=== PATIENT | male | born 1945 | race Caucasian/White ===

== ENCOUNTER → 2023-09-20 | Outpatient (CLI) | payer MEDICARE, SELFPAY ==
[2023-09-20 10:26] LABS: Absolute Lymphocyte Count 2.02 X10^3/uL (0.83-4.51); Basophil# 0.06 X10^3/uL; Hematocrit 40.1 % (40-54); Hemoglobin 13.3 g/dL (13.0-16.5); Lymphocyte # 2.02 X10^3/ul (0.83-4.51); Lymphocyte % 33.8 % (19-41); Mean Corp Hgb Conc 33.2 g/dL (32-36); Mean Corpuscular Hgb 30.3 pg (27.0-32.0); Mean Corpuscular Volume 91.3 fL (80-94); Mean Platelet Vol. 10.9 fl (6.2-12.0); Monocyte# 0.63 X10^3/uL; Monocyte% 10.6 % (0-10); NRBC Flagged by Analyzer 0 % (0-5); Neutrophil # 2.95 X10^3/uL (2.7-7.7); Neutrophil % 49.4 % (47-70); Platelet Count 233 K/mm3 (150-450); RBC Distribution Width SD 43.6 fl (35.1-43.9); Red Blood Count 4.39 M/mm3 (4.6-6.2)
[2023-09-20 10:44] LABS: ALB/GLOB Ratio 1.1 RATIO (0.9-2.4); AST(SGOT) 15 U/L (15-37); Alanine Aminotransfer ALT/SGPT 11 U/L (16-61); Albumin, Serum 3.6 g/dL (3.2-5.0); Alkaline Phosphatase 68 U/L (45-117); Anion Gap 6 (5-15); BUN 14 mg/dL (7-18); BUN/Creat Ratio 12.8 RATIO (10-20); Calcium,Total 8.8 mg/dL (8.5-10.1); Chloride 104 mmol/L (98-107); Cholesterol 173 mg/dL (200); Creatinine, Serum 1.09 mg/dL (0.70-1.30); EST Glomerular Filtration Rate 69 mL/min (>60); Est Glom Filt Rate - Afr Amer 84 mL/min (>60); Globulin 3.3 g/dL (2.2-4.2); Glucose 102 mg/dL (74-106); High Density Lipoprotein 45 mg/dL; PSA,Total - Annual Screen 1.64 ng/mL (0.00-4.00); Protein, Total 6.9 g/dL (6.4-8.2); Sodium Level 134 mmol/L (136-145); T4 Free Direct 1.22 ng/dL (0.76-1.46); Thyroid Stim Hormone (TSH) 2.43 uIU/mL (0.358-3.74); Triglycerides 90 mg/dL; Very Low Density Lipoprotein 18 mg/dL (5-40)
== END | disposition home or self-care (01) ==
LOC: MFPLAB 08:13
PROVIDERS: PCP Family Medicine; Visit Provider Family Medicine
DX: K21.9 Gastro-esophageal reflux disease without esophagitis (principal); G20.C Parkinsonism, unspecified; E03.9 Hypothyroidism, unspecified; N40.0 Benign prostatic hyperplasia without lower urinary tract symptoms; Z12.5 Encounter for screening for malignant neoplasm of prostate
CPT/HCPCS: 36415; 80053; 80061; 84153; 84439; 84443; 85025; G0103

== ENCOUNTER 2024-03-11 04:05 | Emergency (ER) | payer MEDICARE, SELFPAY ==
[2024-03-11 04:06] VITALS: BP 151/76; PULSE 66; RESP 18; TEMP 36; O2SAT 97; BMI 25.9
--- NOTE | 2024-03-11 04:51 | RAD_ITS ---
INDICATION: constipation EXAMINATION/TECHNIQUE: X-RAY - XR Abdomen Series W/ Chest 1 View COMPARISON: Abdominal x-ray 03/05/2024 FINDINGS: AP supine and upright views of the abdomen, and upright view of the chest. The bowel gas pattern is normal. There is no bowel obstruction or free intraperitoneal air. Moderate amount of stool throughout the colon, especially the left colon to the rectum. No abnormal mass or calcification is seen. Degenerative changes of the lumbar spine. The lungs are clear. Cardiac silhouette is normal size. RAD/Acute Abdomen Inc Chest IMPRESSION: No bowel obstruction. No infiltrates.. Electronically Signed: Lexie Rasmussen MD at 5:31 EDT ,
--- NOTE | 2024-03-11 06:19 | EDS_ITS ---
HPI History of Present Illness Chief Complaint: Constipation Informant: patient and spouse/S.O. Narrative Narrative: Patient is an 79-year-old male with past medical history of Parkinson's disease hypothyroidism BPH and chronic constipation. He is on Linzess and still takes lactulose 30 ml 3 times a day. He states he has been taking his medication as directed. He reports he used a salt water enema and was able to have a small bowel movement the other day. He states however that typically when he takes his lactulose he is able to have a bowel movement and as he has not been able to do so comes in for evaluation. He denies any history of intestinal cancer and he only reports 1 abdominal surgery with a ventral hernia repair a few years ago [facility] Medical History (Updated 03/11/24 @ 08:[address] Lamont Barrett, ) Celiac disease Home Medications ?Medication ?Instructions ?Recorded ?Last Taken ?Type bisacodyl 10 mg rectal suppository 10 mg MD DAILY PRN constipation 03/05/24 Unknown Rx (Dulcolax (bisacodyl)) #12 ea carbidopa ER 25 mg-levodopa 100 mg 1 tab PO TID 03/05/24 Unknown History tablet,extended release lactulose 10 gram/15 mL oral 30 ml PO TID 03/05/24 Unknown History solution levothyroxine 50 mcg tablet 50 mcg PO QDAY 03/05/24 Unknown History linaclotide 145 mcg capsule 290 mcg PO QDAY 03/05/24 Unknown History (Linzess) magnesium citrate 125 mg capsule 125 mg PO ONCE #2 caps 03/05/24 Unknown Rx omeprazole 40 mg capsule,delayed 40 mg PO QDAY 03/05/24 Unknown History release propranolol 20 mg tablet 20 mg PO BID 03/05/24 Unknown History sennosides 8.6 mg tablet (senna) 8.6 mg PO BID 03/05/24 Unknown History tamsulosin 0.4 mg capsule 0.4 mg PO BID 03/05/24 Unknown History Allergy/AdvReac Type Severity Reaction Status Date / Time No Known Allergies Allergy Verified 09/25/23 08:19 Social History Smoking Status: Former smoker ROS ROS ED Constitutional Constitutional ED: Denies chills or fever(s) ENT ENT ED: Denies sore throat Cardiovascular Cardiovascular: Denies chest pain Respiratory/Chest Respiratory/Chest: Denies cough or dyspnea Gastrointestinal Gastrointestinal: Reports abdominal pain and constipation; Denies diarrhea, nausea or vomiting Genitourinary Genitourinary ED: Denies dysuria Musculoskeletal Musculoskeletal: Denies myalgias Integumentary Denies rash Neurologic Neurologic: Denies headache(s) Hematologic/Lymphatic Hematologic/Lymphatic: Denies easy bleeding or easy bruising EXAM Physical Exam Const Vital Signs: 03/11/24 04:06 03/11/24 06:37 03/11/24 06:37 Temperature 96.8 F L 98.2 F Temperature Source Temporal Pulse Rate 66 75 75 Respiratory Rate 18 16 16 Blood Pressure 151/76 H 148/74 H 148/74 H Blood Pressure Mean 101 98 98 Pulse Ox 97 97 97 Oxygen Delivery Method Room Air Room Air Positive well nourished and well developed General Appearance ED: well developed; Negative for pallor HEENT HEENT Narrative: Normocephalic atraumatic Eyes PERRL and EOMs intact bilaterally General Eye ED: Negative for scleral icterus Neck supple Neck Narrative: No nuchal rigidity or meningeal signs Resp normal respiratory effort and clear to auscultation bilaterally Cardio regular rate and regular rhythm GI non-tender and non-distended GI Narrative: Abdomen is soft nontender and nondistended with hypoactive bowel sounds. No voluntary guarding or rigidity No pulsatile mass or fluid wave No increased tympany noted Auscultation: hypoactive bowel sounds Palpation: soft Extremity normal to inspection Neuro oriented x3 and CN's II-XII intact bilaterally Sensorium / Orientation: alert Psych mental status grossly normal Skin no rashes or lesions noted and no wounds Skin Narrative: Skin turgor is slightly increased General Skin Exam: Negative for jaundice or pallor MDM MDM MDM Narrative Medical decision making narrative: Patient presented to the ER hypertensive otherwise with stable vitals. He reported a longstanding history of constipation despite taking Linzess and la ctulose. He denies any history of intestinal cancer and has had only 1 abdominal surgery and is low risk for obstruction. He denies any vomiting and he states he still able to pass flatus going against obstruction. However as this is a potential in the differential obstruction versus ileus versus obstipation a x-ray was obtained. X-ray revealed large amount of stool without any other focal deficit or finding. Secondary to his longstanding history of symptoms despite taking multiple medications and the fact there is no signs of obstruction or infection I do not feel there is need for further workup. Patient will be given GoLytely to help stimulate a bowel movement but is otherwise safe for discharge. History & Record Review Discussion w/independent historian: Patient and Significant other Radiography Diagnostic Testing: Clinical Impression(s) from Imaging Studies Acute Abdomen Series 03/11/24 04:51 IMPRESSION: No bowel obstruction. No infiltrates.. Electronically Signed: Lexie Rasmussen MD at 5:31 EDT , Acute abdominal series with 1 view chest as interpreted by the emergency medicine physician reveals a large amount of stool throughout the transverse and descending colon and the rectum without air-fluid levels to suggest obstruction or perforation and chest x-ray component reveals no acute infiltrate or pneumothorax Discharge Plan Triage Chief Complaint: Constipation ED Provider: Lamont Barrett Dx/Rx/DC Orders Clinical Impression: Obstipation, Parkinson's disease, Hypothyroidism, BPH (benign prostatic hyperplasia) Instructions: Treating Constipation, ED Constipation (Adult) Prescriptions: No Action levothyroxine 50 mcg tablet 50 mcg PO QDAY Linzess 145 mcg capsule 290 mcg PO QDAY propranolol 20 mg tablet 20 mg PO BID carbidopa-levodopa 25-100 mg tablet extended release 1 tab PO TID lactulose 10 gram/15 mL solution 30 ml PO TID Patient Comments: pt reports taking med once a day recently omeprazole 40 mg capsule,delayed release(DR/EC) 40 mg PO QDAY tamsulosin 0.4 mg capsule 0.4 mg PO BID sennosides [senna] 8.6 mg tablet 8.6 mg PO BID bisacodyl [Dulcolax (bisacodyl)] 10 mg suppository 10 mg MD DAILY PRN (Reason: constipation) Qty: 12 0RF magnesium citrate 125 mg capsule 125 mg PO ONCE Qty: 2 0RF Rx Instructions: Take 2 glasses of water with each administration. Primary Care Provider: Eloina Chi Referrals: Eloina Chi MD [Primary Care Provider] - Activity Restrictions/Additional Instructions: Please drink the GoLytely solution that was provided in the ER to help stimulate a bowel movement. After the medication help you have a bowel movement you will continue your lactulose to try and prevent reoccurrence. Follow-up with your family doctor for repeat evaluation and return to the ER should you have any further concerns Print Language: Malaysian Disposition Disposition: Home, Self Care Discharge Date/Time: 03/11/24 06:39
[2024-03-11] MEDS: Electrolyte Solution/Peg's 4000 ML 2000 ML PO (06:33)
[2024-03-11 06:37] VITALS: BP 148/74; PULSE 75; RESP 16; TEMP 36.8; O2SAT 97
== END 2024-03-11 06:39 | disposition home or self-care (01) ==
PROVIDERS: Emergency Provider Emergency Medicine; PCP Family Medicine; Visit Provider Emergency Medicine
DX: K59.00 Constipation, unspecified (principal); G20.C Parkinsonism, unspecified; E03.9 Hypothyroidism, unspecified; N40.0 Benign prostatic hyperplasia without lower urinary tract symptoms; Z79.899 Other long term (current) drug therapy; Z87.891 Personal history of nicotine dependence
CPT/HCPCS: 74022; 99282

== ENCOUNTER 2024-03-26 06:37 | Emergency (ER) | payer MEDICARE, SELFPAY ==
[2024-03-26 06:38] VITALS: BP 131/72; PULSE 66; RESP 18; TEMP 36.1; O2SAT 98; BMI 25.4
--- NOTE | 2024-03-26 07:09 | RAD_ITS ---
STUDY: X-RAY - ABDOMEN/PELVIS REASON FOR EXAM: Male, 79 years old. Constipation TECHNIQUE: Single AP view of the abdomen / pelvis. COMPARISON: None. FINDINGS: Normal visualized lung bases. There is an abundance of fecal material throughout the colon. The visualized liver, spleen and kidneys are grossly normal in size and morphology. There are calcified phleboliths in the pelvis. There are degenerative changes of the visualized lumbar spine. RAD/Abdomen Single View IMPRESSION: Large amount of fecal material is seen in the colon. Electronically Signed: Wes Sutton MD at 8:03 EDT ,
--- NOTE | 2024-03-26 07:12 | EX.ED.DYSGE1 ---
HPI History of Present Illness Chief Complaint: Constipation Informant: patient and spouse/S.O. Narrative Narrative: 79-year-old male presenting to the emergency room with chronic constipation. Patient states this has been going on most of his life. He notes his last bowel movement was Saturday. Patient tried some magnesium citrate last night has not yet had a bowel movement. He states he felt like he was going to have 1 this morning after an enema but the stool stopped short of expulsion. He denies any cramping. No vomiting. He has been eating and drinking normally. He takes lactulose daily. He sees Dr. Lazaro for gastroenterology and is started Linzess. [facility] Medical History Celiac disease Home Medications ?Medication ?Instructions ?Recorded ?Last Taken ?Type bisacodyl 10 mg rectal suppository 10 mg HI DAILY PRN constipation 03/05/24 Unknown Rx (Dulcolax (bisacodyl)) #12 ea carbidopa ER 25 mg-levodopa 100 mg 1 tab PO TID 03/05/24 Unknown History tablet,extended release lactulose 10 gram/15 mL oral 30 ml PO TID 03/05/24 Unknown History solution levothyroxine 50 mcg tablet 50 mcg PO QDAY 03/05/24 Unknown History linaclotide 145 mcg capsule 290 mcg PO QDAY 03/05/24 Unknown History (Linzess) magnesium citrate 125 mg capsule 125 mg PO ONCE #2 caps 03/05/24 Unknown Rx omeprazole 40 mg capsule,delayed 40 mg PO QDAY 03/05/24 Unknown History release propranolol 20 mg tablet 20 mg PO BID 03/05/24 Unknown History sennosides 8.6 mg tablet (senna) 8.6 mg PO BID 03/05/24 Unknown History tamsulosin 0.4 mg capsule 0.4 mg PO BID 03/05/24 Unknown History peg 3350-electrolytes 236 240 ml PO Q1H PRN constipation 03/26/24 Unknown Rx gram-22.74 gram-6.74 gram-5.86 #4,000 mL gram solution (Golytely) Allergy/AdvReac Type Severity Reaction Status Date / Time No Known Allergies Allergy Verified 03/26/24 06:37 Social History Smoking Status: Former smoker ROS ROS ED Constitutional Constitutional ED: Denies chills, fever(s) or weight loss Eyes Eyes: Denies change in vision or diplopia ENT ENT ED: Denies ear pain, rhinorrhea or sore throat Cardiovascular Cardiovascular: Denies chest pain, orthopnea, palpitations or racing heartbeat Respiratory/Chest Respiratory/Chest: Denies cough, dyspnea or orthopnea Gastrointestinal Gastrointestinal: Reports constipation; Denies abdominal pain, diarrhea, nausea or vomiting Genitourinary Genitourinary ED: Denies dysuria, hematuria or urinary frequency Musculoskeletal Musculoskeletal: Denies arthralgias, back pain or myalgias Integumentary Denies abscess or rash Neurologic Neurologic: Denies headache(s) or weakness Psychiatric Psychiatric: Denies anxiety, depression, suicidal ideation or suicidal thoughts Endocrine Endocrinology: Denies polydipsia, polyphagia or polyuria Allergic/Immunologic Allergic/Immunologic ED: Denies mouth swelling, tongue swelling or urticaria EXAM Physical Exam Const Vital Signs: 03/26/24 06:38 03/26/24 10:42 Temperature 96.9 F L 97.4 F L Temperature Source Temporal Oral Pulse Rate 66 81 Respiratory Rate 18 16 Blood Pressure 131/72 H 127/88 H Blood Pressure Mean 91 101 Pulse Ox 98 95 Oxygen Delivery Method Room Air Room Air Positive well nourished and well developed General Appearance ED: well developed HEENT Reports normocephalic, head/scalp atraumatic and moist mucous membranes Eyes PERRL and EOMs intact bilaterally Neck no lymphadenopathy, supple and no JVD Resp normal respiratory effort and clear to auscultation bilaterally Cardio regular rate, regular rhythm and no murmurs GI normal to inspection, nondistended, normoactive bowel sounds and non-tender Auscultation: normoactive bowel sounds Palpation: soft Back/Spine no CVA tenderness and normal ROM Extremity normal to inspection General Extremety ED: Negative for edema General Extremity: Negative for edema Neuro oriented x3 and CN's II-XII intact bilaterally Sensorium / Orientation: alert Motor Exam: strength 5/5 throughout Psych mental status grossly normal Mood & Affect: Negative for depressed or tearful Skin no rashes or lesions noted and no wounds MDM MDM MDM Narrative Medical decision making narrative: Differential diagnosis includes but not limited to fecal impaction chronic constipation sigmoid volvulus perforated viscus My independent interpretation of the plain film of the abdomen is large fecal burden. There is no obvious impaction. There is large amount of air in the rectal space. Patient received an enema. Prior to the enema he had a bowel movement. After the enema he had a bowel movement. Nursing reports that the stool is very soft. Patient will be discharged home with some GoLytely. The goal is not to perform a full colon cleanse but rather to stimulate for expulsion of the large amount of stool gently. This is a chronic problem for the patient. Probably recommend continued GI follow-up in the future History & Record Review Discussion w/independent historian: Patient and Family Radiography Diagnostic Testing: Clinical Impression(s) from Imaging Studies KUB X-Ray 03/26/24 07:09 IMPRESSION: Large amount of fecal material is seen in the colon. Electronically Signed: Wes Sutton MD at 8:03 EDT , Discharge Plan Triage Chief Complaint: Constipation ED Provider: Edis Berger Dx/Rx/DC Orders Clinical Impression: Constipation Instructions: ED Constipation (Adult) Prescriptions: New peg 3350-electrolytes [Golytely] 236-22.74-6.74 -5.86 gram recon soln 240 ml PO Q1H PRN (Reason: constipation) Qty: 4000 0RF Rx Instructions: until fecal effluent is clear No Action levothyroxine 50 mcg tablet 50 mcg PO QDAY Linzess 145 mcg capsule 290 mcg PO QDAY propranolol 20 mg tablet 20 mg PO BID carbidopa-levodopa 25-100 mg tablet extended release 1 tab PO TID lactulose 10 gram/15 mL solution 30 ml PO TID Patient Comments: pt reports taking med once a day recently omeprazole 40 mg capsule,delayed release(DR/EC) 40 mg PO QDAY tamsulosin 0.4 mg capsule 0.4 mg PO BID sennosides [senna] 8.6 mg tablet 8.6 mg PO BID bisacodyl [Dulcolax (bisacodyl)] 10 mg suppository 10 mg HI DAILY PRN (Reason: constipation) Qty: 12 0RF magnesium citrate 125 mg capsule 125 mg PO ONCE Qty: 2 0RF Rx Instructions: Take 2 glasses of water with each administration. Primary Care Provider: Eloina Chi Referrals: Eloina Chi MD [Primary Care Provider] - 1-2 Weeks Print Language: Montserratian Disposition Disposition: Home, Self Care
[2024-03-26 10:42] VITALS: BP 127/88; PULSE 81; RESP 16; TEMP 36.3; O2SAT 95
== END 2024-03-26 11:39 | disposition home or self-care (01) ==
PROVIDERS: Emergency Provider Emergency Medicine; PCP Family Medicine; Visit Provider Emergency Medicine
DX: K59.00 Constipation, unspecified (principal); Z87.891 Personal history of nicotine dependence
CPT/HCPCS: 74018; 99284

== ENCOUNTER 2024-05-09 06:12 | Emergency (ER) | payer MEDICARE, SELFPAY ==
[2024-05-09 06:13] VITALS: BP 148/92; PULSE 72; RESP 16; TEMP 36.1; O2SAT 94; BMI 24.7
[2024-05-09 06:14] VITALS: BP 157/80; PULSE 75; RESP 14; TEMP 36.8; O2SAT 96
--- NOTE | 2024-05-09 06:14 | CT_ITS ---
STUDY: CTA HEAD AND NECK WITH CONTRAST REASON FOR EXAM: Male, 79 years old patient with acute neurologic deficit. Acute stroke suspected. RADIATION DOSAGE (If Supplied By Facility): CTDIvol = ( 22.78 ) mGy, DLP = ( 670.11 ) mGycm TECHNIQUE: CT angiography was performed with a multi-detector CT scanner. Data acquisition was obtained from the skull base through the vertex following intravenous administration of 100 mL of Isovue-370. MIP images were reconstructed from the axial data set. Post-processing of the angiographic images was performed, with multiplanar reformation and 3D reconstruction. Individualized dose optimization techniques were used for this CT. COMPARISON: No relevant priors. FINDINGS: Normal bilateral petrous carotid arteries. There is calcified plaque formation of the right cavernous carotid artery, without a cross-sectional luminal stenosis. There is calcified plaque formation of the left cavernous carotid artery, without a cross-sectional luminal stenosis. Normal right A1 segments of the anterior cerebral artery. Normal left A1 segments of the anterior cerebral artery. There is non-visualization of the anterior communicating artery (ACOM). Normal bilateral A2 segments of the anterior cerebral arteries. Normal right M1 and M2 segments of the middle cerebral arteries, with a normal M1 bifurcation. Normal left M1 and M2 segments of the middle cerebral arteries, with a normal M1 bifurcation. There is non-visualization of the right posterior communicating artery (PCOM). There is non-visualization of the left posterior communicating artery (PCOM). There is a small right vertebral artery with a dominant left vertebral artery. Normal basilar artery with a normal basilar bifurcation. The visualized bilateral superior cerebellar (SCA) arteries are normal. Normal bilateral P1, P2 and visualized P3 segments of the posterior cerebral arteries. There is no demonstrated aneurysm of the osage of Luz. There is no demonstrated abnormality of the visualized brain. AORTIC ARCH: Normal visualized aortic arch. There is mild atherosclerotic calcification of the thoracic aorta. Normal origins of the brachiocephalic, left common carotid, and left subclavian arteries. RIGHT CAROTID ARTERIES: Normal right common carotid artery (CCA). There is mild atherosclerotic plaque formation with minimal narrowing of the right carotid bulb. Normal origin of the right internal carotid (ICA) artery without a hemodynamically significant stenosis. There is atherosclerotic tortuous elongation of the cervical portion of the right internal carotid artery. Normal origin of the right external carotid artery (ECA). LEFT CAROTID ARTERIES: There is atherosclerotic tortuous elongation of the left common carotid artery. Normal left common carotid bulb. Normal origin of the left internal carotid (ICA) artery without a hemodynamically significant stenosis. Normal visualized cervical portion of the left internal carotid artery. Normal origin of the left external carotid artery (ECA). VERTEBRAL ARTERIES: Normal bilateral vertebral arteries. NECK ANATOMY: Appears to be dependent atelectasis. The trachea is within normal limits. The thyroid has a grossly normal appearance. Visualized parotid and submandibular glands are grossly normal appearance. Nasopharynx, oropharynx, hypopharynx and larynx and subglottic trachea appear grossly normal appearance. There are multilevel degenerative changes of the cervical spine with disc space narrowing and endplate osteophytes. There is multilevel degenerative arthropathy of the cervical spine. CT/STROKE CTA Head AND Neck W/Con IMPRESSION: No CT evidence for hemodynamically significant stenosis, thrombosis or aneurysm. N.B. : The above Results were Read Back by Rosalia Natarajan MD to Lamont Barrett DO, and understanding confirmed on 05/09/2024 06:52:09 (ET). Electronically Signed: Rosalia Natarajan MD at 6:53 EDT ,
--- NOTE | 2024-05-09 06:14 | RAD_ITS ---
STUDY: X-RAY CHEST REASON FOR EXAM: Male, 79 years old patient with acute neurologic deficit. Acute stroke suspected. TECHNIQUE: Single AP portable view of the chest. COMPARISON: Prior comparable comparison studies are not available for review at this time. FINDINGS: There are prominent bronchovascular markings in both lungs. The lungs are expanded. There is no demonstrated pleural abnormality. Normal size heart. Normal mediastinum and dina. There is prominence of the pulmonary hilar arteries with peripheral pulmonary vascular congestion. There is atherosclerotic calcification of the aortic arch with tortuosity. Normal visualized thoracic spine. Normal visualized ribs, clavicles, and shoulders. There is no demonstrated abnormality of the visualized soft tissue structures of the upper abdomen. RAD/Chest 1 View IMPRESSION: Mild pulmonary vascular congestion. Electronically Signed: Rosalia Natarajan MD at 8:05 EDT ,
--- NOTE | 2024-05-09 06:14 | CT_ITS ---
INDICATION: Neuro deficit, acute, stroke suspected EXAMINATION: CT BRAIN - CT Head Stroke Protocol W/O Contrast Injection TECHNIQUE: Serial CT axial images were obtained of the head without intravenous contrast. A radiation dose optimization technique was used for this scan. COMPARISON: None. Findings: Serial CT axial images of the head without contrast. BRAIN PARENCHYMA: Diffuse periventricular hypoattenuation likely chronic white matter ischemic changes. Moderate diffuse volume loss. No evidence of intraparenchymal hemorrhage or hyperattenuating extra-axial fluid collection. VASCULAR STRUCTURES: Atherosclerotic vascular calcifications. BONES: Frontoethmoid sinus mucosal thickening. SCALP/REMAINING SOFT TISSUES: Unremarkable. ASPECTS Score for Acute Strokes, if applicable: 10 CT/STROKE Brain/Head without Cont IMPRESSION: Age-related changes as above, without evidence of acute intracranial hemorrhage in this noncontrast head CT. N.B. : The above Results were Read Back by Raz Sims MD to Lamont Barrett DO, and understanding confirmed on 05/09/2024 06:47:56 (ET). Electronically Signed: Raz Sims MD at 6:31 EDT ,
--- NOTE | 2024-05-09 06:14 | EKG12_ITS ---
Test Reason : NEURO Blood Pressure : / mmHG Vent. Rate : 073 BPM Atrial Rate : 000 BPM P-R Int : 000 ms QRS Dur : 074 ms QT Int : 382 ms P-R-T Axes : 000 -15 -08 degrees QTc Int : 420 ms Sinus Arrythmia Nonspecific ST and T wave abnormality Abnormal ECG No previous ECGs available Confirmed by DIANELYS HARDEN, CRISTIANO ([id number]), department editor JONEL ERVIN ([id number]) on 05/12/2024 2:08:02 PM Referred By: Confirmed By:ISHAN IVORY MD
[2024-05-09 06:18] VITALS: BP 148/92; PULSE 72; RESP 16; O2SAT 94
[2024-05-09 06:22] VITALS: BMI 24.7
[2024-05-09 06:22] LABS: Absolute Lymphocyte Count 2.19 X10^3/uL (0.83-4.51); Absolute Neutrophil Count 4.9 X10^3/uL (2.0-7.7); Basophil# 0.05 X10^3/uL; Basophil% 0.6 % (0-1); Eosinophil# 0.27 X10^3/uL; Eosinophils% 3.3 % (0-5); Hematocrit 40.9 % (40-54); Hemoglobin 13.9 g/dL (13.0-16.5); Lymphocyte # 2.19 X10^3/ul (0.83-4.51); Lymphocyte % 26.8 % (19-41); Mean Corpuscular Hgb 30.4 pg (27.0-32.0); Mean Corpuscular Volume 89.5 fL (80-94); Mean Platelet Vol. 9.5 fl (6.2-12.0); Monocyte# 0.72 X10^3/uL; Monocyte% 8.8 % (0-10); NRBC Flagged by Analyzer 0 % (0-5); Neutrophil # 4.93 X10^3/uL (2.7-7.7); Neutrophil % 60.3 % (47-70); Platelet Count 230 K/mm3 (150-450); RBC Distribution Width CV 12.6 % (11.6-14.6); RBC Distribution Width SD 41.1 fl (35.1-43.9); Red Blood Count 4.57 M/mm3 (4.6-6.2); White Blood Count 8.2 K/mm3 (4.4-11.0)
[2024-05-09 06:28] LABS: Partial Thromboplast Time 25.9 Seconds (24.1-36.2); Prothrombin Time (Protime)PT. 13.5 SECONDS (11.7-14.9)
[2024-05-09 06:42] LABS: Anion Gap 4 (5-15); BUN 11 mg/dL (7-18); BUN/Creat Ratio 9.9 RATIO (10-20); Calcium,Total 9.2 mg/dL (8.5-10.1); Chloride 102 mmol/L (98-107); Creatinine, Serum 1.11 mg/dL (0.70-1.30); EST Glomerular Filtration Rate 68 mL/min (>60); Est Glom Filt Rate - Afr Amer 82 mL/min (>60); Estimated Creatinine Clearance 51.35 ml/min; Glucose 113 mg/dL (74-106); Sodium Level 133 mmol/L (136-145); Thyroid Stim Hormone (TSH) 2.72 uIU/mL (0.358-3.74)
[2024-05-09 06:44] VITALS: BP 141/73; PULSE 80; RESP 17; O2SAT 96
--- NOTE | 2024-05-09 07:10 | EX.ED.DYSGE1 ---
HPI History of Present Illness Chief Complaint: Stroke Alert Informant: patient, spouse/S.O. and EMS Narrative Narrative: Patient is an 79-year-old male with past medical history of hypothyroidism BPH and Parkinson's disease. states that the patient got up this morning around 5 AM which she normally does and told her that he just felt tired. He reportedly went to lay on the couch and roughly 30 minutes later got up and according to the he had difficulty with word finding as he repeated just I can't a few times and despite prompting from his could not complete the sentence or form other words. The patient states that he remembers this event and states that he did not complete the sentence because he simply could not find the words and not because the words would not translate from his brain to his mouth. As there was concern this was an acute stroke EMS was called. Otherwise patient reports feeling normal without fevers chills cough shortness of breath abdominal pain nausea vomiting diarrhea or dysuria. He also reports that he is been taking his medications as directed [id number] Medical History Celiac disease Home Medications ?Medication ?Instructions ?Recorded ?Last Taken ?Type carbidopa ER 25 mg-levodopa 100 mg 1 tab PO TID 03/05/24 Unknown History tablet,extended release levothyroxine 50 mcg tablet 50 mcg PO QDAY 03/05/24 Unknown History omeprazole 40 mg capsule,delayed 40 mg PO QDAY 03/05/24 Unknown History release propranolol 20 mg tablet 20 mg PO BID 03/05/24 Unknown History sennosides 8.6 mg tablet (senna) 8.6 mg PO BID PRN constipation 03/05/24 Unknown History tamsulosin 0.4 mg capsule 0.4 mg PO BID 03/05/24 Unknown History guar gum (Nutrisource Fiber packet) 1 tbsp PO TID PRN bowels 05/09/24 Unknown History polyethylene glycol 3350 17 17 g PO DAILY 05/09/24 Unknown History gram/dose oral powder (ClearLax) prucalopride 2 mg tablet 2 mg PO DAILY 05/09/24 Unknown History (Motegrity) Allergy/AdvReac Type Severity Reaction Status Date / Time No Known Allergies Allergy Verified 05/09/24 06:22 Social History Smoking Status: Former smoker ROS ROS ED Constitutional Constitutional ED: Denies chills or fever(s) Eyes Eyes: Denies blurry vision or change in vision ENT ENT ED: Denies sore throat Cardiovascular Cardiovascular: Denies chest pain Respiratory/Chest Respiratory/Chest: Denies cough or dyspnea Gastrointestinal Gastrointestinal: Denies abdominal pain, diarrhea, nausea or vomiting Genitourinary Genitourinary ED: Denies dysuria Musculoskeletal Musculoskeletal: Denies myalgias Integumentary Denies rash Neurologic Neurologic: Denies headache(s), paresthesias or weakness Hematologic/Lymphatic Hematologic/Lymphatic: Denies easy bleeding or easy bruising EXAM Physical Exam Const Vital Signs: 05/09/24 06:13 05/09/24 06:14 05/09/24 06:18 Temperature 97 F L 98.2 F Temperature Source Temporal Oral Pulse Rate 72 75 72 Respiratory Rate 16 14 16 Blood Pressure 148/92 H 157/80 H 148/92 H Blood Pressure Mean 110 105 110 Pulse Ox 94 96 94 Oxygen Delivery Method 05/09/24 06:28 05/09/24 06:44 05/09/24 07:12 Temperature 98.1 F Temperature Source Temporal Pulse Rate 80 70 Respiratory Rate 17 16 Blood Pressure 141/73 H 129/75 H Blood Pressure Mean 95 93 Pulse Ox 96 99 Oxygen Delivery Method Room Air Room Air Room Air 05/09/24 07:29 Temperature 98.1 F Temperature Source Pulse Rate 70 Respiratory Rate 16 Blood Pressure 129/75 H Blood Pressure Mean 93 Pulse Ox 99 Oxygen Delivery Method Positive well nourished and well developed General Appearance ED: well developed; Negative for pallor HEENT HEENT Narrative: Normocephalic atraumatic Eyes PERRL and EOMs intact bilaterally General Eye ED: Negative for scleral icterus Neck supple Neck Narrative: No nuchal rigidity or meningeal signs noted Resp normal respiratory effort and clear to auscultation bilaterally Resp Narrative: No nasal flaring retractions tachypnea or accessory muscle use Cardio regular rate and regular rhythm Rate: other Other Details: Heart is regular rate and rhythm Radial and carotid pulses are equal and symmetric GI normal to inspection, nondistended, normoactive bowel sounds, non-tender, non-distended and no masses GI Narrative: No voluntary guarding or rigidity or pulsatile mass. No organomegaly noted Auscultation: normoactive bowel sounds Palpation: soft Extremity normal to inspection Neuro oriented x3, CN's II-XII intact bilaterally and no sensory deficits noted Neuro Narrative: Upon arrival to the ER the patient is awake alert and oriented to person place and time GCS of 15 Cranial nerves II through XII are grossly intact without focal neurologic deficit No pronator drift no dysmetria no truncal ataxia No extremity weakness NIH stroke scale score of 0 No dysphagia or dysarthria noted Sensorium / Orientation: alert Motor Exam: strength 5/5 throughout Psych Psych Narrative: Patient has a flat affect consistent with history of Parkinson's disease Skin no rashes or lesions noted General Skin Exam: Negative for jaundice or pallor MDM MDM MDM Narrative Medical decision making narrative: Patient arrived to the ER slightly hypertensive but otherwise with stable vitals. By the time he arrived to the ER he had resolution of symptoms and stroke scale score of 0. Still based on the fact that and EMS reported he was slow to respond and having difficulty with words a stroke alert was activated and he underwent a CT and CTA. CT revealed no acute bleed and CT revealed no significant stenosis dissection or aneurysm within the head or neck. Lab work revealed no clinically significant findings such as leukocytosis acute kidney injury or electrolyte abnormality. Chest x-ray revealed no signs of infection such as pneumonia which the fact that he does not have cough fevers chills or shortness of breath. Neurology from [facility] also evaluated the patient as is per stroke protocol. They agree that symptoms have resolved at this time and this may have been a TIA or exacerbations of Parkinson's. [facility] also agrees that with negative workup and unclear etiology of symptoms that patient could potentially be admitted to the hospital for further evaluation or had this worked up as an outpatient. I discussed this option with the patient and . As the patient's stroke scale score is 0 and he is at his baseline his lab work reveals no clinically significant findings and his imaging is normal patient and would prefer to have this done as an outpatient. Therefore he will be discharged at this time. They do agree to return for repeat evaluation if symptoms return or worsen in any way but this time as his vitals are stable his neurologic exam is normal with stroke scale score of 0 and his overall workup is negative including a CTA of the head neck he will be discharged and follow-up on an outpatient basis History & Record Review Discussion w/independent historian: EMS personnel, Patient and Significant other Lab Data Attestation: I reviewed the patient's lab results. Labs: Laboratory Results - last 24 hr 05/09/24 06:01 WBC 8.2 RBC 4.57 L Hgb 13.9 Hct 40.9 MCV 89.5 MCH 30.4 MCHC 34.0 RDW Std Deviation 41.1 RDW Coeff of Macho 12.6 Plt Count 230 MPV 9.5 Immature Gran % (Auto) 0.200 Neut % (Auto) 60.3 Lymph % (Auto) 26.8 [place] % (Auto) 8.8 Eos % (Auto) 3.3 Baso % (Auto) 0.6 Absolute Neuts (auto) 4.9 Absolute Lymphs (auto) 2.19 Nucleated RBC % 0 PT 13.5 INR 1.0 APTT 25.9 Sodium 133 L Potassium 4.0 Chloride 102 Carbon Dioxide 27.0 Anion Gap 4 L BUN 11 Creatinine 1.11 Estim Creat Clear Calc 51.35 Est GFR (MDRD) Af Amer 82 Est GFR (MDRD) Non-Af 68 BUN/Creatinine Ratio 9.9 L Glucose 113 H Calcium 9.2 TSH 2.72 Radiography Diagnostic Testing: Clinical Impression(s) from Imaging Studies Head/Neck CTA 05/09/24 06:14 IMPRESSION: No CT evidence for hemodynamically significant stenosis, thrombosis or aneurysm. N.B. : The above Results were Read Back by Rosalia Natarajan MD to Lamont Barrett DO, and understanding confirmed on 05/09/2024 06:52:09 (ET). Electronically Signed: Rosalia Natarajan MD at 6:53 EDT , ADDENDUM: 05/09/24 0700 IMPRESSION: No CT evidence for hemodynamically significant stenosis, thrombosis or aneurysm. N.B. : The above Results were Read Back by Rosalia Natarajan MD to Lamont Barrett DO, and understanding confirmed on 05/09/2024 06:52:09 (ET). Electronically Signed: Rosalia Natarajan MD at 6:53 EDT , Chest x-ray as interpreted by the emergency medicine physician reveals no acute infiltrate pneumothorax or pleural effusion Discharge Plan Triage Chief Complaint: Stroke Alert ED Provider: Lamont Barrett Dx/Rx/DC Orders Clinical Impression: Parkinson's disease, Stroke-like symptom, Hypothyroidism, BPH (benign prostatic hyperplasia) Instructions: Parkinson Common Symptoms, ED TIA: Transient Ischemic Attack Prescriptions: No Action levothyroxine 50 mcg tablet 50 mcg PO QDAY propranolol 20 mg tablet 20 mg PO BID carbidopa-levodopa 25-100 mg tablet extended release 1 tab PO TID omeprazole 40 mg capsule,delayed release(DR/EC) 40 mg PO QDAY tamsulosin 0.4 mg capsule 0.4 mg PO BID sennosides [senna] 8.6 mg tablet 8.6 mg PO BID PRN (Reason: constipation) Motegrity 2 mg tablet 2 mg PO DAILY polyethylene glycol 3350 [ClearLax] 17 gram/dose powder 17 g PO DAILY Nutrisource Fiber Packet 1 tbsp PO TID PRN (Reason: bowels) Rx Instructions: mix into at least 4 oz water or juice before administering Primary Care Provider: Eloina Chi Referrals: Eloina Chi MD [Primary Care Provider] - Activity Restrictions/Additional Instructions: Your workup today did not show any clinically significant lab abnormalities or signs of infection. Your CT scan showed no acute bleed or signs of blockages within your head or neck. Your symptoms could have been related to a transient ischemic attack/mini stroke or a exacerbation of your Parkinson's disease. Please continue all of your home medication as directed by your doctor and add a baby aspirin daily. Follow-up with your doctor as you may need a ultrasound of your carotid arteries and/or MRI. If you have any further concerns or worsening of symptoms please return to the ER for repeat evaluation Print Language: Iranian Disposition Disposition: Home, Self Care Discharge Date/Time: 05/09/24 07:30
[2024-05-09 07:12] VITALS: BP 129/75; PULSE 70; RESP 16; TEMP 36.7; O2SAT 99
--- NOTE | 2024-05-09 07:23 | ED.RN ---
pt being dc home and [facility] dc at this time
[2024-05-09 07:29] VITALS: BP 129/75; PULSE 70; RESP 16; TEMP 36.7; O2SAT 99
== END 2024-05-09 07:30 | disposition home or self-care (01) ==
PROVIDERS: Emergency Provider Emergency Medicine; PCP Family Medicine; Visit Provider Emergency Medicine
DX: G20.C Parkinsonism, unspecified (principal); E03.9 Hypothyroidism, unspecified; N40.0 Benign prostatic hyperplasia without lower urinary tract symptoms; Z79.899 Other long term (current) drug therapy; Z87.891 Personal history of nicotine dependence
CPT/HCPCS: 70450; 70496; 70498; 71045; 80048; 84443; 85025; 85610; 85730; 93005; 99285; Q9967; A4216

== ENCOUNTER 2024-12-23 09:37 | Outpatient (RCR) | payer MEDICARE, SELFPAY ==
--- NOTE | 2024-12-23 13:21 | ST ---
FIGURE 1. Dime-sized excrescence on left tonsil. White, jama, and black in color. Pitted/rough texture. Obtained image at speech therapy evaluation on 12/23/2024.
--- NOTE | 2024-12-23 13:24 | HP.SP.EV_ITS ---
Visit History Visit Info Date of Eval: 12/23/24 Visit: 1 [facility] Manager: JULIENNE Harvey Attending Doctor: Referring Doctor: Reason for Referral: DYSHPAGIA/RX HERE Previous speech therapy: No Other Relevant Medical History/Diagnoses/Surgery: GLENN BARCLAY is an 79 year old male who presents to [facility] d/t concerns with dysphagia per doctor's script. He was referred for the evaluation from Dr. Eloina Chi. Pt reporting an intermittent tickle and pain on the left side of his throat for the past 2-3 months. He has a hx of Parkinson's disease (dx about 3 years ago) along with GERD (dx for greater than 10 years). Glenn denies any difficulty with eating or drinking during PO intake. He also denies any difficulty when taking his medications. He was accompanied to his appt with his , Janel. Medications related to this diagnosis: Levothyroxine, Motegrity, tamsulosin, propanolol, carbidopa/levodopa, omeprazole Smoking Status: Never smoker Pain Is pain an issue with your current prescribed condition?: No Personal Preferred language: Citizen Of [place] Patient Allergies Allergies Allergies: Allergies No Known Allergies Allergy (Verified 10/04/24 08:10) Subjective Dysphagia Symptoms Reported Other: Intermittent pain on left side of throat Current Diet Solids Current Diet: Regular Current Diet Liquids Current Liquids: Thin Comments Oral Mechanism Exam: -: Prior to PO intake, Pt participated in oral mechanism exam. Pt with full ROM of oral musculature. Pt with symmetrical bilateral velar movement. OBSERVED A DIME-SIZED EXCRESCENCE ON THE LEFT TONSIL. MIXTURE OF WHITE, BOSS, AND BLACK IN COLOR. PITTED/ROUGH TEXTURE ON SURFACE. SURROUNDING TISSUE WAS RED AND ENDEMIC. SEE PHOTO BELOW. SUSPECT THIS MAY BE THE CAUSE OF THE PAIN PATIENT HAS BEEN EXPERIENCING. Education provided to patient and his re: recommendation to complete an evaluation with an ENT to determine pathology of the excrescence. Discussed having ENT refer back to speech therapy if they feel that would be appropriate. However given patient's report of no s/sx of penetration/aspiration with food, drinks, or medication, suspect this is the underlying cause of his pain/tickle. Education re: Dysphagia in Parkinson's Disease: -: Education was provided re: the potential for dysphagia to develop as his Parkinson's disease progresses. Provided examples of signs of dysphagia to pay attention to during PO consumption or the presence of aspiration pneumonia. Both patient and patient's acknowledge understanding. They reported that is why they were concerned today because they were aware this was a possibility. Discussed that if ENT felt they needed to return to speech therapy then we would likely acquire an instrumental evaluation to objectively assess swallow function. If not, then this would still be the plan in the future should he start to develop dysphagia symptoms. At the time of this evaluation, he has not participated in an instrumental evaluation. Objective Dysphagia Administered by Administered by: Self Thin Liquids Administred via: Cup Oral Transit: WNL Bolus clearance: fully cleared Gagging: No Cough: none observed/unable to assess Pharyngeal phase: immediate laryngeal elevation Comments: Pt consuming 3oz of water with consecutive swallows with no observed s/sx of penetration/aspiration. Impact Impact on Safety & Functioning: No Limitations Recommendations Modified Barium Swallow/Cookie Swallow Recommended: No Swallowing Treatment: No Diet Texture Recommendations Solids: Regular (Level 7) Liquids: Thin (Level 0) Results Swallowing Within Normal Limits: Yes (Swallow Function Grossly WNL) Modified Barium Results Hx If Applicable Enter into a NOTE MBS Results (from prior exam): 12/23/24 13:21 Speech Therapy by Adamaris Arias FIGURE 1. Dime-sized excrescence on left tonsil. White, boss, and black in color. Pitted/rough texture. Obtained image at speech therapy evaluation on 12/23/2024. Electronically signed by Adamaris Arias MJaidenSJaiden, CCC-HEALTH AND NUTRITION SPECIALIST on 12/23/24 13:23 Initialized on 12/23/24 13:21 - END OF NOTE Swallowing Performance Scale Swallowing Performance Scale Swallowing Performance Scale Result: 1 Normal Reference: Neuro-QoL instrument Radiation Oncology Patient Plan Plan Plan: Speech therapy is not warranted at this time. Recommended Glenn participate in an evaluation with ENT to determine pathology of the excrescence on his left tonsil. If ENT feels he should return to speech therapy after managing the excrescence, we will re-evaluate at that time. Recommendations Treatment Warranted: No Education Patient has Indicated that the Following Identified Educational Needs: None The Patient has indicated that they have no educational or learning abilities that may effect their care.: Yes Patient Instruction Patient Education: Diagnosis and Treatment Plan Person Taught: Patient and Family Teaching Method: Discussion, Demonstration and Teach Back Response to teaching: Return Demonstration and Verbalize Understanding
--- NOTE | 2025-05-27 13:26 | HP.SP.DC ---
ST Discharge Summary Discharged: Discharge: CARLOS BARCLAY is an 80 year old male who presented to [facility] on 12/23/2024 following a dx of suspected oral dysphagia. Pt attended initial evaluation when a Dime-sized excrescence on left tonsil that was White, jama, and black in color and Pitted/rough texture was observed during an oral mechanism exam. Recommended Pt follow up with ENT to determine pathology of the excrescence. Discussed returning to speech therapy if needed after the ENT appointment. Follow up visits were not scheduled by Pt or were no showed/canceled as of this date. Pt being discharged from speech therapy caseload on this date 05/27/2025 d/t Pt absence in attending additional treatment visits. Thank you for allowing me to participate in the care of your patient. Will reevaluate at Pt?s request following script from physician.
== END 2024-12-23 19:00 | disposition home or self-care (01) ==
LOC: SP 09:37
PROVIDERS: PCP Family Medicine; Referring Provider Family Medicine; Visit Provider Family Medicine
DX: R13.10 Dysphagia, unspecified (principal)
CPT/HCPCS: 92610

== ENCOUNTER 2024-12-26 17:13 | Emergency (ER) | payer MEDICARE, SELFPAY ==
[2024-12-26 17:15] VITALS: BP 138/82; PULSE 78; RESP 18; TEMP 36.6; O2SAT 97; BMI 27.1
--- NOTE | 2024-12-26 17:35 | CT_ITS ---
EXAM: BRAIN/HEAD WITHOUT CONTRAST CLINICAL HISTORY: TRAUMA COMPARISON: 04/2024 TECHNIQUE: Noncontrast head CT performed FINDINGS: Right frontal soft tissue swelling. Global volume loss detected. Mild chronic small vessel ischemic change noted. Encephalomalacia again seen in the left occipital lobe. No mass effect. No midline shift. Ethmoid sinus mucosal thickening. CT/Brain/Head without Contrast IMPRESSION: No acute traumatic findings. Senescent changes. Reading Location: [id number]
--- NOTE | 2024-12-26 17:35 | CT_ITS ---
PROCEDURE: SPINE CERVICAL WITHOUT CONTRAS REASON FOR EXAM: TRAUMA TECHNIQUE: Cervical spine CT without contrast. COMPARISON: None. FINDINGS: Scattered mild multilevel degenerative disc disease. There is no evidence of acute cervical spine fracture. Vascular calcification. Prevertebral soft tissues within normal limits. CT/Spine Cervical without Contras IMPRESSION: No findings of acute cervical spine fracture. One or more dose reduction techniques were used (e.g., Automated exposure contr ol, adjustment of the mA and/or kV according to patient size, use of iterative reconstruction technique). Reading Location: [id number]
--- NOTE | 2024-12-26 17:36 | ED.VIS.FALL ---
HPI HPI - Fall History of Present Illness Chief Complaint: Fall Narrative Narrative: 79-year-old male past medical history of Parkinson's disease, presents with his status post fall. His states that he took a header into the sidewalk. He must of tripped over his toes or caught his toe and fell forward. He sustained abrasions to his forehead and an avulsion injury to the bridge of his nose. He denies loss of consciousness. He was able to ambulate afterwards. This happened approximately an hour ago. He did complain of some right sided neck pain but denies other injuries except to his left hand. He sustained an abrasion to the back of his left hand at the base of the third/middle digit. He is unsure of his last tetanus immunization and thinks it may have been approximately 10 years ago or longer. He does not take blood thinners. [facility] Medical History Celiac disease Home Medications ?Medication ?Instructions ?Recorded ?Last Taken ?Type carbidopa ER 25 mg-levodopa 100 mg 1 tab PO TID 03/05/24 Unknown History tablet,extended release levothyroxine 50 mcg tablet 50 mcg PO QDAY 03/05/24 Unknown History omeprazole 40 mg capsule,delayed 40 mg PO QDAY 03/05/24 Unknown History release propranolol 20 mg tablet 20 mg PO BID 03/05/24 Unknown History tamsulosin 0.4 mg capsule 0.4 mg PO BID 03/05/24 Unknown History prucalopride 2 mg tablet 2 mg PO DAILY 05/09/24 Unknown History (Motegrity) Allergy/AdvReac Type Severity Reaction Status Date / Time gluten Allergy Abd Verified 12/26/24 17:15 cramps/diarrhea Social History Smoking Status: Former smoker ROS ROS ED ROS Narrative Review of systems positive for abrasion to forehead, small skin avulsion to bridge of nose, right sided neck pain that resolved. Abrasion to dorsum of left hand with tenderness. Denies loss of consciousness, no prodromal symptoms, no other injuries. EXAM Physical Exam Narrative Exam Narrative: GCS 15. ABCs intact. HEENT examination does show an abrasion without active bleeding to the middle of the forehead with less than 0.5 cm skin avulsion to the bridge of the nose without active bleeding. Cardiovascular examination feels a regular rate and rhythm. Lungs are clear to auscultation bilaterally. Abdomen soft nontender with normoactive bowel sounds. Inspection of the left hand on the dorsum does reveal mild tenderness to palpation on and around an abrasion without active bleeding more in the distal metacarpal area of the third digit. Palpable radial pulse. Able to oppose thumb. Remote amputation of tip of second digit, but good capillary refill distally on other fingers. Neurological examination shows him to be awake, alert, oriented x 3, nonfocal, nonlateralizing. Able to raise arms above head without difficulty. Const Vital Signs: 12/26/24 17:15 12/26/24 17:19 12/26/24 19:28 Temperature 97.9 F 98.2 F Temperature Source Oral Pulse Rate 78 79 Respiratory Rate 18 18 Respiratory Effort Normal Non-Labored Respiratory Depth Normal Respiratory Pattern Normal Blood Pressure 138/82 H 123/70 H Blood Pressure Mean 100 87 Pulse Ox 97 96 Oxygen Delivery Method Room Air Room Air MDM MDM MDM Narrative Medical decision making narrative: Differential diagnosis includes but not limited to intracranial hemorrhage versus closed head injury. Given his uncertainty of his last tetanus immunization, 1 was ordered here in the emergency department. His wounds will be cleansed and dressed. I do not feel that it is amenable to suturing, the avulsion on the bridge of his nose, and is very small. CT will be obtained to rule out fracture or intracranial hemorrhage. CT of the C-spine will also be obtained to rule out fracture. Regarding his left hand, he is right-hand dominant and x-rays will be obtained to rule out contusion versus fracture of his nondominant hand. Patient declines any oral analgesics here in the emergency department. My individual interpretation of the x-ray of his left hand, there is no acute fracture. I reviewed the radiology report which confirms my independent interpretation. I reviewed the radiology report of the CT of the brain and there are senescent changes but no evidence of an acute process, no hemorrhage or skull fracture. I reviewed the radiology report of the CT of the cervical spine and there is no evidence of an acute fracture, there are degenerative joint changes. At this point in time, I feel he can be discharged to follow-up with his primary care provider. Return instructions to the emergency department were reviewed. Disposition is discharged home in stable condition. History & Record Review Discussion w/independent historian: Patient Radiography Diagnostic Testing: Clinical Impression(s) from Imaging Studies Brain CT 12/26/24 17:35 IMPRESSION: No acute traumatic findings. Senescent changes. Reading Location: [facility] Cervical Spine CT 12/26/24 17:35 IMPRESSION: No findings of acute cervical spine fracture. One or more dose reduction techniques were used (e.g., Automated exposure control, adjustment of the mA and/or kV according to patient size, use of iterative reconstruction technique). Reading Location: [facility] Hand X-Ray 12/26/24 18:00 IMPRESSION: No acute osseous abnormalities. 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 Mild degenerative changes of the distal interphalangeal joints. Reading [facility] Discharge Plan Triage Chief Complaint: Fall Other Complaint: Head Injury ED Provider: Carlos Dennis Dx/Rx/DC Orders Clinical Impression: Fall, Abrasion of face, Avulsion of skin of face, Contusion of left hand Instructions: ED Abrasion, ED Hand Contusion, ED Facial Contusion, ED Head Injury (Adult) Prescriptions: No Action levothyroxine 50 mcg tablet 50 mcg PO QDAY propranolol 20 mg tablet 20 mg PO BID carbidopa-levodopa 25-100 mg tablet extended release 1 tab PO TID omeprazole 40 mg capsule,delayed release(DR/EC) 40 mg PO QDAY tamsulosin 0.4 mg capsule 0.4 mg PO BID Motegrity 2 mg tablet 2 mg PO DAILY Primary Care Provider: Eloina Chi Referrals: Eloina Chi MD [Primary Care Provider] - 1 Week if not improving Activity Restrictions/Additional Instructions: [id number] medications as needed for pain. Return with new or worsening symptoms. Print Language: Turkmen Disposition Disposition: Home, Self Care Discharge Date/Time: 12/26/24 19:42
[2024-12-26] MEDS: Diphth,Pertuss(Acell),Tet Vac 0.5 ML Vial IM (17:45)
--- NOTE | 2024-12-26 18:00 | RAD_ITS ---
PROCEDURE: HAND MIN 3 VIEWS REASON FOR EXAM: TRAUMA TECHNIQUE: 3 view(s) of the left hand COMPARISON: None. FINDINGS: No visible fracture. No suspicious bone lesion. Normal alignment. 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 Mild narrowing of the distal interphalangeal joints of the 2nd through 5th digits. Soft tissues are unremarkable. RAD/Hand Min 3 Views IMPRESSION: No acute osseous abnormalities. 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 Mild degenerative changes of the distal interphalangeal joints. Reading Location: [id number]
[2024-12-26 19:28] VITALS: BP 123/70; PULSE 79; RESP 18; TEMP 36.8; O2SAT 96
== END 2024-12-26 19:42 | disposition home or self-care (01) ==
PROVIDERS: Emergency Provider Emergency Medicine; PCP Family Medicine; Visit Provider Emergency Medicine
DX: S00.81XA Abrasion of other part of head, initial encounter (principal); G20.A1 Parkinson's disease without dyskinesia, without mention of fluctuations; Z21 Asymptomatic human immunodeficiency virus [HIV] infection status; S01.20XA Unspecified open wound of nose, initial encounter; S60.222A Contusion of left hand, initial encounter; W18.09XA Striking against other object with subsequent fall, initial encounter; K90.0 Celiac disease; Z79.899 Other long term (current) drug therapy; Z87.891 Personal history of nicotine dependence
CPT/HCPCS: 70450; 72125; 73130; 90471; 90715; 99284

== ENCOUNTER → 2024-12-28 | Outpatient (CLI) | payer MEDICARE, SELFPAY | END | disposition home or self-care (01) | LOC: LABSPEC 15:39 | PROVIDERS: PCP Family Medicine | DX: J02.9 Acute pharyngitis, unspecified (principal) | CPT/HCPCS: 87070 ==

== ENCOUNTER → 2025-02-08 | Outpatient (CLI) | payer MEDICARE, SELFPAY | END | disposition home or self-care (01) | LOC: LABSPEC 15:28 | PROVIDERS: PCP Family Medicine | DX: J02.9 Acute pharyngitis, unspecified (principal) | CPT/HCPCS: 87070; 87077 ==

== ENCOUNTER → 2025-03-01 | Outpatient (CLI) | payer MEDICARE, SELFPAY | END | disposition home or self-care (01) | LOC: LABSPEC 15:52 | PROVIDERS: PCP Family Medicine | DX: J02.9 Acute pharyngitis, unspecified (principal) | CPT/HCPCS: 87070 ==

== ENCOUNTER → 2025-05-03 | Outpatient (CLI) | payer MEDICARE, SELFPAY ==
--- NOTE | 2025-05-03 12:40 | CT_ITS ---
PROCEDURE: SOFT TISSUE NECK WITH CONTRAST 05/03/2025 REASON FOR EXAM: LEFT TONSILLER MASS TECHNIQUE: SOFT TISSUE NECK WITH CONTRAST CONTRAST: Isovue 370 VOLUME: 75 mL One or more dose reduction techniques were used (e.g., Automated exposure control, adjustment of the mA and/or kV according to patient size, use of iterative reconstruction technique). RADIATION DOSE SUMMARY: CTDlvol: 11.7 mGy DLP: 346 mGycm FINDINGS: Normal nasopharynx. Normal parotid glands. There is an abnormal mass in the left palatine tonsil which extends to the glossotonsillar sulcus and exhibit central ulceration. The dimensions at a rental representative axial level are about 2.4 x 3.2 cm. There is a necrotic left level 2 lymph node measuring 1.4 cm long axis. There are additional metastatic nodes identified in level 2 and 3 on the left measuring 1.4 cm. Normal thoracic inlet. Normal vocal folds. Normal epiglottis. Normal right and left submandibular glands. No parotid mass. The oral cavity itself is maintained. 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
== END | disposition home or self-care (01) ==
LOC: CT 12:39
PROVIDERS: PCP Family Medicine; Referring Provider Otolaryngology; Visit Provider Otolaryngology
DX: J35.8 Other chronic diseases of tonsils and adenoids (principal)
CPT/HCPCS: 70491; Q9967; A4216

== ENCOUNTER 2025-05-31 15:30 | Outpatient (RCR) | payer MEDICARE, SELFPAY ==
--- NOTE | 2025-04-26 14:26 | HP.PTEVAL ---
Patient's Visit Information Visit Information Visit Information: CARLOS BARCLAY is a 80 year old M referred to Physical Therapy by MARNI JIMENEZ with a diagnosis of PD. Date of Evaluation: 04/26/25 Physical Therapist: AMRITA Thompson Visit Plan Frequency: 2x /Week Duration: 3 Months Plan: 2X/ week for 8-12 weeks for balance activities (curb steps, stepping over objects, walking BW, side stepping etc), dual tasking, postural exercises, with HEP Subjective Subjective: Pt was dx with PD for about 10 years. Pt is having some problems with getting light headed and has to sit down and this has been going on for a few months. Pt has an appt with an ENT for a constant sore throat. He saw Dr Alisson Sarabia lately and they changed some meds for dizziness but not sure if that is helping yet. He was having some low blood pressure and they took him off of a medication to see if that helps. He reports that his balance has been pretty good but reports 2 falls this month. He was going to sit down on the toilet and fell off of it. He was able to to push up on the toilet and get up. He has had a sore back since then. He lives with his . He has steps at home but all first floor set up. Pt exercises at home to a video called 7 steps for PD. He is not consistent with it. Pt has trouble getting into the bed at times. Pt has no trouble walking into the shower. Pain Back pain: Pain Intensity (Out of 10): 0 Objective Objective: Gait: Walks with smaller step length and slight veering at times. Posture: stands with flexed trunk and rounded shoulders and FW head LE MMT: R hip flex 19.2 and L 15.2 R knee ext 22.5 and L 23.6 R knee flex 11 and L 10.2 Pt is able to heel and toe raise with UE support FGA: 14 TU.31 Sit to stand: able to get up without using his arms with some retro LOB Standing opp arm and leg ( able to do about 3 in a row, he knows that he messes up and then tried to correct and go possibly another 3 in a row) Balance/Special Test Scores Functional Gait Assessment Score: 14 % Disability: 53.3400 Lower Extremity Functional Score: 55 Goals Goal 1:: I HEP Goal Time Frame: 6-8 Weeks Goal 2:: Increase balance (FGA at the time of the eval 14) Goal Time Frame: 6-8 Weeks Goal 3:: Be able to complete X 10 in a row standing opp arm and leg with CGA to min A with gait belt Goal Time Frame: 6-8 Weeks Goal 4:: Be able to step up and over various size hurdles making sure he is able to increase his step length and clear the shauna Goal Time Frame: 6-8 Weeks Goal 5:: Improve TUG (14.31 seconds at eval) Goal Time Frame: 6-8 Weeks Rehabilitation Potential Rehabilitation Potential: Good Anticipated Interventions Patient/Client Instruction: Educate patient on: Condition and Plan of Care For the Purpose of:: To improve muscle performance and motor function, To improve ability to perform ADL's, To increase tolerance to activity/condition/position, To improve performance and independence with ADL's, To improve ability of physical actions for home/community/work/leisure, To improve gait and locomotor functions, To improve endurance, To improve balance and To improve safety with gait Therapeutic Exercise to Include: Strength training, Endurance training, Balance training, Body mechanics, Postural training, Flexibilty training, Gait and locomotor training, Neuromotor development, Active ROM and Dynamic Lumbar Stabilization For the Purpose of:: To improve muscle performance and motor function, To improve ability to perform ADL's, To increase tolerance to activity/condition/position, To improve performance and independence with ADL's, To decrease level of supervision to perform tasks, To improve ability of physical actions for home/community/work/leisure, To improve gait and locomotor functions, To improve health of tissue, To increase flexibility/ROM, To improve endurance and To improve safety with gait Functional Training to Include: Gait training For the Purpose of:: To improve gait and locomotor functions and To improve safety with gait Text: Thank you for the opportunity to evaluate your patient. For Medicare and Medicare HMO plans, please review the plan of care and approve it. It will need to be FAXED BACK to us at [phone] for Medicare purposes. For Medicare only, by signing this I certify the plan of care. Please let me know if there are questions or concerns regarding this plan of care. Physician Signature: Date:
--- NOTE | 2025-05-25 13:21 | HP.PTDCSUM ---
Discharge Summary D/C summary: It has been my pleasure to treat CARLOS BARCLAY referred by MARNI JIMENEZ, with the diagnosis of PD for a total of 10 visit(s). Discharge Date: 05/25/25 Please see the following information for a summary of their discharge status. Subjective Subjective: Pt has no complaints. He reports that his BP has been low and the Dr told him to eat more salt. No Falls. He is doing steps ok. He is doing fine getting in and out of the car. Pt was told that he is moving better and he thinks that he is. He is doing some you tube exercises ISVT for PD. Pain Back pain: Pain Intensity (Out of 10): 0 Overall Improvement % Improvement: 25 Objective Objective/Function: TUG 10.34 FGA 21 Standing opp arm and leg... able to get X 4 max in a row and then reverts back to same side and he does notice that he reverts back. He is able to step over several objects today with no LOB or issue. Goals Goal 1:: I HEP Goal Progress: Goal Met Goal 2:: Increase balance (FGA at the time of the eval 14) Goal Progress: Goal Met Goal 3:: Be able to complete X 10 in a row standing opp arm and leg with CGA to min A with gait belt Goal Progress: Progressing Goal 4:: Be able to step up and over various size hurdles making sure he is able to increase his step length and clear the shauna Goal Progress: Goal Met Goal 5:: Improve TUG (14.31 seconds at eval) Goal Progress: Goal Met Plan Plan: DC PT to HEP D/C Information Discharge Comments: DC PT to HEP d/c sentence: If there are questions or concerns regarding this patient's physical therapy, please feel free to call me at [phone]. Thank you for the referral of this patient. Sincerely, Mayra Clements, MPT Balance/Gait/Functional tests Balance/Special Test Scores Functional Gait Assessment Score: 21 % Disability: 30.0000 Lower Extremity Functional Score: 57 Improvement % Improvement: 25
--- NOTE | 2025-06-07 13:30 | HP.PTDCSUM ---
Discharge Summary D/C summary: It has been my pleasure to treat CARLOS BARCLAY referred by MARNI JIMENEZ, with the diagnosis of PD for a total of 12 visit(s). Discharge Date: 06/07/25 Please see the following information for a summary of their discharge status. Subjective Subjective: He had been having a constant sore throat and kept coming back and was dx with throat CA. He has been having LBP today. They gave him a rescue med but does not want him doing much right now. They will do a combo of Chemo and radiation and wont have time for PT. Pain Back pain: Pain Intensity (Out of 10): 0 Overall Improvement % Improvement: 25 Objective Objective/Function: copied from - note TUG 10.34 FGA 21 Standing opp arm and leg... able to get X 4 max in a row and then reverts back to same side and he does notice that he reverts back. He is able to step over several objects today with no LOB or issue. Goals Goal 1:: I HEP Goal Progress: Goal Met Goal 2:: Increase balance (FGA at the time of the eval 14) Goal Progress: Goal Met Goal 3:: Be able to complete X 10 in a row standing opp arm and leg with CGA to min A with gait belt Goal Progress: Progressing Goal 4:: Be able to step up and over various size hurdles making sure he is able to increase his step length and clear the shauna Goal Progress: Goal Met Goal 5:: Improve TUG (14.31 seconds at eval) Goal Progress: Goal Met Plan Plan: DC PT D/C Information Discharge Comments: DC PT d/c sentence: If there are questions or concerns regarding this patient's physical therapy, please feel free to call me at [phone]. Thank you for the referral of this patient. Sincerely, Mayra Clements, MPT Balance/Gait/Functional tests Balance/Special Test Scores Functional Gait Assessment Score: 21 % Disability: 30.0000 Lower Extremity Functional Score: 57 Improvement % Improvement: 25
== END 2025-05-31 19:00 | disposition home or self-care (01) ==
LOC: PT 15:30
PROVIDERS: PCP Family Medicine; Referring Provider Nurse Practitioner; Visit Provider Nurse Practitioner
DX: G20.A2 Parkinson's disease without dyskinesia, with fluctuations (principal)
CPT/HCPCS: 97110; 97161; 97530

== ENCOUNTER → 2025-06-15 | Outpatient (CLI) | payer MEDICARE, SELFPAY ==
--- OUTSIDE RECORDS SUMMARY | 2025-06-15 06:45 | XMS RPT_ITS | CCD ---
Author Organization [facility] Care Team Providers Care Mri Manager Name Role Phone MD Eloina Chi Primary Care Provider MD Eloina Chi Referring Provider DIETER Morrow Attending Provider Dr. Kiran Sarkar Attending Provider Unavailable Primary Care Provider Unavailabl e Unavailable Primary Care Provider Unavailabl e Eloina Chi MD Primary Care Provider Eloina Chi MD Primary Care Provider Eloina Chi MD Referring Provider Ranulfo Mcfadden Attending Provider Eloina Chi MD Attending Provider Carlos Dennis MD Emergency Provider Ariel Black Attending Provider DuqueAriel Fleming Referring Provider Eloina Chi MD Primary Care Provider [phone] Eloina Chi MD Referring Provider Carlos Dennis MD Attending Provider JOSEPH SARABIA Attending Unavailable LULA, CHALON Primary Care Unavailable ALISSON SARABIA Attending Unavailable JOSEPH SARABIA Referring Unavailable LULA, CHALON Primary Care Unavailable ALISSON SARABIA Attending Unavailable JOSEPH SARABIA Referring Unavailable LULA, CHALON Primary Care Unavailable SALMA CHAMBERLAIN Attending Unavailable SELF Referring Unavailable LULA, CHALON Primary Care Unavailable SALMA CHAMBERLAIN Referring Unavailable LULA, CHALON Primary Care Unavailable Eloina Chi MD Primary Care Provider Ariel Black Attending Provider Duque PA, Ariel Referring Provider Ed HARDEN, Dr. Melgar Attending Provider Dr. Ramón Ward MD Referring Provider ALISSON REDDY Attending Provider ALISSON REDDY Referring Provider Unavailable Primary Care Provider Unavailhouston e ALISSON REDDY Attending Provider ALISSON REDDY Referring Provider Lula HARDEN, Chalon Primary Care Provider Duque PA, Ariel Attending Provider Duque PA, Ariel Referring Provider [phone] ALISSON REDDY Attending Provider ALISSON REDDY Referring Provider Cherelle Maher LPN Attending Provider Unavailab le Lula, Chalon Attending Unavailable Lula, Chalon Referring Unavailable Lula, Chalon Primary Care Unavailable Duque, Ariel Attending Unavailable Duque, Ariel Referring Unavailable Lula, Chalon Primary Care Unavailable Duque, Ariel Attending Unavailable Duque, Ariel Referring Unavailable Lula, Chalon Primary Care Unavailable ReodicaCarlos Attending Unavailable Lula, Chalon Primary Care Unavailable Duque, Ariel Referring Unavailable Lula, Chalon Primary Care Unavailable Duque, Ariel Attending Unavailable Lula, Chalon Primary Care Unavailable DanielReta Attending Unavailable DanielReta Referring Unavailable Lula, Chalon Primary Care Unavailable En Guerin Attending Unavailable Lula, Chalon Primary Care Unavailable Lula, Chalon Referring Unavailable Roof LYLE, Ranulfo Juarez Attending Unavailable Lula, Chalon Primary Care Unavailable Cherelle Maher Attending Unavailable Lula, Chalon Primary Care Unavailable ALISSON SARABIA Attending Unavailable ALISSON SARABIA Referring Unavailable Lula, Chalon Primary Care Unavailable Ramón Ward Attending Unavailhouston e Ramón Ward Referring Unavailabl e RETA SIEGEL Attending Unavailable ANN-MARIE MONTES Admitting Unavailable DANIELRETA CISNEROS Attending Unavailable WARTMANN, CHRISTOPHER Referring Unavailabl e ANN-MARIE MONTES Admitting Unavailable RETA SIEGEL Referring Unavailable ANN-MARIE MONTES Attending Unavailable ANN-MARIE MONTES Admitting Unavailable Allergies Allergy Classification Reported Allergen(s) Allergy Type Date of Onset Reaction(s) Facility (10 sources) Wheat gluten extract; Translations: [GLUTEN] Drug Allergy 12-27-19 Other: See Comments [facility] (11 sources) ARIPiprazole; Translations: [ARIPIPRAZOLE] Drug Allergy 04-08-20 Contraindicati on[facility] (11 sources) Haloperidol; Translations: [HALOPERIDOL] Drug All[facility] Metoclopramide; Translations: [METOCLOPRAMIDE] Drug Allergy 04-08-20 Contraindicati [facility] (5 sources) OLANZapine; Translations: [OLANZAPINE] Drug Allergy 04-08-20 Contraindicati [facility] (11 sources) Prochlorperazine; Translations: [PROCHLORPERAZINE] Drug Allergy 04-08-20 Contraindicati [facility] (11 sources) Promethazine; Translations: [PROMETHAZINE] Drug Allergy 04-08-20 Contraindicati [facility] (7 sources) Gluten; Translations: [GLUTEN MEAL] Propensity to adverse reactions to drug 12-27-19 [facility] (6 sources) OLANZapine Drug Allergy [facility] source) ARIPiprazole Drug Allergy 06-10-20 [facility] (1 source) Gluten Drug allergy (disorder) 12-27-19 [facility] (1 source) Haloperidol Drug Allergy 06-10-20 [facility] (1 source) Metoclopramide Drug Allergy 06-10-20 [facility] (1 source) OLANZapine Drug Allergy 06-10-20 [facility] (1 source) Prochlorperazine Drug Allergy 06-10-20 [facility] (1 source) Promethazine Drug Allergy 06-10-20 [facility] Medications Current Medications Medication Drug Class(es) Dates Sig (Normalized) Sig (Original) carbidopa 25 mg / levodopa 100 mg extended release oral tablet (20 sources) Aromatic Amino Acid Decarboxylation Inhibitor, Aromatic Amino Acid Start: 06-25-2024 End: 09-21-2025 Carbidopa-Levodop a 25-100 mg tablet extended release Active 1 {tbl} PO .qid June 10, 2025 10:12am Start: 03-05-2024 CARBIDOPA-LEVO DOPA CR ORAL 1 Tablet. 03/05/2024 Active Start: 03-05-2024 End: 06-10-2025 Carbidopa-Levodopa 25-100 mg tablet extended release Discontinued 1 {tbl} PO THREE TIMES A DAY March 05, 2024 12:00am June 10, 2025 10:14am Start: 03-05-2024 Carbidopa-Levo dopa 25-100 mg tablet extended release Active 1 {tbl} PO THREE TIMES A DAY March 05, 2024 12:00am Start: 12-13-2023 End: 12-18-2024 take 1 tablet by mouth three times daily carbidopa-levodopa CR (SINEMET CR) 25-100 mg per tablet Take 1 tablet by mouth three times a day. 90 tablet 11 12/19/2023 06/25/2024 Discontinued take 1 tablet by kathrine th four times daily in the morning Carbidopa-Levodopa CR 25-100 MG TBCR TAKE 1 TABLET BY MOUTH 4 TIMES DAILY. TAKE AT 6 AM, 12 PM, 6 PM, 8 PM AND 12 AM (IF AWAKENING AT NIGHT). Active Comment on above: Take 1 tablet by kathrine th three times a day. levothyroxine sodium 0.05 mg oral tablet (20 sources) l-Thyroxine Start: 4 take 1 tablet by mouth once daily Levothyroxine 50 mcg tablet Active 50 ug PO daily March 05, 2024 12:00am End: 03-17-2024 take 1 capsule by mouth once daily levothyroxine 50 mcg cap Take 50 mcg by mouth once daily. 0 03/17/2024 Discontinued Comment on above: Take 50 mcg by mouth once daily. midodrine hydrochloride 5 mg oral tablet (7 sources) alpha-Adrenergic Agonist Start: 5 take 1 tablet by mouth once daily at bedtime Midodrine 5 mg tablet Active 5 mg PO daily June 10, 2025 12:00am do not give last dose of day after 6PM or within 4 hrs of bedtime omeprazole 40 mg delayed release oral capsule (20 sources) Proton Pump Inhibitor Start: take 1 capsule by mouth once daily Omeprazole 40 mg capsule,delayed release(DR/EC) Active 40 mg PO daily March 05, 2024 12:00am Comment on above: Take 1 capsule by mo uth once daily. OTC NUTRITIONAL SUPPLEMENT (11 sources) take 1 tablet by mouth once daily OTC NUTRITIONAL SUPPLEMENT Take 1 tablet by mouth once daily. Vitamin C, Vitamin B Complex, Vitamin B-12, and Calcium. Active take 1 tablet by mouth once johanna y OTC NUTRITIONAL SUPPLEMENT Take 1 tablet by mouth once daily. Vitamin C, Vitamin B Complex, Vitamin B-12, and Calcium. 0 Active Comment on above: Take 1 tablet by kathrine once daily. Vitamin C, Vitamin B Complex, Vitamin B-12, and Calcium. polyethylene glycol 3350 834465 mg / potassium chloride 2970 mg / sodium bicarbonate 6740 mg / sodium chloride 5860 mg / sodium sulfate 12755 mg powder for oral solution (20 sources) Osmotic Laxative Start: 06-10-2025 Peg 3350-Electrolytes 236-22.74-6.74 -5.86 gram recon soln Active mL PO as needed for constipation June 10, 2025 12:00am Start: 05-15-2024 polyethylene g lycol (GOLYTELY) oral solution DRINK NEEDED FOR CONSTIPATION 05/15/2024 Active Start: 03-26-2024 End: 05-09-2024 take 1 mL by mouth every hour as needed for constipation Peg 3350-Electrolytes (Golytely) 236-22.74-6.74 -5.86 gram recon soln Discontinued 240 mL PO Q1H as needed for constipation 4000 0 March 26, 2024 11:29am May 09, 2024 6:24am until fecal effluent is clear propranolol hydrochloride 20 mg oral tablet (20 sources) beta-Adrenergic Cyndy Start: 03-05-2024 take 1 tablet by mouth twice daily Propranolol 20 mg tablet Active 20 mg PO TWICE A DAY March 05, 2024 12:00am Start: 10-19-2023 End: 02-23-2026 take 1 tablet by mouth every twelve hours propranolol (INDERAL) 20 mg tablet Take 1 tablet by mouth every 12 hours. 60 tablet 11 02/23/2025 02/23/2026 Active Comment on above: Take 1 tablet by kathrine every 12 hours. prucalopride 2 mg oral tablet (20 sources) Start: End: take 1 tablet by mouth once daily Prucalopride (Motegrity) 2 mg tablet Active 2 mg PO DAILY May 09, 2024 12:00am tamsulosin hydrochloride 0.4 mg oral capsule (20 sources) alpha-Adrenergic Cyndy Start: take 1 capsule by mouth twice daily Tamsulosin 0.4 mg capsule Active 0.4 mg PO TWICE A DAY March 05, 2024 12:00am Start: 09-20-2023 take 1 capsule by mo [facility] every twelve hours tamsulosin (FLOMAX) 0.4 mg Take 1 capsule by mouth every 12 hours. 09/20/2023 Active Comment on above: Take 1 capsule by mo [facility] every 12 hours. Completed/Discontinued Medications Medication Drug Class(es) Dates Sig (Normalized) Sig (Original) amoxicillin 500 mg oral capsule (3 sources) Penicillin-class Antibacterial Start: 12-16-2023 End: 06-25-2024 amoxicillin (AMOXIL) 500 mg capsule Take 500 mg by mouth as needed. For Dental Procedures 12/16/2023 06/25/2024 Discontinued (Course of therapy completed) Comment on above: Take 500 mg by mouth as needed. For Dental Procedures amoxicillin 875 mg / clavulanate 125 mg oral tablet (7 sources) Penicillin-class Antibacterial Start: 10-04-2024 End: 10-11-2024 Amoxicillin-Pot Clavulanate 875-125 mg tablet Discontinued 1 {tbl} PO TWICE A DAY 14 7 0 October 04, 2024 1:00am October 10, 2024 1:00am October 11, 2024 1:09am baclofen 10 mg oral tablet (2 sources) gamma-Aminobutyric Acid-ergic Agonist Start: 12-17-2023 End: 03-17-2024 baclofen 10 mg tablet Take 1 tablet by mouth as directed. 0 12/17/2023 03/17/2024 Discontinued Comment on above: Take 1 tablet by kathrine as directed. Bisacodyl (Dulcolax (Bisacodyl)) 10 mg suppository (7 sources) Start: 03-05-2024 End: 05-09-2024 Bisacodyl (Dulcolax (Bisacodyl)) 10 mg suppository Discontinued 10 mg RC DAILY as needed for constipation March 05, 2024 12:00am May 09, 2024 6:23am Start: 03-05-2024 End: 05-09-2024 Bisacodyl (Dulcolax (Bisacod yl)) 10 mg suppository Discontinued 10 mg RC DAILY as needed for constipation March 05, 2024 12:00am May 09, 2024 6:23am EPINEPHrine 0.01 mg/ml / lidocaine hydrochloride 10 mg/ml injectable solution (4 sources) Antiarrhythmic, alpha-Adrenergic Agonist, beta-Adrenergic Agonist, Catecholamine, Amide Local Anesthetic Start: 05-28-2025 End: 05-28-2025 lidocaine-EPINEPHrine (XYLOCAINE) 1 %-1:229797 injection SOLN Start: 05-28-2025 End: 05-28-2025 2 mL, Injection, ONCE, 1 dos e, On Sat05/28/25 at 1430 Start: 05-28-2025 End: 05-28-2025 lidocaine-EPINEPHrine (XYLOC LAURY) 1 %-1:[id number] injection SOLN Start: 05-28-2025 End: 05-28-2025 2 mL, Injection, ONCE, 1 dos e, On Sat05/28/25 at 1430 erythromycin 0.005 mg/mg ophthalmic ointment (2 sources) Macrolide, Macrolide Antimicrobial Start: 05-22-2024 End: 07-30-2024 erythromycin (ROMYCIN) 5 mg/gram (0.5 %) ophthalmic ointment APPLY A SMALL AMOUNT OF OINTMENT ON INCISIONAL AREAS OF EYELID THREE TIMES DAILY DIRECTED ON SURGERY DAY. 05/22/2024 07/30/2024 Discontinued Guar Gum (Nutrisource Fiber) packet (7 sources) Start: 05-09-2024 End: 10-04-2024 take 4 [oz_av] by mouth three times daily as needed Guar Gum (Nutrisource Fiber) packet Discontinued 1 tbsp PO THREE TIMES A DAY as needed for bowels May 09, 2024 12:00am October 04, 2024 9:11am mix into at least 4 oz water or juice before administering lactulose 667 mg/ml oral solution (17 sources) Osmotic Laxative Start: 03-05-2024 End: 05-09-2024 take 1 mL by mouth three times daily Lactulose 10 gram/15 mL solution Discontinued 30 mL PO THREE TIMES A DAY March 05, 2024 12:00am May 09, 2024 6:24am Start: 11-14-2023 End: 04-08-2025 lactulose 10 gram/15 mL solu tion Take 30 mL by mouth as needed. 11/14/2023 04/08/2025 Discontinued Comment on above: Take 30 mL by mouth as needed. 10 ml lidocaine hydrochloride 20 mg/ml injection (2 sources) Antiarrhythmic, Amide Local Anesthetic Start: 05-28-2025 End: 05-28-2025 lidocaine (XYLOCAINE) 2 % injection Start: 05-28-2025 End: 05-28-2025 lidocaine (XYLOCAINE) 2 % in jection linaclotide 0.145 mg oral capsule (10 sources) Guanylate Cyclase-C Agonist Start: 12-16-2023 End: 06-25-2024 take 1 capsule by mouth once daily Linaclotide (Linzess) 145 mcg capsule Discontinued 290 ug PO daily March 05, 2024 12:00am May 09, 2024 6:23am Comment on above: Take 1 capsule by [facility] every afternoon. magnesium citrate 125 mg oral capsule (7 sources) Start: 03-05-2024 End: 05-09-2024 take 2 capsules by mouth once Magnesium Citrate 125 mg capsule Discontinued 125 mg PO ONCE 2 0 March 05, 2024 12:00am May 09, 2024 6:24am Take 2 glasses of water with each administration. methylPREDNISolone 4 mg oral tablet (8 sources) Corticosteroid Start: 09-25-2023 End: 10-01-2023 take 1 tablet by mouth once Methylprednisolone (Medrol (Daniele)) 4 mg tablets,dose pack Discontinued 4 mg PO per package directions 21 6 0 September 25, 2023 1:00am September 30, 2023 1:00am October 01, 2023 1:05am polyethylene glycol 3350 85687 mg powder for oral solution (13 sources) Osmotic Laxative Start: 05-09-2024 End: 10-04-2024 Polyethylene Glycol 3350 (Clearlax) 17 gram/dose powder Discontinued 17 g PO DAILY May 09, 2024 12:00am October 04, 2024 9:11am polyethylene gly col 3350 (MIRALAX) 17 gram packet Take 17 g by mouth two times a day. Dissolve dose in 4 - 8 ounces of liquid and take as directed. Active Sennosides (Senna) 8.6 mg tablet (7 sources) Start: 03-05-2024 End: 10-04-2024 take 1 tablet by mouth twice daily as needed for constipation Sennosides (Senna) 8.6 mg tablet Discontinued 8.6 mg PO TWICE A DAY as needed for constipation March 05, 2024 12:00am October 04, 2024 9:11am sennosides, intermediate 8.6 mg oral tablet (4 sources) Start: 04-20-2024 End: 09-21-2024 take 1 tablet by mouth every twelve hours SENNA 8.6 mg tab Take 1 tablet by mouth every 12 hours. 04/20/2024 09/21/2024 Discontinued (Course of therapy completed) Problems Active Problems Problem Classification Problem Date Documented Da te Episodic/Chronic Acute and chronic tonsillitis (11 sources) Mass of palatine tonsil; Translations: [Other chronic diseases of tonsils and adenoids] Onset: 5 05-14-2025 Chronic Cancer of head and neck (7 sources) Squamous cell carcinoma of oropharynx; Translations: [Malignant neoplasm of oropharynx, unspecified] Onset: 5 06-04-2025 Chronic Diseases of mouth; excluding dental (2 sources) Excessive salivation; Translations: [Disturbances of salivary secretion] Onset: 5 04-08-2025 Episodic E Codes: Fall (7 sources) Fall; Translations: [Unspecified fall, initial encounter] 12-26-2024 Episodic Esophageal disorders (18 sources) Gastroesophageal reflux disease; Translations: [Gastro-esophageal reflux disease without esophagitis] Onset: 3 12-19-2023 Chronic Hyperplasia of prostate (7 sources) Benign prostatic hyperplasia; Translations: [Benign prostatic hyperplasia without lower urinary tract symptoms] 03-05-2024 Chronic Open wounds of head; neck; and trunk (7 sources) Avulsion of skin; Translations: [Unspecified open wound of other part of head, initial encounter] 12-26-2024 Episodic Other and unspecified benign neoplasm (5 sources) Mass of palatine tonsil 05-14-2025 Episodic Other connective tissue disease (7 sources) Neurological symptom; Translations: [Unspecified symptoms and signs involving the nervous system] 05-17-2024 Episodic Other gastrointestinal disorders (1 source) Intestinal malabsorption; Translations: [Intestinal malabsorption, unspecified] 07-30-2024 Chronic Other gastrointestinal disorders (1 source) Intestinal malabsorption, unspecified; Translations: [Intestinal malabsorption, unspecified type] Onset: Chronic Other gastrointestinal disorders (19 sources) Constipation; Translations: [Constipation, unspecified] Onset: 4 03-17-2024 Episodic Other gastrointestinal disorders (7 sources) Obstipation; Translations: [Constipation, unspecified] 03-19-2024 Episodic Other nervous system disorders (1 source) Impaired cognition; Translations: [Other symptoms and signs involving cognitive functions and awareness] 09-21-2024 Episodic Other non-epithelial cancer of skin (5 sources) Squamous cell carcinoma of skin, unspecified; Translations: [Squamous cell carcinoma of skin, site unspecified] Onset: 5 05-28-2025 Episodic Parkinson`s disease (2 sources) Parkinson`s disease; Translations: [Parkinson's disease without dyskinesia, with fluctuating manifestations (HCC)] Onset: 5 Screening and history of mental health and substance abuse codes (4 sources) Ex-smoker; Translations: [Personal history of nicotine dependence] Onset: 5 06-04-2025 Episodic Secondary malignancies (1 source) Secondary and unspecified 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, face and neck; Translations: [Secondary and unspecified 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, face and neck] Onset: 5 Chronic Superficial injury; contusion (20 sources) Contusion of unspecified back wall of thorax, initial encounter; Translations: [Contusion of back wall of thorax] 09-25-2023 Episodic Thyroid disorders (7 sources) Hypothyroidism; Translations: [Hypothyroidism, unspecified] 03-05-2024 Chronic Unclassified (20 sources) Parkinson's disease; Translations: [Parkinson's disease without dyskinesia, with fluctuating manifestations (HCC)] Onset: 12-19-2023 Chronic Past or Other Problems Problem Classification Problem Date Documented Da te Episodic/Chronic E Codes: Natural/environment (10 sources) Cat bite - wound; Translations: [Bitten by cat, initial encounter] Onset: 10-04-2024 10-04-2024 Episodic Other circulatory disease (13 sources) Orthostatic hypotension; Translations: [Orthostatic hypotension] Onset: 03-17-2024 03-17-2024 Episodic Other circulatory disease (1 source) Orthostatic hypotension; Translations: [Orthostatic hypotension] Onset: 03-17-2024 Episodic Other gastrointestinal disorders (1 source) Constipation, unspecified; Translations: [Constipation, unspecified constipation type] Onset: 03-17-2024 Episodic Other injuries and conditions due to external causes (1 source) Unspecified injury of head, initial encounter; Translations: [Unspecified injury of head, initial encounter] Onset: 01-05-2025 Episodic Other upper respiratory infections (1 source) Acute pharyngitis, unspecified; Translations: [Acute pharyngitis, unspecified] Onset: 03-03-2025 Episodic Unclassified (2 sources) 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 Our exam revealed a firm, ulcerative and granular left oropharyngeal mass within the left tonsillar fossa extending into the palate superiorly and extending inferiorly into the glossotonsillar sulcus and base of tongue. There was also non-tender mobile palpable cervical LAD within left level II. Scope showed this mass with extension into the left GT sulcus and BOT. Left vocal fold with some immobility and in the paramedian position. Imaging was reviewed. 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 General Information Patient name Glenn Parada Date of / Age 3 1945 80 year old Staging Information Clinical Staging Discussed Yes Pathologic Staging Discussed Yes Genetics Genetics Referral: No Genetic Testing Eligibility: Not applicable Treatment Recommendations Plan Surgery no Chemotherapy Yes Radiation Therapy Yes Options and Eligibility for Supportive Care Services Discussed Yes COMPLEX MANAGER Clinical Trial Eligibility Discussed NA Treatment Plan BIOLOGICAL ENGINEER Multidisciplinary Team in Attendance at Tumor Board Radiology - Yes Medical Oncology- Yes Pathology- Yes Radiation Oncology- Yes Surgery- Yes Tumor Board Recommendations Definitive BIOLOGICAL ENGINEER NCCN Requirement NCCN Requirement Fulfilled? Yes The above recommendations were based on NCCN guidelines, as well as consideration of current national standards and review of the literature. Normal [facility] PT D/C Summary (1)on 025 PT D/C Summary (1) [facility] [address] [place] [address] / REHABILITATION SERVICES DISCHARGE SUMMARY MR#: [id number] Acct: [id number] Name: GLENN PARADA Rep #: [id number] : 1945 80 From: Mayra Clements MPT Referring Dr.: MARNI JIMENEZ Status: REG R CR Insurance: [facility] SELF PAY INSURANCE Discharge Summary D/C summary: It has been my pleasure to treat GLENN PARADA referred by MARNI JIMENEZ, with the diagnosis of PD for a total of 12 visit(s). Discharge Date: 06/07/25 Please see the following information for a summary of their discharge status. Subjective Subjective: He had been having a constant sore throat and kept coming back and was dx with throat CA. He has been having LBP today. They gave him a rescue med but does not want him doing much right now. They will do a combo of Chemo and radiation and wont have time for PT. Pain Back pain: Pain Intensity (Out of 10): 0 Overall Improvement % Improvement: 25 Objective Objective/Function: copied from -12 note TUG 10.34 FGA 21 Standing opp arm and leg... able to get X 4 max in a row and then reverts back to same side and he does notice that he reverts back. He is able to step over several objects today with no LOB or issue. Goals Goal 1:: I HEP Goal Progress: Goal Met Goal 2:: Increase balance (FGA at the time of the eval 14) Goal Progress: Goal Met Goal 3:: Be able to complete X 10 in a row standing opp arm and leg with CGA to min A with gait belt Goal Progress: Progressing Goal 4:: Be able to step up and over various size hurdles making sure he is able to increase his step length and clear the shauna Goal Progress: Goal Met Goal 5:: Improve TUG (14.31 seconds at eval) Goal Progress: Goal Met Plan Plan: DC PT D/C Information Discharge Comments: DC PT d/c sentence: If there are questions or concerns regarding this patient's physical therapy, please feel free to call me at [phone]. Thank you for the referral of this patient. Sincerely, Mayra Clements, MPT Balance/Gait/Functional tests Balance/Special Test Scores Functional Gait Assessment Score: 21 % Disability: 30.0000 Lower Extremity Functional Score: 57 Improvement % Improvement: 25 06/07/25 1330 CC: Dr. Eloina Chi MD; MARNI JIMENEZ Signed Normal [facility] Progress Noteson 06-04-2025 [employer] Authentication Interface Message Text Documentation: Mode: Telephone Patient Patient Work Phone: Patient Cell Preferred phone: [phone] Consent: I confirmed patient understanding of the risks and benefits of telehealth visits and obtained consent to proceed with the telehealth visit. Location of Patient: Home of patient Medical discussion: more than 10 minutes OTOLARYNGOLOGY - HEAD AND NECK SURGERY CLINIC NOTE CHIEF COMPLAINT: Review biopsy results HPI: Glenn Parada is a 80 year old male with PMH significant for Parkinson's who presents today, 06/04/2025, at [facility] for follow up regarding left oropharyngeal mass Interval History (06/04/25) Overall doing well since the biopsy last week in the office. No new issues or concerns Initial HPI (05/28/25) Today, pt reports persistent sore throat for the past 6 months. He went to local dentist and then referred to Dr. Ward. Denies any dysphagia. Weight has been fluctuating but eating less recently. Associated with muffled voice. Reports associated jaw pain. Denies fevers, chills, unintentionalweight loss, night sweats, otalgia, sore throat, oral bleeding, dysphagia, odynophagia, voice changes, shortness of breath, hemoptysis or new lesions/masses. Denies history of radiation or previous of head/neck surgery. Denies history of cardiac or pulmonary issues. Able to walk/up downstairs without issues. Not currently on any anticoagulation or antiplatelet therapy. Former smoker (quit at age 25, 1 ppd x 13 yrs). Denies history of significant alcohol use. All other systems are negative except for that listed in the HPI. Past Medical/Surgical History: He has no past medical history on file. His has no past surgical history on file. Past Family/Social History: His family history is not on file. He reports that he has quit smoking. His smoking use included cigarettes. He has never used smokeless tobacco. Medications/Allergies/Immu nizations: His current medication(s) include: @CMEDLISTP@ Allergies: Aripiprazole, Gluten meal, Haloperidol, Metoclopramide, Olanzapine, Prochlorperazine, and Promethazine, Immunizations: Immunization History Administered Date(s) Administered COVID-19 Vaccine (12+ yrs, Banjo) mRNA, spike protein, LNP, pres. free, 30 mcg/0.3mL dose, lola-sucrose (VLT=295) 06/22/2024 Influenza, injectable, high dose seasonal, trivalent, preservative free (PFK=290) 06/22/2024 Tdap (TXB=030) 12/26/2024 Pathologic Review: Final Diagnosis A. Oropharyngeal, Left tonsillar lesion INVASIVE, HPV-ASSOCIATED SQUAMOUS CELL CARCINOMA (see Immunohistochemistry). . I certify that I personally conducted the diagnostic evaluation of the above specimen(s) and have rendered the final diagnosis(es). 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 Tentatively staged as cT3/T4 (questionable invasion into the hyoglossus musculature on imaging) N1 -we reviewed the pathology findings in detail today - Given the extent of the primary and extension of the glossotonsillar sulcus and base of tongue and parapharyngeal space, would recommend nonsurgical treatment with up-front definitive chemotherapy and radiation. -we will order PET scan to complete staging and we will still plan to present at our multidisciplinary head AND neck tumor board Conference -Discussed his case with Dr. Guerin in [place] for definitive treatment and external referrals placed today -discussed the patient that he will need referrals to COMPLEX MANAGER, nutrition and dentistry and social work but this can likely be arranged with Dr. Guerin's -we will plan for follow up 2-3 months after treatment with me Thank you so much for allowing me to participate in the care of this patient. Please feel free to contact me if you have any questions or concerns. 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 Today, pt reports persistent sore throat for the past 6 months. He went to local dentist and then referred to Dr. Ward. Denies any dysphagia. Weight has been fluctuating but eating less recently. Associated with muffled voice. Reports associated jaw pain. Denies fevers, chills, unintentionalweight loss, night sweats, otalgia, sore throat, oral bleeding, dysphagia, odynophagia, voice changes, shortness of breath, hemoptysis or new lesions/masses. Denies history of radiation or previous of head/neck surgery. Denies history of cardiac or pulmonary issues. Able to walk/up downstairs without issues. Not currently on any anticoagulation or antiplatelet therapy. Former smoker (quit at age 25, 1 ppd x 13 yrs). Denies history of significant alcohol use. All other systems are negative except for that listed in the HPI. Past Medical/Surgical History: He has no past medical history on file. His has no past surgical history on file. Past Family/Social History: His family history is not on file. He reports that he has quit smoking. His smoking use included cigarettes. He has never used smokeless tobacco. Medications/Allergies/Immu nizations: His current medication(s) include: @CMEDLISTP@ Allergies: Aripiprazole, Gluten meal, Haloperidol, Metoclopramide, Olanzapine, Prochlorperazine, and Promethazine, Immunizations: Immunization History Administered Date(s) Administered COVID-19 Vaccine (12+ yrs, Banjo) mRNA, spike protein, LNP, pres. free, 30 mcg/0.3mL dose, lola-sucrose (ZOO=408) 06/22/2024 Influenza, injectable, high dose seasonal, trivalent, preservative free (QLP=217) 06/22/2024 Tdap (DAV=293) 12/26/2024 PHYSICAL EXAM: Vital Signs: BP 106/66 (BP Location: left arm, BP position: sitting, Cuff Size: adult) Pulse 86 Temp 97.5 ???F (36.4 ???C) (Temporal) Wt 160 lb (72.6 kg) SpO2 97% General: Well-developed, well-nourished. In no acute distress. Communication and Voice: Clear pitch and clarity Respiratory Respiratory effort: Equal inspiration and expiration without stridor Neuro: Appropriate mood and affect; Cranial nerves II-XII are intact except for slight tongue deviation to the left in mild fasciculations on the left side Head and Face Inspection: Normocephalic and atraumatic without mass or lesion Palpation: Facial skeleton intact without bony stepoffs Facial Strength: Facial motility symmetric and full bilaterally Eyes: No nystagmus with normal extraocular motion bilaterally ENT External nose: No scar or anatomic deformity TMJ: No pain to palpation with full mobility Salivary Glands: No mass or tenderness Lips: No lesion. Oral cavity: Moist mucosa. No mass or lesion. Oropharynx: Firm, ulcerative and granular left oropharyngeal mass within the left tonsillar fossa extending into the palate superiorly and extending inferiorly into the glossotonsillar sulcus and base of tongue. Unable to palpate the tumor within the floor of mouth Larynx: Unable to fully visualize larynx on indirect mirror laryngoscopy due to gag reflex Neck Trachea: Midline trachea. Thyroid: No mass or nodularity. Lymphatics: Small, mobile palpable cervical lymphadenopathy within the left level II. Nontender to palpation. No overlying Procedure: Procedure: Flexible fiberoptic nasopharyngolaryngoscopy Indications: Need for detailed exam, hyperactive gag reflex, inadequate mirror visualization Surgeon: Reta Siegel MD was present for the entirety of the procedure Procedure: After informed discussion of the risks, benefits, and alternatives, fiberoptic nasopharyngolaryngsocopy was recommended for the above indications, and the patient consented without further questions. Next, a flexible scope was easily advanced into the naris. Nasal cavities were unremarkable. Nasopharynx including Eustachian tubes AND fossae of Rosenmuller was unremarkable. Granular ulcerative lesion within the oropharynx extending towards the glossotonsillar sulcus and into the left base of tongue. Difficult to visualize the vallecula on the left side Hypopharynx AND endolarynx including epiglottis AND glottis were unremarkable. Airway was patent, right vocal fold mobile. Left vocal fold with limited mobility and in the paramedian position with associated atrophy. No lesions or masses appreciated. The scope was withdrawn atraumatically. The patient tolerated the procedure well without complications. Procedure Note: Procedure performed: Biopsy of left oropharyngeal lesion Pre-procedure Dx: Left oropharyngeal (more content not included)... Normal [facility] D/C Summary- SPon 05-27-2025 D/C Summary- SP [facility] [place] [address] / REHABILITATION SERVICES DISCHARGE SUMMARY MR#: [id number] Acct: [id number] Name: GLENN PARADAN Rep #: [id number] : 1945 80 From: Adamaris Arias M.S., [facility] Referring Dr.: Dr. Eloina Chi MD Status: REG RCR [facility] Discharge Summary Discharged: Discharge: GLENN PARADA is an 80 year old male who presented to [facility] on 12/23/2024 following a dx of suspected oral dysphagia. Pt attended initial evaluation when a Dime-sized excrescence on left tonsil that was White, boss, and black in color and Pitted/rough texture was observed during an oral mechanism exam. Recommended Pt follow up with ENT to determine pathology of the excrescence. Discussed returning to speech therapy if needed after the ENT appointment. Follow up visits were not scheduled by Pt or were no showed/canceled as of this date. Pt being discharged from speech therapy caseload on this date 05/27/2025 d/t Pt absence in attending additional treatment visits. Thank you for allowing me to participate in the care of your patient. Will reevaluate at Pt???s request following script from physician. 05/27/25 1326 CC: Dr. Eloina Chi MD RE Signed Normal [facility] PT D/C Summary (1)on 025 PT D/C Summary (1) [facility] Physical Therapy [address] [place] [address] / REHABILITATION SERVICES DISCHARGE SUMMARY MR#: [id number] Acct: [id number] Name: GLENN PARADA DEV Rep #: [id number] : 1945 80 From: Mayra CROWE Referring DrJaiden: MARNI JIMENEZ Status: REG R CR Insurance: [facility] INSURANCE Discharge Summary D/C summary: It has been my pleasure to treat GLENN PARADA referred by MARNI JIMENEZ, with the diagnosis of PD for a total of 10 visit(s). Discharge Date: 05/25/25 Please see the following information for a summary of their discharge status. Subjective Subjective: Pt has no complaints. He reports that his BP has been low and the Dr told him to eat more salt. No Falls. He is doing steps ok. He is doing fine getting in and out of the car. Pt was told that he is moving better and he thinks that he is. He is doing some you tube exercises ISVT for PD. Pain Back pain: Pain Intensity (Out of 10): 0 Overall Improvement % Improvement: 25 Objective Objective/Function: TUG 10.34 FGA 21 Standing opp arm and leg... able to get X 4 max in a row and then reverts back to same side and he does notice that he reverts back. He is able to step over several objects today with no LOB or issue. Goals Goal 1:: I HEP Goal Progress: Goal Met Goal 2:: Increase balance (FGA at the time of the eval 14) Goal Progress: Goal Met Goal 3:: Be able to complete X 10 in a row standing opp arm and leg with CGA to min A with gait belt Goal Progress: Progressing Goal 4:: Be able to step up and over various size hurdles making sure he is able to increase his step length and clear the shauna Goal Progress: Goal Met Goal 5:: Improve TUG (14.31 seconds at eval) Goal Progress: Goal Met Plan Plan: DC PT to HEP D/C Information Discharge Comments: DC PT to HEP d/c sentence: If there are questions or concerns regarding this patient's physical therapy, please feel free to call me at [phone]. Thank you for the referral of this patient. Sincerely, Mayra Clements, MPT Balance/Gait/Functional tests Balance/Special Test Scores Functional Gait Assessment Score: 21 % Disability: 30.0000 Lower Extremity Functional Score: 57 Improvement % Improvement: 25 05/25/25 1321 CC: Dr. Eloina Chi MD; MARNI JIMENEZ Signed Normal [facility] 05-03-2025 [facility] Telephone (NRMDN) -- PARADAGLENN Luca ([id number]) 1945 M Date Time Provider Department 05/03/25 ALISSON SARABIA During your visit today, we recorded the following information about you: Esther Linder MA 05/03/2025 7:55 AM Signed Faxed rehab evaluation to [facility] and confirmation received Allergies As of Date: 05/03/2025 Noted Allergy Reaction ABILIFY (ARIPIPRAZOLE) 04/08/2025 15 - Contraindication-Medical Stahl* Comments: People with Parkinson's disease should not take this or other antipsychotics except Nuplazid, Seroquel, and Clozaril can be prescribed. COMPAZINE (PROCHLORPERAZINE) 04/08/2025 15 - Contraindication-Medical Stahl* Comments: This should not be given to people with Parkinson's disease. If not otherwise contraindicated, Zofran should be given instead. GLUTEN 12/26/2024 14 - Other: See Comments Comments: Has celiac disease HALDOL (HALOPERIDOL) 04/08/2025 15 - Contraindication-Medical Stahl* Comments: People with Parkinson's disease should not take this or other antipsychotics except Nuplazid, Seroquel, and Clozaril can be prescribed. PHENERGAN (PROMETHAZINE) 04/08/2025 15 - Contraindication-Medical Stahl* Comments: This should not be given to people with Parkinson's disease. If not otherwise contraindicated, Zofran should be given instead. REGLAN (METOCLOPRAMIDE) 04/08/2025 15 - Contraindication-Medical Stahl* Comments: This should not be given to people with Parkinson's disease. If not otherwise contraindicated and for nausea, Zofran should be given instead. ZYPREXA (OLANZAPINE) 04/08/2025 15 - Contraindication-Medical Stahl* Comments: People with Parkinson's disease should not take this or other antipsychotics except Nuplazid, Seroquel, and Clozaril can be prescribed. Date Reviewed: 04/08/2025 Reviewed by: Cornell, Alisson, PUBLIC SPEAKING PROFESSOR.DIRECT SUPPORT PROFESSIONAL - Fully Assessed Reason for Visit: Orders [681] Prescriptions as of 05/03/2025 - propranolol (INDERAL) 20 mg tablet Take 1 tablet by mouth every 12 hours. - prucalopride (MOTEGRITY) 2 mg tab tablet Take 1 tablet (2 mg) by mouth once daily. - polyethylene glycol 3350 (MIRALAX) 17 gram packet Take 17 g by mouth two times a day. Dissolve dose in 4 - 8 ounces of liquid and take as directed. - carbidopa-levodopa CR (SINEMET CR) 25-100 mg per tablet Take 1 tablet by mouth four times daily. At 6am, 12pm, 6pm, 8pm and 12am (if awakening at night) - peg 3350-Electrolytes (GOLYTELY) 236-22.74-6.74 -5.86 gram suspension DRINK NEEDED FOR CONSTIPATION - levothyroxine (SYNTHROID) 50 mcg tablet Take 1 tablet by mouth every afternoon. - omeprazole (PRILOSEC) 40 mg capsule Take 1 capsule by mouth once daily. - tamsulosin (FLOMAX) 0.4 mg Take 1 capsule by mouth every 12 hours. - OTC NUTRITIONAL SUPPLEMENT Take 1 tablet by mouth once daily. Vitamin C, Vitamin B Complex, Vitamin B-12, and Calcium. Problem List As Of Date 05/03/2025 Noted Resolved Gastroesophageal reflux disease [K21.9] 09/27/2023 Diagnosed: 12/19/2023 Parkinson's disease without dyskinesia or fluct*03/17/2024 Constipation [K59.00] 03/17/2024 Orthostatic hypotension [I95.1] 03/17/2024 Encounter Status:Closed by ESTHER LINDER on 05/03/25 Normal [facility] Soft Tissue Neck WITH Contra ston 05-03-2025 Soft Tissue Neck WITH Contrast [facility] Imaging Services [address] [place] [address] Soft Tissue Neck WITH Contrast MR#: [id number] Acct: [id number] Name: GLENN PARADA DEV Rep #: [id number] : 1945 M 80 From: Boy Arroyo MD PCP: Dr. Chalon Lula, MD Status: REG CLI Study: Soft Tissue Neck WITH Contrast Date of Exam: 0 05/03/25 Exam# [id number] Ordering Dr: Ramón Ward MD PROCEDURE: SOFT TISSUE NECK WITH CONTRAST 05/03/2025 REASON FOR EXAM: LEFT TONSILLER MASS TECHNIQUE: SOFT TISSUE NECK WITH CONTRAST CONTRAST: Isovue 370 VOLUME: 75 mL One or more dose reduction techniques were used (e.g., Automated exposure control, adjustment of the mA and/or kV according to patient size, use of iterative reconstruction technique). RADIATION DOSE SUMMARY: CTDlvol: 11.7 mGy DLP: 346 mGycm FINDINGS: Normal nasopharynx. Normal parotid glands. There is an abnormal mass in the left palatine tonsil which extends to the glossotonsillar sulcus and exhibit central ulceration. The dimensions at a business process representative axial level are about 2.4 x 3.2 cm. There is a necrotic left level 2 lymph node measuring 1.4 cm long axis. There are additional metastatic nodes identified in level 2 and 3 on the left measuring 1.4 cm. Normal thoracic inlet. Normal vocal folds. Normal epiglottis. Normal right and left submandibular glands. No parotid mass. The oral cavity itself is maintained. 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 Eloina Chi MD; Dr. Ramón Ward MD Claim Investigator: Signed Normal [facility] Inital Evaluation (1) - PT 04-26-2025 Inital Evaluation (1) - PT [facility] Physical Therapy [facility] [address] [place] [address] [address] [place] [address] / REHABILITATION SERVICES INITIAL EVALUATION MR#: [id number] Acct: [id number] Name: GLENN PARADA DEV Rep #: [id number] : 1945 80 From: Mayra CROWE Referring Dr.: ALISSON SARABIA Status: REG RC R Insurance: [facility] SELF PAY INSURANCE Patient's Visit Information Visit Information Visit Information: GLENN PARADA is a 80 year old M referred to Physical Therapy by MARNI JIMENEZ with a diagnosis of PD. Date of Evaluation: 04/26/25 Physical Therapist: AMRITA Thompson Visit Plan Frequency: 2x /Week Duration: 3 Months Plan: 2X/ week for 8-12 weeks for balance activities (curb steps, stepping over objects, walking BW, side stepping etc), dual tasking, postural exercises, with HEP Subjective Subjective: Pt was dx with PD for about 10 years. Pt is having some problems with getting light headed and has to sit down and this has been going on for a few months. Pt has an appt with an ENT for a constant sore throat. He saw Dr Alisson Sarabia lately and they changed some meds for dizziness but not sure if that is helping yet. He was having some low blood pressure and they took him off of a medication to see if that helps. He reports that his balance has been pretty good but reports 2 falls this month. He was going to sit down on the toilet and fell off of it. He was able to to push up on the toilet and get up. He has had a sore back since then. He lives with his . He has steps at home but all first floor set up. Pt exercises at home to a video called 7 steps for PD. He is not consistent with it. Pt has trouble getting into the bed at times. Pt has no trouble walking into the shower. Pain Back pain: Pain Intensity (Out of 10): 0 Objective Objective: Gait: Walks with smaller step length and slight veering at times. Posture: stands with flexed trunk and rounded shoulders and FW head LE MMT: R hip flex 19.2 and L 15.2 R knee ext 22.5 and L 23.6 R knee flex 11 and L 10.2 Pt is able to heel and toe raise with UE support FGA: 14 TU.31 Sit to stand: able to get up without using his arms with some retro LOB Standing opp arm and leg ( able to do about 3 in a row, he knows that he messes up and then tried to correct and go possibly another 3 in a row) Balance/Special Test Scores Functional Gait Assessment Score: 14 % Disability: 53.3400 Lower Extremity Functional Score: 55 Goals Goal 1:: I HEP Goal Time Frame: 6-8 Weeks Goal 2:: Increase balance (FGA at the time of the eval 14) Goal Time Frame: 6-8 Weeks Goal 3:: Be able to complete X 10 in a row standing opp arm and leg with CGA to min A with gait belt Goal Time Frame: 6-8 Weeks Goal 4:: Be able to step up and over various size hurdles making sure he is able to increase his step length and clear the shauna Goal Time Frame: 6-8 Weeks Goal 5:: Improve TUG (14.31 seconds at eval) Goal Time Frame: 6-8 Weeks Rehabilitation Potential Rehabilitation Potential: Good Anticipated Interventions Patient/Client Instruction: Educate patient on: Condition and Plan of Care For the Purpose of:: To improve muscle performance and motor function, To improve ability to perform ADL's, To increase tolerance to activity/condition/positio n, To improve performance and independence with ADL's, To improve ability of physical actions for home/community/work/leisur e, To improve gait and locomotor functions, To improve endurance, To improve balance and To improve safety with gait Therapeutic Exercise to Include: Strength training, Endurance training, Balance training, Body mechanics, Postural training, Flexibilty training, Gait and locomotor training, Neuromotor development, Active ROM and Dynamic Lumbar Stabilization For the Purpose of:: To improve muscle performance and motor function, To improve ability to perform ADL's, To increase tolerance to activity/condition/positio n, To improve performance and independence with ADL's, To decrease level of supervision to perform tasks, To improve ability of physical actions for home/community/work/leisur e, To improve gait and locomotor functions, To improve health of tissue, To increase flexibility/ROM, To improve endurance and To improve safety with gait Functional Training to Include: Gait training For the Purpose of:: To improve gait and locomotor functions and To improve safety with gait Text: Thank you for the opportunity to evaluate your patient. For Medicare and Medicare HMO plans, please review the plan of care and approve it. It will need to be FAXED BACK to us at [phone] for Medicare purposes. For Medicare only, by signing this I certify the plan of care. Please let me know if there are questions or concerns regarding this plan of care. Physician Signature: (more content not included)... Normal [facility] CNOVon 04-08-2025 CNOV Office Visit (NRMDN) -- GLENN PARADA ([id number]) 1945 M Date Time Provider Department 04/08/25 3:00 PM ALISSON SARABIA During your visit today, we recorded the following information about you: Weight Height 75.5 kg 1.727 m Ariadna Carr MA 04/12/2025 8:47 PM Signed 04/04/2025 [facility] Physical Health Summary Physical health: Fair Everyday physical activity, ability: Completely Fatigue: Moderate Pain level: 5 General health: Fair Social activities/roles, ability: Very good Physical Health T-Score 42.3 (Good) Physical Health Percentile 22 [facility] Mental Health Summary Quality of life: Good Mental health (mood,thinking): Very good Social satisfaction: Very good Emotional problems (anxious,depressed): Never Mental Health T-Score 53.3 (Very Good) Mental Health Percentile 63 PHQ-9 Score: 3(Minimal Depression) PHQ-9 Self-Harm: Not at all Percentiles provide an indication of how a patient's score ranks in relation to the [place] general population. > 31st percentile is within normal limits or better *< 31st percentile is at least ? SD worse than population, which may be clinically relevant < 16th percentile is at least 1 SD worse than population and warrants attention Alisson Sarabia APRN.CNP 04/12/2025 8:47 PM Signed [facility] - FOLLOW UP EVALUATION Primary Movement Disorders Neurologist: Joseph Sarabia MD Primary Movement Disorders FER: Alisson Sarabia CNP Recording using ambient Gymtrack software for draft documentation of the visit was discussed with the patient/authorized business process representative; all questions welcomed and answered. Patient/authorized business process representative agreed to proceed MD [address] [place] [address] Dear Eloina Chi MD: I had the pleasure of seeing Mr. Parada for follow-up today. As you know he is a 80 year old right-handed male with a history of Parkinson's Disease since 2021. Subjective Previous Plan-09/21/2024 Visit: Add nighttime dose at bedtime of 1 tab Sinemet 25/100 CR. If awakening in the middle of the night, able to take 1 tab Sinemet 25/100 CR. Cut down to propranolol 10mg BID for one week then stop. Return to clinic in 6 months. Interested in clinical research? Not discussed Interval History: Mr. Parada is accompanied by his , who provides additional history. Glenn reports persistent lightheadedness, particularly in the mornings, which has been more pronounced recently. Yesterday, he felt faint throughout the morning, prompting a visit to his primary care physician, who diagnosed him with orthostatic hypotension and prescribed midodrine. He has not yet started this medication due to concerns about interactions with his current medications. He is currently taking propranolol for tremors, which worsened when he attempted to discontinue the medication. He also takes tamsulosin twice daily for urinary symptoms. He has experienced two recent falls, which he attributes to feeling lightheaded. He reports lower back pain and stiffness, particularly when walking, which limits his ability to walk as far as he used to. He does not notice any fluctuations in his symptoms related to medication timing. He experiences constipation, which has been better controlled since starting Motegrity. However, he reports no bowel movements for the past two days. He uses GoLYTELY occasionally, about once a month, for constipation relief. He reports drooling, primarily at night, but also during the day, describing it as squirting out. He expresses a desire to manage this symptom. He reports good sleep quality and does not endorse depression, anxiety, compulsive behaviors, hallucinations, or apathy. He no longer takes melatonin and does not have significant issues with acting out dreams, though his notes some mumbling and small movements during sleep. He does not experience restless leg sensations or leg swelling. His reports some memory problems, particularly with telling time and managing his medication schedule. He does not endorse hallucinations or loss of motivation. He participates in an exercise class and last engaged in formal physical therapy in the fall of 2022. He has not had recent eye or skin exams. Other symptoms and details are noted below in the completed questionnaire. Movement Disorders Medications Schedule - as of the start of the visit: Medications 530AM 1130AM 6PM Bedtime 12am (when you wake up) Sinemet 25/100 CR 1 1 1 1 1 Propranolol 10 mg (for tremor) 1 1 Parkinson's Motor Complications Medication benefit onset: unclear Medication duration: unclear Wearing off: no Painful off-state dystonia: no (Comment: He gets some cramping in his calves when he first wakes up) Dyskinesia: no Prior Anti-Parkinson Therapies Carbidopa/Levodopa CR Ques (more content not included)... Normal [facility] Culture, Throaton 03-04-2025 CUT Normal throat crow isolated. No beta-hemolytic streptococcus isolated. Normal [facility] Comment on above: Performed By: #### M 100.1000 #### [facility] Laboratory [address] [place], [place], [id number] Throat specimen bacteria yo ntification by cultureOrdered By: Ariel Duque on 03-01-2025 Bacteria identified Cx Nom (Throat) [facility] Culture, Throaton 02-10-2025 CUT Penicillin is the dr ug of choice for Beta Streptococcal infections. For Penicillin allergic patients, Erythromycin may be used. Streptococcus group G Amount Growth 2+ Normal [facility] Comment on above: Performed By: #### M 100.1000 #### [facility] Laboratory [address]. [place], [place], [id number] Throat specimen bacteria yo ntification by cultureOrdered By: Ariel Duque on 02-08-2025 Bacteria identified Cx Nom (Throat) Streptococcus group G Abnormal [facility] Culture, Throaton 12-31-2024 CUT #1 Penicillin is the drug of choice for Beta Streptococcal infections. For Penicillin allergic patients, Erythromycin may be used. Streptococcus group F Amount Growth 3+ Normal [facility] Comment on above: Performed By: #### M 100.1000 #### [facility] Laboratory [address] [place], [place], [id number] Throat specimen bacteria yo ntification by cultureOrdered By: Ariel Duque on 12-28-2024 Bacteria identified Cx Nom (Throat) Streptococcus group F Abnormal [facility] Brain/Head without Contrasto n 12-26-2024 Brain/Head without Contrast [facility] Imaging Services [address] [place] [address] Brain/Head without Contrast MR#: [id number] Acct: [id number] Name: GLENN PARADA DEV Rep #: [id number] : 1945 M 79 From: Ranulfo Segovia PCP: Dr. Eloina Chi MD Status: REG ER Study: Brain/Head without Contrast Date of Exam: 12/12 03/07 Exam# [id number] Ordering Dr: Carlos Dennis MD EXAM: BRAIN/HEAD WITHOUT CONTRAST CLINICAL HISTORY: TRAUMA COMPARISON: 04/2024 TECHNIQUE: Noncontrast head CT performed FINDINGS: Right frontal soft tissue swelling. Global volume loss detected. Mild chronic small vessel ischemic change noted. Encephalomalacia again seen in the left occipital lobe. No mass effect. No midline shift. Ethmoid sinus mucosal thickening. CT/Brain/Head without Contrast IMPRESSION: No acute traumatic findings. Senescent changes. Reading Location: [facility] CC: Dr. Carlos Dennis MD; Dr. Eloina Chi MD Claim Investigator: Signed Normal [facility] Emergency Department Summary on 12-26-2024 Emergency Department Summary [facility] Medical Records Department [address] [place] [address] Emergency Department Summary 12/26/24 MR#: [id number] Acct: [id number] Name: GLENN PARADA DEV Rep #: [id number] : 1945 79 From: Carlos Dennis MD PCP: Dr. Eloina Chi MD Status:[facility] ER Location: ED HPI HPI - Fall History of Present Illness Chief Complaint: Fall Narrative Narrative: 79-year-old male past medical history of Parkinson's disease, presents with his status post fall. His states that he took a header into the sidewalk. He must of tripped over his toes or caught his toe and fell forward. He sustained abrasions to his forehead and an avulsion injury to the bridge of his nose. He denies loss of consciousness. He was able to ambulate afterwards. This happened approximately an hour ago. He did complain of some right sided neck pain but denies other injuries except to his left hand. He sustained an abrasion to the back of his left hand at the base of the third/middle digit. He is unsure of his last tetanus immunization and thinks it may have been approximately 10 years ago or longer. He does not take blood thinners. [facility] Medical History Celiac disease Home Medications ???Medication ???Instructions ???Recorded ???Last Taken ???Type carbidopa ER 25 mg-levodopa 100 mg 1 tab PO TID 03/05/24 Unknown Hi story tablet,extended release levothyroxine 50 mcg tablet 50 mcg PO QDAY 03/05/24 Unknown Hi story omeprazole 40 mg capsule,delayed 40 mg PO QDAY 03/05/24 Unknown His tory release propranolol 20 mg tablet 20 mg PO BID 03/05/24 Unknown Hist ory tamsulosin 0.4 mg capsule 0.4 mg PO BID 03/05/24 Unknown His tory prucalopride 2 mg tablet 2 mg PO DAILY 05/09/24 Unknown His tory (Motegrity) Allergy/AdvReac Type Severity Reaction Status Date / Time gluten Allergy Abd Verified 12/26/24 17:15 cramps/diarrhea Social History Smoking Status: Former smoker ROS ROS ED ROS Narrative Review of systems positive for abrasion to forehead, small skin avulsion to bridge of nose, right sided neck pain that resolved. Abrasion to dorsum of left hand with tenderness. Denies loss of consciousness, no prodromal symptoms, no other injuries. EXAM Physical Exam Narrative Exam Narrative: GCS 15. ABCs intact. HEENT examination does show an abrasion without active bleeding to the middle of the forehead with less than 0.5 cm skin avulsion to the bridge of the nose without active bleeding. Cardiovascular examination feels a regular rate and rhythm. Lungs are clear to auscultation bilaterally. Abdomen soft nontender with normoactive bowel sounds. Inspection of the left hand on the dorsum does reveal mild tenderness to palpation on and around an abrasion without active bleeding more in the distal metacarpal area of the third digit. Palpable radial pulse. Able to oppose thumb. Remote amputation of tip of second digit, but good capillary refill distally on other fingers. Neurological examination shows him to be awake, alert, oriented x 3, nonfocal, nonlateralizing. Able to raise arms above head without difficulty. Const Vital Signs: 12/26/24 17:15 12/26/24 17:19 12/26/24 19:28 Temperature 97.9 F 98.2 F Temperature Source Oral Pulse Rate 78 79 Respiratory Rate 18 18 Respiratory Effort Normal Non-Labored Respiratory Depth Normal Respiratory Pattern Normal Blood Pressure 138/82 H 123/70 H Blood Pressure Mean 100 87 Pulse Ox 97 96 Oxygen Delivery Method Room Air Room Air MDM MDM MDM Narrative Medical decision making narrative: Differential diagnosis includes but not limited to intracranial hemorrhage versus closed head injury. Given his uncertainty of his last tetanus immunization, 1 was ordered here in the emergency department. His wounds will be cleansed and dressed. I do not feel that it is amenable to suturing, the avulsion on the bridge of his nose, and is very small. CT will be obtained to rule out fracture or intracranial hemorrhage. CT of the C-spine will also be obtained to rule out fracture. Regarding his left hand, he is right-hand dominant and x-rays will be obtained to rule out contusion versus fracture of his nondominant hand. Patient declines any oral analgesics here in the emergency department. My individual interpretation of the x-ray of his left hand, there is no acute fracture. I reviewed the radiology report which confirms my independent interpretation. I reviewed the radiology report of the CT of the brain and there are senescent changes but no evidence of an acute process, no hemorrhage or skull fracture. I reviewed the radiology report of the CT of the cervical spine and there is no evide (more content not included)... Normal [facility] Hand Min 3 Viewson 5 Hand Min 3 Views [facility] Imaging Services [address] [place], [place] [id number] Hand Min 3 Views MR#: [id number] Acct: [id number] Name: GLENN PARADA DEV Rep #: [id number] : 1945 M 79 From: Ariel King MD PCP: Dr. Eloina Chi MD Status: REG ER Study: Hand Min 3 Views Date of Exam: 12/26/24 Exam# [id number] Ordering Dr: Carlos Dennis MD PROCEDURE: HAND MIN 3 VIEWS REASON FOR EXAM: TRAUMA TECHNIQUE: 3 view(s) of the left hand COMPARISON: None. FINDINGS: No visible fracture. No suspicious bone lesion. Normal alignment. 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 Mild narrowing of the distal interphalangeal joints of the 2nd through 5th digits. Soft tissues are unremarkable. RAD/Hand Min 3 Views IMPRESSION: No acute osseous abnormalities. 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 Mild degenerative changes of the distal interphalangeal joints. Reading Location: [id number] CC: Dr. Carlos Dennis MD; Dr. Eloina Chi MD Claim Investigator: Signed Normal [facility] Spine Cervical without Contr ason 12-26-2024 Spine Cervical without Contras [facility] Imaging Services [address] [place] [id number] Spine Cervical without Contras MR#: [id number] Acct: [id number] Name: GLENN PARADA DEV Rep #: [id number] : 1945 M 79 From: Ranulfo Segovia PCP: Dr. Eloina Chi MD Status: REG ER Study: Spine Cervical without Contras Date of Exam: 0 12/26/24 Exam# [id number] Ordering Dr: Carlos Dennis MD PROCEDURE: SPINE CERVICAL WITHOUT CONTRAS REASON FOR EXAM: TRAUMA TECHNIQUE: Cervical spine CT without contrast. COMPARISON: None. FINDINGS: Scattered mild multilevel degenerative disc disease. There is no evidence of acute cervical spine fracture. Vascular calcification. Prevertebral soft tissues within normal limits. CT/Spine Cervical without Contras IMPRESSION: No findings of acute cervical spine fracture. One or more dose reduction techniques were used (e.g., Automated exposure control, adjustment of the mA and/or kV according to patient size, use of iterative reconstruction technique). Reading Location: [id number] CC: Dr. Carlos Dennis MD; Dr. Eloina Chi MD Claim Investigator: Signed Normal [facility] SP/HP.SP.Tanvir 12-23-2024 SP/HP.SP.EV [facility] spital Speech Pathology [facility] [place] [address] / REHABILITATION SERVICES INITIAL EVALUATION MR#: [id number] Acct: [id number] Name: GLENN PARADA DEV Rep #: [id number] : 1945 79 From: Adamaris Airas M.S., [facility] Referring Dr.: Dr. Eloina Chi MD Status: REG R Insurance: [facility] SELF PAY INSURANCE Visit History Visit Info Date of Eval: 12/23/24 Visit: 1 First Press Operator: JULIENNE Harvey Attending Doctor: Referring Doctor: Reason for Referral: DYSHPAGIA/RX HERE Previous speech therapy: No Other Relevant Medical History/Diagnoses/Surgery: GLENN PARADA is an 79 year old male who presents to [facility] d/t concerns with dysphagia per doctor's script. He was referred for the evaluation from Dr. Eloina Chi. Pt reporting an intermittent tickle and pain on the left side of his throat for the past 2-3 months. He has a hx of Parkinson's disease (dx about 3 years ago) along with GERD (dx for greater than 10 years). Glenn denies any difficulty with eating or drinking during PO intake. He also denies any difficulty when taking his medications. He was accompanied to his appt with his , Janel. Medications related to this diagnosis: Levothyroxine, Motegrity, tamsulosin, propanolol, carbidopa/levodopa, omeprazole Smoking Status: Never smoker Pain Is pain an issue with your current prescribed condition?: No Personal Preferred language: Congolese Patient Allergies Allergies Allergies: Allergies No Known Allergies Allergy (Verified 10/04/24 08:10) Subjective Dysphagia Symptoms Reported Other: Intermittent pain on left side of throat Current Diet Solids Current Diet: Regular Current Diet Liquids Current Liquids: Thin Comments Oral Mechanism Exam: -: Prior to PO intake, Pt participated in oral mechanism exam. Pt with full ROM of oral musculature. Pt with symmetrical bilateral velar movement. OBSERVED A DIME-SIZED EXCRESCENCE ON THE LEFT TONSIL. MIXTURE OF WHITE, BOSS, AND BLACK IN COLOR. PITTED/ROUGH TEXTURE ON SURFACE. SURROUNDING TISSUE WAS RED AND ENDEMIC. SEE PHOTO BELOW. SUSPECT THIS MAY BE THE CAUSE OF THE PAIN PATIENT HAS BEEN EXPERIENCING. Education provided to patient and his re: recommendation to complete an evaluation with an ENT to determine pathology of the excrescence. Discussed having ENT refer back to speech therapy if they feel that would be appropriate. However given patient's report of no s/sx of penetration/aspiration with food, drinks, or medication, suspect this is the underlying cause of his pain/tickle. Education re: Dysphagia in Parkinson's Disease: -: Education was provided re: the potential for dysphagia to develop as his Parkinson's disease progresses. Provided examples of signs of dysphagia to pay attention to during PO consumption or the presence of aspiration pneumonia. Both patient and patient's acknowledge understanding. They reported that is why they were concerned today because they were aware this was a possibility. Discussed that if ENT felt they needed to return to speech therapy then we would likely acquire an instrumental evaluation to objectively assess swallow function. If not, then this would still be the plan in the future should he start to develop dysphagia symptoms. At the time of this evaluation, he has not participated in an instrumental evaluation. Objective Dysphagia Administered by Administered by: Self Thin Liquids Administred via: Cup Oral Transit: WNL Bolus clearance: fully cleared Gagging: No Cough: none observed/unable to assess Pharyngeal phase: immediate laryngeal elevation Comments: Pt consuming 3oz of water with consecutive swallows with no observed s/sx of penetration/aspiration. Impact Impact on Safety Functioning: No Limitations Recommendations Modified Barium Swallow/Cookie Swallow Recommended: No Swallowing Treatment: No Diet Texture Recommendations Solids: Regular (Level 7) Liquids: Thin (Level 0) Results Swallowing Within Normal Limits: Yes (Swallow Function Grossly WNL) Modified Barium Results Hx If Applicable Enter into a NOTE MBS Results (from prior exam): 12/23/24 13:21 Speech Therapy by Adamaris Arias FIGURE 1. Dime-sized excrescence on left tonsil. White, boss, and black in color. Pitted/rough texture. Obtained image at speech therapy evaluation on 12/23/2024. Initialized on 12/23/24 13:21 - END OF NOTE Swallowing Performance Scale Swallowing Performance Scale Swallowing Performance Scale Result: 1 Normal Reference: Neuro-QoL instrument Radiation Oncology Patient Plan Plan Plan: Speech therapy is not warranted at this time. Recommended Glenn participate in an ev (more content not included)... Normal [facility] 11-06-2024 [facility] Telephone ([facility]ST[facility]) -- GLENN PARADA ([id number]) 1945 M Date Time Provider Department 11/06/24 SALMA CHAMBERLAIN GSTNOR During your visit today, we recorded the following information about you: Allergies As of Date: 11/06/2024 (No Known Allergies) Date Reviewed: 09/21/2024 Reviewed by: Berenice Sepulveda, SIMRAN - Fully Assessed Reason for Visit: Medication Authorization [1699] Prescriptions as of 11/09/2024 - prucalopride (MOTEGRITY) 2 mg tab tablet Take 1 tablet (2 mg) by mouth once daily. - polyethylene glycol 3350 (MIRALAX) 17 gram packet Take 17 g by mouth two times a day. Dissolve dose in 4 - 8 ounces of liquid and take as directed. - carbidopa-levodopa CR (SINEMET CR) 25-100 mg per tablet Take 1 tablet by mouth four times daily. At 6am, 12pm, 6pm, 8pm and 12am (if awakening at night) - peg 3350-Electrolytes (GOLYTELY) 236-22.74-6.74 -5.86 gram suspension DRINK NEEDED FOR CONSTIPATION - levothyroxine (SYNTHROID) 50 mcg tablet Take 1 tablet by mouth every afternoon. - lactulose 10 gram/15 mL solution Take 30 mL by mouth as needed. - omeprazole (PRILOSEC) 40 mg capsule Take 1 capsule by mouth once daily. - tamsulosin (FLOMAX) 0.4 mg Take 1 capsule by mouth every 12 hours. - OTC NUTRITIONAL SUPPLEMENT Take 1 tablet by mouth once daily. Vitamin C, Vitamin B Complex, Vitamin B-12, and Calcium. - propranolol (INDERAL) 20 mg tablet Take 1 tablet by mouth every 12 hours. Problem List As Of Date 11/06/2024 Noted Resolved Gastroesophageal reflux disease [K21.9] 09/27/2023 Diagnosed: 12/19/2023 Parkinson's disease without dyskinesia or fluct*03/17/2024 Constipation [K59.00] 03/17/2024 Orthostatic hypotension [I95.1] 03/17/2024 Encounter Status:Closed by ARIADNA FOX on 11/09/24 [facility] Visit Reporton 1 12-05-2023 Urgent Care Visit Report [facility] [address], [address] [place] [address] OFFICE VISIT Date of Service: 10/04/24 MR#: [id number] Acct: [id number] Name: PARADAGLENN GRIMALDO DEV Rep #: [id number] : 1945 Provider: MELISSA ferraro Age/Sex: 79/M Location: [facility] Status: Signed Intake Vital Signs 05/09/24 06:22 10/04/24 08:10 Height 5 ft 8 in BP 120/70 Blood Pressure Location Lt brachial Position Sitting Respiration 12 Pulse 77 Pulse Source NIBP Temp 98.2 F Temp Source Oral Pulse Oximetry (%) 97 Oxygen Delivery Method room air Intake Visit Reasons: CAT BITE Chief Complaint: Constipation Voice Coach Required: No Is patient in pain?: No Allergies No Known Allergies Allergy (Verified 10/04/24 08:10) Medications ???Medication ???Instructions ???Recorded ???Confirmed ???Type carbidopa ER 25 mg-levodopa 100 mg 1 tab PO TID 03/05/24 10/04/24 History tablet,extended release levothyroxine 50 mcg tablet 50 mcg PO QDAY 03/05/24 10/04/24 History omeprazole 40 mg capsule,delayed 40 mg PO QDAY 03/05/24 10/04/24 History release propranolol 20 mg tablet 20 mg PO BID 03/05/24 10/04/24 History tamsulosin 0.4 mg capsule 0.4 mg PO BID 03/05/24 10/04/24 History prucalopride 2 mg tablet 2 mg PO DAILY 05/09/24 10/04/24 History (Motegrity) amoxicillin 875 mg-potassium 1 tab PO BID 7 days #14 tabs 10/04/24 10/04/24 Rx clavulanate 125 mg tablet Have you fallen in the past year?: No PFSH Medical History Celiac disease Social History Smoking Status: Former smoker HPI HPI Chief Complaint: Constipation Details: GLENN PARADA, is a 79 M who presents to the office today for cat bite on left hand, is red and swollen, patient states it itches. Patient acknowledges cat bite to this morning. This is from his own domesticated cat. He states cat is up-to-date on all vaccinations. ROS Const Constitutional: No body ache, chills, fatigue, fever(s) or headache(s) ENT ENT: No headache(s) Skin Skin: Positive for redness Neuro Neurology: No headache(s) Endo Endocrine: No fatigue Exam Const General: cooperative, healthy appearing, comfortable and no acute distress Orientation: alert and awake Skin General: other Other: Left hand small wound, no drainage. Bleeding controlled. Redness noted around. Edema noted. Coding Level of Care Code Off vis,est,level 3 Diagnoses Cat bite, initial encounter W55.01XA Encounter type: initial encounter Assessment and Plan Assessment and Plan (1) Cat bite: Status: Acute Qualifiers: Encounter type: initial encounter Qualified Code(s): W55.01XA - Bitten by cat, initial encounter Plan: This is superficial. No obvious injury to nerve or tendon. He has full range of motion and sensation. Will add antibiotic today. Encouraged to get plenty of rest, drink lots of clear liquids, and use Tylenol or Ibuprofen (unless contraindicated) for fever and comfort. Patient also educated on other symptomatic management techniques. To be seen in 7-10 days if no improvement; sooner if worsening of symptoms.??? Patient advised of potential red flags and when appropriate to report to the ED.??? Patient verbalized understanding and agreement with all the above. Medications: New amoxicillin-pot clavulanate 875-125 mg 1 TAB PO BID 7 days 14 tabs 0RF Clinical Quality Measures Falls Risk Screening/Assistive Devices Have you fallen in the past year?: No 10/04/24 0823 Date Ranulfo Mcbride Signature: Date (if applicable) CC: Dr. Eloina Chi MD [facility] 09-21-2024 [facility] Office Visit (NREUS2 ) -- GLENN PARADA ([id number]) 1945 M Date Time Provider Department 09/21/24 3:30 PM JOSEPH SARABIA NREUS2 During your visit today, we recorded the following information about you: Weight Height 74.8 kg 1.727 m Joseph Sarabia MD 10/04/2024 7:14 PM Signed [facility] - FOLLOW UP EVALUATION MD Eyal Ross [address] [address] Dear Eloina Chi MD: I had the pleasure of seeing Mr. Parada for follow-up today. As you know he is a 79 year old right-handed male with a history of Parkinson's Disease since 2021. He is seen with his . Subjective Previous Plan-06/25/2024 Visit: Parkinson's disease: Continue current medication schedule except add one dose of Sinemet CR when you wake up at midnight to go to the bathroom to see if your morning starts off better in regard to your tremor, overall movement, and thinking Continue exercising Orthostatic hypotension (drops in blood pressure) : As we discussed your blood pressure continues to drop. Please make sure you are changing positions slowly and drinking plenty of water. Cognition: Since you had to leave early today, at your next office visit, a BACH will be done in the office after you see Dr. Sarabia. Interval History: -He has been taking the midnight Sinemet if he wakes up in the middle of the night. When he does take it, symptoms in the morning are better controlled, including his tremor and confusion. -No issues with wearing off early from Sinemet. No side effects from Sinemet. No dyskinesias or trouble sleeping. -Occasionally acts out his dreams, with intermittent arm movements or shoving. -Takes Miralax BID for constipation. 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 -A few days prior, he had an episode of dizziness in the morning after getting up. Usually moves from sitting to standing slowly. Drinks more than 64 ounces per day per . Does not wear compression stockings. 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 -He walks twice a day for 20 minutes at a time, for approximately 1 mile. He does home exercises with a video (PD specific exercises). Movement Disorders Medications Schedule - as of the start of the visit: Medications 6AM 1130AM 6PM 9PM 12am (when you wake up) Sinemet 25/100 CR 1 1 1 1 Propranolol 20 mg 1 1 Parkinson's Motor Complications Medication benefit onset: 5 minutes Medication duration: 6 hours Wearing off: no Painful off-state dystonia: no (Comment: He gets some cramping in his calves when he first wakes up) Dyskinesia: no Prior Anti-Parkinson Therapies Carbidopa/Levodopa CR Questionnaires: In addition, the following areas that may be affected by abnormal involuntary movements were evaluated: Daily activities Difficulties with eatin (none) Difficulties in dressing: Yes (slight) Difficulties with hygiene activities: 0 (none) Difficulties with handwriting: Yes (mild) Difficulties with doing hobbies and other activities: 0 (none) Difficulties turning in bed: Yes (slight) Difficulties getting out of bed, car or chair: Yes (slight) Tremors/Gait/Balance Shaking or tremors: Yes (slight) Walking and balance problems: Number of falls in the Last Month: none Gait freezin (none) Autonomic/Pain Lightheadeness on standing: Yes (mild) Urinary problems: 0 (none) Constipation problems: Yes (severe) Pain and other sensations: 0 (none) Speech/Swallowing Speech problems: Yes (mild) Drooling: Yes (severe) Chewing and swallowing problems: 0 (none) Sleep/Fatigue Sleep problems: 0 (none) Daytime sleepiness: Yes (mild) Fatigue: 0 (none) Mood/Behavior Depression: PHQ-9 Score: 1 usually representing no significant (0-4) depression. Anxiety: PETRA-7 Total Score: 0 usually representing no significant (0-4) anxiety. Finally, the following table shows the patient's overall global physical and mental health using the PROMIS scale: PROMIS-10 Flowsheet Row Office Visit from 09/21/2024 in [facility] Visit from 06/25/2024 in [facility] Global Physical Health T Score 50.8 44.9 Global Mental Health T Score 53.3 56 0-10 Standard Pain Scale 4 4 *PROMIS-10 scoring scale: mean = 50, over 50 is above average, under 50 is below average ALLERGIES No Known Allergies Current Outpatient Medications Medication Sig peg 3350-Electrolytes (GOLYTELY) 236-22.74-6.74 -5.86 gram suspension DRINK NEEDED FOR CONSTIPATION levothyroxine (SYNTHROID) 50 mcg tablet Take 1 tablet by mouth every afternoon. lactulose 10 gram/15 mL solution Take 30 mL by mouth as needed. omeprazole (PRILOSEC) 40 mg capsule Take 1 capsule by mouth once daily. tamsulosin (FLOMAX) 0.4 mg Take 1 capsule by mouth every 12 hours. OTC NUTRITIONAL SUPPLEMENT (more content not included)... [facility] Telephone ([facility]) -- GLENN PARADA ([id number]) 1945 M Date Time Provider Department 08/10/24 ALISSON SARABIA During your visit today, we recorded the following information about you: Jael Ch RN 08/10/2024 3:44 PM Signed Call to PCP to see if we can wean him down or off the propranolol since his blood pressure tends to be low and drop or is he on it for another reason and it should remain at the current dose - per Alisson Sarabia Call to PCP, busy signal. Call to patient to confirm PCP information. No answer. Message left for return call. Jael Ch RN 08/11/2024 11:31 AM Signed Spoke with nurse Naomi Davis, she discussed with Dr. Chi and received approval to wean down or discontinue propranolol. Alisson Sarabia APRN.[facility] 08/14/2024 4:17 PM Signed I called and spoke with him and his . He said his dizziness has not been as bad lately and decided he does not want to make this change, but will have reassessed when he sees Dr. Sarabia next month. I asked him to let me know if his symptoms return. Alisson Sarabia APRN-[employer] Allergies As of Date: 08/10/2024 (No Known Allergies) Date Reviewed: 07/30/2024 Reviewed by: Ariadna Fox MA - Fully Assessed Reason for Visit: Medication Question [7078] Prescriptions as of 08/14/2024 - SENNA 8.6 mg tab Take 1 tablet by mouth every 12 hours. - peg 3350-Electrolytes (GOLYTELY) 236-22.74-6.74 -5.86 gram suspension DRINK NEEDED FOR CONSTIPATION - carbidopa-levodopa CR (SINEMET CR) 25-100 mg per tablet Take 1 tablet by mouth four times daily. At 6am, 12pm, 6pm, and 12am - prucalopride (MOTEGRITY) 2 mg tab tablet Take 2 mg by mouth once daily. - levothyroxine (SYNTHROID) 50 mcg tablet Take 1 tablet by mouth every afternoon. - lactulose 10 gram/15 mL solution Take 30 mL by mouth as needed. - omeprazole (PRILOSEC) 40 mg capsule Take 1 capsule by mouth once daily. - tamsulosin (FLOMAX) 0.4 mg Take 1 capsule by mouth every 12 hours. - OTC NUTRITIONAL SUPPLEMENT Take 1 tablet by mouth once daily. Vitamin C, Vitamin B Complex, Vitamin B-12, and Calcium. - propranolol (INDERAL) 20 mg tablet Take 1 tablet by mouth every 12 hours. Problem List As Of Date 08/10/2024 Noted Resolved Gastroesophageal reflux disease [K21.9] 09/27/2023 Diagnosed: 12/19/2023 Parkinson's disease without dyskinesia or fluct*03/17/2024 Constipation [K59.00] 03/17/2024 Orthostatic hypotension [I95.1] 03/17/2024 Encounter Status:Closed by JAEL CH on 08/12/24 Normal [facility] CBC W Auto Differential pane l (Bld)on 07-31-2024 Basophils (Bld) [#/Vol] 0.06 10*3/uL Normal <0.11 [facility] Comment on above: Order Comment: Speci men Type: BLOOD SPECIMENOrdering Facility: [facility] Address: [address] [place] [address] Performed By: #### 5 7021-8 ####[facility] [id number] [place] [address] [place] Basophils/100 WBC (Bld) 0.8 % Normal [facility] Comment on above: Order Comment: Speci men Type: BLOOD SPECIMENOrdering Facility: [facility] Address: [address] [place] [address] Performed By: #### 5 7021-8 ####[facility] [id number] [place] [address] [place] Differential cell count method Nom (Bld) Auto Normal [facility] Comment on above: Order Comment: Speci men Type: BLOOD SPECIMENOrdering Facility: [facility] Address: [address] [place] [address] Performed By: #### 5 7021-8 ####[facility] IRAISSEWARDLEONIDLIA [id number] [place] [address] [place] Eosinophils (Bld) [#/Vol] 0.26 10*3/uL Normal <0.46 [facility] Comment on above: Order Comment: Speci men Type: BLOOD SPECIMENOrdering Facility: [facility] Address: [address] [place] [address] Performed By: #### 5 7021-8 ####[facility] [id number] [place] [address] [place] Eosinophils/100 WBC (Bld) 3.4 % Normal [facility] Comment on above: Order Comment: Speci men Type: BLOOD SPECIMENOrdering Facility: [facility] Address: [address] [place] [address] Performed By: #### 5 7021-8 ####[facility] [id number] [place] [address] [place] Erythrocyte distribution width (RBC) [Ratio] 12.7 % Normal 11.5-15.0 [facility] Comment on above: Order Comment: Speci men Type: BLOOD SPECIMENOrdering Facility: [facility] Address: [address] [place] [address] Performed By: #### 5 7021-8 ####[facility]ITALNCLIA [id number] [place] [address] [place] Hematocrit (Bld) [Volume fraction] 38.0 % Low 39.0-51.0 [facility] Comment on above: Order Comment: Speci men Type: BLOOD SPECIMENOrdering Facility: [facility] Address: [address] [place] [address] Performed By: #### 5 7021-8 ####[facility] CENTERWNCLIA [id number] [place] [address] [place] Hemoglobin (Bld) [Mass/Vol] 13.0 g/dL Normal 13.0-17.0 [facility] Comment on above: Order Comment: Speci men Type: BLOOD SPECIMENOrdering Facility: [facility] Address: [address] [place] [address] Performed By: #### 5 7021-8 ####[facility] AKRONLIA [id number] [place] [address] [place] Immature granulocytes (Bld) [#/Vol] 10*3/uL Normal <0.10 [facility] Comment on above: Order Comment: Speci men Type: BLOOD SPECIMENOrdering Facility: [facility] Address: [address] [place] [address] Performed By: #### 5 7021-8 ####[facility] [id number] [place] [address] [place] Immature granulocytes/100 WBC (Bld) 0.1 % Normal [facility] Comment on above: Order Comment: Speci men Type: BLOOD SPECIMENOrdering Facility: [facility] Address: [address] [place] [address] Performed By: #### 5 7021-8 ####[facility] [id number] [place] [address] [place] Lymphocytes (Bld) [#/Vol] 2.55 10*3/uL Normal 1.00-4.00 [facility] Comment on above: Order Comment: Speci men Type: BLOOD SPECIMENOrdering Facility: [facility] Address: [address] [place] [address] Performed By: #### 5 7021-8 ####[facility]ITALNCLIA [id number] [place] [address] [place] Lymphocytes/100 WBC (Bld) 33.1 % Normal [facility] Comment on above: Order Comment: Speci men Type: BLOOD SPECIMENOrdering Facility: [facility] Address: [address] [place] [address] Performed By: #### 5 7021-8 ####[facility] [id number] [place] [address] [place] MCH (RBC) [Entitic mass] 30.9 pg Normal 26.0-34.0 [facility] Comment on above: Order Comment: Speci men Type: BLOOD SPECIMENOrdering Facility: [facility] Address: [address] [place] [address] Performed By: #### 5 7021-8 ####[facility] [id number] [place] [address] [place] MCHC (RBC) [Mass/Vol] 34.2 g/dL Normal 30.5-36.0 [facility] Comment on above: Order Comment: Speci men Type: BLOOD SPECIMENOrdering Facility: [facility] Address: [address] [place] [address] Performed By: #### 5 7021-8 ####[facility] [id number] [place] [address] [place] MCV (RBC) [Entitic vol] 90.3 fL Normal 80.0-100.0 [facility] Comment on above: Order Comment: Speci men Type: BLOOD SPECIMENOrdering Facility: [facility] Address: [address] [place] [address] Performed By: #### 5 7021-8 ####[facility] [id number] [place] [address] [place] Monocytes (Bld) [#/Vol] 0.75 10*3/uL Normal <0.87 [facility] Comment on above: Order Comment: Speci men Type: BLOOD SPECIMENOrdering Facility: [facility] Address: [address] [place] [address] Performed By: #### 5 7021-8 ####[facility] MILLTOWNCLIA [id number] [place] [address] [place] Monocytes/100 WBC (Bld) 9.7 % Normal [facility] Comment on above: Order Comment: Speci men Type: BLOOD SPECIMENOrdering Facility: [facility] Address: [address] [place] [address] Performed By: #### 5 7021-8 ####[facility] MILLWNCLIA [id number] [place] [address] [place] Neutrophils (Bld) [#/Vol] 4.08 10*3/uL Normal 1.45-7.50 [facility] Comment on above: Order Comment: Speci men Type: BLOOD SPECIMENOrdering Facility: [facility] Address: [address] [place] [address] Performed By: #### 5 7021-8 ####[facility] CENTERWNCLIA [id number] [place] [address] [place] Neutrophils/100 WBC (Bld) 52.9 % Normal [facility] Comment on above: Order Comment: Speci men Type: BLOOD SPECIMENOrdering Facility: [facility] Address: [address] [place] [address] Performed By: #### 5 7021-8 ####[facility] MILLTOWNCLIA [id number] [place] [id number] [place] Nucleated RBC (Bld) [#/Vol] 10*3/uL Normal <0.01 [facility] Comment on above: Order Comment: Speci men Type: BLOOD SPECIMENOrdering Facility: [facility] Address: [address] [place] [address] Performed By: #### 5 7021-8 ####[facility] [id number] [place] [address] [place] Nucleated RBC/100 WBC (Bld) [Ratio] 0.0 /100 WBC Normal [facility] Comment on above: Order Comment: Speci men Type: BLOOD SPECIMENOrdering Facility: [facility] Address: [address] [place] [address] Performed By: #### 5 7021-8 ####[facility] [id number] [place] [address] [place] Platelet mean volume (Bld) [Entitic vol] 9.2 fL Normal 9.0-12.7 [facility] Comment on above: Order Comment: Speci men Type: BLOOD SPECIMENOrdering Facility: [facility] Address: [address] [place] [address] Performed By: #### 5 7021-8 ####[facility] [id number] [place] [address] [place] Platelets (Bld) [#/Vol] 232 10*3/uL Normal 150-400 [facility] Comment on above: Order Comment: Speci men Type: BLOOD SPECIMENOrdering Facility: [facility] Address: [address] [place] [address] Performed By: #### 5 7021-8 ####[facility] [id number] [place] [address] [place] RBC (Bld) [#/Vol] 4.21 10*6/uL Normal 4.20-6.00 [facility] Comment on above: Order Comment: Speci men Type: BLOOD SPECIMENOrdering Facility: [facility] Address: [address] [place] [address] Performed By: #### 5 7021-8 ####[facility] [id number] [place] [address] [place] WBC (Bld) [#/Vol] 7.71 10*3/uL Normal 3.70-11.00 [facility] Comment on above: Order Comment: Chela barfield Type: BLOOD SPECIMENOrdering Facility: [facility] Address: [address] [place] [address] Performed By: #### 5 7021-8 ####[facility] [id number] [place] [id number] [place] [facility] HLA-DQ GENOTYPE on 07-31-2024 [place] INTERPRETATION The HLA-DQ genotype of the patient is supportive of an increased risk of celiac disease. Normal [facility] Comment on above: Order Comment: Chela barfield Type: BLOOD SPECIMENOrdering Facility: [facility] Address: [address] [place] [address] Performed By: #### C KELLI ####[facility] [id number] [address] [place] CELIAC CATEGORY Category 7 Normal [facility] Comment on above: Order Comment: Chela barfield Type: BLOOD SPECIMENOrdering Facility: [facility] Address: [address] [place] [address] Result Comment: CATEGORY DQ HAPLOTYPE RELATIVE RISK Category 7 DQ2.2 AND DQ2.5 Extremely High Category 7 DQ2.5 AND DQ2.5 Extremely High Category 6 DQ2.2 AND DQA1*05, DQB1*03:01 Very High Category 5 DQ2.2 AND DQ8 Very High Category 5 DQ2.5 AND DQ8 Very High Category 4 DQ8 AND DQ8 High Category 3 DQ2.5 AND DQA1*05, DQB1*03:01 High Category 3 DQ2.5 AND DQA1*02:01, DQB1*03:03 High Category 3 DQ2.5 AND DQA1*03, DQB1*02 High Category 3 DQ2.5 AND OTHER LOW RISK ALLELE High Category 3 DQ2.2 AND DQA1*05, DQB1*03:03 High Category 2 DQ8 AND OTHER LOW RISK ALLELE Moderate Category 1 DQ2.2 AND OTHER LOW RISK ALLELE Low Category 0 NEGATIVE FOR DQ2.2 Negative Category 0 NEGATIVE FOR DQ2.5 Negative Category 0 NEGATIVE FOR DQ8 Negative DQ2.2 = DQA1*02:01, DQB1*02:02 DQ2.5 = DQA1*05, DQB1*02:01 DQ8 = DQA1*03, DQB1*03:02 The identification of one of these HLA-DQ genotypes is not, by itself, sufficient for the diagnosis of celiac disease, since both DQ2 and DQ8 are relatively common in the general population. The strongest reported HLA associations with celiac disease include DQ2 (DQ2.5 or DQA1*05-DQB1*02:01 & DQA2.2 or DQA1*02:01-DQB1*02:02) and DQ8 (DQA1*03:01/DQB1*03:02). This test is useful for family members of celiac patients and patients with negative serology results. This testing can rule out celiac disease with high negative predictive value (NPV) of 95-100% depending on the ethnic background. In cases of an ambiguous HLA allele assignment where multiple rare alleles cannot be excluded, the most common HLA allele is reported. References: 1. Angely L, Bridgette J, Maico K, et al. Cost-effective HLA typing with tagging SNPs predicts celiac disease risk haplotypes in the [place]ian, Arabic and Ethiopian populations. Immunogenetics. 2009 Jan;61(4):247-56. 2. Akua ACOSTA. Celiac disease: dissecting a complex inflammatory disorder. Ruby Rev Immunol. 2002 Jun;2(9):647-55. 3. Calderon E, Connor HS, Malinda CA, et al. Risk of pediatric celiac disease according to HLA haplotype and country. N Engl J Med. 2014 ;371(1):42-9. HLA typing performed by PCR-RSSOP and/or NGS. This test was developed and its performance characteristics determined by [employer]. The test has not been cleared or approved by the [place] FDA. However, FDA approval was not necessary since this lab is certified under CLIA for high complexity testing. Test performed by: [place] Desk [address] [address]. CLIA [id number]. Performed By: #### C KELLI ####[place] [id number] CELIAC RISK HAPLOTYPE Positive Normal [facility] Comment on above: Order Comment: Speci men Type: BLOOD SPECIMENOrdering Facility: [facility] Address: [address] [place] [address] Performed By: #### C KELLI ####[facility] LABORATORIESCLIA [id number] [place] [address] [facility] [place] HLA-DQA1 GENOTYPE HLA-DQA1*: 05, 02:01 Normal [facility] Comment on above: Order Comment: Speci men Type: BLOOD SPECIMENOrdering Facility: [facility] Address: [address] [place] [address] Performed By: #### C KELLI ####[facility]ORATORIESCLIA [id number] [address] OF [place] HLA-DQB1 GENOTYPE HLA-DQB1*: 02:01, 02:02 Normal [facility] Comment on above: Order Comment: [facility] Type: BLOOD SPECIMENOrdering Facility: [facility] Address: [address] [place] [address] Performed By: #### C KELLI ####[facility]ORATORIESCLIA [id number] [address] OF [place] CELIAC SCREENon 07-31-2024 GLIAD DEAMIDATED IGA QUAL Negative Normal Negative, Test not Indicated [facility] Comment on above: Order Comment: [facility] Type: BLOOD SPECIMENOrdering Facility: [facility] Address: [address] [place] [address] Result Comment: This is used as an aid in diagnosis of celiac disease. Clinical correlation is required. The following results were obtained with an [employer] QUANTA Lite Gliadin IgA JF Gliadin. Gliadin IgA values obtained with different manufacturers' assay methods may not be used interchangeably. The magnitude of the reported IgA levels cannot be correlated to an endpoint titer. Performed By: #### L [id number] ####[facility] LABCLIA [id number] [address] [place] Gliadin peptide IgA Qn (S) 3 Units Normal <20 [facility] Comment on above: Order Comment: Speci men Type: BLOOD SPECIMENOrdering Facility: [facility] Address: [address] [place] [address] Performed By: #### L [id number] ####[facility] LABCLIA [id number] [place] [address] [place] INTERPRETATION No serological evide nce of celiac disease, however, if celiac disease is clinically suspected and patient is not on gluten-free diet, histological diagnosis may be considered. HLA testing may help with risk assessment. Normal [facility] Comment on above: Order Comment: Speci men Type: BLOOD SPECIMENOrdering Facility: [facility] Address: [address] [place] [address] Performed By: #### L [id number] ####[facility] LABCLIA [id number] [address] [place] TRANSGLUTAMINASE IGA ABS INTERPRETATION Negative Normal Negative [facility] Comment on above: Order Comment: Speci men Type: BLOOD SPECIMENOrdering Facility: [facility] Address: [address] [place] [address] Result Comment: The following results were obtained with [employer] QU[employer]A Lite R h-tTG IgA JF.???R h-tTG IgA values obtained with different manufacturers' assay methods may not be used interchangeably. The magnitude of the reported IgA levels cannot be corelated to an endpoint???concentration. This is used as an aid in diagnosis of celiac disease. Clinical correlation is required. Performed By: #### L [id number] ####[facility] LABCLIA [id number] [place] [address] [place] tTG IgA Qn (S) <2 Normal <4 [facility] Comment on above: Order Comment: Speci men Type: BLOOD SPECIMENOrdering Facility: [facility] Address: [address] [place] [address] Performed By: #### L [id number] ####[facility] [facility] LABCLIA [id number] [id number] [address] [place] Comprehensive metabolic 2000 panelon 07-31-2024 Albumin [Mass/Vol] 3.9 g/dL Normal 3.9-4.9 [facility] Comment on above: Order Comment: Speci men Type: BLOOD SPECIMENOrdering Facility: [facility] Address: [address] [place] [address] Performed By: #### 2 4323-8 ####[facility] MILLWNCLIA [id number] [place] [address] [place] ALP [Catalytic activity/Vol] 84 U/L Normal 38-113 [facility] Comment on above: Order Comment: Speci men Type: BLOOD SPECIMENOrdering Facility: [facility] Address: [address] [place] [address] Performed By: #### 2 4323-8 ####[facility] MEDICAL CENTERWNCLIA [id number] [place] [address] [place] ALT [Catalytic activity/Vol] 7 U/L Low 10-54 [facility] Comment on above: Order Comment: Speci men Type: BLOOD SPECIMENOrdering Facility: [facility] Address: [address] [place] [address] Performed By: #### 2 4323-8 ####[facility]OS[facility]ITALNCLIA [id number] [place] [address] [place] Anion gap [Moles/Vol] 10 mmol/L Normal 8-15 [facility] Comment on above: Order Comment: Speci men Type: BLOOD SPECIMENOrdering Facility: [facility] Address: [address] [place] [address] Performed By: #### 2 4323-8 ####[facility] MILLTOWNCLIA [id number] [place] [address] [place] AST [Catalytic activity/Vol] 14 U/L Normal 14-40 [facility] Comment on above: Order Comment: Speci men Type: BLOOD SPECIMENOrdering Facility: [facility] Address: [address] [place] [address] Performed By: #### 2 4323-8 ####[facility] JASMEETUSMAN [id number] [place] [address] [place] Bilirubin [Mass/Vol] 0.5 mg/dL Normal 0.2-1.3 [facility] Comment on above: Order Comment: Speci men Type: BLOOD SPECIMENOrdering Facility: [facility] Address: [address] [place] [address] Performed By: #### 2 4323-8 ####[facility] HOSPITALUSMAN [id number] [place] [address] [place] Calcium [Mass/Vol] 9.1 mg/dL Normal 8.5-10.2 [facility] Comment on above: Order Comment: Speci men Type: BLOOD SPECIMENOrdering Facility: [facility] Address: [address] [place] [address] Performed By: #### 2 4323-8 ####[facility] HOSPITALCELYA [id number] [place] [address] [place] Chloride [Moles/Vol] 97 mmol/L Low 98-107 [facility] Comment on above: Order Comment: Speci men Type: BLOOD SPECIMENOrdering Facility: [facility] Address: [address] [place] [address] Performed By: #### 2 4323-8 ####[facility] HOSPITALLEONIDLIA [id number] [place] [address] [place] CO2 [Moles/Vol] 25 mmol/L Normal 22-30 [facility] Comment on above: Order Comment: Speci men Type: BLOOD SPECIMENOrdering Facility: [facility] Address: [address] [place] [address] Performed By: #### 2 4323-8 ####[facility] HOS[facility]ITALNCLIA [id number] [place] [address] [place] Creatinine [Mass/Vol] 1.02 mg/dL Normal 0.73-1.22 [facility] Comment on above: Order Comment: Chela barfield Type: BLOOD SPECIMENOrdering Facility: [facility] Address: [address] [place] [address] Performed By: #### 2 4323-8 ####[facility] [id number] [address] STATES OF [facility] Creatinine and Glomerular filtration rate.predicted panel (S/P/Bld) 74 mL/min/1.73m??? Normal >=60 [facility] Comment on above: Order Comment: Chela barfield Type: BLOOD SPECIMENOrdering Facility: [facility] Address: [address] [place] [address] Result Comment: Judy mated Glomerular Filtration Rate (eGFR) is calculated using the 2020 CKD-EPI creatinine equation. This equation utilizes serum creatinine, sex, and age as parameters. The creatinine assay has traceable calibration to isotope dilution-mass spectrometry. Refer to KDIGO guidelines for clinical interpretation. In patients with unstable renal function, e.g. those with acute kidney injury, the eGFR may not accurately reflect actual GFR. Performed By: #### 2 4323-8 ####[facility] AKRONLIA [id number] [place] [address] [place] Glucose [Mass/Vol] 83 mg/dL Normal 74-99 [facility] Comment on above: Order Comment: Chela barfield Type: BLOOD SPECIMENOrdering Facility: [facility] Address: [address] [place] [address] Result Comment: The [place] Diabetes Association (ADA) provides guidance for cutoff values for fasting glucose and random glucose. The ADA defines fasting as no caloric intake for at least 8 hours. Fasting plasma glucose results between 100 to 125 mg/dL indicate increased risk for diabetes (prediabetes). Fasting plasma glucose results greater than or equal to 126 mg/dL meet the criteria for diagnosis of diabetes. In the absence of unequivocal hyperglycemia, results should be confirmed by repeat testing. In a patient with classic symptoms of hyperglycemia or hyperglycemic crisis, random plasma glucose results greater than or equal to 200 mg/dL meet the criteria for diagnosis of diabetes. Reference: Standards of Medical Care in Diabetes 2016, [place] Diabetes Association. Diabetes Care. 2016.39(Suppl 1). Performed By: #### 2 4323-8 ####[facility] CENTERWFLLIA [id number] [place] [address] [place] Potassium [Moles/Vol] 4.3 mmol/L Normal 3.7-5.1 [facility] Comment on above: Order Comment: Speci men Type: BLOOD SPECIMENOrdering Facility: [facility] Address: [address] [place] [address] Performed By: #### 2 4323-8 ####[facility] [id number] [place] [address] [place] Protein [Mass/Vol] 6.6 g/dL Normal 6.3-8.0 [facility] Comment on above: Order Comment: Speci men Type: BLOOD SPECIMENOrdering Facility: [facility] Address: [address] [place] [address] Performed By: #### 2 4323-8 ####[facility]RONLI [id number] [place] [address] [place] Sodium [Moles/Vol] 132 mmol/L Low 136-144 [facility] Comment on above: Order Comment: Speci men Type: BLOOD SPECIMENOrdering Facility: [facility] Address: [address] [place] [address] Performed By: #### 2 4323-8 ####[facility] AKRONLIA [id number] [place] [address] [place] Urea nitrogen [Mass/Vol] 12 mg/dL Normal 9-24 [facility] Comment on above: Order Comment: Speci men Type: BLOOD SPECIMENOrdering Facility: [facility] Address: [address] [place] [address] Performed By: #### 2 4323-8 ####[facility] ALEXANDRA MORIN [id number] [place] [id number] [place] IgA SerPl-mCncon 07-31-2024 IgA [Mass/Vol] 185 mg/dL Normal 70-400 [facility] Comment on above: Order Comment: Speci men Type: BLOOD SPECIMENOrdering Facility: [facility] Address: [address] [place] [address] Performed By: #### 2 458-8 ####[facility] LABCLIA [id number] [place] [id number] [place] TSH SerPl-aCncon 07-31-2024 TSH Qn 2.990 m[IU]/L Normal 0.270-4.200 [facility] Comment on above: Order Comment: Speci men Type: BLOOD SPECIMENOrdering Facility: [facility] Address: [address] [place] [address] Performed By: #### 3 016-3 ####[facility] LABCLIA [id number] [place] [id number] [place] CNOVon 07-30-2024 CNOV Office Visit (GSTNOR ) -- GLENN PARADA ([id number]) 1945 M Date Time Provider Department 07/30/24 2:00 PM SALMA CHAMBERLAIN GSTIDRIS During your visit today, we recorded the following information about you: Blood pressure Weight Height 124/78 75.7 kg 1.727 m Salma Chamberlain MD 07/30/2024 4:19 PM Signed CHIEF COMPLAINT: Patient presents with: Second Opinion: Chronic constipation, previous patient Dr. Jeffery Fairchildradha Parada is a 79 year old male who presents for Second Opinion (Chronic constipation, previous patient Dr. Gil). HPI: 79 YOM has constipation on lactulose. Hx of hypothyroidism on levo 50 mcg. Hx of Parkinsonism. Hx of celiac disease on GFD. Constipation: Has had constipation all of his life but this has been worsening over the past 1 year. Unable to have a BM without laxatives, he had multiple visits tot he ER with constipation. Resolved with enema. He was on Miralax daily but still had constipation and would have to use Mg Citrate. Currently on Benefiber three times per day. Tried Linzess 290 without a good response and was switched to Motegrity did not help. Multiple colonoscopies and EGDs in the past. No path results available. Colonoscopy in 2022 non contributory. AXR March 2023 Large amount of fecal material is seen in the colon. Record Review: [facility] / Outside records reviewed. PAST MEDICAL HISTORY Diagnosis Date BPH (benign prostatic hyperplasia) Celiac disease GERD (gastroesophageal reflux disease) Hypothyroidism Parkinson's disease (HCC) PAST SURGICAL HISTORY Procedure Laterality Date COLONOSCOPY 10/20/2019 2 polyps, diverticulosis COLONOSCOPY 08/13/2023 normal, internal hemorroids COLONOSCOPY 10/31/2022 poor prep COLONOSCOPY 12/07/2019 large polyp EMR ascending colon COLONOSCOPY 07/21/2020 3 polyps removed EGD 10/20/2019 small hiatal hernia, gastritis EGD 10/31/2022 hiatal hernia REPAIR UMBILICAL HERNIA Allergies: ALLERGIES No Known Allergies Medications: SENNA 8.6 mg tab Take 1 tablet by mouth every 12 hours. peg 3350-Electrolytes (GOLYTELY) 236-22.74-6.74 -5.86 gram suspension DRINK NEEDED FOR CONSTIPATION carbidopa-levodopa CR (SINEMET CR) 25-100 mg per tablet Take 1 tablet by mouth four times daily. At 6am, 12pm, 6pm, and 12am prucalopride (MOTEGRITY) 2 mg tab tablet Take 2 mg by mouth once daily. levothyroxine (SYNTHROID) 50 mcg tablet Take 1 tablet by mouth every afternoon. lactulose 10 gram/15 mL solution Take 30 mL by mouth as needed. omeprazole (PRILOSEC) 40 mg capsule Take 1 capsule by mouth once daily. tamsulosin (FLOMAX) 0.4 mg Take 1 capsule by mouth every 12 hours. OTC NUTRITIONAL SUPPLEMENT Take 1 tablet by mouth once daily. Vitamin C, Vitamin B Complex, Vitamin B-12, and Calcium. propranolol (INDERAL) 20 mg tablet Take 1 tablet by mouth every 12 hours. FAMILY HISTORY Problem Relation Age of Onset Leukemia Mother Cancer Brother Colon Cancer No Family History Pancreatic Cancer No Family History Employer And Job Title: None on file Years Of Education Completed: Not specified Marital Status: Social History Tobacco Use Smoking status: Former Current packs/day: 0.00 Types: Cigarettes Quit date: 1969 Years since quittin.8 Smokeless tobacco: Never Substance Use Topics Alcohol use: Not Currently Review of Systems: Review of Systems Constitutional: Positive for fatigue. Gastrointestinal: Positive for constipation. Gas All other systems reviewed and are negative. Are you taking any blood thinners? No Physical Examination: BP 124/78 Ht 5' 8 (1.73m) Wt 166 lb 14.4 oz (75.7kg) BMI 25.38 kg/(m2). Physical Exam HENT: Head: Normocephalic. Abdominal: General: There is no distension. Tenderness: There is no abdominal tenderness. Neurological: Mental Status: He is alert. ASSESSMENT: 1. Constipation - CIC vs. Medication induced vs. Hypothyroidism. - Stop Motegrity. - Stop Linzess. - Stop Senna - Miralax twice per day; - If you have diarrhea, then decrease Miralax to once per day. - If you still have constipation, then increase Miralax to three times per day. - Use enema once every day. - TSH and Ca ordered. 2. Hx of celiac disease - No biopsy results available. - On GFD. - CELIAC ASSOC HLA-DQ GENOTYPE; Future - CELIAC SCREEN WITH REFLEX; Future Salma Chamberlain MD DATE: 07/30/24 TIME: 1:56 PM Salma Chamberlain MD 07/30/2024 2:32 PM Signed - Stop Motegrity. - No Linzess. - Stop Senna - Miralax twice per day; - If you have diarrhea, then decrease Miralax to once per day. - If you still have constipation, then increase Miralax to three times per day. - Use enema once every day. Referring Provider: SELF [200] Allergies As of Date: 07/30/2024 (No Known Allergies) Date Reviewed: 07/30/2024 Reviewed by: Ariadna Fox MA - Fully (more content not included)... Normal [facility] CNOVon 06-25-2024 CNOV Office Visit (NRMDN) -- GLENN PARADA ([id number]) 1945 M Date Time Provider Department 06/25/24 4:00 PM ALISSON SARABIA [facility] During your visit today, we recorded the following information about you: Pulse Blood pressure Weight Height 83/minute 105/67 75.8 kg 1.72 m Alisson Sarabia APRN.DIRECT SUPPORT PROFESSIONAL 06/26/2024 6:26 AM Signed [facility] - FOLLOW UP EVALUATION Eloina Chi MD [address] [place] [address] [address] [facility] [address] Dear Eloina Chi MD: I had the pleasure of seeing Mr. Parada for follow-up today. As you know he is a 79 year old right-handed male with a history of Parkinson's disease since 2021. He is seen with his . Subjective Previous Plan-03/17/2024 Visit: Parkinson's disease: Continue current medication schedule Continue exercising Orthostatic hypotension (drops in blood pressure) : As we discussed your blood pressure dropped today when you stood up. Please measure your blood pressure sitting and standing for one week at approximately the same time every day If it continues to drop (top number 20 points or more or bottom number 10 points or more) please let me know and also make sure your primary care provider is aware. We may reduce the propranolol if needed. Date/Time BP Sitting Heart Rate Sitting BP Standing Heart Rate Standing If you find it is dropping and not just today: Guidelines for the Treatment of orthostatic hypotension (low blood pressure upon standing) 1. Make all position changes from lying to sitting or sitting to standing, slowly. 2. Increase salt in your diet but ONLY IF THIS IS OK with your primary care provider, Otherwise, do not do this. 3. Avoid large meals which can cause low blood pressure during digestion. It is better to eat smaller meals more often than three large meals. 4. Avoid alcohol. 5. Perform lower extremity exercises to improve strength of the leg muscles. This will help prevent blood from pooling in the legs when standing and walking. 6 Raise the head of the bed by 6 to 10 inches. The entire bed must be at an angle. Raising only the head portion of the bed at waist level or using pillows will not be effective. 7 Drink 16oz of water quickly as soon as you wake up in the morning BEFORE you even get out of bed. This will result in an increased blood pressure within a short time of drinking the water. The effect will only last approximately up to one hour so continue staying well hydrated throughout the day. 8. Use custom fitted elastic support stockings. These will reduce a tendency for blood to pool in the legs when standing and may improve orthostatic intolerance. These have to be Thigh-high. Compression stockings that only reach the knees are not as helpful. 9. Avoid overly hot showers/baths, hot tubs and saunas as these can also lower your blood pressure Constipation: I have provided a comprehensive hand out from the [employer] on steps that can be taken to help with constipation as well as a recipe from the [facility]. 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 By Mail: [facility] Information Management, [employer] Advance Directive Processing [address] [place], [place] [address] By In person at any [facility] location Please note: You can use the address or fax number regardless of which [facility] you utilize, and we will make sure it is filed appropriately. Interval History: His main concern is constipation. His said her main concern is his confusion in the morning for about an hour after he wakes up. He is also more shaky. Movement Disorders Medications Schedule - as of the start of the visit: Medications 6AM 1130AM 6PM 9PM Sinemet 25/100 CR 1 1 1 Propranolol 20 mg 1 1 Melatonin 5 mg 1 Parkinson's Motor Complications Medication benefit onset: unclear Medication duration: unclear Wearing off: no Painful off-state dystonia: (Comment: He gets some cramping in his calves when he first wakes up) Dyskinesia: no Prior Anti-Parkinson Therapies Carbidopa/Levodopa CR Questionnaires: In addition, the following areas that may be affected by abnormal involuntary movements were evaluated: Daily activities Difficulties with eatin (none) Difficulties in dressin (none) Difficulties with hygiene activities: 0 (none) Difficulties with handwriting: Yes (slight) Difficulties with doing hobbies and other activities: 0 (none) Difficulties turning in bed: Yes (slight) Difficulties getting out of bed, car or chair: Yes (slight) Tremors/G (more content not included)... Normal [facility] Absolute lymphocyte countOrd ered By: Eloina Castilloke on 09-20-2023 Lymphocytes Auto (Unsp spec) [#/Vol] 2.02 10*3/uL 0.83-4.51 [facility] Basophil percentageOrdered B y: Eloina Chi on 09-20-2023 Basophils/100 WBC (Bld) 1.0 % 0-1 [facility] Bilirubin [Mass/Vol] 0.90 mg/dL 0.20-1.00 [facility] Comment on above: For patients on eltr ombopag therapy, use of Dimension [place] TBIL is not recommended. Chloride [Moles/Vol] 104 mmol/L 98-107 [facility] Cholesterol [Mass/Vol] 173 mg/dL <200 [facility] Comment on above: <200 mg/dL Desirable 200-240 mg/dL Borderline >240 mg/dL High Risk Eosinophils/100 WBC (Bld) 5.0 % 0-5 [facility] Glucose [Mass/Vol] 102 mg/dL 74-106 [facility] Comment on above: Fasting Glucose resu lt from 100 to 125 mg/dL suggests IMPAIRED HOMEOSTASIS per A.D.A. criteria. Neutrophils (Bld) [#/Vol] 3.0 10*3/uL 2.0-7.7 [facility] Neutrophils/100 WBC (Bld) 49.4 % 47-70 [facility] Potassium [Moles/Vol] 4.0 mmol/L 3.5-5.1 [facility] Protein [Mass/Vol] 6.9 g/dL 6.4-8.2 [facility] Sodium [Moles/Vol] 134 mmol/L 136-145 [facility] Triglyceride [Mass/Vol] 90 mg/dL <199 [facility] Comment on above: The drugs N-Acetylcy steine and Metamizole may falsely depress this assay.Serum Triglycerides Reference Interval Normal <150 mg/dL Borderline high 150 - 199 mg/dL High 200 - 499 mg/dL Very High > or = 500 mg/dL WBC (Bld) [#/Vol] 6.0 10*3/uL 4.4-11.0 [facility] Blood erythrocytes count (nu mber/volume)Ordered By: Eloina Chi on 09-20-2023 RBC (Bld) [#/Vol] 4.39 10*6/uL 4.6-6.2 [facility] Blood hemoglobin measurement (mass/volume)Ordered By: Eloina Chi on 09-20-2023 Hemoglobin (Bld) [Mass/Vol] 13.3 g/dL 13.0-16.5 [facility] Blood lymphocytes/100 leukoc ytesOrdered By: Eloina Chi on 09-20-2023 Lymphocytes/100 WBC (Bld) 33.8 % 19-41 [facility] Blood monocytes/100 leukocyt esOrdered By: Eloina Chi on 09-20-2023 Monocytes/100 WBC (Bld) 10.6 % 0-10 [facility] Blood platelet mean volumeOr dered By: Eloina Chi on 09-20-2023 Platelet mean volume (Bld) [Entitic vol] 10.9 fL 6.2-12.0 [facility] Determination of erythrocyte mean corpuscular volume (MCV)Ordered By: Eloina Cih on 09-20-2023 MCV (RBC) [Entitic vol] 91.3 fL 80-94 [facility] Hematocrit Auto (Bld) [Volum e fraction]Ordered By: Eloina Chi on 09-20-2023 Hematocrit (Bld) [Volume fraction] 40.1 % 40-54 [facility] Laboratory - Chemistry and C hemistry - challengeOrdered By: Eloina Chi on 09-20-2023 ALP [Catalytic activity/Vol] 68 U/L 45-117 [facility] ALT [Catalytic activity/Vol] 11 U/L 16-61 [facility] CO2 [Moles/Vol] 24.0 mmol/L 21.0-32.0 [facility] Free T4 [Mass/Vol] 1.22 ng/dL 0.76-1.46 [facility] Globulin (S) [Mass/Vol] 3.3 g/dL 2.2-4.2 [facility] Urea nitrogen/Creatinine [Mass ratio] 12.8 mg/mg 10-20 [facility] Laboratory - Hematology and Cell countsOrdered By: Eloina Lula on 09-20-2023 Erythrocyte distribution width (RBC) [Entitic vol] 43.6 fL 35.1-43.9 [facility] Erythrocyte distribution width (RBC) [Ratio] 13.0 % 11.6-14.6 [facility] Immature granulocytes/100 WBC (Bld) 0.200 % 0.0-0.9 [facility] Comment on above: IG% - Immature Granu locytes (promyelocytes, myelocytes and metamyelocytes) > 1% indicates that a LEFT SHIFT is Present. MCH (RBC) [Entitic mass] 30.3 pg 27.0-32.0 [facility] Nucleated RBC/100 WBC (Bld) [Ratio] 0 % 0-5 [facility] MCHC Auto (RBC) [Mass/Vol]Or dered By: Eloina Chi on 09-20-2023 MCHC (RBC) [Mass/Vol] 33.2 g/dL 32-36 [facility] No Panel InformationOrdered By: Eloina Chi on 09-20-2023 Estimated GFR (MDRD) Amer 84 mL/min >60 [facility] Comment on above: GFR Calc Estimated GFR (MDRD) Non-Af Amer 69 mL/min >60 [facility] Comment on above: Non- GFR Calc Prostate Specific Antigen Screen 1.64 ng/mL 0.00-4.00 [facility] Comment on above: This test was perfor med using the TPSA assay method for [employer] chemistry system. Values obtained with differentassay methods cannot be used interchangably.When changing PSA assays in the course of monitoring apatient, additional sequential testing should be carriedout to confirm baseline values. Thyroid Stimulating Hormone (TSH) 2.43 uIU/mL 0.358-3.74 [facility] Platelets bldOrdered By: Shaneka Chi on 09-20-2023 Platelets (Bld) [#/Vol] 233 10*3/uL 150-450 [facility] Serum or plasma albumin shanita urement (mass/volume)Ordered By: Eloina Chi on 09-20-2023 Albumin [Mass/Vol] 3.6 g/dL 3.2-5.0 [facility] Serum or plasma albumin/glob ulin mass ratioOrdered By: Eloina Chi on 09-20-2023 Albumin/Globulin [Mass ratio] 1.1 {ratio} 0.9-2.4 [facility] Serum or plasma calcium shanita urement (mass/volume)Ordered By: Eloina Chi on 09-20-2023 Calcium [Mass/Vol] 8.8 mg/dL 8.5-10.1 [facility] Serum or plasma cholesterol in HDL measurement (mass/volume)Ordered By: Eloina Chi on 09-20-2023 Cholesterol in HDL [Mass/Vol] 45 mg/dL >40 [facility] Comment on above: The drugs N-Acetylcy steine and Metamizole may falsely depress this assay. Reference Range HDL <40 mg/dL Low HDL Cholesterol HDL >or= 60 mg/dL High HDL Cholesterol Serum or plasma cholesterol in VLDL measurement (mass/volume)Ordered By: Eloina Chi on 09-20-2023 Cholesterol in VLDL [Mass/Vol] 18 mg/dL 5-40 [facility] Serum or plasma creatinine m easurement (mass/volume)Ordered By: Eloina Chi on 09-20-2023 Creatinine [Mass/Vol] 1.09 mg/dL 0.70-1.30 [facility] Comment on above: The validity of the calculated GFR & GFRAA in patients over 70 years has not been determined. Clinical correlation is essential. Serum or plasma low density lipoprotein (LDL) cholesterol measurement (mass/volume)Ordered By: Eloina Lula on 09-20-2023 Cholesterol in LDL [Mass/Vol] 110 mg/dL 0-130 [facility] Serum or plasma urea nitroge n measurement (mass/volume)Ordered By: Eloina Chi on 09-20-2023 Urea nitrogen [Mass/Vol] 14 mg/dL 7-18 [facility] Thin prep Papanicolaou smear with manual screeningOrdered By: Eloina Lula on 09-20-2023 Thin prep Papanicolaou smear with manual screening 15 U/L 15-37 [facility] Thin prep Papanicolaou smear with manual screening 6 5-15 [facility] Vital Signs Date Time Vital Sign Value Performing Clinician Facility 05-28-2025 11:37-0400 Body temperature 97.5 [degF] Reta Siegel MD Work Phone: [facility] 05-28-2025 11:37-0400 Body weight 72.58 kg Reta Siegel MD Work Phone: [facility] 05-28-2025 11:37-0400 Diastolic blood pressure 66 mm[Hg] Reta Siegel MD Work Phone: [facility] 05-28-2025 11:37-0400 Heart rate 86 /min Reta Siegel MD Work Phone: [facility] 05-28-2025 11:37-0400 SaO2% (BldA) [Mass fraction] 97 % Reta Siegel MD Work Phone: [facility] 05-28-2025 11:37-0400 Systolic blood pressure 106 mm[Hg] Reta Siegel MD Work Phone: [facility] 04-08-2025 14:58-0400 Body height 172.7 cm Alisson Sarabia APRN.DIRECT SUPPORT PROFESSIONAL Work Phone: [facility] 04-08-2025 14:58-0400 Body mass index (BMI) [Ratio] 25.31 kg/m2 Alisson Sarabia APRN.DIRECT SUPPORT PROFESSIONAL Work Phone: [facility] 04-08-2025 14:58-0400 Body weight 75.5 kg Alisson Sarabia PUBLIC SPEAKING PROFESSOR.DIRECT SUPPORT PROFESSIONAL Work Phone: [facility] 04-08-2025 14:58-0400 SaO2% (BldA) [Mass fraction] 96 % Alisson Sarabia PUBLIC SPEAKING PROFESSOR.DIRECT SUPPORT PROFESSIONAL Work Phone: [facility] 12-26-2024 19:28-0400 Body temperature 98.2 [degF] Eloina Chi MD Work Phone: [facility] 12-26-2024 19:28-0400 Diastolic blood pressure 70 mm[Hg] Eloina Chi MD Work Phone: [facility] 12-26-2024 19:28-0400 Heart rate 79 /min Eloina Chi MD Work Phone: [facility] 12-26-2024 19:28-0400 Respiratory rate 18 /min Eloina Chi MD Work Phone: [facility] 12-26-2024 19:28-0400 SaO2% (BldA) [Mass fraction] 96 % Eloina Chi MD Work Phone: [facility] 12-26-2024 19:28-0400 Systolic blood pressure 123 mm[Hg] Eloina Chi MD Work Phone: [facility] 12-26-2024 17:15-0400 Body height 172.72 cm Eloina Chi MD Work Phone: [facility] 12-26-2024 17:15-0400 Body mass index (BMI) [Ratio] 27.1 kg/m2 Eloina Chi MD Work Phone: [facility] 12-26-2024 17:15-0400 Body weight 80.8 kg Eloina Chi MD Work Phone: [facility] 10-04-2024 08:10-0500 Body temperature 98.2 [degF] Eloina Chi MD Work Phone: [facility] 10-04-2024 08:10-0500 Diastolic blood pressure 70 mm[Hg] Eloina Cih MD Work Phone: [facility] 10-04-2024 08:10-0500 Heart rate 77 /min Eloina Chi MD Work Phone: [facility] 10-04-2024 08:10-0500 Respiratory rate 12 /min Eloina Chi MD Work Phone: [facility] 10-04-2024 08:10-0500 SaO2% (BldA) [Mass fraction] 97 % Eloina Chi MD Work Phone: [facility] 10-04-2024 08:10-0500 Systolic blood pressure 120 mm[Hg] Eloina Chi MD Work Phone: [facility] 09-21-2024 15:10-0500 SaO2% (BldA) [Mass fraction] 100 % Joseph Sarabia MD Work Phone: [facility] 09-21-2024 15:08-0500 Body height 172.7 cm Joseph Sarabia MD Work Phone: [facility] 09-21-2024 15:08-0500 Body mass index (BMI) [Ratio] 25.09 kg/m2 Joseph Sarabia MD Work Phone: [facility] 09-21-2024 15:08-0500 Body weight 74.84 kg Joseph Sarabia MD Work Phone: [facility] 07-30-2024 13:58-0400 Body height 172.7 cm Salma Chamberlain MD Work Phone: [facility] 07-30-2024 13:58-0400 Body mass index (BMI) [Ratio] 25.38 kg/m2 Salma Chamberlain MD Work Phone: [facility] 07-30-2024 13:58-0400 Body weight 75.7 kg Salma Chamberlain MD Work Phone: [facility] 07-30-2024 13:58-0400 Diastolic blood pressure 78 mm[Hg] Salma Chamberlain MD Work Phone: [facility] 07-30-2024 13:58-0400 Systolic blood pressure 124 mm[Hg] Salma Chamberlain MD Work Phone: [facility] 06-25-2024 15:47-0400 Diastolic blood pressure 67 mm[Hg] Alisson Sarabia PUBLIC SPEAKING PROFESSOR.DIRECT SUPPORT PROFESSIONAL Work Phone: [facility] 06-25-2024 15:47-0400 Heart rate 83 /min Alisson Sarabia PUBLIC SPEAKING PROFESSOR.DIRECT SUPPORT PROFESSIONAL Work Phone: [facility] 06-25-2024 15:47-0400 Systolic blood pressure 105 mm[Hg] Alisson Sarabia PUBLIC SPEAKING PROFESSOR.DIRECT SUPPORT PROFESSIONAL Work Phone: [facility] 06-25-2024 15:45-0400 Body height 172 cm Alisson Sarabia PUBLIC SPEAKING PROFESSOR.DIRECT SUPPORT PROFESSIONAL Work Phone: [facility] 06-25-2024 15:45-0400 Body mass index (BMI) [Ratio] 25.62 kg/m2 Alisson Sarabia PUBLIC SPEAKING PROFESSOR.DIRECT SUPPORT PROFESSIONAL Work Phone: [facility] 06-25-2024 15:45-0400 Body weight 75.8 kg Alisson Sarabia APRN.DIRECT SUPPORT PROFESSIONAL Work Phone: [facility] 06-25-2024 15:45-0400 SaO2% (BldA) [Mass fraction] 99 % Alisson Sarabia PUBLIC SPEAKING PROFESSOR.DIRECT SUPPORT PROFESSIONAL Work Phone: [facility] 03-17-2024 07:49-0400 Body height 172.7 cm Alisson Sarabia PUBLIC SPEAKING PROFESSOR.DIRECT SUPPORT PROFESSIONAL Work Phone: [facility] 03-17-2024 07:49-0400 Body mass index (BMI) [Ratio] 26.62 kg/m2 Alisson Sarabia PUBLIC SPEAKING PROFESSOR.DIRECT SUPPORT PROFESSIONAL Work Phone: [facility] 03-17-2024 07:49-0400 Body weight 79.4 kg Alisson Sarabia PUBLIC SPEAKING PROFESSOR.DIRECT SUPPORT PROFESSIONAL Work Phone: [facility] 03-17-2024 07:49-0400 SaO2% (BldA) [Mass fraction] 98 % Alisson Sarabia APRN.CNP Work Phone: [facility] 12-19-2023 14:01-0500 Body height 172.7 cm Joseph Sarabia MD Work Phone: [facility] 12-19-2023 14:01-0500 Body weight 82 kg Joseph Sarabia MD Work Phone: [facility] 12-19-2023 14:01-0500 SaO2% (BldA) [Mass fraction] 97 % Joseph Sarabia MD Work Phone: [facility] 09-25-2023 08:18-0500 Body height 172.72 cm MD Eloina Chi Work Phone: [facility] 09-25-2023 08:18-0500 Body mass index (BMI) [Ratio] 26.4 kg/m2 MD Eloina Chi Work Phone: [facility] 09-25-2023 08:18-0500 Body temperature 98.2 [degF] MD Eloina Chi Work Phone: [facility] 09-25-2023 08:18-0500 Body weight 78.92 kg MD Eloina Chi Work Phone: [facility] 09-25-2023 08:18-0500 Diastolic blood pressure 65 mm[Hg] MD Eloina Chi Work Phone: [facility] 09-25-2023 08:18-0500 Heart rate 63 /min MD Eloina Chi Work Phone: [facility] 09-25-2023 08:18-0500 Respiratory rate 15 /min MD Eloina Chi Work Phone: [facility] 09-25-2023 08:18-0500 Systolic blood pressure 103 mm[Hg] MD Eloina Chi Work Phone: [facility] Encounters Encounter Date Encounter Type Care Provider Facility Start: 06-17-2025 ambulatory Eloina Chi Facility:[facility] Start: 06-15-2025 ambulatory [facility] Facility:[facility] Start: 06-10-2025 Non-patient / Non-visit Cherelle Delgado si [facility] Work Phone: Start: 06-10-2025 ambulatory Eloina Castilloke Facility:[facility] Start: 06-08-2025 End: 06-09-2025 ambulatory [facility]gel [facility] Start: 06-08-2025 End: 06-08-2025 Telephone encounter Reta Siegel MD [facility] Start: 06-04-2025 End: 06-04-2025 Telemedicine consultation with patient Reta Siegel MD [facility] Comment on above: 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); 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); Former smoker Start: 06-04-2025 End: 06-04-2025 ambulatory RETA SIEGEL Facility:[facility] Start: 05-31-2025 End: 05-31-2025 ambulatory Eloina Chi MD Work Phone: -Physical Therapy Start: 05-31-2025 End: 05-31-2025 Discharged Recurring ALISSON GRIDER -Physical Therapy Work Phone: Start: 05-28-2025 End: 05-28-2025 ambulatory [facility] Start: 05-28-2025 End: 05-28-2025 Office consultation new/estab patient 80 min Reta Siegel MD Work Phone: [facility] (ENT) Comment on above: Tonsillar mass (Prim mary Dx); 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 Start: 05-14-2025 End: 05-14-2025 Subsequent hospital visit by physician Jess [facility] Radiology Comment on above: Tonsillar mass Start: 05-06-2025 Registered Recurring ALISSON ESPINOSA [employer] ENGINEER -Physical Therapy Work Phone: Start: 05-03-2025 End: 05-03-2025 Telephone encounter Alisson Sarabia APRN.DIRECT SUPPORT PROFESSIONAL Work Phone: Neurology Comment on above: Orders Start: 05-03-2025 End: 05-03-2025 ambulatory Eloina Chi MD Work Phone: -Cat Scan [facility] Start: 05-03-2025 End: 05-03-[address] Ramón Ward MD -Cat Scan [facility] Work Phone: Start: 05-03-2025 End: 05-03-2025 ambulatory Eloina Lula Facility:[facility] Start: 04-08-2025 End: 04-08-2025 Patient encounter procedure Alisson Sarabia APRN.DIRECT SUPPORT PROFESSIONAL Work Phone: Neurology Comment on above: Parkinson's disease without dyskinesia, with fluctuating manifestations (HCC) (Primary Dx); Orthostatic hypotension; Sialorrhea Start: 04-08-2025 End: 04-08-2025 ambulatory ALISSON SARABIA Facility:[facility] Start: 03-01-2025 End: 03-01-2025 ambulatory Eloina Chi MD Work Phone: [facility] Work Phone: Start: 03-01-2025 End: 03-01-2025 Patient encounter procedure Ariel GARCIAS -Laboratory Specimen Work Phone: Start: 03-01-2025 End: 03-01-2025 ambulatory [facility] Facility:[facility] Start: 02-23-2025 End: 02-23-2025 Refill Joseph Sarabia MD Work Phone: Neurology Comment on above: Refill Request Start: 02-08-2025 End: 02-08-2025 Patient encounter procedure Ariel Duque PA -Laboratory Specimen Work Phone: Start: 02-08-2025 End: 02-08-2025 ambulatory [facility] Facility:[facility] Start: 12-28-2024 End: 12-28-2024 ambulatory Eloina Chi MD Work Phone: [facility] Work Phone: Start: 12-28-2024 End: 12-28-2024 Patient encounter procedure Ariel Duque PA -Laboratory, Specimen Work Phone: Start: 12-28-2024 End: 12-28-2024 [facility] Facility:[facility] Start: 12-26-2024 End: 12-26-2024 Emergency department patient visit Eloina Chi MD Work Phone: -Emergency Department Work Phone: Start: 12-23-[address] Eloina Chi MD -Speech Therapy Work Phone: Start: 12-23-2024 End: 12-23-2024 ambulatory Eloina Chi Facility:[facility] Start: 11-06-2024 End: 11-09-2024 Telephone encounter Salma Chamberlain MD Work Phone: [facility] [place] Comment on above: Medication Authoriza tion Start: 10-04-2024 End: 10-04-2024 Patient encounter procedure Ranulfo Gaspar NP-[facility] Work Phone: Start: 10-04-2024 End: 10-04-2024 ambulatory Eloina Chi Facility:[facility] Start: 09-28-2024 End: 09-30-2024 ambulatory Salma Chamberlain MD Work Phone: [facility] [place] Comment on above: [employer] - patient Glenn Parada Start: 09-21-2024 End: 09-22-2024 ambulatory JOSEPH SARABIA Facility:[facility] Start: 09-21-2024 End: 09-22-2024 Office outpatient visit 25 minutes Joseph Sarabia MD Work Phone: [facility] Comment on above: Parkinson's disease without dyskinesia or fluctuating manifestations (HCC) (Primary Dx); Cognitive and behavioral changes Start: 08-10-2024 End: 08-12-2024 Telephone encounter Alisson Sarabia APRN.DIRECT SUPPORT PROFESSIONAL Work Phone: Neurology Comment on above: Medication Question Start: 07-31-2024 End: 07-31-[address] [facility] [place] [place] Facility:[facility] Start: 07-30-2024 End: 07-30-[address] [facility] [place] Facility:[facility] Start: 07-30-2024 End: 07-30-2024 Office outpatient new 60 minutes Salma Chamberlain MD Work Phone: [facility] [place] Comment on above: Constipation, unspec ified constipation type (Primary Dx); Intestinal malabsorption, unspecified type Start: 06-25-2024 End: 06-25-2024 ambulatory ALISSON SARABIA Facility:[facility] Start: 06-25-2024 End: 06-25-2024 Patient encounter procedure Alisson Sarabia APRN.DIRECT SUPPORT PROFESSIONAL Work Phone: Neurology Comment on above: Orthostatic hypotens ion (Primary Dx); Parkinson's disease without dyskinesia, with fluctuating manifestations (HCC) Start: 03-17-2024 End: 03-17-2024 Patient encounter procedure Alisson Sarabia APRN.DIRECT SUPPORT PROFESSIONAL Work Phone: Neurology Comment on above: Parkinson's disease without dyskinesia or fluctuating manifestations (HCC) (Primary Dx); Orthostatic hypotension; Constipation, unspecified constipation type Start: 12-19-2023 End: 12-19-2023 Office outpatient new 45 minutes Joseph Sarabia MD Work Phone: Neurology Comment on above: Parkinson's disease without dyskinesia, with fluctuating manifestations (HCC) (Primary Dx) Start: 09-25-2023 End: 09-25-2023 Patient encounter procedure MD Eloina Chi Work Phone: [facility] Work Phone: Start: 09-20-2023 End: 09-20-2023 ambulatory MD Eloina Chi Work Phone: [facility] Work Phone: Start: 09-20-2023 End: 09-20-2023 Patient encounter procedure MD Eloina Chi Work Phone: [facility]-Laboratory, [facility] Procedures Date Procedure Procedure Detail Performing Clinician Start: 05-28-2025 Biopsy oropharynx Reta Siegel MD Work Phone: Start: 05-28-2025 Laryngoscopy flexibl e diagnostic Reta Siegel MD Work Phone: Start: 05-14-2025 Radiology Comparison study - date and time Reta Siegel MD Work Phone: Start: 05-03-2025 CT of soft tissues o f neck with contrast Eloina Chi MD Work Phone: Start: 03-01-2025 Bacteria identificat ion test Eloina Chi MD Work Phone: Start: 02-08-2025 Bacteria identificat ion test Eloina Chi MD Work Phone: Start: 12-28-2024 Bacteria identificat ion test Eloina hCi MD Work Phone: Start: 12-28-2024 Throat culture Eloina mueller MD Work Phone: Start: 12-26-2024 Plain x-ray of hand Shaneka Chi MD Work Phone: Start: 12-26-2024 CT cervical spine wi thout contrast Eloina Chi MD Work Phone: Start: 12-26-2024 CT of head without contrast Eloina Chi MD Work Phone: Start: 09-21-2024 BACH SCREENING TEST Noah Macario MD Work Phone: Start: 09-25-2023 X-ray of lumbosacral spine MD Eloina Chi Work Phone: Start: 09-25-2023 Radiography of thora cic spine MD Eloina Chi Work Phone: Start: 09-25-2023 X-ray of unilateral ribs, two views without x-ray of chest MD Eloina Chi Work Phone: Plan of Treatment Date Care Activity Detail Author Start: 12-26-2034 Tetanus vaccination Tetanus (Td or Tdap) [facility] Start: 12-26-2034 Urine microalbumin profile DTaP,Tdap,Td Vaccine (2 - Td or Tdap) [facility] Start: 07-31-2027 Diabetes Screening Diabetes Screening [facility] Start: 12-12-2025 Annual Wellness Visit (G0439) [facility]G0439) [facility] Start: 10-12-2025 End: 10-12-2025 Patient encounter procedure 10/12/2025 11:00 AM EST Office Visit Neurology [address] [phone] Alisson Sarabia, PUBLIC SPEAKING PROFESSOR.DIRECT SUPPORT PROFESSIONAL [address] [address] 6 month follow up Neurology Comment on above: 6 month follow up Start: 07-14-2025 Influenza [facility] Start: 06-14-2025 Influenza vaccination [facility] Start: 06-04-2025 End: 06-03-2026 PET+CT Guidance for localization of tumor of Whole body-- W [id number] IV PET HEAD/NECK INITIAL Imaging Within 1 week 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) Former smoker Expected: 06/04/2025, Expires: 06/03/2026 [employer] Work Phone: Comment on above: Expected: 06/04/2025, Expires: Start: 05-28-2025 End: 05-28-2025 Patient encounter procedure 05/28/2025 1:00 PM EDT Office Visit [facility] [address] [place] [address] Reta Siegel MD [address] [place] [address] [facility]) Start: 04-08-2025 End: 04-08-2025 Patient encounter procedure 04/08/2025 3:00 PM EDT Office Visit Neurology [address] [phone] Alisson Sarabia APRN.DIRECT SUPPORT PROFESSIONAL [address] [address] Follow up for Parkinson's Neurology Comment on above: Follow up for Parkinson's Start: 03-01-2025 Throat culture Throat Culture [facility] Start: 12-26-2024 [facility] Start: 12-20-2024 Covid-19 Vaccine ( season) Covid-19 Vaccine () [facility] Start: 12-12-2024 Annual Wellness Visit (G0439) Annual Wellness Visit (G0439) [facility] Start: 10-22-2024 Covid-19 Vaccine () Covid-19 Vaccine () [facility] Start: 10-14-2024 Advance Directive Discussion Advance Directive Discussion [facility] Start: 10-14-2024 Medicare Advantage Annual Wellness Visit Medicare Advantage Annual Wellness Visit [facility] Start: 09-21-2024 End: 09-21-2024 Patient encounter procedure 09/21/2024 3:30 PM EST Office Visit [facility] [address] [place] [address] Joseph Sarabia MD [address] [place] [address] follow up [facility] Comment on above: follow up Start: 07-31-2024 End: 07-31-2024 ambulatory 07/31/2024 10:30 AM EDT Results Only [place] [facility] [address] [place] [address] Constipation, unspecified constipation type [K59.00] [place] [facility] Comment on above: Constipation, unspecified constipation t ype [K59.00] Start: 07-30-2024 End: 10-29-2024 CBC W Auto Differential panel - Blood COMPLETE BLOOD COUNT AND DIFFERENTIAL Lab Routine Constipation, unspecified constipation type Expected: 07/30/2024, Expires: 10/29/2024 [facility] Comment on above: Expected: 07/30/2024, Expires: Start: 07-30-2024 End: 10-29-2024 [facility] HLA-DQ GENOTYPE [facility] HLA-DQ GENOTYPE Lab Routine Intestinal malabsorption, unspecified type Expected: 07/30/2024, Expires: 10/29/2024 [facility] Comment on above: Expected: 07/30/2024, Expires: Start: 07-30-2024 End: 10-29-2024 CELIAC SCREEN WITH REFLEX CELIAC SCREEN WITH REFLEX Lab Routine Intestinal malabsorption, unspecified type Expected: 07/30/2024, Expires: 10/29/2024 [facility] Comment on above: Expected: 07/30/2024, Expires: Start: 07-30-2024 End: 10-29-2024 Comprehensive metabolic 2000 panel - Serum or Plasma COMPREHENSIVE METABOLIC PANEL Lab Routine Constipation, unspecified constipation type Expected: 07/30/2024, Expires: 10/29/2024 [facility] Work Phone: Comment on above: Expected: 07/30/2024, Expires: Start: 07-30-2024 End: 07-30-2024 Patient encounter procedure 07/30/2024 2:00 PM EDT Office Visit [facility] [place] [address] [phone] Salma Chamberlain MD [address] [place] [address] 2nd opinion, chronic constipation, pt sees Dr Amezcua in [place], formerly [facility] to have rec faxed [facility] [place] Comment on above: 2nd opinion, chronic constipation, pt se es Dr Amezcua in [place], adv to have rec faxed Start: 07-30-2024 End: 10-29-2024 Thyrotropin [Units/volume] in Serum or Plasma THYROID STIMULATING HORMONE Lab Routine Constipation, unspecified constipation type Expected: 07/30/2024, Expires: 10/29/2024 [facility] Comment on above: Expected: 07/30/2024, Expires: Start: 07-13-2024 COVID-19 Vaccine (2 - Pfizer risk series) COVID-19 Vaccine (2 - Pfizer risk series) [facility] Start: 06-25-2024 End: 06-25-2024 Patient encounter procedure 06/25/2024 4:00 PM EDT Office Visit Neurology [address] [phone] Alisson Sarabia, PUBLIC SPEAKING PROFESSOR.DIRECT SUPPORT PROFESSIONAL [address] [place] [address] 6 month follow up Neurology Comment on above: 6 month follow up Start: 06-14-2024 Influenza vaccination [facility] Start: 10-14-2023 Advance Directive Discussion Advance Directive Discussion [facility] Start: 10-14-2023 Depression Assessment Depression Assessment [facility] Start: 06-14-2023 Covid-19 Vaccine ( season) Covid-19 Vaccine ( season) [facility] [facility] Start: 06-14-2023 Influenza vaccination [facility] Start: 12-31-2018 RSV Vaccine (1 - 1-dose 75+ series) RSV Vaccine (1 - 1-dose 75+ series) [facility] Start: 12-31-2018 RSV vaccine (adult) (1 - 1-dose 75+ series) RSV vaccine (adult) (1 - 1-dose 75+ series) [facility] Start: 12-31-2008 Pneumococcal Vaccine: 65+ (1 of 1 - PCV) Pneumococcal Vaccine: 65+ (1 of 1 - PCV) [facility] Start: 2004 Hepatitis B (HBV) Vaccine (optional start 60+ years) Hepatitis B (HBV) Vaccine (optional start 60+ years) [facility] Start: 2004 RSV Vaccine (1 - 1-dose 60+ series) RSV Vaccine (1 - 1-dose 60+ series) [facility] Start: 12-31-1993 Pneumococcal vaccination Pneumococcal Vaccine(s) (50+ yrs) (1 of 1 - PCV) [facility] Start: 12-31-1993 Pneumococcal Vaccine: 50+ (1 of 1 - PCV) Pneumococcal Vaccine: 50+ (1 of 1 - PCV) [facility] Start: 12-31-1993 Shingles (RZV) Vaccine (1 of 2) Shingles (RZV) Vaccine (1 of 2) [facility] Start: 12-31-1993 Shingrix Vaccine (1 of 2) Shingrix Vaccine (1 of 2) [facility] Start: 12-31-1988 Diabetes Screening Diabetes Screening [facility] Start: 12-31-1962 Hepatitis A (HAV) Vaccine (optional start 19+ years) Hepatitis A (HAV) Vaccine (optional start 19+ years) [facility] Start: 12-31-1962 Pneumococcal vaccination Pneumococcal Vaccine(s) (50+ yrs) (1 of 2 - PCV) [facility] Start: 12-31-1962 Shingles (RZV) Vaccine (1 of 2) Shingles (RZV) Vaccine (1 of 2) [facility] Start: 12-31-1962 Urine microalbumin profile DTaP,Tdap,Td Vaccine (1 - Tdap) [facility] Start: 12-31-1961 Anxiety Screening Anxiety Screening [facility] Start: 12-31-1961 Depression Screening Depression Screening [facility] Start: 1945 Covid-19 Vaccine (#1) Covid-19 Vaccine (#1) [facility] Bacteria identified in Throat by Culture [facility] Patient Education ED Abrasion ED Hand Contusion ED Facial Contusion ED Head Injury (Adult) [facility] Work Phone: Patient referral [facility] Work Phone: Surgical pathology procedure *SPECIMEN FOR SURGICAL PATHOLOGY Anatomic Pathology Routine Tonsillar mass 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) Ordered: 05/28/2025 [facility] Work Phone: Comment on above: Ordered: 05/28/2025 [place] Almita lyon Immunizations Immunization Date Immunization Notes Care Provider Fa [facility] 12-26-2024 tetanus toxoid, reduced diphtheria toxoid, and acellular pertussis vaccine, adsorbed Eloina Chi MD Work Phone: [facility] 06-22-2024 COVID-19 vaccine, ag e 12+ yr (PFIZER-BIOBasharJobs COMIRNAT) Salma Chamberlain MD Work Phone: [facility] 06-22-2024 influenza, high dose seasonal, preservative-free [facility] 06-22-2024 influenza virus vaccine, unspecified formulation Alisson Sarabia APRN.CNP Work Phone: [facility] Payers Date Payer Category Payer Self-pay 2022 Medicare [employer] MEDICARE A ETNA MEDICARE PPO [id number] 2022-Present [phone] [address] [place] [address] PPO [id number] 2022 Medicare (Managed Care) [id number]. [id number] 2022 Private Health Insurance [id number] 1945 Unknown [id number] 32 1944 Unknown [id number] 32 1944 Unknown [id number] 32 Unknown [id number] 62 Unknown [id number] 2.16.840.1.057791.3.579.2.4 62 Unknown [id number] 2.16.840.1.273566.3.579.2.4 62 Unknown [id number] 2.16.840.1.251790.3.579.2.4 62 Unknown [id number] 2.16.840.1.748876.3.579.2.4 62 Unknown [id number] 2.16.840.1.982613.3.579.2.4 62 Unknown [id number] 2.16.840.1.465166.3.579.2.4 62 Unknown [id number] 2.16.840.1.893038.3.579.2.4 62 Unknown [id number] 2.16.840.1.036830.3.579.2.4 62 Unknown [id number] 2.16.840.1.053997.3.579.2.4 62 Unknown [id number] 2.16.840.1.826400.3.579.2.4 62 Social History Date Type Detail Facility Tobacco smoking stat [facility] Unknown if ever smoked [facility] Work Phone: Start: 1945 Sex Assigned At Male [facility] Start: 12-19-2023 End: 12-26-2024 Tobacco smoking status NHIS Ex-smoker [facility] End: 10-14-1969 History of tobacco use Current smoker [facility] End: 10-14-1969 History of tobacco use Cigarette Smoker [facility] Start: 12-19-2023 End: 05-28-2025 Tobacco use and exposure Smokeless tobacco non-user [facility] Start: 12-19-2023 End: 05-28-2025 History of Social function [facility] Start: 12-19-2023 End: 05-28-2025 Tobacco use panel [facility] Adult Depression Screening Assessment 0 [facility] Start: 10-11-2023 Gender identity Identifies as male gender (finding) [facility] Start: 07-30-2024 End: 04-08-2025 Alcoholic beverage intake Ex-drinker (finding) [facility] Start: 12-26-2024 End: 05-13-2025 Sex Male (finding) [facility] Tobacco smoking stat us AZIS Tobacco smoking consumption unknown [facility] Start: 1945 Sex assigned at Not on file [facility] Clinical Notes 12-19-2023 to 06-08-2025 Telephone Encounter - AcevedoDominick hickeyandra - 06/08/2025 4:24 PM EDTTelephone Encounter - Dominick Acevedoandra - 06/08/2025 4:24 PM EDT Note Date & Type Note Facility 06-08-2025 Telephone encounter Note Form atting of this note might be different from the original. Error [facility] 06-08-2025 Miscellaneous Notes Formattin g of this note might be different from the original. Error documented in this encounter [facility] 06-07-2025 Discharge summary Note Date/Time June 07, 2025 1:30pm [facility] Physical Therapy [facility] [address] [place] [address] [address] [place] [address] / REHABILITATION SERVICES DISCHARGE SUMMARY MR#: [id number] Acct: [id number] Name: GLENN PARADAN Rep #: [id number] 08 : 1945 80 From: Mayra Melton Referring DrJaiden: MARNI JIMENEZ Status: REG RCR Insurance: [employer] [facility] S[employer] PAY INSURANCE Discharge Summary D/C summary: It has been my pleasure to treat GLENN PARADA referred by MARNI JIMENEZ, with the diagnosis of PD for a total of 12 visit(s). Discharge Date: 06/07/25 Please see the following information for a summary of their discharge status. Subjective Subjective: He had been having a constant sore throat and kept coming back and was dx with throat CA. He has been having LBP today. They gave him a rescue med but does not want him doing much right now. They will do a combo of Chemo and radiation and wont have time for PT. Pain Back pain: Pain Intensity (Out of 10): 0 Overall Improvement % Improvement: 25 Objective Objective/Function: copied from 05-25 note TUG 10.34 FGA 21 Standing opp arm and leg... able to get X 4 max in a row and then reverts back to same side and he does notice that he reverts back. He is able to step over several objects today with no LOB or issue. Goals Goal 1:: I HEP Goal Progress: Goal Met Goal 2:: Increase balance (FGA at the time of the eval 14) Goal Progress: Goal Met Goal 3:: Be able to complete X 10 in a row standing opp arm and leg with CGA tomin A with gait belt Goal Progress: Progressing Goal 4:: Be able to step up and over various size hurdles making sure he is ableto increase his step length and clear the shauna Goal Progress: Goal Met Goal 5:: Improve TUG (14.31 seconds at eval) Goal Progress: Goal Met Plan Plan: DC PT D/C Information Discharge Comments: DC PT d/c sentence: If there are questions or concerns regarding this patient's physical therapy, please feel free to call me at [phone]. Thank you for the referral of thispatient. Sincerely, AMRITA Thompson Balance/Gait/Functional tests Balance/Special Test Scores Functional Gait Assessment Score: 21 % Disability: 30.0000 Lower Extremity Functional Score: 57 Improvement % Improvement: 25 <Electronically signed by Mayra Clements MPT> 06/07/25 6330 CC: Dr. Eloina Chi MD; MARNI JIMENEZ ~ Signed [facility] Work Phone: 1(978) 271-138708-25-2025 Discharge summary [facility] Physical Therapy [facility] [address] [place] [address]. [address] [place] [address] / REHABILITATION SERVICES DISCHARGE SUMMARY MR#: [id number] Acct: [id number] Name: PARADAGLENN GRIMALDO Rep #: [id number] 08 : 1945 80 From: Mayra Clements MP T Referring Dr.: MARNI JIMENEZ Status: REG RCR Insurance: [employer] [facility] SELF PAY INSURANCE Discharge Summary D/C summary: It has been my pleasure to treat GLENN PARADA referred by MARNI JIMENEZ, with the diagnosis of PD for a total of 12 visit(s). Discharge Date: 06/07/25 Please see the following information for a summary of their discharge status. Subjective Subjective: He had been having a constant sore throat and kept coming back and was dx with throat CA. He has been having LBP today. They gave him a rescue med but does not want him doing much right now. They will do a combo of Chemo and radiation and wont have time for PT. Pain Back pain: Pain Intensity (Out of 10): 0 Overall Improvement % Improvement: 25 Objective Objective/Function: copied from 05-25 note TUG 10.34 FGA 21 Standing opp arm and leg... able to get X 4 max in a row and then reverts back to same side and he does notice that he reverts back. He is able to step over several objects today with no LOB or issue. Goals Goal 1:: I HEP Goal Progress: Goal Met Goal 2:: Increase balance (FGA at the time of the eval 14) Goal Progress: Goal Met Goal 3:: Be able to complete X 10 in a row standing opp arm and leg with CGA tomin A with gait belt Goal Progress: Progressing Goal 4:: Be able to step up and over various size hurdles making sure he is ableto increase his step length and clear the shauna Goal Progress: Goal Met Goal 5:: Improve TUG (14.31 seconds at eval) Goal Progress: Goal Met Plan Plan: DC PT D/C Information Discharge Comments: DC PT d/c sentence: If there are questions or concerns regarding this patient's physical therapy, please feel free to call me at [phone]. Thank you for the referral of thispatient. Sincerely, Mayra Clements, MPT Balance/Gait/Functional tests Balance/Special Test Scores Functional Gait Assessment Score: 21 % Disability: 30.0000 Lower Extremity Functional Score: 57 Improvement % Improvement: 25 06/07/25 1330 CC: Dr. Eloina Chi MD; MARNI JIMENEZ ~ Signed [facility]08-22-2025 History of Present illness Narrative* Reta Siegel MD - 06/04/2025 12:08 PM EDT Images from the original note were not included. Documentation: Mode: Telephone Patient Patient Work Phone: Patient Cell Preferred phone: [phone] Consent: I confirmed patient understanding of the risks and benefits of telehealth visits and obtained consent to proceed with the telehealth visit. Location of Patient: Home of patient Medical discussion: more than 10 minutes OTOLARYNGOLOGY - HEAD & NECK SURGERY CLINIC NOTE CHIEF COMPLAINT: Review biopsy results HPI: Glenn Parada is a 80 year old male with PMH significant for Parkinson's who presents today, 06/04/2025, at the [facility] for follow up regarding left oropharyngeal mass Interval History (06/04/25) Overall doing well since the biopsy last week in the office. No new issues or concerns Initial HPI (05/28/25) Today, pt reports persistent sore throat for the past 6 months. He went to local dentist and then referred to Dr. Ward. Denies any dysphagia. Weight has been fluctuating but eating less recently.Associated with muffled voice. Reports associated jaw pain. Denies fevers, chills, unintentionalweight loss, night sweats, otalgia, sore throat, oral bleeding,dysphagia, odynophagia, voice changes, shortness of breath, hemoptysis or new lesions/masses. Denies history of radiation or previous of head/neck surgery. Denies history of cardiac or pulmonary issues. Able to walk/up downstairs without issues. Not currently on any anticoagulation or antiplatelet therapy. Former smoker (quit at age 25, 1 ppd x 13 yrs). Denies history of significant alcohol use. All other systems are negative except for that listed in the HPI. Past Medical/Surgical History: He has no past medical history on file. His has no past surgical history on file. Past Family/Social History: His family history is not on file. He reports that he has quit smoking. His smoking use included cigarettes. He has never used smokeless tobacco. Medications/Allergies/Immunizations: His current medication(s) include: @CMEDLISTP@ Allergies: Aripiprazole, Gluten meal, Haloperidol, Metoclopramide, Olanzapine, Prochlorperazine, and Promethazine, Immunizations: Immunization History Administered Date(s) Administered COVID-19 Vaccine (12+ yrs, Banjo) mRNA, spike protein, LNP, pres. free, 30 mcg/0.3mL dose, lola-sucrose (KNG=273) 06/22/2024 Influenza, injectable, high dose seasonal, trivalent, preservative free (CRO=713) 06/22/2024 Tdap (FAX=361) 12/26/2024 Pathologic Review: Final Diagnosis A. Oropharyngeal, Left tonsillar lesion INVASIVE, HPV-ASSOCIATED SQUAMOUS CELL CARCINOMA (see Immunohistochemistry). . I certify that I personally conducted the diagnostic evaluation of the above specimen(s) and have rendered the final diagnosis(es). 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 Tentatively staged as cT3/T4 (questionable invasion into the hyoglossus musculature on imaging) N1 -we reviewed the pathology findings in detail today - Given the extent of the primary and extension of the glossotonsillar sulcus and base of tongue and parapharyngeal space, would recommend nonsurgical treatment with up-front definitive chemotherapy and radiation. -we will order PET scan to complete staging and we will still plan to present at our multidisciplinary head & neck tumor board Conference -Discussed his case with Dr. Guerin in [place] for definitive treatment and external referrals placed today -discussed the patient that he will need referrals to [facility] [employer], nutrition and dentistry and social work but this can likely be arranged with Dr. Truong's -we will plan for follow up 2-3 months after treatment with me Thank you so much for allowing me to participate in the care of this patient. Please feel free to contact me if you have any questions or concerns. Reta Siegel MD Business Analytics Manager Department of Otolaryngology - Head and Neck Surgery [facility], [facility] Pager: [phone] documented in this [id number] NoteTIME OUT A TIME OUT was performed prior to the procedure using active communication to verify: Correct patient: Yes Correct Procedure/site: Yes Patient tolerated the procedure well. We will call with results and plan. Kia Arthur RNThe [facility] [id number] History of Present illness Narrative* Kia Arthur RN - 05/28/2025 1:46 PM EDT TIME OUT A TIME OUT was performed prior to the procedure using active communication to verify: Correct patient: Yes Correct Procedure/site: Yes Patient tolerated the procedure well. We will call with results and plan. Kia Arthur RN * Helga Yi MA - 05/28/2025 11:42 AM EDT Patient notified that provider is running behind Helga Chau, LUIS E * Reta Siegel MD - 05/28/2025 11:30 AM EDT Images from the original note were not included. OTOLARYNGOLOGY - HEAD & NECK SURGERY CLINIC NOTE CHIEF COMPLAINT: Chief Complaint Patient presents with New patient, to establish relationship HPI: Glenn Parada is a 80 year old male with PMH significant for Parkinson's who presents today, 05/28/2025, at the [facility] at the request of Referring Provider: Ramón Ward for my opinion and further evaluation of left tonsil mass. Today, pt reports persistent sore throat for the past 6 months. He went to local dentist and then referred to Dr. Ward. Denies any dysphagia. Weight has been fluctuating but eating less recently.Associated with muffled voice. Reports associated jaw pain. Denies fevers, chills, unintentionalweight loss, night sweats, otalgia, sore throat, oral bleeding,dysphagia, odynophagia, voice changes, shortness of breath, hemoptysis or new lesions/masses. Denies history of radiation or previous of head/neck surgery. Denies history of cardiac or pulmonary issues. Able to walk/up downstairs without issues. Not currently on any anticoagulation or antiplatelet therapy. Former smoker (quit at age 25, 1 ppd x 13 yrs). Denies history of significant alcohol use. All other systems are negative except for that listed in the HPI. Past Medical/Surgical History: He has no past medical history on file. His has no past surgical history on file. Past Family/Social History: His family history is not on file. He reports that he has quit smoking. His smoking use included cigarettes. He has never used smokeless tobacco. Medications/Allergies/Immunizations: His current medication(s) include: @CMEDLISTP@ Allergies: Aripiprazole, Gluten meal, Haloperidol, Metoclopramide, Olanzapine, Prochlorperazine, and Promethazine, Immunizations: Immunization History Administered Date(s) Administered COVID-19 Vaccine (12+ yrs, Banjo) mRNA, spike protein, LNP, pres. free, 30 mcg/0.3mL dose, lola-sucrose (YVB=400) 06/22/2024 Influenza, injectable, high dose seasonal, trivalent, preservative free (MBV=712) 06/22/2024 Tdap (KVD=130) 12/26/2024 PHYSICAL EXAM: Vital Signs: BP 106/66 (BP Location: left arm, BP position: sitting, Cuff Size: adult) Pulse 86 Temp 97.5 F (36.4 C) (Temporal) Wt 160 lb (72.6 kg) SpO2 97% General: Well-developed, well-nourished. In no acute distress. Communication and Voice: Clear pitch and clarity Respiratory Respiratory effort: Equal inspiration and expiration without stridor Neuro: Appropriate mood and affect; Cranial nerves II-XII are intact except for slight tongue deviation to the left in mild fasciculations on the left side Head and Face Inspection: Normocephalic and atraumatic without mass or lesion Palpation: Facial skeleton intact without bony stepoffs Facial Strength: Facial motility symmetric and full bilaterally Eyes: No nystagmus with normal extraocular motion bilaterally ENT External nose: No scar or anatomic deformity TMJ: No pain to palpation with full mobility Salivary Glands: No mass or tenderness Lips: No lesion. Oral cavity: Moist mucosa. No mass or lesion. Oropharynx: Firm, ulcerative and granular left oropharyngeal mass within the left tonsillar fossa extending into the palate superiorly and extending inferiorly into the glossotonsillar sulcus and base of tongue. Unable to palpate the tumor within the floor of mouth Larynx: Unable to fully visualize larynx on indirect mirror laryngoscopy due to gag reflex Neck Trachea: Midline trachea. Thyroid: No mass or nodularity. Lymphatics: Small, mobile palpable cervical lymphadenopathy within the left level II. Nontender to palpation. No overlying Procedure: Procedure: Flexible fiberoptic nasopharyngolaryngoscopy Indications: Need for detailed exam, hyperactive gag reflex, inadequate mirror visualization Surgeon: Reta Siegel MD was present for the entirety of the procedure Procedure: After informed discussion of the risks, benefits, and alternatives, fiberoptic nasopharyngolaryngsocopy was recommended for the above indications, and the patient consented without furtherquestions. Next, a flexible scope was easily advanced into the naris. Nasal cavities were unremarkable. Nasopharynx including Eustachian tubes & fossae of Rosenmuller was unremarkable. Granular ul cerative lesion within the oropharynx extending towards the glossotonsillar sulcus and into the left base of tongue. Difficult to visualize the vallecula on the left side Hypopharynx & endolarynxincluding epiglottis & glottis were unremarkable. Airway was patent, right vocal fold mobile. Left vocal fold with limited mobility and in the paramedian position with associated atrophy. No lesions or masses appreciated. The scope was withdrawn atraumatically. The patient tolerated the procedure well without complications. Procedure Note: Procedure performed: Biopsy of left oropharyngeal lesion Pre-procedure Dx: Left oropharyngeal mass Post-procedure Dx: Same Informed consent obtained. Procedure in Detail: Patient seated in chair. Using 1% lidocaine with epinephrine 1:100,000, the area around the left tonsillar fossa was injected. After an appropriate amount of time had passed, biopsies were taken of the lesion located at the left oropharynx. Silver nitrate was used for hemostasis. The patient tolerated the procedure well. The specimen was placed in formalin and sent for pathology immediately. Complications: None Specimens/Cultures: None Disposition: Ambulatory Pathologic Review: N/a Radiologic Review: CT Neck (05/03/25), personally reviewed Laboratory/Other Studies: N/a ASSESSMENT/PLAN: 80-year-old male with history of Parkinson's and remote history of smoking (13 pack yr history) whopresents today for further evaluation of newly diagnosed left tonsil mass highly concerning for malignancy with likely associated metastatic left cervical lymphadenopathy. Differential diagnosis includes HPV positive versus HPV negative oropharyngeal squamous cell carcinoma. Tentatively staged as cT3/T4 (questionable invasion into the hyoglossus musculature on imaging) N1 if HPV+ In office biopsy performed today without issues -counseled the patient at length about exam and imaging findings and concerns for malignancy today -we briefly reviewed the potential management options including role for surgical versus nonsurgical measures. Given the extent of the primary and extension of the glossotonsillar sulcus and base of tongue and parapharyngeal space, would likely favor nonsurgical treatment with up-front definitive ch emotherapy and radiation. Final treatment plan will be dependent on pathology - we will plan to call patient with results -we will add on to our head and neck multidisciplinary tumor board conference -if consistent with HPV related oropharyngeal squamous cell carcinoma, we will likely refer to Dr. Guerin in [place] for definitive treatment and we will plan to obtain PET scan once definitive diagnosis obtained Thank you so much for allowing me to participate in the care of this patient. Please feel free to contact me if you have any questions or concerns. Reta Siegel MD Business Analytics Manager Department of Otolaryngology - Head [facility] Neck [facility] Pager: [phone] documented in this [id number] Discharge summary Author Mayra Clements [facility] Note Date/Time May 25, 2025 3: 19pm [facility] Physical Therapy [facility] [address] [place] [address] / REHABILITATION SERVICES DISCHARGE SUMMARY MR#: [id number] Acct: [id number] Name: GLENN PARADA Rep #: [id number] : 1945 80 From: Mayra Melton Referring Dr.: MARNI JIMENEZ Status: REG RCR Insurance: [facility] AT [place] [employer] Discharge Summary D/C summary: It has been my pleasure to treat GLENN PARADA referred by MARNI JIMENEZ, with the diagnosis of PD for a total of 10 visit(s). Discharge Date: 05/25/25 Please see the following information for a summary of their discharge status. Subjective Subjective: Pt has no complaints. He reports that his BP has been low and the Dr told him to eat more salt. No Falls. He is doing steps ok. He is doing fine getting in and out of the car. Pt was told that he is moving better and hethinks that he is. He is doing some you tube exercises ISVT for PD. Pain Back pain: Pain Intensity (Out of 10): 0 Overall Improvement % Improvement: 25 Objective Objective/Function: TUG 10.34 FGA 21 Standing opp arm and leg... able to get X 4 max in a row and then reverts back to same side and he does notice that he reverts back. He is able to step over several objects today with no LOB or issue. Goals Goal 1:: I HEP Goal Progress: Goal Met Goal 2:: Increase balance (FGA at the time of the eval 14) Goal Progress: Goal Met Goal 3:: Be able to complete X 10 in a row standing opp arm and leg with CGA tomin A with gait belt Goal Progress: Progressing Goal 4:: Be able to step up and over various size hurdles making sure he is ableto increase his step length and clear the shauna Goal Progress: Goal Met Goal 5:: Improve TUG (14.31 seconds at eval) Goal Progress: Goal Met Plan Plan: DC PT to HEP D/C Information Discharge Comments: DC PT to HEP d/c sentence: If there are questions or concerns regarding this patient's physical therapy, please feel free to call me at [phone]. Thank you for the referral of thispatient. Sincerely, AMRITA Thompson Balance/Gait/Functional tests Balance/Special Test Scores Functional Gait Assessment Score: 21 % Disability: 30.0000 Lower Extremity Functional Score: 57 Improvement % Improvement: 25 <Electronically signed by Mayra Clements MPT> 05/25/25 1321 CC: Dr. Eloina Chi MD; MARNI JIMENEZ ~ Signed [facility] Work Phone: 1(534) 400-164908-12-2025 Discharge summary [facility] Physical Therapy [facility] [address] [place] [address] / REHABILITATION SERVICES DISCHARGE SUMMARY MR#: [id number] Acct: [id number] Name: GLENN PARADA Rep #: [id number] : 1945 80 From: Mayra Clements MP T Referring Dr.: MARNI JIMENEZ Status: REG RCR Insurance: [facility] [employer] [facility] [facility] Discharge Summary D/C summary: It has been my pleasure to treat GLENN PARADA referred by MARNI JIMENEZ, with the diagnosis of PD for a total of 10 visit(s). Discharge Date: 05/25/25 Please see the following information for a summary of their discharge status. Subjective Subjective: Pt has no complaints. He reports that his BP has been low and the Dr told him to eat more salt. No Falls. He is doing steps ok. He is doing fine getting in and out of the car. Pt was toldthat he is moving better and hethinks that he is. He is doing some you tube exercises ISVT for PD. Pain Back pain: Pain Intensity (Out of 10): 0 Overall Improvement % Improvement: 25 Objective Objective/Function: TUG 10.34 FGA 21 Standing opp arm and leg... able to get X 4 max in a row and then reverts back to same side and he does notice that he reverts back. He is able to step over several objects today with no LOB or issue. Goals Goal 1:: I HEP Goal Progress: Goal Met Goal 2:: Increase balance (FGA at the time of the eval 14) Goal Progress: Goal Met Goal 3:: Be able to complete X 10 in a row standing opp arm and leg with CGA tomin A with gait belt Goal Progress: Progressing Goal 4:: Be able to step up and over various size hurdles making sure he is ableto increase his step length and clear the shauna Goal Progress: Goal Met Goal 5:: Improve TUG (14.31 seconds at eval) Goal Progress: Goal Met Plan Plan: DC PT to HEP D/C Information Discharge Comments: DC PT to HEP d/c sentence: If there are questions or concerns regarding this patient's physical therapy, please feel free to call me at [phone]. Thank you for the referral of thispatient. Sincerely, AMRITA Thompson Balance/Gait/Functional tests Balance/Special Test Scores Functional Gait Assessment Score: 21 % Disability: 30.0000 Lower Extremity Functional Score: 57 Improvement % Improvement: 05/25/25 1321 CC: Dr. Eloina Chi MD; MARNI JIMENEZ ~ Signed [facility]08-12-2025 Discharge summary Author Mayra Clements [facility] Note Date/Time May 25, 2025 3: 19pm [facility] Physical Therapy [facility] [address] [place] [address] [address] [place] [address] / REHABILITATION SERVICES DISCHARGE SUMMARY MR#: [id number] Acct: [id number] Name: GLENN PARADAN Rep #: [id number] : 1945 80 From: Mayra Clements MP T Referring DrJaiden: MARNI JIMENEZ Status: REG RCR Insurance: [facility] [employer] Discharge Summary D/C summary: It has been my pleasure to treat GLENN PARADA referred by MARNI JIMENEZ, with the diagnosis of PD for a total of 10 visit(s). Discharge Date: 05/25/25 Please see the following information for a summary of their discharge status. Subjective Subjective: Pt has no complaints. He reports that his BP has been low and the Dr told him to eat more salt. No Falls. He is doing steps ok. He is doing fine getting in and out of the car. Pt was told that he is moving better and hethinks that he is. He is doing some you tube exercises ISVT for PD. Pain Back pain: Pain Intensity (Out of 10): 0 Overall Improvement % Improvement: 25 Objective Objective/Function: TUG 10.34 FGA 21 Standing opp arm and leg... able to get X 4 max in a row and then reverts back to same side and he does notice that he reverts back. He is able to step over several objects today with no LOB or issue. Goals Goal 1:: I HEP Goal Progress: Goal Met Goal 2:: Increase balance (FGA at the time of the eval 14) Goal Progress: Goal Met Goal 3:: Be able to complete X 10 in a row standing opp arm and leg with CGA tomin A with gait belt Goal Progress: Progressing Goal 4:: Be able to step up and over various size hurdles making sure he is ableto increase his step length and clear the shauna Goal Progress: Goal Met Goal 5:: Improve TUG (14.31 seconds at eval) Goal Progress: Goal Met Plan Plan: DC PT to HEP D/C Information Discharge Comments: DC PT to HEP d/c sentence: If there are questions or concerns regarding this patient's physical therapy, please feel free to call me at [phone]. Thank you for the referral of thispatient. Sincerely, AMRITA Thompson Balance/Gait/Functional tests Balance/Special Test Scores Functional Gait Assessment Score: 21 % Disability: 30.0000 Lower Extremity Functional Score: 57 Improvement % Improvement: 25 <Electronically signed by Mayra Clements MPT> 05/25/25 1321 CC: Dr. Eloina Chi MD; MARNI JIMENEZ ~ Signed [facility] Work Phone: 1(378) 112-922807-31-2025 NoteHey another pearsall referral. Patient is all scheduled.[facility] [id number] Radiology Diagnostic study note [facility] Imaging Services [address] [place] [address] Soft Tissue Neck WITH Contrast MR#: [id number] Acct: [id number] Name: GLENN PARADA DEV Rep #: [id number] : 1945 M 80 From: Vero Arroyo MD PCP: Dr. Eloina Chi MD Status: REG CL I Study:Soft Tissue Neck WITH Contrast Date of Exam: 05/03/25 Exam# [id number] Ordering Dr: Ramón Ward MD PROCEDURE: SOFT TISSUE NECK WITH CONTRAST 05/03/2025 REASON FOR EXAM: LEFT TONSILLER MASS TECHNIQUE: SOFT TISSUE NECK WITH CONTRAST CONTRAST: Isovue 370 VOLUME: 75 mL One or more dose reduction techniques were used (e.g., Automated exposure control, adjustment of the mA and/or kV according to patient size, use of iterative reconstruction technique). RADIATION DOSE SUMMARY: CTDlvol: 11.7 mGy DLP: 346 mGycm FINDINGS: Normal nasopharynx. Normal parotid glands. There is an abnormal mass in the left palatine tonsil which extends to the glossotonsillar sulcus and exhibit central ulceration. The dimensions at a business process representative axial level are about 2.4 x 3.2 cm. There is a necrotic left level 2 lymph node measuring 1.4 cm long axis. There are additional metastatic nodes identified in level 2 and 3 on the left measuring 1.4 cm. Normal thoracic inlet. Normal vocal folds. Normal epiglottis. Normal right and left submandibular glands. No parotid mass. The oral cavity itself is maintained. 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 Eloina Chi MD; Dr. Ramón Ward MD ~ Claim Investigator: Signed [facility]07-21-2025 Telephone encounter Note* Telephone Encounter - Esther Linder MA - 05/03/2025 7:54 AM EDT Faxed rehab evaluation to [facility] and confirmation received [facility]07-21-2025 Miscellaneous Notes* Telephone Encounter - Esther Linder MA - 05/03/2025 7:54 AM EDT Faxed rehab evaluation to [facility] and confirmation received documented [facility] Instructions* Patient Instructions* Alisson Sarabia APRN.GARY - 04/08/2025 3:43 PM EDT It was a pleasure to see you today. We addressed the following diagnoses: Parkinson's disease without dyskinesia, with fluctuating manifestations (hcc) (primary encounter diagnosis) Orthostatic hypotension Sialorrhea My recommendations are as follows: 04/08/2025 Visit: Parkinson's disease: Continue current Sinemet dose but change to the schedule below I have ordered physical therapy for you. Continue exercising. Orthostatic hypotension (drops in blood pressure): Discuss with Dr. Chi if the morning dose of tamsulosin is still needed Guidelines for the Treatment of orthostatic hypotension (low blood pressure upon standing) 1. Make all position changes from lying to sitting or sitting to standing, slowly. 2. 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 Otherwise, do not do this. 3. Avoid large meals which can cause low blood pressure during digestion. It is better to eat smaller meals more often than three large meals. 4. Avoid alcohol. 5. Perform lower extremity exercises to improve strength of the leg muscles. This will help preventblood from pooling in the legs when standing and walking. 6 Raise the head of the bed by 6 to 10 inches. The entire bed must be at an angle. Raising only thehead portion of the bed at waist level or using pillows will not be effective. 7 Drink 16oz of water quickly as soon as you wake up in the morning BEFORE you even get out of bed.This will result in an increased blood pressure within a short time of drinking the water. The effect will only last approximately up to one hour so continue staying well hydrated throughout the day. 8. Use custom fitted elastic support stockings. These will reduce a tendency for blood to pool in the legs when standing and may improve orthostatic intolerance. These have to be Thigh-high. Compression stockings that only reach the knees are not as helpful. Abdominal binders can also help with this. 9. Avoid overly hot showers/baths, hot tubs and saunas as these can also lower your blood pressure Sialorrhea (drooling): You have been provided with a hand out on drooling below. Please do not hesitate to let me know if you have any questions about anything you read. Patient's perception of importance for healthcare provider to let them know of research trials for which they may be eligible? Somewhat important Movement Disorders Medication Schedule: Medications 5:30am 10:30am 3:30pm 8:30pm 12am (when you wake up) Sinemet 25/100 CR 1 1 1 1 1 Propranolol 10 mg 1 1 Return at or around: 10/08/25 Your current CNR Movement Disorders Team includes: Primary Movement Disorders Neurologist: Joseph Sarabia MD Primary Movement Disorders Advanced Practice Provider: Alisson Sarabia CNP If there are any concerns before your next visit, please call or you can send a message through [employer]. You can also now schedule and select appointments through [employer]. Alisson Sarabia APRN.DIRECT SUPPORT PROFESSIONAL From the Parkinson's Foundation: [email or web address].parkinson.org What Can I Do About Drooling? If you tend to drool, you probably don't have more saliva than you used to have; you are just not swallowing it as frequently or as automatically as before. Frequent sips of water or sucking on ice chips during the day can help you swallow more often. When you are not talking or eating, keep your head up, with your chin parallel to the floor and your lips closed. Sugar tends to produce more saliva in the mouth, so reducing sugar intake can be helpful. One trick is to suck on hard candy or chew gum, preferably sugarless. Candy and gum activate the jaw and the automatic swallowing reflex and can help clear saliva, providing temporary relief from drooling. Another tactic is to wear a sweatbandon your wrist. This can be used to discreetly wipe the mouth as necessary and is a relatively inconspicuous accessory. If these lifestyle strategies are not effective, adjusting anti-PD medications may make it easier to swallow. There are also some other prescription medication options: Glycopyrrolate and other oral anticholinergic medications (trihexyphenidyl, benztropine, hycosamine): Oral anticholinergic medications, as a class, decrease the production of saliva. Usually this is perceived as a side effect (drymouth), but in this case it is an advantage. Other anticholinergic side effects may be seen, including drowsiness, confusion, vomiting, dizziness, blurred vision, constipation, flushing, headache andurinary retention. Anticholinergics can also have mental side effects, so their use should be carefully considered. Scopolamine transdermal patch: This patch offers anticholinergic medicine that slows production of saliva as it is absorbed into the entire bloodstream. The side effects are similar to those seen with use of oral anticholinergic medications. 1% atropine eye drops (an anticholinergic): This treatment is given as 1-2 drops under the tongue per day to dry the mouth. Systemic side effects are much less likely with this local treatment. Botulinum toxin A: Botulinum toxin weakens muscles. Botulinum toxin A (Botox) is sometimes used to decrease saliva production for people who have issues with drooling; botulinum toxin B (Myobloc) is used to treat dystonia. Injection of botulinum to ferny A into the salivary glands of the cheek and jaw can decrease production of saliva without (or with minimal) side effects, except for thickening of oral mucus secretion. Botox is not always effective, but when it works the benefit can last for several months before it wears off and re-injection is necessary. Botulinum toxin A can be an effective treatment for severe drooling but is more costlythan other treatments, which your physician may want to try first. Botulinum toxin should probably be avoided when oral secretions are already very thick and difficult to clear. Botulinum toxin B causes dry mouth when used for dystonia, but it is not approved by the FDA for drooling. Many people with PD complain that they have a thick phlegm or mucus in the throat. Drinking more water will help thin this phlegm. Drinking carbonated beverages or tea with lemon may also help. Eating or drinking dairy products can make phlegm worse. documented in this encounterOhio[facility]06-[facility] History of Present illness Narrative* Alisson Sarabia APRN.CNP - 04/08/2025 3:00 PM EDT [facility] - FOLLOW UP EVALUATION Primary Movement Disorders Neurologist: Joseph Sarabia MD Primary Movement Disorders FER: Alisson Sarabia CNP Recording using [employer] software for draft documentation of the visit was discussed with the patient/authorized business process representative; all questions welcomed and answered. Patient/authorized business process representative agreed to proceed Eloina Chi MD [address] [place] [address] [address] [facility] [address] Dear Eloina Chi MD: I had the pleasure of seeing Mr. Parada for follow-up today. As you know he is a 80 year old right-handed male with a history of Parkinson's Disease since 2021. Subjective Previous Plan-09/21/2024 Visit: Add nighttime dose at bedtime of 1 tab Sinemet 25/100 CR. If awakening in the middle of the night, able to take 1 tab Sinemet 25/100 CR. Cut down to propranolol 10mg BID for one week then stop. Return to clinic in 6 months. Interested in clinical research? Not discussed Interval History: Mr. Parada is accompanied by his , who provides additional history. Glenn reports persistent lightheadedness, particularly in the mornings, which has been more pronounced recently. Yesterday, hefelt faint throughout the morning, prompting a visit to his primary care physician, who diagnosed him with orthostatic hypotension and prescribed midodrine. He has not yet started this medication dueto concerns about interactions with his current medications. He is currently taking propranolol for tremors, which worsened when he attempted to discontinue themedication. He also takes tamsulosin twice daily for urinary symptoms. He has experienced two recent falls, which he attributes to feeling lightheaded. He reports lower back pain and stiffness, particularly when walking, which limits his ability to walk as far as he used to. He does not notice any fluctuations in his symptoms related to medication timing. He experiences constipation, which has been better controlled since starting Motegrity. However, hereports no bowel movements for the past two days. He uses GoLYTELY occasionally, about once a month, for constipation relief. He reports drooling, primarily at night, but also during the day, describing it as squirting out.He expresses a desire to manage this symptom. He reports good sleep quality and does not endorse depression, anxiety, compulsive behaviors, hallucinations, or apathy. He no longer takes melatonin and does not have significant issues with acting out dreams, though his notes some mumbling and small movements during sleep. He does not experience restless leg sensations or leg swelling. His reports some memory problems, particularly with telling time and managing his medication schedule. He does not endorse hallucinations or loss of motivation. He participates in an exercise class and last engaged in formal physical therapy in the fall of 2022. He has not had recent eye or skin exams. Other symptoms and details are noted below in the completed questionnaire. Movement Disorders Medications Schedule - as of the start of the visit: Medications 530AM 1130AM 6PM Bedtime 12am (when you wake up) Sinemet 25/100 CR 1 1 1 1 1 Propranolol 10 mg (for tremor) 1 1 Parkinson's Motor Complications Medication benefit onset: unclear Medication duration: unclear Wearing off: no Painful off-state dystonia: no (Comment: He gets some cramping in his calves when he first wakes up) Dyskinesia: no Prior Anti-Parkinson Therapies Carbidopa/Levodopa CR Questionnaires: In addition, the following areas that may be affected by abnormal involuntary movements were evaluated: Daily activities Difficulties with eatin (none) Difficulties in dressing: Yes (mild) Difficulties with hygiene activities: 0 (none) Difficulties with handwriting: Yes (slight) Difficulties with doing hobbies and other activities: 0 (none) Difficulties turning in bed: Yes (slight) Difficulties getting out of bed, car or chair: Yes (slight) Tremors/Gait/Balance Shaking or tremors: 0 (none) Walking and balance problems: 0 (none) Number of falls in the Last Month: 2 Gait freezin (none) Autonomic/Pain Lightheadeness on standing: Yes (mild) Urinary problems: 0 (none) Constipation problems: Yes (slight) Pain and other sensations: Yes (severe) Speech/Swallowing Speech problems: Yes (mild) Drooling: Yes (moderate) Chewing and swallowing problems: 0 (none) Sleep/Fatigue Sleep problems: Yes (slight) Daytime sleepiness: Yes (mild) Fatigue: Yes (slight) Mood/Behavior Depression: PHQ-9 Score: 3 usually representing no significant (0-4) depression. Anxiety: PETRA-7 Total Score: 0 usually representing no significant (0-4) anxiety. Finally, the following table shows the patient's overall global physical and mental health using the PROMIS scale: PROMIS-10 Flowsheet Row Office Visit from 04/08/2025 in Neurology Office Visit from 09/21/2024 in Neurological [facility] Global Physical Health T Score 42.3 50.8 Global Mental Health T Score 53.3 53.3 0-10 Standard Pain Scale 3 4 *PROMIS-10 scoring scale: mean = 50, over 50 is above average, under 50 is below average In addition, the following non-motor symptoms and palliative concerns were evaluated: Sleep/Fatigue: REM sleep behavior disorder: Yes He is off the melatonin and this has not been a problem. Restless Legs Syndrome: No Leg swelling: No Impaired sense of smell: Yes Cognition: Memory and Thinkin - Mild. Evident cognitive dysfunction, but only minimal interference with myability to carry out normal activities and social interactions. Mostly in regards to time and medications. Hallucinations and Psychosis: 0 - Normal. No hallucinations or psychotic behavior. Depressed Mood: 0 - Normal. No depressed mood. Anxious Mood: 0 - Normal. No anxious feelings. Apathy: 0 - Normal. No apathy. Impulse Control: 0 - Normal. No problems present. MoCA Cognitive assessment: Palliative Concerns: Caregiver burden: She gets stressed and frustrated. Spiritual concerns: No Advanced directives on file: No Palliative services: No Therapy and Exercise: Last PT Date: Fall 2022 Last OT Date: Fall [address] Date: Fall 2022 Exercises Regularly: Yes ALLERGIES Allergen Reactions Abilify [Aripiprazo* Contraindication-Medical Surgical People with Parkinson's disease should not take this or other antipsychotics except Nuplazid, Seroquel, and Clozaril can be prescribed. Compazine [Prochlor* Contraindication-Medical Surgical This should not be given to people with Parkinson's disease. If not otherwise contraindicated, Zofran should be given instead. Gluten Other: See Comments Has celiac disease Haldol [Haloperidol] Contraindication-Medical Surgical People with Parkinson's disease should not take this or other antipsychotics except Nuplazid, Seroquel, and Clozaril can be prescribed. Phenergan [Prometha* Contraindication-Medical Surgical This should not be given to people with Parkinson's disease. If not otherwise contraindicated, Zofran should be given instead. Reglan [Metoclopram* Contraindication-Medical Surgical This should not be given to people with Parkinson's disease. If not otherwise contraindicated and for nausea, Zofran should be given instead. Zyprexa [Olanzapine] Contraindication-Medical Surgical People with Parkinson's disease should not take this or other antipsychotics except Nuplazid, Seroquel, and Clozaril can be prescribed. Current Outpatient Medications Medication Sig propranolol (INDERAL) 20 mg tablet Take 1 tablet by mouth every 12 hours. prucalopride (MOTEGRITY) 2 mg tab tablet Take 1 tablet (2 mg) by mouth once daily. polyethylene glycol 3350 (MIRALAX) 17 gram packet Take 17 g by mouth two times a day. Dissolve dosein 4 - 8 ounces of liquid and take as directed. carbidopa-levodopa CR (SINEMET CR) 25-100 mg per tablet Take 1 tablet by mouth four times daily. At6am, 12pm, 6pm, 8pm and 12am (if awakening at night) peg 3350-Electrolytes (GOLYTELY) 236-22.74-6.74 -5.86 gram suspension DRINK NEEDED FOR CONSTIPATION levothyroxine (SYNTHROID) 50 mcg tablet Take 1 tablet by mouth every afternoon. omeprazole (PRILOSEC) 40 mg capsule Take 1 capsule by mouth once daily. tamsulosin (FLOMAX) 0.4 mg Take 1 capsule by mouth every 12 hours. OTC NUTRITIONAL SUPPLEMENT Take 1 tablet by mouth once daily. Vitamin C, Vitamin B Complex, VitaminB-12, and Calcium. No current facility-administered medications for this visit. Objective Vital Signs: Ht 172.7 cm (5' 8) Wt 75.5 kg (166 lb 7.2 oz) SpO2 96% BMI 25.31 kg/m Orthostatic Vitals: Sitting: BP 98/63 Pulse 87 Standing: BP 89/57 Pulse 86 No LMP for male patient. Body mass index is 25.31 kg/m . Movement Disorders Scales Performed: MDS-UPDRS Motor subscale condition of exam Medication Off/On/Naiive ON Time of UPDRS 1530 Time of Last Medication 1130 Last Medication Taken Sinemet 25/100 CR one tablet DBS Right N/A DBS Left N/A MDS-UPDRS Motor subscale scores Speech 1-Slight. Loss of modulation, diction or volume, but still all words easy to understand. Facial Expression 2-Mild. In addition to decreased eye-blink frequency, Masked facies present in the lower face as well, namely fewer movements around the mouth, such as less spontaneous smiling, butlips not parted. Finger Taps Right 1-Slight. a) the regular rhythm is broken with one or two interruptions or hesitations of the tapping movement, b) slight slowing, c) the amplitude decrements near the end of the 10taps. Finger Taps Left 1-Slight. a) the regular rhythm is broken with one or two interruptions or hesitations of the tapping movement, b) slight slowing, c) the amplitude decrements near the end of the 10 taps. Hand Movements Right 1-Slight. a) the regular rhythm is broken with one or two interruptions or hesitations of the movement, b) slight slowing, c) the amplitude decrements near the end of the task. Hand Movements Left 1-Slight. a) the regular rhythm is broken with one or two interruptions or hesitations of the movement, b) slight slowing, c) the amplitude decrements near the end of the task. Arm Movements Right 1-Slight. a) the regular rhythm is broken with one or two interruptions or hesitations of the movement, b) slight slowing, c) the amplitude decrements near the end of the sequence. Arm Movements Left 2-Mild. a) 3 to 5 interruptions during the movements, b) mild slowing, c) the amplitude decrements midway in the sequence. Toe Taps Right 2-Mild. a) 3 to 5 interruptions during the tapping movements, b) mild slowing, c) the amplitude decrements midway in the task. Toe Taps Left 3-Moderate. a) more than 5 interruptions during the tapping movements or at least onelonger arrest (freeze) in ongoing movement, b) moderate slowing, c) the amplitude decrements starting after the first tap. Leg Agility Right 1-Slight. a) the regular rhythm is broken with one or two interruptions or hesitations of the movement, b) slight slowing, c) the amplitude decrements near the end of the task. Leg Agility Left 1-Slight. a) the regular rhythm is broken with one or two interruptions or hesitations of the movement, b) slight slowing, c) the amplitude decrements near the end of the task. Arise From Chair 0-Normal. No problems. Able to arise quickly without hesitation. Gait 1-Slight. Independent walking with minor gait impairment. Gait Freezing 0-Normal. No freezing. Posture Stability Posture 3-Moderate. Stooped posture, scoliosis or leaning to one side that cannot be corrected volitionally to a normal posture by the patient. Body Bradykinesia 2-Mild. Mild global slowness and poverty of spontaneous movements. Postural Tremor Hand Right 0-Normal. No tremor. Postural Tremor Hand Left 0-Normal. No tremor. Kinetic Tremor Right Kinetic Tremor Left 0-Normal. No tremor. Rest Tremor Amplitude Right Upper Extremity 0-Normal. No tremor. Rest Tremor Amplitude Left Upper Extremity 0-Normal. No tremor. Rest Tremor Amplitude Right Lower Extremity 0-Normal. No tremor. Rest Tremor Amplitude Left Lower Extremity 0-Normal. No tremor. Rest Tremor Amplitude Lip/Jaw 0-Normal. No tremor. Rest Tremor Constancy 0-Normal. No tremor. Assessment and Plan: Assessment Mr. Parada is a right-handed 80 year old year old male with Parkinson's Disease diagnosed in 2021 with left side predominant symptoms responsive to Sinemet. The following are the current problems noted and addressed during this visit: 1. Parkinson's disease without dyskinesia, with fluctuating manifestations (HCC) (G20.A2) - Symptoms include tremors, stiffness, and difficulty with ambulation. - Current medications include carbidopa-levodopa and propranolol. - Propranolol was previously attempted to be discontinued, but tremors worsened. - Adjusted carbidopa-levodopa dosing schedule to 0530, 1030, 1530, and 2030 to provide more even coverage throughout the day. - Discussed potential for physical therapy to address gait and balance issues; provided order for PT at a local facility with expertise in Parkinson's management. - Recommended regular eye and skin exams due to increased risk of melanoma associated with Parkinson's disease. - Follow-up in 6 months. 2. Orthostatic hypotension (I95.1) - Recent episodes of prolonged lightheadedness and two falls. - Midodrine prescribed by GP; discussed administration timing and advised to avoid lying flat within 4 hours of dosing. - Current medications, propranolol and tamsulosin, may contribute to hypotension. - Advised him to discuss potential reduction of tamsulosin dosing with prescribing physician if possible since reducing propranolol worsened his tremor - Provided guidelines for maintaining blood pressure, including adequate hydration. - Since taking propranolol for tremor and not blood pressure, if unable to reduce tamsulosin or it does not help, can take both the midodrine for orthostatic hypotension and propranolol for tremor (discussed with Dr. Sarabia as well) 3. Sialorrhea (K11.7) - Predominantly nocturnal drooling. - Educated on management strategies and provided educational materials from the [employer] on sialorrhea management. Plan 04/08/2025 Visit: Parkinson's disease: Continue current Sinemet dose but change to the schedule below I have ordered physical therapy for you. Continue exercising. Orthostatic hypotension (drops in blood pressure): Discuss with Dr. Chi if the morning dose of tamsulosin is still needed Guidelines for the Treatment of orthostatic hypotension (low blood pressure upon standing) 1. Make all position changes from lying to sitting or sitting to standing, slowly. 2. 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 Otherwise, do not do this. 3. Avoid large meals which can cause low blood pressure during digestion. It is better to eat smaller meals more often than three large meals. 4. Avoid alcohol. 5. Perform lower extremity exercises to improve strength of the leg muscles. This will help preventblood from pooling in the legs when standing and walking. 6 Raise the head of the bed by 6 to 10 inches. The entire bed must be at an angle. Raising only thehead portion of the bed at waist level or using pillows will not be effective. 7 Drink 16oz of water quickly as soon as you wake up in the morning BEFORE you even get out of bed.This will result in an increased blood pressure within a short time of drinking the water. The effect will only last approximately up to one hour so continue staying well hydrated throughout the day. 8. Use custom fitted elastic support stockings. These will reduce a tendency for blood to pool in the legs when standing and may improve orthostatic intolerance. These have to be Thigh-high. Compression stockings that only reach the knees are not as helpful. Abdominal binders can also help with this. 9. Avoid overly hot showers/baths, hot tubs and saunas as these can also lower your blood pressure Sialorrhea (drooling): You have been provided with a hand out on drooling. Please do not hesitate to let me know if you have any questions about anything you read. Patient's perception of importance for healthcare provider to let them know of research trials for which they may be eligible? Somewhat important Interested in clinical research? Not discussed Updated Movement Disorders Medication Schedule: Medications 5:30am 10:30am 3:30pm 8:30pm 12am (when you wake up) Sinemet 25/100 CR 1 1 1 1 1 Propranolol 10 mg 1 1 Return at or around: 10/08/25 Level of service : 09491 ( 30-39 min). Time spent 32 min on the day of service, which included preparing to see the patient, [id number] patient care, completing clinical documentation, obtaining and/or reviewing separately obtained history, performing a medically appropriate examination, and counseling and educating the patient/family/caregiver. Alisson Sarabia APRN.DIRECT SUPPORT PROFESSIONAL * Ariadna Carr MA - 04/07/2025 11:41 AM EDT 04/04/2025 PROMIS Global Health Physical Health Summary Physical health: Fair Everyday physical activity, ability: Completely Fatigue: Moderate Pain level: 5 General health: Fair Social activities/roles, ability: Very good Physical Health T-Score 42.3 (Good) Physical Health Percentile 22 PROMIS Global Health Mental Health Summary Quality of life: Good Mental health (mood,thinking): Very good Social satisfaction: Very good Emotional problems (anxious,depressed): Never Mental Health T-Score 53.3 (Very Good) Mental Health Percentile 63 PHQ-9 Score: 3(Minimal Depression) PHQ-9 Self-Harm: Not at all Percentiles provide an indication of how a patient's score ranks in relation to the [place] general population. > 31st percentile is within normal limits or better *< 31st percentile is at least SD worse than population, which may be clinically relevant < 16th percentile is at least 1 SD worse than population and warrants attention documented in this encounterOhio[facility]06-26-2025 NoteHNO ID: [id number] Author: ALISSON SARABIA APRN.GARY Service: ? Author Type: Nurse Practitioner Type: Progress Notes Filed: 04/12/2025 20:47 Note Text: [facility] - FOLLOW UP EVALUATION Primary Movement Disorders Neurologist: Joseph Sarabia MD Primary Movement Disorders FER: Alisson Sarabia CNP Recording using Shutl software for draft documentation of the visit was discussed with the patient/authorized business process representative; all questions welcomed and answered. Patient/authorized business process representative agreed to proceed Eloina Chi MD [address] [place] [address] [address] [facility] [address] Dear Eloina Chi MD: I had the pleasure of seeing Mr. Parada for follow-up today. As you know he is a 80 year old right-handed male with a history of Parkinson's Disease since 2021. Subjective Previous Plan-09/21/2024 Visit: Add nighttime dose at bedtime of 1 tab Sinemet 25/100 CR. If awakening in the middle of the night, able to take 1 tab Sinemet 25/100 CR. Cut down to propranolol 10mg BID for one week then stop. Return to clinic in 6 months. Interested in clinical research? Not discussed Interval History: Mr. Parada is accompanied by his , who provides additional history. Glenn reports persistent lightheadedness, particularly in the mornings, which has been more pronounced recently. Yesterday, he felt faint throughout the morning, prompting a visit to his primary care physician, who diagnosed him with orthostatic hypotension and prescribed midodrine. He has not yet started this medication due to concerns about interactions with his current medications. He is currently taking propranolol for tremors, which worsened when he attempted to discontinue the medication. He also takes tamsulosin twice daily for urinary symptoms. He has experienced two recent falls, which he attributes to feeling lightheaded. He reports lower back pain and stiffness, particularly when walking, which limits his ability to walk as far as he used to. He does not notice any fluctuations in his symptoms related to medication timing. He experiences constipation, which has been better controlled since starting Mote[employer]ity. However, he reports no bowel movements for the past two days. He uses GoLYTELY occasionally, about once a month, for constipation relief. He reports drooling, primarily at night, but also during the day, describing it as squirting out. He expresses a desire to manage this symptom. He reports good sleep quality and does not endorse depression, anxiety, compulsive behaviors, hallucinations, or apathy. He no longer takes melatonin and does not have significant issues with acting out dreams, though his notes some mumbling and small movements during sleep. He does not experience restless leg sensations or leg swelling. His reports some memory problems, particularly with telling time and managing his medication schedule. He does not endorse hallucinations or loss of motivation. He participates in an exercise class and last engaged in formal physical therapy in the fall of 2022. He has not had recent eye or skin exams. Other symptoms and details are noted below in the completed questionnaire. Movement Disorders Medications Schedule - as of the start of the visit: Medications 530AM 1130AM 6PM Bedtime 12am (when you wake up) Sinemet 25/100 CR 1 1 1 1 1 Propranolol 10 mg (for tremor) 1 1 Parkinson's Motor Complications Medication benefit onset: unclear Medication duration: unclear Wearing off: no Painful off-state dystonia: no (Comment: He gets some cramping in his calves when he first wakes up) Dyskinesia: no Prior Anti-Parkinson Therapies Carbidopa/Levodopa CR Questionnaires: In addition, the following areas that may be affected by abnormal involuntary movements were evaluated: Daily activities Difficulties with eatin (none) Difficulties in dressing: Yes (mild) Difficulties with hygiene activities: 0 (none) Difficulties with handwriting: Yes (slight) Difficulties with doing hobbies and other activities: 0 (none) Difficulties turning in bed: Yes (slight) Difficulties getting out of bed, car or chair: Yes (slight) Tremors/Gait/Balance Shaking or tremors: 0 (none) Walking and balance problems: 0 (none) Number of falls in the Last Month: 2 Gait freezin (none) Autonomic/Pain Lightheadeness on standing: Yes (mild) Urinary problems: 0 (none) Constipation problems: Yes (slight) Pain and other sensations: Yes (severe) Speech/Swallowing Speech problems: Yes (mild) Drooling: Yes (moderate) Chewing and swallowing problems: 0 (none) Sleep/Fatigue Sleep problems: Yes (slight) Daytime sleepiness: Yes (mild) Fatigue: Yes (slight) Mood/Behavior Depression: PHQ-9 Score: 3 usually representing no significant (0-4) depression. Anxiety: PETRA-7 Total Score: 0 usually representing no significant (0-4) anxiety. Finally, the following table s (more content not included)...[facility]06-25-[facility]25 NoteHNO ID: [id number] Author: ARIADNA CARR MA Service: ? Author Type: Night Order Selector Type: Progress Notes Filed: 04/12/2025 20:47 Note Text: 04/04/2025 PROMIS Global Health Physical Health Summary Physical health: Fair Everyday physical activity, ability: Completely Fatigue: Moderate Pain level: 5 General health: Fair Social activities/roles, ability: Very good Physical Health T-Score 42.3 (Good) Physical Health Percentile 22 PROMIS Global Health Mental Health Summary Quality of life: Good Mental health (mood,thinking): Very good Social satisfaction: Very good Emotional problems (anxious,depressed): Never Mental Health T-Score 53.3 (Very Good) Mental Health Percentile 63 PHQ-9 Score: 3(Minimal Depression) PHQ-9 Self-Harm: Not at all Percentiles provide an indication of how a patient's score ranks in relation to the [place] general population. > 31st percentile is within normal limits or better *< 31st percentile is at least ? SD worse than population, which may be clinically relevant < 16th percentile is at least 1 SD worse than population and warrants attentionTrihealth [facility]05-13-2025 Miscellaneous Notes* Telephone Encounter - Ana Laura Schwab - 02/23/2025 9:58 AM EDT Request from patient requesting refill. Please E-Scribe to [facility]. Last OV: 09/21/24 with CHANDLER Future OV: 04/08/25 with Alisson Requested Prescriptions Pending Prescriptions Disp Refills propranolol (INDERAL) 20 mg tablet 60 tablet 11 Sig: Take 1 tablet by mouth every 12 hours. Ana Laura Lopez documented in this encounterOhio[facility]05-13-2025 Telephone encounter Note * Telephone Encounter - Ana Laura Schwab - 02/23/2025 9:58 AM EDT Request from patient requesting refill. Please E-Scribe to [facility]. Last OV: 09/21/24 with CHANDLER Future OV: 04/08/25 with Alisson Requested Prescriptions Pending Prescriptions Disp Refills propranolol (INDERAL) 20 mg tablet 60 tablet 11 Sig: Take 1 tablet by mouth every 12 hours. Ana Laura S [facility]03-15-2025 Radiology Diagnostic study note [facility] Imaging Services [address] [place] [address] Hand Min 3 Views MR#: [id number] Acct: [id number] Name: GLENN PARADA DEV Rep #: [id number] : 1945 M 79 From: Rena King MD PCP: Dr. Eloina Chi MD Status: REG ER Study:Hand Min 3 Views Date of Exam: Exam# [id number] Ordering Dr: Carlos Dennis MD PROCEDURE: HAND MIN 3 VIEWS REASON FOR EXAM: TRAUMA TECHNIQUE: 3 view(s) of the left hand COMPARISON: None. FINDINGS: No visible fracture. No suspicious bone lesion. Normal alignment. 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 Mild narrowing of the distal interphalangeal joints of the 2nd through 5th digits. Soft tissues are unremarkable. RAD/Hand Min 3 Views IMPRESSION: No acute osseous abnormalities. 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 Mild degenerative changes of the distal interphalangeal joints. Reading Location: [id number] CC: Dr. Carlos Dennis MD; Dr. Eloina Chi MD ~ Claim Investigator: Signed [facility]03-15-2025 Radiology Diagnostic study note [facility] Imaging Services [address] [place], [place] [id number] Spine Cervical without Contras MR#: [id number] Acct: [id number] Name: GLENN PARADA DEV Rep #: [id number] : 1945 M 79 From: Zeb Alvarado MD PCP: Dr. Eloina Chi MD Status: REG ER Study:Spine Cervical without Contras Date of Exam: 12/26/24 Exam# [id number] Ordering Dr: Carlos Dennis MD PROCEDURE: SPINE CERVICAL WITHOUT CONTRAS REASON FOR EXAM: TRAUMA TECHNIQUE: Cervical spine CT without contrast. COMPARISON: None. FINDINGS: Scattered mild multilevel degenerative disc disease. There is no evidence of acute cervical spine fracture. Vascular calcification. Prevertebral soft tissues within normal limits. CT/Spine Cervical without Contras IMPRESSION: No findings of acute cervical spine fracture. One or more dose reduction techniques were used (e.g., Automated exposure control, adjustment of the mA and/or kV according to patient size, use of iterative reconstruction technique). Reading Location: [facility] CC: Dr. Carlos Dennis MD; Dr. Eloina Chi MD ~ Claim Investigator: Signed [facility]03-15-2025 Radiology Diagnostic study note [facility] Imaging Services [address] [place], [place] [address] Brain/Head without Contrast MR#: [id number] Acct: [id number] Name: GLENN PARADA DEV Rep #: [id number] : 1945 M 79 From: Zeb Alvarado MD PCP: Dr. Eloina Chi MD Status: REG ER Study:Brain/Head without Contrast Date of Exa m: 12/26/24 Exam# [id number] Ordering Dr: Carlos Dennis MD EXAM: BRAIN/HEAD WITHOUT CONTRAST CLINICAL HISTORY: TRAUMA COMPARISON: 04/2024 TECHNIQUE: Noncontrast head CT performed FINDINGS: Right frontal soft tissue swelling. Global volume loss detected. Mild chronic small vessel ischemicchange noted. Encephalomalacia again seen in the left occipital lobe. No mass effect. No midline shift. Ethmoid sinus mucosal thickening. CT/Brain/Head without Contrast IMPRESSION: No acute traumatic findings. Senescent changes. Reading Location: [facility] CC: Dr. Carlos Dennis MD; Dr. Eloina Chi MD ~ Claim Investigator: Signed [facility]12-22-2024 Evaluation note* Diagnosis Onset Date Resolution Status Admit Date Cat bite acute October 04, 2024 8:05am [facility] Work Phone: 1(168) 349-812712-09-2024 Instructions* Patient Instructions* Stephan Macario MD - 09/21/2024 5:05 PM EST Take an extra Sinemet 25/100 CR at bedtime. Decrease to propranolol to 10mg twice daily for one week then discontinue. Return to clinic in 6 months. documented in this encounterOhio[facility]12-09-2024 NoteHNO ID: [id number] Author: JOSEPH SARABIA MD Service: ? Author Type: Physician Type: Progress Notes Filed: 10/04/2024 19:14 Note Text: [facility] - FOLLOW UP EVALUATION Eloina Chi MD [address] [place] [address] [facility] [address] Dear Eloina Chi MD: I had the pleasure of seeing Mr. Parada for follow-up today. As you know he is a 79 year old right-handed male with a history of Parkinson's Disease since 2021. He is seen with his . Subjective Previous Plan-06/25/2024 Visit: Parkinson's disease: Continue current medication schedule except add one dose of Sinemet CR when you wake up at midnight to go to the bathroom to see if your morning starts off better in regard to your tremor, overall movement, and thinking Continue exercising Orthostatic hypotension (drops in blood pressure) : As we discussed your blood pressure continues to drop. Please make sure you are changing positions slowly and drinking plenty of water. Cognition: Since you had to leave early today, at your next office visit, a BACH will be done in the office after you see Dr. Sarabia. Interval History: -He has been taking the midnight Sinemet if he wakes up in the middle of the night. When he does take it, symptoms in the morning are better controlled, including his tremor and confusion. -No issues with wearing off early from Sinemet. No side effects from Sinemet. No dyskinesias or trouble sleeping. -Occasionally acts out his dreams, with intermittent arm movements or shoving. -Takes Miralax BID for constipation. 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 -A few days prior, he had an episode of dizziness in the morning after getting up. Usually moves from sitting to standing slowly. Drinks more than 64 ounces per day per . Does not wear compression stockings. 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 -He walks twice a day for 20 minutes at a time, for approximately 1 mile. He does home exercises with a video (PD specific exercises). Movement Disorders Medications Schedule - as of the start of the visit: Medications 6AM 1130AM 6PM 9PM 12am (when you wake up) Sinemet 25/100 CR 1 1 1 1 Propranolol 20 mg 1 1 Parkinson's Motor Complications Medication benefit onset: 5 minutes Medication duration: 6 hours Wearing off: no Painful off-state dystonia: no (Comment: He gets some cramping in his calves when he first wakes up) Dyskinesia: no Prior Anti-Parkinson Therapies Carbidopa/Levodopa CR Questionnaires: In addition, the following areas that may be affected by abnormal involuntary movements were evaluated: Daily activities Difficulties with eatin (none) Difficulties in dressing: Yes (slight) Difficulties with hygiene activities: 0 (none) Difficulties with handwriting: Yes (mild) Difficulties with doing hobbies and other activities: 0 (none) Difficulties turning in bed: Yes (slight) Difficulties getting out of bed, car or chair: Yes (slight) Tremors/Gait/Balance Shaking or tremors: Yes (slight) Walking and balance problems: Number of falls in the Last Month: none Gait freezin (none) Autonomic/Pain Lightheadeness on standing: Yes (mild) Urinary problems: 0 (none) Constipation problems: Yes (severe) Pain and other sensations: 0 (none) Speech/Swallowing Speech problems: Yes (mild) Drooling: Yes (severe) Chewing and swallowing problems: 0 (none) Sleep/Fatigue Sleep problems: 0 (none) Daytime sleepiness: Yes (mild) Fatigue: 0 (none) Mood/Behavior Depression: PHQ-9 Score: 1 usually representing no significant (0-4) depression. Anxiety: PETRA-7 Total Score: 0 usually representing no significant (0-4) anxiety. Finally, the following table shows the patient's overall global physical and mental health using the PROMIS scale: PROMIS-10 Flowsheet Row Office Visit from 09/21/2024 in [facility] Office Visit from 06/25/2024 in [facility] Global Physical Health T Score 50.8 44.9 Global Mental Health T Score 53.3 56 0-10 Standard Pain Scale 4 4 *PROMIS-10 scoring scale: mean = 50, over 50 is above average, under 50 is below average ALLERGIES No Known Allergies Current Outpatient Medications Medication Sig peg 3350-Electrolytes (GOLYTELY) 236-22.74-6.74 -5.86 gram suspension DRINK NEEDED FOR CONSTIPATION levothyroxine (SYNTHROID) 50 mcg tablet Take 1 tablet by mouth every afternoon. lactulose 10 gram/15 mL solution Take 30 mL by mouth as needed. omeprazole (PRILOSEC) 40 mg capsule Take 1 capsule by mouth once daily. tamsulosin (FLOMAX) 0.4 mg Take 1 capsule by mouth every 12 hours. OTC NUTRITIONAL SUPPLEMENT Take 1 tablet by mouth once daily. Vitamin C, Vitamin B Complex, Vitamin B-12, and Calcium. propranolol (INDERAL) 20 mg tablet Take 1 tablet by mouth every 12 hours. prucalopride (MOTEGRITY) 2 mg tab tablet Take 1 tablet (2 mg) by mouth (more content not included)...[facility]12-[facility]24 History of Present illness Narrative* Joseph Sarabia MD - 09/21/2024 4:00 PM EST [facility] - FOLLOW UP EVALUATION MD Eyal Ross [address] [facility] [id number] Dear Eloina Chi MD: I had the pleasure of seeing Mr. Parada for follow-up today. As you know he is a 79 year old right-handed male with a history of Parkinson's Disease since 2021. He is seen with his . Subjective Previous Plan-06/25/2024 Visit: Parkinson's disease: Continue current medication schedule except add one dose of Sinemet CR when you wake up at midnightto go to the bathroom to see if your morning starts off better in regard to your tremor, overall movement, and thinking Continue exercising Orthostatic hypotension (drops in blood pressure) : As we discussed your blood pressure continues to drop. Please make sure you are changing positions slowly and drinking plenty of water. Cognition: Since you had to leave early today, at your next office visit, a BACH will be done in the office after you see Dr. Sarabia. Interval History: -He has been taking the midnight Sinemet if he wakes up in the middle of the night. When he does take it, symptoms in the morning are better controlled, including his tremor and confusion. -No issues with wearing off early from Sinemet. No side effects from Sinemet. No dyskinesias or trouble sleeping. -Occasionally acts out his dreams, with intermittent arm movements or shoving. -Takes Miralax BID for constipation. 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 -A few days prior, he had an episode of dizziness in the morning after getting up. Usually moves from sitting to standing slowly. Drinks more than 64 ounces per day per . Does not wear compression stockings. 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 -He walks twice a day for 20 minutes at a time, for approximately 1 mile. He does home exercises with a video (PD specific exercises). Movement Disorders Medications Schedule - as of the start of the visit: Medications 6AM 1130AM 6PM 9PM 12am (when you wake up) Sinemet 25/100 CR 1 1 1 1 Propranolol 20 mg 1 1 Parkinson's Motor Complications Medication benefit onset: 5 minutes Medication duration: 6 hours Wearing off: no Painful off-state dystonia: no (Comment: He gets some cramping in his calves when he first wakes up) Dyskinesia: no Prior Anti-Parkinson Therapies Carbidopa/Levodopa CR Questionnaires: In addition, the following areas that may be affected by abnormal involuntary movements were evaluated: Daily activities Difficulties with eatin (none) Difficulties in dressing: Yes (slight) Difficulties with hygiene activities: 0 (none) Difficulties with handwriting: Yes (mild) Difficulties with doing hobbies and other activities: 0 (none) Difficulties turning in bed: Yes (slight) Difficulties getting out of bed, car or chair: Yes (slight) Tremors/Gait/Balance Shaking or tremors: Yes (slight) Walking and balance problems: Number of falls in the Last Month: none Gait freezin (none) Autonomic/Pain Lightheadeness on standing: Yes (mild) Urinary problems: 0 (none) Constipation problems: Yes (severe) Pain and other sensations: 0 (none) Speech/Swallowing Speech problems: Yes (mild) Drooling: Yes (severe) Chewing and swallowing problems: 0 (none) Sleep/Fatigue Sleep problems: 0 (none) Daytime sleepiness: Yes (mild) Fatigue: 0 (none) Mood/Behavior Depression: PHQ-9 Score: 1 usually representing no significant (0-4) depression. Anxiety: PETRA-7 Total Score: 0 usually representing no significant (0-4) anxiety. Finally, the following table shows the patient's overall global physical and mental health using the PROMIS scale: PROMIS-10 Flowsheet Row Office Visit from 09/21/2024 in [facility] Visit from 06/25/2024 in Neurology Global Physical Health T Score 50.8 44.9 Global Mental Health T Score 53.3 56 0-10 Standard Pain Scale 4 4 *PROMIS-10 scoring scale: mean = 50, over 50 is above average, under 50 is below average ALLERGIES No Known Allergies Current Outpatient Medications Medication Sig peg 3350-Electrolytes (GOLYTELY) 236-22.74-6.74 -5.86 gram suspension DRINK NEEDED FOR CONSTIPATION levothyroxine (SYNTHROID) 50 mcg tablet Take 1 tablet by mouth every afternoon. lactulose 10 gram/15 mL solution Take 30 mL by mouth as needed. omeprazole (PRILOSEC) 40 mg capsule Take 1 capsule by mouth once daily. tamsulosin (FLOMAX) 0.4 mg Take 1 capsule by mouth every 12 hours. OTC NUTRITIONAL SUPPLEMENT Take 1 tablet by mouth once daily. Vitamin C, Vitamin B Complex, VitaminB-12, and Calcium. propranolol (INDERAL) 20 mg tablet Take 1 tablet by mouth every 12 hours. prucalopride (MOTEGRITY) 2 mg tab tablet Take 1 tablet (2 mg) by mouth once daily. polyethylene glycol 3350 (MIRALAX) 17 gram packet Take 17 g by mouth two times a day. Dissolve dosein 4 - 8 ounces of liquid and take as directed. carbidopa-levodopa CR (SINEMET CR) 25-100 mg per tablet Take 1 tablet by mouth four times daily. At6am, 12pm, 6pm, 8pm and 12am (if awakening at night) No current facility-administered medications for this visit. Objective Vital Signs: Ht 172.7 cm (5' 8) Wt 74.8 kg (165 lb) SpO2 100% BMI 25.09 kg/m Orthostatic Vitals: Sitting: BP 111/67 Pulse 66 Standing: BP 96/57 Pulse 70 Weight: 74.8 kg (165 lb) Height: 172.7 cm (5' 8) No LMP for male patient. Body mass index is25.09 kg/m . General Physical Examination: GENERAL: Awake/easily arousable. HEENT: Normocephalic/atraumatic RESPIRATORY: Normal respiratory effort. CARDIOVASCULAR: No lower extremity edema. GI: Not examined EXTREMITIES: No cyanosis, clubbing or edema. SKIN: Skin color, texture, turgor normal. No rashes or lesions. General Neurological Examination: Neurological Exam Mental Status Awake, alert and oriented to person, place and time. Speech: Slowed speech.. Language is fluent with no aphasia. Attention and concentration are normal. Cranial Nerves CN II: Visual cosby full to confrontation. CN III, IV, : Extraocular movements intact bilaterally. Normal lids and orbits bilaterally. Pupils equal round and reactive to light bilaterally. CN V: Facial sensation is normal. CN VII: Full and symmetric facial movement. CN VIII: Hearing is normal. CN IX, X: Palate elevates symmetrically CN XI: Shoulder shrug strength is normal. CN XII: Tongue midline without atrophy or fasciculations. Motor Normal muscle bulk throughout. No fasciculations present. Normal muscle tone. No abnormal involuntary movements. Strength is 5/5 throughout all four extremities. Sensory Light touch is normal in upper and lower extremities. Reflexes Right Left Brachioradialis 2+ 2+ Biceps 2+ 2+ Triceps 2+ 2+ Patellar 2+ 2+ Achilles 2+ 2+ Right pathological reflexes: Crossed adductor present. Left pathological reflexes: Crossed adductor present. Coordination Right: Nktovs-tp-urez normal. Xgue-uk-hgrj normal.Left: Waotam-xp-wrzo normal. Gjqs-pv-hhgh normal. Gait Casual gait is normal including stance, stride, and arm swing. Normal pull test. Able to rise from chair without using arms. Mild decreased arm swing bilaterally. Stooped posture when ambulating. Normal turning. No accentuation or presence of tremor with walking. . Movement Disorders Cognitive and Motor Biomeasures: 09/21/2024 Processing Speed Processing Speed Total Number Correct 17 Processing Speed Z score -1.38 09/21/2024 VMT Memory Raw Score 19 Memory Z Score -1.45 09/21/2024 MDT - RIGHT Hand Dominant MDT Right Hand Time 42.89 Dominant Hand % 0 MDT Left Hand Time 57.63 Non-Dominant Hand % 0 09/21/2024 Walking Speed Walking Speed Test (25 feet) 7.27 WST Percentile 6 *Percentile interpretation: Higher is better. A score < 50 would be worse than predicted, [id number] would be near predicted and > 50 would be better than predicted. Z score interpretation: higher than -1.5 is within normal; -1.5 to - 2.0 represents mild impairment; lower than -2.0 represents significant impairment Movement Disorders Scales Performed: MDS-UPDRS Motor subscale condition of exam Medication Off/On/Naiive ON Time of UPDRS 1612 Time of Last Medication 1130 Last Medication Taken Sinemet 25/100 CR DBS Right N/A DBS Left N/A MDS-UPDRS Motor subscale scores Speech 2-Mild. Loss of modulation, diction, or volume, with a few words unclear, but the overall sentences easy to follow. Facial Expression 2-Mild. In addition to decreased eye-blink frequency, Masked facies present in the lower face as well, namely fewer movements around the mouth, such as less spontaneous smiling, butlips not parted. Rigidity Neck 2-Mild. Rigidity detected without the activation maneuver, but full range of motion is easily achieved. Rigidity Right Upper Extremity 2-Mild. Rigidity detected without the activation maneuver, but full range of motion is easily achieved. Rigidity Left Upper Extremity 2-Mild. Rigidity detected without the activation maneuver, but full range of motion is easily achieved. Rigidity Right Lower Extremity 0-Normal. No rigidity. Rigidity Left Lower Extremity 0-Normal. No rigidity. Finger Taps Right 1-Slight. a) the regular rhythm is broken with one or two interruptions or hesitations of the tapping movement, b) slight slowing, c) the amplitude decrements near the end of the 10taps. Finger Taps Left 1-Slight. a) the regular rhythm is broken with one or two interruptions or hesitations of the tapping movement, b) slight slowing, c) the amplitude decrements near the end of the 10 taps. Hand Movements Right 0-Normal. No problem. Hand Movements Left 0-Normal. No problem. Arm Movements Right 0-Normal. No problems. Arm Movements Left 1-Slight. a) the regular rhythm is broken with one or two interruptions or hesitations of the movement, b) slight slowing, c) the amplitude decrements near the end of the sequence. Toe Taps Right 1-Slight. a) the regular rhythm is broken with one or two interruptions or hesitations of the tapping movement, b) slight slowing, c) the amplitude decrements near the end of the ten taps. Toe Taps Left 2-Mild. a) 3 to 5 interruptions during the tapping movements, b) mild slowing, c) theamplitude decrements midway in the task. Leg Agility Right 0-Normal. No problems. Leg Agility Left 1-Slight. a) the regular rhythm is broken with one or two interruptions or hesitations of the movement, b) slight slowing, c) the amplitude decrements near the end of the task. Arise From Chair 0-Normal. No problems. Able to arise quickly without hesitation. Gait 1-Slight. Independent walking with minor gait impairment. Gait Freezing 0-Normal. No freezing. Posture Stability 0-Normal. No problems: recovers with one or two steps. Posture 2-Mild. Definite flexion, scoliosis or leaning to one side, but patient can correct postureto normal posture when asked to do so. Body Bradykinesia 2-Mild. Mild global slowness and poverty of spontaneous movements. Postural Tremor Hand Right 0-Normal. No tremor. Postural Tremor Hand Left 0-Normal. No tremor. Kinetic Tremor Right 0-Normal. No tremor. Kinetic Tremor Left 1-Slight. Tremor is present but less than 1cm in amplitude. Rest Tremor Amplitude Right Upper Extremity 0-Normal. No tremor. Rest Tremor Amplitude Left Upper Extremity 0-Normal. No tremor. Rest Tremor Amplitude Right Lower Extremity 0-Normal. No tremor. Rest Tremor Amplitude Left Lower Extremity 0-Normal. No tremor. Rest Tremor Amplitude Lip/Jaw 0-Normal. No tremor. Rest Tremor Constancy 0-Normal. No tremor. MDS-UPDRS Motor subscale totals Left Total 8 Right Total 4 Midline Total 11 Tremor Total / 10 1 PIGD Total / 3 1 Overall Total 23 Change Better/Worse Unchanged % Change Compared to Last Filed Total 0 Assessment and Plan: Assessment Mr. Parada is a right-handed 79 year old year old male with Parkinson's Disease diagnosed in 2021 with left side predominant symptoms responsive to Sinemet. Examination today is unchanged from last in person exam March 2024. Patient feels his current schedule of Sinemet CR during the day is adequately covering his symptoms. He does feel improved symptoms in terms of tremor and cognition upon awakening when he takes a dose of the Sinemet CR if he wakes up in the middle of the night, however, he does not want to set an alarm to wake up for this dose. Patient will likely benefit from an added scheduled dose prior to bedtime to prevent the wearing off of Sinemet that occurs overnight. He also wants to discuss tapering off propranolol as he was initially started on it for suspected essential tremor and is having difficulties with orthostatic hypotension. The following are the current problems noted and addressed during this visit: Parkinson's disease without dyskinesia or fluctuating manifestations (hcc) (primary encounter diagnosis) Cognitive and behavioral changes Plan 09/21/2024 Visit: Add nighttime dose at bedtime of 1 tab Sinemet 25/100 CR. If awakening in the middle of the night, able to take 1 tab Sinemet 25/100 CR. Cut down to propranolol 10mg BID for one week then stop. Return to clinic in 6 months. Interested in clinical research? Not discussed Updated Movement Disorders Medication Schedule: Medications 530AM 1130AM 6PM 8PM 12am (when you wake up) Sinemet 25/100 CR 1 1 1 1 1 Propranolol 10 mg 1 1 Return at or around: 03/22/25 Thank you for allowing me to be part of the clinical care of this patient! I look forward to continued participation in the patient s care with you. Please do not hesitate to call with any questions. Sincerely, Stephan Macario MD Neurology PGY-3 10/04/2024 7:13 PM I reviewed the history and physical obtained and documented by the resident and I personally participated in the ordaz components. I agree with impression and plan. Joseph Sarabia MD [facility] Tele[facility] encounter Note * Telephone Encounter - Jael Ch RN - 08/11/2024 11:29 AM EDT Spoke with nurse Naomi Davis, she discussed with Dr. Chi and received approval to wean down or discontinue propranolol. [facility] Miscellaneous Notes* Telephone Encounter - Jael Ch RN - 08/11/2024 11:29 AM EDT Spoke with nurse Naomi Davis, she discussed with Dr. Chi and received approval to wean down or discontinue propranolol. * Telephone Encounter - Jael Ch RN - 08/10/2024 3:32 PM EDT Call to PCP to see if we can wean him down or off the propranolol since his blood pressure tends to be low and drop or is he on it for another reason and it should remain at the current dose - per Alisson Sarabia Call to PCP, busy signal. Call to patient to confirm PCP information. No answer. Message left for return call. [facility] Telephone encounter Note * Telephone Encounter - Jael Ch RN - 08/10/2024 3:32 PM EDT Call to PCP to see if we can wean him down or off the propranolol since his blood pressure tends to be low and drop or is he on it for another reason and it should remain at the current dose - per Alisson Sarabia Call to PCP, busy signal. Call to patient to confirm PCP information. No answer. Message left for return call. [facility] Instructions* Patient Instructions* Salma Chamberlain MD - 07/30/2024 2:32 PM EDT - Stop Motegrity. - No Linzess. - Stop Senna - Miralax twice per day; - If you have diarrhea, then decrease Miralax to once per day. - If you still have constipation, then increase Miralax to three times per day. - Use enema once every day. documented in this encounterOhio[facility]24 NoteHNO ID: [id number] Author: SALMA CHAMBERLAIN MD Service: ? Author Type: Physician Type: Progress Notes Filed: 07/30/2024 16:19 Note Text: CHIEF COMPLAINT: Patient presents with: Second Opinion: Chronic constipation, previous patient Dr. Gil Glenn Parada is a 79 year old male who presents for Second Opinion (Chronic constipation, previous patient Dr. Gil). HPI: 79 YOM has constipation on lactulose. Hx of hypothyroidism on levo 50 mcg. Hx of Parkinsonism. Hx of celiac disease on GFD. Constipation: Has had constipation all of his life but this has been worsening over the past 1 year. Unable to have a BM without laxatives, he had multiple visits tot he ER with constipation. Resolved with enema. He was on Miralax daily but still had constipation and would have to use Mg Citrate. Currently on Benefiber three times per day. Tried Linzess 290 without a good response and was switched to Motegrity did not help. Multiple colonoscopies and EGDs in the past. No path results available. Colonoscopy in 2022 non contributory. AXR March 2023 Large amount of fecal material is seen in the colon. Record Review: [facility] / Outside records reviewed. PAST MEDICAL HISTORY Diagnosis Date BPH (benign prostatic hyperplasia) Celiac disease GERD (gastroesophageal reflux disease) Hypothyroidism Parkinson's disease (HCC) PAST SURGICAL HISTORY Procedure Laterality Date COLONOSCOPY 10/20/2019 2 polyps, diverticulosis COLONOSCOPY 08/13/2023 normal, internal hemorroids COLONOSCOPY 10/31/2022 poor prep COLONOSCOPY 12/07/2019 large polyp EMR ascending colon COLONOSCOPY 07/21/2020 3 polyps removed EGD 10/20/2019 small hiatal hernia, gastritis EGD 10/31/2022 hiatal hernia REPAIR UMBILICAL HERNIA Allergies: ALLERGIES No Known Allergies Medications: SENNA 8.6 mg tab Take 1 tablet by mouth every 12 hours. peg 3350-Electrolytes (GOLYTELY) 236-22.74-6.74 -5.86 gram suspension DRINK NEEDED FOR CONSTIPATION carbidopa-levodopa CR (SINEMET CR) 25-100 mg per tablet Take 1 tablet by mouth four times daily. At 6am, 12pm, 6pm, and 12am prucalopride (MOTEGRITY) 2 mg tab tablet Take 2 mg by mouth once daily. levothyroxine (SYNTHROID) 50 mcg tablet Take 1 tablet by mouth every afternoon. lactulose 10 gram/15 mL solution Take 30 mL by mouth as needed. omeprazole (PRILOSEC) 40 mg capsule Take 1 capsule by mouth once daily. tamsulosin (FLOMAX) 0.4 mg Take 1 capsule by mouth every 12 hours. OTC NUTRITIONAL SUPPLEMENT Take 1 tablet by mouth once daily. Vitamin C, Vitamin B Complex, Vitamin B-12, and Calcium. propranolol (INDERAL) 20 mg tablet Take 1 tablet by mouth every 12 hours. FAMILY HISTORY Problem Relation Age of Onset Leukemia Mother Cancer Brother Colon Cancer No Family History Pancreatic Cancer No Family History Employer And Job Title: None on file Years Of Education Completed: Not specified Marital Status: Social History Tobacco Use Smoking status: Former Current packs/day: 0.00 Types: Cigarettes Quit date: 1970 Years since quittin.8 Smokeless tobacco: Never Substance Use Topics Alcohol use: Not Currently Review of Systems: Review of Systems Constitutional: Positive for fatigue. Gastrointestinal: Positive for constipation. Gas All other systems reviewed and are negative. Are you taking any blood thinners? No Physical Examination: BP 124/78 Ht 5' 8 (1.73m) Wt 166 lb 14.4 oz (75.7kg) BMI 25.38 kg/(m2). Physical Exam HENT: Head: Normocephalic. Abdominal: General: There is no distension. Tenderness: There is no abdominal tenderness. Neurological: Mental Status: He is alert. ASSESSMENT: 1. Constipation - CIC vs. Medication induced vs. Hypothyroidism. - Stop Motegrity. - Stop Linzess. - Stop Senna - Miralax twice per day; - If you have diarrhea, then decrease Miralax to once per day. - If you still have constipation, then increase Miralax to three times per day. - Use enema once every day. - TSH and Ca ordered. 2. Hx of celiac disease - No biopsy results available. - On GFD. - [employer] HLA-DQ GENOTYPE; Future - CELIAC SCREEN WITH REFLEX; Future Salma Chamberlain MD DATE: 07/30/24 TIME: 1:56 [facility] History of Present illness Narrative* Salma Chamberlain MD - 07/30/2024 1:53 PM EDT CHIEF COMPLAINT: Patient presents with: Second Opinion: Chronic constipation, previous patient Dr. Jeffery Parada is a 79 year old male who presents for Second Opinion (Chronic constipation, previous patient Dr. Gil). HPI: 79 YOM has constipation on lactulose. Hx of hypothyroidism on levo 50 mcg. Hx of Parkinsonism.Hx of celiac disease on GFD. Constipation: Has had constipation all of his life but this has been worsening over the past 1 year. Unable to have a BM without laxatives, he had multiple visits tot he ER with constipation. Resolved with enema. He was on Miralax daily but still had constipation and would have to use Mg Citrate. Currently on Benefiber three times per day. Tried Linzess 290 without a good response and was switched to Motegrity did not help. Multiple colonoscopies and EGDs in the past. No path results available. Colonoscopy in 2022 non contributory. AXR March 2023 Large amount of fecal material is seen in the colon. Record Review: [facility] / Outside records reviewed. PAST MEDICAL HISTORY Diagnosis Date BPH (benign prostatic hyperplasia) Celiac disease GERD (gastroesophageal reflux disease) Hypothyroidism Parkinson's disease (HCC) PAST SURGICAL HISTORY Procedure Laterality Date COLONOSCOPY 10/20/2019 2 polyps, diverticulosis COLONOSCOPY 08/13/2023 normal, internal hemorroids COLONOSCOPY 10/31/2022 poor prep COLONOSCOPY 12/07/2019 large polyp EMR ascending colon COLONOSCOPY 07/21/2020 3 polyps removed EGD 10/20/2019 small hiatal hernia, gastritis EGD 10/31/2022 hiatal hernia REPAIR UMBILICAL HERNIA Allergies: ALLERGIES No Known Allergies Medications: SENNA 8.6 mg tab Take 1 tablet by mouth every 12 hours. peg 3350-Electrolytes (GOLYTELY) 236-22.74-6.74 -5.86 gram suspension DRINK NEEDED FOR CONSTIPATION carbidopa-levodopa CR (SINEMET CR) 25-100 mg per tablet Take 1 tablet by mouth four times daily. At6am, 12pm, 6pm, and 12am prucalopride (MOTEGRITY) 2 mg tab tablet Take 2 mg by mouth once daily. levothyroxine (SYNTHROID) 50 mcg tablet Take 1 tablet by mouth every afternoon. lactulose 10 gram/15 mL solution Take 30 mL by mouth as needed. omeprazole (PRILOSEC) 40 mg capsule Take 1 capsule by mouth once daily. tamsulosin (FLOMAX) 0.4 mg Take 1 capsule by mouth every 12 hours. OTC NUTRITIONAL SUPPLEMENT Take 1 tablet by mouth once daily. Vitamin C, Vitamin B Complex, VitaminB-12, and Calcium. propranolol (INDERAL) 20 mg tablet Take 1 tablet by mouth every 12 hours. FAMILY HISTORY Problem Relation Age of Onset Leukemia Mother Cancer Brother Colon Cancer No Family History Pancreatic Cancer No Family History Employer And Job Title: None on file Years Of Education Completed: Not specified Marital Status: Social History Tobacco Use Smoking status: Former Current packs/day: 0.00 Types: Cigarettes Quit date: 1970 Years since quittin.8 Smokeless tobacco: Never Substance Use Topics Alcohol use: Not Currently Review of Systems: Review of Systems Constitutional: Positive for fatigue. Gastrointestinal: Positive for constipation. Gas All other systems reviewed and are negative. Are you taking any blood thinners? No Physical Examination: BP 124/78 Ht 5' 8 (1.73m) Wt 166 lb 14.4 oz (75.7kg) BMI 25.38 kg/(m^2). Physical Exam HENT: Head: Normocephalic. Abdominal: General: There is no distension. Tenderness: There is no abdominal tenderness. Neurological: Mental Status: He is alert. ASSESSMENT: 1. Constipation - CIC vs. Medication induced vs. Hypothyroidism. - Stop Motegrity. - Stop Linzess. - Stop Senna - Miralax twice per day; - If you have diarrhea, then decrease Miralax to once per day. - If you still have constipation, then increase Miralax to three times per day. - Use enema once every day. - TSH and Ca ordered. 2. Hx of celiac disease - No biopsy results available. - On GFD. - CELIAC ASSOC HLA-DQ GENOTYPE; Future - CELIAC SCREEN WITH REFLEX; Future Salma Chamberlain MD DATE: 07/30/24 TIME: 1:56 PM documented in this encounter[facility] Instructions* Patient Instructions* Alisson Sarabia APRN.DIRECT SUPPORT PROFESSIONAL - 06/25/2024 4:05 PM EDT documented in this encounterOhio[facility]09-12-2024 NoteHNO ID: [id number] Author: ALISSON SARABIA APRN.GARY Service: ? Author Type: Nurse Practitioner Type: Progress Notes Filed: 06/26/2024 06:26 Note Text: [facility] - FOLLOW UP EVALUATION Eloina Chi MD [address] [facility] [address] Dear Eloina Chi MD: I had the pleasure of seeing Mr. Parada for follow-up today. As you know he is a 79 year old right-handed male with a history of Parkinson's disease since 2021. He is seen with his . Subjective Previous Plan-03/17/2024 Visit: Parkinson's disease: Continue current medication schedule Continue exercising Orthostatic hypotension (drops in blood pressure) : As we discussed your blood pressure dropped today when you stood up. Please measure your blood pressure sitting and standing for one week at approximately the same time every day If it continues to drop (top number 20 points or more or bottom number 10 points or more) please let me know and also make sure your primary care provider is aware. We may reduce the propranolol if needed. Date/Time BP Sitting Heart Rate Sitting BP Standing Heart Rate Standing If you find it is dropping and not just today: Guidelines for the Treatment of orthostatic hypotension (low blood pressure upon standing) 1. Make all position changes from lying to sitting or sitting to standing, slowly. 2. Increase salt in your diet but ONLY IF THIS IS OK with your primary care provider, Otherwise, do not do this. 3. Avoid large meals which can cause low blood pressure during digestion. It is better to eat smaller meals more often than three large meals. 4. Avoid alcohol. 5. Perform lower extremity exercises to improve strength of the leg muscles. This will help prevent blood from pooling in the legs when standing and walking. 6 Raise the head of the bed by 6 to 10 inches. The entire bed must be at an angle. Raising only the head portion of the bed at waist level or using pillows will not be effective. 7 Drink 16oz of water quickly as soon as you wake up in the morning BEFORE you even get out of bed. This will result in an increased blood pressure within a short time of drinking the water. The effect will only last approximately up to one hour so continue staying well hydrated throughout the day. 8. Use custom fitted elastic support stockings. These will reduce a tendency for blood to pool in the legs when standing and may improve orthostatic intolerance. These have to be Thigh-high. Compression stockings that only reach the knees are not as helpful. 9. Avoid overly hot showers/baths, hot tubs and saunas as these can also lower your blood pressure Constipation: I have provided a comprehensive hand out from the [employer]'s [employer] on steps that can be taken to help with constipation as well as a recipe from the [facility]. 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 By Mail: [facility] Information Management, Ab7 Advance Directive Processing [phone] [place], [place] [phone] By In person at any [facility] location Please note: You can use the address or fax number regardless of which [facility] you utilize, and we will make sure it is filed appropriately. Interval History: His main concern is constipation. His said her main concern is his confusion in the morning for about an hour after he wakes up. He is also more shaky. Movement Disorders Medications Schedule - as of the start of the visit: Medications 6AM 1130AM 6PM 9PM Sinemet 25/100 CR 1 1 1 Propranolol 20 mg 1 1 Melatonin 5 mg 1 Parkinson's Motor Complications Medication benefit onset: unclear Medication duration: unclear Wearing off: no Painful off-state dystonia: (Comment: He gets some cramping in his calves when he first wakes up) Dyskinesia: no Prior Anti-Parkinson Therapies Carbidopa/Levodopa CR Questionnaires: In addition, the following areas that may be affected by abnormal involuntary movements were evaluated: Daily activities Difficulties with eatin (none) Difficulties in dressin (none) Difficulties with hygiene activities: 0 (none) Difficulties with handwriting: Yes (slight) Difficulties with doing hobbies and other activities: 0 (none) Difficulties turning in bed: Yes (slight) Difficulties getting out of bed, car or chair: Yes (slight) Tremors/Gait/Balance Shaking or tremors: Yes (slight) Walking and balance problems: 0 (none) Number of falls in the Last Month: none Gait freezin (none) Autonomic/Pain Lightheadeness on standing: Yes (moderate) Urinary problems: 0 (none) Consti (more content not included)...[facility]09-12-[facility] History of Present illness Narrative* Alisson Sarabia APRN.DIRECT SUPPORT PROFESSIONAL - 06/25/2024 4:00 PM EDT [facility] - FO[facility] UP [facility]ALUATION [facility] [address] [facility] [address] [facility] [address] Dear Eloina Chi MD: I had the pleasure of seeing Mr. Parada for follow-up today. As you know he is a 79 year old right-handed male with a history of Parkinson's disease since 2021. He is seen with his . Subjective Previous Plan-03/17/2024 Visit: Parkinson's disease: Continue current medication schedule Continue exercising Orthostatic hypotension (drops in blood pressure) : As we discussed your blood pressure dropped today when you stood up. Please measure your blood pressure sitting and standing for one week at approximately the same timeevery day If it continues to drop (top number 20 points or more or bottom number 10 points or more)please let me know and also make sure your primary care provider is aware. We may reduce the propranolol if needed. Date/Time BP Sitting Heart Rate Sitting BP Standing Heart Rate Standing If you find it is dropping and not just today: Guidelines for the Treatment of orthostatic hypotension (low blood pressure upon standing) 1. Make all position changes from lying to sitting or sitting to standing, slowly. 2. Increase salt in your diet but ONLY IF THIS IS OK with your primary care provider, Otherwise, donot do this. 3. Avoid large meals which can cause low blood pressure during digestion. It is better to eat smaller meals more often than three large meals. 4. Avoid alcohol. 5. Perform lower extremity exercises to improve strength of the leg muscles. This will help preventblood from pooling in the legs when standing and walking. 6 Raise the head of the bed by 6 to 10 inches. The entire bed must be at an angle. Raising only thehead portion of the bed at waist level or using pillows will not be effective. 7 Drink 16oz of water quickly as soon as you wake up in the morning BEFORE you even get out of bed.This will result in an increased blood pressure within a short time of drinking the water. The effect will only last approximately up to one hour so continue staying well hydrated throughout the day. 8. Use custom fitted elastic support stockings. These will reduce a tendency for blood to pool in the legs when standing and may improve orthostatic intolerance. These have to be Thigh-high. Compression stockings that only reach the knees are not as helpful. 9. Avoid overly hot showers/baths, hot tubs and saunas as these can also lower your blood pressure Constipation: I have provided a comprehensive hand out from the Parkinson's [employer] on steps that can be taken to help with constipation as well as a recipe from the [facility]. 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 By Mail: [facility] Information Management, Ab7 Advance Directive Processing [id number] [place], [place] [phone] By In person at any [facility] location Please note: You can use the address or fax number regardless of which [facility] you utilize, and we will make sure it is filed appropriately. Interval History: His main concern is constipation. His said her main concern is his confusion in the morning for about an hour after he wakes up. He is also more shaky. Movement Disorders Medications Schedule - as of the start of the visit: Medications 6AM 1130AM 6PM 9PM Sinemet 25/100 CR 1 1 1 Propranolol 20 mg 1 1 Melatonin 5 mg 1 Parkinson's Motor Complications Medication benefit onset: unclear Medication duration: unclear Wearing off: no Painful off-state dystonia: (Comment: He gets some cramping in his calves when he first wakes up) Dyskinesia: no Prior Anti-Parkinson Therapies Carbidopa/Levodopa CR Questionnaires: In addition, the following areas that may be affected by abnormal involuntary movements were evaluated: Daily activities Difficulties with eatin (none) Difficulties in dressin (none) Difficulties with hygiene activities: 0 (none) Difficulties with handwriting: Yes (slight) Difficulties with doing hobbies and other activities: 0 (none) Difficulties turning in bed: Yes (slight) Difficulties getting out of bed, car or chair: Yes (slight) Tremors/Gait/Balance Shaking or tremors: Yes (slight) Walking and balance problems: 0 (none) Number of falls in the Last Month: none Gait freezin (none) Autonomic/Pain Lightheadeness on standing: Yes (moderate) Urinary problems: 0 (none) Constipation problems: Yes (moderate) He has seen a GI specialist. Pain and other sensations: Yes (slight) Speech/Swallowing Speech problems: Yes (mild) Drooling: Yes (moderate) He drools when he sleeps. Chewing and swallowing problems: Yes (slight) Sleep/Fatigue Sleep problems: Yes (mild) Daytime sleepiness: Yes (mild) Fatigue: Yes (slight) Mood/Behavior Depression: PHQ-9 Score: 5 usually representing mild (5-9) depression. Anxiety: PETRA-7 Total Score: 2 usually representing no significant (0-4) anxiety. Finally, the following table shows the patient's overall global physical and mental health using the PROMIS scale: PROMIS-10 Flowsheet Row Office Visit from 06/25/2024 in Neurology Office Visit from 03/17/2024 in Neurology Global Physical Health T Score 44.9 44.9 Global Mental Health T Score 56 53.3 0-10 Standard Pain Scale 4 3 *PROMIS-10 scoring scale: mean = 50, over 50 is above average, under 50 is below average In addition, the following Parkinson Lifestyle-associated features were evaluated: Conditions Prior to Dx: Depression: No Anxiety: No Melanoma: No Constipation: Yes Yelling: No Head Trauma: No Habits/exposures Prior to Dx Smoking: Yes (but quit) Caffeinated coffee (1-cup+): Yes (but quit) Caffeinated soda/tea (2 cups+): No Alcohol (1 bottle/shot/glass+): No Exercise (3x/wk+): Yes (and still do) Ibuprofen use (1x/wk+): No Pesticides: No Welding: No In addition, the following non-motor symptoms and palliative concerns were evaluated: Sleep/Fatigue: REM sleep behavior disorder: Yes He was thrashing and hitting but this has been better on melatoninand only happens occasionally. Restless Legs Syndrome: No Leg swelling: No Impaired sense of smell: Yes Cognition: Cognitive impairment: yes MoCA Cognitive assessment: His said he sometimes has problems with memory and multi-tasking orhas multiple steps to do for something. He gets confused with his med schedule so his helps him. Hallucinations and delusions: yes Since his eyelids were fixed he is no longer seeing shadows. This(seeing shadows)also happened when he wore glasses during the recovery from the surgery. Apathy: no Impulse control disorder: No Palliative Concerns: Caregiver burden: She gets stressed and frustrated. Spiritual concerns: No Advanced directives on file: No Palliative services: No Therapy and Exercise: Last PT Date: Fall 2022 Last OT Date: Fall [address] Date: Fall 2022 Exercises Regularly: Yes PD Health Maintenance Routine Eye Exams: No Routine Skin Exams: He just had a partial one. Vit B12: Have not found it yet if he has ALLERGIES No Known Allergies Current Outpatient Medications Medication Sig SENNA 8.6 mg tab Take 1 tablet by mouth every 12 hours. erythromycin (ROMYCIN) 5 mg/gram (0.5 %) ophthalmic ointment APPLY A SMALL AMOUNT OF OINTMENT ON INCISIONAL AREAS OF EYELID THREE TIMES DAILY DIRECTED ON SURGERY DAY. peg 3350-Electrolytes (GOLYTELY) 236-22.74-6.74 -5.86 gram suspension DRINK NEEDED FOR CONSTIPATION prucalopride (MOTEGRITY) 2 mg tab tablet Take 2 mg by mouth once daily. levothyroxine (SYNTHROID) 50 mcg tablet Take 1 tablet by mouth every afternoon. lactulose 10 gram/15 mL solution Take 30 mL by mouth as needed. omeprazole (PRILOSEC) 40 mg capsule Take 1 capsule by mouth once daily. tamsulosin (FLOMAX) 0.4 mg Take 1 capsule by mouth every 12 hours. OTC NUTRITIONAL SUPPLEMENT Take 1 tablet by mouth once daily. Vitamin C, Vitamin B Complex, VitaminB-12, and Calcium. propranolol (INDERAL) 20 mg tablet Take 1 tablet by mouth every 12 hours. carbidopa-levodopa CR (SINEMET CR) 25-100 mg per tablet Take 1 tablet by mouth four times daily. At6am, 12pm, 6pm, and 12am No current facility-administered medications for this visit. Objective Vital Signs: BP 105/67 (BP Site: Left Arm, BP Position: Standing, BP Cuff Size: Regular Adult) Pulse 83 Ht 172 cm (5' 7.72) Wt 75.8 kg (167 lb 1.7 oz) SpO2 99% BMI 25.62 kg/m Above pressure is standing. Sitting prior to this one was 123/80 with HR of 82. Weight: 75.8 kg (167 lb 1.7 oz) Height: 172 cm (5' 7.72) No LMP for male patient. Body mass index is 25.62 kg/m . Movement Disorders Scales Performed: MDS-UPDRS Motor subscale condition of exam Medication Off/On/Naiive ON Time of UPDRS 1630 Time of Last Medication 1130 Last Medication Taken Sinemet 25/100 CR DBS Right N/A DBS Left N/A MDS-UPDRS Motor subscale scores Speech 2-Mild. Loss of modulation, diction, or volume, with a few words unclear, but the overall sentences easy to follow. Facial Expression 2-Mild. In addition to decreased eye-blink frequency, Masked facies present in the lower face as well, namely fewer movements around the mouth, such as less spontaneous smiling, butlips not parted. Finger Taps Right 0-Normal. No problems. ` Finger Taps Left 1-Slight. a) the regular rhythm is broken with one or two interruptions or hesitations of the tapping movement, b) slight slowing, c) the amplitude decrements near the end of the 10 taps. Hand Movements Right 0-Normal. No problem. Hand Movements Left 1-Slight. a) the regular rhythm is broken with one or two interruptions or hesitations of the movement, b) slight slowing, c) the amplitude decrements near the end of the task. Arm Movements Right 2-Mild. a) 3 to 5 interruptions during the movements, b) mild slowing, c) the amplitude decrements midway in the sequence. Arm Movements Left 2-Mild. a) 3 to 5 interruptions during the movements, b) mild slowing, c) the amplitude decrements midway in the sequence. Toe Taps Right 1-Slight. a) the regular rhythm is broken with one or two interruptions or hesitations of the tapping movement, b) slight slowing, c) the amplitude decrements near the end of the ten taps. Toe Taps Left 2-Mild. a) 3 to 5 interruptions during the tapping movements, b) mild slowing, c) theamplitude decrements midway in the task. Leg Agility Right 0-Normal. No problems. Leg Agility Left 1-Slight. a) the regular rhythm is broken with one or two interruptions or hesitations of the movement, b) slight slowing, c) the amplitude decrements near the end of the task. Arise From Chair 1-Slight. Arising is slower than normal, or may need more than one attempt, or mayneed to move forward in the chair to arise. No need to use the arms of the chair. Gait 1-Slight. Independent walking with minor gait impairment. Gait Freezing 0-Normal. No freezing. Posture Stability Posture 3-Moderate. Stooped posture, scoliosis or leaning to one side that cannot be corrected volitionally to a normal posture by the patient. Body Bradykinesia 2-Mild. Mild global slowness and poverty of spontaneous movements. Postural Tremor Hand Right 0-Normal. No tremor. Postural Tremor Hand Left 0-Normal. No tremor. Kinetic Tremor Right 0-Normal. No tremor. Kinetic Tremor Left 0-Normal. No tremor. Rest Tremor Amplitude Right Upper Extremity 0-Normal. No tremor. Rest Tremor Amplitude Left Upper Extremity 0-Normal. No tremor. Rest Tremor Amplitude Right Lower Extremity 0-Normal. No tremor. Rest Tremor Amplitude Left Lower Extremity 0-Normal. No tremor. Rest Tremor Amplitude Lip/Jaw 0-Normal. No tremor. Rest Tremor Constancy 0-Normal. No tremor. Assessment and Plan: Assessment Mr. Parada is a right-handed 79 year old year old male with Parkinson's disease with left side predominant symptoms responsive to levodopa. Overall, he is stable but is having some dizziness and drops in blood pressure. This may be relatedto the propranolol and I am wondering if this can be weaned down or off but this likely will need to be cleared with his primary care provider as I am not sure of the complete reason he is on this (tremor? cardiac?)and he may not be able to come off of it. One of the plans for today was to do a cognitive screening. When I brought this up, they indicated to me they had [facility] [employer] [facility] and needed to leave so next time they come in after he has a visit with Dr. Sarabia, the nurse can come in and set him up with the BACH. This could have potentially been done at home but I did not have an opportunity to discuss thisand whether they have the capability of doing this at home since they had to leave. I would also like some time to work on his orthostatic hypotension since he is experiencing a lot of dizziness and sometimes people also cannot think as clearly when they have orthostatic hypotension. The following are the current problems noted and addressed during this visit: Parkinson's disease without dyskinesia, with fluctuating manifestations (hcc) Orthostatic hypotension (primary encounter diagnosis) Plan 06/25/2024 Visit: Parkinson's disease: Continue current medication schedule except add one dose of Sinemet CR when you wake up at midnightto go to the bathroom to see if your morning starts off better in regard to your tremor, overall movement, and thinking Continue exercising Orthostatic hypotension (drops in blood pressure) : As we discussed your blood pressure continues to drop. Please make sure you are changing positions slowly and drinking plenty of water. Cognition: Since you had to leave early today, at your next office visit, a BACH will be done in the office after you see Dr. Sarabia. Updated Movement Disorders Medication Schedule: Medications 6AM 1130AM 6PM 9PM 12am (when you wake up) Sinemet 25/100 CR 1 1 1 1 Propranolol 20 mg 1 1 Melatonin 5 mg 1 Level of service : 85336 ( 30-39 min). Time spent 34 min on the day of service, which included preparing to see the patient, [id number] patient care, completing clinical documentation, obtaining and/or reviewing separately obtained history, performing a medically appropriate examination, counseling and educating the patient/family/caregiver, and ordering medications, tests, or procedures. Alisson Saarbia APRN.GARY documented [facility] this [facility] Instructions* Patient Instructions* Alisson Sarabia APRN.CNP - 03/17/2024 8:08 AM EDT Images from the original note were not included. It was a pleasure to see you today. We addressed the following diagnoses: Parkinson's disease without dyskinesia or fluctuating manifestations (hcc) (primary encounter diagnosis) Orthostatic hypotension Constipation, unspecified constipation type My recommendations are as follows: 03/17/2024 Visit: Parkinson's disease: Continue current medication schedule Continue exercising Orthostatic hypotension (drops in blood pressure) : As we discussed your blood pressure dropped today when you stood up. Please measure your blood pressure sitting and standing for one week at approximately the same timeevery day If it continues to drop (top number 20 points or more or bottom number 10 points or more)please let me know and also make sure your primary care provider is aware. We may reduce the propranolol if needed. Date/Time BP Sitting Heart Rate Sitting BP Standing Heart Rate Standing If you find it is dropping and not just today: Guidelines for the Treatment of orthostatic hypotension (low blood pressure upon standing) 1. Make all position changes from lying to sitting or sitting to standing, slowly. 2. Increase salt in your diet but ONLY IF THIS IS OK with your primary care provider, Otherwise, donot do this. 3. Avoid large meals which can cause low blood pressure during digestion. It is better to eat smaller meals more often than three large meals. 4. Avoid alcohol. 5. Perform lower extremity exercises to improve strength of the leg muscles. This will help preventblood from pooling in the legs when standing and walking. 6 Raise the head of the bed by 6 to 10 inches. The entire bed must be at an angle. Raising only thehead portion of the bed at waist level or using pillows will not be effective. 7 Drink 16oz of water quickly as soon as you wake up in the morning BEFORE you even get out of bed.This will result in an increased blood pressure within a short time of drinking the water. The effect will only last approximately up to one hour so continue staying well hydrated throughout the day. 8. Use custom fitted elastic support stockings. These will reduce a tendency for blood to pool in the legs when standing and may improve orthostatic intolerance. These have to be Thigh-high. Compression stockings that only reach the knees are not as helpful. 9. Avoid overly hot showers/baths, hot tubs and saunas as these can also lower your blood pressure Constipation: I have provided a comprehensive hand out from the Parkinson's [employer] on steps that can be taken to help with constipation as well as a recipe from the [facility]. 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 By Mail: [facility] Information Management, Ab7 Advance Directive Processing [id number] [place], [place] [phone] By In person at any [facility] location Please note: You can use the address or fax number regardless of which [facility] you utilize, and we will make sure it is filed appropriately. Movement Disorders Medication Schedule: Medications 6AM 1130AM 6PM 9PM Sinemet 25/100 CR 1 1 1 Propranolol 20 mg 1 1 Melatonin 5 mg 1 Return at or around: 06/17/24 If there are any concerns before your next visit, please call or you can send a message through [employer]. You can also now schedule and select appointments through [employer]. Alisson Sarabia APRN.DIRECT SUPPORT PROFESSIONAL Constipation and Other Gastrointestinal Problems in Parkinson's Disease As you know, Parkinson s disease (PD) affects many body systems, not just movement. This includes the autonomic nervous system -- that is, the part of the nervous system that controls automatic bodily functions such as heart rate, blood pressure, sweating, sexual function and both gastrointestinal and urinary function. These can be among the most serious and complex issues faced by people with PD. Constipation, cramping and bloating are all common among people with Parkinson s. These issues can be caused both by the disease itself and by the medications used to treat it. The good news is that there are steps that you can take to lessen its impact on your life. Stomach Problems Impaired ability to empty the contents of the stomach, called gastroparesis, is a potential complication of PD. This may produce a bloated sensation and cause you to feel full even if you have eaten very little. Sometimes nausea may develop. Failure of the stomach to empty in a timely fashion may also impair or delay the effectiveness of PD medications, especially levodopa. Levodopa is absorbed from the small intestine and cannot get to its destination if it is trapped in the stomach. Unfortunately, treatment of gastroparesis in PD has not been extensively studied, and there are not many treatment options. Domperidone is an effective medication, but it is not available in the [place]. FDA approved Duopa , a form of levodopa designed to be delivered directly into the small intestine, may be helpful for some people experiencing gastroparesis. New levodopa delivery methods that bypass the stomach might help in thefuture, such as a skin patch, supplemental treatment with DBS, sublingual, or subcutaneous agonists. Constipation Constipation means difficulty passing stools (bowel movement, feces), a decrease in the number of stools, or both. It is often accompanied by one or more of the following symptoms: No stool (bowel movement) for days Distention (bloating) of abdomen, cramping, a feeling of pressure in the lower abdomen Straining to eliminate Incomplete evacuation of stool Hard, pellet stools Constipation can be acute (sudden onset of short duration) or chronic (persisting for several weeksor longer). In PD, constipation is likely to be chronic. When constipation is severe, the stool stays in the colon and backs up , causing a condition called impaction. Most healthcare providers describe constipation as having less than three bowel movements a week and recommend treatment after three days without a bowel movement, but everyone is slightly different. The frequency of bowel movementsdepends on what you have been eating and drinking, and the unique functioning of your own body. If you are experiencing fewer than three bowel movements in a week or have any of the symptoms listed, talk to your healthcare provider. Why Do I Get Constipated? We are still learning about constipation in PD and why it happens. Here is what we know: Parkinson s Disease The same changes that occur in brain cells in Parkinson s disease may also occur in nerve cells in the spinal cord and the intestinal wall. These changes may slow down the muscles that push food through the intestines. Medications Medications used to treat PD -- in particular, the class called anticholinergics and the medication amantadine, used to treat dyskinesia -- are known for causing constipation. If you are on these medications, your healthcare provider may be able to reduce your dose or switch you to a different one.But for some people, the benefits of the medication outweigh the possibility of constipation. Decrease in Physical Activity Because people with Parkinson s disease experience difficulty with their movement, they often become less active. People with PD who increase their movement experience better overall functioning, which includes their digestive system. Decreased Water Intake Many people with Parkinson s disease limit their fluids to avoid making frequent trips to the bathroom. When a person drinks less liquid, the gut may not have the lubrication it needs to have a bowelmovement, which contributes to constipation. Genetic Predisposition It is possible to have a family predisposition to constipation. Ask family members what solutions work for them. Your body may respond to the same strategies. Individual Body Chemistry Genetics aside, you are unique. Pay attention to your body and what is normal for you. Preventing Constipation Will your constipation get better? It is possible, but it depends in part on your own efforts. Of course, your healthcare provider and the medications he or she recommends play an important role. Still, constipation may persist despite your doctor s recommendations. That s where you come in. It is critical to put a daily plan in place -- one that can even prevent constipation before it begins. This is called creating a bowel program - Here are some strategies: Drink a lot of fluid (i.e., at least eight 8-oz glasses, excluding caffeine and alcohol, which act as diuretics and can aggravate constipation). It can be especially helpful to drink warm liquids, such as flavored sparkling davidson or lemonade, on rising and with breakfast, as warm liquid and food start bowel activity. Eat meals at the same times each day. Increase your fiber (e.g., cooked dried beans or fruits and vegetables with edible skins). Eat more foods that create bulk (e.g., whole grains and vegetables). Minimize your intake of low fiber starchy foods (e.g., breads, cookies, cake) or avoid them completely. Starchy foods do a great job at plugging up the digestive system! Try to establish a relaxed, regular time of the day for bowel movements. (About 1/2 hour after a meal is best as there is normally greater bowel activity at this time.) However, it also will help to train yourself to honor the urge to have a bowel movement. It may not always occur first thing in the morning or only at home! Be aware that the natural position for evacuating the bowel is squatting. Raised toilet seat devices may aid mobility but are not ideal for bowel function. Try hiking your feet up on a small bench while sitting on the toilet. Exercise more. Walk, dance, ride bikes or swim. Living with PD Constipation and Other Gastrointestinal Problems in PD Keep in mind that what works for one person may not work for another. You are unique. Pay attentionto your body s individual habits and needs. The best way to do this is to keep an activity log or diary, like the Constipation Tracker on Page 8, where you can keep track of when you experience constipation. Record what else happened that day -- what you ate, if you exercised, when you took medications -- and look for patterns. This will help you figure out what triggers your constipation, how long it lasts, and what it responds to under varying circumstances. Then take steps to help prevent the constipation. It may take trial and error, but with time (can take weeks to months) and effort, you can begin to understand what works for you. Managing Constipation If you have tried the tips above but they did not work, what should you do next? The primary goals will be to manage your symptoms, avoid complications (such as impaction, hemorrhoids and a dependence on laxatives), and prevent future constipation. Treatments fall into two categories: egns-wkd-bteakck and prescription therapies. Remember: consult with your healthcare provider before deciding on how to treat your constipation. The best treatment for constipation will vary from person to person, taking into account a variety of factors, including: other medical condition(s), medications or allergies that impact your treatment, the cost of treatment, the type of treatment used, how often the tr eatment must be taken/done in a day and your own convenience and preference. Ksdv-pqq-Soxkani Products Ztqw-qzj-wnkayvh treatments for constipation can be purchased at your local pharmacy. There are several categories listed on the following pages, all of which work in different ways. They are offeredin a variety of forms including capsule, powder, granule, syrup, gum, tablet, liquid and wafer. The best choice for you will depend on personal preferences and how your body responds. Preferred products are those that mimic the way the body works normally, i.e., by increasing bulk, fluids or lubricants in the intestines. It is important to note that stimulating laxatives, enemas, suppositories and combination products create dependence and are considered a last option, and should be used only when all others have been exhausted. Here are some things to keep in mind before selecting any products to address your constipation Relatively mild laxatives may be used while establishing a bowel program, but they are NOT a replacement for diet and bulk formers. Use them sparingly while you continue with your program. All laxatives should be used with caution. They activate the bowel by chemical irritation. Long-term use may actually harm the bowel. The bowel can easily become dependent on enemas. We recommend that you use enemas only when nothingelse works. You may need to use suppositories while establishing a bowel program. If needed, use Glycerin dailyor every other day. DO NOT use Dulcolax , as it is habit- forming and irritates the bowel. The following are listed in order of ease of consumption, cost, volume of therapeutic dose, taste. See list of common side effects. Senna Teas (caffeine free) These teas are herbal products whose use dates back to physicians in the ninth century! Drink a cup with dinner or in the evening and you should experience gentle, overnight relief from constipation in PD. Use senna teas with caution if you have a heart condition and are using Lanoxin (digoxin) or a diuretic. It also comes as a capsule (Senna [place] Smooth Move ). ving with PD Constipation and Other Gastrointestinal Problems in PD Emollients (stool softeners) These work by allowing more fluid into the fecal material. They contain wetting agents that improvethe ability of water to mix with stool, which softens the stool. They do not stimulate bowel movements or increase bowel movement frequency. They make the stool softer and easier to pass. These can be used retirement but should not be used in combination with products containing mineral oil. Some people with PD find the stool is soft, but difficult to pass as the muscles in the lower abdomen may not be strong enough or the momentum is slowed due to the disease. Examples include docusate (Colace and Surfak ). Bulk Formers These work by creating bulk in the intestinal tract.Many types of fiber products bind with water inthe intestine, keeping the water in the intestine to soften the stool, while adding bulk/volume to it. They must be taken with at least eight ounces of water. Bulk formers produce results in 12 to 72hours and are safe for long-term use. Examples include guar gum (Benefiber ); inulin (FiberSure ); methylcellulose (Citrucel ); malt soup extract (Maltsupex ); polycarbophil (Fibercon ); psyllium (Konsyl ). Lubricants These work by lubricating the intestinal tract. They contain mineral oil, which coats the particlesof stool, making it softer. Mineral oil does not stimulate a bowel movement or increase bowel movement frequency. Like emollients, it makes the stool easier to pass. They should only be used for short periods of time or periodically, as the oil can absorb some vitamins. They should not be used when taking warfarin (Coumadin ). An example is mineral oil (Fleet ). When purchasing, be sure to purchase just mineral oil, without any additives. Os motic Laxatives These work by drawing fluids into the intestinal tract. They are indigestible, nonabsorbable compounds that assist in retaining water in the colon, thereby softening the stool. Osmotic laxatives produce a bowel movement within one to three days. They may cause gas initially, but this usually resolves. Osmotic laxatives are safe for long-term use. Diabetics need to be especially careful in their choice of an osmotic laxative as large sugar molecules (e.g. sorbitol) are sometimes used. Examples include lactulose (Kristalose ); polyethylene glycol 3350 (MiraLax ); polyethylene glycol (GlycoLax ); sorbitol. Saline Laxatives These contain magnesium, sulfate, phosphate or citrate. They cause a softening of the stool by retaining water in the colon. They generally work within several hours. In general, they should not be used on a regular basis as they can cause dehydration and electrolyte problems. People with kidney disease, congestive heart failure, or those who are advised by their healthcare provider to control salt and water intake should not take saline laxatives. For mild results, examples include magnesium hydroxide (Milk of Magnesia ), sodium biphosphate and sodium phosphate (Fleet , Phospho-Soda , Visicol ). For strong results, examples include magnesium sulfate (Epsom salt). Stimulant Laxatives (Not for long-term use) These should be used sparingly with PD and only after other remedies have failed. Among the xxxw-cwj-ciqztkb laxatives, they are most likely to cause diarrhea and cramping. Chronic use can lead to colon damage. They work by causing the muscles of the small intestine and colon to propel their contents more rapidly. Some stimulant laxatives increase the absorption of water in the small intestine. Examples include bisacodyl (Dulcolax , Correctol ); castor oil; casanthranol; cascara (Nature s Remedy ) senna. Enemas Enemas stimulate the colon to contract and eliminate stool. They are useful in PD when there is impaction. In most cases, routine use should be avoided as they affect the fluid and electrolyte balance in the body. Soap suds enemas, commonly used in the past, should not be used as they can damage the rectum. Examples of common enema preparations include docusate sodium (Colace ), saline enema, microenema, tap water enema, mineral oil enemas. Suppositories A suppository is a wax-like form which is lubricated and inserted directly into the rectum as high as the finger can put it. Suppositories provide rectal stimulation to empty the bowel. Stool must bepresent in the rectum for suppositories to be effective. Suppositories must make contact with the inside wall of the rectum to work. They should be refrigerated until used or they can melt. Glycerin suppositories provide lubrication, while bisacodyl suppositories contain the stimulant laxative bisacodyl. Examples include bisacodyl (Dulcolax ) and glycerin. Combination Products These products combine two or three of thepreviously mentioned ingredients and stimulate bodily andintestinal functions. They can be convenient and effective. Those containing artificial stimulants should not be used in most long-term situations. Examples includecasanthranol (Sof-Lax Overnight ); docusate (Keyana- Colace , Senokot ); glycerin; senna; senna and glycerin (Mooney s Laxative ); and senna and psyllium (Perdiem ). Common Side Effects of Jhjv-ird-Wgqjyho Products for Constipation Emollient (Stool Softeners) Skin rash Stomach and/or intestinal cramping Bulk Forming Skin rash or itching Difficulty swallowing Intestinal blockage Difficulty breathing Lubricant Skin irritation surrounding rectal area Aspiration (medication sucked into lungs) Os motic Bloating Cramping Gas Increased thirst Nausea Saline Confusion Dizziness or lightheadedness Irregular heartbeat Muscle cramps Unusual tiredness or weakness Stimulants Belching Cramping Diarrhea Nausea Confusion Irregular heartbeat Muscle cramps Discoloration of urine (for cascara and/or senna only), e.g. pink to red, red to ameya, red to brownish color Skin rash Unusual tiredness or weakness Note: side effects very from person to person. Please consult your healthcare provider if you have concerns about any side effects listed. Prescription Products When zzud-rwe-sdxbhzi remedies fail, your healthcare provider may recommend prescription products to treat constipation. Right now, there are two remedies approved by the [place]. Food and Drug Administration (FDA). They areoften available by generic name or trade name (the trade name product is generally more expensive). Lubiprostone (Amitiza): works by increasing stool water content. Side effects include headache, nausea, diarrhea, abdominal pain and vomiting. Linaclotide (Linzess): increases bowel movement frequency. Its most common side effect is diarrhea. Living with PD Constipation and Other Gastrointestinal Problems in PD What s Right for Me? Your objective is to be as comfortable as possible. Know What to Avoid Impaction (i.e., solid bulk of stool in the rectum that must be manually removed). Hemorrhoids (distention of veins in area of anus). Chronic dependence on laxatives. Complications from other diseases you have that can be worsened by treatments for constipation. Know Your Normal Habits Assess your normal by logging your elimination habits versus your dietary intake, the fluids you consume and exercise for one normal week. Note any changes in your bowel movements early, so you can intervene sooner rather than later (consult your healthcare provider as appropriate). Select the Right Management Plan Consult your healthcare provider. Discuss a trial and error process that considers your medical condition(s), all the drugs you take, and your preferences (form in which taken, frequency/time of administration, taste, effectiveness, etc.). List of Oral Laxatives This list is incomplete, but will help to familiarize you with some products on the market. The list is in alphabetical order with no preference to one brand over another. Brand Name Category Non-Stimulation Stimulating A-3 Revised Combination X Alocass Stimulant X Bisacodyl (Dulcolax ) Stimulant X [place]ona Oil Stimulant X Cellulose (Unifiber ) Bulk X Dehydrocholic Acid (Cholan-HMB ) Stimulant X Docusate Sodium (Colace ) Emollient X Docusate and Senna (Doc-Q-Lax ) Stimulant X Docusate (Docucal ) Emollient X Docusate (Surfak ) Emollient X Fleet Mineral Oil Lubricant X Guar Gum (Benefiber ) Bulk X Lactulose (Kristalose ) Osmotic X Magnesium Citrate (Citrate Of Magnesia) Saline X Magnesium Hydroxide (Wolff Milk of Magnesia) Saline X Magnesium Supplement (Mag-Gel 600 ) Stimulant X Methylcellulose (Citrucel ) Bulk X Phospho-Soda (Fleet Phospho-Soda) Saline X Polyethylene Glycol (GaviLAX ) Osmotic X Polyethylene Glycol (GaviLyte-N with Flavor Pack) Osmotic X Polyethylene Glycol (GlycoLax ) Osmotic X Polycarbophil (Fibercon ) Bulk X Polyethylene Glycol (NuLYTELY ) Combination X Psyllium (Metamucil ) Bulk X [employer] Senna Stimulant X Senna (Black-Draught ) Stimulant X Senna and Docusate (Senna-S) Stimulant X Senna and Docusate (Senokot ) Stimulant X Adapted from: [facility] Website, accessed February 07, 2016, [email or web address]/druginformation/ [email or web address] Special Precautions For your safety, consult your healthcare provider before taking any products. Of particular concernshould be any of the following: Over-using laxatives could create dependence. Watch for: Signs and symptoms of appendicitis, which could include fever, abdominal pain, loss of appetite. Rectal bleeding from unknown cause. Intestinal blockage. Be careful if you have any of these conditions: Colostomy: potential for diarrhea when bag fills quickly. Ileostomy: potential for diarrhea when bag fills quickly. Type 2 diabetes: some laxatives are high in sugar. Heart disease: straining to eliminate stool can strain the heart, and it may not be able to compensate. High blood pressure: some laxatives are high in sodium. Kidney disease: some laxatives have magnesium and potassium in them. Swallowing difficulty: of concern would be aspiration of the laxative into the lungs causing pneumonia or blockage of the esophagus. Living with PD can be challenging. Motor and non-motor symptoms impact daily life, but there are many things a patient can do to lessen this impact. Daily attention to bowel function is important to feeling one s best and to avoid serious complications such as impaction. If you need further guidance, please contact your health care provider. Contributing authors: Salvador Tafoya, Ph.D., R.N., and Danna Teran.S.N., C.R.N.P. Constipation Tracker Day/Date Time Food(s) Eaten Activities Emotional Status Stool Description Feel free to photocopy this page and use it throughout the year to track your symptoms and share with your doctor. This is a patient education material provided by the Parkinson s [employer]. For more information and resources see https://www.parkinson.org/. [facility] is a Center of Excellence for the Parkinson s [facility]. [facility] History of Present illness Narrative* Alisson Sarabia APRN.GARY - 03/17/2024 8:00 AM EDT [facility] - FOLLOW UP EVALUATION I had the pleasure of seeing Mr. Parada for follow-up today. He is a 79 year old right-handed malewith a history of Parkinson's disease since 2021. He is seen with his . 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 Patient's perception of importance for healthcare provider to let them know of research trials for which they may be eligible? Somewhat important Interval History: He was in the ED for severe constipation as he had gone six days without going and was having pain.He is still having trouble. He is on Linzess and has drank some magnesium citrate and in the hospital they gave him Golytely. He does not have any other Parkinson's disease related concerns. Movement Disorders Medications Schedule - as of the start of the visit: Medications 6AM 1130AM 6PM 9PM Sinemet 25/100 CR 1 1 1 Propranolol 20 mg 1 1 Melatonin 5 mg 1-2 Parkinson's Motor Complications Medication benefit onset: unclear Medication duration: unclear Wearing off: no Painful off-state dystonia: (Comment: He gets some cramping in his calves when he first wakes up) Dyskinesia: no Prior Anti-Parkinson Therapies Carbidopa/Levodopa CR Questionnaires: In addition, the following areas that may be affected by abnormal involuntary movements were evaluated: Daily activities Difficulties with eatin (none) Difficulties in dressing: Yes (slight) Difficulties with hygiene activities: 0 (none) Difficulties with handwriting: Yes (slight) Difficulties with doing hobbies and other activities: Yes (slight) Difficulties turning in bed: Yes (slight) Difficulties getting out of bed, car or chair: Yes (slight) Tremors/Gait/Balance Shaking or tremors: Yes (slight) Walking and balance problems: 0 (none) Number of falls in the Last Month: none Gait freezin (none) Autonomic/Pain Lightheadeness on standin (none) Urinary problems: Yes (slight) Constipation problems: Yes (severe) Pain and other sensations: Yes (moderate) This is related to the constipation. Speech/Swallowing Speech problems: Yes (slight) Drooling: Yes (mild) Chewing and swallowing problems: 0 (none) Sleep/Fatigue Sleep problems: Yes (slight) He sometimes sleeps well and other times hardly at all. Daytime sleepiness: Yes (mild) Fatigue: Yes (slight) Mood/Behavior Depression: PHQ-9 Score: 2 usually representing no significant (0-4) depression. Anxiety: EPTRA-7 Total Score: 1 usually representing no significant (0-4) anxiety. His said he only seems anxious about his constipation. Finally, the following table shows the patient's overall global physical and mental health using the PROMIS scale: PROMIS-10 Flowsheet Row Office Visit from 03/17/2024 in Neurology Office Visit from 12/19/2023 in Neurology Global Physical Health T Score 44.9 47.7 Global Mental Health T Score 53.3 50.8 0-10 Standard Pain Scale 3 4 *PROMIS-10 scoring scale: mean = 50, over 50 is above average, under 50 is below average In addition, the following non-motor symptoms and palliative concerns were evaluated: Sleep/Fatigue: REM sleep behavior disorder: Yes He was thrashing and hitting but this has been better on melatonin. He does get up frequently to go to the bathroom at night. Restless Legs Syndrome: No Leg swelling: No Impaired sense of smell: Yes Cognition: Cognitive impairment: yes Slight MoCA Cognitive assessment: His said he sometimes has problems with memory and multi-tasking orhas multiple steps to do for something. He gets confused with his med schedule so his helps him. Hallucinations and delusions: yes He sees motion in his peripherial vision, mostly out of the righteye. Apathy: no Impulse control disorder: No Palliative Concerns: Caregiver burden: She gets stressed and frustrated. Spiritual concerns: No Advanced directives on file: No Palliative services: No Therapy and Exercise: Last PT Date: Fall 2022 Last OT Date: Fall [address] Date: Fall 2022 Exercises Regularly: Yes ALLERGIES No Known Allergies Current Outpatient Medications Medication Sig levothyroxine (SYNTHROID) 50 mcg tablet Take 1 tablet by mouth every afternoon. amoxicillin (AMOXIL) 500 mg capsule Take 500 mg by mouth as needed. For Dental Procedures lactulose 10 gram/15 mL solution Take 30 mL by mouth as needed. LINZESS 145 mcg capsule Take 1 capsule by mouth every afternoon. omeprazole (PRILOSEC) 40 mg capsule Take 1 capsule by mouth once daily. tamsulosin (FLOMAX) 0.4 mg Take 1 capsule by mouth every 12 hours. OTC NUTRITIONAL SUPPLEMENT Take 1 tablet by mouth once daily. Vitamin C, Vitamin B Complex, VitaminB-12, and Calcium. carbidopa-levodopa CR (SINEMET CR) 25-100 mg per tablet Take 1 tablet by mouth three times a day. propranolol (INDERAL) 20 mg tablet Take 1 tablet by mouth every 12 hours. No current facility-administered medications for this visit. Objective Vital Signs: Ht 172.7 cm (5' 8) Wt 79.4 kg (175 lb 0.7 oz) SpO2 98% BMI 26.62 kg/m Orthostatic Vitals: Sitting: BP 121/73 Pulse 69 Standing: BP 99/65 Pulse 69 No LMP for male patient. Body mass index is 26.62 kg/m . Movement Disorders Scales Performed: MDS-UPDRS Motor subscale condition of exam Medication Off/On/Naiive ON Time of UPDRS 0828 Time of Last Medication 0600 Last Medication Taken Sinemet 25/100 CR DBS Right N/A DBS Left N/A MDS-UPDRS Motor subscale scores Speech 2-Mild. Loss of modulation, diction, or volume, with a few words unclear, but the overall sentences easy to follow. Facial Expression 2-Mild. In addition to decreased eye-blink frequency, Masked facies present in the lower face as well, namely fewer movements around the mouth, such as less spontaneous smiling, butlips not parted. Rigidity Neck 2-Mild. Rigidity detected without the activation maneuver, but full range of motion is easily achieved. Rigidity Right Upper Extremity 0-Normal. No rigidity. Rigidity Left Upper Extremity 1-Slight. Rigidity only detected with activation maneuver. Rigidity Right Lower Extremity 0-Normal. No rigidity. Rigidity Left Lower Extremity 1-Slight. Rigidity only detected with activation maneuver. Finger Taps Right 0-Normal. No problems. ` Finger Taps Left 1-Slight. a) the regular rhythm is broken with one or two interruptions or hesitations of the tapping movement, b) slight slowing, c) the amplitude decrements near the end of the 10 taps. Hand Movements Right 0-Normal. No problem. Hand Movements Left 1-Slight. a) the regular rhythm is broken with one or two interruptions or hesitations of the movement, b) slight slowing, c) the amplitude decrements near the end of the task. Arm Movements Right 1-Slight. a) the regular rhythm is broken with one or two interruptions or hesitations of the movement, b) slight slowing, c) the amplitude decrements near the end of the sequence. Arm Movements Left 2-Mild. a) 3 to 5 interruptions during the movements, b) mild slowing, c) the amplitude decrements midway in the sequence. Toe Taps Right 0-Normal. No problem. Toe Taps Left 1-Slight. a) the regular rhythm is broken with one or two interruptions or hesitations of the tapping movement, b) slight slowing, c) the amplitude decrements near the end of the ten taps. Leg Agility Right 1-Slight. a) the regular rhythm is broken with one or two interruptions or hesitations of the movement, b) slight slowing, c) the amplitude decrements near the end of the task. Leg Agility Left 2-Mild. a) 3 to 5 interruptions during the movements, b) mild slowness, c) the amplitude decrements midway in the task. Arise From Chair 1-Slight. Arising is slower than normal, or may need more than one attempt, or mayneed to move forward in the chair to arise. No need to use the arms of the chair. Gait 1-Slight. Independent walking with minor gait impairment. Gait Freezing 0-Normal. No freezing. Posture Stability 0-Normal. No problems: recovers with one or two steps. (deferred) Posture 2-Mild. Definite flexion, scoliosis or leaning to one side, but patient can correct postureto normal posture when asked to do so. Body Bradykinesia 2-Mild. Mild global slowness and poverty of spontaneous movements. Postural Tremor Hand Right 0-Normal. No tremor. Postural Tremor Hand Left 0-Normal. No tremor. Kinetic Tremor Right 0-Normal. No tremor. Kinetic Tremor Left 0-Normal. No tremor. Rest Tremor Amplitude Right Upper Extremity 0-Normal. No tremor. Rest Tremor Amplitude Left Upper Extremity 0-Normal. No tremor. Rest Tremor Amplitude Right Lower Extremity 0-Normal. No tremor. Rest Tremor Amplitude Left Lower Extremity 0-Normal. No tremor. Rest Tremor Amplitude Lip/Jaw 0-Normal. No tremor. Rest Tremor Constancy 0-Normal. No tremor. MDS-UPDRS Motor subscale totals Left Total 9 Right Total 2 Midline Total 12 Tremor Total / 10 0 PIGD Total / 3 1 Overall Total 23 % Change Compared to Last Filed Total Assessment and Plan: Assessment Mr. Parada is a right-handed 79 year old year old male with Parkinson's disease with left side predominant symptoms and some tremor who appears to respond to levodopa. His main concern is severe constipation and he was recently in the ED for this. He is working with a specialist on medication and I provided him with the Parkinson's foundation handout on constipation as well as a recipe from the [facility] that often works as well in combination with other strategies. I was concerned today with a drop in his blood pressure but I am not sure if this was a fluke as this is only his second time here and it did not happen last time. I asked him and hiswife to monitor it at home and if it continues to be a problem, to let his primary care provider know but I provided him with some steps to take as well. We will not make any changes to his Sinemet for his motor symptoms as this seems to be stable. In the future, when he is feeling better, I will do a MoCA. The following are the current problems noted and addressed during this visit: Parkinson's disease without dyskinesia or fluctuating manifestations (hcc) (primary encounter diagnosis) Orthostatic hypotension Constipation, unspecified constipation type Plan 03/17/2024 Visit: Parkinson's disease: Continue current medication schedule Continue exercising Orthostatic hypotension (drops in blood pressure) : As we discussed your blood pressure dropped today when you stood up. Please measure your blood pressure sitting and standing for one week at approximately the same timeevery day If it continues to drop (top number 20 points or more or bottom number 10 points or more)please let me know and also make sure your primary care provider is aware. We may reduce the propranolol if needed. Date/Time BP Sitting Heart Rate Sitting BP Standing Heart Rate Standing If you find it is dropping and not just today: Guidelines for the Treatment of orthostatic hypotension (low blood pressure upon standing) 1. Make all position changes from lying to sitting or sitting to standing, slowly. 2. Increase salt in your diet but ONLY IF THIS IS OK with your primary care provider, Otherwise, donot do this. 3. Avoid large meals which can cause low blood pressure during digestion. It is better to eat smaller meals more often than three large meals. 4. Avoid alcohol. 5. Perform lower extremity exercises to improve strength of the leg muscles. This will help preventblood from pooling in the legs when standing and walking. 6 Raise the head of the bed by 6 to 10 inches. The entire bed must be at an angle. Raising only thehead portion of the bed at waist level or using pillows will not be effective. 7 Drink 16oz of water quickly as soon as you wake up in the morning BEFORE you even get out of bed.This will result in an increased blood pressure within a short time of drinking the water. The effect will only last approximately up to one hour so continue staying well hydrated throughout the day. 8. Use custom fitted elastic support stockings. These will reduce a tendency for blood to pool in the legs when standing and may improve orthostatic intolerance. These have to be Thigh-high. Compression stockings that only reach the knees are not as helpful. 9. Avoid overly hot showers/baths, hot tubs and saunas as these can also lower your blood pressure Constipation: I have provided a comprehensive hand out from the Parkinson's Foundation on steps that can be taken to help with constipation as well as a recipe from the [facility]. 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 By Mail: [facility] Information Management, [employer] Advance Directive Processing [id number] [place], [place] [address] By In person at any [facility] location Please note: You can use the address or fax number regardless of which [facility] you utilize, and we will make sure it is filed appropriately. Updated Movement Disorders Medication Schedule: Medications 6AM 1130AM 6PM 9PM Sinemet 25/100 CR 1 1 1 Propranolol 20 mg 1 1 Melatonin 5 mg 1 Return at or around: 06/17/24 Level of service : 81045 (40-54 min). Time spent 41 min on the day of service, which included preparing to see the patient, [id number] patient care, completing clinical documentation, obtaining and/or reviewing separately obtained history, performing a medically appropriate examination, counseling and educating the patient/family/caregiver, and ordering medications, tests, or procedures. Alisson Sarabia APRN.DIRECT SUPPORT PROFESSIONAL documented in this encounter[facility] Instructions* Patient Instructions* Joseph Sarabia MD - 12/19/2023 2:39 PM EST It was a pleasure to see you today. 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 Movement Disorders Medication Schedule: Medications 7AM 1130AM 7PM 9PM Sinemet 25/100 CR 1 1 1 Propranolol 20 mg 1 1 Melatonin 5 mg 1-2 Return at or around: 06/20/24 If there are any concerns before your next visit, please call or you can send a message through [employer]. You can also now schedule and select appointments through [employer]. Joseph Sarabia MD documented in this encounterOhio[facility]24 History of Present illness Narrative* Joseph Sarabia MD - 12/19/2023 2:15 PM EST [facility] - NEW PATIENT EVALUATION I had the pleasure of evaluating Mr. Parada in our clinic today. He is a 78 year old right-handed male who presents for evaluation of Parkinson's disease since 2021. Subjective HISTORY OF PRESENT ILLNESS: Initial HPI He just moved from [place], [place]. He started with shuffling gait and tremor in left hand and he was stated on on propranol which helped some with the tremor. He was better when the carbidopa/levodopa. He did some [facility] PT in [place] which has helped. He has not had side effects. He has had REM Sleep Behavior Disorder for a few years without medications. Movement Disorders Medications Schedule - as of the start of the visit: Medications 7AM 1130AM 7PM 9PM Sinemet CR 25/100 1 1 1 Propranolol 20 mg 1 1 Parkinson's Motor Complications Medication benefit onset: unclear Medication duration: unclear Prior Anti-Parkinson Therapies Carbidopa/Levodopa CR Questionnaires In addition, the following areas that may be affected by abnormal involuntary movements were evaluated: Daily activities Difficulties with eating: Yes (slight) Difficulties in dressin (none) Difficulties with hygiene activities: 0 (none) Difficulties with handwriting: Yes (slight) Difficulties with doing hobbies and other activities: 0 (none) Difficulties turning in bed: Yes (slight) Difficulties getting out of bed, car or chair: Yes (slight) Tremors/Gait/Balance Shaking or tremors: Yes (slight) Walking and balance problems: Yes (slight) Number of falls in the Last Month: 0 Gait freezin (none) Autonomic/Pain Lightheadeness on standing: Yes (mild) Urinary problems: 0 (none) Constipation problems: Yes (mild) Ongoing issue Pain and other sensations: Yes (slight) Speech/Swallowing Speech problems: Yes (slight) Drooling: Yes (mild) Chewing and swallowing problems: 0 (none) Sleep/Fatigue Sleep problems: Yes (mild) Daytime sleepiness: Yes (mild) Fatigue: Yes (slight) Mood/Behavior Depression: PHQ-9 Score: 2 usually representing no significant (0-4) depression. Anxiety: PETRA-7 Total Score: 0 usually representing no significant (0-4) anxiety. Finally, the following table shows the patient's overall global physical and mental health using the PROMIS scale: PROMIS-10 Flowsheet Row Office Visit from 12/19/2023 in Neurology Global Physical Health T Score 47.7 Global Mental Health T Score 50.8 0-10 Standard Pain Scale 4 *PROMIS-10 scoring scale: mean = 50, over 50 is above average, under 50 is below average In addition, the following non-motor symptoms and palliative concerns were evaluated: Sleep/Fatigue: REM sleep behavior disorder: Yes Thrashes and hits Restless Legs Syndrome: No Leg swelling: No Impaired sense of smell: Yes Cognition: Cognitive impairment: yes Slight MoCA Cognitive assessment: Hallucinations and delusions: yes Sees motion in his peripherial vision for 1 year Apathy: no Impulse control disorder: No Palliative Concerns: Caregiver burden: Spiritual concerns: Advanced directives on file: Palliative services: Therapy and Exercise: Last PT Date: Last OT Date: Last ST Date: Exercises Regularly: Yes ALLERGIES No Known Allergies Current Outpatient Medications Medication Sig amoxicillin (AMOXIL) 500 mg capsule Take 500 mg by mouth as needed. For Dental Procedures baclofen 10 mg tablet Take 1 tablet by mouth as directed. carbidopa-levodopa CR (SINEMET CR) 25-100 mg per tablet Take 1 tablet by mouth three times a day. lactulose 10 gram/15 mL solution Take 30 mL by mouth as needed. LINZESS 145 mcg capsule Take 1 capsule by mouth every afternoon. omeprazole (PRILOSEC) 40 mg capsule Take 1 capsule by mouth once daily. propranolol (INDERAL) 20 mg tablet Take 1 tablet by mouth every 12 hours. tamsulosin (FLOMAX) 0.4 mg Take 1 capsule by mouth every 12 hours. levothyroxine 50 mcg cap Take 50 mcg by mouth once daily. OTC NUTRITIONAL SUPPLEMENT Take 1 tablet by mouth once daily. Vitamin C, Vitamin B Complex, VitaminB-12, and Calcium. No current facility-administered medications for this visit. Past Medical and Surgical History: has no past medical history on file. has no past surgical history on file. Social History Tobacco Use Smoking status: Former Types: Cigarettes Quit date: 1970 Years since quittin.2 Smokeless tobacco: Never Family History: family history is not on file. Objective Vital Signs: Ht 172.7 cm (5' 8) Wt 82 kg (180 lb 12.4 oz) SpO2 97% BMI 27.49 kg/m Orthostatic Vitals: Sitting: BP 114/74 Pulse 82 Standing: BP 112/83 Pulse Weight: 82 kg (180 lb 12.4 oz) Height: 172.7 cm (5' 8) No LMP for male patient. Body mass index is 27.49 kg/m . General Neurological Examination: Neurological Exam Mental Status Awake, alert and oriented to person, place and time. Recent and remote memory are intact. Speech isnormal. Language is fluent with no aphasia. Cranial Nerves CN III, IV, : Extraocular movements intact bilaterally. CN II-XII grossly intact, except as otherwise noted. Motor Normal muscle bulk throughout. Normal muscle tone. The following abnormal movements were seen: Strength is 5/5 throughout all four extremities. He has left > right rigidity and bradykinesia. Sensory Light touch is normal in upper and lower extremities. Reflexes Right Left Brachioradialis 2+ 2+ Biceps 2+ 2+ Patellar 2+ 2+ Achilles 2+ 2+ Right Plantar: downgoing Left Plantar: downgoing Coordination [id number], rapid alternating movements and [id number] normal bilaterally without dysmetria. Gait Casual gait: Normal stance. Reduced stride length. Reduced right arm swing. Reduced left arm swing. Movement Disorders Scales Performed: MDS-UPDRS Motor subscale condition of exam Medication Off/On/Naiive Drug Naiive Time of UPDRS 1426 Time of Last Medication 1130 Last Medication Taken Sinemet 25/100 CR DBS Right N/A DBS Left N/A MDS-UPDRS Motor subscale scores Speech 2-Mild. Loss of modulation, diction, or volume, with a few words unclear, but the overall sentences easy to follow. Facial Expression 3-Moderate. Masked facies with lips parted some of the time when the mouth is at rest. Rigidity Neck 2-Mild. Rigidity detected without the activation maneuver, but full range of motion is easily achieved. Rigidity Right Upper Extremity 1-Slight. Rigidity only detected with activation maneuver. Rigidity Left Upper Extremity 2-Mild. Rigidity detected without the activation maneuver, but full range of motion is easily achieved. Rigidity Right Lower Extremity 1-Slight. Rigidity only detected with activation maneuver. Rigidity Left Lower Extremity 2-Mild. Rigidity detected without the activation maneuver, but full range of motion is easily achieved. Finger Taps Right 2-Mild. a) 3 to 5 interruptions during tapping, b) mild slowing, c) the amplitudedecrements midway in the 10-tap sequence. Finger Taps Left 2-Mild. a) 3 to 5 interruptions during tapping, b) mild slowing, c) the amplitude decrements midway in the 10-tap sequence. Hand Movements Right 1-Slight. a) the regular rhythm is broken with one or two interruptions or hesitations of the movement, b) slight slowing, c) the amplitude decrements near the end of the task. Hand Movements Left 2-Mild. a) 3 to 5 interruptions during the movements, b) mild slowing, c) the amplitude decrements midway in the task. Arm Movements Right 1-Slight. a) the regular rhythm is broken with one or two interruptions or hesitations of the movement, b) slight slowing, c) the amplitude decrements near the end of the sequence. Arm Movements Left 2-Mild. a) 3 to 5 interruptions during the movements, b) mild slowing, c) the amplitude decrements midway in the sequence. Toe Taps Right 1-Slight. a) the regular rhythm is broken with one or two interruptions or hesitations of the tapping movement, b) slight slowing, c) the amplitude decrements near the end of the ten taps. Toe Taps Left 2-Mild. a) 3 to 5 interruptions during the tapping movements, b) mild slowing, c) theamplitude decrements midway in the task. Leg Agility Right 1-Slight. a) the regular rhythm is broken with one or two interruptions or hesitations of the movement, b) slight slowing, c) the amplitude decrements near the end of the task. Leg Agility Left 2-Mild. a) 3 to 5 interruptions during the movements, b) mild slowness, c) the amplitude decrements midway in the task. Arise From Chair 1-Slight. Arising is slower than normal, or may need more than one attempt, or mayneed to move forward in the chair to arise. No need to use the arms of the chair. Gait 1-Slight. Independent walking with minor gait impairment. Gait Freezing 0-Normal. No freezing. Posture Stability 0-Normal. No problems: recovers with one or two steps. Posture 2-Mild. Definite flexion, scoliosis or leaning to one side, but patient can correct postureto normal posture when asked to do so. Body Bradykinesia 3-Moderate. Moderate global slowness and poverty of spontaneous movements. Postural Tremor Hand Right 0-Normal. No tremor. Postural Tremor Hand Left 0-Normal. No tremor. Kinetic Tremor Right 0-Normal. No tremor. Kinetic Tremor Left 1-Slight. Tremor is present but less than 1cm in amplitude. Rest Tremor Amplitude Right Upper Extremity 0-Normal. No tremor. Rest Tremor Amplitude Left Upper Extremity 0-Normal. No tremor. Rest Tremor Amplitude Right Lower Extremity 0-Normal. No tremor. Rest Tremor Amplitude Left Lower Extremity 0-Normal. No tremor. Rest Tremor Amplitude Lip/Jaw 0-Normal. No tremor. Rest Tremor Constancy 0-Normal. No tremor. MDS-UPDRS Motor subscale totals Left Total 15 Right Total 8 Midline Total 14 Tremor Total / 10 1 PIGD Total / 3 1 Overall Total 37 % Change Compared to Last Filed Total Assessment and Plan: Assessment Mr. Parada is a right-handed 78 year old year old male with Parkinson's disease with left side predominant symptoms and some tremor who appears to respond to levodopa. The following are the current problems noted and addressed during this visit: Parkinson's disease without dyskinesia, with fluctuating manifestations (hcc) (primary encounter diagnosis) Plan 12/19/2023 Visit: Parkinson's disease - Could dose the last Sinemet (carbidopa/levodopa) at 7PM ~ 5 hr interval REM Sleep Behavior Disorder - Try Melatonin 5-10 mg at bedtime Continue to exercise Mild hallucinations - will watch this. Patient's perception of importance for healthcare provider to let them know of research trials for which they may be eligible? Somewhat important Updated Movement Disorders Medication Schedule: Medications 7AM 1130AM 7PM 9PM Sinemet 25/100 CR 1 1 1 Propranolol 20 mg 1 1 Melatonin 5 mg 1-2 Thank you for allowing me to be part of the clinical care of this patient! I look forward to continued participation in the patient s care with you. Please do not hesitate to call with any questions. Sincerely, Joseph Sarabia MD [facility]* Diagnosis Onset Date Resolution Status Contusion of back wall of thorax [facility] Work Phone: Evaluation note* Diagnosis Parkinson's disease without dyskinesia, with fluctuating manifestations (HCC)- Primary [facility] Diagnosis Parkinson's disease without dyskinesia or fluctuating manifestations (HCC)- Primary Orthostatic hypotension Constipation, unspecified constipation type [facility] Diagnosis Orthostatic hypotension- Primary Parkinson's disease without dyskinesia, with fluctuating manifestations (HCC) [facility]* Diagnosis Constipation, unspecified constipation type- Primary Intestinal malabsorption, unspecified type [facility]* Diagnosis Parkinson's disease without dyskinesia or fluctuating manifestations (HCC)- Primary Cognitive and behavioral changes Other signs and symptoms involving cognition [facility] noteNo assessment information availableWFirelands [facility] Work Phone: evaluation note* Diagnosis Parkinson's disease without dyskinesia, with fluctuating manifestations (HCC)- Primary Orthostatic hypotension Sialorrhea Disturbance of salivary secretion documented in this encounter [facility]* Diagnosis Tonsillar mass Swelling, mass, or lump in head and neck [facility] Diagnosis Tonsillar mass- Primary Swelling, mass, or lump in head and neck 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) [facility] Diagnosis 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 Return with new or worsening symptoms.[facility] Work Phone: Reason for referral (narrative)No reason for referral information availableWFirelands [facility] Work Phone: Reason for visit Narrative* Diagnostic X-Ray (Routine) - Closed Specialty Diagnoses / Procedures Referred By Contac t Referred To Contact Radiology Diagnoses Tonsillar mass Procedures CT NEURO IMAGE IMPORT(JOHNATHAN) DOWNLOAD POWERSHARE IMAGES TO Reta Garces MD [address] [place] [address] Phone: tel: fax: [facility] [address] [place] [address] Phone: tel: Referral ID Status Reason Start Date Expiration Date Visits Re quested Visits Authorized [id number] Closed 05/14/2025 05/14/2026 1 1 [facility] Chief Complaint and Reason for Visit Chief Complaint LT SIDE BACK PAIN/PO ST FALL LAST SATURDAY XRAY Reason for Visit Contusion of back wa ll of thorax Chief Complaint Admit Date CAT BITE October 04, 2024 8:05am DYSHPAGIA/RX HERE December 23, 2024 9:3 7am fall, head injury December 26, 2024 5:1 3pm Reason for Visit Admit Date Cat bite October 04, 2024 8:05am Chief Complaint Admit Date CAT BITE October 04, 2024 8:05am DYSHPAGIA/RX HERE December 23, 2024 9:3 7am fall, head injury December 26, 2024 5:1 3pm PHARYNGITIS December 28, 2024 3:3 7pm Chief Complaint Admit Date DYSHPAGIA/RX HERE December 23, 2024 9:3 7am fall, head injury December 26, 2024 5:1 3pm PHARYNGITIS December 28, 2024 3:3 7pm PHARYNGITIS February 08, 2025 3:2 7pm ACUTE PHARYNGITIS March 01, 2025 3:51p m Chief Complaint Admit Date PHARYNGITIS February 08, 2025 3:2 7pm ACUTE PHARYNGITIS March 01, 2025 3:51p m Localized swelling, mass and lump, head May 03, 2025 12:38pm [facility]. RX HERE May 06, 2025 2:30 pm Chief Complaint Admit Date PHARYNGITIS February 08, 2025 3:2 7pm ACUTE PHARYNGITIS March 01, 2025 3:51p m Localized swelling, mass and lump, head May 03, 2025 12:38pm [facility]. RX HERE May 25, 2025 1: 00pm Chief Complaint Admit Date ACUTE PHARYNGITIS March 01, 2025 3:51p m Localized swelling, mass and lump, head May 03, 2025 12:38pm [facility]. RX HERE May 31, 2025 3: 30pm Amb Documentation June 10, 2025 10 :08am Reason for Referral Specialty Diagnoses / Procedures Referred By Americo melton Referred To Contact [facility] Diagnoses Parkinson's disease without dyskinesia, with fluctuating manifestations (HCC) Procedures CONSULT TO PHYSICAL THERAPY PHYSICAL THERAPY EVALUATION HIGH COMPLEX 45 MINS Joseph Sarabia MD [address] [place] [address] [facility] [address] [address] Referral ID Status Reason Start Date Expiration Date Visits Requested Visits Authorized [id number] Pending Review Auto-Generat ed Referral 12/19/2023 12/18/2024 1 1 Specialty Diagnoses / Procedures Referred By Americo melton Referred To Contact Diagnoses Parkinson's disease without dyskinesia, with fluctuating manifestations (HCC) Procedures PROVIDER ORDERED FOLLOW UP OFFICE/OUTPATIENT NEW HIGH MDM 60 MINUTES Joseph Sarabia MD [address] [place] [address] Referral ID Status Reason Start Date Expiration Date Visits Requested Visits Authorized [id number] Authorized PCP Requested Referral 12/19/2023 03/18/2024 1 1 Specialty Diagnoses / Procedures Referred By Contac t Referred To Contact Diagnoses Parkinson's disease without dyskinesia or fluctuating manifestations (HCC) Procedures PROVIDER ORDERED FOLLOW UP OFFICE/OUTPATIENT NEW HIGH MDM 60 MINUTES Alisson Sarabia APRN.CNP [address] [address] Referral ID Status Reason Start Date Expiration Date Visits Requested Visits Authorized [id number] Authorized PCP Requested Referral 06/17/2024 03/17/2025 1 1 Specialty Diagnoses / Procedures Referred By Contac t Referred To Contact Diagnoses Parkinson's disease without dyskinesia or fluctuating manifestations (HCC) Procedures PROVIDER ORDERED FOLLOW UP OFFICE/OUTPATIENT NEW HIGH MDM 60 MINUTES Joseph Sarabia MD [address] [email or web address] [address] Referral ID Status Reason Start Date Expiration Date Visits Requested Visits Authorized [id number] Authorized PCP Requested Referral 03/22/2025 09/21/2025 1 1 Advance Directives No Advanced Directives Records Found Advance Directive Response Recorded Date/ Time Living Will No December 26, 2024 5:19pm Power of Lacquer Shader Yes December 26 5:19pm Name of Medical Power of Lacquer Shader Janel Parada December 26, 2024 5:19pm Advance Directive Response Recorded Date/ Time Living Will No December 26, 2024 5:19pm Do you have a Healthcare Power of Lacquer Shader? Yes December 26, 2024 5:19pm Name of Medical Power of Lacquer Shader Janel Parada December 26, 2024 5:19pm Summary Purpose Family History No Family History Records FoundNo Family History Records FoundNo Family History Records Found Additional Source Comments Care Teams (unrecognized sec tion and content) Team Status: Active Member Role Status Dates Eloina Chi MD Primary Care Provider Active Team Status: Active Member Role Status Dates Eloina Chi MD Primary Care Provider Active St art: December 23, 2024 Eloina Chi MD Attending Provider Active Start : December 23, 2024 Eloina Chi MD Referring Provider Active Start : December 23, 2024 Team Status: Inactive Member Role Status Slime Chi MD Primary Care Provider Active St art: December 26, 2024 End: December 26, 2024 Carlos Dennis MD Attending Provider Active Star t: December 26, 2024 End: December 26, 2024 Carlos Dennis MD Emergency Provider Active Star t: December 26, 2024 End: December 26, 2024 Team Status: Inactive Member Role Status Slime Chi MD Primary Care Provider Active St art: December 28, 2024 End: December 28, 2024 Ariel Duque , PA Attending Provider Active Star t: December 28, 2024 End: December 28, 2024 Ariel Duque PA Referring Provider Active Star t: December 28, 2024 End: December 28, 2024 Team Status: Inactive Member Role Status Slime Chi MD Primary Care Provider Active St art: February 08, 2025 End: February 08, 2025 Arielfely Duque , PA Attending Provider Active Star t: February 08, 2025 End: February 08, 2025 Arielfely Duque , PA Referring Provider Active Star t: February 08, 2025 End: February 08, 2025 Team Status: Inactive Member Role Status Slime Chi MD Primary Care Provider Active St art: March 01, 2025 End: March 01, 2025 Arielfely Duque , PA Attending Provider Active Star t: March 01, 2025 End: March 01, 2025 Arielfely Duque , PA Referring Provider Active Star t: March 01, 2025 End: March 01, 2025 Team Status: Inactive Member Role Status Slime Chi MD Primary Care Provider, Referring Prov ider Active Steven GARCIAS, PA Attending Provider Active Team Status: Inactive Member Role Status Slime Chi MD Primary Care Provider Active Dr. Kiran Sarkar MD Attending Provider Active Team Status: Inactive Member Role Status Slime Chi MD Primary Care Provider, Attending Prov ider Active Mri Manager Relationship Specialty Start Date End Date Eloina Chi MD [address] [place] [address] PCP - General Internal Medicine 05/15/24 Mri Manager Relationship Specialty Start Date End Date Eloina Chi MD [address] [facility] [address] [place] [address] PCP - General Internal Medicine 05/15/24 Mri Manager Relationship Specialty Start Date End Date Eloina Chi MD [address] [facility] [address] [place] [address] PCP - General Internal Medicine 05/15/24 Mri Manager Relationship Specialty Start Date End Date Eloina Chi MD [address] [facility] [address] [place] [address] PCP - General Internal Medicine 05/15/24 Mri Manager Relationship Specialty Start Date End Date Eloina Chi MD [address] [facility] [address] [place] [address] PCP - General Internal Medicine 05/15/24 Mri Manager Relationship Specialty Start Date End Date Eloina Chi MD [address] [facility] [address] [place] [address] PCP - General Internal Medicine 05/15/24 Team Status: Inactive Member Role Status Slime Chi MD Primary Care Provider Active St art: October 04, 2024 End: October 04, 2024 Eloina Chi MD Referring Provider Active Start : October 04, 2024 End: October 04, 2024 Ranulfo Gaspar WIND TURBINE CONTROLS ENGINEER, WIND TURBINE CONTROLS ENGINEER-C Attending Provider Active S tart: October 04, 2024 End: October 04, 2024 Team Status: Inactive Member Role Status Slime Chi MD Primary Care Provider Active St art: December 26, 2024 End: December 26, 2024 Carlos Dennis MD Emergency Provider Active Star t: December 26, 2024 End: December 26, 2024 Mri Manager Relationship Specialty Start Date End Date Eloina Chi MD [address] [place] [facility] [address] [place] [address] PCP - General Internal Medicine 05/15/24 Mri Manager Relationship Specialty Start Date End Date Eloina Chi MD [address] [place] [facility] [address] [place] [address] PCP - General Internal Medicine 05/15/24 Mri Manager Relationship Specialty Start Date End Date Eloina Chi MD [address] [place] [facility] [address] [place], [place] [id number] PCP - General Internal Medicine 05/15/24 Team Status: Active Member Role/Relationship Status Dates Eloina Chi MD Primary Care Provider Active Team Status: Inactive Member Role/Relationship Status Dates Eloina Chi MD Primary Care Provider Active St art: February 08, 2025 End: February 08, 2025 DIETER Oreilly Attending Provider Active Star t: February 08, 2025 End: February 08, 2025 DIETER Oreilly Referring Provider Active Star t: February 08, 2025 End: February 08, 2025 Team Status: Inactive Member Role/Relationship Status Dates Eloina Chi MD Primary Care Provider Active St art: March 01, 2025 End: March 01, 2025 DIETER Oreilly Attending Provider Active Star t: March 01, 2025 End: March 01, 2025 DIETER Oreilly Referring Provider Active Star t: March 01, 2025 End: March 01, 2025 Team Status: Inactive Member Role/Relationship Status Dates Eloina Chi MD Primary Care Provider Active St art: May 03, 2025 End: May 03, 2025 Dr. Ramón Ward MD Attending Provider Activ e Start: May 03, 2025 End: May 03, 2025 Dr. Ramón Ward MD Referring Provider Activ e Start: May 03, 2025 End: May 03, 2025 Team Status: Active Member Role/Relationship Status Slime Chi MD Primary Care Provider Active St art: May 06, 2025 MARNI JIMENEZ Attending Provider Active St art: May 06, 2025 MARNI JIMENEZ Referring Provider Active St art: May 06, 2025 Team Status: Inactive Member Role/Relationship Status Slime Chi MD Primary Care Provider Active St art: May 25, 2025 End: May 25, 2025 MARNI JIMENEZ Attending Provider Active St art: May 25, 2025 End: May 25, 2025 MARNI JIMENEZ Referring Provider Active St art: May 25, 2025 End: May 25, 2025 Team Status: Active Member Role/Relationship Status Slime Chi MD Primary Care Provider Active St art: May 25, 2025 MARNI JIMENEZ Attending Provider Active St art: May 25, 2025 MARNI JIMENEZ Referring Provider Active St art: May 25, 2025 Team Status: Inactive Member Role/Relationship Status Slime Chi MD Primary Care Provider Active St art: March 01, 2025 End: March 01, 2025 DIETER Oreilly Attending Provider Active Star t: March 01, 2025 End: March 01, 2025 DIETER Oreilly Referring Provider Active Star t: March 01, 2025 End: March 01, 2025 Team Status: Inactive Member Role/Relationship Status Slime Chi MD Primary Care Provider Active St art: May 03, 2025 End: May 03, 2025 Dr. Ramón Ward MD Attending Provider Activ e Start: May 03, 2025 End: May 03, 2025 Dr. Ramón Ward MD Referring Provider Activ e Start: May 03, 2025 End: May 03, 2025 Team Status: Inactive Member Role/Relationship Status Slime Chi MD Primary Care Provider Active St art: May 31, 2025 End: May 31, 2025 MARNI JIMENEZ Attending Provider Active St art: May 31, 2025 End: May 31, 2025 MARNI JIMENEZ Referring Provider Active St art: May 31, 2025 End: May 31, 2025 Team Status: Active Member Role/Relationship Status Dates Eloina Chi MD Primary Care Provider Active St art: June 10, 2025 Cherelle Maher LPN Attending Provider Active S tart: June 10, 2025 Goals (unrecognized section and content) Goals may be documented in a n alternate sectionGoals may be documented in an alternate sectionGoals may be documented in an alternate sectionGoals may be documented in an alternate sectionGoals may be documented in an alternate sectionGoals may be documented in an alternate sectionGoals may be documented in an alternate sectionGoals may be documented in an alternate section Source Comments (unrecognize d section and content) In the event this informatio n is protected by the Federal Confidentiality of Alcohol and Drug Abuse Patient Records regulations: The Federal rules restrict any use of the information to criminally investigate or prosecute any alcohol or drug abuse patient.[facility] the event this information is protected by the Federal Confidentiality of Alcohol and Drug Abuse Patient Records regulations: The Federal rules restrict any use of the information to criminally investigate or prosecute any alcohol or drug abuse patient.[facility] the event this information is protected by the Federal Confidentiality of Alcohol and Drug Abuse Patient Records regulations: The Federal rules restrict any use of the information to criminally investigate or prosecute any alcohol or drug abuse patient.[facility] the event this information is protected by the Federal Confidentiality of Alcohol and Drug Abuse Patient Records regulations: The Federal rules restrict any use of the information to criminally investigate or prosecute any alcohol or drug abuse patient.[facility] the event this information is protected by the Federal Confidentiality of Alcohol and Drug Abuse Patient Records regulations: The Federal rules restrict any use of the information to criminally investigate or prosecute any alcohol or drug abuse patient.[facility] Hospital[facility] the event this information is protected by the Federal Confidentiality of Alcohol and Drug Abuse Patient Records regulations: The Federal rules restrict any use of the information to criminally investigate or prosecute any alcohol or drug abuse patient.[facility] Hospital[facility] the event this information is protected by the Federal Confidentiality of Alcohol and Drug Abuse Patient Records regulations: The Federal rules restrict any use of the information to criminally investigate or prosecute any alcohol or drug abuse patient.[facility] Hospital[facility] the event this information is protected by the Federal Confidentiality of Alcohol and Drug Abuse Patient Records regulations: The Federal rules restrict any use of the information to criminally investigate or prosecute any alcohol or drug abuse patient.[facility] Hospital[facility] the event this information is protected by the Federal Confidentiality of Alcohol and Drug Abuse Patient Records regulations: The Federal rules restrict any use of the information to criminally investigate or prosecute any alcohol or drug abuse patient.[facility] Hospital[facility] the event this information is protected by the Federal Confidentiality of Alcohol and Drug Abuse Patient Records regulations: The Federal rules restrict any use of the information to criminally investigate or prosecute any alcohol or drug abuse patient.[facility] Hospital[facility] the event this information is protected by the Federal Confidentiality of Alcohol and Drug Abuse Patient Records regulations: The Federal rules restrict any use of the information to criminally investigate or prosecute any alcohol or drug abuse patient.[facility] Reason for Visit (unrecogniz ed section and content) Reason Comments New Patient Parkinson's Disease Reason Comments Follow Up Parkinson's Disease Reason Comments Parkinsons Disease Specialty Diagnoses / Procedures Referred By Contac t Referred To Contact Diagnoses Parkinson's disease without dyskinesia, with fluctuating manifestations (HCC) Procedures PROVIDER ORDERED FOLLOW UP OFFICE/OUTPATIENT NEW HIGH [facility] 60 MINUTES Joseph Sarabia MD [address] [place] [address] Referral ID Status Reason Start Date Expiration Date V isits Requested Visits Authorized [id number] Closed PCP Requested Referral 12/19/2023 03/18/2024 1 1 Reason Comments Second Opinion Chronic constipation , previous patient Dr. Gil Reason Comments Medication Question Reason Comments Established Patient Follow Up Reason Comments Medication Authorization Reason Onset Date Comments Refill Request 02/23/2025 Reason Comments Parkinson's Disease Specialty Diagnoses / Procedures Referred By Contac t Referred To Contact Diagnoses Parkinson's disease without dyskinesia or fluctuating manifestations (HCC) Procedures PROVIDER ORDERED FOLLOW UP OFFICE/OUTPATIENT NEW HIGH [facility] 60 MINUTES Joseph Sarabia MD [address] [place] [address] Phone: tel: fax: Referral ID Status Reason Start Date Expiration Date V isits Requested Visits Authorized [id number] Closed PCP Requested Referral 03/22/2025 09/21/2025 1 1 Reason Comments Orders Reason Comments New patient, to establish relationship Reason Comments oropharyngeal SCCa (unrecognized sect ion and content) No Status Records FoundNo Status Records FoundNo Status Records Found INFORMATION SOURCE (unrecogn ized section and content) DATE CREATED AUTHOR 05/04/2025 [facility] DATE CREATED AUTHOR AUTHOR'S ORGANIZ ATION 06/11/2025 [facility] DATE CREATED AUTHOR AUTHOR'S ORGANIZ ATION 06/13/2025 [facility] FOR RECORDS PERTAINING TO PATIENTS WHO ARE OR HAVE BEEN ENROLLED IN A CHEMICAL DEPENDENCY/SUBSTANCEABUSE PROGRAM, SOME INFORMATION MAY BE OMITTED. This clinical summary was aggregated from multiple sources. Caution should be exercised in using it in the provision of clinical care. This summary normalizes information from multiple sources, and as a consequence, information in this document may materially change the coding, format and clinical context of patient data. In addition, data may be omitted in some cases. CLINICAL DECISIONS SHOULD BE BASED ON THE PRIMARY CLINICAL RECORDS. [facility] [employer], [facility]. provides no warranty or guarantee of the accuracy or completeness of information in this document.
--- NOTE | 2025-06-15 07:00 | PET_ITS ---
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 Left level 2 and level 3 lymphadenopathy. TECHNIQUE: Procedure Code: PETPTCTINIT Modality: PT Procedure: PET/CT TUMOR BASE -THIGH INIT After intravenous injection of 13.9 millicuries of FDG and a standard uptake period, a noncontrast CT scan, followed by a PET scan were acquired along the length of the body from the base of the skull to the mid thighs. The noncontrast helical CT imaging was performed without breath hold, for attenuation correction of PET images and anatomic correlation, but not for primary interpretation, as it is not of the standard diagnostic quality. Images were reviewed in the axial, coronal and sagittal planes. RADIATION DOSE SUMMARY: Effective Dose: Approximately 7 mSv for a standard whole-body PET scan CTDI: 7.95 mGy DLP: 780.9 mGy cm COMPARISON: COMPARISON FROM CT, PET OR OTHER PERTINENT EXAMS: CT soft tissue neck with contrast, 05/03/2025. FINDINGS: Physiologic uptake: There may be expected metabolic uptake within the brain, tongue and floor of the mouth and larynx/vocal cords, heart, dina (many normal individuals have hilar uptake in less than 3 nodes with mildly avid hilar nodes less than 2.7 SUV), liver and spleen, system, and GI tract and symmetric muscle uptake. FDG AVID AND NON-AVID LESIONS. Reported avid SUV values (g/mL) are maximum SUV. Head and neck: There is a normal distribution of FDG activity in the visualized brain parenchyma. There is a centrally necrotic, hypermetabolic mass, centered in the left palatine tonsil, measuring 5.6 x 3.8 x 2.7 cm, max SUV 15.0. The mass extends superiorly and anteriorly into the base of the tongue, on the left. Inferiorly, the mass extends just proximal to the left aryepiglottic fold. There is hypermetabolic left level 2 lymphadenopathy, measuring 3.8 cm in vertical dimension and 1.6 x 0.8 cm in greatest axial dimension, max SUV 11.5. There is calcific vascular disease of both carotid bifurcations. There is nasal septal deviation to the right. There is a right-sided nasal spur. Chest: There is moderate upper lobe predominant centrilobular emphysema. There is basilar predominant interstitial lung disease with subpleural reticulation. There is a calcified granuloma in the right lung base. There are no pleural effusions. The heart size is normal. There is no pericardial effusion. There is calcific vascular disease of the thoracic aorta and coronary arteries. There is a 13 x 8 mm soft tissue density nodule demonstrating hypermetabolic activity, max SUV 5.2, in the soft tissue between the left 2nd and 3rd rib. There is no hypermetabolic mediastinal, hilar or axillary lymphadenopathy. Abdomen and pelvis: There is a small hiatal hernia. There is calcific vascular disease of the abdominal aorta. There are benign cortical cysts in the left kidney. There is stool throughout the colon. The prostate gland measures 5.4 cm in transverse dimension. There is no focal hypermetabolic activity within the prostate gland. There is a normal distribution of FDG activity within the gastrointestinal and genitourinary tract. There is no hypermetabolic lymphadenopathy identified. Musculoskeletal: There are no suspicious hypermetabolic osteolytic or osteosclerotic lesions. There is increased physiologic activity in the paraspinal muscles of the neck and chest, and proximal thighs. Uptake time: 60 minutes. Hepatic blood pool: Max SUV, 2.8 Blood glucose (mg/dL): 115 BMI: 23.7 PET/PET/CT Tumor Base -Thigh Init IMPRESSION: 1. Centrally necrotic hypermetabolic activity in the left palatine tonsil cons istent with squamous cell carcinoma. 2. Contiguous left level 2 and 3 hypermetabolic cervical lymphadenopathy consi stent with metastatic disease. 3. Soft tissue nodule demonstrating hypermetabolic activity in the left chest posteriorly, between the 2nd and 3rd rib, suspicious for metastatic disease. 4. Prostatomegaly without abnormal activity. 5. Other findings as noted. Reading Location: [id number]
== END | disposition home or self-care (01) ==
PROVIDERS: PCP Family Medicine; Referring Provider Otolaryngology; Visit Provider Otolaryngology
DX: C10.9 Malignant neoplasm of oropharynx, unspecified (principal); C77.0 Secondary and unspecified 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, face and neck; C44.92 Squamous cell carcinoma of skin, unspecified; Z87.891 Personal history of nicotine dependence
CPT/HCPCS: 78815; A9552

== ENCOUNTER 2025-06-30 07:04 | Day surgery (SDC) | payer MEDICARE, SELFPAY ==
--- NOTE | 2025-06-24 09:46 | PAT.ANE_ITS ---
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 When Was Last Pacemaker Check QUESTION #4 FULL TEXT: You/Your Family Experience fever (hyperthermia) with Anesthesia Last Oral Intake Last Oral intake: Last Oral Intake NPO since Meds taken in AM with sips of water? 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 Female No 06/24/25 08:12 HX of Motion Sickness No 06/24/25 08:12 HX of N/V After Surgery No 06/24/25 08:12 Non-Smoker Yes 06/24/25 08:12 Duration of Surgery greater Yes 06/24/25 08:12 than 60 minutes Number of Risk Factors 2 06/24/25 08:12 PONV Score Moderate Risk 06/24/25 08:12 Height & Weight Height & Weight: Anesthesia: Height & Weight Height 5 ft 8 in 06/21/25 13:38 Respiratory Assessment Respiratory Assessment - concrete pipe maker: Respiratory Tract Infection Hx - concrete pipe maker Hx Respiratory Tract Infection No 06/24/25 08:12 STOP Sleep Apnea STOP Sleep Apnea - concrete pipe maker: STOP Sleep Apnea - concrete pipe maker Hx Hypertension No 06/24/25 08:12 Hx Sleep Apnea No 06/24/25 08:12 CPAP BIPAP Do you snore loudly (louder Yes 06/24/25 08:12 than talking or can be heard Do you often feel tired/ Yes 06/24/25 08:12 fatigued/ sleepy during daytime? Has anyone observed you stop No 06/24/25 08:12 breathing during sleep? STOP Results Positive 06/24/25 08:12 QUESTION #5 FULL TEXT : Do you snore loudly (louder than talking or can be heard through closed doors)? 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 confused, unrespo /Reproduction History /Reproductive History - concrete pipe maker: /Reproductive Hx- concrete pipe maker Hx Now No 06/24/25 08:12 Gestational Age (in weeks): EDC: Hx Hx Para Hx Section SAB No 06/24/25 08:12 PFSH Medical History (Updated 06/24/25 @ 08:23 by Jael Nathan) Wears glasses Cancer Alcohol use History of steroid therapy Thyroid disease Uses wheelchair Arthritis Prostate disease Low iron DVT (deep venous thrombosis) Back pain Migraine headache Parkinson's disease Orthostatic hypotension Syncope Dietary restriction History of diverticulitis Gastric reflux Chronic cough Former smoker History of pain when walking History of stress test History of echocardiogram Cardiology follow-up encounter Celiac disease Home Medications ?Medication ?Instructions ?Recorded ?Last Taken ?Type levothyroxine 50 mcg tablet 50 mcg PO QDAY 03/05/24 Un known History omeprazole 40 mg capsule,delayed 40 mg PO QDAY 4 Unknown History release tamsulosin 0.4 mg capsule 0.4 mg PO BID 03/05/24 Unkno wn History prucalopride 2 mg tablet 2 mg PO DAILY 05/09/24 Unkno wn History ([employer]) carbidopa ER 25 mg-levodopa 100 mg 1 tab PO .qid 06/10 Unknown History tablet,extended release fludrocortisone 0.1 mg tablet 0.1 mg PO QDAY 06/17/25 Unknown History Allergy/AdvReac Type Severity Reaction Status Date / Time gluten Allergy Abd Verified 06/24/25 08:08 cramps/diarrhea aripiprazole AdvReac unknown Verified 06/24/25 08:08 haloperidol AdvReac unknown Verified 06/24/25 08:08 metoclopramide AdvReac unknown Verified 06/24/25 08:08 olanzapine AdvReac unknown Verified 06/24/25 08:08 prochlorperazine AdvReac unknown Verified 06/24/25 08:08 promethazine AdvReac unknown Verified 06/24/25 08:08 Family History Brother Cancer THROAT Mother Leukemia Sister Breast cancer Surgical History (Updated 06/24/25 @ 08:23 by Jael Nathan) Hx of right cataract extraction Hx of left cataract extraction Hx of eye surgery History of hydrocelectomy Hx of hernia repair Hx of colonoscopy Social History household members: significant other housing: house current occupational status: retired Smoking Status: Former smoker alcohol intake: never substance use type: does not use Audit: Pertinent Findings Pertinent Findings EKG Perinent findings: 05/09/2024. Sinus arrhythmia. Nonspecific ST and T wave abnormality. Recommendation Anesthesia Recommendation Anesthesia recommendation: OPTIMIZED for anesthesia
[2025-06-30] VITALS (9 sets, daily range): BP systolic 82–108; BP diastolic 57–74; PULSE 78–108; RESP 16–18; TEMP 36.2–36.6; O2SAT 92–96; BMI 23.4
--- OUTSIDE RECORDS SUMMARY | 2025-06-30 07:10 | XMS RPT_ITS | CCD ---
Author Organization [facility] Care Team Providers Care Sustainability Purchasing Agent Name Role Phone MD Eloina Chi Primary Care Provider MD Eloina Chi Referring Provider [phone] DIETER Morrow Attending Provider Dr. Kiran Sarkar Attending Provider Unavailable Primary Care Provider Unavailabl e Unavailable Primary Care Provider Unavailabl e Eloina Chi MD Primary Care Provider Eloina Chi MD Primary Care Provider [phone] Eloina Chi MD Referring Provider Ranulfo Mcfadden Attending Provider Eloina Chi MD Attending Provider Carlos Dennis MD Emergency Provider Ariel Black Attending Provider Ariel Black Referring Provider Eloina Chi MD Primary Care Provider Eloina Chi MD Referring Provider Carlos Dennis MD Attending Provider JOSEPH SARABIA Attending Unavailable LULA, CHALON Primary Care Unavailable ALISSON SARABIA Attending Unavailable JOSEPH SARABAI Referring Unavailable LULA, CHALON Primary Care Unavailable ALISSON SARABIA Attending Unavailable JOSEPH SARABIA Referring Unavailable LULA, CHALON Primary Care Unavailable SALMA CHAMBERLAIN Attending Unavailable SELF Referring Unavailable LULA, CHALON Primary Care Unavailable SALMA CHAMBERLAIN Referring Unavailable LULA, CHALON Primary Care Unavailable Eloina Chi MD Primary Care Provider Duque PA, Ariel Attending Provider Duque PA, Ariel Referring Provider Ed HARDEN, Dr. Melgar Attending Provider Dr. Anusha Ward MD Referring Provider ALISSON REDDY Attending Provider ALISSON REDDY Referring Provider [phone] Unavailable Primary Care Provider Unavailabl e ALISSON REDDY Attending Provider [phone] ALISSON REDDY Referring Provider [phone] Lula HARDEN, Eloina Primary Care Provider Duque DIETER, Ariel Attending Provider [place] DIETER, Ariel Referring Provider ALISSON REDDY Attending Provider ALISSON REDDY Referring Provider [phone] Cherelle Maher LPN Attending Provider Unavailab RETA Izquierdo Attending Unavailable ANN-MARIE MONTES Admitting Unavailable ROBBIN, RETA Attending Unavailable ANUSHA WARD Referring Unavailabl e ANN-MARIE MONTES Admitting Unavailable ROBBINRETA Referring Unavailable ANN-MARIE MONTES Attending Unavailable ANN-MARIE MONTES Admitting Unavailable Dr. Reta Sanchez MD Attending Provider Dr. Reta Sanchez MD Referring Provider Dr. En Guerin DO Attending Provider Eloina Chi MD Referring Provider Dr. Kalyn Ng MD Attending Provider [phone] Dr. Simone Collins MD Attending Provider Dr. En Guerin DO Referring Provider Justin ALVARENGA-C, Jayashree Attending Provider Dr. En Guerin DO Referring Provider Lula, Chalon Primary Care Unavailable Robotham, Kalyn Referring Unavailable Robotham, Kalyn Attending Unavailable Lula, Chalon Referring Unavailable Lula, Chalon Attending Unavailable Lula, Chalon Primary Care Unavailable Lula, Chalon Primary Care Unavailable Cherelle Maher Attending Unavailable Robbin, Reta Referring Unavailable Truong, En Attending Unavailable Lula, Chalon Primary Care Unavailable Lula, Chalon Referring Unavailable Robotham, Kalyn Attending Unavailable Lula, Chalon Primary Care Unavailable Lula, Chalon Referring Unavailable Simone Collins Attending Unavailable Lula, Chalon Referring Unavailable Roof GRILL CHEF, Ranulfo Juarez Attending Unavailable Lula, Chalon Primary Care Unavailable Lula, Chalon Referring Unavailable Lula, Chalon Primary Care Unavailable Justin GRILL CHEF, Jayashree Attending Unavailable Lula, Chalon Primary Care Unavailable Truong, En Attending Unavailable Truong, En Attending Unavailable Lula, Chalon Primary Care Unavailable Lula, Chalon Primary Care Unavailable Duque, Ariel Referring Unavailable Duque, Ariel Attending Unavailable Lula, Chalon Primary Care Unavailable IselaannAnusha Referring Unavailabl e Wartmann, Anusha Attending Unavailabl e Lula, Chalon Primary Care Unavailable Robbin, Reta Referring Unavailable Robbin, Reta Attending Unavailable Lula, Chalon Primary Care Unavailable ALISSON SARABIA Referring Unavailable ALISSON SARABIA Attending Unavailable Reodica, Carlos Attending Unavailable Lula, Chalon Primary Care Unavailable Duque, Ariel Attending Unavailable Lula, Chalon Primary Care Unavailable Duque, Ariel Referring Unavailable Duque, Ariel Attending Unavailable Duque, Ariel Referring Unavailable Lula, Chalon Primary Care Unavailable Lula, Chalon Primary Care Unavailable Truong, En Referring Unavailable Truong, En Attending Unavailable Allergies Allergy Classification Reported Allergen(s) Allergy Type Date of Onset Reaction(s) Facility (16 sources) Wheat gluten extract; Translations: [GLUTEN] Drug Allergy 12-27-19 Other: See [facility] (18 sources) ARIPiprazole; Translations: [ARIPIPRAZOLE] Drug Allergy 04-08-20 Contraindicati on-Medical Surgical [facility] (18 sources) Haloperidol; Translations: [HALOPERIDOL] Drug Allergy 04-08-20 Contraindicati on-Medical Surgical [facility] (18 sources) Metoclopramide; Translations: [METOCLOPRAMIDE] Drug Allergy 04-08-20 Contraindicati on-Medical Surgical [facility] (11 sources) OLANZapine; Translations: [OLANZAPINE] Drug Allergy 04-08-20 Contraindicati on-Medical Surgical [facility] (18 sources) Prochlorperazine; Translations: [PROCHLORPERAZINE] Drug Allergy 04-08-20 Contraindicati on-Medical Surgical [facility] (18 sources) Promethazine; Translations: [PROMETHAZINE] Drug Allergy 04-08-20 Contraindicati on-Medical [facility] (8 sources) Gluten; Translations: [GLUTEN MEAL] Propensity to adverse reactions to drug 12-27-[address] [facility] (7 sources) OLANZapine Drug Allergy 04-08-[address] [facility] (1 source) ARIPiprazole Drug Allergy 06-28-20 [facility] (1 source) Gluten Drug allergy (disorder) 06-28-20 [facility] (1 source) Haloperidol Drug Allergy 06-28-20 [facility] (1 source) Metoclopramide Drug Allergy 06-28-20 [facility] (1 source) OLANZapine Drug Allergy 06-28-20 [facility] (1 source) Prochlorperazine Drug Allergy 06-28-20 [facility] (1 source) Promethazine Drug Allergy 06-28-20 [facility] Medications Current Medications Medication Drug Class(es) Dates Sig (Normalized) Sig (Original) carbidopa 25 mg / levodopa 100 mg extended release oral tablet (20 sources) Aromatic Amino Acid Decarboxylation Inhibitor, Aromatic Amino Acid Start: 06-25-2024 End: 09-21-2025 take 1 tablet by mouth four times daily carbidopa-levodo pa CR (SINEMET CR) 25-100 mg per tablet Take 1 tablet by mouth four times daily. At 6am, 12pm, 6pm, 8pm and 12am (if awakening at night) 360 tablet 3 09/21/2024 09/21/2025 Active Start: 03-05-2024 CARBIDOPA-LEVO DOPA CR ORAL 1 [...] by kathrine th three times a day. fludrocortisone acetate 0.1 mg oral tablet (5 sources) Start: take 1 tablet by mouth once daily Fludrocortisone 0.1 mg tablet Active 0.1 mg PO daily June 17, 2025 12:00am levothyroxine sodium 0.05 mg oral tablet (20 sources) l-Thyroxine Start: take 1 tablet by mouth once levothyroxine (SYNTHROID) 50 mcg tablet Take 1 tablet by mouth every afternoon. 02/21/2024 Active End: 03-17-2024 take 1 capsule by mouth once daily levothyroxine 50 mcg cap Take 50 mcg by mouth once daily. 0 03/17/2024 Discontinued Comment on above: Take 50 mcg by mouth once daily. 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 12/05/2023 Active Comment on above: Take 1 capsule by mo [facility] once daily. ondansetron 8 mg disintegrating oral tablet (1 source) Serotonin-3 Receptor Antagonist Start: 06-28-20 take 1 tablet by mouth every eight hours as needed for nausea and vomiting Ondansetron 8 mg tablet,disintegrati ng Active 8 mg PO Q8H as needed for nausea and vomiting 30 June 28, 2025 12:00am Squamous cell carcinoma of oropharynx Malignant neoplasm of oropharynx, unspecified OTC NUTRITIONAL SUPPLEMENT (12 sources) take 1 tablet by mouth once [...] Comment on above: Take 1 tablet by [facility] once daily. Vitamin C, Vitamin B Complex, Vitamin B-12, and Calcium. propranolol hydrochloride 20 mg oral tablet (20 sources) beta-Adrenergic Cyndy Start: 4 End: 5 take 1 tablet by mouth twice daily Propranolol 20 mg tablet Discontinued 20 mg PO TWICE A DAY March 05, 2024 12:00am June 17, 2025 1:35pm Start: 10-19-2023 End: 02-23-2026 take 1 tablet by mouth every twelve hours propranolol (INDERAL) 20 mg tablet Take 1 tablet by mouth every 12 hours. 60 tablet 02/23/2025 02/23/2026 Active Comment on above: Take 1 tablet by [facility] every 12 hours. prucalopride 2 mg oral tablet (20 sources) Start: 4 End: 5 take 1 tablet by mouth once daily prucalopride (MOTEGRITY) 2 mg tab tablet Take 1 tablet (2 mg) by mouth once daily. 30 tablet 11 09/30/2024 09/30/2025 Active Prucalopride (Motegrity) 2 mg tablet (2 sources) Start: 4 take 1 tablet by mouth once daily Prucalopride (Motegrity) 2 mg tablet Active 2 mg PO DAILY May 09, 2024 12:00am tamsulosin hydrochloride 0.4 mg oral capsule (20 sources) alpha-Adrenergic Cyndy Start: take 1 capsule by mouth twice daily Tamsulosin 0.4 mg capsule Active 0.4 mg PO TWICE A DAY March 05, 2024 12:00am Start: 09-20-2023 [facility] hours tamsulosin (FLOMAX) 0.4 mg Take 1 capsule by mouth every 12 hours. 09/20/2023 Active Comment on above: Take 1 capsule by [facility] 12 hours. Completed/Discontinued Medications [...] mg / clavulanate 125 mg oral tablet (12 sources) Penicillin-class Antibacterial Start: 10-04-2024 End: 10-11-2024 [...] Comment on above: Take 1 tablet by [facility] as directed. Bisacodyl (Dulcolax (Bisacodyl)) 10 mg suppository (12 sources) Start: 03-05-2024 End: 05-09-2024 Bisacodyl (Dulcolax (Bisacodyl)) 10 mg suppository Discontinued 10 mg RC DAILY as needed for constipation 12 0 March 05, 2024 12:00am May 09, 2024 6:23am Start: 03-05-2024 End: 05-09-2024 Bisacodyl (Dulcolax (Bisacod yl)) 10 mg suppository Discontinued 10 mg RC DAILY as needed for constipation March 05, 2024 12:00am May 09, 2024 6:23am EPINEPHrine 0.01 mg/ml / lidocaine hydrochloride 10 mg/ml injectable solution (6 sources) Antiarrhythmic, alpha-Adrenergic Agonist, beta-Adrenergic Agonist, Catecholamine, Amide Local Anesthetic Start: 05-28-2025 End: 05-28-2025 lidocaine-EPINEPHrine (XYLOCAINE) 1 %-1:064837 injection SOLN Start: 05-28-2025 End: 05-28-2025 2 mL, Injection, ONCE, 1 dos e, On Sat05/28/25 at 1430 Start: 05-28-2025 End: 05-28-2025 lidocaine-EPINEPHrine (XYLOC LAURY) 1 %-1:929005 injection SOLN Start: 05-28-2025 End: 05-28-2025 2 mL, Injection, ONCE, 1 dos e, On Sat05/28/25 at 1430 Start: 05-28-2025 End: 05-28-2025 lidocaine-EPINEPHrine (XYLOC LAURY) 1 %-1:[id number] injection SOLN Start: 05-28-2025 End: 05-28-2025 2 [...] 07/30/2024 Discontinued Guar Gum (Nutrisource Fiber) packet (12 sources) Start: 05-09-2024 End: 10-04-2024 take 4 [oz_av] by mouth three times daily as needed Guar Gum (Nutrisource Fiber) packet Discontinued 1 tbsp PO THREE TIMES A DAY as needed for bowels May 09, 2024 12:00am October 04, 2024 9:11am mix into at least 4 oz water or juice before administering lactulose 667 mg/ml oral solution (20 sources) Osmotic Laxative Start: 03-05-2024 End: 05-09-2024 [...] 10 ml lidocaine hydrochloride 20 mg/ml injection (3 sources) Antiarrhythmic, Amide Local Anesthetic Start: 05-28-2025 End: 05-28-2025 lidocaine (XYLOCAINE) 2 % injection Start: 05-28-2025 End: 05-28-2025 lidocaine (XYLOCAINE) 2 % in jection Start: 05-28-2025 End: 05-28-2025 lidocaine (XYLOCAINE) 2 % in jection linaclotide 0.145 mg oral capsule (15 sources) Guanylate Cyclase-C Agonist Start: 12-16-2023 End: 06-25-2024 take 1 capsule by mouth once daily Linaclotide (Linzess) 145 mcg capsule Discontinued 290 ug PO daily March 05, 2024 12:00am May 09, 2024 6:23am Comment on above: Take 1 capsule by [facility] every afternoon. magnesium citrate 125 mg oral capsule (12 sources) Start: 03-05-2024 End: 05-09-2024 take 2 capsules by mouth once Magnesium Citrate 125 mg capsule Discontinued 125 mg PO ONCE 2 0 March 05, 2024 12:00am May 09, 2024 6:24am Take 2 glasses of water with each administration. methylPREDNISolone 4 mg oral tablet (13 sources) Corticosteroid Start: 09-25-2023 End: 10-01-2023 take 1 tablet by mouth once Methylprednisolone (Medrol (Daniele)) 4 mg tablets,dose pack Discontinued 4 mg PO per package directions 21 6 0 September 25, 2023 1:00am September 30, 2023 1:00am October 01, 2023 1:05am midodrine hydrochloride 5 mg oral tablet (13 sources) alpha-Adrenergic Agonist Start: 04-07-2025 End: 06-17-2025 take 1 tablet by mouth once daily at bedtime Midodrine 5 mg tablet Discontinued 5 mg PO daily June 10, 2025 12:00am June 17, 2025 1:35pm do not give last dose of day after 6PM or within 4 hrs of bedtime polyethylene glycol 3350 01509 mg powder for oral solution (19 sources) Osmotic Laxative Start: 05-09-2024 End: 10-04-2024 Polyethylene Glycol 3350 (Clearlax) 17 gram/dose powder Discontinued 17 g PO DAILY May 09, 2024 12:00am October 04, 2024 9:11am polyethylene gly col 3350 (MIRALAX) 17 gram packet Take 17 g by mouth two times a day. Dissolve dose in 4 - 8 ounces of liquid and take as directed. Active polyethylene glycol 3350 774189 mg / potassium chloride 2970 mg / sodium bicarbonate 6740 mg / sodium chloride 5860 mg / sodium sulfate 86562 mg powder for oral solution (20 sources) Osmotic Laxative Start: 06-10-2025 End: 06-24-2025 Peg 3350-Electrolytes 236-22.74-6.74 -5.86 gram recon soln Discontinued mL PO as needed for constipation June 10, 2025 12:00am June 24, 2025 8:10am Start: 05-15-2024 peg 3350-Elect rolytes (GOLYTELY) 236-22.74-6.74 -5.86 gram suspension DRINK NEEDED FOR CONSTIPATION 05/15/2024 Active Start: 03-26-2024 End: 05-09-2024 take 1 mL by mouth every hour as needed for constipation Peg 3350-Electrolytes (Golytely) 236-22.74-6.74 -5.86 gram recon soln Discontinued 240 mL PO Q1H as needed for constipation 4000 0 March 26, 2024 11:29am May 09, 2024 6:24am until fecal effluent is clear Sennosides (Senna) 8.6 mg tablet (12 sources) Start: 03-05-2024 End: 10-04-2024 take 1 tablet by mouth twice daily as needed for constipation Sennosides (Senna) 8.6 mg tablet Discontinued 8.6 mg PO TWICE A DAY as needed for constipation March 05, 2024 12:00am October 04, 2024 9:11am sennosides, mcfp 8.6 mg oral tablet (4 sources) Start: 04-20-2024 End: 09-21-2024 take 1 tablet by mouth every twelve hours SENNA 8.6 mg tab Take 1 tablet by mouth every 12 hours. 04/20/2024 09/21/2024 Discontinued (Course of therapy completed) Problems Active Problems Problem Classification Problem Date Documented Da te Episodic/Chronic Acute and chronic tonsillitis (13 sources) Mass of palatine tonsil; Translations: [Other chronic diseases of tonsils and adenoids] Onset: 5 05-14-2025 Chronic Administrative/social admission (1 source) Counseling, unspecified; Translations: [Counseling, unspecified] Onset: 5 Episodic Cancer of head and neck (20 sources) Squamous cell carcinoma of oropharynx; Translations: [Malignant neoplasm of oropharynx, unspecified] Onset: 5 06-04-2025 Chronic Comment on above: Invasive tonsillar c arcinoma, p16 positive, Stage I(cT2 cN1 M0)Discussed definitive treatment with combined chemotherapy and radiation therapy, chemotherapy will be given as weekly Taxol and carboplatin, side effects, risks and benefits. Patient and his agree to proceed. Diseases of mouth; excluding dental (2 sources) Excessive salivation; Translations: [Disturbances of salivary secretion] Onset: 5 04-08-2025 Episodic E Codes: Fall (12 sources) Fall; Translations: [Unspecified fall, initial encounter] 12-26-2024 Episodic Esophageal disorders (20 sources) Gastroesophageal reflux disease; Translations: [Gastro-esophageal reflux disease without esophagitis] Onset: 3 12-19-2023 Chronic Hyperplasia of prostate (13 sources) Benign prostatic hyperplasia; Translations: [Benign prostatic hyperplasia without lower urinary tract symptoms] 03-05-2024 Chronic Open wounds of head; neck; and trunk (12 sources) Avulsion of skin; Translations: [Unspecified open wound of other part of head, initial encounter] 12-26-2024 Episodic Other aftercare (10 sources) Patient encounter status; Translations: [Encounter for adjustment and management of vascular access device] 06-21-2025 Episodic Other aftercare (1 source) Encounter for adjustment and management of vascular access device; Translations: [Encounter for adjustment and management of vascular access device] Onset: 5 Episodic Other and unspecified benign neoplasm (7 sources) Mass of palatine tonsil 05-14-2025 Episodic Other connective tissue disease (12 sources) Neurological symptom; Translations: [Unspecified symptoms and signs involving the nervous system] 05-17-2024 Episodic Other gastrointestinal disorders (1 source) Intestinal malabsorption; Translations: [Intestinal malabsorption, unspecified] 07-30-2024 Chronic Other gastrointestinal disorders (1 source) Intestinal malabsorption, unspecified; Translations: [Intestinal malabsorption, unspecified type] Onset: 4 Chronic Other gastrointestinal disorders (8 sources) Patient encounter status; Translations: [Encounter for attention to gastrostomy] 06-21-2025 Chronic Other gastrointestinal disorders (1 source) Encounter for attention to gastrostomy; Translations: [Encounter for attention to gastrostomy] Onset: 5 Chronic Other gastrointestinal disorders (12 sources) Obstipation; Translations: [Constipation, unspecified] 03-19-2024 Episodic Other nervous system disorders (1 source) Impaired cognition; Translations: [Other symptoms and signs involving cognitive functions and awareness] 09-21-2024 Episodic Other non-epithelial cancer of skin (20 sources) Squamous cell carcinoma of skin, unspecified; Translations: [Squamous cell carcinoma of skin, site unspecified] Onset: 5 05-28-2025 Episodic Other skin disorders (5 sources) Mass of chest wall; Translations: [Localized swelling, mass and lump, trunk] 06-22-2025 Episodic Comment on above: Hypermetabolic nodul e on the left posterior upper chest wall, clinically not palpable. Other skin disorders (1 source) Localized swelling, mass and lump, trunk; Translations: [Localized swelling, mass and lump, trunk] Onset: Episodic Parkinson`s disease (2 sources) Parkinson`s disease; Translations: [Parkinson's disease without dyskinesia, with fluctuating manifestations (HCC)] Onset: 5 Screening and history of mental health and substance abuse codes (4 sources) Ex-smoker; Translations: [Personal history of nicotine dependence] Onset: 5 06-04-2025 Episodic Secondary malignancies (2 sources) Secondary and unspecified 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, face and neck; Translations: [Secondary and unspecified 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, face and neck] Onset: Chronic Superficial injury; contusion (20 sources) Contusion of unspecified back wall of thorax, initial encounter; Translations: [Contusion of back wall of thorax] 09-25-2023 Episodic Thyroid disorders (13 sources) Hypothyroidism; Translations: [Hypothyroidism, unspecified] 03-05-2024 Chronic Unclassified (20 sources) Parkinson's disease; Translations: [Parkinson's disease without dyskinesia, with fluctuating manifestations (HCC)] Onset: 12-19-2023 Chronic Unclassified (20 sources) Squamous cell carcinoma of oropharynx Unclassified (20 sources) C10.9 - Malignant neoplasm of oropharynx, unspecified Past or Other Problems Problem Classification Problem Date Documented Da te Episodic/Chronic E Codes: Natural/environment (16 sources) Cat bite - wound; Translations: [Bitten by cat, initial encounter] Onset: 10-04-2024 10-04-2024 Episodic Other circulatory disease (14 sources) Orthostatic hypotension; Translations: [Orthostatic hypotension] Onset: 03-17-2024 03-17-2024 Episodic Other circulatory disease (1 source) Orthostatic hypotension; Translations: [Orthostatic hypotension] Onset: 03-17-2024 Episodic Other gastrointestinal disorders (20 sources) Constipation; Translations: [Constipation, unspecified] Onset: 03-17-2024 03-17-2024 Episodic Other gastrointestinal disorders (1 source) [...] lymph nodes of head and neck (HCC) 08-22-2025 Results Test Name Value Interpretation Reference Range Facility Absolute lymphocyte countOrd ered By: Simone Boateng on 06-28-2025 Lymphocytes Auto (Unsp spec) [#/Vol] 2.83 10*3/uL 0.83-4.51 [facility] Absolute neutrophil countOrd ered By: Simone [facility] on 06-28-2025 Neutrophils (Bld) [#/Vol] 4.3 10*3/uL 2.0-7.7 [facility] Anion gap in Serum or Plasma Ordered By: Simone Collins on 06-28-2025 Anion gap [Moles/Vol] 10 mmol/L 02-25 [facility] Automated lymphocyte count a s percentage of total leukocytesOrdered By: Simone Kilo on 06-28-2025 Lymphocytes/100 WBC Auto (Unsp spec) 33.9 % [facility] BUN/creatinine ratioOrdered By: [facility] on 06-28-2025 Urea nitrogen/Creatinine [Mass ratio] 13.4 mg/mg 10- [facility] Basophil percentageOrdered B y: Simone Collins on 06-28-2025 Basophils/100 WBC (Bld) 0.6 % 0-1 [facility] Bilirubin, totalOrdered By: [facility] on 06-28-2025 Bilirubin [Mass/Vol] 0.46 mg/dL 0.00-1.30 [facility] CBC W/Diff, Automatedon 06-14 Absolute Lymph 2.83 X10 3/uL Normal 0.83-4.51 [facility] Comment on above: Performed By: #### L 500.4050, L100.0100 ####[facility] [address] [place], [address] Absolute Neut 4.3 X10 3/uL Normal 2.0-7.7 [facility] Comment on above: Performed By: #### L 500.4050, L100.0100 ####[facility] [address] [place], [address] Basophils/100 WBC (Bld) 0.6 % Normal 0-1 [facility] Comment on above: Performed By: #### L 500.4050, L100.0100 ####[facility] [address] [place], [address] Eosinophils/100 WBC (Bld) 3.9 % Normal 0-5 [facility] Comment on above: Performed By: #### L 500.4050, L100.0100 ####[facility] [address] [place], [address] Erythrocyte distribution width (RBC) [Ratio] 13.2 % Normal 11.6-14.6 [facility] Comment on above: Performed By: #### L 500.4050, L100.0100 ####[facility] [address] [place], [address] Hematocrit (Bld) [Volume fraction] 36.4 % Low 40-54 [facility] Comment on above: Performed By: #### L 500.4050, L100.0100 ####[facility] [address] [place], [address] Hemoglobin (Bld) [Mass/Vol] 12.1 g/dL Low 13.0-16.5 [facility] Comment on above: Performed By: #### L 500.4050, L100.0100 ####[facility] [address] [place], [address] IG% 0.400 Normal 0.0-0.9 [facility] Comment on above: Result Comment: IG% - Immature Granulocytes (promyelocytes, myelocytes and metamyelocytes) > 1% indicates that a LEFT SHIFT is Present. Performed By: #### L 500.4050, L100.0100 ####[facility] [address] [place], [address] Lymphocytes/100 WBC (Bld) 33.9 % Normal 19-41 [facility] Comment on above: Performed By: #### L 500.4050, L100.0100 ####[facility] [address] [place], [address] MCH (RBC) [Entitic mass] 30.0 pg Normal 27.0-32.0 [facility] Comment on above: Performed By: #### L 500.4050, L100.0100 ####[facility] [address] [place], [address] MCHC (RBC) [Mass/Vol] 33.2 g/dL Normal 32-36 [facility] Comment on above: Performed By: #### L 500.4050, L100.0100 ####[facility] [address] [place], [address] MCV (RBC) [Entitic vol] 90.1 fL Normal 80-94 [facility] Comment on above: Performed By: #### L 500.4050, L100.0100 ####[facility] [address] [place], [address] Monocytes/100 WBC (Bld) 9.9 % Normal 0-10 [facility] Comment on above: Performed By: #### L 500.4050, L100.0100 ####[facility] [address] [place], [address] Neutrophils/100 WBC (Bld) 51.3 % Normal 47-70 [facility] Comment on above: Performed By: #### L 500.4050, L100.0100 ####[facility] [address] [place], [address] Nucleated RBC (Bld) [#/Vol] 0 10*3/uL Normal 0-5 [facility] Comment on above: Performed By: #### L 500.4050, L100.0100 ####[facility] [address] [place], [address] Platelet mean volume (Bld) [Entitic vol] 9.1 fL Normal 6.2-12.0 [facility] Comment on above: Performed By: #### L 500.4050, L100.0100 ####[facility] [address] [place], [address] Platelets (Bld) [#/Vol] 262 10*3/uL Normal 150-450 [facility] Comment on above: Performed By: #### L 500.4050, L100.0100 ####[facility] [address] [place], [address] RBC (Bld) [#/Vol] 4.04 10*6/uL Low 4.6-6.2 [facility] Comment on above: Performed By: #### L 500.4050, L100.0100 ####[facility] [address] [place], [address] RDW SD 43.8 fl Normal 35.1-43.9 [facility] Comment on above: Performed By: #### L 500.4050, L100.0100 ####[facility] [address] [place], [address] WBC (Bld) [#/Vol] 8.4 10*3/uL Normal 4.4-11.0 [facility] Comment on above: Performed By: #### L 500.4050, L100.0100 ####[facility] [address] [place], [address] Carbon dioxide, total [Moles /volume] in Central venous bloodOrdered By: Simone Collins on 06-28-2025 CO2 [Moles/Vol] 24.9 mmol/L 21.0-32.0 [facility] Chloride assayOrdered By: Yoon Collins on 06-28-2025 Chloride [Moles/Vol] 102 mmol/L 98-108 [facility] Comprehensive Metabolic Prof ilon 06-28-2025 Albumin [Mass/Vol] 3.7 g/dL Normal 3.4-4.8 [facility] Comment on above: Performed By: #### L 500.4050, L100.0100 ####[facility] [address] [place], [address] Albumin/Globulin [Mass ratio] 1.3 {ratio} Normal 0.9-2.4 [facility] Comment on above: Performed By: #### L 500.4050, L100.0100 ####[facility] [address] [place], [address] ALK PHOS 71 U/L Normal 40-129 [facility] Comment on above: Performed By: #### L 500.4050, L100.0100 ####[facility] [address] [place], [address] ALT [Catalytic activity/Vol] 5 U/L Normal <=46 [facility] Comment on above: Performed By: #### L 500.4050, L100.0100 ####[facility] [address] [place], [address] AST [Catalytic activity/Vol] 17 U/L Normal <=37 [facility] Comment on above: Performed By: #### L 500.4050, L100.0100 ####[facility] [address] [place], [address] Bilirubin [Mass/Vol] 0.46 mg/dL Normal 0.00-1.30 [facility] Comment on above: Performed By: #### L 500.4050, L100.0100 ####[facility] [address] [place], [address] BUN/CRE 13.4 RATIO Normal 10-20 [facility] Comment on above: Performed By: #### L 500.4050, L100.0100 ####[facility] [address] [place], [address] Calcium [Mass/Vol] 9.0 mg/dL Normal 7.6-11.0 [facility] Comment on above: Performed By: #### L 500.4050, L100.0100 ####[facility] [address] [place], [address] Chloride [Moles/Vol] 102 mmol/L Normal 98-108 [facility] Comment on above: Performed By: #### L 500.4050, L100.0100 ####[facility] [address] [place], [address] CO2 [Moles/Vol] 24.9 mmol/L Normal 21.0-32.0 [facility] Comment on above: Performed By: #### L 500.4050, L100.0100 ####[facility] [address] [place], [address] Creatinine [Mass/Vol] 1.17 mg/dL Normal 0.70-1.20 [facility] Comment on above: Performed By: #### L 500.4050, L100.0100 ####[facility] [address] [place], [address] ECRCL 47.91 ml/min Low 50-250 [facility] Comment on above: Performed By: #### L 500.4050, L100.0100 ####[facility] [address] [place], [address] GAP 10 Normal 5-15 [facility] Comment on above: Performed By: #### L 500.4050, L100.0100 ####[facility] [address] [place], [address] GFR/1.73 sq M.predicted among non-blacks MDRD (S/P/Bld) [Vol rate/Area] 63 mL/min/{1.73_m2} Normal >60 [facility] Comment on above: Result Comment: mL/m in/1.73m2 CKD-EPI Creatinine Equation (2020) Performed By: #### L 500.4050, L100.0100 ####[facility] [address] [place], [address] Globulin (S) [Mass/Vol] 2.8 g/dL Normal 2.2-4.2 [facility] Comment on above: Performed By: #### L 500.4050, L100.0100 ####[facility] [address] [place], [address] Glucose [Mass/Vol] 101 mg/dL High 70-99 [facility] Comment on above: Performed By: #### L 500.4050, L100.0100 ####[facility] [address] [place], [address] Potassium [Moles/Vol] 3.7 mmol/L Normal 3.3-5.1 [facility] Comment on above: Performed By: #### L 500.4050, L100.0100 ####[facility] [address] [place], [address] Sodium [Moles/Vol] 137 mmol/L Normal 133-145 [facility] Comment on above: Performed By: #### L 500.4050, L100.0100 ####[facility] [address] [place], [address] T PROT 6.5 g/dL Normal 5.9-8.4 [facility] Comment on above: Performed By: #### L 500.4050, L100.0100 ####[facility] [address] [place], [address] Urea nitrogen [Mass/Vol] 16 mg/dL Normal 4-19 [facility] Comment on above: Performed By: #### L 500.4050, L100.0100 ####[facility] [address] [place], [address] Eosinophil percentageOrdered By: Simone Collins on 06-28-2025 Eosinophils/100 WBC (Bld) 3.9 % 0-5 [facility] Erythrocyte distribution wid th ratioOrdered By: Simone Collins on 06-28-2025 Erythrocyte distribution width (RBC) [Ratio] 13.2 % 11.6-14.6 [facility] Erythrocyte distribution wid th standard deviationOrdered By: Simone Collins on 06-28-2025 Erythrocyte distribution width (RBC) [Ratio] 43.8 fl 35.1-43.9 [facility] Glomerular filtration rate ( GFR) estimation/1.73 sq m using serum, plasma, or whole bOrdered By: Simone Collins on 06-28-2025 GFR/1.73 sq M.predicted among non-blacks MDRD (S/P/Bld) [Vol rate/Area] 63 mL/min/{1.73_m2} >60 [facility] Comment on above: mL/min/1.73m2 CKD-EP I Creatinine Equation (2020) Hematocrit Auto (Bld) [Volum e fraction]Ordered By: Simone Collins on 06-28-2025 Hematocrit (Bld) [Volume fraction] 36.4 % Low 40-54 [facility] Hemoglobin measurementOrdere d By: Simone Collins on 06-28-2025 Hemoglobin (Bld) [Mass/Vol] 12.1 g/dL Low 13.0-16.5 [facility] Immature granulocytes/100 WB C Auto (Bld)Ordered By: Simone Collins on 06-28-2025 Immature granulocytes/100 WBC (Bld) 0.400 % 0.0-0.9 [facility] Comment on above: IG% - Immature Granu locytes (promyelocytes, myelocytes and metamyelocytes) > 1% indicates that a LEFT SHIFT is Present. Laboratory - Chemistry and C hemistry - challengeOrdered By: Simone Collins on 06-28-2025 AST [Catalytic activity/Vol] 17 U/L <38 [facility] MCV (mean corpuscular volume ) determinationOrdered By: Simone [facility] on 06-28-2025 MCV (RBC) [Entitic vol] 90.1 fL 80-94 [facility] Mean corpuscular hemoglobin (MCH) determinationOrdered By: Simone [facility] 06-28-2025 MCH (RBC) [Entitic mass] 30.0 pg 27.0-32.0 [facility] Mean corpuscular hemoglobin concentration (MCHC) determinationOrdered By: Simone Collins on 06-28-2025 MCHC (RBC) [Mass/Vol] 33.2 g/dL 32-36 [facility] Mean platelet volume determi nationOrdered By: [facility] on 06-28-2025 Platelet mean volume (Bld) [Entitic vol] 9.1 fL 6.2-12.0 [facility] Monocyte percentageOrdered B y: [facility] on 06-28-2025 Monocytes/100 WBC (Bld) 9.9 % 0-10 [facility] Neutrophil percentageOrdered By: [facility] on 06-28-2025 Neutrophils/100 WBC (Bld) 51.3 % 47-70 [facility] Nucleated red blood cell per centageOrdered By: [facility] on 06-28-2025 Nucleated RBC/100 WBC (Bld) [Ratio] 0 % 0-5 [facility] Oncology Visit Reporton 06-14 Oncology Visit Report [facility] [place] [facility] [address] [place] [address] OFFICE VISIT Date of Service: 06/28/25 1502 MR#: [id number] Acct: [id number] Name: GLENN PARADA DEV Rep #: [id number] : 1945 From: Jayashree Anderson NP GRILL CHEF -C Age/Sex: 80/M Location: [facility] [place] Status: Signed HPI Subjective Date of Service 06/28/25 Chief Complaint Chemotherapy Education- carboplatin/paclitaxel History of Present Illness 80-year-old man with Parkinson's disease presented with sore throat. He was found to have left tonsillar mass. CT scan of the neck on 05/03/2025 showed left tonsillar mass 3.2 cm, necrotic level 2 node 1.4 cm and additional nodes in level 2 and 3. He was referred to Dr. Sanchez at [facility], had left tonsil biopsy on 05/28/2025, pathology showed Invasive squamous cell carcinoma, HPV positive. Chemoradiation therapy was suggested as definitive treatment. Interval History The patient is presenting to clinic accompanied by spouse to discuss chemotherapy, carboplatin/paclitaxel. Appetite good, meats limited to chicken and ground beef, otherwise no dysphagia limiting nutritional intake. Performs self care ADLs independently. + Neuropathy involving feet bilat. [facility] Medical History (Updated 06/28/25 @ 15:30 by Jayashree Anderson GRILL CHEF, GRILL CHEF-C) Encounter for education Wears glasses Cancer Alcohol use History of steroid therapy Thyroid disease Uses wheelchair Arthritis Prostate disease Low iron DVT (deep venous thrombosis) Back pain Migraine headache Parkinson's disease Orthostatic hypotension Syncope Dietary restriction History of diverticulitis Gastric reflux Chronic cough Former smoker History of pain when walking History of stress test History of echocardiogram Cardiology follow-up encounter Celiac disease Surgical History Hx of right cataract extraction Hx of left cataract extraction Hx of eye surgery History of hydrocelectomy Hx of hernia repair Hx of colonoscopy Family History Brother Cancer THROAT Mother Leukemia Sister Breast cancer Social History household members: significant other housing: house current occupational status: retired Smoking Status: Former smoker alcohol intake: never substance use type: does not use ROS ROS Narrative Negative except as documented in the interval HPI Intake Vital Signs 06/22/25 08:24 06/28/25 15:02 Height 5 ft 8 in 5 ft 8 in Weight: 157 lb 9 oz 157 lb 1 oz BMI 23.9 23.8 BP 96/60 130/80 H Blood Pressure Location Lt brachial Lt brachial Position Sitting Sitting Respiration 16 18 Pulse 84 76 Pulse Source Monitor Monitor Temp 98.3 F 98.2 F Temperature Source Temporal Artery Temporal Artery Pulse Oximetry (%) 97 98 Oxygen Delivery Method room air room air Intake Is patient in pain?: No Allergies gluten Allergy (Verified 06/28/25 15:06) Abd cramps/diarrhea aripiprazole Adverse Reaction (Verified 06/28/25 15:06) unknown haloperidol Adverse Reaction (Verified 06/28/25 15:06) unknown metoclopramide Adverse Reaction (Verified 06/28/25 15:06) unknown olanzapine Adverse Reaction (Verified 06/28/25 15:06) unknown prochlorperazine Adverse Reaction (Verified 06/28/25 15:06) unknown promethazine Adverse Reaction (Verified 06/28/25 15:06) unknown Medications ???Medication ???Instructions ???Recorded ???Confirmed ???Type levothyroxine 50 mcg tablet 50 mcg PO QDAY 03/05/24 06/28/25 H istory omeprazole 40 mg capsule,delayed 40 mg PO QDAY 03/05/24 06/28/25 Hi story release tamsulosin 0.4 mg capsule 0.4 mg PO BID 03/05/24 06/28/25 Hi story prucalopride 2 mg tablet 2 mg PO DAILY 05/09/24 06/28/25 Hi story (Motegrity) carbidopa ER 25 mg-levodopa 100 mg 1 tab PO .qid 06/10/25 06/28/25 History tablet,extended release fludrocortisone 0.1 mg tablet 0.1 mg PO QDAY 06/17/25 06/28/25 H istory lidocaine-prilocaine 2.5 %-2.5 % 1 applic topical ONCE PRN port 06/28/25 Rx topical cream access 30 days #30 grams ondansetron 8 mg disintegrating 8 mg PO Q8H PRN nausea and 5 06/28/25 Rx tablet vomiting #30 tabs Have you fallen in the past year?: No Central Venous Access Central Venous Access: No Laboratory Tests 06/28/25 14:31 WBC 8.4 Hgb 12.1 L Hct 36.4 L Plt Count 262 Absolute Neuts (auto) 4.3 Sodium 137 Potassium 3.7 Chloride 102 Carbon Dioxide 24.9 BUN 16 Creatinine 1.17 Calcium 9.0 Total Bilirubin 0.46 AST 17 ALT 5 Alkaline Phosphatase 71 Albumin 3.7 Exam Physical Exam Narrative ECOG 1 Const alert, oriented x3 (more content not included)... Normal [facility] Platelet countOrdered By: Yoon Collins on 06-28-2025 Platelets (Bld) [#/Vol] 262 10*3/uL 150-450 [facility] Potassium measurement (mass/ volume)Ordered By: Simone Collins on 06-28-2025 Potassium (Unsp spec) [Mass/Vol] 3.7 mmol/L 3.3-5.1 [facility] RBC Auto (Bld) [#/Vol]Ordere d By: Simone Collins on 06-28-2025 RBC (Bld) [#/Vol] 4.04 10*6/uL Low 4.6-6.2 [facility] Serum creatinine measurement (mass/volume)Ordered By: Simone Collins on 06-28-2025 Creatinine [Mass/Vol] 1.17 mg/dL 0.70-1.20 [facility] Serum globulin measurementOr dered By: Simone Collins on 06-28-2025 Globulin (S) [Mass/Vol] 2.8 g/dL 2.2-4.2 [facility] Serum glucose measurement (m ass/volume)Ordered By: Simone Collins on 06-28-2025 Glucose [Mass/Vol] 101 mg/dL High 70-99 [facility] Serum or plasma alanine macias otransferase (ALT) measurementOrdered By: Simone Collins on 06-28-2025 ALT [Catalytic activity/Vol] 5 U/L <47 [facility] Serum or plasma albumin shanita urement (mass/volume)Ordered By: Simone Collins on 06-28-2025 Albumin [Mass/Vol] 3.7 g/dL 3.4-4.8 [facility] Serum or plasma albumin/glob ulin mass ratioOrdered By: Simone Collins on 06-28-2025 Albumin/Globulin [Mass ratio] 1.3 {ratio} 0.9-2.4 [facility] Serum or plasma alkaline tobin sphatase measurementOrdered By: Simone Collins on 06-28-2025 ALP [Catalytic activity/Vol] 71 U/L 40-129 [facility] Serum or plasma calcium shanita urement (mass/volume)Ordered By: Simone Collins on 06-28-2025 Calcium [Mass/Vol] 9.0 mg/dL 7.6-11.0 [facility] Serum or plasma urea nitroge n measurement (mass/volume)Ordered By: Simone Collins on 06-28-2025 Urea nitrogen [Mass/Vol] 16 mg/dL 4-19 [facility] Sodium levelOrdered By: Smooth Collins on 06-28-2025 Sodium [Moles/Vol] 137 mmol/L 133-145 [facility] Total proteinOrdered By: John Collins on 06-28-2025 Protein [Mass/Vol] 6.5 g/dL 5.9-8.4 [facility] White blood cell (WBC) count Ordered By: Simone Collins on 06-28-2025 WBC (Bld) [#/Vol] 8.4 10*3/uL 4.4-11.0 [facility] MR/PAT.POon 06-24-2025 MR/PAT.[facility] Medical Records Department [address] [place] [address] PAT - Anesthesia 06/24/2546 MR#: [id number] Acct: [id number] Name: GLENN PARADA DEV Rep #: [id number] : 1945 80 From: Romaine Wood MD PCP: Dr. 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 When Was Last Pacemaker Check QUESTION #4 FULL TEXT: You/Your Family Experience fever (hyperthermia) with Anesthesia Last Oral Intake Last Oral intake: Last Oral Intake NPO since Meds taken in AM with sips of water? Meds patient instructed to take am of surgery PONV PONV - silk screen processor: PONV - silk screen processor Female No 06/24/25 08:12 HX of Motion Sickness No 06/24/25 08:12 HX of N/V After Surgery No 06/24/25 08:12 Non-Smoker Yes 06/24/25 08:12 Duration of Surgery greater Yes 06/24/25 08:12 than 60 minutes Number of Risk Factors 2 06/24/25 08:12 PONV Score Moderate Risk 06/24/25 08:12 Height Weight Height Weight: Anesthesia: Height Weight Height 5 ft 8 in 06/21/25 13:38 Respiratory Assessment Respiratory Assessment - silk screen processor: Respiratory Tract Infection Hx - silk screen processor Hx Respiratory Tract Infection No 06/24/25 08:12 STOP Sleep Apnea STOP Sleep Apnea - silk screen processor: STOP Sleep Apnea - silk screen processor Hx Hypertension No 06/24/25 08:12 Hx Sleep Apnea No 06/24/25 08:12 CPAP BIPAP Do you snore loudly (louder Yes 06/24/25 08:12 than talking or can be heard Do you often feel tired/ Yes 06/24/25 08:12 fatigued/ sleepy during daytime? Has anyone observed you stop No 06/24/25 08:12 breathing during sleep? STOP Results Positive 06/24/25 08:12 QUESTION #5 FULL TEXT : Do you snore loudly (louder than talking or can be heard through closed doors)? 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 Specify any problems Hx of Preganancy in last 3 N/A 06/24/25 08:12 Months Nurse Filling Out Transfusion DSCHRIBER 06/24/25 08:12 Questions: Date: 06/24/25 06/24/25 08:12 Time: 08:13 06/24/25 08:12 Patient unable to answer at this time (ie. confused, unrespo /Reproduction History /Reproductive History - silk screen processor: /Reproductive Hx- silk screen processor Hx Now No 06/24/25 08:12 Gestational Age (in weeks): EDC: Hx Hx Para Hx Section SAB No 06/24/25 08:12 [facility] Medical History (Updated 06/24/25 @ 08:23 by Jael Nathan) Wears glasses Cancer Alcohol use History of steroid therapy Thyroid disease Uses wheelchair Arthritis Prostate disease Low iron DVT (deep venous thrombosis) Back pain Migraine headache Parkinson's disease Orthostatic hypotension Syncope Dietary restriction History of diverticulitis Gastric reflux Chronic cough Former smoker History of pain when walking History of stress test History of echocardiogram Cardiology follow-up encounter Celiac disease Home Medications ???Medication ???Instructions ???Recorded ???Last Taken ???Type levothyroxine 50 mcg tablet 50 mcg PO QDAY 03/05/24 Unknown Hi story omeprazole 40 mg capsule,delayed 40 mg PO QDAY 03/05/24 Unknown His tory release tamsulosin 0.4 mg capsule 0.4 mg PO BID 03/05/24 Unknown His tory pruca (more content not included)... 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 History of Present Illness 80-year-old man with Parkinson's disease presented with sore throat. He was found to have left tonsillar mass. CT scan of the neck on 05/03/2025 showed left tonsillar mass 3.2 cm, necrotic level 2 node 1.4 cm and additional nodes in level 2 and 3. He was referred to Dr. Sanchez at [facility], had left tonsil biopsy on 05/28/2025, pathology showed Invasive squamous cell carcinoma, HPV positive. Chemoradiation therapy was suggested as definitive treatment. He lives with his , does all his ADLs. [facility] Medical History Celiac disease Surgical History History of hernia repair Family History Brother Cancer THROAT Mother Leukemia Sister Breast cancer Social History household members: significant other housing: house current occupational status: retired Smoking Status: Former smoker alcohol intake: never substance use type: does not use ROS Constitutional Constitutional: Reports systems reviewed and no addt'l complaints, except as documented Eyes Eyes: Reports systems reviewed and no addt'l complaints, except as documented ENT HEENT: Reports systems reviewed and no addt'l complaints, except as documented Cardiovascular Cardiovascular: Reports systems reviewed and no addt'l complaints, except as documented Respiratory/Chest Respiratory/Chest: Reports systems reviewed and no addt'l complaints, except as documented Gastrointestinal Gastrointestinal: Reports systems reviewed and no addt'l complaints, except as documented Genitourinary Genitourinary: Reports systems reviewed and no addt'l complaints, except as documented Musculoskeletal Musculoskeletal: Reports systems reviewed and no addt'l complaints, except as documented Integumentary Integumentary: Reports systems reviewed and no addt'l complaints, except as documented Neurologic Neurologic: Reports systems reviewed and no addt'l complaints, except as documented Psychiatric Psychiatric: Reports systems reviewed and no addt'l complaints, except as documented Endocrine Endocrinology: Reports systems reviewed and no addt'l complaints, except as documented Hematologic/Lymphatic Hematologic/Lymphatic: Reports systems reviewed and no addt'l complaints, except as documented Allergic/Immunologic Allergic/Immunologic: Reports systems reviewed and no addt'l complaints, except as documented Intake Vital Signs 12/26/24 17:15 06/21/25 13:38 06/22/25 08:24 Height 5 ft 8 in 5 ft 8 in 5 ft 8 in Weight: 71.469 kg BMI 23.9 BP 96/60 Blood Pressure Location Lt brachial Position Sitting Respiration 16 Pulse 84 Pulse Source Monitor Temp 98.3 F Temperature Source Temporal Artery Pulse Oximetry (%) 97 Oxygen Delivery Method room air Intake Is patient in pain?: No Allergies gluten Allergy (Verified 06/22/25 08:28) Abd cramps/diarrhea aripiprazole Adverse Reaction (Verified 06/22/25 08:28) unknown haloperidol Adverse Reaction (Verified 06/22/25 08:28) unknown metoclopramide Adverse Reaction (Verified 06/22/25 08:28) unknown olanzapine Adverse Reaction (Verified 06/22/25 08:28) unknown prochlorperazine Adverse Reaction (Verified 06/22/25 08:28) unknown promethazine Adverse Reaction (Verified 06/22/25 08:28) unknown Medications ???Medication ???Instructions ???Recorded ???Confirmed ???Type levothyroxine 50 mcg tablet 50 mcg PO QDAY 03/05/24 06/22/25 H istory omeprazole 40 mg capsule,delayed 40 mg PO QDAY 03/05/24 06/22/25 Hi story release tamsulosin 0.4 mg capsule 0.4 mg PO BID 03/05/24 06/22/25 Hi story prucalopride 2 mg tablet 2 mg PO DAILY 05/09/24 06/22/25 Hi story (Motegrity) carbidopa ER 25 mg-levodopa 100 mg 1 tab PO .qid 06/10/25 06/22/25 History tablet,extended release peg 3350-electrolytes 236 ml PO PRN constipation 06/10/25 History gram-22.74 gram-6.74 gram-5.86 gram solution fludrocortisone 0.1 mg tablet 0.1 mg PO QDAY 06/17/25 06/22/25 H istory Have you fallen in the past year?: No Central Venous Access Central Venous Access: No 06/15/2025 PET/CT reviewed. PET/PET/CT Tumor Base -Thigh Init IMPRESSION: 1. Centrally necrotic hypermetabolic activity in the left palatine tonsil consist (more content not included)... Normal [facility] Surgery Visit Reporton 06-21 Surgery Visit Report [facility] [address] [place], [place] [address]. [address] [place] [address] OFFICE VISIT Date of Service: 06/21/25 MR#: [id number] Acct: [id number] Name: GLENN PARADA DEV Rep #: [id number] : 1945 Provider: Dr. Kalyn prakash MD Age/Sex: 80/M Location: [facility] Status: Signed Intake Vital Signs 06/17/25 13:42 06/18/25 10:30 06/21/25 13:38 Height 5 ft 8 in 5 ft 8 in 5 ft 8 in Weight: 158 lb 4 oz 160 lb 2 oz BMI 24.0 24.3 BP 88/59 L 105/66 Blood Pressure Location Lt brachial Rt brachial Position Sitting Sitting Respiration 16 17 Pulse 82 98 Pulse Source Monitor Monitor Temp 96.6 F L Pulse Oximetry (%) 97 99 Oxygen Delivery Method room air room air Intake Visit Reasons: PORT AND PEG Chief Complaint: port and peg Is patient in pain?: No Allergies gluten Allergy (Verified 06/21/25 13:39) Abd cramps/diarrhea aripiprazole Adverse Reaction (Verified 06/21/25 13:39) unknown haloperidol Adverse Reaction (Verified 06/21/25 13:39) unknown metoclopramide Adverse Reaction (Verified 06/21/25 13:39) unknown olanzapine Adverse Reaction (Verified 06/21/25 13:39) unknown prochlorperazine Adverse Reaction (Verified 06/21/25 13:39) unknown promethazine Adverse Reaction (Verified 06/21/25 13:39) unknown Medications ???Medication ???Instructions ???Recorded ???Confirmed ???Type levothyroxine 50 mcg tablet 50 mcg PO QDAY 03/05/24 06/21/25 H istory omeprazole 40 mg capsule,delayed 40 mg PO QDAY 03/05/24 06/21/25 Hi story release tamsulosin 0.4 mg capsule 0.4 mg PO BID 03/05/24 06/21/25 Hi story prucalopride 2 mg tablet 2 mg PO DAILY 05/09/24 06/21/25 Hi story (Motegrity) carbidopa ER 25 mg-levodopa 100 mg 1 tab PO .qid 06/10/25 06/21/25 History tablet,extended release peg 3350-electrolytes 236 ml PO PRN constipation 06/10/25 History gram-22.74 gram-6.74 gram-5.86 gram solution fludrocortisone 0.1 mg tablet 0.1 mg PO QDAY 06/17/25 06/21/25 H istory Have you fallen in the past year?: No PFSH Medical History (Updated 06/21/25 @ 13:37 by Joan Wolff) Celiac disease Surgical History History of hernia repair Family History Brother Cancer THROAT Mother Leukemia Sister Breast cancer Social History household members: significant other housing: house current occupational status: retired Smoking Status: Former smoker alcohol intake: never substance use type: does not use HPI HPI HPI: 80-year-old male presents for port and PEG placement due to squamous cell carcinoma of the oropharynx, 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 Patient's treatment may start 06/30 or 07/05. Patient has an upcoming appointment with oncology. ROS General General: Yes weight change (loss) and fatigue; No appetite, colon cancer or breast cancer HEENT HEENT: Yes eye surgery and swollen glands; No difficulty swallowing, eye injury or hoarseness Endo Endocrine: Yes thyroid disease; No diabetes mellitus, thyroid cancer, Hair loss, heat intolerance or cold intolerance Skin Skin: No rash or changing moles Musc Musculoskeletal: Yes back problems and arthritis; No rheumatoid arthritis, gout or joint pain Cardio Cardiovascular: No murmur, pacemaker, heart disease, atrial fibrillation, high blood pressure, heart attack, heart stent, palpitations, shortness of breath with exertion or chest pain Psych Psychiatric: No depression, anxiety or hearing voices Resp Respiratory: No shortness of breath, No sleep apnea, Yes cough, No COPD, No asthma, No emphysema and No wheezing Gastro Gastrointestinal: No abdominal pain, No nausea or vomiting, No diarrhea, Yes constipation, No blood in stool, Yes acid reflux, No hemorrhoids, No ulcers, No gallbladder problem and No black,tarry stools Yevgeniy Hematologic: No blood thinners, No blood disorders, No bleeding, No anemia and No blood clots Neuro Neurologic: No numbness and No tingling Exam Const General: cooperative, healthy appearing, comfortable and no acute distress [facility] Head: normocephalic and atraumatic Neck Neck: supple Chest Other: Palpation of bilateral upper chest normal Resp Effort Inspection: normal respiratory effort Cardio Rate: regular rate GI Inspection: non-distended Palpation: soft and nontender Skin General: no rashes or lesions noted Neuro General: CN's II-XI intact bilaterally Extrem General: normal to inspection Psych Mental Status: mental status grossly normal Attitude: cooperative Assessment and Plan Assessment and Plan (1) Encounter for insertion of venous access port: Status: Acute (2) Encounter for P (more content not included)... Normal [facility] Positron emission tomography scan reportOrdered By: Russell Bellamy on 06-18-2025 PT Unspecified body region [facility] Imaging Services [address] [place], [place] [address] PET/CT Tumor Base -Thigh Init MR#: [id number] Acct: [id number] Name: GLENN PARADA DEV Rep #: [id number] : 1945 M 80 From: Danilo Bellamy MD PCP: Dr. 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 Left level 2 and level 3 lymphadenopathy. TECHNIQUE: Procedure Code: PETPTCTINIT Modality: PT Procedure: PET/CT TUMOR BASE -THIGH INIT After intravenous injection of 13.9 millicuries of FDG and a standard uptake period, a noncontrast CT scan, followed by a PET scan were acquired along the length of the body from the base of the skull to the mid thighs. The noncontrast helical CT imaging was performed without breath hold, for attenuation correction of PET images and anatomic correlation, but not for primary interpretation, as it is not of the standard diagnostic quality. Images were reviewed in the axial, coronal and sagittal planes. RADIATION DOSE SUMMARY: Effective Dose: Approximately 7 mSv for a standard whole-body PET scan CTDI: 7.95 mGy DLP: 780.9 mGy cm COMPARISON: COMPARISON FROM CT, PET OR OTHER PERTINENT EXAMS: CT soft tissue neck with contrast, 05/03/2025. FINDINGS: Physiologic uptake: There may be expected metabolic uptake within the brain, tongue and floor of the mouth and larynx/vocal cords, heart, dina (many normal individuals have hilar uptake in less than 3 nodes with mildly avid hilar nodes less than 2.7 SUV), liver and spleen, system, and GI tract and symmetric muscle uptake. FDG AVID AND NON-AVID LESIONS. Reported avid SUV values (g/mL) are maximum SUV. Head and neck: There is a normal distribution of FDG activity in the visualized brain parenchyma. There is a centrally necrotic, hypermetabolic mass, centered in the left palatine tonsil, measuring 5.6 x 3.8 x2.7 cm, max SUV 15.0. The mass extends superiorly and anteriorly into the base of the tongue, on the left. Inferiorly,the mass extends just proximal to the left aryepiglottic fold. There is hypermetabolic left level 2 lymphadenopathy, measuring 3.8 cm in vertical dimension and 1.6 x 0.8 cm in greatest axial dimension, max SUV 11.5. There is calcific vascular disease of both carotid bifurcations. There is nasal septal deviation to the right. There is a right-sided nasal spur. Chest: There is moderate upper lobe predominant centrilobular emphysema. There is basilar predominant interstitial lung disease with subpleural reticulation. There is a calcified granuloma in the right lung base. There are no pleural effusions. The heart size is normal. There is no pericardial effusion. There is calcific vascular disease of the thoracic aorta and coronary arteries. There is a 13 x 8 mm soft tissue density nodule demonstrating hypermetabolic activity, max SUV 5.2, in the soft tissue between the left 2nd and 3rd rib. There is no hypermetabolic mediastinal, hilaror axillary lymphadenopathy. Abdomen and pelvis: There is a small hiatal hernia. There is calcific vascular disease of the abdominal aorta. There are benign cortical cysts in the left kidney. There is stool throughout the colon. The prostate gland measures 5.4 cm in transverse dimension. There is no focal hypermetabolic activity within the prostate gland. There is a normal distribution of FDG activity within the gastrointestinal and genitourinary tract. There is no hypermetabolic lymphadenopathy identified. Musculoskeletal: There are no suspicious hypermetabolic osteolytic or osteosclerotic lesions. There is increased physiologic activity in the paraspinal muscles of the neck and chest, and proximal thighs. Uptake time: 60 minutes. Hepatic blood pool: Max SUV, 2.8 Blood glucose (mg/dL): 115 BMI: 23.7 PET/PET/CT Tumor Base -Thigh Init IMPRESSION: 1. Centrally necrotic hypermetabolic activity in the left palatine tonsil consistent with squamous cell carcinoma. 2. Contiguous left level 2 and 3 hypermetabolic cervical lymphadenopathy consistent with metastatic disease. 3. Soft tissue nodule demonstrating hypermetabolic activity in the left chest posteriorly, between the 2nd and 3rd rib, suspicious for metastatic disease. 4. Prostatomegaly without abnormal activity. 5. Other findings as noted. Reading Location[id number] CC: Reta Sanchez MD; Dr. Eloina Chi MD ~ Farm Management Adviser: Signed [facility] Work Phone: Radiation Oncology Visiton 0 06-17-2025 Radiation Oncology Visit [facility] [address] [place] [address] OFFICE VISIT Date of Service: 06/17/25 1330 MR#: [id number] Acct: [id number] Name: GLENN PARADA DEV Rep #: [id number] : 1945 From: En Guerin DO Age/Sex: 80/M Location: [facility] Status: Signed Intake Vital Signs 12/26/24 17:15 06/17/25 13:42 Height 5 ft 8 in 5 ft 8 in Weight: 158 lb 4 oz BMI 24.0 BP 88/59 L Blood Pressure Location Lt brachial Position Sitting Respiration 16 Pulse 82 Pulse Source Monitor Temp 96.6 F L Temperature Source Temporal Artery Pulse Oximetry (%) 97 Oxygen Delivery Method room air Intake Is patient in pain?: No Allergies gluten Allergy (Verified 12/26/24 17:15) Abd cramps/diarrhea aripiprazole Adverse Reaction (Verified 06/10/25 10:12) unknown haloperidol Adverse Reaction (Verified 06/10/25 10:12) unknown metoclopramide Adverse Reaction (Verified 06/10/25 10:12) unknown olanzapine Adverse Reaction (Verified 06/10/25 10:12) unknown prochlorperazine Adverse Reaction (Verified 06/10/25 10:12) unknown promethazine Adverse Reaction (Verified 06/10/25 10:12) unknown Medications ???Medication ???Instructions ???Recorded ???Confirmed ???Type levothyroxine 50 mcg tablet 50 mcg PO QDAY 03/05/24 06/17/25 H istory omeprazole 40 mg capsule,delayed 40 mg PO QDAY 03/05/24 06/17/25 Hi story release tamsulosin 0.4 mg capsule 0.4 mg PO BID 03/05/24 06/17/25 Hi story prucalopride 2 mg tablet 2 mg PO DAILY 05/09/24 06/17/25 Hi story (Motegrity) carbidopa ER 25 mg-levodopa 100 mg 1 tab PO .qid 06/10/25 06/17/25 History tablet,extended release peg 3350-electrolytes 236 ml PO PRN constipation 06/10/25 History gram-22.74 gram-6.74 gram-5.86 gram solution fludrocortisone 0.1 mg tablet 0.1 mg PO QDAY 06/17/25 06/17/25 H istory Have you fallen in the past year?: Yes Central Venous Access Central Venous Access: [facility] Medical History (Updated 06/10/25 @ 10:10 by Cherelle Maher LPN) Celiac disease Home Medications ???Medication ???Instructions ???Recorded ???Last Taken ???Type levothyroxine 50 mcg tablet 50 mcg PO QDAY 03/05/24 Unknown Hi story omeprazole 40 mg capsule,delayed 40 mg PO QDAY 03/05/24 Unknown His tory release tamsulosin 0.4 mg capsule 0.4 mg PO BID 03/05/24 Unknown His tory prucalopride 2 mg tablet 2 mg PO DAILY 05/09/24 Unknown His tory (Motegrity) carbidopa ER 25 mg-levodopa 100 mg 1 tab PO .qid 06/10/25 Unknown H istory tablet,extended release peg 3350-electrolytes 236 ml PO PRN constipation 06/10/25 Un known History gram-22.74 gram-6.74 gram-5.86 gram solution fludrocortisone 0.1 mg tablet 0.1 mg PO QDAY 06/17/25 Unknown Hi story Allergy/AdvReac Type Severity Reaction Status Date / Time gluten Allergy Abd Verified 12/26/24 17:15 cramps/diarrhea aripiprazole AdvReac unknown Verified 06/10/25 10:12 haloperidol AdvReac unknown Verified 06/10/25 10:12 metoclopramide AdvReac unknown Verified 06/10/25 10:12 olanzapine AdvReac unknown Verified 06/10/25 10:12 prochlorperazine AdvReac unknown Verified 06/10/25 10:12 promethazine AdvReac unknown Verified 06/10/25 10:12 Family History (Updated 06/17/25 @ 13:41 by Valeria Rosas) Brother Cancer THROAT Mother Leukemia Sister Breast cancer Surgical History (Updated 06/17/25 @ 13:38 by Valeria Rosas) History of hernia repair Social History (Updated 06/17/25 @ 13:40 by Valeria Rosas) household members: significant other housing: house current occupational status: retired Smoking Status: Former smoker alcohol intake: never substance use type: does not use Referring Provider: Reta Sanchez MD Diagnosis: Glenn Parada is an 80 year-old male diagnosed with 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 History of Present Illness: 05/03/2025: Patient completed CT neck with contrast.??? This demonstrated a necrotic level 2 lymph node measuring 1.4 cm on the left.??? There is an abnormal mass in the left palatine tonsil which extends to the glossotonsillar sulcus and has some central ulceration, dimensions are about 2.4 x 3.2 cm. 05/28/2025: Patient was seen by ENT at [facility].??? On exam and NPL there was a granular ulcerative lesion within the oropharynx extending towards the glossotonsillar sulcus and into the left base of tongue.??? Difficult to visualize the vallecula on the left side, the hypopharynx and endolarynx including epiglottis and glottis were unremarkable.??? Airway is patent.??? Right vocal cord mobility n (more content not included)... Normal [facility] PET/CT Tumor Base -Thigh Ini ton 06-15-2025 PET/CT Tumor Base -Thigh Init [facility] Imaging Services [address] [place] [address] PET/CT Tumor Base -Thigh Init MR#: [id number] Acct: [id number] Name: GLENN PARADA DEV Rep #: [id number] : 1945 M 80 From: Russell Bellamy MD PCP: Dr. 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 Left level 2 and level 3 lymphadenopathy. TECHNIQUE: Procedure Code: PETPTCTINIT Modality: PT Procedure: PET/CT TUMOR BASE -THIGH INIT After intravenous injection of 13.9 millicuries of FDG and a standard uptake period, a noncontrast CT scan, followed by a PET scan were acquired along the length of the body from the base of the skull to the mid thighs. The noncontrast helical CT imaging was performed without breath hold, for attenuation correction of PET images and anatomic correlation, but not for primary interpretation, as it is not of the standard diagnostic quality. Images were reviewed in the axial, coronal and sagittal planes. RADIATION DOSE SUMMARY: Effective Dose: Approximately 7 mSv for a standard whole-body PET scan CTDI: 7.95 mGy DLP: 780.9 mGy cm COMPARISON: COMPARISON FROM CT, PET OR OTHER PERTINENT EXAMS: CT soft tissue neck with contrast, 05/03/2025. FINDINGS: Physiologic uptake: There may be expected metabolic uptake within the brain, tongue and floor of the mouth and larynx/vocal cords, heart, dina (many normal individuals have hilar uptake in less than 3 nodes with mildly avid hilar nodes less than 2.7 SUV), liver and spleen, system, and GI tract and symmetric muscle uptake. FDG AVID AND NON-AVID LESIONS. Reported avid SUV values (g/mL) are maximum SUV. Head and neck: There is a normal distribution of FDG activity in the visualized brain parenchyma. There is a centrally necrotic, hypermetabolic mass, centered in the left palatine tonsil, measuring 5.6 x 3.8 x 2.7 cm, max SUV 15.0. The mass extends superiorly and anteriorly into the base of the tongue, on the left. Inferiorly, the mass extends just proximal to the left aryepiglottic fold. There is hypermetabolic left level 2 lymphadenopathy, measuring 3.8 cm in vertical dimension and 1.6 x 0.8 cm in greatest axial dimension, max SUV 11.5. There is calcific vascular disease of both carotid bifurcations. There is nasal septal deviation to the right. There is a right-sided nasal spur. Chest: There is moderate upper lobe predominant centrilobular emphysema. There is basilar predominant interstitial lung disease with subpleural reticulation. There is a calcified granuloma in the right lung base. There are no pleural effusions. The heart size is normal. There is no pericardial effusion. There is calcific vascular disease of the thoracic aorta and coronary arteries. There is a 13 x 8 mm soft tissue density nodule demonstrating hypermetabolic activity, max SUV 5.2, in the soft tissue between the left 2nd and 3rd rib. There is no hypermetabolic mediastinal, hilar or axillary lymphadenopathy. Abdomen and pelvis: There is a small hiatal hernia. There is calcific vascular disease of the abdominal aorta. There are benign cortical cysts in the left kidney. There is stool throughout the colon. The prostate gland measures 5.4 cm in transverse dimension. There is no focal hypermetabolic activity within the prostate gland. There is a normal distribution of FDG activity within the gastrointestinal and genitourinary tract. There is no hypermetabolic lymphadenopathy identified. Musculoskeletal: There are no suspicious hypermetabolic osteolytic or osteosclerotic lesions. There is increased physiologic activity in the paraspinal muscles of the neck and chest, and proximal thighs. Uptake time: 60 minutes. Hepatic blood pool: Max SUV, 2.8 Blood glucose (mg/dL): 115 BMI: 23.7 PET/PET/CT Tumor Base -Thigh Init IMPRESSION: 1. Centrally necrotic hypermetabolic activity in the left palatine tonsil consistent with squamous cell carcinoma. 2. Contiguous left level 2 and 3 hypermetabolic cervical lymphadenopathy consistent with metastatic disease. 3. Soft tissue nodule demonstrating hypermetabolic activity in the left chest posteriorly, between the 2nd and 3rd rib, suspicious for metastatic disease. 4. Prostatomegaly without abnormal activity. 5. Other findings as noted. Reading Location: [id number] CC: Reta Sanchez MD; Dr. Eloina Chi MD Farm Management Adviser: Signed Normal [facility] Telephone Encounteron 2024 Vice President [employer] Sales Authentication Interface Message Text Error Normal [facility] Tumor Board Noteon Vice President [employer] Sales Authentication Interface Message Text Cancer Type: General [...] Eligibility for Supportive Care Services Discussed Yes [facility] Clinical Trial Eligibility Discussed NA Treatment Plan COST ESTIMATING CLERK Multidisciplinary Team in Attendance at Tumor Board Radiology - Yes Medical Oncology- Yes Pathology- Yes Radiation Oncology- Yes Surgery- Yes Tumor Board Recommendations Definitive COST ESTIMATING CLERK NCCN Requirement NCCN Requirement Fulfilled? Yes The above recommendations were based on NCCN guidelines, as well as consideration of current national standards and review of the literature. Normal [facility] PT D/C Summary (1)on 025 PT D/C Summary (1) [facility] Physical [facility] [address] [place] [address] / REHABILITATION SERVICES DISCHARGE SUMMARY MR#: [id number] Acct: [id number] Name: GLENN PARADA Rep #: [id number] : 1945 80 From: Mayra Clements MPT Referring Dr.: MARNI BOWSER Status: REG R CR Insurance: [employer] [facility] SELF PAY INSURANCE Discharge Summary D/C summary: It has been my pleasure to treat GLENN PARADA referred by MARNI BOWSER, with the diagnosis of PD for a [...] please feel free to call me at [phone]. Thank you for the referral of this patient. Sincerely, Mayra Clements, MPT Balance/Gait/Functional tests Balance/Special Test Scores Functional Gait Assessment Score: 21 % Disability: 30.0000 Lower Extremity Functional Score: 57 Improvement % Improvement: 25 06/07/25 1330 CC: Dr. Eloina Chi MD; MARNI BOWSER Signed Normal [facility] Progress Noteson 06-04-2025 Vice President Global Ad[employer] Sales Authentication Interface Message Text Documentation: Mode: Telephone Patient Patient Work Phone: Patient Cell Preferred phone: [phone] Consent: I confirmed patient understanding of the [...] Parkinson's who presents today, 06/04/2025, at [facility] for follow up regarding left oropharyngeal [...] Administered Date(s) Administered COVID-19 Vaccine (12+ yrs, [employer]) mRNA, spike protein, LNP, pres. free, 30 mcg/0.3mL dose, lola-sucrose (XOD=326) 06/22/2024 Influenza, injectable, high dose seasonal, trivalent, preservative free (BVQ=883) 06/22/2024 Tdap (LBQ=982) 12/26/2024 Pathologic Review: Final Diagnosis A. Oropharyngeal, [...] -Discussed his case with Dr. Guerin in [place] for definitive treatment and external referrals placed today -discussed the patient that he will need referrals to [facility], nutrition and dentistry and social work but this can likely be arranged with Dr. Guerin's -we will plan for follow up 2-3 months after treatment with me Thank you so much for allowing me to participate in the care of this patient. Please feel free to contact me if you have any questions or concerns. Reta Sanchez MD Bulk Truck Driver Department of Otolaryngology - Head and Neck Surgery [facility], [facility] [employer] Pager: [phone] Normal [facility] *SPECIMEN FOR SURGICAL PATHO LOGYOrdered By: Sushant Jean-Baptiste on 06-02-2025 Case Report Surgical Pathology R eport Case: [id number] Authorizing Provider: Reta Sanchez MD Collected: 05/28/2025 1400 Ordering Location: [facility] Received: 05/31/2025 1043 Otolaryngology (ENT) Pathologist: Sushant Jean-Baptiste MD Specimen: Oropharyngeal, Left tonsillar lesion [facility] Work Phone: Clinical Information [facility] Work Phone: Final Diagnosis [id number] HQupqHkxJNCeGMItKT5rpGyfmP y0yXrpKABkiaQ1cLEcICuws6zw HIZ0z4bdxegnHBOhKUfyPn9nrT YlpNfeDlYoRZStHHt5gN69UXZr aD5hePVzWGq4GCNenADvjaCnJj YaNWZhtEGzrTT3HETgEQ6ybhzm YCgfKItsVYJwjjI9VEAluJAzF2 TtMMCrKZ0jkpinINJ6VHbnPKWe CRV6PqSmCQVph5Zaxyi3LnXidP BpBVhddQSaisnfQVUhEyUuOD3v Kb5kv6PpQVQ7nchcULzxXNbhSd CpkE6cz2ksdXGuZCznc8kukpFh oORmNLKyTLSwvvZUGqRIA7oOYR kuFVUELZXTO33ALSDRICBlH0EN MA2GCSEyP5CIZBBKWFNQEV6ZOM QpATVjBRLHlM26tv7nyDX0p8Ap FQ3dl1MvdXwtVKxyBKVaaTNruX gdiyYtEUlvf4GlF5ChCuQuMKwo znZzGUTpThemwubsTQTvKYY7kx DfWXGbERrqTMMtCHgqUy1mdCUy oTowJuDhJDGty1xoalRDkkfdlY k4z1fsVOFbQcM6kSPrOFggX2uq foXlmSMfBCQyPDr9vQ58YPAxjL 6mmHNpJQwuouFjQsI5ITdeSBYi DhM9NRMhhPXpVMKfR9txWSI5YX yxiyIdmts9LZRwmMV0DLZ2JLFx OAXwY2OfDA3cZRAnbEXqLJo7k6 danDctCSKgKHJ9u5xuJNvfsuWq YP3esn2ezQc8c6umnbMtDOHvJH HmtOXMVJBeI7ZawHgcLb9fyLt8 tDvuJyoqWFA6Jhz0EN3oit19ga e2dAuoZQArtmmdIiG7YCqbNIUb pqwiHRz0WYpfAVMkpQK1EKIstU VlO5ExSBWuEW3epcv5CRC1VDsk XRHfKvO2QBMqnXDoIYXaxHgeMR ver704YYC2ShSyMT7wH8Drk1C0 pK4jmIGgGACdbPJdQfUnJUTvac 1bhNOaBJaho7ZfBEH7blL5lVPb wTRnEWQoIB50Yqtsj2WpFmmhWY K6CGHuhuWim0Amd3hjZiNozxHx N7lxX5DfBRRmRHQlQBSrKxOzxb Ciz3Rkc8IujQIvxKr6q4ksHLLi TTIrpDjrp7ifBOR8SKFhK0J0wH Aem6fgPNunSXEhtFF8tuZ5YRLw zKVmS2WubZ0jVKYnLC3uimc7o0 caVOC4MNfbTNEdEgW3itR8QEJq eGOnQONwnBvpCOxbc059CVZ8Uc UlHGCkc4XzJ8HgoVglA00nlBgp Z39vIWQrbUhbdO4jcUwxeA9hUx BcZnMyNFxxbFxwbGFpblxmMVxm ipHqCYllcjzgKDGmYIcyF1isPk SuCDYipDdaALmai5AnMXDeUNXd MjJccGFyXHBsYWluXGYxXGZzMj BcbGFuZzEwMzNcaGljaFxmMVxk EjUcQZZwBZgmX8abDwSnNtUsMO BFbGVjdHJvbmljYWxseSBTaWdu NMVaV1E8RSN8NUSmppZRdLAgWU NdWFVlsUkvGZAwr87nRDcmZvRi DkCbPS0aiPPvYIDbfvnqjDUugp keLWefwcB8PTbqgkwiMHKuMUck K6hbKcWuWTWhdWpbNOcdq0WvXN KhVIVjTjeiiuA5IWouQMWqZYP2 hWK5ZYUdPMBrDXOwBNIjt59shZ n0FZChjnK0H0RoLXD0tAIeNSvg R93ss7RuXlBfoeKptGG0dL1dNV 6gFMJlUWIbJc21YCWhdDJufA5h hcrdMDZwyeGwvYY2WHChCD4nGV QkPLQ9tFOnMylaYPzrKSmtA74x k0vsYCIeAI6sRYNuAInrNPCkKU ZzMjJcbGFuZzEwMzNcaGljaFxm MAzxNgAmPVPwISkvE2wmFcGbMb MyMlxwYXJccGFyfX0= [facility] Work Phone: Gross Description r3ajwPQqANKcwHTrPCOr MVxhbn FcERRlrGFyR2BunweeCVhuZP6g RK2zzWpbmLKbkEYnMJYuYuRbp5 lbp324hJSsa0puBRDXbirqnYi3 zEvuF59js7Z7AbpiO23ioLFoYI E0STLdKZQekZUuIHWfXHW1EJNw zFFhK0nrMLBiPI5incsbGNvaLF vdBAJnnJH4UALcrNRyN8KaZWHy TOpzYUYhjlk8VhXdRp6hiZRrcF cyMFxwYXJkXHBsYWluXGZzMjAg RM2nDTOhaNPhq1c0fE9xSBHuWJ DoTe3op3WcRKK4zbbaOTlaSzes YXIgVGhlIHNwZWNpbWVuIGlzIH HrM0DkgmLfUZIjaJGmLMmgPDTu f6gdN3leDSBtmuQlmU6prfpstX RaOWmuNQS6lTBvUOZqaKeckbHw kiTgEI9kEHAwVLSiN7DxKLTyS8 9oAVEaiD2dKPVpDMXuJJRbgQOi tJYzcZBugQ4qEVGqMNLYIEIyOW SlBNXdXflkVeRtiP7me1pufHWa DHned5hikhHbXMBDuJHrn0SkR4 vrKZ6pO96er4fuiRBmw0LaeKBs sNurfLKahOfjM9Dkbqyjf6GqvH NeMSMoRwCfvFtfp6DdCF9qXOV3 cmluZyAyLjEgeCAwLjUgeCAwLj OdM29imJ2bKFmlvhElEAZtJmCp GUesFZSqKEDblCBxFDeaKDI7Yz 6qcIUpZTQrkxF4z1QnLQntJY2z NCJuSLLqOTN5CQ3tAFjJKZ1uiF UwQFFquxGTO29srKRejA== [facility] Work Phone: Immunohistochemistry e0xjfYSrQPRmyLTmBBZ wMVxhbn IfKJUvgRBgO1XpwjbcPVjiZL7s FM9efBzkkIJpnDBoDOHiTlFup1 hks774sYHoe4pfCAUIciwdwWl8 lIieQ29wz7S0JooyQ1diJBVmHS LcK3IiWZ8kLAHnNfc7UWIaSCw2 XHBhcGVydzEyMjQwXHBhcGVyaD L3WXQgHS8zrlvvVOvxNNztDBGa bzK5QBQvjJQhN3SwMWTkHE6een ltBAF6AXpnLEMiWQJ4YcBhBTXr g4Pzizk2FqZjdIPjWYgeqXOplm slOTYbMwViDB9KNX3WXOzERG2B GFWIZRFSWpjbJ6WIOTdUBmrhmQ GhYYBiOV3bCPYWreYkszDgAGPm qQfjeo9uTCbiSEMimVIyQADwNR XbpGdhs5Y5ERAibOphDDszvYCe BCKvMnhnCUPnJbZrR5dsUY38Df BDb4OfpFw1PNfpQNOuERVhQxLO p9ZrvOl7QNzmSISmTLU9ZtWRw5 MyrOe5JWovEZYwP1coQUZ1f9Ms eXNpbjogTmVnYXRpdmUgXHBhcl bkIFZnGessQHOkcOStVLGlgX4o keI4JMRmLoOsQTzeKTetlWIcs5 oeq7UqZ9tjqPlcHMyyf0OdxP4d LOP3bHMekeGlrVycFLLkb5WpOZ LmBLtoy2Wuoh5yBQmkYJHqg2Im WZqjfXCod3tid4OkV4bnmGreGP wgs5JvyC6vDPQjORPjg09sBSli ek89YXJ1j7gqnAFeDAtvLhkglI VpfjO6AOdSGAOAIShUNpXhCG6v UXuTS6QVMFaOGzfrBVQpTHQ2IE fuwUzcZkoyenJyhGXkLcAudG2s c5QegRhyWLB8UCp7ZDYeg58pFK 6iVYO0mEuqIsWvMkSiBIB0c8Bw S6SrOJMaEZhbE76wigLcwfNwwF zmd978UNMoVMgcx4seLBIdGOgr k9BnJFcJSZWEGP5AQU7phOU6BS rGEWWALEqpMMZwZPB4XBrjcGoi BwqtbxUnxHNsKzVflW8ogUefvU 5cZnMyMCAuXHBhclxwYXJcYiBD b848cv4yzdvzKDVdAKWrBCYhjr roqNStPMupENRCODXjxJ8arR6m kNCsCBVfkhffSVTqm1YqSGddZZ T9QUAuLKIrE7GnODUVvmBjjUIy LXNwZWNpZmljIHJlYWdlbnRzIC 1yESAry5LgnI0zaZBpSHLzwL2n LHBlyAMzfZJhImQCz1LqZtblEH ZAPIIxQqKVfg9fpQN6BHo8CkTy ENg1JBMaw01muSJqyBTvkDNyKI EmfyIghV88ha6jgKW2i7XrWW8o m1QdzEA3BCBtHYEgonDdc6HzRL PgwvZrgHyujVNfwEHpZs7zeUAk I2NxD7dmudTqqLPxfXS6bCJhGV PmvEFmaLniHKSyZzejp6JnYMWq ibUzguKnQPREQMDna7qzHFx8uV TSWOHqP5FhZZVfpqZrcgryDSOt XPO6hOYqpKSzTmSQDDFwg9upX2 jcJq2enL01wpH2OT3sh3MvLpHi maQ9kbJymKmamgApTN1xETHqtv HyzPJevVPaqYaec8YpuGFvpFBl WVDrrxNrjZivLTDlXCPKx03gOI yzpVDky8zvz7WnK0ndjVzaLCib r0LriJ9bPOgsynSxta47VWGzZB 8sG2xqEQAsMAJmiyLdaLQlu4Gp MQQluCC0fMLfULTpZd3pCXVusx AxQMO0JpYJDV1ajlyvmCGzpToe dv6hVFKvVCNIDNPwxBVoSLGhiO VybWluZWQgdGhhdCBzdWNoIGNs WCZyEQ7gXAIhgzWljTAju2IreS HdriAje7EosiNnEQRuORL0RyPm VIebrjC0KPL2OBssPERgTOQiXc 1kEBBuvP0vY6MuQWR0gpQxi7Ge HiZjHHDxt4cwxGedOT4cyDCrIE ZuDEddyjPhKENcfsYwjzJvs0Uz R0T4zA2lMQfys7YtVx2zRCVue5 CjloWbNpBxVRNhKSlseIq6FJQv BXD3yVMde79tTIYyMRLobGWxPy phOZHbcQHwsV3kxjLaMA6yIvvm H29nGLUprW8ey1xht8QqPv0iWO vss2lqgAerQSRgPUjidKLdwEZd pFRjYFggpVcmQ5O8tRyrftZern DycRL9BV4uyLZzHCQxofOrN1H5 pETxUV8tEWRttTBfDMfmkpAcu7 xispSomBB8aBUdGHZMWZ3cU7F9 cMHuOWXud0GxkPQldwMlTHU1zL 0tm7e5NWMrfMtfTtzuX0htb0et dWxkIGJlIGludGVycHJldGVkIH nqwZerY2U5xSfrfhPzruRycLR4 KY9njGKdBBLpbgPmH0G7uTJmRU 1bSHYgIQPvvxAqWu5skQrqOVRp xFEkJObgnaCof9hslzZntDB9cM CcROLtQJOgpU22iEWvWbMpP50f wUKnMQLbkZ2iNHT0gCMroBRiw9 AttEogMBnpOD1gjX0fb9crxCZg ALMMyLqiBImxJw6gWMJbnfrqxO UuA0KvbEcflKCqKAIkPHZiVROE SUEgYXMgcXVhbGlmaWVkIHRvIH SkpbNfje4itRegnALry87pkCK9 tRL3ANOvx8XahyhfAMIalbjtKa PkjDSgMNUwX50VSzTJXFAKI08H FOBMOQUVI3ROD9bXXAT1PGM5Wp fxYKBaC38ZYnCIFACUM87QMQAL MMACX0ZBYORVVJsHI7NJXR8QJD OTSIOAAY0CIHaGLoVPKQmHU5UV VB9XLDGRMGPLHO2AJxTuYEdOM3 BNV8iMCWYkZNPXFYIEMSQrZlZK KZ8jGVi5DNiSMtY7FYI5Kxp8FS JXIVRZDP9VMPMYR90NPPDEBAKE Y0CVVPOTGgLRZFTQN56CKSVYQK LQC4MJL1lXKHTOUdBHRZKWJ77I MEIPXBBMJ8ZGQINUTUPQBaIKZo GPRR9YWULJOVOKOQ9DBPuCZpJh BUUWZ6SBInURH6bwCVZSZBUUNF XzKP7CkV== [facility] Work Phone: [facility] Work Phone: Progress Noteson 05-28-2025 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 President [employer] Advertising Sales Authentication Interface Message Text Patient notified that provider is running behind Helga Chau, LUIS E Normal [facility] Vice President [employer] Sales Authentication Interface Message Text OTOLARYNGOLOGY - HEAD AND NECK SURGERY CLINIC NOTE CHIEF COMPLAINT: Chief Complaint Patient presents with New patient, to establish relationship HPI: Glenn Parada is a 80 year old male with PMH significant for Parkinson's who presents today, 05/28/2025, at [facility] at the request of Referring Provider: Anusha Ward for my opinion and further evaluation [...] Administered Date(s) Administered COVID-19 Vaccine (12+ yrs, Brazzlebox) mRNA, spike protein, LNP, pres. free, 30 mcg/0.3mL dose, lola-sucrose (VVY=749) 06/22/2024 Influenza, injectable, high dose seasonal, trivalent, preservative free (YCT=434) 06/22/2024 Tdap (XBQ=316) 12/26/2024 PHYSICAL EXAM: Vital Signs: BP 106/66 [...] gag reflex, inadequate mirror visualization Surgeon: Reta Sanchez MD was present for the entirety of [...] oropharyngeal (more content not included)... Normal [facility] D/C Summary- SPon 05-27-2025 D/C Summary- SP [facility] Speech Pathology [facility] [address] [place] [address] / REHABILITATION SERVICES DISCHARGE SUMMARY MR#: [id number] Acct: [id number] Name: GLENN PARADA DEV Rep #: [id number] : 1945 80 From: Adamaris Arias M.S., [facility] Referring Dr.: Dr. Eloina Chi MD Status: REG R Insurance: [facility] SELF PAY INSURANCE Discharge Summary Discharged: Discharge: GLENN PARADA is an 80 year old male who presented to [facility] on 12/23/2024 following a dx of [...] Dr. Eloina Chi MD RE Signed Normal [facility] PT D/C Summary (1)on 025 PT D/C Summary (1) [facility] Physical Therapy [facility] [address] [place] [address] / REHABILITATION SERVICES DISCHARGE SUMMARY MR#: [id number] Acct: [id number] Name: GLENN PARADA Rep #: [id number] : 1945 80 From: Mayra Clements MPT Referring Dr.: MARNI BOWSER Status: REG R CR Insurance: [employer] [facility] SELF PAY INSURANCE Discharge Summary D/C summary: It has been my pleasure to treat GLENN PARADA referred by MARNI BOWSER, with the diagnosis of PD for a [...] please feel free to call me at [phone]. Thank you for the referral of this patient. Sincerely, Mayra Clements, MPT Balance/Gait/Functional tests Balance/Special Test Scores Functional Gait Assessment Score: 21 % Disability: 30.0000 Lower Extremity Functional Score: 57 Improvement % Improvement: 05/25/25 1321 CC: Dr. Eloina Chi MD; MARNI BOWSER Signed Normal [facility] -- GLENN PARADA ([id number]) 1945 M Date Time Provider Department 05/03/25 ALISSON SARABIA During your visit today, we recorded the following information about you: Esther Linder MA 05/03/2025 7:55 AM Signed Faxed rehab evaluation to [facility] and confirmation received Allergies As of [...] be prescribed. Date Reviewed: 04/08/2025 Reviewed by: Alisson Sarabia APRN.[facility]ORSER UP - Fully Assessed Reason for Visit: Orders [...] Status:Closed by ESTHER LINDER on 05/03/25 Normal [facility] Soft Tissue Neck WITH Contra ston 05-03-2025 Soft Tissue Neck WITH Contrast [facility] Imaging Services [address] [place], [place] [address] Soft Tissue Neck WITH Contrast MR#: [id number] Acct: [id number] Name: GLENN PARADA DEV Rep #: [id number] : 1945 M 80 From: Boy Arroyo MD PCP: Dr. Eloina Chi MD Status: REG CLI Study: Soft Tissue Neck WITH Contrast Date of Exam: 0 05/03/25 Exam# [id number] Ordering Dr: Anusha Ward MD PROCEDURE: SOFT TISSUE NECK WITH [...] exhibit central ulceration. The dimensions at a licensing representative axial level are about 2.4 x [...] lymphadenopathy on the left side Reading Location: [facility] CC: Dr. Eloina Chi MD; Dr. Anusha Ward MD Farm Management Adviser: Signed Normal [facility] Inital Evaluation (1) - PTon 04-26-2025 Inital Evaluation (1) - PT [facility] Physical Therapy [facility] [address] [place] [address] / REHABILITATION SERVICES INITIAL EVALUATION MR#: [id number] Acct: [id number] Name: GLENN PARADA Rep #: [id number] : 1945 80 From: Mayra CROWE Referring Dr.: ALISSON SARABIA Status: REG RC R Insurance: [facility] SELF PAY INSURANCE Patient's Visit Information Visit Information Visit Information: GLENN PARADA is a 80 year old M referred to Physical Therapy by MARNI BOWSER with a diagnosis of PD. Date of [...] to be FAXED BACK to us at [phone] for Medicare purposes. For Medicare only, by signing this I certify the plan of care. Please let me know if there are questions or concerns regarding this plan of care. Physician Signature: (more content not included)... [facility] Office Visit (NRMDN) -- GLENN PARADA ([id number]) 1945 M Date Time Provider Department 04/08/25 3:00 PM ALISSON [facility] During your visit today, we recorded the [...] FER: Alisson Sarabia CNP Recording using ambient Qui.lt software for draft documentation of the visit was discussed with the patient/authorized licensing representative; all questions welcomed and answered. Patient/authorized licensing representative agreed to proceed Eloina Chi MD [address] [facility] [address] Dear Eloina Chi MD: I had the [...] CR Ques (more content not included)... Normal [facility] Culture, Throaton 03-04-2025 CUT Normal throat crow isolated. No beta-hemolytic streptococcus isolated. Normal [facility] Comment on above: Performed By: #### M 100.1000 #### [facility] Laboratory [employer] [place], [address] Throat specimen bacteria yo ntification by cultureOrdered By: Ariel Duque on 03-01-2025 Bacteria identified Cx Nom (Throat) [facility] Culture, Throaton 02-10-2025 CUT Penicillin is the dr ug of choice for Beta Streptococcal infections. For Penicillin allergic patients, Erythromycin may be used. Streptococcus group G Amount Growth 2+ Normal [facility] Comment on above: Performed By: #### M 100.1000 #### [facility] Laboratory [address] [place], [place], [address] Throat specimen bacteria yo ntification by cultureOrdered By: Ariel Duque on 02-08-2025 Bacteria identified Cx Nom (Throat) Streptococcus group G Abnormal [facility] Culture, Throaton 12-31-2024 CUT #1 Penicillin is the drug of choice for Beta Streptococcal infections. For Penicillin allergic patients, Erythromycin may be used. Streptococcus group F Amount Growth 3+ Normal [facility] Comment on above: Performed By: #### M 100.1000 ####[facility] [address] [place], [place], [address] Throat specimen bacteria yo ntification by cultureOrdered By: Ariel Duque on 12-28-2024 Bacteria identified Cx Nom (Throat) Streptococcus group F Abnormal [facility] Brain/Head without Contrasto n 12-26-2024 Brain/Head without Contrast [facility] Imaging Services [address] [place], [place] [address] Brain/Head without Contrast MR#: [id number] Acct: [id number] Name: GLENN PARADA DEV Rep #: [id number] : 1945 M 79 From: Ranulfo Segovia PCP: Dr. Eloina Chi MD Status: [facility] Study: Brain/Head without Contrast Date of Exam: 12/12 03/07 Exam# [id number] Ordering Dr: Carlos Dennis MD EXAM: BRAIN/HEAD [...] acute traumatic findings. Senescent changes. Reading Location: [facility] CC: Dr. Carlos Dennis MD; Dr. Eloina Chi MD Farm Management Adviser: Signed Normal [facility] Emergency Department Summary on 12-26-2024 Emergency Department Summary [facility] Medical Records Department [address] [place] [address] Emergency Department Summary 12/26/24 MR#: [id number] Acct: [id number] Name: GLENN PARADA DEV Rep #: [id number] : 1945 79 From: Carlos Dennis MD PCP: Dr. Eloina Chi MD Status:DEP ER Location: ED HPI HPI - Fall [...] longer. He does not take blood thinners. [facility] Medical History Celiac disease Home Medications ???Medication [...] no evide (more content not included)... Normal [facility] Hand Min 3 Viewson Hand Min 3 Views [facility] Imaging Services [address] [place] [address] Hand Min 3 Views MR#: [id number] Acct: [id number] Name: GLENN PARADA EDV Rep #: [id number] : 1945 M 79 From: Ariel King MD PCP: Dr. Eloina Chi MD Status: REG ER Study: Hand Min 3 Views Date of Exam: 12/26/24 Exam# [id number] Ordering Dr: Carlos Dennis MD PROCEDURE: HAND [...] Carlos Dennis MD; Dr. Eloina Chi MD Farm Management Adviser: Signed Normal [facility] Spine Cervical without Contr ason 12-26-2024 Spine Cervical without Contras [facility] Imaging Services [address] [place], [place] [address] Spine Cervical without Contras MR#: [id number] Acct: [id number] Name: GLENN PARADA DEV Rep #: [id number] : 1945 M 79 From: Ranulfo Segovia PCP: Dr. Eloina Chi MD Status: REG ER Study: Spine Cervical without Contras Date of Exam: 0 12/26/24 Exam# [id number] Ordering Dr: Carlos Dennis MD PROCEDURE: SPINE [...] use of iterative reconstruction technique). Reading Location: [facility] CC: Dr. Carlos Dennis MD; Dr. Eloina Chi MD Farm Management Adviser: Signed [facility] SP/HP.SP.[facility] 12-23-2024 SP/HP.SP.[facility] Speech Pathology [address] [place] [address] / REHABILITATION SERVICES INITIAL EVALUATION MR#: [id number] Acct: [id number] Name: GLENN PARADA DEV Rep #: [id number] : 1945 79 From: Adamaris Arias M.S., [facility] Referring Dr.: Dr. Eloina Chi MD Status: REG [facility] Insurance: [facility] SELF PAY INSURANCE Visit History Visit Info Date of Eval: 12/23/24 Visit: 1 Allied Health Professional: JULIENNE Harvey Attending Doctor: Referring Doctor: Reason for Referral: DYSHPAGIA/RX HERE Previous speech therapy: No Other Relevant Medical History/Diagnoses/Surgery: GLENN PARADA is an 79 year old male who [facility] d/t concerns with dysphagia per [...] current prescribed condition?: No Personal Preferred language: Divehi Patient Allergies Allergies Allergies: Allergies No Known [...] an ev (more content not included)... Normal [facility] 11-06-2024 [facility] Telephone (GSTNOR) -- GLENN PARADA ([id number]) 1945 M Date Time Provider Department 11/06/24 SALMA CHAMBERLAIN GSTNOR During your visit today, we recorded the following information about you: Allergies As of Date: 11/06/2024 (No Known Allergies) Date Reviewed: 09/21/2024 Reviewed by: Berenice Sepulveda CT - Fully Assessed Reason for Visit: Medication Authorization [0059] Prescriptions as of 11/09/2024 - prucalopride (MOTEGR[employer]) [...] Encounter Status:Closed by ARIADNA FOX on 11/09/24 Normal [facility] Urgent Care Visit Reporton 1 12-05-2023 Urgent Care Visit Report [facility] [address], [address] [place] [address] OFFICE VISIT Date of Service: 10/04/24 MR#: [id number] Acct: [id number] Name: GLENN PARADA DEV Rep #: [id number] : 1945 Provider: MELISSA ferraro Age/Sex: 79/M Location: [facility] Status: Signed Intake Vital Signs 05/09/24 06:22 10/04/24 08:10 Height 5 ft 8 in BP 120/70 Blood Pressure Location Lt brachial Position Sitting Respiration 12 Pulse 77 Pulse Source NIBP Temp 98.2 F Temp Source Oral Pulse Oximetry (%) 97 Oxygen Delivery Method room air Intake Visit Reasons: CAT BITE Chief Complaint: Constipation Fish Stringer Assembler Required: No Is patient in pain?: No [...] past year?: No 10/04/24 0823 Date Ranulfo Gaspar NP GRILL CHEF-C Tabithaigncristina Signature: Date (if applicable) CC: [facility]. Eloina Chi MD [facility] OV Office Visit (NREUS2 ) -- GLENN PARADA ([id number]) 1945 M Date Time Provider Department 09/21/24 3:30 PM JOSEPH SARABIA NREUS2 During your visit today, we recorded the following information about you: Weight Height 74.8 kg 1.727 m Joseph Sarabia MD 10/04/2024 7:14 PM Signed [facility] - FOLLOW UP EVALUATION Eloina Chi MD [address] [facility] [address] Dear Eloina Chi MD: I had the [...] Row Office Visit from 09/21/2024 in Neurological [facility] Office Visit from 06/25/2024 in Neurology Global [...] NUTRITIONAL SUPPLEMENT (more content not included)... Normal [facility] 08[facility]10-20[facility]JAYLEN[facility] -- GLENN PARADA ([id number]) 1945 M Date Time Provider Department 08/10/24 [...] wean down or discontinue propranolol. Alisson Sarabia APRN.[facility] 08/14/2024 4:17 PM Signed I called and spoke with him and his . He said his dizziness has not been as bad lately and decided he does not want to make this change, but will have reassessed when he sees Dr. Sarabia next month. I asked him to let me know if his symptoms return. Alisson Sarabia APRN-HORSER UP Allergies As of Date: 08/10/2024 (No Known Allergies) Date Reviewed: 07/30/2024 Reviewed by: Ariadna Fox MA - Fully Assessed Reason for Visit: Medication Question [0428] Prescriptions as of 08/14/2024 - SENNA 8.6 [...] Status:Closed by JAEL CH on 08/12/24 Normal [facility] CBC W Auto Differential pane l (Bld)on 07-31-2024 Basophils (Bld) [#/Vol] 0.06 10*3/uL Normal <0.11 [facility] Comment on above: Order Comment: Speci men Type: BLOOD SPECIMENOrdering Facility: [facility] Address: [address] [place] [address] Performed By: #### 5 7021-8 ####[facility] MILLWNCLIA [id number] [place] [address] [place] Basophils/100 WBC (Bld) 0.8 % Normal [facility] Comment on above: Order Comment: Speci men Type: BLOOD SPECIMENOrdering Facility: [facility] Address: [address] [place] [address] Performed By: #### 5 7021-8 ####[facility] [id number] [place] [address] [place] Differential cell count method Nom (Bld) Auto Normal [facility] Comment on above: Order Comment: Speci men Type: BLOOD SPECIMENOrdering Facility: [facility] Address: [address] [place] [address] Performed By: #### 5 7021-8 ####[facility] [id number] [place] [address] [place] Eosinophils (Bld) [#/Vol] 0.26 10*3/uL Normal <0.46 [facility] Comment on above: Order Comment: Speci men Type: BLOOD SPECIMENOrdering Facility: [facility] Address: [address] [place] [address] Performed By: #### 5 7021-8 ####[facility] [id number] [place] [address] [place] Eosinophils/100 WBC (Bld) 3.4 % Normal [facility] Comment on above: Order Comment: Speci men Type: BLOOD SPECIMENOrdering Facility: [facility] Address: [address] [place] [address] Performed By: #### 5 7021-8 ####[facility] [id number] [place] [address] [place] Erythrocyte distribution width (RBC) [Ratio] 12.7 % Normal 11.5-15.0 [facility] Comment on above: Order Comment: Speci men Type: BLOOD SPECIMENOrdering Facility: [facility] Address: [address] [place] [address] Performed By: #### 5 7021-8 ####[facility] [id number] [place] [address] [place] Hematocrit (Bld) [Volume fraction] 38.0 % Low 39.0-51.0 [facility] Comment on above: Order Comment: Speci men Type: BLOOD SPECIMENOrdering Facility: [facility] Address: [address] [place] [address] Performed By: #### 5 7021-8 ####[facility] [id number] [place] [address] [place] Hemoglobin (Bld) [Mass/Vol] 13.0 g/dL Normal 13.0-17.0 [facility] Comment on above: Order Comment: Speci men Type: BLOOD SPECIMENOrdering Facility: [facility] Address: [address] [place] [address] Performed By: #### 5 7021-8 ####[facility] [id number] [place] [address] [place] Immature granulocytes (Bld) [#/Vol] 10*3/uL Normal <0.10 [facility] Comment on above: Order Comment: Speci men Type: BLOOD SPECIMENOrdering Facility: [facility] Address: [address] [place] [address] Performed By: #### 5 7021-8 ####[facility] [id number] [place] [address] [place] Immature granulocytes/100 WBC (Bld) 0.1 % Normal [facility] Comment on above: Order Comment: Speci men Type: BLOOD SPECIMENOrdering Facility: [facility] Address: [address] [place] [address] Performed By: #### 5 7021-8 ####[facility] IRAISKASSIEA [id number] [place] [address] [place] Lymphocytes (Bld) [#/Vol] 2.55 10*3/uL Normal 1.00-4.00 [facility] Comment on above: Order Comment: Speci men Type: BLOOD SPECIMENOrdering Facility: [facility] Address: [address] [place] [address] Performed By: #### 5 7021-8 ####[facility] [id number] [place] [address] [place] Lymphocytes/100 WBC (Bld) 33.1 % Normal [facility] Comment on above: Order Comment: Speci men Type: BLOOD SPECIMENOrdering Facility: [facility] Address: [address] [place] [address] Performed By: #### 5 7021-8 ####[facility] [id number] [place], [place] [address] [place] MCH (RBC) [Entitic mass] 30.9 pg Normal 26.0-34.0 [facility] Comment on above: Order Comment: Speci men Type: BLOOD SPECIMENOrdering Facility: [facility] Address: [address] [place] [address] Performed By: #### 5 7021-8 ####[facility] [id number] [place] [address] [place] MCHC (RBC) [Mass/Vol] 34.2 g/dL Normal 30.5-36.0 [facility] Comment on above: Order Comment: Speci men Type: BLOOD SPECIMENOrdering Facility: [facility] Address: [address] [place] [address] Performed By: #### 5 7021-8 ####[facility] IRAISWAKLIA [id number] [place] [address] [place] MCV (RBC) [Entitic vol] 90.3 fL Normal 80.0-100.0 [facility] Comment on above: Order Comment: Speci men Type: BLOOD SPECIMENOrdering Facility: [facility] Address: [address] [place] [address] Performed By: #### 5 7021-8 ####[facility] [id number] [place] [address] [place] Monocytes (Bld) [#/Vol] 0.75 10*3/uL Normal <0.87 [facility] Comment on above: Order Comment: Speci men Type: BLOOD SPECIMENOrdering Facility: [facility] Address: [address] [place] [address] Performed By: #### 5 7021-8 ####[facility] [id number] [place] [address] [place] Monocytes/100 WBC (Bld) 9.7 % Normal [facility] Comment on above: Order Comment: Speci men Type: BLOOD SPECIMENOrdering Facility: [facility] Address: [address] [place] [address] Performed By: #### 5 7021-8 ####[facility] [id number] [place] [address] [place] Neutrophils (Bld) [#/Vol] 4.08 10*3/uL Normal 1.45-7.50 [facility] Comment on above: Order Comment: Speci men Type: BLOOD SPECIMENOrdering Facility: [facility] Address: [address] [place] [address] Performed By: #### 5 7021-8 ####[facility] [id number] [place] [address] [place] Neutrophils/100 WBC (Bld) 52.9 % Normal [facility] Comment on above: Order Comment: Speci men Type: BLOOD SPECIMENOrdering Facility: [facility] Address: [address] [place] [address] Performed By: #### 5 7021-8 ####[facility] [id number] [place] [address] [place] Nucleated RBC (Bld) [#/Vol] 10*3/uL Normal <0.01 [facility] Comment on above: Order Comment: Speci men Type: BLOOD SPECIMENOrdering Facility: [facility] Address: [address] [place] [address] Performed By: #### 5 7021-8 ####[facility] [id number] [place] [address] [place] Nucleated RBC/100 WBC (Bld) [Ratio] 0.0 /100 WBC Normal [facility] Comment on above: Order Comment: Speci men Type: BLOOD SPECIMENOrdering Facility: [facility] Address: [address] [place] [address] Performed By: #### 5 7021-8 ####[facility] [id number] [place] [address] [place] Platelet mean volume (Bld) [Entitic vol] 9.2 fL Normal 9.0-12.7 [facility] Comment on above: Order Comment: Speci men Type: BLOOD SPECIMENOrdering Facility: [facility] Address: [address] [place] [address] Performed By: #### 5 7021-8 ####[facility] [id number] [place] [address] [place] Platelets (Bld) [#/Vol] 232 10*3/uL Normal 150-400 [facility] Comment on above: Order Comment: Speci men Type: BLOOD SPECIMENOrdering Facility: [facility] Address: [address] [place] [address] Performed By: #### 5 7021-8 ####[facility]ITALNCA [id number] [place] [address] [place] RBC (Bld) [#/Vol] 4.21 10*6/uL Normal 4.20-6.00 [facility] Comment on above: Order Comment: Speci men Type: BLOOD SPECIMENOrdering Facility: [facility] Address: [address] [place] [address] Performed By: #### 5 7021-8 ####[facility] [id number] [place] [address] [place] WBC (Bld) [#/Vol] 7.71 10*3/uL Normal 3.70-11.00 [facility] Comment on above: Order Comment: Speci men Type: BLOOD SPECIMENOrdering Facility: [facility] Address: [address] [place] [address] Performed By: #### 5 7021-8 ####[facility] [id number] [place] [address] [place] [facility] HLA-DQ GENOTYPE on 07-31-2024 [place] INTERPRETATION The HLA-DQ genotype of the patient is supportive of an increased risk of celiac disease. Normal [facility] Comment on above: Order Comment: Speci men Type: BLOOD SPECIMENOrdering Facility: [facility] Address: [address] [place] [address] Performed By: #### C KELLI ####[facility] [id number] [place] [address] [place] CELIAC CATEGORY Category 7 Normal [facility] Comment on above: Order Comment: Speci men Type: BLOOD SPECIMENOrdering Facility: [facility] Address: [address] [place] [address] Result Comment: CATEGORY DQ HAPLOTYPE RELATIVE RISK [...] HLA allele is reported. References: 1. Angely Cadena, Bridgette J, Maico Meyer, et al. Cost-effective HLA typing with tagging SNPs predicts celiac disease risk haplotypes in the Stateless, Yoruba and Sami populations. Immunogenetics. 2009 Jan;61(4):247-56. 2. Akua ACOSTA. Celiac disease: dissecting a complex inflammatory disorder. Ruby Rev Immunol. 2002 Jun;2(9):647-55. 3. Calderon E, Connor HS, Malinda CA, et al. Risk of pediatric celiac disease according to HLA haplotype and country. N Engl J Med. 2014 ;371(1):42-9. HLA typing performed by PCR-RSSOP and/or NGS. This test was developed and its performance characteristics determined by [employer]. The test has not been cleared or approved by the [place] FDA. However, FDA approval was not necessary since this lab is certified under CLIA for high complexity testing. Test performed by: [facility], [address] [place], [place] [address] [place] [address]. CLIA [id number]. Performed By: #### C KELLI ####[facility]OR[facility]IESCLIA [id number] [address] CELIAC RISK HAPLOTYPE Positive Normal [facility] Comment on above: Order Comment: [facility] Type: BLOOD SPECIMENOrdering Facility: [facility] Address: [address] [place] [address] Performed By: #### C KELLI ####[facility]OR[facility]IESCLIA [id number] [address] [place] HLA-DQA1 GENOTYPE HLA-DQA1*: 05, 02:01 Normal [facility] Comment on above: Order Comment: [facility] Type: BLOOD SPECIMENOrdering Facility: [facility] Address: [address] [place] [address] Performed By: #### C KELLI ####[facility]ORATORIESCLIA [id number] [place] [id number] [facility] [place] HLA-DQB1 GENOTYPE HLA-DQB1*: 02:01, 02:02 Normal [facility] Comment on above: Order Comment: Chela [place]field Type: BLOOD SPECIMENOrdering Facility: [facility] Address: [address] [place] [address] Performed By: #### C KELLI ####[facility]ORATORIESCLIA [id number] [place] [id number] [place] CELIAC SCREENon 07-31-2024 GLIAD DEAMIDATED IGA QUAL Negative Normal Negative, Test not Indicated [facility] Comment on above: Order Comment: Chela [place] Type: BLOOD SPECIMENOrdering Facility: [facility] Address: [address] [place] [address] Result Comment: This is used as an aid in diagnosis of celiac disease. Clinical correlation is required. The following results were obtained with an [employer] QUANT[employer] Lite Gliadin IgA JF Gliadin. Gliadin IgA values obtained with different manufacturers' assay methods may not be used interchangeably. The magnitude of the reported IgA levels cannot be correlated to an endpoint titer. Performed By: #### L [id number] ####[facility] LABIA [id number] [place] [address] [place] Gliadin peptide IgA Qn (S) 3 Units Normal <20 [facility] Comment on above: Order Comment: Chela [place] Type: BLOOD SPECIMENOrdering Facility: [facility] Address: [address] [place] [address] Performed By: #### L [id number] ####[facility] LABIA [id number] [place] [address] [place] INTERPRETATION No serological evide nce of celiac disease, however, if celiac disease is clinically suspected and patient is not on gluten-free diet, histological diagnosis may be considered. HLA testing may help with risk assessment. Normal [facility] Comment on above: Order Comment: Chela [place] Type: BLOOD SPECIMENOrdering Facility: [facility] Address: [address] [place] [address] Performed By: #### L [id number] ####[facility] LABIA [id number] [place] [address] [place] TRANSGLUTAMINASE IGA ABS INTERPRETATION Negative Normal Negative [facility] Comment on above: Order Comment: Chela [place]field Type: BLOOD SPECIMENOrdering Facility: [facility] Address: [address] [place] [address] Result Comment: The following results were obtained with [employer] Lite R h-tTG IgA JF.???R h-tTG IgA values obtained with different manufacturers' assay methods may not be used interchangeably. The magnitude of the reported IgA levels cannot be corelated to an endpoint???concentration. This is used as an aid in diagnosis of celiac disease. Clinical correlation is required. Performed By: #### L [id number] ####[facility] LABCLIA [id number] [place] [address] [place] tTG IgA Qn (S) <2 Normal <4 [facility] Comment on above: Order Comment: Speci men Type: BLOOD SPECIMENOrdering Facility: [facility] Address: [address] [place] [address] Performed By: #### L [id number] ####[facility] LABCLIA [id number] [place] [address] [place] Comprehensive metabolic 2000 panelon 07-31-2024 Albumin [Mass/Vol] 3.9 g/dL Normal 3.9-4.9 [facility] Comment on above: Order Comment: Speci men Type: BLOOD SPECIMENOrdering Facility: [facility] Address: [address] [place] [address] Performed By: #### 2 4323-8 ####[facility] [id number] [place] [address] [place] ALP [Catalytic activity/Vol] 84 U/L Normal 38-113 [facility] Comment on above: Order Comment: Speci men Type: BLOOD SPECIMENOrdering Facility: [facility] Address: [address] [place] [address] Performed By: #### 2 4323-8 ####[facility] [id number] [place] [address] [place] ALT [Catalytic activity/Vol] 7 U/L Low 10-54 [facility] Comment on above: Order Comment: Speci men Type: BLOOD SPECIMENOrdering Facility: [facility] Address: [address] [place] [address] Performed By: #### 2 4323-8 ####[facility] ALEXANDRA MILLTOWNCLIA [id number] [place] [address] [place] Anion gap [Moles/Vol] 10 mmol/L Normal 8-15 [facility] Comment on above: Order Comment: Speci men Type: BLOOD SPECIMENOrdering Facility: [facility] Address: [address] [place] [address] Performed By: #### 2 4323-8 ####[facility] MILLWNCLIA [id number] [place] [address] [place] AST [Catalytic activity/Vol] 14 U/L Normal 14-40 [facility] Comment on above: Order Comment: Speci men Type: BLOOD SPECIMENOrdering Facility: [facility] Address: [address] [place] [address] Performed By: #### 2 4323-8 ####[facility]ENTERWNCLIA [id number] [place] [address] [place] Bilirubin [Mass/Vol] 0.5 mg/dL Normal 0.2-1.3 [facility] Comment on above: Order Comment: Speci men Type: BLOOD SPECIMENOrdering Facility: [facility] Address: [facility] [place] [address] Performed By: #### 2 4323-8 ####[facility] MILLTOWNCLIA [id number] [place] [address] [place] Calcium [Mass/Vol] 9.1 mg/dL Normal 8.5-10.2 [facility] Comment on above: Order Comment: Speci men Type: BLOOD SPECIMENOrdering Facility: [facility] Address: [address] [place] [address] Performed By: #### 2 4323-8 ####[facility] MILLWNCLIA [id number] [place] [address] [place] Chloride [Moles/Vol] 97 mmol/L Low 98-107 [facility] Comment on above: Order Comment: Speci men Type: BLOOD SPECIMENOrdering Facility: [facility] Address: [address] [place] [address] Performed By: #### 2 4323-8 ####[facility] [id number] [place] [address] [place] CO2 [Moles/Vol] 25 mmol/L Normal 22-30 [facility] Comment on above: Order Comment: Speci men Type: BLOOD SPECIMENOrdering Facility: [facility] Address: [address] [place] [address] Performed By: #### 2 4323-8 ####[facility] [id number] [place] [address] [place] Creatinine [Mass/Vol] 1.02 mg/dL Normal 0.73-1.22 [facility] Comment on above: Order Comment: Speci men Type: BLOOD SPECIMENOrdering Facility: [facility] Address: [address] [place] [address] Performed By: #### 2 4323-8 ####[facility] HOSPITALNCLI [id number] [place] [address] [place] Creatinine and Glomerular filtration rate.predicted panel (S/P/Bld) 74 mL/min/1.73m??? Normal >=60 [facility] Comment on above: Order Comment: Speci men Type: BLOOD SPECIMENOrdering Facility: [facility] Address: [address] [place] [address] Result Comment: Judy mated Glomerular Filtration Rate [...] actual GFR. Performed By: #### 2 4323-8 ####[facility] IRAISWNCLIA [id number] [place] [address] [place] Glucose [Mass/Vol] 83 mg/dL Normal 74-99 [facility] Comment on above: Order Comment: Speci men Type: BLOOD SPECIMENOrdering Facility: [facility] Address: [address] [place] [address] Result Comment: The [place] Diabetes Association (ADA) provides guidance for cutoff [...] Standards of Medical Care in Diabetes 2016, [place] Diabetes Association. Diabetes Care. 2016.39(Suppl 1). Performed By: #### 2 4323-8 ####[facility]PITALNCLIA [id number] [place] [address] [place] Potassium [Moles/Vol] 4.3 mmol/L Normal 3.7-5.1 [facility] Comment on above: Order Comment: Speci men Type: BLOOD SPECIMENOrdering Facility: [facility] Address: [address] [place] [address] Performed By: #### 2 4323-8 ####[facility]PITALNCLIA [id number] [place] [address] [place] Protein [Mass/Vol] 6.6 g/dL Normal 6.3-8.0 [facility] Comment on above: Order Comment: Speci men Type: BLOOD SPECIMENOrdering Facility: [facility] Address: [address] [place] [address] Performed By: #### 2 4323-8 ####[facility]OSPITALNCA [id number] [place] [address] [place] Sodium [Moles/Vol] 132 mmol/L Low 136-144 [facility] Comment on above: Order Comment: Speci men Type: BLOOD SPECIMENOrdering Facility: [facility] Address: [address] [place] [address] Performed By: #### 2 4323-8 ####[facility] [id number] [place] [address] [place] Urea nitrogen [Mass/Vol] 12 mg/dL Normal 9-24 [facility] Comment on above: Order Comment: Speci men Type: BLOOD SPECIMENOrdering Facility: [facility] Address: [address] [place] [address] Performed By: #### 2 4323-8 ####[facility] [id number] [place] [address] [place] IgA SerPl-mCncon 07-31-2024 IgA [Mass/Vol] 185 mg/dL Normal 70-400 [facility] Comment on above: Order Comment: Speci men Type: BLOOD SPECIMENOrdering Facility: [facility] Address: [address] [place] [address] Performed By: #### 2 458-8 ####[facility] LABCLIA [id number] [facility] [id number] [place], [place] [id number] [place] TSH SerPl-aCncon 07-31-2024 TSH Qn 2.990 m[IU]/L Normal 0.270-4.20 0 [facility] Comment on above: Order Comment: Speci men Type: BLOOD SPECIMENOrdering Facility: [facility] Address: [address] [place] [address] Performed By: #### 3 016-3 ####[facility] LABCLIA [id number] [address] [address] [place] CNOVon 07-30-2024 CNOV Office Visit (GSTNOR ) -- GLENN PARADA ([id number]) 1945 M Date Time Provider Department 07/30/24 2:00 PM SALMA CHAMBERLAIN GSTNOR During your visit today, [...] - Fully (more content not included)... Normal [facility] CNOVon 06-25-2024 CNOV Office Visit (NRMDN) -- GLENN PARADA ([id number]) 1945 M Date Time Provider Department 06/25/24 4:00 PM ALISSON SARABIA During your visit today, we recorded the following information about you: Pulse Blood pressure Weight Height 83/minute 105/67 75.8 kg 1.72 m Alisson Sarabia APRN.HORSER UP 06/26/2024 6:26 AM Signed [facility]NR-[facility] - FOLLOW UP EVALUATION MD Eyal Ross [place] [address] [address] Dear Eloina Chi MD: I had the [...] as well as a recipe from the [facility]. Cognition: We will check a screening in the future At your convenience, please provide us with a copy of your advanced directives (living will and durable power of deputy county attorney for healthcare): By Email: Send your document(s) to [email or web address] as an attachment in either PDF, TIFF, or JPEG format. By Mail: [facility] Information Management, Ab7 Advance Directive Processing [address] [place], [place] [address] By In person at any [facility] location Please note: You can use the address or fax number regardless of which [facility] you utilize, and we will make [...] (slight) Tremors/G (more content not included)... Normal [facility] Absolute lymphocyte countOrd ered By: Eloina Castilloke on 09-20-2023 Lymphocytes Auto (Unsp spec) [#/Vol] 2.02 10*3/uL 0.83-4.51 [facility] Basophil percentageOrdered B y: Eloina Lula on 09-20-2023 Basophils/100 WBC (Bld) 1.0 % 0-1 [facility] Bilirubin [Mass/Vol] 0.90 mg/dL 0.20-1.00 [facility] Comment on above: For patients on eltr ombopag therapy, use of Dimension [place] TBIL is not recommended. Chloride [Moles/Vol] 104 mmol/L 98-107 [facility] Cholesterol [Mass/Vol] 173 mg/dL <200 [facility] Comment on above: <200 mg/dL Desirable 200-240 mg/dL Borderline >240 mg/dL High Risk Eosinophils/100 WBC (Bld) 5.0 % 0-5 [facility] Glucose [Mass/Vol] 102 mg/dL 74-106 [facility] Comment on above: Fasting Glucose resu lt from 100 to 125 mg/dL suggests IMPAIRED HOMEOSTASIS per A.D.A. criteria. Neutrophils (Bld) [#/Vol] 3.0 10*3/uL 2.0-7.7 [facility] Neutrophils/100 WBC (Bld) 49.4 % 47-70 [facility] Potassium [Moles/Vol] 4.0 mmol/L 3.5-5.1 [facility] Protein [Mass/Vol] 6.9 g/dL 6.4-8.2 [facility] Sodium [Moles/Vol] 134 mmol/L 136-145 [facility] Triglyceride [Mass/Vol] 90 mg/dL <199 [facility] Comment on above: The drugs N-Acetylcy steine and Metamizole may falsely depress this assay.Serum Triglycerides Reference Interval Normal <150 mg/dL Borderline high 150 - 199 mg/dL High 200 - 499 mg/dL Very High > or = 500 mg/dL WBC (Bld) [#/Vol] 6.0 10*3/uL 4.4-11.0 [facility] Blood erythrocytes count (nu mber/volume)Ordered By: Eloina Chi on 09-20-2023 RBC (Bld) [#/Vol] 4.39 10*6/uL 4.6-6.2 [facility] Blood hemoglobin measurement (mass/volume)Ordered By: Eloina Chi on 09-20-2023 Hemoglobin (Bld) [Mass/Vol] 13.3 g/dL 13.0-16.5 [facility] Blood lymphocytes/100 leukoc ytesOrdered By: Eloina Chi on 09-20-2023 Lymphocytes/100 WBC (Bld) 33.8 % 19-41 [facility] Blood monocytes/100 leukocyt esOrdered By: [facility] on 09-20-2023 Monocytes/100 WBC (Bld) 10.6 % 0-10 [facility] Blood platelet mean volumeOr dered By: [facility]ula on 09-20-2023 Platelet mean volume (Bld) [Entitic vol] 10.9 fL 6.2-12.0 [facility] Determination of erythrocyte mean corpuscular volume (MCV)Ordered By: Eloina Chi on 09-20-2023 MCV (RBC) [Entitic vol] 91.3 fL 80-94 [facility] Hematocrit Auto (Bld) [Volum e fraction]Ordered By: [facility] on 09-20-2023 Hematocrit (Bld) [Volume fraction] 40.1 % 40-54 [facility] Laboratory - Chemistry and C hemistry - challengeOrdered By: [facility] on 09-20-2023 ALP [Catalytic activity/Vol] 68 U/L 45-117 [facility] ALT [Catalytic activity/Vol] 11 U/L 16-61 [facility] CO2 [Moles/Vol] 24.0 mmol/L 21.0-32.0 [facility] Free T4 [Mass/Vol] 1.22 ng/dL 0.76-1.46 [facility] Globulin (S) [Mass/Vol] 3.3 g/dL 2.2-4.2 [facility] Urea nitrogen/Creatinine [Mass ratio] 12.8 mg/mg 10-20 [facility] - Hematology and Cell countsOrdered By: [facility] on 09-20-2023 Erythrocyte distribution width (RBC) [Entitic vol] 43.6 fL 35.1-43.9 [facility] Erythrocyte distribution width (RBC) [Ratio] 13.0 % 11.6-14.6 [facility] Immature granulocytes/100 WBC (Bld) 0.200 % 0.0-0.9 [facility] Comment on above: IG% - Immature Granu locytes (promyelocytes, myelocytes and metamyelocytes) > 1% indicates that a LEFT SHIFT is Present. MCH (RBC) [Entitic mass] 30.3 pg 27.0-32.0 [facility] Nucleated RBC/100 WBC (Bld) [Ratio] 0 % 0-5 [facility] MCHC Auto (RBC) [Mass/Vol]Or dered By: Eloina Chi on 09-20-2023 MCHC (RBC) [Mass/Vol] 33.2 g/dL 32-36 [facility] No Panel InformationOrdered By: Eloina Cih on 09-20-2023 Estimated GFR (MDRD) Amer 84 mL/min >60 [facility] Comment on above: GFR Calc Estimated GFR (MDRD) Non-Af Amer 69 mL/min >60 [facility] Comment on above: Non- GFR Calc Prostate Specific Antigen Screen 1.64 ng/mL 0.00-4.00 [facility] Comment on above: This test was perfor med using the TPSA assay method for [employer] chemistry system. Values obtained with differentassay methods cannot be used interchangably.When changing PSA assays in the course of monitoring apatient, additional sequential testing should be carriedout to confirm baseline values. Thyroid Stimulating Hormone (TSH) 2.43 uIU/mL 0.358-3.74 [facility] Platelets bldOrdered By: Shaneka Chi on 09-20-2023 Platelets (Bld) [#/Vol] 233 10*3/uL 150-450 [facility] Serum or plasma albumin shanita urement (mass/volume)Ordered By: Eloina Chi on 09-20-2023 Albumin [Mass/Vol] 3.6 g/dL 3.2-5.0 [facility] Serum or plasma albumin/glob ulin mass ratioOrdered By: Eloina Chi on 09-20-2023 Albumin/Globulin [Mass ratio] 1.1 {ratio} 0.9-2.4 [facility] Serum or plasma calcium shanita urement (mass/volume)Ordered By: Eloina Chi on 09-20-2023 Calcium [Mass/Vol] 8.8 mg/dL 8.5-10.1 [facility] Serum or plasma cholesterol in HDL measurement (mass/volume)Ordered By: Eloina Chi on 09-20-2023 Cholesterol in HDL [Mass/Vol] 45 mg/dL >40 [facility] Comment on above: The drugs N-Acetylcy steine and Metamizole may falsely depress this assay. Reference Range HDL <40 mg/dL Low HDL Cholesterol HDL >or= 60 mg/dL High HDL Cholesterol Serum or plasma cholesterol in VLDL measurement (mass/volume)Ordered By: Eloina Chi on 09-20-2023 Cholesterol in VLDL [Mass/Vol] 18 mg/dL 5-40 [facility] Serum or plasma creatinine m easurement (mass/volume)Ordered By: Eloina Chi on 09-20-2023 Creatinine [Mass/Vol] 1.09 mg/dL 0.70-1.30 [facility] Comment on above: The validity of the calculated GFR & GFRAA in patients over 70 years has not been determined. Clinical correlation is essential. Serum or plasma low density lipoprotein (LDL) cholesterol measurement (mass/volume)Ordered By: Eloina Chi on 09-20-2023 Cholesterol in LDL [Mass/Vol] 110 mg/dL 0-130 [facility] Serum or plasma urea nitroge n measurement (mass/volume)Ordered By: Eloina Chi on 09-20-2023 Urea nitrogen [Mass/Vol] 14 mg/dL 7-18 [facility] Thin prep Papanicolaou smear with manual screeningOrdered By: Eloina Chi on 09-20-2023 Thin prep Papanicolaou smear with manual screening 15 U/L 15-37 [facility] Thin prep Papanicolaou smear with manual screening 6 5-15 [facility] Vital Signs Date Time Vital Sign Value Performing Clinician Facility 06-28-2025 15:02-0400 Body height 172.72 cm Eloina Chi MD Work Phone: [facility] 06-28-2025 15:02-0400 Body mass index (BMI) [Ratio] 23.8 kg/m2 Eloina Chi MD Work Phone: [facility] 06-28-2025 15:02-0400 Body temperature 98.2 [degF] Eloina Chi MD Work Phone: [facility] 06-28-2025 15:02-0400 Body weight 71.24 kg Eloina Chi MD Work Phone: [facility] 06-28-2025 15:02-0400 Diastolic blood pressure 80 mm[Hg] Eloina Chi MD Work Phone: [facility] 06-28-2025 15:02-0400 Heart rate 76 /min Eloina Chi MD Work Phone: [facility] 06-28-2025 15:02-0400 Respiratory rate 18 /min Eloina Chi MD Work Phone: [facility] 06-28-2025 15:02-0400 SaO2% (BldA) [Mass fraction] 98 % Eloina Chi MD Work Phone: [facility] 06-28-2025 15:02-0400 Systolic blood pressure 130 mm[Hg] Eloina Chi MD Work Phone: [facility] 06-22-2025 08:24-0400 Body height 172.72 cm Eloina Chi MD Work Phone: [facility] 06-22-2025 08:24-0400 Body mass index (BMI) [Ratio] 23.9 kg/m2 Eloina Chi MD Work Phone: [facility] 06-22-2025 08:24-0400 Body temperature 98.3 [degF] Eloina Chi MD Work Phone: [facility] 06-22-2025 08:24-0400 Body weight 71.46 kg Eloina Cih MD Work Phone: [facility] 06-22-2025 08:24-0400 Diastolic blood pressure 60 mm[Hg] Eloina Chi MD Work Phone: [facility] 06-22-2025 08:24-0400 Heart rate 84 /min Eloina Chi MD Work Phone: [facility] 06-22-2025 08:24-0400 Respiratory rate 16 /min Eloina Chi MD Work Phone: [facility] 06-22-2025 08:24-0400 SaO2% (BldA) [Mass fraction] 97 % Eloina Chi MD Work Phone: [facility] 06-22-2025 08:24-0400 Systolic blood pressure 96 mm[Hg] Eloina Chi MD Work Phone: [facility] 06-21-2025 13:38-0400 Body height 172.72 cm Eloina Chi MD Work Phone: [facility] 06-21-2025 13:38-0400 Body mass index (BMI) [Ratio] 24.3 kg/m2 Eloina Chi MD Work Phone: [facility] 06-21-2025 13:38-0400 Body weight 72.63 kg Eloina Chi MD Work Phone: [facility] 06-21-2025 13:38-0400 Diastolic blood pressure 66 mm[Hg] Eloina Chi MD Work Phone: [facility] 06-21-2025 13:38-0400 Heart rate 98 /min Eloina Chi MD Work Phone: [facility] 06-21-2025 13:38-0400 Respiratory rate 17 /min Eloina Chi MD Work Phone: [facility] 06-21-2025 13:38-0400 SaO2% (BldA) [Mass fraction] 99 % Eloina Chi MD Work Phone: [facility] 06-21-2025 13:38-0400 Systolic blood pressure 105 mm[Hg] Eloina Chi MD Work Phone: [facility] 06-17-2025 13:42-0400 Body height 172.72 cm Eloina Chi MD Work Phone: [facility] 06-17-2025 13:42-0400 Body mass index (BMI) [Ratio] 24 kg/m2 Eloina Chi MD Work Phone: [facility] 06-17-2025 13:42-0400 Body temperature 96.6 [degF] Eloina Chi MD Work Phone: [facility] 06-17-2025 13:42-0400 Body weight 71.78 kg Eloina Chi MD Work Phone: [facility] 06-17-2025 13:42-0400 Diastolic blood pressure 59 mm[Hg] Eloina Chi MD Work Phone: [facility] 06-17-2025 13:42-0400 Heart rate 82 /min Eloina Chi MD Work Phone: [facility] 06-17-2025 13:42-0400 Respiratory rate 16 /min Eloina Chi MD Work Phone: [facility] 06-17-2025 13:42-0400 SaO2% (BldA) [Mass fraction] 97 % Eloina Chi MD Work Phone: [facility] 06-17-2025 13:42-0400 Systolic blood pressure 88 mm[Hg] Eloina Chi MD Work Phone: [facility] 05-28-2025 11:37-0400 Body temperature 97.5 [degF] Reta Sanchez MD Work Phone: [facility] 05-28-2025 11:37-0400 Body weight 72.58 kg Reta Sanchez MD Work Phone: [facility] 05-28-2025 11:37-0400 Diastolic blood pressure 66 mm[Hg] Reta Sanchez MD Work Phone: [facility] 05-28-2025 11:37-0400 Heart rate 86 /min Reta Sanchez MD Work Phone: [facility] 05-28-2025 11:37-0400 SaO2% (BldA) [Mass fraction] 97 % Reta Sanchez MD Work Phone: [facility] 05-28-2025 11:37-0400 Systolic blood pressure 106 mm[Hg] Reta Sanchez MD Work Phone: [facility] 04-08-2025 14:58-0400 Body height 172.7 cm Alisson Sarabia TRAY DELIVERY AIDE.[employer]ORSER UP Work Phone: [facility] 04-08-2025 14:58-0400 Body mass index (BMI) [Ratio] 25.31 kg/m2 Alisson Sarabia TRAY DELIVERY AIDE.[employer]ORSER UP Work Phone: [facility] 04-08-2025 14:58-0400 Body weight 75.5 kg Alisson Sarabia TRAY DELIVERY AIDE.[employer]ORSER UP Work Phone: [facility] 04-08-2025 14:58-0400 SaO2% (BldA) [Mass fraction] 96 % Alisson Sarabia TRAY DELIVERY AIDE.HORSER UP Work Phone: [facility] 12-26-2024 19:28-0400 Body temperature 98.2 [degF] Eloina Chi MD Work Phone: [facility] 12-26-2024 19:28-0400 Diastolic blood pressure 70 mm[Hg] Eloina Chi MD Work Phone: [facility] 12-26-2024 19:28-0400 Heart rate 79 /min Eloina Chi MD Work Phone: [facility] 12-26-2024 19:28-0400 Respiratory rate 18 /min Eloina Chi MD Work Phone: [facility] 12-26-2024 19:28-0400 SaO2% (BldA) [Mass fraction] 96 % Eloina Chi MD Work Phone: [facility] 12-26-2024 19:28-0400 Systolic blood pressure 123 mm[Hg] Eloina Chi MD Work Phone: [facility] 12-26-2024 17:15-0400 Body height 172.72 cm Eloina Chi MD Work Phone: [facility] 12-26-2024 17:15-0400 Body mass index (BMI) [Ratio] 27.1 kg/m2 Eloina Chi MD Work Phone: [facility] 12-26-2024 17:15-0400 Body weight 80.8 kg Eloina Chi MD Work Phone: [facility] 10-04-2024 08:10-0500 Body temperature 98.2 [degF] Eloina Chi MD Work Phone: [facility] 10-04-2024 08:10-0500 Diastolic blood pressure 70 mm[Hg] Eloina Chi MD Work Phone: [facility] 10-04-2024 08:10-0500 Heart rate 77 /min Eloina Chi MD Work Phone: [facility] 10-04-2024 08:10-0500 Respiratory rate 12 /min Eloina Chi MD Work Phone: [facility] 10-04-2024 08:10-0500 SaO2% (BldA) [Mass fraction] 97 % Eloina Chi MD Work Phone: [facility] 10-04-2024 08:10-0500 Systolic blood pressure 120 mm[Hg] Eloina Chi MD Work Phone: [facility] 09-21-2024 15:10-0500 SaO2% (BldA) [Mass fraction] 100 % Joseph Sarabia MD Work Phone: [facility] 09-21-2024 15:08-0500 Body height 172.7 cm Joseph Sarabia MD Work Phone: [facility] 09-21-2024 15:08-0500 Body mass index (BMI) [Ratio] 25.09 kg/m2 Joseph Sarabia MD Work Phone: [facility] 09-21-2024 15:08-0500 Body weight 74.84 kg Joseph Sarabia MD Work Phone: [facility] 07-30-2024 13:58-0400 Body height 172.7 cm Salma Chamberlain MD Work Phone: [facility] 07-30-2024 13:58-0400 Body mass index (BMI) [Ratio] 25.38 kg/m2 Salma Chamberlain MD Work Phone: [facility] 07-30-2024 13:58-0400 Body weight 75.7 kg Salma Chamberlain MD Work Phone: [facility] 07-30-2024 13:58-0400 Diastolic blood pressure 78 mm[Hg] Salma Chamberlain MD Work Phone: [facility] 07-30-2024 13:58-0400 Systolic blood pressure 124 mm[Hg] Salma Chamberlain MD Work Phone: [facility] 06-25-2024 15:47-0400 Diastolic blood pressure 67 mm[Hg] Alisson Sarabia APRN.HORSER UP Work Phone: [facility] 06-25-2024 15:47-0400 Heart rate 83 /min Alisson Sarabia APRN.HORSER UP Work Phone: [facility] 06-25-2024 15:47-0400 Systolic blood pressure 105 mm[Hg] Alisson Sarabia APRN.HORSER UP Work Phone: [facility] 06-25-2024 15:45-0400 Body height 172 cm Alisson Sarabia APRN.HORSER UP Work Phone: [facility] 06-25-2024 15:45-0400 Body mass index (BMI) [Ratio] 25.62 kg/m2 Alisson Sarabia APRN.HORSER UP Work Phone: [facility] 06-25-2024 15:45-0400 Body weight 75.8 kg Alisson Sarabia APRN.HORSER UP Work Phone: [facility] 06-25-2024 15:45-0400 SaO2% (BldA) [Mass fraction] 99 % Alisson Sarabia APRN.HORSER UP Work Phone: [facility] 03-17-2024 07:49-0400 Body height 172.7 cm Alisson Sarabia APRN.HORSER UP Work Phone: [facility] 03-17-2024 07:49-0400 Body mass index (BMI) [Ratio] 26.62 kg/m2 Alisson Sarabia APRN.HORSER UP Work Phone: [facility] 03-17-2024 07:49-0400 Body weight 79.4 kg Alisson Sarabia APRN.HORSER UP Work Phone: [facility] 03-17-2024 07:49-0400 SaO2% (BldA) [Mass fraction] 98 % Alisson Sarabia APRN.HORSER UP Work Phone: [facility] 12-19-2023 14:01-0500 Body height 172.7 cm Joseph Sarabia MD Work Phone: [facility] 12-19-2023 14:01-0500 Body weight 82 kg Joseph Sarabia MD Work Phone: [facility] 12-19-2023 14:01-0500 SaO2% (BldA) [Mass fraction] 97 % Joseph Sarabia MD Work Phone: [facility] 09-25-2023 08:18-0500 Body height 172.72 cm MD Eloina Chi Work Phone: [facility] 09-25-2023 08:18-0500 Body mass index (BMI) [Ratio] 26.4 kg/m2 MD Eloina Chi Work Phone: [facility] 09-25-2023 08:18-0500 Body temperature 98.2 [degF] MD Eloina Chi Work Phone: [facility] 09-25-2023 08:18-0500 Body weight 78.92 kg MD Eloina Chi Work Phone: [facility] 09-25-2023 08:18-0500 Diastolic blood pressure 65 mm[Hg] MD Eloina Chi Work Phone: [facility] 09-25-2023 08:18-0500 Heart rate 63 /min MD Eloina Chi Work Phone: [facility] 09-25-2023 08:18-0500 Respiratory rate 15 /min MD Eloina Chi Work Phone: [facility] 09-25-2023 08:18-0500 Systolic blood pressure 103 mm[Hg] MD Eloina Chi Work Phone: [facility] Encounters Encounter Date Encounter Type Care Provider Facility Start: 06-30-2025 ambulatory Eloina Lula Facility:[facility] Start: 06-29-2025 ambulatory En Truong Facility: [facility] Start: 06-28-[address] En Jade on -[facility] Start: 06-28-2025 End: 06-28-2025 Patient encounter procedure Jayashree Anderson GRILL CHEF- -[facility] Work Phone: Start: 06-28-2025 End: 06-28-2025 ambulatory Eloina Chi MD Work Phone: -[facility] Start: 06-25-2025 End: 06-29-2025 Telephone encounter Alisson Sarabia APRN.CNP Work Phone: Neurology Comment on above: Patient Update Start: 06-22-2025 [facility] Facility:[facility] Start: 06-22-2025 Non-patient / Non-visit Dr. En berry DO [facility] Start: 06-22-[address] En Jade on -Radiation Oncology Start: 06-22-2025 End: 06-22-[address] Simone Collins MD -[facility] Work Phone: Start: 06-22-2025 End: 06-22-2025 ambulatory Eloina Chi MD Work Phone: -[facility] Start: 06-21-2025 End: 06-21-[address] Kalyn Ng MD -[facility] Work Phone: Start: 06-21-2025 End: 06-21-2025 ambulatory Eloina Chi MD Work Phone: [facility] Start: 06-17-2025 End: 06-17-[address] En Guerin DO -[facility] Work Phone: Start: 06-17-2025 End: 06-17-2025 ambulatory Eloina Chi MD Work Phone: -[facility] Start: 06-15-2025 End: 06-15-2025 ambulatory Eloina Chi MD Work Phone: -[facility] Start: 06-15-2025 End: 06-15-2025 Patient encounter procedure Reta Sanchez MD -[facility] Start: 06-15-2025 End: 06-15-2025 ambulatory Eloina Chi Facility:[facility] Start: 06-10-2025 Non-patient / Non-visit Cherelle Delgado si [facility] Work Phone: Start: 06-10-2025 ambulatory Eloina Chi Facility:[facility] Start: 06-08-2025 End: 06-09-2025 ambulatory Reta Sanchez MD Work Phone: 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 Radiology Comment on above: Tonsillar mass Start: 05-06-2025 Registered Recurring ALISSON ESPINOSA GRILL CHEF -Physical Therapy Work Phone: Start: 05-03-2025 End: 05-03-2025 Telephone encounter Alisson Sarabia APRN.HORSER UP Work Phone: Neurology Comment on above: Orders Start: 05-03-2025 End: 05-03-2025 ambulatory Eloina Chi MD Work Phone: -[facility] Start: 05-03-2025 End: 05-03-[address] Anusha Ward MD -Cat Scan [facility] Work Phone: Start: 05-03-2025 End: 05-03-2025 ambulatory Eloina Chi Facility:[facility] Start: 04-08-2025 End: 04-08-2025 Patient encounter procedure Alisson Sarabia APRN.HORSER UP Work Phone: Neurology Comment on above: Parkinson's disease without dyskinesia, with fluctuating manifestations (HCC) (Primary Dx); Orthostatic hypotension; Sialorrhea Start: 04-08-2025 End: 04-08-2025 ambulatory [facility] Facility:[facility] Start: 03-01-2025 End: 03-01-2025 ambulatory Eloina Chi MD Work Phone: [facility] Work Phone: Start: 03-01-2025 End: 03-01-2025 Patient encounter procedure Ariel Duque PA -Laboratory Specimen Work Phone: Start: 03-01-2025 End: 03-01-2025 ambulatory [facility] Facility:[facility] Start: 02-23-2025 End: 02-23-2025 Refill Joseph Connor Sarabia MD Work Phone: Neurology Comment on above: Refill Request Start: 02-08-2025 End: 02-08-2025 Patient encounter procedure Ariel Duque PA -Laboratory Specimen Work Phone: Start: 02-08-2025 End: 02-08-2025 ambulatory Ariel Duque Facility:[facility] Start: 12-28-2024 End: 12-28-2024 ambulatory Eloina Chi MD Work Phone: [facility] Work Phone: Start: 12-28-2024 End: 12-28-2024 Patient encounter procedure Ariel Duque PA -Laboratory, Specimen Work Phone: Start: 12-28-2024 End: 12-28-2024 ambulatory Eloina Lula Facility:[facility] Start: 12-26-2024 End: 12-26-2024 Emergency department patient visit Eloina Chi MD Work Phone: -Emergency Department Work Phone: Start: 12-23-[address] Eloina Chi MD -Speech Therapy Work Phone: Start: 12-23-2024 End: 12-23-2024 ambulatory Eloina Chi Facility:[facility] Start: 11-06-2024 End: 11-09-2024 Telephone encounter Salma Chamberlain MD Work Phone: [facility] Comment on above: Medication Authoriza tion Start: 10-04-2024 End: 10-04-2024 Patient encounter procedure Ranulfo Juarez Hubert [facility] Work Phone: Start: 10-04-2024 End: 10-04-2024 ambulatory Eloina Chi Facility:[facility] Start: 09-28-2024 End: 09-30-2024 ambulatory Salma Chamberlain MD Work Phone: Gastroenterology [facility] Comment on above: [employer] - patient Glenn Parada Start: 09-21-2024 End: 09-22-2024 ambulatory JOSEPH SARABIA Facility:[facility] Start: 09-21-2024 End: 09-22-2024 Office outpatient visit 25 minutes Joseph Sarabia MD Work Phone: Neurological [facility] Comment on above: Parkinson's disease without dyskinesia or fluctuating manifestations (HCC) (Primary Dx); Cognitive and behavioral changes Start: 08-10-2024 End: 08-12-2024 Telephone encounter Alisson Sarabia APRN.HORSER UP Work Phone: Neurology Comment on above: Medication Question Start: 07-31-2024 End: 07-31-2024 ambulatory SALMA CHAMBERLAIN Facility:[facility] Start: 07-30-2024 End: 07-30-2024 [facility] Start: 07-30-2024 End: 07-30-2024 Office outpatient new 60 minutes Salma Chamberlain MD Work Phone: [facility] Comment on above: Constipation, unspec ified constipation type (Primary Dx); Intestinal malabsorption, unspecified type Start: 06-25-2024 End: 06-25-2024 ambulatory ALISSON SARABIA Facility:[facility] Start: 06-25-2024 End: 06-25-2024 Patient encounter procedure Alisson Sarabia APRN.HORSER UP Work Phone: Neurology Comment on above: Orthostatic hypotens ion (Primary Dx); Parkinson's disease without dyskinesia, with fluctuating manifestations (HCC) Start: 03-17-2024 End: 03-17-2024 Patient encounter procedure Alisson Sarabia APRN.CNP Work Phone: Neurology Comment on above: Parkinson's disease without dyskinesia or fluctuating manifestations (HCC) (Primary Dx); Orthostatic hypotension; Constipation, unspecified constipation type Start: 12-19-2023 End: 12-19-2023 Office outpatient new 45 minutes Joseph Sarabia MD Work Phone: Neurology Comment on above: Parkinson's disease without dyskinesia, with fluctuating manifestations (HCC) (Primary Dx) Start: 09-25-2023 End: 09-25-2023 Patient encounter procedure MD Eloina Chi Work Phone: [facility] Work Phone: Start: 09-20-2023 End: 09-20-2023 ambulatory MD Eloina Chi Work Phone: [facility] Work Phone: Start: 09-20-2023 End: 09-20-2023 Patient encounter procedure MD Eloina Chi Work Phone: [facility]-Laboratory, [facility] Procedures Date Procedure Procedure Detail Performing Clinician Start: 06-28-2025 Estimated creatinine clearance Eloina Chi MD Work Phone: Start: 06-15-2025 Positron emission tomography with computed tomography Eloina Chi MD Work Phone: Start: 05-28-2025 Level ii surg pathol ogy gross&microscopic exam Reta Sanchez MD Work Phone: Start: 05-28-2025 Biopsy oropharynx Reta Sanchez MD Work Phone: Start: 05-28-2025 Laryngoscopy flexibl e diagnostic Reta Sanchez MD Work Phone: Start: 05-14-2025 Radiology Comparison study - date and time Reta Sanchez MD Work Phone: Start: 05-03-2025 CT of soft tissues o f neck with contrast Eloina Chi MD Work Phone: Start: 03-01-2025 Bacteria identificat ion test Eloina Chi MD Work Phone: Start: 02-08-2025 Bacteria identificat ion test Eloina Chi MD Work Phone: Start: 12-28-2024 Bacteria identificat ion test Eloina Chi MD Work Phone: Start: 12-28-2024 Throat culture Eloina mueller MD Work Phone: Start: 12-26-2024 Plain x-ray of hand Shaneka Chi MD Work Phone: Start: 12-26-2024 CT cervical spine wi thout contrast Eloina Chi MD Work Phone: Start: 12-26-2024 CT of head without contrast Eloina Chi MD Work Phone: Start: 09-21-2024 BACH SCREENING TEST Zamora dinorah Macario MD Work Phone: Start: 09-25-2023 X-ray of lumbosacral spine MD Eloina Chi Work Phone: Start: 09-25-2023 Radiography of thora cic spine MD Eloina Chi Work Phone: Start: 09-25-2023 X-ray of unilateral ribs, two views without x-ray of chest MD Eloina Chi Work Phone: Plan of Treatment Date Care Activity Detail Author Start: 12-26-2034 Tetanus vaccination Tetanus (Td or Tdap) Booster [facility] Start: 12-26-2034 Urine microalbumin profile DTaP,Tdap,Td Vaccine (2 - Td or Tdap) [facility] Start: 07-31-2027 Diabetes Screening Diabetes Screening [facility] Start: 12-12-2025 Annual Wellness Visit (G0439) Annual Wellness Visit (G0439) [facility] Start: 10-12-2025 End: 10-12-2025 Patient encounter procedure 10/12/2025 11:00 AM EST Office Visit Neurology [address] [id number] Alisson Sarabia APRN.HORSER UP [address] [address] 6 month follow up Neurology Comment on above: 6 month follow up Start: 09-17-2025 End: 09-17-2025 Patient encounter procedure 09/17/2025 8:45 AM EST Office Visit [facility] Otolaryngology (ENT) [address] [place] [id number] Reta Sanchez MD [address] [place] [address] [facility] Otolaryngology (ENT) Start: 07-16-2025 COVID-19 Vaccine (3 - Pfizer risk series) COVID-19 Vaccine (3 - Pfizer risk series) [facility] Start: 07-14-2025 Influenza vaccination Influenza Vaccine (#1) 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) Former smoker Expected: 06/04/2025, Expires: 06/03/2026 [facility] Work Phone: Comment on above: Expected: 06/04/2025, Expires: Start: 05-28-2025 End: 05-28-2025 Patient encounter procedure 05/28/2025 1:00 PM EDT Office Visit [facility] Otolaryngology (ENT) [address] [place] [id number] Reta Sanchez MD [address] [place] [address] [facility] Otolaryngology (ENT) Start: 04-08-2025 End: 04-08-2025 Patient encounter procedure 04/08/2025 3:00 PM EDT Office Visit Neurology [address] [address] Alisson Sarabia APRN.HORSER UP [address] [address] Follow up for Parkinson's Neurology Comment on above: Follow up for Parkinson's Start: 03-01-2025 Throat culture Throat Culture [facility] Start: 12-26-2024 [facility] Start: 12-20-2024 Covid-19 Vaccine ( season) Covid-19 Vaccine () [facility] Start: 12-12-2024 Annual Wellness Visit (G0439) Annual Wellness Visit (G0439) [facility] Start: 10-22-2024 Covid-19 Vaccine () Covid-19 Vaccine () [facility] Start: 10-14-2024 Advance Directive Discussion Advance Directive Discussion [facility] Start: 10-14-2024 Medicare Advantage Annual Wellness Visit Medicare Advantage Annual Wellness Visit [facility] Start: 09-21-2024 End: 09-21-2024 Patient encounter procedure 09/21/2024 3:30 PM EST Office Visit Neurological [facility] [address] [place] [address] Joseph Sarabia MD [address] [place] [address] follow up [facility] Comment on above: follow up Start: 07-31-2024 End: 07-31-2024 ambulatory 07/31/2024 10:30 AM EDT Results Only [place] [facility] [address] [place] [address] Constipation, unspecified constipation type [K59.00] [facility] Comment on above: Constipation, unspecified constipation t ype [K59.00] Start: 07-30-2024 End: 10-29-2024 CBC W Auto Differential panel - Blood COMPLETE BLOOD COUNT AND DIFFERENTIAL Lab Routine Constipation, unspecified constipation type Expected: 07/30/2024, Expires: 10/29/2024 [facility] Comment on above: Expected: 07/30/2024, Expires: Start: 07-30-2024 End: 10-29-2024 [facility] HLA-DQ GENOTYPE [facility] HLA-DQ GENOTYPE Lab Routine Intestinal malabsorption, unspecified type Expected: 07/30/2024, Expires: 10/29/2024 [facility] Comment on above: Expected: 07/30/2024, Expires: Start: 07-30-2024 End: 10-29-2024 CELIAC SCREEN WITH REFLEX CELIAC SCREEN WITH REFLEX Lab Routine Intestinal malabsorption, unspecified type Expected: 07/30/2024, Expires: 10/29/2024 [facility] Comment on above: Expected: 07/30/2024, Expires: Start: 07-30-2024 End: 10-29-2024 Comprehensive metabolic 2000 panel - Serum or Plasma COMPREHENSIVE METABOLIC PANEL Lab Routine Constipation, unspecified constipation type Expected: 07/30/2024, Expires: 10/29/2024 [facility] Work Phone: Comment on above: Expected: 07/30/2024, Expires: Start: 07-30-2024 End: 07-30-2024 Patient encounter procedure 07/30/2024 2:00 PM EDT Office Visit Gastroenterology [facility] [address] [place] [address] Salma Chamberlain MD [address] [place] [address] 2nd opinion, chronic constipation, pt sees Dr Amezcua in [place], adv to have rec faxed [facility] Comment on above: 2nd opinion, chronic constipation, pt se es Dr Amezcua in [place], adv to have rec faxed Start: 07-30-2024 End: 10-29-2024 Thyrotropin [Units/volume] in Serum or Plasma THYROID STIMULATING HORMONE Lab Routine Constipation, unspecified constipation type Expected: 07/30/2024, Expires: 10/29/2024 [facility] Comment on above: Expected: 07/30/2024, Expires: Start: 07-13-2024 COVID-19 Vaccine (2 - Pfizer risk series) COVID-19 Vaccine (2 - Pfizer risk series) [facility] Start: 06-25-2024 End: 06-25-2024 Patient encounter procedure 06/25/2024 4:00 PM EDT Office Visit Neurology [address] [address] Alisson Sarabia, DENNIS.HORSER UP [address] [place] [address] 6 month follow up Neurology Comment on above: 6 month follow up Start: 06-14-2024 Influenza vaccination [facility] Start: 10-14-2023 Advance Directive Discussion Advance Directive Discussion [facility] Start: 10-14-2023 Depression Assessment Depression Assessment [facility] Start: 06-14-2023 Covid-19 Vaccine ( season) Covid-19 Vaccine ( season) [facility] Start: 06-14-2023 Influenza vaccination Influenza Vaccine (#1) [facility] Start: 12-31-2018 RSV Vaccine (1 - 1-dose 75+ series) RSV Vaccine (1 - 1-dose 75+ series) [facility] Start: 12-31-2018 RSV vaccine (adult) (1 - 1-dose 75+ series) RSV vaccine (adult) (1 - 1-dose 75+ series) [facility] Start: 12-31-2008 Pneumococcal Vaccine: 65+ (1 of 1 - PCV) Pneumococcal Vaccine: 65+ (1 of 1 - PCV) [facility] Start: 2004 Hepatitis B (HBV) Vaccine (optional start 60+ years) Hepatitis B (HBV) Vaccine (optional start 60+ years) [facility] Start: 2004 RSV Vaccine (1 - 1-dose 60+ series) RSV Vaccine (1 - 1-dose 60+ series) [facility] Start: 12-31-1993 Pneumococcal vaccination Pneumococcal Vaccine(s) (50+ yrs) (1 of 1 - PCV) [facility] Start: 12-31-1993 Pneumococcal Vaccine: 50+ (1 of 1 - PCV) Pneumococcal Vaccine: 50+ (1 of 1 - PCV) [facility] Start: 12-31-1993 Shingles (RZV) Vaccine (1 of 2) Shingles (RZV) Vaccine (1 of 2) [facility] Start: 12-31-1993 Shingrix Vaccine (1 of 2) Shingrix Vaccine (1 of 2) [facility] Start: 12-31-1988 Diabetes Screening Diabetes Screening [facility] Start: 12-31-1962 Hepatitis A (HAV) Vaccine (optional start 19+ years) Hepatitis A (HAV) Vaccine (optional start 19+ years) [facility] Start: 12-31-1962 Pneumococcal vaccination Pneumococcal Vaccine(s) (50+ yrs) (1 of 2 - PCV) [facility] Start: 12-31-1962 Shingles (RZV) Vaccine (1 of 2) Shingles (RZV) Vaccine (1 of 2) [facility] Start: 12-31-1962 Urine microalbumin profile DTaP,Tdap,Td Vaccine (1 - Tdap) [facility] Start: 12-31-1961 Anxiety Screening Anxiety Screening [facility] Start: 12-31-1961 Depression Screening Depression Screening [facility] Start: 1944 Covid-19 Vaccine (#1) Covid-19 Vaccine (#1) [facility] Bacteria identified in Throat by Culture [facility] Patient Education ED Abrasion ED Hand Contusion ED Facial Contusion ED Head Injury (Adult) [facility] Work Phone: Patient referral [facility] Work Phone: Surgical pathology procedure *SPECIMEN FOR SURGICAL PATHOLOGY Anatomic Pathology Routine Tonsillar mass 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 06-22-2024 influenza virus vaccine, unspecified formulation Alisson Sarabia APRN.HORSER UP Work Phone: [facility] Payers Date Payer Category Payer Self-pay 2022 Medicare [employer] MEDICARE A ETNA MEDICARE PPO [id number] 2022-Present [phone] [address] [place] [address] PPO [id number] 2022 Medicare (Managed Care) [id number]. [id number] 2022 Private Health Insurance 101 [id number] 1945 Unknown [id number] [id number] 32 1945 Unknown [id number] 2.16.840.1.392339.3.579.2.7 32 1944 Unknown [id number] 2.16.840.1.121165.3.579.2.7 32 Unknown [id number] 2.16.840.1.390113.3.579.2.4 62 Unknown [id number] 2.16.840.1.382743.3.579.2.4 62 Unknown [id number] 2.16.840.1.889454.3.579.2.4 62 Unknown [id number] 2.16.840.1.208362.3.579.2.4 62 Unknown [id number] 2.16.840.1.823615.3.579.2.4 62 Unknown [id number] 2.16.840.1.860081.3.579.2.4 62 Unknown [id number] 2.16.840.1.604185.3.579.2.4 62 Unknown [id number] 2.16.840.1.394878.3.579.2.4 62 Unknown [id number] 2.16.840.1.136834.3.579.2.4 62 Unknown [id number] 2.16.840.1.635985.3.579.2.4 62 Unknown [id number] 2.16.840.1.338963.3.579.2.4 62 Unknown [id number] 2.16.840.1.965176.3.579.2.4 62 Unknown [id number] 2.16.840.1.486923.3.579.2.4 62 Unknown [id number] 2.16.840.1.686020.3.579.2.4 62 Unknown [id number] 2.16.840.1.342351.3.579.2.4 62 Unknown [id number] 2.16.840.1.583364.3.579.2.4 62 Unknown [id number] 2.16.840.1.241567.3.579.2.4 62 Unknown [id number] 2.16.840.1.115383.3.579.2.4 62 Social History Date Type Detail Facility Tobacco smoking stat [facility] Unknown if ever smoked [facility] Work Phone: Start: 1945 Sex Assigned At Male [facility] Start: 12-19-2023 End: 06-25-2024 Tobacco smoking status NHIS Ex-smoker [facility] End: 10-14-1969 History of tobacco use Current smoker [facility] End: 10-14-1969 History of tobacco use Cigarette Smoker [facility] Start: 12-19-2023 End: 06-25-2024 Tobacco use and exposure Smokeless tobacco non-user [facility] Start: 12-19-2023 End: 04-04-2025 History of Social function [facility] Start: 12-19-2023 End: 04-04-2025 Tobacco use panel [facility] Start: 10-11-2023 Adult Depression Screening Assessment 0 [facility] Start: 10-11-2023 Gender identity Identifies as male gender (finding) [facility] Start: 07-30-2024 End: 04-08-2025 Alcoholic beverage intake Ex-drinker (finding) [facility] Start: 12-26-2024 End: 05-13-2025 Sex Male (finding) [facility] Tobacco smoking stat [facility] Tobacco smoking consumption unknown [facility] Start: 1945 Sex assigned at Not on file [facility] Clinical Notes 12-19-2023 to 06-29-2025 Telephone Encounter - Alisson Sarabia APRN.CNP - 06/29/2025 7:20 PM EDTTelephone Encounter - Alisson Sarabia APRN.CNP - 06/29/2025 7:20 PM EDT Note Date & Type Note Facility 06-29-2025 Telephone encount er Note I called and spoke with his as he was in the shower. As noted, he is having surgery tomorrow to prepare him for his upcoming cancer treatment. If the numbness and tingling continue I can certainly send him to a neuromuscular specialist but it sounds like he is going to be very busy so we will wait to see how he does with the treatment but I can make a referral at any time if he decides to do so. We also talked about keeping the oncologist involved in any of our decision making in regard to treatment so that everything being done is in his best interest and not interfering with treatment, confusing possible side effects, etc. his next appointment is set up after he should be done with the treatment but I asked her to let me know if there is anything we can help out with in the meantime. Alisson Sarabia APRN-GARY [facility] 06-29-2025 Miscellaneous Notes Formattin g of this note might be different from the original. I called and spoke with his as he was in the shower. As noted, he is having surgery tomorrow to prepare him for his upcoming cancer treatment. If the numbness and tingling continue I can certainly send him to a neuromuscular specialist but it sounds like he is going to be very busy so we will wait to see how he does with the treatment but I can make a referral at any time if he decides to do so. We also talked about keeping the oncologist involved in any of our decision making in regard to treatment so that everything being done is in his best interest and not interfering with treatment, confusing possible side effects, etc. his next appointment is set up after he should be done with the treatment but I asked her to let me know if there is anything we can help out with in the meantime. 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 Patient had complaints of numbness to feet and muscle jerking. Requesting nurse call to discuss. Yesterday morning patient got out of bed to go to bathroom around 0600. He was not able to stand. Legs were weak and feet were numb. Stabbing pain to right shoulder joint. Spouse was able to assist to bathroom and return to bed. Denies dizziness and feeling lightheaded. Patient reported I couldn't control my muscles. He has experienced leg weakness first thing in the morning but he has always been walk. After returning to sleep patient woke feeling better. No complaints the remainder of the day Today has been uneventful. Recent diagnosis of throat cancer. PEG and med port will be placed 06/30/25. Will be starting radiation and chemo the following week. Treatments, PEG and port placement will be done at [facility]. ENT is [facility] provider. documented in this encounter [facility] 06-28-2025 Progress note Note Date/Time June 28, 2025 4:32pm [facility] [place] [address] OFFICE VISIT Date of Service: 06/28/25 1502 MR#: [id number] Acct: [id number] Name: GLENN PARADA DEV Rep #: [id number] : 1945 From: Jayashree Costa ch GRILL CHEF GRILL CHEF-C Age/Sex: 80/M Location: [facility] Status: Signed HPI Subjective Date of Service 06/28/25 Chief Complaint Chemotherapy Education- carboplatin/paclitaxel History of Present Illness 80-year-old man with Parkinson's disease presented with sore throat. He was found to have left tonsillar mass. CT scan of the neck on 05/03/2025 showed left tonsillar mass 3.2 cm, necrotic level 2 node 1.4 cm and additional nodes in level 2 and 3. He was referred to Dr. Sanchez at [facility], had left tonsil biopsy on 05/28/2025, pathology showed Invasive squamous cell carcinoma, HPV positive. Chemoradiation therapy was suggested as definitive treatment. Interval History The patient is presenting to clinic accompanied by spouse to discuss chemotherapy, carboplatin/paclitaxel. Appetite good, meats limited to chicken and ground beef, otherwise no dysphagia limiting nutritional intake. Performs self care ADLs independently. + Neuropathy involving feet bilat. [facility] Medical History (Updated 06/28/25 @ 15:30 by Jayashree Anderson GRILL CHEF, GRILL CHEF-C) Encounter for education Wears glasses Cancer Alcohol use History of steroid therapy Thyroid disease Uses wheelchair Arthritis Prostate disease Low iron DVT (deep venous thrombosis) Back pain Migraine headache Parkinson's disease Orthostatic hypotension Syncope Dietary restriction History of diverticulitis Gastric reflux Chronic cough Former smoker History of pain when walking History of stress test History of echocardiogram Cardiology follow-up encounter Celiac disease Surgical History Hx of right cataract extraction Hx of left cataract extraction Hx of eye surgery History of hydrocelectomy Hx of hernia repair Hx of colonoscopy Family History Brother Cancer THROAT Mother Leukemia Sister Breast cancer Social History household members: significant other housing: house current occupational status: retired Smoking Status: Former smoker alcohol intake: never substance use type: does not use ROS ROS Narrative Negative except as documented in the interval HPI Intake Vital Signs 06/22/25 08:24 06/28/25 15:02 Height 5 ft 8 in 5 ft 8 in Weight: 157 lb 9 oz 157 lb 1 oz BMI 23.9 23.8 BP 96/60 130/80 H Blood Pressure Location Lt brachial Lt brachial Position Sitting Sitting Respiration 16 18 Pulse 84 76 Pulse Source Monitor Monitor Temp 98.3 F 98.2 F Temperature Source Temporal Artery Temporal Artery Pulse Oximetry (%) 97 98 Oxygen Delivery Method room air room air Intake Is patient in pain?: No Allergies gluten Allergy (Verified 06/28/25 15:06) Abd cramps/diarrhea aripiprazole Adverse Reaction (Verified 06/28/25 15:06) unknown haloperidol Adverse Reaction (Verified 06/28/25 15:06) unknown metoclopramide Adverse Reaction (Verified 06/28/25 15:06) unknown olanzapine Adverse Reaction (Verified 06/28/25 15:06) unknown prochlorperazine Adverse Reaction (Verified 06/28/25 15:06) unknown promethazine Adverse Reaction (Verified 06/28/25 15:06) unknown Medications ?Medication ?Instructions ?Recorded ?Confirmed ?Type levothyroxine 50 mcg tablet 50 mcg PO QDAY 03/05/24 History omeprazole 40 mg capsule,delayed 40 mg PO QDAY 4 06/28/25 History release tamsulosin 0.4 mg capsule 0.4 mg PO BID 03/05/2406/28 History prucalopride 2 mg tablet 2 mg PO DAILY 05/09/2406/28 History (Motegrity) carbidopa ER 25 mg-levodopa 100 mg 1 tab PO .qid 06/1006/28/25 History tablet,extended release fludrocortisone 0.1 mg tablet 0.1 mg PO QDAY 06/17/25 06/28/25 History lidocaine-prilocaine 2.5 %-2.5 % 1 applic topical ONCE PRN port 06/28/25 06/28/25 Rx topical cream access 30 days #30 grams ondansetron 8 mg disintegrating 8 mg PO Q8H PRN nausea and 06/28/25 06/28/25 Rx tablet vomiting #30 tabs Have you fallen in the past year?: No Central Venous Access Central Venous Access: No Laboratory Tests 06/28/25 14:31 WBC 8.4 Hgb 12.1 L Hct 36.4 L Plt Count 262 Absolute Neuts (auto) 4.3 Sodium 137 Potassium 3.7 Chloride 102 Carbon Dioxide 24.9 BUN 16 Creatinine 1.17 Calcium 9.0 Total Bilirubin 0.46 AST 17 ALT 5 Alkaline Phosphatase 71 Albumin 3.7 Exam Physical Exam Narrative ECOG 1 Const alert, oriented x3 and no apparent distress HEENT normocephalic Eyes General Eye: normal appearance of both eyes Psych mental status grossly normal Attitude: calm and engaged Coding Level of Care Code Off vis,est,level 5 Exam Problem Focused Diagnoses 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 Patient and his agree to proceed. Plan: The patient has been thoroughly educated to risks/benefits associated with carboplatin, paclitaxel. Specifically, he has been educated to potential side effects, recommendations for symptom management, and circumstances in which he should contact provider immediately, such as the development of any signs/symptoms of infection inclusive of temperature > 100.4. Encouraged to go directly to ED should fever occur outside normal clinic hours. He has been provided written educational information and after hours contact information andprescriptions for prn antiemetics/EMLA cream. A significant amount of time was allotted for questions. All the patient's concerns were addressed to his satisfaction and he is agreeable to proceed. Tentatively, he will proceed with port PEG tube placement on 06/30/2025 and commence with cycle 1 carboplatin paclitaxel on 07/05/2025 concurrent with radiation start. 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 Plan: Will continue managing as stage I oropharyngeal cancer p16 positive, will assessnodule found on PET/CT scan after treatment. (4) Encounter for education: Status: Acute Plan: I spent 55 minutes today reviewing labs, records and history. Time includes coordination of care and interpretation of tests. This also includes time that I spent with the patient for the education, as well as documenting clinical information. Medications: New lidocaine-prilocaine 2.5-2.5 % 1 applic topical ONCE 30 days PRN 30 grams 2RF port access C10.9 - Malignant neoplasm of oropharynx, unspecified, C44.92 - Squamous cell carcinoma of skin, unspecified, C77.0 - Secondary and unspecified 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, face and neck ondansetron 8 mg PO Q8H PRN 30 tabs 1RF nausea and vomiting C10.9 - Malignant neoplasm of oropharynx, unspecified Clinical Quality Measures Falls Risk Screening/Assistive Devices Have you fallen in the past year?: No 06/28/25 1632 <Electronically signed by Jayashree juarez NP, NP-C> Date _ Jayashree ZURITAC Cosigner Signature: Date (if applicable) CC: ~ [facility] Work Phone: [phone]) 215-167609-15-2025 Progress [facility] [address] Center[address] [place] [address] OFFICE VISIT Date of Service: 06/28/25 1502 MR#: [id number] Acct: [id number] Name: GLENN PARADA DEV Rep #: [id number] : 1945 From: Jayashree Costa ch GRILL CHEF GRILL CHEF-C Age/Sex: 80/M Location: [facility] Status: Signed HPI Subjective Date of Service 06/28/25 Chief Complaint Chemotherapy Education- carboplatin/paclitaxel History of Present Illness 80-year-old man with Parkinson's disease presented with sore throat. He was found to have left tonsillar mass. CT scan of the neck on 05/03/2025 showed left tonsillar mass 3.2 cm, necrotic level 2 node 1.4 cm and additional nodes in level 2 and 3. He was referred to Dr. Sanchez at [facility], had lefttonsil biopsy on 05/28/2025, pathology showed Invasive squamous cell carcinoma, HPV positive. Chemoradiation therapy was suggested as definitive treatment. Interval History The patient is presenting to clinic accompanied by spouse to discuss chemotherapy, carboplatin/paclitaxel. Appetite good, meats limited to chicken and ground beef, otherwise no dysphagia limiting nutritional intake. Performs self care ADLs independently. + Neuropathy involving feet bilat. [facility] Medical History (Updated 06/28/25 @ 15:30 by Jayashree Anderson GRILL CHEF, GRILL CHEF-C) Encounter for education Wears glasses Cancer Alcohol use History of steroid therapy Thyroid disease Uses wheelchair Arthritis Prostate disease Low iron DVT (deep venous thrombosis) Back pain Migraine headache Parkinson's disease Orthostatic hypotension Syncope Dietary restriction History of diverticulitis Gastric reflux Chronic cough Former smoker History of pain when walking History of stress test History of echocardiogram Cardiology follow-up encounter Celiac disease Surgical History Hx of right cataract extraction Hx of left cataract extraction Hx of eye surgery History of hydrocelectomy Hx of hernia repair Hx of colonoscopy Family History Brother Cancer THROAT Mother Leukemia Sister Breast cancer Social History household members: significant other housing: house current occupational status: retired Smoking Status: Former smoker alcohol intake: never substance use type: does not use ROS ROS Narrative Negative except as documented in the interval HPI Intake Vital Signs 06/22/25 08:24 06/28/25 15:02 Height 5 ft 8 in 5 ft 8 in Weight: 157 lb 9 oz 157 lb 1 oz BMI 23.9 23.8 BP 96/60 130/80 H Blood Pressure Location Lt brachial Lt brachial Position Sitting Sitting Respiration 16 18 Pulse 84 76 Pulse Source Monitor Monitor Temp 98.3 F 98.2 F Temperature Source Temporal Artery Temporal Artery Pulse Oximetry (%) 97 98 Oxygen Delivery Method room air room air Intake Is patient in pain?: No Allergies gluten Allergy (Verified 06/28/25 15:06) Abd cramps/diarrhea aripiprazole Adverse Reaction (Verified 06/28/25 15:06) unknown haloperidol Adverse Reaction (Verified 06/28/25 15:06) unknown metoclopramide Adverse Reaction (Verified 06/28/25 15:06) unknown olanzapine Adverse Reaction (Verified 06/28/25 15:06) unknown prochlorperazine Adverse Reaction (Verified 06/28/25 15:06) unknown promethazine Adverse Reaction (Verified 06/28/25 15:06) unknown Medications ?Medication ?Instructions ?Recorded ?Confirmed ?Type levothyroxine 50 mcg tablet 50 mcg PO QDAY 03/05/24 History omeprazole 40 mg capsule,delayed 40 mg PO QDAY 4 06/28/25 History release tamsulosin 0.4 mg capsule 0.4 mg PO BID 03/05/2406/28 History prucalopride 2 mg tablet 2 mg PO DAILY 05/09/2406/28 History (Motegrity) carbidopa ER 25 mg-levodopa 100 mg 1 tab PO .qid 06/1006/28/25 History tablet,extended release fludrocortisone 0.1 mg tablet 0.1 mg PO QDAY 06/17/25 06/28/25 History lidocaine-prilocaine 2.5 %-2.5 % 1 applic topical ONCE PRN port 06/28/25 06/28/25 Rx topical cream access 30 days #30 grams ondansetron 8 mg disintegrating 8 mg PO Q8H PRN nausea and 06/28/25 06/28/25 Rx tablet vomiting #30 tabs Have you fallen in the past year?: No Central Venous Access Central Venous Access: No Laboratory Tests 06/28/25 14:31 WBC 8.4 Hgb 12.1 L Hct 36.4 L Plt Count 262 Absolute Neuts (auto) 4.3 Sodium 137 Potassium 3.7 Chloride 102 Carbon Dioxide 24.9 BUN 16 Creatinine 1.17 Calcium 9.0 Total Bilirubin 0.46 AST 17 ALT 5 Alkaline Phosphatase 71 Albumin 3.7 Exam Physical Exam Narrative ECOG 1 Const alert, oriented x3 and no apparent distress HEENT normocephalic Eyes General Eye: normal appearance of both eyes Psych mental status grossly normal Attitude: calm and engaged Coding Level of Care Code Off vis,est,level 5 Exam Problem Focused Diagnoses 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 Patient and his agree to proceed. Plan: The patient has been thoroughly educated to risks/benefits associated with carboplatin, paclitaxel.Specifically, he has been educated to potential side effects, recommendations for symptom management, and circumstances in which he should contact provider immediately, such as the development of any signs/symptoms of infection inclusive of temperature > 100.4. Encouraged to go directly to ED should fever occur outside normal clinic hours. He has been provided written educational information and after hours contact information andprescriptions for prn antiemetics/EMLA cream. A significant amount of time was allotted for questions. All the patient's concerns were addressed to his satisfaction and he is agreeable to proceed. Tentatively, he will proceed with port PEG tube placement on 06/30/2025 and commence with cycle 1 carboplatin paclitaxel on 07/05/2025 concurrent with radiation start. 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 Plan: Will continue managing as stage I oropharyngeal cancer p16 positive, will assessnodule found on PET/CT scan after treatment. (4) Encounter for education: Status: Acute Plan: I spent 55 minutes today reviewing labs, records and history. Time includes coordination of care and interpretation of tests. This also includes time that I spent with the patient for the education, as well as documenting clinical information. Medications: New lidocaine-prilocaine 2.5-2.5 % 1 applic topical ONCE 30 days PRN 30 grams 2RF port access C10.9 - Malignant neoplasm of oropharynx, unspecified, C44.92 - Squamous cell carcinoma of skin, unspecified,C77.0 - Secondary and unspecified 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, face and neck ondansetron 8 mg PO Q8H PRN 30 tabs 1RF nausea and vomiting C10.9 - Malignant neoplasm of oropharynx, unspecified Clinical Quality Measures Falls Risk Screening/Assistive Devices Have you fallen in the past year?: No 06/28/25 1632 h GRILL CHEF GRILL CHEF-C> Date _ Jayashree Justin GRILL CHEF GRILL CHEF-C Cosigner Signature: Date (if applicable) CC: ~ 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 Patient had complaints of numbness to feet and muscle jerking. Requesting nurse call to discuss. Yesterday morning patient got out of bed to go to bathroom around 0600. He was not able to stand. Legs were weak and feet were numb. Stabbing pain to right shoulder joint. Spouse was able to assist to bathroom and return to bed. Denies dizziness and feeling lightheaded. Patient reported I couldn'tcontrol my muscles. He has experienced leg weakness first thing in the morning but he has always been walk. After returning to sleep patient woke feeling better. No complaints the remainder of the day Today has been uneventful. Recent diagnosis of throat cancer. PEG and med port will be placed 06/30/25. Will be starting radiation and chemo the following week. Treatments, PEG and port placement will be done at [facility]. ENT is [facility] provider. [facility]09-08-2025 Progress [facility] [address] [place] [address] OFFICE VISIT Date of Service: 06/21/25 MR#: [id number] Acct: [id number] Name: GLENN PARADA DEV Rep #: [id number] : 1945 Provider: Dr. Diogenes Ng MD Age/Sex: 80/M Location: [facility] Status: Signed Intake Vital Signs 06/17/25 13:42 06/18/25 10:30 06/21/25 13:38 Height 5 ft 8 in 5 ft 8 in 5 ft 8 in Weight: 158 lb 4 oz 160 lb 2 oz BMI 24.0 24.3 BP 88/59 L 105/66 Blood Pressure Location Lt brachial Rt brachial Position Sitting Sitting Respiration 16 17 Pulse 82 98 Pulse Source Monitor Monitor Temp 96.6 F L Pulse Oximetry (%) 97 99 Oxygen Delivery Method room air room air Intake Visit Reasons: PORT AND PEG Chief Complaint: port and peg Is patient in pain?: No Allergies gluten Allergy (Verified 06/21/25 13:39) Abd cramps/diarrhea aripiprazole Adverse Reaction (Verified 06/21/25 13:39) unknown haloperidol Adverse Reaction (Verified 06/21/25 13:39) unknown metoclopramide Adverse Reaction (Verified 06/21/25 13:39) unknown olanzapine Adverse Reaction (Verified 06/21/25 13:39) unknown prochlorperazine Adverse Reaction (Verified 06/21/25 13:39) unknown promethazine Adverse Reaction (Verified 06/21/25 13:39) unknown Medications ?Medication ?Instructions ?Recorded ?Confirmed ?Type levothyroxine 50 mcg tablet 50 mcg PO QDAY 03/05/24 History omeprazole 40 mg capsule,delayed 40 mg PO QDAY 4 06/21/25 History release tamsulosin 0.4 mg capsule 0.4 mg PO BID 03/05/2406/21 History prucalopride 2 mg tablet 2 mg PO DAILY 05/09/2406/21 History (Motegrity) carbidopa ER 25 mg-levodopa 100 mg 1 tab PO .qid 06/1006/21/25 History tablet,extended release peg 3350-electrolytes 236 ml PO PRN constipation 06/1006/21/25 History gram-22.74 gram-6.74 gram-5.86 gram solution fludrocortisone 0.1 mg tablet 0.1 mg PO QDAY 06/17/25 06/21/25 History Have you fallen in the past year?: No PFSH Medical History (Updated 06/21/25 @ 13:37 by Joan Wolff) Celiac disease Surgical History History of hernia repair Family History Brother Cancer THROAT Mother Leukemia Sister Breast cancer Social History household members: significant other housing: house current occupational status: retired Smoking Status: Former smoker alcohol intake: never substance use type: does not use HPI HPI HPI: 80-year-old male presents for port and PEG placement due to squamous cell carcinoma of the oropharynx, 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 Patient's treatment may start 06/30 or 07/05. Patient has an upcoming appointment with oncology. ROS General General: Yes weight change (loss) and fatigue; No appetite, colon cancer or breast cancer HEENT HEENT: Yes eye surgery and swollen glands; No difficulty swallowing, eye injury or hoarseness Endo Endocrine: Yes thyroid disease; No diabetes mellitus, thyroid cancer, Hair loss, heat intolerance or cold intolerance Skin Skin: No rash or changing moles Musc Musculoskeletal: Yes back problems and arthritis; No rheumatoid arthritis, gout or joint pain Cardio Cardiovascular: No murmur, pacemaker, heart disease, atrial fibrillation, high blood pressure, heart attack, heart stent, palpitations, shortness of breath with exertion or chest pain Psych Psychiatric: No depression, anxiety or hearing voices Resp Respiratory: No shortness of breath, No sleep apnea, Yes cough, No COPD, No asthma, No emphysema and No wheezing Gastro Gastrointestinal: No abdominal pain, No nausea or vomiting, No diarrhea, Yes constipation, No bloodin stool, Yes acid reflux, No hemorrhoids, No ulcers, No gallbladder problem and No black,tarry stools Yevgeniy Hematologic: No blood thinners, No blood disorders, No bleeding, No anemia and No blood clots Neuro Neurologic: No numbness and No tingling Exam Const General: cooperative, healthy appearing, comfortable and no acute distress [facility] Head: normocephalic and atraumatic Neck Neck: supple Chest Other: Palpation of bilateral upper chest normal Resp Effort & Inspection: normal respiratory effort Cardio Rate: regular rate GI Inspection: non-distended Palpation: soft and nontender Skin General: no rashes or lesions noted Neuro General: CN's II-XI intact bilaterally Extrem General: normal to inspection Psych Mental Status: mental status grossly normal Attitude: cooperative Assessment and Plan Assessment and Plan (1) Encounter for insertion of venous access port: Status: Acute (2) Encounter for PEG (percutaneous endoscopic gastrostomy): Status: Acute (3) 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 Right IJ possible left?currently plan to schedule 06/30/2025 AM Patient has been counseled as to the risks/benefits of the procedure. I have explained the risks ofthe surgery, including but not limited to: infection, bleeding, injury to any blood vessels/nerves,injury to lungs (such as pneumothorax or hemothorax and need for chest tube), not having any access, nonfunctioning of port due to thrombosis, infection of port, etc. the patient understands and agrees to proceed. I have answered all the patient's questions to the patient?s satisfaction and the patient has no further questions. I have discussed the above with the patient. I have offered the patient esophagogastroduodenoscopy with percutaneous gastrostomy tube placement I have explained the risks/benefits of the procedure and described the procedure. I have discussed the risks with the patient, including but not limited to: infection, bleeding, perforation of the GItract requiring emergency surgery, inability to complete the procedure, injury to any internal organs, complications of anesthesia, etc. - the patient understands and agrees to proceed. I have answered all the patient's questions to the patient's satisfaction and the patient has no further questions. Kalyn Ng M.D. Pager: [phone] [facility] [address] [place] [address], [address] [place] [address] Office: 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 Eloina Chi MD; Dr. En Guerin, DO ~ [facility]09-08-2025 Progress note Author Kalyn Ng [facility] Note Date/Time June 21, 2025 2:06pm [facility] [address] [place] [address]. [address] [place] [address] OFFICE VISIT Date of Service: 06/21/25 MR#: [id number] Acct: [id number] Name: GLENN PARADA DEV Rep #: [id number] : 1945 Provider: Dr. Diogenes Ng MD Age/Sex: 80/M Location: [facility] Status: Signed Intake Vital Signs 06/17/25 13:42 06/18/25 10:30 06/21/25 13:38 Height 5 ft 8 in 5 ft 8 in 5 ft 8 in Weight: 158 lb 4 oz 160 lb 2 oz BMI 24.0 24.3 BP 88/59 L 105/66 Blood Pressure Location Lt brachial Rt brachial Position Sitting Sitting Respiration 16 17 Pulse 82 98 Pulse Source Monitor Monitor Temp 96.6 F L Pulse Oximetry (%) 97 99 Oxygen Delivery Method room air room air Intake Visit Reasons: PORT AND PEG Chief Complaint: port and peg Is patient in pain?: No Allergies gluten Allergy (Verified 06/21/25 13:39) Abd cramps/diarrhea aripiprazole Adverse Reaction (Verified 06/21/25 13:39) unknown haloperidol Adverse Reaction (Verified 06/21/25 13:39) unknown metoclopramide Adverse Reaction (Verified 06/21/25 13:39) unknown olanzapine Adverse Reaction (Verified 06/21/25 13:39) unknown prochlorperazine Adverse Reaction (Verified 06/21/25 13:39) unknown promethazine Adverse Reaction (Verified 06/21/25 13:39) unknown Medications ?Medication ?Instructions ?Recorded ?Confirmed ?Type levothyroxine 50 mcg tablet 50 mcg PO QDAY 03/05/24 History omeprazole 40 mg capsule,delayed 40 mg PO QDAY 4 06/21/25 History release tamsulosin 0.4 mg capsule 0.4 mg PO BID 03/05/2406/21 History prucalopride 2 mg tablet 2 mg PO DAILY 05/09/2406/21 History (Motegrity) carbidopa ER 25 mg-levodopa 100 mg 1 tab PO .qid 06/1006/21/25 History tablet,extended release peg 3350-electrolytes 236 ml PO PRN constipation 06/1006/21/25 History gram-22.74 gram-6.74 gram-5.86 gram solution fludrocortisone 0.1 mg tablet 0.1 mg PO QDAY 06/17/25 06/21/25 History Have you fallen in the past year?: No [facility] Medical History (Updated 06/21/25 @ 13:37 by Joan Wolff) Celiac disease Surgical History History of hernia repair Family History Brother Cancer THROAT Mother Leukemia Sister Breast cancer Social History household members: significant other housing: house current occupational status: retired Smoking Status: Former smoker alcohol intake: never substance use type: does not use HPI HPI HPI: 80-year-old male presents for port and PEG placement due to squamous cell carcinoma of the oropharynx, 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 Patient's treatment may start 06/30 or 07/05. Patient has an upcoming appointment with oncology. ROS General General: Yes weight change (loss) and fatigue; No appetite, colon cancer or breast cancer HEENT HEENT: Yes eye surgery and swollen glands; No difficulty swallowing, eye injury or hoarseness Endo Endocrine: Yes thyroid disease; No diabetes mellitus, thyroid cancer, Hair loss, heat intolerance or cold intolerance Skin Skin: No rash or changing moles Musc Musculoskeletal: Yes back problems and arthritis; No rheumatoid arthritis, gout or joint pain Cardio Cardiovascular: No murmur, pacemaker, heart disease, atrial fibrillation, high blood pressure, heart attack, heart stent, palpitations, shortness of breath with exertion or chest pain Psych Psychiatric: No depression, anxiety or hearing voices Resp Respiratory: No shortness of breath, No sleep apnea, Yes cough, No COPD, No asthma, No emphysema and No wheezing Gastro Gastrointestinal: No abdominal pain, No nausea or vomiting, No diarrhea, Yes constipation, No blood in stool, Yes acid reflux, No hemorrhoids, No ulcers, No gallbladder problem and No black,tarry stools Yevgeniy Hematologic: No blood thinners, No blood disorders, No bleeding, No anemia and No blood clots Neuro Neurologic: No numbness and No tingling Exam Const General: cooperative, healthy appearing, comfortable and no acute distress [facility] Head: normocephalic and atraumatic Neck Neck: supple Chest Other: Palpation of bilateral upper chest normal Resp Effort & Inspection: normal respiratory effort Cardio Rate: regular rate GI Inspection: non-distended Palpation: soft and nontender Skin General: no rashes or lesions noted Neuro General: CN's II-XI intact bilaterally Extrem General: normal to inspection Psych Mental Status: mental status grossly normal Attitude: cooperative Assessment and Plan Assessment and Plan (1) Encounter for insertion of venous access port: Status: Acute (2) Encounter for PEG (percutaneous endoscopic gastrostomy): Status: Acute (3) 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 Right IJ possible left?currently plan to schedule 06/30/2025 AM Patient has been counseled as to the risks/benefits of the procedure. I have explained the risks of the surgery, including but not limited to: infection, bleeding, injury to any blood vessels/nerves, injury to lungs (such as pneumothorax or hemothorax and need for chest tube), not having any access, nonfunctioning of port due to thrombosis, infection of port, etc. the patient understands and agrees to proceed. I have answered all the patient's questions to the patient?s satisfaction and the patient has no further questions. I have discussed the above with the patient. I have offered the patient esophagogastroduodenoscopy with percutaneous gastrostomy tube placement I have explained the risks/benefits of the procedure and described the procedure. I have discussed the risks with the patient, including but not limited to: infection, bleeding, perforation of the GI tract requiring emergency surgery, inability to complete the procedure, injury to any internal organs, complications of anesthesia, etc. - the patient understands and agrees to proceed. I have answered all the patient's questions to the patient's satisfaction and the patient has no further questions. Kalyn Ng M.D. Pager: [phone] [facility] [address] [place] [address], [address] [place] [address] Office: [phone] Coding Level of Care Code Off vis,new,level 3 Diagnoses Encounter for insertion of venous access port Z45.2 Encounter for PEG (percutaneous endoscopic gastrostomy) Z43.1 Squamous cell carcinoma of oropharynx C10.9 Clinical Quality Measures Falls Risk Screening/Assistive Devices Have you fallen in the past year?: No 06/21/25 1406 <Electronically signed by Kalyn Hudson am, MD> Date _ Kalyn Ng MD Cosigner Signature: Date (if applicable) CC: Dr. Eloina Chi MD; Dr. En Guerin DO ~ 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 acute June 22, 2 025 8:18am Squamous cell carcinoma of oropharynx acute June 22, 2 025 8:18am [facility] Work Phone: 1(828) 128-789209-04-2025 Evaluation note* Diagnosis Onset Date Resolution Status Admit Date 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 acute June 17, 2 025 1:25pm Squamous cell carcinoma of oropharynx acute June 17, 2 025 1:25pm Encounter for insertion of venous access port acute June 1:21pm Encounter for PEG (percutaneous endoscopic gastrostomy) acute June 21, 2 025 1:21pm Squamous cell carcinoma of oropharynx acute June 21, 2 025 1:21pm Nodule of chest wall acute Jun 8:18am 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 acute June 22, 2 025 8:18am Squamous cell carcinoma of oropharynx acute June 22, 2 025 8:18am [facility] Work Phone: 1(166) 579-961309-04-2025 Evaluation note* Diagnosis Onset Date Resolution Status Admit Date 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 acute June 17, 2 025 1:25pm Squamous cell carcinoma of oropharynx acute Viviane 4th, 2 025 1:25pm Encounter for insertion of venous access port acute June 1:21pm Encounter for PEG (percutaneous endoscopic gastrostomy) acute June 21, 2 025 1:21pm Squamous cell carcinoma of oropharynx acute June 21, 2 025 1:21pm Nodule of chest wall acute Jun 8:18am 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 acute June 22, 025 8:18am Squamous cell carcinoma of oropharynx acute June 22 025 8:18am Encounter for education acute S te2024 2:20pm Nodule of chest wall acute Jun 2:20pm 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 acute June 28, 2025 2:20pm Squamous cell carcinoma of oropharynx acute June 28, 2025 2:20pm [facility] Work Phone: 1(687) 148-413908-26-2025 Telephone encounter Note* Telephone Encounter - Andreia Acevedo - 06/08/2025 4:24 PM EDT Error [id number] Miscellaneous Notes* Telephone Encounter - Andreia Acevedo - 06/08/2025 4:24 PM EDT Error documented in this [id number] Discharge summary Author Mayra Clements [facility] Note Date/Time June 07, 2025 1: 30pm [facility] Physical Therapy [facility] [facility] [place] [address] / REHABILITATION SERVICES DISCHARGE SUMMARY MR#: [id number] Acct: [id number] Name: GLENN PARADA DEV Rep #: [id number] : 1945 80 From: Mayra Clements MP T Referring Dr.: MARNI BOWSER Status: REG RCR Insurance: [employer] [facility] SELF PAY INSURANCE Discharge Summary D/C summary: It has been my pleasure to treat GLENN PARADA referred by MARNI BOWSER, with the diagnosis of PD for a [...] please feel free to call me at [phone]. Thank you for the referral of thispatient. Sincerely, AMRITA Thompson Balance/Gait/Functional tests Balance/Special Test Scores Functional Gait Assessment Score: 21 % Disability: 30.0000 Lower Extremity Functional Score: 57 Improvement % Improvement: 25 <Electronically signed by Mayra Clements MPT> 06/07/25 1330 CC: Dr. Eloina Chi MD; MARNI BOWSER ~ Signed [facility] Work Phone: 1(629) 392-267908-25-2025 Discharge summary [facility] Physical [facility] [address] [facility] [place] [address] / REHABILITATION SERVICES DISCHARGE SUMMARY MR#: [id number] Acct: [id number] Name: GLENN PARADA Rep #: [id number] : 1945 80 From: Mayra Melton Referring Dr.: MARNI BOWSER Status: REG RCR Insurance: [employer] [facility] SELF PAY INSURANCE Discharge Summary D/C summary: It has been my pleasure to treat GLENN PARADA referred by MARNI BOWSER, with the diagnosis of PD for a [...] please feel free to call me at [phone]. Thank you for the referral of thispatient. Sincerely, Mayra Clements, AMRITA Balance/Gait/Functional tests Balance/Special Test Scores Functional Gait Assessment Score: 21 % Disability: 30.0000 Lower Extremity Functional Score: 57 Improvement % Improvement: 06/07/25 1330 CC: Dr. Eloina Chi MD; MARNI BOWSER ~ Signed [facility]08-22-2025 History of Present illness Narrative* Reta Sanchez MD - 06/04/2025 12:08 PM EDT Images from the original note were not included. Documentation: Mode: Telephone Patient Patient Work Phone: Patient Cell Preferred phone: [phone] Consent: I confirmed patient understanding of the [...] Parkinson's who presents today, 06/04/2025, at the [facility] for follow up regarding left oropharyngeal [...] Administered Date(s) Administered COVID-19 Vaccine (12+ yrs, Brazzlebox) mRNA, spike protein, LNP, pres. free, 30 mcg/0.3mL dose, lola-sucrose (OPU=634) 06/22/2024 Influenza, injectable, high dose seasonal, trivalent, preservative free (HHD=545) 06/22/2024 Tdap (LPI=525) 12/26/2024 Pathologic Review: Final Diagnosis A. Oropharyngeal, [...] -Discussed his case with Dr. Guerin in [place] for definitive treatment and external referrals placed today -discussed the patient that he will need referrals to [facility], nutrition and dentistry and social work but this can likely be arranged with Dr. Guerin's -we will plan for follow up 2-3 months after treatment with me Thank you so much for allowing me to participate in the care of this patient. Please feel free to contact me if you have any questions or concerns. Reta Sanchez MD [employer] Department of Otolaryngology - Head and Neck Surgery [facility], [facility] Pager: [phone] documented in this [id number] NoteTIME OUT A TIME OUT was performed prior to the procedure using active communication to verify: Correct patient: Yes Correct Procedure/site: Yes Patient tolerated the procedure well. We will call with results and plan. Kia Arthur RNThe [employer]08-15-2025 History of Present illness Narrative* Kia Arthur [...] provider is running behind Helga Yi., MTA * Reta Sanchez MD - 05/28/2025 11:30 AM EDT Images from the original note were not included. OTOLARYNGOLOGY - HEAD & NECK SURGERY CLINIC NOTE CHIEF COMPLAINT: Chief Complaint Patient presents with New patient, to establish relationship HPI: Glenn Parada is a 80 year old male with PMH significant for Parkinson's who presents today, 05/28/2025, at the [facility] at the request of Referring Provider: Anusha Ward for my opinion and further evaluation [...] Administered Date(s) Administered COVID-19 Vaccine (12+ yrs, Brazzlebox) mRNA, spike protein, LNP, pres. free, 30 mcg/0.3mL dose, lola-sucrose (NIW=654) 06/22/2024 Influenza, injectable, high dose seasonal, trivalent, preservative free (CIF=074) 06/22/2024 Tdap (LAZ=816) 12/26/2024 PHYSICAL EXAM: Vital Signs: BP 106/66 [...] gag reflex, inadequate mirror visualization Surgeon: Reta Sanchez MD was present for the entirety of [...] will likely refer to Dr. Guerin in [place] for definitive treatment and we will plan to obtain PET scan once definitive diagnosis obtained Thank you so much for allowing me to participate in the care of this patient. Please feel free to contact me if you have any questions or concerns. Reta Sanchez MD [employer] Truck Driver Department of Otolaryngology - Head and Neck Surgery [facility], [facility] Pager: [phone] documented in this [id number] Discharge summary Author Mayra Clements [facility] Note Date/Time May 25, 2025 3: 19pm [facility] Physical Therapy [facility] [address] [place] [address] / REHABILITATION SERVICES DISCHARGE SUMMARY MR#: [id number] Acct: [id number] Name: GLENN PARADA Rep #: [id number] : 1945 80 From: Mayra Clements MP T Referring Dr.: MARNI BOWSER Status: REG RCR Insurance: [facility] SELF PAY INSURANCE Discharge Summary D/C summary: It has been my pleasure to treat GLENN PARADA referred by MARNI BOWSER, with the diagnosis of PD for a [...] please feel free to call me at [phone]. Thank you for the referral of thispatient. Sincerely, AMRITA Thompson Balance/Gait/Functional tests Balance/Special Test Scores Functional Gait Assessment Score: 21 % Disability: 30.0000 Lower Extremity Functional Score: 57 Improvement % Improvement: 25 <Electronically signed by Mayra Clements MPT> 05/25/25 1321 CC: Dr. Eloina Chi MD; MARNI BOWSER ~ Signed [facility] Work Phone: 1(498) 223-217808-12-2025 Discharge summary [facility] [place] [address] / REHABILITATION SERVICES DISCHARGE SUMMARY MR#: [id number] Acct: [id number] Name: GLENN PARADA Rep #: [id number] : 1945 80 From: Mayra Clements MP T Referring DrJaiden: MARNI BOWSER Status: REG RCR Insurance: [facility] SEL[facility]URANCE Discharge Summary D/C summary: It has been my pleasure to treat GLENN PARADA referred by MARNI BOWSER, with the diagnosis of PD for a [...] please feel free to call me at [phone]. Thank you for the referral of thispatient. Sincerely, AMRITA Thompson Balance/Gait/Functional tests Balance/Special Test Scores Functional Gait Assessment Score: 21 % Disability: 30.0000 Lower Extremity Functional Score: 57 Improvement % Improvement: 25 05/25/25 1321 CC: Dr. Eloina Chi MD; MARNI BOWSER ~ Signed [facility]08-12-2025 Discharge summary Author Mayra Clements [facility] Note Date/Time May 25, 2025 3: 19pm [facility] Physical Therapy [facility] [address] [place] [address]. [address] [place] [address] / REHABILITATION SERVICES DISCHARGE SUMMARY MR#: [id number] Acct: [id number] Name: GLENN PARADA DEV Rep #: [id number] : 1945 80 From: Mayra Melton Referring Dr.: MARNI BOWSER Status: REG RCR Insurance: [facility] SELF PAY INSURANCE Discharge Summary D/C summary: It has been my pleasure to treat GLENN PARADA referred by MARNI BOWSER, with the diagnosis of PD for a [...] please feel free to call me at [phone]. Thank you for the referral of thispatient. Sincerely, AMRITA Thompson Balance/Gait/Functional tests Balance/Special Test Scores Functional Gait Assessment Score: 21 % Disability: 30.0000 Lower Extremity Functional Score: 57 Improvement % Improvement: 25 <Electronically signed by Mayra Clements MPT> 05/25/25 1321 CC: Dr. Eloina Chi MD; MARNI BOWSER ~ Signed [facility] Work Phone: 1(973) 357-427807-31-2025 NoteHey another [place] referral. Patient is all scheduled.[facility] [id number] Radiology Diagnostic study note [facility] Imaging Services [address] [place], [place] [address] Soft Tissue Neck WITH Contrast MR#: [id number] Acct: [id number] Name: GLENN PARADA DEV Rep #: [id number] : 1945 M 80 From: Vero Arroyo MD PCP: Dr. Eloina Chi MD Status: REG CL I Study:Soft Tissue Neck WITH Contrast Date of Exam: 05/03/25 Exam# [id number] Ordering Dr: Anusha Ward MD PROCEDURE: SOFT TISSUE NECK WITH [...] exhibit central ulceration. The dimensions at a licensing representative axial level are about 2.4 x [...] lymphadenopathy on the left side Reading [facility] CC: Dr. Eloina Chi MD; Dr. Anusha Ward MD ~ Farm Management Adviser: Signed [facility]07-21-2025 Telephone encounter Note* Telephone Encounter - Esther Linder MA - 05/03/2025 7:54 AM EDT Faxed rehab evaluation to [facility] and confirmation received [facility]07-21-2025 Miscellaneous Notes* Telephone Encounter - Esther Linder MA - 05/03/2025 7:54 AM EDT Faxed rehab evaluation to [facility] and confirmation received documented in this encounterThe [facility]06-26-2025 Instructions* Patient Instructions* Alisson Sarabia APRN.HORSER UP - 04/08/2025 3:43 PM EDT It was [...] ONLY IF THIS IS OK with your customer service rep/primary care provider. Otherwise, do not do this. [...] or you can send a message through GLG. You can also now schedule and select appointments through GLG. Alisson Sarabia APRN.HORSER UP From the Parkinson's Foundation: [email or web address].[email or web address] What Can [...] can make phlegm worse. documented in this encounterThe [facility]06-26-2025 History of Present illness Narrative* Alisson Sarabia APRN.CNP - 04/08/2025 3:00 PM EDT [facility] - FOLLOW UP EVALUATION Primary Movement Disorders Neurologist: Joseph Saarbia MD Primary Movement Disorders FER: Alisson Sarabia CNP Recording using ambient Qui.lt software for draft documentation of the visit was discussed with the patient/authorized licensing representative; all questions welcomed and answered. Patient/authorized licensing representative agreed to proceed Eloina Chi MD [address] [facility] [address] Dear Eloina Chi MD: I had the [...] Neurology Office Visit from 09/21/2024 in [facility] T Score 42.3 50.8 [...] dosing schedule to 0530, 1030, 1530, and 2029 to provide more even coverage throughout the [...] ONLY IF THIS IS OK with your customer service rep/primary care provider. Otherwise, do not do this. [...] or around: 10/08/25 Level of service : 30490 ( 30-39 min). Time spent 32 min on the day of service, which included preparing to see the patient, esqc-rp-aoql patient care, completing clinical documentation, obtaining and/or reviewing separately obtained history, performing a medically appropriate examination, and counseling and educating the patient/family/caregiver. Alisson Sarabia APRN.HORSER UP * Ariadna Carr MA - 04/07/2025 11:41 [...] population and warrants attention documented in this encounterThe [facility]06-26-2025 NoteHNO ID: [id number] Author: ALISSNO SARABIA APRN.GARY Service: ? Author Type: Nurse Practitioner Type: Progress Notes Filed: 04/12/2025 20:47 Note Text: [facility] - FOLLOW UP EVALUATION Primary Movement Disorders Neurologist: Joseph Sarabia MD Primary Movement Disorders FER: Alisson Sarabia CNP Recording using PictureMe Universe software for draft documentation of the visit was discussed with the patient/authorized licensing representative; all questions welcomed and answered. Patient/authorized licensing representative agreed to proceed Eloina Chi MD [address] [facility] [address] Dear Eloina Chi MD: I had the [...] the following table s (more content not included)...[facility]06-25-2025 NoteHNO ID: [id number] Author: ARIADNA CARR MA Service: ? Author Type: Turkey Picker Type: Progress Notes Filed: 04/12/2025 20:47 Note [...] 1 SD worse than population and warrants attentionW[facility]05-13-2025 Miscellaneous Notes* Telephone Encounter - Ana Laura Schwab - 02/23/2025 9:58 AM EDT Request from patient requesting refill. Please E-Scribe to [facility]. Last OV: 09/21/24 with BLW Future OV: 04/08/25 with Alisson Requested Prescriptions Pending Prescriptions Disp Refills propranolol (INDERAL) 20 mg tablet 60 tablet 11 Sig: Take 1 tablet by mouth every 12 hours. Ana Laura Lopez documented in this encounterThe [facility]05-13-2025 Telephone encounter Note * Telephone Encounter - Ana Laura Schwab - 02/23/2025 9:58 AM EDT Request from patient requesting refill. Please E-Scribe to [facility]. Last OV: 09/21/24 with BLW Future OV: 04/08/25 with Alisson Requested Prescriptions Pending Prescriptions Disp Refills propranolol (INDERAL) 20 mg tablet 60 tablet 11 Sig: Take 1 tablet by mouth every 12 hours. Ana Laura Lopez [facility]03-15-2025 Radiology Diagnostic study note [facility] Imaging Services [address] [place] [address] Hand Min 3 Views MR#: [id number] Acct: [id number] Name: GLENN PARADA DEV Rep #: [id number] : 1945 M 79 From: Rena King MD PCP: Dr. Eloina Chi MD Status: [facility] Study:Hand Min 3 Views Date of Exam: Exam# [id number] Ordering Dr: Carlos Dennis MD PROCEDURE: HAND [...] Dennis MD; Dr. Eloina Chi MD ~ Farm Management Adviser: Signed [facility]03-15-2025 Radiology Diagnostic study note [facility] Imaging Services [address] [place] [address] Spine Cervical without Contras MR#: [id number] Acct: [id number] Name: NINGGLENN DEV Rep #: [id number] : 1945 M 79 From: Zeb Alvarado MD PCP: Dr. Eloina Chi MD Status: REG ER Study:Spine Cervical without Contras Date of Exam: 12/26/24 Exam# [id number] Ordering Dr: Carlos Dennis MD PROCEDURE: SPINE [...] use of iterative reconstruction technique). Reading Location: [facility] CC: Dr. Carlos Dennis MD; Dr. Eloina Chi MD ~ Farm Management Adviser: Signed [facility]03-15-2025 Radiology Diagnostic study note [facility] Imaging Services [address] [place], [place] [id number] Brain/Head without Contrast MR#: [id number] Acct: [id number] Name: NINGGLENN DEV Rep #: [id number] : 1945 M 79 From: Zeb Alvarado MD PCP: Dr. Eloina Chi MD Status: REG ER Study:Brain/Head without Contrast Date of Exa m: 12/26/24 Exam# [id number] Ordering Dr: Carlos Dennis MD EXAM: BRAIN/HEAD [...] acute traumatic findings. Senescent changes. Reading Location: [facility] CC: Dr. Carlos Dennis MD; Dr. Eloina Chi MD ~ Farm Management Adviser: Signed [facility]12-22-2024 Evaluation note* Diagnosis Onset Date Resolution Status Admit Date Cat bite acute October 04, 2024 8:05am [facility] Work Phone: 1(789) 514-621612-09-2024 Instructions* Patient Instructions* Stephan Macario MD - 09/21/2024 5:05 PM EST Take an extra Sinemet 25/100 CR at bedtime. Decrease to propranolol to 10mg twice daily for one week then discontinue. Return to clinic in 6 months. documented in this encounterThe [facility]12-09-2024 NoteHNO ID: [id number] Author: JOSEPH SARABIA MD Service: ? Author Type: Physician Type: Progress Notes Filed: 10/04/2024 19:14 Note Text: [facility] - FOLLOW UP EVALUATION MD [address] [facility] [address] [facility] [address] Dear Eloina Chi MD: I had the [...] Row Office Visit from 09/21/2024 in [facility] Visit from 06/25/2024 in [facility] [...] (2 mg) by mouth (more content not included)...[facility]12-09-2024 History of Present illness Narrative* Joseph Sarabia MD - 09/21/2024 4:00 PM EST [facility] - FOLLOW UP EVALUATION MD Ey[address] [facility] [address] [facility] [address] Dear Eloina Chi MD: I had the [...] Row Office Visit from 09/21/2024 in [facility] Visit from 06/25/2024 in [facility] [...] pathological reflexes: Crossed adductor present. Coordination Right: Lbotky-ma-llxz normal. Vbkb-ot-ulmh normal.Left: Tomnhg-ca-ctpq normal. Hdsa-to-mrrc normal. Gait Casual gait is normal including [...] < 50 would be worse than predicted, ciwfby09 would be near predicted and > 50 [...] plan. Joseph Sarabia MD documented in this encounterThe [facility]10-29-2024 Telephone encounter Note * Telephone Encounter - Jael Ch RN - 08/11/2024 11:29 AM EDT Spoke with nurse Naomi Davis, she discussed with Dr. Chi and received approval to wean down or discontinue propranolol. [facility]10-29-2024 Miscellaneous Notes* Telephone Encounter - Jael Ch [...] left for return call. documented in this encounterThe [facility] Hospital [facility]10-28-2024 Telephone encounter Note * Telephone Encounter - [...] No answer. Message left for return call. [facility]10-17-2024 Instructions* Patient Instructions* Salma Chamberlain MD - 07/30/2024 2:32 PM EDT - Stop Motegrity. - No Linzess. - Stop Senna - Miralax twice per day; - If you have diarrhea, then decrease Miralax to once per day. - If you still have constipation, then increase Miralax to three times per day. - Use enema once every day. documented in this encounterThe [facility] Hospital [facility]woods10-17-2024 NoteHNO ID: [id number] Author: SALMA CHAMBERLAIN MD Service: ? Author Type: Physician Type: Progress Notes Filed: 07/30/2024 16:19 Note Text: CHIEF COMPLAINT: Patient presents with: Second Opinion: Chronic constipation, previous patient Dr. Jeffery Torresond is a 79 year old male who [...] Salma Chamberlain MD DATE: 07/30/24 TIME: 1:56 [facility]10-17-2024 History of Present illness Narrative* Salma Chamberlain [...] 07/30/24 TIME: 1:56 PM documented in this encounterThe [facility]09-12-2024 Instructions* Patient Instructions* Alisson Sarabia APRN.CNP - 06/25/2024 4:05 PM EDT documented in this encounterThe [facility] Hospital [facility]09-12-2024 NoteHNO ID: [id number] Author: ALISSON SARABIA APRN.GARY Service: ? Author Type: Nurse Practitioner Type: Progress Notes Filed: 06/26/2024 06:26 Note Text: [facility] - FOLLOW UP EVALUATION Eloina Chi MD [address] [place] [address] Dear Eloina Chi MD: I had the [...] well as a recipe from the [facility]. Cognition: We will check a screening in the future At your convenience, please provide us with a copy of your advanced directives (living will and durable power of deputy county attorney for healthcare): By Email: Send your document(s) to as an attachment in either PDF, TIFF, or JPEG format. By Mail: [facility] Information Management, [employer]7 Advance Directive Processing [address] [place], [place] [address] By In person at any [facility] location Please note: You can use the address or fax number regardless of which [facility] you utilize, and we will make [...] problems: 0 (none) Consti (more content not included)...[facility]09-12-2024 History of Present illness Narrative* Alisson Sarabia APRN.HORSER UP - 06/25/2024 4:00 PM EDT [facility] - FOLLOW UP EVALUATION MD Eyal [place] [facility] [address] [facility] [address] Dear Eloina Chi MD: I had the [...] well as a recipe from the [facility]. Cognition: We will check a screening in the future At your convenience, please provide us with a copy of your advanced directives (living will and durable power of deputy county attorney for healthcare): By Email: Send your document(s) to [email or web address] as an attachment in either PDF, TIFF, or JPEG format. By Mail: [facility] Information Management, [employer] Advance Directive Processing [address] [place], [place] [address] By In person at any [facility] location Please note: You can use the address or fax number regardless of which [facility] you utilize, and we will make [...] to me they had tickets for the [employer] at their [facility] and needed to leave so next time [...] 5 mg 1 Level of service : 89704 ( 30-39 min). Time spent 34 min on the day of service, which included preparing to see the patient, qoib-za-tgbf patient care, completing clinical documentation, obtaining and/or reviewing separately obtained history, performing a medically appropriate examination, counseling and educating the patient/family/caregiver, and ordering medications, tests, or procedures. Alisson Sarabia APRN.GARY documented in this encounterThe [facility] Hospital [facility]06-04-2024 Instructions* Patient Instructions* Alisson Sarabia APRN.CNP - [...] well as a recipe from the [facility]. Cognition: We will check a screening in the future At your convenience, please provide us with a copy of your advanced directives (living will and durable power of deputy county attorney for healthcare): By Email: Send your document(s) to as an attachment in either PDF, TIFF, or JPEG format. By Mail: [facility] Information Management, [employer]7 Advance Directive Processing [address] [place], [place] [address] By In person at any [facility] location Please note: You can use the address or fax number regardless of which [facility] you utilize, and we will make sure it is filed appropriately. Movement Disorders Medication Schedule: Medications 6AM 1130AM 6PM 9PM Sinemet 25/100 CR 1 1 1 Propranolol 20 mg 1 1 Melatonin 5 mg 1 Return at or around: 06/17/24 If there are any concerns before your next visit, please call or you can send a message through GLG. You can also now schedule and select appointments through [employer]. Alisson Sarabia APRN.HORSER UP Constipation and Other Gastrointestinal Problems in Parkinson's [...] future constipation. Treatments fall into two categories: zvjy-obw-grrkytq and prescription therapies. Remember: consult with your [...] day and your own convenience and preference. Brwo[employer]ovo[employer]Qdotsip Products Ssjv-iyo-bxqvxzl treatments for constipation can be purchased at [...] It also comes as a capsule ([employer] Smooth Move ). ving with PD Constipation [...] easier to pass. These can be used terminal block assembler but should not be used in combination [...] after other remedies have failed. Among the amyj-ulc-gflwcxy laxatives, they are most likely to cause [...] psyllium (Perdiem ). Common Side Effects of Hdsz-fsz-Mychwpq Products for Constipation Emollient (Stool Softeners) Skin [...] any side effects listed. Prescription Products When uayk-eke-ajlbtwf remedies fail, your healthcare provider may recommend [...] Stimulant X Bisacodyl (Dulcolax ) Stimulant X [place] Oil Stimulant X Cellulose (Unifiber ) Bulk [...] Docusate (Senokot ) Stimulant X Adapted from: [facility] Website, accessed February 07, 2016, www.[facility] lake placidResource Interactive/health/druginformation/ DI284195 Special Precautions For your safety, consult your [...] Contributing authors: Salvador Tafoya, Ph.D., R.N., and César Tavarez, M.S.N., C.R.N.P. Constipation Tracker Day/Date Time Food(s) Eaten Activities Emotional Status Stool Description Feel free to photocopy this page and use it throughout the year to track your symptoms and share with your doctor. This is a patient education material provided by the Parkinson s Foundation. For more information and resources see https://www.parkinson.org/. [facility] is a Center of Excellence for the Parkinson s Foundation. documented in this encounterThe [facility]06-04-2024 History of Present illness Narrative* Alisson Sarabia APRN.CNP - 03/17/2024 8:00 AM EDT CNR-MOVEMENT DISORDERS [...] significant (0-4) depression. Anxiety: PETRA-7 Total Score: 1 usually representing no significant [...] well as a recipe from the [facility] that often works as well in [...] well as a recipe from the [facility]. Cognition: We will check a screening in the future At your convenience, please provide us with a copy of your advanced directives (living will and durable power of deputy county attorney for healthcare): By Email: Send your document(s) to as an attachment in either PDF, TIFF, or JPEG format. By Mail: [facility] Information Management, Ab7 Advance Directive Processing [address] [place], [place] [address] By In person at any [facility] location Please note: You can use the address or fax number regardless of which [facility] you utilize, and we will make sure it is filed appropriately. Updated Movement Disorders Medication Schedule: Medications 6AM 1130AM 6PM 9PM Sinemet 25/100 CR 1 1 1 Propranolol 20 mg 1 1 Melatonin 5 mg 1 Return at or around: 06/17/24 Level of service : 97651 (40-54 min). Time spent 41 min on the day of service, which included preparing to see the patient, igpq-va-huop patient care, completing clinical documentation, obtaining and/or reviewing separately obtained history, performing a medically appropriate examination, counseling and educating the patient/family/caregiver, and ordering medications, tests, or procedures. Alisson Sarabia APRN.HORSER UP documented in this encounterThe [facility] Instructions* Patient Instructions* Joseph Sarabia MD - [...] or you can send a message through GLG. You can also now schedule and select appointments through GLG. Joseph Sarabia MD documented in this encounterThe [facility]24 History of Present illness Narrative* Joseph Sarabia MD - 12/19/2023 2:15 PM EST [facility] - NEW PATIENT EVALUATION I had the pleasure of evaluating Mr. Parada in our clinic today. He is a 78 year old right-handed male who presents for evaluation of Parkinson's disease since 2021. Subjective HISTORY OF PRESENT ILLNESS: Initial HPI He just moved from [place], [place]. He started with shuffling gait and tremor in left hand and he was stated on on propranol which helped some with the tremor. He was better when the carbidopa/levodopa. He did some LSVT PT in [place] which has helped. He has not had [...] Last PT Date: Last OT Date: Last Date: Exercises Regularly: Yes ALLERGIES No Known [...] Right Plantar: downgoing Left Plantar: downgoing Coordination Azmjjd-ub-wdaz, rapid alternating movements and kpwl-cr-xyfy normal bilaterally without dysmetria. Gait Casual gait: [...] Sincerely, Joseph Sarabia MD [facility] Diagnosis Onset Date Resolution Status Contusion of back wall of thorax [facility] Work Phone: Evaluation note* Diagnosis Parkinson's disease without dyskinesia, with fluctuating manifestations (HCC)- Primary documented in [facility]* Diagnosis Parkinson's disease without dyskinesia or fluctuating manifestations (HCC)- Primary Orthostatic hypotension Constipation, unspecified constipation type [facility] Diagnosis Orthostatic hypotension- Primary Parkinson's disease without dyskinesia, with fluctuating manifestations (HCC) [facility]* Diagnosis Constipation, unspecified constipation type- Primary Intestinal malabsorption, unspecified type [facility]* Diagnosis Parkinson's disease without dyskinesia or fluctuating manifestations (HCC)- Primary Cognitive and behavioral changes Other signs and symptoms involving cognition documented in this encounter [facility] noteNo assessment information availableWTogus [facility] Work Phone: Evaluation note* Diagnosis Parkinson's disease without dyskinesia, with fluctuating manifestations (HCC)- Primary Orthostatic hypotension Sialorrhea Disturbance of salivary secretion [facility] this encounter [facility]* Diagnosis Tonsillar mass Swelling, mass, or lump in head and neck [facility] Diagnosis Tonsillar mass- Primary Swelling, mass, [...] oropharynx, unspecified site [facility]* Diagnosis Onset Date Resolution Status Admit Date BPH (benign prostatic hyperplasia) acute June 17, 2 025 1:25pm Cat bite acute June 17, 2025 1:25pm Constipation acute June 1:25pm Contusion of back wall of thorax acute June 17, 025 1:25pm GERD (gastroesophageal reflu x disease) acute June 17, 025 1:25pm Hypothyroidism acute June 17, 2025 1:25pm Parkinson's disease acute 2024 1:25pm 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 Return with new or worsening symptoms.[facility] Work Phone: Hospital Discharge instructionsAmbulatory Orders* General Surgery Location: None Selected * Nutrition Referral Location: None Selected * Oncology Location: None Selected * Speech Therapy Referral Location: None Selected [facility] Work Phone: Reason for referral (narrative)No reason for referral information availableWTogus [facility] Work Phone: Reason for visit Narrative* Diagnostic X-Ray (Routine) - Closed Specialty Diagnoses / Procedures Referred By Americo t Referred To Contact Radiology Diagnoses Tonsillar mass Procedures CT NEURO IMAGE IMPORT(JOHNATHAN) DOWNLOAD POWERSHARE IMAGES TO Reta Garces MD [address] [place] [address] Phone: tel: fax: [facility] [address] [place] [address] Phone: tel: Referral ID Status Reason Start Date Expiration Date Visits Re quested Visits Authorized [id number] Closed 05/14/2025 05/14/2026 [address] [facility] Chief Complaint and Reason for Visit [...] Amb Documentation June 10, 2025 10 :08am Chief Complaint Admit Date ACUTE PHARYNGITIS March 01, 2025 3:51p m Localized swelling, mass and lump, head May 03, 2025 12:38pm PARKINSONS. RX HERE May 31, 2025 3: 30pm Amb Documentation June 10, 2025 10 :08am HEAD NECK June 15, 2025 6:41am SQUAMOUS CELL OROPHARYNX June 17, 2025 1:25pm Reason for Visit Admit Date BPH (benign prostatic hyperplasia) Septe mber 2024 1:25pm Cat bite June 17, 2025 1:25pm Constipation June 17, 2025 1:25pm Contusion of back wall of thorax Septemb er 2024 1:25pm GERD (gastroesophageal reflux disease) S eptember 2024 1:25pm Hypothyroidism June 17, 2025 1:25pm Parkinson's disease June 17, 2025 1:25pm 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 June 17, 2025 1:25pm Squamous cell carcinoma of oropharynx Se ptember 2024 1:25pm Chief Complaint Admit Date ACUTE PHARYNGITIS March 01, 2025 3:51p m Localized swelling, mass and lump, head May 03, 2025 12:38pm PARKINSONS. RX HERE May 31, 2025 3: 30pm Amb Documentation June 10, 2025 10 :08am HEAD NECK June 15, 2025 6:41am SQUAMOUS CELL OROPHARYNX June 17, 2025 1:25pm PORT AND PEG June 21, 2025 1:21pm Reason for Visit Admit Date 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 June 17, 2025 1:25pm Squamous cell carcinoma of oropharynx Se ptember 2024 1:25pm Encounter for insertion of venous access port June 21, 2025 1:21pm Encounter for PEG (percutaneous endoscop ic gastrostomy) June 21, 2025 1:21pm Squamous cell carcinoma of oropharynx Se ptember 2024 1:21pm Chief Complaint Admit Date ACUTE PHARYNGITIS March 01, 2025 3:51p m Localized swelling, mass and lump, head May 03, 2025 12:38pm PARKINSONS. RX HERE May 31, 2025 3: 30pm Amb Documentation June 10, 2025 10 :08am HEAD NECK June 15, 2025 6:41am SQUAMOUS CELL OROPHARYNX June 17, 2025 1:25pm PORT AND PEG June 21, 2025 1:21pm NEW-HEAD&NECK June 22, 2025 8:18am Reason for Visit Admit Date 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 June 17, 2025 1:25pm Squamous cell carcinoma of oropharynx Se ptember 2024 1:25pm Encounter for insertion of venous access port June 21, 2025 1:21pm Encounter for PEG (percutaneous endoscop ic gastrostomy) June 21, 2025 1:21pm Squamous cell carcinoma of oropharynx Se ptember 2024 1:21pm 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 June 22, 2025 8:18am Squamous cell carcinoma of oropharynx Se ptember 2024 8:18am Chief Complaint Admit Date ACUTE PHARYNGITIS March 01, 2025 3:51p m Localized swelling, mass and lump, head May 03, 2025 12:38pm PARKINSONS. RX HERE May 31, 2025 3: 30pm Amb Documentation June 10, 2025 10 :08am HEAD NECK June 15, 2025 6:41am SQUAMOUS CELL OROPHARYNX June 17, 2025 1:25pm PORT AND PEG June 21, 2025 1:21pm NEW-HEAD&NECK June 22, 2025 8:18am Rad Tx June 22, 2025 12:47pm Reason for Visit Admit Date 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 June 17, 2025 1:25pm Squamous cell carcinoma of oropharynx Se ptember 2024 1:25pm Encounter for insertion of venous access port June 21, 2025 1:21pm Encounter for PEG (percutaneous endoscop ic gastrostomy) June 21, 2025 1:21pm Squamous cell carcinoma of oropharynx Se ptember 2024 1:21pm Nodule of chest wall June 22, 2025 8:18am 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 June 22, 2025 8:18am Squamous cell carcinoma of oropharynx Se ptember 2024 8:18am Chief Complaint Admit Date ACUTE PHARYNGITIS March 01, 2025 3:51p m Localized swelling, mass and lump, head May 03, 2025 12:38pm PARKINSONS. RX HERE May 31, 2025 3: 30pm Amb Documentation June 10, 2025 10 :08am HEAD NECK June 15, 2025 6:41am SQUAMOUS CELL OROPHARYNX June 17, 2025 1:25pm PORT AND PEG June 21, 2025 1:21pm NEW-HEAD&NECK June 22, 2025 8:18am CHEMO ED LABS(DO NOT WAIT FOR) June 28, 2025 2:20pm Rad Tx June 28, 2025 2:30pm Reason for Visit Admit Date 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 June 17, 2025 1:25pm Squamous cell carcinoma of oropharynx Se ptember 2024 1:25pm Encounter for insertion of venous access port June 21, 2025 1:21pm Encounter for PEG (percutaneous endoscop ic gastrostomy) June 21, 2025 1:21pm Squamous cell carcinoma of oropharynx Se ptember 2024 1:21pm Nodule of chest wall June 22, 2025 8:18am 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 June 22, 2025 8:18am Squamous cell carcinoma of oropharynx Se ptember 2024 8:18am Encounter for education June 28, 2025 2:20pm Nodule of chest wall June 28 2:20pm 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 June 28, 2025 2:20pm Squamous cell carcinoma of oropharynx Se ptember 2024 2:20pm Reason for Referral Specialty Diagnoses / Procedures Referred By Americo melton Referred To Contact [facility] Diagnoses Parkinson's disease without dyskinesia, with fluctuating manifestations (HCC) Procedures CONSULT TO PHYSICAL THERAPY PHYSICAL THERAPY EVALUATION HIGH COMPLEX 45 MINS Joseph Sarabia MD [address] [place] [id number] [facility] [address] [address] Referral ID Status Reason Start Date Expiration Date Visits Requested Visits Authorized [id number] Pending Review Auto-Generat ed Referral 12/19/2023 12/18/2024 1 1 Specialty Diagnoses / Procedures Referred By Contac t Referred To Contact Diagnoses Parkinson's disease without dyskinesia, with fluctuating manifestations (HCC) Procedures PROVIDER ORDERED FOLLOW UP OFFICE/OUTPATIENT NEW HIGH MDM 60 MINUTES Joseph Sarabia MD [address] [id number] Referral ID Status Reason Start Date Expiration Date Visits Requested Visits Authorized [id number] Authorized PCP Requested Referral 12/19/2023 03/18/2024 1 1 Specialty Diagnoses / Procedures Referred By Contac t Referred To Contact Diagnoses Parkinson's disease without dyskinesia or fluctuating manifestations (HCC) Procedures PROVIDER ORDERED FOLLOW UP OFFICE/OUTPATIENT NEW HIGH MDM 60 MINUTES Alisson Sarabia APRN.CNP [address] [place] [id number] Referral ID Status Reason Start Date Expiration Date Visits Requested Visits Authorized [id number] Authorized PCP Requested Referral 06/17/2024 03/17/2025 1 1 Specialty Diagnoses / Procedures Referred By Contac t Referred To Contact Diagnoses Parkinson's disease without dyskinesia or fluctuating manifestations (HCC) Procedures PROVIDER ORDERED FOLLOW UP OFFICE/OUTPATIENT NEW HIGH [place] 60 [place] [address] [place] [id number] Referral ID Status Reason Start Date Expiration Date Visits Requested Visits Authorized [id number] Authorized PCP Requested Referral 03/22/2025 09/21/2025 1 1 Advance Directives Advance Directive Response Recorded Date/ Time Living Will No December 26, 2024 5:19pm Power of Software Recruiter Yes December 26 5:19pm Name of Medical Power of Software Recruiter Janel Parada December 26, 2024 5:19pm Advance Directive Response Recorded Date/ Time Living Will No December 26, 2024 5:19pm Do you have a Healthcare Power of Software Recruiter? Yes December 26, 2024 5:19pm Name of Medical Power of Software Recruiter Janel Parada December 26, 2024 5:19pm Summary Purpose Family History Relationship Condition Age at Onset Recorded Date/T narendra brother Malignant neoplasm Unknown mother Leukemia Unknown sister Malignant neoplasm of breast Unknown Additional Source Comments Care Teams (unrecognized sec tion and content) Team Status: Active Member Role Status Slime Chi MD Primary Care Provider Active Team Status: Active Member Role Status Slime Chi MD Primary [...] December 28, 2024 End: December 28, 2024 DIETER Oreilly Attending Provider Active Star t: December 28, 2024 End: December 28, 2024 DIETER Oreilly Referring Provider Active Star t: December 28, [...] 2025 Team Status: Inactive Member Role Status Dates Eloina Chi MD Primary Care Provider, Referring Prov ider Active Steven GARCIAS, PA Attending Provider Active Team Status: Inactive Member Role Status Dates Eloina Chi MD Primary Care Provider Active Dr. Kiran Sarkar MD Attending Provider Active Team Status: Inactive Member Role Status Dates Eloina Chi MD Primary Care Provider, Attending Prov ider Active Sustainability Purchasing Agent Relationship Specialty Start Date End Date Eloina Chi MD [address] [facility] [address] [place] [address] PCP - General Internal Medicine 05/15/24 Sustainability Purchasing Agent Relationship Specialty Start Date End Date Eloina Chi MD [address] [facility] [address] [place] [address] PCP - General Internal Medicine 05/15/24 Sustainability Purchasing Agent Relationship Specialty Start Date End Date Eloina Chi MD [address] [facility] [address] [place] [address] PCP - General Internal Medicine 05/15/24 Sustainability Purchasing Agent Relationship Specialty Start Date End Date Eloina Chi MD [address] [facility] [address] [place] [address] PCP - General Internal Medicine 05/15/24 Sustainability Purchasing Agent Relationship Specialty Start Date End Date Eloina Chi MD [address] [facility] [address] [place] [address] PCP - General Internal Medicine 05/15/24 Sustainability Purchasing Agent Relationship Specialty Start Date End Date Eloina Chi MD [address] [facility] [address] [place], [place] [phone] PCP - General Internal Medicine 05/15/24 Team Status: Inactive Member Role Status Dates Eloina Chi MD Primary Care Provider Active St art: October 04, 2024 End: October 04, 2024 Eloina Chi MD Referring Provider Active Start : October 04, 2024 End: October 04, 2024 Ranulfo Gaspar GRILL CHEF, GRILL CHEF-C Attending Provider Active S tart: October 04, 2024 End: October 04, 2024 Team Status: Inactive Member Role Status Dates Eloina Chi MD Primary Care Provider Active St art: December 26, 2024 End: December 26, 2024 Carlos Dennis MD Emergency Provider Active Star t: December 26, 2024 End: December 26, 2024 Sustainability Purchasing Agent Relationship Specialty Start Date End Date Eloina Chi MD [address] [facility] [address] [place] [address] PCP - General Internal Medicine 05/15/24 Sustainability Purchasing Agent Relationship Specialty Start Date End Date Eloina Chi MD [address] [facility] [address] [place] [address] PCP - General Internal Medicine 05/15/24 Sustainability Purchasing Agent Relationship Specialty Start Date End Date Eloina Chi MD [address] [facility] [address] [place], [place] [id number] PCP - General Internal Medicine 05/15/24 Team Status: Active Member Role/Relationship Status Slime Chi MD Primary Care Provider Active Team Status: Inactive Member Role/Relationship Status Slime [...] 03, 2025 End: May 03, 2025 Dr. Anusha Ward MD Attending Provider Activ e Start: May 03, 2025 End: May 03, 2025 Dr. Anusha Ward MD Referring Provider Activ e Start: May 03, 2025 End: May 03, 2025 Team Status: Active Member Role/Relationship Status Slime Chi MD Primary Care Provider Active St art: May 06, 2025 MARNI BOWSER Attending Provider Active St art: May 06, 2025 MARNI BOWSER Referring Provider Active St art: May 06, 2025 Team Status: Inactive Member Role/Relationship Status Slime Chi MD Primary Care Provider Active St art: May 25, 2025 End: May 25, 2025 MARNI BOWSER Attending Provider Active St art: May 25, 2025 End: May 25, 2025 MARNI BOWSER Referring Provider Active St art: May 25, 2025 End: May 25, 2025 Team Status: Active Member Role/Relationship Status Slime Chi MD Primary Care Provider Active St art: May 25, 2025 MARNI BOWSER Attending Provider Active St art: May 25, 2025 MARNI BOWSER Referring Provider Active St art: May 25, [...] 03, 2025 End: May 03, 2025 Dr. Anusha Ward MD Attending Provider Activ e Start: May 03, 2025 End: May 03, 2025 Dr. Anusha Ward MD Referring Provider Activ e Start: May 03, 2025 End: May 03, 2025 Team Status: Inactive Member Role/Relationship Status Slime Chi MD Primary Care Provider Active St art: May 31, 2025 End: May 31, 2025 MARNI BOWSER Attending Provider Active St art: May 31, 2025 End: May 31, 2025 MARNI BOWSER Referring Provider Active St art: May 31, 2025 End: May 31, 2025 Team Status: Active Member Role/Relationship Status Slime Chi MD Primary Care Provider Active St art: June 10, 2025 Cherelle Maher LPN Attending Provider Active S tart: June 10, 2025 Team Status: Inactive Member Role/Relationship Status [...] 03, 2025 End: May 03, 2025 Dr. Anusha Ward MD Attending Provider Activ e Start: May 03, 2025 End: May 03, 2025 Dr. Anusha Ward MD Referring Provider Activ e Start: May 03, 2025 End: May 03, 2025 Team Status: Inactive Member Role/Relationship Status Slime Chi MD Primary Care Provider Active St art: May 31, 2025 End: May 31, 2025 MARNI BOWSER Attending Provider Active St art: May 31, 2025 End: May 31, 2025 MARNI BOWSER Referring Provider Active St art: May 31, 2025 End: May 31, 2025 Team Status: Active Member Role/Relationship Status Dates Eloina Chi MD Primary Care Provider Active St art: June 10, 2025 Cherelle Maher LPN Attending Provider Active S tart: June 10, 2025 Team Status: Active Member Role/Relationship Status Dates Eloina Chi MD Primary Care Provider Active St art: June 15, 2025 Dr. Reta Sanchez MD Attending Provider Active St art: June 15, 2025 Dr. eRta Sanchez MD Referring Provider Active St art: June 15, 2025 Team Status: Inactive Member Role/Relationship Status Dates Dr. En Guerin DO Attending Provider Active Start: June 17, 2025 End: June 17, 2025 Dr. Reta Sanchez MD Referring Provider Active St art: June 17, 2025 End: June 17, 2025 Team Status: Active Member Role/Relationship Status Dates Eloina Chi MD Primary Care Provider Active St art: June 15, 2025 Dr. Reta Sanchez MD Attending Provider Active St art: June 15, 2025 Dr. Reta Sanchez MD Referring Provider Active St art: June 15, 2025 Team Status: Inactive Member Role/Relationship Status Dates Dr. En Guerin DO Attending Provider Active Start: June 17, 2025 End: June 17, 2025 Dr. Reta Sanchez MD Referring Provider Active St art: June 17, 2025 End: June 17, 2025 Team Status: Inactive Member Role/Relationship Status Slime Chi MD Primary Care Provider Active St art: June 21, 2025 End: June 21, 2025 Eloina Chi MD Referring Provider Active Start : June 21, 2025 End: June 21, 2025 Dr. Kalyn Ng MD Attending Provider Active Start: June 21, 2025 End: June 21, 2025 Team Status: Inactive Member Role/Relationship Status Dates Eloina Chi MD Primary Care Provider Active St art: June 22, 2025 End: June 22, 2025 Eloina Chi MD Referring Provider Active Start : June 22, 2025 End: June 22, 2025 Dr. Simone Collins MD Attending Provider Active S tart: June 22, 2025 End: June 22, 2025 Team Status: Inactive Member Role/Relationship Status Slime Chi MD Primary Care Provider Active St art: June 15, 2025 End: June 15, 2025 Dr. Reta Sanchez MD Attending Provider Active St art: June 15, 2025 End: June 15, 2025 Dr. Reta Sanchez MD Referring Provider Active St art: June 15, 2025 End: June 15, 2025 Team Status: Active Member Role/Relationship Status Slime Chi MD Primary Care Provider Active St art: June 22, 2025 Dr. En Guerin DO Attending Provider Active Start: June 22, 2025 Dr. En Guerin DO Referring Provider Active Start: June 22, 2025 Team Status: Active Member Role/Relationship Status Slime Chi MD Primary Care Provider Active St art: June 22, 2025 Dr. En Guerin DO Attending Provider Active Start: June 22, 2025 Team Status: Active Member Role/Relationship Status Slime Chi MD Primary Care Provider Active St art: June 22, 2025 Dr. En Guerin DO Attending Provider Active Start: June 22, 2025 Team Status: Inactive Member Role/Relationship Status Slime Chi MD Primary Care Provider Active St art: June 28, 2025 End: June 28, 2025 Eloina Chi MD Referring Provider Active Start : June 28, 2025 End: June 28, 2025 Jayashree Anderson GRILL CHEF, GRILL CHEF-C Attending Provider Active Start: June 28, 2025 End: June 28, 2025 Team Status: Active Member Role/Relationship Status Slime Chi MD Primary Care Provider Active St art: June 28, 2025 Dr. En Guerin DO Attending Provider Active Start: June 28, 2025 Dr. En Guerin DO Referring Provider Active Start: June 28, 2025 Goals (unrecognized section and content) Goals [...] or prosecute any alcohol or drug abuse patient.[facility]In the event this information is protected by the Federal Confidentiality of Alcohol and Drug Abuse Patient Records regulations: The Federal rules restrict any use of the information to criminally investigate or prosecute any alcohol or drug abuse patient.[facility] the event this information is protected by the Federal Confidentiality of Alcohol and Drug Abuse Patient Records regulations: The Federal rules restrict any use of the information to criminally investigate or prosecute any alcohol or drug abuse patient.[facility]woodsIn the event this information is protected by the Federal Confidentiality of Alcohol and Drug Abuse Patient Records regulations: The Federal rules restrict any use of the information to criminally investigate or prosecute any alcohol or drug abuse patient.[facility]woodsIn the event this information is protected by the Federal Confidentiality of Alcohol and Drug Abuse Patient Records regulations: The Federal rules restrict any use of the information to criminally investigate or prosecute any alcohol or drug abuse patient.[facility] the event this information is protected by the Federal Confidentiality of Alcohol and Drug Abuse Patient Records regulations: The Federal rules restrict any use of the information to criminally investigate or prosecute any alcohol or drug abuse patient.[facility]woodsIn the event this information is protected by the Federal Confidentiality of Alcohol and Drug Abuse Patient Records regulations: The Federal rules restrict any use of the information to criminally investigate or prosecute any alcohol or drug abuse patient.[facility]woodsIn the event this information is protected by the Federal Confidentiality of Alcohol and Drug Abuse Patient Records regulations: The Federal rules restrict any use of the information to criminally investigate or prosecute any alcohol or drug abuse patient.[facility]woodsIn the event this information is protected by the Federal Confidentiality of Alcohol and Drug Abuse Patient Records regulations: The Federal rules restrict any use of the information to criminally investigate or prosecute any alcohol or drug abuse patient.[facility]woodsIn the event this information is protected by the Federal Confidentiality of Alcohol and Drug Abuse Patient Records regulations: The Federal rules restrict any use of the information to criminally investigate or prosecute any alcohol or drug abuse patient.[facility]woodsIn the event this information is protected by the Federal Confidentiality of Alcohol and Drug Abuse Patient Records regulations: The Federal rules restrict any use of the information to criminally investigate or prosecute any alcohol or drug abuse patient.[facility] the event this information is protected by the Federal Confidentiality of Alcohol and Drug Abuse Patient Records regulations: The Federal rules restrict any use of the information to criminally investigate or prosecute any alcohol or drug abuse patient.[facility] Reason for Visit (unrecogniz ed section and content) Reason Comments New Patient Parkinson's Disease Reason Comments Follow Up Parkinson's Disease Reason Comments Parkinsons Disease Specialty Diagnoses / Procedures Referred By Contac t Referred To Contact Diagnoses Parkinson's disease without dyskinesia, with fluctuating manifestations (HCC) Procedures PROVIDER ORDERED FOLLOW UP OFFICE/OUTPATIENT NEW HIGH MDM 60 MINUTES Joseph Sarabia MD [address] [id number] Referral ID Status Reason Start Date Expiration Date V isits Requested Visits Authorized [id number] Closed PCP Requested Referral 12/19/2023 03/18/2024 1 [...] PROVIDER ORDERED FOLLOW UP OFFICE/OUTPATIENT NEW HIGH [facility] 60 MINUTES Joseph Sarabia MD [address] [place] [address] Phone: tel: fax: Referral ID Status Reason Start Date Expiration Date V isits Requested Visits Authorized [id number] Closed PCP Requested Referral 03/22/2025 09/21/2025 1 1 Reason Comments Orders Reason Comments New patient, to establish relationship Reason Comments oropharyngeal SCCa Reason Comments Patient Update (unrecognized sect ion and content) No Status Records FoundNo Status Records FoundNo Status Records Found INFORMATION SOURCE (unrecogn ized section and content) DATE CREATED AUTHOR 05/04/2025 [facility] DATE CREATED AUTHOR AUTHOR'S ORGANIZ ATION 06/13/2025 [facility] DATE CREATED AUTHOR AUTHOR'S ORGANIZ ATION 06/30/2025 [facility] FOR RECORDS PERTAINING TO PATIENTS WHO ARE [...] BE BASED ON THE PRIMARY CLINICAL RECORDS. [facility] [employer] [facility]. provides no warranty or guarantee of the accuracy or completeness of information in this document.
--- NOTE | 2025-06-30 07:18 | PCM.HP.BLA ---
History and Physical Date of Admission: 06/30/25 Date of Service: 06/21/25 MR#: [id number] Acct: [id number] Name: CARLOS BARCLAY DEV Rep #: [id number] : 1945 Provider: Dr. Kalyn Ng MD Age/Sex: 80/M Location: [facility] Status: Signed Intake Vital Signs 06/17/2513:42 06/18/2510:30 06/21/2513:38 Height 5 ft 8 in 5 ft 8 in 5 ft 8 in Weight: 158 lb 4 oz 160 lb 2 oz BMI 24.0 24.3 BP 88/59 L 105/66 Blood Pressure Location Lt brachial Rt brachial Position Sitting Sitting Respiration 16 17 Pulse 82 98 Pulse Source Monitor Monitor Temp 96.6 F L Pulse Oximetry (%) 97 99 Oxygen Delivery Method room air room air Intake Visit Reasons: PORT AND PEG Chief Complaint: port and peg Is patient in pain?: No Allergies gluten Allergy (Verified 06/21/25 13:39) Abd cramps/diarrhea aripiprazole Adverse Reaction (Verified 06/21/25 13:39) unknown haloperidol Adverse Reaction (Verified 06/21/25 13:39) unknown metoclopramide Adverse Reaction (Verified 06/21/25 13:39) unknown olanzapine Adverse Reaction (Verified 06/21/25 13:39) unknown prochlorperazine Adverse Reaction (Verified 06/21/25 13:39) unknown promethazine Adverse Reaction (Verified 06/21/25 13:39) unknown Medications ?Medication ?Instructions ?Recorded ?Confirmed ?Type levothyroxine 50 mcg tablet 50 mcg PO QDAY 03/05/24 06/21/25 History omeprazole 40 mg capsule,delayed 40 mg PO QDAY 03/05/24 06/21/25 History release tamsulosin 0.4 mg capsule 0.4 mg PO BID 03/05/24 06/21/25 History prucalopride 2 mg tablet 2 mg PO DAILY 05/09/24 06/21/25 History (Motegrity) carbidopa ER 25 mg-levodopa 100 mg 1 tab PO .qid 06/10/25 06/21/25 History tablet,extended release peg 3350-electrolytes 236 ml PO PRN constipation 08/28/25 09/08/25 History gram-22.74 gram-6.74 gram-5.86 gram solution fludrocortisone 0.1 mg tablet 0.1 mg PO QDAY 06/17/25 06/21/25 History Have you fallen in the past year?: No PFSH Medical History (Updated 06/21/25 @ 13:37 by Joan Wolff) Celiac disease Surgical History History of hernia repair Family History Brother Cancer THROAT Mother Leukemia Sister Breast cancer Social History household members: significant other housing: house current occupational status: retired Smoking Status: Former smoker alcohol intake: never substance use type: does not use HPI HPI HPI: 80-year-old male presents for port and PEG placement due to squamous cell carcinoma of the oropharynx, 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 Patient's treatment may start 06/30 or 07/05. Patient has an upcoming appointment with oncology. ROS General General: Yes weight change (loss) and fatigue; No appetite, colon cancer or breast cancer HEENT HEENT: Yes eye surgery and swollen glands; No difficulty swallowing, eye injury or hoarseness Endo Endocrine: Yes thyroid disease; No diabetes mellitus, thyroid cancer, Hair loss, heat intolerance or cold intolerance Skin Skin: No rash or changing moles Musc Musculoskeletal: Yes back problems and arthritis; No rheumatoid arthritis, gout or joint pain Cardio Cardiovascular: No murmur, pacemaker, heart disease, atrial fibrillation, high blood pressure, heart attack, heart stent, palpitations, shortness of breath with exertion or chest pain Psych Psychiatric: No depression, anxiety or hearing voices Resp Respiratory: No shortness of breath, No sleep apnea, Yes cough, No COPD, No asthma, No emphysema and No wheezing Gastro Gastrointestinal: No abdominal pain, No nausea or vomiting, No diarrhea, Yes constipation, No blood in stool, Yes acid reflux, No hemorrhoids, No ulcers, No gallbladder problem and No black,tarry stools Yevgeniy Hematologic: No blood thinners, No blood disorders, No bleeding, No anemia and No blood clots Neuro Neurologic: No numbness and No tingling Exam Const General: cooperative, healthy appearing, comfortable and no acute distress [facility] Head: normocephalic and atraumatic Neck Neck: supple Chest Other: Palpation of bilateral upper chest normal Resp Effort & Inspection: normal respiratory effort Cardio Rate: regular rate GI Inspection: non-distended Palpation: soft and nontender Skin General: no rashes or lesions noted Neuro General: CN's II-XI intact bilaterally Extrem General: normal to inspection Psych Mental Status: mental status grossly normal Attitude: cooperative Assessment and Plan Assessment and Plan (1) Encounter for insertion of venous access port: Status: Acute (2) Encounter for PEG (percutaneous endoscopic gastrostomy): Status: Acute (3) 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 Right IJ possible left?currently plan to schedule 06/30/2025 AM Patient has been counseled as to the risks/benefits of the procedure. I have explained the risks of the surgery, including but not limited to: infection, bleeding, injury to any blood vessels/nerves, injury to lungs (such as pneumothorax or hemothorax and need for chest tube), not having any access, nonfunctioning of port due to thrombosis, infection of port, etc. the patient understands and agrees to proceed. I have answered all the patient's questions to the patient?s satisfaction and the patient has no further questions. I have discussed the above with the patient. I have offered the patient esophagogastroduodenoscopy with percutaneous gastrostomy tube placement I have explained the risks/benefits of the procedure and described the procedure. I have discussed the risks with the patient, including but not limited to: infection, bleeding, perforation of the GI tract requiring emergency surgery, inability to complete the procedure, injury to any internal organs, complications of anesthesia, etc. - the patient understands and agrees to proceed. I have answered all the patient's questions to the patient's satisfaction and the patient has no further questions. Kalyn Ng M.D. Pager: [phone] [facility] [address] [place] [address], [address] [place] [address] Office: [phone] Coding Level of Care Code Off vis,new,level 3 Diagnoses Encounter for insertion of venous access port Z45.2 Encounter for PEG (percutaneous endoscopic gastrostomy) Z43.1 Squamous cell carcinoma of oropharynx C10.9 Clinical Quality Measures Falls Risk Screening/Assistive Devices Have you fallen in the past year?: No 06/21/25 1406 <Electronically signed by Kalyn Ng MD> Date Kalyn Ng MD
[2025-06-30] MEDS: Lactated Ringers 1,000 ML 15 ML IV (07:39)
--- NOTE | 2025-06-30 07:57 | PCM.PRE.AN2 ---
ASA Classification* ASA Classification ASA Classification: 3 Assessment & Plan Anesthesia* Anesthesia Assessment Anesthesia Assessment: Discussed sedation and/or anesthesia options, risks, benefits, and alternatives with patient/parents/legal guardian/POA. Questions invited. The patient/parents/legal guardian/POA seems to understand and agrees to proceed with anesthesia plan. Reviewed the physical assessment, medical history, allergy history and patient home medications list prior to surgery/procedure/anesthetic and documented any changes. Performed airway and anesthesia risk assessments. Anesthesia Type Anesthesia Type: General History Source History Obtained from:: Patient, Chart and Significant Other (Spouse) Anesthesia Focused Assessment* Temperature: 97.5 F Pulse Rate: 78 Blood Pressure: 108/74 Respiratory Rate: 18 Pulse Ox: 92 Oxygen Delivery Method: Room Air Airway Assessment Mouth opens: >3 cm Mallampati Score: II Teeth Condition: Chipped/Broken and Missing Neck Range of motion (ROM): Limited ROM Labs Anesthesia Preop lab: CBC WBC, (4.4-11.0) 8.4 K/mm3 06/28/25, : RBC, (4.6-6.2) 4.04 M/mm3 L 06/28/25, : Hgb, (13.0-16.5) 12.1 g/dL L 06/28/25, : Hct, (40-54) 36.4 % L 06/28/25, : Plt Count, (150-450) 262 K/mm3 06/28/25, 14: CHEMISTRY Potassium, (3.3-5.1) 3.7 mmol/L 06/28/25, : Sodium, (133-145) 137 mmol/L 06/28/25, : BUN, (4-19) 16 mg/dL 06/28/25, : Creatinine, (0.70-1.20) 1.17 mg/dL 06/28/25, : Glucose, (70-99) 101 mg/dL H 06/28/25, : TSH, (0.358-3.74) 2.72 uIU/mL 05/09/24, 06:01 COAG PT, (11.7-14.9) 13.5 SECONDS 05/09/24, 06:01 Pre-Assessment Diagnosis/Proposed Procedure Planned Operative Procedure(s): INSERTIONRIGHT POSS LEFT IJ,EGD WITH PEG TUBE INSERTION Anesthesia History Anesthesia History - fluid power mechanic: Anesthesia History - fluid power mechanic Hx Hospitalization No 06/24/25 08:12 Any Problems With Anesthesia No 06/24/25 08:12 Cholinesterase deficiency No 06/24/25 08:12 You/Your Family Experience No 06/24/25 08:12 fever (hyperthermia) with Relationship Recent Exposure to Contagious No 06/30/25 07:23 Disease Does patient have nerve No 06/24/25 08:12 stimulator Patient instructed to have device shut off --Does patient have Pacemaker No 06/30/25 07:23 or ICD? When Was Last Pacemaker Check QUESTION #4 FULL TEXT: You/Your Family Experience fever (hyperthermia) with Anesthesia Last Oral Intake Last Oral intake: Last Oral Intake NPO since 06:45 06/30/25 07:23 Meds taken in AM with sips of Yes 06/30/25 07:23 water? Meds patient instructed to levothyroxine, carbidopa/ 06/30/25 07:23 take am of surgery levodopa, omeprazole, motegrity, fludrocort, Tamsulosin PONV PONV - fluid power mechanic: PONV - fluid power mechanic Female No 06/24/25 08:12 HX of Motion Sickness No 06/24/25 08:12 HX of N/V After Surgery No 06/24/25 08:12 Non-Smoker Yes 06/24/25 08:12 Duration of Surgery greater Yes 06/24/25 08:12 than 60 minutes Number of Risk Factors 2 06/24/25 08:12 PONV Score Moderate Risk 06/24/25 08:12 Height & Weight Height & Weight: Anesthesia: Height & Weight Height 5 ft 8 in 06/30/25 07:23 Weight: 70 kg 06/30/25 07:23 Body Mass Index (BMI) 23.4 06/30/25 07:23 Respiratory Assessment Respiratory Assessment - fluid power mechanic: Respiratory Tract Infection Hx - fluid power mechanic Hx Respiratory Tract Infection No 06/24/25 08:12 STOP Sleep Apnea STOP Sleep Apnea - fluid power mechanic: STOP Sleep Apnea - fluid power mechanic Hx Hypertension No 06/24/25 08:12 Hx Sleep Apnea No 06/24/25 08:12 CPAP BIPAP Do you snore loudly (louder Yes 06/24/25 08:12 than talking or can be heard Do you often feel tired/ Yes 06/24/25 08:12 fatigued/ sleepy during daytime? Has anyone observed you stop No 06/24/25 08:12 breathing during sleep? STOP Results Positive 06/24/25 08:12 QUESTION #5 FULL TEXT : Do you snore loudly (louder than talking or can be heard through closed doors)? 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 - fluid power mechanic: Tobacco Use History - fluid power mechanic Tobacco Use Smoking Status Former smoker 06/24/25 08:12 Hx Tobacco Use No 06/24/25 08:12 Years Smoking Packs Smoked per Day Smoking Cessation Date was No - quit smoking greater 06/24/25 08:12 within the last 15 years than 15 years ago Hx Smoking Cessation Date 10/14/69 06/24/25 08:12 Hx Smoking Cessation Counseling Hematologic Medial History Hematologic Hx - fluid power mechanic: Hematologic Medical Hx - watermaster Hx of Blood Transfusion No 06/24/25 08:12 Hx of Transfusion in last 3 No 06/24/25 08:12 Months Date of Last Transfusion (if within last 3 months) Ever experience any problems No 06/24/25 08:12 with transfusion(s)? 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 confused, unrespo /Reproduction History /Reproductive History - fluid power mechanic: /Reproductive Hx- fluid power mechanic Hx Now No 06/24/25 08:12 Gestational Age (in weeks): EDC: Hx Hx Para Hx Section SAB No 06/24/25 08:12 Active Medications Active Medications: Current Medications Generic Name Dose Route Start Last Admin Trade Name Freq PRN Reason Stop Dose Admin Cefazolin Sodium 2 gm/ Sodium 110 mls @ 200 mls/hr 06/30/25 09:00 Chloride IV 06/30/25 09:32 INTRAOP ONE Lactated Ringer's 1,000 mls @ 15 mls/hr 06/30/25 07:15 06/30/25 07:39 IV 15 mls/hr .Q48H KRISHAN Administration PFSH Medical History Encounter for education Wears glasses Cancer Alcohol use History of steroid therapy Thyroid disease Uses wheelchair Arthritis Prostate disease Low iron DVT (deep venous thrombosis) Back pain Migraine headache Parkinson's disease Orthostatic hypotension Syncope Dietary restriction History of diverticulitis Gastric reflux Chronic cough Former smoker History of pain when walking History of stress test History of echocardiogram Cardiology follow-up encounter Celiac disease Home Medications ?Medication ?Instructions ?Recorded ?Last Taken ?Type levothyroxine 50 mcg tablet 50 mcg PO QDAY 03/05/24 06/30/25 History omeprazole 40 mg capsule,delayed 40 mg PO QDAY 03/05/24 06/30/25 History release tamsulosin 0.4 mg capsule 0.4 mg PO BID 03/05/24 06/30/25 History prucalopride 2 mg tablet 2 mg PO DAILY 05/09/24 06/30/25 History (Motegrity) carbidopa ER 25 mg-levodopa 100 mg 1 tab PO .qid 06/10/25 06/30/25 History tablet,extended release fludrocortisone 0.1 mg tablet 0.1 mg PO QDAY 06/17/25 06/30/25 History lidocaine-prilocaine 2.5 %-2.5 % 1 applic topical ONCE PRN port 06/28/25 Unknown Rx topical cream access 30 days #30 grams ondansetron 8 mg disintegrating 8 mg PO Q8H PRN nausea and 06/28/25 Unknown Rx tablet vomiting #30 tabs Allergy/AdvReac Type Severity Reaction Status Date / Time gluten Allergy Abd Verified 06/30/25 07:22 cramps/diarrhea aripiprazole AdvReac unknown Verified 06/30/25 07:22 haloperidol AdvReac unknown Verified 06/30/25 07:22 metoclopramide AdvReac unknown Verified 06/30/25 07:22 olanzapine AdvReac unknown Verified 06/30/25 07:22 prochlorperazine AdvReac unknown Verified 06/30/25 07:22 promethazine AdvReac unknown Verified 06/30/25 07:22 Family History Brother Cancer THROAT Mother Leukemia Sister Breast cancer Surgical History Hx of right cataract extraction Hx of left cataract extraction Hx of eye surgery History of hydrocelectomy Hx of hernia repair Hx of colonoscopy Social History household members: significant other housing: house current occupational status: retired Smoking Status: Former smoker alcohol intake: never substance use type: does not use Review of Systems (Anesthesia) ROS Narrative System reviewed and no additional complaints, except as documented.
[2025-06-30] MEDS: Lactated Ringers 1,000 ML 1000 ML IV (08:43)
[2025-06-30] MEDS: Cefazolin 1 GM/5 ML Vial 2 GM IV (08:45)
--- NOTE | 2025-06-30 08:45 | EGD_PTH ---
PATIENT: CARLOS BARCLAY LOC: [facility] U#:[id number] AGE/SX: 80/M ROOM: RE06/30/[address]: Dr. Kalyn Ng MD : 1945 BED: DIS: 06/30/2025 SPEC #: [id number] RECD: 06/30/25 10:22 STATUS: ELIA REArlet #: [id number] WEI: 06/30/25 08:[address]: Kalyn Ng DEPT: SURGICAL PATHOLOGY RECD BY: David Ortiz ENTERED: 06/30/25 11:36 SP TYPE: EGD BIOPSY OTHR DR: Eloina Chi MD Tissues: A - Gastric mucous membrane B - Esophagus, NOS Procedures: Immunohistochemical Stains Surgery Specimen Level IV HEADER OPERATION: Insertion, right vascular port, EGD with PEG Tube Placement PRE-OP DIAGNOSIS: Encounter for insertion of venous access port, encounter for PEG, squamous cell carcinoma of oropharynx TISSUE SUBMITTED: A- Antrum biopsy, B- GE junction biopsy MICROSCOPIC DIAGNOSIS A. Stomach, antrum, biopsies: - Oxyntic mucosa with slight chronic inflammation - An immunohistochemical stain for Helicobacter pylori is negative B. Gastroesophageal junction: * Benign squamous epithelium * Oxynto-cardiac mucosa with chronic inflammation * No goblet cell metaplasia is identified MICROSCOPIC DESCRIPTION Slides are reviewed. All matched controls reacted appropriately. These tests were developed and their performance characteristics determined by [facility]. They may not have been cleared or approved by the U.S. Food and Drug Administration. The FDA has determined that such clearance or approval is not necessary. The above immunohistochemical/dualISH markers are viewed by the Pathologist. GROSS DESCRIPTION A. Received in fixative is one container labeled with the patient's name and designated Antrum biopsy. The specimen consists of one irregular fragment of light lozada tissue that measures 0.4 cm. The specimen is totally submitted in one cassette. B. Received in fixative is one container labeled with the patient's name and designated GE junction biopsy. The specimen consists of three irregular fragments of light lozada tissue that measure <0.1 to 0.3 cm. Smallest fragments may not survive processing. The specimen is totally submitted in one cassette. VT 06/30/2025 CPT:64887u3,38839
[2025-06-30] MEDS: Lidocaine 1% (5 ml sdv) 5 ML Vial 6 ML IV (08:59)
[2025-06-30] MEDS: Lidocaine 1% /Epi 1:100 (20ml) 20 ML Vial (09:01)
[2025-06-30] MEDS: fentaNYL 100 MCG/2 ML Ampul 75 MCG IV (09:34)
--- NOTE | 2025-06-30 09:46 | OP.PCM_ITS ---
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, squamous cell carcinoma of oropharynx Post-Operative Diagnosis: Same Surgery/Procedure Performed: Placement of right IJ Port-A-Cath Use of fluoroscopy Use of ultrasound restaurant crew member: No Type of Anesthesia: Local MAC RN Documented Start/Stop Times: Operation Date: 06/30/25 09:30 Case Time Anesthesia Start 06/30/25 09:17 Into Room 06/30/25 09:17 Procedure Start 06/30/25 09:27 Procedure End 06/30/25 09:43 Anesthesia End 06/30/25 09:51 Out of Room 06/30/25 09:51 Procedure Start Time: : Procedure Stop Time: :43 Select all DRAINS/GRAFTS/IMPLANTS that apply: Implanted device Implanted device details: [employer] PowerPort isp M.R.I. 6Fr Lot [id number] Special Medications: Ancef 2 g IV x 1 Estimated Blood Loss: < 10 cc Specimen collected: No Description of surgery: After informed consent was given, the patient was brought to the operating room and placed in the supine position. Appropriate time out protocol was followed. Patient was then given IV conscious sedation for anesthesia. The patient's right upper chest and neck were then prepped with a surgical skin preparation and sterile surgical drapes were placed. After proper landmarks were ascertained, the skin at the upper right chest area was then infiltrated with 1:1 mixture of 1% lidocaine with epinephrine and 0.5% marcaine. A needle trocar was then inserted into the right internal jugular vein with ultrasound guidance-multiple vessels were viewed with u/s and the right IJ was chosen-- and there was good aspiration of venous blood. A wire was then threaded into the needle trocar and this was visualized under fluoroscopy to ensure that the wire was in the superior vena cava. Once this was done, then the needle trocar was removed. A small skin amanda was made with an 11 blade knife at the wire entrance site. The dilator with the introducer sheath attached was then placed over the wire into the right internal jugular vein via the Seldinger technique and this was visualized under fluoroscopy. The dilator and sheath were in proper position as visualized by fluoroscopy. A subcutaneous pocket was then created caudad to the catheter insertion site. A transverse skin incision was made after the skin and subcutaneous tissues were infiltrated with local anesthetic. Blunt dissection was then used to create a space large enough for placement of the subcutaneous port. The catheter was then tunneled into the subcutaneous pocket. The wire and dilator were then removed. The catheter was then threaded into the introducer sheath and was positioned with its tip at the junction of the superior vena cava and the right atrium as visualized under fluoroscopy. The excess catheter was transected. The catheter was then attached to the subcutaneous port using manufacturers guidelines. The catheter was flushed with a heparin saline mixture prior to placement. Hemostasis was carefully controlled with electrocautery. The port was sutured to the subcutaneous fascia using 2-0 Vicryl suture at two sites. The port was then placed in the subcutaneous pocket. The incision were reapproximated with interrupted subdermal 3-0 vicryl sutures. The skin was reapproximated with 3-0 nylon suture in a interrupted fashion. Steristrips were used for reinforcement of the skin closure at IJ insertion site and a sterile opsite dressings were applied. The patient tolerated the procedure well. Surgical Findings: See operative report Complications Complications: No
--- NOTE | 2025-06-30 09:48 | DCINST_ITS ---
Discharge Instructions Procedure Port-A-Cath Diet Discharge Diet: Light diet - advance as tolerated Activity May shower in (days): 5 (Keep port site clean and dry x5 days. Neck incision okay to get wet after 1 day. Okay to lower shower and upper sponge bath. OR okay to taper off port site with a Ziploc bag to shower) Lifting Restrictions: No lifting > 15 pounds for 3 days with the arm on the side of the port Dressing / Incision Call your doctor if your incision/area has: Continuous Slow Oozing, Sudden Increased Bleeding, Increased Pain/ Swelling, Increased Redness, Foul Smelling Discharge and Swelling at the incision site Call your doctor if you observe: Fever of 101 or Higher Change Dressing in: 2 days (2-3 days- port site; ok to remove neck opsite in 1 day) Additional Dressing/Incision Instructions:: Flush PEG tube daily with 60 cc of tap water, clean under bumper daily-do not put gauze under the bumper or if you do only do 1 layer of gauze Follow Up Care Please Follow Up With: Kalyn Ng MD When: In 10 days for permanent suture removal?call office for appointment Test Results: Test results from this visit will be discussed in further detail at your follow- up appointment, if applicable. Discharge Plan Admission Attending Provider: Kalyn Ng Primary Care Provider: Eloina Chi Instructions Print Language: Swedish Discharge Orders/Prescriptions Prescriptions: Continued levothyroxine 50 mcg tablet 50 mcg PO QDAY omeprazole 40 mg capsule,delayed release(DR/EC) 40 mg PO QDAY tamsulosin 0.4 mg capsule 0.4 mg PO BID carbidopa-levodopa 25-100 mg tablet extended release 1 tab PO .qid fludrocortisone 0.1 mg tablet 0.1 mg PO QDAY ondansetron 8 mg tablet,disintegrating 8 mg PO Q8H PRN (Reason: nausea and vomiting) Qty: 30 1RF lidocaine-prilocaine 2.5-2.5 % cream 1 applic topical ONCE PRN (Reason: port access) 30 Days Qty: 30 2RF prucalopride [Motegrity] 2 mg tablet 2 mg PO DAILY Referrals / Follow Up: Eloina Chi MD [Primary Care Provider, Family Practice] Disposition Disposition (needs filled in before D/C Order can be placed): Home, Self Care
--- NOTE | 2025-06-30 09:59 | PCM.POST.ANE ---
Anesthesia: Postop Eval I Current Vital Signs Temperature: 97.2 F Pulse Rate: 101 Blood Pressure: 98/63 Respiratory Rate: 18 Pulse Ox: 94 Oxygen Delivery Method: Room Air Assessment Airway patent: Yes Spontaneous unlabored respirations: Yes Mental status: Calm nausea: No Vomiting: No Anesthesia Complication: No Fluid Hydration Crystalloid volume administer (ml): 1,200 Total IV fluid infused: 1,200 Progress Note Anesthesia document: Postop Eval 1 completed: Yes
--- NOTE | 2025-06-30 10:03 | OP.PROVAT_ITS ---
06/30/2025 Eloina Chi Md Re : Upper GI endoscopy procedure for Glenn Parada Dear Alon This procedure was performed on Monday, June 30, 2025. My impressions and recommendations are as follows: Impressions : - Z-line irregular, 40 cm from the incisors. Biopsied. - Gastritis. Biopsied. - No gross lesions in the duodenal bulb, in the first portion of the duodenum and in the second portion of the duodenum. - Small hiatal hernia. - An externally removable PEG placement was successfully completed. Recommendations : - Please follow the post-PEG recommendations including: change dressing on top of bumper daily, may use PEG today for meds and water, flush PEG daily with 60 ml water and clean site with soap and water daily and dry thoroughly. - Continue present medications. My findings are described in the full procedure note, which is enclosed. If I can be of further assistance, please feel free to contact me at Doctor phone number(s): , Work: . Sincerely, MD Kalyn Kaufman MD 06/30/2025 10:03:04 AM This report has been signed electronically.
--- NOTE | 2025-06-30 10:03 | OP.EGD_ITS ---
Patient Name: Glenn Parada Procedure Date: 06/30/2025 8:32 AM Date of : 1945 Age: 80 Procedure: Upper GI endoscopy Indications: Place PEG due to feeding difficulties secondary to oropharyngeal tumor Providers: Kalyn Ng MD Referring MD: Kalyn Ng MD Medicines: Monitored Anesthesia Care Patient Profile: This is an 80 year old male. Complications: No immediate complications. Procedure: Pre-Anesthesia Assessment: - Prior to the procedure, a History and Physical was performed, and patient medications and allergies were reviewed. The patient's tolerance of previous anesthesia was also reviewed. The risks and benefits of the procedure and the sedation options and risks were discussed with the patient. All questions were answered, and informed consent was obtained. Prior Anticoagulants: The patient has taken no anticoagulant or antiplatelet agents. ASA Grade Assessment: Per anesthesia. After reviewing the risks and benefits, the patient was deemed in satisfactory condition to undergo the procedure. After obtaining informed consent, the endoscope was passed under direct vision. Throughout the procedure, the patient's blood pressure, pulse, and oxygen saturations were monitored continuously. The Endoscope was introduced through the mouth, and advanced to the second part of duodenum. The upper GI endoscopy was accomplished without difficulty. The patient tolerated the procedure well. Scope In: 9:27:30 AM Scope Out: 9:43:32 AM Total Procedure Duration Time 0 hours 16 minutes 2 seconds Findings: The Z-line was irregular and was found 40 cm from the incisors. Biopsies were taken with a cold forceps for histology. Mild inflammation characterized by erythema was found in the gastric antrum. Biopsies were taken with a cold forceps for histology. Biopsies were taken with a cold forceps for Helicobacter pylori cultures. No gross lesions were noted in the duodenal bulb, in the first portion of the duodenum and in the second portion of the duodenum. A small hiatal hernia was present. The patient was placed in the supine position for PEG placement. The stomach was insufflated to appose gastric and abdominal mckinney. A site was located in the body of the stomach with excellent transillumination for placement. The abdominal wall was marked and prepped in a sterile manner. The area was anesthetized with 4 mL of 0.5% lidocaine. The trocar needle was introduced through the abdominal wall and into the stomach under direct endoscopic view. A snare was introduced through the endoscope and opened in the gastric lumen. The guide wire was passed through the trocar and into the open snare. The snare was closed around the guide wire. The endoscope and snare were removed, pulling the wire out through the mouth. A skin incision was made at the site of needle insertion. The externally removable 20 Fr EndoVive Safety gastrostomy tube was lubricated. The G-tube was tied to the guide wire and pulled through the mouth and into the stomach. The trocar needle was removed, and the gastrostomy tube was pulled out from the stomach through the skin. The external bumper was attached to the gastrostomy tube, and the tube was cut to remove the guide wire. The final position of the gastrostomy tube was confirmed by relook endoscopy, and skin marking noted to be 2.5 cm at the external bumper. The final tension and compression of the abdominal wall by the PEG tube and external bumper were checked and revealed that the bumper was loose and lightly touching the skin. The feeding tube was capped, and the tube site cleaned and dressed. Impression: - Z-line irregular, 40 cm from the incisors. Biopsied. - Gastritis. Biopsied. - No gross lesions in the duodenal bulb, in the first portion of the duodenum and in the second portion of the duodenum. - Small hiatal hernia. - An externally removable PEG placement was successfully completed. Recommendation: - Please follow the post-PEG recommendations including: change dressing on top of bumper daily, may use PEG today for meds and water, flush PEG daily with 60 ml water and clean site with soap and water daily and dry thoroughly. - Continue present medications. 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 All rights reserved. The codes documented in this report are preliminary and upon software engineering analyst review may be revised to meet current compliance requirements. MD Kalyn Kaufman MD 06/30/2025 10:03:04 AM This report has been signed electronically. Number of Addenda: 0 Note Initiated On: 06/30/2025 8:32 AM
--- NOTE | 2025-06-30 10:15 | RAD_ITS ---
PROCEDURE: CHEST 1 VIEW (PORTABLE) 06/30/2025 REASON FOR EXAM: PORT Port placement. TECHNIQUE: Frontal view of the chest. COMPARISON: Prior study dated May 09, 2024. FINDINGS: Hardware: A right-sided port a catheter is seen with the tip in the right atrium. Heart: The heart is nonenlarged. Lungs: No acute infiltrate is seen. Bones: Degenerative changes are identified within the thoracic spine. Other: RAD/Chest 1 View (Portable) IMPRESSION: The tip of the right-sided port a catheter is in the right atrium. No evidence of pneumothorax. Reading Location: [facility]
--- NOTE | 2025-06-30 10:16 | NS ---
06/30/25: Met with patient's spouse, Janel in healthcare project manager. Pt was getting a port and PEG tube placed today. Provided Nutrition Before, During, and After Cancer Treatment booklet. Janel reports pt has been losing some weight and eating less than he normally does. Discussed reviewing information in booklet for ways to add calories and protein to foods. Currently drinking at least 1 Ensure/Boost shake daily. Janel reports patient is allergic to gluten, concerned about feeding tube formula. RDN contact information provided. Plan to meet with patient in oncology on 07/05/25. Joaquina Koo RDN, LD
--- NOTE | 2025-06-30 13:25 | POSTOPAN2_ITS ---
Anesthesia Postop Eval I Sum Postop Eval Completion status Anesthesia document: Postop Eval 1 completed: Yes Anesthesia Postop Eval I Summary Anesthesia Postop Eval I Summary: Anesthesia Postop Eval I: Assessment Summary Airway patent Yes 06/30/25 09:59 EDITOR AT [email or web address] Spontaneous unlabored Yes 06/30/25 09:59 EDITOR AT [email or web address] respirations Mental status Calm 06/30/25 09:59 EDITOR AT [email or web address] nausea No 06/30/25 09:59 EDITOR AT [email or web address] Vomiting No 06/30/25 09:59 EDITOR AT [email or web address] Anesthesia Postop Eval I: Fluid Summary Crystalloid volume administer 1,200 06/30/25 09:59 EDITOR AT [email or web address] (ml) Colloids volume administered ( ml) Blood Product volume administered (ml) Total IV fluid infused 1,200 06/30/25 09:59 EDITOR AT [email or web address] Anesthesia Postop Eval I: Summary Notes Anesthesia Complication No 06/30/25 09:59 EDITOR AT [email or web address] Anesthesia Complication Comment: Post-operative progress note Anesthesia: Postop Eval II Evaluation Mental status: Awake and Calm Pain Level: 1 nausea: No Vomiting: No Complications Anesthesia Complication: No
--- NOTE | 2025-06-30 13:25 | PCM.POSTANE2 ---
Anesthesia Postop Eval I Sum Postop Eval Completion status Anesthesia document: Postop Eval 1 completed: Yes Anesthesia Postop Eval I Summary Anesthesia Postop Eval I Summary: Anesthesia Postop Eval I: Assessment Summary Airway patent Yes 06/30/25 09:59 MANUFACTURING COST [email or web address] Spontaneous unlabored Yes 06/30/25 09:59 MANUFACTURING COST ESTIMATOR.[email or web address] respirations Mental status Calm 06/30/25 09:59 MANUFACTURING COST ESTIMATOR.[email or web address] nausea No 06/30/25 09:59 MANUFACTURING COST ESTIMATOR.[email or web address] Vomiting No 06/30/25 09:59 MANUFACTURING COST [email or web address].[email or web address] Anesthesia Postop Eval I: Fluid Summary Crystalloid volume administer 1,200 06/30/25 09:59 MANUFACTURING COST ESTIMATOR.[email or web address] (ml) Colloids volume administered ( ml) Blood Product volume administered (ml) Total IV fluid infused 1,200 06/30/25 09:59 MANUFACTURING COST ESTIMATOR.[email or web address] Anesthesia Postop Eval I: Summary Notes Anesthesia Complication No 06/30/25 09:59 MANUFACTURING COST ESTIMATOR.[email or web address] Anesthesia Complication Comment: Post-operative progress note Anesthesia: Postop Eval II Evaluation Mental status: Awake and Calm Pain Level: 1 nausea: No Vomiting: No Complications Anesthesia Complication: No
== END 2025-06-30 11:18 | disposition home or self-care (01) ==
LOC: SDC 07:04 → AC 07:05
PROVIDERS: PCP Family Medicine; Referring Provider Surgery; Visit Provider Surgery
PROC: (CPT 43239; principal; 2025-06-30 08:30)
PROC: 0DJ08ZZ Inspection of Upper Intestinal Tract, Via Natural or Artificial Opening Endoscopic (ICD-10-PCS; CPT 43235; principal; 2025-06-30 09:25)
DX: Z45.2 Encounter for adjustment and management of vascular access device (principal); C77.9 Secondary and unspecified malignant neoplasm of lymph node, unspecified; Z43.1 Encounter for attention to gastrostomy; C10.9 Malignant neoplasm of oropharynx, unspecified; G20.A1 Parkinson's disease without dyskinesia, without mention of fluctuations; K44.9 Diaphragmatic hernia without obstruction or gangrene; R63.30 Feeding difficulties, unspecified; K29.50 Unspecified chronic gastritis without bleeding; Z87.891 Personal history of nicotine dependence; E07.9 Disorder of thyroid, unspecified; Z79.890 Hormone replacement therapy; Z79.899 Other long term (current) drug therapy; K21.00 Gastro-esophageal reflux disease with esophagitis, without bleeding
CPT/HCPCS: 43239; 43246; 36561; 00731; 71045; 77001; 88305; 88342; J2405

== ENCOUNTER → 2025-07-08 | Outpatient (CLI) | payer MEDICARE, SELFPAY ==
--- NOTE | 2025-07-08 13:27 | ST.MBS ---
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 UGI endoscopy 06/30/25 for PEG placement revealing irregular Z-line, gastritis, and small hiatal hernia. Dysphagia Hx: Minimal pain in the back of his tongue at all times; otherwise, no odynophagia. Mild hypogeusia and hx of anosmia. Per , pt is more hoarse than in the past. Pt consumes Regular textures / Thin liquids. Pt denies sensation of retention or difficulty swallowing food/drink. , Janel, reports some coughing when drinking large volumes, especially if drinking quickly prior to taking PD medication. BSE in December of 2024 revealed excrescence in back of throat and recommended ENT consult, which began his cancer work up above. BSE revealed mild oropharyngeal dysphagia and recommended Regular textures / Thin liquids w/ the following compensatory strategies: Small bites/sips, Slow rate, Sips one at a time, Sit upright during and 30 min after po intake. He was recommended for this MBSS today to further assess risk for aspiration and capture baseline swallow function prior to completion of chemoradiation treatment, which began 07/05/2025. Other PMH: Parkinson's disease (managed w/ medication), Alcohol use, Thyroid disease, DVT, Orthostatic hypotension, Syncope, Hx of diverticulitis, Gastric reflux, Hx of diverticulitis, Former smoker, Celiac disease - See EMR for full PMH. 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 Current Diet Ordered: Regular textures / Thin liquids Respiratory Status: Oxygenating on Room Air Penetration-Aspiration Scale Penetration-Aspiration Scale: OBJECTIVE ASSESSMENT OF SWALLOW FUNCTION (QUANTITATIVE – PER TRIAL): PENETRATION / ASPIRATION SCALE (GUTIERREZ): 1 = does not enter airway 2 = enters airway/above vocal folds/ejected 3 = enters airway/above vocal folds/not ejected 4 = enters airway/contacts vocal folds/ejected 5 = enters airway/contacts vocal folds/not ejected 6 = enters airway/below vocal folds/ejected 7 = enters airway/below vocal folds/not ejected despite effort 8 = enters airway/below vocal folds/no effort VIDEOFLOROSCOPIC SCALE SCORE (GUTIERREZ): Grade I = aspiration of material that has penetrated into the laryngeal vestibule, intact cough reflex Grade II = aspiration < 10 % of the bolus, intact cough reflex Grade III = aspiration of < 10 % of the bolus, reduced cough reflex or aspiration of > 10 % of the bolus, intact cough reflex Grade IV = aspiration of > 10 % of the bolus, reduced cough reflex Penetration-Aspiration Scale Score Thin Liquid via teaspoon: Result: 1= does not enter airway Thin Liquid via teaspoon Trial 2: Result: 3= enters airways/above vocal folds/not ejected Thin Liquid via small single sip: cup: Result: 8= enters airway/below vocal folds/no effort Comment: Cued cough 2X and throat clear 2X to attempt ejecting barium, which was somewhat effective. [place] Thick Liquid via large single sip: cup: Result: 1= does not enter airway Pudding via teaspoon: Result: 1= does not enter airway Comment: Esophageal screen - Mild retention in the lower esophagus. Potato Chip (GF) coated in pudding: Result: 1= does not enter airway Thin Liquid via small single sip: cup Effortful swallow: Result: 1= does not enter airway Thin Liquid via small single sip: cup Chin tuck: Result: 2= enter airway/above vocal folds/ejected Comment: Trace post prandial laryngeal penetration before the trial, likely of residues from earlier trials. Thin Liquid via single sip: straw Chin tuck: Result: 3= enters airways/above vocal folds/not ejected Oral Phase Labial Seal: Interlabial escape, no progression to anterior lip Tongue Control During Bolus Hold: Posterior escape of less than half of bolus Bolus Preparation/Mastication: Slow prolonged chewing/mashing with complete recollection Bolus Transport/Lingual Motion: Slowed tongue motion Oral Residue: Residue collection on oral structures Pharyngeal Phase Initiation of Pharyngeal Swallow: Bolus head at posterior laryngeal surgace of epiglottis Soft Palate Elevation: Trace column of contrast/air between soft palate and pharyngeal wall Laryngeal Elevation: Partial superior movement thyroid cart/partial apprx aryt-epig petiole Anterior Hyoid Excursion: Partial anterior movement Epiglottic Movement: Complete inversion Laryngeal Vestibule Closure at Height of Swallow: Incomplete; narrow column of air/contrast in laryngeal vestibule Pharyngeal Stripping Wave: Present - diminished Pharyngoesophageal Segment Opening: Complete distension and complete duration; no obstruction of flow Tongue Base Retraction: Wide column of contrast between tongue base & post. pharyngeal wall Pharyngeal Residue: Collection of residue within or on pharyngeal structures Esophageal Phase Esophageal Clearance: Esophageal retention Diagnosis/Impression Diagnosis: Mild-moderate oropharyngeal dysphagia R13.12 MBS Impressions: The oral phase is primarily marked by... -Slowed, but complete mastication. -Decreased bolus control w/ premature posterior loss to the posterior surface of the epiglottis w/ thin by tsp. -Slowed tongue motion for A-P transport. -Mild oral residue of potato chip, which cleared w/ a second swallow. The pharyngeal phase is primarily marked by... -Delayed swallow onset. -Decreased pharyngeal motility due to decreased TB retraction and pharyngeal stripping wave w/ mild-moderate pharyngeal residue of potato chip, which cleared w/ a second swallow. -Decreased airway closure due to decreased laryngeal elevation, anterior hyoid excursion, and inconsistent epiglottic inversion. -Silent aspiration of thin liquids via cup. Effortful swallow was most effective in decreasing risk for aspiration. The esophageal phase is primarily marked by... -Mild retention of pudding in the lower esophagus. Recommendations Diet: Regular Textures and Thin Liquids Comment: Medications whole in puree, Intermittent cough and re-swallow Compensatory Strategies: Small Bites, Small Sips (Effortful/Hard Swallows, Sips 1 at a Time), Slow Rate, Multiple Swallows (Double Swallows), Alternate bites/solids and sips/liquids, Sitting upright and Remain sitting upright for 30 minutes after PO intake Recommend Repeat Modified Barium Swallow: Yes Comment: Repeat MBSS 3 months after completion of chemoradiation to monitor swallow function as the patient is at risk for worsening dysphagia and aspiration risk s/p chemoradiation treatment. Need for Skilled Speech Therapy Services: Yes Comment: Continue per OP ST POC. Education Completed: 1. Described result of evaluation., 2. Pt understands evaluation & agrees with goals and treatment plan., 4. Family/caregivers understand evaluation & agree w/ goals & tx plan. and 7. Pt requires further education on strategies & risks. Status Active ST Patient: Active Contact Information [facility] Speech Therapy:: Augusta Ashford M.A. [facility] [employer] Speech-Language Pathologist [facility] [address] [place] [address] [email or web address] [phone]
== END | disposition home or self-care (01) ==
LOC: RAD 12:53
PROVIDERS: PCP Family Medicine; Referring Provider Student in an Organized Health Care Education/Training Program; Visit Provider Student in an Organized Health Care Education/Training Program
DX: C10.9 Malignant neoplasm of oropharynx, unspecified (principal)
CPT/HCPCS: 74230; 92611

== ENCOUNTER 2025-07-29 09:30 | Outpatient (RCR) | payer MEDICARE, SELFPAY ==
--- NOTE | 2025-07-02 16:09 | HP.SP.EVAL ---
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 Pt did not return for dysphagia therapy as he was going through cancer work-up, so the POC was discontinued. 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 UGI endoscopy 06/30/25 for PEG placement revealing irregular Z-line, gastritis, and small hiatal hernia. Dysphagia Hx: Minimal pain in the back of his tongue at all times; otherwise, no odynophagia. Mild hypogeusia and hx of anosmia. Per , pt is more hoarse than in the past. Pt consumes Regular textures / Thin liquids. Pt denies sensation of retention or difficulty swallowing food/drink. , Janel, reports some coughing when drinking large volumes, especially if drinking quickly prior to taking PD medication. Other PMH: Parkinson's disease (managed w/ medication), Alcohol use, Thyroid disease, DVT, Orthostatic hypotension, Syncope, Hx of diverticulitis, Gastric reflux, Hx of diverticulitis, Former smoker, Celiac disease - See EMR for full PMH. 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 He lives at home w/ his . Smoking Status: Former smoker Pain Is pain an issue with your current prescribed condition?: Yes Personal Preferred language: Kiswahili Patient Allergies Allergies Allergies: Allergies gluten Allergy (Verified 06/30/25 07:22) Abd cramps/diarrhea aripiprazole Adverse Reaction (Verified 06/30/25 07:22) unknown haloperidol Adverse Reaction (Verified 06/30/25 07:22) unknown metoclopramide Adverse Reaction (Verified 06/30/25 07:22) unknown olanzapine Adverse Reaction (Verified 06/30/25 07:22) unknown prochlorperazine Adverse Reaction (Verified 06/30/25 07:22) unknown promethazine Adverse Reaction (Verified 06/30/25 07:22) unknown Subjective Dysphagia Symptoms Reported Symptoms/Problems with: Coughing and Difficulty Swallowing Liquids Current Diet Solids Current Diet: Regular Current Diet Liquids Current Liquids: Thin Comments Other: -: PEG tube placed prophylactically for chemoradiation treatment. Pt is currently consuming a full oral diet. Objective Dysphagia Administered by Administered by: Self Thin Liquids Administred via: Straw Oral Transit: WNL Bolus clearance: fully cleared Comments: Thin liquids consumed via single and sequential sips by straw w/ mild delay, no overt s/s of aspiration, good oral containment, and good oral clearance. Pureed Administered via: Spoon Oral Preparation: WNL Oral Transit: WNL Bolus clearance: fully cleared Comments: Timely swallow of applesauce, good oral clearance, no overt s/s of aspiration, no sensation of retention. Regular Oral Preparation: WNL Oral Transit: WNL Bolus clearance: significant clearance/minimal residue Comments: Timely mastication of GF crackers, no overt s/s of aspiration, no sensation of retention. Swallowing Impairment Contributing Factors to Swallowing Impairment: Delayed Swallow Initiation Recommendations Modified Barium Swallow/Cookie Swallow Recommended: Yes Swallowing Treatment: Yes Diet Texture Recommendations Solids: Regular (Level 7) Liquids: Thin (Level 0) Safety Other: Small bites/sips, Slow rate, Sips one at a time, Sit upright during and 30 min after po intake. Results Swallowing Within Normal Limits: No Swallowing Diagnosis: Oropharyngeal Phase Dysphagia (R13.12) Severity: Mild Subjective Oral Motor Subjective Patient Reports: Difficulty being Understood Comments Comments: reports it has been harder to understand his speech recently. Will continue to monitor given hx of PD and request orders from physician if pt would like speech production assessment. 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 Increased hoarseness per . XII Hypoglossal Nerve XII Hypoglossal Nerve Result: Impaired Comment:: Tongue slightly deviates L. Swallowing Performance Scale Swallowing Performance Scale Swallowing Performance Scale Result: 3 Mild Reference: Neuro-QoL instrument Radiation Oncology Patient FOIS Functional Oral Intake Scale Total oral diet with multiple consistencies, but requiring special preparation or compensations: Level 5 Other Other EAT-10: -: Eating Assessment Tool (EAT-10) – Score = 1 Score of 3 or more indicates there may be a swallowing problem or dysphagia. For patients with head and neck cancer, researchers found a cut-off value of 19 to be helpful in detecting presence of post-swallow pharyngeal residue. Plan Plan Plan: Will recommend the patient for skilled outpatient dysphagia therapy to address mild oropharyngeal dysphagia secondary to hx of PD and SCC of the tonsil w/ planned chemoradiation treatment. Pt is at risk for worsening dysphagia during and following treatment. Speech therapy POC to include further education and training re: oropharyngeal exercise program, diet texture recommendations, and compensatory strategies to decrease risk for aspiration. Additionally, will provide ongoing assessment of diet tolerance during and post chemoradiation treatment. POC to also include routine MBSS to monitor swallow function before and after his cancer treatment. Without skilled ST services, the patient is at increased risk for worsening dysphagia, aspiration, weight loss, dehydration, and malnutrition. Recommendations Treatment Warranted: Yes Treatment Warranted: Dysphagia Progress Prognosis: Good Frequency Frequency: 1x/Week Duration: 12 Months Goals that are Established Determination:: Goals will be added/modified as deemed necessary and appropriate. Therapy will be discontinued when results of re-evaluation indicate therapy is no longer needed or lack of progress has been documented. Goal #1-5 Goal #1: The patient will consume least restrictive diet textures without overt s/s of aspiration with minimal verbal cues for use of compensatory strategies to decrease risk for aspiration (Celiac's disease, GF food ONLY). Goal #2: The patient will complete an oropharyngeal exercise program during and post chemoradiation treatment independently to improve and maintain strength, ROM, and coordination of swallowing mechanism (Jaw stretch, Lisa, Effortful, Florencio, X10 repetitions, 3-5X daily). Goal #3: The patient will participate in ongoing education re: short-term and long-term effects of chemoradiation treatment on swallow function and management of symptoms that contribute to dysphagia. Goal #4: The patient will participate in instrumental assessment of swallow function to objectively assess swallow function and provide recommendations for safest, least restrictive diet and compensatory strategies to reduce risk for aspiration. Education Patient has Indicated that the Following The Patient has indicated that they have no educational or learning abilities that may effect their care.: No Patient Instruction Patient Education: Diagnosis, Treatment Plan, Goals, Safety Precautions, Diet Level and Home Exercise Program Other Education: Educated the patient in short-term and long-term effects of chemoradiation treatment that increase his risk for worsening dysphagia, such as mucositis, odynophagia, xerostomia, hypo/dysgeusia, disuse atrophy, and radiation fibrosis. Discussed consuming as much oral intake as he safely can and completing oropharyngeal exercises as much as able during treatment (EAT-RT) to promote best assistant terminal manager outcome of swallow function. Provided the patient a handout and demonstration of prophylactic oropharyngeal exercise program, as well as a jaw ROM exercise (Lisa, Effortful, Florencio, Jaw Stretch). The patient provided return demonstration with all exercises with minimal verbal cues. The patient would benefit from continued training to monitor proper execution of exercises and encourage strict adherence to exercise program. Person Taught: Patient and Family Teaching Method: Discussion, Demonstration, Handout and Teach Back Response to teaching: Return Demonstration, Verbalize Understanding and Reinforcement Needed
--- NOTE | 2025-09-14 08:33 | HP.SP.DC ---
ST Discharge Summary Discharged: Discharge: The patient had dysphagia evaluation 07/02/2025 for oropharyngeal dysphagia. 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 The patient participated in training in safe swallow strategies and oropharyngeal exercise program from 07/12/25--03/2025. Unfortunately, the patient was hospitalized 2X, most recent hospitalization was for PNA. The patient has been following w/ HH ST since recent acute stay for PNA 08/07/25-08/10/25. Will discharge pt from OP ST POC. Please re-consult for continued dysphagia therapy once the patient has completed HH ST POC.
== END 2025-07-29 19:00 | disposition home or self-care (01) ==
LOC: SP 09:30
PROVIDERS: PCP Family Medicine; Referring Provider Student in an Organized Health Care Education/Training Program; Visit Provider Student in an Organized Health Care Education/Training Program
DX: C10.9 Malignant neoplasm of oropharynx, unspecified (principal)
CPT/HCPCS: 92526; 92610

== ENCOUNTER 2025-07-30 16:15 | Inpatient (IN) | payer MEDICARE, SELFPAY ==
[2025-07-30] VITALS (13 sets, daily range): BP systolic 116–140; BP diastolic 56–86; PULSE 90–133; RESP 13–21; TEMP 37.4–38.9; O2SAT 91–99; BMI 24.3; BMI 24.4
--- NOTE | 2025-07-30 17:04 | ED.RN ---
reports weakness over last day to where pt unable to get up for today. on 4th round chemo/radiation. fever today 100.5. gets bolus tf for radiation and swallowing diff. seeing speech therapy for strengthening for aspiration risks.
[2025-07-30] MEDS: 0.9% Normal Saline (1000mL) 1,000 ML 999 ML IV ×3 (17:49→19:45)
[2025-07-30 18:01] LABS: Hematocrit 31.5 % (40-54); Hemoglobin 10.7 g/dL (13.0-16.5); Immature Granulocytes Count 0.000 X10^3/uL (0.0-0.0); Mean Corp Hgb Conc 34.0 g/dL (32-36); Mean Corpuscular Volume 87.7 fL (80-94); NRBC Flagged by Analyzer 0 % (0-5); POSITIVE COUNT YES; POSITIVE DIFFERENTIAL YES; POSITIVE MORPHOLOGY YES; RBC Distribution Width CV 13.6 % (11.6-14.6); RBC Distribution Width SD 43.3 fl (35.1-43.9); Red Blood Count 3.59 M/mm3 (4.6-6.2)
[2025-07-30 18:16] LABS: Differential Indicated SCAN CRITERIA MET; White Blood Count 1.0 K/mm3 (4.4-11.0)
--- NOTE | 2025-07-30 18:25 | RAD_ITS ---
PROCEDURE: RAD/Chest 1 View (Portable)
[2025-07-30] MEDS: Piperacil/Tazobactam 4.5 GM in 0.9% Normal Saline (100mL MB+) 100 ML IV (18:34)
--- NOTE | 2025-07-30 18:35 | EX.ED.DYSGE1 ---
HPI History of Present Illness Chief Complaint: Fever Detail of Chief Complaint: Throat cancer chemo Saturday radiation today sent for fever Informant: patient and spouse/S.O. Onset/Context/Timing Onset: Today Context: Sudden Onset Timing: Continuous Quality: Fever with chills Location: Not applicable Current Severity: unable to quantitate Worsened by: Patient received chemo on Saturday, August 01 and radiation today Relieved by: Nothing Associated Symptoms Associated Symptoms: Decreased awakeness Narrative Narrative: Patient is a 80-year-old gentleman. He is presently receiving chemo directed by Dr. Simone Collins and radiation therapy. He received both this week. 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 He has history of hyponatremia. He does have a percutaneous endoscopic gastrostomy tube for feeding because of difficulty swallowing. He also has a port right subclavian. Patient does not have many symptoms. Initially said he had dysuria and then he stated he did not. He does have a slight cough. The cough is nonproductive Prior similar symptoms: No Recent Illness/Hospitalization: Yes [facility] Medical History Encounter for education Wears glasses Cancer Alcohol use History of steroid therapy Thyroid disease Uses wheelchair Arthritis Prostate disease Low iron DVT (deep venous thrombosis) Back pain Migraine headache Parkinson's disease Orthostatic hypotension Syncope Dietary restriction History of diverticulitis Gastric reflux Chronic cough Former smoker History of pain when walking History of stress test History of echocardiogram Cardiology follow-up encounter Celiac disease Home Medications ?Medication ?Instructions ?Recorded ?Last Taken ?Type levothyroxine 50 mcg tablet 50 mcg PO QDAY 03/05/24 06/30/25 History omeprazole 40 mg capsule,delayed 40 mg PO QDAY 03/05/24 06/30/25 History release tamsulosin 0.4 mg capsule 0.4 mg PO BID 03/05/24 06/30/25 History prucalopride 2 mg tablet 2 mg PO DAILY 05/09/24 06/30/25 History (Motegrity) carbidopa ER 25 mg-levodopa 100 mg 1 tab PO .qid 06/10/25 06/30/25 History tablet,extended release fludrocortisone 0.1 mg tablet 0.1 mg PO QDAY 06/17/25 06/30/25 History lidocaine-prilocaine 2.5 %-2.5 % 1 applic topical ONCE PRN port 06/28/25 Unknown Rx topical cream access 30 days #30 grams ondansetron 8 mg disintegrating 8 mg PO Q8H PRN nausea and 06/28/25 Unknown Rx tablet vomiting #30 tabs tramadol 50 mg tablet 50 mg PO Q6H PRN pain #5 tabs 06/30/25 Unknown Rx MAGIC MOUTH WASH (BMX) 180 mL 15 ml PO .qid PRN pain #180 mL 07/07/25 Unknown Rx suspension sodium chloride 1,000 mg soluble 1,000 mg PO QD-QID PRN electrolyte 07/26/25 Unknown Rx tablet replenishment #30 tabs guaifenesin 100 mg/5 mL oral 200 mg (10 mL) PO Q4H PRN 07/28/25 Unknown Rx liquid (Guaifed (guaifenesin)) congestion #500 mL Allergy/AdvReac Type Severity Reaction Status Date / Time gluten Allergy Abd Verified 07/30/25 16:17 cramps/diarrhea aripiprazole AdvReac unknown Verified 07/30/25 16:17 haloperidol AdvReac unknown Verified 07/30/25 16:17 metoclopramide AdvReac unknown Verified 07/30/25 16:17 olanzapine AdvReac unknown Verified 07/30/25 16:17 prochlorperazine AdvReac unknown Verified 07/30/25 16:17 promethazine AdvReac unknown Verified 07/30/25 16:17 Family History Brother Cancer THROAT Mother Leukemia Sister Breast cancer Surgical History Hx of right cataract extraction Hx of left cataract extraction Hx of eye surgery History of hydrocelectomy Hx of hernia repair Hx of colonoscopy Social History household members: significant other housing: house current occupational status: retired Smoking Status: Former smoker alcohol intake: never substance use type: does not use ROS ROS ED Constitutional Constitutional ED: Reports chills, fever(s) and weight loss; Denies sweats Eyes Eyes: Denies blurry vision or change in vision ENT ENT ED: Denies ear pain, rhinorrhea or sore throat Cardiovascular Cardiovascular: Denies chest pain, orthopnea, palpitations or paroxysmal nocturnal dyspnea Respiratory/Chest Respiratory/Chest: Reports cough; Denies dyspnea, dyspnea on exertion, orthopnea or paroxysmal nocturnal dyspnea Gastrointestinal Gastrointestinal: Reports diarrhea and nausea; Denies abdominal pain or vomiting Genitourinary Genitourinary ED: Reports dysuria; Denies hematuria or urinary frequency Musculoskeletal Musculoskeletal: Denies arthralgias, back pain or myalgias Integumentary Reports other Details: Patient has rosacea ; Denies rash Neurologic Neurologic: Reports weakness; Denies headache(s) or paresthesias Hematologic/Lymphatic Hematologic/Lymphatic: Reports systems reviewed and no addt'l complaints, except as documented EXAM Physical Exam Const Vital Signs: 07/30/25 16:17 07/30/25 16:20 07/30/25 17:02 Temperature 100.2 F H 101.0 F H Temperature Source Oral Oral Pulse Rate 117 H 132 H Respiratory Rate 20 H 19 H Respiratory Effort Normal Non-Labored Respiratory Pattern Normal Blood Pressure 130/72 H 128/78 H Blood Pressure Mean 91 94 Pulse Ox 98 97 Oxygen Delivery Method Room Air Room Air 07/30/25 17:12 07/30/25 18:20 Temperature 100.7 F H Temperature Source Oral Pulse Rate 126 H Respiratory Rate 16 Respiratory Effort Respiratory Pattern Blood Pressure 133/81 H Blood Pressure Mean 98 Pulse Ox 98 Oxygen Delivery Method Room Air Room Air Positive well nourished and well developed Constitutional Narrative: Patient has rosacea. He appears ill. He is not alert. He does respond to questions asked. General Appearance ED: well developed and NAD HEENT Reports dry mucous membranes HEENT Narrative: HEENT is remarkable for rosacea otherwise negative. Mouth ED: Yes dry mucous membranes Mouth: dry mucous membranes Eyes PERRL and EOMs intact bilaterally General Eye ED: Negative for pale conjunctiva or scleral icterus Neck no lymphadenopathy, supple and no JVD Chest Wall inspection of chest normal and palpation of chest normal Resp normal respiratory effort and clear to auscultation bilaterally Cardio regular rhythm, S1 normal heart sound, S2 normal heart sound and no murmurs Rate: tachycardic GI normal to inspection, nondistended, normoactive bowel sounds, non-distended and no masses; Negative for hepatosplenomegaly Back/Spine no CVA tenderness Extremity normal to inspection Neuro oriented x3 and CN's II-XII intact bilaterally Sensorium / Orientation: alert Psych mental status grossly normal Skin no rashes or lesions noted, no wounds and skin turgor normal General Skin Exam: Negative for elasticity normal MDM MDM MDM Narrative Medical decision making narrative: Doubt patient is neutropenic since he had chemo 3 days ago and radiation today. He has no definitive source based on history and physical. Will treat for infection of unknown etiology. He was administered Zosyn and vancomycin. Reviewed Dr. Collins's notes. He is receiving radiation therapy by Dr. En Guerin. He had a radiation progress note dated July 28 that was reviewed. 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 History & Record Review Additional record(s) reviewed:: Prior outpatient record and Prior labs Lab Data Attestation: I reviewed the patient's lab results. Lab results narrative: Patient is neutropenic with an absolute neutrophil count of 450. H&H is 10 7 and 31.5. Platelet count is pending. Patient has low white counts dating back to June. H&H is essentially unchanged. Labs: Laboratory Results - last 24 hr 07/30/25 07/30/25 07/30/25 16:04 16:23 18:51 WBC 1.0 L* RBC 3.59 L Hgb 10.7 L Hct 31.5 L MCV 87.7 MCH 29.8 MCHC 34.0 RDW Std Deviation 43.3 RDW Coeff of [place] 13.6 Plt Count TNP MPV TNP Immature Gran % (Auto) 0.000 Neut % (Auto) 45.1 L Lymph % (Auto) 45.1 H [place] % (Auto) 7.8 Eos % (Auto) 0.0 Baso % (Auto) 2.0 H Absolute Neuts (auto) 0.5 L Absolute Lymphs (auto) 0.46 L Nucleated RBC % 0 Diff Path Review February foll PT 13.8 INR 1.0 APTT 30.3 Sodium 133 Potassium 3.4 Chloride 97 L Carbon Dioxide 25.3 Anion Gap 10 BUN 22 H Creatinine 0.81 Estim Creat Clear Calc 69.20 Est GFR (MDRD) Non-Af 88 BUN/Creatinine Ratio 26.7 H Glucose 110 H Lactic Acid < 1.0 Calcium 8.1 Total Bilirubin 0.66 AST 26 ALT 8 Alkaline Phosphatase 58 Total Protein 5.9 Albumin 3.4 Globulin 2.6 Albumin/Globulin Ratio 1.3 Urine Color Straw Urine Clarity Clear Urine pH 7.0 Ur Specific [place] 1.010 Urine Protein Negative Urine Glucose (UA) Normal Urine Ketones 5 H Urine Occult Blood 10 H Urine Nitrite Negative Urine Bilirubin Negative Urine Urobilinogen Normal Ur Leukocyte Esterase Negative Macro urine reveals ketones and occult blood. Negative leukoesterase and nitrites. Radiography Chest X-Ray - ED: 2 View and Read by ED Physician (There are no acute findings i.e. infiltrate, cephalization or effusion. Cardiac silhouette is normal. Cardiac size is normal. [place] is unremarkable. Osseous structures reveal no obvious acute abnormality.) Diagnostic Testing: Clinical Impression(s) from Imaging Studies Chest X-Ray 07/30/25 18:25 IMPRESSION: No Acute Findings. Reading Location: [facility] EKG Initial EKG: Attestation: I personally reviewed and interpreted this EKG as follows: Interpretation: Sinus Tachycardia (Rate is 129. There are premature atrial complexes noted. TN interval is 158 ms. Cures duration 74 ms. QT duration 116 ms. [place] is normal) Management Discussion w/another healthcare provider: Hospitalist (Spoke with the night hospitalist Dr. Henao who will admit patient to PCU.) Treatment and Re-Evaluation :: Patient received a total of 2 L of normal saline. He was treated with antibiotics. There is no obvious source. Will contact hospitalist for admission for neutropenia with fever Discharge Plan Dx/Rx/DC Orders Clinical Impression: Neutropenia with fever, Acute prerenal azotemia, Squamous cell carcinoma of oropharynx, 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, Encephalopathy acute, Parkinson's disease, Nondiabetic hyperglycemia Disposition Disposition: [facility]
[2025-07-30] MEDS: Vancomycin HCl 1,750 MG in 0.9% Normal Saline (500mL Bag) 500 ML 250 MG IV (18:37)
[2025-07-30 18:49] LABS: Prothrombin Time (Protime)PT. 13.8 SECONDS (11.7-14.9)
[2025-07-30 18:50] LABS: Partial Thromboplast Time 30.3 Seconds (24.1-36.2)
[2025-07-30 18:57] LABS: AST(SGOT) 26 U/L (<=37); Alanine Aminotransfer ALT/SGPT 8 U/L (<=46); Albumin, Serum 3.4 g/dL (3.4-4.8); Alkaline Phosphatase 58 U/L (40-129); Anion Gap 10 (5-15); BUN 22 mg/dL (4-19); BUN/Creat Ratio 26.7 RATIO (10-20); Calcium,Total 8.1 mg/dL (7.6-11.0); Carbon Dioxide 25.3 mmol/L (21.0-32.0); Chloride 97 mmol/L (98-108); Estimated Creatinine Clearance 69.20 ml/min (50-250); Globulin 2.6 g/dL (2.2-4.2); Glucose 110 mg/dL (70-99); Potassium 3.4 mmol/L (3.3-5.1)
[2025-07-30 19:14] LABS: Mucous, Urine 0 SEEN /hpf (<or=2+)
[2025-07-30 19:25] LABS: Color, Urine Straw (Yellow); Glucose, Dipstick Normal (Normal); Ketone-Dipstick 5 mg/dl (Negative); Leukocyte Esterase-Dipstick Negative /ul (Negative); Nitrite-Dipstick Negative (Negative); Occult Blood-Urine 10 /ul (Negative); Protein-Dipstick Negative (Negative); Specific Gravity, Urine 1.010 (1.002-1.030); Urine Bilirubin Dipstick Negative (Negative)
--- NOTE | 2025-07-30 19:39 | PCM.HP.STD ---
HPI - General General Date of Admission: 07/30/25 Date of Service: 07/30/25 Chief Complaint: fever HPI Narrative CARLOS BARCLAY, is a 80 M with a PMH as outlined including throat cancer, currently undergoing chemotherapy, who was admitted via the ED on 07/30/2025 with a complaint of fever. He had chemotherapy 4 days ago and radiation on the day of admission. He was also found to be confused. He denied any cough, chest pain, palpitations, dizziness, nausea, vomiting or any other symptoms. Review of systems was otherwise negative. Vitals in the ED were BP of 133/81, AL of 126, RR of 16 and temp of 100.7F. He was saturating at 98% on room air. CBC showed Hb of 10.7, wbc of 1, platelets were unrecordable. BMP showed sodium of 133, potassium of 3.4 and bicarb of 25.3. Cr is 0.81 and anion gap is 10. CXR showed no acute cardiopulmonary findings. EKG showed sinus tachycardia. Urinalysis showed no evidence of UTI. He is being admitted to be managed for febrile neutropenia in a patient with metastatic oropharyngeal cancer. [facility] Medical History Encounter for education Wears glasses Cancer Alcohol use History of steroid therapy Thyroid disease Uses wheelchair Arthritis Prostate disease Low iron DVT (deep venous thrombosis) Back pain Migraine headache Parkinson's disease Orthostatic hypotension Syncope Dietary restriction History of diverticulitis Gastric reflux Chronic cough Former smoker History of pain when walking History of stress test History of echocardiogram Cardiology follow-up encounter Celiac disease Home Medications ?Medication ?Instructions ?Recorded ?Last Taken ?Type levothyroxine 50 mcg tablet 50 mcg PO QDAY 03/05/24 06/30/25 History omeprazole 40 mg capsule,delayed 40 mg PO QDAY 03/05/24 06/30/25 History release tamsulosin 0.4 mg capsule 0.4 mg PO BID 03/05/24 06/30/25 History prucalopride 2 mg tablet 2 mg PO DAILY 05/09/24 06/30/25 History (Motegrity) carbidopa ER 25 mg-levodopa 100 mg 1 tab PO .qid 06/10/25 06/30/25 History tablet,extended release fludrocortisone 0.1 mg tablet 0.1 mg PO QDAY 06/17/25 06/30/25 History lidocaine-prilocaine 2.5 %-2.5 % 1 applic topical ONCE PRN port 06/28/25 Unknown Rx topical cream access 30 days #30 grams ondansetron 8 mg disintegrating 8 mg PO Q8H PRN nausea and 06/28/25 Unknown Rx tablet vomiting #30 tabs MAGIC MOUTH WASH (BMX) 180 mL 15 ml PO .qid PRN pain #180 mL 07/07/25 Unknown Rx suspension sodium chloride 1,000 mg soluble 1,000 mg PO QD-QID PRN electrolyte 07/26/25 Unknown Rx tablet replenishment #30 tabs guaifenesin 100 mg/5 mL oral 200 mg (10 mL) PO Q4H PRN 07/28/25 Unknown Rx liquid (Guaifed (guaifenesin)) congestion #500 mL sennosides 8.6 mg tablet (Shari-rocco) 8.6 mg PO PRN 07/30/25 Unknown History Allergy/AdvReac Type Severity Reaction Status Date / Time gluten Allergy Abd Verified 07/30/25 16:17 cramps/diarrhea aripiprazole AdvReac unknown Verified 07/30/25 16:17 haloperidol AdvReac unknown Verified 07/30/25 16:17 metoclopramide AdvReac unknown Verified 07/30/25 16:17 olanzapine AdvReac unknown Verified 07/30/25 16:17 prochlorperazine AdvReac unknown Verified 07/30/25 16:17 promethazine AdvReac unknown Verified 07/30/25 16:17 Family History Brother Cancer THROAT Mother Leukemia Sister Breast cancer Surgical History Hx of right cataract extraction Hx of left cataract extraction Hx of eye surgery History of hydrocelectomy Hx of hernia repair Hx of colonoscopy Social History household members: significant other housing: house current occupational status: retired Smoking Status: Former smoker alcohol intake: never substance use type: does not use ROS Constitutional Constitutional: Reports chills, fatigue, fever(s), malaise and weakness; Denies anorexia Eyes Eyes: Denies change in vision ENT HEENT: Denies dysphagia, headache(s) or sore throat Cardiovascular Cardiovascular: Reports rapid heart rate; Denies chest pain, dyspnea on exertion, edema, lightheadedness, orthopnea, palpitations or syncope Respiratory/Chest Respiratory/Chest: Denies cough, dyspnea, productive cough, shortness of breath at rest or shortness of breath with exertion Gastrointestinal Gastrointestinal: Denies abdominal pain, nausea or vomiting Genitourinary Genitourinary: Denies dysuria Neurologic Neurologic: Reports confusion; Denies dizziness, focal weakness, headache(s), numbness or seizures Psychiatric Psychiatric: Denies anxiety or depression Vital Signs Vital Signs Vital Signs: 07/30/25 16:17 07/30/25 16:20 07/30/25 17:02 Temperature 100.2 F H 101.0 F H Temperature Source Oral Oral Pulse Rate 117 H 132 H Respiratory Rate 20 H 19 H Respiratory Effort Normal Non-Labored Respiratory Pattern Normal Blood Pressure 130/72 H 128/78 H Blood Pressure Mean 91 94 Pulse Ox 98 97 Oxygen Delivery Method Room Air Room Air 07/30/25 17:12 07/30/25 18:20 Temperature 100.7 F H Temperature Source Oral Pulse Rate 126 H Respiratory Rate 16 Respiratory Effort Respiratory Pattern Blood Pressure 133/81 H Blood Pressure Mean 98 Pulse Ox 98 Oxygen Delivery Method Room Air Room Air Weight Weight: 159 lb 9.835 oz Body Mass Index (BMI) 24.3 Physical Exam Const alert, no apparent distress and average body habitus Constitutional Narrative: looks very frail and weak General Appearance: cooperative HEENT normocephalic and head/scalp atraumatic HEENT Narrative: dry oral mucosa, has some superficial ulcerations on lips Eyes EOMs intact bilaterally and conjunctivae normal Neck supple and no JVD Resp Resp Narrative: mildly diminished breath sounds bibasally, no wheezes or crackles. On 2L of oxygen by nasal canula Cardio regular rhythm, S1 normal heart sound and S2 normal heart sound Cardio Narrative: sinus tachycardia GI normal to inspection, nondistended, normoactive bowel sounds, soft to palpation, non-tender and non-distended Extremity normal to inspection, full ROM and no clubbing, cyanosis or edema Neuro CN's II-XII intact bilaterally and moves all extremities Neuro Narrative: very frail and weak Sensorium / Orientation: awake and alert Results Lab / Micro Data 07/31/25 03:45 07/31/25 03:45 Labs: Laboratory Results - last 24 hr 07/30/25 16:04: WBC 1.0 L*, RBC 3.59 L, Hgb 10.7 L, Hct 31.5 L, MCV 87.7, MCH 29.8, MCHC 34.0, RDW Std Deviation 43.3, RDW Coeff of Macho 13.6, Plt Count TNP, MPV TNP, Immature Gran % (Auto) 0.000, Neut % (Auto) 45.1 L, Lymph % (Auto) 45.1 H, [place] % (Auto) 7.8, Eos % (Auto) 0.0, Baso % (Auto) 2.0 H, Absolute Neuts (auto) 0.5 L, Absolute Lymphs (auto) 0.46 L, Nucleated RBC % 0, Diff Path Review February, PT 13.8, INR 1.0, APTT 30.3, Sodium 133, Potassium 3.4, Chloride 97 L, Carbon Dioxide 25.3, Anion Gap 10, BUN 22 H, Creatinine 0.81, Estim Creat Clear Calc 69.20, Est GFR (MDRD) Non-Af 88, BUN/Creatinine Ratio 26.7 H, Glucose 110 H, Calcium 8.1, Total Bilirubin 0.66, AST 26, ALT 8, Alkaline Phosphatase 58, Total Protein 5.9, Albumin 3.4, Globulin 2.6, Albumin/Globulin Ratio 1.3 07/30/25 16:23: Lactic Acid < 1.0 07/30/25 18:51: Urine Color Straw, Urine Clarity Clear, Urine pH 7.0, Ur Specific [place] 1.010, Urine Protein Negative, Urine Glucose (UA) Normal, Urine Ketones 5 H, Urine Occult Blood 10 H, Urine Nitrite Negative, Urine Bilirubin Negative, Urine Urobilinogen Normal, Ur Leukocyte Esterase Negative Imaging Radiology Impression Chest X-Ray 07/30/25 18:25 IMPRESSION: No Acute Findings. Reading Location: [facility] Assessment & Plan Assessment/Plan (1) Encephalopathy acute: (2) Neutropenia with fever: PLAN: Plan #Acute febrile neutropenia in the setting of metastatic oropharyngeal cancer Admit to ICU due to concerns for sepsis and rapid deterioration in light of his immunocompromised state. Admitted with a complaint of fever. He had radiation today and chemotherapy 4 days ago. Denies any urinary symptoms or any respiratory symptoms or abdominal symptoms. Patient is tachycardic with heart rate of 131. Lactic acid is less than 1. Hydrate aggressively with IV fluids. Blood and urine cultures obtained. Started on IV vancomycin and Zosyn. Neutropenic precautions. consult critical care. #PE D dimer ordered due to tachcyardia. D dimer was markedly elevated at ~ 7, so stat CTA chest done which showed pulmonary embolism of the right lower lobe subsegmenal branches. patient started on therapeutic lovenox. #parkinson's disease with Dementia: On levodopa carbidopa #GERD: PPI #Hypothyroidism: On Synthroid #BPH: On Flomax DVT prophylaxis: not indicated as patient started on therapeutic lovenox for newly diagnosed PE CODE STATUS:full code Patient and counseled extensively about different types of CODE STATUS including full code, DNR CCA and DNR CCA. Patients elects for him to be full code. Total [id number] time 17 minutes. Charges/Coding Visit Charges Inpatient E&M: 26805 Init Hosp L3 Procedures Hospitalists Procedures: 47347 Advncd Care Plan 30 Min
--- NOTE | 2025-07-30 20:55 | PCM.RX.CS ---
Consult Antibiotic Management Pharmacy has been consulted to manage selected antibiotic: Vancomycin Type of Intervention Type of Consult: New start Suspected Infection Suspected Infection: Other (ENCEPHALAPATHY) Prior Doses of Antibiotics Prior Doses of Antibiotics Received/Current Regimen: 1750 MG X1 750 MG Q12H Labs Labs: Sodium 133 mmol/L (133-145) 07/30/25 16:04 Potassium 3.4 mmol/L (3.3-5.1) 07/30/25 16:04 Chloride 97 mmol/L (98-108) L 07/30/25 16:04 Carbon Dioxide 25.3 mmol/L (21.0-32.0) 07/30/25 16:04 Anion Gap 10 (5-15) 07/30/25 16:04 BUN 22 mg/dL (4-19) H 07/30/25 16:04 Creatinine 0.81 mg/dL (0.70-1.20) 07/30/25 16:04 Est GFR (MDRD) Non-Af 88 (>60) 07/30/25 16:04 BUN/Creatinine Ratio 26.7 RATIO (10-20) H 07/30/25 16:04 Glucose 110 mg/dL (70-99) H 07/30/25 16:04 Dosing Weight Weight used for dosin.8 kg Estimated Creatinine Clearance Estimated Creatinine Clearance: 69.2 ML/RI Pharmacy Plan for Drug Dosing Pharmacy Plan for Drug Dosing: NEW START IV VANCOMYCIN Consulting Physician: Aileen Indication: Encephalopathy Goal Trough: 15-20 SrCr: 0.81 mg/dL CrCl: 69.2 ml/min Vancomycin Dose: 1x 1750 mg, and 750 mg q12h Pending Level:08/01/2025 @0600 Pharmacy Service will continue to monitor and adjust dosing as required. Follow-Up Labs Follow-Up Labs: Trough: Vancomycin Date/Time Labs Ordered Labs to be done on [date and time ordered]: 08/01/2025 @0600
[2025-07-30] MEDS: 0.9% Saline Lock 10 ML Syringe IV (21:01)
[2025-07-30] MEDS: 0.9% Normal Saline (1000mL) 1,000 ML 150 ML IV (21:01)
[2025-07-30 21:03] LABS: Red Blood Cells-Urine 0-5 SEEN /hpf (0-5); Squamous Epithelial Cells - UA 0-5 SEEN /hpf (0-5)
[2025-07-30] MEDS: TBO-FILGRASTIM 300 MCG/0.5 ML ML SC (21:44)
[2025-07-30 22:06] LABS: D-Dimer Quantitative (DVT/PE) 7.44 FEU/ug/m (0.27-0.49)
--- NOTE | 2025-07-30 22:16 | CT_ITS ---
PROCEDURE: CT/CTA Chest W/WO Contrast
[2025-07-31] VITALS (25 sets, daily range): BP systolic 105–133; BP diastolic 55–81; PULSE 75–116; RESP 11–18; TEMP 36.2–37.8; O2SAT 92–99; BMI 24.3
[2025-07-31] MEDS: 0.9% Saline Lock 10 ML Syringe IV (01:46)
--- NOTE | 2025-07-31 01:50 | NURSING ---
Noticed patient had taken off telemetry leads, upon entering the room patient had deaccessed port, pulled off tele leads, and was pulling at his evans. Patient asking where he was and where his was. Port reaccessed with a new port access kit. Patient reoriented and repositioned in bed.
--- NOTE | 2025-07-31 03:28 | PCMCONS.TICU ---
HPI Consult Data Date of Consult: 07/31/25 HPI Narrative HPI Narrative: Mr. 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 He received chemotherapy and radiation four days ago and presented to the ED with confusion, tachycardia, and fever. Initial evaluation showed: Hemoglobin 10.7 g/dL, hematocrit 31.5%, WBC 1.0 ?10?/L with ANC 0.5, Platelets unmeasurable, Anion gap 10, UA negative, CXR without acute findings. He was diagnosed with acute febrile neutropenia secondary to recent chemotherapy. Empiric vancomycin and piperacillin-tazobactam were started, and blood cultures obtained. He received 3 L of IV fluids for initial tachycardia and mild hypotension. During evaluation, D-dimer was markedly elevated CTA chest revealed acute segmental pulmonary emboli in the right lower lobe. Therapeutic enoxaparin was initiated. He also received granulocyte colony-stimulating factor for neutropenia. He subsequently became briefly agitated/confused, removed his port access, which was re-accessed successfully. [facility] Medical History Encounter for education Wears glasses Cancer Alcohol use History of steroid therapy Thyroid disease Uses wheelchair Arthritis Prostate disease Low iron DVT (deep venous thrombosis) Back pain Migraine headache Parkinson's disease Orthostatic hypotension Syncope Dietary restriction History of diverticulitis Gastric reflux Chronic cough Former smoker History of pain when walking History of stress test History of echocardiogram Cardiology follow-up encounter Celiac disease Home Medications ?Medication ?Instructions ?Recorded ?Last Taken ?Type levothyroxine 50 mcg tablet 50 mcg PO QDAY 03/05/24 06/30/25 History omeprazole 40 mg capsule,delayed 40 mg PO QDAY 03/05/24 06/30/25 History release tamsulosin 0.4 mg capsule 0.4 mg PO BID 03/05/24 06/30/25 History prucalopride 2 mg tablet 2 mg PO DAILY 05/09/24 06/30/25 History (Motegrity) carbidopa ER 25 mg-levodopa 100 mg 1 tab PO .qid 06/10/25 06/30/25 History tablet,extended release fludrocortisone 0.1 mg tablet 0.1 mg PO QDAY 06/17/25 06/30/25 History lidocaine-prilocaine 2.5 %-2.5 % 1 applic topical ONCE PRN port 06/28/25 Unknown Rx topical cream access 30 days #30 grams ondansetron 8 mg disintegrating 8 mg PO Q8H PRN nausea and 06/28/25 Unknown Rx tablet vomiting #30 tabs MAGIC MOUTH WASH (BMX) 180 mL 15 ml PO .qid PRN pain #180 mL 07/07/25 Unknown Rx suspension sodium chloride 1,000 mg soluble 1,000 mg PO QD-QID PRN electrolyte 07/26/25 Unknown Rx tablet replenishment #30 tabs guaifenesin 100 mg/5 mL oral 200 mg (10 mL) PO Q4H PRN 07/28/25 Unknown Rx liquid (Guaifed (guaifenesin)) congestion #500 mL sennosides 8.6 mg tablet (Shari-rocco) 8.6 mg PO PRN 07/30/25 Unknown History Allergy/AdvReac Type Severity Reaction Status Date / Time gluten Allergy Abd Verified 07/30/25 16:17 cramps/diarrhea aripiprazole AdvReac unknown Verified 07/30/25 16:17 haloperidol AdvReac unknown Verified 07/30/25 16:17 metoclopramide AdvReac unknown Verified 07/30/25 16:17 olanzapine AdvReac unknown Verified 07/30/25 16:17 prochlorperazine AdvReac unknown Verified 07/30/25 16:17 promethazine AdvReac unknown Verified 07/30/25 16:17 Family History Brother Cancer THROAT Mother Leukemia Sister Breast cancer Surgical History Hx of right cataract extraction Hx of left cataract extraction Hx of eye surgery History of hydrocelectomy Hx of hernia repair Hx of colonoscopy Social History household members: significant other housing: house current occupational status: retired Smoking Status: Former smoker alcohol intake: never substance use type: does not use ROS ROS Narrative General: Fatigue, confusion, fever. HEENT: History of throat cancer; no active bleeding or dysphagia reported. Cardiac: No chest pain or syncope. Respiratory: Mild dyspnea; stable on 2 L O2; no cough or hemoptysis. GI: No abdominal pain, nausea, or diarrhea reported. : No dysuria; urinalysis negative. Neuro: Confusion, brief agitation; no focal deficits. Skin: No rash or lesions. Endocrine: Hypothyroid, possibly adrenally insufficient. Objective Data Objective Data Vital Signs: Vital Signs Last response Temperature 36.4 C L 07/31/25 03:00 Temperature Source Core 07/31/25 03:00 Pulse Rate 76 07/31/25 03:00 Pulse Strength Weak (1+) 07/30/25 21:11 Respiratory Rate 11 L 07/31/25 03:00 Respiratory Effort Normal, Non-Labored 07/31/25 00:00 Respiratory Depth Normal 07/31/25 00:00 Respiratory Pattern Normal 07/31/25 00:00 Blood Pressure 119/72 07/31/25 03:00 Blood Pressure Mean 87 07/31/25 03:00 Blood Pressure Source Monitor 07/31/25 03:00 Blood Pressure Position Semi-Fowlers 07/31/25 03:00 Blood Pressure Location Right Arm 07/31/25 03:00 Pulse Ox 99 07/31/25 03:00 Oxygen Delivery Method Nasal Cannula 07/31/25 03:00 Oxygen Flow Rate (L/min) 2 07/31/25 03:00 I&O: I&O Last 24 Hours 07/30/25 07/30/25 07/31/25 11:59 23:59 11:59 Intake Total 3534.25 / 3584.25 50 / 50 Output Total 350 / 1900 1550 / 1550 Balance 3184.25 / 1684.25 -1500 / -1500 I&O: Total Stay 07/30/25 16:15 thru 07/31/25 00:00 Intake Total 3584.25 Output Total 1900 Balance 1684.25 Current Meds Ordered / Administered: Current meds ordered / Administered Generic Name Dose Route Start Last Admin Trade Name Freq PRN Reason Stop Dose Admin Carbidopa/Levodopa 1 tablet 07/31/25 00:00 07/30/25 23:55 Carbidopa/Levodopa 25/100 Tablet PO 1 tablet 0000,0600,1200,2000 KRISHAN Administration Clarify Med Order 1 each 07/30/25 21:45 07/31/25 00:03 Clarify Order NOTE Not Given CLARIFY KRISHAN Enoxaparin Sodium 70 mg 07/31/25 01:00 07/31/25 01:46 Enoxaparin 80 Mg/0.8 Ml Syringe SC 70 mg Q12@0600,1800 [facility] Administration Fludrocortisone Acetate 0.1 mg 07/30/25 20:30 07/30/25 21:27 Fludrocortisone Acetate 0.1 Mg Tablet PO 0.1 mg DAILY [facility] Administration Guaifenesin 10 ml 07/30/25 20:30 Guaifenesin 10 Ml Udc (200mg/10ml) PO Q4H PRN CONGESTION Sodium Chloride 1,000 mls @ 150 mls/hr 07/30/25 20:30 07/30/25 21:01 IV 07/31/25 09:49 150 mls/hr .Q6H40M KRISHAN Administration Vancomycin IV-PHARMACY TO DOSE 500 mls @ 250 mls/hr 07/30/25 20:30 1 each/ Sodium Chloride IV X1 PRN Rx to Dose Protocol Piperacillin Sod/Tazobactam 50 mls @ 12.5 mls/hr 07/31/25 06:00 Sod 3.375 gm/ Sodium Chloride IV Q8 KRISHAN Sodium Chloride 250 mls @ 15 mls/hr 07/30/25 20:31 IV .[id number] PRN Saline Flush Sodium Chloride 250 mls @ 15 mls/hr 07/30/25 20:31 IV .[id number] PRN Additional IVPB Infusion Vancomycin HCl 750 mg/ Sodium 265 mls @ 250 mls/hr 07/31/25 06:30 Chloride IV Q12H [facility] Levothyroxine Sodium 50 mcg 07/31/25 06:00 Levothyroxine 50 Mcg Tablet PO DAILY@0600 [facility] Lidocaine/Diphenhydr/Alum/Mg/Simeth 15 ml 07/30/25 20:44 Bmx Liquid 180 Ml PO 4X/DAY PRN PRN Pain Score 1-10 Lidocaine/Prilocaine 1 gm 07/30/25 20:42 Lidocaine/Prilocaine Hcl 5 Gm Tube TOPICAL X1 PRN PORT ACCESS Protocol Nitroglycerin 0.4 mg 07/30/25 20:30 Nitroglycerin (Inpatient Use) 0.4 Mg Tab.Subl SL Q5M PRN CARDIAC/CHEST PAIN Non-Formulary Medication 2 mg 07/31/25 10:00 Prucalopride [Motegrity] PO DAILY [facility] Ondansetron HCl 4 mg 07/30/25 20:30 Ondansetron 4 Mg/2 Ml Vial IV Q8H PRN PRN NAUSEA/VOMITING Pantoprazole Sodium 40 mg 07/30/25 20:30 07/30/25 21:26 Pantoprazole Sodium 40 Mg Tablet PO 40 mg DAILY KRISHAN Administration Senna 1 tablet 07/30/25 20:30 Senna Tablet PO DAILY PRN PRN Constipation Sodium Chloride 1 gm 07/30/25 20:30 Sodium Chloride 1 Gm Tablet PO 4X/DAY PRN PRN electrolyte replenishment Sodium Chloride 10 - 40 ml 07/30/25 20:31 07/31/25 01:46 0.9% Saline Lock 10 Ml Syringe IV 10 ml UD PRN Administration SALINE FLUSH Tamsulosin HCl 0.4 mg 07/30/25 22:00 07/30/25 20:53 Tamsulosin Hcl 0.4 Mg Capsule PO Not Given BID [facility] Vancomycin Protocol 1 lab 08/01/25 05:00 Vancomycin Trough/Random Due MC 08/01/25 07:00 DAILY [facility] Physical Exam Narrative General: Elderly, frail male; mildly confused but redirectable; non-toxic. HEENT: Mucous membranes moist; post-radiation neck changes likely. CV: Regular rate and rhythm; no murmurs. Resp: Clear to auscultation; non-labored on 2 L O2 Abdomen: Soft, non-tender, non-distended. Extremities: No edema or cyanosis. Neuro: Awake, oriented ?2, mild confusion; moves all extremities. Skin: Warm, dry; no rash. Access: Port-a-cath re-accessed; site clean. Lab / Micro Data 07/31/25 03:45 07/31/25 03:45 Labs: Laboratory Results - last 24 hr 07/30/25 16:04: WBC 1.0 L*, RBC 3.59 L, Hgb 10.7 L, Hct 31.5 L, MCV 87.7, MCH 29.8, MCHC 34.0, RDW Std Deviation 43.3, RDW Coeff of Macho 13.6, Plt Count TNP, MPV TNP, Immature Gran % (Auto) 0.000, Neut % (Auto) 45.1 L, Lymph % (Auto) 45.1 H, [place] % (Auto) 7.8, Eos % (Auto) 0.0, Baso % (Auto) 2.0 H, Absolute Neuts (auto) 0.5 L, Absolute Lymphs (auto) 0.46 L, Nucleated RBC % 0, Diff Path Review February, PT 13.8, INR 1.0, APTT 30.3, Sodium 133, Potassium 3.4, Chloride 97 L, Carbon Dioxide 25.3, Anion Gap 10, BUN 22 H, Creatinine 0.81, Estim Creat Clear Calc 69.20, Est GFR (MDRD) Non-Af 88, BUN/Creatinine Ratio 26.7 H, Glucose 110 H, Calcium 8.1, Total Bilirubin 0.66, AST 26, ALT 8, Alkaline Phosphatase 58, Total Protein 5.9, Albumin 3.4, Globulin 2.6, Albumin/Globulin Ratio 1.3 07/30/25 16:23: Lactic Acid < 1.0 07/30/25 18:51: Urine Color Straw, Urine Clarity Clear, Urine pH 7.0, Ur Specific [place] 1.010, Urine Protein Negative, Urine Glucose (UA) Normal, Urine Ketones 5 H, Urine Occult Blood 10 H, Urine Nitrite Negative, Urine Bilirubin Negative, Urine Urobilinogen Normal, Ur Leukocyte Esterase Negative, Urine RBC 0-5 SEEN, Urine WBC 0-5 SEEN, Ur Squamous Epith Cells 0-5 SEEN, Urine Bacteria 0 SEEN, Urine Mucus 0 SEEN 07/30/25 20:44: D-Dimer Quant (PE/DVT) 7.44 H* 07/30/25 20:54: MRSA (PCR) Negative Micro: Microbiology 07/30/25 21:57 Mucosa - Nasopharyngeal Respiratory Panel (PCR) - Final Imaging Radiology Impression Chest X-Ray 07/30/25 18:25 IMPRESSION: No Acute Findings. Reading Location: [facility] Chest CTA 07/30/25 22:16 IMPRESSION: Right lower lobe segmental branches pulmonary emboli. No evidence of large central or massive pulmonary embolus. No evidence of cardiac strain. Minimal bilateral pleural effusions. Passive atelectatic airspace disease in the lower lobes. Mild interstitial pulmonary congestion. Right Port-A-Cath is in good position. Mild cardiomegaly. Small sliding hiatal hernia. Left renal simple cyst measuring 3.5 cm. Chronic deformity of the posterior arch of the left 11th rib. I discussed the findings with RN Faby Natarajan in the ICU at 12:33 a.m. EST. Reading Location: [place] [id number] Assessment and Plan . Assessment and plan: Febrile Neutropenia secondary to chemotherapy Continue broad-spectrum coverage: Vancomycin + Piperacillin-Tazobactam per ID/oncology guidance. Continue Granix daily until ANC > 1.0 ?10?/L. Blood cultures ?2, urine culture, CXR already obtained. Monitor vitals q2h, fever curve, and hemodynamics. Maintain neutropenic precautions. Daily CBC and BMP. Avoid rectal temps, IM injections. Acute Pulmonary Embolism Continue therapeutic enoxaparin Monitor for bleeding Consider IVC filter if platelets drop <30k or if bleeding risk high. Chemotherapy-Induced Cytopenias Monitor CBC daily; transfuse: PRBC if Hgb < 7 g/dL, Platelets if < 10k Coordinate with oncology for chemotherapy hold. Metastatic Oropharyngeal Cancer Continue chemoradiation per oncologic schedule if stabilized. Oncology consult for timing of next cycle and prognosis. Hypothyroidism / Possible Adrenal Insufficiency Continue levothyroxine. Continue fludrocortisone; consider hydrocortisone stress dosing if hypotensive or septic physiology develops. Dementia / Parkinsonism Continue carbidopa-levodopa. Supportive environment; minimize restraints, sedatives. GERD Continue PPI; avoid aspiration risk. Fluid and Electrolyte Management IVF as needed; now euvolemic after 3 L boluses. Strict I/O; daily weights. DVT/GI Prophylaxis Therapeutic anticoagulation already in place. PPI for GI protection. Disposition Continue ICU for close monitoring of neutropenic fever, PE anticoagulation, and cytopenia management.
[2025-07-31 03:57] LABS: Hematocrit 26.5 % (40-54); Hemoglobin 9.0 g/dL (13.0-16.5); Immature Granulocytes Count 0.010 X10^3/uL (0.0-0.0); Mean Corp Hgb Conc 34.0 g/dL (32-36); Mean Corpuscular Volume 87.2 fL (80-94); Mean Platelet Vol. 9.9 fl (6.2-12.0); NRBC Flagged by Analyzer 0 % (0-5); POSITIVE COUNT YES; POSITIVE DIFFERENTIAL YES; POSITIVE MORPHOLOGY YES; Platelet Count 129 K/mm3 (150-450); RBC Distribution Width CV 13.6 % (11.6-14.6); RBC Distribution Width SD 42.4 fl (35.1-43.9); Red Blood Count 3.04 M/mm3 (4.6-6.2)
[2025-07-31 04:02] LABS: Differential Indicated SCAN CRITERIA MET; White Blood Count 1.4 K/mm3 (4.4-11.0)
[2025-07-31] MEDS: 0.9% Normal Saline (1000mL) 1,000 ML 150 ML IV (04:08)
[2025-07-31 04:15] LABS: Anion Gap 9 (5-15); BUN 12 mg/dL (4-19); BUN/Creat Ratio 17.8 RATIO (10-20); Calcium,Total 6.9 mg/dL (7.6-11.0); Carbon Dioxide 23.9 mmol/L (21.0-32.0); Chloride 105 mmol/L (98-108); Estimated Creatinine Clearance 70.06 ml/min (50-250); Glucose 110 mg/dL (70-99); Potassium 3.0 mmol/L (3.3-5.1)
[2025-07-31 04:50] LABS: Differential Comment SCANNED
[2025-07-31 04:51] LABS: Burr Cells 1+
[2025-07-31] MEDS: Piperacil/Tazobactam 3.375 GM in 0.9% Normal Saline (50mL MB+) 50 ML IV ×3 (05:38→22:11)
[2025-07-31] MEDS: Vancomycin HCl 750 MG in 0.9% Normal Saline (250mL Bag) 250 ML 250 MG IV ×2 (06:06→20:06)
--- NOTE | 2025-07-31 08:30 | PN.HOSP_ITS ---
Reason for Visit
--- NOTE | 2025-07-31 08:30 | PCM.PN.HOSP ---
Reason for Visit Chief Complaint: fever Objective Data Objective Data Vital Signs: Vital Signs Temp Pulse Resp BP Pulse Ox O2 Del Method O2 Flow Rate 97.5 F L 97 17 110/59 L 97 Nasal Cannula 2 07/31/25 07:00 07/31/25 07:00 07/31/25 07:00 07/31/25 07:00 07/31/25 07:00 07/31/25 07:00 07/31/25 07:00 Oxygen Flow Rate (L/min) 2 Oxygen Delivery Method Nasal Cannula Weight: 160 lb 11.472 oz Body Mass Index (BMI) 24.3 Intake & Output: Intake and Output for Last 24 Hours 07/29/25 07/30/25 07/31/25 23:59 23:59 23:59 Intake Total 3534.25 / 3584.25 1495 / 1495 Output Total 350 / 1900 1875 / 1875 Balance 3184.25 / 1684.25 -380 / -380 Lab / Micro Data 07/31/25 03:45 07/31/25 03:45 Labs: Laboratory Results - last 24 hr 07/30/25 16:04: WBC 1.0 L*, RBC 3.59 L, Hgb 10.7 L, Hct 31.5 L, MCV 87.7, MCH 29.8, MCHC 34.0, RDW Std Deviation 43.3, RDW Coeff of Macho 13.6, Plt Count TNP, MPV TNP, Immature Gran % (Auto) 0.000, Neut % (Auto) 45.1 L, Lymph % (Auto) 45.1 H, [place] % (Auto) 7.8, Eos % (Auto) 0.0, Baso % (Auto) 2.0 H, Absolute Neuts (auto) 0.5 L, Absolute Lymphs (auto) 0.46 L, Nucleated RBC % 0, Diff Path Review February, PT 13.8, INR 1.0, APTT 30.3, Sodium 133, Potassium 3.4, Chloride 97 L, Carbon Dioxide 25.3, Anion Gap 10, BUN 22 H, Creatinine 0.81, Estim Creat Clear Calc 69.20, Est GFR (MDRD) Non-Af 88, BUN/Creatinine Ratio 26.7 H, Glucose 110 H, Calcium 8.1, Total Bilirubin 0.66, AST 26, ALT 8, Alkaline Phosphatase 58, Total Protein 5.9, Albumin 3.4, Globulin 2.6, Albumin/Globulin Ratio 1.3 07/30/25 16:23: Lactic Acid < 1.0 07/30/25 18:51: Urine Color Straw, Urine Clarity Clear, Urine pH 7.0, Ur Specific [place] 1.010, Urine Protein Negative, Urine Glucose (UA) Normal, Urine Ketones 5 H, Urine Occult Blood 10 H, Urine Nitrite Negative, Urine Bilirubin Negative, Urine Urobilinogen Normal, Ur Leukocyte Esterase Negative, Urine RBC 0-5 SEEN, Urine WBC 0-5 SEEN, Ur Squamous Epith Cells 0-5 SEEN, Urine Bacteria 0 SEEN, Urine Mucus 0 SEEN 07/30/25 20:44: D-Dimer Quant (PE/DVT) 7.44 H* 07/30/25 20:54: MRSA (PCR) Negative 07/31/25 03:45: WBC 1.4 L*, RBC 3.04 L, Hgb 9.0 L, Hct 26.5 L, MCV 87.2, MCH 29.6, MCHC 34.0, RDW Std Deviation 42.4, RDW Coeff of Macho 13.6, Plt Count 129 L, MPV 9.9, Immature Gran % (Auto) 0.700, Neut % (Auto) 68.4, Lymph % (Auto) 19.9, [place] % (Auto) 8.1, Eos % (Auto) 0.7, Baso % (Auto) 2.2 H, Absolute Neuts (auto) 0.9 L, Absolute Lymphs (auto) 0.27 L, Nucleated RBC % 0, Differential Comment SCANNED, [place] Cells 1+, Sodium 138, Potassium 3.0 L, Chloride 105, Carbon Dioxide 23.9, Anion Gap 9, BUN 12, Creatinine 0.70, Estim Creat Clear Calc 70.06, Est GFR (MDRD) Non-Af 93, BUN/Creatinine Ratio 17.8, Glucose 110 H, Calcium 6.9 L Micro: Microbiology 07/30/25 21:57 Mucosa - Nasopharyngeal Respiratory Panel (PCR) - Final Radiography Diagnostic Testing: Radiology Impression Chest X-Ray 07/30/25 18:25 IMPRESSION: No Acute Findings. Reading Location: [facility] Chest CTA 07/30/25 22:16 IMPRESSION: Right lower lobe segmental branches pulmonary emboli. No evidence of large central or massive pulmonary embolus. No evidence of cardiac strain. Minimal bilateral pleural effusions. Passive atelectatic airspace disease in the lower lobes. Mild interstitial pulmonary congestion. Right Port-A-Cath is in good position. Mild cardiomegaly. Small sliding hiatal hernia. Left renal simple cyst measuring 3.5 cm. Chronic deformity of the posterior arch of the left 11th rib. I discussed the findings with NIGEL Natarajan in the ICU at 12:33 a.m. EST. Reading Location: [place] [address] Physical Exam Narrative Seen and examined Patient has swelling over oropharyngeal and throat region. On tube feed through PEG tube Physical exam General: Alert, Oriented x3, Cooperative HEENT: Atraumatic, PERRLA, EOMI, Normocephalic. Oral: Yellowish patch over left lateral margin of anterior tongue. Thick saliva/crusted lesions around lips. Oral gingivitis/soreness Neck: Supple, No JVD, Negative Carotid Bruits Chest wall/Lungs: Air entry diminished in bilateral lung bases. No crepitation/rhonchi Cardiovascular: Regular rate and rhythm, Normal S1,S2, No M/G/R Abdomen: PEG tube bowel Sounds Present, Soft, Non Tender, Non-Distended : No dysuria. No renal angle tenderness. No suprapubic tenderness. Extremities: Mild leg edema, Capillary Refill Less than 3 Seconds Skin: No rashes, No breakdown Musculoskeletal: Decreased muscle strength of knees and hip joints. No Tenderness to Palpation of Joints or Extremities Neurological: DTR 2+/4. No acute focal neurological deficit. Psych/Mental Status: Flat affect. 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 #Acute febrile neutropenia in the setting of metastatic oropharyngeal cancer Patient is admitted to ICU due to concerns for sepsis and rapid deterioration in light of his immunocompromised state. Admitted with a complaint of fever. He had radiation on day of admission and chemotherapy 4 days ago. Denies any urinary symptoms or any respiratory symptoms or abdominal symptoms. Patient is tachycardic with heart rate of 131. Lactic acid is less than 1. Patient was hydrated hydrate aggressively with IV fluids. Continue IV vancomycin and Zosyn. Neutropenic precautions. consult critical care. 07/31: Low-grade fever today. Tmax 102.0 on 07/30 about 8 PM. Leukopenia, thrombocytopenia and anemia/pancytopenia. ANC 0.9 K suggestive of moderate neutropenia, ALC 0.27/lymphopenia, basophils 2.2%. Does not meet criteria for sepsis. Urine culture exhibits no growth. Respiratory panel negative. #PE D dimer ordered due to tachcyardia. D dimer was markedly elevated at ~ 7, so stat CTA chest done which showed pulmonary embolism of the right lower lobe subsegmenal branches. patient started on therapeutic lovenox. 05/31: Continue Lovenox. Shows mild decrease in hemoglobin and platelet count. Platelet count 0.183 on 07/26. 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 Corrected calcium is 7.4 therefore IV calcium gluconate ordered. CODE STATUS:full code Patient and counseled extensively about different types of CODE STATUS including full code, DNR CCA and DNR CCA. Patients elects for him to be full code. Microbiology Past 72 Hours 07/30/25 18:51 Urine, Clean Catch Urine Culture - Preliminary Culture exhibits no growth. 07/30/25 21:57 Mucosa - Nasopharyngeal Respiratory Panel (PCR) - Final Laboratory Results 07/30/25 16:04: WBC 1.0 L*, RBC 3.59 L, Hgb 10.7 L, Hct 31.5 L, MCV 87.7, MCH 29.8, MCHC 34.0, RDW Std Deviation 43.3, RDW Coeff of Macho 13.6, Plt Count TNP, MPV TNP, Immature Gran % (Auto) 0.000, Neut % (Auto) 45.1 L, Lymph % (Auto) 45.1 H, [place] % (Auto) 7.8, Eos % (Auto) 0.0, Baso % (Auto) 2.0 H, Absolute Neuts (auto) 0.5 L, Absolute Lymphs (auto) 0.46 L, Nucleated RBC % 0, Diff Path Review February, PT 13.8, INR 1.0, APTT 30.3, Sodium 133, Potassium 3.4, Chloride 97 L, Carbon Dioxide 25.3, Anion Gap 10, BUN 22 H, Creatinine 0.81, Estim Creat Clear Calc 69.20, Est GFR (MDRD) Non-Af 88, BUN/Creatinine Ratio 26.7 H, Glucose 110 H, Calcium 8.1, Total Bilirubin 0.66, AST 26, ALT 8, Alkaline Phosphatase 58, Total Protein 5.9, Albumin 3.4, Globulin 2.6, Albumin/Globulin Ratio 1.3 07/30/25 16:23: Lactic Acid < 1.0 07/30/25 18:51: Urine Color Straw, Urine Clarity Clear, Urine pH 7.0, Ur Specific [place] 1.010, Urine Protein Negative, Urine Glucose (UA) Normal, Urine Ketones 5 H, Urine Occult Blood 10 H, Urine Nitrite Negative, Urine Bilirubin Negative, Urine Urobilinogen Normal, Ur Leukocyte Esterase Negative, Urine RBC 0-5 SEEN, Urine WBC 0-5 SEEN, Ur Squamous Epith Cells 0-5 SEEN, Urine Bacteria 0 SEEN, Urine Mucus 0 SEEN 07/30/25 20:44: D-Dimer Quant (PE/DVT) 7.44 H* 07/30/25 20:54: MRSA (PCR) Negative 07/31/25 03:45: WBC 1.4 L*, RBC 3.04 L, Hgb 9.0 L, Hct 26.5 L, MCV 87.2, MCH 29.6, MCHC 34.0, RDW Std Deviation 42.4, RDW Coeff of Macho 13.6, Plt Count 129 L, MPV 9.9, Immature Gran % (Auto) 0.700, Neut % (Auto) 68.4, Lymph % (Auto) 19.9, [place] % (Auto) 8.1, Eos % (Auto) 0.7, Baso % (Auto) 2.2 H, Absolute Neuts (auto) 0.9 L, Absolute Lymphs (auto) 0.27 L, Nucleated RBC % 0, Differential Comment SCANNED, [place] Cells 1+, Sodium 138, Potassium 3.0 L, Chloride 105, Carbon Dioxide 23.9, Anion Gap 9, BUN 12, Creatinine 0.70, Estim Creat Clear Calc 70.06, Est GFR (MDRD) Non-Af 93, BUN/Creatinine Ratio 17.8, Glucose 110 H, Calcium 6.9 L Clinical Impression(s) from Imaging Studies Chest X-Ray 07/30/25 18:25 IMPRESSION: No Acute Findings. Reading Location: [facility] Chest CTA 07/30/25 22:16 IMPRESSION: Right lower lobe segmental branches pulmonary emboli. No evidence of large central or massive pulmonary embolus. No evidence of cardiac strain. Minimal bilateral pleural effusions. Passive atelectatic airspace disease in the lower lobes. Mild interstitial pulmonary congestion. Right Port-A-Cath is in good position. Mild cardiomegaly. Small sliding hiatal hernia. Left renal simple cyst measuring 3.5 cm. Chronic deformity of the posterior arch of the left 11th rib. I discussed the findings with NIGEL Natarajan in the ICU at 12:33 a.m. EST. Reading [facility] Charges/Coding Visit Charges Inpatient E&M: 29092 Subs Hosp L3
--- NOTE | 2025-07-31 09:55 | CASEMGMT ---
NIGEL HUNTER Assessment: Face to Face with pt for initial transition planning/care coordination assessment. NIGEL HUNTER introduced self and role at [facility], pt voices understanding and consents to assessment. Pt is A&O x4 and answers all questions appropriately at this time. Pt lying in bed in no distress. Pt sitting at bedside, pt agreeable to DC planning assessment with present. Care providers, pharmacy, and demographics verified/updated. Strata: 2 Admitting Dx: Febrile Neutropenia PCP: Alon Specialists: Cornell, Neurologist; ENT, [facility]; GI, [facility]. Preferred Pharmacy: [facility] Insurance: [employer] Prescription Benefit: yes LNOK: , Janel. Living Arrangements: Pt lives with and son in a single story with 3 steps to enter in. ADLs: Pt requiring more assistance recently with getting dressed, feeding, using the bathroom, etc. Transportation: Pt provides transportation. DME: Rollator, Transfer W/C, Grab bars, shower seat. Pt requested script for hospital bed. HHC/SNF: Denies Hx of. Pt and pt state their preference would be for SNF at time of DC to help pt get stronger before returning home. Follow therapy for recommendations. RN ELSA offered to provide a list of SNF's and to follow up with preferences if therapy recommends. Pt and requested TCU as first option and [facility] as 2nd choice. Pt states no further concerns/needs. CM to follow. Advised pt to ask CM if any further question/concerns/needs arise, voices understanding. Pt Goal: SNF Plan: TBD, follow therapy. Make SNF referral if appropriate. Mehdi MANNING CM
--- NOTE | 2025-07-31 11:34 | PCM.PN.TICU ---
Objective Data Objective Data Vital Signs: Vital Signs Last response Temperature 36.4 C L 07/31/25 07:00 Temperature Source Core 07/31/25 07:00 Pulse Rate 97 07/31/25 07:00 Pulse Strength Weak (1+) 07/30/25 21:11 Respiratory Rate 17 07/31/25 07:00 Respiratory Effort Normal, Non-Labored 07/31/25 08:00 Respiratory Depth Normal 07/31/25 08:00 Respiratory Pattern Normal 07/31/25 08:00 Blood Pressure 110/59 L 07/31/25 07:00 Blood Pressure Mean 76 07/31/25 07:00 Blood Pressure Source Monitor 07/31/25 07:00 Blood Pressure Position Semi-Fowlers 07/31/25 07:00 Blood Pressure Location Right Arm 07/31/25 07:00 Pulse Ox 97 07/31/25 07:00 Oxygen Delivery Method Room Air 07/31/25 08:00 Oxygen Flow Rate (L/min) 2 07/31/25 07:00 I&O: I&O Last 24 Hours 07/30/25 07/30/25 07/31/25 11:59 23:59 11:59 Intake Total 3534.25 / 3584.25 1495 / 1495 Output Total 350 / 1900 1875 / 1875 Balance 3184.25 / 1684.25 -380 / -380 I&O: Total Stay 07/30/25 16:15 thru 07/31/25 11:12 Intake Total 5029.25 Output Total 2225 Balance 2804.25 Current Meds Ordered / Administered: Current meds ordered / Administered Generic Name Dose Route Start Last Admin Trade Name Sunitha PRN Reason Stop Dose Admin Carbidopa/Levodopa 1 tablet 07/31/25 00:00 07/31/25 05:39 Carbidopa/Levodopa 25/100 Tablet PO 1 tablet 0000,0600,1200,2000 KRISHAN Administration Clarify Med Order 1 each 07/30/25 21:45 07/31/25 00:03 Clarify Order NOTE Not Given CLARIFY KRISHAN Enoxaparin Sodium 70 mg 07/31/25 01:00 07/31/25 01:46 Enoxaparin 80 Mg/0.8 Ml Syringe SC 70 mg Q12@0600,1800 KRISHAN Administration Fludrocortisone Acetate 0.1 mg 07/30/25 20:30 07/30/25 21:27 Fludrocortisone Acetate 0.1 Mg Tablet PO 0.1 mg DAILY KRISHAN Administration Guaifenesin 10 ml 07/30/25 20:30 Guaifenesin 10 Ml Udc (200mg/10ml) PO Q4H PRN CONGESTION Vancomycin IV-PHARMACY TO DOSE 500 mls @ 250 mls/hr 07/30/25 20:30 1 each/ Sodium Chloride IV X1 PRN Rx to Dose Protocol Piperacillin Sod/Tazobactam 50 mls @ 12.5 mls/hr 07/31/25 06:00 07/31/25 05:38 Sod 3.375 gm/ Sodium Chloride IV 12.5 mls/hr Q8 KRISHAN Administration Sodium Chloride 250 mls @ 15 mls/hr 07/30/25 20:31 IV .[id number] PRN Saline Flush Sodium Chloride 250 mls @ 15 mls/hr 07/30/25 20:31 IV .[id number] PRN Additional IVPB Infusion Vancomycin HCl 750 mg/ Sodium 265 mls @ 250 mls/hr 07/31/25 06:30 07/31/25 07:28 Chloride IV Infused Q12H KRISHAN Infusion Levothyroxine Sodium 50 mcg 07/31/25 06:00 07/31/25 05:39 Levothyroxine 50 Mcg Tablet PO 50 mcg DAILY@0600 KRISHAN Administration Lidocaine/Diphenhydr/Alum/Mg/Simeth 15 ml 07/30/25 20:44 Bmx Liquid 180 Ml PO 4X/DAY PRN PRN Pain Score 1-10 Lidocaine/Prilocaine 1 gm 07/30/25 20:42 Lidocaine/Prilocaine Hcl 5 Gm Tube TOPICAL X1 PRN PORT ACCESS Protocol Nitroglycerin 0.4 mg 07/30/25 20:30 Nitroglycerin (Inpatient Use) 0.4 Mg Tab.Subl SL Q5M PRN CARDIAC/CHEST PAIN Non-Formulary Medication 2 mg 07/31/25 10:00 Prucalopride [Motegrity] PO DAILY [facility] Ondansetron HCl 4 mg 07/30/25 20:30 Ondansetron 4 Mg/2 Ml Vial IV Q8H PRN PRN NAUSEA/VOMITING Pantoprazole Sodium 40 mg 07/30/25 20:30 07/30/25 21:26 Pantoprazole Sodium 40 Mg Tablet PO 40 mg DAILY KRISHAN Administration Senna 1 tablet 07/30/25 20:30 Senna Tablet PO DAILY PRN PRN Constipation Sodium Chloride 1 gm 07/30/25 20:30 Sodium Chloride 1 Gm Tablet PO 4X/DAY PRN PRN electrolyte replenishment Sodium Chloride 10 - 40 ml 07/30/25 20:31 07/31/25 01:46 0.9% Saline Lock 10 Ml Syringe IV 10 ml UD PRN Administration SALINE FLUSH Tamsulosin HCl 0.4 mg 07/30/25 22:00 07/30/25 20:53 Tamsulosin Hcl 0.4 Mg Capsule PO Not Given BID [facility] Vancomycin Protocol 1 lab 08/01/25 05:00 Vancomycin Trough/Random Due MC 08/01/25 07:00 DAILY [facility] Medical Records Data Medical Nutrition Assessment Dietitian: Malnutrition Criteria Met Start: 07/31/25 11:30 Freq: Status: Active Protocol: Document 07/31/25 11:30 SLA (Rec: 07/31/25 11:30 SLA [id number]) Nutrition Malnutrition Evidence of Yes Malnutrition Exists Malnutrition (severe Chronic ): Evidenced By Suboptimal Energy Intake (Severe),Weight Loss (Severe) Intake Problem Inadequate Oral Intake Etiology related to oropharyngeal cancer Signs/Symptoms as evidenced by need for PEG/ EN for nutrition Status Active Problem Clinical Problem Acute Disease or Injury Related Malnutrition Etiology related to inadequate oral energy intake d/t oropharyngeal cancer Signs/Symptoms as evidenced by po intake meeting < 75% of est nutritional needs and 3% wt loss in past 5 days. Has started using PEG this week, but not up to goal yet. Status Active Problem Recommendation Dietitian Rec Jevity 1.5 bolus feeds 5x/day during waking hours - Recommendations/ goal of 240 ml per feed w/ 90 ml water flush before Changes and after feedings to provide ~ 1800 ynes / 76 gm pro/ 1812 ml free water per day. Would start day 1 at 50% giving 120 ml formula bolus feeds, day 2 increase to 75 % giving 180 ml formula bolus feeds and increase to goal rate 240 ml formula day 3 as pt tolerated. Continue to follow and monitor for changes in pt nutritional status and make additional rec as indicated . Lab / Micro Data Attestation: I reviewed the patient's lab results. 07/31/25 03:45 07/31/25 03:45 Labs: Laboratory Results - last 24 hr 07/30/25 16:04: WBC 1.0 L*, RBC 3.59 L, Hgb 10.7 L, Hct 31.5 L, MCV 87.7, MCH 29.8, MCHC 34.0, RDW Std Deviation 43.3, RDW Coeff of Macho 13.6, Plt Count TNP, MPV TNP, Immature Gran % (Auto) 0.000, Neut % (Auto) 45.1 L, Lymph % (Auto) 45.1 H, [place] % (Auto) 7.8, Eos % (Auto) 0.0, Baso % (Auto) 2.0 H, Absolute Neuts (auto) 0.5 L, Absolute Lymphs (auto) 0.46 L, Nucleated RBC % 0, Diff Path Review February, PT 13.8, INR 1.0, APTT 30.3, Sodium 133, Potassium 3.4, Chloride 97 L, Carbon Dioxide 25.3, Anion Gap 10, BUN 22 H, Creatinine 0.81, Estim Creat Clear Calc 69.20, Est GFR (MDRD) Non-Af 88, BUN/Creatinine Ratio 26.7 H, Glucose 110 H, Calcium 8.1, Total Bilirubin 0.66, AST 26, ALT 8, Alkaline Phosphatase 58, Total Protein 5.9, Albumin 3.4, Globulin 2.6, Albumin/Globulin Ratio 1.3 07/30/25 16:23: Lactic Acid < 1.0 07/30/25 18:51: Urine Color Straw, Urine Clarity Clear, Urine pH 7.0, Ur Specific [place] 1.010, Urine Protein Negative, Urine Glucose (UA) Normal, Urine Ketones 5 H, Urine Occult Blood 10 H, Urine Nitrite Negative, Urine Bilirubin Negative, Urine Urobilinogen Normal, Ur Leukocyte Esterase Negative, Urine RBC 0-5 SEEN, Urine WBC 0-5 SEEN, Ur Squamous Epith Cells 0-5 SEEN, Urine Bacteria 0 SEEN, Urine Mucus 0 SEEN 07/30/25 20:44: D-Dimer Quant (PE/DVT) 7.44 H* 07/30/25 20:54: MRSA (PCR) Negative 07/31/25 03:45: WBC 1.4 L*, RBC 3.04 L, Hgb 9.0 L, Hct 26.5 L, MCV 87.2, MCH 29.6, MCHC 34.0, RDW Std Deviation 42.4, RDW Coeff of Macho 13.6, Plt Count 129 L, MPV 9.9, Immature Gran % (Auto) 0.700, Neut % (Auto) 68.4, Lymph % (Auto) 19.9, [place] % (Auto) 8.1, Eos % (Auto) 0.7, Baso % (Auto) 2.2 H, Absolute Neuts (auto) 0.9 L, Absolute Lymphs (auto) 0.27 L, Nucleated RBC % 0, Differential Comment SCANNED, [place] Cells 1+, Sodium 138, Potassium 3.0 L, Chloride 105, Carbon Dioxide 23.9, Anion Gap 9, BUN 12, Creatinine 0.70, Estim Creat Clear Calc 70.06, Est GFR (MDRD) Non-Af 93, BUN/Creatinine Ratio 17.8, Glucose 110 H, Calcium 6.9 L Micro: Microbiology 07/30/25 18:51 Urine, Clean Catch Urine Culture - Preliminary Culture exhibits no growth. 07/30/25 21:57 Mucosa - Nasopharyngeal Respiratory Panel (PCR) - Final Imaging Radiology Impression Chest X-Ray 07/30/25 18:25 IMPRESSION: No Acute Findings. Reading Location: [facility] Chest CTA 07/30/25 22:16 IMPRESSION: Right lower lobe segmental branches pulmonary emboli. No evidence of large central or massive pulmonary embolus. No evidence of cardiac strain. Minimal bilateral pleural effusions. Passive atelectatic airspace disease in the lower lobes. Mild interstitial pulmonary congestion. Right Port-A-Cath is in good position. Mild cardiomegaly. Small sliding hiatal hernia. Left renal simple cyst measuring 3.5 cm. Chronic deformity of the posterior arch of the left 11th rib. I discussed the findings with NIGEL Natarajan in the ICU at 12:33 a.m. EST. Reading Location: [place] [address] Assessment and Plan . Assessment and plan: Febrile Neutropenia secondary to chemotherapy ANC today 900 Continue broad-spectrum coverage: Vancomycin + Piperacillin-Tazobactam per ID/oncology guidance. Continue Granix daily until ANC > 1.0 ?10?/L. FU cultures (all NGTD) Maintain neutropenic precautions. Daily CBC and BMP. Avoid rectal temps, IM injections. Acute Pulmonary Embolism Continue therapeutic enoxaparin Monitor for bleeding Consider IVC filter if platelets drop <30k or if bleeding risk high. Chemotherapy-Induced Cytopenias and mucositis Monitor CBC daily Coordinate with oncology for chemotherapy hold. oral care and YOU[employer] DEVELOP[employer]IST to evaluate for swallowing Metastatic Oropharyngeal Cancer Continue chemoradiation per oncologic schedule if stabilized. Oncology consult for timing of next cycle and prognosis. Hypothyroidism / Possible Adrenal Insufficiency Continue levothyroxine. Continue fludrocortisone; consider hydrocortisone stress dosing if hypotensive or septic physiology develops. GERD Continue PPI; avoid aspiration risk. Fluid and Electrolyte Management IVF as needed; now euvolemic after 3 L boluses. Strict I/O; daily weights. Continue ICU for close monitoring of neutropenic fever, PE anticoagulation, and cytopenia management. Critical Care Time: 50 minutes The entirety of this encounter was done via Telemedicine Physical Exam Const alert General Appearance: combative and ill appearing Orientation / Consciousness: disoriented HEENT head/scalp atraumatic Face and Sinus: normal facial exam Nose: external nose normal Mouth: oral and palatal mucosa abnormal Eyes PERRL Neck full ROM Chest inspection of chest normal Resp normal respiratory effort Subjective Subjective Events reviewed, details of Dr. Fall's consultation discussed. He is oriented only to self, struggling with swallowing- coughed for 30 minutes after attempting to swallow Tylenol.
[2025-07-31] MEDS: CLARIFY ORDER 1 EACH NOTE (16:24)
[2025-07-31] MEDS: Calcium Gluconate IV 2 GM in 0.9% Normal Saline (100mL Bag) 100 ML IV (17:41)
[2025-07-31] MEDS: 0.9% Normal Saline (250mL Bag) 250 ML 15 ML IV ×2 (20:04→20:05)
[2025-07-31] MEDS: BMX LIQUID 180 ML 15 ML PO ×2 (20:11→22:11)
[2025-07-31] MEDS: Senna/Docusate Sodium 1 Tablet 2 TABLET GT (22:03)
[2025-08-01] VITALS (13 sets, daily range): BP systolic 113–135; BP diastolic 64–74; PULSE 82–110; RESP 12–23; TEMP 36.7–38; O2SAT 92–96; BMI 24.6
[2025-08-01] MEDS: 0.9% Saline Lock 10 ML Syringe IV ×4 (01:16→23:07)
[2025-08-01 04:27] LABS: Hematocrit 25.6 % (40-54); Hemoglobin 8.8 g/dL (13.0-16.5); Immature Granulocytes Count 0.110 X10^3/uL (0.0-0.0); Mean Corp Hgb Conc 34.4 g/dL (32-36); Mean Corpuscular Volume 86.2 fL (80-94); Mean Platelet Vol. 10.2 fl (6.2-12.0); NRBC Flagged by Analyzer 0 % (0-5); POSITIVE COUNT YES; POSITIVE DIFFERENTIAL YES; POSITIVE MORPHOLOGY YES; Platelet Count 147 K/mm3 (150-450); RBC Distribution Width CV 13.5 % (11.6-14.6); RBC Distribution Width SD 41.8 fl (35.1-43.9); Red Blood Count 2.97 M/mm3 (4.6-6.2); White Blood Count 1.8 K/mm3 (4.4-11.0)
[2025-08-01 04:29] LABS: Differential Indicated SCAN CRITERIA MET
[2025-08-01 05:07] LABS: CPK Total, Creatine Kinase 51 U/L (24-195); Vitamin B12 587 pg/mL (180-914)
[2025-08-01 05:12] LABS: AST(SGOT) 17 U/L (<=37); Alanine Aminotransfer ALT/SGPT < 5 U/L (<=46); Albumin, Serum 2.6 g/dL (3.4-4.8); Alkaline Phosphatase 47 U/L (40-129); Anion Gap 10 (5-15); BUN 12 mg/dL (4-19); BUN/Creat Ratio 16.7 RATIO (10-20); Calcium,Total 7.7 mg/dL (7.6-11.0); Carbon Dioxide 23.7 mmol/L (21.0-32.0); Chloride 101 mmol/L (98-108); Estimated Creatinine Clearance 70.06 ml/min (50-250); Globulin 2.1 g/dL (2.2-4.2); Glucose 106 mg/dL (70-99); Potassium 2.6 mmol/L (3.3-5.1)
[2025-08-01] MEDS: Potassium Chloride Oral Soln 20 MEQ/15 ML UDC 40 MEQ GT (05:57)
[2025-08-01] MEDS: Potassium Chloride 20mEq/100mL 20 MEQ/100 ML IV.SOLN. 100 MEQ IV BOLUS ×2 (05:59→07:52)
[2025-08-01] MEDS: Vancomycin Trough/Random Due 1 LAB MC (06:00)
[2025-08-01 06:01] LABS: Neutrophil-Band 8 % (0-5); Neutrophil-Segmented 60 % (47-70); Total Cells Counted 100 (MANUAL DIFF)
[2025-08-01 06:02] LABS: Scan Smear per Review Criteria MANUAL DIFF
[2025-08-01 06:03] LABS: FOLATES,SERUM (FOLIC ACID) 7.55 ng/mL (4.60-34.80)
[2025-08-01 06:07] LABS: Burr Cells 1+
[2025-08-01] MEDS: Piperacil/Tazobactam 3.375 GM in 0.9% Normal Saline (50mL MB+) 50 ML IV ×3 (06:16→22:10)
[2025-08-01 06:48] LABS: Vancomycin, Trough Level 9.0 ug/mL (5.0-15.0)
--- NOTE | 2025-08-01 08:23 | PN.HOSP_ITS ---
Reason for Visit
--- NOTE | 2025-08-01 08:23 | PCM.PN.HOSP ---
Reason for Visit Chief Complaint: fever Objective Data Objective Data Vital Signs: Vital Signs Temp Pulse Resp BP Pulse Ox O2 Del Method O2 Flow Rate 98.0 F 100 15 127/70 H 94 Room Air 2 08/01/25 04:00 08/01/25 07:00 08/01/25 07:00 08/01/25 07:00 08/01/25 07:00 08/01/25 07:03 07/31/25 07:00 Oxygen Flow Rate (L/min) 2 Oxygen Delivery Method Room Air Weight: 162 lb 0.636 oz Body Mass Index (BMI) 24.6 Intake & Output: Intake and Output for Last 24 Hours 07/30/25 07/31/25 08/01/25 23:59 23:59 23:59 Intake Total 3534.25 / 3584.25 3270 / 3270 350 / 350 Output Total 350 / 1900 3200 / 3200 450 / 450 Balance 3184.25 / 1684.25 70 / 70 -100 / -100 Medical Nutrition Assessment Dietitian: Malnutrition Criteria Met Start: 07/31/25 11:30 Freq: Status: Active Protocol: Document 07/31/25 11:30 SLA (Rec: 07/31/25 11:30 [facility] [id number]) Nutrition Malnutrition Evidence of Yes Malnutrition Exists Malnutrition (severe Chronic ): Evidenced By Suboptimal Energy Intake (Severe),Weight Loss (Severe) Intake Problem Inadequate Oral Intake Etiology related to oropharyngeal cancer Signs/Symptoms as evidenced by need for PEG/ EN for nutrition Status Active Problem Clinical Problem Acute Disease or Injury Related Malnutrition Etiology related to inadequate oral energy intake d/t oropharyngeal cancer Signs/Symptoms as evidenced by po intake meeting < 75% of est nutritional needs and 3% wt loss in past 5 days. Has started using PEG this week, but not up to goal yet. Status Active Problem Recommendation Dietitian Rec Jevity 1.5 bolus feeds 5x/day during waking hours - Recommendations/ goal of 240 ml per feed w/ 90 ml water flush before Changes and after feedings to provide ~ 1800 ynes / 76 gm pro/ 1812 ml free water per day. Would start day 1 at 50% giving 120 ml formula bolus feeds, day 2 increase to 75 % giving 180 ml formula bolus feeds and increase to goal rate 240 ml formula day 3 as pt tolerated. Continue to follow and monitor for changes in pt nutritional status and make additional rec as indicated . Lab / Micro Data 08/01/25 04:10 08/01/25 04:10 Labs: Laboratory Results - last 24 hr 08/01/25 04:10: WBC 1.8 L, RBC 2.97 L, Hgb 8.8 L, Hct 25.6 L, MCV 86.2, MCH 29.6, MCHC 34.4, RDW Std Deviation 41.8, RDW Coeff of Macho 13.5, Plt Count 147 L, MPV 10.2, Immature Gran % (Auto) Not Reportable, Neut % (Auto) Not Reportable, Lymph % (Auto) Not Reportable, [place] % (Auto) Not Reportable, Eos % (Auto) Not Reportable, Baso % (Auto) Not Reportable, Absolute Neuts (auto) 1.1 L, Absolute Lymphs (auto) 0.36 L, Total Counted 100, Neutrophils % (Manual) 60, Band Neutrophils % 8 H, Lymphocytes % (Manual) 20, Monocytes % (Manual) 4, Eosinophils % (Manual) 3, Basophils % (Manual) 1, Metamyelocytes % 4 H, Nucleated RBC % 0, Diff Path Review May foll, Platelet Estimate SLT DEC, [place]ma Cells 1+, Sodium 135, Potassium 2.6 L*, Chloride 101, Carbon Dioxide 23.7, Anion Gap 10, BUN 12, Creatinine 0.72, Estim Creat Clear Calc 70.06, Est GFR (MDRD) Non-Af 92, BUN/Creatinine Ratio 16.7, Glucose 106 H, Calcium 7.7, Total Bilirubin 0.55, AST 17, ALT < 5, Alkaline Phosphatase 47, Total Creatine Kinase 51, Total Protein 4.8 L, Albumin 2.6 L, Globulin 2.1 L, Albumin/Globulin Ratio 1.2, Vitamin B12 587 08/01/25 04:35: Serum Folate 7.55 08/01/25 06:10: Vancomycin Trough 9.0 Micro: Microbiology 07/30/25 18:51 Urine, Clean Catch Urine Culture - Preliminary Culture exhibits no growth. 07/30/25 21:57 Mucosa - Nasopharyngeal Respiratory Panel (PCR) - Final Physical Exam Narrative Seen and examined Patient has swelling/thick mucus secretions over oropharyngeal and throat region. On tube feed through PEG tube Physical exam General: Alert, Oriented x3, Cooperative HEENT: Atraumatic, PERRLA, EOMI, Normocephalic. Oral: Yellowish patch over left lateral margin of anterior tongue. Thick viscous mucoid accretions on the lateral margin of buccal cavity Oral gingivitis/soreness Neck: Supple, No JVD, Negative Carotid Bruits Chest wall/Lungs: Air entry diminished in bilateral lung bases. Mild crepitations on bases Cardiovascular: Regular rate and rhythm, Normal S1,S2, No M/G/R Abdomen: PEG tube bowel Sounds Present, Soft, Non Tender, Non-Distended : No dysuria. No renal angle tenderness. No suprapubic tenderness. Extremities: Mild leg edema, Capillary Refill Less than 3 Seconds Skin: No rashes, No breakdown Musculoskeletal: Decreased muscle strength of knees and hip joints. No Tenderness to Palpation of Joints or Extremities Neurological: DTR 2+/4. No acute focal neurological deficit. Psych/Mental Status: Flat affect. 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 #Acute febrile neutropenia in the setting of metastatic oropharyngeal cancer Patient is admitted to ICU due to concerns for sepsis and rapid deterioration in light of his immunocompromised state. Admitted with a complaint of fever. He had radiation on day of admission and chemotherapy 4 days ago. Denies any urinary symptoms or any respiratory symptoms or abdominal symptoms. Patient is tachycardic with heart rate of 131. Lactic acid is less than 1. Patient was hydrated hydrate aggressively with IV fluids. Continue IV vancomycin and Zosyn. Neutropenic precautions. consult critical care. 07/31: Low-grade fever today. Tmax 102.0 on 07/30 about 8 PM. Leukopenia, thrombocytopenia and anemia/pancytopenia. ANC 0.9 K suggestive of moderate neutropenia, ALC 0.27/lymphopenia, basophils 2.2%. Does not meet criteria for sepsis. Urine culture exhibits no growth. Respiratory panel negative. 08/01: No fever, Tmax 100.1 F. Still leukopenia, ANC 1.1 K, improved from 0.5 K. Started on Granix. Discussed with pharmacy and Peridex/chlorhexidine oral rinse ordered. Mouth hygiene. Continue antibiotic. ID consult tomorrow AM. #PE D dimer ordered due to tachcyardia. D dimer was markedly elevated at ~ 7, so stat CTA chest done which showed pulmonary embolism of the right lower lobe subsegmenal branches. patient started on therapeutic lovenox. 05/31: Continue Lovenox. Shows mild decrease in hemoglobin and platelet count. Platelet count 0.183 on 07/26. 06/01: Platelet count 100 47K, improved from yesterday. H&H 8.8/25.6%. Bands 8%, metamyelocytes 4%. #parkinson's disease with Dementia: On levodopa carbidopa #GERD: PPI #Hypothyroidism: On Synthroid #BPH: On Flomax DVT prophylaxis: not indicated as patient started on therapeutic lovenox for newly diagnosed PE Electrolyte abnormality: Hypocalcemia: Calcium 6.9, albumin 3.4. Corrected calcium is 7.4 therefore IV calcium gluconate ordered. 08/01: Severe hypokalemia, K2.6. 40 mEq oral and 40 mEq IV KCl replaced. Repeat serum magnesium and phosphorus and BMP after 1 hour of completion of electrolyte replacement. CODE STATUS:full code Patient and counseled extensively about different types of CODE STATUS including full code, DNR CCA and DNR CCA. Patients elects for him to be full code. Microbiology Past 72 Hours 07/30/25 18:51 Urine, Clean Catch Urine Culture - Preliminary Culture exhibits no growth. 07/30/25 21:57 Mucosa - Nasopharyngeal Respiratory Panel (PCR) - Final Laboratory Results 08/01/25 04:10: WBC 1.8 L, RBC 2.97 L, Hgb 8.8 L, Hct 25.6 L, MCV 86.2, MCH 29.6, MCHC 34.4, RDW Std Deviation 41.8, RDW Coeff of Macho 13.5, Plt Count 147 L, MPV 10.2, Immature Gran % (Auto) Not Reportable, Neut % (Auto) Not Reportable, Lymph % (Auto) Not Reportable, Gibson % (Auto) Not Reportable, Eos % (Auto) Not Reportable, Baso % (Auto) Not Reportable, Absolute Neuts (auto) 1.1 L, Absolute Lymphs (auto) 0.36 L, Total Counted 100, Neutrophils % (Manual) 60, Band Neutrophils % 8 H, Lymphocytes % (Manual) 20, Monocytes % (Manual) 4, Eosinophils % (Manual) 3, Basophils % (Manual) 1, Metamyelocytes % 4 H, Nucleated RBC % 0, Diff Path Review May foll, Platelet Estimate SLT DEC, [place] Cells 1+, Sodium 135, Potassium 2.6 L*, Chloride 101, Carbon Dioxide 23.7, Anion Gap 10, BUN 12, Creatinine 0.72, Estim Creat Clear Calc 70.06, Est GFR (MDRD) Non-Af 92, BUN/Creatinine Ratio 16.7, Glucose 106 H, Calcium 7.7, Total Bilirubin 0.55, AST 17, ALT < 5, Alkaline Phosphatase 47, Total Creatine Kinase 51, Total Protein 4.8 L, Albumin 2.6 L, Globulin 2.1 L, Albumin/Globulin Ratio 1.2, Vitamin B12 587 08/01/25 04:35: Serum Folate 7.55 08/01/25 06:10: Vancomycin Trough 9.0 Clinical Impression(s) from Imaging Studies Chest X-Ray 07/30/25 18:25 IMPRESSION: No Acute Findings. Reading Location: [facility] Chest CTA 07/30/25 22:16 IMPRESSION: Right lower lobe segmental branches pulmonary emboli. No evidence of large central or massive pulmonary embolus. No evidence of cardiac strain. Minimal bilateral pleural effusions. Passive atelectatic airspace disease in the lower lobes. Mild interstitial pulmonary congestion. Right Port-A-Cath is in good position. Mild cardiomegaly. Small sliding hiatal hernia. Left renal simple cyst measuring 3.5 cm. Chronic deformity of the posterior arch of the left 11th rib. I discussed the findings with NIGEL Natarajan in the ICU at 12:33 a.m. EST. [id number] Charges/Coding Visit Charges Inpatient E&M: 91914 Subs Hosp L3
[2025-08-01] MEDS: Vancomycin HCl 1,000 MG in 0.9% Normal Saline (250mL Bag) 250 ML 250 MG IV ×2 (09:49→20:58)
[2025-08-01] MEDS: TBO-FILGRASTIM 480 MCG/0.8 ML ML SC (09:59)
[2025-08-01] MEDS: Lactobacillis Acidophilus 1 CAP GT ×3 (09:59→21:06)
[2025-08-01] MEDS: Chlorhexidine 480 ML 15 ML PO ×3 (10:00→21:07)
[2025-08-01] MEDS: BMX LIQUID 180 ML 15 ML PO ×4 (10:01→21:07)
--- NOTE | 2025-08-01 10:34 | PCM.RX.CS ---
Consult Antibiotic Management Pharmacy has been consulted to manage selected antibiotic: Vancomycin Type of Intervention Type of Consult: Follow-up Suspected Infection Suspected Infection: Other Labs Labs: Sodium 135 mmol/L (133-145) 08/01/25 04:10 Potassium 2.6 mmol/L (3.3-5.1) L* 08/01/25 04:10 Chloride 101 mmol/L (98-108) 08/01/25 04:10 Carbon Dioxide 23.7 mmol/L (21.0-32.0) 08/01/25 04:10 Anion Gap 10 (5-15) 08/01/25 04:10 BUN 12 mg/dL (4-19) 08/01/25 04:10 Creatinine 0.72 mg/dL (0.70-1.20) 08/01/25 04:10 Est GFR (MDRD) Non-Af 92 (>60) 08/01/25 04:10 BUN/Creatinine Ratio 16.7 RATIO (10-20) 08/01/25 04:10 Glucose 106 mg/dL (70-99) H 08/01/25 04:10 Vancomycin Trough 9.0 ug/mL (5.0-15.0) 08/01/25 06:10 Microbiology Microbiology: Microbiology 07/30/25 18:51 Urine, Clean Catch Urine Culture - Preliminary Culture exhibits no growth. 07/30/25 21:57 Mucosa - Nasopharyngeal Respiratory Panel (PCR) - Final Goal Trough Goal Trough: 15-20 mcg/mL Pharmacy Plan for Drug Dosing Pharmacy Plan for Drug Dosing: VANCOMYCIN LEVEL RECEIVED Current Vancomycin Dose: 750mg q12h (0630,1830) Number of Doses Received: x1 1750mg ER dose, x2 750mg doses Vancomycin Level: 9 (drawn 08/01 at 0610) Hours Since Last Dose: 10 hours since last 750mg dose on 07/31 at 2005 Renal Function: SrCr 0.72 Renal Function Trend: SrCr improving (was 0.81 on 07/30) Lab/Micro: Vancomycin Plan/Comments: resulted trough of 9 is below the ordered goal trough range of 15-20. recommend increasing dose to 1000mg q12h and checking a trough prior to the 4th dose Pending Level: 08/02/25 at 2030 Pharmacy Service will continue to monitor and adjust dosing as required. Follow-Up Labs Follow-Up Labs: Trough: Vancomycin (08/02/25 at 2030)
[2025-08-01 12:49] LABS: Anion Gap 10 (5-15); BUN 11 mg/dL (4-19); BUN/Creat Ratio 14.7 RATIO (10-20); Calcium,Total 7.8 mg/dL (7.6-11.0); Carbon Dioxide 22.7 mmol/L (21.0-32.0); Chloride 102 mmol/L (98-108); Estimated Creatinine Clearance 70.06 ml/min (50-250); Glucose 100 mg/dL (70-99); Magnesium 1.7 mg/dL (1.5-2.2); Potassium 3.2 mmol/L (3.3-5.1)
[2025-08-01] MEDS: FIBER GT (13:18)
[2025-08-01] MEDS: NUTRITIONAL SUPPLEMENT GT (13:18)
--- NOTE | 2025-08-01 14:31 | PCM.PN.TICU ---
Objective Data Objective Data Vital Signs: Vital Signs Last response Temperature 37.4 C H 08/01/25 13:48 Temperature Source Core 08/01/25 13:48 Pulse Rate 96 08/01/25 13:48 Pulse Strength Weak (1+) 07/30/25 21:11 Respiratory Rate 17 08/01/25 13:48 Respiratory Effort Normal 08/01/25 13:47 Respiratory Depth Shallow 08/01/25 13:47 Respiratory Pattern Normal 08/01/25 13:47 Blood Pressure 129/74 H 08/01/25 13:48 Blood Pressure Mean 92 08/01/25 13:48 Blood Pressure Source Monitor 08/01/25 13:48 Blood Pressure Position Sitting 08/01/25 13:48 Blood Pressure Location Left Arm 08/01/25 13:48 Pulse Ox 96 08/01/25 13:48 Oxygen Delivery Method Room Air 08/01/25 13:48 Oxygen Flow Rate (L/min) 2 07/31/25 07:00 I&O: I&O Last 24 Hours 07/31/25 08/01/25 08/01/25 23:59 11:59 23:59 Intake Total 1775 / 3270 500 / 650 150 / 650 Output Total 1325 / 3200 450 / 825 375 / 825 Balance 450 / 70 50 / -175 -225 / -175 I&O: Total Stay 07/30/25 16:15 thru 08/01/25 13:41 Intake Total 7454.25 Output Total 4375 Balance 3079.25 Current Meds Ordered / Administered: Current meds ordered / Administered Generic Name Dose Route Start Last Admin Trade Name Sunitha PRN Reason Stop Dose Admin Carbidopa/Levodopa 1 tablet 08/01/25 00:00 08/01/25 13:18 Carbidopa/Levodopa 25/100 Tablet GT 1 tablet 0000,0600,1200,2000 KRISHAN Administration Chlorhexidine Gluconate 15 ml 08/01/25 08:30 08/01/25 13:17 Chlorhexidine 480 Ml PO 15 ml TID KRISHAN Administration Clarify Med Order 1 each 07/30/25 21:45 07/31/25 16:24 Clarify Order NOTE 1 each CLARIFY KRISHAN Administration Enoxaparin Sodium 70 mg 07/31/25 01:00 08/01/25 06:00 Enoxaparin 80 Mg/0.8 Ml Syringe SC 70 mg Q12@0600,1800 KRISHAN Administration Fludrocortisone Acetate 0.1 mg 08/01/25 10:00 08/01/25 09:53 Fludrocortisone Acetate 0.1 Mg Tablet GT 0.1 mg On Hold: 08/01/25 10:58 DAILY KRISHAN Administration Guaifenesin 10 ml 07/31/25 20:29 Guaifenesin 10 Ml Udc (200mg/10ml) GT Q4H PRN CONGESTION Vancomycin IV-PHARMACY TO DOSE 500 mls @ 250 mls/hr 07/30/25 20:30 1 each/ Sodium Chloride IV X1 PRN Rx to Dose Protocol Piperacillin Sod/Tazobactam 50 mls @ 12.5 mls/hr 07/31/25 06:00 08/01/25 13:19 Sod 3.375 gm/ Sodium Chloride IV 12.5 mls/hr Q8 KRISHAN Administration Sodium Chloride 250 mls @ 15 mls/hr 07/30/25 20:31 07/31/25 20:04 IV 15 mls/hr .[id number] PRN Administration Saline Flush Sodium Chloride 250 mls @ 15 mls/hr 07/30/25 20:31 07/31/25 20:05 IV 15 mls/hr .[id number] PRN Administration Additional IVPB Infusion Vancomycin HCl 1,000 mg/ 270 mls @ 250 mls/hr 08/01/25 09:00 08/01/25 09:49 Sodium Chloride IV 250 mls/hr Q12H KRISHAN Administration Magnesium Sulfate 2 gm/ 104 mls @ 52 mls/hr 08/01/25 14:19 Dextrose IV 08/01/25 16:18 X1 ONE Levothyroxine Sodium 50 mcg 08/01/25 06:00 08/01/25 06:02 Levothyroxine 50 Mcg Tablet GT 50 mcg DAILY@0600 KRISHAN Administration Lidocaine/Diphenhydr/Alum/Mg/Simeth 15 ml 07/31/25 18:30 08/01/25 13:18 Bmx Liquid 180 Ml PO 15 ml 4X/DAY KRISHAN Administration Lidocaine/Prilocaine 1 gm 07/30/25 20:42 Lidocaine/Prilocaine Hcl 5 Gm Tube TOPICAL X1 PRN PORT ACCESS Protocol Nitroglycerin 0.4 mg 07/30/25 20:30 Nitroglycerin (Inpatient Use) 0.4 Mg Tab.Subl SL Q5M PRN CARDIAC/CHEST PAIN Non-Formulary Medication 2 mg 07/31/25 10:00 Prucalopride [Motegrity] PO DAILY [facility] Ondansetron HCl 4 mg 07/30/25 20:30 Ondansetron 4 Mg/2 Ml Vial IV Q8H PRN PRN NAUSEA/VOMITING Pantoprazole Sodium 40 mg 07/30/25 20:30 08/01/25 09:53 Pantoprazole Sodium 40 Mg Tablet PO Not Given DAILY KRISHAN Potassium Phos/Sodium Phos 1 packet 08/01/25 14:20 Na Biphos/Potassium Phosphate Packet PO 08/03/25 14:21 TID [facility] Senna/Docusate Sodium 2 tablet 07/31/25 22:00 08/01/25 09:53 Senna/Docusate Sodium 1 Tablet GT Not Given BID [facility] Sodium Chloride 1 gm 07/30/25 20:30 Sodium Chloride 1 Gm Tablet PO 4X/DAY PRN PRN electrolyte replenishment Sodium Chloride 10 - 40 ml 07/30/25 20:31 08/01/25 04:38 0.9% Saline Lock 10 Ml Syringe IV 40 ml UD PRN Administration SALINE FLUSH Tamsulosin HCl 0.4 mg 07/30/25 22:00 08/01/25 09:52 Tamsulosin Hcl 0.4 Mg Capsule PO Not Given BID [facility] Tbo-Filgrastim 300 mcg 08/02/25 10:00 Tbo-Filgrastim 300 Mcg/0.5 Ml Ml SC 08/05/25 10:01 DAILY [facility] Vancomycin Protocol 1 lab 08/02/25 19:30 Vancomycin Trough/Random Due MC 08/02/25 21:30 DAILY [facility] Medical Records Data Medical Nutrition Assessment Dietitian: Malnutrition Criteria Met Start: 07/31/25 11:30 Freq: Status: Active Protocol: Document 07/31/25 11:30 ELAINA (Rec: 07/31/25 11:30 ELAINA [id number]) Nutrition Malnutrition Evidence of Yes Malnutrition Exists Malnutrition (severe Chronic ): Evidenced By Suboptimal Energy Intake (Severe),Weight Loss (Severe) Intake Problem Inadequate Oral Intake Etiology related to oropharyngeal cancer Signs/Symptoms as evidenced by need for PEG/ EN for nutrition Status Active Problem Clinical Problem Acute Disease or Injury Related Malnutrition Etiology related to inadequate oral energy intake d/t oropharyngeal cancer Signs/Symptoms as evidenced by po intake meeting < 75% of est nutritional needs and 3% wt loss in past 5 days. Has started using PEG this week, but not up to goal yet. Status Active Problem Recommendation Dietitian Rec Jevity 1.5 bolus feeds 5x/day during waking hours - Recommendations/ goal of 240 ml per feed w/ 90 ml water flush before Changes and after feedings to provide ~ 1800 ynes / 76 gm pro/ 1812 ml free water per day. Would start day 1 at 50% giving 120 ml formula bolus feeds, day 2 increase to 75 % giving 180 ml formula bolus feeds and increase to goal rate 240 ml formula day 3 as pt tolerated. Continue to follow and monitor for changes in pt nutritional status and make additional rec as indicated . Lab / Micro Data Attestation: I reviewed the patient's lab results. 08/01/25 04:10 08/01/25 12:00 Labs: Laboratory Results - last 24 hr 08/01/25 04:10: WBC 1.8 L, RBC 2.97 L, Hgb 8.8 L, Hct 25.6 L, MCV 86.2, MCH 29.6, MCHC 34.4, RDW Std Deviation 41.8, RDW Coeff of Macho 13.5, Plt Count 147 L, MPV 10.2, Immature Gran % (Auto) Not Reportable, Neut % (Auto) Not Reportable, Lymph % (Auto) Not Reportable, [place] % (Auto) Not Reportable, Eos % (Auto) Not Reportable, Baso % (Auto) Not Reportable, Absolute Neuts (auto) 1.1 L, Absolute Lymphs (auto) 0.36 L, Total Counted 100, Neutrophils % (Manual) 60, Band Neutrophils % 8 H, Lymphocytes % (Manual) 20, Monocytes % (Manual) 4, Eosinophils % (Manual) 3, Basophils % (Manual) 1, Metamyelocytes % 4 H, Nucleated RBC % 0, Diff Path Review May foll, Platelet Estimate SLT DEC, [place] Cells 1+, Sodium 135, Potassium 2.6 L*, Chloride 101, Carbon Dioxide 23.7, Anion Gap 10, BUN 12, Creatinine 0.72, Estim Creat Clear Calc 70.06, Est GFR (MDRD) Non-Af 92, BUN/Creatinine Ratio 16.7, Glucose 106 H, Calcium 7.7, Total Bilirubin 0.55, AST 17, ALT < 5, Alkaline Phosphatase 47, Total Creatine Kinase 51, Total Protein 4.8 L, Albumin 2.6 L, Globulin 2.1 L, Albumin/Globulin Ratio 1.2, Vitamin B12 587 08/01/25 04:35: Serum Folate 7.55 08/01/25 06:10: Vancomycin Trough 9.0 08/01/25 12:00: Sodium 135, Potassium 3.2 L, Chloride 102, Carbon Dioxide 22.7, Anion Gap 10, BUN 11, Creatinine 0.75, Estim Creat Clear Calc 70.06, Est GFR (MDRD) Non-Af 91, BUN/Creatinine Ratio 14.7, Glucose 100 H, Calcium 7.8, Phosphorus 1.7 L, Magnesium 1.7 Assessment and Plan . Assessment and plan: Febrile Neutropenia secondary to chemotherapy ANC improved Continue broad-spectrum coverage: Vancomycin + Piperacillin-Tazobactam per ID/oncology guidance. Continue Granix daily until ANC > 1.0 ?10?/L. FU cultures (all NGTD) Daily CBC and BMP. Avoid rectal temps, IM injections. Acute Pulmonary Embolism Continue therapeutic enoxaparin Monitor for bleeding Consider IVC filter if platelets drop <30k or if bleeding risk high. Chemotherapy-Induced Cytopenias and mucositis Monitor CBC daily Coordinate with oncology for chemotherapy hold. oral care remains NPO Metastatic Oropharyngeal Cancer Continue chemoradiation per oncologic schedule if stabilized. Oncology consult for timing of next cycle and prognosis. Hypothyroidism / Possible Adrenal Insufficiency Continue levothyroxine. Continue fludrocortisone; consider hydrocortisone stress dosing if hypotensive or septic physiology develops. GERD Continue PPI; avoid aspiration risk. Critical Care Time: The entirety of this encounter was done via Telemedicine Subjective Subjective No further issues with respiratory insufficiency, plans for transfer are appropriate
[2025-08-01] MEDS: Magnesium Sulfate 2 GM in Dextrose 5%-Water (100mL Bag) 100 ML IV (17:22)
[2025-08-01] MEDS: Na Biphos/Potassium Phosphate PACKET 1 PACKET PO ×2 (17:22→21:06)
[2025-08-01] MEDS: Acetaminophen 650 MG/20 ML UDC GT (21:06)
[2025-08-01] MEDS: Senna/Docusate Sodium 1 Tablet 2 TABLET GT (21:09)
[2025-08-01] MEDS: 0.9% Normal Saline (250mL Bag) 250 ML 15 ML IV ×2 (22:11→23:13)
[2025-08-02] VITALS (10 sets, daily range): BP systolic 103–141; BP diastolic 56–79; PULSE 88–110; RESP 12–17; TEMP 36.6–37.6; O2SAT 92–97; BMI 25.0
[2025-08-02 03:32] LABS: Hematocrit 25.4 % (40-54); Hemoglobin 8.8 g/dL (13.0-16.5); Immature Granulocytes Count 0.030 X10^3/uL (0.0-0.0); Mean Corp Hgb Conc 34.6 g/dL (32-36); Mean Corpuscular Volume 85.2 fL (80-94); Mean Platelet Vol. 10.1 fl (6.2-12.0); NRBC Flagged by Analyzer 0 % (0-5); POSITIVE DIFFERENTIAL YES; POSITIVE MORPHOLOGY YES; Platelet Count 129 K/mm3 (150-450); RBC Distribution Width CV 13.4 % (11.6-14.6); RBC Distribution Width SD 41.4 fl (35.1-43.9); Red Blood Count 2.98 M/mm3 (4.6-6.2); White Blood Count 2.3 K/mm3 (4.4-11.0)
[2025-08-02 03:49] LABS: AST(SGOT) 16 U/L (<=37); Alanine Aminotransfer ALT/SGPT 6 U/L (<=46); Albumin, Serum 2.6 g/dL (3.4-4.8); Alkaline Phosphatase 47 U/L (40-129); Anion Gap 8 (5-15); BUN 13 mg/dL (4-19); BUN/Creat Ratio 15.9 RATIO (10-20); Calcium,Total 7.3 mg/dL (7.6-11.0); Carbon Dioxide 24.6 mmol/L (21.0-32.0); Chloride 103 mmol/L (98-108); Estimated Creatinine Clearance 70.06 ml/min (50-250); Globulin 2.1 g/dL (2.2-4.2); Glucose 111 mg/dL (70-99); Potassium 2.9 mmol/L (3.3-5.1)
[2025-08-02 04:04] LABS: Differential Indicated SCAN CRITERIA MET
[2025-08-02 04:05] LABS: Differential Comment SCANNED
[2025-08-02] MEDS: 0.9% Saline Lock 10 ML Syringe IV ×2 (04:11→13:54)
[2025-08-02] MEDS: Piperacil/Tazobactam 3.375 GM in 0.9% Normal Saline (50mL MB+) 50 ML IV ×3 (05:50→21:35)
[2025-08-02] MEDS: Chlorhexidine 480 ML 15 ML PO ×3 (05:51→21:01)
[2025-08-02] MEDS: Lactobacillis Acidophilus 1 CAP GT ×3 (05:51→20:59)
[2025-08-02] MEDS: Na Biphos/Potassium Phosphate PACKET 1 PACKET PO ×3 (05:51→21:00)
--- NOTE | 2025-08-02 08:26 | PN.HOSP_ITS ---
Reason for Visit
--- NOTE | 2025-08-02 08:26 | PCM.PN.HOSP ---
Reason for Visit Chief Complaint: fever Objective Data Objective Data Vital Signs: Vital Signs Temp Pulse Resp BP Pulse Ox O2 Del Method O2 Flow Rate 98.4 F 88 17 131/74 H 92 Room Air 2 08/02/25 06:00 08/02/25 06:00 08/02/25 06:00 08/02/25 06:00 08/02/25 06:00 08/02/25 06:00 07/31/25 07:00 Oxygen Flow Rate (L/min) 2 Oxygen Delivery Method Room Air Weight: 164 lb 14.492 oz Body Mass Index (BMI) 25.0 Intake & Output: Intake and Output for Last 24 Hours 07/31/25 08/01/25 08/02/25 23:59 23:59 23:59 Intake Total 3270 / 3270 2614 / 2614 230 / 230 Output Total 3200 / 3200 1525 / 1525 450 / 450 Balance 70 / 70 1089 / 1089 -220 / -220 Medical Nutrition Assessment Dietitian: Malnutrition Criteria Met Start: 07/31/25 11:30 Freq: Status: Active Protocol: Document 07/31/25 11:30 SLA (Rec: 07/31/25 11:30 SLA [id number]) Nutrition Malnutrition Evidence of Yes Malnutrition Exists Malnutrition (severe Chronic ): Evidenced By Suboptimal Energy Intake (Severe),Weight Loss (Severe) Intake Problem Inadequate Oral Intake Etiology related to oropharyngeal cancer Signs/Symptoms as evidenced by need for PEG/ EN for nutrition Status Active Problem Clinical Problem Acute Disease or Injury Related Malnutrition Etiology related to inadequate oral energy intake d/t oropharyngeal cancer Signs/Symptoms as evidenced by po intake meeting < 75% of est nutritional needs and 3% wt loss in past 5 days. Has started using PEG this week, but not up to goal yet. Status Active Problem Recommendation Dietitian Rec Jevity 1.5 bolus feeds 5x/day during waking hours - Recommendations/ goal of 240 ml per feed w/ 90 ml water flush before Changes and after feedings to provide ~ 1800 ynes / 76 gm pro/ 1812 ml free water per day. Would start day 1 at 50% giving 120 ml formula bolus feeds, day 2 increase to 75 % giving 180 ml formula bolus feeds and increase to goal rate 240 ml formula day 3 as pt tolerated. Continue to follow and monitor for changes in pt nutritional status and make additional rec as indicated . Lab / Micro Data 08/02/25 03:20 08/02/25 03:20 Labs: Laboratory Results - last 24 hr 08/01/25 12:00: Sodium 135, Potassium 3.2 L, Chloride 102, Carbon Dioxide 22.7, Anion Gap 10, BUN 11, Creatinine 0.75, Estim Creat Clear Calc 70.06, Est GFR (MDRD) Non-Af 91, BUN/Creatinine Ratio 14.7, Glucose 100 H, Calcium 7.8, Phosphorus 1.7 L, Magnesium 1.7 08/02/25 03:20: WBC 2.3 L, RBC 2.98 L, Hgb 8.8 L, Hct 25.4 L, MCV 85.2, MCH 29.5, MCHC 34.6, RDW Std Deviation 41.4, RDW Coeff of Macho 13.4, Plt Count 129 L, MPV 10.1, Immature Gran % (Auto) 1.300 H, Neut % (Auto) 56.1, Lymph % (Auto) 18.7 L, [place] % (Auto) 19.6 H, Eos % (Auto) 1.7, Baso % (Auto) 2.6 H, Absolute Neuts (auto) 1.3 L, Absolute Lymphs (auto) 0.43 L, Nucleated RBC % 0, Differential Comment SCANNED, Sodium 136, Potassium 2.9 L, Chloride 103, Carbon Dioxide 24.6, Anion Gap 8, BUN 13, Creatinine 0.80, Estim Creat Clear Calc 70.06, Est GFR (MDRD) Non-Af 89, BUN/Creatinine Ratio 15.9, Glucose 111 H, Calcium 7.3 L, Total Bilirubin 0.48, AST 16, ALT 6, Alkaline Phosphatase 47, Total Protein 4.7 L, Albumin 2.6 L, Globulin 2.1 L, Albumin/Globulin Ratio 1.2 Micro: Microbiology 07/30/25 18:25 Blood Culture (Wb) - Venous Blood Culture - Preliminary No growth in 48 hours. 07/30/25 16:23 Blood Culture (Wb) - Line Draw Blood Culture - Preliminary No growth in 48 hours. 07/30/25 18:51 Urine, Clean Catch Urine Culture - Preliminary Culture exhibits no growth. 07/30/25 21:57 Mucosa - Nasopharyngeal Respiratory Panel (PCR) - Final Physical Exam Narrative Seen and examined Patient has swelling/thick mucus secretions over oropharyngeal and throat region. On tube feed through PEG tube. Had BM yesterday. Physical exam General: Alert, Oriented x3, Cooperative HEENT: Atraumatic, PERRLA, EOMI, Normocephalic. Oral: Yellowish patch over left and right lateral margin of anterior tongue. Mucositis and thick viscous mucoid accretions on the lateral margin of buccal cavity Oral gingivitis/soreness Neck: Supple, No JVD, Negative Carotid Bruits Chest wall/Lungs: Air entry diminished in bilateral lung bases. Mild crepitations on bases Cardiovascular: Regular rate and rhythm, Normal S1,S2, No M/G/R Abdomen: PEG tube bowel Sounds Present, Soft, Non Tender, Non-Distended : No dysuria. No renal angle tenderness. No suprapubic tenderness. Extremities: Mild leg edema, Capillary Refill Less than 3 Seconds Skin: No rashes, No breakdown Musculoskeletal: Decreased muscle strength of knees and hip joints. No Tenderness to Palpation of Joints or Extremities Neurological: DTR 2+/4. No acute focal neurological deficit. Psych/Mental Status: Flat affect. 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 #Acute febrile neutropenia in the setting of metastatic oropharyngeal cancer Patient is admitted to ICU due to concerns for sepsis and rapid deterioration in light of his immunocompromised state. Admitted with a complaint of fever. He had radiation on day of admission and chemotherapy 4 days ago. Denies any urinary symptoms or any respiratory symptoms or abdominal symptoms. Patient is tachycardic with heart rate of 131. Lactic acid is less than 1. Patient was hydrated hydrate aggressively with IV fluids. Continue IV vancomycin and Zosyn. Neutropenic precautions. consult critical care. 07/31: Low-grade fever today. Tmax 102.0 on 07/30 about 8 PM. Leukopenia, thrombocytopenia and anemia/pancytopenia. ANC 0.9 K suggestive of moderate neutropenia, ALC 0.27/lymphopenia, basophils 2.2%. Does not meet criteria for sepsis. Urine culture exhibits no growth. Respiratory panel negative. 08/01: No fever, Tmax 100.1 F. Still leukopenia, ANC 1.1 K, improved from 0.5 K. Started on Granix. Discussed with pharmacy and Peridex/chlorhexidine oral rinse ordered. Mouth hygiene. Continue antibiotic. ID consult tomorrow AM. 08/02: Tmax 100.4 Fahrenheit on 08/01 evening. ANC 1.2 K, continue Granix today. Continue Peridex and oral hygiene for mouth soreness and mucositis. Oncologist consult requested as per patient's request. He was supposed to start chemotherapy today but it is contraindicated due to neutropenic fever and pancytopenia for now. Cultures are negative so far. ID consulted to narrow down the antibiotic #PE D dimer ordered due to tachcyardia. D dimer was markedly elevated at ~ 7, so stat CTA chest done which showed pulmonary embolism of the right lower lobe subsegmenal branches. patient started on therapeutic lovenox. 05/31: Continue Lovenox. Shows mild decrease in hemoglobin and platelet count. Platelet count 0.183 on 07/26. 06/01: Platelet count 147K, improved from yesterday. H&H 8.8/25.6%. Bands 8%, metamyelocytes 4%. Pancytopenia since admission due to chemotherapy and radiotherapy 06/02: All 3 cell lines are low. Platelet count 129K. Patient also on Lovenox as mentioned above. #parkinson's disease with Dementia: On levodopa carbidopa #GERD: PPI #Hypothyroidism: On Synthroid #BPH: On Flomax DVT prophylaxis: not indicated as patient started on therapeutic lovenox for newly diagnosed PE Electrolyte abnormality: Hypocalcemia: Calcium 6.9, albumin 3.4. Corrected calcium is 7.4 therefore IV calcium gluconate ordered. 08/01: Severe hypokalemia, K2.6. 40 mEq oral and 40 mEq IV KCl replaced. Repeat serum magnesium and phosphorus and BMP after 1 hour of completion of electrolyte replacement. CODE STATUS:full code Patient and counseled extensively about different types of CODE STATUS including full code, DNR CCA and DNR CCA. Patients elects for him to be full code. Microbiology Past 72 Hours 07/30/25 18:25 Blood Culture (Wb) - Venous Blood Culture - Preliminary No growth in 48 hours. 07/30/25 16:23 Blood Culture (Wb) - Line Draw Blood Culture - Preliminary No growth in 48 hours. 07/30/25 18:51 Urine, Clean Catch Urine Culture - Preliminary Culture exhibits no growth. 07/30/25 21:57 Mucosa - Nasopharyngeal Respiratory Panel (PCR) - Final Laboratory Results 08/01/25 12:00: Sodium 135, Potassium 3.2 L, Chloride 102, Carbon Dioxide 22.7, Anion Gap 10, BUN 11, Creatinine 0.75, Estim Creat Clear Calc 70.06, Est GFR (MDRD) Non-Af 91, BUN/Creatinine Ratio 14.7, Glucose 100 H, Calcium 7.8, Phosphorus 1.7 L, Magnesium 1.7 08/02/25 03:20: WBC 2.3 L, RBC 2.98 L, Hgb 8.8 L, Hct 25.4 L, MCV 85.2, MCH 29.5, MCHC 34.6, RDW Std Deviation 41.4, RDW Coeff of Macho 13.4, Plt Count 129 L, MPV 10.1, Immature Gran % (Auto) 1.300 H, Neut % (Auto) 56.1, Lymph % (Auto) 18.7 L, [place] % (Auto) 19.6 H, Eos % (Auto) 1.7, Baso % (Auto) 2.6 H, Absolute Neuts (auto) 1.3 L, Absolute Lymphs (auto) 0.43 L, Nucleated RBC % 0, Differential Comment SCANNED, Sodium 136, Potassium 2.9 L, Chloride 103, Carbon Dioxide 24.6, Anion Gap 8, BUN 13, Creatinine 0.80, Estim Creat Clear Calc 70.06, Est GFR (MDRD) Non-Af 89, BUN/Creatinine Ratio 15.9, Glucose 111 H, Calcium 7.3 L, Total Bilirubin 0.48, AST 16, ALT 6, Alkaline Phosphatase 47, Total Protein 4.7 L, Albumin 2.6 L, Globulin 2.1 L, Albumin/Globulin Ratio 1.2 Clinical Impression(s) from Imaging Studies Chest X-Ray 07/30/25 18:25 IMPRESSION: No Acute Findings. Reading Location: [facility] Chest CTA 07/30/25 22:16 IMPRESSION: Right lower lobe segmental branches pulmonary emboli. No evidence of large central or massive pulmonary embolus. No evidence of cardiac strain. Minimal bilateral pleural effusions. Passive atelectatic airspace disease in the lower lobes. Mild interstitial pulmonary congestion. Right Port-A-Cath is in good position. Mild cardiomegaly. Small sliding hiatal hernia. Left renal simple cyst measuring 3.5 cm. Chronic deformity of the posterior arch of the left 11th rib. I discussed the findings with NIGEL Natarajan in the ICU at 12:33 a.m. EST. Reading Location[facility] Charges/Coding Visit Charges Inpatient E&M: 04651 Subs Hosp L3
[2025-08-02] MEDS: BMX LIQUID 180 ML 15 ML PO ×4 (09:37→20:59)
[2025-08-02] MEDS: Vancomycin HCl 1,000 MG in 0.9% Normal Saline (250mL Bag) 250 ML 250 MG IV (09:37)
[2025-08-02] MEDS: TBO-FILGRASTIM 300 MCG/0.5 ML ML SC (09:38)
[2025-08-02] MEDS: Senna/Docusate Sodium 1 Tablet 2 TABLET GT ×2 (10:53→21:01)
[2025-08-02] MEDS: Jevity 1.5. 1,000 ML Bottle 240 ML GT ×3 (10:54→21:00)
--- NOTE | 2025-08-02 13:39 | ONC.CONSULT ---
Assessment & Plan Assessment/Plan (1) Neutropenia with fever: Status: Acute Code(s): D70.9 - Neutropenia, unspecified; R50.81 - Fever presenting with conditions classified elsewhere Plan: Neutropenic fever has resolved. Discussed further management with patient, he will continue chemotherapy as outpatient. Suggest continue current management. Once patient is stable and discharge, will follow as outpatient for further management. HPI Consult Data Date of Service:: 08/02/25 PCP / Referring Provider: Eloina Chi MD Attending: Dr. 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 He was on treatment with weekly chemotherapy?Taxol carbo and radiation therapy. He got cycle 4 weekly on 07/26/2025. He developed fever on 07/30/2025, came to the ER and was found to have neutropenic fever with ANC 0.5. He was started on broad-spectrum antibiotics with G-CSF. He has improved remarkably and ANC is now 1.3. Advanced Directives Do you have a Healthcare Power of Patient Safety Coordinator?: Yes [facility] Medical History Encounter for education Wears glasses Cancer Alcohol use History of steroid therapy Thyroid disease Uses wheelchair Arthritis Prostate disease Low iron DVT (deep venous thrombosis) Back pain Migraine headache Parkinson's disease Orthostatic hypotension Syncope Dietary restriction History of diverticulitis Gastric reflux Chronic cough Former smoker History of pain when walking History of stress test History of echocardiogram Cardiology follow-up encounter Celiac disease Home Medications ?Medication ?Instructions ?Recorded ?Last Taken ?Type levothyroxine 50 mcg tablet 50 mcg PO QDAY 03/05/24 06/30/25 History omeprazole 40 mg capsule,delayed 40 mg PO QDAY 03/05/24 06/30/25 History release tamsulosin 0.4 mg capsule 0.4 mg PO BID 03/05/24 06/30/25 History prucalopride 2 mg tablet 2 mg PO DAILY 05/09/24 06/30/25 History (Motegrity) carbidopa ER 25 mg-levodopa 100 mg 1 tab PO .qid 06/10/25 06/30/25 History tablet,extended release fludrocortisone 0.1 mg tablet 0.1 mg PO QDAY 06/17/25 06/30/25 History lidocaine-prilocaine 2.5 %-2.5 % 1 applic topical ONCE PRN port 06/28/25 Unknown Rx topical cream access 30 days #30 grams ondansetron 8 mg disintegrating 8 mg PO Q8H PRN nausea and 06/28/25 Unknown Rx tablet vomiting #30 tabs MAGIC MOUTH WASH (BMX) 180 mL 15 ml PO .qid PRN pain #180 mL 07/07/25 Unknown Rx suspension sodium chloride 1,000 mg soluble 1,000 mg PO QD-QID PRN electrolyte 07/26/25 Unknown Rx tablet replenishment #30 tabs guaifenesin 100 mg/5 mL oral 200 mg (10 mL) PO Q4H PRN 07/28/25 Unknown Rx liquid (Guaifed (guaifenesin)) congestion #500 mL sennosides 8.6 mg tablet (Shari-rocco) 8.6 mg PO PRN 07/30/25 Unknown History Allergy/AdvReac Type Severity Reaction Status Date / Time gluten Allergy Abd Verified 07/30/25 16:17 cramps/diarrhea aripiprazole AdvReac unknown Verified 07/30/25 16:17 haloperidol AdvReac unknown Verified 07/30/25 16:17 metoclopramide AdvReac unknown Verified 07/30/25 16:17 olanzapine AdvReac unknown Verified 07/30/25 16:17 prochlorperazine AdvReac unknown Verified 07/30/25 16:17 promethazine AdvReac unknown Verified 07/30/25 16:17 Family History Brother Cancer THROAT Mother Leukemia Sister Breast cancer Surgical History Hx of right cataract extraction Hx of left cataract extraction Hx of eye surgery History of hydrocelectomy Hx of hernia repair Hx of colonoscopy Social History household members: significant other housing: house current occupational status: retired Smoking Status: Former smoker alcohol intake: never substance use type: does not use Physical Exam Narrative ECOG 1 Const alert, oriented x3 and no apparent distress HEENT normocephalic HEENT Narrative: +thick saliva in mouth Eyes conjunctivae normal and no scleral icterus Neck Neck Narrative: +L upper jugular node resolved. Chest Chest Narrative: +Port R IC area. Resp clear to auscultation bilaterally Cardio regular rate, regular rhythm, S1 normal heart sound and S2 normal heart sound GI soft to palpation and non-tender GI Narrative: +PEG tube. no CVA tenderness Back/Spine thoracic and lumbar spine normal to inspection Extremity no clubbing, cyanosis or edema Skin no rashes or lesions noted Neuro oriented x3, CN's II-XII intact bilaterally and moves all extremities Neuro Narrative: gait slow. Psych mental status grossly normal Vital Signs Temperature 99.7 F H 08/02/25 12:00 Temperature Source Oral 08/02/25 12:00 Pulse Rate 94 08/02/25 12:00 Pulse Strength Weak (1+) 08/02/25 10:00 Respiratory Rate 13 08/02/25 12:00 Respiratory Effort Normal, Non-Labored 08/02/25 08:00 Respiratory Depth Shallow 08/02/25 02:00 Respiratory Pattern Normal 08/02/25 02:00 Blood Pressure 103/61 08/02/25 12:00 Blood Pressure Mean 75 08/02/25 12:00 Blood Pressure Source Monitor 08/02/25 12:00 Blood Pressure Position Sitting 08/02/25 12:00 Blood Pressure Location Right Arm 08/02/25 12:00 Pulse Ox 95 08/02/25 12:00 Oxygen Delivery Method Room Air 08/02/25 12:00 Oxygen Flow Rate (L/min) 2 07/31/25 07:00 Laboratory Results - last 24 hr 08/02/25 03:20: WBC 2.3 L, RBC 2.98 L, Hgb 8.8 L, Hct 25.4 L, MCV 85.2, MCH 29.5, MCHC 34.6, RDW Std Deviation 41.4, RDW Coeff of Macho 13.4, Plt Count 129 L, MPV 10.1, Immature Gran % (Auto) 1.300 H, Neut % (Auto) 56.1, Lymph % (Auto) 18.7 L, [place] % (Auto) 19.6 H, Eos % (Auto) 1.7, Baso % (Auto) 2.6 H, Absolute Neuts (auto) 1.3 L, Absolute Lymphs (auto) 0.43 L, Nucleated RBC % 0, Differential Comment SCANNED, Sodium 136, Potassium 2.9 L, Chloride 103, Carbon Dioxide 24.6, Anion Gap 8, BUN 13, Creatinine 0.80, Estim Creat Clear Calc 70.06, Est GFR (MDRD) Non-Af 89, BUN/Creatinine Ratio 15.9, Glucose 111 H, Calcium 7.3 L, Total Bilirubin 0.48, AST 16, ALT 6, Alkaline Phosphatase 47, Total Protein 4.7 L, Albumin 2.6 L, Globulin 2.1 L, Albumin/Globulin Ratio 1.2 Microbiology 08/02/25 09:59 Nasal Secretion MRSA (PCR) - Final 07/30/25 18:51 Urine, Clean Catch Urine Culture - Final Culture exhibits no growth. 07/30/25 18:25 Blood Culture (Wb) - Venous Blood Culture - Preliminary No growth in 48 hours. 07/30/25 16:23 Blood Culture (Wb) - Line Draw Blood Culture - Preliminary No growth in 48 hours. Diagnostic Data Chest X-Ray 07/30/25 18:25 IMPRESSION: No Acute Findings. Reading Location: [facility] Chest CTA 07/30/25 22:16 IMPRESSION: Right lower lobe segmental branches pulmonary emboli. No evidence of large central or massive pulmonary embolus. No evidence of cardiac strain. Minimal bilateral pleural effusions. Passive atelectatic airspace disease in the lower lobes. Mild interstitial pulmonary congestion. Right Port-A-Cath is in good position. Mild cardiomegaly. Small sliding hiatal hernia. Left renal simple cyst measuring 3.5 cm. Chronic deformity of the posterior arch of the left 11th rib. I discussed the findings with NIGEL Natarajan in the ICU at 12:33 a.m. EST. Reading Location: [place] [id number]
--- NOTE | 2025-08-02 15:46 | PCM.CONS.GEN ---
Assessment & Plan Assessment/Plan (1) Neutropenia with fever: PLAN: Workup neg. ANC recovered, fever resolved. On vanc/zosyn, plan on 3 days po augmentin 875mg bid at discharge. Will follow, thank you HPI Consult Data Date of Consult: 08/02/25 HPI Narrative Reason for Consultation: neutropenic fever HPI Narrative: CARLOS BARCLAY, is a 80 M with oropharyngeal cancer, on chemo and radiation, has R chest port. Developed fever 07/30 with shakes, came to ED admitted on vanc/zosyn and given GCSF. Feeling better. No sick contacts, no issues with port, no cough or SOB, no abd pain, no n/v/d, no rash, no dysuria. Full ROS performed and neg except as noted above. [facility] Medical History Encounter for education Wears glasses Cancer Alcohol use History of steroid therapy Thyroid disease Uses wheelchair Arthritis Prostate disease Low iron DVT (deep venous thrombosis) Back pain Migraine headache Parkinson's disease Orthostatic hypotension Syncope Dietary restriction History of diverticulitis Gastric reflux Chronic cough Former smoker History of pain when walking History of stress test History of echocardiogram Cardiology follow-up encounter Celiac disease Home Medications ?Medication ?Instructions ?Recorded ?Last Taken ?Type levothyroxine 50 mcg tablet 50 mcg PO QDAY 03/05/24 06/30/25 History omeprazole 40 mg capsule,delayed 40 mg PO QDAY 03/05/24 06/30/25 History release tamsulosin 0.4 mg capsule 0.4 mg PO BID 03/05/24 06/30/25 History prucalopride 2 mg tablet 2 mg PO DAILY 05/09/24 06/30/25 History (Motegrity) carbidopa ER 25 mg-levodopa 100 mg 1 tab PO .qid 06/10/25 06/30/25 History tablet,extended release fludrocortisone 0.1 mg tablet 0.1 mg PO QDAY 06/17/25 06/30/25 History lidocaine-prilocaine 2.5 %-2.5 % 1 applic topical ONCE PRN port 06/28/25 Unknown Rx topical cream access 30 days #30 grams ondansetron 8 mg disintegrating 8 mg PO Q8H PRN nausea and 06/28/25 Unknown Rx tablet vomiting #30 tabs MAGIC MOUTH WASH (BMX) 180 mL 15 ml PO .qid PRN pain #180 mL 07/07/25 Unknown Rx suspension sodium chloride 1,000 mg soluble 1,000 mg PO QD-QID PRN electrolyte 07/26/25 Unknown Rx tablet replenishment #30 tabs guaifenesin 100 mg/5 mL oral 200 mg (10 mL) PO Q4H PRN 07/28/25 Unknown Rx liquid (Guaifed (guaifenesin)) congestion #500 mL sennosides 8.6 mg tablet (Shari-rocco) 8.6 mg PO PRN 07/30/25 Unknown History Allergy/AdvReac Type Severity Reaction Status Date / Time gluten Allergy Abd Verified 07/30/25 16:17 cramps/diarrhea aripiprazole AdvReac unknown Verified 07/30/25 16:17 haloperidol AdvReac unknown Verified 07/30/25 16:17 metoclopramide AdvReac unknown Verified 07/30/25 16:17 olanzapine AdvReac unknown Verified 07/30/25 16:17 prochlorperazine AdvReac unknown Verified 07/30/25 16:17 promethazine AdvReac unknown Verified 07/30/25 16:17 Family History Brother Cancer THROAT Mother Leukemia Sister Breast cancer Surgical History Hx of right cataract extraction Hx of left cataract extraction Hx of eye surgery History of hydrocelectomy Hx of hernia repair Hx of colonoscopy Social History household members: significant other housing: house current occupational status: retired Smoking Status: Former smoker alcohol intake: never substance use type: does not use Physical Exam Const alert, oriented x3 and no apparent distress General Appearance: cooperative HEENT normocephalic and head/scalp atraumatic Eyes PERRL and EOMs intact bilaterally Neck supple and No nodes Resp normal air movement and clear to auscultation bilaterally Cardio regular rate and regular rhythm GI soft to palpation, non-tender and non-distended Extremity General Extremity: Negative for edema Skin no rashes or lesions noted Skin Narrative: no pain over R chest port Neuro CN's II-XII intact bilaterally Medical Records Data Medical Nutrition Assessment Dietitian: Malnutrition Criteria Met Start: 07/31/25 11:30 Freq: Status: Active Protocol: Document 07/31/25 11:30 [facility] (Rec: 07/31/25 11:30 SLA [id number]) Nutrition Malnutrition Evidence of Yes Malnutrition Exists Malnutrition (severe Chronic ): Evidenced By Suboptimal Energy Intake (Severe),Weight Loss (Severe) Intake Problem Inadequate Oral Intake Etiology related to oropharyngeal cancer Signs/Symptoms as evidenced by need for PEG/ EN for nutrition Status Active Problem Clinical Problem Acute Disease or Injury Related Malnutrition Etiology related to inadequate oral energy intake d/t oropharyngeal cancer Signs/Symptoms as evidenced by po intake meeting < 75% of est nutritional needs and 3% wt loss in past 5 days. Has started using PEG this week, but not up to goal yet. Status Active Problem Recommendation Dietitian Rec Jevity 1.5 bolus feeds 5x/day during waking hours - Recommendations/ goal of 240 ml per feed w/ 90 ml water flush before Changes and after feedings to provide ~ 1800 ynes / 76 gm pro/ 1812 ml free water per day. Would start day 1 at 50% giving 120 ml formula bolus feeds, day 2 increase to 75 % giving 180 ml formula bolus feeds and increase to goal rate 240 ml formula day 3 as pt tolerated. Continue to follow and monitor for changes in pt nutritional status and make additional rec as indicated . Lab / Micro Data Attestation: I reviewed the patient's lab results. 08/02/25 03:20 08/02/25 03:20 Labs: Laboratory Results - last 24 hr 07/30/25 16:04: Diff Path Review Reviewed 08/01/25 04:10: Diff Path Review N/A 08/02/25 03:20: WBC 2.3 L, RBC 2.98 L, Hgb 8.8 L, Hct 25.4 L, MCV 85.2, MCH 29.5, MCHC 34.6, RDW Std Deviation 41.4, RDW Coeff of Macho 13.4, Plt Count 129 L, MPV 10.1, Immature Gran % (Auto) 1.300 H, Neut % (Auto) 56.1, Lymph % (Auto) 18.7 L, [place] % (Auto) 19.6 H, Eos % (Auto) 1.7, Baso % (Auto) 2.6 H, Absolute Neuts (auto) 1.3 L, Absolute Lymphs (auto) 0.43 L, Nucleated RBC % 0, Differential Comment SCANNED, Sodium 136, Potassium 2.9 L, Chloride 103, Carbon Dioxide 24.6, Anion Gap 8, BUN 13, Creatinine 0.80, Estim Creat Clear Calc 70.06, Est GFR (MDRD) Non-Af 89, BUN/Creatinine Ratio 15.9, Glucose 111 H, Calcium 7.3 L, Total Bilirubin 0.48, AST 16, ALT 6, Alkaline Phosphatase 47, Total Protein 4.7 L, Albumin 2.6 L, Globulin 2.1 L, Albumin/Globulin Ratio 1.2 Micro: Microbiology 08/02/25 09:59 Nasal Secretion MRSA (PCR) - Final 07/30/25 18:51 Urine, Clean Catch Urine Culture - Final Culture exhibits no growth. 07/30/25 18:25 Blood Culture (Wb) - Venous Blood Culture - Preliminary No growth in 48 hours. 07/30/25 16:23 Blood Culture (Wb) - Line Draw Blood Culture - Preliminary No growth in 48 hours.
[2025-08-02] MEDS: Sodium Chloride 0.65% 1 SPRAY SPRAY.BTL NASAL (17:02)
[2025-08-02] MEDS: Vancomycin Trough/Random Due 1 LAB MC (20:45)
[2025-08-02 21:49] LABS: Vancomycin, Trough Level 14.3 ug/mL (5.0-15.0)
[2025-08-02] MEDS: Vancomycin HCl 1,250 MG in 0.9% Normal Saline (250mL Bag) 250 ML 167 MG IV (23:25)
--- NOTE | 2025-08-02 23:29 | PCM.RX.CS ---
Consult Antibiotic Management Pharmacy has been consulted to manage selected antibiotic: Vancomycin Type of Intervention Type of Consult: Follow-up Labs Labs: Sodium 136 mmol/L (133-145) 08/02/25 03:20 Potassium 2.9 mmol/L (3.3-5.1) L 08/02/25 03:20 Chloride 103 mmol/L (98-108) 08/02/25 03:20 Carbon Dioxide 24.6 mmol/L (21.0-32.0) 08/02/25 03:20 Anion Gap 8 (5-15) 08/02/25 03:20 BUN 13 mg/dL (4-19) 08/02/25 03:20 Creatinine 0.80 mg/dL (0.70-1.20) 08/02/25 03:20 Est GFR (MDRD) Non-Af 89 (>60) 08/02/25 03:20 BUN/Creatinine Ratio 15.9 RATIO (10-20) 08/02/25 03:20 Glucose 111 mg/dL (70-99) H 08/02/25 03:20 Vancomycin Trough 14.3 ug/mL (5.0-15.0) 08/02/25 21:06 Microbiology Microbiology: Microbiology 08/02/25 09:59 Nasal Secretion MRSA (PCR) - Final 07/30/25 18:51 Urine, Clean Catch Urine Culture - Final Culture exhibits no growth. 07/30/25 18:25 Blood Culture (Wb) - Venous Blood Culture - Preliminary No growth in 48 hours. 07/30/25 16:23 Blood Culture (Wb) - Line Draw Blood Culture - Preliminary No growth in 48 hours. 07/30/25 21:57 Mucosa - Nasopharyngeal Respiratory Panel (PCR) - Final Goal Trough Goal Trough: 15-20 mcg/mL Pharmacy Plan for Drug Dosing Pharmacy Plan for Drug Dosing: Pharmacy Service will continue to monitor and adjust dosing as required. TROUGH 14.3 @ 11.5 HOURS. INCREASE TO 1250MG Q12H AND DRAW TROUGH PRIOR TO 4TH DOSE Follow-Up Labs Follow-Up Labs: Trough: Vancomycin Date/Time Labs Ordered Labs to be done on [date and time ordered]: 08/04 @ 1030
[2025-08-03 02:30] VITALS: BP 93/46; PULSE 91; RESP 18; TEMP 37.1; O2SAT 96
[2025-08-03 02:39] VITALS: BMI 24.7
[2025-08-03] MEDS: 0.9% Normal Saline (500mL Bag) 500 ML 999 ML IV (03:17)
[2025-08-03] MEDS: 0.9% Saline Lock 10 ML Syringe IV (03:19)
[2025-08-03 04:00] VITALS: BP 112/55
[2025-08-03 04:21] VITALS: BMI 24.7
[2025-08-03] MEDS: Lactobacillis Acidophilus 1 CAP GT ×3 (06:11→22:28)
[2025-08-03] MEDS: Jevity 1.5. 1,000 ML Bottle 240 ML GT ×4 (06:11→22:29)
[2025-08-03] MEDS: Chlorhexidine 480 ML 15 ML PO ×3 (06:13→22:31)
[2025-08-03] MEDS: Piperacil/Tazobactam 3.375 GM in 0.9% Normal Saline (50mL MB+) 50 ML IV ×3 (06:13→22:34)
[2025-08-03] MEDS: Na Biphos/Potassium Phosphate PACKET 1 PACKET PO ×2 (06:13→14:10)
[2025-08-03 08:02] VITALS: O2SAT 92
--- NOTE | 2025-08-03 08:42 | SP.MBSS_ITS ---
Modified Barium Swallow
--- NOTE | 2025-08-03 08:42 | ST.MBS ---
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 UGI endoscopy 06/30/25 for PEG placement revealing irregular Z-line, gastritis, and small hiatal hernia. He has been receiving chemoradiation treatment since 07/05/2025. Pt currently hospitalized for neutropenia w/ fever, admitted 08/01/2025. Dysphagia Hx: Minimal pain in the back of his tongue at all times; otherwise, no odynophagia. Mild hypogeusia and hx of anosmia. Per , pt is more hoarse than in the past. Pt consumes Regular textures / Thin liquids. Pt denies sensation of retention or difficulty swallowing food/drink. , Janel, reports some coughing when drinking large volumes, especially if drinking quickly prior to taking PD medication. BSE in December of 2024 revealed excrescence in back of throat and recommended ENT consult, which began his cancer work up above. BSE 07/02/2025 revealed mild oropharyngeal dysphagia and recommended Regular textures / Thin liquids w/ the following compensatory strategies: Small bites/sips, Slow rate, Sips one at a time, Sit upright during and 30 min after po intake. MBSS 07/08/2025 revealed mild-moderate oropharyngeal dysphagia w/ silent aspiration of thin liquids and recommendations for Regular textures / Thin liquids with the following compensatory strategies: Medications whole in puree, Intermittent cough and re-swallow, Small Bites, Small Sips (Effortful/Hard Swallows, Sips 1 at a Time), Slow Rate, Multiple Swallows (Double Swallows), Alternate bites/solids and sips/liquids, Sitting upright and Remain sitting upright for 30 minutes after PO intake. Pt is recommended for repeat MBSS today to re-assess swallow function and risk for aspiration during current hospitalization for neutropenia w/ fever. Other PMH: Parkinson's disease (managed w/ medication), Alcohol use, Thyroid disease, DVT, Orthostatic hypotension, Syncope, Hx of diverticulitis, Gastric reflux, Hx of diverticulitis, Former smoker, Celiac disease - See EMR for full PMH. 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 He lives at home w/ his . Current Diet Ordered: Puree textures / Mildly thick liquids by tsp Dentition: Natural Teeth Mental Status: Impaired (Some confusion, did not impact exam) Respiratory Status: Oxygenating on Room Air Penetration-Aspiration Scale Penetration-Aspiration Scale: OBJECTIVE ASSESSMENT OF SWALLOW FUNCTION (QUANTITATIVE ? PER TRIAL): PENETRATION / ASPIRATION SCALE (GUTIERREZ): 1 = does not enter airway 2 = enters airway/above vocal folds/ejected 3 = enters airway/above vocal folds/not ejected 4 = enters airway/contacts vocal folds/ejected 5 = enters airway/contacts vocal folds/not ejected 6 = enters airway/below vocal folds/ejected 7 = enters airway/below vocal folds/not ejected despite effort 8 = enters airway/below vocal folds/no effort VIDEOFLOROSCOPIC SCALE SCORE (GUTIERREZ): Grade I = aspiration of material that has penetrated into the laryngeal vestibule, intact cough reflex Grade II = aspiration < 10 % of the bolus, intact cough reflex Grade III = aspiration of < 10 % of the bolus, reduced cough reflex or aspiration of > 10 % of the bolus, intact cough reflex Grade IV = aspiration of > 10 % of the bolus, reduced cough reflex Penetration-Aspiration Scale Score [place] Thick Liquid via teaspoon: Result: 3= enters airways/above vocal folds/not ejected [place] Thick Liquid via teaspoon Trial 2: Result: 3= enters airways/above vocal folds/not ejected Comment: Effortful swallow = not effective. Cued throat clear and re-swallow = somewhat effective. Pudding via teaspoon: Result: 2= enter airway/above vocal folds/ejected [place] Thick Liquid via teaspoon Trial 3: Result: 3= enters airways/above vocal folds/not ejected Comment: Cued throat clear and re-swallow = effective. Thin Liquid via teaspoon: Result: 5= enters airways/contacts vocal folds/not ejected Comment: Cued cough and re-swallow = effective. Oral Phase Labial Seal: No Labial Escape Tongue Control During Bolus Hold: Posterior escape of less than half of bolus Bolus Transport/Lingual Motion: Slowed tongue motion Oral Residue: Residue collection on oral structures Pharyngeal Phase Initiation of Pharyngeal Swallow: Bolus head in pyriforms Soft Palate Elevation: Trace column of contrast/air between soft palate and pharyngeal wall Laryngeal Elevation: Partial superior movement thyroid cart/partial apprx aryt-epig petiole Anterior Hyoid Excursion: Partial anterior movement Epiglottic Movement: Partial inversion Laryngeal Vestibule Closure at Height of Swallow: Incomplete; narrow column of air/contrast in laryngeal vestibule Pharyngeal Stripping Wave: Present - diminished Pharyngoesophageal Segment Opening: Parital distension and partial duration; parital obstruction of flow Tongue Base Retraction: Wide column of contrast between tongue base & post. pharyngeal wall Pharyngeal Residue: Majority of contrast within or on pharyngeal structures Treatment Strategies Effects of treatment strategies attemped:: Cued throat clear and re-swallow = effective. Cued cough and re-swallow = effective. Cued effortful swallow = not effective. Multiple swallows = somewhat effective. Diagnosis/Impression Diagnosis: Moderate-severe oropharyngeal dysphagia R13.12 MBS Impressions: The oral phase is primarily marked by... -Did not assess mastication due to decreased pharyngeal clearance of pudding and concerns for choking. -Decreased bolus control w/ premature posterior loss of liquids to the pyriform sinuses prior to swallow onset. -Slowed tongue motion for A-P transport. -Piecemeal deglutition of pudding. The pharyngeal phase is primarily marked by... -Delayed swallow onset. -Decreased pharyngeal motility due to decreased TB retraction and pharyngeal stripping wave w/ moderate pharyngeal residue of pudding, which somewhat cleared w/ multiple swallows, then further cleared w/ mildly thick liquid wash. -Decreased airway closure due to decreased laryngeal elevation, anterior hyoid excursion, and inconsistent epiglottic inversion. -Laryngeal penetration of thin liquids by tsp to the vocal folds w/o complete ejection. CRTS cued pt to cough and re-swallow to mostly clear penetrated barium. Consistent laryngeal penetration of mildly thick liquids w/o complete ejection. Use of throat clear and re-swallow was most effective in decreasing risk for aspiration. Recommendations Diet: Puree Textures and Mildly Thick Liquids Comment: Oral care before and after meals Encourage pt for intermittent throat clear and re-swallow every few bites/sips PEG available to supplement po intake as needed, currently pt is consuming very limited po intake and relying on PEG tube to meet nutrition/hydration needs Compensatory Strategies: Small Bites, Liquid by Teaspoon Only, Slow Rate, Multiple Swallows, Alternate bites/solids and sips/liquids, Sitting upright and Remain sitting upright for 30 minutes after PO intake Supervision: 1:1 Direct Supervision ( ok to provide supervision if present) Recommend Repeat Modified Barium Swallow: Yes Comment: Repeat MBSS 3 months after completion of chemoradiation to monitor swallow function as the patient is at risk for worsening dysphagia and aspiration risk s/p chemoradiation treatment. Need for Skilled Speech Therapy Services: Yes Comment: Continue per acute ST POC (implement jaw stretch, effortful swallows, Lisa, CTAR). Education Completed: 1. Described result of evaluation., 2. Pt understands evaluation & agrees with goals and treatment plan., 4. Family/caregivers understand evaluation & agree w/ goals & tx plan. and 7. Pt requires further education on strategies & risks. Status Active ST Patient: Active Contact Information [facility] Speech Therapy:: Augusta Ashford M.A. [facility] Speech-Language Pathologist [facility] [address] [place] [address] [email or web address] [phone]
[2025-08-03 10:02] VITALS: BP 102/61; PULSE 101; RESP 20; TEMP 37.5; O2SAT 93
[2025-08-03] MEDS: Senna/Docusate Sodium 1 Tablet 2 TABLET GT (10:09)
[2025-08-03] MEDS: PRUCALOPRIDE SUCCINATE 2 MG TABLET PO (10:09)
[2025-08-03] MEDS: TBO-FILGRASTIM 300 MCG/0.5 ML ML SC (10:19)
--- NOTE | 2025-08-03 10:23 | CASEMGMT ---
Addendum entered by Tatiana Carrillo 08/03/25 10:26: SW made a referral to TCU. Original Note: Social Work SW spoke with the patient and confirmed at DC he would want a SNF referral to [facility] 1st choice and [facility] 2nd choice. Patient confirmed this information. BEA Ruth
--- NOTE | 2025-08-03 10:50 | CASEMGMT ---
Social Work JOSH called the . The reported she wants her to come home at DC with HH. She reported she no longer wants her to DC to a SNF. JOSH informed the JOSH will provide a list of HH agencies. BEA Ruth
--- NOTE | 2025-08-03 11:06 | CASEMGMT ---
Discharge Planning A list of?HH providers including quality and resource use data and consistent with the patient's preferred geographic region, medical needs, and insurance network was created in [employer] Guide.? This list was provided to the SW. Fara Rider Discharge Planning Asst.
--- NOTE | 2025-08-03 11:26 | CASEMGMT ---
Social Work SW provided the patient with a list of?HH providers including quality and resource use data and consistent with the patient's preferred geographic region, medical needs, and insurance network was created in [employer] Guide.? Plan: SW will follow up regarding HH choices. BEA Dorman
[2025-08-03] MEDS: Vancomycin HCl 1,250 MG in 0.9% Normal Saline (250mL Bag) 250 ML 167 MG IV ×2 (11:33→22:33)
[2025-08-03 11:48] LABS: Hematocrit 29.5 % (40-54); Hemoglobin 9.9 g/dL (13.0-16.5); Mean Corp Hgb Conc 33.6 g/dL (32-36); Mean Corpuscular Volume 87.5 fL (80-94); Mean Platelet Vol. 10.6 fl (6.2-12.0); POSITIVE COUNT YES; POSITIVE MORPHOLOGY YES; Platelet Count 152 K/mm3 (150-450); RBC Distribution Width CV 13.9 % (11.6-14.6); RBC Distribution Width SD 43.0 fl (35.1-43.9); Red Blood Count 3.37 M/mm3 (4.6-6.2); White Blood Count 6.6 K/mm3 (4.4-11.0)
[2025-08-03 11:55] LABS: Differential Indicated MANUAL DIFF
[2025-08-03 12:31] LABS: Neutrophil-Band 19 % (0-5); Neutrophil-Segmented 50 % (47-70); Total Cells Counted 100 (MANUAL DIFF)
[2025-08-03 12:32] LABS: Red Cell Morphology NORM C+C NORMAL (NORM C&C)
[2025-08-03 13:49] LABS: AST(SGOT) 28 U/L (<=37); Alanine Aminotransfer ALT/SGPT 15 U/L (<=46); Albumin, Serum 3.0 g/dL (3.4-4.8); Alkaline Phosphatase 60 U/L (40-129); Anion Gap 12 (5-15); BUN 9 mg/dL (4-19); BUN/Creat Ratio 9.1 RATIO (10-20); Calcium,Total 7.7 mg/dL (7.6-11.0); Carbon Dioxide 24.4 mmol/L (21.0-32.0); Chloride 101 mmol/L (98-108); Estimated Creatinine Clearance 54.42 ml/min (50-250); Globulin 2.3 g/dL (2.2-4.2); Glucose 101 mg/dL (70-99); Potassium 2.7 mmol/L (3.3-5.1)
[2025-08-03] MEDS: BMX LIQUID 180 ML 15 ML PO ×2 (14:12→22:30)
[2025-08-03 15:01] VITALS: BP 118/65; PULSE 99; RESP 20; TEMP 37.4; O2SAT 98
--- NOTE | 2025-08-03 15:12 | CASEMGMT ---
NIGEL HUNTER called and notified Pt was starting to get set up with [facility]. Notified SW of this. Pt is deciding between SNF and HHC.
--- NOTE | 2025-08-03 15:18 | CASEMGMT ---
Social Work SW called the and confirmed they want [facility] [place]. The reported they want [facility] [place]. BEA Ruth
[2025-08-03] MEDS: Potassium Phosphate 30 MM in 0.9% Normal Saline (250mL Bag) 250 ML 55 MM IV (15:54)
[2025-08-03] MEDS: Magnesium Chloride 64 MG Delay Rel.Tablet 128 MG PO ×2 (15:56→22:32)
--- NOTE | 2025-08-03 17:19 | PN.HOSP_ITS ---
Reason for Visit
--- NOTE | 2025-08-03 17:19 | PCM.PN.HOSP ---
Reason for Visit Chief Complaint: fever Objective Data Objective Data Vital Signs: Vital Signs Temp Pulse Resp BP Pulse Ox O2 Del Method O2 Flow Rate 99.3 F H 99 20 H 118/65 98 Room Air 2 08/03/25 15:01 08/03/25 15:01 08/03/25 15:01 08/03/25 15:01 08/03/25 15:01 08/03/25 15:01 07/31/25 07:00 Oxygen Flow Rate (L/min) 2 Oxygen Delivery Method Room Air Weight: 162 lb 7.691 oz Body Mass Index (BMI) 24.7 Intake & Output: Intake and Output for Last 24 Hours 08/01/25 08/02/25 08/03/25 23:59 23:59 23:59 Intake Total 2614 / 2614 2394.25 / 2394.25 1900.00 / 1900.00 Output Total 1525 / 1525 1650 / 1650 Balance 1089 / 1089 744.25 / 744.25 1900.00 / 1900.00 Medical Nutrition Assessment Dietitian: Malnutrition Criteria Met Start: 07/31/25 11:30 Freq: Status: Active Protocol: Document 07/31/25 11:30 SLA (Rec: 07/31/25 11:30 [facility] [id number]) Nutrition Malnutrition Evidence of Yes Malnutrition Exists Malnutrition (severe Chronic ): Evidenced By Suboptimal Energy Intake (Severe),Weight Loss (Severe) Intake Problem Inadequate Oral Intake Etiology related to oropharyngeal cancer Signs/Symptoms as evidenced by need for PEG/ EN for nutrition Status Active Problem Clinical Problem Acute Disease or Injury Related Malnutrition Etiology related to inadequate oral energy intake d/t oropharyngeal cancer Signs/Symptoms as evidenced by po intake meeting < 75% of est nutritional needs and 3% wt loss in past 5 days. Has started using PEG this week, but not up to goal yet. Status Active Problem Recommendation Dietitian Rec Jevity 1.5 bolus feeds 5x/day during waking hours - Recommendations/ goal of 240 ml per feed w/ 90 ml water flush before Changes and after feedings to provide ~ 1800 ynes / 76 gm pro/ 1812 ml free water per day. Would start day 1 at 50% giving 120 ml formula bolus feeds, day 2 increase to 75 % giving 180 ml formula bolus feeds and increase to goal rate 240 ml formula day 3 as pt tolerated. Continue to follow and monitor for changes in pt nutritional status and make additional rec as indicated . Lab / Micro Data 08/03/25 11:26 08/03/25 11:26 Labs: Laboratory Results - last 24 hr 08/02/25 21:06: Vancomycin Trough 14.3 08/03/25 11:26: WBC 6.6, RBC 3.37 L, Hgb 9.9 L, Hct 29.5 L, MCV 87.5, MCH 29.4, MCHC 33.6, RDW Std Deviation 43.0, RDW Coeff of Macho 13.9, Plt Count 152, MPV 10.6, Neut % (Auto) Not Reportable, Absolute Neuts (auto) 4.6, Absolute Lymphs (auto) 1.19, Total Counted 100, Neutrophils % (Manual) 50, Band Neutrophils % 19 H, Lymphocytes % (Manual) 18 L, Monocytes % (Manual) 11 H, Metamyelocytes % 2 H, Platelet Estimate ADEQUATE, RBC Morphology NORM C+C, Sodium 137, Potassium 2.7 L*, Chloride 101, Carbon Dioxide 24.4, Anion Gap 12, BUN 9, Creatinine 1.03, Estim Creat Clear Calc 54.42, Est GFR (MDRD) Non-Af 73, BUN/Creatinine Ratio 9.1 L, Glucose 101 H, Calcium 7.7, Total Bilirubin 0.53, AST 28, ALT 15, Alkaline Phosphatase 60, Total Protein 5.4 L, Albumin 3.0 L, Globulin 2.3, Albumin/Globulin Ratio 1.3 Micro: Microbiology 08/02/25 09:59 Nasal Secretion MRSA (PCR) - Final 07/30/25 18:51 Urine, Clean Catch Urine Culture - Final Culture exhibits no growth. 07/30/25 18:25 Blood Culture (Wb) - Venous Blood Culture - Preliminary No growth in 48 hours. 07/30/25 16:23 Blood Culture (Wb) - Line Draw Blood Culture - Preliminary No growth in 48 hours. 07/30/25 21:57 Mucosa - Nasopharyngeal Respiratory Panel (PCR) - Final Physical Exam Narrative Seen and examined Patient has swelling/thick mucus secretions over oropharyngeal and throat region looks better with Peridex. On tube feed through PEG tube. Had BM. No fever. Severe hold for serum potassium more than 5.0 Physical exam General: Alert, Oriented x3, Cooperative HEENT: Atraumatic, PERRLA, EOMI, Normocephalic. Oral: Yellowish patch over left and right lateral margin of anterior tongue. Thick mucoid whitish secretions are less. Oral gingivitis/soreness Neck: Supple, No JVD, Negative Carotid Bruits Chest wall/Lungs: Air entry diminished in bilateral lung bases. Mild crepitations on bases Cardiovascular: Regular rate and rhythm, Normal S1,S2, No M/G/R Abdomen: PEG tube bowel Sounds Present, Soft, Non Tender, Non-Distended : No dysuria. No renal angle tenderness. No suprapubic tenderness. Extremities: Mild leg edema, Capillary Refill Less than 3 Seconds Skin: No rashes, No breakdown Musculoskeletal: Decreased muscle strength of knees and hip joints. No Tenderness to Palpation of Joints or Extremities Neurological: DTR 2+/4. No acute focal neurological deficit. Psych/Mental Status: Flat affect. 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 #Acute febrile neutropenia in the setting of metastatic oropharyngeal cancer Patient is admitted to ICU due to concerns for sepsis and rapid deterioration in light of his immunocompromised state. Admitted with a complaint of fever. He had radiation on day of admission and chemotherapy 4 days ago. Denies any urinary symptoms or any respiratory symptoms or abdominal symptoms. Patient is tachycardic with heart rate of 131. Lactic acid is less than 1. Patient was hydrated hydrate aggressively with IV fluids. Continue IV vancomycin and Zosyn. Neutropenic precautions. consult critical care. 07/31: Low-grade fever today. Tmax 102.0 on 07/30 about 8 PM. Leukopenia, thrombocytopenia and anemia/pancytopenia. ANC 0.9 K suggestive of moderate neutropenia, ALC 0.27/lymphopenia, basophils 2.2%. Does not meet criteria for sepsis. Urine culture exhibits no growth. Respiratory panel negative. 08/01: No fever, Tmax 100.1 F. Still leukopenia, ANC 1.1 K, improved from 0.5 K. Started on Granix. Discussed with pharmacy and Peridex/chlorhexidine oral rinse ordered. Mouth hygiene. Continue antibiotic. ID consult tomorrow AM. 08/02: Tmax 100.4 Fahrenheit on 08/01 evening. ANC 1.2 K, continue Granix today. Continue Peridex and oral hygiene for mouth soreness and mucositis. Oncologist consult requested as per patient's request. He was supposed to start chemotherapy today but it is contraindicated due to neutropenic fever and pancytopenia for now. Cultures are negative so far. ID consulted to narrow down the antibiotic 08/03: No fever. Seen by ID and recommended 3 days of Augmentin 875 mg twice daily at time of discharge. Neutropenia has resolved. Granix discontinued. Patient was seen by oncologist Dr. Collins and recommended to follow-up as an outpatient after discharge to continue chemotherapy as outpatient #PE D dimer ordered due to tachcyardia. D dimer was markedly elevated at ~ 7, so stat CTA chest done which showed pulmonary embolism of the right lower lobe subsegmenal branches. patient started on therapeutic lovenox. 05/31: Continue Lovenox. Shows mild decrease in hemoglobin and platelet count. Platelet count 0.183 on 07/26. 06/01: Platelet count 147K, improved from yesterday. H&H 8.8/25.6%. Bands 8%, metamyelocytes 4%. Pancytopenia since admission due to chemotherapy and radiotherapy 06/02: All 3 cell lines are low. Platelet count 129K. Patient also on Lovenox as mentioned above. #parkinson's disease with Dementia: On levodopa carbidopa #GERD: PPI #Hypothyroidism: On Synthroid #BPH: On Flomax DVT prophylaxis: not indicated as patient started on therapeutic lovenox for newly diagnosed PE Electrolyte abnormality: Hypocalcemia: Calcium 6.9, albumin 3.4. Corrected calcium is 7.4 therefore IV calcium gluconate ordered. 08/01: Severe hypokalemia, K2.6. 40 mEq oral and 40 mEq IV KCl replaced. Repeat serum magnesium and phosphorus and BMP after 1 hour of completion of electrolyte replacement. 08/03: Severe hypokalemia: Hypophosphatemia. IV potassium phosphate ordered. Oral potassium replacement. CODE STATUS:full code Patient and counseled extensively about different types of CODE STATUS including full code, DNR CCA and DNR CCA. Patients elects for him to be full code. Microbiology Past 72 Hours 08/02/25 09:59 Nasal Secretion MRSA (PCR) - Final 07/30/25 18:51 Urine, Clean Catch Urine Culture - Final Culture exhibits no growth. 07/30/25 18:25 Blood Culture (Wb) - Venous Blood Culture - Preliminary No growth in 48 hours. 07/30/25 16:23 Blood Culture (Wb) - Line Draw Blood Culture - Preliminary No growth in 48 hours. Laboratory Results 08/02/25 21:06: Vancomycin Trough 14.3 08/03/25 11:26: WBC 6.6, RBC 3.37 L, Hgb 9.9 L, Hct 29.5 L, MCV 87.5, MCH 29.4, MCHC 33.6, RDW Std Deviation 43.0, RDW Coeff of Macho 13.9, Plt Count 152, MPV 10.6, Neut % (Auto) Not Reportable, Absolute Neuts (auto) 4.6, Absolute Lymphs (auto) 1.19, Total Counted 100, Neutrophils % (Manual) 50, Band Neutrophils % 19 H, Lymphocytes % (Manual) 18 L, Monocytes % (Manual) 11 H, Metamyelocytes % 2 H, Platelet Estimate ADEQUATE, RBC Morphology NORM C+C, Sodium 137, Potassium 2.7 L*, Chloride 101, Carbon Dioxide 24.4, Anion Gap 12, BUN 9, Creatinine 1.03, Estim Creat Clear Calc 54.42, Est GFR (MDRD) Non-Af 73, BUN/Creatinine Ratio 9.1 L, Glucose 101 H, Calcium 7.7, Total Bilirubin 0.53, AST 28, ALT 15, Alkaline Phosphatase 60, Total Protein 5.4 L, Albumin 3.0 L, Globulin 2.3, Albumin/Globulin Ratio 1.3 Clinical Impression(s) from Imaging Studies Chest X-Ray 07/30/25 18:25 IMPRESSION: No Acute Findings. Reading Location: [facility] Chest CTA 07/30/25 22:16 IMPRESSION: Right lower lobe segmental branches pulmonary emboli. No evidence of large central or massive pulmonary embolus. No evidence of cardiac strain. Minimal bilateral pleural effusions. Passive atelectatic airspace disease in the lower lobes. Mild interstitial pulmonary congestion. Right Port-A-Cath is in good position. Mild cardiomegaly. Small sliding hiatal hernia. Left renal simple cyst measuring 3.5 cm. Chronic deformity of the posterior arch of the left 11th rib. I discussed the findings with NIGEL Natarajan in the ICU at 12:33 a.m. EST. Reading [facility] Charges/Coding Visit Charges Inpatient E&M: 54927 Subs Hosp L2
[2025-08-03] MEDS: Potassium Chloride Oral Tablet 20 MEQ 40 MEQ PO ×2 (18:19→22:32)
[2025-08-03 22:24] VITALS: BP 104/53; PULSE 94; RESP 18; TEMP 37.1; O2SAT 94
[2025-08-04 02:38] VITALS: BMI 25.8
[2025-08-04 02:59] VITALS: BP 113/57; PULSE 108; RESP 18; TEMP 37.2; O2SAT 96
[2025-08-04] MEDS: Piperacil/Tazobactam 3.375 GM in 0.9% Normal Saline (50mL MB+) 50 ML IV (05:44)
[2025-08-04] MEDS: Lactobacillis Acidophilus 1 CAP GT (05:45)
[2025-08-04] MEDS: Chlorhexidine 480 ML 15 ML PO (05:46)
[2025-08-04] MEDS: Jevity 1.5. 1,000 ML Bottle 240 ML GT ×3 (05:46→10:48)
[2025-08-04 05:58] LABS: Hematocrit 28.9 % (40-54); Hemoglobin 9.9 g/dL (13.0-16.5); Mean Corp Hgb Conc 34.3 g/dL (32-36); Mean Corpuscular Volume 87.3 fL (80-94); Mean Platelet Vol. 10.2 fl (6.2-12.0); POSITIVE COUNT YES; POSITIVE MORPHOLOGY YES; Platelet Count 159 K/mm3 (150-450); RBC Distribution Width CV 14.1 % (11.6-14.6); RBC Distribution Width SD 43.8 fl (35.1-43.9); Red Blood Count 3.31 M/mm3 (4.6-6.2); White Blood Count 15.5 K/mm3 (4.4-11.0)
[2025-08-04 06:04] LABS: Differential Indicated MANUAL DIFF
[2025-08-04 06:26] LABS: BUN 7 mg/dL (4-19); Estimated Creatinine Clearance 54.42 ml/min (50-250); Glucose 107 mg/dL (70-99)
[2025-08-04 06:27] LABS: Anion Gap 15 (5-15); BUN/Creat Ratio 6.9 RATIO (10-20); Calcium,Total 7.7 mg/dL (7.6-11.0); Carbon Dioxide 22.8 mmol/L (21.0-32.0); Chloride 103 mmol/L (98-108); Potassium 3.0 mmol/L (3.3-5.1)
[2025-08-04 07:45] LABS: Dohle Bodies 2+; Neutrophil-Band 18 % (0-5); Neutrophil-Segmented 59 % (47-70); Nucleated Red Bld Cells,Manual 1 % (0-5); Total Cells Counted 100 (MANUAL DIFF); Toxic Granulation 2+
[2025-08-04 07:48] LABS: Red Cell Morphology NORM C+C NORMAL (NORM C&C)
[2025-08-04 08:10] VITALS: BP 130/75; PULSE 106; RESP 18; TEMP 37.2; O2SAT 93
--- NOTE | 2025-08-04 09:02 | CASEMGMT ---
Addendum entered by Tatiana Carrillo 08/04/25 09:44: SW informed Usha with HH that the has shingles. Usha reported the nurse should be able to go to the home 2 to 3 times a week. Original Note: Social Work SW spoke with [facility] and they can accept the patient. The SOC is tomorrow. PT, ST, OT, SW and SN were ordered. BEA Ruth
[2025-08-04] MEDS: Potassium Chloride Oral Soln 20 MEQ/15 ML UDC 40 MEQ GT (10:02)
[2025-08-04] MEDS: PRUCALOPRIDE SUCCINATE 2 MG TABLET PO (10:04)
--- NOTE | 2025-08-04 10:04 | CASEMGMT ---
Social Work SW spoke with the . The reported she plans on hiring private caregivers through [facility]. The does not want a referral to palliative care. The requested an order for a hospital bed. The reported she will transport the patient home and she will have help with this. Plan: SW will order a hospital bed. BEA Ruth
[2025-08-04] MEDS: BMX LIQUID 180 ML 15 ML PO (10:07)
[2025-08-04] MEDS: Magnesium Chloride 64 MG Delay Rel.Tablet 128 MG PO (10:07)
--- NOTE | 2025-08-04 10:36 | DCINST_ITS ---
Discharge Instructions
--- NOTE | 2025-08-04 10:36 | PCM.DC ---
Discharge Instructions DC O2, CPAP, BIPAP needs Home O2 Discharge instructions: No Follow Up Care Test Results: Test results from this visit will be discussed in further detail at your follow-up appointment, if applicable. Discharge Plan Admission Admit Date/Time: 07/30/25 19:55 Attending Provider: Dev Reardon Primary Care Provider: Eloina Chi Consulting Providers: Rain Gallagher; Alan Galaviz; Marco Carrero; Vicente Schofield; Tez Obando; Vaughn Garduno; Jamarcus Vaz; Marya Moss; Sundar Reid; Latasha Gutierrez; James Bangura; Debbie Frausto; Pato Cerda; Smooth Fall; Christelle Camejo; Brian Mendoza; Brady Pemberton; Lamont Armenta; Alva Langford; Pinky Santana; Kathrine Cox; Antonette Burroughs; Jc South; Johnathan Witt; Micah,Iain; Heather Velarde; Elinor Cohn; Kusum Avina; Iain Bone; Brady Aldana; Omer Woods; Efrem Tanner; Hiral Carlin; Shaylee,Carlos; Dhesi,Beltran; Marilee Orourke; Marisol Mackey; Zaira Henriquez; Anya,Samdixon; Russell Leach; Roxanne,Ihsan; Romaine,Spenser; Jordna,Nelida; Robert Kessler; Jamarcus Tao; Simone Collins; Jonathan Cutris; Maryjo Nichole; Alan Childress; Angel Mejia; Chester Sharpe; En Guerin; Jayashree Anderson MEDICAL CARE ADMINISTRATOR Discharge Orders/Prescriptions Prescriptions: New chlorhexidine gluconate 0.12 % Mouthwash 15 ml PO TID 84 Days Qty: 1893 0RF potassium chloride 20 mEq/15 mL Liquid 40 meq G-tube BID 7 Days Qty: 420 0RF L.acidoph,saliva-B.bif-S.therm 175 mg Capsule 1 cap G-tube TID Qty: 0 0RF Rx Instructions: for 2 weeks Jevity 1.5 Federico 0.06 gram-1.5 kcal/mL Liquid 240 ml G-tube 5X/DAY Qty: 0 0RF sennosides-docusate sodium [Stimulant Laxative Plus] 8.6-50 mg Tablet 2 tab G-tube BID Qty: 0 0RF amoxicillin-pot clavulanate 875-125 mg tablet 1 tab PO BID 3 Days Qty: 6 0RF Continued levothyroxine 50 mcg tablet 50 mcg PO QDAY omeprazole 40 mg capsule,delayed release(DR/EC) 40 mg PO QDAY tamsulosin 0.4 mg capsule 0.4 mg PO BID carbidopa-levodopa 25-100 mg tablet extended release 1 tab PO .qid fludrocortisone 0.1 mg tablet 0.1 mg PO QDAY ondansetron 8 mg tablet,disintegrating 8 mg PO Q8H PRN (Reason: nausea and vomiting) Qty: 30 1RF lidocaine-prilocaine 2.5-2.5 % cream 1 applic topical ONCE PRN (Reason: port access) 30 Days Qty: 30 2RF sodium chloride 1,000 mg tablet,soluble 1,000 mg PO QD-QID PRN (Reason: electrolyte replenishment) Qty: 30 2RF MAGIC MOUTH WASH (BMX) 180 mL suspension 15 ml PO .qid PRN (Reason: pain) Qty: 180 5RF Rx Instructions: diphenhydramine 12.5 mg/5 mL oral liquid 60 mL; aluminum-mag hydroxide-simethicone 400 mg-400 mg-40 mg/5 mL oral susp 60 mL; Lidocaine Viscous 2 % mucosal solution 60 mL; Per 180 mL guaifenesin [Guaifed (guaifenesin)] 100 mg/5 mL liquid 200 mg PO Q4H PRN (Reason: congestion) Qty: 500 3RF Rx Instructions: take 10 mL q4 hrs prn congestion prucalopride [Motegrity] 2 mg tablet 2 mg PO DAILY Discontinued sennosides [Shari-rocco] 8.6 mg tablet 8.6 mg PO PRN Referrals / Follow Up: Eloina Chi MD [Primary Care Provider, Family Practice] Simone Collins MD [Med Staff - Active Staff, Oncology] - Within 2 Weeks Disposition Disposition (needs filled in before D/C Order can be placed): Home Health Service
--- NOTE | 2025-08-04 10:43 | PCM.DC.SUM ---
Providers Date of Admission: 07/30/25 Date of Discharge: 08/04/25 Primary Care Physician: Eloina Chi MD Consultations 07/30/25 20:30 Consult: Exchange Operator / Pulmonary Medicine Routine Consulting Provider: Intensivists/Pulmonary Med Reason for Consult: sepsis due to febrile neutropenia EMERGENT Consult: No Notified: Yes Date Notified: 07/30/25 Time Notified: 21:21 Method of Notification: Text 08/01/25 08:46 Consult: Infectious Disease Routine Consulting Provider: Alan Galaviz Reason for Consult: NEURTOPENIC Fever, oropharygeal ca on CT/RT EMERGENT Consult: No Notified: Yes Date Notified: 08/01/25 Time Notified: 08:46 Method of Notification: Text 08/02/25 08:24 Consult: Oncology/Hematology Routine Consulting Provider: [facility] ([facility]) Reason for Consult: neutropenic fever EMERGENT Consult: No Notified: Yes Date Notified: 08/02/25 Time Notified: 08:25 Method of Notification: Verbal Reason For Visit: FEBRILE NEUTROPENIA Diagnosis Discharge Diagnosis (1) Encephalopathy acute: Status: Acute Code(s): G93.40 - Encephalopathy, unspecified (2) Neutropenia with fever: Status: Acute Code(s): D70.9 - Neutropenia, unspecified; R50.81 - Fever presenting with conditions classified elsewhere Plan 80-year-old gentleman with history 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 #Acute febrile neutropenia in the setting of metastatic oropharyngeal cancer Patient is admitted to ICU due to concerns for sepsis and rapid deterioration in light of his immunocompromised state. Admitted with a complaint of fever. He had radiation on day of admission and chemotherapy 4 days ago. Denies any urinary symptoms or any respiratory symptoms or abdominal symptoms. Patient is tachycardic with heart rate of 131. Lactic acid is less than 1. Patient was hydrated hydrate aggressively with IV fluids. Continue IV vancomycin and Zosyn. Neutropenic precautions. consult critical care. 07/31: Low-grade fever today. Tmax 102.0 on 07/30 about 8 PM. Leukopenia, thrombocytopenia and anemia/pancytopenia. ANC 0.9 K suggestive of moderate neutropenia, ALC 0.27/lymphopenia, basophils 2.2%. Does not meet criteria for sepsis. Urine culture exhibits no growth. Respiratory panel negative. 08/01: No fever, Tmax 100.1 F. Still leukopenia, ANC 1.1 K, improved from 0.5 K. Started on Granix. Discussed with pharmacy and Peridex/chlorhexidine oral rinse ordered. Mouth hygiene. Continue antibiotic. ID consult tomorrow AM. 08/02: Tmax 100.4 Fahrenheit on 08/01 evening. ANC 1.2 K, continue Granix today. Continue Peridex and oral hygiene for mouth soreness and mucositis. Oncologist consult requested as per patient's request. He was supposed to start chemotherapy today but it is contraindicated due to neutropenic fever and pancytopenia for now. Cultures are negative so far. ID consulted to narrow down the antibiotic 08/03: No fever. Seen by ID and recommended 3 days of Augmentin 875 mg twice daily at time of discharge. Neutropenia has resolved. Granix discontinued. Patient was seen by oncologist Dr. Collins and recommended to follow-up as an outpatient after discharge to continue chemotherapy as outpatient 08/04: No fever. Patient discharged on 3 days of Augmentin 875 mg twice daily. #PE D dimer ordered due to tachcyardia. D dimer was markedly elevated at ~ 7, so stat CTA chest done which showed pulmonary embolism of the right lower lobe subsegmenal branches. patient started on therapeutic lovenox. 07/31: Continue Lovenox. Shows mild decrease in hemoglobin and platelet count. Platelet count 0.183 on 07/26. 08/01: Platelet count 147K, improved from yesterday. H&H 8.8/25.6%. Bands 8%, metamyelocytes 4%. 08/04: Patient has leukocytosis probably side effect of Granix. Granix was discontinued yesterday 08/04: Patient given a prescription for starter pack of Eliquis 10 mg p.o. twice daily for 1 week and then 5 mg twice daily to continue. I did discuss the anticoagulant with Dr. Collins. Follow-up in oncology office Pancytopenia since admission due to chemotherapy and radiotherapy 06/02: All 3 cell lines are low. Platelet count 129K. Patient also on Lovenox as mentioned above. 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 General mild acute malnutrition due to chemotherapeutic and radiation toxic effect. patient n.p.o. and has PEG tube #GERD: PPI #Hypothyroidism: On Synthroid #BPH: On Flomax DVT prophylaxis: not indicated as patient started on therapeutic lovenox for newly diagnosed PE Electrolyte abnormality: Hypocalcemia: Calcium 6.9, albumin 3.4. Corrected calcium is 7.4 therefore IV calcium gluconate ordered. 08/01: Severe hypokalemia, K2.6. 40 mEq oral and 40 mEq IV KCl replaced. Repeat serum magnesium and phosphorus and BMP after 1 hour of completion of electrolyte replacement. 08/03: Severe hypokalemia: Hypophosphatemia. IV potassium phosphate ordered. Oral potassium replacement. 08/04: Mild hypokalemia, prescription given for potassium supplement. Hypomagnesemia and hypophosphatemia corrected. CODE STATUS:full code Patient and counseled extensively about different types of CODE STATUS including full code, DNR CCA and DNR CCA. Patients elects for him to be full code. Discharge medication reconciliation done. Discharge follow-up instructions completed. Discharge process discussed with the patient and all questions were answered to patient's satisfaction. Follow with PCP in 1 to 2 weeks Total time spent, exact 35 minutes on discharge meds reconciliation, examination, coordination of care with nurses and ancillary staff, review of imaging and blood test and discussion with the patient on follow-up instructions. Microbiology Past 72 Hours 08/02/25 09:59 Nasal Secretion MRSA (PCR) - Final 07/30/25 18:51 Urine, Clean Catch Urine Culture - Final Culture exhibits no growth. 07/30/25 18:25 Blood Culture (Wb) - Venous Blood Culture - Preliminary No growth in 48 hours. 07/30/25 16:23 Blood Culture (Wb) - Line Draw Blood Culture - Preliminary No growth in 48 hours. Laboratory Results 08/02/25 21:06: Vancomycin Trough 14.3 08/03/25 11:26: WBC 6.6, RBC 3.37 L, Hgb 9.9 L, Hct 29.5 L, MCV 87.5, MCH 29.4, MCHC 33.6, RDW Std Deviation 43.0, RDW Coeff of Macho 13.9, Plt Count 152, MPV 10.6, Neut % (Auto) Not Reportable, Absolute Neuts (auto) 4.6, Absolute Lymphs (auto) 1.19, Total Counted 100, Neutrophils % (Manual) 50, Band Neutrophils % 19 H, Lymphocytes % (Manual) 18 L, Monocytes % (Manual) 11 H, Metamyelocytes % 2 H, Platelet Estimate ADEQUATE, RBC Morphology NORM C+C, Sodium 137, Potassium 2.7 L*, Chloride 101, Carbon Dioxide 24.4, Anion Gap 12, BUN 9, Creatinine 1.03, Estim Creat Clear Calc 54.42, Est GFR (MDRD) Non-Af 73, BUN/Creatinine Ratio 9.1 L, Glucose 101 H, Calcium 7.7, Total Bilirubin 0.53, AST 28, ALT 15, Alkaline Phosphatase 60, Total Protein 5.4 L, Albumin 3.0 L, Globulin 2.3, Albumin/Globulin Ratio 1.3 Clinical Impression(s) from Imaging Studies Chest X-Ray 07/30/25 18:25 IMPRESSION: No Acute Findings. Reading Location: [facility] Chest CTA 07/30/25 22:16 IMPRESSION: Right lower lobe segmental branches pulmonary emboli. No evidence of large central or massive pulmonary embolus. No evidence of cardiac strain. Minimal bilateral pleural effusions. Passive atelectatic airspace disease in the lower lobes. Mild interstitial pulmonary congestion. Right Port-A-Cath is in good position. Mild cardiomegaly. Small sliding hiatal hernia. Left renal simple cyst measuring 3.5 cm. Chronic deformity of the posterior arch of the left 11th rib. I discussed the findings with NIGEL Natarajan in the ICU at 12:33 a.m. EST. Reading Location: [facility] Medications at Discharge Home Medications levothyroxine 50 mcg tablet 50 mcg PO QDAY 03/05/24 omeprazole 40 mg capsule,delayed release 40 mg PO QDAY 03/05/24 tamsulosin 0.4 mg capsule 0.4 mg PO BID 03/05/24 prucalopride 2 mg tablet (Motegrity) 2 mg PO DAILY 05/09/24 carbidopa ER 25 mg-levodopa 100 mg tablet,extended release 1 tab PO .qid 06/10/25 fludrocortisone 0.1 mg tablet 0.1 mg PO QDAY 06/17/25 lidocaine-prilocaine 2.5 %-2.5 % topical cream 1 applic topical ONCE PRN port access 30 days #30 grams 06/28/25 ondansetron 8 mg disintegrating tablet 8 mg PO Q8H PRN nausea and vomiting #30 tabs 06/28/25 MAGIC MOUTH WASH (BMX) 180 mL suspension 15 ml PO .qid PRN pain #180 mL 07/07/25 sodium chloride 1,000 mg soluble tablet 1,000 mg PO QD-QID PRN electrolyte replenishment #30 tabs 07/26/25 guaifenesin 100 mg/5 mL oral liquid (Guaifed (guaifenesin)) 200 mg (10 mL) PO Q4H PRN congestion #500 mL 07/28/25 L.acidophil,salivari-Bifido bifidum-Strep thermoph 175 mg capsule 1 cap G-tube TID #0 caps 08/04/25 amoxicillin 875 mg-potassium clavulanate 125 mg tablet 1 tab PO BID 3 days #6 tabs 08/04/25 apixaban 5 mg (74 tabs) tablets in a dose pack (Eliquis DVT-PE Treat 30D Start) 5 mg PO BID #74 tabs 08/04/25 chlorhexidine gluconate 0.12 % mouthwash 15 ml PO TID 12 weeks #1,893 mL 08/04/25 lactose-reduced food with fiber 0.06 gram-1.5 kcal/mL oral liquid (Jevity 1.5 Ynes) 240 ml G-tube 5X/DAY #0 mL 08/04/25 potassium chloride 20 mEq/15 mL oral liquid 40 meq (30 mL) G-tube BID 1 week #420 mL 08/04/25 sennosides 8.6 mg-docusate sodium 50 mg tablet (Stimulant Laxative Plus) 2 tab G-tube BID #0 tabs 08/04/25 Physical Exam Narrative Seen and examined No fever last 18 hours. Last temperature 100.4 ?F on 10/19, about 72 hours ago Patient has swelling/thick mucus secretions over oropharyngeal and throat region looks better with Peridex. On tube feed through PEG tube. Had BM. No fever. Severe hold for serum potassium more than 5.0 Physical exam General: Alert, Oriented x3, Cooperative HEENT: Atraumatic, PERRLA, EOMI, Normocephalic. Oral: Yellowish patch over left and right lateral margin of anterior tongue. Thick mucoid whitish secretions are less. Oral gingivitis/soreness Neck: Supple, No JVD, Negative Carotid Bruits Chest wall/Lungs: Air entry diminished in bilateral lung bases. Mild crepitations on bases Cardiovascular: Regular rate and rhythm, Normal S1,S2, No M/G/R Abdomen: PEG tube bowel Sounds Present, Soft, Non Tender, Non-Distended : No dysuria. No renal angle tenderness. No suprapubic tenderness. Extremities: Mild leg edema, Capillary Refill Less than 3 Seconds Skin: No rashes, No breakdown Musculoskeletal: Decreased muscle strength of knees and hip joints. No Tenderness to Palpation of Joints or Extremities Neurological: DTR 2+/4. No acute focal neurological deficit. Psych/Mental Status: Flat affect. Medical Records Data Medical Nutrition Assessment Dietitian: Malnutrition Criteria Met Start: 07/31/25 11:30 Freq: Status: Active Protocol: Document 07/31/25 11:30 [facility] (Rec: 07/31/25 11:30 [facility] [id number]) Nutrition Malnutrition Evidence of Yes Malnutrition Exists Malnutrition (severe Chronic ): Evidenced By Suboptimal Energy Intake (Severe),Weight Loss (Severe) Intake Problem Inadequate Oral Intake Etiology related to oropharyngeal cancer Signs/Symptoms as evidenced by need for PEG/ EN for nutrition Status Active Problem Clinical Problem Acute Disease or Injury Related Malnutrition Etiology related to inadequate oral energy intake d/t oropharyngeal cancer Signs/Symptoms as evidenced by po intake meeting < 75% of est nutritional needs and 3% wt loss in past 5 days. Has started using PEG this week, but not up to goal yet. Status Active Problem Recommendation Dietitian Rec Jevity 1.5 bolus feeds 5x/day during waking hours - Recommendations/ goal of 240 ml per feed w/ 90 ml water flush before Changes and after feedings to provide ~ 1800 ynes / 76 gm pro/ 1812 ml free water per day. Would start day 1 at 50% giving 120 ml formula bolus feeds, day 2 increase to 75 % giving 180 ml formula bolus feeds and increase to goal rate 240 ml formula day 3 as pt tolerated. Continue to follow and monitor for changes in pt nutritional status and make additional rec as indicated . Weight / BMI Weight Weight: 169 lb 12.095 oz Body Mass Index (BMI) 25.8 ABG / Lab / Microbiology Data 08/04/25 05:12 08/04/25 05:12 Laboratory: Laboratory Results - last 24 hr 08/03/25 11:26: WBC 6.6, RBC 3.37 L, Hgb 9.9 L, Hct 29.5 L, MCV 87.5, MCH 29.4, MCHC 33.6, RDW Std Deviation 43.0, RDW Coeff of Macho 13.9, Plt Count 152, MPV 10.6, Neut % (Auto) Not Reportable, Absolute Neuts (auto) 4.6, Absolute Lymphs (auto) 1.19, Total Counted 100, Neutrophils % (Manual) 50, Band Neutrophils % 19 H, Lymphocytes % (Manual) 18 L, Monocytes % (Manual) 11 H, Metamyelocytes % 2 H, Platelet Estimate ADEQUATE, RBC Morphology NORM C+C, Sodium 137, Potassium 2.7 L*, Chloride 101, Carbon Dioxide 24.4, Anion Gap 12, BUN 9, Creatinine 1.03, Estim Creat Clear Calc 54.42, Est GFR (MDRD) Non-Af 73, BUN/Creatinine Ratio 9.1 L, Glucose 101 H, Calcium 7.7, Total Bilirubin 0.53, AST 28, ALT 15, Alkaline Phosphatase 60, Total Protein 5.4 L, Albumin 3.0 L, Globulin 2.3, Albumin/Globulin Ratio 1.3 08/04/25 05:12: WBC 15.5 H, RBC 3.31 L, Hgb 9.9 L, Hct 28.9 L, MCV 87.3, MCH 29.9, MCHC 34.3, RDW Std Deviation 43.8, RDW Coeff of Macho 14.1, Plt Count 159, MPV 10.2, Neut % (Auto) Not Reportable, Absolute Neuts (auto) 12.0 H, Absolute Lymphs (auto) 1.71, Total Counted 100, Neutrophils % (Manual) 59, Band Neutrophils % 18 H, Lymphocytes % (Manual) 11 L, Monocytes % (Manual) 10, Basophils % (Manual) 1, Myelocytes % 1 H, Nucleated RBCs/100 WBC 1, Diff Path Review May foll, Toxic Granulation 2+, Dohle Bodies 2+, Platelet Estimate ADEQUATE, RBC Morphology NORM C+C, Sodium 141, Potassium 3.0 L, Chloride 103, Carbon Dioxide 22.8, Anion Gap 15, BUN 7, Creatinine 1.03, Estim Creat Clear Calc 54.42, Est GFR (MDRD) Non-Af 73, BUN/Creatinine Ratio 6.9 L, Glucose 107 H, Calcium 7.7, Phosphorus 3.9 Microbiology: Microbiology 08/02/25 09:59 Nasal Secretion MRSA (PCR) - Final 07/30/25 18:51 Urine, Clean Catch Urine Culture - Final Culture exhibits no growth. 07/30/25 18:25 Blood Culture (Wb) - Venous Blood Culture - Preliminary No growth in 48 hours. 07/30/25 16:23 Blood Culture (Wb) - Line Draw Blood Culture - Preliminary No growth in 48 hours. 07/30/25 21:57 Mucosa - Nasopharyngeal Respiratory Panel (PCR) - Final D/C Instructions DC O2, CPAP, BIPAP Needs Home O2 Discharge instructions: No Meaningful Use Info Meaningful Use Meaningful Use Diagnoses (Choose all that apply): None applicable Discharge Plan Admission Admit Date/Time: 07/30/25 19:55 Attending Provider: Dev Reardon Primary Care Provider: Eloina Chi Consulting Providers: Rain Gallagher; Alan Galaviz; Marco Carrero; Vicente Schofield; Tez Obando; Vaughn Garduno; Jamarcus Vaz; Marya Moss; Sundar Reid; Latasha Gutierrez; James Bangura; Debbie Frausto; Pato Cerda; Smooth Fall; Christelle Camejo; Brian Mendoza; Brady Pemberton; Lamont Armenta; Alva Langford; Pinky Santana; Kathrine Cox; Antonette Burroughs; Jc South; Johnathan Witt; aIin Obrien; Heather Velarde; Elinor Cohn; Kusum Avina; Iain Bone; Brady Aldana; Omer Woods; Efrem Tanner; Hiral Carlin; Carlos June; Beltran Cheatham; Marilee Orourke; Marisol Mackey; Zaira Henriquez; AnyaSamdixon; Russell Leach; Roxanne,Ihsan; Spenser Gavin; Nelida Ortega; Robert Kessler; Jamarcus Tao; Simone Collins; Jonathan Curtis; Maryjo Nichole; Alan Childress; Angel Mejia; Chester Sharpe; En Guerin; Jayashree Anderson CONTENT DEVELOPER Discharge Orders/Prescriptions Prescriptions: New chlorhexidine gluconate 0.12 % Mouthwash 15 ml PO TID 84 Days Qty: 1893 0RF potassium chloride 20 mEq/15 mL Liquid 40 meq G-tube BID 7 Days Qty: 420 0RF L.acidoph,saliva-B.bif-S.therm 175 mg Capsule 1 cap G-tube TID Qty: 0 0RF Rx Instructions: for 2 weeks Jevity 1.5 Ynes 0.06 gram-1.5 kcal/mL Liquid 240 ml G-tube 5X/DAY Qty: 0 0RF sennosides-docusate sodium [Stimulant Laxative Plus] 8.6-50 mg Tablet 2 tab G-tube BID Qty: 0 0RF amoxicillin-pot clavulanate 875-125 mg tablet 1 tab PO BID 3 Days Qty: 6 0RF Eliquis DVT-PE Treat 30D Start 5 mg (74 tabs) tablets,dose pack 5 mg PO BID Qty: 74 0RF Rx Instructions: 10 mg (2 tabs) twice daily for 7 days till 08/11/25 and then 1 tab twice daily to continue Continued levothyroxine 50 mcg tablet 50 mcg PO QDAY omeprazole 40 mg capsule,delayed release(DR/EC) 40 mg PO QDAY tamsulosin 0.4 mg capsule 0.4 mg PO BID carbidopa-levodopa 25-100 mg tablet extended release 1 tab PO .qid fludrocortisone 0.1 mg tablet 0.1 mg PO QDAY ondansetron 8 mg tablet,disintegrating 8 mg PO Q8H PRN (Reason: nausea and vomiting) Qty: 30 1RF lidocaine-prilocaine 2.5-2.5 % cream 1 applic topical ONCE PRN (Reason: port access) 30 Days Qty: 30 2RF sodium chloride 1,000 mg tablet,soluble 1,000 mg PO QD-QID PRN (Reason: electrolyte replenishment) Qty: 30 2RF MAGIC MOUTH WASH (BMX) 180 mL suspension 15 ml PO .qid PRN (Reason: pain) Qty: 180 5RF Rx Instructions: diphenhydramine 12.5 mg/5 mL oral liquid 60 mL; aluminum-mag hydroxide-simethicone 400 mg-400 mg-40 mg/5 mL oral susp 60 mL; Lidocaine Viscous 2 % mucosal solution 60 mL; Per 180 mL guaifenesin [Guaifed (guaifenesin)] 100 mg/5 mL liquid 200 mg PO Q4H PRN (Reason: congestion) Qty: 500 3RF Rx Instructions: take 10 mL q4 hrs prn congestion prucalopride [Motegrity] 2 mg tablet 2 mg PO DAILY Discontinued sennosides [Shari-rocco] 8.6 mg tablet 8.6 mg PO PRN Referrals / Follow Up: Eloina Chi MD [Primary Care Provider, Family Practice] - 08/16/25 1:40 pm Simone Collins MD [Med Staff - Active Staff, Oncology] - 08/09/25 7:30 am Disposition Disposition (needs filled in before D/C Order can be placed): Home Health Service Charges/Coding Visit Charges Inpatient E&M: 70881 Disch Hosp >30min
--- NOTE | 2025-08-04 11:03 | CASEMGMT ---
Social Work SW spoke with the and she wanted semi-automatic hospital bed not fully automatic. The was fine with using [employer]. JOSH sent the order to [facility] [place]. BEA Ruth
--- NOTE | 2025-08-04 11:59 | CASEMGMT ---
Social Work SW called the . The reported she is planning on picking up her from his outpatient appt. that is at 120pm today. She reported they called her regarding delivering the bed. She reported they told her they will call her when they are heading her way. BEA Ruth
[2025-08-04 12:00] VITALS: BP 130/75; PULSE 93; RESP 16; TEMP 37.2; O2SAT 93
--- NOTE | 2025-08-04 14:48 | PHA.DC_ITS ---
Pharmacy DC Med Reconciliation
--- NOTE | 2025-08-04 14:48 | PHA.DC.MR.R ---
Pharmacy [place] Med Reconciliation Pharmacy Service has performed discharge medication reconciliation for this patient. Contacted Dr. Reardon, pt on Lovenox for PE but no anticoagulation ordered upon initial review. Dr. Reardon ordered Eliquis starter pack. Medication education papers prepared, patient discharged when counseling was attempted. Medications reviewed. The patient's discharge medication list was reviewed for discrepancies and discrepancies were resolved. Medications at Discharge Home Medications levothyroxine 50 mcg tablet 50 mcg PO QDAY 03/05/24 omeprazole 40 mg capsule,delayed release 40 mg PO QDAY 03/05/24 tamsulosin 0.4 mg capsule 0.4 mg PO BID 03/05/24 prucalopride 2 mg tablet (Motegrity) 2 mg PO DAILY 05/09/24 carbidopa ER 25 mg-levodopa 100 mg tablet,extended release 1 tab PO .qid 06/10/25 fludrocortisone 0.1 mg tablet 0.1 mg PO QDAY 06/17/25 lidocaine-prilocaine 2.5 %-2.5 % topical cream 1 applic topical ONCE PRN port access 30 days #30 grams 06/28/25 ondansetron 8 mg disintegrating tablet 8 mg PO Q8H PRN nausea and vomiting #30 tabs 06/28/25 MAGIC MOUTH WASH (BMX) 180 mL suspension 15 ml PO .qid PRN pain #180 mL 07/07/25 sodium chloride 1,000 mg soluble tablet 1,000 mg PO QD-QID PRN electrolyte replenishment #30 tabs 07/26/25 guaifenesin 100 mg/5 mL oral liquid (Guaifed (guaifenesin)) 200 mg (10 mL) PO Q4H PRN congestion #500 mL 07/28/25 L.acidophil,salivari-Bifido bifidum-Strep thermoph 175 mg capsule 1 cap G-tube TID #0 caps 08/04/25 amoxicillin 875 mg-potassium clavulanate 125 mg tablet 1 tab PO BID 3 days #6 tabs 08/04/25 apixaban 5 mg (74 tabs) tablets in a dose pack (Eliquis DVT-PE Treat 30D Start) 5 mg PO BID #74 tabs 08/04/25 chlorhexidine gluconate 0.12 % mouthwash 15 ml PO TID 12 weeks #1,893 mL 08/04/25 lactose-reduced food with fiber 0.06 gram-1.5 kcal/mL oral liquid (Jevity 1.5 Federico) 240 ml G-tube 5X/DAY #0 mL 08/04/25 potassium chloride 20 mEq/15 mL oral liquid 40 meq (30 mL) G-tube BID 1 week #420 mL 08/04/25 sennosides 8.6 mg-docusate sodium 50 mg tablet (Stimulant Laxative Plus) 2 tab G-tube BID #0 tabs 08/04/25
== END 2025-08-04 13:07 | disposition home health service (06) | DRG 808 ==
LOC: ED 19:59 → ICU 20:11 → PCU 08-02 19:37
PROVIDERS: Admitting Provider Student in an Organized Health Care Education/Training Program; Emergency Provider Emergency Medicine; PCP Family Medicine; Visit Provider Internal Medicine
DX: D70.1 Agranulocytosis secondary to cancer chemotherapy (principal); I26.93 Single subsegmental thrombotic pulmonary embolism without acute cor pulmonale; G93.40 Encephalopathy, unspecified; E44.1 Mild protein-calorie malnutrition; D84.821 Immunodeficiency due to drugs; E27.40 Unspecified adrenocortical insufficiency; C77.0 Secondary and unspecified 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, face and neck; D61.810 Antineoplastic chemotherapy induced pancytopenia; E83.39 Other disorders of phosphorus metabolism; F02.80 Dementia in other diseases classified elsewhere, unspecified severity, without behavioral disturbance, psychotic disturbance, mood disturbance, and anxiety; G20.A1 Parkinson's disease without dyskinesia, without mention of fluctuations; E03.9 Hypothyroidism, unspecified; Z93.1 Gastrostomy status; E83.51 Hypocalcemia; C09.9 Malignant neoplasm of tonsil, unspecified; K21.9 Gastro-esophageal reflux disease without esophagitis; I95.9 Hypotension, unspecified; K12.32 Oral mucositis (ulcerative) due to other drugs; E87.6 Hypokalemia; E83.42 Hypomagnesemia; T45.1X5A Adverse effect of antineoplastic and immunosuppressive drugs, initial encounter; I49.1 Atrial premature depolarization; R73.9 Hyperglycemia, unspecified; R53.81 Other malaise; N40.0 Benign prostatic hyperplasia without lower urinary tract symptoms; Z68.24 Body mass index [BMI] 24.0-24.9, adult; Z86.718 Personal history of other venous thrombosis and embolism; Z87.19 Personal history of other diseases of the digestive system; Z87.891 Personal history of nicotine dependence; Z79.890 Hormone replacement therapy; Z79.899 Other long term (current) drug therapy
CPT/HCPCS: 36415; 71045; 71275; 74230; 77386; 80048; 80053; 80202; 81001; 82550; 82607; 82746; 83605; 83735; 84100; 85025; 85379; 85610; 85730; 87040; 87086; 87633; 87641; 92526; 92611; 93005; 94762; 97116; 97162; 97166; 97530; 97535; 97802; 97803; 99285; Q9967; A4216; J0612; J1447

== ENCOUNTER 2025-08-07 01:24 | Inpatient (IN) | payer MEDICARE, SELFPAY ==
[2025-08-07] VITALS (13 sets, daily range): BP systolic 106–140; BP diastolic 55–91; PULSE 83–118; RESP 13–23; TEMP 36.4–37.2; O2SAT 94–97; BMI 23.1; BMI 22.4
--- NOTE | 2025-08-07 01:34 | EX.ED.DYSGE1 ---
HPI History of Present Illness Chief Complaint: Weakness Informant: patient Onset/Context/Timing Onset: Today Context: Sudden Onset Timing: Continuous Quality: Weakness Location: Generalized Worsened by: Nothing Relieved by: Nothing Narrative Narrative: Patient presents with generalized weakness that began rather suddenly today. Patient states he feels weak all over. Patient states he was having some shortness of breath earlier but denies any shortness of breath at this time. Patient admits to some subjective fevers. Patient denies any chest pain. Patient denies any nausea or vomiting. Patient states nothing makes his symptoms worse and nothing makes them better. Patient has a history of throat cancer and is undergoing chemotherapy and radiation for that. [facility] Medical History Encounter for education Wears glasses Cancer Alcohol use History of steroid therapy Thyroid disease Uses wheelchair Arthritis Prostate disease Low iron DVT (deep venous thrombosis) Back pain Migraine headache Parkinson's disease Orthostatic hypotension Syncope Dietary restriction History of diverticulitis Gastric reflux Chronic cough Former smoker History of pain when walking History of stress test History of echocardiogram Cardiology follow-up encounter Celiac disease Home Medications ?Medication ?Instructions ?Recorded ?Last Taken ?Type levothyroxine 50 mcg tablet 50 mcg PO QDAY thyroid 03/05/24 06/30/25 History omeprazole 40 mg capsule,delayed 40 mg PO QDAY gerd 03/05/24 06/30/25 History release tamsulosin 0.4 mg capsule 0.4 mg PO BID prostate 03/05/24 06/30/25 History prucalopride 2 mg tablet 2 mg PO DAILY 05/09/24 06/30/25 History ([employer]) carbidopa ER 25 mg-levodopa 100 mg 1 tab PO .qid parkinson 06/10/25 06/30/25 History tablet,extended release fludrocortisone 0.1 mg tablet 0.1 mg PO QDAY low bp 06/17/25 06/30/25 History lidocaine-prilocaine 2.5 %-2.5 % 1 applic topical ONCE PRN port 06/28/25 Unknown Rx topical cream access 30 days #30 grams ondansetron 8 mg disintegrating 8 mg PO Q8H PRN nausea and 06/28/25 Unknown Rx tablet vomiting #30 tabs MAGIC MOUTH WASH (BMX) 180 mL 15 ml PO .qid PRN pain #180 mL 07/07/25 Unknown Rx suspension sodium chloride 1,000 mg soluble 1,000 mg PO QD-QID PRN electrolyte 07/26/25 Unknown Rx tablet replenishment #30 tabs guaifenesin 100 mg/5 mL oral 200 mg (10 mL) PO Q4H PRN 07/28/25 Unknown Rx liquid (Guaifed (guaifenesin)) congestion #500 mL L.acidophil,salivari-Bifido 1 cap G-tube TID probiotic #0 caps 08/04/25 Unknown Rx bifidum-Strep thermoph 175 mg capsule apixaban 5 mg (74 tabs) tablets in 5 mg PO BID blood thinner #74 tabs 08/04/25 Unknown Rx a dose pack (qcue DVT-PE Treat 30D Start) chlorhexidine gluconate 0.12 % 15 ml PO TID 12 weeks #1,893 mL 08/04/25 Unknown Rx mouthwash lactose-reduced food with fiber 240 ml G-tube 5X/DAY nutrition #0 08/04/25 Unknown Rx 0.06 gram-1.5 kcal/mL oral liquid mL (Jevity 1.5 Federico) potassium chloride 20 mEq/15 mL 40 meq (30 mL) G-tube BID 1 week 08/04/25 Unknown Rx oral liquid #420 mL sennosides 8.6 mg-docusate sodium 2 tab G-tube BID laxative #0 tabs 08/04/25 Unknown Rx 50 mg tablet (Stimulant Laxative Plus) amoxicillin 875 mg-potassium 1 tab PO BID atb 08/07/25 Unknown History clavulanate 125 mg tablet Allergy/AdvReac Type Severity Reaction Status Date / Time gluten Allergy Abd Verified 08/07/25 01:25 cramps/diarrhea aripiprazole AdvReac unknown Verified 08/07/25 01:25 haloperidol AdvReac unknown Verified 08/07/25 01:25 metoclopramide AdvReac unknown Verified 08/07/25 01:25 olanzapine AdvReac unknown Verified 08/07/25 01:25 prochlorperazine AdvReac unknown Verified 08/07/25 01:25 promethazine AdvReac unknown Verified 08/07/25 01:25 Family History Brother Cancer THROAT Mother Leukemia Sister Breast cancer Surgical History Hx of right cataract extraction Hx of left cataract extraction Hx of eye surgery History of hydrocelectomy Hx of hernia repair Hx of colonoscopy Social History household members: significant other housing: house current occupational status: retired Smoking Status: Former smoker alcohol intake: never substance use type: does not use ROS ROS ED Constitutional Constitutional ED: Reports fever(s) and subjective; Denies chills Eyes Eyes: Denies blurry vision or change in vision ENT ENT ED: Denies rhinorrhea or sore throat Cardiovascular Cardiovascular: Denies chest pain or palpitations Respiratory/Chest Respiratory/Chest: Reports dyspnea; Denies cough Gastrointestinal Gastrointestinal: Denies nausea or vomiting Genitourinary Genitourinary ED: Denies dysuria or hematuria Musculoskeletal Musculoskeletal: Denies back pain or neck pain Integumentary Denies abscess or rash Neurologic Neurologic: Reports weakness; Denies headache(s) Allergic/Immunologic Allergic/Immunologic ED: Denies mouth swelling or urticaria EXAM Physical Exam Const Vital Signs: 08/07/25 01:25 08/07/25 01:28 08/07/25 01:29 Temperature 99 F Temperature Source Oral Pulse Rate 118 H Respiratory Rate 17 Respiratory Effort Normal Respiratory Pattern Normal Blood Pressure 130/82 H Blood Pressure Mean 98 Pulse Ox 95 Oxygen Delivery Method Nasal Cannula 08/07/25 02:27 08/07/25 03:06 08/07/25 04:00 Temperature 98.6 F Temperature Source Core Pulse Rate 113 H 89 89 Respiratory Rate 13 23 H 17 Respiratory Effort Respiratory Pattern Blood Pressure 140/85 H 139/77 H 132/77 H Blood Pressure Mean 103 97 95 Pulse Ox 96 94 95 Oxygen Delivery Method 08/07/25 05:00 Temperature 98.6 F Temperature Source Core Pulse Rate 83 Respiratory Rate 14 Respiratory Effort Respiratory Pattern Blood Pressure 135/81 H Blood Pressure Mean 99 Pulse Ox 96 Oxygen Delivery Method Room Air Positive well nourished and well developed Constitutional Narrative: BMI is 23.1. General Appearance ED: well developed and NAD HEENT Reports moist mucous membranes Neck supple and no JVD Resp normal respiratory effort and clear to auscultation bilaterally Cardio regular rhythm Rate: tachycardic GI non-tender and non-distended Palpation: soft Neuro oriented x3, CN's II-XII intact bilaterally and no sensory deficits noted Sensorium / Orientation: alert Motor Exam: general weakness Psych mental status grossly normal MDM MDM MDM Narrative Medical decision making narrative: Differential diagnosis includes but is not limited to cardiac dysrhythmia, cardiac ischemia, pneumonia, bronchitis, viral illness, anemia, electrolyte abnormality, dehydration, urinary tract infection, sepsis, and chemotherapy side effect. EKG will be obtained to assess for cardiac dysrhythmia and cardiac ischemia. Chest x-ray will be obtained to assess for pneumonia and bronchitis. CBC will be obtained to assess for leukocytosis and anemia. Basic metabolic profile will be obtained to assess for electrolyte abnormality and renal function. Blood cultures will be obtained to assess for sepsis. Serum lactate will be obtained to assess for sepsis. Urinalysis will be obtained to assess for urinary tract infection and hematuria. Urine culture will be obtained to assess for urinary tract infection. PT with INR and PTT will be obtained to assess for coagulopathy. COVID-19, influenza, and RSV will be obtained to assess for viral illness. High-sensitivity troponin will be obtained to assess for cardiac ischemia. 2-hour repeat high-sensitivity troponin will be obtained to assess for ongoing cardiac ischemia. History & Record Review Additional record(s) reviewed:: Prior inpatient record, Prior outpatient record, Prior ED visit and Prior labs Lab Data Attestation: I reviewed the patient's lab results. Lab results narrative: CBC was reviewed. There is a mild anemia with a hemoglobin 9.9 and hematocrit of 30.2. The remainder is within normal limits. Basic metabolic profile was reviewed. BUN was mildly elevated at 28. Creatinine was normal at 0.95. Serum lactate was reviewed and was less than 1.0. PT with INR and PTT were reviewed. Pro time was 19.3 and INR is 1.6. PTT was normal at 34.8. Initial high-sensitivity troponin was reviewed and was normal at 19. 2-hour repeat high-sensitivity troponin was reviewed and was also normal at 19. Urinalysis was reviewed. There is no evidence of urinary tract infection or hematuria. COVID-19 PCR was reviewed and was negative. Influenza PCR was reviewed and was negative for influenza A and influenza B. RSV PCR was reviewed and was negative. Labs: Laboratory Results - last 24 hr 08/07/25 08/07/25 08/07/25 01:42 02:28 03:37 WBC 5.4 RBC 3.38 L Hgb 9.9 L Hct 30.2 L MCV 89.3 MCH 29.3 MCHC 32.8 RDW Std Deviation 47.5 H RDW Coeff of [place] 14.9 H Plt Count 178 MPV 10.4 Immature Gran % (Auto) 2.200 H Neut % (Auto) 58.4 Lymph % (Auto) 24.4 [place] % (Auto) 13.7 H Eos % (Auto) 0.4 Baso % (Auto) 0.9 Absolute Neuts (auto) 3.2 Absolute Lymphs (auto) 1.32 Nucleated RBC % 0 PT 19.3 H INR 1.6 APTT 34.8 Sodium 139 Potassium 4.1 Chloride 106 Carbon Dioxide 24.8 Anion Gap 8 BUN 28 H Creatinine 0.95 Estim Creat Clear Calc 59.00 Est GFR (MDRD) Non-Af 81 BUN/Creatinine Ratio 29.7 H Glucose 119 H Lactic Acid < 1.0 Calcium 8.0 Troponin T High Sens 19 Troponin T Hi Sens 2 Hr 19 Urine Color Yellow Urine Clarity Clear Urine pH 8.0 Ur Specific [place] 1.015 Urine Protein Negative Urine Glucose (UA) Normal Urine Ketones Negative Urine Occult Blood Negative Urine Nitrite Negative Urine Bilirubin Negative Urine Urobilinogen Normal Ur Leukocyte Esterase Negative Urine RBC 0-5 SEEN Urine WBC 0-5 SEEN Ur Squamous Epith Cells 0 SEEN Urine Bacteria 0 SEEN Urine Mucus 0 SEEN Radiography Chest X-Ray - ED: 1 View, Read by ED Physician, Read by Radiologist and Right Infiltrate Diagnostic Testing: Clinical Impression(s) from Imaging Studies Chest X-Ray 08/07/25 02:02 IMPRESSION: Faint bilateral lower lung zone pneumonic consolidation, progressed since the prior study. Reading Location: [place] [address] 08/07/25 04:57 IMPRESSION: No obvious major pulmonary arterial thromboembolism. Mild cardiomegaly. Minimal pericardial effusion. Mild bilateral pleural effusions, left more evident than right with bilateral lower lung lobes subsegmental consolidative and atelectatic changes Bilateral pulmonary patchy parenchymal veiling with smooth interlobular septae and subpleural lines thickening associated with scattered atelectatic plates. The constellation of findings are worrisome of interstitial/cardiogenic pulmonary edema. Advise clinical correlation. Reading Location: [place] [address] EKG Initial EKG: Attestation: I personally reviewed and interpreted this EKG as follows: Interpretation: Sinus Tachycardia (With frequent PACs with a rate of 116) and Non-Specific ST Changes Comments: EKG was obtained. On my independent interpretation, it showed a sinus tachycardia with frequent PACs with a rate of 116. [place] interval, QRS interval, and QTc intervals were all normal. [place] was normal. There are nonspecific ST-T wave changes. Prior EKG tracings: available for review Prior: Unchanged (07/30/2025) Treatment and Re-Evaluation :: Patient was given IV fluids. Patient was started on Rocephin and Zithromax. Case was discussed with the hospitalist. He recommended obtaining a CT scan of the chest. This was ordered. He will admit the patient to his service. Patient understood and was agreeable with the plan. All questions were answered. Discharge Plan Dx/Rx/DC Orders Clinical Impression: Pneumonia, Dehydration, Squamous cell carcinoma of oropharynx Disposition Disposition: Acute Care Hospital [facility] Discharge Date/Time: 08/07/25 05:38
--- NOTE | 2025-08-07 01:46 | EKG12_ITS ---
Test Reason : DYSRHYTHMIA
[2025-08-07 01:58] LABS: Hematocrit 30.2 % (40-54); Hemoglobin 9.9 g/dL (13.0-16.5); Immature Granulocytes Count 0.120 X10^3/uL (0.0-0.0); Mean Corp Hgb Conc 32.8 g/dL (32-36); Mean Corpuscular Volume 89.3 fL (80-94); Mean Platelet Vol. 10.4 fl (6.2-12.0); NRBC Flagged by Analyzer 0 % (0-5); Platelet Count 178 K/mm3 (150-450); RBC Distribution Width CV 14.9 % (11.6-14.6); RBC Distribution Width SD 47.5 fl (35.1-43.9); Red Blood Count 3.38 M/mm3 (4.6-6.2); White Blood Count 5.4 K/mm3 (4.4-11.0)
[2025-08-07] MEDS: 0.9% Normal Saline (1000mL) 1,000 ML 1000 ML IV (01:58)
--- NOTE | 2025-08-07 02:02 | RAD_ITS ---
PROCEDURE: RAD/Chest 1 View (Portable)
[2025-08-07 02:12] LABS: Prothrombin Time (Protime)PT. 19.3 SECONDS (11.7-14.9)
[2025-08-07 02:13] LABS: Partial Thromboplast Time 34.8 Seconds (24.1-36.2)
[2025-08-07 02:15] LABS: Troponin T High Sensitivity 19 ng/L (<=22)
[2025-08-07 02:16] LABS: Anion Gap 8 (5-15); BUN 28 mg/dL (4-19); BUN/Creat Ratio 29.7 RATIO (10-20); Calcium,Total 8.0 mg/dL (7.6-11.0); Carbon Dioxide 24.8 mmol/L (21.0-32.0); Chloride 106 mmol/L (98-108); Estimated Creatinine Clearance 59.00 ml/min (50-250); Glucose 119 mg/dL (70-99); Potassium 4.1 mmol/L (3.3-5.1)
[2025-08-07 02:36] LABS: Mucous, Urine 0 SEEN /hpf (<or=2+); Squamous Epithelial Cells - UA 0 SEEN /hpf (0-5)
[2025-08-07 02:37] LABS: Color, Urine Yellow (Yellow); Glucose, Dipstick Normal (Normal); Ketone-Dipstick Negative (Negative); Leukocyte Esterase-Dipstick Negative /ul (Negative); Nitrite-Dipstick Negative (Negative); Occult Blood-Urine Negative /ul (Negative); Protein-Dipstick Negative (Negative); Specific Gravity, Urine 1.015 (1.002-1.030); Urine Bilirubin Dipstick Negative (Negative)
[2025-08-07 02:49] LABS: Red Blood Cells-Urine 0-5 SEEN /hpf (0-5)
[2025-08-07 04:06] LABS: Troponin T High Sens 2 HR 19 ng/L (<=22)
--- NOTE | 2025-08-07 04:55 | PCM.HP.STD ---
[facility] - General General Date of Admission: 08/07/25 Date of Service: 08/07/25 Chief Complaint: Generalized Weakness and Shortness of Breath. HPI Narrative CARLOS PARADA, is a 80 M with a past medical history of hypothyroidism; on levothyroxine, history of orthostatic hypotension with syncope; on fludrocortisone, former tobacco abuse, Parkinson's disease; on carbidopa-levodopa, history of DVT; on apixaban twice daily, history of ocular migraine headaches, BPH; on tamsulosin twice daily, history of celiac disease, history of diverticulitis, chronic constipation; on senna twice daily, GERD; on pantoprazole, OA; with chronic low back pain, chronic dysphagia; s/p G-tube on tube feed 4 x daily and history of squamous cell throat cancer with chronic cough; s/p PORT currently undergoing chemotherapy and radiation who presents to [facility] ER complaining of generalized weakness and shortness of breath. Mr. Parada reports his symptoms began suddenly yesterday stating he feels weak all over. He then developed intermittent shortness of breath with subjective fevers with nothing seeming to make his symptoms better or worse. He denies associated chills, runny nose, sore throat, ear pain, chest pain, palpitations, heart racing, lower extremity edema, nausea, vomiting, diarrhea, abdominal pain, dysuria, hematuria, headache or rash. In the ER he was noted to have a CXR that revealed faint bilateral lower lung zone pneumonic consolidation, progressed since prior study with ER physician suspecting early Pneumonia complicated by laboratory evidence of Dehydration; with elevated BUN/creatinine ratio of 29.7 present on admission along with clinical evidence of Generalized Weakness with otherwise unremarkable laboratory studies and vital signs. He was then admitted to the general medical floor for ongoing care for state that is expected to extend beyond 2 midnights. [facility] Medical History Encounter for education Wears glasses Cancer Alcohol use History of steroid therapy Thyroid disease Uses wheelchair Arthritis Prostate disease Low iron DVT (deep venous thrombosis) Back pain Migraine headache Parkinson's disease Orthostatic hypotension Syncope Dietary restriction History of diverticulitis Gastric reflux Chronic cough Former smoker History of pain when walking History of stress test History of echocardiogram Cardiology follow-up encounter Celiac disease Home Medications ?Medication ?Instructions ?Recorded ?Last Taken ?Type levothyroxine 50 mcg tablet 50 mcg PO QDAY 03/05/24 06/30/25 History omeprazole 40 mg capsule,delayed 40 mg PO QDAY 03/05/24 06/30/25 History release tamsulosin 0.4 mg capsule 0.4 mg PO BID 03/05/24 06/30/25 History prucalopride 2 mg tablet 2 mg PO DAILY 05/09/24 06/30/25 History (M[employer]) carbidopa ER 25 mg-levodopa 100 mg 1 tab PO .qid 06/10/25 06/30/25 History tablet,extended release fludrocortisone 0.1 mg tablet 0.1 mg PO QDAY 06/17/25 06/30/25 History lidocaine-prilocaine 2.5 %-2.5 % 1 applic topical ONCE PRN port 06/28/25 Unknown Rx topical cream access 30 days #30 grams ondansetron 8 mg disintegrating 8 mg PO Q8H PRN nausea and 06/28/25 Unknown Rx tablet vomiting #30 tabs MAGIC MOUTH WASH (BMX) 180 mL 15 ml PO .qid PRN pain #180 mL 07/07/25 Unknown Rx suspension sodium chloride 1,000 mg soluble 1,000 mg PO QD-QID PRN electrolyte 07/26/25 Unknown Rx tablet replenishment #30 tabs guaifenesin 100 mg/5 mL oral 200 mg (10 mL) PO Q4H PRN 07/28/25 Unknown Rx liquid (Guaifed (guaifenesin)) congestion #500 mL L.acidophil,salivari-Bifido 1 cap G-tube TID #0 caps 08/04/25 Unknown Rx bifidum-Strep thermoph 175 mg capsule apixaban 5 mg (74 tabs) tablets in 5 mg PO BID #74 tabs 08/04/25 Unknown Rx a dose pack ([email or web address] DVT-PE Treat 30D Start) chlorhexidine gluconate 0.12 % 15 ml PO TID 12 weeks #1,893 mL 08/04/25 Unknown Rx mouthwash lactose-reduced food with fiber 240 ml G-tube 5X/DAY #0 mL 08/04/25 Unknown Rx 0.06 gram-1.5 kcal/mL oral liquid (Jevity 1.5 Federico) potassium chloride 20 mEq/15 mL 40 meq (30 mL) G-tube BID 1 week 08/04/25 Unknown Rx oral liquid #420 mL sennosides 8.6 mg-docusate sodium 2 tab G-tube BID #0 tabs 08/04/25 Unknown Rx 50 mg tablet (Stimulant Laxative Plus) Allergy/AdvReac Type Severity Reaction Status Date / Time gluten Allergy Abd Verified 08/07/25 01:25 cramps/diarrhea aripiprazole AdvReac unknown Verified 08/07/25 01:25 haloperidol AdvReac unknown Verified 08/07/25 01:25 metoclopramide AdvReac unknown Verified 08/07/25 01:25 olanzapine AdvReac unknown Verified 08/07/25 01:25 prochlorperazine AdvReac unknown Verified 08/07/25 01:25 promethazine AdvReac unknown Verified 08/07/25 01:25 Family History Brother Cancer THROAT Mother Leukemia Sister Breast cancer Surgical History Hx of right cataract extraction Hx of left cataract extraction Hx of eye surgery History of hydrocelectomy Hx of hernia repair Hx of colonoscopy Social History household members: significant other housing: house current occupational status: retired Smoking Status: Former smoker alcohol intake: never substance use type: does not use ROS ROS Narrative Review of Systems: Constitutional: Patient admits to subjective fever but denies chills. Eyes: Patient denies changes in vision or discharge from eyes. ENT: Patient denies runny nose, sore throat or ear pain. Resp: Patient admits to intermittent dyspnea and cough as per HPI. CV: Patient denies chest pain, palpitations, heart racing or lower extremity edema. GI: Patient denies abdominal pain, nausea, vomiting or diarrhea. : Patient denies dysuria or hematuria. MSK: Patient admits to generalized weakness as per HPI. Skin: Patient denies rash. Psych: Patient denies symptoms of uncontrolled depression or anxiety. Neuro: Patient denies headache, paresthesias or focal neurologic deficits. Allergy: Patient denies lip swelling, tongue swelling or urticaria. Hematology: Patient admits to easy bleeding and bruisability on apixaban. Endocrinology: Patient denies polyuria, polydipsia, polyphagia or heat/cold intolerance. 14 point ROS otherwise negative except for positives noted above in HPI. Vital Signs Vital Signs Vital Signs: 08/07/25 01:25 08/07/25 01:28 08/07/25 01:29 Temperature 99 F Temperature Source Oral Pulse Rate 118 H Respiratory Rate 17 Respiratory Effort Normal Respiratory Pattern Normal Blood Pressure 130/82 H Blood Pressure Mean 98 Pulse Ox 95 Oxygen Delivery Method Nasal Cannula 08/07/25 02:27 08/07/25 03:06 08/07/25 04:00 Temperature 98.6 F Temperature Source Core Pulse Rate 113 H 89 89 Respiratory Rate 13 23 H 17 Respiratory Effort Respiratory Pattern Blood Pressure 140/85 H 139/77 H 132/77 H Blood Pressure Mean 103 97 95 Pulse Ox 96 94 95 Oxygen Delivery Method Weight Weight: 151 lb 14.376 oz Body Mass Index (BMI) 23.1 Physical Exam Const alert, oriented x3, no apparent distress, average body habitus and healthy appearing General Appearance: cooperative HEENT normocephalic, head/scalp atraumatic and hearing grossly normal bilaterally HEENT Narrative: Mucous membranes dry. Eyes PERRL, EOMs intact bilaterally and conjunctivae normal Neck no lymphadenopathy, supple and no JVD Resp Resp Narrative: Diminished breath sounds over bases. Cardio regular rate and regular rhythm GI normal to inspection, nondistended, normoactive bowel sounds, soft to palpation, non-tender and non-distended Extremity normal to inspection, full ROM and no clubbing, cyanosis or edema Skin Skin Narrative: Patient has no evidence of rash. Neuro oriented x3, CN's II-XII intact bilaterally, moves all extremities and no focal motor deficits Neuro Narrative: Patient has slightly garbled speech which is apparently his baseline. Sensorium / Orientation: awake, alert, oriented to person, oriented to place and oriented to time Speech: speech normal Psych affect normal Results Medical Records Data Attestation: I reviewed the patient's medical records Lab / Micro Data Attestation: I reviewed the patient's lab results. 08/07/25 01:42 08/07/25 01:42 Labs: Laboratory Results - last 24 hr 08/07/25 01:42: WBC 5.4, RBC 3.38 L, Hgb 9.9 L, Hct 30.2 L, MCV 89.3, MCH 29.3, MCHC 32.8, RDW Std Deviation 47.5 H, RDW Coeff of [place] 14.9 H, Plt Count 178, MPV 10.4, Immature Gran % (Auto) 2.200 H, Neut % (Auto) 58.4, Lymph % (Auto) 24.4, [place] % (Auto) 13.7 H, Eos % (Auto) 0.4, Baso % (Auto) 0.9, Absolute Neuts (auto) 3.2, Absolute Lymphs (auto) 1.32, Nucleated RBC % 0, PT 19.3 H, INR 1.6, APTT 34.8, Sodium 139, Potassium 4.1, Chloride 106, Carbon Dioxide 24.8, Anion Gap 8, BUN 28 H, Creatinine 0.95, Estim Creat Clear Calc 59.00, Est GFR (MDRD) Non-Af 81, BUN/Creatinine Ratio 29.7 H, Glucose 119 H, Lactic Acid < 1.0, Calcium 8.0, Troponin T High Sens 19 08/07/25 02:28: Urine Color Yellow, Urine Clarity Clear, Urine pH 8.0, Ur Specific [place] 1.015, Urine Protein Negative, Urine Glucose (UA) Normal, Urine Ketones Negative, Urine Occult Blood Negative, Urine Nitrite Negative, Urine Bilirubin Negative, Urine Urobilinogen Normal, Ur Leukocyte Esterase Negative, Urine RBC 0-5 SEEN, Urine WBC 0-5 SEEN, Ur Squamous Epith Cells 0 SEEN, Urine Bacteria 0 SEEN, Urine Mucus 0 SEEN 08/07/25 03:37: Troponin T Hi Sens 2 Hr 19 Micro: Microbiology 08/07/25 01:55 Mucosa - Nasopharyngeal SARS-CoV-2, Influenza & RSV (PCR) - Final Imaging Radiology Impression Chest X-Ray 08/07/25 02:02 IMPRESSION: Faint bilateral lower lung zone pneumonic consolidation, progressed since the prior study. [facility] Assessment & Plan Assessment/Plan (1) Pneumonia: QUALIFIERS: Laterality: bilateral Lung location: lower lobe of lung Pneumonia type: due to unspecified organism Qualified Code(s): J18.9 - Pneumonia, unspecified organism (2) Dehydration: (3) Generalized weakness: (4) Parkinson's disease: QUALIFIERS: Dyskinesia presence: unspecified whether dyskinesia Fluctuating manifestations: unspecified whether manifestations fluctuate Qualified Code(s): G20.A1 - Parkinson's disease without dyskinesia, without mention of fluctuations (5) Squamous cell carcinoma of oropharynx: (6) History of DVT (deep vein thrombosis): (7) Chronic anticoagulation: PLAN: Plan 1. CXR that revealed faint bilateral lower lung zone pneumonic consolidation, progressed since prior study with ER physician suspecting early Pneumonia - Admit to general medical floor. Continue empiric IV ceftriaxone and IV azithromycin begun in ER and await culture & sensitivity data. Check urinary antigens to Streptococcus pneumonia and Legionella. Give acetaminophen as needed for [id number] (level 1-5/10) pain or fever. Give morphine IV prn for severe (level 6-10/10) pain. 2. Dehydration; with elevated BUN/creatinine ratio of 29.7 present on admission complicating #1 - Gently volume resuscitate and recheck renal indices daily to follow trend for improvement. 3. Generalized Weakness in the setting of previously known Parkinson's disease compounding #1 & #2 - PT/OT and Case Management to consult and treat on-rounds in the AM for further recommendations with help appreciated in advance. 4. History of Squamous Cell Throat Cancer with chronic cough; currently undergoing chemotherapy and radiation adding to the burden of disease outlined from #1 - #3 - Stable with last chemotherapy ~2 weeks ago. 5. History of DVT; on apixaban twice daily adding to the medical complexity of #1 -#4 - Maintain apixaban as previous. 6. Chronic dysphagia; s/p G-tube on tube feed 4 x daily - Continue tube feed via G-tube according to established schedule. 7. History of orthostatic hypotension with syncope; on fludrocortisone - Resume fludrocortisone as before. 8. Hypothyroidism; on levothyroxine - Continue levothyroxine and check TSH. 9. Former tobacco abuse - Noted. 10. History of ocular migraine headaches - Noted with no evidence of recurrence at this time. 11. BPH; on tamsulosin twice daily - Present therapy to be continued. 12. History of celiac disease - We will avoid gluten in diet to prevent flare. 13. History of diverticulitis - Noted. 14. Chronic constipation; on senna twice daily - Maintain current bowel regimen. 15. GERD; on pantoprazole - Resume PPI. 16. OA; with chronic low back pain - We will follow pain regimen and scales outlined in #1. 17. DVT prophylaxis - Patient already on apixaban for #5 which will be continued. Total time: Approximately (but not less than) 75 minutes. Charges/Coding Visit Charges Inpatient E&M: 00420 Init Hosp L3
--- NOTE | 2025-08-07 04:57 | CT_ITS ---
PROCEDURE: CT/Chest WITH Contrast
[2025-08-07] MEDS: Ceftriaxone 2 GM in 0.9% Normal Saline (50mL MB+) 50 ML IV (05:06)
[2025-08-07] MEDS: 0.9% Normal Saline (1000mL) 1,000 ML 100 ML IV ×2 (06:00→15:35)
[2025-08-07] MEDS: Azithromycin 500 MG in 0.9% Normal Saline (250mL Bag) 250 ML 255 MG IV (06:16)
[2025-08-07] MEDS: Chlorhexidine 480 ML 15 ML PO ×3 (07:05→22:19)
[2025-08-07] MEDS: Lactobacillis Acidophilus 1 CAP GT ×3 (07:05→22:16)
[2025-08-07] MEDS: Jevity 1.5. 1,000 ML Bottle 240 ML GT ×5 (07:05→22:17)
[2025-08-07 07:19] LABS: Troponin T High Sens 4 HR 18 ng/L (<=22)
[2025-08-07 07:28] LABS: Magnesium 2.1 mg/dL (1.5-2.2)
--- NOTE | 2025-08-07 07:31 | PN.HOSP_ITS ---
Reason for Visit
--- NOTE | 2025-08-07 07:31 | PCM.PN.HOSP ---
Reason for Visit Chief Complaint: Generalized Weakness and Shortness of Breath. Subjective Subjective Feeling ok. Objective Data Objective Data Vital Signs: Vital Signs Temp Pulse Resp BP Pulse Ox O2 Del Method 36.8 C 101 H 18 138/91 H 95 Room Air 08/07/25 06:04 08/07/25 06:04 08/07/25 06:04 08/07/25 06:04 08/07/25 06:04 08/07/25 06:04 Oxygen Delivery Method Room Air Weight: 66.8 kg Body Mass Index (BMI) 22.4 Intake & Output: Intake and Output for Last 24 Hours 08/05/25 08/06/25 08/07/25 23:59 23:59 23:59 Intake Total 1050 / 1050 Output Total 1650 / 1650 Balance -600 / -600 Lab / Micro Data 08/07/25 01:42 08/07/25 01:42 Labs: Laboratory Results - last 24 hr 08/07/25 01:42: WBC 5.4, RBC 3.38 L, Hgb 9.9 L, Hct 30.2 L, MCV 89.3, MCH 29.3, MCHC 32.8, RDW Std Deviation 47.5 H, RDW Coeff of Macho 14.9 H, Plt Count 178, MPV 10.4, Immature Gran % (Auto) 2.200 H, Neut % (Auto) 58.4, Lymph % (Auto) 24.4, [place] % (Auto) 13.7 H, Eos % (Auto) 0.4, Baso % (Auto) 0.9, Absolute Neuts (auto) 3.2, Absolute Lymphs (auto) 1.32, Nucleated RBC % 0, PT 19.3 H, INR 1.6, APTT 34.8, Sodium 139, Potassium 4.1, Chloride 106, Carbon Dioxide 24.8, Anion Gap 8, BUN 28 H, Creatinine 0.95, Estim Creat Clear Calc 59.00, Est GFR (MDRD) Non-Af 81, BUN/Creatinine Ratio 29.7 H, Glucose 119 H, Lactic Acid < 1.0, Calcium 8.0, Troponin T High Sens 19 08/07/25 02:28: Urine Color Yellow, Urine Clarity Clear, Urine pH 8.0, Ur Specific [place] 1.015, Urine Protein Negative, Urine Glucose (UA) Normal, Urine Ketones Negative, Urine Occult Blood Negative, Urine Nitrite Negative, Urine Bilirubin Negative, Urine Urobilinogen Normal, Ur Leukocyte Esterase Negative, Urine RBC 0-5 SEEN, Urine WBC 0-5 SEEN, Ur Squamous Epith Cells 0 SEEN, Urine Bacteria 0 SEEN, Urine Mucus 0 SEEN 08/07/25 03:37: Troponin T Hi Sens 2 Hr 19 08/07/25 06:34: Magnesium 2.1, Troponin T Hi Sens 4Hr 18, TSH 0.592 Micro: Microbiology 08/07/25 02:28 Urine, Clean Catch Legionella Antigen - Final 08/07/25 02:28 Urine, Clean Catch Streptococcus pneumoniae Antigen (M - Final 08/07/25 01:55 Mucosa - Nasopharyngeal SARS-CoV-2, Influenza & RSV (PCR) - Final Radiography Diagnostic Testing: Radiology Impression Chest X-Ray 08/07/25 02:02 IMPRESSION: Faint bilateral lower lung zone pneumonic consolidation, progressed since the prior study. Reading Location: [place] [address] 08/07/25 04:57 IMPRESSION: No obvious major pulmonary arterial thromboembolism. Mild cardiomegaly. Minimal pericardial effusion. Mild bilateral pleural effusions, left more evident than right with bilateral lower lung lobes subsegmental consolidative and atelectatic changes Bilateral pulmonary patchy parenchymal veiling with smooth interlobular septae and subpleural lines thickening associated with scattered atelectatic plates. The constellation of findings are worrisome of interstitial/cardiogenic pulmonary edema. Advise clinical correlation. Reading Location: [place] [address] Physical Exam Const alert and no apparent distress Constitutional Narrative: sleeping. easily awoke. weak voice. Resp normal respiratory effort and no retractions Resp Narrative: coarse breath sounds. Cardio regular rate, regular rhythm, S1 normal heart sound and S2 normal heart sound GI normal to inspection, nondistended, normoactive bowel sounds, soft to palpation, non-tender and non-distended GI Narrative: PEG in place Extremity normal to inspection and full ROM Neuro Sensorium / Orientation: awake Assessment & Plan Assessment/Plan (1) Pneumonia: QUALIFIERS: Laterality: bilateral Lung location: lower lobe of lung Pneumonia type: due to unspecified organism Qualified Code(s): J18.9 - Pneumonia, unspecified organism (2) Dehydration: (3) Generalized weakness: (4) Parkinson's disease: QUALIFIERS: Dyskinesia presence: unspecified whether dyskinesia Fluctuating manifestations: unspecified whether manifestations fluctuate Qualified Code(s): G20.A1 - Parkinson's disease without dyskinesia, without mention of fluctuations (5) Squamous cell carcinoma of oropharynx: (6) History of DVT (deep vein thrombosis): (7) Chronic anticoagulation: PLAN: Plan Pneumonia suspect pneumococcal v aspiration given h/o dysphagia/PD abx with CTX and azithromycin guaifenesin strep and legionella antigens negative. COVID/influenza/RSV negative. BCx, UCx, resp panel pending. Dehydration; with elevated BUN/creatinine ratio of 29.7 present on admission complicating #1 - Gently volume resuscitate and recheck renal indices daily to follow trend for improvement. Debility in the setting of previously known Parkinson's PT/OT and Case Management to consult Chronic medical conditions: History of Squamous Cell Throat Cancer with chronic cough; currently undergoing chemotherapy and radiation last chemotherapy ~2 weeks ago. History of DVT; on apixaban twice daily Chronic dysphagia; s/p G-tube on tube feed 4 x daily - Continue tube feed via G-tube according to established schedule. orthostatic hypotension with syncope; on fludrocortisone - Resume fludrocortisone as before. Hypothyroidism; on levothyroxine - Continue levothyroxine and check TSH. History of ocular migraine headaches - Noted with no evidence of recurrence at this time. BPH; on tamsulosin twice daily - Present therapy to be continued. Chronic constipation; on senna twice daily - Maintain current bowel regimen. GERD; on pantoprazole - Resume PPI. OA; with chronic low back pain - We will follow pain regimen and scales outlined in DVT prophylaxis - Patient already on apixaban Charges/Coding Visit Charges Inpatient E&M: 98293 Subs Hosp L2
[2025-08-07] MEDS: Potassium Chloride Oral Soln 20 MEQ/15 ML UDC 40 MEQ GT ×2 (11:09→17:46)
[2025-08-07] MEDS: Senna/Docusate Sodium 1 Tablet 2 TABLET GT ×2 (11:10→22:16)
[2025-08-07] MEDS: APIXABAN 5 MG TABLET 10 MG PO ×2 (11:10→22:17)
[2025-08-07] MEDS: PRUCALOPRIDE SUCCINATE 2 MG TABLET PO (15:17)
[2025-08-07] MEDS: Azithromycin 500 MG in 0.9% Normal Saline (250mL Bag) 250 ML 250 MG IV (22:07)
[2025-08-08 05:41] VITALS: BP 125/75; PULSE 100; RESP 18; TEMP 36.8; O2SAT 95
[2025-08-08 05:42] VITALS: BMI 23.1
[2025-08-08 05:43] LABS: Hematocrit 29.5 % (40-54); Hemoglobin 9.9 g/dL (13.0-16.5); Immature Granulocytes Count 0.070 X10^3/uL (0.0-0.0); Mean Corp Hgb Conc 33.6 g/dL (32-36); Mean Corpuscular Volume 89.4 fL (80-94); Mean Platelet Vol. 10.3 fl (6.2-12.0); NRBC Flagged by Analyzer 0 % (0-5); Platelet Count 187 K/mm3 (150-450); RBC Distribution Width CV 14.9 % (11.6-14.6); RBC Distribution Width SD 46.7 fl (35.1-43.9); Red Blood Count 3.30 M/mm3 (4.6-6.2); White Blood Count 4.2 K/mm3 (4.4-11.0)
[2025-08-08] MEDS: Chlorhexidine 480 ML 15 ML PO ×3 (05:44→23:36)
[2025-08-08] MEDS: Jevity 1.5. 1,000 ML Bottle 240 ML GT ×5 (05:44→23:36)
[2025-08-08] MEDS: Lactobacillis Acidophilus 1 CAP GT ×3 (05:44→23:36)
[2025-08-08 06:03] LABS: AST(SGOT) 25 U/L (<=37); Alanine Aminotransfer ALT/SGPT 17 U/L (<=46); Albumin, Serum 2.9 g/dL (3.4-4.8); Alkaline Phosphatase 69 U/L (40-129); Anion Gap 7 (5-15); BUN 18 mg/dL (4-19); BUN/Creat Ratio 23.4 RATIO (10-20); Calcium,Total 8.0 mg/dL (7.6-11.0); Carbon Dioxide 23.9 mmol/L (21.0-32.0); Chloride 110 mmol/L (98-108); Estimated Creatinine Clearance 70.06 ml/min (50-250); Globulin 2.6 g/dL (2.2-4.2); Glucose 120 mg/dL (70-99); Potassium 3.9 mmol/L (3.3-5.1)
--- NOTE | 2025-08-08 07:46 | PN.HOSP_ITS ---
Reason for Visit
--- NOTE | 2025-08-08 07:46 | PCM.PN.HOSP ---
Reason for Visit Chief Complaint: Generalized Weakness and Shortness of Breath. Subjective Subjective Feeling well. No new issues. Objective Data Objective Data Vital Signs: Vital Signs Temp Pulse Resp BP Pulse Ox O2 Del Method 36.8 C 100 18 125/75 H 95 Room Air 08/08/25 05:41 08/08/25 05:41 08/08/25 05:41 08/08/25 05:41 08/08/25 05:41 08/08/25 06:10 Oxygen Delivery Method Room Air Weight: 69.1 kg Body Mass Index (BMI) 23.1 Intake & Output: Intake and Output for Last 24 Hours 08/06/25 08/07/25 08/08/25 23:59 23:59 23:59 Intake Total 4125.00 / 4125.00 698.33 / 698.33 Output Total 3900 / 3900 1100 / 1100 Balance 225.00 / 225.00 -401.67 / -401.67 Lab / Micro Data 08/08/25 05:15 08/08/25 05:15 Labs: Laboratory Results - last 24 hr 08/08/25 05:15: WBC 4.2 L, RBC 3.30 L, Hgb 9.9 L, Hct 29.5 L, MCV 89.4, MCH 30.0, MCHC 33.6, RDW Std Deviation 46.7 H, RDW Coeff of Macho 14.9 H, Plt Count 187, MPV 10.3, Immature Gran % (Auto) 1.700 H, Neut % (Auto) 57.8, Lymph % (Auto) 26.1, [place] % (Auto) 12.5 H, Eos % (Auto) 1.4, Baso % (Auto) 0.5, Absolute Neuts (auto) 2.4, Absolute Lymphs (auto) 1.09, Nucleated RBC % 0, Sodium 140, Potassium 3.9, Chloride 110 H, Carbon Dioxide 23.9, Anion Gap 7, BUN 18, Creatinine 0.76, Estim Creat Clear Calc 70.06, Est GFR (MDRD) Non-Af 90, BUN/Creatinine Ratio 23.4 H, Glucose 120 H, Calcium 8.0, Total Bilirubin 0.30, AST 25, ALT 17, Alkaline Phosphatase 69, Total Protein 5.5 L, Albumin 2.9 L, Globulin 2.6, Albumin/Globulin Ratio 1.1 Micro: Microbiology 08/07/25 06:47 Mucosa - Nasopharyngeal Respiratory Panel (PCR) - Final 08/07/25 02:28 Urine, Clean Catch Legionella Antigen - Final 08/07/25 02:28 Urine, Clean Catch Streptococcus pneumoniae Antigen (M - Final 08/07/25 01:55 Mucosa - Nasopharyngeal SARS-CoV-2, Influenza & RSV (PCR) - Final Physical Exam Const alert and no apparent distress Constitutional Narrative: weak voice. follows commands. HEENT head/scalp atraumatic and moist oral mucous membranes Resp normal respiratory effort, no retractions, no use of accessory muscles and clear to auscultation bilaterally Cardio regular rate, regular rhythm, S1 normal heart sound and S2 normal heart sound GI normal to inspection, nondistended, normoactive bowel sounds, soft to palpation and non-tender Extremity normal to inspection and full ROM Neuro oriented x3, CN's II-XII intact bilaterally, moves all extremities and no focal motor deficits Assessment & Plan Assessment/Plan (1) Pneumonia: QUALIFIERS: Laterality: bilateral Lung location: lower lobe of lung Pneumonia type: due to unspecified organism Qualified Code(s): J18.9 - Pneumonia, unspecified organism (2) Dehydration: (3) Generalized weakness: (4) Parkinson's disease: QUALIFIERS: Dyskinesia presence: unspecified whether dyskinesia Fluctuating manifestations: unspecified whether manifestations fluctuate Qualified Code(s): G20.A1 - Parkinson's disease without dyskinesia, without mention of fluctuations (5) Squamous cell carcinoma of oropharynx: PLAN: Plan Pneumonia suspect pneumococcal v aspiration given h/o dysphagia/PD abx with CTX and azithromycin guaifenesin strep and legionella antigens negative. COVID/influenza/RSV negative. Respiratory panel negative. BCx, UCx. Dehydration; with elevated BUN/creatinine ratio of 29.7 present on admission complicating #1 - Gently volume resuscitate and recheck renal indices daily to follow trend for improvement. Debility in the setting of previously known Parkinson's PT/OT and Case Management to consult Chronic medical conditions: History of Squamous Cell Throat Cancer with chronic cough; currently undergoing chemotherapy and radiation last chemotherapy. Follow up with med and rad-onc. I told that chemotherapy would have to wait until after discharge. She indicated that he received XRT while in the hospital last admission. He did see Dr. Guerin after discharge, but I cannot see that he had XRT while he was in the hospital. XRT closed today, so I cannot verify. Will need to verify if that could be done inpatient or if it is to be deferred to outpt on 08/09 History of DVT; on apixaban twice daily Chronic dysphagia; s/p G-tube on tube feed 4 x daily - Continue tube feed via G-tube according to established schedule. orthostatic hypotension with syncope; on fludrocortisone - Resume fludrocortisone as before. Hypothyroidism; on levothyroxine - Continue levothyroxine and check TSH. History of ocular migraine headaches - Noted with no evidence of recurrence at this time. BPH; on tamsulosin twice daily - Present therapy to be continued. Chronic constipation; on senna twice daily - Maintain current bowel regimen. GERD; on pantoprazole - Resume PPI. OA; with chronic low back pain - We will follow pain regimen and scales outlined in DVT prophylaxis - Patient already on apixaban Disposition: plan for SNF. Pt doing well medically, so likely will be medically ready for discharge on 08/09. Precertification can begin then, unless his situation deteriorates in the interim. DW patient's at bedside. Charges/Coding Visit Charges Inpatient E&M: 02519 Subs Hosp L2
[2025-08-08 08:00] VITALS: BP 117/67; PULSE 71; RESP 18; TEMP 36.5; O2SAT 97
[2025-08-08] MEDS: PRUCALOPRIDE SUCCINATE 2 MG TABLET PO (10:14)
[2025-08-08] MEDS: Senna/Docusate Sodium 1 Tablet 2 TABLET GT ×2 (10:14→23:36)
[2025-08-08] MEDS: Potassium Chloride Oral Soln 20 MEQ/15 ML UDC 40 MEQ GT ×2 (10:14→18:43)
[2025-08-08] MEDS: APIXABAN 5 MG TABLET 10 MG PO ×2 (10:14→23:35)
[2025-08-08 14:05] VITALS: BP 120/61; PULSE 102; RESP 18; TEMP 36.7; O2SAT 98
[2025-08-08] MEDS: Sodium Chloride 0.65% 1 SPRAY SPRAY.BTL NASAL (15:11)
[2025-08-08] MEDS: 0.9% Normal Saline (250mL Bag) 250 ML 15 ML IV (21:48)
[2025-08-08 22:55] VITALS: BP 114/72; PULSE 98; RESP 22; TEMP 37.1; O2SAT 94
[2025-08-08] MEDS: 0.9% Saline Lock 10 ML Syringe IV (23:28)
[2025-08-08] MEDS: Azithromycin 500 MG in 0.9% Normal Saline (250mL Bag) 250 ML 250 MG IV (23:29)
[2025-08-09 03:17] VITALS: BMI 23.1
[2025-08-09 04:07] VITALS: BP 130/88; PULSE 108; RESP 22; TEMP 36.4; O2SAT 95
[2025-08-09 04:12] LABS: Hematocrit 27.5 % (40-54); Hemoglobin 9.3 g/dL (13.0-16.5); Immature Granulocytes Count 0.030 X10^3/uL (0.0-0.0); Mean Corp Hgb Conc 33.8 g/dL (32-36); Mean Corpuscular Volume 89.6 fL (80-94); Mean Platelet Vol. 10.2 fl (6.2-12.0); NRBC Flagged by Analyzer 0 % (0-5); Platelet Count 199 K/mm3 (150-450); RBC Distribution Width CV 15.1 % (11.6-14.6); RBC Distribution Width SD 47.3 fl (35.1-43.9); Red Blood Count 3.07 M/mm3 (4.6-6.2); White Blood Count 4.6 K/mm3 (4.4-11.0)
[2025-08-09 04:50] LABS: Anion Gap 8 (5-15); BUN 17 mg/dL (4-19); BUN/Creat Ratio 21.5 RATIO (10-20); Calcium,Total 7.8 mg/dL (7.6-11.0); Carbon Dioxide 23.9 mmol/L (21.0-32.0); Chloride 107 mmol/L (98-108); Estimated Creatinine Clearance 70.06 ml/min (50-250); Glucose 123 mg/dL (70-99); Potassium 3.6 mmol/L (3.3-5.1)
[2025-08-09] MEDS: Lactobacillis Acidophilus 1 CAP GT ×3 (05:50→22:25)
[2025-08-09] MEDS: Jevity 1.5. 1,000 ML Bottle 240 ML GT ×5 (05:50→22:26)
[2025-08-09] MEDS: Chlorhexidine 480 ML 15 ML PO ×2 (05:50→22:26)
[2025-08-09] MEDS: Sodium Chloride 0.65% 1 SPRAY SPRAY.BTL NASAL (05:56)
[2025-08-09 05:57] VITALS: PULSE 103; RESP 22; O2SAT 95
[2025-08-09] MEDS: Albuterol 2.5 MG/3 ML VIAL.NEB. INHALATION (07:10)
[2025-08-09 08:49] VITALS: PULSE 77; RESP 18
--- NOTE | 2025-08-09 09:24 | PN.HOSP_ITS ---
Reason for Visit
--- NOTE | 2025-08-09 09:24 | PCM.PN.HOSP ---
Reason for Visit Chief Complaint: Generalized Weakness and Shortness of Breath. Subjective Subjective Patient is an 82-year-old gentleman who slipped and fell was working on his car. He subsequently developed right hip pain presented to the ED imaging studies obtained did show A mildly impacted intratrochanteric fracture of the proximal right femur is noted. No dislocation. Objective Data Objective Data Vital Signs: Vital Signs Temp Pulse Resp BP Pulse Ox O2 Del Method 97.5 F L 77 18 130/88 H 95 Room Air 08/09/25 04:07 08/09/25 08:49 08/09/25 08:49 08/09/25 04:07 08/09/25 05:57 08/09/25 08:48 Oxygen Delivery Method Room Air Weight: 69.2 kg Body Mass Index (BMI) 23.1 Intake & Output: Intake and Output for Last 24 Hours 08/07/25 08/08/25 08/09/25 23:59 23:59 23:59 Intake Total 4365.00 / 4365.00 838.33 / 1168.33 580 / 580 Output Total 3900 / 3900 1750 / 2200 950 / 950 Balance 465.00 / 465.00 -911.67 / -1031.67 -370 / -370 Lab / Micro Data 08/09/25 03:36 08/09/25 03:36 Labs: Laboratory Results - last 24 hr 08/09/25 03:36: WBC 4.6, RBC 3.07 L, Hgb 9.3 L, Hct 27.5 L, MCV 89.6, MCH 30.3, MCHC 33.8, RDW Std Deviation 47.3 H, RDW Coeff of Macho 15.1 H, Plt Count 199, MPV 10.2, Immature Gran % (Auto) 0.700, Neut % (Auto) 60.8, Lymph % (Auto) 25.3, [place] % (Auto) 10.5 H, Eos % (Auto) 2.0, Baso % (Auto) 0.7, Absolute Neuts (auto) 2.8, Absolute Lymphs (auto) 1.16, Nucleated RBC % 0, Sodium 139, Potassium 3.6, Chloride 107, Carbon Dioxide 23.9, Anion Gap 8, BUN 17, Creatinine 0.77, Estim Creat Clear Calc 70.06, Est GFR (MDRD) Non-Af 90, BUN/Creatinine Ratio 21.5 H, Glucose 123 H, Calcium 7.8 Micro: Microbiology 08/07/25 06:47 Mucosa - Nasopharyngeal Respiratory Panel (PCR) - Final 08/07/25 02:28 Urine, Clean Catch Legionella Antigen - Final 08/07/25 02:28 Urine, Clean Catch Streptococcus pneumoniae Antigen (M - Final 08/07/25 01:55 Mucosa - Nasopharyngeal SARS-CoV-2, Influenza & RSV (PCR) - Final Physical Exam Narrative GENERAL: Frail looking HEENT: Atraumatic; normocephalic EYES; Anicteric, Normal Conjunctiva NECK; radiation dermatitis around the neck RESPIRATORY: Diminished to auscultation CARDIOVASCULAR: Regular S1 S2, GI: soft, normoactive bowel sounds, : No Renal angle tenderness; EXTREMITIES: No edema, no clubbing, MUSCULOSKELETAL: no muscle wasting NEURO: Awake; no lateralizing signs. SKIN: No Rash PSYCH; Flat affect Assessment & Plan Assessment/Plan (1) Pneumonia: QUALIFIERS: Laterality: bilateral Lung location: lower lobe of lung Pneumonia type: due to unspecified organism Qualified Code(s): J18.9 - Pneumonia, unspecified organism (2) Dehydration: (3) Generalized weakness: (4) Parkinson's disease: QUALIFIERS: Dyskinesia presence: unspecified whether dyskinesia Fluctuating manifestations: unspecified whether manifestations fluctuate Qualified Code(s): G20.A1 - Parkinson's disease without dyskinesia, without mention of fluctuations (5) Squamous cell carcinoma of oropharynx: PLAN: Plan Patient is an 80-year-old gentleman with a history of squamous cell carcinoma involving the throat presented with shortness of breath diagnosed with pneumonia 1. Pneumonia ? Suspected to be secondary to aspiration pneumonia in view of patient dysphagia from head and neck CA. Patient was started on broad-spectrum antibiotic therapy. Cultures sent please on supplemental oxygen 2. 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 Patient is currently on chemoradiation scheduled to undergo treatment this afternoon 08/09/2025. Patient has been seen in consultation by oncology notes and recommendations reviewed 3. Chronic dysphagia Secondary to head and neck CA status post PEG tube placement will continue with patient home tube feed 4. 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 Hypothyroidism ? Patient is on levothyroxine home dose continued 6. Orthostatic hypotension ? Patient is on fludrocortisone continued 7. Chronic constipation ? Did continue patient bowel regimen 8. GERD ? On PPI 9. BPH with lower urinary obstructive symptoms - Patient treated with tamsulosin 10. Parkinson's disease ? Patient is on carbidopa/levodopa continue 11. Physical deconditioning ? Requested for PT OT eval and social media marketing specialist to assist with discharge planning 12. Generalized osteoarthritis ? Pain meds as needed 13. DVT prophylaxis ? Patient on apixaban Time spent in the patient's overall evaluation,decision-making process, review of diagnostic data, adjustment of management, discussion with other providers, patient's family () nursing nursing and ancillary staff involved in patient's care documentation,40 Minutes Charges/Coding Visit Charges Inpatient E&M: 42214 [facility] Hosp L2
[2025-08-09 09:35] VITALS: BP 104/54; PULSE 97; RESP 18; TEMP 37.4; O2SAT 97
[2025-08-09] MEDS: Potassium Chloride Oral Soln 20 MEQ/15 ML UDC 40 MEQ GT ×2 (09:45→18:35)
[2025-08-09] MEDS: Senna/Docusate Sodium 1 Tablet 2 TABLET GT ×2 (09:47→22:25)
[2025-08-09] MEDS: PRUCALOPRIDE SUCCINATE 2 MG TABLET PO (09:47)
[2025-08-09] MEDS: APIXABAN 5 MG TABLET 10 MG PO ×2 (09:48→22:26)
--- NOTE | 2025-08-09 10:06 | CASEMGMT ---
Discharge Planning A list of HH?providers including quality and resource use data and consistent with the patient's preferred geographic region, medical needs, and insurance network was created in [facility] Guide.? This list was provided to the SW. Fara Rider, Discharge Planning Asst.
--- NOTE | 2025-08-09 10:59 | CASEMGMT ---
Addendum entered by Frida Pacheco 08/09/25 16:06: [facility] accepted and will resume services with an anticipated start date of 08/11/25. JOSH prather available to follow. [employer] Addendum entered by Frida Pacheco 08/09/25 15:47: SW followed up with pt following therapy today. Pt noted by therapy to have ambulated 115' x 2. Pt expressed that she will give [facility] another try, but is unable to accept pt at home until tomorrow due to not having help with pt care until that time. Hospitalist updated. [facility] referral placed. [employer] Original Note: Social Work- SW met with pt and pt to discuss discharge planning. Pt ambulated 250' with therapy yesterday; therapy to see this afternoon. Pt wants to make sure pt is able to maintain that level of activity, as pt had only been home two days prior to readmission. Pt reports that they would be agreeable to resumption of [facility] if appropriate. Pt reports that they would not need SW services, but would like SN more than once per week. SW remains available to follow. [employer]
[2025-08-09 13:55] VITALS: BP 121/73; PULSE 92; RESP 16; TEMP 37.2; O2SAT 97
[2025-08-09] MEDS: 0.9% Saline Lock 10 ML Syringe IV ×2 (13:56→22:21)
[2025-08-09] MEDS: MELATONIN 3 MG TABLET PO (22:28)
[2025-08-09] MEDS: Azithromycin 500 MG in 0.9% Normal Saline (250mL Bag) 250 ML 250 MG IV (23:14)
[2025-08-10 02:00] VITALS: BP 115/68; PULSE 90; RESP 18; TEMP 36.6; O2SAT 98
[2025-08-10 03:40] VITALS: BMI 23.2
[2025-08-10] MEDS: Jevity 1.5. 1,000 ML Bottle 240 ML GT ×2 (05:51→10:07)
[2025-08-10] MEDS: Lactobacillis Acidophilus 1 CAP GT (05:52)
[2025-08-10] MEDS: Chlorhexidine 480 ML 15 ML PO (05:52)
[2025-08-10 06:07] LABS: Hematocrit 29.1 % (40-54); Hemoglobin 9.8 g/dL (13.0-16.5); Immature Granulocytes Count 0.040 X10^3/uL (0.0-0.0); Mean Corp Hgb Conc 33.7 g/dL (32-36); Mean Corpuscular Volume 88.4 fL (80-94); Mean Platelet Vol. 9.9 fl (6.2-12.0); NRBC Flagged by Analyzer 0 % (0-5); Platelet Count 238 K/mm3 (150-450); RBC Distribution Width CV 15.0 % (11.6-14.6); RBC Distribution Width SD 47.0 fl (35.1-43.9); Red Blood Count 3.29 M/mm3 (4.6-6.2); White Blood Count 3.7 K/mm3 (4.4-11.0)
[2025-08-10 06:28] LABS: Anion Gap 9 (5-15); BUN 14 mg/dL (4-19); BUN/Creat Ratio 18.3 RATIO (10-20); Calcium,Total 7.9 mg/dL (7.6-11.0); Carbon Dioxide 23.0 mmol/L (21.0-32.0); Chloride 106 mmol/L (98-108); Estimated Creatinine Clearance 70.06 ml/min (50-250); Glucose 116 mg/dL (70-99); Magnesium 2.0 mg/dL (1.5-2.2); Potassium 4.0 mmol/L (3.3-5.1)
[2025-08-10 06:35] VITALS: O2SAT 95
--- NOTE | 2025-08-10 07:19 | PN.HOSP_ITS ---
Reason for Visit
--- NOTE | 2025-08-10 07:19 | PCM.PN.HOSP ---
Reason for Visit Chief Complaint: Generalized Weakness and Shortness of Breath. Subjective Subjective Patient did well with therapy the day prior. Plan is for patient to be assessed for discharge Objective Data Objective Data Vital Signs: Vital Signs Temp Pulse Resp BP Pulse Ox O2 Del Method 98 F 90 18 115/68 98 Room Air 08/10/25 02:00 08/10/25 02:00 08/10/25 02:00 08/10/25 02:00 08/10/25 02:00 08/10/25 06:35 Oxygen Delivery Method Room Air Weight: 69.3 kg Body Mass Index (BMI) 23.2 Intake & Output: Intake and Output for Last 24 Hours 08/08/25 08/09/25 08/10/25 23:59 23:59 23:59 Intake Total 838.33 / 1168.33 1900 / 2320 1090 / 1090 Output Total 1750 / 2200 1850 / 2500 1900 / 1900 Balance -911.67 / -1031.67 50 / -180 -810 / -810 Medical Nutrition Assessment Dietitian: Malnutrition Criteria Met Start: 08/09/25 14:18 Freq: Status: Active Protocol: Document 08/09/25 14:18 SLA (Rec: 08/09/25 14:18 SLA 10..25.7) Nutrition Malnutrition Evidence of Yes Malnutrition Exists Malnutrition (severe Chronic ): Evidenced By Suboptimal Energy Intake (Severe),Weight Loss (Severe) Clinical Problem Biting/Chewing Difficulty Etiology swallowing r/t dysphagia caused by oropharyngeal cancer Signs/Symptoms as evidenced by need for modified consistency diet Status Active Problem Chronic Disease or Condition Related Malnutrition Etiology related to dysphagia d/t oropharyngeal cancer Signs/Symptoms as evidenced by 5.1% wt loss x 9 days 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 Rec liberal regular diet - consistency per AGRONOMIST - for pleasure feeds TF rec for home use: Compleat Standard 1.4 - 240 ml (1 carton) 5x/day w/ 90 ml water flush before and after each bolus feed to provide ~ 1750 ynes/ 90 gm pro/ 1870 ml fluid/day Lab / Micro Data 08/10/25 05:37 08/10/25 05:37 Labs: Laboratory Results - last 24 hr 08/10/25 05:37: WBC 3.7 L, RBC 3.29 L, Hgb 9.8 L, Hct 29.1 L, MCV 88.4, MCH 29.8, MCHC 33.7, RDW Std Deviation 47.0 H, RDW Coeff of Macho 15.0 H, Plt Count 238, MPV 9.9, Immature Gran % (Auto) 1.100 H, Neut % (Auto) 50.1, Lymph % (Auto) 34.4, [place] % (Auto) 11.4 H, Eos % (Auto) 1.9, Baso % (Auto) 1.1 H, Absolute Neuts (auto) 1.9 L, Absolute Lymphs (auto) 1.27, Nucleated RBC % 0, Sodium 138, Potassium 4.0, Chloride 106, Carbon Dioxide 23.0, Anion Gap 9, BUN 14, Creatinine 0.75, Estim Creat Clear Calc 70.06, Est GFR (MDRD) Non-Af 91, BUN/Creatinine Ratio 18.3, Glucose 116 H, Calcium 7.9, Phosphorus 3.0, Magnesium 2.0 Micro: Microbiology 08/07/25 02:14 Blood Culture (Wb) - Anticubital Right Blood Culture - Preliminary No growth in 48 hours. 08/07/25 01:42 Blood Culture (Wb) - Left Wrist Blood Culture - Preliminary No growth in 48 hours. 08/07/25 02:28 Urine, Random Urine Culture - Final Culture exhibits no growth. 08/07/25 06:47 Mucosa - Nasopharyngeal Respiratory Panel (PCR) - Final 08/07/25 02:28 Urine, Clean Catch Legionella Antigen - Final 08/07/25 02:28 Urine, Clean Catch Streptococcus pneumoniae Antigen (M - Final 08/07/25 01:55 Mucosa - Nasopharyngeal SARS-CoV-2, Influenza & RSV (PCR) - Final Physical Exam Narrative GENERAL: Frail looking HEENT: Atraumatic; normocephalic EYES; Anicteric, Normal Conjunctiva NECK; radiation dermatitis around the neck RESPIRATORY: Diminished to auscultation CARDIOVASCULAR: Regular S1 S2, GI: soft, normoactive bowel sounds, : No Renal angle tenderness; EXTREMITIES: No edema, no clubbing, MUSCULOSKELETAL: no muscle wasting NEURO: Awake; no lateralizing signs. SKIN: No Rash PSYCH; Flat affect Assessment & Plan Assessment/Plan (1) Pneumonia: QUALIFIERS: Laterality: bilateral Lung location: lower lobe of lung Pneumonia type: due to unspecified organism Qualified Code(s): J18.9 - Pneumonia, unspecified organism (2) Dehydration: (3) Generalized weakness: (4) Parkinson's disease: QUALIFIERS: Dyskinesia presence: unspecified whether dyskinesia Fluctuating manifestations: unspecified whether manifestations fluctuate Qualified Code(s): G20.A1 - Parkinson's disease without dyskinesia, without mention of fluctuations (5) Squamous cell carcinoma of oropharynx: PLAN: Plan Patient is an 80-year-old gentleman with a history of squamous cell carcinoma involving the throat presented with shortness of breath diagnosed with pneumonia 1. Pneumonia ? Suspected to be secondary to aspiration pneumonia in view of patient dysphagia from head and neck CA. Patient was started on broad-spectrum antibiotic therapy. Cultures sent placed on supplemental oxygen ? 08/10/2025; patient currently off oxygen. Plan is for patient to be assessed for discharge home with home health 2. 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 Patient is currently on chemoradiation scheduled to undergo treatment this afternoon 08/09/2025. Patient has been seen in consultation by oncology notes and recommendations reviewed 3. Chronic dysphagia Secondary to head and neck CA status post PEG tube placement will continue with patient home tube feed 4. 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 Hypothyroidism ? Patient is on levothyroxine home dose continued 6. Orthostatic hypotension ? Patient is on fludrocortisone continued 7. Chronic constipation ? Did continue patient bowel regimen 8. GERD ? On PPI 9. BPH with lower urinary obstructive symptoms - Patient treated with tamsulosin 10. Parkinson's disease ? Patient is on carbidopa/levodopa continue 11. Physical deconditioning ? Requested for PT OT eval and social services specialist to assist with discharge planning ? 08/10/2025; patient to be discharged home with home health 12. Generalized osteoarthritis ? Pain meds as needed 13. DVT prophylaxis ? Patient on apixaban Time spent in the patient's overall evaluation,decision-making process, review of diagnostic data, adjustment of management, discussion with other providers, patient's family () nursing nursing and ancillary staff involved in patient's care documentation, 35 Minutes Charges/Coding Visit Charges Inpatient E&M: 98030 Subs Hosp L2
--- NOTE | 2025-08-10 08:33 | PCM.DC.SUM ---
Providers Date of Admission: 08/07/25 Date of Discharge: 08/10/25 Primary Care Physician: Eloina Chi MD Reason For Visit: SUSPECTED PNA, DEHYDRATION & GENERALIZED WEAKNESS Diagnosis Discharge Diagnosis (1) Pneumonia: Status: Acute Code(s): J18.9 - Pneumonia, unspecified organism Qualifiers: Pneumonia type: due to unspecified organism Laterality: bilateral Lung location: lower lobe of lung Qualified Code(s): J18.9 - Pneumonia, unspecified organism (2) Dehydration: Status: Acute Code(s): E86.0 - Dehydration (3) Generalized weakness: Status: Acute Code(s): R53.1 - Weakness (4) Parkinson's disease: Status: Acute Code(s): G20.A1 - Parkinson's disease without dyskinesia, without mention of fluctuations Qualifiers: Dyskinesia presence: unspecified whether dyskinesia Fluctuating manifestations: unspecified whether manifestations fluctuate Qualified Code(s): G20.A1 - Parkinson's disease without dyskinesia, without mention of fluctuations (5) 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 Pneumonia ? Suspected to be secondary to aspiration pneumonia in view of patient dysphagia from head and neck CA. Patient was started on broad-spectrum antibiotic therapy. Cultures sent placed on supplemental oxygen ? 08/10/2025; patient currently off oxygen. Plan is for patient to be assessed for discharge home with home health 2. 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 Patient is currently on chemoradiation scheduled to undergo treatment this afternoon 08/09/2025. Patient has been seen in consultation by oncology notes and recommendations reviewed 3. Chronic dysphagia Secondary to head and neck CA status post PEG tube placement will continue with patient home tube feed 4. 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 Hypothyroidism ? Patient is on levothyroxine home dose continued 6. Orthostatic hypotension ? Patient is on fludrocortisone continued 7. Chronic constipation ? Did continue patient bowel regimen 8. GERD ? On PPI 9. BPH with lower urinary obstructive symptoms - Patient treated with tamsulosin 10. Parkinson's disease ? Patient is on carbidopa/levodopa continue 11. Physical deconditioning ? Requested for PT OT eval and social media content manager to assist with discharge planning ? 08/10/2025; patient to be discharged home with home health 12. Generalized osteoarthritis ? Pain meds as needed 13. DVT prophylaxis ? Patient on apixaban Time spent in the patient's overall evaluation,decision-making process, review of diagnostic data, adjustment of management, discussion with other providers, patient's family () nursing nursing and ancillary staff involved in patient's care documentation, 35 Minutes Medications at Discharge Home Medications levothyroxine 50 mcg tablet 50 mcg PO QDAY thyroid 03/05/24 omeprazole 40 mg capsule,delayed release 40 mg PO QDAY gerd 03/05/24 tamsulosin 0.4 mg capsule 0.4 mg PO BID prostate 03/05/24 prucalopride 2 mg tablet (Motegrity) 2 mg PO DAILY 05/09/24 carbidopa ER 25 mg-levodopa 100 mg tablet,extended release 1 tab PO .qid parkinson 06/10/25 fludrocortisone 0.1 mg tablet 0.1 mg PO QDAY low bp 06/17/25 lidocaine-prilocaine 2.5 %-2.5 % topical cream 1 applic topical ONCE PRN port access 30 days #30 grams 06/28/25 ondansetron 8 mg disintegrating tablet 8 mg PO Q8H PRN nausea and vomiting #30 tabs 06/28/25 MAGIC MOUTH WASH (BMX) 180 mL suspension 15 ml PO .qid PRN pain #180 mL 07/07/25 sodium chloride 1,000 mg soluble tablet 1,000 mg PO QD-QID PRN electrolyte replenishment #30 tabs 07/26/25 guaifenesin 100 mg/5 mL oral liquid (Guaifed (guaifenesin)) 200 mg (10 mL) PO Q4H PRN congestion #500 mL 07/28/25 L.acidophil,salivari-Bifido bifidum-Strep thermoph 175 mg capsule 1 cap G-tube TID probiotic #0 caps 08/04/25 apixaban 5 mg (74 tabs) tablets in a dose pack (Eliquis DVT-PE Treat 30D Start) 5 mg PO BID blood thinner #74 tabs 08/04/25 chlorhexidine gluconate 0.12 % mouthwash 15 ml PO TID 12 weeks #1,893 mL 08/04/25 lactose-reduced food with fiber 0.06 gram-1.5 kcal/mL oral liquid (Jevity 1.5 Ynes) 240 ml G-tube 5X/DAY nutrition #0 mL 08/04/25 potassium chloride 20 mEq/15 mL oral liquid 40 meq (30 mL) G-tube BID 1 week #420 mL 08/04/25 sennosides 8.6 mg-docusate sodium 50 mg tablet (Stimulant Laxative Plus) 2 tab G-tube BID laxative #0 tabs 08/04/25 cefdinir 250 mg/5 mL oral suspension 300 mg (6 mL) PO BID 7 days #84 mL 08/10/25 sodium chloride 0.65 % nasal spray aerosol (Deep Sea Nasal) 1 spray NASAL TID PRN PRN NASAL DRYNESS #0 mL 08/10/25 Physical Exam Narrative GENERAL: Frail looking HEENT: Atraumatic; normocephalic EYES; Anicteric, Normal Conjunctiva NECK; radiation dermatitis around the neck RESPIRATORY: Diminished to auscultation CARDIOVASCULAR: Regular S1 S2, GI: soft, normoactive bowel sounds, : No Renal angle tenderness; EXTREMITIES: No edema, no clubbing, MUSCULOSKELETAL: no muscle wasting NEURO: Awake; no lateralizing signs. SKIN: No Rash PSYCH; Flat affect Medical Records Data Medical Nutrition Assessment Dietitian: Malnutrition Criteria Met Start: 08/09/25 14:18 Freq: Status: Active Protocol: Document 08/09/25 14:18 SLA (Rec: 08/09/25 14:18 SLA 10..25.7) Nutrition Malnutrition Evidence of Yes Malnutrition Exists Malnutrition (severe Chronic ): Evidenced By Suboptimal Energy Intake (Severe),Weight Loss (Severe) Clinical Problem Biting/Chewing Difficulty Etiology swallowing r/t dysphagia caused by oropharyngeal cancer Signs/Symptoms as evidenced by need for modified consistency diet Status Active Problem Chronic Disease or Condition Related Malnutrition Etiology related to dysphagia d/t oropharyngeal cancer Signs/Symptoms as evidenced 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 Rec liberal regular diet - consistency per CLERK OF WORKS - for pleasure feeds TF rec for home use: Compleat Standard 1.4 - 240 ml (1 carton) 5x/day w/ 90 ml water flush before and after each bolus feed to provide ~ 1750 ynes/ 90 gm pro/ 1870 ml fluid/day Weight / BMI Weight Weight: 69.3 kg Body Mass Index (BMI) 23.2 ABG / Lab / Microbiology Data 08/10/25 05:37 08/10/25 05:37 Laboratory: Laboratory Results - last 24 hr 08/10/25 05:37: WBC 3.7 L, RBC 3.29 L, Hgb 9.8 L, Hct 29.1 L, MCV 88.4, MCH 29.8, MCHC 33.7, RDW Std Deviation 47.0 H, RDW Coeff of Macho 15.0 H, Plt Count 238, MPV 9.9, Immature Gran % (Auto) 1.100 H, Neut % (Auto) 50.1, Lymph % (Auto) 34.4, [place] % (Auto) 11.4 H, Eos % (Auto) 1.9, Baso % (Auto) 1.1 H, Absolute Neuts (auto) 1.9 L, Absolute Lymphs (auto) 1.27, Nucleated RBC % 0, Sodium 138, Potassium 4.0, Chloride 106, Carbon Dioxide 23.0, Anion Gap 9, BUN 14, Creatinine 0.75, Estim Creat Clear Calc 70.06, Est GFR (MDRD) Non-Af 91, BUN/Creatinine Ratio 18.3, Glucose 116 H, Calcium 7.9, Phosphorus 3.0, Magnesium 2.0 Microbiology: Microbiology 08/07/25 02:14 Blood Culture (Wb) - Anticubital Right Blood Culture - Preliminary No growth in 48 hours. 08/07/25 01:42 Blood Culture (Wb) - Left Wrist Blood Culture - Preliminary No growth in 48 hours. 08/07/25 02:28 Urine, Random Urine Culture - Final Culture exhibits no growth. 08/07/25 06:47 Mucosa - Nasopharyngeal Respiratory Panel (PCR) - Final 08/07/25 02:28 Urine, Clean Catch Legionella Antigen - Final 08/07/25 02:28 Urine, Clean Catch Streptococcus pneumoniae Antigen (M - Final 08/07/25 01:55 Mucosa - Nasopharyngeal SARS-CoV-2, Influenza & RSV (PCR) - Final D/C Instructions DC O2, CPAP, BIPAP Needs Home O2 Discharge instructions: No Meaningful Use Info Meaningful Use Meaningful Use Diagnoses (Choose all that apply): None applicable Discharge Plan Admission Admit Date/Time: 08/07/25 05:24 Attending Provider: Jamarcus Mercedes Primary Care Provider: Eloina Chi Consulting Providers: Jamarcus Moran; Ariel Sadler Discharge Orders/Prescriptions Prescriptions: New Deep Sea Nasal 0.65 % Aerosol,[place] 1 spray NASAL TID PRN PRN (Reason: NASAL DRYNESS) Qty: 0 0RF cefdinir 250 mg/5 mL suspension for reconstitution 300 mg PO BID 7 Days Qty: 84 0RF Continued levothyroxine 50 mcg tablet 50 mcg PO QDAY omeprazole 40 mg capsule,delayed release(DR/EC) 40 mg PO QDAY tamsulosin 0.4 mg capsule 0.4 mg PO BID carbidopa-levodopa 25-100 mg tablet extended release 1 tab PO .qid fludrocortisone 0.1 mg tablet 0.1 mg PO QDAY ondansetron 8 mg tablet,disintegrating 8 mg PO Q8H PRN (Reason: nausea and vomiting) Qty: 30 1RF lidocaine-prilocaine 2.5-2.5 % cream 1 applic topical ONCE PRN (Reason: port access) 30 Days Qty: 30 2RF sodium chloride 1,000 mg tablet,soluble 1,000 mg PO QD-QID PRN (Reason: electrolyte replenishment) Qty: 30 2RF MAGIC MOUTH WASH (BMX) 180 mL suspension 15 ml PO .qid PRN (Reason: pain) Qty: 180 5RF Rx Instructions: diphenhydramine 12.5 mg/5 mL oral liquid 60 mL; aluminum-mag hydroxide-simethicone 400 mg-400 mg-40 mg/5 mL oral susp 60 mL; Lidocaine Viscous 2 % mucosal solution 60 mL; Per 180 mL guaifenesin [Guaifed (guaifenesin)] 100 mg/5 mL liquid 200 mg PO Q4H PRN (Reason: congestion) Qty: 500 3RF Rx Instructions: take 10 mL q4 hrs prn congestion prucalopride [Motegrity] 2 mg tablet 2 mg PO DAILY chlorhexidine gluconate 0.12 % Mouthwash 15 ml PO TID 84 Days Qty: 1893 0RF potassium chloride 20 mEq/15 mL Liquid 40 meq G-tube BID 7 Days Qty: 420 0RF L.acidoph,saliva-B.bif-S.therm 175 mg Capsule 1 cap G-tube TID Qty: 0 0RF Rx Instructions: for 2 weeks Jevity 1.5 Ynes 0.06 gram-1.5 kcal/mL Liquid 240 ml G-tube 5X/DAY Qty: 0 0RF sennosides-docusate sodium [Stimulant Laxative Plus] 8.6-50 mg Tablet 2 tab G-tube BID Qty: 0 0RF Eliquis DVT-PE Treat 30D Start 5 mg (74 tabs) tablets,dose pack 5 mg PO BID Qty: 74 0RF Rx Instructions: 10 mg (2 tabs) twice daily for 7 days till 08/11/25 and then 1 tab twice daily to continue Discontinued amoxicillin-pot clavulanate 875-125 mg tablet 1 tab PO BID Referrals / Follow Up: Eloina Chi MD [Primary Care Provider, Family Practice] - Within 2 Weeks Disposition Disposition (needs filled in before D/C Order can be placed): Home Health Service Charges/Coding Visit Charges Inpatient E&M: 67762 Disch Hosp >30min
[2025-08-10 08:40] VITALS: BP 105/56; PULSE 95; RESP 16; TEMP 36.8; O2SAT 95
--- NOTE | 2025-08-10 09:42 | PHA.DC_ITS ---
Pharmacy DC Med Rec Counseling
--- NOTE | 2025-08-10 09:42 | PHA.DC.MC.R ---
Pharmacy [facility] Counseling Pharmacy Service has performed discharge medication reconciliation and counseling for this patient. The patient's discharge medication list was reviewed for discrepancies and discrepancies were resolved. The patient was counseled on the following discharge medications and changes in medications for homegoing were reviewed. The Reason for Use, instructions for use, and potential side effects were reviewed for all new medications. The patient's questions regarding all of their medications were answered. 1. Cefdinir suspension 300 mg PO BID x 7 days 2. [place] nasal spray PRN nasal dryness The patient was able to verbally demonstrate an understanding of their discharge medications. Medications at Discharge Home Medications levothyroxine 50 mcg tablet 50 mcg PO QDAY thyroid 03/05/24 omeprazole 40 mg capsule,delayed release 40 mg PO QDAY gerd 03/05/24 tamsulosin 0.4 mg capsule 0.4 mg PO BID prostate 03/05/24 prucalopride 2 mg tablet (Motegrity) 2 mg PO DAILY 05/09/24 carbidopa ER 25 mg-levodopa 100 mg tablet,extended release 1 tab PO .qid parkinson 06/10/25 fludrocortisone 0.1 mg tablet 0.1 mg PO QDAY low bp 06/17/25 lidocaine-prilocaine 2.5 %-2.5 % topical cream 1 applic topical ONCE PRN port access 30 days #30 grams 06/28/25 ondansetron 8 mg disintegrating tablet 8 mg PO Q8H PRN nausea and vomiting #30 tabs 06/28/25 MAGIC MOUTH WASH (BMX) 180 mL suspension 15 ml PO .qid PRN pain #180 mL 07/07/25 sodium chloride 1,000 mg soluble tablet 1,000 mg PO QD-QID PRN electrolyte replenishment #30 tabs 07/26/25 guaifenesin 100 mg/5 mL oral liquid (Guaifed (guaifenesin)) 200 mg (10 mL) PO Q4H PRN congestion #500 mL 07/28/25 L.acidophil,salivari-Bifido bifidum-Strep thermoph 175 mg capsule 1 cap G-tube TID probiotic #0 caps 08/04/25 apixaban 5 mg (74 tabs) tablets in a dose pack (Eliquis DVT-PE Treat 30D Start) 5 mg PO BID blood thinner #74 tabs 08/04/25 chlorhexidine gluconate 0.12 % mouthwash 15 ml PO TID 12 weeks #1,893 mL 08/04/25 lactose-reduced food with fiber 0.06 gram-1.5 kcal/mL oral liquid (Jevity 1.5 Federico) 240 ml G-tube 5X/DAY nutrition #0 mL 08/04/25 potassium chloride 20 mEq/15 mL oral liquid 40 meq (30 mL) G-tube BID 1 week #420 mL 08/04/25 sennosides 8.6 mg-docusate sodium 50 mg tablet (Stimulant Laxative Plus) 2 tab G-tube BID laxative #0 tabs 08/04/25 cefdinir 250 mg/5 mL oral suspension 300 mg (6 mL) PO BID 7 days #84 mL 08/10/25 sodium chloride 0.65 % nasal spray aerosol (Deep Sea Nasal) 1 spray NASAL TID PRN PRN NASAL DRYNESS #0 mL 08/10/25
[2025-08-10] MEDS: PRUCALOPRIDE SUCCINATE 2 MG TABLET PO (10:05)
[2025-08-10] MEDS: Senna/Docusate Sodium 1 Tablet 2 TABLET GT (10:05)
[2025-08-10] MEDS: Potassium Chloride Oral Soln 20 MEQ/15 ML UDC 40 MEQ GT (10:06)
[2025-08-10] MEDS: APIXABAN 5 MG TABLET 10 MG PO (10:06)
[2025-08-10] MEDS: 0.9% Saline Lock 10 ML Syringe IV (10:48)
== END 2025-08-10 11:37 | disposition home health service (06) | DRG 177 ==
LOC: ED 04:57 → MS3 05:32
PROVIDERS: Admitting Provider Internal Medicine; Emergency Provider Emergency Medicine; PCP Family Medicine; Visit Provider Internal Medicine
DX: J69.0 Pneumonitis due to inhalation of food and vomit (principal); E43 Unspecified severe protein-calorie malnutrition; N13.8 Other obstructive and reflux uropathy; C10.9 Malignant neoplasm of oropharynx, unspecified; E86.0 Dehydration; R13.10 Dysphagia, unspecified; G20.A1 Parkinson's disease without dyskinesia, without mention of fluctuations; C44.92 Squamous cell carcinoma of skin, unspecified; E03.9 Hypothyroidism, unspecified; Z93.1 Gastrostomy status; I95.1 Orthostatic hypotension; K59.09 Other constipation; K21.9 Gastro-esophageal reflux disease without esophagitis; M15.9 Polyosteoarthritis, unspecified; M54.50 Low back pain, unspecified; R53.1 Weakness; N40.1 Benign prostatic hyperplasia with lower urinary tract symptoms; I49.1 Atrial premature depolarization; R53.81 Other malaise; G89.29 Other chronic pain; Z87.19 Personal history of other diseases of the digestive system; Z86.718 Personal history of other venous thrombosis and embolism; Z79.890 Hormone replacement therapy; Z79.899 Other long term (current) drug therapy; Z79.01 Long term (current) use of anticoagulants; Z87.891 Personal history of nicotine dependence; Z68.23 Body mass index [BMI] 23.0-23.9, adult
CPT/HCPCS: 36415; 51702; 71045; 71260; 80048; 80053; 81001; 83605; 83735; 84100; 84443; 84484; 85025; 85610; 85730; 87040; 87086; 87449; 87631; 87633; 92610; 93005; 94640; 94668; 97116; 97162; 97166; 97530; 97535; 97802; 99285; Q9967; A4216; J0696

== ENCOUNTER 2025-09-02 15:01 | Outpatient (RCR) | payer MEDICARE, SELFPAY | END 2025-09-12 23:59 | LOC: NS 15:01 | PROVIDERS: PCP Family Medicine; Visit Provider Student in an Organized Health Care Education/Training Program | DX: Z71.3 Dietary counseling and surveillance (principal) ==

== ENCOUNTER → 2025-09-07 | Outpatient (CLI) | payer MEDICARE, SELFPAY ==
[2025-09-07 16:28] LABS: Hematocrit 34.9 % (40-54); Hemoglobin 11.6 g/dL (13.0-16.5); Mean Corp Hgb Conc 33.2 g/dL (32-36); Mean Corpuscular Volume 93.1 fL (80-94); Mean Platelet Vol. 9.9 fl (6.2-12.0); Platelet Count 263 K/mm3 (150-450); RBC Distribution Width CV 16.5 % (11.6-14.6); RBC Distribution Width SD 56.2 fl (35.1-43.9); Red Blood Count 3.75 M/mm3 (4.6-6.2); White Blood Count 5.2 K/mm3 (4.4-11.0)
--- OUTSIDE RECORDS SUMMARY | 2025-09-07 19:06 | XMS RPT_ITS | CCD ---
Author Organization [facility] CliniSyfl Care Team Providers Care Security System Sales Consultant Name Role Phone MD Eloina Chi Primary [...] Provider Eloina Chi MD Primary Care Provider [phone] Eloina Chi MD Referring Provider [phone] Carlos Dennis MD Attending Provider Eloina Chi MD Primary Care Provider Ariel Black Attending Provider Neto GARCIAS Ariel Referring Provider Dr. Anusha Ward MD Attending Provider Dr. Anusha Ward MD Referring Provider ARIES REDDY Attending Provider ARIES REDDY Referring Provider Unavailable Primary Care Provider Unavailabl e ARIES REDDY Attending Provider ARIES REDDY Referring Provider Eloina Chi MD Primary Care Provider [phone] Ariel Black Attending Provider [place] Ariel GARCIAS Referring Provider ARIES REDDY Attending Provider ARIES REDDY Referring Provider Cherelle Maher LPN Attending Provider Unavailab johanny SIEGEL, RETA Attending Unavailable ANN-MARIE MONTES Admitting Unavailable ROBBIN, RETA Attending Unavailable ANUSHA WARD Referring Unavailabl e SIMON, ANN-MARIE Admitting Unavailable ROBBIN, RETA Referring Unavailable SIMON, ANN-MARIE Attending Unavailable SIMON, ANN-MARIE Admitting Unavailable Robbin Dr. Reta HARDEN Attending Provider Dr. Reta Siegel MD Referring Provider Dr. En Guerin DO Attending Provider Eloina Chi MD Referring Provider Dr. Kalyn Ng MD Attending Provider Dr. Simone Collins MD Attending Provider Dr. En Guerin DO Referring Provider Justin ALVARENGA-CJayashree Attending Provider Dr. En Guerin DO Referring Provider Eloina Chi MD Primary Care Physician [phone] Anusha Ward MD Attending Physician ARIES REDDY Attending Physician Cherelle Maher LPN Attending Physician Unavaila Dr. Reta Ceballos MD Attending Physician [phone] Dr. En Guerin DO Attending Physician Dr. Kalyn Ng MD Attending Physician Dr. Simone Collins MD Attending Physician Justin ZURITAC, Jayashree Attending Physician Dr. Kalyn Ng MD Referring Provider Dr. Kalyn Ng MD Nurse Practitioner Dr. En Guerin DO Referring Provider Elizabeth Sexton PA-C Attending Physician ARIES SARABIA Attending Unavailable AMISHA SARABIA Referring Unavailable LULA, CHALON Primary Care Unavailable EL-PHOEBE SMITH Attending Unavailable SELF Referring Unavailable LULA, CHALON Primary Care Unavailable EL-SHASHANKIDER, PHOEBE Referring Unavailable LULA, CHALON Primary Care Unavailable AMISHA SARABIA Attending Unavailable LULA, CHALON Primary Care Unavailable Lula HARDEN, Maria Luisaon Primary Care Physician Ed HARDEN, Dr. Melgar Attending Physician Dr. Anusha Ward MD Referring Provider ARIES REDDY Attending Physician ARIES REDDY Referring Provider [phone] Cherelle Maher LPN Attending Physician Unavaila maxwell Siegel MD, Dr. Lemon Attending Physician [phone] Dr. Reta Siegel MD Referring Provider Dr. En Guerin DO Attending Physician Eloina Chi MD Referring Provider [phone] Dr. Kalyn Ng MD Attending Physician Dr. Simone Collins MD Attending Physician Dr. En Guerin DO Referring Provider Justin TORRES, Jayashree Attending Physician Dr. Kalyn Ng MD Referring Provider Dr. Kalyn Ng MD Nurse Practitioner Elizabeth Sexton PA-C Attending Physician Patrick HARDEN, Dr. Murray Emergency Department Physician Aileen HARDEN, Dr. Rain Tijerina Admitting Physician [phone] Aileen HARDEN, Dr. Rain Tijerina Nurse Practitioner Alexys HARDEN, Dr. Méndez Attending Physician Anastacia HARDEN, Dr. Phillips Nurse Practitioner [phone] Alies HARDEN, Dr. Lara Nurse Practitioner Kanwal HARDEN, Dr. Zhang Nurse Practitioner Topher HARDEN, Dr. Reagan Nurse Practitioner Shaan MORLEY, Dr. Mendes Nurse Practitioner Milind HARDEN, Dr. Jamarcus Galloway Nurse Practitioner Isa MORLEY, Dr. Malhotra Nurse Practitioner Unavailab johanny Reid MD, Dr. Kwok Nurse Practitioner Matt HARDEN, Dr. Pagan Nurse Practitioner Un available Willem HARDEN, Dr. Ramirez Nurse Practitioner Lisbet HARDEN, Dr. Lewis Nurse Practitioner Prashant HARDEN, Dr. Whyte Nurse Practitioner Juan David HARDEN, Dr. Rebollar Nurse Practitioner Nell HARDEN, Dr. Christelle Plata Nurse Practitioner Bang Mendoza MD, Dr. Torres Nurse Practitioner Vanessa Pemberton MD, Dr. Brady Clay Nurse Practitioner Bang Armenta MD, Dr. Miguel Nurse Practitioner Primitivo HARDEN, Dr. Calle Nurse Practitioner Neha Santana MD, Dr. Vance Nurse Practitioner Brooke HARDEN, Dr. Chisholm Nurse Practitioner Benedicto Burroughs MD, Dr. Whitman Nurse Practitioner Shayan South DO, Dr. Greene Nurse Practitioner Vanessa Witt MD, Dr. Mann Nurse Practitioner Saumya Obrien MD, Dr. Timmons Nurse Practitioner Shayan Velarde MD, Dr. Romero Nurse Practitioner Lalit HARDEN, Dr. Elinor Zimmerman Nurse Practitioner U adrian Avina DO, Dr. Noe Nurse Practitioner Benedicto Bone MD, Dr. Timmons Nurse Practitioner Bang Aldana DO, Dr. Abreu Nurse Practitioner Neha Woods MD, Dr. Tello Nurse Practitioner [phone] Ciro HARDEN, Dr. Topete Nurse Practitioner Raegan HARDEN, Dr. Hiral Clay Nurse Practit stefanie June MD, Dr. Gonzalez Nurse Practitioner [phone] Linden DO, Dr. Gong Nurse Practitioner Haven HARDEN, Dr. Hunt Nurse Practitioner Narendra HARDEN, Dr. Damon Nurse Practitioner Martinez HARDEN, Dr. Meneses Nurse Practitioner Unavailabl ori Joyner MD, Dr. Ashford Nurse Practitioner Unavaila maxwell Leach DO, Dr. Wells Nurse Practitioner [phone] Roxanne HARDEN, Dr. Champagne Nurse Practitioner Unavailab johanny Gavin MD, Dr. Dueñas Nurse Practitioner Jordan HARDEN, Dr. Krause Nurse Practitioner Checo HARDEN, Dr. Jones Nurse Practitioner [phone] Aislinn HARDEN, Dr. Ricketts Nurse Practitioner Karina HARDEN, Dr. Nichols Nurse Practitioner Kirsten HARDEN, Dr. Castillo Nurse Practitioner Unavaila maxwell Nichole MD, Dr. Sibley Nurse Practitioner Field HARDEN, Dr. Phillips Nurse Practitioner Roberto HARDEN, Dr. Ortiz Nurse Practitioner Unavailable Annemarie HARDEN, Dr. Briggs Nurse Practitioner Truong MORLEY, Dr. Gatica Nurse Practitioner Justin CERAMIC TILE INSTALLATION HELPER-C, Jayashree Nurse Practitioner Alexys HARDEN, Dr. Méndez Nurse Practitioner Dr. Ariel Painter DO Emergency Department Physi lena Moran DO, Dr. Ricketts Admitting Physician Camila vailable Moran DO, Dr. Ricketts Nurse Practitioner Unav ailable Daren HARDEN, Dr. Ricketts Attending Physician Unavail able Viktoriya MORLEY, Dr. George Nurse Practitioner [phone] Viktoriya MORLEY, Dr. George Attending Physician Daren HARDEN, Dr. Ricketts Nurse Practitioner Unavaila ble Lula, Chalon Primary Care Unavailable Duque, Ariel Referring Unavailable Duque, Ariel Attending Unavailable Lula, Chalon Primary Care Unavailable Carlos Dennis Attending Unavailable Jamarcus Moran Admitting Unavailable Lula, Chalon Primary Care Unavailable Jamarcus Moran Consulting Unavailable Jamarcus Mercedes Attending Unavailable Viktoriya, Ariel Consulting Unavailable Lula, Chalon Primary Care Unavailable Robotham, Kalyn Referring Unavailable Robotham Kalyn Attending Unavailable Lula, Chalon Primary Care Unavailable Cherelle Maher Attending Unavailable Lula, Chalon Primary Care Unavailable Truong, En Referring Unavailable Truong, En Attending Unavailable Lula, Chalon Primary Care Unavailable Truong, En Attending Unavailable Truong, En Referring Unavailable Lula, Chalon Primary Care Unavailable Wartmann, Christopher Referring Unavailabl e Wartmann, Liveopher Attending Unavailabl e Lula, Chalon Primary Care Unavailable Truong, En Referring Unavailable Truong, En Attending Unavailable Lula, Chalon Referring Unavailable Lula, Chalon Primary Care Unavailable Simone Collins Attending Unavailable Lula, Chalon Primary Care Unavailable Truong, En Attending Unavailable Lula, Chalon Primary Care Unavailable Truong, En Attending Unavailable Truong, En Attending Unavailable Lula, Chalon Primary Care Unavailable Truong, En Attending Unavailable Lula, Chalon Primary Care Unavailable Lula, Chalon Primary Care Unavailable Truong, En Referring Unavailable Truong, En Attending Unavailable Lula, Chalon Primary Care Unavailable Duque, Ariel Referring Unavailable Duque, Ariel Attending Unavailable Lula, Chalon Primary Care Unavailable Duque, Ariel Attending Unavailable Duque, Ariel Referring Unavailable Lula, Chalon Attending Unavailable Lula, Chalon Referring Unavailable Lula, Chalon Primary Care Unavailable Lula, Chalon Primary Care Unavailable Lula, Chalon Referring Unavailable Justin CERAMIC TILE INSTALLATION HELPER, Jayashree Attending Unavailable Lula, Chalon Primary Care Unavailable En Guerin Attending Unavailable En Guerin Referring Unavailable Lula, Chalon Primary Care Unavailable Simone Collins Attending Unavailable Lula, Chalon Referring Unavailable Lula, Chalon Referring Unavailable Lula, Chalon Primary Care Unavailable Hubert CERAMIC TILE INSTALLATION HELPER, Ranulfo Juarez Attending Unavailable Koram, Rain Lilliana Admitting Unavailable Koram, Rain Lilliana Consulting Unavailable Lula, Chalon Primary Care Unavailable Dev Reardon Attending Unavailable Alan Galaviz Consulting Unavailable Marco Carrero Consulting Unavailable Vicente Schofield Consulting Unavailable Tez Obando Consulting Unavailable Vaughn Garduno Consulting Unavailable Jamarcus Vaz Consulting Unavailable Marya Moss Consulting Unavailable Sundar Reid Consulting Unavailable Latasha Gutierrez Consulting Unavailable James Bangura Consulting Unavailable Debbie Frausto Consulting UnavailPato Rodrigez Consulting Unavailable Smooth Fall Consulting Unavailable Christelle Camejo Consulting Unavailable Brian Mendoza Consulting UnavailBrady Sliverio Consulting Unavailable Lamont Armenta Consulting Unavailable Alva Langford Consulting Unavailable Pinky Santana Consulting Unavailable Kathrine Cox Consulting Unavailable Antonette Burroughs Consulting Unavailable Jc South Consulting UnavailJohnathan Poole Consulting Unavailable Iain Obrien Consulting Unavailable Heather Velarde Consulting Unavailable Elinor Cohn Consulting Unavailable Kusum Avina Consulting Unavailable Iain Bone Consulting Unavailable Brady Aldana Consulting Unavailable Peggy, Omer Consulting Unavailable Efrem Tanner Consulting Unavailable Hiral Carlin Consulting Unav Carlos Lainez Consulting Unavailable Beltran Cheatham Consulting Unavailable Marilee Orourke Consulting Unavailable Marisol Mackey Consulting Unavailable Zaira Henriquez Consulting Unavailable Makeda Joyner Consulting Unavailable Russell Leach Consulting Unavailable Ihsan Oliveira Consulting Unavailable Spenser Gavin Consulting Unavailable Nelida Ortega Consulting UnavailRobert Emerson Consulting Unavailable Jamarcus Tao Consulting Unavailable Simone Collins Consulting Unavailable Jonathan Curtis Consulting Unavailable Maryjo Nichole Consulting Unavailable Alan Childress Consulting Unavailable Angel Mejia Consulting Unavailable Chester Sharpe Consulting Unavailable En Guerin Consulting Unavailable Jayashree Anderson NP Consulting Unavailable Lula, Chalon Primary Care Unavailable En Guerin Referring Unavailable En Guerin Attending Unavailable Lula, Chalon Primary Care Unavailable Robbin, Reta Attending Unavailable Robbin, Reta Referring Unavailable Lula, Chalon Primary Care Unavailable Robotham, Kalyn Consulting Unavailable Robotham, Kalyn Referring Unavailable Robotolinda, Kalyn Attending Unavailable Jamarcus Moran Admitting Unavailable Ariel Sadler Attending Unavailable Jamarcus Moran Consulting Unavailable Lula, Chalon Primary Care Unavailable Ariel Sadler Consulting Unavailable Jamarcus Moran Attending Unavailable Koram, Rain Lilliana Consulting Unavailable Koram, Rain Lilliana Admitting Unavailable Lula, Chalon Primary Care Unavailable Dev Reardon Attending Unavailable Alan Galaviz Consulting Unavailable Marco Carrero Consulting Unavailable Vicente Schofield Consulting Unavailable Tez Obando Consulting Unavailable Vaughn Garduno Consulting Unavailable Jamarcus Vaz Consulting Unavailable Marya Moss Consulting Unavailable Sundar Reid Consulting Unavailable Latasha Gutierrez Consulting Unavailable James Bangura Consulting Unavailable Debbie Frausto Consulting UnavailPato Rodrigez Consulting Unavailable Smooth Fall Consulting Unavailable Christelle Camejo Consulting Unavailable Brian Mendoza Consulting UnavailBrady Silverio Consulting Unavailable Lamont Armenta Consulting Unavailable Alva Langford Consulting Unavailable Pinky Santana Consulting Unavailable Kathrine Cox Consulting Unavailable Antonette Burroughs Consulting Unavailable Akosua Mustafwil Consulting UnavailJohnathan Poole Consulting Unavailable Iain Obrien Consulting Unavailable Heather Velarde Consulting Unavailable Elinor Cohn Consulting Unavailable Kusum Avina Consulting Unavailable Iain Bone Consulting Unavailable Brady Aldana Consulting Unavailable Omer Woods Consulting Unavailable Efrem Tanner Consulting Unavailable Hiral Carlin Consulting Unav ailable Shaylee, Carlos Consulting Unavailable Dhesi, Beltran Consulting Unavailable Orourke, Sujoy Consulting Unavailable Dover, Soleyah Consulting Unavailable Hegab, Zaira Consulting Unavailable Mawari, Samih Consulting Unavailable Fernstrom, Russell Consulting Unavailable Turfe, Ihsan Consulting Unavailable Romaine, Spenser Consulting Unavailable Kuppuswamy, Vasanthan Consulting Unavailhouston Kessler, Robert Consulting Unavailable Aislinn, Jamarcus Consulting Unavailable PraSimone juarez Consulting Unavailable Curtis, Jonathan Consulting Unavailable Isckarus, Maryjo Consulting Unavailable , Alan Consulting Unavailable Roberto, Angel Consulting Unavailable Chester Sharpe Consulting Unavailable En Guerin Consulting Unavailable Justin CERAMIC TILE INSTALLATION HELPER, Jayashree Consulting Unavailable Alexys, Dev Consulting Unavailable Simone Collins Attending Unavailable En Guerin Attending Unavailable Lula, Chalon Primary Care Unavailable Lula, Chalon Referring Unavailable Lula, Chalon Primary Care Unavailable Kalyn Ng Attending Unavailable En Guerin Attending Unavailable Robbin, Reta Referring Unavailable En Guerin Attending Unavailable Lula, Chalon Referring Unavailable Lula, Chalon Primary Care Unavailable PraSimone juarez Attending Unavailable Lula, Chalon Primary Care Unavailable Lula, Chalon Referring Unavailable En Guerin Attending Unavailable Lula, Chalon Primary Care Unavailable Lula, Chalon Primary Care Unavailable Lula, Chalon Referring Unavailable PrahSimone Attending Unavailable Lula, Chalon Primary Care Unavailable En Guerin Attending Unavailable Lula, Chalon Referring Unavailable Lula, Chalon Primary Care Unavailable En Guerin Attending Unavailable Lula, Chalon Primary Care Unavailable Lula, Chalon Referring Unavailable Justin CERAMIC TILE INSTALLATION HELPER, Jayashree Attending Unavailable Lula, Chalon Primary Care Unavailable Lula, Chalon Referring Unavailable Elizabeth Chi Attending Unavailable Rain Gallagher Attending Unavailable Jamarcus Mercedes Attending Unavailable Jamarcus Mercedes Consulting Unavailable Lula, Chalon Primary Care Unavailable ARIES SARABIA Referring Unavailable ARIES SARABIA Attending Unavailable Lula HARDEN, Eloina Primary Care Physician Dr. Anusha Ward MD Attending Physician Dr. Anusha Ward MD Referring Provider ARIES REDDY Attending Physician ARIES REDDY Referring Provider Cherelle Maher LPN Attending Physician Unavaila maxwell Siegel MD, Dr. Lemon Attending Physician [phone] Robbin HARDEN, Dr. Lemon Referring Provider Truong MORLEY, Dr. Gatica Attending Physician Eloina Chi MD Referring Provider Hernandez HARDEN, Dr. Mccain Attending Physician Karina HARDEN, Dr. Nichols Attending Physician Truong MORLEY, Dr. Gatica Referring Provider Justin ALVARENGA-CJayashree Attending Physician Hernandez HARDEN, Dr. Mccain Referring Provider Hernandez HARDEN, Dr. Mccain Nurse Practitioner Elizabeth Sexton PA-C Attending Physician Patrick HARDEN, Dr. Murray Emergency Department Physician Aileen HARDEN, Dr. Rain Tijerina Admitting Physician Aileen HARDEN, Dr. Rain Tijerina Nurse Practitioner Alexys HARDEN, Dr. Méndez Attending Physician Anastacia HARDEN, Dr. Phillips Nurse Practitioner Alise HARDEN, Dr. Lara Nurse Practitioner Kanwal HARDEN, Dr. Zhang Nurse Practitioner [phone] Topher HARDEN, Dr. Reagan Nurse Practitioner Shaan MORLEY, Dr. Mendes Nurse Practitioner Milind HARDEN, Dr. Jamarcus Galloway Nurse Practitioner [phone] Isa MORLEY, Dr. Malhotra Nurse Practitioner Unavailab johanny Reid MD, Dr. Kwok Nurse Practitioner Matt HARDEN, Dr. Pagan Nurse Practitioner Un available Willem HARDEN, Dr. Ramirez Nurse Practitioner Lisbet HARDEN, Dr. Lewis Nurse Practitioner Prashant HARDEN, Dr. Whyte Nurse Practitioner [phone] Juan David HARDEN, Dr. Rebollar Nurse Practitioner [phone] Nell HARDEN, Dr. Christelle Plata Nurse Practitioner Bang Mendoza MD, Dr. Torres Nurse Practitioner Vanessa Pemberton MD, Dr. Brady Clay Nurse Practitioner Bang Armenta MD, Dr. Miguel Nurse Practitioner [phone] Primitivo HARDEN, Dr. Calle Nurse Practitioner Neha Santana MD, Dr. Vance Nurse Practitioner [phone] Brooke HARDEN, Dr. Chisholm Nurse Practitioner Benedicto Burroughs MD, Dr. Whitman Nurse Practitioner Shayan South DO, Dr. Greene Nurse Practitioner Vanessa Witt MD, Dr. Mann Nurse Practitioner Saumya Obrien MD, Dr. Timmons Nurse Practitioner Shayan Velarde MD, Dr. Romero Nurse Practitioner [phone] Lalit HARDEN, Dr. Elinor Zimmerman Nurse Practitioner U adrian Avina DO, Dr. Noe Nurse Practitioner Unavail mohan Bone MD, Dr. Timmons Nurse Practitioner Bang Aldana DO, Dr. Abreu Nurse Practitioner Neha Woods MD, Dr. Tello Nurse Practitioner [phone] Ciro HARDEN, Dr. Topete Nurse Practitioner Raegan HARDEN, Dr. Hiral Clay Nurse Practit stefanie June MD, Dr. Gonzalez Nurse Practitioner [phone] Linden DO, Dr. Gong Nurse Practitioner Haven HARDEN, Dr. Hunt Nurse Practitioner [phone] Narendra HARDEN, Dr. Damon Nurse Practitioner Martinez HARDEN, Dr. Meneses Nurse Practitioner Saumya Joyner MD, Dr. Ashford Nurse Practitioner Raquel Leach DO, Dr. Wells Nurse Practitioner [phone] Roxanne HARDEN, Dr. Champagne Nurse Practitioner Unavailab johanny Gavin MD, Dr. Dueñas Nurse Practitioner Jordan HARDEN, Dr. Krause Nurse Practitioner Checo HARDEN, Dr. Jones Nurse Practitioner Aislinn HARDEN, Dr. Ricketts Nurse Practitioner Karina HARDEN, Dr. Nichols Nurse Practitioner Kirsten HARDEN, Dr. Castillo Nurse Practitioner Unavaila ble Dionisio HARDEN, Dr. Sibley Nurse Practitioner Field HARDEN, Dr. Phillips Nurse Practitioner Roberto HARDEN, Dr. Ortiz Nurse Practitioner Unavailable Annemarie HARDEN, Dr. Briggs Nurse Practitioner Truong MORLEY, Dr. Gatica Nurse Practitioner Justin CERAMIC TILE INSTALLATION HELPER-C, Jayashree Nurse Practitioner Alexys HARDEN, Dr. Méndez Nurse Practitioner Dr. Ariel Painter DO Emergency Department Physi lena Moran DO, Dr. Ricketts Admitting Physician Camila vailable Moran DO, Dr. Ricketts Nurse Practitioner Unav ailable Dr. Jamarcus Mercedes MD Attending Physician Unavail able Viktoriya MORLEY, Dr. George Nurse Practitioner Dr. Ariel Sadler DO Attending Physician Dr. Jamarcus Mercedes MD Nurse Practitioner Unavaila ble Allergies Allergy Classification Reported Allergen(s) Allergy Type Date of Onset Reaction(s) Facility (20 sources) Wheat gluten extract; Translations: [GLUTEN] Drug Allergy 12-27-19 25 Other: See Comments [facility] (20 sources) ARIPiprazole; Translations: [ARIPIPRAZOLE] Drug Allergy 04-08-20 Contraindicati on[facility] (20 sources) Haloperidol; Translations: [HALOPERIDOL] Drug Allergy 04-08-20 Contraindicati on[facility] (20 sources) Metoclopramide; Translations: [METOCLOPRAMIDE] Drug Allergy 04-08-20 Contraindicati on[facility] (20 sources) OLANZapine; Translations: [OLANZAPINE] Drug Allergy 04-08-20 Contraindicati on-[facility] (20 sources) Prochlorperazine; Translations: [PROCHLORPERAZINE] Drug Allergy 04-08-20 Contraindicati on-Medical [facility] (20 sources) Promethazine; Translations: [PROMETHAZINE] Drug Allergy 04-08-20 Contraindicati on-Medical [facility] (8 sources) Gluten; Translations: [GLUTEN MEAL] Propensity to adverse reactions to drug 12-27-19 [facility] (7 sources) OLANZapine Drug Allergy 04-08-20 [facility] (1 source) ARIPiprazole Drug Allergy 08-18-20 [facility] (1 source) Gluten Drug allergy (disorder) 08-18-20 [facility] (1 source) Haloperidol Drug Allergy 08-18-20 [facility] (1 source) Metoclopramide Drug Allergy 08-18-20 [facility] (1 source) OLANZapine Drug Allergy 08-18-20 [facility] (1 source) Prochlorperazine Drug Allergy 08-18-20 [facility] (1 source) Promethazine Drug Allergy 08-18-20 [facility] Medications Current Medications Medication Drug Class(es) Dates Sig (Normalized) Sig (Original) amoxicillin 875 mg / clavulanate 125 mg oral tablet (20 sources) Penicillin-class Antibacterial Start: 08-07-2025 End: 08-10-2025 Start: 08-07-2025 Start: 08-07-2025 Start: 08-04-2025 End: 08-07-2025 Start: 10-04-2024 End: 10-11-2024 Start: 10-04-2024 End: 10-11-2024 Amoxicillin-Pot Clavulanate 875-125 mg tablet Discontinued 1 {tbl} PO TWICE A DAY 14 7 0 October 04, 2024 1:00am October 10, 2024 1:00am October 11, 2024 1:09am Apixaban (6 sources) Factor Xa Inhibitor Start: 08-04-2025 carbidopa 25 mg / levodopa 100 mg extended release oral tablet (20 sources) Aromatic Amino Acid Decarboxylation Inhibitor, Aromatic Amino Acid Start: 06-25-2024 End: 09-21-2025 Start: 03-05-2024 CARBIDOPA-LEVO DOPA CR ORAL 1 Tablet. 03/05/2024 Active Start: 03-05-2024 End: 06-10-2025 Start: 03-05-2024 End: 06-10-2025 Carbidopa-Levodopa 25-100 mg tablet extended release Discontinued 1 {tbl} PO THREE TIMES A DAY March 05, 2024 12:00am June 10, 2025 10:14am Start: 03-05-2024 Carbidopa-Levo dopa 25-100 mg tablet extended release Active 1 {tbl} PO THREE TIMES A DAY March 05, 2024 12:00am Start: 12-13-2023 End: 06-10-2025 Carbidopa-Levodopa 25-100 mg tablet extended release Discontinued 1 {tbl} PO THREE TIMES A DAY March 05, 2024 12:00am June 10, 2025 10:14am take 1 tablet by kathrine four times daily in the morning Carbidopa-Levodopa CR 25-100 MG TBCR TAKE 1 TABLET BY MOUTH 4 TIMES DAILY. TAKE AT 6 AM, 12 PM, 6 PM, 8 PM AND 12 AM (IF AWAKENING AT NIGHT). Active Comment on above: Take 1 tablet by kathrine three times a day. cefdinir 50 mg/ml oral suspension (4 sources) Cephalosporin Antibacterial Start: 08-10-2025 End: 08-18-2025 Start: 08-10-2025 Start: 08-10-2025 chlorhexidine gluconate 1.2 mg/ml mouthwash (6 sources) Start: 08-04-2025 Start: 08-04-2025 Start: 08-04-2025 Start: 08-04-2025 Start: 08-04-2025 docusate sodium 50 mg / alejandra osides, fpc 8.6 mg oral tablet (6 sources) Start: 08-04-2025 Start: 08-04-2025 Start: 08-04-2025 Start: 08-04-2025 Start: 08-04-2025 fludrocortisone acetate 0.1 mg oral tablet (20 sources) Start: 06-17-2025 guaiFENesin 20 mg/ml oral so lution (20 sources) Start: 07-28-2025 Start: 07-28-2025 Start: 07-28-2025 Start: 07-12-2025 End: 07-28-2025 Start: 07-12-2025 take 1 tablet by kathrine th twice daily, then take 1 tablet by mouth every twelve hours Start: 07-12-2025 take 1 tablet by kathrine th twice daily, then take 1 tablet by mouth every twelve hours levothyroxine sodium 0.05 mg oral tablet (20 sources) l-Thyroxine Start: 02-21-2024 End: 03-17-2024 take 1 capsule by mouth once daily levothyroxine 50 mcg cap Take 50 mcg by mouth once daily. 0 03/17/2024 Discontinued Comment on above: Take 50 mcg by mouth once daily. 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 once daily. ondansetron 8 mg disintegrating oral tablet (16 sources) Serotonin-3 Receptor Antagonist Start: 06-28-2025 OTC NUTRITIONAL SUPPLEMENT (12 sources) take 1 [...] Vitamin B Complex, Vitamin B-12, and Calcium. potassium chloride 1.33 meq/ ml oral solution (6 sources) Start: 08-04-2025 Start: 08-04-2025 Start: 08-04-2025 Start: 08-04-2025 Start: 08-04-2025 prucalopride 2 mg oral tablet (20 sources) Start: 05-09-2024 End: 09-30-2025 Prucalopride (Motegrity) 2 mg tablet (2 sources) Start: 05-09-2024 take 1 tablet by mouth once daily Prucalopride (Motegrity) 2 mg tablet Active 2 mg PO DAILY May 09, 2024 12:00am sodium chloride 0.111 meq/ml nasal spray (10 sources) Start: 08-10-2025 Start: 08-10-2025 Start: 08-10-2025 Start: 08-10-2025 Start: 07-26-2025 tamsulosin hydrochloride 0.4 mg oral capsule (20 sources) alpha-Adrenergic Cyndy Start: 03-05-2024 Start: 09-20-2023 take [address] [facility] every twelve hours tamsulosin (FLOMAX) 0.4 mg Take 1 capsule by mouth every 12 hours. 09/20/2023 Active Comment on above: Take [address] [facility] every 12 hours. (20 sources) Start: 08-04-2025 Start: 07-07-2025 Start: 05-09-2024 End: 10-04-2024 Completed/Discontinued Medications Medication Drug Class(es) Dates Sig (Normalized) Sig (Original) amoxicillin 500 mg oral capsule (3 sources) Penicillin-class Antibacterial Start: 12-16-2023 End: 06-25-2024 amoxicillin (AMOXIL) 500 mg capsule Take 500 mg by mouth as needed. For Dental Procedures 12/16/2023 06/25/2024 Discontinued (Course of therapy completed) Comment on above: Take 500 mg by mouth as needed. For Dental Procedures baclofen 10 mg oral tablet (2 sources) gamma-Aminobutyric Acid-ergic Agonist Start: 12-17-2023 End: 03-17-2024 baclofen 10 mg tablet Take 1 tablet by mouth as directed. 0 12/17/2023 03/17/2024 Discontinued Comment on above: [facility] bisacodyl 10 mg rectal suppository (15 sources) Stimulant Laxative Start: 03-05-2024 End: 05-09-2024 Bisacodyl (Dulcolax (Bisacodyl)) 10 mg suppository (12 [...] Start: 05-28-2025 End: 05-28-2025 lidocaine-EPINEPHrine (XYLOCAINE) 1 %-1:501161 injection SOLN Start: 05-28-2025 End: 05-28-2025 2 mL, Injection, ONCE, 1 dos e, On Sat05/28/25 at 1430 Start: 05-28-2025 End: 05-28-2025 lidocaine-EPINEPHrine (XYLOC LAURY) 1 %-1:[id number] injection SOLN Start: 05-28-2025 End: 05-28-2025 2 mL, Injection, ONCE, 1 dos e, On Sat05/28/25 at 1430 Start: 05-28-2025 End: 05-28-2025 lidocaine-EPINEPHrine (XYLOC LAURY) 1 %-1:[id number] injection SOLN Start: 05-28-2025 End: 05-28-2025 2 [...] 07/30/2024 Discontinued Guar Gum (Nutrisource Fiber) packet (20 sources) Start: 05-09-2024 End: 10-04-2024 take 4 [...] 09, 2024 6:24am Start: 11-14-2023 End: 04-08-2025 Comment on above: Take 30 mL by mouth as needed. 10 ml lidocaine hydrochloride 20 mg/ml injection (3 sources) Antiarrhythmic, Amide Local Anesthetic Start: 05-28-2025 End: 05-28-2025 lidocaine (XYLOCAINE) 2 % injection Start: 05-28-2025 End: 05-28-2025 lidocaine (XYLOCAINE) 2 % in jection Start: 05-28-2025 End: 05-28-2025 lidocaine (XYLOCAINE) 2 % in jection linaclotide 0.145 mg oral ca psule (20 sources) Guanylate Cyclase-C Agonist Start: 12-16-2023 End: 06-25-2024 Comment on above: Take 1 capsule by [facility] every afternoon. magnesium citrate 125 mg ora l capsule (20 sources) Start: 03-05-2024 End: 05-09-2024 Start: 03-05-2024 End: 05-09-2024 take 2 capsules by mouth once Magnesium Citrate 125 mg capsule Discontinued 125 mg PO ONCE 2 0 March 05, 2024 12:00am May 09, 2024 6:24am Take 2 glasses of water with each administration. Methylprednisolone (20 sources) Corticosteroid Start: 09-25-2023 End: 10-01-2023 Start: 09-25-2023 End: 10-01-2023 take 1 tablet by mouth once Methylprednisolone (Medrol (Daniele)) 4 mg tablets,dose pack Discontinued 4 mg PO per package directions 21 6 0 September 25, 2023 1:00am September 30, 2023 1:00am October 01, 2023 1:05am midodrine hydrochloride 5 mg oral tablet (20 sources) alpha-Adrenergic Agonist Start: 04-07-2025 End: 06-17-2025 polyethylene glycol 3350 170 00 mg powder for oral solution (20 sources) Osmotic Laxative Start: 05-09-2024 End: 10-04-2024 polyethylene gly col 3350 (MIRALAX) 17 gram packet Take 17 g by mouth two times a day. Dissolve dose in 4 - 8 ounces of liquid and take as directed. Active polyethylene glycol 3350 236 000 mg / potassium chloride 2970 mg / sodium bicarbonate 6740 mg / sodium chloride 5860 mg / sodium sulfate 47548 mg powder for oral solution (20 sources) Osmotic Laxative Start: 06-10-2025 End: 06-24-2025 Start: 05-15-2024 peg 3350-Elect rolytes (GOLYTELY) 236-22.74-6.74 -5.86 gram suspension DRINK NEEDED FOR CONSTIPATION 05/15/2024 Active Start: 03-26-2024 End: 05-09-2024 Start: 03-26-2024 End: 05-09-2024 take 1 mL by mouth every hour as needed for constipation Peg 3350-Electrolytes (Golytely) 236-22.74-6.74 -5.86 gram recon soln Discontinued 240 mL PO Q1H as needed for constipation 4000 0 March 26, 2024 11:29am May 09, 2024 6:24am until fecal effluent is clear propranolol hydrochloride 20 mg oral tablet (20 sources) beta-Adrenergic Cyndy Start: 03-05-2024 End: 06-17-2025 Start: 10-19-2023 End: 02-23-2026 take 1 tablet by mouth every twelve hours propranolol (INDERAL) 20 mg tablet Take 1 tablet by mouth every 12 hours. 60 tablet 11 02/23/2025 02/23/2026 Active Comment on above: Take 1 tablet by kathrine every 12 hours. Sennosides (Senna) 8.6 mg tablet (12 sources) Start: 4 End: 4 take 1 tablet by mouth twice daily as needed for constipation Sennosides (Senna) 8.6 mg tablet Discontinued 8.6 mg PO TWICE A DAY as needed for constipation March 05, 2024 12:00am October 04, 2024 9:11am sennosides, fpc 8.6 mg oral tablet (20 sources) Start: 5 End: Start: 03-05-2024 End: 10-04-2024 Start: 03-05-2024 End: 10-04-2024 take 1 tablet by mouth twice daily as needed for constipation Sennosides (Senna) 8.6 mg tablet Discontinued 8.6 mg PO TWICE A DAY as needed for constipation March 05, 2024 12:00am October 04, 2024 9:11am traMADol hydrochloride 50 mg oral tablet (15 sources) Opioid Agonist Start: 06-30-2025 End: 07-30-2025 Problems Active Problems Problem Classification Problem Date Documented Da te Episodic/Chronic Acute and chronic tonsillitis (13 sources) Mass of palatine tonsil; Translations: [Other chronic diseases of tonsils and adenoids] Onset: 5 05-14-2025 Chronic Acute and unspecified renal failure (6 sources) Prerenal azotemia; Translations: [Unspecified kidney failure] 07-30-2025 Chronic Administrative/social admission (1 source) Counseling, unspecified; [...] benefits. Patient and his agree to proceed. Invasive tonsillar c arcinoma, p16 positive, Stage I(cT2 cN1 M0)Comes to start definitive treatment with combined chemotherapy and radiation therapy.Counts and chemistry reviewed, Ok for therapy. Invasive tonsillar c arcinoma, p16 positive, Stage I(cT2 cN1 M0).Started weekly Taxol and Carboplatin on 07/05/2025.Comes for C3. Tolerating therapy.Counts and chemistry reviewed, Ok for therapy. Diabetes mellitus without complication (6 sources) Non-diabetic hyperglycemia; Translations: [Hyperglycemia, unspecified] 07-30-2025 Episodic Diseases of mouth; excluding dental (8 sources) Excessive salivation; Translations: [Disturbances of salivary secretion] Onset: 5 04-08-2025 Episodic Diseases of white blood cells (13 sources) Febrile neutropenia; Translations: [Neutropenia, unspecified] Onset: 5 08-05-2025 Chronic E Codes: Fall (20 sources) Fall; Translations: [Unspecified fall, initial encounter] 12-26-2024 Episodic Esophageal disorders (20 sources) Gastroesophageal reflux disease; Translations: [Gastro-esophageal reflux disease without esophagitis] Onset: 3 12-19-2023 Chronic Fever of unknown origin (2 sources) Fever, unspecified; Translations: [Fever presenting with conditions classified elsewhere] Onset: Episodic Fluid and electrolyte disorders (20 sources) Hyponatremia; Translations: [Hypo-osmolality and hyponatremia] Onset: Episodic Hyperplasia of prostate (20 sources) Benign prostatic hyperplasia; Translations: [Benign prostatic hyperplasia without lower urinary tract symptoms] 03-05-2024 Chronic Maintenance chemotherapy; radiotherapy (1 source) Encounter for antineoplastic chemotherapy; Translations: [Encounter for antineoplastic chemotherapy] Onset: Chronic Malaise and fatigue (14 sources) Asthenia; Translations: [Weakness] Onset: 5 08-07-2025 Episodic Open wounds of head; neck; and trunk (20 sources) Avulsion of skin; Translations: [Unspecified open wound of other part of head, initial encounter] 12-26-2024 Episodic Other aftercare (20 sources) Patient encounter status; Translations: [Encounter for adjustment and management of vascular access device] 06-21-2025 Episodic Other aftercare (12 sources) Long-term current use of anticoagulant; Translations: [correction (current) use of anticoagulants] 08-07-2025 Episodic Other aftercare (1 source) termite exterminator helper (current) use of anticoagulants; Translations: [termite exterminator helper (current) use of anticoagulants] Onset: 5 Episodic Other aftercare (1 source) Encounter for adjustment and management of vascular access device; Translations: [Encounter for adjustment and management of vascular access device] Onset: 5 Episodic Other and unspecified benign neoplasm (7 sources) Mass of palatine tonsil 05-14-2025 Episodic Other circulatory disease (20 sources) Device in situ; Translations: [Presence of other vascular implants and grafts] 07-12-2025 Chronic Other connective tissue disease (20 sources) Neurological symptom; Translations: [Unspecified symptoms and signs involving the nervous system] 05-17-2024 Episodic Other gastrointestinal disorders (1 source) Intestinal malabsorption; Translations: [Intestinal malabsorption, unspecified] 07-30-2024 Chronic Other gastrointestinal disorders (20 sources) Patient encounter status; Translations: [Encounter for attention to gastrostomy] 06-21-2025 Chronic Comment on above: Counts and chemistry reviewed, OK for therapy. Other gastrointestinal disorders (20 sources) History of placement of gastrostomy tube; Translations: [Gastrostomy status] 07-12-2025 Chronic Other gastrointestinal disorders (1 source) Intestinal malabsorption, unspecified; Translations: [Intestinal malabsorption, unspecified type] Onset: 4 Chronic Other gastrointestinal disorders (1 source) Encounter for attention to gastrostomy; Translations: [Encounter for attention to gastrostomy] Onset: 5 Chronic Other gastrointestinal disorders (20 sources) Constipation; Translations: [Constipation, unspecified] Onset: 4 03-17-2024 Episodic Other gastrointestinal disorders (20 sources) Obstipation; Translations: [Constipation, unspecified] 03-19-2024 Episodic Other nervous system disorders (12 sources) Disorder of brain; Translations: [Encephalopathy, unspecified] 08-05-2025 Chronic Other nervous system disorders (1 source) Encephalopathy, unspecified; Translations: [Encephalopathy, unspecified] Onset: 5 Chronic Other nervous system disorders (1 source) Impaired cognition; Translations: [Other symptoms and signs involving cognitive functions and awareness] 09-21-2024 Episodic Other nervous system disorders (15 sources) Postoperative pain ; Translations: [Other acute postprocedural pain] 06-30-2025 Episodic Other non-epithelial cancer of skin (20 sources) Squamous cell carcinoma of skin, unspecified; Translations: [Squamous cell carcinoma of skin, site unspecified] Onset: 5 05-28-2025 Episodic Other skin disorders (20 sources) Mass of chest wall; Translations: [Localized swelling, mass and lump, trunk] 06-22-2025 Episodic Comment on above: Hypermetabolic nodul e on the left posterior upper chest wall, clinically not palpable. Other skin disorders (1 source) Localized swelling, mass and lump, trunk; Translations: [Localized swelling, mass and lump, trunk] Onset: Episodic Parkinson`s disease (3 sources) Parkinson`s disease; Translations: [Parkinson's disease without dyskinesia, with fluctuating manifestations (HCC)] Onset: Phlebitis; thrombophlebitis and thromboembolism (13 sources) H/O: Deep vein thrombosis; Translations: [Personal history of other venous thrombosis and embolism] Onset: 5 08-07-2025 Episodic Pneumonia (except that caused by tuberculosis or sexually transmitted disease) (13 sources) Pneumonia; Translations: [Pneumonia, unspecified organism] Onset: 5 08-07-2025 Episodic Poisoning by other medications and drugs (12 sources) Mucositis following therapy; Translations: [Oral mucositis (ulcerative) due to radiation] 07-26-2025 Episodic Screening and history of mental health and [...] wall of thorax] 09-25-2023 Episodic Thyroid disorders (20 sources) Hypothyroidism; Translations: [Hypothyroidism, unspecified] 03-05-2024 Chronic Unclassified (20 sources) Parkinson's disease; Translations: [Parkinson's disease without dyskinesia, with fluctuating manifestations (HCC)] Onset: 12-19-2023 Chronic Unclassified (8 sources) 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) 06-04-2025 Unclassified (20 sources) 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 Radiation Oncology Visit Normal [facility] Basic Metabolic Profile (BMP )on 08-12-2025 BUN Normal 01-30 [facility] Comment on above: Result Comment: Canc elled via OM: Order cancelled - Patient discharged Performed By: #### L 500.2500, L100.0100 ####[facility] [address] [place], [place], [id number] BUN/CRE Normal 08-02 [facility] Comment on above: Result Comment: Canc elled via OM: Order cancelled - Patient discharged Performed By: #### L 500.2500, L100.0100 ####[facility] [address] [place], [address] Calcium Normal 7.6-11.0 [facility] Comment on above: Result Comment: Canc elled via OM: Order cancelled - Patient discharged Performed By: #### L 500.2500, L100.0100 ####[facility] [address] [place], [address] CL Normal 98-108 [facility] Comment on above: Result Comment: Canc elled via OM: Order cancelled - Patient discharged Performed By: #### L 500.2500, L100.0100 ####[facility] [address] [place], [address] CO2 Normal 21.0-32.0 [facility] Comment on above: Result Comment: Canc elled via OM: Order cancelled - Patient discharged Performed By: #### L 500.2500, L100.0100 ####[facility] [address] [place], [address] CREAT,SERUM Normal 0.70-1.20 [facility] Comment on above: Result Comment: Canc elled via OM: Order cancelled - Patient discharged Performed By: #### L 500.2500, L100.0100 ####[facility] [address] [place], [address] eGFR Normal >60 [facility] Comment on above: Result Comment: Canc elled via OM: Order cancelled - Patient discharged Performed By: #### L 500.2500, L100.0100 ####[facility] [address] [place], [address] GAP Normal 5-15 [facility] Comment on above: Result Comment: Canc elled via OM: Order cancelled - Patient discharged Performed By: #### L 500.2500, L100.0100 ####[facility] [address] [place], [address] GLU Normal 70-99 [facility] Comment on above: Result Comment: Canc elled via OM: Order cancelled - Patient discharged Performed By: #### L 500.2500, L100.0100 ####[facility] [address] [place], [address] Potassium Normal 3.3-5.1 [facility] Comment on above: Result Comment: Canc elled via OM: Order cancelled - Patient discharged Performed By: #### L 500.2500, L100.0100 ####[facility] [address] [place], [address] Basic Metabolic Profile (BMP) Normal 133-145 [facility] Comment on above: Result Comment: Canc elled via OM: Order cancelled - Patient discharged Performed By: #### L 500.2500, L100.0100 ####[facility] [address] [place], [address] CBC W/Diff, Automatedon 10-3 0-2024 Absolute Neut Normal 2.0-7.7 [facility] Comment on above: Result Comment: Canc elled via OM: Order cancelled - Patient discharged Performed By: #### L 500.2500, L100.0100 ####[facility] [address] [place], [address] HCT Normal 40-54 [facility] Comment on above: Result Comment: Canc elled via OM: Order cancelled - Patient discharged Performed By: #### L 500.2500, L100.0100 ####[facility] [address] [place], [address] HGB Normal 13.0-16.5 [facility] Comment on above: Result Comment: Canc elled via OM: Order cancelled - Patient discharged Performed By: #### L 500.2500, L100.0100 ####[facility] [address] [place], [address] MCH Normal 27.0-32.0 [facility] Comment on above: Result Comment: Canc elled via OM: Order cancelled - Patient discharged Performed By: #### L 500.2500, L100.0100 ####[facility] [address] [place], [address] MCHC Normal 32-36 [facility] Comment on above: Result Comment: Canc elled via OM: Order cancelled - Patient discharged Performed By: #### L 500.2500, L100.0100 ####[facility] [address] [place], [address] MCV Normal 80-94 [facility] Comment on above: Result Comment: Canc elled via OM: Order cancelled - Patient discharged Performed By: #### L 500.2500, L100.0100 ####[facility] [address] [place], [address] NEUT% Normal 47-70 [facility] Comment on above: Result Comment: Canc elled via OM: Order cancelled - Patient discharged Performed By: #### L 500.2500, L100.0100 ####[facility] [address] [place], [address] PLT Normal 150-450 [facility] Comment on above: Result Comment: Canc elled via OM: Order cancelled - Patient discharged Performed By: #### L 500.2500, L100.0100 ####[facility] [address] [place], [address] RBC Normal 4.6-6.2 [facility] Comment on above: Result Comment: Canc elled via OM: Order cancelled - Patient discharged Performed By: #### L 500.2500, L100.0100 ####[facility] [address] [place], [address] RDW CV Normal 11.6-14.6 [facility] Comment on above: Result Comment: Canc elled via OM: Order cancelled - Patient discharged Performed By: #### L 500.2500, L100.0100 ####[facility] [address] [place], [address] RDW SD Normal 35.1-43.9 [facility] Comment on above: Result Comment: Canc elled via OM: Order cancelled - Patient discharged Performed By: #### L 500.2500, L100.0100 ####[facility] [address] [place], [address] WBC Normal 4.4-11.0 [facility] Comment on above: Result Comment: Canc elled via OM: Order cancelled - Patient discharged Performed By: #### L 500.2500, L100.0100 ####[facility] [address] [place], [address] Culture, Blood (WB)on 2024 CUB Blood cultures x2, f rom two different sites No growth in [address] [facility] Comment on above: Performed By: #### M 200.1000 ####[facility] [address] [place], [address] Basic Metabolic Profile (BMP )on 08-11-2025 BUN Normal 4-19 [facility] Comment on above: Result Comment: Canc elled via OM: Order cancelled - Patient discharged Performed By: #### L 100.0100, L500.2500 ####[facility] [address] [place], [address] BUN/CRE Normal 10-20 [facility] Comment on above: Result Comment: Canc elled via OM: Order cancelled - Patient discharged Performed By: #### L 100.0100, L500.2500 ####[facility] [address] [place], [address] Calcium Normal 7.6-11.0 [facility] Comment on above: Result Comment: Canc elled via OM: Order cancelled - Patient discharged Performed By: #### L 100.0100, L500.2500 ####[facility] [address] [place], [address] CL Normal 98-108 [facility] Comment on above: Result Comment: Canc elled via OM: Order cancelled - Patient discharged Performed By: #### L 100.0100, L500.2500 ####[facility] [address] [place], [address] CO2 Normal 21.0-32.0 [facility] Comment on above: Result Comment: Canc elled via OM: Order cancelled - Patient discharged Performed By: #### L 100.0100, L500.2500 ####[facility] [address] [place], [address] CREAT,SERUM Normal 0.70-1.20 [facility] Comment on above: Result Comment: Canc elled via OM: Order cancelled - Patient discharged Performed By: #### L 100.0100, L500.2500 ####[facility] [address] [place], [address] eGFR Normal >60 [facility] Comment on above: Result Comment: Canc elled via OM: Order cancelled - Patient discharged Performed By: #### L 100.0100, L500.2500 ####[facility] [address] [place], [address] GAP Normal 5-15 [facility] Comment on above: Result Comment: Canc elled via OM: Order cancelled - Patient discharged Performed By: #### L 100.0100, L500.2500 ####[facility] [address] [place], [address] GLU Normal 70-99 [facility] Comment on above: Result Comment: Canc elled via OM: Order cancelled - Patient discharged Performed By: #### L 100.0100, L500.2500 ####[facility] [address] [place], [address] Potassium Normal 3.3-5.1 [facility] Comment on above: Result Comment: Canc elled via OM: Order cancelled - Patient discharged Performed By: #### L 100.0100, L500.2500 ####[facility] [address] [place], [address] Basic Metabolic Profile (BMP) Normal 133-145 [facility] Comment on above: Result Comment: Canc elled via OM: Order cancelled - Patient discharged Performed By: #### L 100.0100, L500.2500 ####[facility] [address] [place], [address] CBC W/Diff, Automatedon 10-2 Absolute Neut Normal 2.0-7.7 [facility] Comment on above: Result Comment: Canc elled via OM: Order cancelled - Patient discharged Performed By: #### L 100.0100, L500.2500 ####[facility] [address] [place], [address] HCT Normal 40-54 [facility] Comment on above: Result Comment: Canc elled via OM: Order cancelled - Patient discharged Performed By: #### L 100.0100, L500.2500 ####[facility] [address] [place], [address] HGB Normal 13.0-16.5 [facility] Comment on above: Result Comment: Canc elled via OM: Order cancelled - Patient discharged Performed By: #### L 100.0100, L500.2500 ####[facility] [address] [place], [address] MCH Normal 27.0-32.0 [facility] Comment on above: Result Comment: Canc elled via OM: Order cancelled - Patient discharged Performed By: #### L 100.0100, L500.2500 ####[facility] [address] [place], [address] MCHC Normal 32-36 [facility] Comment on above: Result Comment: Canc elled via OM: Order cancelled - Patient discharged Performed By: #### L 100.0100, L500.2500 ####[facility] [address] [place], [address] MCV Normal 80-94 [facility] Comment on above: Result Comment: Canc elled via OM: Order cancelled - Patient discharged Performed By: #### L 100.0100, L500.2500 ####[facility] [address] [place], [address] NEUT% Normal 47-70 [facility] Comment on above: Result Comment: Canc elled via OM: Order cancelled - Patient discharged Performed By: #### L 100.0100, L500.2500 ####[facility] [address] [place], [address] PLT Normal 150-450 [facility] Comment on above: Result Comment: Canc elled via OM: Order cancelled - Patient discharged Performed By: #### L 100.0100, L500.2500 ####[facility] [address] [place], [address] RBC Normal 4.6-6.2 [facility] Comment on above: Result Comment: Canc elled via OM: Order cancelled - Patient discharged Performed By: #### L 100.0100, L500.2500 ####[facility] [address] [place], [address] RDW CV Normal 11.6-14.6 [facility] Comment on above: Result Comment: Canc elled via OM: Order cancelled - Patient discharged Performed By: #### L 100.0100, L500.2500 ####[facility] [address] [place], [address] RDW SD Normal 35.1-43.9 [facility] Comment on above: Result Comment: Canc elled via OM: Order cancelled - Patient discharged Performed By: #### L 100.0100, L500.2500 ####[facility] [address] [place], [address] WBC Normal 4.4-11.0 [facility] Comment on above: Result Comment: Canc elled via OM: Order cancelled - Patient discharged Performed By: #### L 100.0100, L500.2500 ####[facility] [address] [place], [address] Radiation Oncology Visiton 1 Radiation Oncology Visit Normal [facility] Absolute lymphocyte countOrd ered By: Jamarcus Mercedes on 08-10-2025 Lymphocytes Auto (Unsp spec) [#/Vol] 1.27 10*3/uL 0.83-4.51 [facility] Anion gap in Serum or Plasma Ordered By: Jamarcus Mercedes on 08-10-2025 Anion gap [Moles/Vol] 9 mmol/L 02-25 [facility] Automated lymphocyte count a s percentage of total leukocytesOrdered By: Jamarcus Mercedes on 08-10-2025 Lymphocytes/100 WBC Auto (Unsp spec) 34.4 % [facility] BUN/creatinine ratioOrdered By: Jamarcus Mercedes on 08-10-2025 Urea nitrogen/Creatinine [Mass ratio] 18.3 mg/mg 08-02 [facility] Basic Metabolic Profile (BMP )on 08-10-2025 BUN/CRE 18.3 RATIO Normal 08-02 [facility] Comment on above: Performed By: #### L 501.5200, L500.2500, L100.0100, L501.2300 ####[facility] [address] [place], [address] Calcium [Mass/Vol] 7.9 mg/dL Normal 7.6-11.0 [facility] Comment on above: Performed By: #### L 501.5200, L500.2500, L100.0100, L501.2300 ####[facility] [address] [place], [address] Chloride [Moles/Vol] 106 mmol/L Normal 98-108 [facility] Comment on above: Performed By: #### L 501.5200, L500.2500, L100.0100, L501.2300 ####[facility] [address] [place], [address] CO2 [Moles/Vol] 23.0 mmol/L Normal 21.0-32.0 [facility] Comment on above: Performed By: #### L 501.5200, L500.2500, L100.0100, L501.2300 ####[facility] [address] [place], [address] Creatinine [Mass/Vol] 0.75 mg/dL Normal 0.70-1.20 [facility] Comment on above: Performed By: #### L 501.5200, L500.2500, L100.0100, L501.2300 ####[facility] [address] [place], [address] ECRCL 70.06 ml/min Normal 50-250 [facility] Comment on above: Performed By: #### L 501.5200, L500.2500, L100.0100, L501.2300 ####[facility] [address] [place], [address] GAP 9 Normal 5-15 [facility] Comment on above: Performed By: #### L 501.5200, L500.2500, L100.0100, L501.2300 ####[facility] [address] [place], [address] GFR/1.73 sq M.predicted among non-blacks MDRD (S/P/Bld) [Vol rate/Area] 91 mL/min/{1.73_m2} Normal >60 [facility] Comment on above: Result Comment: mL/m in/1.73m2 CKD-EPI Creatinine Equation (2020) Performed By: #### L 501.5200, L500.2500, L100.0100, L501.2300 ####[facility] [address] [place], [address] Glucose [Mass/Vol] 116 mg/dL High 70-99 [facility] Comment on above: Performed By: #### L 501.5200, L500.2500, L100.0100, L501.2300 ####[facility] [address] [place], [address] Potassium [Moles/Vol] 4.0 mmol/L Normal 3.3-5.1 [facility] Comment on above: Performed By: #### L 501.5200, L500.2500, L100.0100, L501.2300 ####[facility] [address] [place], [address] Sodium [Moles/Vol] 138 mmol/L Normal 133-145 [facility] Comment on above: Performed By: #### L 501.5200, L500.2500, L100.0100, L501.2300 ####[facility] [address] [place], [address] Urea nitrogen [Mass/Vol] 14 mg/dL Normal 4-19 [facility] Comment on above: Performed By: #### L 501.5200, L500.2500, L100.0100, L501.2300 ####[facility] [address] [place], [address] Basophil percentageOrdered B y: Jamarcus Mercedes on 08-10-2025 Basophils/100 WBC (Bld) 1.1 % High 0-1 [facility] CBC W/Diff, Automatedon 10-2 Absolute Lymph 1.27 X10 3/uL Normal 0.83-4.51 [facility] Comment on above: Performed By: #### L 501.5200, L500.2500, L100.0100, L501.2300 ####[facility] [address] [place], [address] Absolute Neut 1.9 X10 3/uL Low 2.0-7.7 [facility] Comment on above: Performed By: #### L 501.5200, L500.2500, L100.0100, L501.2300 ####[facility] [address] [place], [address] Basophils/100 WBC (Bld) 1.1 % High 0-1 [facility] Comment on above: Performed By: #### L 501.5200, L500.2500, L100.0100, L501.2300 ####[facility] [address] [place], [address] Eosinophils/100 WBC (Bld) 1.9 % Normal 0-5 [facility] Comment on above: Performed By: #### L 501.5200, L500.2500, L100.0100, L501.2300 ####[facility] [address] [place], [address] Erythrocyte distribution width (RBC) [Ratio] 15.0 % High 11.6-14.6 [facility] Comment on above: Performed By: #### L 501.5200, L500.2500, L100.0100, L501.2300 ####[facility] [address] [place], [address] Hematocrit (Bld) [Volume fraction] 29.1 % Low 40-54 [facility] Comment on above: Performed By: #### L 501.5200, L500.2500, L100.0100, L501.2300 ####[facility] [address] [place], [address] Hemoglobin (Bld) [Mass/Vol] 9.8 g/dL Low 13.0-16.5 [facility] Comment on above: Performed By: #### L 501.5200, L500.2500, L100.0100, L501.2300 ####[facility] [address] [place], [address] IG% 1.100 High 0.0-0.9 [facility] Comment on above: Result Comment: IG% - Immature Granulocytes (promyelocytes, myelocytes andmetamyelocytes) > 1% indicates that a LEFT SHIFT is Present. Performed By: #### L 501.5200, L500.2500, L100.0100, L501.2300 ####[facility] [address] [place], [address] Lymphocytes/100 WBC (Bld) 34.4 % Normal 19-41 [facility] Comment on above: Performed By: #### L 501.5200, L500.2500, L100.0100, L501.2300 ####[facility] [address] [place], [address] MCH (RBC) [Entitic mass] 29.8 pg Normal 27.0-32.0 [facility] Comment on above: Performed By: #### L 501.5200, L500.2500, L100.0100, L501.2300 ####[facility] [address] [place], [address] MCHC (RBC) [Mass/Vol] 33.7 g/dL Normal 32-36 [facility] Comment on above: Performed By: #### L 501.5200, L500.2500, L100.0100, L501.2300 ####[facility] [address] [place], [address] MCV (RBC) [Entitic vol] 88.4 fL Normal 80-94 [facility] Comment on above: Performed By: #### L 501.5200, L500.2500, L100.0100, L501.2300 ####[facility] [address] [place], [address] Monocytes/100 WBC (Bld) 11.4 % High 0-10 [facility] Comment on above: Performed By: #### L 501.5200, L500.2500, L100.0100, L501.2300 ####[facility] [address] [place], [address] Neutrophils/100 WBC (Bld) 50.1 % Normal 47-70 [facility] Comment on above: Performed By: #### L 501.5200, L500.2500, L100.0100, L501.2300 ####[facility] [address] [place], [address] Nucleated RBC (Bld) [#/Vol] 0 10*3/uL Normal 0-5 [facility] Comment on above: Performed By: #### L 501.5200, L500.2500, L100.0100, L501.2300 ####[facility] [address] [place], [address] Platelet mean volume (Bld) [Entitic vol] 9.9 fL Normal 6.2-12.0 [facility] Comment on above: Performed By: #### L 501.5200, L500.2500, L100.0100, L501.2300 ####[facility] [address] [place], [address] Platelets (Bld) [#/Vol] 238 10*3/uL Normal 150-450 [facility] Comment on above: Performed By: #### L 501.5200, L500.2500, L100.0100, L501.2300 ####[facility] [address] [place], [address] RBC (Bld) [#/Vol] 3.29 10*6/uL Low 4.6-6.2 [facility] Comment on above: Performed By: #### L 501.5200, L500.2500, L100.0100, L501.2300 ####[facility] [address] [place], [address] RDW SD 47.0 fl High 35.1-43.9 [facility] Comment on above: Performed By: #### L 501.5200, L500.2500, L100.0100, L501.2300 ####[facility] [address] [place], [address] WBC (Bld) [#/Vol] 3.7 10*3/uL Low 4.4-11.0 [facility] Comment on above: Performed By: #### L 501.5200, L500.2500, L100.0100, L501.2300 ####[facility] [address] [place], [address] Carbon dioxide, total [Moles /volume] in Central venous bloodOrdered By: Jamarcus Mercedes on 08-10-2025 CO2 [Moles/Vol] 23.0 mmol/L 21.0-32.0 [facility] Chloride assayOrdered By: Roshan Mercedes on 08-10-2025 Chloride [Moles/Vol] 106 mmol/L 98-108 [facility] Eosinophil percentageOrdered By: Jamarcus Mercedes on 08-10-2025 Eosinophils/100 WBC (Bld) 1.9 % 0-5 [facility] Erythrocyte distribution wid th ratioOrdered By: Jamarcus Mercedes on 08-10-2025 Erythrocyte distribution width (RBC) [Ratio] 15.0 % High 11.6-14.6 [facility] Erythrocyte distribution wid th standard deviationOrdered By: Jamarcus Mercedes on 08-10-2025 Erythrocyte distribution width (RBC) [Ratio] 47.0 fl High 35.1-43.9 [facility] Glomerular filtration rate ( GFR) estimation/1.73 sq m using serum, plasma, or whole bOrdered By: Jamarcus Mercedes on 08-10-2025 GFR/1.73 sq M.predicted among non-blacks MDRD (S/P/Bld) [Vol rate/Area] 91 mL/min/{1.73_m2} >60 [facility] Hematocrit Auto (Bld) [Volum e fraction]Ordered By: Jamarcus Mercedes on 08-10-2025 Hematocrit (Bld) [Volume fraction] 29.1 % Low 40-54 [facility] Hemoglobin measurementOrdere d By: Jamarcus Mercedes on 08-10-2025 Hemoglobin (Bld) [Mass/Vol] 9.8 g/dL Low 13.0-16.5 [facility] Immature granulocytes/100 WB C Auto (Bld)Ordered By: Jamarcus Mercedes on 08-10-2025 Immature granulocytes/100 WBC (Bld) 1.100 % High 0.0-0.9 [facility] MCV (mean corpuscular volume ) determinationOrdered By: Jamarcus Mercedes on 08-10-2025 MCV (RBC) [Entitic vol] 88.4 fL 80-94 [facility] Magnesiumon 08-10-2025 Magnesium [Mass/Vol] 2.0 mg/dL Normal 1.5-2.2 [facility] Comment on above: Performed By: #### L 501.5200, L500.2500, L100.0100, L501.2300 ####[facility] [address] [place], [address] Magnesium measurement (mass/ volume)Ordered By: Jamarcus Mercedes on 08-10-2025 Magnesium (Unsp spec) [Mass/Vol] 2.0 mg/dL 1.5-2.2 [facility] Mean corpuscular hemoglobin (MCH) determinationOrdered By: Jamarcus Mercedes on 08-10-2025 MCH (RBC) [Entitic mass] 29.8 pg 27.0-32.0 [facility] Monocyte percentageOrdered B y: Jamarcus Mercedes on 08-10-2025 Monocytes/100 WBC (Bld) 11.4 % High 0-10 [facility] Neutrophil percentageOrdered By: Jamarcus Mercedes on 08-10-2025 Neutrophils/100 WBC (Bld) 50.1 % 47-70 [facility] Phosphoruson 08-10-2025 Phosphate [Mass/Vol] 3.0 mg/dL Normal 2.7-4.5 [facility] Comment on above: Performed By: #### L 501.5200, L500.2500, L100.0100, L501.2300 ####[facility] [address] [place], [address] Platelet countOrdered By: Roshan Mercedes on 08-10-2025 Platelets (Bld) [#/Vol] 238 10*3/uL 150-450 [facility] Potassium measurement (mass/ volume)Ordered By: Jamarcus Mercedes on 08-10-2025 Potassium (Unsp spec) [Mass/Vol] 4.0 mmol/L 3.3-5.1 [facility] RBC Auto (Bld) [#/Vol]Ordere d By: Jamarcus Mercedes on 08-10-2025 RBC (Bld) [#/Vol] 3.29 10*6/uL Low 4.6-6.2 [facility] Serum creatinine measurement (mass/volume)Ordered By: Jamarcus Mercedes on 08-10-2025 Creatinine [Mass/Vol] 0.75 mg/dL 0.70-1.20 [facility] Serum glucose measurement (m ass/volume)Ordered By: Jamarcus Mercedes on 08-10-2025 Glucose [Mass/Vol] 116 mg/dL High 70-99 [facility] Serum or plasma calcium shanita urement (mass/volume)Ordered By: Jamarcus Mercedes on 08-10-2025 Calcium [Mass/Vol] 7.9 mg/dL 7.6-11.0 [facility] Serum or plasma urea nitroge n measurement (mass/volume)Ordered By: Jamarcus Mercedes on 08-10-2025 Urea nitrogen [Mass/Vol] 14 mg/dL 4-19 [facility] Sodium levelOrdered By: Bhupinder Mercedes on 08-10-2025 Sodium [Moles/Vol] 138 mmol/L 133-145 [facility] White blood cell (WBC) count Ordered By: Jamarcus Mercedes on 08-10-2025 WBC (Bld) [#/Vol] 3.7 10*3/uL Low 4.4-11.0 [facility] Absolute lymphocyte countOrd ered By: Ariel Sadler on 08-09-2025 Lymphocytes Auto (Unsp spec) [#/Vol] 1.16 10*3/uL 0.83-4.51 [facility] Anion gap in Serum or Plasma Ordered By: Ariel Sadler on 08-09-2025 Anion gap [Moles/Vol] 8 mmol/L 5-15 [facility] Automated lymphocyte count a s percentage of total leukocytesOrdered By: Ariel Sadler on 08-09-2025 Lymphocytes/100 WBC Auto (Unsp spec) 25.3 % 19-41 [facility] BUN/creatinine ratioOrdered By: Ariel Sadler on 08-09-2025 Urea nitrogen/Creatinine [Mass ratio] 21.5 mg/mg High 08-02 [facility] Basic Metabolic Profile (BMP )on 08-09-2025 BUN/CRE 21.5 RATIO High 08-02 [facility] Comment on above: Performed By: #### L 500.2500, L100.0100 ####[facility] [address] [place], [address] Calcium [Mass/Vol] 7.8 mg/dL Normal 7.6-11.0 [facility] Comment on above: Performed By: #### L 500.2500, L100.0100 ####[facility] [address] [place], [address] Chloride [Moles/Vol] 107 mmol/L Normal 98-108 [facility] Comment on above: Performed By: #### L 500.2500, L100.0100 ####[facility] [address] [place], [address] CO2 [Moles/Vol] 23.9 mmol/L Normal 21.0-32.0 [facility] Comment on above: Performed By: #### L 500.2500, L100.0100 ####[facility] [address] [place], [address] Creatinine [Mass/Vol] 0.77 mg/dL Normal 0.70-1.20 [facility] Comment on above: Performed By: #### L 500.2500, L100.0100 ####[facility] [address] [place], [address] ECRCL 70.06 ml/min Normal 50-250 [facility] Comment on above: Performed By: #### L 500.2500, L100.0100 ####[facility] [address] [place], [address] GAP 8 Normal 5-15 [facility] Comment on above: Performed By: #### L 500.2500, L100.0100 ####[facility] [address] [place], [address] GFR/1.73 sq M.predicted among non-blacks MDRD (S/P/Bld) [Vol rate/Area] 90 mL/min/{1.73_m2} Normal >60 [facility] Comment on above: Result Comment: mL/m in/1.73m2 CKD-EPI Creatinine Equation (2020) Performed By: #### L 500.2500, L100.0100 ####[facility] [address] [place], [address] Glucose [Mass/Vol] 123 mg/dL High 70-99 [facility] Comment on above: Performed By: #### L 500.2500, L100.0100 ####[facility] [address] [place], [address] Potassium [Moles/Vol] 3.6 mmol/L Normal 3.3-5.1 [facility] Comment on above: Performed By: #### L 500.2500, L100.0100 ####[facility] [address] [place], [address] Sodium [Moles/Vol] 139 mmol/L Normal 133-145 [facility] Comment on above: Performed By: #### L 500.2500, L100.0100 ####[facility] [address] [place], [address] Urea nitrogen [Mass/Vol] 17 mg/dL Normal 4-19 [facility] Comment on above: Performed By: #### L 500.2500, L100.0100 ####[facility] [address] [place], [address] Basophil percentageOrdered B y: Ariel Sadler on 08-09-2025 Basophils/100 WBC (Bld) 0.7 % 0-1 [facility] CBC W/Diff, Automatedon 07-15 Absolute Lymph 1.16 X10 3/uL Normal 0.83-4.51 [facility] Comment on above: Performed By: #### L 500.2500, L100.0100 ####[facility] [address] [place], [address] Absolute Neut 2.8 X10 3/uL Normal 2.0-7.7 [facility] Comment on above: Performed By: #### L 500.2500, L100.0100 ####[facility] [address] [place], [address] Basophils/100 WBC (Bld) 0.7 % Normal 0-1 [facility] Comment on above: Performed By: #### L 500.2500, L100.0100 ####[facility] [address] [place], [address] Eosinophils/100 WBC (Bld) 2.0 % Normal 0-5 [facility] Comment on above: Performed By: #### L 500.2500, L100.0100 ####[facility] [address] [place], [address] Erythrocyte distribution width (RBC) [Ratio] 15.1 % High 11.6-14.6 [facility] Comment on above: Performed By: #### L 500.2500, L100.0100 ####[facility] [address] [place], [address] Hematocrit (Bld) [Volume fraction] 27.5 % Low 40-54 [facility] Comment on above: Performed By: #### L 500.2500, L100.0100 ####[facility] [address] [place], [address] Hemoglobin (Bld) [Mass/Vol] 9.3 g/dL Low 13.0-16.5 [facility] Comment on above: Performed By: #### L 500.2500, L100.0100 ####[facility] [address] [place], [address] IG% 0.700 Normal 0.0-0.9 [facility] Comment on above: Result Comment: IG% - Immature Granulocytes (promyelocytes, myelocytes andmetamyelocytes) > 1% indicates that a LEFT SHIFT is Present. Performed By: #### L 500.2500, L100.0100 ####[facility] [address] [place], [address] Lymphocytes/100 WBC (Bld) 25.3 % Normal 19-41 [facility] Comment on above: Performed By: #### L 500.2500, L100.0100 ####[facility] [address] [place], [address] MCH (RBC) [Entitic mass] 30.3 pg Normal 27.0-32.0 [facility] Comment on above: Performed By: #### L 500.2500, L100.0100 ####[facility] [address] [place], [address] MCHC (RBC) [Mass/Vol] 33.8 g/dL Normal 32-36 [facility] Comment on above: Performed By: #### L 500.2500, L100.0100 ####[facility] [address] [place], [address] MCV (RBC) [Entitic vol] 89.6 fL Normal 80-94 [facility] Comment on above: Performed By: #### L 500.2500, L100.0100 ####[facility] [address] [place], [address] Monocytes/100 WBC (Bld) 10.5 % High 0-10 [facility] Comment on above: Performed By: #### L 500.2500, L100.0100 ####[facility] [address] [place], [address] Neutrophils/100 WBC (Bld) 60.8 % Normal 47-70 [facility] Comment on above: Performed By: #### L 500.2500, L100.0100 ####[facility] [address] [place], [address] Nucleated RBC (Bld) [#/Vol] 0 10*3/uL Normal 0-5 [facility] Comment on above: Performed By: #### L 500.2500, L100.0100 ####[facility] [address] [place], [address] Platelet mean volume (Bld) [Entitic vol] 10.2 fL Normal 6.2-12.0 [facility] Comment on above: Performed By: #### L 500.2500, L100.0100 ####[facility] [address] [place], [address] Platelets (Bld) [#/Vol] 199 10*3/uL Normal 150-450 [facility] Comment on above: Performed By: #### L 500.2500, L100.0100 ####[facility] [address] [place], [address] RBC (Bld) [#/Vol] 3.07 10*6/uL Low 4.6-6.2 [facility] Comment on above: Performed By: #### L 500.2500, L100.0100 ####[facility] [address] [place], [address] RDW SD 47.3 fl High 35.1-43.9 [facility] Comment on above: Performed By: #### L 500.2500, L100.0100 ####[facility] [address] [place], [address] WBC (Bld) [#/Vol] 4.6 10*3/uL Normal 4.4-11.0 [facility] Comment on above: Performed By: #### L 500.2500, L100.0100 ####[facility] [address] [place], [address] Absolute Neut Normal 2.0-7.7 [facility] Comment on above: Result Comment: NO S PECIMEN COLLECTED Performed By: #### L 500.4050, L100.0100 ####[facility] [address] [place], [address] HCT Normal 40-54 [facility] Comment on above: Result Comment: NO S PECIMEN COLLECTED Performed By: #### L 500.4050, L100.0100 ####[facility] [address] [place], [address] HGB Normal 13.0-16.5 [facility] Comment on above: Result Comment: NO S PECIMEN COLLECTED Performed By: #### L 500.4050, L100.0100 ####[facility] [address] [place], [address] MCH Normal 27.0-32.0 [facility] Comment on above: Result Comment: NO S PECIMEN COLLECTED Performed By: #### L 500.4050, L100.0100 ####[facility] [address] [place], [address] MCHC Normal 32-36 [facility] Comment on above: Result Comment: NO S PECIMEN COLLECTED Performed By: #### L 500.4050, L100.0100 ####[facility] [address] [place], [address] MCV Normal 80-94 [facility] Comment on above: Result Comment: NO S PECIMEN COLLECTED Performed By: #### L 500.4050, L100.0100 ####[facility] [address] [place], [address] NEUT% Normal 47-70 [facility] Comment on above: Result Comment: NO S PECIMEN COLLECTED Performed By: #### L 500.4050, L100.0100 ####[facility] [address] [place], [address] PLT Normal 150-450 [facility] Comment on above: Result Comment: NO S PECIMEN COLLECTED Performed By: #### L 500.4050, L100.0100 ####[facility] [address] [place], [address] RBC Normal 4.6-6.2 [facility] Comment on above: Result Comment: NO S PECIMEN COLLECTED Performed By: #### L 500.4050, L100.0100 ####[facility] [address] [place], [address] RDW CV Normal 11.6-14.6 [facility] Comment on above: Result Comment: NO S PECIMEN COLLECTED Performed By: #### L 500.4050, L100.0100 ####[facility] [id number] [place], [address] RDW SD Normal 35.1-43.9 [facility] Comment on above: Result Comment: NO S PECIMEN COLLECTED Performed By: #### L 500.4050, L100.0100 ####[facility] [address] [place], [address] WBC Normal 4.4-11.0 [facility] Comment on above: Result Comment: NO S PECIMEN COLLECTED Performed By: #### L 500.4050, L100.0100 ####[facility] [address] [place], [address] Carbon dioxide, total [Moles /volume] in Central venous bloodOrdered By: Ariel Sadler on 08-09-2025 CO2 [Moles/Vol] 23.9 mmol/L 21.0-32.0 [facility] Chloride assayOrdered By: Cristina Sadler on 08-09-2025 Chloride [Moles/Vol] 107 mmol/L 98-108 [facility] Comprehensive Metabolic Prof ilon 08-09-2025 ALB Normal 3.4-4.8 [facility] Comment on above: Result Comment: NO S PECIMEN COLLECTED Performed By: #### L 500.4050, L100.0100 ####[facility] [address] [place], [address] ALK PHOS Normal 40-129 [facility] Comment on above: Result Comment: NO S PECIMEN COLLECTED Performed By: #### L 500.4050, L100.0100 ####[facility] [address] [place], [address] ALT Normal <=46 [facility] Comment on above: Result Comment: NO S PECIMEN COLLECTED Performed By: #### L 500.4050, L100.0100 ####[facility] [address] [place], [address] AST Normal <=37 [facility] Comment on above: Result Comment: NO S PECIMEN COLLECTED Performed By: #### L 500.4050, L100.0100 ####[facility] [address] [place], [address] BUN Normal 4-19 [facility] Comment on above: Result Comment: NO S PECIMEN COLLECTED Performed By: #### L 500.4050, L100.0100 ####[facility] [address] [place], [address] BUN/CRE Normal 10-20 [facility] Comment on above: Result Comment: NO S PECIMEN COLLECTED Performed By: #### L 500.4050, L100.0100 ####[facility] [address] [place], [address] Calcium Normal 7.6-11.0 [facility] Comment on above: Result Comment: NO S PECIMEN COLLECTED Performed By: #### L 500.4050, L100.0100 ####[facility] [address] [place], [address] CL Normal 98-108 [facility] Comment on above: Result Comment: NO S PECIMEN COLLECTED Performed By: #### L 500.4050, L100.0100 ####[facility] [address] [place], [address] CO2 Normal 21.0-32.0 [facility] Comment on above: Result Comment: NO S PECIMEN COLLECTED Performed By: #### L 500.4050, L100.0100 ####[facility] [address] [place], [address] CREAT,SERUM Normal 0.70-1.20 [facility] Comment on above: Result Comment: NO S PECIMEN COLLECTED Performed By: #### L 500.4050, L100.0100 ####[facility] [address] [place], [address] eGFR Normal >60 [facility] Comment on above: Result Comment: NO S PECIMEN COLLECTED Performed By: #### L 500.4050, L100.0100 ####[facility] [address] [place], [address] GAP Normal 5-15 [facility] Comment on above: Result Comment: NO S PECIMEN COLLECTED Performed By: #### L 500.4050, L100.0100 ####[facility] [address] [place], [address] GLU Normal 70-99 [facility] Comment on above: Result Comment: NO S PECIMEN COLLECTED Performed By: #### L 500.4050, L100.0100 ####[facility] [address] [place], [address] Potassium Normal 3.3-5.1 [facility] Comment on above: Result Comment: NO S PECIMEN COLLECTED Performed By: #### L 500.4050, L100.0100 ####[facility] [address] [place], [address] T BILI Normal 0.00-1.30 [facility] Comment on above: Result Comment: NO S PECIMEN COLLECTED Performed By: #### L 500.4050, L100.0100 ####[facility] [address] [place], [address] T PROT Normal 5.9-8.4 [facility] Comment on above: Result Comment: NO S PECIMEN COLLECTED Performed By: #### L 500.4050, L100.0100 ####[facility] [address] [place], [address] Comprehensive Metabolic Profil Normal 133-145 [facility] Comment on above: Result Comment: NO S PECIMEN COLLECTED Performed By: #### L 500.4050, L100.0100 ####[facility] [address] [place], [address] Eosinophil percentageOrdered By: Ariel Sadler on 08-09-2025 Eosinophils/100 WBC (Bld) 2.0 % 0-5 [facility] Erythrocyte distribution wid th ratioOrdered By: Ariel Sadler on 08-09-2025 Erythrocyte distribution width (RBC) [Ratio] 15.1 % High 11.6-14.6 [facility] Erythrocyte distribution wid th standard deviationOrdered By: Ariel Sadler on 08-09-2025 Erythrocyte distribution width (RBC) [Ratio] 47.3 fl High 35.1-43.9 [facility] Glomerular filtration rate ( GFR) estimation/1.73 sq m using serum, plasma, or whole bOrdered By: Ariel Sadler on 08-09-2025 GFR/1.73 sq M.predicted among non-blacks MDRD (S/P/Bld) [Vol rate/Area] 90 mL/min/{1.73_m2} >60 [facility] Hematocrit Auto (Bld) [Volum e fraction]Ordered By: Ariel Sadler on 08-09-2025 Hematocrit (Bld) [Volume fraction] 27.5 % Low 40-54 [facility] Hemoglobin measurementOrdere d By: Ariel Sadler on 08-09-2025 Hemoglobin (Bld) [Mass/Vol] 9.3 g/dL Low 13.0-16.5 [facility] Immature granulocytes/100 WB C Auto (Bld)Ordered By: Ariel Sadler on 08-09-2025 Immature granulocytes/100 WBC (Bld) 0.700 % 0.0-0.9 [facility] MCV (mean corpuscular volume ) determinationOrdered By: Ariel Sadler on 08-09-2025 MCV (RBC) [Entitic vol] 89.6 fL 80-94 [facility] Mean corpuscular hemoglobin (MCH) determinationOrdered By: Ariel Sadler on 08-09-2025 MCH (RBC) [Entitic mass] 30.3 pg 27.0-32.0 [facility] Monocyte percentageOrdered B y: Ariel Sadler on 08-09-2025 Monocytes/100 WBC (Bld) 10.5 % High 0-10 [facility] Neutrophil percentageOrdered By: Ariel Sadler on 08-09-2025 Neutrophils/100 WBC (Bld) 60.8 % 47-70 [facility] Platelet countOrdered By: Cristina Sadler on 08-09-2025 Platelets (Bld) [#/Vol] 199 10*3/uL 150-450 [facility] Potassium measurement (mass/ volume)Ordered By: Ariel Sadler on 08-09-2025 Potassium (Unsp spec) [Mass/Vol] 3.6 mmol/L 3.3-5.1 [facility] RBC Auto (Bld) [#/Vol]Ordere d By: Ariel Sadler on 08-09-2025 RBC (Bld) [#/Vol] 3.07 10*6/uL Low 4.6-6.2 [facility] Serum creatinine measurement (mass/volume)Ordered By: Ariel Sadler on 08-09-2025 Creatinine [Mass/Vol] 0.77 mg/dL 0.70-1.20 [facility] Serum glucose measurement (m ass/volume)Ordered By: Ariel Sadler on 08-09-2025 Glucose [Mass/Vol] 123 mg/dL High 70-99 [facility] Serum or plasma calcium shanita urement (mass/volume)Ordered By: Ariel Sadler on 08-09-2025 Calcium [Mass/Vol] 7.8 mg/dL 7.6-11.0 [facility] Serum or plasma urea nitroge n measurement (mass/volume)Ordered By: Ariel Sadler on 08-09-2025 Urea nitrogen [Mass/Vol] 17 mg/dL 4-19 [facility] Sodium levelOrdered By: Ariel Sadler on 08-09-2025 Sodium [Moles/Vol] 139 mmol/L 133-145 [facility] White blood cell (WBC) count Ordered By: Ariel Sadler on 08-09-2025 WBC (Bld) [#/Vol] 4.6 10*3/uL 4.4-11.0 [facility] Bilirubin, totalOrdered By: Jamarcus Cespedes on 08-08-2025 Bilirubin [Mass/Vol] 0.30 mg/dL 0.00-1.30 [facility] CBC W/Diff, Automatedon 10 Absolute Lymph 1.09 X10 3/uL Normal 0.83-4.51 [facility] Comment on above: Performed By: #### L 500.4050, L100.0100 ####[facility] [address] [place], [address] Absolute Neut 2.4 X10 3/uL Normal 2.0-7.7 [facility] Comment on above: Performed By: #### L 500.4050, L100.0100 ####[facility] [address] [place], [address] Basophils/100 WBC (Bld) 0.5 % Normal 0-1 [facility] Comment on above: Performed By: #### L 500.4050, L100.0100 ####[facility] [address] [place], [address] Eosinophils/100 WBC (Bld) 1.4 % Normal 0-5 [facility] Comment on above: Performed By: #### L 500.4050, L100.0100 ####[facility] [address] [place], [address] Erythrocyte distribution width (RBC) [Ratio] 14.9 % High 11.6-14.6 [facility] Comment on above: Performed By: #### L 500.4050, L100.0100 ####[facility] [address] [place], [address] Hematocrit (Bld) [Volume fraction] 29.5 % Low 40-54 [facility] Comment on above: Performed By: #### L 500.4050, L100.0100 ####[facility] [address] [place], [address] Hemoglobin (Bld) [Mass/Vol] 9.9 g/dL Low 13.0-16.5 [facility] Comment on above: Performed By: #### L 500.4050, L100.0100 ####[facility] [address] [place], [address] IG% 1.700 High 0.0-0.9 [facility] Comment on above: Result Comment: IG% - Immature Granulocytes (promyelocytes, myelocytes andmetamyelocytes) > 1% indicates that a LEFT SHIFT is Present. Performed By: #### L 500.4050, L100.0100 ####[facility] [address] [place], [address] Lymphocytes/100 WBC (Bld) 26.1 % Normal 19-41 [facility] Comment on above: Performed By: #### L 500.4050, L100.0100 ####[facility] [address] [place], [address] MCH (RBC) [Entitic mass] 30.0 pg Normal 27.0-32.0 [facility] Comment on above: Performed By: #### L 500.4050, L100.0100 ####[facility] [address] [place], [address] MCHC (RBC) [Mass/Vol] 33.6 g/dL Normal 32-36 [facility] Comment on above: Performed By: #### L 500.4050, L100.0100 ####[facility] [address] [place], [address] MCV (RBC) [Entitic vol] 89.4 fL Normal 80-94 [facility] Comment on above: Performed By: #### L 500.4050, L100.0100 ####[facility] [address] [place], [address] Monocytes/100 WBC (Bld) 12.5 % High 0-10 [facility] Comment on above: Performed By: #### L 500.4050, L100.0100 ####[facility] [address] [place], [address] Neutrophils/100 WBC (Bld) 57.8 % Normal 47-70 [facility] Comment on above: Performed By: #### L 500.4050, L100.0100 ####[facility] [address] [place], [address] Nucleated RBC (Bld) [#/Vol] 0 10*3/uL Normal 0-5 [facility] Comment on above: Performed By: #### L 500.4050, L100.0100 ####[facility] [address] [place], [address] Platelet mean volume (Bld) [Entitic vol] 10.3 fL Normal 6.2-12.0 [facility] Comment on above: Performed By: #### L 500.4050, L100.0100 ####[facility] [address] [place], [address] Platelets (Bld) [#/Vol] 187 10*3/uL Normal 150-450 [facility] Comment on above: Performed By: #### L 500.4050, L100.0100 ####[facility] [address] [place], [address] RBC (Bld) [#/Vol] 3.30 10*6/uL Low 4.6-6.2 [facility] Comment on above: Performed By: #### L 500.4050, L100.0100 ####[facility] [address] [place], [address] RDW SD 46.7 fl High 35.1-43.9 [facility] Comment on above: Performed By: #### L 500.4050, L100.0100 ####[facility] [address] [place], [address] WBC (Bld) [#/Vol] 4.2 10*3/uL Low 4.4-11.0 [facility] Comment on above: Performed By: #### L 500.4050, L100.0100 ####[facility] [address] [place], [address] Comprehensive Metabolic Prof ilon 08-08-2025 Albumin [Mass/Vol] 2.9 g/dL Low 3.4-4.8 [facility] Comment on above: Performed By: #### L 500.4050, L100.0100 ####[facility] [address] [place], [address] Albumin/Globulin [Mass ratio] 1.1 {ratio} Normal 0.9-2.4 [facility] Comment on above: Performed By: #### L 500.4050, L100.0100 ####[facility] [address] [place], [address] ALK PHOS 69 U/L Normal 40-129 [facility] Comment on above: Performed By: #### L 500.4050, L100.0100 ####[facility] [address] [place], [address] ALT [Catalytic activity/Vol] 17 U/L Normal <=46 [facility] Comment on above: Performed By: #### L 500.4050, L100.0100 ####[facility] [address] [place], [address] AST [Catalytic activity/Vol] 25 U/L Normal <=37 [facility] Comment on above: Performed By: #### L 500.4050, L100.0100 ####[facility] [address] [place], [address] Bilirubin [Mass/Vol] 0.30 mg/dL Normal 0.00-1.30 [facility] Comment on above: Performed By: #### L 500.4050, L100.0100 ####[facility] [address] [place], [address] BUN/CRE 23.4 RATIO High 10-20 [facility] Comment on above: Performed By: #### L 500.4050, L100.0100 ####[facility] [address] [place], [address] Calcium [Mass/Vol] 8.0 mg/dL Normal 7.6-11.0 [facility] Comment on above: Performed By: #### L 500.4050, L100.0100 ####[facility] [address] [place], [address] Chloride [Moles/Vol] 110 mmol/L High 98-108 [facility] Comment on above: Performed By: #### L 500.4050, L100.0100 ####[facility] [address] [place], [address] CO2 [Moles/Vol] 23.9 mmol/L Normal 21.0-32.0 [facility] Comment on above: Performed By: #### L 500.4050, L100.0100 ####[facility] [address] [place], [address] Creatinine [Mass/Vol] 0.76 mg/dL Normal 0.70-1.20 [facility] Comment on above: Performed By: #### L 500.4050, L100.0100 ####[facility] [address] [place], [address] ECRCL 70.06 ml/min Normal 50-250 [facility] Comment on above: Performed By: #### L 500.4050, L100.0100 ####[facility] [address] [place], [address] GAP 7 Normal 5-15 [facility] Comment on above: Performed By: #### L 500.4050, L100.0100 ####[facility] [address] [place], [address] GFR/1.73 sq M.predicted among non-blacks MDRD (S/P/Bld) [Vol rate/Area] 90 mL/min/{1.73_m2} Normal >60 [facility] Comment on above: Result Comment: mL/m in/1.73m2 CKD-EPI Creatinine Equation (2020) Performed By: #### L 500.4050, L100.0100 ####[facility] [address] [place], [address] Globulin (S) [Mass/Vol] 2.6 g/dL Normal 2.2-4.2 [facility] Comment on above: Performed By: #### L 500.4050, L100.0100 ####[facility] [address] [place], [address] Glucose [Mass/Vol] 120 mg/dL High 70-99 [facility] Comment on above: Performed By: #### L 500.4050, L100.0100 ####[facility] [address] [place], [address] Potassium [Moles/Vol] 3.9 mmol/L Normal 3.3-5.1 [facility] Comment on above: Performed By: #### L 500.4050, L100.0100 ####[facility] [address] [place], [address] Sodium [Moles/Vol] 140 mmol/L Normal 133-145 [facility] Comment on above: Performed By: #### L 500.4050, L100.0100 ####[facility] [address] [place], [address] T PROT 5.5 g/dL Low 5.9-8.4 [facility] Comment on above: Performed By: #### L 500.4050, L100.0100 ####[facility] [address] [place], [address] Urea nitrogen [Mass/Vol] 18 mg/dL Normal 4-19 [facility] Comment on above: Performed By: #### L 500.4050, L100.0100 ####[facility] [address] [place], [address] No Panel InformationOrdered By: Jamarcus Cespedes on 08-08-2025 25 U/L <38 [facility] Serum globulin measurementOr dered By: Jamarcus Cespedes on 08-08-2025 Globulin (S) [Mass/Vol] 2.6 g/dL 2.2-4.2 [facility] Serum or plasma alanine macias otransferase (ALT) measurementOrdered By: Jamarcus Cespedes on 08-08-2025 ALT [Catalytic activity/Vol] 17 U/L <47 [facility] Serum or plasma albumin shanita urement (mass/volume)Ordered By: Jamarcus Cespedes on 08-08-2025 Albumin [Mass/Vol] 2.9 g/dL Low 3.4-4.8 [facility] Serum or plasma albumin/glob ulin mass ratioOrdered By: Jamarcus Cespedes on 08-08-2025 Albumin/Globulin [Mass ratio] 1.1 {ratio} 0.9-2.4 [facility] Serum or plasma alkaline tobin sphatase measurementOrdered By: Jamarcus Cespedes on 08-08-2025 ALP [Catalytic activity/Vol] 69 U/L 40-129 [facility] Total proteinOrdered By: Ashish Cespedes on 08-08-2025 Protein [Mass/Vol] 5.5 g/dL Low 5.9-8.4 [facility] Urine Cultureon 08-08-2025 URC Culture exhibits no growth. Normal [facility] Comment on above: Performed By: #### M 100.2200 ####[facility] [address] [place], [place], [address] 12 Lead EKGon 08-07-20[address] [facility] Activated partial thrombopla stin time (aPTT) in platelet poor plasma by coagulation aOrdered By: Ariel Painter on 08-07-2025 aPTT Coag (PPP) [Time] 34.8 s 24.1-36.2 [facility] Basic Metabolic Profile (BMP )on 08-07-2025 BUN/CRE 29.7 RATIO High - [facility] Comment on above: Performed By: #### L 503.6005, L500.2500, L300.4310, L300.3900, L100.0100 ####[facility] [address] [place], [address] Calcium [Mass/Vol] 8.0 mg/dL Normal 7.6-11.0 [facility] Comment on above: Performed By: #### L 503.6005, L500.2500, L300.4310, L300.3900, L100.0100 ####[facility] [address] [place], [address] Chloride [Moles/Vol] 106 mmol/L Normal 98-108 [facility] Comment on above: Performed By: #### L 503.6005, L500.2500, L300.4310, L300.3900, L100.0100 ####[facility] [address] [place], [address] CO2 [Moles/Vol] 24.8 mmol/L Normal 21.0-32.0 [facility] Comment on above: Performed By: #### L 503.6005, L500.2500, L300.4310, L300.3900, L100.0100 ####[facility] [address] [place], [address] Creatinine [Mass/Vol] 0.95 mg/dL Normal 0.70-1.20 [facility] Comment on above: Performed By: #### L 503.6005, L500.2500, L300.4310, L300.3900, L100.0100 ####[facility] [address] [place], [address] ECRCL 59.00 ml/min Normal 50-250 [facility] Comment on above: Performed By: #### L 503.6005, L500.2500, L300.4310, L300.3900, L100.0100 ####[facility] [address] [place], [address] GAP 8 Normal 5-15 [facility] Comment on above: Performed By: #### L 503.6005, L500.2500, L300.4310, L300.3900, L100.0100 ####[facility] [address] [place], [address] GFR/1.73 sq M.predicted among non-blacks MDRD (S/P/Bld) [Vol rate/Area] 81 mL/min/{1.73_m2} Normal >60 [facility] Comment on above: Result Comment: mL/m in/1.73m2 CKD-EPI Creatinine Equation (2020) Performed By: #### L 503.6005, L500.2500, L300.4310, L300.3900, L100.0100 ####[facility] [address] [place], [address] Glucose [Mass/Vol] 119 mg/dL High 70-99 [facility] Comment on above: Performed By: #### L 503.6005, L500.2500, L300.4310, L300.3900, L100.0100 ####[facility] [address] [place], [address] Potassium [Moles/Vol] 4.1 mmol/L Normal 3.3-5.1 [facility] Comment on above: Performed By: #### L 503.6005, L500.2500, L300.4310, L300.3900, L100.0100 ####[facility] [address] [place], [address] Sodium [Moles/Vol] 139 mmol/L Normal 133-145 [facility] Comment on above: Performed By: #### L 503.6005, L500.2500, L300.4310, L300.3900, L100.0100 ####[facility] [address] [place], [address] Urea nitrogen [Mass/Vol] 28 mg/dL High 4-19 [facility] Comment on above: Performed By: #### L 503.6005, L500.2500, L300.4310, L300.3900, L100.0100 ####[facility] [address] [place], [address] Bilirubin Test strip Ql (U)O rdered By: Ariel Painter on 08-07-2025 Bilirubin Ql (U) Negative Negative [facility] Blood cultureOrdered By: Rena Painter on 08-07-2025 Bacteria identified Cx Nom (Bld) No growth in [address] [facility] Bacteria identified Cx Nom (Bld) No growth in [address] [facility] Bacteria identified Cx Nom (Bld) No growth in [address] [facility] Bacteria identified Cx Nom (Bld) No growth in [address] [facility] CBC W/Diff, Automatedon 10-2 Absolute Lymph 1.32 X10 3/uL Normal 0.83-4.51 [facility] Comment on above: Performed By: #### L 503.6005, L500.2500, L300.4310, L300.3900, L100.0100 ####[facility] [address] [place], [address] Absolute Neut 3.2 X10 3/uL Normal 2.0-7.7 [facility] Comment on above: Performed By: #### L 503.6005, L500.2500, L300.4310, L300.3900, L100.0100 ####[facility] [address] [place], [address] Basophils/100 WBC (Bld) 0.9 % Normal 0-1 [facility] Comment on above: Performed By: #### L 503.6005, L500.2500, L300.4310, L300.3900, L100.0100 ####[facility] [address] [place], [address] Eosinophils/100 WBC (Bld) 0.4 % Normal 0-5 [facility] Comment on above: Performed By: #### L 503.6005, L500.2500, L300.4310, L300.3900, L100.0100 ####[facility] [address] [place], [address] Erythrocyte distribution width (RBC) [Ratio] 14.9 % High 11.6-14.6 [facility] Comment on above: Performed By: #### L 503.6005, L500.2500, L300.4310, L300.3900, L100.0100 ####[facility] [address] [place], [address] Hematocrit (Bld) [Volume fraction] 30.2 % Low 40-54 [facility] Comment on above: Performed By: #### L 503.6005, L500.2500, L300.4310, L300.3900, L100.0100 ####[facility] [address] [place], [address] Hemoglobin (Bld) [Mass/Vol] 9.9 g/dL Low 13.0-16.5 [facility] Comment on above: Performed By: #### L 503.6005, L500.2500, L300.4310, L300.3900, L100.0100 ####[facility] [address] [place], [address] IG% 2.200 High 0.0-0.9 [facility] Comment on above: Result Comment: IG% - Immature Granulocytes (promyelocytes, myelocytes andmetamyelocytes) > 1% indicates that a LEFT SHIFT is Present. Performed By: #### L 503.6005, L500.2500, L300.4310, L300.3900, L100.0100 ####[facility] [address] [place], [address] Lymphocytes/100 WBC (Bld) 24.4 % Normal 19-41 [facility] Comment on above: Performed By: #### L 503.6005, L500.2500, L300.4310, L300.3900, L100.0100 ####[facility] [address] [place], [address] MCH (RBC) [Entitic mass] 29.3 pg Normal 27.0-32.0 [facility] Comment on above: Performed By: #### L 503.6005, L500.2500, L300.4310, L300.3900, L100.0100 ####[facility] [address] [place], [address] MCHC (RBC) [Mass/Vol] 32.8 g/dL Normal 32-36 [facility] Comment on above: Performed By: #### L 503.6005, L500.2500, L300.4310, L300.3900, L100.0100 ####[facility] [address] [place], [address] MCV (RBC) [Entitic vol] 89.3 fL Normal 80-94 [facility] Comment on above: Performed By: #### L 503.6005, L500.2500, L300.4310, L300.3900, L100.0100 ####[facility] [address] [place], [address] Monocytes/100 WBC (Bld) 13.7 % High 0-10 [facility] Comment on above: Performed By: #### L 503.6005, L500.2500, L300.4310, L300.3900, L100.0100 ####[facility] [address] [place], [address] Neutrophils/100 WBC (Bld) 58.4 % Normal 47-70 [facility] Comment on above: Performed By: #### L 503.6005, L500.2500, L300.4310, L300.3900, L100.0100 ####[facility] [address] [place], [address] Nucleated RBC (Bld) [#/Vol] 0 10*3/uL Normal 0-5 [facility] Comment on above: Performed By: #### L 503.6005, L500.2500, L300.4310, L300.3900, L100.0100 ####[facility] [address] [place], [address] Platelet mean volume (Bld) [Entitic vol] 10.4 fL Normal 6.2-12.0 [facility] Comment on above: Performed By: #### L 503.6005, L500.2500, L300.4310, L300.3900, L100.0100 ####[facility] [address] [place], [address] Platelets (Bld) [#/Vol] 178 10*3/uL Normal 150-450 [facility] Comment on above: Performed By: #### L 503.6005, L500.2500, L300.4310, L300.3900, L100.0100 ####[facility] [address] [place], [address] RBC (Bld) [#/Vol] 3.38 10*6/uL Low 4.6-6.2 [facility] Comment on above: Performed By: #### L 503.6005, L500.2500, L300.4310, L300.3900, L100.0100 ####[facility] [address] [place], [address] RDW SD 47.5 fl High 35.1-43.9 [facility] Comment on above: Performed By: #### L 503.6005, L500.2500, L300.4310, L300.3900, L100.0100 ####[facility] [address] [place], [address] WBC (Bld) [#/Vol] 5.4 10*3/uL Normal 4.4-11.0 [facility] Comment on above: Performed By: #### L 503.6005, L500.2500, L300.4310, L300.3900, L100.0100 ####[facility] [address] [place], [address] Chest 1 View (Portable)on Chest 1 View (Portable) Normal [facility] Chest WITH Contraston 2024 Chest WITH Contrast Normal [facility] Emergency Department Summary on 08-07-2025 Emergency Department Summary Normal [facility] H AND P Exam - Hospitaliston 08-07-2025 H&P Exam - Hospitalist Normal [facility] Influenza virus A and B and SARS-CoV-2 (COVID-19) and Respiratory syncytial virus RNAOrdered By: Ariel Painter on 08-07-2025 SARS-CoV-2 (COVID-19) RNA DEMIAN+probe Ql (Unsp spec) [facility] SARS-CoV-2 (COVID-19) RNA DEMIAN+probe Ql (Unsp spec) [facility] Ketones Test strip Ql (U)Ord ered By: Ariel Painter on 08-07-2025 Ketones Ql (U) Negative Negative [facility] L501.4021on 08-07-2025 Trop T High Sen 19 ng/L Normal <=22 [facility] Comment on above: Performed By: #### L 501.4021 ####[facility] [address] [place], [address] Lactic Acidon 08-07-2025 Lactate [Moles/Vol] mmol/L Normal 0.0-2.0 [facility] Comment on above: Order Comment: Y Performed By: #### L 503.6005, L500.2500, L300.4310, L300.3900, L100.0100 ####[facility] [address] [place], [address] Legionella Antigen Urineon [address] [facility] Comment on above: Performed By: #### M 300.4600, M300.4500 ####[facility] [address] [place], [address] M100.678on 08-07-2025 M100.678 Normal Reference Ran ge = Negative FLUABV+SARS-CoV-2+RSV Pnl Resp DEMIAN+probe deltaDNA Instrument, PCR method SARS-CoV-2 (COVID 19) Negative INFLUENZA A Negative INFLUENZA B Negative RSV PCR Negative Normal [facility] Comment on above: Performed By: #### M 100.678 ####[facility] [address] [place], [address] Magnesiumon 08-07-2025 Magnesium [Mass/Vol] 2.1 mg/dL Normal 1.5-2.2 [facility] Comment on above: Performed By: #### L 501.9520, L501.5200 ####[facility] [address] [place], [address] Magnesium measurement (mass/ volume)Ordered By: Jamarcus Cespedes on 08-07-2025 Magnesium (Unsp spec) [Mass/Vol] 2.1 mg/dL 1.5-2.2 [facility] Mucus LM Ql (Urine sed)Order ed By: Ariel Painter on 08-07-2025 Mucus Ql (Urine sed) 0 SEEN /hpf [facility] Nitrite Test strip Ql (U)Ord ered By: Ariel Painter on 08-07-2025 Nitrite Ql (U) Negative Negative [facility] Partial Thromboplast Timeon 08-07-2025 aPTT Coag (Bld) [Time] 34.8 s Normal 24.1-36.2 [facility] Comment on above: Performed By: #### L 503.6005, L500.2500, L300.4310, L300.3900, L100.0100 ####[facility] [address] [place], [address] Phosphoruson 08-07-2025 Phosphate [Mass/Vol] 3.0 mg/dL Normal 2.7-4.5 [facility] Comment on above: Performed By: #### L 501.2300 ####[facility] [address] [place], [address] Protein Test strip Ql (U)Ord ered By: Ariel Painter on 08-07-2025 Protein Ql (U) Negative Negative [facility] Prothrombin Time w/INRon INR Coag (PPP) [Relative time] 1.6 {INR} Normal [facility] Comment on above: Performed By: #### L 503.6005, L500.2500, L300.4310, L300.3900, L100.0100 ####[facility] [address] [place], [address] PT Coag (PPP) [Time] 19.3 s High 11.7-14.9 [facility] Comment on above: Performed By: #### L 503.6005, L500.2500, L300.4310, L300.3900, L100.0100 ####[facility] [address] [place], [address] Prothrombin timeOrdered By: Ariel Painter on 08-07-2025 PT Coag (PPP) [Time] 19.3 s High 11.7-14.9 [facility] RESPIRATORY PANEL MOLECULARo n 08-07-[address] [facility] Comment on above: Performed By: #### M 100.638 ####[facility] [address] [place], [address] Respiratory pathogens detect ion panel by molecular detection methodOrdered By: Jamarcus Cespedes on 08-07-2025 Respiratory pathogens DNA and RNA panel DEMIAN+probe (Resp) [facility] Respiratory pathogens DNA and RNA panel DEMIAN+probe (Resp) [facility] Squamous epithelial cells de tection in urine sediment by light microscopyOrdered By: Ariel Painter on 08-07-2025 Epithelial cells.squamous LM Ql (Urine sed) 0 SEEN /hpf 0-5 [facility] Strep pneumoniae Antig(UR,CS F)on 08-07-[address] [facility] Comment on above: Performed By: #### M 300.4600, M300.4500 ####[facility] [address] [place], [address] TSH DL <= 0.005 mIU/L QnOrde red By: Jamarcus Cespedes on 08-07-2025 TSH Qn 0.592 uIU/mL 0.300-4.[address] [facility] Thyroid Stim Hormone (TSH)on 08-07-2025 TSH 0.592 uIU/mL Normal 0.300-4.[address] [facility] Comment on above: Performed By: #### L 501.9520, L501.5200 ####[facility] [address] [place], [address] Troponin T HS 2 HRon 08-07-2 025 Trop T High Sen 19 ng/L Normal <=22 [facility] Comment on above: Performed By: #### L 499.0042 ####[facility] [address] [place], [address] Troponin T HS 4 HRon 08-07-2 025 Trop T High Sen 18 ng/L Normal <=22 [facility] Comment on above: Performed By: #### L 499.0043 ####[facility] [address] [place], [address] Troponin T.cardiac [Mass/vol ume] in Serum or Plasma by High sensitivity methodOrdered By: Ariel Painter on 08-07-2025 Troponin T.cardiac High sensitivity method [Mass/Vol] 18 ng/L <22 [facility] Troponin T.cardiac High sensitivity method [Mass/Vol] 19 ng/L <22 [facility] Troponin T.cardiac High sensitivity method [Mass/Vol] 19 ng/L <22 [facility] Urinalysis, Completeon 08-07 RBC 0-5 SEEN Normal 0-5 [facility] Comment on above: Order Comment: CLEAN CATCH Performed By: #### L 400.0001 ####[facility] [address] [place], [address] WBC 0-5 SEEN Normal 0-5 [facility] Comment on above: Order Comment: CLEAN CATCH Performed By: #### L 400.0001 ####[facility] [address] [place], [address] BACTERIA 0 SEEN Normal None Seen [facility] Comment on above: Order Comment: CLEAN CATCH Performed By: #### L 400.0001 ####[facility] [address] [place], [address] EPI,SQUAMOUS 0 SEEN Normal 0-5 [facility] Comment on above: Order Comment: CLEAN CATCH Performed By: #### L 400.0001 ####[facility] [address] [place], [address] Mucus Ql (Urine sed) 0 SEEN Normal [facility] Comment on above: Order Comment: CLEAN CATCH Performed By: #### L 400.0001 ####[facility] [address] [place], [address] Urine Legionella pneumophila antigen detectionOrdered By: Jamarcus Cespedes on 08-07-2025 L. pneumophila Ag Ql (U) [facility] L. pneumophila Ag Ql (U) [facility] Urine clarityOrdered By: Rena Painter on 08-07-2025 Clarity (U) Clear Clear [facility] Urine color determinationOrd ered By: Ariel Painter on 08-07-2025 Color (U) Yellow Yellow [facility] Urine cultureOrdered By: Rena Painter on 08-07-2025 Bacteria identified Cx Nom (U) Culture exhibits no growth. [facility] Bacteria identified Cx Nom (U) Culture exhibits no growth. [facility] Urine glucose detectionOrder ed By: Ariel Painter on 08-07-2025 Glucose Ql (U) Normal mg/dl Normal [facility] Urine leukocyte esterase det ection by dipstickOrdered By: Ariel Painter on 08-07-2025 Leukocyte esterase Test strip Ql (U) Negative Negative [facility] Urine pHOrdered By: Ariel nicholas on 08-07-2025 pH (U) 8.0 [pH] 5.0 - 8.0 [facility] Urine sediment bacteria coun t by microscopy (number/high power field)Ordered By: Ariel Painter on 08-07-2025 Bacteria LM.HPF (Urine sed) [#/Area] 0 /[HPF] None Seen [facility] Urine specific gravity measu rementOrdered By: Ariel Painter on 08-07-2025 Specific gravity (U) [Rel density] 1.015 1.002-1.[address] [facility] Urine urobilinogen measureme ntOrdered By: Ariel Painter on 08-07-2025 Urobilinogen Ql (U) Normal mg/dl Normal [facility] White blood cell countOrdere d By: Ariel Painter on 08-07-2025 White blood cell count 0-5 SEEN /hpf 0-5 [facility] Basic Metabolic Profile (BMP )on 08-05-2025 BUN Normal - [facility] Comment on above: Result Comment: Canc elled via OM: Order cancelled - Patient discharged Performed By: #### L 500.2500 ####[facility] [address] [place], [place], [address] BUN/CRE Normal - [facility] Comment on above: Result Comment: Canc elled via OM: Order cancelled - Patient discharged Performed By: #### L 500.2500 ####[facility] [address] [place], [address] Calcium Normal 7.6-11.0 [facility] Comment on above: Result Comment: Canc elled via OM: Order cancelled - Patient discharged Performed By: #### L 500.2500 ####[facility] [address] [place], [address] CL Normal 98-108 [facility] Comment on above: Result Comment: Canc elled via OM: Order cancelled - Patient discharged Performed By: #### L 500.2500 ####[facility] [address] [place], [address] CO2 Normal 21.0-32.0 [facility] Comment on above: Result Comment: Canc elled via OM: Order cancelled - Patient discharged Performed By: #### L 500.2500 ####[facility] [address] [place], [address] CREAT,SERUM Normal 0.70-1.20 [facility] Comment on above: Result Comment: Canc elled via OM: Order cancelled - Patient discharged Performed By: #### L 500.2500 ####[facility] [address] [place], [address] eGFR Normal >60 [facility] Comment on above: Result Comment: Canc elled via OM: Order cancelled - Patient discharged Performed By: #### L 500.2500 ####[facility] [address] [place], [address] GAP Normal 5-15 [facility] Comment on above: Result Comment: Canc elled via OM: Order cancelled - Patient discharged Performed By: #### L 500.2500 ####[facility] [address] [place], [address] GLU Normal 70-99 [facility] Comment on above: Result Comment: Canc elled via OM: Order cancelled - Patient discharged Performed By: #### L 500.2500 ####[facility] [address] [place], [address] Potassium Normal 3.3-5.1 [facility] Comment on above: Result Comment: Canc elled via OM: Order cancelled - Patient discharged Performed By: #### L 500.2500 ####[facility] [address] [place], [address] Basic Metabolic Profile (BMP) Normal 133-145 [facility] Comment on above: Result Comment: Canc elled via OM: Order cancelled - Patient discharged Performed By: #### L 500.2500 ####[facility] [address] [place], [address] CBC W/Diff, Automatedon - PATH REV Reviewed Normal [facility] Comment on above: Result Comment: LEUK OCYTOSIS WITH LEFT SHIFT, NEUTROPHILIA.NORMOCYTIC ANEMIA.PLATELETS ARE ADEQUATE.Nicole Kraus DO 08/04/2025 AMENDED REPORT 08/05/25 0845 PATH REV previously reported as: May foll Performed By: #### L 100.0100 ####[facility] [address] [place], [address] Absolute Neut Normal 2.0-7.7 [facility] Comment on above: Result Comment: Canc elled via OM: Order cancelled - Patient discharged Performed By: #### L 100.0100 ####[facility] [address] [place], [address] HCT Normal 40-54 [facility] Comment on above: Result Comment: Canc elled via OM: Order cancelled - Patient discharged Performed By: #### L 100.0100 ####[facility] [address] [place], [address] HGB Normal 13.0-16.5 [facility] Comment on above: Result Comment: Canc elled via OM: Order cancelled - Patient discharged Performed By: #### L 100.0100 ####[facility] [address] [place], [address] MCH Normal 27.0-32.0 [facility] Comment on above: Result Comment: Canc elled via OM: Order cancelled - Patient discharged Performed By: #### L 100.0100 ####[facility] [address] [place], [address] MCHC Normal 32-36 [facility] Comment on above: Result Comment: Canc elled via OM: Order cancelled - Patient discharged Performed By: #### L 100.0100 ####[facility] [address] [place], [address] MCV Normal 80-94 [facility] Comment on above: Result Comment: Canc elled via OM: Order cancelled - Patient discharged Performed By: #### L 100.0100 ####[facility] [address] [place], [address] NEUT% Normal 47-70 [facility] Comment on above: Result Comment: Canc elled via OM: Order cancelled - Patient discharged Performed By: #### L 100.0100 ####[facility] [address] [place], [address] PLT Normal 150-450 [facility] Comment on above: Result Comment: Canc elled via OM: Order cancelled - Patient discharged Performed By: #### L 100.0100 ####[facility] [address] [place], [address] RBC Normal 4.6-6.2 [facility] Comment on above: Result Comment: Canc elled via OM: Order cancelled - Patient discharged Performed By: #### L 100.0100 ####[facility] [address] [place], [address] RDW CV Normal 11.6-14.6 [facility] Comment on above: Result Comment: Canc elled via OM: Order cancelled - Patient discharged Performed By: #### L 100.0100 ####[facility] [address] [place], [address] RDW SD Normal 35.1-43.9 [facility] Comment on above: Result Comment: Canc elled via OM: Order cancelled - Patient discharged Performed By: #### L 100.0100 ####[facility] [address] [place], [address] WBC Normal 4.4-11.0 [facility] Comment on above: Result Comment: Canc elled via OM: Order cancelled - Patient discharged Performed By: #### L 100.0100 ####[facility] [address] [place], [address] Absolute lymphocyte countOrd ered By: Dev Reardon on 08-04-2025 Lymphocytes Auto (Unsp spec) [#/Vol] 1.71 10*3/uL 0.83-4.51 [facility] Anion gap in Serum or Plasma Ordered By: Dev Reardon on 08-04-2025 Anion gap [Moles/Vol] 15 mmol/L 5-15 [facility] BUN/creatinine ratioOrdered By: Dev Reardon on 08-04-2025 Urea nitrogen/Creatinine [Mass ratio] 6.9 mg/mg Low - [facility] Basic Metabolic Profile (BMP )on 08-04-2025 BUN/CRE 6.9 RATIO Low 08-02 [facility] Comment on above: Performed By: #### L 500.2500, L501.2300 ####[facility] [address] [place], [address] Calcium [Mass/Vol] 7.7 mg/dL Normal 7.6-11.0 [facility] Comment on above: Performed By: #### L 500.2500, L501.2300 ####[facility] [address] [place], [address] Chloride [Moles/Vol] 103 mmol/L Normal 98-108 [facility] Comment on above: Performed By: #### L 500.2500, L501.2300 ####[facility] [address] [place], [address] CO2 [Moles/Vol] 22.8 mmol/L Normal 21.0-32.0 [facility] Comment on above: Performed By: #### L 500.2500, L501.2300 ####[facility] [address] [place], [address] GAP 15 Normal 5-15 [facility] Comment on above: Performed By: #### L 500.2500, L501.2300 ####[facility] [address] [place], [address] GFR/1.73 sq M.predicted among non-blacks MDRD (S/P/Bld) [Vol rate/Area] 73 mL/min/{1.73_m2} Normal >60 [facility] Comment on above: Result Comment: mL/m in/1.73m2 CKD-EPI Creatinine Equation (2020) Performed By: #### L 500.2500, L501.2300 ####[facility] [address] [place], [address] Potassium [Moles/Vol] 3.0 mmol/L Low 3.3-5.1 [facility] Comment on above: Performed By: #### L 500.2500, L501.2300 ####[facility] [address] [place], [address] Sodium [Moles/Vol] 141 mmol/L Normal 133-145 [facility] Comment on above: Performed By: #### L 500.2500, L501.2300 ####[facility] [address] [place], [address] Creatinine [Mass/Vol] 1.03 mg/dL Normal 0.70-1.20 [facility] Comment on above: Performed By: #### L 500.2500, L501.2300 ####[facility] [address] [place], [address] ECRCL 54.42 ml/min Normal 50-250 [facility] Comment on above: Performed By: #### L 500.2500, L501.2300 ####[facility] [address] [place], [address] Glucose [Mass/Vol] 107 mg/dL High 70-99 [facility] Comment on above: Performed By: #### L 500.2500, L501.2300 ####[facility] [address] [place], [address] Urea nitrogen [Mass/Vol] 7 mg/dL Normal 4-19 [facility] Comment on above: Performed By: #### L 500.2500, L501.2300 ####[facility] [address] [place], [address] Blood band neutrophil count as percentage of total leukocytesOrdered By: Dev Reardon on 08-04-2025 Band form neutrophils/100 WBC (Bld) 18 % High 0-5 [facility] Blood basophils/100 leukocyt esOrdered By: Dev Reardon on 08-04-2025 Basophils/100 WBC (Bld) 1 % 0-1 [facility] Blood lymphocytes/100 leukoc ytesOrdered By: Dev Reardon on 08-04-2025 Lymphocytes/100 WBC (Bld) 11 % Low 19-41 [facility] Blood monocytes/100 leukocyt esOrdered By: Dev Reardon on 08-04-2025 Monocytes/100 WBC (Bld) 10 % 0-10 [facility] Blood segmented neutrophils/ 100 leukocytesOrdered By: Dev Reardon on 08-04-2025 Segmented neutrophils/100 WBC (Bld) 59 % 47-70 [facility] Carbon dioxide, total [Moles /volume] in Central venous bloodOrdered By: Dev Reardon on 08-04-2025 CO2 [Moles/Vol] 22.8 mmol/L 21.0-32.0 [facility] Chloride assayOrdered By: Negro Reardon on 08-04-2025 Chloride [Moles/Vol] 103 mmol/L 98-108 [facility] Discharge Instructionon 07-[address] [facility] Dohle bodies detectionOrdere d By: Dev Reardon on 08-04-2025 Dohle body LM Ql (Bld) 2+ Wo [facility] Erythrocyte distribution wid th ratioOrdered By: Dev Reardon on 08-04-2025 Erythrocyte distribution width (RBC) [Ratio] 14.1 % 11.6-14.6 [facility] Erythrocyte distribution wid th standard deviationOrdered By: Dev Reardon on 08-04-2025 Erythrocyte distribution width (RBC) [Ratio] 43.8 fl 35.1-43.9 [facility] Erythrocyte morphology asses smentOrdered By: Dev Reardon on 08-04-2025 RBC morphology finding Nom (Bld) NORM C+C NORMAL NORM C&C [facility] Glomerular filtration rate ( GFR) estimation/1.73 sq m using serum, plasma, or whole bOrdered By: Dev Reardon on 08-04-2025 GFR/1.73 sq M.predicted among non-blacks MDRD (S/P/Bld) [Vol rate/Area] 73 mL/min/{1.73_m2} >60 [facility] Hematocrit Auto (Bld) [Volum e fraction]Ordered By: Dev Reardon on 08-04-2025 Hematocrit (Bld) [Volume fraction] 28.9 % Low 40-54 [facility] Hemoglobin measurementOrdere d By: Dev Reardon on 08-04-2025 Hemoglobin (Bld) [Mass/Vol] 9.9 g/dL Low 13.0-16.5 [facility] MCV (mean corpuscular volume ) determinationOrdered By: Dev Reardon on 08-04-2025 MCV (RBC) [Entitic vol] 87.3 fL 80-94 [facility] Mean corpuscular hemoglobin (MCH) determinationOrdered By: Dev Reardon on 08-04-2025 MCH (RBC) [Entitic mass] 29.9 pg 27.0-32.0 [facility] Phosphoruson 10-22-2025 Phosphate [Mass/Vol] 3.9 mg/dL Normal 2.7-4.5 [facility] Comment on above: Performed By: #### L 500.2500, L501.2300 ####[facility] [address] [place], [address] Platelet countOrdered By: Negro Reardon on 08-04-2025 Platelets (Bld) [#/Vol] 159 10*3/uL 150-450 [facility] Platelet estimateOrdered By: Dev Reardon on 08-04-2025 Platelets LM Ql (Bld) ADEQUATE ADEQ [facility] Potassium measurement (mass/ volume)Ordered By: Dev Reardon on 08-04-2025 Potassium (Unsp spec) [Mass/Vol] 3.0 mmol/L Low 3.3-5.1 [facility] RBC Auto (Bld) [#/Vol]Ordere d By: Dev Reardon on 08-04-2025 RBC (Bld) [#/Vol] 3.31 10*6/uL Low 4.6-6.2 [facility] Radiation Oncology Visiton 1 Radiation Oncology Visit Normal [facility] Review by pathologistOrdered By: Dev Reardon on 08-04-2025 Pathologist review Bill (Unsp spec) [Interp] Reviewed [facility] Serum creatinine measurement (mass/volume)Ordered By: Dev Reardon on 08-04-2025 Creatinine [Mass/Vol] 1.03 mg/dL 0.70-1.20 [facility] Serum glucose measurement (m ass/volume)Ordered By: Dev Reardon on 08-04-2025 Glucose [Mass/Vol] 107 mg/dL High 70-99 [facility] Serum or plasma calcium shanita urement (mass/volume)Ordered By: Dev Reardon on 08-04-2025 Calcium [Mass/Vol] 7.7 mg/dL 7.6-11.0 [facility] Serum or plasma urea nitroge n measurement (mass/volume)Ordered By: Dev Reardon on 08-04-2025 Urea nitrogen [Mass/Vol] 7 mg/dL 4-19 [facility] Sodium levelOrdered By: Umer Reardon on 08-04-2025 Sodium [Moles/Vol] 141 mmol/L 133-145 [facility] Total cell countOrdered By: Dev Reardon on 08-04-2025 Cells counted Molgen (Bld/Tiss) [#] [address] [facility] Toxic leukocyte granulation detectionOrdered By: Dev Reardon on 08-04-2025 Toxic granules LM Ql (Bld) 2+ [facility] White blood cell (WBC) count Ordered By: Dev Reardon on 08-04-2025 WBC (Bld) [#/Vol] 15.5 10*3/uL High 4.4-11.0 [facility] Bilirubin, totalOrdered By: Dev Reardon on 08-03-2025 Bilirubin [Mass/Vol] 0.53 mg/dL 0.00-1.30 [facility] Blood metamyelocytes/100 elena kocytesOrdered By: Dev Reardon on 08-03-2025 Metamyelocytes/100 WBC (Bld) 2 % High 0-1 [facility] CBC W/Diff, Automatedon 07-15 Absolute Lymph 1.19 X10 3/uL Normal 0.83-4.51 [facility] Comment on above: Performed By: #### L 100.0100, L500.4050 ####[facility] [address] [place], [address] Absolute Neut 4.6 X10 3/uL Normal 2.0-7.7 [facility] Comment on above: Performed By: #### L 100.0100, L500.4050 ####[facility] [address] [place], [address] Comprehensive Metabolic Prof ilon 08-03-2025 Albumin [Mass/Vol] 3.0 g/dL Low 3.4-4.8 [facility] Comment on above: Performed By: #### L 100.0100, L500.4050 ####[facility] [address] [place], [address] Albumin/Globulin [Mass ratio] 1.3 {ratio} Normal 0.9-2.4 [facility] Comment on above: Performed By: #### L 100.0100, L500.4050 ####[facility] [address] [place], [address] ALK PHOS 60 U/L Normal 40-129 [facility] Comment on above: Performed By: #### L 100.0100, L500.4050 ####[facility] [address] [place], [address] ALT [Catalytic activity/Vol] 15 U/L Normal <=46 [facility] Comment on above: Performed By: #### L 100.0100, L500.4050 ####[facility] [address] [place], [address] AST [Catalytic activity/Vol] 28 U/L Normal <=37 [facility] Comment on above: Performed By: #### L 100.0100, L500.4050 ####[facility] [address] [place], [address] Bilirubin [Mass/Vol] 0.53 mg/dL Normal 0.00-1.30 [facility] Comment on above: Performed By: #### L 100.0100, L500.4050 ####[facility] [address] [place], [address] BUN/CRE 9.1 RATIO Low 10-20 [facility] Comment on above: Performed By: #### L 100.0100, L500.4050 ####[facility] [address] [place], [address] Calcium [Mass/Vol] 7.7 mg/dL Normal 7.6-11.0 [facility] Comment on above: Performed By: #### L 100.0100, L500.4050 ####[facility] [address] [place], [address] Chloride [Moles/Vol] 101 mmol/L Normal 98-108 [facility] Comment on above: Performed By: #### L 100.0100, L500.4050 ####[facility] [address] [place], [address] CO2 [Moles/Vol] 24.4 mmol/L Normal 21.0-32.0 [facility] Comment on above: Performed By: #### L 100.0100, L500.4050 ####[facility] [address] [place], [address] Creatinine [Mass/Vol] 1.03 mg/dL Normal 0.70-1.20 [facility] Comment on above: Performed By: #### L 100.0100, L500.4050 ####[facility] [address] [place], [address] ECRCL 54.42 ml/min Normal 50-250 [facility] Comment on above: Performed By: #### L 100.0100, L500.4050 ####[facility] [address] [place], [address] GAP 12 Normal 5-15 [facility] Comment on above: Performed By: #### L 100.0100, L500.4050 ####[facility] [address] [place], [address] GFR/1.73 sq M.predicted among non-blacks MDRD (S/P/Bld) [Vol rate/Area] 73 mL/min/{1.73_m2} Normal >60 [facility] Comment on above: Result Comment: mL/m in/1.73m2 CKD-EPI Creatinine Equation (2020) Performed By: #### L 100.0100, L500.4050 ####[facility] [address] [place], [address] Globulin (S) [Mass/Vol] 2.3 g/dL Normal 2.2-4.2 [facility] Comment on above: Performed By: #### L 100.0100, L500.4050 ####[facility] [address] [place], [address] Glucose [Mass/Vol] 101 mg/dL High 70-99 [facility] Comment on above: Performed By: #### L 100.0100, L500.4050 ####[facility] [address] [place], [address] Potassium [Moles/Vol] 2.7 mmol/L Invalid Interpretation Code 3.3-5.1 [facility] Comment on above: Result Comment: Crit ical Result(s) Called at 1348: by: DAVIDE WEIR. ??Results read back by same. Performed By: #### L 100.0100, L500.4050 ####[facility] [address] [place], [address] Sodium [Moles/Vol] 137 mmol/L Normal 133-145 [facility] Comment on above: Performed By: #### L 100.0100, L500.4050 ####[facility] [address] [place], [address] T PROT 5.4 g/dL Low 5.9-8.4 [facility] Comment on above: Performed By: #### L 100.0100, L500.4050 ####[facility] [address] [place], [address] Urea nitrogen [Mass/Vol] 9 mg/dL Normal 4-19 [facility] Comment on above: Performed By: #### L 100.0100, L500.4050 ####[facility] [address] [place], [address] Modified Barium Swallow Stud yon 08-03-2025 Modified Barium Swallow Study Normal [facility] No Panel InformationOrdered By: Dev Reardon on 08-03-2025 28 U/L <38 [facility] Serum globulin measurementOr dered By: Dev Reardon on 08-03-2025 Globulin (S) [Mass/Vol] 2.3 g/dL 2.2-4.2 [facility] Serum or plasma alanine macias otransferase (ALT) measurementOrdered By: Dev Reardon on 08-03-2025 ALT [Catalytic activity/Vol] 15 U/L <47 [facility] Serum or plasma albumin shanita urement (mass/volume)Ordered By: Dev Reardon on 08-03-2025 Albumin [Mass/Vol] 3.0 g/dL Low 3.4-4.8 [facility] Serum or plasma albumin/glob ulin mass ratioOrdered By: Dev Reardon on 08-03-2025 Albumin/Globulin [Mass ratio] 1.3 {ratio} 0.9-2.4 [facility] Serum or plasma alkaline tobin sphatase measurementOrdered By: eDv Reardon on 08-03-2025 ALP [Catalytic activity/Vol] 60 U/L 40-129 [facility] Total proteinOrdered By: Kilo Reardon on 08-03-2025 Protein [Mass/Vol] 5.4 g/dL Low 5.9-8.4 [facility] Automated lymphocyte count a s percentage of total leukocytesOrdered By: Dev Reardon on 08-02-2025 Lymphocytes/100 WBC Auto (Unsp spec) 18.7 % Low 19-41 [facility] Basophil percentageOrdered B y: Dev Reardon on 08-02-2025 Basophils/100 WBC (Bld) 2.6 % High 0-1 [facility] Blood manual differential co mment interpretation (narrative result)Ordered By: Dev Reardon on 08-02-2025 Manual differential comment Bill (Bld) [Interp] SCANNED [facility] CBC W/Diff, Automatedon 07-15 PATH REV N/A Normal [facility] Comment on above: Result Comment: AMENDED REPORT 08/02/25 7350 PATH REV previously reported as: February Performed By: #### L 503.0106, L506.0200, L501.3620, L100.0100, L500.4050 ####[facility] [address] [place], [address] PATH RE[address] Reviewed Normal [facility] Comment on above: Result Comment: LEUK OPENIA WITH NEUTROPENIA AND ABSOLUTE LYMPHOPENIA TOXICGRANULATION NOTED. THE MANUAL DIFFERENTIAL COUNT CONFIRMS TOAUTOMATED DIFFERENTIAL.NORMOCYTIC NORMOCHROMIC ANEMIA WITH RARE ACANTHOCYTES NOTED.THROMBOCYTOPENIA, ADEQUATE FOR HEMOSTASIS.Ginette Jacobs MD 08/02/2025 AMENDED REPORT 08/02/25 5079 PATH REV previously reported as: February Performed By: #### L 300.3900, L100.0100, L500.4050, L300.4310, L503.6005, M200.1000 ####[facility] [address] [place], [address] SMEAR COMMENT SCANNED Normal [facility] Comment on above: Result Comment: LYMP HOPENIA NOTED Performed By: #### L 500.4050, L100.0100 ####[facility] [address] [place], [address] Absolute Neut Normal 2.0-7.7 [facility] Comment on above: Result Comment: NO S PECIMEN COLLECTED Performed By: #### L 100.0100, L500.4050 ####[facility] [address] [place], [address] HCT Normal 40-54 [facility] Comment on above: Result Comment: NO S PECIMEN COLLECTED Performed By: #### L 100.0100, L500.4050 ####[facility] [address] [place], [address] HGB Normal 13.0-16.5 [facility] Comment on above: Result Comment: NO S PECIMEN COLLECTED Performed By: #### L 100.0100, L500.4050 ####[facility] [address] [place], [address] MCH Normal 27.0-32.0 [facility] Comment on above: Result Comment: NO S PECIMEN COLLECTED Performed By: #### L 100.0100, L500.4050 ####[facility] [address] [place], [address] MCHC Normal 32-36 [facility] Comment on above: Result Comment: NO S PECIMEN COLLECTED Performed By: #### L 100.0100, L500.4050 ####[facility] [address] [place], [address] MCV Normal 80-94 [facility] Comment on above: Result Comment: NO S PECIMEN COLLECTED Performed By: #### L 100.0100, L500.4050 ####[facility] [address] [place], [address] NEUT% Normal 47-70 [facility] Comment on above: Result Comment: NO S PECIMEN COLLECTED Performed By: #### L 100.0100, L500.4050 ####[facility] [address] [place], [address] PLT Normal 150-450 [facility] Comment on above: Result Comment: NO S PECIMEN COLLECTED Performed By: #### L 100.0100, L500.4050 ####[facility] [address] [place], [address] RBC Normal 4.6-6.2 [facility] Comment on above: Result Comment: NO S PECIMEN COLLECTED Performed By: #### L 100.0100, L500.4050 ####[facility] [address] [place], [address] RDW CV Normal 11.6-14.6 [facility] Comment on above: Result Comment: NO S PECIMEN COLLECTED Performed By: #### L 100.0100, L500.4050 ####[facility] [address] [place], [address] RDW SD Normal 35.1-43.9 [facility] Comment on above: Result Comment: NO S PECIMEN COLLECTED Performed By: #### L 100.0100, L500.4050 ####[facility] [address] [place], [address] WBC Normal 4.4-11.0 [facility] Comment on above: Result Comment: NO S PECIMEN COLLECTED Performed By: #### L 100.0100, L500.4050 ####[facility] [address] [place], [address] Comprehensive Metabolic Prof maon 08-02-2025 Albumin [Mass/Vol] 2.6 g/dL Low 3.4-4.8 [facility] Comment on above: Performed By: #### L 500.4050, L100.0100 ####[facility] [address] [place], [address] Albumin/Globulin [Mass ratio] 1.2 {ratio} Normal 0.9-2.4 [facility] Comment on above: Performed By: #### L 500.4050, L100.0100 ####[facility] [address] [place], [address] ALK PHOS 47 U/L Normal 40-129 [facility] Comment on above: Performed By: #### L 500.4050, L100.0100 ####[facility] [address] [place], [address] ALT [Catalytic activity/Vol] 6 U/L Normal <=46 [facility] Comment on above: Performed By: #### L 500.4050, L100.0100 ####[facility] [address] [place], [address] AST [Catalytic activity/Vol] 16 U/L Normal <=37 [facility] Comment on above: Performed By: #### L 500.4050, L100.0100 ####[facility] [address] [place], [address] Bilirubin [Mass/Vol] 0.48 mg/dL Normal 0.00-1.30 [facility] Comment on above: Performed By: #### L 500.4050, L100.0100 ####[facility] [address] [place], [address] BUN/CRE 15.9 RATIO Normal 10-20 [facility] Comment on above: Performed By: #### L 500.4050, L100.0100 ####[facility] [address] [place], [address] Calcium [Mass/Vol] 7.3 mg/dL Low 7.6-11.0 [facility] Comment on above: Performed By: #### L 500.4050, L100.0100 ####[facility] [address] [place], [address] Chloride [Moles/Vol] 103 mmol/L Normal 98-108 [facility] Comment on above: Performed By: #### L 500.4050, L100.0100 ####[facility] [address] [place], [address] CO2 [Moles/Vol] 24.6 mmol/L Normal 21.0-32.0 [facility] Comment on above: Performed By: #### L 500.4050, L100.0100 ####[facility] [address] [place], [address] Creatinine [Mass/Vol] 0.80 mg/dL Normal 0.70-1.20 [facility] Comment on above: Performed By: #### L 500.4050, L100.0100 ####[facility] [address] [place], [address] ECRCL 70.06 ml/min Normal 50-250 [facility] Comment on above: Performed By: #### L 500.4050, L100.0100 ####[facility] [address] [place], [address] GAP 8 Normal 5-15 [facility] Comment on above: Performed By: #### L 500.4050, L100.0100 ####[facility] [address] [place], [address] GFR/1.73 sq M.predicted among non-blacks MDRD (S/P/Bld) [Vol rate/Area] 89 mL/min/{1.73_m2} Normal >60 [facility] Comment on above: Result Comment: mL/m in/1.73m2 CKD-EPI Creatinine Equation (2020) Performed By: #### L 500.4050, L100.0100 ####[facility] [address] [place], [address] Globulin (S) [Mass/Vol] 2.1 g/dL Low 2.2-4.2 [facility] Comment on above: Performed By: #### L 500.4050, L100.0100 ####[facility] [address] [place], [address] Glucose [Mass/Vol] 111 mg/dL High 70-99 [facility] Comment on above: Performed By: #### L 500.4050, L100.0100 ####[facility] [address] [place], [address] Potassium [Moles/Vol] 2.9 mmol/L Low 3.3-5.1 [facility] Comment on above: Performed By: #### L 500.4050, L100.0100 ####[facility] [address] [place], [address] Sodium [Moles/Vol] 136 mmol/L Normal 133-145 [facility] Comment on above: Performed By: #### L 500.4050, L100.0100 ####[facility] [address] [place], [address] T PROT 4.7 g/dL Low 5.9-8.4 [facility] Comment on above: Performed By: #### L 500.4050, L100.0100 ####[facility] [address] [place], [address] Urea nitrogen [Mass/Vol] 13 mg/dL Normal 4-19 [facility] Comment on above: Performed By: #### L 500.4050, L100.0100 ####[facility] [address] [place], [address] ALB Normal 3.4-4.8 [facility] Comment on above: Result Comment: NO S PECIMEN COLLECTED Performed By: #### L 100.0100, L500.4050 ####[facility] [address] [place], [address] ALK PHOS Normal 40-129 [facility] Comment on above: Result Comment: NO S PECIMEN COLLECTED Performed By: #### L 100.0100, L500.4050 ####[facility] [address] [place], [address] ALT Normal <=46 [facility] Comment on above: Result Comment: NO S PECIMEN COLLECTED Performed By: #### L 100.0100, L500.4050 ####[facility] [address] [place], [address] AST Normal <=37 [facility] Comment on above: Result Comment: NO S PECIMEN COLLECTED Performed By: #### L 100.0100, L500.4050 ####[facility] [address] [place], [address] BUN Normal 4-19 [facility] Comment on above: Result Comment: NO S PECIMEN COLLECTED Performed By: #### L 100.0100, L500.4050 ####[facility] [address] [place], [address] BUN/CRE Normal 10-20 [facility] Comment on above: Result Comment: NO S PECIMEN COLLECTED Performed By: #### L 100.0100, L500.4050 ####[facility] [address] [place], [address] Calcium Normal 7.6-11.0 [facility] Comment on above: Result Comment: NO S PECIMEN COLLECTED Performed By: #### L 100.0100, L500.4050 ####[facility] [address] [place], [address] CL Normal 98-108 [facility] Comment on above: Result Comment: NO S PECIMEN COLLECTED Performed By: #### L 100.0100, L500.4050 ####[facility] [address] [place], [address] CO2 Normal 21.0-32.0 [facility] Comment on above: Result Comment: NO S PECIMEN COLLECTED Performed By: #### L 100.0100, L500.4050 ####[facility] [address] [place], [address] CREAT,SERUM Normal 0.70-1.20 [facility] Comment on above: Result Comment: NO S PECIMEN COLLECTED Performed By: #### L 100.0100, L500.4050 ####[facility] [address] [place], [address] eGFR Normal >60 [facility] Comment on above: Result Comment: NO S PECIMEN COLLECTED Performed By: #### L 100.0100, L500.4050 ####[facility] [address] [place], [address] GAP Normal 5-15 [facility] Comment on above: Result Comment: NO S PECIMEN COLLECTED Performed By: #### L 100.0100, L500.4050 ####[facility] [address] [place], [address] GLU Normal 70-99 [facility] Comment on above: Result Comment: NO S PECIMEN COLLECTED Performed By: #### L 100.0100, L500.4050 ####[facility] [address] [place], [address] Potassium Normal 3.3-5.1 [facility] Comment on above: Result Comment: NO S PECIMEN COLLECTED Performed By: #### L 100.0100, L500.4050 ####[facility] [address] [place], [address] T BILI Normal 0.00-1.30 [facility] Comment on above: Result Comment: NO S PECIMEN COLLECTED Performed By: #### L 100.0100, L500.4050 ####[facility] [address] [place], [address] T PROT Normal 5.9-8.4 [facility] Comment on above: Result Comment: NO S PECIMEN COLLECTED Performed By: #### L 100.0100, L500.4050 ####[facility] [address] [place], [address] Comprehensive Metabolic Profil Normal 133-145 [facility] Comment on above: Result Comment: NO S PECIMEN COLLECTED Performed By: #### L 100.0100, L500.4050 ####[facility] [address] [place], [address] Consultation - Infectious Dx on 08-02-2025 Consultation - Infectious Dx Normal [facility] Consultation - Oncology IPon 08-02-2025 Consultation - Oncology IP Normal [facility] Culture, Blood (WB)on 2024 CUB Blood cultures x2, f rom two different sites No growth in [address] [facility] Comment on above: Performed By: #### L 300.3900, L100.0100, L500.4050, L300.4310, L503.6005, M200.1000 ####[facility] [address] [place], [address] Electrocardiogram reportOrde red By: Kiran Sarkar on 08-02-[address] [facility] Other Phone: [phone] [facility] Other Phone: [phone] Eosinophil percentageOrdered By: Dev Reardon on 08-02-2025 Eosinophils/100 WBC (Bld) 1.7 % 0-5 [facility] Immature granulocytes/100 WB C Auto (Bld)Ordered By: Dev Reardon on 08-02-2025 Immature granulocytes/100 WBC (Bld) 1.300 % High 0.0-0.9 [facility] M8200.1000on 08-02-[address] [facility] Comment on above: Performed By: #### M 8200.1000 ####[facility] [address] [place], [place], [address] Monocyte percentageOrdered B y: Dev Reardon on 08-02-2025 Monocytes/100 WBC (Bld) 19.6 % High 0-10 [facility] Nasal methicillin resistant Staphylococcus aureus (MRSA) DNA detection by PCROrdered By: Dev Reardon on 08-02-2025 MRSA DNA DEMIAN+probe Ql (Nose) [facility] MRSA DNA DEMIAN+probe Ql (Nose) [facility] Trough vancomycin levelOrder ed By: Dev Reardon on 08-02-2025 Vancomycin trough [Mass/Vol] 14.3 ug/mL 5.0-15.0 [facility] Vancomycin, Trough Levelon 1 VANCO, TROUGH 14.3 ug/mL Normal 5.0-15.0 [facility] Comment on above: Order Comment: Comme nts: Trough to be drawn 30 mins prior to scheduled [id number] Result Comment: Pepe mmended goal trough ranges are generally 10-15 mcg/mlfor less severe/complicated infections such as cellulitisor UTI and 15-20 mcg/ml for more severe/complicatedinfections such as bacteremia/sepsis, osteomyelitis,pneumonia or meningitis. Goal trough ranges should takeinto account indication, patient-specific factors andorganism DUSTY.VANCOMYCIN STANDARED DRUG THERAPY TROUGH LEVEL: 5.0 - 15.0 mg/LVANCOMYCIN HIGH INTENSITY THERAPY TROUGH LEVEL: 15.0 - 20.0 mg/LHigh Intensity therapy recommended for serious lifethreatening infections include:- Voaodeowjw-Mwqmwvbzqmvc-Kifcoewrg (Ventilator/Healtcare Associated)-SepsisPLEASE CONTACT PHARMACY SERVICES (#7138) FOR INTERPRETATIONOF RESULTS. Performed By: #### L 501.8820 ####[facility] [address] [place], [address] Basic Metabolic Profile (BMP )on 08-01-2025 BUN/CRE 14.7 RATIO Normal 08-02 [facility] Comment on above: Performed By: #### L 501.2300, L501.5200, L500.2500 ####[facility] [address] [place], [address] Calcium [Mass/Vol] 7.8 mg/dL Normal 7.6-11.0 [facility] Comment on above: Performed By: #### L 501.2300, L501.5200, L500.2500 ####[facility] [address] [place], [address] Chloride [Moles/Vol] 102 mmol/L Normal 98-108 [facility] Comment on above: Performed By: #### L 501.2300, L501.5200, L500.2500 ####[facility] [address] [place], [address] CO2 [Moles/Vol] 22.7 mmol/L Normal 21.0-32.0 [facility] Comment on above: Performed By: #### L 501.2300, L501.5200, L500.2500 ####[facility] [address] [place], [address] Creatinine [Mass/Vol] 0.75 mg/dL Normal 0.70-1.20 [facility] Comment on above: Performed By: #### L 501.2300, L501.5200, L500.2500 ####[facility] [address] [place], [address] ECRCL 70.06 ml/min Normal 50-250 [facility] Comment on above: Performed By: #### L 501.2300, L501.5200, L500.2500 ####[facility] [address] [place], [address] GAP 10 Normal 5-15 [facility] Comment on above: Performed By: #### L 501.2300, L501.5200, L500.2500 ####[facility] [address] [place], [address] GFR/1.73 sq M.predicted among non-blacks MDRD (S/P/Bld) [Vol rate/Area] 91 mL/min/{1.73_m2} Normal >60 [facility] Comment on above: Result Comment: mL/m in/1.73m2 CKD-EPI Creatinine Equation (2020) Performed By: #### L 501.2300, L501.5200, L500.2500 ####[facility] [address] [place], [address] Glucose [Mass/Vol] 100 mg/dL High 70-99 [facility] Comment on above: Performed By: #### L 501.2300, L501.5200, L500.2500 ####[facility] [address] [place], [address] Potassium [Moles/Vol] 3.2 mmol/L Low 3.3-5.1 [facility] Comment on above: Performed By: #### L 501.2300, L501.5200, L500.2500 ####[facility] [address] [place], [address] Sodium [Moles/Vol] 135 mmol/L Normal 133-145 [facility] Comment on above: Performed By: #### L 501.2300, L501.5200, L500.2500 ####[facility] [address] [place], [address] Urea nitrogen [Mass/Vol] 11 mg/dL Normal 4-19 [facility] Comment on above: Performed By: #### L 501.2300, L501.5200, L500.2500 ####[facility] [address] [place], [address] Blood eosinophils/100 leukoc ytesOrdered By: Dev Reardon on 08-01-2025 Eosinophils/100 WBC (Bld) 3 % 0-5 [facility] CPK Total, Creatine Kinaseon 08-01-2025 CPK TOTAL 51 U/L Normal 24-195 [facility] Comment on above: Performed By: #### L 503.0106, L506.0200, L501.3620, L100.0100, L500.4050 ####[facility] [address] [place], [address] Comprehensive Metabolic Prof ilon 08-01-2025 Albumin [Mass/Vol] 2.6 g/dL Low 3.4-4.8 [facility] Comment on above: Performed By: #### L 503.0106, L506.0200, L501.3620, L100.0100, L500.4050 ####[facility] [address] [place], [address] Albumin/Globulin [Mass ratio] 1.2 {ratio} Normal 0.9-2.4 [facility] Comment on above: Performed By: #### L 503.0106, L506.0200, L501.3620, L100.0100, L500.4050 ####[facility] [address] [place], [address] ALK PHOS 47 U/L Normal 40-129 [facility] Comment on above: Performed By: #### L 503.0106, L506.0200, L501.3620, L100.0100, L500.4050 ####[facility] [address] [place], [address] ALT [Catalytic activity/Vol] U/L Normal <=46 [facility] Comment on above: Performed By: #### L 503.0106, L506.0200, L501.3620, L100.0100, L500.4050 ####[facility] [address] [place], [address] AST [Catalytic activity/Vol] 17 U/L Normal <=37 [facility] Comment on above: Performed By: #### L 503.0106, L506.0200, L501.3620, L100.0100, L500.4050 ####[facility] [address] [place], [address] Bilirubin [Mass/Vol] 0.55 mg/dL Normal 0.00-1.30 [facility] Comment on above: Performed By: #### L 503.0106, L506.0200, L501.3620, L100.0100, L500.4050 ####[facility] [address] [place], [address] BUN/CRE 16.7 RATIO Normal 10-20 [facility] Comment on above: Performed By: #### L 503.0106, L506.0200, L501.3620, L100.0100, L500.4050 ####[facility] [address] [place], [address] Calcium [Mass/Vol] 7.7 mg/dL Normal 7.6-11.0 [facility] Comment on above: Performed By: #### L 503.0106, L506.0200, L501.3620, L100.0100, L500.4050 ####[facility] [address] [place], [address] Chloride [Moles/Vol] 101 mmol/L Normal 98-108 [facility] Comment on above: Performed By: #### L 503.0106, L506.0200, L501.3620, L100.0100, L500.4050 ####[facility] [address] [place], [address] CO2 [Moles/Vol] 23.7 mmol/L Normal 21.0-32.0 [facility] Comment on above: Performed By: #### L 503.0106, L506.0200, L501.3620, L100.0100, L500.4050 ####[facility] [address] [place], [address] Creatinine [Mass/Vol] 0.72 mg/dL Normal 0.70-1.20 [facility] Comment on above: Performed By: #### L 503.0106, L506.0200, L501.3620, L100.0100, L500.4050 ####[facility] [address] [place], [address] ECRCL 70.06 ml/min Normal 50-250 [facility] Comment on above: Performed By: #### L 503.0106, L506.0200, L501.3620, L100.0100, L500.4050 ####[facility] [address] [place], [address] GAP 10 Normal 5-15 [facility] Comment on above: Performed By: #### L 503.0106, L506.0200, L501.3620, L100.0100, L500.4050 ####[facility] [address] [place], [address] GFR/1.73 sq M.predicted among non-blacks MDRD (S/P/Bld) [Vol rate/Area] 92 mL/min/{1.73_m2} Normal >60 [facility] Comment on above: Result Comment: mL/m in/1.73m2 CKD-EPI Creatinine Equation (2020) Performed By: #### L 503.0106, L506.0200, L501.3620, L100.0100, L500.4050 ####[facility] [address] [place], [address] Globulin (S) [Mass/Vol] 2.1 g/dL Low 2.2-4.2 [facility] Comment on above: Performed By: #### L 503.0106, L506.0200, L501.3620, L100.0100, L500.4050 ####[facility] [address] [place], [address] Glucose [Mass/Vol] 106 mg/dL High 70-99 [facility] Comment on above: Performed By: #### L 503.0106, L506.0200, L501.3620, L100.0100, L500.4050 ####[facility] [address] [place], [address] Potassium [Moles/Vol] 2.6 mmol/L Invalid Interpretation Code 3.3-5.1 [facility] Comment on above: Result Comment: Crit ical Result(s) Called at 08/01/2025-05:12 by Curtis Natarajan??Results read back by same. Performed By: #### L 503.0106, L506.0200, L501.3620, L100.0100, L500.4050 ####[facility] [address] [place], [address] Sodium [Moles/Vol] 135 mmol/L Normal 133-145 [facility] Comment on above: Performed By: #### L 503.0106, L506.0200, L501.3620, L100.0100, L500.4050 ####[facility] [address] [place], [address] T PROT 4.8 g/dL Low 5.9-8.4 [facility] Comment on above: Performed By: #### L 503.0106, L506.0200, L501.3620, L100.0100, L500.4050 ####[facility] [address] [place], [address] Urea nitrogen [Mass/Vol] 12 mg/dL Normal 01-30 [facility] Comment on above: Performed By: #### L 503.0106, L506.0200, L501.3620, L100.0100, L500.4050 ####[facility] [address] [place], [address] Crenated erythrocyte detecti on by light microscopyOrdered By: Dev Reardon on 08-01-2025 Chema cells LM Ql (Bld) 1+ [facility] Folate [Moles/volume] in Ser um or PlasmaOrdered By: Dev Reardon on 08-01-2025 Folate [Moles/Vol] 7.55 ng/mL 4.60-34.80 [facility] Folates,Serum (Folic Acid)on 08-01-2025 FOLATES,SERUM 7.55 ng/mL Normal 4.60-34.80 [facility] Comment on above: Result Comment: Hemo lysis, Results will be affected, Requires Recollection. Performed By: #### L 503.0106, L506.0200, L501.3620, L100.0100, L500.4050 ####[facility] [address] [place], [address] Magnesiumon 08-01-2025 Magnesium [Mass/Vol] 1.7 mg/dL Normal 1.5-2.2 [facility] Comment on above: Performed By: #### L 501.2300, L501.5200, L500.2500 ####[facility] [address] [place], [place], [id number] Magnesium measurement (mass/ volume)Ordered By: Dev Reardon on 08-01-2025 Magnesium (Unsp spec) [Mass/Vol] 1.7 mg/dL 1.5-2.2 [facility] Phosphoruson 08-01-2025 Phosphate [Mass/Vol] 1.7 mg/dL Low 2.7-4.5 [facility] Comment on above: Performed By: #### L 501.2300, L501.5200, L500.2500 ####[facility] [address] [place], [address] Serum or plasma creatine kin ase activityOrdered By: Dev Reardon on 08-01-2025 CK [Catalytic activity/Vol] 51 U/L 24-195 [facility] Vancomycin, Trough Levelon 1 VANCO, TROUGH 9.0 ug/mL Normal 5.0-15.0 [facility] Comment on above: Order Comment: Comme nts: Trough to be drawn 30 mins prior to scheduled [id number] Result Comment: Pepe mmended goal trough ranges are generally 10-15 mcg/mlfor less severe/complicated infections such as cellulitisor UTI and 15-20 mcg/ml for more severe/complicatedinfections such as bacteremia/sepsis, osteomyelitis,pneumonia or meningitis. Goal trough ranges should takeinto account indication, patient-specific factors andorganism DUSTY.VANCOMYCIN STANDARED DRUG THERAPY TROUGH LEVEL: 5.0 - 15.0 mg/LVANCOMYCIN HIGH INTENSITY THERAPY TROUGH LEVEL: 15.0 - 20.0 mg/LHigh Intensity therapy recommended for serious lifethreatening infections include:- Kjqfdgzsmt-Xtvdatxzvzbe-Frrvswqph (Ventilator/Healtcare Associated)-SepsisPLEASE CONTACT PHARMACY SERVICES (#1062) FOR INTERPRETATIONOF RESULTS. Performed By: #### L 501.8820 ####[facility] [address] [place], [address] Vitamin B12on 08-01-2025 Cobalamin (Vitamin B12) [Mass/Vol] 587 pg/mL Normal 180-914 [facility] Comment on above: Performed By: #### L 503.0106, L506.0200, L501.3620, L100.0100, L500.4050 ####[facility] [address] [place], [address] Vitamin B12 ser/plasOrdered By: Dev Reardon on 08-01-2025 Cobalamin (Vitamin B12) [Mass/Vol] 587 pg/mL 180-914 [facility] Basic Metabolic Profile (BMP )on 07-31-2025 BUN/CRE 17.8 RATIO Normal 08-02 [facility] Comment on above: Performed By: #### L 100.0100, L500.2500 ####[facility] [address] [place], [address] Calcium [Mass/Vol] 6.9 mg/dL Low 7.6-11.0 [facility] Comment on above: Performed By: #### L 100.0100, L500.2500 ####[facility] [address] [place], [address] Chloride [Moles/Vol] 105 mmol/L Normal 98-108 [facility] Comment on above: Performed By: #### L 100.0100, L500.2500 ####[facility] [address] [place], [address] CO2 [Moles/Vol] 23.9 mmol/L Normal 21.0-32.0 [facility] Comment on above: Performed By: #### L 100.0100, L500.2500 ####[facility] [address] [place], [address] Creatinine [Mass/Vol] 0.70 mg/dL Normal 0.70-1.20 [facility] Comment on above: Performed By: #### L 100.0100, L500.2500 ####[facility] [address] [place], [address] ECRCL 70.06 ml/min Normal 50-250 [facility] Comment on above: Performed By: #### L 100.0100, L500.2500 ####[facility] [address] [place], [address] GAP 9 Normal 5-15 [facility] Comment on above: Performed By: #### L 100.0100, L500.2500 ####[facility] [address] [place], [address] GFR/1.73 sq M.predicted among non-blacks MDRD (S/P/Bld) [Vol rate/Area] 93 mL/min/{1.73_m2} Normal >60 [facility] Comment on above: Result Comment: mL/m in/1.73m2 CKD-EPI Creatinine Equation (2020) Performed By: #### L 100.0100, L500.2500 ####[facility] [address] [place], [address] Glucose [Mass/Vol] 110 mg/dL High 70-99 [facility] Comment on above: Performed By: #### L 100.0100, L500.2500 ####[facility] [address] [place], [address] Potassium [Moles/Vol] 3.0 mmol/L Low 3.3-5.1 [facility] Comment on above: Performed By: #### L 100.0100, L500.2500 ####[facility] [address] [place], [address] Sodium [Moles/Vol] 138 mmol/L Normal 133-145 [facility] Comment on above: Performed By: #### L 100.0100, L500.2500 ####[facility] [address] [place], [address] Urea nitrogen [Mass/Vol] 12 mg/dL Normal 4-19 [facility] Comment on above: Performed By: #### L 100.0100, L500.2500 ####[facility] [address] [place], [address] CBC W/Diff, Automatedon 07-14 CHEMA CELLS 1+ Normal [facility] Comment on above: Performed By: #### L 100.0100, L500.2500 ####[facility] [address] [place], [address] SMEAR COMMENT SCANNED Normal [facility] Comment on above: Result Comment: NEUT ROPENIA PRESENTLYMPHOPENIA PRESENTLEUKOCYTOPENIA PRESENTLEFT SHIFT: BANDS PRESENT 3+ Performed By: #### L 100.0100, L500.2500 ####[facility] [address] [place], [address] Consultation - Intensiviston 07-31-2025 Consultation - Mental Hygienist Normal [facility] RESPIRATORY PANEL MOLECULARo n 07-31-[address] [facility] Comment on above: Performed By: #### M 100.638 ####[facility] [address] [place], [address] Urine Cultureon 07-31-2025 URC Culture exhibits no growth. Normal [facility] Comment on above: Performed By: #### L 400.0001, M100.2200 ####[facility] [address] [place], [address] 12 Lead EKGon 07-30-2025 [address] [facility] Activated partial thrombopla stin time (aPTT) in platelet poor plasma by coagulation aOrdered By: Trevor Nguyen on 07-30-2025 aPTT Coag (PPP) [Time] 30.3 s 24.1-36.2 [facility] Bilirubin Test strip Ql (U)O rdered By: Trevor Nguyen on 07-30-2025 Bilirubin Ql (U) Negative Negative [facility] Blood cultureOrdered By: Trevor Nguyen on 07-30-2025 Bacteria identified Cx Nom (Bld) No growth in [address] [facility] Bacteria identified Cx Nom (Bld) No growth in [address] [facility] Bacteria identified Cx Nom (Bld) No growth in [address] [facility] Bacteria identified Cx Nom (Bld) No growth in [address] [facility] CTA Chest W/WO Contraston CTA Chest W/WO Contrast Normal [facility] Chest 1 View (Portable)on Chest 1 View (Portable) Normal [facility] Comprehensive Metabolic Prof ilon 07-30-2025 Albumin [Mass/Vol] 3.4 g/dL Normal 3.4-4.8 [facility] Comment on above: Performed By: #### L 300.3900, L100.0100, L500.4050, L300.4310, L503.6005, M200.1000 ####[facility] [address] [place], [address] Albumin/Globulin [Mass ratio] 1.3 {ratio} Normal 0.9-2.4 [facility] Comment on above: Performed By: #### L 300.3900, L100.0100, L500.4050, L300.4310, L503.6005, M200.1000 ####[facility] [address] [place], [address] ALK PHOS 58 U/L Normal 40-129 [facility] Comment on above: Performed By: #### L 300.3900, L100.0100, L500.4050, L300.4310, L503.6005, M200.1000 ####[facility] [address] [place], [address] ALT [Catalytic activity/Vol] 8 U/L Normal <=46 [facility] Comment on above: Performed By: #### L 300.3900, L100.0100, L500.4050, L300.4310, L503.6005, M200.1000 ####[facility] [address] [place], [address] AST [Catalytic activity/Vol] 26 U/L Normal <=37 [facility] Comment on above: Performed By: #### L 300.3900, L100.0100, L500.4050, L300.4310, L503.6005, M200.1000 ####[facility] [address] [place], [address] Bilirubin [Mass/Vol] 0.66 mg/dL Normal 0.00-1.30 [facility] Comment on above: Performed By: #### L 300.3900, L100.0100, L500.4050, L300.4310, L503.6005, M200.1000 ####[facility] [address] [place], [address] BUN/CRE 26.7 RATIO High 10-20 [facility] Comment on above: Performed By: #### L 300.3900, L100.0100, L500.4050, L300.4310, L503.6005, M200.1000 ####[facility] [address] [place], [address] Calcium [Mass/Vol] 8.1 mg/dL Normal 7.6-11.0 [facility] Comment on above: Performed By: #### L 300.3900, L100.0100, L500.4050, L300.4310, L503.6005, M200.1000 ####[facility] [address] [place], [address] Chloride [Moles/Vol] 97 mmol/L Low 98-108 [facility] Comment on above: Performed By: #### L 300.3900, L100.0100, L500.4050, L300.4310, L503.6005, M200.1000 ####[facility] [address] [place], [address] CO2 [Moles/Vol] 25.3 mmol/L Normal 21.0-32.0 [facility] Comment on above: Performed By: #### L 300.3900, L100.0100, L500.4050, L300.4310, L503.6005, M200.1000 ####[facility] [address] [place], [address] Creatinine [Mass/Vol] 0.81 mg/dL Normal 0.70-1.20 [facility] Comment on above: Performed By: #### L 300.3900, L100.0100, L500.4050, L300.4310, L503.6005, M200.1000 ####[facility] [address] [place], [address] ECRCL 69.20 ml/min Normal 50-250 [facility] Comment on above: Performed By: #### L 300.3900, L100.0100, L500.4050, L300.4310, L503.6005, M200.1000 ####[facility] [address] [place], [address] GAP 10 Normal 5-15 [facility] Comment on above: Performed By: #### L 300.3900, L100.0100, L500.4050, L300.4310, L503.6005, M200.1000 ####[facility] [address] [place], [address] GFR/1.73 sq M.predicted among non-blacks MDRD (S/P/Bld) [Vol rate/Area] 88 mL/min/{1.73_m2} Normal >60 [facility] Comment on above: Result Comment: mL/m in/1.73m2 CKD-EPI Creatinine Equation (2020) Performed By: #### L 300.3900, L100.0100, L500.4050, L300.4310, L503.6005, M200.1000 ####[facility] [address] [place], [address] Globulin (S) [Mass/Vol] 2.6 g/dL Normal 2.2-4.2 [facility] Comment on above: Performed By: #### L 300.3900, L100.0100, L500.4050, L300.4310, L503.6005, M200.1000 ####[facility] [address] [place], [address] Glucose [Mass/Vol] 110 mg/dL High 70-99 [facility] Comment on above: Performed By: #### L 300.3900, L100.0100, L500.4050, L300.4310, L503.6005, M200.1000 ####[facility] [address] [place], [address] Potassium [Moles/Vol] 3.4 mmol/L Normal 3.3-5.1 [facility] Comment on above: Performed By: #### L 300.3900, L100.0100, L500.4050, L300.4310, L503.6005, M200.1000 ####[facility] [address] [place], [address] Sodium [Moles/Vol] 133 mmol/L Normal 133-145 [facility] Comment on above: Performed By: #### L 300.3900, L100.0100, L500.4050, L300.4310, L503.6005, M200.1000 ####[facility] [address] [place], [address] T PROT 5.9 g/dL Normal 5.9-8.4 [facility] Comment on above: Performed By: #### L 300.3900, L100.0100, L500.4050, L300.4310, L503.6005, M200.1000 ####[facility] [address] [place], [address] Urea nitrogen [Mass/Vol] 22 mg/dL High - [facility] Comment on above: Performed By: #### L 300.3900, L100.0100, L500.4050, L300.4310, L503.6005, M200.1000 ####[facility] [address] [place], [address] D-Dimer Quantitative (DVT/PE )on 07-30-2025 D-DIMER QUANT 7.44 FEU/ug/m Invalid Interpretation Code 0.27-0.49 [facility] Comment on above: Result Comment: D-Di randell ELEVATED (>0.49): Additional studies and clinicalassessments are indicated to conclude diagnosis of:Deep Vein Thrombosis (DVT) or Pulmonary Embolism (PE)CRITICAL VALUE CALLED TO JANNET MORSE07/30/25 2204 Nellie Romero.RESULTS READ BACK BY SAME. Performed By: #### L 300.8000 ####[facility] [address] [place], [place], [address] Emergency Department Summary on 07-30-2025 Emergency Department Summary Normal [facility] H AND P Exam - Hospitaliston 07-30-2025 H&P Exam - Hospitalist Normal [facility] Ketones Test strip Ql (U)Ord ered By: Trevor Nguyen on 07-30-2025 Ketones Ql (U) 5 mg/dl High Negative [facility] Lactic Acidon 07-30-2025 Lactate [Moles/Vol] mmol/L Normal 0.0-2.0 [facility] Comment on above: Order Comment: Y Performed By: #### L 300.3900, L100.0100, L500.4050, L300.4310, L503.6005, M200.1000 ####[facility] [address] [place], [address] M R Staph Aureus DNA by PCRo n 07-30-2025 MRSA DNA ASSAY Negative Normal Negative [facility] Comment on above: Performed By: #### L 8200.1000 ####[facility] [address] [place], [address] Mucus LM Ql (Urine sed)Order ed By: Trevor Nguyen on 07-30-2025 Mucus Ql (Urine sed) 0 SEEN /hpf [facility] Nitrite Test strip Ql (U)Ord ered By: Trevor Nguyen on 07-30-2025 Nitrite Ql (U) Negative Negative [facility] Partial Thromboplast Timeon 07-30-2025 aPTT Coag (Bld) [Time] 30.3 s Normal 24.1-36.2 [facility] Comment on above: Performed By: #### L 300.3900, L100.0100, L500.4050, L300.4310, L503.6005, M200.1000 ####[facility] [address] [place], [address] Protein Test strip Ql (U)Ord ered By: Trevorvida Britto on 07-30-2025 Protein Ql (U) Negative Negative [facility] Prothrombin Time w/INRon INR Coag (PPP) [Relative time] 1.0 {INR} Normal [facility] Comment on above: Performed By: #### L 300.3900, L100.0100, L500.4050, L300.4310, L503.6005, M200.1000 ####[facility] [address] [place], [address] PT Coag (PPP) [Time] 13.8 s Normal 11.7-14.9 [facility] Comment on above: Performed By: #### L 300.3900, L100.0100, L500.4050, L300.4310, L503.6005, M200.1000 ####[facility] [address] [place], [address] Prothrombin timeOrdered By: Trevor Nguyen on 07-30-2025 PT Coag (PPP) [Time] 13.8 s 11.7-14.9 [facility] Respiratory pathogens detect ion panel by molecular detection methodOrdered By: Rain Gallagher on 07-30-2025 Respiratory pathogens DNA and RNA panel DEMIAN+probe (Resp) [facility] Respiratory pathogens DNA and RNA panel DEMIAN+probe (Resp) [facility] Squamous epithelial cells de tection in urine sediment by light microscopyOrdered By: Trevor Nguyen on 07-30-2025 Epithelial cells.squamous LM Ql (Urine sed) 0-5 SEEN /hpf 0-5 [facility] Urinalysis, Completeon 07-30 EPI,SQUAMOUS 0-5 SEEN Normal 0-5 [facility] Comment on above: Order Comment: MALIA CTOR TO SPECIFY Performed By: #### L 400.0001, M100.0 ####[facility] [address] [place], [address] RBC 0-5 SEEN Normal 0-5 [facility] Comment on above: Order Comment: MALIA CTOR TO SPECIFY Performed By: #### L 400.0001, M100.2200 ####[facility] [address] [place], [address] WBC 0-5 SEEN Normal 0-5 [facility] Comment on above: Order Comment: MALIA CTOR TO SPECIFY Performed By: #### L 400.0001, M100.2200 ####[facility] [address] [place], [address] BACTERIA 0 SEEN Normal None Seen [facility] Comment on above: Order Comment: MALIA CTOR TO SPECIFY Performed By: #### L 400.0001, M100.2200 ####[facility] [address] [place], [address] Mucus Ql (Urine sed) 0 SEEN Normal [facility] Comment on above: Order Comment: MALIA CTOR TO SPECIFY Performed By: #### L 400.0001, M100.2200 ####[facility] [address] [place], [address] Urine clarityOrdered By: Trevor Nguyen on 07-30-2025 Clarity (U) Clear Clear [facility] Urine color determinationOrd ered By: Trevor Nguyen on 07-30-2025 Color (U) Straw Yellow [facility] Urine cultureOrdered By: Trevorvida Nguyen on 07-30-2025 Bacteria identified Cx Nom (U) Culture exhibits no growth. [facility] Bacteria identified Cx Nom (U) Culture exhibits no growth. [facility] Urine glucose detectionOrder ed By: Trevor Nguyen on 07-30-2025 Glucose Ql (U) Normal mg/dl Normal [facility] Urine leukocyte esterase det ection by dipstickOrdered By: Trevor Nguyen on 07-30-2025 Leukocyte esterase Test strip Ql (U) Negative Negative [facility] Urine pHOrdered By: Trevor echols on 07-30-2025 pH (U) 7.0 [pH] 5.0 - 8.0 [facility] Urine sediment bacteria coun t by microscopy (number/high power field)Ordered By: Trevorvida Nguyen on 07-30-2025 Bacteria LM.HPF (Urine sed) [#/Area] 0 /[HPF] None Seen [facility] Urine specific gravity measu rementOrdered By: Trevorvida Nguyen on 07-30-2025 Specific gravity (U) [Rel density] 1.010 1.002-1.[address] [facility] Urine urobilinogen measureme ntOrdered By: Trevor Nguyen on 07-30-2025 Urobilinogen Ql (U) Normal mg/dl Normal [facility] White blood cell countOrdere d By: Trevor Nguyen on 07-30-2025 White blood cell count 0-5 SEEN /hpf 0-5 [facility] Radiation Oncology Visiton 1 Radiation Oncology Visit Normal [facility] Absolute lymphocyte countOrd ered By: Simone Collins on 07-26-2025 Lymphocytes Auto (Unsp spec) [#/Vol] 0.44 10*3/uL Low 0.83-4.51 [facility] Anion gap in Serum or Plasma Ordered By: Simone Collins on 07-26-2025 Anion gap [Moles/Vol] 9 mmol/L 5-15 [facility] Automated lymphocyte count a s percentage of total leukocytesOrdered By: Simone Collins on 07-26-2025 Lymphocytes/100 WBC Auto (Unsp spec) 14.6 % Low 19-41 [facility] BUN/creatinine ratioOrdered By: Simone Collins on 07-26-2025 Urea nitrogen/Creatinine [Mass ratio] 16.1 mg/mg 10- [facility] Basophil percentageOrdered B y: Simone Collins on 07-26-2025 Basophils/100 WBC (Bld) 1.0 % 0-1 [facility] Bilirubin, totalOrdered By: Simone Collins on 07-26-2025 Bilirubin [Mass/Vol] 0.71 mg/dL 0.00-1.30 [facility] CBC W/Diff, Automatedon 07-14 Absolute Lymph 0.44 X10 3/uL Low 0.83-4.51 [facility] Comment on above: Performed By: #### L 100.0100, L500.4050 ####[facility] [address] [place], [address] Absolute Neut 2.0 X10 3/uL Normal 2.0-7.7 [facility] Comment on above: Performed By: #### L 100.0100, L500.4050 ####[facility] [address] [place], [address] Basophils/100 WBC (Bld) 1.0 % Normal 0-1 [facility] Comment on above: Performed By: #### L 100.0100, L500.4050 ####[facility] [address] [place], [address] Eosinophils/100 WBC (Bld) 0.0 % Normal 0-5 [facility] Comment on above: Performed By: #### L 100.0100, L500.4050 ####[facility] [address] [place], [address] Erythrocyte distribution width (RBC) [Ratio] 13.2 % Normal 11.6-14.6 [facility] Comment on above: Performed By: #### L 100.0100, L500.4050 ####[facility] [address] [place], [address] Hematocrit (Bld) [Volume fraction] 30.9 % Low 40-54 [facility] Comment on above: Performed By: #### L 100.0100, L500.4050 ####[facility] [address] [place], [address] Hemoglobin (Bld) [Mass/Vol] 10.7 g/dL Low 13.0-16.5 [facility] Comment on above: Performed By: #### L 100.0100, L500.4050 ####[facility] [address] [place], [address] IG% 0.700 Normal 0.0-0.9 [facility] Comment on above: Result Comment: IG% - Immature Granulocytes (promyelocytes, myelocytes andmetamyelocytes) > 1% indicates that a LEFT SHIFT is Present. Performed By: #### L 100.0100, L500.4050 ####[facility] [address] [place], [address] Lymphocytes/100 WBC (Bld) 14.6 % Low 19-41 [facility] Comment on above: Performed By: #### L 100.0100, L500.4050 ####[facility] [address] [place], [address] MCH (RBC) [Entitic mass] 29.9 pg Normal 27.0-32.0 [facility] Comment on above: Performed By: #### L 100.0100, L500.4050 ####[facility] [address] [place], [address] MCHC (RBC) [Mass/Vol] 34.6 g/dL Normal 32-36 [facility] Comment on above: Performed By: #### L 100.0100, L500.4050 ####[facility] [address] [place], [address] MCV (RBC) [Entitic vol] 86.3 fL Normal 80-94 [facility] Comment on above: Performed By: #### L 100.0100, L500.4050 ####[facility] [address] [place], [address] Monocytes/100 WBC (Bld) 16.9 % High 0-10 [facility] Comment on above: Performed By: #### L 100.0100, L500.4050 ####[facility] [address] [place], [address] Neutrophils/100 WBC (Bld) 66.8 % Normal 47-70 [facility] Comment on above: Performed By: #### L 100.0100, L500.4050 ####[facility] [address] [place], [address] Nucleated RBC (Bld) [#/Vol] 0 10*3/uL Normal 0-5 [facility] Comment on above: Performed By: #### L 100.0100, L500.4050 ####[facility] [address] [place], [address] Platelet mean volume (Bld) [Entitic vol] 9.3 fL Normal 6.2-12.0 [facility] Comment on above: Performed By: #### L 100.0100, L500.4050 ####[facility] [address] [place], [address] Platelets (Bld) [#/Vol] 183 10*3/uL Normal 150-450 [facility] Comment on above: Performed By: #### L 100.0100, L500.4050 ####[facility] [address] [place], [address] RBC (Bld) [#/Vol] 3.58 10*6/uL Low 4.6-6.2 [facility] [facility] Comment on above: Performed By: #### L 100.0100, L500.4050 ####[facility] [address] [place], [address] RDW SD 41.0 fl Normal 35.1-43.9 [facility] Comment on above: Performed By: #### L 100.0100, L500.4050 ####[facility] [address] [place], [address] WBC (Bld) [#/Vol] 3.0 10*3/uL Low 4.4-11.0 [facility] Comment on above: Performed By: #### L 100.0100, L500.4050 ####[facility] [address] [place], [address] Carbon dioxide, total [Moles /volume] in Central venous bloodOrdered By: Simone Collins on 07-26-2025 CO2 [Moles/Vol] 23.8 mmol/L 21.0-32.0 [facility] Chloride assayOrdered By: Yoon Collins on 07-26-2025 Chloride [Moles/Vol] 96 mmol/L Low 98-108 [facility] Comprehensive Metabolic Prof ilon 07-26-2025 Albumin [Mass/Vol] 3.4 g/dL Normal 3.4-4.8 [facility] Comment on above: Performed By: #### L 100.0100, L500.4050 ####[facility] [address] [place], [address] Albumin/Globulin [Mass ratio] 1.3 {ratio} Normal 0.9-2.4 [facility] Comment on above: Performed By: #### L 100.0100, L500.4050 ####[facility] [address] [place], [address] ALK PHOS 61 U/L Normal 40-129 [facility] Comment on above: Performed By: #### L 100.0100, L500.4050 ####[facility] [address] [place], [address] ALT [Catalytic activity/Vol] 10 U/L Normal <=46 [facility] Comment on above: Performed By: #### L 100.0100, L500.4050 ####[facility] [address] [place], [address] AST [Catalytic activity/Vol] 21 U/L Normal <=37 [facility] Comment on above: Performed By: #### L 100.0100, L500.4050 ####[facility] [address] [place], [address] Bilirubin [Mass/Vol] 0.71 mg/dL Normal 0.00-1.30 [facility] Comment on above: Performed By: #### L 100.0100, L500.4050 ####[facility] [address] [place], [address] BUN/CRE 16.1 RATIO Normal 10-20 [facility] Comment on above: Performed By: #### L 100.0100, L500.4050 ####[facility] [address] [place], [address] Calcium [Mass/Vol] 8.3 mg/dL Normal 7.6-11.0 [facility] Comment on above: Performed By: #### L 100.0100, L500.4050 ####[facility] [address] [place], [address] Chloride [Moles/Vol] 96 mmol/L Low 98-108 [facility] Comment on above: Performed By: #### L 100.0100, L500.4050 ####[facility] [address] [place], [address] CO2 [Moles/Vol] 23.8 mmol/L Normal 21.0-32.0 [facility] Comment on above: Performed By: #### L 100.0100, L500.4050 ####[facility] [address] [place], [address] Creatinine [Mass/Vol] 0.90 mg/dL Normal 0.70-1.20 [facility] Comment on above: Performed By: #### L 100.0100, L500.4050 ####[facility] [address] [place], [address] ECRCL 62.28 ml/min Normal 50-250 [facility] Comment on above: Performed By: #### L 100.0100, L500.4050 ####[facility] [address] [place], [address] GAP 9 Normal 5-15 [facility] Comment on above: Performed By: #### L 100.0100, L500.4050 ####[facility] [address] [place], [address] GFR/1.73 sq M.predicted among non-blacks MDRD (S/P/Bld) [Vol rate/Area] 86 mL/min/{1.73_m2} Normal >60 [facility] Comment on above: Result Comment: mL/m in/1.73m2 CKD-EPI Creatinine Equation (2020) Performed By: #### L 100.0100, L500.4050 ####[facility] [address] [place], [address] Globulin (S) [Mass/Vol] 2.7 g/dL Normal 2.2-4.2 [facility] Comment on above: Performed By: #### L 100.0100, L500.4050 ####[facility] [address] [place], [address] Glucose [Mass/Vol] 136 mg/dL High 70-99 [facility] Comment on above: Performed By: #### L 100.0100, L500.4050 ####[facility] [address] [place], [address] Potassium [Moles/Vol] 3.4 mmol/L Normal 3.3-5.1 [facility] Comment on above: Performed By: #### L 100.0100, L500.4050 ####[facility] [address] [place], [address] Sodium [Moles/Vol] 129 mmol/L Low 133-145 [facility] Comment on above: Performed By: #### L 100.0100, L500.4050 ####[facility] [address] [place], [address] T PROT 6.0 g/dL Normal 5.9-8.4 [facility] Comment on above: Performed By: #### L 100.0100, L500.4050 ####[facility] [address] [place], [address] Urea nitrogen [Mass/Vol] 15 mg/dL Normal 4-19 [facility] Comment on above: Performed By: #### L 100.0100, L500.4050 ####[facility] [address] [place], [address] Eosinophil percentageOrdered By: Simone Collins on 07-26-2025 Eosinophils/100 WBC (Bld) 0.0 % 0-5 [facility] Erythrocyte distribution wid th ratioOrdered By: Simone Collins on 07-26-2025 Erythrocyte distribution width (RBC) [Ratio] 13.2 % 11.6-14.6 [facility] Erythrocyte distribution wid th standard deviationOrdered By: Simone Collins on 07-26-2025 Erythrocyte distribution width (RBC) [Ratio] 41.0 fl 35.1-43.9 [facility] Glomerular filtration rate ( GFR) estimation/1.73 sq m using serum, plasma, or whole bOrdered By: Simone Collins on 07-26-2025 GFR/1.73 sq M.predicted among non-blacks MDRD (S/P/Bld) [Vol rate/Area] 86 mL/min/{1.73_m2} >60 [facility] Hematocrit Auto (Bld) [Volum e fraction]Ordered By: Simone Collins on 07-26-2025 Hematocrit (Bld) [Volume fraction] 30.9 % Low 40-54 [facility] Hemoglobin measurementOrdere d By: Simone Collins on 07-26-2025 Hemoglobin (Bld) [Mass/Vol] 10.7 g/dL Low 13.0-16.5 [facility] Immature granulocytes/100 WB C Auto (Bld)Ordered By: Simone Collins on 07-26-2025 Immature granulocytes/100 WBC (Bld) 0.700 % 0.0-0.9 [facility] MCV (mean corpuscular volume ) determinationOrdered By: Simone Collins on 07-26-2025 MCV (RBC) [Entitic vol] 86.3 fL 80-94 [facility] Mean corpuscular hemoglobin (MCH) determinationOrdered By: Simone Collins on 07-26-2025 MCH (RBC) [Entitic mass] 29.9 pg 27.0-32.0 [facility] Monocyte percentageOrdered B y: Simone Collins on 07-26-2025 Monocytes/100 WBC (Bld) 16.9 % High 0-10 [facility] Neutrophil percentageOrdered By: Simone Collins on 07-26-2025 Neutrophils/100 WBC (Bld) 66.8 % 47-70 [facility] No Panel InformationOrdered By: Simone Collins on 07-26-2025 21 U/L <38 [facility] Oncology Visit Reporton 07-14 Oncology Visit Report Normal [facility] Platelet countOrdered By: Yoon Collins on 07-26-2025 Platelets (Bld) [#/Vol] 183 10*3/uL 150-450 [facility] Potassium measurement (mass/ volume)Ordered By: Simone Collins on 07-26-2025 Potassium (Unsp spec) [Mass/Vol] 3.4 mmol/L 3.3-5.1 [facility] RBC Auto (Bld) [#/Vol]Ordere d By: Simone Collins on 07-26-2025 RBC (Bld) [#/Vol] 3.58 10*6/uL Low 4.6-6.2 [facility] Serum creatinine measurement (mass/volume)Ordered By: Simone Collins on 07-26-2025 Creatinine [Mass/Vol] 0.90 mg/dL 0.70-1.20 [facility] Serum globulin measurementOr dered By: Simone Collins on 07-26-2025 Globulin (S) [Mass/Vol] 2.7 g/dL 2.2-4.2 [facility] Serum glucose measurement (m ass/volume)Ordered By: Simone Collins on 07-26-2025 Glucose [Mass/Vol] 136 mg/dL High 70-99 [facility] Serum or plasma alanine macias otransferase (ALT) measurementOrdered By: Simone Collins on 07-26-2025 ALT [Catalytic activity/Vol] 10 U/L <47 [facility] Serum or plasma albumin shanita urement (mass/volume)Ordered By: Simone Collins on 07-26-2025 Albumin [Mass/Vol] 3.4 g/dL 3.4-4.8 [facility] Serum or plasma albumin/glob ulin mass ratioOrdered By: Simone Collins on 07-26-2025 Albumin/Globulin [Mass ratio] 1.3 {ratio} 0.9-2.4 [facility] Serum or plasma alkaline tobin sphatase measurementOrdered By: Simone Collins on 07-26-2025 ALP [Catalytic activity/Vol] 61 U/L 40-129 [facility] Serum or plasma calcium shanita urement (mass/volume)Ordered By: Simone Collins on 07-26-2025 Calcium [Mass/Vol] 8.3 mg/dL 7.6-11.0 [facility] Serum or plasma urea nitroge n measurement (mass/volume)Ordered By: Simone Collins on 07-26-2025 Urea nitrogen [Mass/Vol] 15 mg/dL 4-19 [facility] Sodium levelOrdered By: Smooth Collins on 07-26-2025 Sodium [Moles/Vol] 129 mmol/L Low 133-145 [facility] Total proteinOrdered By: Johnhiginio Collins on 07-26-2025 Protein [Mass/Vol] 6.0 g/dL 5.9-8.4 [facility] White blood cell (WBC) count Ordered By: Simone Collins on 07-26-2025 WBC (Bld) [#/Vol] 3.0 10*3/uL Low 4.4-11.0 [facility] Radiation Oncology Visiton 1 Radiation On[address] Visit Normal [facility] Absolute lymphocyte countOrd ered By: Simone Collins on 07-19-2025 Lymphocytes Auto (Unsp spec) [#/Vol] 0.84 10*3/uL 0.83-4.51 [facility] Absolute neutrophil countOrd ered By: Simone Collins on 07-19-2025 Neutrophils (Bld) [#/Vol] 2.0 10*3/uL 2.0-7.7 [facility] Anion gap in Serum or Plasma Ordered By: Simone Collins on 07-19-2025 Anion gap [Moles/Vol] 10 mmol/L 5- [facility] Automated lymphocyte count a s percentage of total leukocytesOrdered By: Simone Collins on 07-19-2025 Lymphocytes/100 WBC Auto (Unsp spec) 25.1 % - [facility] BUN/creatinine ratioOrdered By: Simone Collins on 07-19-2025 Urea nitrogen/Creatinine [Mass ratio] 15.1 mg/mg 10- [facility] Basophil percentageOrdered B y: Simone Collins on 07-19-2025 Basophils/100 WBC (Bld) 0.6 % 0-1 [facility] Bilirubin, totalOrdered By: Simone Collins on 07-19-2025 Bilirubin [Mass/Vol] 0.40 mg/dL 0.00-1.30 [facility] CBC W/Diff, Automatedon Absolute Lymph 0.84 X10 3/uL Normal 0.83-4.51 [facility] Comment on above: Performed By: #### L 500.4050, L100.0100 ####[facility] [address] [place], [address] Absolute Neut 2.0 X10 3/uL Normal 2.0-7.7 [facility] Comment on above: Performed By: #### L 500.4050, L100.0100 ####[facility] [address] [place], [address] Basophils/100 WBC (Bld) 0.6 % Normal 0-1 [facility] Comment on above: Performed By: #### L 500.4050, L100.0100 ####[facility] [address] [place], [address] Eosinophils/100 WBC (Bld) 1.8 % Normal 0-5 [facility] Comment on above: Performed By: #### L 500.4050, L100.0100 ####[facility] [address] [place], [address] Erythrocyte distribution width (RBC) [Ratio] 13.2 % Normal 11.6-14.6 [facility] Comment on above: Performed By: #### L 500.4050, L100.0100 ####[facility] [address] [place], [address] Hematocrit (Bld) [Volume fraction] 33.0 % Low 40-54 [facility] Comment on above: Performed By: #### L 500.4050, L100.0100 ####[facility] [address] [place], [address] Hemoglobin (Bld) [Mass/Vol] 11.1 g/dL Low 13.0-16.5 [facility] Comment on above: Performed By: #### L 500.4050, L100.0100 ####[facility] [address] [place], [address] IG% 0.600 Normal 0.0-0.9 [facility] Comment on above: Result Comment: IG% - Immature Granulocytes (promyelocytes, myelocytes andmetamyelocytes) > 1% indicates that a LEFT SHIFT is Present. Performed By: #### L 500.4050, L100.0100 ####[facility] [address] [place], [address] Lymphocytes/100 WBC (Bld) 25.1 % Normal 19-41 [facility] Comment on above: Performed By: #### L 500.4050, L100.0100 ####[facility] [address] [place], [address] MCH (RBC) [Entitic mass] 29.7 pg Normal 27.0-32.0 [facility] Comment on above: Performed By: #### L 500.4050, L100.0100 ####[facility] [address] [place], [address] MCHC (RBC) [Mass/Vol] 33.6 g/dL Normal 32-36 [facility] Comment on above: Performed By: #### L 500.4050, L100.0100 ####[facility] [address] [place], [address] MCV (RBC) [Entitic vol] 88.2 fL Normal 80-94 [facility] Comment on above: Performed By: #### L 500.4050, L100.0100 ####[facility] [address] [place], [address] Monocytes/100 WBC (Bld) 11.1 % High 0-10 [facility] Comment on above: Performed By: #### L 500.4050, L100.0100 ####[facility] [address] [place], [address] Neutrophils/100 WBC (Bld) 60.8 % Normal 47-70 [facility] Comment on above: Performed By: #### L 500.4050, L100.0100 ####[facility] [address] [place], [address] Nucleated RBC (Bld) [#/Vol] 0 10*3/uL Normal 0-5 [facility] Comment on above: Performed By: #### L 500.4050, L100.0100 ####[facility] [address] [place], [address] Platelet mean volume (Bld) [Entitic vol] 9.6 fL Normal 6.2-12.0 [facility] Comment on above: Performed By: #### L 500.4050, L100.0100 ####[facility] [address] [place], [address] Platelets (Bld) [#/Vol] 199 10*3/uL Normal 150-450 [facility] Comment on above: Performed By: #### L 500.4050, L100.0100 ####[facility] [address] [place], [address] RBC (Bld) [#/Vol] 3.74 10*6/uL Low 4.6-6.2 [facility] Comment on above: Performed By: #### L 500.4050, L100.0100 ####[facility] [address] [place], [address] RDW SD 42.6 fl Normal 35.1-43.9 [facility] Comment on above: Performed By: #### L 500.4050, L100.0100 ####[facility] [address] [place], [address] WBC (Bld) [#/Vol] 3.3 10*3/uL Low 4.4-11.0 [facility] Comment on above: Performed By: #### L 500.4050, L100.0100 ####[facility] [address] [place], [address] CNPNon 07-19-2025 CNPN Telephone (NRMDN) -- GLENN PARADA ([id number]) 1945 M Date Time Provider Department 07/19/25 ARIES SARABIA During your visit today, we recorded the following information about you: Jael Ch RN 07/19/2025 11:05 AM Signed Voicemail received July 16, [phone] spouse calling to report patient having increased difficult swallowing pills, requesting alternate form of Sinemet. PEG tube was placed. He is still eating for all intake, no tube feedings. He is taking Sinemet CR with applesauce without difficulty. Recommended continuing with medications as currently prescribed and to notify office of any changes. Aries Sarabia APRN.GARY 07/20/2025 10:17 PM Signed As long as he is taking it with applesauce without problems and is allowed oral intake , which he seems to be, then he can stay on this. If needed, alternatives would be regular Sinemet crushed or a comparable dose Rytary with capsules opened up into applesauce. Aries Sarabia APRN-SR VICE PRESIDENT Allergies As of Date: 07/19/2025 Noted Allergy Reaction ABILIFY (ARIPIPRAZOLE) 04/08/2025 15 [...] be prescribed. Date Reviewed: 04/08/2025 Reviewed by: Aries Sarabia APRN.SR VICE PRESIDENT - Fully Assessed Reason for Visit: Medication Problem [65] Prescriptions as of 07/21/2025 - propranolol (INDERAL) 20 mg tablet Take [...] and Calcium. Problem List As Of Date 07/19/2025 Noted Resolved Gastroesophageal reflux disease [K21.9] 09/27/2023 Diagnosed: 12/19/2023 Parkinson's disease without dyskinesia or fluct*03/17/2024 Constipation [K59.00] 03/17/2024 Orthostatic hypotension [I95.1] 03/17/2024 Encounter Status:Closed by JAEL CH on 07/19/25 Normal [facility] Carbon dioxide, total [Moles /volume] in Central venous bloodOrdered By: Simone Collins on 07-19-2025 CO2 [Moles/Vol] 22.6 mmol/L 21.0-32.0 [facility] Chloride assayOrdered By: Yoon Collins on 07-19-2025 Chloride [Moles/Vol] 102 mmol/L 98-108 [facility] Comprehensive Metabolic Prof ilon 07-19-2025 Albumin [Mass/Vol] 3.6 g/dL Normal 3.4-4.8 [facility] Comment on above: Performed By: #### L 500.4050, L100.0100 ####[facility] [address] [place], [address] Albumin/Globulin [Mass ratio] 1.5 {ratio} Normal 0.9-2.4 [facility] Comment on above: Performed By: #### L 500.4050, L100.0100 ####[facility] [address] [place], [address] ALK PHOS 66 U/L Normal 40-129 [facility] Comment on above: Performed By: #### L 500.4050, L100.0100 ####[facility] [address] [place], [address] ALT [Catalytic activity/Vol] 6 U/L Normal <=46 [facility] Comment on above: Performed By: #### L 500.4050, L100.0100 ####[facility] [address] [place], [address] AST [Catalytic activity/Vol] 18 U/L Normal <=37 [facility] Comment on above: Performed By: #### L 500.4050, L100.0100 ####[facility] [address] [place], [address] Bilirubin [Mass/Vol] 0.40 mg/dL Normal 0.00-1.30 [facility] Comment on above: Performed By: #### L 500.4050, L100.0100 ####[facility] [address] [place], [address] BUN/CRE 15.1 RATIO Normal 10-20 [facility] Comment on above: Performed By: #### L 500.4050, L100.0100 ####[facility] [address] [place], [address] Calcium [Mass/Vol] 8.2 mg/dL Normal 7.6-11.0 [facility] Comment on above: Performed By: #### L 500.4050, L100.0100 ####[facility] [address] [place], [address] Chloride [Moles/Vol] 102 mmol/L Normal 98-108 [facility] Comment on above: Performed By: #### L 500.4050, L100.0100 ####[facility] [address] [place], [address] CO2 [Moles/Vol] 22.6 mmol/L Normal 21.0-32.0 [facility] Comment on above: Performed By: #### L 500.4050, L100.0100 ####[facility] [address] [place], [address] Creatinine [Mass/Vol] 0.88 mg/dL Normal 0.70-1.20 [facility] Comment on above: Performed By: #### L 500.4050, L100.0100 ####[facility] [address] [place], [address] ECRCL 63.69 ml/min Normal 50-250 [facility] Comment on above: Performed By: #### L 500.4050, L100.0100 ####[facility] [address] [place], [address] GAP 10 Normal 5-15 [facility] Comment on above: Performed By: #### L 500.4050, L100.0100 ####[facility] [address] [place], [address] GFR/1.73 sq M.predicted among non-blacks MDRD (S/P/Bld) [Vol rate/Area] 86 mL/min/{1.73_m2} Normal >60 [facility] Comment on above: Result Comment: mL/m in/1.73m2 CKD-EPI Creatinine Equation (2020) Performed By: #### L 500.4050, L100.0100 ####[facility] [address] [place], [address] Globulin (S) [Mass/Vol] 2.4 g/dL Normal 2.2-4.2 [facility] Comment on above: Performed By: #### L 500.4050, L100.0100 ####[facility] [address] [place], [address] Glucose [Mass/Vol] 116 mg/dL High 70-99 [facility] Comment on above: Performed By: #### L 500.4050, L100.0100 ####[facility] [address] [place], [address] Potassium [Moles/Vol] 3.7 mmol/L Normal 3.3-5.1 [facility] Comment on above: Performed By: #### L 500.4050, L100.0100 ####[facility] [address] [place], [address] Sodium [Moles/Vol] 135 mmol/L Normal 133-145 [facility] Comment on above: Performed By: #### L 500.4050, L100.0100 ####[facility] [address] [place], [address] T PROT 5.9 g/dL Normal 5.9-8.4 [facility] Comment on above: Performed By: #### L 500.4050, L100.0100 ####[facility] [address] [place], [address] Urea nitrogen [Mass/Vol] 13 mg/dL Normal 4-19 [facility] Comment on above: Performed By: #### L 500.4050, L100.0100 ####[facility] [address] [place], [address] Eosinophil percentageOrdered By: Simone Collins on 07-19-2025 Eosinophils/100 WBC (Bld) 1.8 % 0-5 [facility] Erythrocyte distribution wid th ratioOrdered By: Simone Collins on 07-19-2025 Erythrocyte distribution width (RBC) [Ratio] 13.2 % 11.6-14.6 [facility] Erythrocyte distribution wid th standard deviationOrdered By: Simone Collins on 07-19-2025 Erythrocyte distribution width (RBC) [Ratio] 42.6 fl 35.1-43.9 [facility] Glomerular filtration rate ( GFR) estimation/1.73 sq m using serum, plasma, or whole bOrdered By: Simone Collins on 07-19-2025 GFR/1.73 sq M.predicted among non-blacks MDRD (S/P/Bld) [Vol rate/Area] 86 mL/min/{1.73_m2} >60 [facility] Comment on above: mL/min/1.73m2 CKD-EP I Creatinine Equation (2020) Hematocrit Auto (Bld) [Volum e fraction]Ordered By: Simone Collins on 07-19-2025 Hematocrit (Bld) [Volume fraction] 33.0 % Low 40-54 [facility] Hemoglobin measurementOrdere d By: Simone Collins on 07-19-2025 Hemoglobin (Bld) [Mass/Vol] 11.1 g/dL Low 13.0-16.5 [facility] Immature granulocytes/100 WB C Auto (Bld)Ordered By: Simone Collins on 07-19-2025 Immature granulocytes/100 WBC (Bld) 0.600 % 0.0-0.9 [facility] Comment on above: IG% - Immature Granu locytes (promyelocytes, myelocytes and metamyelocytes) > 1% indicates that a LEFT SHIFT is Present. Laboratory - Chemistry and C hemistry - challengeOrdered By: Simone Collins on 07-19-2025 AST [Catalytic activity/Vol] 18 U/L <38 [facility] MCV (mean corpuscular volume ) determinationOrdered By: Simone Collins on 07-19-2025 MCV (RBC) [Entitic vol] 88.2 fL 80-94 [facility] Mean corpuscular hemoglobin (MCH) determinationOrdered By: Simone Collins on 07-19-2025 MCH (RBC) [Entitic mass] 29.7 pg 27.0-32.0 [facility] Mean corpuscular hemoglobin concentration (MCHC) determinationOrdered By: Simone Collins on 07-19-2025 MCHC (RBC) [Mass/Vol] 33.6 g/dL 32-36 [facility] Mean platelet volume determi nationOrdered By: Simone Collins on 07-19-2025 Platelet mean volume (Bld) [Entitic vol] 9.6 fL 6.2-12.0 [facility] Monocyte percentageOrdered B y: Simone Collins on 07-19-2025 Monocytes/100 WBC (Bld) 11.1 % High 0-10 [facility] Neutrophil percentageOrdered By: Simone Collins on 07-19-2025 Neutrophils/100 WBC (Bld) 60.8 % 47-70 [facility] Nucleated red blood cell per centageOrdered By: Simone Collins on 07-19-2025 Nucleated RBC/100 WBC (Bld) [Ratio] 0 % 0-5 [facility] Oncology Visit Reporton 10-0 [address] Visit Report Normal [facility] Platelet countOrdered By: Yoon Collins on 07-19-2025 Platelets (Bld) [#/Vol] 199 10*3/uL 150-450 [facility] Potassium measurement (mass/ volume)Ordered By: Simone Collins on 07-19-2025 Potassium (Unsp spec) [Mass/Vol] 3.7 mmol/L 3.3-5.1 [facility] RBC Auto (Bld) [#/Vol]Ordere d By: Simone Collins on 07-19-2025 RBC (Bld) [#/Vol] 3.74 10*6/uL Low 4.6-6.2 [facility] Serum creatinine measurement (mass/volume)Ordered By: Simone Collins on 07-19-2025 Creatinine [Mass/Vol] 0.88 mg/dL 0.70-1.20 [facility] Serum globulin measurementOr dered By: Simone Collins on 07-19-2025 Globulin (S) [Mass/Vol] 2.4 g/dL 2.2-4.2 [facility] Serum glucose measurement (m ass/volume)Ordered By: Simone Collins on 07-19-2025 Glucose [Mass/Vol] 116 mg/dL High 70-99 [facility] Serum or plasma alanine macias otransferase (ALT) measurementOrdered By: Simone Collins on 07-19-2025 ALT [Catalytic activity/Vol] 6 U/L <47 [facility] Serum or plasma albumin shanita urement (mass/volume)Ordered By: Simone Collins on 07-19-2025 Albumin [Mass/Vol] 3.6 g/dL 3.4-4.8 [facility] Serum or plasma albumin/glob ulin mass ratioOrdered By: Simone Collins on 07-19-2025 Albumin/Globulin [Mass ratio] 1.5 {ratio} 0.9-2.4 [facility] Serum or plasma alkaline tobin sphatase measurementOrdered By: Simone Collins on 07-19-2025 ALP [Catalytic activity/Vol] 66 U/L 40-129 [facility] Serum or plasma calcium shanita urement (mass/volume)Ordered By: Simone Collins on 07-19-2025 Calcium [Mass/Vol] 8.2 mg/dL 7.6-11.0 [facility] Serum or plasma urea nitroge n measurement (mass/volume)Ordered By: Simone Collins on 10-06-2025 Urea nitrogen [Mass/Vol] 13 mg/dL 4-19 [facility] Sodium levelOrdered By: Smooth Collins on 07-19-2025 Sodium [Moles/Vol] 135 mmol/L 133-145 [facility] Total proteinOrdered By: John castillo Collins on 07-19-2025 Protein [Mass/Vol] 5.9 g/dL 5.9-8.4 [facility] White blood cell (WBC) count Ordered By: Simone Karina on 07-19-2025 WBC (Bld) [#/Vol] 3.3 10*3/uL Low 4.4-11.0 [facility] CNPNon 07-16-2025 CNPN Telephone ([facility]ST[facility]) -- GLENN PARADA ([id number]) 1945 M Date Time Provider Department 07/16/25 PHOEBE CHAMBERLAIN During your visit today, we recorded the following information about you: Brady Manzanares 07/16/2025 10:04 AM Signed Pt called in Pt is in radiation treatment for throat cancer and is taking motegrity ,wants to know if any other medication that can be taken instead that can be crushed to go threw his tube since the motegrity is coated and can't be crushed Stella Lae RN 07/16/2025 10:09 AM Signed CYNDEE 07/30/24 See message He is due for a follow up Stella Lea RN 07/19/2025 2:[address] Chamberlain Miralax would be the first option. Up to 3-4 times per day. Needs clinic visit to go over details. Spoke to and reviewed instructions above Scheduled for 10/21/25 for appt Allergies As of Date: 07/16/2025 Noted Allergy Reaction ABILIFY (ARIPIPRAZOLE) 04/08/2025 15 [...] be prescribed. Date Reviewed: 04/08/2025 Reviewed by: Aries Sarabia APRN.SR VICE PRESIDENT - Fully Assessed Prescriptions as of 07/19/2025 - propranolol (INDERAL) 20 mg tablet Take [...] and Calcium. 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 Absolute lymphocyte countOrd ered By: Simone Collins on 07-12-2025 Lymphocytes Auto (Unsp spec) [#/Vol] 1.13 10*3/uL 0.83-4.51 [facility] Absolute neutrophil countOrd ered By: Simone Collins on 07-12-2025 Neutrophils (Bld) [#/Vol] 3.1 10*3/uL 2.0-7.7 [facility] Anion gap in Serum or Plasma Ordered By: Simone Collins on 07-12-2025 Anion gap [Moles/Vol] 9 mmol/L 5-15 [facility] Automated lymphocyte count a s percentage of total leukocytesOrdered By: Simoen Collins on 07-12-2025 Lymphocytes/100 WBC Auto (Unsp spec) 23.4 % -41 [facility] BUN/creatinine ratioOrdered By: Simone Collins on 07-12-2025 Urea nitrogen/Creatinine [Mass ratio] 13.0 mg/mg 10-20 [facility] Basophil percentageOrdered B y: Simone Collins on 07-12-2025 Basophils/100 WBC (Bld) 0.8 % 0-1 [facility] Bilirubin, totalOrdered By: Simone Collins on 07-12-2025 Bilirubin [Mass/Vol] 0.48 mg/dL 0.00-1.30 [facility] CBC W/Diff, Automatedon 06-15 Absolute Lymph 1.13 X10 3/uL Normal 0.83-4.51 [facility] Comment on above: Performed By: #### L 100.0100, L500.4050 ####[facility] [address] [place], [address] Absolute Neut 3.1 X10 3/uL Normal 2.0-7.7 [facility] Comment on above: Performed By: #### L 100.0100, L500.4050 ####[facility] [address] [place], [address] Basophils/100 WBC (Bld) 0.8 % Normal 0-1 [facility] Comment on above: Performed By: #### L 100.0100, L500.4050 ####[facility] [address] [place], [address] Eosinophils/100 WBC (Bld) 4.6 % Normal 0-5 [facility] Comment on above: Performed By: #### L 100.0100, L500.4050 ####[facility] [address] [place], [address] Erythrocyte distribution width (RBC) [Ratio] 13.1 % Normal 11.6-14.6 [facility] Comment on above: Performed By: #### L 100.0100, L500.4050 ####[facility] [address] [place], [address] Hematocrit (Bld) [Volume fraction] 32.6 % Low 40-54 [facility] Comment on above: Performed By: #### L 100.0100, L500.4050 ####[facility] [address] [place], [address] Hemoglobin (Bld) [Mass/Vol] 11.3 g/dL Low 13.0-16.5 [facility] Comment on above: Performed By: #### L 100.0100, L500.4050 ####[facility] [address] [place], [address] IG% 0.600 Normal 0.0-0.9 [facility] Comment on above: Result Comment: IG% - Immature Granulocytes (promyelocytes, myelocytes andmetamyelocytes) > 1% indicates that a LEFT SHIFT is Present. Performed By: #### L 100.0100, L500.4050 ####[facility] [address] [place], [address] Lymphocytes/100 WBC (Bld) 23.4 % Normal 19-41 [facility] Comment on above: Performed By: #### L 100.0100, L500.4050 ####[facility] [address] [place], [address] MCH (RBC) [Entitic mass] 30.4 pg Normal 27.0-32.0 [facility] Comment on above: Performed By: #### L 100.0100, L500.4050 ####[facility] [address] [place], [address] MCHC (RBC) [Mass/Vol] 34.7 g/dL Normal 32-36 [facility] Comment on above: Performed By: #### L 100.0100, L500.4050 ####[facility] [address] [place], [address] MCV (RBC) [Entitic vol] 87.6 fL Normal 80-94 [facility] Comment on above: Performed By: #### L 100.0100, L500.4050 ####[facility] [address] [place], [address] Monocytes/100 WBC (Bld) 6.8 % Normal 0-10 [facility] Comment on above: Performed By: #### L 100.0100, L500.4050 ####[facility] [address] [place], [address] Neutrophils/100 WBC (Bld) 63.8 % Normal 47-70 [facility] Comment on above: Performed By: #### L 100.0100, L500.4050 ####[facility] [address] [place], [address] Nucleated RBC (Bld) [#/Vol] 0 10*3/uL Normal 0-5 [facility] Comment on above: Performed By: #### L 100.0100, L500.4050 ####[facility] [address] [place], [address] Platelet mean volume (Bld) [Entitic vol] 10.0 fL Normal 6.2-12.0 [facility] Comment on above: Performed By: #### L 100.0100, L500.4050 ####[facility] [address] [place], [address] Platelets (Bld) [#/Vol] 216 10*3/uL Normal 150-450 [facility] Comment on above: Performed By: #### L 100.0100, L500.4050 ####[facility] [address] [place], [address] RBC (Bld) [#/Vol] 3.72 10*6/uL Low 4.6-6.2 [facility] Comment on above: Performed By: #### L 100.0100, L500.4050 ####[facility] [address] [place], [address] RDW SD 41.6 fl Normal 35.1-43.9 [facility] Comment on above: Performed By: #### L 100.0100, L500.4050 ####[facility] [address] [place], [address] WBC (Bld) [#/Vol] 4.8 10*3/uL Normal 4.4-11.0 [facility] Comment on above: Performed By: #### L 100.0100, L500.4050 ####[facility] [address] [place], [address] Carbon dioxide, total [Moles /volume] in Central venous bloodOrdered By: Simone Collins on 07-12-2025 CO2 [Moles/Vol] 23.0 mmol/L 21.0-32.0 [facility] Chloride assayOrdered By: Yoon Collins on 07-12-2025 Chloride [Moles/Vol] 102 mmol/L 98-108 [facility] Comprehensive Metabolic Prof ilon 07-12-2025 Albumin [Mass/Vol] 3.4 g/dL Normal 3.4-4.8 [facility] Comment on above: Performed By: #### L 100.0100, L500.4050 ####[facility] [address] [place], [address] Albumin/Globulin [Mass ratio] 1.5 {ratio} Normal 0.9-2.4 [facility] Comment on above: Performed By: #### L 100.0100, L500.4050 ####[facility] [address] [place], [address] ALK PHOS 66 U/L Normal 40-129 [facility] Comment on above: Performed By: #### L 100.0100, L500.4050 ####[facility] [address] [place], [address] ALT [Catalytic activity/Vol] U/L Normal <=46 [facility] Comment on above: Performed By: #### L 100.0100, L500.4050 ####[facility] [address] [place], [address] AST [Catalytic activity/Vol] 21 U/L Normal <=37 [facility] Comment on above: Performed By: #### L 100.0100, L500.4050 ####[facility] [address] [place], [address] Bilirubin [Mass/Vol] 0.48 mg/dL Normal 0.00-1.30 [facility] Comment on above: Performed By: #### L 100.0100, L500.4050 ####[facility] [address] [place], [address] BUN/CRE 13.0 RATIO Normal 10-20 [facility] Comment on above: Performed By: #### L 100.0100, L500.4050 ####[facility] [address] [place], [address] Calcium [Mass/Vol] 8.4 mg/dL Normal 7.6-11.0 [facility] Comment on above: Performed By: #### L 100.0100, L500.4050 ####[facility] [address] [place], [address] Chloride [Moles/Vol] 102 mmol/L Normal 98-108 [facility] Comment on above: Performed By: #### L 100.0100, L500.4050 ####[facility] [address] [place], [address] CO2 [Moles/Vol] 23.0 mmol/L Normal 21.0-32.0 [facility] Comment on above: Performed By: #### L 100.0100, L500.4050 ####[facility] [address] [place], [address] Creatinine [Mass/Vol] 0.82 mg/dL Normal 0.70-1.20 [facility] Comment on above: Performed By: #### L 100.0100, L500.4050 ####[facility] [address] [place], [address] ECRCL 68.35 ml/min Normal 50-250 [facility] Comment on above: Performed By: #### L 100.0100, L500.4050 ####[facility] [address] [place], [address] GAP 9 Normal 5-15 [facility] Comment on above: Performed By: #### L 100.0100, L500.4050 ####[facility] [address] [place], [address] GFR/1.73 sq M.predicted among non-blacks MDRD (S/P/Bld) [Vol rate/Area] 88 mL/min/{1.73_m2} Normal >60 [facility] Comment on above: Result Comment: mL/m in/1.73m2 CKD-EPI Creatinine Equation (2020) Performed By: #### L 100.0100, L500.4050 ####[facility] [address] [place], [address] Globulin (S) [Mass/Vol] 2.4 g/dL Normal 2.2-4.2 [facility] Comment on above: Performed By: #### L 100.0100, L500.4050 ####[facility] [address] [place], [address] Glucose [Mass/Vol] 163 mg/dL High 70-99 [facility] Comment on above: Performed By: #### L 100.0100, L500.4050 ####[facility] [address] [place], [address] Potassium [Moles/Vol] 3.6 mmol/L Normal 3.3-5.1 [facility] Comment on above: Performed By: #### L 100.0100, L500.4050 ####[facility] [address] [place], [address] Sodium [Moles/Vol] 134 mmol/L Normal 133-145 [facility] Comment on above: Performed By: #### L 100.0100, L500.4050 ####[facility] [address] [place], [address] T PROT 5.8 g/dL Low 5.9-8.4 [facility] Comment on above: Performed By: #### L 100.0100, L500.4050 ####[facility] [address] [place], [address] Urea nitrogen [Mass/Vol] 11 mg/dL Normal 4-19 [facility] Comment on above: Performed By: #### L 100.0100, L500.4050 ####[facility] [address] [place], [address] Eosinophil percentageOrdered By: Simone Collins on 07-12-2025 Eosinophils/100 WBC (Bld) 4.6 % 0-5 [facility] Erythrocyte distribution wid th ratioOrdered By: Simone Collins on 07-12-2025 Erythrocyte distribution width (RBC) [Ratio] 13.1 % 11.6-14.6 [facility] Erythrocyte distribution wid th standard deviationOrdered By: Simone Collins on 07-12-2025 Erythrocyte distribution width (RBC) [Ratio] 41.6 fl 35.1-43.9 [facility] Glomerular filtration rate ( GFR) estimation/1.73 sq m using serum, plasma, or whole bOrdered By: Simone Collins on 07-12-2025 GFR/1.73 sq M.predicted among non-blacks MDRD (S/P/Bld) [Vol rate/Area] 88 mL/min/{1.73_m2} >60 [facility] Comment on above: mL/min/1.73m2 CKD-EP I Creatinine Equation (2020) Hematocrit Auto (Bld) [Volum e fraction]Ordered By: Simone Collins on 07-12-2025 Hematocrit (Bld) [Volume fraction] 32.6 % Low 40-54 [facility] Hemoglobin measurementOrdere d By: Simone Collins on 07-12-2025 Hemoglobin (Bld) [Mass/Vol] 11.3 g/dL Low 13.0-16.5 [facility] Immature granulocytes/100 WB C Auto (Bld)Ordered By: Simone Collins on 07-12-2025 Immature granulocytes/100 WBC (Bld) 0.600 % 0.0-0.9 [facility] Comment on above: IG% - Immature Granu locytes (promyelocytes, myelocytes and metamyelocytes) > 1% indicates that a LEFT SHIFT is Present. Laboratory - Chemistry and C hemistry - challengeOrdered By: Simone Collins on 07-12-2025 AST [Catalytic activity/Vol] 21 U/L <38 [facility] MCV (mean corpuscular volume ) determinationOrdered By: Simone Collins on 07-12-2025 MCV (RBC) [Entitic vol] 87.6 fL 80-94 [facility] Mean corpuscular hemoglobin (MCH) determinationOrdered By: Simone Collins on 07-12-2025 MCH (RBC) [Entitic mass] 30.4 pg 27.0-32.0 [facility] Mean corpuscular hemoglobin concentration (MCHC) determinationOrdered By: Simone oCllins on 07-12-2025 MCHC (RBC) [Mass/Vol] 34.7 g/dL 32-36 [facility] Mean platelet volume determi nationOrdered By: Simone Collins on 07-12-2025 Platelet mean volume (Bld) [Entitic vol] 10.0 fL 6.2-12.0 [facility] Monocyte percentageOrdered B y: Simone Collins on 07-12-2025 Monocytes/100 WBC (Bld) 6.8 % 0-10 [facility] Neutrophil percentageOrdered By: Simone Collins on 07-12-2025 Neutrophils/100 WBC (Bld) 63.8 % 47-70 [facility] Nucleated red blood cell per centageOrdered By: Simone Collins on 07-12-2025 Nucleated RBC/100 WBC (Bld) [Ratio] 0 % 0-5 [facility] Oncology Visit Reporton 06-[address] [facility] Platelet countOrdered By: Yoon Collins on 07-12-2025 Platelets (Bld) [#/Vol] 216 10*3/uL 150-450 [facility] Potassium measurement (mass/ volume)Ordered By: Simone Collins on 07-12-2025 Potassium (Unsp spec) [Mass/Vol] 3.6 mmol/L 3.3-5.1 [facility] RBC Auto (Bld) [#/Vol]Ordere d By: Simone Collins on 07-12-2025 RBC (Bld) [#/Vol] 3.72 10*6/uL Low 4.6-6.2 [facility] Serum creatinine measurement (mass/volume)Ordered By: Simone Collins on 07-12-2025 Creatinine [Mass/Vol] 0.82 mg/dL 0.70-1.20 [facility] Serum globulin measurementOr dered By: Simone Collins on 07-12-2025 Globulin (S) [Mass/Vol] 2.4 g/dL 2.2-4.2 [facility] Serum glucose measurement (m ass/volume)Ordered By: Simone Collins on 07-12-2025 Glucose [Mass/Vol] 163 mg/dL High 70-99 [facility] Serum or plasma alanine macias otransferase (ALT) measurementOrdered By: Simone Collins on 07-12-2025 ALT [Catalytic activity/Vol] U/L <47 [facility] Serum or plasma albumin shanita urement (mass/volume)Ordered By: Simone Collins on 07-12-2025 Albumin [Mass/Vol] 3.4 g/dL 3.4-4.8 [facility] Serum or plasma albumin/glob ulin mass ratioOrdered By: Simone Collins on 07-12-2025 Albumin/Globulin [Mass ratio] 1.5 {ratio} 0.9-2.4 [facility] Serum or plasma alkaline tobin sphatase measurementOrdered By: Simone Collins on 07-12-2025 ALP [Catalytic activity/Vol] 66 U/L 40-129 [facility] Serum or plasma calcium shanita urement (mass/volume)Ordered By: Simone Collins on 07-12-2025 Calcium [Mass/Vol] 8.4 mg/dL 7.6-11.0 [facility] Serum or plasma urea nitroge n measurement (mass/volume)Ordered By: Simone Collins on 07-12-2025 Urea nitrogen [Mass/Vol] 11 mg/dL 4-19 [facility] Sodium levelOrdered By: Smooth bernarda Collins on 07-12-2025 Sodium [Moles/Vol] 134 mmol/L 133-145 [facility] Surgery Visit Reporton 07-12 Surgery Visit Report Normal [facility] Total proteinOrdered By: John Collins on 07-12-2025 Protein [Mass/Vol] 5.8 g/dL Low 5.9-8.4 [facility] White blood cell (WBC) count Ordered By: Simone Collins on 07-12-2025 WBC (Bld) [#/Vol] 4.8 10*3/uL 4.4-11.0 [facility] Modified Barium Swallow Stud yon 07-08-2025 Modified Barium Swallow Study Normal [facility] Radiation Oncology Visiton 0 07-07-2025 [address]iation On[address] Visit Normal [facility] CBC W/Diff, Automatedon 06-15 Absolute Lymph 1.89 X10 3/uL Normal 0.83-4.51 [facility] Comment on above: Performed By: #### L 100.0100, L500.4050 ####[facility] [address] [place], [address] Absolute Neut 5.8 X10 3/uL Normal 2.0-7.7 [facility] Comment on above: Performed By: #### L 100.0100, L500.4050 ####[facility] [address] [place], [address] Basophils/100 WBC (Bld) 0.5 % Normal 0-1 [facility] Comment on above: Performed By: #### L 100.0100, L500.4050 ####[facility] [address] [place], [address] Eosinophils/100 WBC (Bld) 3.2 % Normal 0-5 [facility] Comment on above: Performed By: #### L 100.0100, L500.4050 ####[facility] [address] [place], [address] Erythrocyte distribution width (RBC) [Ratio] 13.5 % Normal 11.6-14.6 [facility] Comment on above: Performed By: #### L 100.0100, L500.4050 ####[facility] [address] [place], [address] Hematocrit (Bld) [Volume fraction] 34.9 % Low 40-54 [facility] Comment on above: Performed By: #### L 100.0100, L500.4050 ####[facility] [address] [place], [address] Hemoglobin (Bld) [Mass/Vol] 11.6 g/dL Low 13.0-16.5 [facility] Comment on above: Performed By: #### L 100.0100, L500.4050 ####[facility] [address] [place], [address] IG% 0.300 Normal 0.0-0.9 [facility] Comment on above: Result Comment: IG% - Immature Granulocytes (promyelocytes, myelocytes andmetamyelocytes) > 1% indicates that a LEFT SHIFT is Present. Performed By: #### L 100.0100, L500.4050 ####[facility] [address] [place], [address] Lymphocytes/100 WBC (Bld) 21.7 % Normal 19-41 [facility] Comment on above: Performed By: #### L 100.0100, L500.4050 ####[facility] [address] [place], [address] MCH (RBC) [Entitic mass] 29.6 pg Normal 27.0-32.0 [facility] Comment on above: Performed By: #### L 100.0100, L500.4050 ####[facility] [address] [place], [address] MCHC (RBC) [Mass/Vol] 33.2 g/dL Normal 32-36 [facility] Comment on above: Performed By: #### L 100.0100, L500.4050 ####[facility] [address] [place], [address] MCV (RBC) [Entitic vol] 89.0 fL Normal 80-94 [facility] Comment on above: Performed By: #### L 100.0100, L500.4050 ####[facility] [address] [place], [address] Monocytes/100 WBC (Bld) 7.5 % Normal 0-10 [facility] Comment on above: Performed By: #### L 100.0100, L500.4050 ####[facility] [address] [place], [address] Neutrophils/100 WBC (Bld) 66.8 % Normal 47-70 [facility] Comment on above: Performed By: #### L 100.0100, L500.4050 ####[facility] [address] [place], [address] Nucleated RBC (Bld) [#/Vol] 0 10*3/uL Normal 0-5 [facility] Comment on above: Performed By: #### L 100.0100, L500.4050 ####[facility] [address] [place], [address] Platelet mean volume (Bld) [Entitic vol] 9.6 fL Normal 6.2-12.0 [facility] Comment on above: Performed By: #### L 100.0100, L500.4050 ####[facility] [address] [place], [address] Platelets (Bld) [#/Vol] 248 10*3/uL Normal 150-450 [facility] Comment on above: Performed By: #### L 100.0100, L500.4050 ####[facility] [address] [place], [address] RBC (Bld) [#/Vol] 3.92 10*6/uL Low 4.6-6.2 [facility] Comment on above: Performed By: #### L 100.0100, L500.4050 ####[facility] [address] [place], [address] RDW SD 44.0 fl High 35.1-43.9 [facility] Comment on above: Performed By: #### L 100.0100, L500.4050 ####[facility] [address] [place], [address] WBC (Bld) [#/Vol] 8.7 10*3/uL Normal 4.4-11.0 [facility] Comment on above: Performed By: #### L 100.0100, L500.4050 ####[facility] [address] [place], [address] Comprehensive Metabolic Prof [facility] 07-05-2025 Albumin [Mass/Vol] 3.5 g/dL Normal 3.4-4.8 [facility] Comment on above: Performed By: #### L 100.0100, L500.4050 ####[facility] [address] [place], [address] Albumin/Globulin [Mass ratio] 1.4 {ratio} Normal 0.9-2.4 [facility] Comment on above: Performed By: #### L 100.0100, L500.4050 ####[facility] [address] [place], [address] ALK PHOS 63 U/L Normal 40-129 [facility] Comment on above: Performed By: #### L 100.0100, L500.4050 ####[facility] [address] [place], [address] ALT [Catalytic activity/Vol] U/L Normal <=46 [facility] Comment on above: Performed By: #### L 100.0100, L500.4050 ####[facility] [address] [place], [address] AST [Catalytic activity/Vol] 14 U/L Normal <=37 [facility] Comment on above: Performed By: #### L 100.0100, L500.4050 ####[facility] [address] [place], [address] Bilirubin [Mass/Vol] 0.53 mg/dL Normal 0.00-1.30 [facility] Comment on above: Performed By: #### L 100.0100, L500.4050 ####[facility] [address] [place], [address] BUN/CRE 16.6 RATIO Normal 10-20 [facility] Comment on above: Performed By: #### L 100.0100, L500.4050 ####[facility] [address] [place], [address] Calcium [Mass/Vol] 8.5 mg/dL Normal 7.6-11.0 [facility] Comment on above: Performed By: #### L 100.0100, L500.4050 ####[facility] [address] [place], [address] Chloride [Moles/Vol] 103 mmol/L Normal 98-108 [facility] Comment on above: Performed By: #### L 100.0100, L500.4050 ####[facility] [address] [place], [address] CO2 [Moles/Vol] 23.2 mmol/L Normal 21.0-32.0 [facility] Comment on above: Performed By: #### L 100.0100, L500.4050 ####[facility] [address] [place], [address] Creatinine [Mass/Vol] 0.99 mg/dL Normal 0.70-1.20 [facility] Comment on above: Performed By: #### L 100.0100, L500.4050 ####[facility] [address] [place], [address] ECRCL 56.62 ml/min Normal 50-250 [facility] Comment on above: Performed By: #### L 100.0100, L500.4050 ####[facility] [address] [place], [address] GAP 11 Normal 5-15 [facility] Comment on above: Performed By: #### L 100.0100, L500.4050 ####[facility] [address] [place], [address] GFR/1.73 sq M.predicted among non-blacks MDRD (S/P/Bld) [Vol rate/Area] 77 mL/min/{1.73_m2} Normal >60 [facility] Comment on above: Result Comment: mL/m in/1.73m2 CKD-EPI Creatinine Equation (2020) Performed By: #### L 100.0100, L500.4050 ####[facility] [address] [place], [address] Globulin (S) [Mass/Vol] 2.4 g/dL Normal 2.2-4.2 [facility] Comment on above: Performed By: #### L 100.0100, L500.4050 ####[facility] [address] [place], [address] Glucose [Mass/Vol] 120 mg/dL High 70-99 [facility] Comment on above: Performed By: #### L 100.0100, L500.4050 ####[facility] [address] [place], [address] Potassium [Moles/Vol] 3.4 mmol/L Normal 3.3-5.1 [facility] Comment on above: Performed By: #### L 100.0100, L500.4050 ####[facility] [address] [place], [address] Sodium [Moles/Vol] 137 mmol/L Normal 133-145 [facility] Comment on above: Performed By: #### L 100.0100, L500.4050 ####[facility] [address] [place], [address] T PROT 5.9 g/dL Normal 5.9-8.4 [facility] Comment on above: Performed By: #### L 100.0100, L500.4050 ####[facility] [address] [place], [address] Urea nitrogen [Mass/Vol] 16 mg/dL Normal 4-19 [facility] Comment on above: Performed By: #### L 100.0100, L500.4050 ####[facility] [address] [place], [address] LDHon 07-05-2025 LDH 143 U/L Normal 87-241 [facility] Comment on above: Order Comment: 1 Performed By: #### L 504.2610 ####[facility] [address] [place], [address] Lactate dehydrogenase (LDH) measurementOrdered By: Simone Collins on 07-05-2025 LDH [Catalytic activity/Vol] 143 U/L 87-241 [facility] Oncology Visit Reporton 06-[address] [facility] SP/HP.SP.Tanvir 07-02-2025 SP/HP.SP.EV Normal [facility] Chest 1 View (Portable)on Chest 1 View (Portable) Normal [facility] Discharge Instructionon 06-[address] [facility] EGD Reporton 06-30-[address] [facility] Immunohistochemical Stainson 06-30-[address] [facility] Comment on above: Performed By: #### P IMHI ####[facility] [address] [place], [address] MR/OP.PROVATon 06-30-2025 MR/OP.PROVAT Normal [facility] MR/POSTOP.ANEon 06-30-2025 MR/POSTOP.ANE Normal [facility] MR/ZMRFUNEQ9mu 06-30-2025 MR/POSTOPAN2 Normal [facility] Operative Reporton Operative Report Normal [facility] Absolute lymphocyte countOrd ered By: Simone Collins on 06-28-2025 Lymphocytes Auto (Unsp spec) [#/Vol] 2.83 10*3/uL 0.83-4.51 [facility] Absolute neutrophil countOrd ered By: Simone Collins on 06-28-2025 Neutrophils (Bld) [#/Vol] 4.3 10*3/uL 2.0-7.7 [facility] Anion gap in Serum or Plasma Ordered By: Simone Collins on 06-28-2025 Anion gap [Moles/Vol] 10 mmol/L 02-25 [facility] Automated lymphocyte count a s percentage of total leukocytesOrdered By: Simone Collins on 06-28-2025 Lymphocytes/100 WBC Auto (Unsp spec) 33.9 % [facility] BUN/creatinine ratioOrdered By: Simone Collins on 06-28-2025 Urea nitrogen/Creatinine [Mass ratio] 13.4 mg/mg - [facility] Basophil percentageOrdered B y: Simone Collins on 06-28-2025 Basophils/100 WBC (Bld) 0.6 % 0- [facility] Bilirubin, totalOrdered By: Simone Collins on 06-28-2025 Bilirubin [Mass/Vol] 0.46 mg/dL 0.00-1.30 [facility] CBC W/Diff, Automatedon 06-14 Absolute Lymph 2.83 X10 3/uL Normal 0.83-4.51 [facility] Comment on above: Performed By: #### L 500.4050, L100.0100 ####[facility] [address] [place], [address] Absolute Neut 4.3 X10 3/uL Normal 2.0-7.7 [facility] Comment on above: Performed By: #### L 500.4050, L100.0100 ####[facility] [address] [place], [address] Basophils/100 WBC (Bld) 0.6 % Normal 0-1 [facility] Comment on above: Performed By: #### L 500.4050, L100.0100 ####[facility] [address] [place], [address] Eosinophils/100 WBC (Bld) 3.9 % Normal 0-5 [facility] Comment on above: Performed By: #### L 500.4050, L100.0100 ####[facility] [address] [place], [address] Erythrocyte distribution width (RBC) [Ratio] 13.2 % Normal 11.6-14.6 [facility] Comment on above: Performed By: #### L 500.4050, L100.0100 ####[facility] [address] [place], [address] Hematocrit (Bld) [Volume fraction] 36.4 % Low 40-54 [facility] Comment on above: Performed By: #### L 500.4050, L100.0100 ####[facility] [address] [place], [address] Hemoglobin (Bld) [Mass/Vol] 12.1 g/dL Low 13.0-16.5 [facility] Comment on above: Performed By: #### L 500.4050, L100.0100 ####[facility] [address] [place], [address] IG% 0.400 Normal 0.0-0.9 [facility] Comment on above: Result Comment: IG% - Immature Granulocytes (promyelocytes, myelocytes andmetamyelocytes) > 1% indicates that a LEFT SHIFT is Present. Performed By: #### L 500.4050, L100.0100 ####[facility] [address] [place], [address] Lymphocytes/100 WBC (Bld) 33.9 % Normal 19-41 [facility] Comment on above: Performed By: #### L 500.4050, L100.0100 ####[facility] [address] [place], [address] MCH (RBC) [Entitic mass] 30.0 pg Normal 27.0-32.0 [facility] Comment on above: Performed By: #### L 500.4050, L100.0100 ####[facility] [address] [place], [address] MCHC (RBC) [Mass/Vol] 33.2 g/dL Normal 32-36 [facility] Comment on above: Performed By: #### L 500.4050, L100.0100 ####[facility] [address] [place], [address] MCV (RBC) [Entitic vol] 90.1 fL Normal 80-94 [facility] Comment on above: Performed By: #### L 500.4050, L100.0100 ####[facility] [address] [place], [address] Monocytes/100 WBC (Bld) 9.9 % Normal 0-10 [facility] Comment on above: Performed By: #### L 500.4050, L100.0100 ####[facility] [address] [place], [address] Neutrophils/100 WBC (Bld) 51.3 % Normal 47-70 [facility] Comment on above: Performed By: #### L 500.4050, L100.0100 ####[facility] [address] [place], [address] Nucleated RBC (Bld) [#/Vol] 0 10*3/uL Normal 0-5 [facility] Comment on above: Performed By: #### L 500.4050, L100.0100 ####[facility] [address] [place], [address] Platelet mean volume (Bld) [Entitic vol] 9.1 fL Normal 6.2-12.0 [facility] Comment on above: Performed By: #### L 500.4050, L100.0100 ####[facility] [address] [place], [address] Platelets (Bld) [#/Vol] 262 10*3/uL Normal 150-450 [facility] Comment on above: Performed By: #### L 500.4050, L100.0100 ####[facility] [address] [place], [address] RBC (Bld) [#/Vol] 4.04 10*6/uL Low 4.6-6.2 [facility] Comment on above: Performed By: #### L 500.4050, L100.0100 ####[facility] [address] [place], [address] RDW SD 43.8 fl Normal 35.1-43.9 [facility] Comment on above: Performed By: #### L 500.4050, L100.0100 ####[facility] [address] [place], [address] WBC (Bld) [#/Vol] 8.4 10*3/uL Normal 4.4-11.0 [facility] Comment on above: Performed By: #### L 500.4050, L100.0100 ####[facility] [address] [place], [address] Carbon dioxide, total [Moles /volume] in Central venous bloodOrdered By: Simone Collins on 06-28-2025 CO2 [Moles/Vol] 24.9 mmol/L 21.0-32.0 [facility] Chloride assayOrdered By: Yoon Collins on 06-28-2025 Chloride [Moles/Vol] 102 mmol/L 98-108 [facility] Comprehensive Metabolic Prof ilon 06-28-2025 Albumin [Mass/Vol] 3.7 g/dL Normal 3.4-4.8 [facility] Comment on above: Performed By: #### L 500.4050, L100.0100 ####[facility] [address] [place], [address] Albumin/Globulin [Mass ratio] 1.3 {ratio} Normal 0.9-2.4 [facility] Comment on above: Performed By: #### L 500.4050, L100.0100 ####[facility] [address] [place], [address] ALK PHOS 71 U/L Normal 40-129 [facility] Comment on above: Performed By: #### L 500.4050, L100.0100 ####[facility] [address] [place], [address] ALT [Catalytic activity/Vol] 5 U/L Normal <=46 [facility] Comment on above: Performed By: #### L 500.4050, L100.0100 ####[facility] [address] [place], [address] AST [Catalytic activity/Vol] 17 U/L Normal <=37 [facility] Comment on above: Performed By: #### L 500.4050, L100.0100 ####[facility] [address] [place], [address] Bilirubin [Mass/Vol] 0.46 mg/dL Normal 0.00-1.30 [facility] Comment on above: Performed By: #### L 500.4050, L100.0100 ####[facility] [address] [place], [address] BUN/CRE 13.4 RATIO Normal 10-20 [facility] Comment on above: Performed By: #### L 500.4050, L100.0100 ####[facility] [address] [place], [address] Calcium [Mass/Vol] 9.0 mg/dL Normal 7.6-11.0 [facility] Comment on above: Performed By: #### L 500.4050, L100.0100 ####[facility] [address] [place], [address] Chloride [Moles/Vol] 102 mmol/L Normal 98-108 [facility] Comment on above: Performed By: #### L 500.4050, L100.0100 ####[facility] [address] [place], [address] CO2 [Moles/Vol] 24.9 mmol/L Normal 21.0-32.0 [facility] Comment on above: Performed By: #### L 500.4050, L100.0100 ####[facility] [address] [place], [address] Creatinine [Mass/Vol] 1.17 mg/dL Normal 0.70-1.20 [facility] Comment on above: Performed By: #### L 500.4050, L100.0100 ####[facility] [address] [place], [address] ECRCL 47.91 ml/min Low 50-250 [facility] Comment on above: Performed By: #### L 500.4050, L100.0100 ####[facility] [address] [place], [address] GAP 10 Normal 5-15 [facility] Comment on above: Performed By: #### L 500.4050, L100.0100 ####[facility] [address] [place], [address] GFR/1.73 sq M.predicted among non-blacks MDRD (S/P/Bld) [Vol rate/Area] 63 mL/min/{1.73_m2} Normal >60 [facility] Comment on above: Result Comment: mL/m in/1.73m2 CKD-EPI Creatinine Equation (2020) Performed By: #### L 500.4050, L100.0100 ####[facility] [address] [place], [address] Globulin (S) [Mass/Vol] 2.8 g/dL Normal 2.2-4.2 [facility] Comment on above: Performed By: #### L 500.4050, L100.0100 ####[facility] [address] [place], [address] Glucose [Mass/Vol] 101 mg/dL High 70-99 [facility] Comment on above: Performed By: #### L 500.4050, L100.0100 ####[facility] [address] [place], [address] Potassium [Moles/Vol] 3.7 mmol/L Normal 3.3-5.1 [facility] Comment on above: Performed By: #### L 500.4050, L100.0100 ####[facility] [address] [place], [address] Sodium [Moles/Vol] 137 mmol/L Normal 133-145 [facility] Comment on above: Performed By: #### L 500.4050, L100.0100 ####[facility] [address] [place], [address] T PROT 6.5 g/dL Normal 5.9-8.4 [facility] Comment on above: Performed By: #### L 500.4050, L100.0100 ####[facility] [address] [place], [address] Urea nitrogen [Mass/Vol] 16 mg/dL Normal 4-19 [facility] Comment on above: Performed By: #### L 500.4050, L100.0100 ####[facility] [address] [place], [address] Eosinophil percentageOrdered By: Simone Collins on 06-28-2025 Eosinophils/100 WBC (Bld) 3.9 % 0-5 [facility] Erythrocyte distribution wid th ratioOrdered By: Simone Collins on 06-28-2025 Erythrocyte distribution width (RBC) [Ratio] 13.2 % 11.6-14.6 [facility] Erythrocyte distribution wid th standard deviationOrdered By: Simone Collins on 06-28-2025 Erythrocyte distribution width (RBC) [Ratio] 43.8 fl 35.1-43.9 [facility] Glomerular filtration rate ( GFR) estimation/1.73 sq m using serum, plasma, or whole bOrdered By: Simone Collins on 06-28-2025 GFR/1.73 sq M.predicted among non-blacks MDRD (S/P/Bld) [Vol rate/Area] 63 mL/min/{1.73_m2} >60 [facility] Comment on above: mL/min/1.73m2 CKD-EP I Creatinine Equation (2020) Hematocrit Auto (Bld) [Volum e fraction]Ordered By: Simone Collins on 06-28-2025 Hematocrit (Bld) [Volume fraction] 36.4 % Low 40-54 [facility] Hemoglobin measurementOrdere d By: Simone Collins on 06-28-2025 Hemoglobin (Bld) [Mass/Vol] 12.1 g/dL Low 13.0-16.5 [facility] Immature granulocytes/100 WB C Auto (Bld)Ordered By: Simone Collins on 06-28-2025 Immature granulocytes/100 WBC (Bld) 0.400 % 0.0-0.9 [facility] Comment on above: IG% - Immature Granu locytes (promyelocytes, myelocytes and metamyelocytes) > 1% indicates that a LEFT SHIFT is Present. Laboratory - Chemistry and C hemistry - challengeOrdered By: Simone Collins on 06-28-2025 AST [Catalytic activity/Vol] 17 U/L <38 [facility] MCV (mean corpuscular volume ) determinationOrdered By: Simone Collins on 06-28-2025 MCV (RBC) [Entitic vol] 90.1 fL 80-94 [facility] Mean corpuscular hemoglobin (MCH) determinationOrdered By: Simone Collins on 06-28-2025 MCH (RBC) [Entitic mass] 30.0 pg 27.0-32.0 [facility] Mean corpuscular hemoglobin concentration (MCHC) determinationOrdered By: Simone Collins on 06-28-2025 MCHC (RBC) [Mass/Vol] 33.2 g/dL 32-36 [facility] Mean platelet volume determi nationOrdered By: Simone Collins on 06-28-2025 Platelet mean volume (Bld) [Entitic vol] 9.1 fL 6.2-12.0 [facility] Monocyte percentageOrdered B y: Simone Collins on 06-28-2025 Monocytes/100 WBC (Bld) 9.9 % 0-10 [facility] Neutrophil percentageOrdered By: Simone Collins on 06-28-2025 Neutrophils/100 WBC (Bld) 51.3 % 47-70 [facility] Nucleated red blood cell per centageOrdered By: Simone Collins on 06-28-2025 Nucleated RBC/100 WBC (Bld) [Ratio] 0 % 0-5 [facility] Oncology Visit Reporton 06-14 On[address] Visit Report Normal [facility] Platelet countOrdered By: Yoon Collins on 06-28-2025 Platelets (Bld) [#/Vol] 262 10*3/uL 150-450 [facility] Potassium measurement (mass/ volume)Ordered By: Simone Collins on 06-28-2025 Potassium (Unsp spec) [Mass/Vol] 3.7 mmol/L 3.3-5.1 [facility] RBC Auto (Bld) [#/Vol]Ordere d By: Simone Collins on 06-28-2025 RBC (Bld) [#/Vol] 4.04 10*6/uL Low 4.6-6.2 [facility] Serum creatinine measurement (mass/volume)Ordered By: Simone Collisn on 06-28-2025 Creatinine [Mass/Vol] 1.17 mg/dL 0.70-1.20 [facility] Serum globulin measurementOr dered By: Simone Collins on 06-28-2025 Globulin (S) [Mass/Vol] 2.8 g/dL 2.2-4.2 [facility] Serum glucose measurement (m ass/volume)Ordered By: Simone Collins on 06-28-2025 Glucose [Mass/Vol] 101 mg/dL High 70-99 [facility] Serum or plasma alanine macias otransferase (ALT) measurementOrdered By: Simone Collins on 06-28-2025 ALT [Catalytic activity/Vol] 5 U/L <47 [facility] Serum or plasma albumin shanita urement (mass/volume)Ordered By: Simone Collins on 06-28-2025 Albumin [Mass/Vol] 3.7 g/dL 3.4-4.8 [facility] Serum or plasma albumin/glob ulin mass ratioOrdered By: Simone Collins on 06-28-2025 Albumin/Globulin [Mass ratio] 1.3 {ratio} 0.9-2.4 [facility] Serum or plasma alkaline tobin sphatase measurementOrdered By: Simone Collins on 06-28-2025 ALP [Catalytic activity/Vol] 71 U/L 40-129 [facility] Serum or plasma calcium shanita urement (mass/volume)Ordered By: Simone Collins on 06-28-2025 Calcium [Mass/Vol] 9.0 mg/dL 7.6-11.0 [facility] Serum or plasma urea nitroge n measurement (mass/volume)Ordered By: Simone Collins on 06-28-2025 Urea nitrogen [Mass/Vol] 16 mg/dL 4-19 [facility] Sodium levelOrdered By: Smooth Collins on 06-28-2025 Sodium [Moles/Vol] 137 mmol/L 133-145 [facility] Total proteinOrdered By: John chong Karina on 06-28-2025 Protein [Mass/Vol] 6.5 g/dL 5.9-8.4 [facility] White blood cell (WBC) count Ordered By: Simone Karina on 06-28-2025 WBC (Bld) [#/Vol] 8.4 10*3/uL 4.4-11.0 [facility] CNPNon 06-25-2025 CNPN Telephone (RADHAN) -- GLENN PARADA ([id number]) 1945 M Date Time Provider Department 06/25/25 ARIES SARABIA During your visit today, we recorded the following information about you: Jael Ch RN 06/25/2025 3:03 PM Signed Voicemail received June 24, 2025 0830 spouse calling to report 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 Patient had complaints of numbness [...] and port placement will be done at [facility]. ENT is [facility] provider. Aries Sarabia APRN.SR VICE PRESIDENT 06/29/2025 7:23 PM Signed I called and spoke with his as [...] can help out with in the meantime. Aries Sarabia APRN-SR VICE PRESIDENT Allergies As of Date: 06/25/2025 Noted Allergy Reaction ABILIFY (ARIPIPRAZOLE) 04/08/2025 15 [...] be prescribed. Date Reviewed: 04/08/2025 Reviewed by: Aries Sarabia APRN.SR VICE PRESIDENT - Fully Assessed Reason for Visit: Patient Update [1234] Prescriptions as of 06/29/2025 - propranolol (INDERAL) 20 mg tablet Take [...] and Calcium. Problem List As Of Date 06/25/2025 Noted Resolved Gastroesophageal reflux disease [K21.9] 09/27/2023 Diagnosed: 12/19/2023 Parkinson's disease without dyskinesia or fluct*03/17/2024 C (more content not included)... Normal [facility] MR/PAT.ANEon 06-24-2025 MR/PAT.PO Normal [facility] Oncology Visit Reporton Oncology Visit Report Normal [facility] Surgery Visit Reporton 06-21 Surgery Visit Report Normal [facility] Positron emission tomography scan reportOrdered By: Russell Bellamy on 06-18-2025 PT Unspecified body region [facility] Imaging Services [address] [place] [address] PET/CT Tumor Base -Thigh Init MR#: [id number] Acct: [id number] Name: GLENN PARADA Rep #: [id number] : 1945 M 80 From: Danilo Bellamy MD PCP: Dr. Eloina Chi MD Status: REG CL I Study:PET/CT Tumor Base -Thigh Init Date of E xam: 06/15/25 Exam# [id number] Ordering Dr: Thad Siegel MD PROCEDURE: PET/CT TUMOR BASE -THIGH INIT [...] 5. Other findings as noted. [id number] CC: Reta Siegel MD; Dr. Eloina Chi MD ~ Batter Out: Signed [facility] Work Phone: Radiation Oncology Visiton 0 06-17-[address]25 [address] Normal [facility] PET/CT Tumor Base -Thigh Ini ton 06-15-2025 PET/CT Tumor Base -Thigh Init Normal [facility] Telephone Encounteron 2024 Extension Agent Authentication Interface Message Text Error Normal The Project [employer] Tumor Board Noteon Extension Agent Authentication Interface Message Text Cancer Type: General [...] Eligibility for Supportive Care Services Discussed Yes CONTRACT ENGINEER Clinical Trial Eligibility Discussed NA Treatment Plan MINERAL ECONOMIST Multidisciplinary Team in Attendance at Tumor Board Radiology - Yes Medical Oncology- Yes Pathology- Yes Radiation Oncology- Yes Surgery- Yes Tumor Board Recommendations Definitive MINERAL ECONOMIST NCCN Requirement NCCN Requirement Fulfilled? Yes The above recommendations were based on NCCN guidelines, as well as consideration of current national standards and review of the literature. Normal [facility] PT D/C Summary (1)on 025 PT D/C Summary (1) Normal [facility] Progress Noteson 06-04-2025 Extension Agent Authentication Interface Message Text Documentation: Mode: Telephone Patient Patient Work Phone: Patient Cell Preferred phone: [phone] Consent: I confirmed patient understanding of the [...] Parkinson's who presents today, 06/04/2025, at [facility] for follow up regarding left oropharyngeal [...] Administered Date(s) Administered COVID-19 Vaccine (12+ yrs, Apica) mRNA, spike protein, LNP, pres. free, 30 mcg/0.3mL dose, lola-sucrose (VPK=190) 06/22/2024 Influenza, injectable, high dose seasonal, trivalent, preservative free (CMU=370) 06/22/2024 Tdap (MOJ=527) 12/26/2024 Pathologic Review: Final Diagnosis A. Oropharyngeal, [...] -Discussed his case with Dr. 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 Guerin's -we will plan for follow up 2-3 months after treatment with me Thank you so much for allowing me to participate in the care of this patient. Please feel free to contact me if you have any questions or concerns. Reta Siegel MD Kiln Worker Department of Otolaryngology - Head and Neck Surgery [facility], [facility] [employer] Pager: [phone] Normal [facility] *SPECIMEN FOR SURGICAL PATHO LOGYOrdered By: Sushant Jean-Baptiste on 06-02-2025 Case Report Surgical Pathology R eport Case: [id number] Authorizing Provider: Reta Siegel MD Collected: 05/28/2025 1407 Ordering Location: [facility] Received: 05/31/2025 1043 Otolaryngology (ENT) Pathologist: Sushant Jean-Baptiste MD Specimen: Oropharyngeal, Left tonsillar lesion [facility] Work Phone: Clinical Information [facility] Work Phone: Final Diagnosis q1qppUTrGVHvx7odOPRp bGFuZz EwMzNcZnRuYmpcdWMxIHtccnRm MQrzoKvbWMZzFNPcCY8wlWhkwZ d7zIwuOOHarcF1gMGcLPhpi5tx CBS2x7axvqonTTEnMWrgYd9vkM AhjIaaUuPzXSZiMVo1yM27ONKo kX6arGUwRFn9YMLlbLEigmJdWf JlUJQgcEPdkRU5CXGpRC4bvkvh OBkfMEaxUTTtugD8KXEjbCGjV8 KsTSTuMR1gsbmaCXT1NLbzQGZf OAZ1JcGwQAUvy4Xrkzl3VjLskI BcLFkusJNaidxpLCJoCfVpLO7t Ph0wm1QyDSO5mheeBHptCPfbWc YxfJ2nk8frwWCsAWctk0yxomFw iAPuUPIxIPTwweCHIvWDH0cRDU ydJTMXBIKBX63KBNTJDCImZ8QW NO0ESLIlW8ZKDPUCNJOEZR1APQ EcKMTwBCLUxO64kt9zdYJ8h3Gr UY3ns2TzwJdeGFhhOOZizWWxoS kwerLwUZdcf9AvS8KrSsWuDUaz cxLmQQXrLfbqizepRRVwCND9ln CcLSOsFOyvMXChQNitNr5fwVEp gXjdPyOjXOJpz1pvdgLYubfnoZ x4l7qpCAWwAdV2eUMnITizY2we fiVehUInRTKxAVa3cO18XWIegQ 4hjBFoPLsauuPpMrG9APmsKMZy IaS0QWCfbQWjVLBdF0qpTTH0TD wfjuNwknt9SXHmeBK5LNZ9JHPf XYIbF4AnSD4fUOMsfWDtIKf9n6 htsKmkHCYfHZC8b7ujXQfbskZt JA2mrk2jpWa4i8hnbqPmMWByXZ ZqoCFZXUJhR3IdnJzgSd5hbIb6 mEwkLfmhMEN4Pnf1ED9ggg36cs p5eCtdNJCzwwuwJnP3USjtWVZe mifnYLe2TDpuVKZjjSL0OULzeX YqB4ZxPQZuKH3bbqs2UEZ4QLys QWXsWxB8BLWeyGVrDJQdjKbwAH cpw944XBI5FaZtCB5eC1Kxv8X1 oZ0jlZKnLFPrrKHoOzJvBUIhau 7obVBbYKdte4TfDMD2ijP3mSGf cKClSBIwDG41Yhksn1HcBrtrMK R5PABoukCru9Slv4jvGvHhizBw F5ivW9RtEXJaQQXrFUOhMcKdrg Gap7Xeg5NpqZRvmOu7d5xwVFXj HLDyzQyce0tfWHU1NEYrX3K3qP Oqz1ebCQxgZQWypMH5egU1WABp xWWtM3DxuQ3oBASsTP8kwni4e1 clSOR1GUspGRLbLoI1iaM0OUQn oNJuPIRskKreWQvga910XEL5Zv FqAAAoj0OuI1RxuPcqF43tbPbh H13iSLYxeYgirM4djOsxnU8ySc BcZnMyNFxxbFxwbGFpblxmMVxm vnHmVLdxdnazULFiJQfjQ0bwQv ZwZNJqoVqqAOkij7IdVANfCVGc MjJccGFyXHBsYWluXGYxXGZzMj BcbGFuZzEwMzNcaGljaFxmMVxk ApPiMBHgYWzyQ6mzSnEoGgPwUR BFbGVjdHJvbmljYWxseSBTaWdu WQUeD1O7XLG2GEDiarWKuULuNH GvWWUivXpuTEUgh08pYBwsSzHk TkEwMP0tnJAnRCWobjngvDDbox grKXldrzN9XUjrarfbUBTpNXdi C4xhYaHkSGFqbZbiWGggi9IjCG WiHICxJqqjtgM2IDbqUXJuQMZ3 tLF6LISoEDCgNFCqNZGbn67ftB t9BHGeraS9E1UyKBN0eQQbAJbe Q59oq0PmKeEhidAveLM5eD3dSA 3iNJYmGANdQg05UKByvGNvqC1p noqlPXMvziXvcMB3HAUtNO6oGP TzQOQ1nHVrDnpfLWblCLhrS39r m6xgAUIjXR5vYLBhJPweEDYoKX ZzMjJcbGFuZzEwMzNcaGljaFxm WTqdYuOaLBMsZPpcO3cfZzMjZn MyMlxwYXJccGFyfX0= [facility] Work Phone: Gross Description w6ngsCYqCDUpvMCsDCRl MVxhbn JeEBLgeEVyI8DflolgVJrhWM4t YB2uvGuafIExaNNsWEOtXmNog0 ucx679dFXbk3ohQIRVjwinzFd4 vUzuO58pv1V4AleoV01kyYHjOQ H2XALhRQOinDJuVSLeNCM5PKCc pLDtX2ldOCRwDO1esnrnIGbjLX mfWORomSI1TLXqyDTvJ5JkMONj UUrmQNYtijr7OfGrEc0cmHZeqN cyMFxwYXJkXHBsYWluXGZzMjAg JN1tQMExsYSwd8i3zB4oMNGnJY QeQa4mz6NbZIL0knehFKwnCnfh YXIgVGhlIHNwZWNpbWVuIGlzIH UtF5PpepWzJMTqfGMqVDnxDCUr m7asY7noDIQsufXxjQ4gtecsbS TqQDhdVWC1yQMiAGDgmXwprcMq uvHfUA9jSYLqXAFuR5AbHDKgZ9 0gUHGtpS8fHVRyWOToCOFfhSBh jJXjhLHrnV2wDYGxZSASYMJpQU SwCPXfDfsaKyHhdB4zo9twkLVr UPtjn7googTlIFIQvCPmy9UcJ5 suBD6mK55wb6sldHYya9CxyFCr eFutdTFshXzvI3Zrcnljo0IugQ FxEZCyJqEyoOoza7FkXR0yPCR9 cmluZyAyLjEgeCAwLjUgeCAwLj LwA55ylF4zWUequaBgNXPjYjLc ZFykGHAvDLQufTDvDRooYHW9Gh 0amHNtEEQzcrC7y9FpYZjoCC9y ZXJrMLSzNQL2KL3sMXvQNT9knJ DzLHVnreCNQ98hgMUilI== [facility] Work Phone: Immunohistochemistry p6leyQOfDHLnoCJrZWC wMVxhbn LpLIPogGDcU0NdtaqpQDnyST6y FI6cvGinqSEwyBSqHWLrYcTzn7 eyf028bBJue2buLUWCzohlcMo5 pIxjK76gj8J7LrhrG5fkPTBaVT MqI8LhHE1hZWOhImu7PMUwJYj3 XHBhcGVydzEyMjQwXHBhcGVyaD O8UZQuYR8ibfjhUKlpPImzIXBi mkL9LWXwmXGuD4OgTCWuYY8bvu ceKJL6BPwgOVYpSAH7PvLbULMa d5Ppjpn2SmLfdOWwSQdupYToph jfGEZlLgJaTF4RNM2SDSsNLM5T FSKUMAHYUrtzN6NRBKhKGldozK HzUBWdBO6vUBXNhaClodQgFVZw fCldpv6hVKjgNULqgEGyACTbSA RtjUmti3B1WEKmuIauRLvjvWSg STGbVyjnFJMvOaFfO0pkSG84Lp OAh5TveGz8FEziVBWzBOXtDqSD t4NfdKk3PIfmRYNeACQ8PjQCf7 AjqEe4VWecPCZcD8yhVSX4p8Mw eXNpbjogTmVnYXRpdmUgXHBhcl peSLYwCpepLADdpNEsPPQkaN4g dyI7RMAvHvZlMBkkEDnajHKiy7 qtl2NuS8cxeYwhCWpzz0UhbR8o ZGU5pNRadnWxyNmlLRMjl2ZbBG HcHHmvb2Qorp7lQAebFOOjv1Dv PGtxmYZjn2skl7GnI1lfwUpzVY adw7XbkM3oALIjCDYuf87aPNlv oe22LIV2o2gvjOQzAZdoMgbkyD HmkwY9FApHATNRGZpWIpGcNK4c FBqPC2UEBDjOJfizJEIoBCJ5OV xkjSvyYhgjpuZanCDaQfNgxY5m m8KhdPvqLOT7ZDy7YJQel81eCK 0dSSH3dZiwEoZkYkRsXCN3p9Bf C8CgCUWbAHdrX40pruHneiHbdE cnn842DVGwHBtlf7raTOXcIBrg y2BrOSkCMCOXIC9EBB3ghXL7WX fSRZUGPWlnDYMiLAO4DXogqDrs UarzmoUxeTFoMeOupQ9zxJuwgW 5cZnMyMCAuXHBhclxwYXJcYiBD p664gh2rfyysXURaVTYuWFMuix igvVUdGXszTUWBLJCozH5wtA1e gYUiLCIsamnmLAWvt3HmTJzjFD Y9JXEbVFJaG1NxFLPZbfIujQMy LXNwZWNpZmljIHJlYWdlbnRzIC 8wYBEjm2JumF0auKLwJPNsuL3y OHIdmIGjrHPmUbWSj0DpMkxjZS BQSYQvCiZSij7hvAZ2YWn9MiMu BFb5VHVrj62jfKHiaGAgkODhKL QkyaTnsQ99ko6vgRO6g5UlVB9l k1AhyHW5XWCeATNuilFkl5NqTP OdmoFowFuewVMovWBtSa7hbJZm V8PtB2omlgHfoGApvZG5aTEzPB HtrSYzxEegIFNaZnhhm3MpIJXj mbLujnFzPXVRIANof5qaFXn5xY RBMGWtY2ZwQSVcvxYhfatgEZKr HPL4aDGomMJlOkUMGVImy4nxJ0 axVp7amH74wdC7VC3rv7EoJgXv xgH6smIfsIlqojTpNG1cJKJxtw ElgSYqnDQtcBwkk7XcpQPdrNQs TXKeqjEcpUgkTHQiNLPHu86dPT lraBKmo9dyi8JxH2kvqGcgCYig t9PveU8bVDkxmnCrst86RUEqEH 4bY5nkNFOjDLPbqgVxwSGhh7Cs JBVrsBJ6hZHoELCmXy9cCPItzk VdFLG9RfYJAS5dxjwhhGPubVpm rb5yETZaLKKUJTWseCIgVLJejO VybWluZWQgdGhhdCBzdWNoIGNs FUIwFE6tVVEqouKwrZCaj8OawW CouwNgv0ZbxsLtAIUlHBG5HzEt ESqeshH9BQI1HCuaUQPpLZRwQt 5sQKTmaM3pD9CqKQJ5hqVms4Ws FcXoJXLjc8rupSlmOP7yxZThIJ CfMFgimqChUNXatzTcmcRrt4Lm O2I9hU8jIEcwp2AaGy8wRISpu2 FmifZwVxFlOCYsGGadfSx2ZIPj PKH9xNUdc02rQBFhUHTaxEPtKd ngYYMvsVXklS5ywaHwRE5iAnig D35oOQJglW1tb7yrd5MoZs8dXV fel5uvpUsoPVMzRWyocUIuvXNp wKInICtnsTupM9P8hOjstmUyun SkyAN4FV9ixPZxFVErvaQaK8W8 mJHsLZ1pCVGvqAQzYNnkdfQpk6 nkouVcgWU9zKElCHEWEV3dT8Y8 jIAmYCEas2OefIJqqsAcQZL1jS 0th7s0BYWhrPasJlwlB6rvz4am dWxkIGJlIGludGVycHJldGVkIH xksPgzF3V6uMzmuiQkajShjTI9 TJ4ymVGbXASpsbNwF7F1dCFqBQ 8qSAHzNCHxlmVhNs5dvXirPHEz sFNjIPaqynEka3yqlbOpxCK7xV LsLRDkWKOkjU91jPIfGuXsE07s tMAbRTSxyF5hYIC0bZZmgTWby2 RkwFvoGQdbLY3qdQ6nh4vakQJk BPDXsLytJSgvQm4aQDCrmpfszL YeC0YdyYzvhLQgOCHaPPZaULTT SUEgYXMgcXVhbGlmaWVkIHRvIH GnekDbvc7zxEomgGHww26ntLN3 aEK0WATtd1YgpklcDECrmqhvCs PzvXLvQVGaZ47KNsOWOIKEM89Z NIXOWGFTJ3VDC5xFWJL3HDN6Ht exTYXvX21UFrMGCVIBA38PBVEG ULKGV5LOXIHBGVsNU4ZPDA9RTU IDKOFIBN7XPBqQWsBJJKoOS9LV MZ8RVGOBDVTVTK8CUlJaVHeLI5 SHY2wPTGTmQLPXYIZBDKHmIfYF MC6pIGj3XWgPVxS4NTV1Epg1QZ RIGIWLQC9NGKRJS77PORGOSCLG S1WVELFUOiRYVFKWF92WYPDOMR BVS1PMA9uRIIKIIiIDDIDIY34D JDNOSBPXU3EPJPQBJQEEZtITPa CZYZ6RPPCHQQNFPJ0SIVkMLuQb DIJVH6IETsYQG0gaVRABGCANAC HbSW8OyA== [employer] Work Phone: [employer] Work Phone: Progress Noteson 05-28-2025 Extension Agent Authentication Interface Message Text Patient notified that provider is running behind LUIS E Stover Normal The [employer] Extension Agent Authentication Interface Message Text OTOLARYNGOLOGY - HEAD AND NECK SURGERY CLINIC NOTE CHIEF COMPLAINT: Chief Complaint Patient presents with New patient, to establish relationship HPI: Glenn Parada is a 80 year old male with PMH significant for Parkinson's who presents today, 05/28/2025, at the [facility] at the request of Referring [...] Administered Date(s) Administered COVID-19 Vaccine (12+ yrs, Apica) mRNA, spike protein, LNP, pres. free, 30 mcg/0.3mL dose, lola-sucrose (NKG=855) 06/22/2024 Influenza, injectable, high dose seasonal, trivalent, preservative free (PCN=052) 06/22/2024 Tdap (CPO=306) 12/26/2024 PHYSICAL EXAM: Vital Signs: BP 106/66 [...] oropharyngeal (more content not included)... Normal [facility] [employer] D/C Summary- SPon 05-27-2025 D/C Summary- SP Normal [facility] PT D/C Summary (1)on 025 PT D/C Summary (1) Normal [facility] CNPNon 05-03-2025 CNPN Telephone (NRMDN) -- GLENN PARADA ([id number]) 1945 M Date Time Provider Department 05/03/25 ARIES SARABIAN During your visit today, we recorded the following information about you: Vicente Linder MA 05/03/2025 7:55 AM Signed Faxed rehab evaluation to [facility] and confirmation received Allergies As of Date: [...] be prescribed. Date Reviewed: 04/08/2025 Reviewed by: Aries Sarabia APRN.SR VICE PRESIDENT - Fully Assessed Reason for Visit: Orders [...] Orthostatic hypotension [I95.1] 03/17/2024 Encounter Status:Closed by VICENTE LINDER on 05/03/25 Normal [facility] Soft Tissue Neck WITH Contra ston 05-03-2025 Soft Tissue Neck WITH Contrast Normal [facility] Inital Evaluation (1) - PTon 04-26-2025 Inital Evaluation (1) - PT Normal [facility] CNOVon 04-08-2025 CNOV Office Visit (NRMDN) -- GLENN PARADA ([id number]) 1945 M Date Time Provider Department 04/08/25 3:00 PM ARIES SARABIA During your visit today, we recorded the following information about you: Weight Height 75.5 kg 1.727 m Maurice Carr MA 04/12/2025 8:47 PM Signed 04/04/2025 [...] SD worse than population and warrants attention Aries Sarabia APRN.CNP 04/12/2025 8:47 PM Signed [facility] - FOLLOW UP EVALUATION Primary Movement Disorders Neurologist: Amisha Sarabia MD Primary Movement Disorders FER: Aries Sarabia CNP Recording using ambient AI software for draft documentation of the visit was discussed with the patient/authorized civil rights representative; all questions welcomed and answered. Patient/authorized civil rights representative agreed to proceed MD Eyal Rosswn BRANDIE [address] [facility] [address] Dear Eloina Chi MD: I had the [...] CR Ques (more content not included)... Normal [facility] Culture, Throaton 03-04-2025 CUT Normal throat crow isolated. No beta-hemolytic streptococcus isolated. Normal [facility] Comment on above: Performed By: #### M 100.1000 ####[facility] [address] [place] [place], [address] Throat specimen bacteria yo ntification by cultureOrdered By: Ariel Duque on 03-01-2025 Bacteria identified Cx Nom (Throat) [facility] Culture, Throaton 02-10-2025 CUT Penicillin is the dr ug of choice for Beta Streptococcal infections. For Penicillin allergic patients, Erythromycin may be used. Streptococcus group G Amount Growth 2+ Normal [facility] Comment on above: Performed By: #### M 100.1000 ####[facility] [address] [facility] [place], [place], [id number] Throat specimen bacteria yo ntification by cultureOrdered By: Ariel Duque on 02-08-2025 Bacteria identified Cx Nom (Throat) Streptococcus group G Abnormal [facility] Culture, Throaton 12-31-2024 CUT #1 Penicillin is the drug of choice for Beta Streptococcal infections. For Penicillin allergic patients, Erythromycin may be used. Streptococcus group F Amount Growth 3+ Normal [facility] Comment on above: Performed By: #### M 100.1000 ####[facility] [address] [place], [address] Throat specimen bacteria yo ntification by cultureOrdered By: Ariel Duque on 12-28-2024 Bacteria identified Cx Nom (Throat) Streptococcus group F Abnormal [facility] Brain/Head without Contrasto n 12-26-2024 Brain/Head without Contrast Normal [facility] Emergency Department Summary on 12-26-2024 Emergency [address] [facility] Hand Min 3 Viewson Hand Min [address] [facility] Spine Cervical without Contr ason 12-26-2024 Spine Cervical without Contras Normal [facility] SP/HP.SP.Tanvir 12-23-2024 SP/HP.SP.EV Normal [facility] CNPNon 11-06-2024 CNPN Telephone (GSTNOR) -- GLENN PARADA ([id number]) 1945 M Date Time Provider Department 11/06/24 PHOEBE CHAMBERLAIN GSTNOR During your visit today, we recorded the following information about you: Allergies As of Date: 11/06/2024 (No Known Allergies) Date Reviewed: 09/21/2024 Reviewed by: Berenice Sepulveda, CT - Fully Assessed Reason for Visit: [...] Orthostatic hypotension [I95.1] 03/17/2024 Encounter Status:Closed by MAURICE FOX on 11/09/24 Normal [facility] Urgent Care Visit Reporton 1 12-05-2023 Urgent Care Visit Report [facility]OV Office Visit (NREUS2 ) -- GLENN PARADA ([id number]) 1945 M Date Time Provider Department 09/21/24 3:30 PM AMISHA SARABIA NREUS2 During your visit today, we recorded the following information about you: Weight Height 74.8 kg 1.727 m Amisha Sarabia MD 10/04/2024 7:14 PM Signed [facility] - FOLLOW UP EVALUATION MD Eyal Ross [facility] [address] [facility] [address] Dear Eloina Chi MD: I had the [...] Row Office Visit from 09/21/2024 in Neurological [facility] Office Visit from 06/25/2024 in Neurology [facility] [...] NUTRITIONAL SUPPLEMENT (more content not included)... Normal [facility] 08-10-2024 [facility] -- GLENN PARADA ([id number]) 1945 M Date Time Provider Department 08/10/24 ARIES SARABIA PATRICIA During your visit today, we recorded the following information about you: Jael Ch RN 08/10/2024 3:44 PM Signed Call to PCP to see if we can wean him down or off the propranolol since his blood pressure tends to be low and drop or is he on it for another reason and it should remain at the current dose - per Aries Sarabia Call to PCP, busy signal. Call to patient to confirm PCP information. No answer. Message left for return call. Jael Ch RN 08/11/2024 11:31 AM Signed Spoke with nurse Naomi Davis, she discussed with Dr. Chi and received approval to wean down or discontinue propranolol. Aries Sarabia APRN.[facility] 08/14/2024 4:17 PM Signed I called and spoke with him and his . He said his dizziness has not been as bad lately and decided he does not want to make this change, but will have reassessed when he sees Dr. Sarabia next month. I asked him to let me know if his symptoms return. Aries Sarabia APRN-[facility] Allergies As of Date: 08/10/2024 (No Known Allergies) Date Reviewed: 07/30/2024 Reviewed by: Maurice Fox MA - Fully Assessed Reason for Visit: Medication Question [7428] Prescriptions as of 08/14/2024 - SENNA 8.6 [...] Status:Closed by JAEL CH on 08/12/24 Normal [facility] CBC W Auto Differential pane l (Bld)on 07-31-2024 Basophils (Bld) [#/Vol] 0.06 10*3/uL Normal <0.11 [facility] Comment on above: Order Comment: Speci men Type: BLOOD SPECIMENOrdering Facility: [facility] Address: [address] [place] [address] Performed By: #### 5 7021-8 ####[facility] [id number] [place] [address] [place] Basophils/100 WBC (Bld) 0.8 % Normal [facility] Comment on above: Order Comment: Speci men Type: BLOOD SPECIMENOrdering Facility: [facility] Address: [address] [place] [address] Performed By: #### 5 7021-8 ####[facility] [id number] [place] [address] [place] Differential cell count method Nom (Bld) Auto Normal [facility] Comment on above: Order Comment: Speci men Type: BLOOD SPECIMENOrdering Facility: [facility] Address: [address] [place] [address] Performed By: #### 5 7021-8 ####[facility] [id number] [place] [address] [place] Eosinophils (Bld) [#/Vol] 0.26 10*3/uL Normal <0.46 [facility] Comment on above: Order Comment: Speci men Type: BLOOD SPECIMENOrdering Facility: [facility] Address: [address] [place] [address] Performed By: #### 5 7021-8 ####[facility] [id number] [place] [address] [place] Eosinophils/100 WBC (Bld) 3.4 % Normal [facility] Comment on above: Order Comment: Speci men Type: BLOOD SPECIMENOrdering Facility: [facility] Address: [address] [place] [address] Performed By: #### 5 7021-8 ####[facility] [id number] [place] [address] [place] Erythrocyte distribution width (RBC) [Ratio] 12.7 % Normal 11.5-15.0 [facility] Comment on above: Order Comment: Speci men Type: BLOOD SPECIMENOrdering Facility: [facility] Address: [address] [place] [address] Performed By: #### 5 7021-8 ####[facility] [id number] [place] [address] [place] Hematocrit (Bld) [Volume fraction] 38.0 % Low 39.0-51.0 [facility] Comment on above: Order Comment: Speci men Type: BLOOD SPECIMENOrdering Facility: [facility] Address: [address] [place], [place] [address] Performed By: #### 5 7021-8 ####[facility] IRAIS[place] HUENEMEUSMAN [id number] [place] [address] [place] Hemoglobin (Bld) [Mass/Vol] 13.0 g/dL Normal 13.0-17.0 [facility] Comment on above: Order Comment: Speci men Type: BLOOD SPECIMENOrdering Facility: [facility] Address: [address] [place] [address] Performed By: #### 5 7021-8 ####[facility] [id number] [place] [address] [place] Immature granulocytes (Bld) [#/Vol] 10*3/uL Normal <0.10 [facility] Comment on above: Order Comment: Speci men Type: BLOOD SPECIMENOrdering Facility: [facility] Address: [address] [place] [address] Performed By: #### 5 7021-8 ####[facility] [id number] [place] [address] [place] Immature granulocytes/100 WBC (Bld) 0.1 % Normal [facility] Comment on above: Order Comment: Speci men Type: BLOOD SPECIMENOrdering Facility: [facility] Address: [address] [place] [address] Performed By: #### 5 7021-8 ####[facility] POINTNCL[facility] [id number] [place] [address] [place] Lymphocytes (Bld) [#/Vol] 2.55 10*3/uL Normal 1.00-4.00 [facility] Comment on above: Order Comment: Speci men Type: BLOOD SPECIMENOrdering Facility: [facility] Address: [address] [place] [address] Performed By: #### 5 7021-8 ####[facility] IRAISShreyaNCLIA [id number] [place] [address] [place] Lymphocytes/100 WBC (Bld) 33.1 % Normal [facility] Comment on above: Order Comment: Speci men Type: BLOOD SPECIMENOrdering Facility: [facility] Address: [address] [place] [address] Performed By: #### 5 7021-8 ####[facility]INT[facility] [id number] [place] [address] [place] MCH (RBC) [Entitic mass] 30.9 pg Normal 26.0-34.0 [facility] Comment on above: Order Comment: Speci men Type: BLOOD SPECIMENOrdering Facility: [facility] Address: [address] [place] [address] Performed By: #### 5 7021-8 ####[facility] POINTLEONIDPAOLOGraciela [id number] [place] [address] [place] MCHC (RBC) [Mass/Vol] 34.2 g/dL Normal 30.5-36.0 [facility] Comment on above: Order Comment: Speci men Type: BLOOD SPECIMENOrdering Facility: [facility] Address: [address] [place] [address] Performed By: #### 5 7021-8 ####[facility] POINTNCLIGraciela [id number] [place] [address] [place] MCV (RBC) [Entitic vol] 90.3 fL Normal 80.0-100.0 [facility] Comment on above: Order Comment: Speci men Type: BLOOD SPECIMENOrdering Facility: [facility] Address: [address] [place] [address] Performed By: #### 5 7021-8 ####[facility] POINTNCLIA [id number] [place] [address] [place] Monocytes (Bld) [#/Vol] 0.75 10*3/uL Normal <0.87 [facility] Comment on above: Order Comment: Speci men Type: BLOOD SPECIMENOrdering Facility: [facility] Address: [address] [place] [address] Performed By: #### 5 7021-8 ####[facility] [id number] [place] [address] [place] Monocytes/100 WBC (Bld) 9.7 % Normal [facility] Comment on above: Order Comment: Speci men Type: BLOOD SPECIMENOrdering Facility: [facility] Address: [address] [place] [address] Performed By: #### 5 7021-8 ####[facility] [id number] [place] [address] [place] Neutrophils (Bld) [#/Vol] 4.08 10*3/uL Normal 1.45-7.50 [facility] Comment on above: Order Comment: Speci men Type: BLOOD SPECIMENOrdering Facility: [facility] Address: [address] [place] [address] Performed By: #### 5 7021-8 ####[facility] [id number] [place] [address] [place] Neutrophils/100 WBC (Bld) 52.9 % Normal [facility] Comment on above: Order Comment: Speci men Type: BLOOD SPECIMENOrdering Facility: [facility] Address: [address] [place] [address] Performed By: #### 5 7021-8 ####[facility] [id number] [place] [address] [place] Nucleated RBC (Bld) [#/Vol] 10*3/uL Normal <0.01 [facility] Comment on above: Order Comment: Speci men Type: BLOOD SPECIMENOrdering Facility: [facility] Address: [address] [place] [address] Performed By: #### 5 7021-8 ####[facility] PATIENCE [id number] [place] [address] [place] Nucleated RBC/100 WBC (Bld) [Ratio] 0.0 /100 WBC Normal [facility] Comment on above: Order Comment: Speci men Type: BLOOD SPECIMENOrdering Facility: [facility] Address: [address] [place] [address] Performed By: #### 5 7021-8 ####[facility] [place] HUENEMEUSMAN [id number] [place] [address] [place] Platelet mean volume (Bld) [Entitic vol] 9.2 fL Normal 9.0-12.7 [facility] Comment on above: Order Comment: Speci men Type: BLOOD SPECIMENOrdering Facility: [facility] Address: [address] [place] [address] Performed By: #### 5 7021-8 ####[facility]INTUS[facility] [id number] [place] [address] [place] Platelets (Bld) [#/Vol] 232 10*3/uL Normal 150-400 [facility] Comment on above: Order Comment: Speci men Type: BLOOD SPECIMENOrdering Facility: [facility] Address: [address] [place] [address] Performed By: #### 5 7021-8 ####[facility] POINTLEONIDLIGraciela [id number] [place] [address] [place] RBC (Bld) [#/Vol] 4.21 10*6/uL Normal 4.20-6.00 [facility] Comment on above: Order Comment: Speci men Type: BLOOD SPECIMENOrdering Facility: [facility] Address: [address] [place] [address] Performed By: #### 5 7021-8 ####[facility] POINTNCLIA [id number] [place] [address] [place] WBC (Bld) [#/Vol] 7.71 10*3/uL Normal 3.70-11.00 [facility] Comment on above: Order Comment: Speci men Type: BLOOD SPECIMENOrdering Facility: [facility] Address: [address] [place] [address] Performed By: #### 5 7021-8 ####[facility] [id number] [place] [address] [place] [facility] HLA-DQ GENOTYPE on 07-31-2024 [place] INTERPRETATION The HLA-DQ genotype of the patient is supportive of an increased risk of celiac disease. Normal [facility] Comment on above: Order Comment: Speci [facility] Type: BLOOD SPECIMENOrdering Facility: [facility] Address: [address] [place] [address] Performed By: #### C KELLI ####[facility] [id number] [address] OF HIGINIO CELIAC CATEGORY Category 7 Normal [facility] Comment on above: Order Comment: Leonori [facility] Type: BLOOD SPECIMENOrdering Facility: [facility] Address: [address] [place] [address] Result Comment: CATEGORY DQ HAPLOTYPE RELATIVE RISK [...] predicts celiac disease risk haplotypes in the [place], [place] and [place] populations. Immunogenetics. 2009 Jan;61(4):247-56. 2. Akua ACOSTA. Celiac disease: dissecting a complex inflammatory disorder. Ruby Rev Immunol. 2002 Jun;2(9):647-55. 3. Kvng E, Connor HS, Malinda CA, et al. Risk of pediatric celiac disease according to HLA haplotype and country. N Engl J Med. 2014 ;371(1):42-9. HLA typing performed by PCR-RSSOP and/or NGS. This test was developed and its performance characteristics determined by [employer]. The test has not been cleared or approved by the [place] FDA. However, FDA approval was not necessary since this lab is certified under CLIA for high complexity testing. Test performed by: [facility], [address], [place] [address]. CLIA [id number]. Performed By: #### C KELLI ####[facility] [id number] [address] CELIAC RISK HAPLOTYPE Positive Normal [facility] Comment on above: Order Comment: Speci men Type: BLOOD SPECIMENOrdering Facility: [facility] Address: [address] [place] [address] Performed By: #### C KELLI ####[facility] [id number] [address] HLA-DQA1 GENOTYPE HLA-DQA1*: 05, 02:01 Normal [facility] Comment on above: Order Comment: Speci men Type: BLOOD SPECIMENOrdering Facility: [facility] Address: [address] [place] [address] Performed By: #### C KELLI ####[facility]IESCLIA [id number] [address] HLA-DQB1 GENOTYPE HLA-DQB1*: 02:01, 02:02 Normal [facility] Comment on above: Order Comment: Speci [facility] Type: BLOOD SPECIMENOrdering Facility: [facility] Address: [address] [place] [address] Performed By: #### C KELLI ####[facility]OR[facility]IESCLIA [id number] [place] [id number] [facility] CELIAC SCREENon 07-31-2024 GLIAD DEAMIDATED IGA QUAL Negative Normal Negative, Test not Indicated [facility] Comment on above: Order Comment: Speci [facility] Type: BLOOD SPECIMENOrdering Facility: [facility] Address: [address] [place] [address] Result Comment: This is used as an aid in diagnosis of celiac disease. Clinical correlation is required. The following results were obtained with an View[employer] QUANTA Lite Gliadin IgA JF Gliadin. Gliadin IgA values obtained with different manufacturers' assay methods may not be used interchangeably. The magnitude of the reported IgA levels cannot be correlated to an endpoint titer. Performed By: #### L [id number] ####[facility] LABCLIA [id number] [place] [address] [place] Gliadin peptide IgA Qn (S) 3 Units Normal <20 [facility] Comment on above: Order Comment: Chela barfield Type: BLOOD SPECIMENOrdering Facility: [facility] Address: [address] [place] [address] Performed By: #### L [id number] ####[facility] LABCLIA [id number] [place] [address] [place] INTERPRETATION No serological evide nce of celiac disease, however, if celiac disease is clinically suspected and patient is not on gluten-free diet, histological diagnosis may be considered. HLA testing may help with risk assessment. Normal [facility] Comment on above: Order Comment: Chela barfield Type: BLOOD SPECIMENOrdering Facility: [facility] Address: [address] [place] [address] Performed By: #### L [id number] ####[facility] LABIA [id number] [address] [place] TRANSGLUTAMINASE IGA ABS INTERPRETATION Negative Normal Negative [facility] Comment on above: Order Comment: Chela barfield Type: BLOOD SPECIMENOrdering Facility: [facility] Address: [address] [place] [address] Result Comment: The following results were obtained with View[employer]le QUANTA Lite R h-tTG IgA JF.???R h-tTG IgA values obtained with different manufacturers' assay methods may not be used interchangeably. The magnitude of the reported IgA levels cannot be corelated to an endpoint???concentration. This is used as an aid in diagnosis of celiac disease. Clinical correlation is required. Performed By: #### L [id number] ####[facility] LABCLIA [id number] [place] [address] [place] tTG IgA Qn (S) <2 Normal <4 [facility] Comment on above: Order Comment: Chela barfield Type: BLOOD SPECIMENOrdering Facility: [facility] Address: [address] [place] [address] Performed By: #### L [id number] ####[facility] LABCLIA [id number] [place] [id number] [id number] [place] Comprehensive metabolic 2000 panelon 07-31-2024 Albumin [Mass/Vol] 3.9 g/dL Normal 3.9-4.9 [facility] Comment on above: Order Comment: Speci men Type: BLOOD SPECIMENOrdering Facility: [facility] Address: [address] [place] [address] Performed By: #### 2 4323-8 ####[facility] ALEXANDRA MILLTOWNCLIA [id number] [place] [address] [place] ALP [Catalytic activity/Vol] 84 U/L Normal 38-113 [facility] Comment on above: Order Comment: Speci men Type: BLOOD SPECIMENOrdering Facility: [facility] Address: [address] [place] [address] Performed By: #### 2 4323-8 ####[facility] MILLTOWNCLIA [id number] [place] [address] [place] ALT [Catalytic activity/Vol] 7 U/L Low 10-54 [facility] Comment on above: Order Comment: Speci men Type: BLOOD SPECIMENOrdering Facility: [facility] Address: [address] [place] [address] Performed By: #### 2 4323-8 ####[facility] ALEXANDRA MILLTOWNCLIA [id number] [place] [address] [place] Anion gap [Moles/Vol] 10 mmol/L Normal 8-15 [facility] Comment on above: Order Comment: Speci men Type: BLOOD SPECIMENOrdering Facility: [facility] Address: [address] [place] [address] Performed By: #### 2 4323-8 ####[facility] MILLTOWNCLIA [id number] [place] [address] [place] AST [Catalytic activity/Vol] 14 U/L Normal 14-40 [facility] Comment on above: Order Comment: Speci men Type: BLOOD SPECIMENOrdering Facility: [facility] Address: [address] [place] [address] Performed By: #### 2 4323-8 ####[facility] ALEXANDRAROCKINGHAM MEMORIAL HOSPITALWNCLIA [id number] [place] [address] [place] Bilirubin [Mass/Vol] 0.5 mg/dL Normal 0.2-1.3 [facility] Comment on above: Order Comment: Speci men Type: BLOOD SPECIMENOrdering Facility: [facility] Address: [address] [place] [address] Performed By: #### 2 4323-8 ####[facility] POINTLEONIDLIA [id number] [place] [address] [place] Calcium [Mass/Vol] 9.1 mg/dL Normal 8.5-10.2 [facility] Comment on above: Order Comment: Speci men Type: BLOOD SPECIMENOrdering Facility: [facility] Address: [address] [place] [address] Performed By: #### 2 4323-8 ####[facility]ENTERWNCLIA [id number] [place] [address] [place] Chloride [Moles/Vol] 97 mmol/L Low 98-107 [facility] Comment on above: Order Comment: Speci men Type: BLOOD SPECIMENOrdering Facility: [facility] Address: [address] [place] [address] Performed By: #### 2 4323-8 ####[facility] ALEXANDRA MILLTOWNCLIA [id number] [place] [address] [place] CO2 [Moles/Vol] 25 mmol/L Normal 22-30 [facility] Comment on above: Order Comment: Speci men Type: BLOOD SPECIMENOrdering Facility: [facility] Address: [address] [address] Performed By: #### 2 4323-8 ####[facility] [place] HUENEMELEONIDGraciela [id number] [place] [address] [place] Creatinine [Mass/Vol] 1.02 mg/dL Normal 0.73-1.22 [facility] Comment on above: Order Comment: Speci men Type: BLOOD SPECIMENOrdering Facility: [facility] Address: [address] [place] [address] Performed By: #### 2 4323-8 ####[facility] [id number] [place] [address] [place] Creatinine and Glomerular filtration rate.predicted panel (S/P/Bld) 74 mL/min/1.73m??? Normal >=60 [facility] Comment on above: Order Comment: Speci men Type: BLOOD SPECIMENOrdering Facility: [facility] Address: [address] [place] [address] Result Comment: Judy mated Glomerular Filtration Rate [...] actual GFR. Performed By: #### 2 4323-8 ####[facility] [id number] [place] [address] [place] Glucose [Mass/Vol] 83 mg/dL Normal 74-99 [facility] Comment on above: Order Comment: Speci men Type: BLOOD SPECIMENOrdering Facility: [facility] Address: [address] [place] [address] Result Comment: The [place] [employer] (ADA) provides guidance for cutoff [...] Standards of Medical Care in Diabetes 2016, [place] [employer]. Diabetes Care. 2016.39(Suppl 1). Performed By: #### 2 4323-8 ####[facility] MILLTOWNCLIA [id number] [place] [address] [place] Potassium [Moles/Vol] 4.3 mmol/L Normal 3.7-5.1 [facility] Comment on above: Order Comment: Speci men Type: BLOOD SPECIMENOrdering Facility: [facility] Address: [address] [place] [address] Performed By: #### 2 4323-8 ####[facility] [id number] [place] [address] [place] Protein [Mass/Vol] 6.6 g/dL Normal 6.3-8.0 [facility] Comment on above: Order Comment: Speci men Type: BLOOD SPECIMENOrdering Facility: [facility] Address: [address] [address] Performed By: #### 2 4323-8 ####[facility]ENTERWNCLIA [id number] [place] [address] [place] Sodium [Moles/Vol] 132 mmol/L Low 136-144 [facility] Comment on above: Order Comment: Speci men Type: BLOOD SPECIMENOrdering Facility: [facility] Address: [address] [address] Performed By: #### 2 4323-8 ####[facility] MILLWNCLIA [id number] [place] [address] [place] Urea nitrogen [Mass/Vol] 12 mg/dL Normal 9-24 [facility] Comment on above: Order Comment: Speci men Type: BLOOD SPECIMENOrdering Facility: [facility] Address: [address] [place] [address] Performed By: #### 2 4323-8 ####[facility] ALEXANDRA MILLTONCLIA [id number] [place] [address] [place] IgA SerPl-mCncon 07-31-2024 IgA [Mass/Vol] 185 mg/dL Normal 70-400 [facility] Comment on above: Order Comment: Speci men Type: BLOOD SPECIMENOrdering Facility: [facility] Address: [address] [place] [address] Performed By: #### 2 458-8 ####[facility] LABCLIA [id number] [place] [address] [place] TSH SerPl-aCncon 07-31-2024 TSH Qn 2.990 m[IU]/L Normal 0.270-4.20 0 [facility] Comment on above: Order Comment: Speci men Type: BLOOD SPECIMENOrdering Facility: [facility] Address: [address] [place] [address] Performed By: #### 3 016-3 ####[facility] LABCLIA [id number] [place] [address] [place] CNOVon 07-30-2024 CNOV Office Visit ([facility] ) -- GLENN PARADA ([id number]) 1945 M Date Time Provider Department 07/30/24 2:00 PM PHOEBE CHAMBERLAIN [facility]NOR During your visit today, we recorded the following information about you: Blood pressure Weight Height 124/78 75.7 kg 1.727 m Phoebe Chamberlain MD 07/30/2024 4:19 PM Signed CHIEF [...] Future - CELIAC SCREEN WITH REFLEX; Future Phoebe Chamberlain MD DATE: 07/30/24 TIME: 1:56 PM Phoebe Chamberlain MD 07/30/2024 2:32 PM Signed - [...] Known Allergies) Date Reviewed: 07/30/2024 Reviewed by: Maurice Fox MA - Fully (more content not included)... Normal [facility] Absolute lymphocyte countOrd ered By: Eloina Chi on 09-20-2023 Lymphocytes Auto (Unsp spec) [#/Vol] 2.02 10*3/uL 0.83-4.51 [facility] Basophil percentageOrdered B y: Eloina Chi on 09-20-2023 Basophils/100 WBC (Bld) 1.0 % 0-1 [facility] Bilirubin [Mass/Vol] 0.90 mg/dL 0.20-1.00 [facility] Comment on above: For patients on eltr ombopag therapy, use of Dimension [place] TBIL is not recommended. Chloride [Moles/Vol] 104 mmol/L 98-107 [facility] Cholesterol [Mass/Vol] 173 mg/dL <200 [facility] Comment on above: <200 mg/dL Desirable 200-240 mg/dL Borderline >240 mg/dL High Risk Eosinophils/100 WBC (Bld) 5.0 % 0-5 [facility] Glucose [Mass/Vol] 102 mg/dL 74-106 [facility] Comment on above: Fasting Glucose resu lt from 100 to 125 mg/dL suggests IMPAIRED HOMEOSTASIS per A.D.A. criteria. Neutrophils (Bld) [#/Vol] 3.0 10*3/uL 2.0-7.7 [facility] Neutrophils/100 WBC (Bld) 49.4 % 47-70 [facility] Potassium [Moles/Vol] 4.0 mmol/L 3.5-5.1 [facility] Protein [Mass/Vol] 6.9 g/dL 6.4-8.2 [facility] Sodium [Moles/Vol] 134 mmol/L 136-145 [facility] Triglyceride [Mass/Vol] 90 mg/dL <199 [facility] Comment on above: The drugs N-Acetylcy steine and Metamizole may falsely depress this assay.Serum Triglycerides Reference Interval Normal <150 mg/dL Borderline high 150 - 199 mg/dL High 200 - 499 mg/dL Very High > or = 500 mg/dL WBC (Bld) [#/Vol] 6.0 10*3/uL 4.4-11.0 [facility] Blood erythrocytes count (nu mber/volume)Ordered By: Eloina Chi on 09-20-2023 RBC (Bld) [#/Vol] 4.39 10*6/uL 4.6-6.2 [facility] Blood hemoglobin measurement (mass/volume)Ordered By: Eloina Chi on 09-20-2023 Hemoglobin (Bld) [Mass/Vol] 13.3 g/dL 13.0-16.5 [facility] Blood lymphocytes/100 leukoc ytesOrdered By: Eloina Chi on 09-20-2023 Lymphocytes/100 WBC (Bld) 33.8 % 19-41 [facility] Blood monocytes/100 leukocyt esOrdered By: Eloina Chi on 09-20-2023 Monocytes/100 WBC (Bld) 10.6 % 0-10 [facility] Blood platelet mean volumeOr dered By: Eloina Chi on 09-20-2023 Platelet mean volume (Bld) [Entitic vol] 10.9 fL 6.2-12.0 [facility] Determination of erythrocyte mean corpuscular volume (MCV)Ordered By: Eloina Chi on 09-20-2023 MCV (RBC) [Entitic vol] 91.3 fL 80-94 [facility] Hematocrit Auto (Bld) [Volum e fraction]Ordered By: Eloina Chi on 09-20-2023 Hematocrit (Bld) [Volume fraction] 40.1 % 40-54 [facility] Laboratory - Chemistry and C hemistry - challengeOrdered By: Eloina Chi on 09-20-2023 ALP [Catalytic activity/Vol] 68 U/L 45-117 [facility] ALT [Catalytic activity/Vol] 11 U/L 16-61 [facility] CO2 [Moles/Vol] 24.0 mmol/L 21.0-32.0 [facility] Free T4 [Mass/Vol] 1.22 ng/dL 0.76-1.46 [facility] Globulin (S) [Mass/Vol] 3.3 g/dL 2.2-4.2 [facility] Urea nitrogen/Creatinine [Mass ratio] 12.8 mg/mg 10-20 [facility] - Hematology and Cell countsOrdered By: Eloina Chi on 09-20-2023 Erythrocyte distribution width (RBC) [Entitic vol] 43.6 fL 35.1-43.9 [facility] Erythrocyte distribution width (RBC) [Ratio] 13.0 % 11.6-14.6 [facility] Immature granulocytes/100 WBC (Bld) 0.200 % 0.0-0.9 [facility] Comment on above: IG% - Immature Granu locytes (promyelocytes, myelocytes and metamyelocytes) > 1% indicates that a LEFT SHIFT is Present. MCH (RBC) [Entitic mass] 30.3 pg 27.0-32.0 [facility] Nucleated RBC/100 WBC (Bld) [Ratio] 0 % 0-5 [facility] MCHC Auto (RBC) [Mass/Vol]Or dered By: Eloina Chi on 09-20-2023 MCHC (RBC) [Mass/Vol] 33.2 g/dL 32-36 [facility] No Panel InformationOrdered By: Eloina Chi on 09-20-2023 Estimated GFR (MDRD) Amer 84 mL/min >60 [facility] Comment on above: GFR Calc Estimated GFR (MDRD) Non-Af Amer 69 mL/min >60 [facility] Comment on above: Non- GFR Calc Prostate Specific Antigen Screen 1.64 ng/mL 0.00-4.00 [facility] Comment on above: This test was perfor med using the TPSA assay method for the[employer] App chemistry system. Values obtained with differentassay methods cannot be used interchangably.When changing PSA assays in the course of monitoring apatient, additional sequential testing should be carriedout to confirm baseline values. Thyroid Stimulating Hormone (TSH) 2.43 uIU/mL 0.358-3.74 [facility] Platelets bldOrdered By: Shaneka Chi on 09-20-2023 Platelets (Bld) [#/Vol] 233 10*3/uL 150-450 [facility] Serum or plasma albumin shanita urement (mass/volume)Ordered By: Eloina Chi on 09-20-2023 Albumin [Mass/Vol] 3.6 g/dL 3.2-5.0 [facility] Serum or plasma albumin/glob ulin mass ratioOrdered By: Eliona Chi on 09-20-2023 Albumin/Globulin [Mass ratio] 1.1 {ratio} 0.9-2.4 [facility] Serum or plasma calcium shanita urement (mass/volume)Ordered By: Eloina Chi on 09-20-2023 Calcium [Mass/Vol] 8.8 mg/dL 8.5-10.1 [facility] Serum or plasma cholesterol in HDL measurement (mass/volume)Ordered By: Eloina Chi on 09-20-2023 Cholesterol in HDL [Mass/Vol] 45 mg/dL >40 [facility] Comment on above: The drugs N-Acetylcy steine and Metamizole may falsely depress this assay. Reference Range HDL <40 mg/dL Low HDL Cholesterol HDL >or= 60 mg/dL High HDL Cholesterol Serum or plasma cholesterol in VLDL measurement (mass/volume)Ordered By: Eloina Chi on 09-20-2023 Cholesterol in VLDL [Mass/Vol] 18 mg/dL 5-40 [facility] Serum or plasma creatinine m easurement (mass/volume)Ordered By: Eloina Chi on 09-20-2023 Creatinine [Mass/Vol] 1.09 mg/dL 0.70-1.30 [facility] Comment on above: The validity of the calculated GFR & GFRAA in patients over 70 years has not been determined. Clinical correlation is essential. Serum or plasma low density lipoprotein (LDL) cholesterol measurement (mass/volume)Ordered By: Eloina Chi on 09-20-2023 Cholesterol in LDL [Mass/Vol] 110 mg/dL 0-130 [facility] Serum or plasma urea nitroge n measurement (mass/volume)Ordered By: Eloina Chi on 09-20-2023 Urea nitrogen [Mass/Vol] 14 mg/dL 7-18 [facility] Thin prep Papanicolaou smear with manual screeningOrdered By: Eloina Chi on 09-20-2023 Thin prep Papanicolaou smear with manual screening 15 U/L 15-37 [facility] Thin prep Papanicolaou smear with manual screening 6 5-15 [facility] Vital Signs Date Time Vital Sign Value Performing Clinician Facility 08-18-2025 13:56-0500 Body height 172.72 cm Eloina Chi MD Work Phone: [facility] 08-18-2025 13:56-0500 Body mass index (BMI) [Ratio] 22.6 kg/m2 Eloina Chi MD Work Phone: [facility] 08-18-2025 13:56-0500 Body temperature 97.5 [degF] Eloina Chi MD Work Phone: [facility] 08-18-2025 13:56-0500 Body weight 67.33 kg Eloina Chi MD Work Phone: [facility] 08-18-2025 13:56-0500 Diastolic blood pressure 65 mm[Hg] Eloina Chi MD Work Phone: [facility] 08-18-2025 13:56-0500 Heart rate 101 /min Eloina Chi MD Work Phone: [facility] 08-18-2025 13:56-0500 Respiratory rate 18 /min Eloina Chi MD Work Phone: [facility] 08-18-2025 13:56-0500 SaO2% (BldA) [Mass fraction] 97 % Eloina Chi MD Work Phone: [facility] 08-18-2025 13:56-0500 Systolic blood pressure 103 mm[Hg] Eloina Chi MD Work Phone: [facility] 08-16-2025 13:33-0500 Body weight 67.16 kg Eloina Chi MD Work Phone: [facility] 08-11-2025 13:35-0400 Body height 172.72 cm Eloina Chi MD Work Phone: [facility] 08-11-2025 13:35-0400 Body mass index (BMI) [Ratio] 22.5 kg/m2 Eloina Chi MD Work Phone: [facility] 08-11-2025 13:35-0400 Body temperature 97.9 [degF] Eloina Chi MD Work Phone: 0(341)541-944000 [place] [address] 08-11-2025 13:35-0400 Body weight 67.16 kg Eloina Chi MD Work Phone: [facility] 08-11-2025 13:35-0400 Diastolic blood pressure 73 mm[Hg] Eloina Chi MD Work Phone: 6(638)396-823200 [place] [address] 08-11-2025 13:35-0400 Heart rate 103 /min Eloina Chi MD Work Phone: 8(511)335-993632 [place] [address] 08-11-2025 13:35-0400 Respiratory rate 16 /min Eloina Chi MD Work Phone: 7(877)093-007500 [place] [address] 08-11-2025 13:35-0400 SaO2% (BldA) [Mass fraction] 100 % Eloina Chi MD Work Phone: 6(609)802-344200 [place] [address] 08-11-2025 13:35-0400 Systolic blood pressure 119 mm[Hg] Eloina Chi MD Work Phone: 6(920)577-513532 [place] [address] 08-10-2025 14:00-0400 Body temperature 98 [degF] Eloina Chi MD Work Phone: 3(064)938-959000 [place] [address] 08-10-2025 14:00-0400 Diastolic blood pressure 68 mm[Hg] Eloina Chi MD Work Phone: 5(698)724-640000 [place] [address] 08-10-2025 14:00-0400 Heart rate 90 /min Eloina Chi MD Work Phone: [facility] 08-10-2025 14:00-0400 Respiratory rate 18 /min Eloina Chi MD Work Phone: [facility] 08-10-2025 14:00-0400 SaO2% (BldA) [Mass fraction] 98 % Eloina Chi MD Work Phone: 0(428)486-083800 [place] [address] 08-10-2025 14:00-0400 Systolic blood pressure 115 mm[Hg] Eloina Chi MD Work Phone: 9(059)977-291232 [place] [address] 08-10-2025 08:40-0400 Body temperature 98.2 [degF] Eloina Chi MD Work Phone: 4(886)134-772632 [place] [address] 08-10-2025 08:40-0400 Diastolic blood pressure 56 mm[Hg] Eloina Chi MD Work Phone: 6(178)298-325032 [place] [address] 08-10-2025 08:40-0400 Heart rate 95 /min Eloina Chi MD Work Phone: 2(752)717-949132 [place] [address] 08-10-2025 08:40-0400 Respiratory rate 16 /min Eloina Chi MD Work Phone: 3(989)849-613432 [place] [address] 08-10-2025 08:40-0400 SaO2% (BldA) [Mass fraction] 95 % Eloina Chi MD Work Phone: 9(855)995-514132 [place] [address] 08-10-2025 08:40-0400 Systolic blood pressure 105 mm[Hg] Eloina Chi MD Work Phone: 5(368)383-539532 [place] [address] 08-10-2025 03:40-0400 Body mass index (BMI) [Ratio] 23.2 kg/m2 Eloina Chi MD Work Phone: 8(260)836-053932 [place] [address] 08-10-2025 03:40-0400 Body weight 69.3 kg Eloina Chi MD Work Phone: 5(362)093-356532 [place] [address] 08-09-2025 13:52-0400 Body height 172.72 cm Eloina Chi MD Work Phone: 6(754)166-008332 [place] [address] 08-04-2025 13:47-0400 Body mass index (BMI) [Ratio] 25.8 kg/m2 Eloina Chi MD Work Phone: 1(788)225-197932 [place] [address] 08-04-2025 13:47-0400 Body temperature 99 [degF] Eloina Chi MD Work Phone: [facility] 08-04-2025 13:47-0400 Body weight 76.99 kg Eloina Chi MD Work Phone: 4(483)967-815700 [place] [address] 08-04-2025 13:47-0400 Diastolic blood pressure 75 mm[Hg] Eloina Chi MD Work Phone: 5(154)167-249032 [place] [address] 08-04-2025 13:47-0400 Heart rate 93 /min Eloina Chi MD Work Phone: 0(573)063-497132 [place] [address] 08-04-2025 13:47-0400 Respiratory rate 20 /min Eloina Chi MD Work Phone: 3(451)404-247732 [place] [address] 08-04-2025 13:47-0400 SaO2% (BldA) [Mass fraction] 93 % Eloina Chi MD Work Phone: 9(639)079-054932 [place] [address] 08-04-2025 13:47-0400 Systolic blood pressure 130 mm[Hg] Eloina Chi MD Work Phone: 0(722)153-557632 [place] [address] 08-04-2025 12:00-0400 Respiratory rate 16 /min Eloina Chi MD Work Phone: 0(030)150-142832 [place] [address] 08-04-2025 02:38-0400 Body mass index (BMI) [Ratio] 25.8 kg/m2 Eloina Chi MD Work Phone: 3(226)351-309232 [place] [address] 08-04-2025 02:38-0400 Body weight 77 kg Eloina Chi MD Work Phone: 4(024)053-210432 [place] [address] 07-31-2025 07:00-0400 Inhaled oxygen flow rate 2 L/min Eloina Chi MD Work Phone: 7(608)666-691932 [place] [address] 07-28-2025 11:38-0400 Body mass index (BMI) [Ratio] 23.7 kg/m2 Eloina Chi MD Work Phone: 0(786)613-657632 [place] [address] 07-28-2025 11:38-0400 Body temperature 97.1 [degF] Eloina Chi MD Work Phone: 4(738)485-234000 [place] [address] 07-28-2025 11:38-0400 Body weight 70.76 kg Eloina Chi MD Work Phone: [facility] 07-28-2025 11:38-0400 Diastolic blood pressure 68 mm[Hg] Eloina Chi MD Work Phone: [facility] 07-28-2025 11:38-0400 Heart rate 93 /min Eloina Chi MD Work Phone: [facility] 07-28-2025 11:38-0400 Respiratory rate 16 /min Eloina Chi MD Work Phone: [facility] 07-28-2025 11:38-0400 SaO2% (BldA) [Mass fraction] 98 % Eloina Chi MD Work Phone: [facility] 07-28-2025 11:38-0400 Systolic blood pressure 119 mm[Hg] Eloina Chi MD Work Phone: [facility] 07-28-2025 11:14-0400 Body weight 67.16 kg Eloina Chi MD Work Phone: [facility] 07-26-2025 14:44-0400 Diastolic blood pressure 69 mm[Hg] Eloina Chi MD Work Phone: [facility] 07-26-2025 14:44-0400 Heart rate 87 /min Eloina Chi MD Work Phone: [facility] 07-26-2025 14:44-0400 Respiratory rate 16 /min Eloina Chi MD Work Phone: [facility] 07-26-2025 14:44-0400 Systolic blood pressure 116 mm[Hg] Eloina Chi MD Work Phone: [facility] 07-26-2025 08:39-0400 Body mass index (BMI) [Ratio] 22.5 kg/m2 Eloina Chi MD Work Phone: [facility] 07-26-2025 08:39-0400 Body temperature 99 [degF] Eloina Chi MD Work Phone: [facility] 07-26-2025 08:39-0400 Body weight 67.16 kg Eloina Chi MD Work Phone: [facility] 07-26-2025 08:39-0400 Diastolic blood pressure 55 mm[Hg] Eloina Chi MD Work Phone: 0(214)883-286200 [place] [address] 07-26-2025 08:39-0400 Heart rate 86 /min Eloina Chi MD Work Phone: [facility] 07-26-2025 08:39-0400 Respiratory rate 18 /min Eloina Chi MD Work Phone: [facility] 07-26-2025 08:39-0400 SaO2% (BldA) [Mass fraction] 93 % Eloina Chi MD Work Phone: 5(495)935-667100 [place] [address] 07-26-2025 08:39-0400 Systolic blood pressure 90 mm[Hg] Eloina Chi MD Work Phone: [facility] 07-21-2025 13:35-0400 Body height 172.72 cm Eloina Chi MD Work Phone: 8(256)861-052117 [address] 07-21-2025 13:35-0400 Body mass index (BMI) [Ratio] 23.8 kg/m2 Eloina Chi MD Work Phone: 4(563)892-432200 [place] [address] 07-21-2025 13:35-0400 Body temperature 97.4 [degF] Eloina Chi MD Work Phone: [facility] 07-21-2025 13:35-0400 Body weight 71.27 kg Eloina Chi MD Work Phone: [facility] 07-21-2025 13:35-0400 Diastolic blood pressure 72 mm[Hg] Eloina Chi MD Work Phone: [facility] 07-21-2025 13:35-0400 Heart rate 89 /min Eloina Chi MD Work Phone: [facility] 07-21-2025 13:35-0400 Respiratory rate 16 /min Eloina Chi MD Work Phone: [facility] 07-21-2025 13:35-0400 SaO2% (BldA) [Mass fraction] 99 % Eloina Chi MD Work Phone: [facility] 07-21-2025 13:35-0400 Systolic blood pressure 118 mm[Hg] Eloina Chi MD Work Phone: [facility] 07-19-2025 09:57-0400 Body height 172.72 cm Eloina Chi MD Work Phone: [facility] 07-19-2025 09:57-0400 Body weight 69.59 kg Eloina Chi MD Work Phone: [facility] 07-19-2025 08:24-0400 Body mass index (BMI) [Ratio] 23.3 kg/m2 Eloina Chi MD Work Phone: [facility] 07-19-2025 08:24-0400 Body temperature 98.4 [degF] Eloina Chi MD Work Phone: [facility] 07-19-2025 08:24-0400 Body weight 69.59 kg Eloina Chi MD Work Phone: [facility] 07-19-2025 08:24-0400 Diastolic blood pressure 62 mm[Hg] Eloina Chi MD Work Phone: [facility] 07-19-2025 08:24-0400 Heart rate 88 /min Eloina Chi MD Work Phone: [facility] 07-19-2025 08:24-0400 Respiratory rate 18 /min Eloina Chi MD Work Phone: [facility] 07-19-2025 08:24-0400 SaO2% (BldA) [Mass fraction] 96 % Eloina Chi MD Work Phone: [facility] 07-19-2025 08:24-0400 Systolic blood pressure 100 mm[Hg] Eloina Chi MD Work Phone: [facility] 07-14-2025 13:30-0400 Body height 172.72 cm Eloina Chi MD Work Phone: [facility] 07-14-2025 13:30-0400 Body mass index (BMI) [Ratio] 24.3 kg/m2 Eloina Chi MD Work Phone: [facility] 07-14-2025 13:30-0400 Body temperature 96.8 [degF] Eloina Chi MD Work Phone: [facility] 07-14-2025 13:30-0400 Body weight 72.65 kg Eloina Chi MD Work Phone: 0(780)[phone] [place] [address] 07-14-2025 13:30-0400 Diastolic blood pressure 69 mm[Hg] Eloina Chi MD Work Phone: 4(040)[phone] [address] 07-14-2025 13:30-0400 Heart rate 86 /min Eloina Chi MD Work Phone: [facility] 07-14-2025 13:30-0400 Respiratory rate 18 /min Eloina Chi MD Work Phone: [facility] 07-14-2025 13:30-0400 SaO2% (BldA) [Mass fraction] 96 % Eloina Chi MD Work Phone: 0(879)[phone] [place] [address] 07-14-2025 13:30-0400 Systolic blood pressure 127 mm[Hg] Eloina Chi MD Work Phone: [facility] 07-12-2025 07:59-0400 Body height 172.72 cm Eloina Chi MD Work Phone: [facility] 07-12-2025 07:59-0400 Body mass index (BMI) [Ratio] 23.8 kg/m2 Eloina Chi MD Work Phone: [facility] 07-12-2025 07:59-0400 Body temperature 98.4 [degF] Eloina Chi MD Work Phone: [facility] 07-12-2025 07:59-0400 Body weight 71.01 kg Eloina Chi MD Work Phone: [facility] 07-12-2025 07:59-0400 Diastolic blood pressure 63 mm[Hg] Eloina Chi MD Work Phone: [facility] 07-12-2025 07:59-0400 Heart rate 102 /min Eloina Chi MD Work Phone: [facility] 07-12-2025 07:59-0400 Respiratory rate 18 /min Eloina Chi MD Work Phone: [facility] 07-12-2025 07:59-0400 SaO2% (BldA) [Mass fraction] 96 % Eloina Chi MD Work Phone: [facility] 07-12-2025 07:59-0400 Systolic blood pressure 100 mm[Hg] Eloina Chi MD Work Phone: [facility] 07-07-2025 14:02-0400 Body mass index (BMI) [Ratio] 24.2 kg/m2 Eloina Chi MD Work Phone: [facility] 07-07-2025 14:02-0400 Body temperature 97.3 [degF] Eloina Chi MD Work Phone: [facility] 07-07-2025 14:02-0400 Body weight 72.31 kg Eloina Chi MD Work Phone: [facility] 07-07-2025 14:02-0400 Diastolic blood pressure 71 mm[Hg] Eloina Chi MD Work Phone: [facility] 07-07-2025 14:02-0400 Heart rate 83 /min Eloina Chi MD Work Phone: [facility] 07-07-2025 14:02-0400 Respiratory rate 14 /min Eloina Chi MD Work Phone: [facility] 07-07-2025 14:02-0400 SaO2% (BldA) [Mass fraction] 97 % Eloina Chi MD Work Phone: [facility] 07-07-2025 14:02-0400 Systolic blood pressure 116 mm[Hg] Eloina Chi MD Work Phone: [facility] 07-05-2025 08:37-0400 Body mass index (BMI) [Ratio] 23.6 kg/m2 Eloina Chi MD Work Phone: [facility] 07-05-2025 08:37-0400 Body temperature 98.3 [degF] Eloina Chi MD Work Phone: [facility] 07-05-2025 08:37-0400 Body weight 70.56 kg Eloina Chi MD Work Phone: [facility] 07-05-2025 08:37-0400 Diastolic blood pressure 70 mm[Hg] Eloina Chi MD Work Phone: [facility] 07-05-2025 08:37-0400 Heart rate 87 /min Eloina Chi MD Work Phone: [facility] 07-05-2025 08:37-0400 Respiratory rate 16 /min Eloina Chi MD Work Phone: [facility] 07-05-2025 08:37-0400 SaO2% (BldA) [Mass fraction] 95 % Eloina Chi MD Work Phone: [facility] 07-05-2025 08:37-0400 Systolic blood pressure 106 mm[Hg] Eloina Chi MD Work Phone: [facility] 06-30-2025 10:15-0400 Body temperature 97.4 [degF] Eloina Chi MD Work Phone: [facility] 06-30-2025 10:15-0400 Diastolic blood pressure 61 mm[Hg] Eloina Chi MD Work Phone: [facility] 06-30-2025 10:15-0400 Heart rate 82 /min Eloina Chi MD Work Phone: [facility] 06-30-2025 10:15-0400 Respiratory rate 16 /min Eloina Chi MD Work Phone: [facility] 06-30-2025 10:15-0400 SaO2% (BldA) [Mass fraction] 92 % Eloina Chi MD Work Phone: [facility] 06-30-2025 10:15-0400 Systolic blood pressure 105 mm[Hg] Eloina Chi MD Work Phone: [facility] 06-30-2025 07:23-0400 Body height 172.72 cm Eloina Chi MD Work Phone: [facility] 06-30-2025 07:23-0400 Body mass index (BMI) [Ratio] 23.4 kg/m2 Eloina Chi MD Work Phone: [facility] 06-30-2025 07:23-0400 Body weight 70 kg Eloina Chi MD Work Phone: [facility] 06-28-2025 15:02-0400 Body height 172.72 cm Eloina Chi MD Work Phone: [facility] 06-28-2025 15:02-0400 Body mass index (BMI) [Ratio] 23.8 kg/m2 Eloina Chi MD Work Phone: [facility] 06-28-2025 15:02-0400 Body temperature 98.2 [degF] Eloina Chi MD Work Phone: [facility] 06-28-2025 15:02-0400 Body weight 71.24 kg Eloina Chi MD Work Phone: [facility] 06-28-2025 15:02-0400 Diastolic blood pressure 80 mm[Hg] Eloina Chi MD Work Phone: [facility] 06-28-2025 15:02-0400 Heart rate 76 /min Eloina Chi MD Work Phone: [facility] 06-28-2025 15:02-0400 Respiratory rate 18 /min Eloina Chi MD Work Phone: [facility] 06-28-2025 15:02-0400 SaO2% (BldA) [Mass fraction] 98 % Eloina Chi MD Work Phone: [facility] 06-28-2025 15:02-0400 Systolic blood pressure 130 mm[Hg] Eloina Chi MD Work Phone: [facility] 06-22-2025 08:24-0400 Body height 172.72 cm Eloina Chi MD Work Phone: [facility] 06-22-2025 08:24-0400 Body mass index (BMI) [Ratio] 23.9 kg/m2 Eloina Chi MD Work Phone: [facility] 06-22-2025 08:24-0400 Body temperature 98.3 [degF] Eloina Chi MD Work Phone: [facility] 06-22-2025 08:24-0400 Body weight 71.46 kg Eloina Chi MD Work Phone: [facility] 06-22-2025 08:24-0400 Diastolic blood pressure 60 mm[Hg] Eloina Chi MD Work Phone: [facility] 06-22-2025 08:24-0400 Heart rate 84 /min Eloina Chi MD Work Phone: [facility] 06-22-2025 08:24-0400 Respiratory rate 16 /min Eloina Chi MD Work Phone: [facility] 06-22-2025 08:24-0400 SaO2% (BldA) [Mass fraction] 97 % Eloina Chi MD Work Phone: [facility] 06-22-2025 08:24-0400 Systolic blood pressure 96 mm[Hg] Eloina Chi MD Work Phone: [facility] 06-21-2025 13:38-0400 Body height 172.72 cm Eloina Chi MD Work Phone: [facility] 06-21-2025 13:38-0400 Body mass index (BMI) [Ratio] 24.3 kg/m2 Eloina Chi MD Work Phone: [facility] 06-21-2025 13:38-0400 Body weight 72.63 kg Eloina Chi MD Work Phone: [facility] 06-21-2025 13:38-0400 Diastolic blood pressure 66 mm[Hg] lEoina Chi MD Work Phone: [facility] 06-21-2025 13:38-0400 Heart rate 98 /min Eloina Chi MD Work Phone: [facility] 06-21-2025 13:38-0400 Respiratory rate 17 /min Eloina Chi MD Work Phone: 7(053)[phone] [place] [address] 06-21-2025 13:38-0400 SaO2% (BldA) [Mass fraction] 99 % Eloina Chi MD Work Phone: [facility] 06-21-2025 13:38-0400 Systolic blood pressure 105 mm[Hg] Eloina Chi MD Work Phone: [facility] 06-17-2025 13:42-0400 Body height 172.72 cm Eloina Chi MD Work Phone: [facility] 06-17-2025 13:42-0400 Body mass index (BMI) [Ratio] 24 kg/m2 Eloina Chi MD Work Phone: [facility] 06-17-2025 13:42-0400 Body temperature 96.6 [degF] Eloina Chi MD Work Phone: [facility] 06-17-2025 13:42-0400 Body weight 71.78 kg Eloina Chi MD Work Phone: [facility] 06-17-2025 13:42-0400 Diastolic blood pressure 59 mm[Hg] Eloina Chi MD Work Phone: [facility] 06-17-2025 13:42-0400 Heart rate 82 /min Eloina Chi MD Work Phone: [facility] 06-17-2025 13:42-0400 Respiratory rate 16 /min Eloina Chi MD Work Phone: [facility] 06-17-2025 13:42-0400 SaO2% (BldA) [Mass fraction] 97 % Eloina Chi MD Work Phone: [facility] 06-17-2025 13:42-0400 Systolic blood pressure 88 mm[Hg] Eloina Chi MD Work Phone: [facility] 05-28-2025 11:37-0400 Body temperature 97.5 [degF] Reta Siegel MD Work Phone: [facility] 05-28-2025 11:37-0400 Body weight 72.58 kg Reta Siegel MD Work Phone: [facility] 05-28-2025 11:37-0400 Diastolic blood pressure 66 mm[Hg] Reta Siegel MD Work Phone: [facility] 05-28-2025 11:37-0400 Heart rate 86 /min Reta Siegel MD Work Phone: [facility] 05-28-2025 11:37-0400 SaO2% (BldA) [Mass fraction] 97 % Reta Siegel MD Work Phone: [facility] 05-28-2025 11:37-0400 Systolic blood pressure 106 mm[Hg] Reta Siegel MD Work Phone: [facility] 04-08-2025 14:58-0400 Body height 172.7 cm Aries Sarabia APRN.SR VICE PRESIDENT Work Phone: [facility] 04-08-2025 14:58-0400 Body mass index (BMI) [Ratio] 25.31 kg/m2 Aries Sarabia APRN.SR VICE PRESIDENT Work Phone: [facility] 04-08-2025 14:58-0400 Body weight 75.5 kg Aries Sarabia CRYSTAL SLICER.SR VICE PRESIDENT Work Phone: [facility] 04-08-2025 14:58-0400 SaO2% (BldA) [Mass fraction] 96 % Aries Sarabia APRN.SR VICE PRESIDENT Work Phone: [facility] 12-26-2024 19:28-0400 Body temperature 98.2 [degF] Eloina Chi MD Work Phone: [facility] 12-26-2024 19:28-0400 Diastolic blood pressure 70 mm[Hg] Eloina Chi MD Work Phone: [facility] 12-26-2024 19:28-0400 Heart rate 79 /min Eloina Chi MD Work Phone: [facility] 12-26-2024 19:28-0400 Respiratory rate 18 /min Eloina Chi MD Work Phone: [facility] 12-26-2024 19:28-0400 SaO2% (BldA) [Mass fraction] 96 % Eloina Chi MD Work Phone: [facility] 12-26-2024 19:28-0400 Systolic blood pressure 123 mm[Hg] Eloina Chi MD Work Phone: [facility] 12-26-2024 17:15-0400 Body height 172.72 cm Eloina Chi MD Work Phone: [facility] 12-26-2024 17:15-0400 Body mass index (BMI) [Ratio] 27.1 kg/m2 Eloina Chi MD Work Phone: [facility] 12-26-2024 17:15-0400 Body weight 80.8 kg Eloina Chi MD Work Phone: [facility] 10-04-2024 08:10-0500 Body temperature 98.2 [degF] Eloina Chi MD Work Phone: [facility] 10-04-2024 08:10-0500 Diastolic blood pressure 70 mm[Hg] Eloina Chi MD Work Phone: [facility] 10-04-2024 08:10-0500 Heart rate 77 /min Eloina Chi MD Work Phone: [facility] 10-04-2024 08:10-0500 Respiratory rate 12 /min Eloina Chi MD Work Phone: [facility] 10-04-2024 08:10-0500 SaO2% (BldA) [Mass fraction] 97 % Eloina Chi MD Work Phone: [facility] 10-04-2024 08:10-0500 Systolic blood pressure 120 mm[Hg] Eloina Chi MD Work Phone: [facility] 09-21-2024 15:10-0500 SaO2% (BldA) [Mass fraction] 100 % Amisha Sarabia MD Work Phone: [facility] 09-21-2024 15:08-0500 Body height 172.7 cm Amisha Sarabia MD Work Phone: [facility] 09-21-2024 15:08-0500 Body mass index (BMI) [Ratio] 25.09 kg/m2 Amisha Sarabia MD Work Phone: [facility] 09-21-2024 15:08-0500 Body weight 74.84 kg Amisha Sarabia MD Work Phone: [facility] 07-30-2024 13:58-0400 Body height 172.7 cm Phoebe Chamberlain MD Work Phone: [facility] 07-30-2024 13:58-0400 Body mass index (BMI) [Ratio] 25.38 kg/m2 Phoebe Chamberlain MD Work Phone: [facility] 07-30-2024 13:58-0400 Body weight 75.7 kg Phoebe Chamberlain MD Work Phone: [facility] 07-30-2024 13:58-0400 Diastolic blood pressure 78 mm[Hg] Phoebe Chamberlain MD Work Phone: [facility] 07-30-2024 13:58-0400 Systolic blood pressure 124 mm[Hg] Phoebe Chamberlain MD Work Phone: [facility] 06-25-2024 15:47-0400 Diastolic blood pressure 67 mm[Hg] Aries Sarabia CRYSTAL SLICER.SR VICE PRESIDENT Work Phone: [facility] 06-25-2024 15:47-0400 Heart rate 83 /min Aries Sarabia CRYSTAL SLICER.SR VICE PRESIDENT Work Phone: [facility] 06-25-2024 15:47-0400 Systolic blood pressure 105 mm[Hg] Aries Sarabia CRYSTAL SLICER.SR VICE PRESIDENT Work Phone: [facility] 06-25-2024 15:45-0400 Body height 172 cm Aries Sarabia CRYSTAL SLICER.SR VICE PRESIDENT Work Phone: [facility] 06-25-2024 15:45-0400 Body mass index (BMI) [Ratio] 25.62 kg/m2 Aries Sarabia CRYSTAL SLICER.SR VICE PRESIDENT Work Phone: [facility] 06-25-2024 15:45-0400 Body weight 75.8 kg Aries Sarabia CRYSTAL SLICER.SR VICE PRESIDENT Work Phone: [facility] 06-25-2024 15:45-0400 SaO2% (BldA) [Mass fraction] 99 % Aries Sarabia CRYSTAL SLICER.SR VICE PRESIDENT Work Phone: [facility] 03-17-2024 07:49-0400 Body height 172.7 cm Aries Sarabia CRYSTAL SLICER.SR VICE PRESIDENT Work Phone: [facility] 03-17-2024 07:49-0400 Body mass index (BMI) [Ratio] 26.62 kg/m2 Aries Sarabia CRYSTAL SLICER.SR VICE PRESIDENT Work Phone: [facility] 03-17-2024 07:49-0400 Body weight 79.4 kg Aries Sarabia CRYSTAL SLICER.SR VICE PRESIDENT Work Phone: [facility] 03-17-2024 07:49-0400 SaO2% (BldA) [Mass fraction] 98 % Aries Sarabia APRN.CNP Work Phone: [facility] 12-19-2023 14:01-0500 Body height 172.7 cm Amisha Sarabia MD Work Phone: [facility] 12-19-2023 14:01-0500 Body weight 82 kg Amisha Sarabia MD Work Phone: [facility] 12-19-2023 14:01-0500 SaO2% (BldA) [Mass fraction] 97 % Amisha Sarabia MD Work Phone: [facility] 09-25-2023 08:18-0500 Body height 172.72 cm MD Eloina Chi Work Phone: [facility] 09-25-2023 08:18-0500 Body mass index (BMI) [Ratio] 26.4 kg/m2 MD Eloina Chi Work Phone: [facility] 09-25-2023 08:18-0500 Body temperature 98.2 [degF] MD Eloina Chi Work Phone: [facility] 09-25-2023 08:18-0500 Body weight 78.92 kg MD Eloina Chi Work Phone: [facility] 09-25-2023 08:18-0500 Diastolic blood pressure 65 mm[Hg] MD Eloina Chi Work Phone: [facility] 09-25-2023 08:18-0500 Heart rate 63 /min MD Eloina Chi Work Phone: [facility] 09-25-2023 08:18-0500 Respiratory rate 15 /min MD Eloina Chi Work Phone: [facility] 09-25-2023 08:18-0500 Systolic blood pressure 103 mm[Hg] MD Eloina Chi Work Phone: [facility] Encounters Encounter Date Encounter Type Care Provider Facility Start: 08-18-2025 End: 08-18-2025 ambulatory Eloina Castilloke Facility:[facility] Start: 08-18-2025 ambulatory Eloina Castilloke [facility] Start: 08-11-2025 End: 08-11-2025 ambulatory Chalrusty Lula Facility:[facility] Start: 08-07-2025 ambulatory Jamarcus Moran Facili ty:[facility] Start: 08-07-2025 End: 08-10-2025 Evaluation and management of inpatient Jamarcus Moran Facility:[facility] Start: 08-04-2025 End: 08-04-2025 Dr. En Guerin DO [facility] Work Phone: Start: 08-04-2025 End: 08-04-2025 ambulatory En [place] [place]: 08-04-2025 Dr. Dev Reardon MD -[facility] Work Phone: Start: 08-03-2025 Dr. Dev Reardon MD -[facility] Work Phone: Start: 08-02-2025 Dr. Simone Collins MD [place] [place] [place] Start: 08-02-2025 Dr. Dev Reardon MD -[facility] Work Phone: Start: 08-01-2025 Dr. Dev Reardon MD -[facility] Work Phone: Start: 07-31-2025 Dr. Dev Reardon MD -[facility] Work Phone: Start: 07-30-2025 ambulatory Rain Gallagher [place] [place]: 07-30-2025 End: 08-04-2025 Evaluation and management of inpatient Eloina Chi MD Work Phone: -Progressive Care Unit Start: 07-30-2025 End: 08-04-2025 Dr. Dev Reardon MD -[facility] nit Work Phone: Start: 07-29-2025 ambulatory Maria Luisarutsy Chi Facility:[facility] Start: 07-29-2025 Dr. En Guerin DO -S peech Therapy Work Phone: Start: 07-28-2025 End: 07-28-2025 Dr. En Guerin DO [facility] Work Phone: Start: 07-28-2025 End: 07-28-2025 ambulatory Eloina Chi MD Work Phone: [facility] Start: 07-26-2025 ambulatory En Truong [place] [facility] [place] Start: 07-26-2025 Dr. En SALEHW -[facility] Start: 07-26-2025 End: 07-26-2025 Dr. Simone Collins MD -[facility] Work Phone: Start: 07-26-2025 End: 07-26-2025 ambulatory Eloina Chi MD Work Phone: [facility] Start: 07-22-2025 ambulatory En Guerin [place] [facility] [place] Start: 07-22-2025 Dr. En SALEHW -[facility] Start: 07-21-[address] En Jade on DO -Speech Therapy Work Phone: Start: 07-21-2025 End: 07-21-[address] En Guerin DO [facility] Work Phone: Start: 07-21-2025 End: 07-21-2025 Dr. En Guerin DO [facility] Work Phone: Start: 07-21-2025 End: 07-21-2025 ambulatory Eloina Chi MD Work Phone: [facility] Start: 07-20-[address] En Jade on DO -Radiation Oncology Start: 07-19-[address] En Jade on DO -[facility] Start: 07-19-2025 End: 07-19-[address] Simone Collins MD -[facility] Work Phone: Start: 07-19-2025 End: 07-19-2025 Dr. Simone Collins MD -[facility] Work Phone: Start: 07-19-2025 End: 07-19-2025 ambulatory Eloina Chi MD Work Phone: -[facility] Start: 07-14-[address] En Jade on DO -Radiation Oncology Start: 07-14-2025 End: 07-14-[address] En Guerin [facility] Work Phone: Start: 07-14-2025 End: 07-14-2025 Dr. En Guerin DO [facility] Work Phone: Start: 07-14-2025 End: 07-14-2025 ambulatory Eloina Chi MD Work Phone: -[facility] Start: 07-13-[address] En Jade on DO -Radiation Oncology Start: 07-12-2025 End: 07-12-2025 Patient encounter procedure Elizabeth COLE -[facility] Work Phone: Start: 07-12-2025 End: 07-12-[address] PA-C [facility] Work Phone: Start: 07-12-2025 End: 07-12-2025 ambulatory Eloina Chi MD Work Phone: [facility] Start: 07-12-[address] En Jade on DO -Speech Therapy Work Phone: Start: 07-12-2025 End: 07-12-2025 Patient encounter procedure Jayashree Justin CERAMIC TILE INSTALLATION HELPER-C -[facility] Work Phone: Start: 07-12-2025 End: 07-12-2025 Jayashree Justin CERAMIC TILE INSTALLATION HELPER-C -[facility] Work Phone: Start: 07-12-2025 End: 07-12-2025 ambulatory Eloina Chi MD Work Phone: -[facility] Start: 07-08-2025 End: 07-08-2025 ambulatory Eloina Chi MD Work Phone: -[facility] Start: 07-08-2025 End: 07-08-[address] En Guerin -Radiology [facility] Work Phone: Start: 07-08-2025 End: 07-08-20[facility] Work Phone: Start: 07-07-2025 End: 07-07-[address] En Guerin [facility] Work Phone: Start: 07-07-2025 End: 07-07-2025 Dr. En Guerin DO [facility] Work Phone: Start: 07-07-2025 End: 07-08-2025 ambulatory Eloina Chi MD Work Phone: [facility] Start: 07-05-2025 End: 07-05-[address] Simone Collins MD -[facility] Work Phone: Start: 07-05-2025 End: 07-05-2025 Dr. Simone Collins MD -[facility] Work Phone: Start: 07-05-2025 End: 07-05-2025 ambulatory Eloina Chi MD Work Phone: [facility] Start: 06-30-2025 Non-patient / Non-visit Dr. Handy Ng MD -[facility] Start: 06-30-2025 End: 06-30-2025 Admission to same day surgery center Dr. Kalyn Ng MD -[facility] Start: 06-30-2025 End: 06-30-2025 Dr. Kalyn Ng MD -[facility] Start: 06-30-2025 End: 06-30-2025 ambulatory Eloina Chi MD Work Phone: -[facility] Start: 06-29-2025 ambulatory Eloina Chi Facility:[facility] Start: 06-29-2025 Non-patient / Non-visit Dr. En berry DO -[facility] Start: 06-29-2025 Dr. En Guerin DO [facility] Start: 06-28-[address] En Jade on DO -[facility] Start: 06-28-2025 End: 06-28-2025 Patient encounter procedure Jayashree Justin [facility] Work Phone: Start: 06-28-2025 End: 06-28-2025 Jayashree GarciaJustin CERAMIC TILE INSTALLATION [facility] Work Phone: Start: 06-28-2025 End: 06-28-2025 ambulatory Eloina Chi MD Work Phone: [facility] Start: 06-25-2025 End: 06-29-2025 Telephone encounter Aries Sarabia APRN.SR VICE PRESIDENT Work Phone: Neurology Comment on above: Patient Update Start: 06-22-2025 ambulatory Eloina Chi Facility:[facility] Start: 06-22-2025 Non-patient / Non-visit Dr. En berry -[facility] Start: 06-22-2025 Dr. En Guerin DO [facility] Start: 06-22-[address] En Jade on DO -Radiation Oncology Start: 06-22-2025 End: 06-22-[address] Simone Collins MD -[facility] Work Phone: Start: 06-22-2025 End: 06-22-2025 Dr. Simone Collins MD -[facility] Work Phone: Start: 06-22-2025 End: 06-22-2025 ambulatory Eloina Chi MD Work Phone: [facility] Start: 06-21-2025 End: 06-21-[address] Kalyn Ng MD -[facility] Work Phone: Start: 06-21-2025 End: 06-21-2025 Dr. Kalyn Ng MD -[facility] Work Phone: Start: 06-21-2025 End: 06-21-2025 ambulatory Eloina Chi MD Work Phone: [facility] Start: 06-17-2025 End: 06-17-[address] En Guerin DO [facility] Work Phone: Start: 06-17-2025 End: 06-17-2025 [facility]. [facility] Work Phone: Start: 06-17-2025 End: 06-17-2025 ambulatory Eloina Chi MD Work Phone: [facility] Start: 06-15-2025 End: 06-15-2025 ambulatory Eloina Chi MD Work Phone: [facility] Start: 06-15-2025 End: 06-15-2025 Patient encounter procedure Reta Siegel MD -[facility] Start: 06-15-2025 End: 06-15-2025 Reta Siegel MD -[facility] Start: 06-15-2025 End: 06-15-2025 ambulatory [facility] Facility:[facility] Start: 06-10-2025 Non-patient / Non-visit Cherelle Delgado si ASSISTANT TEACHER PRIMARY -[facility] Work Phone: Start: 06-10-2025 Cherellebess Maher ASSISTANT TEACHER PRIMARY -[facility] Work Phone: Start: 06-10-2025 ambulatory [facility] Facility:[facility] Start: 06-08-2025 End: 06-09-2025 ambulatory Reta Siegel MD Work Phone: [facility] Start: 06-08-2025 End: 06-08-2025 Telephone encounter Reta Siegel MD Work Phone: [facility] Start: 06-04-2025 End: 06-04-2025 Telemedicine consultation with patient Reta Siegel MD Work Phone: [facility] Comment on above: 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); 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); Former smoker Start: 06-04-2025 End: 06-04-2025 ambulatory [facility] Start: 05-31-2025 End: 05-31-2025 ambulatory Eloina Chi MD Work Phone: -Physical Therapy Start: 05-31-2025 End: 05-31-2025 Discharged Recurring ARIES GRIDER -Physical Therapy Work Phone: Start: 05-31-2025 End: 05-31-2025 ARIES GRIDER -Physical Therapy Work Phone: Start: 05-28-2025 End: 05-28-2025 ambulatory [facility] Start: 05-28-2025 End: 05-28-2025 Office consultation new/estab patient 80 min Reta Siegel MD Work Phone: [place] [facility] Comment on above: Tonsillar mass (Prim mary Dx); 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) Start: 05-25-2025 End: 05-25-2025 ambulatory Eloina Chi MD Work Phone: -Physical Therapy Start: 05-25-2025 End: 05-25-2025 Discharged Recurring ARIES GRIDER -Physical Therapy Work Phone: Start: 05-25-2025 Registered Recurring ARIES ESPINOSA CERAMIC TILE INSTALLATION HELPER -Physical Therapy Work Phone: Start: 05-14-2025 End: 05-14-2025 ambulatory [facility] Start: 05-14-2025 End: 05-14-2025 Subsequent hospital visit by physician Jess [facility] Radiology Comment on above: Tonsillar mass Start: 05-06-2025 Registered Recurring ARIES ESPINOSA CERAMIC TILE INSTALLATION HELPER -Physical Therapy Work Phone: Start: 05-03-2025 End: 05-03-2025 Telephone encounter Aries Sarabia APRN.SR VICE PRESIDENT Work Phone: Neurology Comment on above: Orders Start: 05-03-2025 End: 05-03-2025 ambulatory Eloina Chi MD Work Phone: -Cat Scan [facility] Start: 05-03-2025 End: 05-03-[address] Anusha Ward MD -Cat Scan [facility] Work Phone: Start: 05-03-2025 End: 05-03-2025 Dr. Anusha Ward MD -Cat Scan [facility] Work Phone: Start: 05-03-2025 End: 05-03-2025 ambulatory Chalon Lula Facility:[facility] Start: 04-08-2025 End: 04-08-2025 Patient encounter procedure Aries Sarabia APRN.CNP Work Phone: Neurology Comment on above: Parkinson's disease without dyskinesia, with fluctuating manifestations (HCC) (Primary Dx); Orthostatic hypotension; Sialorrhea Start: 04-08-2025 End: 04-08-2025 ambulatory ARIES SARABIA Facility:[facility] Start: 03-01-2025 End: 03-01-2025 ambulatory Eloina Chi MD Work Phone: [facility] Work Phone: Start: 03-01-2025 End: 03-01-2025 Patient encounter procedure Ariel Duque PA -Laboratory Specimen Work Phone: Start: 03-01-2025 End: 03-01-2025 ambulatory Chalon Lula Facility:[facility] Start: 02-23-2025 End: 02-23-2025 Refill Amisha Sarabia MD Work Phone: Neurology Comment on above: Refill Request Start: 02-08-2025 End: 02-08-2025 Patient encounter procedure Ariel Duque PA -Laboratory Specimen Work Phone: Start: 02-08-2025 End: 02-08-2025 ambulatory Maria Luisaon Lula Facility:[facility] Start: 12-28-2024 End: 12-28-2024 ambulatory Eloina Chi MD Work Phone: [facility] Work Phone: Start: 12-28-2024 End: 12-28-2024 Patient encounter procedure Ariel GARCIAS -Laboratory, Specimen Work Phone: Start: 12-28-2024 End: 12-28-2024 ambulatory [facility] Facility:[facility] Start: 12-26-2024 End: 12-26-2024 Emergency department patient visit Eloina Chi MD Work Phone: -Emergency Department Work Phone: Start: 12-23-[address] Eloina Chi MD -Speech Therapy Work Phone: Start: 12-23-2024 End: 12-23-2024 ambulatory [facility] Facility:[facility] Start: 11-06-2024 End: 11-09-2024 Telephone encounter Phoebe Chamberlain MD Work Phone: [facility] [place] Comment on above: Medication Authoriza tion Start: 10-04-2024 End: 10-04-2024 Patient encounter procedure Ranulfo Juarez Hubert CERAMIC TILE INSTALLATION HELPER-C [facility] Work Phone: Start: 10-04-2024 End: 10-04-2024 ambulatory [facility] [place] Start: 09-28-2024 End: 09-30-2024 ambulatory Phoebe Chamberlain MD Work Phone: [facility] [place] Comment on above: Motegrity - patient Glenn Parada Start: 09-21-2024 End: 09-22-2024 ambulatory AMISHA SARABIA Facility:[facility] Start: 09-21-2024 End: 09-22-2024 Office outpatient visit 25 minutes Amisha Sarabia MD Work Phone: Neurological [facility] Comment on above: Parkinson's disease without dyskinesia or fluctuating manifestations (HCC) (Primary Dx); Cognitive and behavioral changes Start: 08-10-2024 End: 08-12-2024 Telephone encounter Aries Sarabia APRN.CNP Work Phone: Neurology Comment on above: Medication Question Start: 07-31-2024 End: 07-31-2024 ambulatory PHOEBE CHUNGSARAH Facility:[facility] Start: 07-30-2024 End: 07-30-2024 ambulatory PHOEBE CHUNGSARAH Facility:[facility] Start: 07-30-2024 End: 07-30-2024 Office outpatient new 60 minutes Phoebe Chamberlain MD Work Phone: [facility] [place] Comment on above: Constipation, unspec ified constipation type (Primary Dx); Intestinal malabsorption, unspecified type Start: 06-25-2024 End: 06-25-2024 Patient encounter procedure Aries Sarabia APRN.SR VICE PRESIDENT Work Phone: Neurology Comment on above: Orthostatic hypotens ion (Primary Dx); Parkinson's disease without dyskinesia, with fluctuating manifestations (HCC) Start: 03-17-2024 End: 03-17-2024 Patient encounter procedure Aries Sarabia APRN.SR VICE PRESIDENT Work Phone: Neurology Comment on above: Parkinson's disease without dyskinesia or fluctuating manifestations (HCC) (Primary Dx); Orthostatic hypotension; Constipation, unspecified constipation type Start: 12-19-2023 End: 12-19-2023 Office outpatient new 45 minutes Amisha Sarabia MD Work Phone: Neurology Comment on above: Parkinson's disease without dyskinesia, with fluctuating manifestations (HCC) (Primary Dx) Start: 09-25-2023 End: 09-25-2023 Patient encounter procedure MD Eloina Chi Work Phone: [facility] Work Phone: Start: 09-20-2023 End: 09-20-2023 ambulatory MD Eloina Chi Work Phone: [facility] Work Phone: Start: 09-20-2023 End: 09-20-2023 Patient encounter procedure MD Eloina Chi Work Phone: [facility] Procedures Date Procedure Procedure Detail Performing Clinician Start: 08-10-2025 Estimated creatinine clearance Eloina barber MD Work Phone: Start: 08-10-2025 Mean corpuscular hemoglobin concentration determination Eloina Chi MD Work Phone: Start: 08-10-2025 Neutrophil count Eloina Chi MD Work Phone: Start: 08-10-2025 Nucleated red blood cell count procedure Eloina Chi MD Work Phone: Start: 08-10-2025 Platelet mean volume determination Ho Chi MD Work Phone: Start: 08-10-2025 Serum inorganic phosphate measurement Eloina Chi MD Work Phone: Start: 08-09-2025 Estimated creatinine clearance Eloina barber MD Work Phone: Start: 08-09-2025 Mean corpuscular hemoglobin concentration determination Eloina Chi MD Work Phone: Start: 08-09-2025 Neutrophil count Eloina Chi MD Work Phone: Start: 08-09-2025 Nucleated red blood cell count procedure Eloina Chi MD Work Phone: Start: 08-09-2025 Platelet mean volume determination Ho Chi MD Work Phone: Start: 08-07-2025 Serum inorganic phosphate measurement Eloina Chi MD Work Phone: Start: 08-07-2025 End: 08-07-2025 Streptococcus pneumoniae antigen assay Eliona Chi MD Work Phone: Start: 08-07-2025 Urine microscopy: red cells Eloina Chi MD Work Phone: Start: 08-07-2025 Urnls dip stick/tablet reagent auto microscopy Eloina Chi MD Work Phone: Start: 08-07-2025 Calculation of international normalized ratio Eloina Chi MD Work Phone: Start: 08-07-2025 Lactic acid measurement Eloina Chi MD Work Phone: Start: 08-04-2025 Estimated creatinine clearance Eloina barber MD Work Phone: Start: 08-04-2025 Mean corpuscular hemoglobin concentration determination Eloina Chi MD Work Phone: Start: 08-04-2025 Myelocyte percent differential count Eloina Chi MD Work Phone: Start: 08-04-2025 Neutrophil count Eloina Chi MD Work Phone: Start: 08-04-2025 Neutrophil percent differential count Eloina Chi MD Work Phone: Start: 08-04-2025 Nucleated red blood cell count procedure Eloina Chi MD Work Phone: Start: 08-04-2025 Platelet mean volume determination Ho Chi MD Work Phone: Start: 08-04-2025 Serum inorganic phosphate measurement Eloina Chi MD Work Phone: Start: 08-03-2025 Videoswallow Eloina Chi MD Work Phone: Start: 08-02-2025 Bacterial nucleic acid assay Eloina Chi MD Work Phone: Start: 08-02-2025 Nucleated red blood cell count procedure Eloina Chi MD Work Phone: Start: 07-30-2025 CT angiography of chest with contrast Eloina Chi MD Work Phone: Start: 07-30-2025 Bacterial nucleic acid assay Eloina Chi MD Work Phone: Start: 07-30-2025 D-dimer assay, quantitative Eloina Chi MD Work Phone: Start: 07-30-2025 Urine microscopy: red cells Eloina Chi MD Work Phone: Start: 07-30-2025 Urnls dip stick/tablet reagent auto microscopy Eloina Chi MD Work Phone: Start: 07-30-2025 Plain chest X-ray Eloina Chi MD Work Phone: Start: 07-30-2025 Lactic acid measurement Eloina Chi MD Work Phone: Start: 07-30-2025 Calculation of international normalized ratio Eloina Chi MD Work Phone: Start: 07-30-2025 Blood culture Eloina Chi MD Work Phone: Start: 07-30-2025 Nucleic acid assay Eloina Chi MD Work Phone: Start: 07-30-2025 Urine culture Eloina Chi MD Work Phone: Start: 07-26-2025 Estimated creatinine clearance Eloina barber MD Work Phone: Start: 07-26-2025 Mean corpuscular hemoglobin concentration determination Eloina Chi MD Work Phone: Start: 07-26-2025 Neutrophil count Eloina Chi MD Work Phone: Start: 07-26-2025 Nucleated red blood cell count procedure Eloina Chi MD Work Phone: Start: 07-26-2025 Platelet mean volume determination Ho Chi MD Work Phone: Start: 07-19-2025 Estimated creatinine clearance Eloina barber MD Work Phone: Start: 07-12-2025 Estimated creatinine clearance Eloina barber MD Work Phone: Start: 07-08-2025 Videoswallow Eloina Chi MD Work Phone: Start: 07-05-2025 Lactate dehydrogenase measurement Eloina Chi MD Work Phone: Start: 06-30-2025 Plain chest X-ray Eloina Chi MD Work Phone: Start: 06-30-2025 Esophagogastroduodenoscopy Eloina Segovia Work Phone: Start: 06-30-2025 Implantation to cardiovascular system Eloina Chi MD Work Phone: Start: 06-30-2025 Fluoroscopic guidance Eloina Chi MD Work Phone: Start: 06-28-2025 Estimated creatinine clearance Eloina barber MD Work Phone: Start: 06-15-2025 Positron emission tomography with computed tomography Eloina Chi MD Work Phone: Start: 05-28-2025 Level ii surg pathology gross&microscopic exam Reta Siegel MD Work Phone: Start: 05-28-2025 Biopsy oropharynx Reta Siegel MD Work Phone: Start: 05-28-2025 Laryngoscopy flexible diagnostic Reta mayes MD Work Phone: Start: 05-14-2025 Radiology Comparison study - date and time Reta Siegel MD Work Phone: Start: 05-03-2025 CT of soft tissues of neck with contrast Eloina Chi MD Work Phone: Start: 03-01-2025 Bacteria identification test Eloina Chi MD Work Phone: Start: 02-08-2025 Bacteria identification test Eloina Chi MD Work Phone: Start: 12-28-2024 Bacteria identification test Eloina Chi MD Work Phone: Start: 12-28-2024 Throat culture Eloina Chi MD Work Phone: Start: 12-26-2024 Plain x-ray of hand Eloina Chi MD Work Phone: Start: 12-26-2024 CT cervical spine without contrast Ho Chi MD Work Phone: Start: 12-26-2024 CT of head without contrast Eloina Chi MD Work Phone: Start: 09-21-2024 BACH SCREENING TEST Stephan Macario MD Work Phone: Start: 09-25-2023 X-ray of lumbosacral spine MD Eloina rehman Work Phone: Start: 09-25-2023 Radiography of thoracic spine MD Eloina Chi Work Phone: Start: 09-25-2023 X-ray of unilateral ribs, two views without x-ray of chest MD Eloina Chi Work Phone: Plan of Treatment Date Care Activity Detail Author Start: 12-26-2034 Tetanus vaccination Tetanus (Td or Tdap) Booster [facility] Start: 12-26-2034 Urine microalbumin profile DTaP,Tdap,Td Vaccine (2 - Td or Tdap) [facility] Start: 07-31-2027 Diabetes Screening Diabetes Screening [facility] Start: 12-12-2025 Annual Wellness Visit (G0439) Annual Wellness Visit (G0439) [facility] Start: 10-12-2025 End: 10-12-2025 Patient encounter procedure 10/12/2025 11:00 AM EST Office Visit Neurology [address] [id number] Aries Sarabia, DENNIS.SR VICE PRESIDENT [address] [address] 6 month follow up Neurology Comment on above: 6 month follow up Start: 09-17-2025 End: 09-17-2025 Patient encounter procedure 09/17/2025 8:45 AM EST Office Visit [facility] Otolaryngology (ENT) [address] [place] [address] Reta Siegel MD [address] [place], [place] [id number] [facility] Otolaryngology (ENT) Start: 08-18-2025 End: 08-18-2025 -[facility] Work Phone: Start: 08-18-2025 -[facility] Work Phone: Start: 08-12-2025 -Radiation Oncology Start: 08-11-2025 End: 08-11-2025 -[facility] Work Phone: Start: 08-10-[address] [facility] Start: 08-10-2025 -[facility] Work Phone: Start: 08-10-2025 End: 08-10-[address] [facility] Start: 08-09-[address] [facility] Start: 08-09-[address] [facility] Start: 08-09-2025 -[facility] Work Phone: Start: 08-09-2025 Vital signs measurements [facility] Start: 08-08-2025 [facility] Start: 08-07-[address] [facility] Start: 08-07-2025 Legionella pneumophila antigen assay [facility] Start: 08-07-[address] [facility] Start: 08-07-2025 Streptococcus pneumoniae antigen assay [facility] Start: 08-07-[address] [facility] Start: 08-07-2025 Following clinical pathway protocol [facility] Start: 08-07-2025 Assessment of risk of venous thromboembolism [facility] Start: 08-07-2025 Insertion of catheter into peripheral vein [facility] Start: 08-07-2025 Measuring intake and output [facility] Start: 08-07-[address] [facility] Start: 08-07-2025 Providing care according to standard [facility] Start: 08-07-2025 Provision of activity privileges [facility] Start: 08-07-2025 Referral for physical therapy [facility] Start: 08-07-2025 Referral to occupational therapist [facility] Start: 08-07-[address] [facility] Start: 08-07-2025 End: 08-10-2025 [facility] Start: 08-07-[address] [facility] Start: 08-07-[address] [facility] Start: 08-07-2025 CT of thorax with contrast [facility] Start: 08-07-2025 End: 08-07-2025 [facility] Start: 08-07-2025 Plain chest X-ray [facility] Start: 08-07-[address] [facility] Start: 08-06-2025 [facility] Start: 08-04-2025 End: 08-04-2025 -[facility] Work Phone: Start: 08-04-[address] [facility] Start: 08-04-2025 -[facility] Work Phone: Start: 08-04-2025 End: 08-04-[address] [facility] Start: 08-03-2025 -[facility] Work Phone: Start: 08-03-[address] [facility] Start: 08-02-2025 [facility] Start: 08-02-2025 Bacterial nucleic acid assay [facility] Start: 08-02-[address] [facility] Start: 08-02-2025 Removal of urinary catheter [facility] Start: 08-01-2025 Following clinical pathway protocol [facility] Start: 08-01-2025 [facility] Start: 08-01-[address] [facility] Start: 08-01-2025 -[facility] Work Phone: Start: 07-31-2025 -[facility] Work Phone: Start: 07-31-[address] [facility] Start: 07-30-2025 CT angiography of chest with contrast [facility] Start: 07-30-2025 Following clinical pathway protocol [facility] Start: 07-30-2025 Assessment of risk of venous thromboembolism [facility] Start: 07-30-[address] [facility] Start: 07-30-2025 Insertion of catheter into peripheral vein [facility] Start: 07-30-2025 Measuring intake and output [facility] Start: 07-30-2025 Providing care according to standard [facility] Start: 07-30-2025 Referral for physical therapy [facility] Start: 07-30-2025 Referral to occupational therapist [facility] Start: 07-30-2025 Vital signs measurements [facility] Start: 07-30-2025 End: 08-04-2025 [facility] Start: 07-30-[address] [facility] Start: 07-30-2025 Plain chest X-ray [facility] Start: 07-30-2025 [facility] Start: 07-30-[address] [facility] Start: 07-30-[address] [facility] Start: 07-30-[address] [facility] Start: 07-30-2025 Patient referral to dietitian [facility] Start: 07-29-2025 -Speech Therapy Work Phone: Start: 07-28-2025 End: 07-28-2025 -[facility] Work Phone: Start: 07-26-2025 Vital signs measurements [facility] Start: 07-19-2025 [facility] Start: 07-19-2025 Vital signs measurements [facility] Start: 07-16-2025 COVID-19 Vaccine (3 - Pfizer risk series) COVID-19 Vaccine (3 - Pfizer risk series) [facility] Start: 07-14-2025 Influenza vaccination [facility] Start: 07-13-2025 Registered Recurring Registered Recurring -Radiation Oncolog y Start: 07-12-2025 End: 07-12-2025 Patient encounter procedure Port-A-Cath in place -[facility] Work Phone: Start: 07-12-2025 Registered Recurring Registered Recurring -Speech Therapy Work Phone: Start: 07-12-2025 End: 07-12-2025 Patient encounter procedure Chemotherapy management, encounter for -[facility] Work Phone: Start: 07-12-2025 Vital signs measurements [facility] Start: 07-08-2025 Videoswallow Swallowing Function w/Video [facility] Start: 07-08-2025 Patient encounter procedure Registered Clinical -Radiology [facility] Work Phone: Start: 07-07-2025 End: 07-07-2025 Patient encounter procedure Squamous cell carcinoma of oropharynx -[facility] Work Phone: Start: 07-05-2025 Venous catheter care management [facility] Start: 07-05-2025 Vital signs measurements [facility] Start: 06-30-2025 Anesthesia upper gi endoscopic px nos [facility] Start: 06-30-2025 Egd transoral biopsy single/multiple [facility] Start: 09-17-2025 Insj tunneled ctr vad w/subq port age 4 yr/> [facility] Start: 06-30-2025 Upper gastrointestinal endoscopy for directed placement of percutaneous gastrostomy tube [facility] Start: 06-30-[address] [facility] Start: 06-15-2025 Positron emission tomography with computed tomography 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) Former smoker Expected: 06/04/2025, Expires: 06/03/2026 [employer] Work Phone: Comment on above: Expected: 06/04/2025, Expires: Start: 05-28-2025 End: 05-28-2025 Patient encounter procedure 05/28/2025 1:00 PM EDT Office Visit [facility] Otolaryngology (ENT) [address] [place] [address] Reta Siegel MD [address] [place] [address] [facility] Otolaryngology (ENT) Start: 04-08-2025 End: 04-08-2025 Patient encounter procedure 04/08/2025 3:00 PM EDT Office Visit Neurology [address] [place] [phone] Aries Sarabia APRN.SR VICE PRESIDENT [address] [place] [address] Follow up for Parkinson's Neurology Comment on above: Follow up for Parkinson's Start: 03-01-2025 Throat culture Throat Culture [facility] Start: 12-26-2024 [facility] Start: 12-20-2024 Covid-19 Vaccine ( season) Covid-19 Vaccine ( season) [facility] Start: 12-12-2024 Annual Wellness Visit (G0439) Annual Wellness Visit (G0439) [facility] Start: 10-22-2024 Covid-19 Vaccine ( season) Covid-19 Vaccine () [facility] Start: 10-14-2024 Advance Directive Discussion Advance Directive Discussion [facility] Start: 10-14-2024 Medicare Advantage Annual Wellness Visit Medicare Advantage Annual Wellness Visit [facility] Start: 09-21-2024 End: 09-21-2024 Patient encounter procedure 09/21/2024 3:30 PM EST Office Visit [facility] [address] [facility] [place] [address] Amisha Sarabia MD [address] [place] [address] follow up Neurological [facility] Comment on above: follow up Start: 07-31-2024 End: 07-31-2024 ambulatory 07/31/2024 10:30 AM EDT Results Only [facility] [address] [place] [address] Constipation, unspecified constipation type [K59.00] [facility] Comment on above: Constipation, unspecified constipation t ype [K59.00] Start: 07-30-2024 End: 10-29-2024 CBC W Auto Differential panel - Blood COMPLETE BLOOD COUNT AND DIFFERENTIAL Lab Routine Constipation, unspecified constipation type Expected: 07/30/2024, Expires: 10/29/2024 [facility] Comment on above: Expected: 07/30/2024, Expires: Start: 07-30-2024 End: 10-29-2024 [facility] HLA-DQ GENOTYPE [facility] HLA-DQ GENOTYPE Lab Routine Intestinal malabsorption, unspecified type Expected: 07/30/2024, Expires: 10/29/2024 [facility] Comment on above: Expected: 07/30/2024, Expires: Start: 07-30-2024 End: 10-29-2024 CELIAC SCREEN WITH REFLEX CELIAC SCREEN WITH REFLEX Lab Routine Intestinal malabsorption, unspecified type Expected: 07/30/2024, Expires: 10/29/2024 [facility] Comment on above: Expected: 07/30/2024, Expires: Start: 07-30-2024 End: 10-29-2024 Comprehensive metabolic 2000 panel - Serum or Plasma COMPREHENSIVE METABOLIC PANEL Lab Routine Constipation, unspecified constipation type Expected: 07/30/2024, Expires: 10/29/2024 [facility] Work Phone: Comment on above: Expected: 07/30/2024, Expires: Start: 07-30-2024 End: 07-30-2024 Patient encounter procedure 07/30/2024 2:00 PM EDT Office Visit [facility] [place] [address] [place] [address] Phoebe Chamberlain MD [address] [facility] [place] [address] 2nd opinion, chronic constipation, pt sees Dr Amezcua in [place], adv to have rec faxed [facility] [place] Comment on above: 2nd opinion, chronic constipation, pt se es Dr Amezcua in [place], adv to have rec faxed Start: 07-30-2024 End: 10-29-2024 Thyrotropin [Units/volume] in Serum or Plasma THYROID STIMULATING HORMONE Lab Routine Constipation, unspecified constipation type Expected: 07/30/2024, Expires: 10/29/2024 [facility] Comment on above: Expected: 07/30/2024, Expires: Start: 07-13-2024 COVID-19 Vaccine (2 - Pfizer risk series) COVID-19 Vaccine (2 - Pfizer risk series) [facility] Start: 06-25-2024 End: 06-25-2024 Patient encounter procedure 06/25/2024 4:00 PM EDT Office Visit Neurology [address] [phone] Aries Sarabia, CRYSTAL SLICER.SR VICE PRESIDENT [address] [place] [address] 6 month follow up Neurology Comment on above: 6 month follow up Start: 06-14-2024 Influenza vaccination [facility] Start: 10-14-2023 Advance Directive Discussion Advance Directive Discussion [facility] Start: 10-14-2023 Depression Assessment Depression Assessment [facility] Start: 06-14-2023 Covid-19 Vaccine ( season) Covid-19 Vaccine ( season) [facility] Start: 06-14-2023 Influenza vaccination Influenza Vaccine (#1) [facility] Start: 12-31-2018 RSV Vaccine (1 - 1-dose 75+ series) RSV Vaccine (1 - 1-dose 75+ series) [facility] Start: 12-31-2018 RSV vaccine (adult) (1 - 1-dose 75+ series) RSV vaccine (adult) (1 - 1-dose 75+ series) [facility] Start: 12-31-2008 Pneumococcal Vaccine: 65+ (1 of 1 - PCV) Pneumococcal Vaccine: 65+ (1 of 1 - PCV) [facility] Start: 2004 Hepatitis B (HBV) Vaccine (optional start 60+ years) Hepatitis B (HBV) Vaccine (optional start 60+ years) [facility] Start: 2004 RSV Vaccine (1 - 1-dose 60+ series) RSV Vaccine (1 - 1-dose 60+ series) [facility] Start: 12-31-1993 Pneumococcal vaccination Pneumococcal Vaccine(s) (50+ yrs) (1 of 1 - PCV) [facility] Start: 12-31-1993 Pneumococcal Vaccine: 50+ (1 of 1 - PCV) Pneumococcal Vaccine: 50+ (1 of 1 - PCV) [facility] Start: 12-31-1993 Shingles (RZV) Vaccine (1 of 2) Shingles (RZV) Vaccine (1 of 2) [facility] Start: 12-[facility]-1993 Shingrix Vaccine (1 of 2) Shingrix Vaccine (1 of 2) [facility] Start: 12-31-1988 Diabetes Screening Diabetes Screening [facility] Start: 12-31-1962 Hepatitis A (HAV) Vaccine (optional start 19+ years) Hepatitis A (HAV) Vaccine (optional start 19+ years) [facility] Start: 12-31-1962 Pneumococcal vaccination Pneumococcal Vaccine(s) (50+ yrs) (1 of 2 - PCV) [facility] Start: 12-31-1962 Shingles (RZV) Vaccine (1 of 2) Shingles (RZV) Vaccine (1 of 2) [facility] Start: 12-31-1962 Urine microalbumin profile DTaP,Tdap,Td Vaccine (1 - Tdap) [facility] Start: 12-31-1961 Anxiety Screening Anxiety Screening [facility] Start: 12-31-1961 Depression Screening Depression Screening [facility] Start: 1945 Covid-19 Vaccine (#1) Covid-19 Vaccine (#1) [facility] Anion gap in Serum o r Plasma [facility] Anion gap in Serum o r Plasma [facility] Bacteria identified in Throat by Culture [facility] BUN/Creatinine ratio [facility] BUN/Creatinine ratio [facility] Calcium [Mass/volume ] in Serum or Plasma [facility] Calcium [Mass/volume ] in Serum or Plasma [facility] Carbon dioxide, tota l [Moles/volume] in Central venous blood [facility] Carbon dioxide, tota l [Moles/volume] in Central venous blood [facility] Creatinine [Mass/vol ume] in Serum or Plasma [facility] Creatinine [Mass/vol ume] in Serum or Plasma [facility] Erythrocyte mean corpuscular volume determination [facility] Erythrocyte mean corpuscular volume determination [facility] Glucose [Mass/volume ] in Serum or Plasma [facility] Glucose [Mass/volume ] in Serum or Plasma [facility] Hematocrit [Volume Fraction] of Blood [facility] Hematocrit [Volume Fraction] of Blood [facility] Hemoglobin [Mass/vol ume] in Blood [facility] Hemoglobin [Mass/vol ume] in Blood [facility] Leukocytes [#/volume ] in Blood [facility] Leukocytes [#/volume ] in Blood [facility] Mean corpuscular hemoglobin concentration determination [facility] Mean corpuscular hemoglobin concentration determination [facility] Mean corpuscular hemoglobin determination [facility] Mean corpuscular hemoglobin determination [facility] Measurement of renal function [facility] Measurement of renal function [facility] Neutrophil count [facility] Neutrophil count [facility] Neutrophil percent differential count [facility] Neutrophil percent differential count [facility] Patient Education ED Abrasion ED Hand Contusion ED Facial Contusion ED Head Injury (Adult) [facility] Work Phone: Patient referral [facility] Work Phone: Platelets [#/volume] in Blood [facility] Platelets [#/volume] in Blood [facility] Potassium measurement [facility] Potassium measurement [facility] Red blood cell count [facility] Red blood cell count [facility] Red cell distributio n width determination [facility] Red cell distributio n width determination [facility] Serum chloride measurement [facility] Serum chloride measurement 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 Urea nitrogen [Mass/volume] in Serum or Plasma [facility] Immunizations Immunization Date Immunization Notes Care Provider [facility] 12-26-2024 tetanus toxoid, reduced diphtheria toxoid, and acellular pertussis vaccine, adsorbed Eloina Chi MD Work Phone: [facility] 06-22-2024 COVID-19 vaccine, ag e 12+ yr ([facility] Phoebe Chamberlain MD Work Phone: [facility] 06-22-2024 influenza, high dose seasonal, preservative-free [facility] 06-22-2024 influenza virus vaccine, unspecified formulation Aries Sarabia APRN.CNP Work Phone: [facility] Payers Date Payer Category Payer Self-pay 2022 Medicare [employer] MEDICARE A ETNA MEDICARE PPO [id number] 2022-Present [phone] [address] [place] [address] PPO [id number] 2022 Medicare (Managed Care) 1.2. [id number] 2022 Private Health Insurance [facility] [id number] 1944 Unknown [id number] 2.16.840.1.059675.3.579.2.7 32 1944 Unknown [id number] 2.16.840.1.175355.3.579.2.7 32 1944 Unknown [id number] 2.16.840.1.232497.3.579.2.7 32 Unknown [id number] 2.16.840.1.599296.3.579.2.4 62 Unknown [id number] 2.16.840.1.965091.3.579.2.4 62 Unknown [id number] 2.16.840.1.271870.3.579.2.4 62 Unknown [id number] 2.16.840.1.208001.3.579.2.4 62 Unknown [id number] 2.16.840.1.768728.3.579.2.4 62 Unknown [id number] 2.16.840.1.709064.3.579.2.4 62 Unknown [id number] 2.16.840.1.244940.3.579.2.4 62 Unknown [id number] 2.16.840.1.559484.3.579.2.4 62 Unknown [id number] 2.16.840.1.778822.3.579.2.4 62 Unknown [id number] 2.16.840.1.511934.3.579.2.4 62 Unknown [id number] 2.16.840.1.449694.3.579.2.4 62 Unknown [id number] 2.16.840.1.333617.3.579.2.4 62 Unknown [id number] 2.16.840.1.056028.3.579.2.4 62 Unknown [id number] 2.16.840.1.398503.3.579.2.4 62 Unknown [id number] 2.16.840.1.540488.3.579.2.4 62 Unknown [id number] 2.16.840.1.181232.3.579.2.4 62 Unknown [id number] 2.16.840.1.018795.3.579.2.4 62 Unknown [id number] 2.16.840.1.402064.3.579.2.4 62 Unknown [id number] 2.16.840.1.616092.3.579.2.4 62 Unknown [id number] 2.16.840.1.736145.3.579.2.4 62 Unknown [id number] 2.16.840.1.256824.3.579.2.4 62 Unknown 1938 2.16.840.1.187781.3.579.2.4 62 Unknown [id number] 2.16.840.1.729576.3.579.2.4 62 Unknown [id number] 2.16.840.1.618596.3.579.2.4 62 Unknown [id number] 2.16.840.1.152932.3.579.2.4 62 Unknown [id number] 2.16.840.1.788456.3.579.2.4 62 Unknown [id number] 2.16.840.1.360667.3.579.2.4 62 Unknown [id number] 2.16.840.1.500439.3.579.2.4 62 Unknown [id number] 2.16.840.1.156865.3.579.2.4 62 Unknown [id number] 2.16.840.1.680815.3.579.2.4 62 Unknown [id number] 2.16.840.1.744783.3.579.2.4 62 Unknown [id number] 2.16.840.1.884657.3.579.2.4 62 Unknown [id number] 2.16.840.1.844798.3.579.2.4 62 Unknown [id number] 2.16.840.1.831201.3.579.2.4 62 Unknown [id number] 2.16.840.1.864626.3.579.2.4 62 Unknown [id number] 2.16.840.1.420239.3.579.2.4 62 Unknown [id number] 2.16.840.1.836107.3.579.2.4 62 Unknown [id number] 2.16.840.1.529207.3.579.2.4 62 Unknown [id number] 2.16.840.1.813546.3.579.2.4 62 Unknown [id number] 2.16.840.1.817943.3.579.2.4 62 Unknown [id number] 2.16.840.1.045675.3.579.2.4 62 Unknown [id number] 2.16.840.1.556038.3.579.2.4 62 Unknown [id number] 2.16.840.1.016911.3.579.2.4 62 Unknown [id number] 2.16.840.1.374543.3.579.2.4 62 Unknown [id number] 2.16.840.1.656161.3.579.2.4 62 Unknown [id number] 2.16.840.1.701791.3.579.2.4 62 Unknown [id number] 2.16.840.1.298939.3.579.2.4 62 Unknown [id number] 2.16.840.1.955608.3.579.2.4 62 Unknown [id number] 2.16.840.1.855921.3.579.2.4 62 Social History Date Type Detail Facility Tobacco smoking stat [facility] Unknown if ever smoked [facility] Work Phone: Start: 1945 Sex Assigned At Male W [facility] Start: 12-19-2023 End: 08-07-2025 Tobacco smoking status NHIS Ex-smoker [facility] End: 10-14-1969 History of tobacco use Current smoker [facility] End: 10-14-1969 History of tobacco use Cigarette Smoker [facility] Start: 12-19-2023 End: 06-25-2024 Tobacco use and exposure Smokeless tobacco non-user [facility] Start: 12-19-2023 End: 04-04-2025 History of Social function [facility] Start: 12-19-2023 End: 04-04-2025 Tobacco use panel [facility] Start: 10-11-2023 Adult Depression Screening Assessment 0 [facility] Start: 10-11-2023 Gender identity Identifies as male gender (finding) [facility] Start: 07-30-2024 End: 04-08-2025 Alcoholic beverage intake Ex-drinker (finding) [facility] Start: 12-26-2024 End: 05-13-2025 Sex Male (finding) [facility] Tobacco smoking stat [facility] Tobacco smoking consumption unknown [facility] Start: 1945 Sex assigned at Not on file M [facility] Medical Equipment Procedure Code Equipment Code Equipment Origin al Text Equipment Identifier Dates Insertion, vascular access port [id number]) [id number] FDA Start: 06-30-2025 EGD, with monitored anesthesia care ()[id number] FDA Start: 06-30-2025 Goals Date Patient Goal Desired Activity /State Functional Status Date Assessment Result Facility 08-10-2025 Functional status [facility] Work Phone: 08-09-2025 Functional status With Assist of 1 [facility] Work Phone: 08-04-2025 Functional status [facility] Work Phone: Mental Status Date Assessment Result Facility 08-10-2025 Cognitive function [facility]Name [facility] Work Phone: 08-09-2025 Cognitive function Voice/Name [facility] Work Phone: 08-04-2025 [facility] Work Phone: 06-30-2025 Cognitive function Voice/Name [facility] Work Phone: Clinical Notes 12-19-2023 to 08-10-2025 Note Date & Type Note Facility 08-10-2025 Note [facility] 08-04-2025 Discharge summary Note Date/Time August 04, 2025 11:43am [facility] Medical Records Department [address] [place] [address] Instructions for Home/Discharge Instructions 08/04/25 1036 MR#: [id number] Acct: [id number] Name: GLENN PARADA DEV Rep #:[id number] : 1945 80 From: Dev Segovia PCP: Dr. Eloina Chi MD Status:ADM IN Discharge Instructions DC O2, CPAP, BIPAP needs Home O2 Discharge instructions: No Follow Up Care Test Results: Test results from this visit will be discussed in further detail at your follow-up appointment, if applicable. Discharge Plan Admission Admit Date/Time: 07/30/25 19:55 Attending Provider: Dev Reardon Primary Care Provider: Eloina Chi Consulting Providers: Rain Gallagher; Alan Galaviz; Marco Carrero; Vicente Schofield; Tez Obando; Vaughn Garduno; Jamarcus Vaz; Marya Moss; Sundar Reid; Latasha Gutierrez; James Bangura; Debbie Frausto; Pato Cerda; Smooth Fall; Christelle Camejo; Brian Mendoza; Brady Pemberton; Lamont Armenta; Alva Langford; Pinky Santana; Kathrine Cox; Antonette Burroughs; Jc South; Johnathan Witt; Iain Obrien; Heather Velarde; Tara Cohn; Kusum Avina; Iain Bone; Brady Aldana; Omer Woods; Efrem Tanner; Hiral Carlin; ShayleeCarlos; Beltran Cheatham; Marilee Orourke; Marisol Mackey; Zaira Henriquez; Makeda Joyner; Russell Leach; Roxanne,Ihsan; Spenser Gavin; Nelida Ortega; Robert Kessler; Jamarcus Tao; Simone Collins; Jonathan Curtis; Maryjo Nichole; Alan Childress; Angel Mejia; Chester Sharpe; En Guerin; Jayashree Anderson [employer] Discharge Orders/Prescriptions Prescriptions: New chlorhexidine gluconate 0.12 % Mouthwash 15 ml PO TID 84 Days Qty: 1893 0RF potassium chloride 20 mEq/15 mL Liquid 40 meq G-tube BID 7 Days Qty: 420 0RF L.acidoph,saliva-B.bif-S.therm 175 mg Capsule 1 cap G-tube TID Qty: 0 0RF Rx Instructions: for 2 weeks Jevity 1.5 Ynes 0.06 gram-1.5 kcal/mL Liquid 240 ml G-tube 5X/DAY Qty: 0 0RF sennosides-docusate sodium [Stimulant Laxative Plus] 8.6-50 mg Tablet 2 tab G-tube BID Qty: 0 0RF amoxicillin-pot clavulanate 875-125 mg tablet 1 tab PO BID 3 Days Qty: 6 0RF Continued levothyroxine 50 mcg tablet 50 mcg PO QDAY omeprazole 40 mg capsule,delayed release(DR/EC) 40 mg PO QDAY tamsulosin 0.4 mg capsule 0.4 mg PO BID carbidopa-levodopa 25-100 mg tablet extended release 1 tab PO .qid fludrocortisone 0.1 mg tablet 0.1 mg PO QDAY ondansetron 8 mg tablet,disintegrating 8 mg PO Q8H PRN (Reason: nausea and vomiting) Qty: 30 1RF lidocaine-prilocaine 2.5-2.5 % cream 1 applic topical ONCE PRN (Reason: port access) 30 Days Qty: 30 2RF sodium chloride 1,000 mg tablet,soluble 1,000 mg PO QD-QID PRN (Reason: electrolyte replenishment) Qty: 30 2RF MAGIC MOUTH WASH (BMX) 180 mL suspension 15 ml PO .qid PRN (Reason: pain) Qty: 180 5RF Rx Instructions: diphenhydramine 12.5 mg/5 mL oral liquid 60 mL; aluminum-mag hydroxide-simethicone 400 mg-400 mg-40 mg/5 mL oral susp 60 mL; Lidocaine Viscous 2 % mucosal solution 60 mL; Per 180 mL guaifenesin [Guaifed (guaifenesin)] 100 mg/5 mL liquid 200 mg PO Q4H PRN (Reason: congestion) Qty: 500 3RF Rx Instructions: take 10 mL q4 hrs prn congestion prucalopride [Motegrity] 2 mg tablet 2 mg PO DAILY Discontinued sennosides [Shari-rocco] 8.6 mg tablet 8.6 mg PO PRN Referrals / Follow Up: Eloina Chi MD [Primary Care Provider, Family Practice] Simone Collins MD [Med Staff - Active Staff, Oncology] - Within 2 Weeks Disposition Disposition (needs filled in before D/C Order can be placed): Home Health Service 08/04/25 1043<Electronically signed by Dev Reardon MD>Dev Reardon MD CC: MELISSA Anderson; Dr. Vicente Schofield MD; Dr. Marco Carrero MD; Dr. Tez Obando MD; Dr. Eloina Chi MD; Dr. Jamarcus Tao MD; Dr. Jamarcus Vaz MD; Dr. Vaughn Garduno DO; Dr. Sundar Reid MD; Dr. Marya Moss DO; Dr.Erine Matt MD; Dr. James Bangura MD; Dr. Pato Cerda MD; Dr. Alexey MD; Dr. Brady Pemberton MD; Dr. Jonathan Curtis MD; Dr. Smooth Fall MD;Dr. Simone Collins MD; Dr. Christelle Camejo MD; Dr. Brian Mendoza MD; Dr. Lamont Armenta MD; Dr. Pinky Santana MD; Dr. Kathrine Cox MD; Dr. Antonette Burroughs MD; Dr. Elinor Cohn MD; Dr. Maryjo Nichole MD; Dr. Heather Velarde MD; Dr. Johnathan Witt MD; Dr. Kusum Avina DO; Dr. Iain Obrien MD; Dr. Iain Bone MD; Dr. Jc South DO; Dr. Rain Gallagher MD; Dr. Brady Aldana DO; Dr. Efrem Tanner MD; Dr. Oemr Woods MD; Dr. Alan Childress MD; Dr. Alan Galaviz MD; Dr. Chester Sharpe MD; Dr. Hiral Carlin; Dr. Angel Mejia MD; Dr. Carlos June MD; Dr. Makeda Joyner MD;Dr. Zaira Henriquez MD; Dr. Marisol Mackey MD; Dr. En Guerin DO; Dr. Marilee Orourke MD; Dr. Beltran Cheatham DO; Dr. Ihsan Oliveira MD; Dr. Russell Leach DO; Dr. Nelida Ortega MD; Dr. Spesner Gavin MD; Dr. Robert Kessler MD; Dr. Debbie Frausto MD ~ [facility] Work Phone: 1(846) 974-560910-22-2025 Discharge summary Author Dev Reardon [facility] Note Date/Time August 04, 2025 1 2:56pm [facility] Medical Records Department [address] [place] [id number] Discharge Summary 08/04/25 1043 MR#: [id number] Acct: [id number] Name: GLENN PARADA DEV Rep #:[id number] : 1945 80 From: Dev Segovia PCP: Dr. Eloina Chi MD Status:ADM IN Location: [place] [address] Providers Date of Admission: 07/30/25 Date of Discharge: 08/04/25 Primary Care Physician: Eloina Chi MD Consultations 07/30/25 20:30 Consult: Mental Hygienist / Pulmonary Medicine Routine Consulting Provider: Intensivists/Pulmonary Med Reason for Consult: sepsis due to febrile neutropenia EMERGENT Consult: No MD Notified: Yes Date Notified: 07/30/25 Time Notified: 21:21 Method of Notification: Text 08/01/25 08:46 Consult: Infectious Disease Routine Consulting Provider: Alan Galaviz Reason for Consult: NEURTOPENIC Fever, oropharygeal ca on CT/RT EMERGENT Consult: No Notified: Yes Date Notified: 08/01/25 Time Notified: 08:46 Method of Notification: Text 08/02/25 08:24 Consult: Oncology/Hematology Routine Consulting Provider: [facility] Reason for Consult: neutropenic fever EMERGENT Consult: No MD Notified: Yes Date Notified: 08/02/25 Time Notified: 08:25 Method of Notification: Verbal Reason For Visit: FEBRILE NEUTROPENIA Diagnosis Discharge Diagnosis (1) Encephalopathy acute: Status: Acute Code(s): G93.40 - Encephalopathy, unspecified (2) Neutropenia with fever: Status: Acute Code(s): D70.9 - Neutropenia, unspecified; R50.81 - Fever presenting with conditions classified elsewhere Plan 80-year-old gentleman with history 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 #Acute febrile neutropenia in the setting of metastatic oropharyngeal cancer * Patient is admitted to ICU due to concerns for sepsis and rapid deterioration in light of his immunocompromised state. Admitted with a complaint of fever. He had radiation on day of admission and chemotherapy 4 days ago. * Denies any urinary symptoms or any respiratory symptoms or abdominal symptoms. Patient is tachycardic with heart rate of 131. Lactic acid is less than 1. * Patient was hydrated hydrate aggressively with IV fluids. Continue IV vancomycin and Zosyn. * Neutropenic precautions. * consult critical care. * 07/31: Low-grade fever today. Tmax 102.0 on 07/30 about 8 PM. Leukopenia, thrombocytopenia and anemia/pancytopenia. ANC 0.9 K suggestive of moderate neutropenia, ALC 0.27/lymphopenia, basophils 2.2%. Does not meet criteria for sepsis. Urine culture exhibits no growth. Respiratory panel negative. 08/01: No fever, Tmax 100.1 F. Still leukopenia, ANC 1.1 K, improved from 0.5 K. Started on Granix. Discussed with pharmacy and Peridex/chlorhexidine oral rinse ordered. Mouth hygiene. Continue antibiotic. ID consult tomorrow AM. 08/02: Tmax 100.4 Fahrenheit on 08/01 evening. ANC 1.2 K, continue Granix today. Continue Peridex and oral hygiene for mouth soreness and mucositis. Oncologist consult requested as per patient's request. He was supposed to startchemotherapy today but it is contraindicated due to neutropenic fever and pancytopenia for now. Cultures are negative so far. ID consulted to narrow down the antibiotic 08/03: No fever. Seen by ID and recommended 3 days of Augmentin 875 mg twice daily at time of discharge. Neutropenia has resolved. Granix discontinued. Patient was seen by oncologist Dr. Collins and recommended to follow-up as an outpatient after discharge to continue chemotherapy as outpatient 08/04: No fever. Patient discharged on 3 days of Augmentin 875 mg twice daily. #PE * D dimer ordered due to tachcyardia. * D dimer was markedly elevated at ~ 7, so stat CTA chest done which showed pulmonary embolism of the right lower lobe subsegmenal branches. * patient started on therapeutic lovenox. 07/31: Continue Lovenox. Shows mild decrease in hemoglobin and platelet count. Platelet count 0.183 on 07/26. 08/01: Platelet count 147K, improved from yesterday. H&H 8.8/25.6%. Bands 8%, metamyelocytes 4%. 08/04: Patient has leukocytosis probably side effect of Granix. Granix was discontinued yesterday 08/04: Patient given a prescription for starter pack of Eliquis 10 mg p.o. twicedaily for 1 week and then 5 mg twice daily to continue. I did discuss the anticoagulant with Dr. Collins. Follow-up in oncology office Pancytopenia since admission due to chemotherapy and radiotherapy 06/02: All 3 cell lines are low. Platelet count 129K. Patient also on Lovenox as mentioned above. 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 General mild acute malnutrition due to chemotherapeutic and radiation toxic effect. patient n.p.o. and has PEG tube #GERD: PPI #Hypothyroidism: On Synthroid #BPH: On Flomax DVT prophylaxis: not indicated as patient started on therapeutic lovenox for newly diagnosed PE Electrolyte abnormality: Hypocalcemia: Calcium 6.9, albumin 3.4. Corrected calcium is 7.4 therefore IV calcium gluconate ordered. 08/01: Severe hypokalemia, K2.6. 40 mEq oral and 40 mEq IV KCl replaced. Repeat serum magnesium and phosphorus and BMP after 1 hour of completion of electrolyte replacement. 08/03: Severe hypokalemia: Hypophosphatemia. IV potassium phosphate ordered. Oral potassium replacement. 08/04: Mild hypokalemia, prescription given for potassium supplement. Hypomagnesemia and hypophosphatemia corrected. CODE STATUS:full code * Patient and counseled extensively about different types of CODE STATUS including full code, DNR CCA and DNR CCA. * Patients elects for him to be full code. Discharge medication reconciliation done. Discharge follow-up instructions completed. Discharge process discussed with the patient and all questions were answered to patient's satisfaction. Follow with PCP in 1 to 2 weeks Total time spent, exact 35 minutes on discharge meds reconciliation, examination, coordination of care with nurses and ancillary staff, review of imaging and blood test and discussion with the patient on follow-up instructions. Microbiology Past 72 Hours 08/02/25 09:59 Nasal Secretion MRSA (PCR) - Final 07/30/25 18:51 Urine, Clean Catch Urine Culture - Final Culture exhibits no growth. 07/30/25 18:25 Blood Culture (Wb) - Venous Blood Culture - Preliminary No growth in 48 hours. 07/30/25 16:23 Blood Culture (Wb) - Line Draw Blood Culture - Preliminary No growth in 48 hours. Laboratory Results 08/02/25 21:06: Vancomycin Trough 14.3 08/03/25 11:26: WBC 6.6, RBC 3.37 L, Hgb 9.9 L, Hct 29.5 L, MCV 87.5, MCH 29.4, MCHC 33.6, RDW Std Deviation 43.0, RDW Coeff of Macho 13.9, Plt Count 152, MPV 10.6, Neut % (Auto) Not Reportable, Absolute Neuts (auto) 4.6, Absolute Lymphs (auto) 1.19, Total Counted 100, Neutrophils % (Manual) 50, Band Neutrophils % 19 H, Lymphocytes % (Manual) 18 L, Monocytes % (Manual) 11 H, Metamyelocytes % 2 H, Platelet Estimate ADEQUATE, RBC Morphology NORM C+C, Sodium 137, Potassium 2.7 L*, Chloride 101, Carbon Dioxide 24.4, Anion Gap 12, BUN 9, Creatinine 1.03, Estim Creat Clear Calc 54.42, Est GFR (MDRD) Non-Af 73, BUN/Creatinine Ratio 9.1 L, Glucose 101 H, Calcium 7.7, Total Bilirubin 0.53, AST 28, ALT 15, Alkaline Phosphatase 60, Total Protein 5.4 L, Albumin 3.0 L, Globulin 2.3, Albumin/Globulin Ratio 1.3 Clinical Impression(s) from Imaging Studies Chest X-Ray 07/30/25 18:25 IMPRESSION: No Acute Findings. Reading Location: [facility] Chest CTA 07/30/25 22:16 IMPRESSION: Right lower lobe segmental branches pulmonary emboli. No evidence of large central or massive pulmonary embolus. No evidence of cardiac strain. Minimal bilateral pleural effusions. Passive atelectatic airspace disease in the lower lobes. Mild interstitial pulmonary congestion. Right Port-A-Cath is in good position. Mild cardiomegaly. Small sliding hiatal hernia. Left renal simple cyst measuring 3.5 cm. Chronic deformity of the posterior arch of the left 11th rib. I discussed the findings with NIGEL Natarajan in the ICU at 12:33 a.m. EST. Reading [facility] Medications at Discharge Home Medications levothyroxine 50 mcg tablet 50 mcg PO QDAY 03/05/24 omeprazole 40 mg capsule,delayed release 40 mg PO QDAY 03/05/24 tamsulosin 0.4 mg capsule 0.4 mg PO BID 03/05/24 prucalopride 2 mg tablet (Motegrity) 2 mg PO DAILY 05/09/24 carbidopa ER 25 mg-levodopa 100 mg tablet,extended release 1 tab PO .qid 06/10/25 fludrocortisone 0.1 mg tablet 0.1 mg PO QDAY 06/17/25 lidocaine-prilocaine 2.5 %-2.5 % topical cream 1 applic topical ONCE PRN port access 30 days #30 grams 06/28/25 ondansetron 8 mg disintegrating tablet 8 mg PO Q8H PRN nausea and vomiting #30 tabs 06/28/25 MAGIC MOUTH WASH (BMX) 180 mL suspension 15 ml PO .qid PRN pain #180 mL 07/07/25 sodium chloride 1,000 mg soluble tablet 1,000 mg PO QD-QID PRN electrolyte replenishment #30 tabs 07/26/25 guaifenesin 100 mg/5 mL oral liquid (Guaifed (guaifenesin)) 200 mg (10 mL) PO Q4H PRN congestion #500 mL 07/28/25 L.acidophil,salivari-Bifido bifidum-Strep thermoph 175 mg capsule 1 cap G-tube TID #0 caps 08/04/25 amoxicillin 875 mg-potassium clavulanate 125 mg tablet 1 tab PO BID 3 days #6 tabs 08/04/25 apixaban 5 mg (74 tabs) tablets in a dose pack (Eliquis DVT-PE Treat 30D Start) 5 mg PO BID #74 tabs 08/04/25 chlorhexidine gluconate 0.12 % mouthwash 15 ml PO TID 12 weeks #1,893 mL 08/04/25 lactose-reduced food with fiber 0.06 gram-1.5 kcal/mL oral liquid (Jevity 1.5 Ynes) 240 ml G-tube 5X/DAY #0 mL 08/04/25 potassium chloride 20 mEq/15 mL oral liquid 40 meq (30 mL) G-tube BID 1 week #420 mL 08/04/25 sennosides 8.6 mg-docusate sodium 50 mg tablet (Stimulant Laxative Plus) 2 tab G-tube BID #0 tabs 08/04/25 Physical Exam Narrative Seen and examined No fever last 18 hours. Last temperature 100.4 ?F on 08/01, about 72 hours ago Patient has swelling/thick mucus secretions over oropharyngeal and throat region looks better with Peridex. On tube feed through PEG tube. Had BM. No fever. Severe hold for serum potassium more than 5.0 Physical exam General: Alert, Oriented x3, Cooperative HEENT: Atraumatic, PERRLA, EOMI, Normocephalic. Oral: Yellowish patch over left and right lateral margin of anterior tongue. Thick mucoid whitish secretions are less. Oral gingivitis/soreness Neck: Supple, No JVD, Negative Carotid Bruits Chest wall/Lungs: Air entry diminished in bilateral lung bases. Mild crepitations on bases Cardiovascular: Regular rate and rhythm, Normal S1,S2, No M/G/R Abdomen: PEG tube bowel Sounds Present, Soft, Non Tender, Non-Distended : No dysuria. No renal angle tenderness. No suprapubic tenderness. Extremities: Mild leg edema, Capillary Refill Less than 3 Seconds Skin: No rashes, No breakdown Musculoskeletal: Decreased muscle strength of knees and hip joints. No Tenderness to Palpation of Joints or Extremities Neurological: DTR 2+/4. No acute focal neurological deficit. Psych/Mental Status: Flat affect. Medical Records Data Medical Nutrition Assessment Dietitian: Malnutrition Criteria Met Start: 07/31/25 11:30 Freq: Status: Active Protocol: Document 07/31/25 11:30 [facility] (Rec: 07/31/25 11:30 [facility] [id number]) Nutrition Malnutrition Evidence of Yes Malnutrition Exists Malnutrition (severe Chronic ): Evidenced By Suboptimal Energy Intake (Severe),Weight Loss (Severe) Intake Problem Inadequate Oral Intake Etiology related to oropharyngeal cancer Signs/Symptoms as evidenced by need for PEG/ EN for nutrition Status Active Problem Clinical Problem Acute Disease or Injury Related Malnutrition Etiology related to inadequate oral energy intake d/t oropharyngeal cancer Signs/Symptoms as evidenced by po intake meeting < 75% of est nutritional needs and 3% wt loss in past 5 days. Has started using PEG this week, but not up to goal yet. Status Active Problem Recommendation Dietitian Rec Jevity 1.5 bolus feeds 5x/day during waking hours - Recommendations/ goal of 240 ml per feed w/ 90 ml water flush before Changes and after feedings to provide ~ 1800 ynes / 76 gm pro/ 1812 ml free water per day. Would start day 1 at 50% giving 120 ml formula bolus feeds, day 2 increase to 75 % giving 180 ml formula bolus feeds and increase to goal rate 240 ml formula day 3 as pt tolerated. Continue to follow and monitor for changes in pt nutritional status and make additional rec as indicated . Weight / BMI Weight Weight: 169 lb 12.095 oz Body Mass Index (BMI) 25.8 ABG / Lab / Microbiology Data 08/04/25 05:12 08/04/25 05:12 Laboratory: Laboratory Results - last 24 hr 08/03/25 11:26: WBC 6.6, RBC 3.37 L, Hgb 9.9 L, Hct 29.5 L, MCV 87.5, MCH 29.4, MCHC 33.6, RDW Std Deviation 43.0, RDW Coeff of Macho 13.9, Plt Count 152, MPV 10.6, Neut % (Auto) Not Reportable, Absolute Neuts (auto) 4.6, Absolute Lymphs (auto) 1.19, Total Counted 100, Neutrophils % (Manual) 50, Band Neutrophils % 19 H, Lymphocytes % (Manual) 18 L, Monocytes % (Manual) 11 H, Metamyelocytes % 2 H, Platelet Estimate ADEQUATE, RBC Morphology NORM C+C, Sodium 137, Potassium 2.7 L*, Chloride 101, Carbon Dioxide 24.4, Anion Gap 12, BUN 9, Creatinine 1.03, Estim Creat Clear Calc 54.42, Est GFR (MDRD) Non-Af 73, BUN/Creatinine Ratio 9.1 L, Glucose 101 H, Calcium 7.7, Total Bilirubin 0.53, AST 28, ALT 15, Alkaline Phosphatase 60, Total Protein 5.4 L, Albumin 3.0 L, Globulin 2.3, Albumin/Globulin Ratio 1.3 08/04/25 05:12: WBC 15.5 H, RBC 3.31 L, Hgb 9.9 L, Hct 28.9 L, MCV 87.3, MCH 29.9, MCHC 34.3, RDW Std Deviation 43.8, RDW Coeff of Macho 14.1, Plt Count 159, MPV 10.2, Neut % (Auto) Not Reportable, Absolute Neuts (auto) 12.0 H, Absolute Lymphs (auto) 1.71, Total Counted 100, Neutrophils % (Manual) 59, Band Neutrophils % 18 H, Lymphocytes % (Manual) 11 L, Monocytes % (Manual) 10, Basophils % (Manual) 1, Myelocytes % 1 H, Nucleated RBCs/100 WBC 1, Diff Path Review May foll, Toxic Granulation 2+, Dohle Bodies 2+, Platelet Estimate ADEQUATE, RBC Morphology NORM C+C, Sodium 141, Potassium 3.0 L, Chloride 103, Carbon Dioxide 22.8, Anion Gap 15, BUN 7, Creatinine 1.03, Estim Creat Clear Calc 54.42, Est GFR (MDRD) Non-Af 73, BUN/Creatinine Ratio 6.9 L, Glucose 107 H, Calcium 7.7, Phosphorus 3.9 Microbiology: Microbiology 08/02/25 09:59 Nasal Secretion MRSA (PCR) - Final 07/30/25 18:51 Urine, Clean Catch Urine Culture - Final Culture exhibits no growth. 07/30/25 18:25 Blood Culture (Wb) - Venous Blood Culture - Preliminary No growth in 48 hours. 07/30/25 16:23 Blood Culture (Wb) - Line Draw Blood Culture - Preliminary No growth in 48 hours. 07/30/25 21:57 Mucosa - Nasopharyngeal Respiratory Panel (PCR) - Final D/C Instructions DC O2, CPAP, BIPAP Needs Home O2 Discharge instructions: No Meaningful Use Info Meaningful Use Meaningful Use Diagnoses (Choose all that apply): None applicable Discharge Plan Admission Admit Date/Time: 07/30/25 19:55 Attending Provider: Dev Reardon Primary Care Provider: Eloina Chi Consulting Providers: Rain Gallagher; Alan Galaviz; Marco Carrero; Vicente Schofield; Tez Obando; Vaughn Garduno; Jamarcus Vaz; Marya Moss; Sundar Reid; Latasha Gutierrez; James Bangura; Debbie Frausto; Pato Cerda; Smooth Fall; Christelle Camejo; Brian Mendoza; Brady Pemberton; Lamont Armenta; Alva Langford; Pinky Santana; Kathrine Cox; Antonette Burroughs; Jc South; Johnathan Witt; Iain Obrien; Heather Velarde; Elinor Cohn; Kusum Avina; Iain Bone; Brady Aldana; Omer Woods; Efrem Tanner; Hiral Carlin; Shaylee,Carlos; Maribeth Cheathamkhdeep; Marilee Orourke; Marisol Mackey; Zaira Henriquez; Makeda Joyner; Russell Leach; Roxanne,Ihsan; Spenser Gavin; Nelida Ortega; Robert Kessler; Jamarcus Tao; Simone Collins; Jonathan Curtis; Maryjo Nichole; Alan Childress; Angel Mejia; Chester Sharpe; En Guerin; Jayashree Anderson [employer] Discharge Orders/Prescriptions Prescriptions: New chlorhexidine gluconate 0.12 % Mouthwash 15 ml PO TID 84 Days Qty: 189 0RF potassium chloride 20 mEq/15 mL Liquid 40 meq G-tube BID 7 Days Qty: 420 0RF L.acidoph,saliva-B.bif-S.therm 175 mg Capsule 1 cap G-tube TID Qty: 0 0RF Rx Instructions: for 2 weeks Jevity 1.5 Ynes 0.06 gram-1.5 kcal/mL Liquid 240 ml G-tube 5X/DAY Qty: 0 0RF sennosides-docusate sodium [Stimulant Laxative Plus] 8.6-50 mg Tablet 2 tab G-tube BID Qty: 0 0RF amoxicillin-pot clavulanate 875-125 mg tablet 1 tab PO BID 3 Days Qty: 6 0RF Eliquis DVT-PE Treat 30D Start 5 mg (74 tabs) tablets,dose pack 5 mg PO BID Qty: 74 0RF Rx Instructions: 10 mg (2 tabs) twice daily for 7 days till 08/11/25 and then 1 tab twice daily to continue Continued levothyroxine 50 mcg tablet 50 mcg PO QDAY omeprazole 40 mg capsule,delayed release(DR/EC) 40 mg PO QDAY tamsulosin 0.4 mg capsule 0.4 mg PO BID carbidopa-levodopa 25-100 mg tablet extended release 1 tab PO .qid fludrocortisone 0.1 mg tablet 0.1 mg PO QDAY ondansetron 8 mg tablet,disintegrating 8 mg PO Q8H PRN (Reason: nausea and vomiting) Qty: 30 1RF lidocaine-prilocaine 2.5-2.5 % cream 1 applic topical ONCE PRN (Reason: port access) 30 Days Qty: 30 2RF sodium chloride 1,000 mg tablet,soluble 1,000 mg PO QD-QID PRN (Reason: electrolyte replenishment) Qty: 30 2RF MAGIC MOUTH WASH (BMX) 180 mL suspension 15 ml PO .qid PRN (Reason: pain) Qty: 180 5RF Rx Instructions: diphenhydramine 12.5 mg/5 mL oral liquid 60 mL; aluminum-mag hydroxide- simethicone 400 mg-400 mg-40 mg/5 mL oral susp 60 mL; Lidocaine Viscous 2 % mucosal solution 60 mL; Per 180 mL guaifenesin [Guaifed (guaifenesin)] 100 mg/5 mL liquid 200 mg PO Q4H PRN (Reason: congestion) Qty: 500 3RF Rx Instructions: take 10 mL q4 hrs prn congestion prucalopride [Motegrity] 2 mg tablet 2 mg PO DAILY Discontinued sennosides [Shari-rocco] 8.6 mg tablet 8.6 mg PO PRN Referrals / Follow Up: Eloina Chi MD [Primary Care Provider, Family Practice] - 08/16/25 1:40 pm Simone Collins MD [Med Staff - Active Staff, Oncology] - 08/09/25 7:30 am Disposition Disposition (needs filled in before D/C Order can be placed): Home Health Service Charges/Coding Visit Charges Inpatient E&M: 84394 Disch Hosp >30min 08/04/25 1156 <Electronically signed by Dev Reardon MD> Cosigner Signature (if applicable): CC: Dr. Eloina Chi MD; Dr. Simone Collins MD; Dr. Dev Reardon MD; Dr. Carlitos MD~ Signed [facility] Work Phone: 1(663) 250-605010-22-2025 [facility]10-21-2025 Progress note Author Dev Reardon [facility] Note Date/Time August 03, 2025 6 :22pm [facility] Medical Records Department [address] [place] [address] Progress Note - Hospitalist 08/03/25 1719 MR#: [id number] Acct: [id number] Name: GLENN PARADA DEV Rep #:[id number] : 1945 80 From: Dev Segovia PCP: Dr. Eloina Chi MD Status:ADM IN Location: [place] [address] Reason for Visit Chief Complaint: fever Objective Data Objective Data Vital Signs: Vital Signs Temp Pulse Resp BP Pulse Ox O2 Del Method O2 Flow Rate 99.3 F H 99 20 H 118/65 98 Room Air 2 08/03/25 15:01 08/03/25 15:01 08/03/25 15:01 08/03/25 15:01 08/03/25 15:01 08/03/25 15:01 07/31/25 07:00 Oxygen Flow Rate (L/min) 2 Oxygen Delivery Method Room Air Weight: 162 lb 7.691 oz Body Mass Index (BMI) 24.7 Intake & Output: Intake and Output for Last 24 Hours 08/01/25 08/02/25 08/03/25 23:59 23:59 23:59 Intake Total 2614 / 2614 2394.25 / 2394.25 1900.00 / 1900.00 Output Total 1525 / 1525 1650 / 1650 Balance 1089 / 1089 744.25 / 744.25 1900.00 / 1900.00 Medical Nutrition Assessment Dietitian: Malnutrition Criteria Met Start: 07/31/25 11:30 Freq: Status: Active Protocol: Document 07/31/25 11:30 SLA (Rec: 07/31/25 11:30 SLA [id number]) Nutrition Malnutrition Evidence of Yes Malnutrition Exists Malnutrition (severe Chronic ): Evidenced By Suboptimal Energy Intake (Severe),Weight Loss (Severe) Intake Problem Inadequate Oral Intake Etiology related to oropharyngeal cancer Signs/Symptoms as evidenced by need for PEG/ EN for nutrition Status Active Problem Clinical Problem Acute Disease or Injury Related Malnutrition Etiology related to inadequate oral energy intake d/t oropharyngeal cancer Signs/Symptoms as evidenced by po intake meeting < 75% of est nutritional needs and 3% wt loss in past 5 days. Has started using PEG this week, but not up to goal yet. Status Active Problem Recommendation Dietitian Rec Jevity 1.5 bolus feeds 5x/day during waking hours - Recommendations/ goal of 240 ml per feed w/ 90 ml water flush before Changes and after feedings to provide ~ 1800 ynes / 76 gm pro/ 1812 ml free water per day. Would start day 1 at 50% giving 120 ml formula bolus feeds, day 2 increase to 75 % giving 180 ml formula bolus feeds and increase to goal rate 240 ml formula day 3 as pt tolerated. Continue to follow and monitor for changes in pt nutritional status and make additional rec as indicated . Lab / Micro Data 08/03/25 11:26 08/03/25 11:26 Labs: Laboratory Results - last 24 hr 08/02/25 21:06: Vancomycin Trough 14.3 08/03/25 11:26: WBC 6.6, RBC 3.37 L, Hgb 9.9 L, Hct 29.5 L, MCV 87.5, MCH 29.4, MCHC 33.6, RDW Std Deviation 43.0, RDW Coeff of Macho 13.9, Plt Count 152, MPV 10.6, Neut % (Auto) Not Reportable, Absolute Neuts (auto) 4.6, Absolute Lymphs (auto) 1.19, Total Counted 100, Neutrophils % (Manual) 50, Band Neutrophils % 19H, Lymphocytes % (Manual) 18 L, Monocytes % (Manual) 11 H, Metamyelocytes % 2 H,Platelet Estimate ADEQUATE, RBC Morphology NORM C+C, Sodium 137, Potassium 2.7 L*, Chloride 101, Carbon Dioxide 24.4, Anion Gap 12, BUN 9, Creatinine 1.03, Estim Creat Clear Calc 54.42, Est GFR (MDRD) Non-Af 73, BUN/Creatinine Ratio 9.1L, Glucose 101 H, Calcium 7.7, Total Bilirubin 0.53, AST 28, ALT 15, Alkaline Phosphatase 60, Total Protein 5.4 L, Albumin 3.0 L, Globulin 2.3, Albumin/Globulin Ratio 1.3 Micro: Microbiology 08/02/25 09:59 Nasal Secretion MRSA (PCR) - Final 07/30/25 18:51 Urine, Clean Catch Urine Culture - Final Culture exhibits no growth. 07/30/25 18:25 Blood Culture (Wb) - Venous Blood Culture - Preliminary No growth in 48 hours. 07/30/25 16:23 Blood Culture (Wb) - Line Draw Blood Culture - Preliminary No growth in 48 hours. 07/30/25 21:57 Mucosa - Nasopharyngeal Respiratory Panel (PCR) - Final Physical Exam Narrative Seen and examined Patient has swelling/thick mucus secretions over oropharyngeal and throat regionlooks better with Peridex. On tube feed through PEG tube. Had BM. No fever. Severe hold for serum potassium more than 5.0 Physical exam General: Alert, Oriented x3, Cooperative HEENT: Atraumatic, PERRLA, EOMI, Normocephalic. Oral: Yellowish patch over left and right lateral margin of anterior tongue. Thick mucoid whitish secretions are less. Oral gingivitis/soreness Neck: Supple, No JVD, Negative Carotid Bruits Chest wall/Lungs: Air entry diminished in bilateral lung bases. Mild crepitations on bases Cardiovascular: Regular rate and rhythm, Normal S1,S2, No M/G/R Abdomen: PEG tube bowel Sounds Present, Soft, Non Tender, Non-Distended : No dysuria. No renal angle tenderness. No suprapubic tenderness. Extremities: Mild leg edema, Capillary Refill Less than 3 Seconds Skin: No rashes, No breakdown Musculoskeletal: Decreased muscle strength of knees and hip joints. No Tenderness to Palpation of Joints or Extremities Neurological: DTR 2+/4. No acute focal neurological deficit. Psych/Mental Status: Flat affect. 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 #Acute febrile neutropenia in the setting of metastatic oropharyngeal cancer * Patient is admitted to ICU due to concerns for sepsis and rapid deterioration in light of his immunocompromised state. Admitted with a complaint of fever. He had radiation on day of admission and chemotherapy 4 days ago. * Denies any urinary symptoms or any respiratory symptoms or abdominal symptoms. Patient is tachycardic with heart rate of 131. Lactic acid is less than 1. * Patient was hydrated hydrate aggressively with IV fluids. Continue IV vancomycin and Zosyn. * Neutropenic precautions. * consult critical care. * 07/31: Low-grade fever today. Tmax 102.0 on 07/30 about 8 PM. Leukopenia, thrombocytopenia and anemia/pancytopenia. ANC 0.9 K suggestive of moderate neutropenia, ALC 0.27/lymphopenia, basophils 2.2%. Does not meet criteria for sepsis. Urine culture exhibits no growth. Respiratory panel negative. 08/01: No fever, Tmax 100.1 F. Still leukopenia, ANC 1.1 K, improved from 0.5 K. Started on Granix. Discussed with pharmacy and Peridex/chlorhexidine oral rinse ordered. Mouth hygiene. Continue antibiotic. ID consult tomorrow AM. 08/02: Tmax 100.4 Fahrenheit on 08/01 evening. ANC 1.2 K, continue Granix today. Continue Peridex and oral hygiene for mouth soreness and mucositis. Oncologist consult requested as per patient's request. He was supposed to startchemotherapy today but it is contraindicated due to neutropenic fever and pancytopenia for now. Cultures are negative so far. ID consulted to narrow down the antibiotic 08/03: No fever. Seen by ID and recommended 3 days of Augmentin 875 mg twice daily at time of discharge. Neutropenia has resolved. Granix discontinued. Patient was seen by oncologist Dr. Collins and recommended to follow-up as an outpatient after discharge to continue chemotherapy as outpatient #PE * D dimer ordered due to tachcyardia. * D dimer was markedly elevated at ~ 7, so stat CTA chest done which showed pulmonary embolism of the right lower lobe subsegmenal branches. * patient started on therapeutic lovenox. 05/31: Continue Lovenox. Shows mild decrease in hemoglobin and platelet count. Platelet count 0.183 on 07/26. 06/01: Platelet count 147K, improved from yesterday. H&H 8.8/25.6%. Bands 8%, metamyelocytes 4%. Pancytopenia since admission due to chemotherapy and radiotherapy 06/02: All 3 cell lines are low. Platelet count 129K. Patient also on Lovenox as mentioned above. #parkinson's disease with Dementia: On levodopa carbidopa #GERD: PPI #Hypothyroidism: On Synthroid #BPH: On Flomax DVT prophylaxis: not indicated as patient started on therapeutic lovenox for newly diagnosed PE Electrolyte abnormality: Hypocalcemia: Calcium 6.9, albumin 3.4. Corrected calcium is 7.4 therefore IV calcium gluconate ordered. 08/01: Severe hypokalemia, K2.6. 40 mEq oral and 40 mEq IV KCl replaced. Repeat serum magnesium and phosphorus and BMP after 1 hour of completion of electrolyte replacement. 08/03: Severe hypokalemia: Hypophosphatemia. IV potassium phosphate ordered. Oral potassium replacement. CODE STATUS:full code * Patient and counseled extensively about different types of CODE STATUS including full code, DNR CCA and DNR CCA. * Patients elects for him to be full code. Microbiology Past 72 Hours 08/02/25 09:59 Nasal Secretion MRSA (PCR) - Final 07/30/25 18:51 Urine, Clean Catch Urine Culture - Final Culture exhibits no growth. 07/30/25 18:25 Blood Culture (Wb) - Venous Blood Culture - Preliminary No growth in 48 hours. 07/30/25 16:23 Blood Culture (Wb) - Line Draw Blood Culture - Preliminary No growth in 48 hours. Laboratory Results 08/02/25 21:06: Vancomycin Trough 14.3 08/03/25 11:26: WBC 6.6, RBC 3.37 L, Hgb 9.9 L, Hct 29.5 L, MCV 87.5, MCH 29.4, MCHC 33.6, RDW Std Deviation 43.0, RDW Coeff of Macho 13.9, Plt Count 152, MPV 10.6, Neut % (Auto) Not Reportable, Absolute Neuts (auto) 4.6, Absolute Lymphs (auto) 1.19, Total Counted 100, Neutrophils % (Manual) 50, Band Neutrophils % 19H, Lymphocytes % (Manual) 18 L, Monocytes % (Manual) 11 H, Metamyelocytes % 2 H,Platelet Estimate ADEQUATE, RBC Morphology NORM C+C, Sodium 137, Potassium 2.7 L*, Chloride 101, Carbon Dioxide 24.4, Anion Gap 12, BUN 9, Creatinine 1.03, Estim Creat Clear Calc 54.42, Est GFR (MDRD) Non-Af 73, BUN/Creatinine Ratio 9.1L, Glucose 101 H, Calcium 7.7, Total Bilirubin 0.53, AST 28, ALT 15, Alkaline Phosphatase 60, Total Protein 5.4 L, Albumin 3.0 L, Globulin 2.3, Albumin/Globulin Ratio 1.3 Clinical Impression(s) from Imaging Studies Chest X-Ray 07/30/25 18:25 IMPRESSION: No Acute Findings. Reading Location: [facility] Chest CTA 07/30/25 22:16 IMPRESSION: Right lower lobe segmental branches pulmonary emboli. No evidence of large central or massive pulmonary embolus. No evidence of cardiac strain. Minimal bilateral pleural effusions. Passive atelectatic airspace disease in the lower lobes. Mild interstitial pulmonary congestion. Right Port-A-Cath is in good position. Mild cardiomegaly. Small sliding hiatal hernia. Left renal simple cyst measuring 3.5 cm. Chronic deformity of the posterior arch of the left 11th rib. I discussed the findings with NIGEL Natarajan in the ICU at 12:33 a.m. EST. Reading Location: [place] [address] Charges/Coding Visit Charges Inpatient E&M: 63803 Subs Hosp L2 08/03/25 1722 <Electronically signed by Dev Reardon MD> Cosigner Signature (if applicable): CC: ~ Signed [facility] Work Phone: 1(173) 210-497310-21-2025 Procedure [facility] 08-03-2025 Procedure [facility]10-21-2025 Consult note Author Ranulfo Kraus [facility] Note Date/Time August 03, 2025 1 2:30am [facility] Medical Records Department [address] [place] [address] Pharmacokinetic/Renal -Consult 08/02/259 MR#: [id number] Acct: [id number] Name: GLENN PARADA DEV Rep #:[id number] : 1945 80 From: Ranulfo Lubin od PCP: Dr. Eloina Chi MD Status:ADM IN Location: [facility] ANY040- 1 Consult Antibiotic Management Pharmacy has been consulted to manage selected antibiotic: Vancomycin Type of Intervention Type of Consult: Follow-up Labs Labs: Sodium 136 mmol/L (133-145) 08/02/25 03:20 Potassium 2.9 mmol/L (3.3-5.1) L 08/02/25 03:20 Chloride 103 mmol/L (98-108) 08/02/25 03:20 Carbon Dioxide 24.6 mmol/L (21.0-32.0) 08/02/25 03:20 Anion Gap 8 (5-15) 08/02/25 03:20 BUN 13 mg/dL (4-19) 08/02/25 03:20 Creatinine 0.80 mg/dL (0.70-1.20) 08/02/25 03:20 Est GFR (MDRD) Non-Af 89 (>60) 08/02/25 03:20 BUN/Creatinine Ratio 15.9 RATIO (10-20) 08/02/25 03:20 Glucose 111 mg/dL (70-99) H 08/02/25 03:20 Vancomycin Trough 14.3 ug/mL (5.0-15.0) 08/02/25 21:06 Microbiology Microbiology: Microbiology 08/02/25 09:59 Nasal Secretion MRSA (PCR) - Final 07/30/25 18:51 Urine, Clean Catch Urine Culture - Final Culture exhibits no growth. 07/30/25 18:25 Blood Culture (Wb) - Venous Blood Culture - Preliminary No growth in 48 hours. 07/30/25 16:23 Blood Culture (Wb) - Line Draw Blood Culture - Preliminary No growth in 48 hours. 07/30/25 21:57 Mucosa - Nasopharyngeal Respiratory Panel (PCR) - Final Goal Trough Goal Trough: 15-20 mcg/mL Pharmacy Plan for Drug Dosing Pharmacy Plan for Drug Dosing: Pharmacy Service will continue to monitor and adjust dosing as required. TROUGH 14.3 @ 11.5 HOURS. INCREASE TO 1250MG Q12H AND DRAW TROUGH PRIOR TO 4TH DOSE Follow-Up Labs Follow-Up Labs: Trough: Vancomycin Date/Time Labs Ordered Labs to be done on [date and time ordered]: 08/04 @ 1030 08/02/25 2330 <Electronically signed by Ranulfo carrasco> Date _ Ranulfo Mcbride Signature (if applicable): Date CC: ~ Signed [facility] Work Phone: 1(109) 434-421910-20-2025 Consult note Author Alan Galaviz [facility] Note Date/Time August 02, 2025 4 :49pm [facility] Medical Records Department [address] [place] [address] Consultation - Infectious Dx 08/02/25 1546 MR#: [id number] Acct: [id number] Name: GLENN PARADA DEV Rep #:[id number] : 1945 80 From: Alan aldrich MD PCP: Dr. Eloina Chi MD Status:ADM IN Location: ICU CVICU20 3-1 Assessment & Plan Assessment/Plan (1) Neutropenia with fever: PLAN: Workup neg. ANC recovered, fever resolved. On vanc/zosyn, plan on 3 dayspo augmentin 875mg bid at discharge. Will follow, thank you HPI Consult Data Date of Consult: 08/02/25 HPI Narrative Reason for Consultation: neutropenic fever HPI Narrative: GLENN PARADA, is a 80 M with oropharyngeal cancer, on chemo and radiation, has R chest port. Developed fever 07/30 with shakes, came to ED admitted on vanc/zosyn and given GCSF. Feeling better. No sick contacts, no issues with port, no cough or SOB, no abd pain, no n/v/d, no rash, no dysuria. Full ROS performed and neg except as noted above. [facility] Medical History Encounter for education Wears glasses Cancer Alcohol [...] Cardiology follow-up encounter Celiac disease Home Medications ?Medication ?Instructions ?Recorded ?Last Taken ?Type levothyroxine 50 mcg tablet 50 mcg PO QDAY 03/05/24 History omeprazole 40 mg capsule,delayed 40 mg PO QDAY 4 06/30/25 History release tamsulosin 0.4 mg capsule 0.4 mg PO BID 03/05/2406/30 History prucalopride 2 mg tablet 2 mg PO DAILY 05/09/2406/30 History (Motegrity) carbidopa ER 25 mg-levodopa 100 mg 1 tab PO .qid 06/1006/30/25 History tablet,extended release fludrocortisone 0.1 mg tablet 0.1 mg PO QDAY 06/17/25 06/30/25 History lidocaine-prilocaine 2.5 %-2.5 % 1 applic topical ONCE PRN port 06/28/25 Unknown Rx topical cream access 30 days #30 grams ondansetron 8 mg disintegrating 8 mg PO Q8H PRN nausea and 06/28/25 Unknown Rx tablet vomiting #30 tabs MAGIC MOUTH WASH (BMX) 180 mL 15 ml PO .qid PRN pain # 180 mL 07/07/25 Unknown Rx suspension sodium chloride 1,000 mg soluble 1,000 mg PO QD-QID MS N electrolyte 07/26/25 Unknown Rx tablet replenishment #30 tabs guaifenesin 100 mg/5 mL oral 200 mg (10 mL) PO Q4H PRN 07/28/25 Unknown Rx liquid (Guaifed (guaifenesin)) congestion #500 mL sennosides 8.6 mg tablet (Shari-rocco) 8.6 mg PO PRN 07/14 05/07 Unknown History Allergy/AdvReac Type Severity Reaction Status Date / Time gluten Allergy Abd Verified 07/30/25 16:17 cramps/diarrhea aripiprazole AdvReac unknown Verified 07/30/25 16:17 haloperidol AdvReac unknown Verified 07/30/25 16:17 metoclopramide AdvReac unknown Verified 07/30/25 16:17 olanzapine AdvReac unknown Verified 07/30/25 16:17 prochlorperazine AdvReac unknown Verified 07/30/25 16:17 promethazine AdvReac unknown Verified 07/30/25 16:17 Family History Brother Cancer THROAT Mother Leukemia Sister Breast cancer Surgical History Hx of right cataract extraction Hx of left cataract extraction Hx of eye surgery History of hydrocelectomy Hx of hernia repair Hx of colonoscopy Social History household members: significant other housing: house current occupational status: retired Smoking Status: Former smoker alcohol intake: never substance use type: does not use Physical Exam Const alert, oriented x3 and no apparent distress General Appearance: cooperative HEENT normocephalic and head/scalp atraumatic Eyes PERRL and EOMs intact bilaterally Neck supple and No nodes Resp normal air movement and clear to auscultation bilaterally Cardio regular rate and regular rhythm GI soft to palpation, non-tender and non-distended Extremity General Extremity: Negative for edema Skin no rashes or lesions noted Skin Narrative: no pain over R chest port Neuro CN's II-XII intact bilaterally Medical Records Data Medical Nutrition Assessment Dietitian: Malnutrition Criteria Met Start: 07/31/25 11:30 Freq: Status: Active Protocol: Document 07/31/25 11:30 [facility] (Rec: 07/31/25 11:30 [facility] [id number]) Nutrition Malnutrition Evidence of Yes Malnutrition Exists Malnutrition (severe Chronic ): Evidenced By Suboptimal Energy Intake (Severe),Weight Loss (Severe) Intake Problem Inadequate Oral Intake Etiology related to oropharyngeal cancer Signs/Symptoms as evidenced by need for PEG/ EN for nutrition Status Active Problem Clinical Problem Acute Disease or Injury Related Malnutrition Etiology related to inadequate oral energy intake d/t oropharyngeal cancer Signs/Symptoms as evidenced by po intake meeting < 75% of est nutritional needs and 3% wt loss in past 5 days. Has started using PEG this week, but not up to goal yet. Status Active Problem Recommendation Dietitian Rec Jevity 1.5 bolus feeds 5x/day during waking hours - Recommendations/ goal of 240 ml per feed w/ 90 ml water flush before Changes and after feedings to provide ~ 1800 ynes / 76 gm pro/ 1812 ml free water per day. Would start day 1 at 50% giving 120 ml formula bolus feeds, day 2 increase to 75 % giving 180 ml formula bolus feeds and increase to goal rate 240 ml formula day 3 as pt tolerated. Continue to follow and monitor for changes in pt nutritional status and make additional rec as indicated . Lab / Micro Data Attestation: I reviewed the patient's lab results. 08/02/25 03:20 08/02/25 03:20 Labs: Laboratory Results - last 24 hr 07/30/25 16:04: Diff Path Review Reviewed 08/01/25 04:10: Diff Path Review N/A 08/02/25 03:20: WBC 2.3 L, RBC 2.98 L, Hgb 8.8 L, Hct 25.4 L, MCV 85.2, MCH 29.5, MCHC 34.6, RDW Std Deviation 41.4, RDW Coeff of Macho 13.4, Plt Count 129 L,MPV 10.1, Immature Gran % (Auto) 1.300 H, Neut % (Auto) 56.1, Lymph % (Auto) 18.7 L, [place] % (Auto) 19.6 H, Eos % (Auto) 1.7, Baso % (Auto) 2.6 H, Absolute Neuts (auto) 1.3 L, Absolute Lymphs (auto) 0.43 L, Nucleated RBC % 0, Differential Comment SCANNED, Sodium 136, Potassium 2.9 L, Chloride 103, Carbon Dioxide 24.6, Anion Gap 8, BUN 13, Creatinine 0.80, Estim Creat Clear Calc 70.06, Est GFR (MDRD) Non-Af 89, BUN/Creatinine Ratio 15.9, Glucose 111 H, Calcium 7.3 L, Total Bilirubin 0.48, AST 16, ALT 6, Alkaline Phosphatase 47, Total Protein 4.7 L, Albumin 2.6 L, Globulin 2.1 L, Albumin/Globulin Ratio 1.2 Micro: Microbiology 08/02/25 09:59 Nasal Secretion MRSA (PCR) - Final 07/30/25 18:51 Urine, Clean Catch Urine Culture - Final Culture exhibits no growth. 07/30/25 18:25 Blood Culture (Wb) - Venous Blood Culture - Preliminary No growth in 48 hours. 07/30/25 16:23 Blood Culture (Wb) - Line Draw Blood Culture - Preliminary No growth in 48 hours. 08/02/25 [id number] <Electronically signed by Alan Galaviz MD> Cosigner Signature (if applicable): CC: Dr. Eloina Chi MD~ Signed [facility] Work Phone: 1([phone] 729-651310-20-2025 Consult note Author Simone Collins [facility] Note Date/Time August 02, 2025 3 :01pm [facility] [address] [place] [address] Consultation - Oncology IP 08/02/25 1339 MR#: [id number] Acct: [id number] Name: GLENN PARADA DEV Rep #:[id number] : 1945 80 From: Simone Collins MD PCP: Dr. Eloina Chi MD Status:ADM IN Location: ICU CVICU20 3-1 Assessment & Plan Assessment/Plan (1) Neutropenia with fever: Status: Acute Code(s): D70.9 - Neutropenia, unspecified; R50.81 - Fever presenting with conditions classified elsewhere Plan: Neutropenic fever has resolved. Discussed further management with patient, he will continue chemotherapy as outpatient. Suggest continue current management. Once patient is stable and discharge, willfollow as outpatient for further management. HPI Consult Data Date of Service:: 08/02/25 PCP / Referring Provider: Eloina Chi MD Attending: Dr. 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 He was on treatment with weekly chemotherapy?Taxol carbo and radiation therapy. Hegot cycle 4 weekly on 07/26/2025. He developed fever on 07/30/2025, came to the ER and was found to have neutropenic fever with ANC 0.5. He was started on broad-spectrum antibiotics with G-CSF. He has improved remarkably and ANC is now 1.3. Advanced Directives Do you have a Healthcare Power of [employer]?: Yes [facility] Medical History Encounter for education Wears glasses Cancer Alcohol [...] Cardiology follow-up encounter Celiac disease Home Medications ?Medication ?Instructions ?Recorded ?Last Taken ?Type levothyroxine 50 mcg tablet 50 mcg PO QDAY 03/05/24 History omeprazole 40 mg capsule,delayed 40 mg PO QDAY 4 06/30/25 History release tamsulosin 0.4 mg capsule 0.4 mg PO BID 03/05/2406/30 History prucalopride 2 mg tablet 2 mg PO DAILY 05/09/2406/30 History (Motegrity) carbidopa ER 25 mg-levodopa 100 mg 1 tab PO .qid 06/1006/30/25 History tablet,extended release fludrocortisone 0.1 mg tablet 0.1 mg PO QDAY 06/17/25 06/30/25 History lidocaine-prilocaine 2.5 %-2.5 % 1 applic topical ONCE PRN port 06/28/25 Unknown Rx topical cream access 30 days #30 grams ondansetron 8 mg disintegrating 8 mg PO Q8H PRN nausea and 06/28/25 Unknown Rx tablet vomiting #30 tabs MAGIC MOUTH WASH (BMX) 180 mL 15 ml PO .qid PRN pain # 180 mL 07/07/25 Unknown Rx suspension sodium chloride 1,000 mg soluble 1,000 mg PO QD-QID MS N electrolyte 07/26/25 Unknown Rx tablet replenishment #30 tabs guaifenesin 100 mg/5 mL oral 200 mg (10 mL) PO Q4H PRN 07/28/25 Unknown Rx liquid (Guaifed (guaifenesin)) congestion #500 mL sennosides 8.6 mg tablet (Shari-rocco) 8.6 mg PO PRN 07/14 05/07 Unknown History Allergy/AdvReac Type Severity Reaction Status Date / Time gluten Allergy Abd Verified 07/30/25 16:17 cramps/diarrhea aripiprazole AdvReac unknown Verified 07/30/25 16:17 haloperidol AdvReac unknown Verified 07/30/25 16:17 metoclopramide AdvReac unknown Verified 07/30/25 16:17 olanzapine AdvReac unknown Verified 07/30/25 16:17 prochlorperazine AdvReac unknown Verified 07/30/25 16:17 promethazine AdvReac unknown Verified 07/30/25 16:17 Family History Brother Cancer THROAT Mother Leukemia Sister Breast cancer Surgical History Hx of right cataract extraction Hx of left cataract extraction Hx of eye surgery History of hydrocelectomy Hx of hernia repair Hx of colonoscopy Social History household members: significant other housing: house current occupational status: retired Smoking Status: Former smoker alcohol intake: never substance use type: does not use Physical Exam Narrative ECOG 1 Const alert, oriented x3 and no apparent distress HEENT normocephalic HEENT Narrative: +thick saliva in mouth Eyes conjunctivae normal and no scleral icterus Neck Neck Narrative: +L upper jugular node resolved. Chest Chest Narrative: +Port R IC area. Resp clear to auscultation bilaterally Cardio regular rate, regular rhythm, S1 normal heart sound and S2 normal heart sound GI soft to palpation and non-tender GI Narrative: +PEG tube. no CVA tenderness Back/Spine thoracic and lumbar spine normal to inspection Extremity no clubbing, cyanosis or edema Skin no rashes or lesions noted Neuro oriented x3, CN's II-XII intact bilaterally and moves all extremities Neuro Narrative: gait slow. Psych mental status grossly normal Vital Signs Temperature 99.7 F H 08/02/25 12:00 Temperature Source Oral 08/02/25 12:00 Pulse Rate 94 08/02/25 12:00 Pulse Strength Weak (1+) 08/02/25 10:00 Respiratory Rate 13 08/02/25 12:00 Respiratory Effort Normal, Non-Labored 08/02/25 08:00 Respiratory Depth Shallow 08/02/25 02:00 Respiratory Pattern Normal 08/02/25 02:00 Blood Pressure 103/61 08/02/25 12:00 Blood Pressure Mean 75 08/02/25 12:00 Blood Pressure Source Monitor 08/02/25 12:00 Blood Pressure Position Sitting 08/02/25 12:00 Blood Pressure Location Right Arm 08/02/25 12:00 Pulse Ox 95 08/02/25 12:00 Oxygen Delivery Method Room Air 08/02/25 12:00 Oxygen Flow Rate (L/min) 2 07/31/25 07:00 Laboratory Results - last 24 hr 08/02/25 03:20: WBC 2.3 L, RBC 2.98 L, Hgb 8.8 L, Hct 25.4 L, MCV 85.2, MCH 29.5, MCHC 34.6, RDW Std Deviation 41.4, RDW Coeff of Macho 13.4, Plt Count 129 L,MPV 10.1, Immature Gran % (Auto) 1.300 H, Neut % (Auto) 56.1, Lymph % (Auto) 18.7 L, [place] % (Auto) 19.6 H, Eos % (Auto) 1.7, Baso % (Auto) 2.6 H, Absolute Neuts (auto) 1.3 L, Absolute Lymphs (auto) 0.43 L, Nucleated RBC % 0, Differential Comment SCANNED, Sodium 136, Potassium 2.9 L, Chloride 103, Carbon Dioxide 24.6, Anion Gap 8, BUN 13, Creatinine 0.80, Estim Creat Clear Calc 70.06, Est GFR (MDRD) Non-Af 89, BUN/Creatinine Ratio 15.9, Glucose 111 H, Calcium 7.3 L, Total Bilirubin 0.48, AST 16, ALT 6, Alkaline Phosphatase 47, Total Protein 4.7 L, Albumin 2.6 L, Globulin 2.1 L, Albumin/Globulin Ratio 1.2 Microbiology 08/02/25 09:59 Nasal Secretion MRSA (PCR) - Final 07/30/25 18:51 Urine, Clean Catch Urine Culture - Final Culture exhibits no growth. 07/30/25 18:25 Blood Culture (Wb) - Venous Blood Culture - Preliminary No growth in 48 hours. 07/30/25 16:23 Blood Culture (Wb) - Line Draw Blood Culture - Preliminary No growth in 48 hours. Diagnostic Data Chest X-Ray 07/30/25 18:25 IMPRESSION: No Acute Findings. Reading Location: [facility] Chest CTA 07/30/25 22:16 IMPRESSION: Right lower lobe segmental branches pulmonary emboli. No evidence of large central or massive pulmonary embolus. No evidence of cardiac strain. Minimal bilateral pleural effusions. Passive atelectatic airspace disease in the lower lobes. Mild interstitial pulmonary congestion. Right Port-A-Cath is in good position. Mild cardiomegaly. Small sliding hiatal hernia. Left renal simple cyst measuring 3.5 cm. Chronic deformity of the posterior arch of the left 11th rib. I discussed the findings with NIGEL Natarajan in the ICU at 12:33 a.m. EST. Reading Location: [place] [address] 08/02/25 1401 <Electronically signed by Simone Collins MD> CC: Dr. Eloina Chi MD ~ Signed [facility] Work Phone: 1(119) 786-945510-20-2025 Progress note Author Dev Reardon [facility] Note Date/Time August 02, 2025 9 :32am [facility] Medical Records Department [address] [place] [address] Progress Note - Hospitalist 08/02/25 0826 MR#: [id number] Acct: [id number] Name: GLENN PARADA DEV Rep #:[id number] : 1945 80 From: Dev Segovia PCP: Dr. Eloina Chi MD Status:ADM IN Location: ICU CVICU 3-1 Reason for Visit Chief Complaint: fever Objective Data Objective Data Vital Signs: Vital Signs Temp Pulse Resp BP Pulse Ox O2 Del Method O2 Flow Rate 98.4 F 88 17 131/74 H 92 Room Air 2 08/02/25 06:00 08/02/25 06:00 08/02/25 06:00 08/02/25 06:00 08/02/25 06:00 08/02/25 06:00 07/31/25 07:00 Oxygen Flow Rate (L/min) 2 Oxygen Delivery Method Room Air Weight: 164 lb 14.492 oz Body Mass Index (BMI) 25.0 Intake & Output: Intake and Output for Last 24 Hours 07/31/25 08/01/25 08/02/25 23:59 23:59 23:59 Intake Total 3270 / 3270 2614 / 2614 230 / 230 Output Total 3200 / 3200 1525 / 1525 450 / 450 Balance 70 / 70 1089 / 1089 -220 / -220 Medical Nutrition Assessment Dietitian: Malnutrition Criteria Met Start: 07/31/25 11:30 Freq: Status: Active Protocol: Document 07/31/25 11:30 [facility] (Rec: 07/31/25 11:30 [facility] [id number]) Nutrition Malnutrition Evidence of Yes Malnutrition Exists Malnutrition (severe Chronic ): Evidenced By Suboptimal Energy Intake (Severe),Weight Loss (Severe) Intake Problem Inadequate Oral Intake Etiology related to oropharyngeal cancer Signs/Symptoms as evidenced by need for PEG/ EN for nutrition Status Active Problem Clinical Problem Acute Disease or Injury Related Malnutrition Etiology related to inadequate oral energy intake d/t oropharyngeal cancer Signs/Symptoms as evidenced by po intake meeting < 75% of est nutritional needs and 3% wt loss in past 5 days. Has started using PEG this week, but not up to goal yet. Status Active Problem Recommendation Dietitian Rec Jevity 1.5 bolus feeds 5x/day during waking hours - Recommendations/ goal of 240 ml per feed w/ 90 ml water flush before Changes and after feedings to provide ~ 1800 ynes / 76 gm pro/ 1812 ml free water per day. Would start day 1 at 50% giving 120 ml formula bolus feeds, day 2 increase to 75 % giving 180 ml formula bolus feeds and increase to goal rate 240 ml formula day 3 as pt tolerated. Continue to follow and monitor for changes in pt nutritional status and make additional rec as indicated . Lab / Micro Data 08/02/25 03:20 08/02/25 03:20 Labs: Laboratory Results - last 24 hr 08/01/25 12:00: Sodium 135, Potassium 3.2 L, Chloride 102, Carbon Dioxide 22.7, Anion Gap 10, BUN 11, Creatinine 0.75, Estim Creat Clear Calc 70.06, Est GFR (MDRD) Non-Af 91, BUN/Creatinine Ratio 14.7, Glucose 100 H, Calcium 7.8, Phosphorus 1.7 L, Magnesium 1.7 08/02/25 03:20: WBC 2.3 L, RBC 2.98 L, Hgb 8.8 L, Hct 25.4 L, MCV 85.2, MCH 29.5, MCHC 34.6, RDW Std Deviation 41.4, RDW Coeff of Macho 13.4, Plt Count 129 L,MPV 10.1, Immature Gran % (Auto) 1.300 H, Neut % (Auto) 56.1, Lymph % (Auto) 18.7 L, [place] % (Auto) 19.6 H, Eos % (Auto) 1.7, Baso % (Auto) 2.6 H, Absolute Neuts (auto) 1.3 L, Absolute Lymphs (auto) 0.43 L, Nucleated RBC % 0, Differential Comment SCANNED, Sodium 136, Potassium 2.9 L, Chloride 103, Carbon Dioxide 24.6, Anion Gap 8, BUN 13, Creatinine 0.80, Estim Creat Clear Calc 70.06, Est GFR (MDRD) Non-Af 89, BUN/Creatinine Ratio 15.9, Glucose 111 H, Calcium 7.3 L, Total Bilirubin 0.48, AST 16, ALT 6, Alkaline Phosphatase 47, Total Protein 4.7 L, Albumin 2.6 L, Globulin 2.1 L, Albumin/Globulin Ratio 1.2 Micro: Microbiology 07/30/25 18:25 Blood Culture (Wb) - Venous Blood Culture - Preliminary No growth in 48 hours. 07/30/25 16:23 Blood Culture (Wb) - Line Draw Blood Culture - Preliminary No growth in 48 hours. 07/30/25 18:51 Urine, Clean Catch Urine Culture - Preliminary Culture exhibits no growth. 07/30/25 21:57 Mucosa - Nasopharyngeal Respiratory Panel (PCR) - Final Physical Exam Narrative Seen and examined Patient has swelling/thick mucus secretions over oropharyngeal and throat region. On tube feed through PEG tube. Had BM yesterday. Physical exam General: Alert, Oriented x3, Cooperative HEENT: Atraumatic, PERRLA, EOMI, Normocephalic. Oral: Yellowish patch over left and right lateral margin of anterior tongue. Mucositis and thick viscous mucoid accretions on the lateral margin of buccal cavity Oral gingivitis/soreness Neck: Supple, No JVD, Negative Carotid Bruits Chest wall/Lungs: Air entry diminished in bilateral lung bases. Mild crepitations on bases Cardiovascular: Regular rate and rhythm, Normal S1,S2, No M/G/R Abdomen: PEG tube bowel Sounds Present, Soft, Non Tender, Non-Distended : No dysuria. No renal angle tenderness. No suprapubic tenderness. Extremities: Mild leg edema, Capillary Refill Less than 3 Seconds Skin: No rashes, No breakdown Musculoskeletal: Decreased muscle strength of knees and hip joints. No Tenderness to Palpation of Joints or Extremities Neurological: DTR 2+/4. No acute focal neurological deficit. Psych/Mental Status: Flat affect. 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 #Acute febrile neutropenia in the setting of metastatic oropharyngeal cancer * Patient is admitted to ICU due to concerns for sepsis and rapid deterioration in light of his immunocompromised state. Admitted with a complaint of fever. He had radiation on day of admission and chemotherapy 4 days ago. * Denies any urinary symptoms or any respiratory symptoms or abdominal symptoms. Patient is tachycardic with heart rate of 131. Lactic acid is less than 1. * Patient was hydrated hydrate aggressively with IV fluids. Continue IV vancomycin and Zosyn. * Neutropenic precautions. * consult critical care. * 07/31: Low-grade fever today. Tmax 102.0 on 07/30 about 8 PM. Leukopenia, thrombocytopenia and anemia/pancytopenia. ANC 0.9 K suggestive of moderate neutropenia, ALC 0.27/lymphopenia, basophils 2.2%. Does not meet criteria for sepsis. Urine culture exhibits no growth. Respiratory panel negative. 08/01: No fever, Tmax 100.1 F. Still leukopenia, ANC 1.1 K, improved from 0.5 K. Started on Granix. Discussed with pharmacy and Peridex/chlorhexidine oral rinse ordered. Mouth hygiene. Continue antibiotic. ID consult tomorrow AM. 08/02: Tmax 100.4 Fahrenheit on 08/01 evening. ANC 1.2 K, continue Granix today. Continue Peridex and oral hygiene for mouth soreness and mucositis. Oncologist consult requested as per patient's request. He was supposed to startchemotherapy today but it is contraindicated due to neutropenic fever and pancytopenia for now. Cultures are negative so far. ID consulted to narrow down the antibiotic #PE * D dimer ordered due to tachcyardia. * D dimer was markedly elevated at ~ 7, so stat CTA chest done which showed pulmonary embolism of the right lower lobe subsegmenal branches. * patient started on therapeutic lovenox. 05/31: Continue Lovenox. Shows mild decrease in hemoglobin and platelet count. Platelet count 0.183 on 07/26. 06/01: Platelet count 147K, improved from yesterday. H&H 8.8/25.6%. Bands 8%, metamyelocytes 4%. Pancytopenia since admission due to chemotherapy and radiotherapy 06/02: All 3 cell lines are low. Platelet count 129K. Patient also on Lovenox as mentioned above. #parkinson's disease with Dementia: On levodopa carbidopa #GERD: PPI #Hypothyroidism: On Synthroid #BPH: On Flomax DVT prophylaxis: not indicated as patient started on therapeutic lovenox for newly diagnosed PE Electrolyte abnormality: Hypocalcemia: Calcium 6.9, albumin 3.4. Corrected calcium is 7.4 therefore IV calcium gluconate ordered. 08/01: Severe hypokalemia, K2.6. 40 mEq oral and 40 mEq IV KCl replaced. Repeat serum magnesium and phosphorus and BMP after 1 hour of completion of electrolyte replacement. CODE STATUS:full code * Patient and counseled extensively about different types of CODE STATUS including full code, DNR CCA and DNR CCA. * Patients elects for him to be full code. Microbiology Past 72 Hours 07/30/25 18:25 Blood Culture (Wb) - Venous Blood Culture - Preliminary No growth in 48 hours. 07/30/25 16:23 Blood Culture (Wb) - Line Draw Blood Culture - Preliminary No growth in 48 hours. 07/30/25 18:51 Urine, Clean Catch Urine Culture - Preliminary Culture exhibits no growth. 07/30/25 21:57 Mucosa - Nasopharyngeal Respiratory Panel (PCR) - Final Laboratory Results 08/01/25 12:00: Sodium 135, Potassium 3.2 L, Chloride 102, Carbon Dioxide 22.7, Anion Gap 10, BUN 11, Creatinine 0.75, Estim Creat Clear Calc 70.06, Est GFR (MDRD) Non-Af 91, BUN/Creatinine Ratio 14.7, Glucose 100 H, Calcium 7.8, Phosphorus 1.7 L, Magnesium 1.7 08/02/25 03:20: WBC 2.3 L, RBC 2.98 L, Hgb 8.8 L, Hct 25.4 L, MCV 85.2, MCH 29.5, MCHC 34.6, RDW Std Deviation 41.4, RDW Coeff of Macho 13.4, Plt Count 129 L,MPV 10.1, Immature Gran % (Auto) 1.300 H, Neut % (Auto) 56.1, Lymph % (Auto) 18.7 L, [place] % (Auto) 19.6 H, Eos % (Auto) 1.7, Baso % (Auto) 2.6 H, Absolute Neuts (auto) 1.3 L, Absolute Lymphs (auto) 0.43 L, Nucleated RBC % 0, Differential Comment SCANNED, Sodium 136, Potassium 2.9 L, Chloride 103, Carbon Dioxide 24.6, Anion Gap 8, BUN 13, Creatinine 0.80, Estim Creat Clear Calc 70.06, Est GFR (MDRD) Non-Af 89, BUN/Creatinine Ratio 15.9, Glucose 111 H, Calcium 7.3 L, Total Bilirubin 0.48, AST 16, ALT 6, Alkaline Phosphatase 47, Total Protein 4.7 L, Albumin 2.6 L, Globulin 2.1 L, Albumin/Globulin Ratio 1.2 Clinical Impression(s) from Imaging Studies Chest X-Ray 07/30/25 18:25 IMPRESSION: No Acute Findings. Reading Location: [facility] Chest CTA 07/30/25 22:16 IMPRESSION: Right lower lobe segmental branches pulmonary emboli. No evidence of large central or massive pulmonary embolus. No evidence of cardiac strain. Minimal bilateral pleural effusions. Passive atelectatic airspace disease in the lower lobes. Mild interstitial pulmonary congestion. Right Port-A-Cath is in good position. Mild cardiomegaly. Small sliding hiatal hernia. Left renal simple cyst measuring 3.5 cm. Chronic deformity of the posterior arch of the left 11th rib. I discussed the findings with NIGEL Natarajan in the ICU at 12:33 a.m. EST. Reading Location: [place] [address] Charges/Coding Visit Charges Inpatient E&M: 83323 Subs Hosp L3 08/02/25 0832 <Electronically signed by Dev Reardon MD> Cosigner Signature (if applicable): CC: ~ Signed [facility] Work Phone: 1(798) 580-591410-19-2025 Progress note Author Sundar Reid [facility] Note Date/Time August 01, 2025 3 :33pm [facility] Medical Records Department [address] [place] [address] Progress Note - Mental Hygienist 08/01/25 1431 MR#: [id number] Acct: [id number] Name: GLENN PARADA DEV Rep #:[id number] : 1945 80 From: Sundar Reid MD PCP: Dr. Eloina Chi MD Status:ADM IN Location: ICU CVICU20 3-1 Objective Data Objective Data Vital Signs: Vital Signs Last response 3 Temperature 37.4 C H 08/01/25 13:48 Temperature Source Core 08/01/25 13:48 Pulse Rate 96 08/01/25 13:48 Pulse Strength Weak (1+) 07/30/25 21:11 Respiratory Rate 17 08/01/25 13:48 Respiratory Effort Normal 08/01/25 13:47 Respiratory Depth Shallow 08/01/25 13:47 Respiratory Pattern Normal 08/01/25 13:47 Blood Pressure 129/74 H 08/01/25 13:48 Blood Pressure Mean 92 08/01/25 13:48 Blood Pressure Source Monitor 08/01/25 13:48 Blood Pressure Position Sitting 08/01/25 13:48 Blood Pressure Location Left Arm 08/01/25 13:48 Pulse Ox 96 08/01/25 13:48 Oxygen Delivery Method Room Air 08/01/25 13:48 Oxygen Flow Rate (L/min) 2 07/31/25 07:00 I&O: I&O Last 24 Hours 3 07/31/25 08/01/25 08/01/25 23:59 11:59 23:59 Intake Total 1775 / 3270 500 / 650 150 / 650 Output Total 1325 / 3200 450 / 825 375 / 825 Balance 450 / 70 50 / -175 -225 / -175 I&O: Total Stay 3 07/30/25 16:15 thru 08/01/25 13:41 Intake Total 7454.25 Output Total 4375 Balance 3079.25 Current Meds Ordered / Administered: Current meds ordered / Administered 3 Generic Name Dose Route Start Last Admin Trade Name Freq PRN Reason Stop Dose Admin Carbidopa/Levodopa 1 tablet 08/01/25 00:00 08/01/25 13:18 Carbidopa/Levodopa 25/100 Tablet GT 1 tablet 0000,0600,1200,2000 KRISHAN Administration Chlorhexidine Gluconate 15 ml 08/01/25 08:30 08/01/25 13:17 Chlorhexidine 480 Ml PO 15 ml TID KRISHAN Administration Clarify Med Order 1 each 07/30/25 21:45 07/31/25 16:24 Clarify Order NOTE 1 each CLARIFY KRISHAN Administration Enoxaparin Sodium 70 mg 07/31/25 01:00 08/01/25 06:00 Enoxaparin 80 Mg/0.8 Ml Syringe SC 70 mg Q12@0600,1800 KRISHAN Administration Fludrocortisone Acetate 0.1 mg 08/01/25 10:00 08/01/25 09:53 Fludrocortisone Acetate 0.1 Mg Tablet GT 0.1 mg On Hold: 08/01/25 10:58 DAILY KRISHAN Administration Guaifenesin 10 ml 07/31/25 20:29 Guaifenesin 10 Ml Udc (200mg/10ml) GT Q4H PRN CONGESTION Vancomycin IV-PHARMACY TO DOSE 500 mls @ 250 mls/hr 07/30/25 20:30 1 each/ Sodium Chloride IV X1 PRN Rx to Dose Protocol Piperacillin Sod/Tazobactam 50 mls @ 12.5 mls/hr 07/31/25 06:00 08/01/25 13:19 Sod 3.375 gm/ Sodium Chloride IV 12.5 mls/hr Q8 KRISHAN Administration Sodium Chloride 250 mls @ 15 mls/hr 07/30/25 20:31 07/31/25 20:04 IV 15 mls/hr .[id number] PRN Administration Saline Flush Sodium Chloride 250 mls @ 15 mls/hr 07/30/25 20:31 07/31/25 20:05 IV 15 mls/hr .[id number] PRN Administration Additional IVPB Infusion Vancomycin HCl 1,000 mg/ 270 mls @ 250 mls/hr 08/01/25 09:00 08/01/25 09:49 Sodium Chloride IV 250 mls/hr Q12H KRISHAN Administration Magnesium Sulfate 2 gm/ 104 mls @ 52 mls/hr 08/01/25 14:19 Dextrose IV 08/01/25 16:18 X1 ONE Levothyroxine Sodium 50 mcg 08/01/25 06:00 08/01/25 06:02 Levothyroxine 50 Mcg Tablet GT 50 mcg DAILY@0600 KRISHAN Administration Lidocaine/Diphenhydr/Alum/Mg/Simeth 15 ml 07/31/25 18:30 08/01/25 13:18 Bmx Liquid 180 Ml PO 15 ml 4X/DAY KRISHAN Administration Lidocaine/Prilocaine 1 gm 07/30/25 20:42 Lidocaine/Prilocaine Hcl 5 Gm Tube TOPICAL X1 PRN PORT ACCESS Protocol Nitroglycerin 0.4 mg 07/30/25 20:30 Nitroglycerin (Inpatient Use) 0.4 Mg Tab.Subl SL Q5M PRN CARDIAC/CHEST PAIN Non-Formulary Medication 2 mg 07/31/25 10:00 Prucalopride [Motegrity] PO DAILY [facility] Ondansetron HCl 4 mg 07/30/25 20:30 Ondansetron 4 Mg/2 Ml Vial IV Q8H PRN PRN NAUSEA/VOMITING Pantoprazole Sodium 40 mg 07/30/25 20:30 08/01/25 09:53 Pantoprazole Sodium 40 Mg Tablet PO Not Given DAILY [facility] Potassium Phos/Sodium Phos 1 packet 08/01/25 14:20 Na Biphos/Potassium Phosphate Packet PO 08/03/25 14:21 TID [facility] Senna/Docusate Sodium 2 tablet 07/31/25 22:00 08/01/25 09:53 Senna/Docusate Sodium 1 Tablet GT Not Given BID [facility] Sodium Chloride 1 gm 07/30/25 20:30 Sodium Chloride 1 Gm Tablet PO 4X/DAY PRN PRN electrolyte replenishment Sodium Chloride 10 - 40 ml 07/30/25 20:31 08/01/25 04:38 0.9% Saline Lock 10 Ml Syringe IV 40 ml UD PRN Administration SALINE FLUSH Tamsulosin HCl 0.4 mg 07/30/25 22:00 08/01/25 09:52 Tamsulosin Hcl 0.4 Mg Capsule PO Not Given BID [facility] Tbo-Filgrastim 300 mcg 08/02/25 10:00 Tbo-Filgrastim 300 Mcg/0.5 Ml Ml SC 08/05/25 10:01 DAILY [facility] Vancomycin Protocol 1 lab 08/02/25 19:30 Vancomycin Trough/Random Due MC 08/02/25 21:30 DAILY [facility] Medical Records Data Medical Nutrition Assessment Dietitian: Malnutrition Criteria Met Start: 07/31/25 11:30 Freq: Status: Active Protocol: Document 07/31/25 11:30 SLA (Rec: 07/31/25 11:30 SLA [id number]) Nutrition Malnutrition Evidence of Yes Malnutrition Exists Malnutrition (severe Chronic ): Evidenced By Suboptimal Energy Intake (Severe),Weight Loss (Severe) Intake Problem Inadequate Oral Intake Etiology related to oropharyngeal cancer Signs/Symptoms as evidenced by need for PEG/ EN for nutrition Status Active Problem Clinical Problem Acute Disease or Injury Related Malnutrition Etiology related to inadequate oral energy intake d/t oropharyngeal cancer Signs/Symptoms as evidenced by po intake meeting < 75% of est nutritional needs and 3% wt loss in past 5 days. Has started using PEG this week, but not up to goal yet. Status Active Problem Recommendation Dietitian Rec Jevity 1.5 bolus feeds 5x/day during waking hours - Recommendations/ goal of 240 ml per feed w/ 90 ml water flush before Changes and after feedings to provide ~ 1800 ynes / 76 gm pro/ 1812 ml free water per day. Would start day 1 at 50% giving 120 ml formula bolus feeds, day 2 increase to 75 % giving 180 ml formula bolus feeds and increase to goal rate 240 ml formula day 3 as pt tolerated. Continue to follow and monitor for changes in pt nutritional status and make additional rec as indicated . Lab / Micro Data Attestation: I reviewed the patient's lab results. 08/01/25 04:10 08/01/25 12:00 Labs: Laboratory Results - last 24 hr 08/01/25 04:10: WBC 1.8 L, RBC 2.97 L, Hgb 8.8 L, Hct 25.6 L, MCV 86.2, MCH 29.6, MCHC 34.4, RDW Std Deviation 41.8, RDW Coeff of Macho 13.5, Plt Count 147 L, MPV 10.2, Immature Gran % (Auto) Not Reportable, Neut % (Auto) Not Reportable, Lymph % (Auto) Not Reportable, [place] % (Auto) Not Reportable, Eos % (Auto) Not Reportable, Baso % (Auto) Not Reportable, Absolute Neuts (auto) 1.1 L, Absolute Lymphs (auto) 0.36 L, Total Counted 100, Neutrophils % (Manual) 60, Band Neutrophils % 8 H, Lymphocytes % (Manual) 20, Monocytes % (Manual) 4, Eosinophils % (Manual) 3, Basophils % (Manual) 1, Metamyelocytes % 4 H, Nucleated RBC % 0, Diff Path Review May foll, Platelet Estimate SLT DEC, [place] Cells 1+, Sodium 135, Potassium 2.6 L*, Chloride 101, Carbon Dioxide 23.7, Anion Gap 10, BUN 12, Creatinine 0.72, Estim Creat Clear Calc 70.06, Est GFR (MDRD) Non-Af 92, BUN/Creatinine Ratio 16.7, Glucose 106 H, Calcium 7.7, Total Bilirubin 0.55, AST 17, ALT < 5, Alkaline Phosphatase 47, Total Creatine Kinase 51, Total Protein 4.8 L, Albumin 2.6 L, Globulin 2.1 L, Albumin/Globulin Ratio 1.2, Vitamin B12 587 08/01/25 04:35: Serum Folate 7.55 08/01/25 06:10: Vancomycin Trough 9.0 08/01/25 12:00: Sodium 135, Potassium 3.2 L, Chloride 102, Carbon Dioxide 22.7, Anion Gap 10, BUN 11, Creatinine 0.75, Estim Creat Clear Calc 70.06, Est GFR (MDRD) Non-Af 91, BUN/Creatinine Ratio 14.7, Glucose 100 H, Calcium 7.8, Phosphorus 1.7 L, Magnesium 1.7 Assessment and Plan . Assessment and plan: Febrile Neutropenia secondary to chemotherapy * ANC improved * Continue broad-spectrum coverage: Vancomycin + Piperacillin-Tazobactam per ID/oncology guidance. * Continue Granix daily until ANC > 1.0 ?10?/L. * FU cultures (all NGTD) * Daily CBC and BMP. * Avoid rectal temps, IM injections. Acute Pulmonary Embolism * Continue therapeutic enoxaparin * Monitor for bleeding * Consider IVC filter if platelets drop <30k or if bleeding risk high. Chemotherapy-Induced Cytopenias and mucositis * Monitor CBC daily * Coordinate with oncology for chemotherapy hold. * oral care * remains NPO Metastatic Oropharyngeal Cancer * Continue chemoradiation per oncologic schedule if stabilized. * Oncology consult for timing of next cycle and prognosis. Hypothyroidism / Possible Adrenal Insufficiency * Continue levothyroxine. * Continue fludrocortisone; consider hydrocortisone stress dosing if hypotensive or septic physiology develops. GERD * Continue PPI; avoid aspiration risk. Critical Care Time: The entirety of this encounter was done via Telemedicine Subjective Subjective No further issues with respiratory insufficiency, plans for transfer are appropriate 08/01/25 1433 <Electronically signed by Sundar Reid MD> Cosigner Signature (if applicable): CC: ~ Signed [facility] Work Phone: [phone] Consult note Author Brady Longoria [facility] Note Date/Time August 04, 2025 2 :07pm [facility] Medical Records Department [address] [place] [address] Pharmacokinetic/Renal -Consult 08/01/25 1034 MR#: [id number] Acct: [id number] Name: GLENN PARADA DEV Rep #:[id number] : 1945 80 From: Brady Aparicio [facility] PCP: Dr. Eloina Chi MD Status:ADM IN Y Location: ICU CVICU20 3-1 Consult Antibiotic Management Pharmacy has been consulted to manage selected antibiotic: Vancomycin Type of Intervention Type of Consult: Follow-up Suspected Infection Suspected Infection: Other Labs Labs: Sodium 135 mmol/L (133-145) 08/01/25 04:10 Potassium 2.6 mmol/L (3.3-5.1) L* 08/01/25 04:10 Chloride 101 mmol/L (98-108) 08/01/25 04:10 Carbon Dioxide 23.7 mmol/L (21.0-32.0) 08/01/25 04:10 Anion Gap 10 (5-15) 08/01/25 04:10 BUN 12 mg/dL (4-19) 08/01/25 04:10 Creatinine 0.72 mg/dL (0.70-1.20) 08/01/25 04:10 Est GFR (MDRD) Non-Af 92 (>60) 08/01/25 04:10 BUN/Creatinine Ratio 16.7 RATIO (10-20) 08/01/25 04:10 Glucose 106 mg/dL (70-99) H 08/01/25 04:10 Vancomycin Trough 9.0 ug/mL (5.0-15.0) 08/01/25 06:10 Microbiology Microbiology: Microbiology 07/30/25 18:51 Urine, Clean Catch Urine Culture - Preliminary Culture exhibits no growth. 07/30/25 21:57 Mucosa - Nasopharyngeal Respiratory Panel (PCR) - Final Goal Trough Goal Trough: 15-20 mcg/mL Pharmacy Plan for Drug Dosing Pharmacy Plan for Drug Dosing: VANCOMYCIN LEVEL RECEIVED Current Vancomycin Dose: 750mg q12h (0630,1830) Number of Doses Received: x1 1750mg ER dose, x2 750mg doses Vancomycin Level: 9 (drawn 08/01 at 0610) Hours Since Last Dose: 10 hours since last 750mg dose on 07/31 at 2005 Renal Function: SrCr 0.72 Renal Function Trend: SrCr improving (was 0.81 on 07/30) Lab/Micro: Vancomycin Plan/Comments: resulted trough of 9 is below the ordered goal trough range of 15-20. recommend increasing dose to 1000mg q12h and checking a trough prior to the 4th dose Pending Level: 08/02/25 at 2029 Pharmacy Service will continue to monitor and adjust dosing as required. Follow-Up Labs Follow-Up Labs: Trough: Vancomycin (08/02/25 at 2030) 08/01/25 1034 <Electronically signed by Brady Salmeron [facility]> Date _ Brady Longoria [facility] Cosigner Signature (if applicable): Date CC: ~ Signed [facility] Work Phone: [phone] Progress note Author Devbo Reardon [facility] Note Date/Time August 01, 2025 9 :47am [facility] Medical Records Department [address] [place] [address] Progress Note - Hospitalist 08/01/25 0823 MR#: [id number] Acct: [id number] Name: GLENN PARADA DEV Rep #:[id number] : 1945 80 From: Dev Segovia PCP: Dr. Eloina Chi MD Status:ADM IN Location: ICU CVICU20 3-1 Reason for Visit Chief Complaint: fever Objective Data Objective Data Vital Signs: Vital Signs Temp Pulse Resp BP Pulse Ox O2 Del Method O2 Flow Rate 98.0 F 100 15 127/70 H 94 Room Air 2 08/01/25 04:00 08/01/25 07:00 08/01/25 07:00 08/01/25 07:00 08/01/25 07:00 08/01/25 07:03 07/31/25 07:00 Oxygen Flow Rate (L/min) 2 Oxygen Delivery Method Room Air Weight: 162 lb 0.636 oz Body Mass Index (BMI) 24.6 Intake & Output: Intake and Output for Last 24 Hours 07/30/25 07/31/25 08/01/25 23:59 23:59 23:59 Intake Total 3534.25 / 3584.25 3270 / 3270 350 / 350 Output Total 350 / 1900 3200 / 3200 450 / 450 Balance 3184.25 / 1684.25 70 / 70 -100 / -100 Medical Nutrition Assessment Dietitian: Malnutrition Criteria Met Start: 07/31/25 11:30 Freq: Status: Active Protocol: Document 07/31/25 11:30 SLA (Rec: 07/31/25 11:30 SLA [id number]) Nutrition Malnutrition Evidence of Yes Malnutrition Exists Malnutrition (severe Chronic ): Evidenced By Suboptimal Energy Intake (Severe),Weight Loss (Severe) Intake Problem Inadequate Oral Intake Etiology related to oropharyngeal cancer Signs/Symptoms as evidenced by need for PEG/ EN for nutrition Status Active Problem Clinical Problem Acute Disease or Injury Related Malnutrition Etiology related to inadequate oral energy intake d/t oropharyngeal cancer Signs/Symptoms as evidenced by po intake meeting < 75% of est nutritional needs and 3% wt loss in past 5 days. Has started using PEG this week, but not up to goal yet. Status Active Problem Recommendation Dietitian Rec Jevity 1.5 bolus feeds 5x/day during waking hours - Recommendations/ goal of 240 ml per feed w/ 90 ml water flush before Changes and after feedings to provide ~ 1800 ynes / 76 gm pro/ 1812 ml free water per day. Would start day 1 at 50% giving 120 ml formula bolus feeds, day 2 increase to 75 % giving 180 ml formula bolus feeds and increase to goal rate 240 ml formula day 3 as pt tolerated. Continue to follow and monitor for changes in pt nutritional status and make additional rec as indicated . Lab / Micro Data 08/01/25 04:10 08/01/25 04:10 Labs: Laboratory Results - last 24 hr 08/01/25 04:10: WBC 1.8 L, RBC 2.97 L, Hgb 8.8 L, Hct 25.6 L, MCV 86.2, MCH 29.6, MCHC 34.4, RDW Std Deviation 41.8, RDW Coeff of Macho 13.5, Plt Count 147 L,MPV 10.2, Immature Gran % (Auto) Not Reportable, Neut % (Auto) Not Reportable, Lymph % (Auto) Not Reportable, [place] % (Auto) Not Reportable, Eos % (Auto) Not Reportable, Baso % (Auto) Not Reportable, Absolute Neuts (auto) 1.1 L, Absolute Lymphs (auto) 0.36 L, Total Counted 100, Neutrophils % (Manual) 60, Band Neutrophils % 8 H, Lymphocytes % (Manual) 20, Monocytes % (Manual) 4, Eosinophils % (Manual) 3, Basophils % (Manual) 1, Metamyelocytes % 4 H, Nucleated RBC % 0, Diff Path Review May foll, Platelet Estimate SLT DEC, [place] Cells 1+, Sodium 135, Potassium 2.6 L*, Chloride 101, Carbon Dioxide 23.7, AnionGap 10, BUN 12, Creatinine 0.72, Estim Creat Clear Calc 70.06, Est GFR (MDRD) Non-Af 92, BUN/Creatinine Ratio 16.7, Glucose 106 H, Calcium 7.7, Total Bilirubin 0.55, AST 17, ALT < 5, Alkaline Phosphatase 47, Total Creatine Kinase 51, Total Protein 4.8 L, Albumin 2.6 L, Globulin 2.1 L, Albumin/Globulin Ratio 1.2, Vitamin B12 587 08/01/25 04:35: Serum Folate 7.55 08/01/25 06:10: Vancomycin Trough 9.0 Micro: Microbiology 07/30/25 18:51 Urine, Clean Catch Urine Culture - Preliminary Culture exhibits no growth. 07/30/25 21:57 Mucosa - Nasopharyngeal Respiratory Panel (PCR) - Final Physical Exam Narrative Seen and examined Patient has swelling/thick mucus secretions over oropharyngeal and throat region. On tube feed through PEG tube Physical exam General: Alert, Oriented x3, Cooperative HEENT: Atraumatic, PERRLA, EOMI, Normocephalic. Oral: Yellowish patch over left lateral margin of anterior tongue. Thick viscous mucoid accretions on the lateral margin of buccal cavity Oral gingivitis/soreness Neck: Supple, No JVD, Negative Carotid Bruits Chest wall/Lungs: Air entry diminished in bilateral lung bases. Mild crepitations on bases Cardiovascular: Regular rate and rhythm, Normal S1,S2, No M/G/R Abdomen: PEG tube bowel Sounds Present, Soft, Non Tender, Non-Distended : No dysuria. No renal angle tenderness. No suprapubic tenderness. Extremities: Mild leg edema, Capillary Refill Less than 3 Seconds Skin: No rashes, No breakdown Musculoskeletal: Decreased muscle strength of knees and hip joints. No Tenderness to Palpation of Joints or Extremities Neurological: DTR 2+/4. No acute focal neurological deficit. Psych/Mental Status: Flat affect. 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 #Acute febrile neutropenia in the setting of metastatic oropharyngeal cancer * Patient is admitted to ICU due to concerns for sepsis and rapid deterioration in light of his immunocompromised state. Admitted with a complaint of fever. He had radiation on day of admission and chemotherapy 4 days ago. * Denies any urinary symptoms or any respiratory symptoms or abdominal symptoms. Patient is tachycardic with heart rate of 131. Lactic acid is less than 1. * Patient was hydrated hydrate aggressively with IV fluids. Continue IV vancomycin and Zosyn. * Neutropenic precautions. * consult critical care. * 07/31: Low-grade fever today. Tmax 102.0 on 07/30 about 8 PM. Leukopenia, thrombocytopenia and anemia/pancytopenia. ANC 0.9 K suggestive of moderate neutropenia, ALC 0.27/lymphopenia, basophils 2.2%. Does not meet criteria for sepsis. Urine culture exhibits no growth. Respiratory panel negative. 08/01: No fever, Tmax 100.1 F. Still leukopenia, ANC 1.1 K, improved from 0.5 K. Started on Granix. Discussed with pharmacy and Peridex/chlorhexidine oral rinse ordered. Mouth hygiene. Continue antibiotic. ID consult tomorrow AM. #PE * D dimer ordered due to tachcyardia. * D dimer was markedly elevated at ~ 7, so stat CTA chest done which showed pulmonary embolism of the right lower lobe subsegmenal branches. * patient started on therapeutic lovenox. 05/31: Continue Lovenox. Shows mild decrease in hemoglobin and platelet count. Platelet count 0.183 on 07/26. 06/01: Platelet count 100 47K, improved from yesterday. H&H 8.8/25.6%. Bands 8%, metamyelocytes 4%. #parkinson's disease with Dementia: On levodopa carbidopa #GERD: PPI #Hypothyroidism: On Synthroid #BPH: On Flomax DVT prophylaxis: not indicated as patient started on therapeutic lovenox for newly diagnosed PE Electrolyte abnormality: Hypocalcemia: Calcium 6.9, albumin 3.4. Corrected calcium is 7.4 therefore IV calcium gluconate ordered. 08/01: Severe hypokalemia, K2.6. 40 mEq oral and 40 mEq IV KCl replaced. Repeat serum magnesium and phosphorus and BMP after 1 hour of completion of electrolyte replacement. CODE STATUS:full code * Patient and counseled extensively about different types of CODE STATUS including full code, DNR CCA and DNR CCA. * Patients elects for him to be full code. Microbiology Past 72 Hours 07/30/25 18:51 Urine, Clean Catch Urine Culture - Preliminary Culture exhibits no growth. 07/30/25 21:57 Mucosa - Nasopharyngeal Respiratory Panel (PCR) - Final Laboratory Results 08/01/25 04:10: WBC 1.8 L, RBC 2.97 L, Hgb 8.8 L, Hct 25.6 L, MCV 86.2, MCH 29.6, MCHC 34.4, RDW Std Deviation 41.8, RDW Coeff of Macho 13.5, Plt Count 147 L,MPV 10.2, Immature Gran % (Auto) Not Reportable, Neut % (Auto) Not Reportable, Lymph % (Auto) Not Reportable, [place] % (Auto) Not Reportable, Eos % (Auto) Not Reportable, Baso % (Auto) Not Reportable, Absolute Neuts (auto) 1.1 L, Absolute Lymphs (auto) 0.36 L, Total Counted 100, Neutrophils % (Manual) 60, Band Neutrophils % 8 H, Lymphocytes % (Manual) 20, Monocytes % (Manual) 4, Eosinophils % (Manual) 3, Basophils % (Manual) 1, Metamyelocytes % 4 H, Nucleated RBC % 0, Diff Path Review May foll, Platelet Estimate SLT DEC, [place] Cells 1+, Sodium 135, Potassium 2.6 L*, Chloride 101, Carbon Dioxide 23.7, AnionGap 10, BUN 12, Creatinine 0.72, Estim Creat Clear Calc 70.06, Est GFR (MDRD) Non-Af 92, BUN/Creatinine Ratio 16.7, Glucose 106 H, Calcium 7.7, Total Bilirubin 0.55, AST 17, ALT < 5, Alkaline Phosphatase 47, Total Creatine Kinase 51, Total Protein 4.8 L, Albumin 2.6 L, Globulin 2.1 L, Albumin/Globulin Ratio 1.2, Vitamin B12 587 08/01/25 04:35: Serum Folate 7.55 08/01/25 06:10: Vancomycin Trough 9.0 Clinical Impression(s) from Imaging Studies Chest X-Ray 07/30/25 18:25 IMPRESSION: No Acute Findings. Reading Location: [facility] Chest CTA 07/30/25 22:16 IMPRESSION: Right lower lobe segmental branches pulmonary emboli. No evidence of large central or massive pulmonary embolus. No evidence of cardiac strain. Minimal bilateral pleural effusions. Passive atelectatic airspace disease in the lower lobes. Mild interstitial pulmonary congestion. Right Port-A-Cath is in good position. Mild cardiomegaly. Small sliding hiatal hernia. Left renal simple cyst measuring 3.5 cm. Chronic deformity of the posterior arch of the left 11th rib. I discussed the findings with NIGEL Natarajan in the ICU at 12:33 a.m. EST. Reading Location: [place] [address] Charges/Coding Visit Charges Inpatient E&M: 70830 Subs Hosp L3 08/01/25 0847 <Electronically signed by Dev Reardon MD> Cosigner Signature (if applicable): CC: ~ Signed [facility] Work Phone: [phone] Progress note Author Dev [facility] Note Date/Time July 31, 2025 5 :59pm [facility] Medical Records Department [address] [place] [address] Progress Note - Hospitalist 07/31/25829 MR#: [id number] Acct: [id number] Name: GLENN PARADA DVE Rep #:[id number] : 1945 80 From: Dev Segovia PCP: Dr. Eloina Chi MD Status:ADM IN Location: ICU CVICU20 3-1 Reason for Visit Chief Complaint: fever Objective Data Objective Data Vital Signs: Vital Signs Temp Pulse Resp BP Pulse Ox O2 Del Method O2 Flow Rate 97.5 F L 97 17 110/59 L 97 Nasal Cannula 2 07/31/25 07:00 07/31/25 07:00 07/31/25 07:00 07/31/25 07:00 07/31/25 07:00 07/31/25 07:00 07/31/25 07:00 Oxygen Flow Rate (L/min) 2 Oxygen Delivery Method Nasal Cannula Weight: 160 lb 11.472 oz Body Mass Index (BMI) 24.3 Intake & Output: Intake and Output for Last 24 Hours 07/29/25 07/30/25 07/31/25 23:59 23:59 23:59 Intake Total 3534.25 / 3584.25 1495 / 1495 Output Total 350 / 1900 1875 / 1875 Balance 3184.25 / 1684.25 -380 / -380 Lab / Micro Data 07/31/25 03:45 07/31/25 03:45 Labs: Laboratory Results - last 24 hr 07/30/25 16:04: WBC 1.0 L*, RBC 3.59 L, Hgb 10.7 L, Hct 31.5 L, MCV 87.7, MCH 29.8, MCHC 34.0, RDW Std Deviation 43.3, RDW Coeff of Macho 13.6, Plt Count TNP, MPV TNP, Immature Gran % (Auto) 0.000, Neut % (Auto) 45.1 L, Lymph % (Auto) 45.1H, [place] % (Auto) 7.8, Eos % (Auto) 0.0, Baso % (Auto) 2.0 H, Absolute Neuts (auto) 0.5 L, Absolute Lymphs (auto) 0.46 L, Nucleated RBC % 0, Diff Path ReviewMay foll, PT 13.8, INR 1.0, APTT 30.3, Sodium 133, Potassium 3.4, Chloride 97 L,Carbon Dioxide 25.3, Anion Gap 10, BUN 22 H, Creatinine 0.81, Estim Creat Clear Calc 69.20, Est GFR (MDRD) Non-Af 88, BUN/Creatinine Ratio 26.7 H, Glucose 110 H, Calcium 8.1, Total Bilirubin 0.66, AST 26, ALT 8, Alkaline Phosphatase 58, Total Protein 5.9, Albumin 3.4, Globulin 2.6, Albumin/Globulin Ratio 1.3 07/30/25 16:23: Lactic Acid < 1.0 07/30/25 18:51: Urine Color Straw, Urine Clarity Clear, Urine pH 7.0, Ur Specific [place] 1.010, Urine Protein Negative, Urine Glucose (UA) Normal, UrineKetones 5 H, Urine Occult Blood 10 H, Urine Nitrite Negative, Urine Bilirubin Negative, Urine Urobilinogen Normal, Ur Leukocyte Esterase Negative, Urine RBC 0-5 SEEN, Urine WBC 0-5 SEEN, Ur Squamous Epith Cells 0-5 SEEN, Urine Bacteria 0SEEN, Urine Mucus 0 SEEN 07/30/25 20:44: D-Dimer Quant (PE/DVT) 7.44 H* 07/30/25 20:54: MRSA (PCR) Negative 07/31/25 03:45: WBC 1.4 L*, RBC 3.04 L, Hgb 9.0 L, Hct 26.5 L, MCV 87.2, MCH 29.6, MCHC 34.0, RDW Std Deviation 42.4, RDW Coeff of Macho 13.6, Plt Count 129 L,MPV 9.9, Immature Gran % (Auto) 0.700, Neut % (Auto) 68.4, Lymph % (Auto) 19.9, [place] % (Auto) 8.1, Eos % (Auto) 0.7, Baso % (Auto) 2.2 H, Absolute Neuts (auto) 0.9 L, Absolute Lymphs (auto) 0.27 L, Nucleated RBC % 0, Differential Comment SCANNED, [place] Cells 1+, Sodium 138, Potassium 3.0 L, Chloride 105, Carbon Dioxide 23.9, Anion Gap 9, BUN 12, Creatinine 0.70, Estim Creat Clear Calc 70.06, Est GFR (MDRD) Non-Af 93, BUN/Creatinine Ratio 17.8, Glucose 110 H, Calcium 6.9 L Micro: Microbiology 07/30/25 21:57 Mucosa - Nasopharyngeal Respiratory Panel (PCR) - Final Radiography Diagnostic Testing: Radiology Impression Chest X-Ray 07/30/25 18:25 IMPRESSION: No Acute Findings. Reading Location: [facility] Chest CTA 07/30/25 22:16 IMPRESSION: Right lower lobe segmental branches pulmonary emboli. No evidence of large central or massive pulmonary embolus. No evidence of cardiac strain. Minimal bilateral pleural effusions. Passive atelectatic airspace disease in the lower lobes. Mild interstitial pulmonary congestion. Right Port-A-Cath is in good position. Mild cardiomegaly. Small sliding hiatal hernia. Left renal simple cyst measuring 3.5 cm. Chronic deformity of the posterior arch of the left 11th rib. I discussed the findings with NIGEL Natarajan in the ICU at 12:33 a.m. EST. Reading Location: [place] [address] Physical Exam Narrative Seen and examined Patient has swelling over oropharyngeal and throat region. On tube feed throughPEG tube Physical exam General: Alert, Oriented x3, Cooperative HEENT: Atraumatic, PERRLA, EOMI, Normocephalic. Oral: Yellowish patch over left lateral margin of anterior tongue. Thick saliva/crusted lesions around lips. Oral gingivitis/soreness Neck: Supple, No JVD, Negative Carotid Bruits Chest wall/Lungs: Air entry diminished in bilateral lung bases. No crepitation/rhonchi Cardiovascular: Regular rate and rhythm, Normal S1,S2, No M/G/R Abdomen: PEG tube bowel Sounds Present, Soft, Non Tender, Non-Distended : No dysuria. No renal angle tenderness. No suprapubic tenderness. Extremities: Mild leg edema, Capillary Refill Less than 3 Seconds Skin: No rashes, No breakdown Musculoskeletal: Decreased muscle strength of knees and hip joints. No Tenderness to Palpation of Joints or Extremities Neurological: DTR 2+/4. No acute focal neurological deficit. Psych/Mental Status: Flat affect. 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 #Acute febrile neutropenia in the setting of metastatic oropharyngeal cancer * Patient is admitted to ICU due to concerns for sepsis and rapid deterioration in light of his immunocompromised state. Admitted with a complaint of fever. He had radiation on day of admission and chemotherapy 4 days ago. * Denies any urinary symptoms or any respiratory symptoms or abdominal symptoms. Patient is tachycardic with heart rate of 131. Lactic acid is less than 1. * Patient was hydrated hydrate aggressively with IV fluids. Continue IV vancomycin and Zosyn. * Neutropenic precautions. * consult critical care. * 07/31: Low-grade fever today. Tmax 102.0 on 07/30 about 8 PM. Leukopenia, thrombocytopenia and anemia/pancytopenia. ANC 0.9 K suggestive of moderate neutropenia, ALC 0.27/lymphopenia, basophils 2.2%. Does not meet criteria for sepsis. Urine culture exhibits no growth. Respiratory panel negative. #PE * D dimer ordered due to tachcyardia. * D dimer was markedly elevated at ~ 7, so stat CTA chest done which showed pulmonary embolism of the right lower lobe subsegmenal branches. * patient started on therapeutic lovenox. 05/31: Continue Lovenox. Shows mild decrease in hemoglobin and platelet count. Platelet count 0.183 on 07/26. 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 Corrected calcium is 7.4 therefore IV calcium gluconate ordered. CODE STATUS:full code * Patient and counseled extensively about different types of CODE STATUS including full code, DNR CCA and DNR CCA. * Patients elects for him to be full code. Microbiology Past 72 Hours 07/30/25 18:51 Urine, Clean Catch Urine Culture - Preliminary Culture exhibits no growth. 07/30/25 21:57 Mucosa - Nasopharyngeal Respiratory Panel (PCR) - Final Laboratory Results 07/30/25 16:04: WBC 1.0 L*, RBC 3.59 L, Hgb 10.7 L, Hct 31.5 L, MCV 87.7, MCH 29.8, MCHC 34.0, RDW Std Deviation 43.3, RDW Coeff of Macho 13.6, Plt Count TNP, MPV TNP, Immature Gran % (Auto) 0.000, Neut % (Auto) 45.1 L, Lymph % (Auto) 45.1H, [place] % (Auto) 7.8, Eos % (Auto) 0.0, Baso % (Auto) 2.0 H, Absolute Neuts (auto) 0.5 L, Absolute Lymphs (auto) 0.46 L, Nucleated RBC % 0, Diff Path ReviewMay foll, PT 13.8, INR 1.0, APTT 30.3, Sodium 133, Potassium 3.4, Chloride 97 L,Carbon Dioxide 25.3, Anion Gap 10, BUN 22 H, Creatinine 0.81, Estim Creat Clear Calc 69.20, Est GFR (MDRD) Non-Af 88, BUN/Creatinine Ratio 26.7 H, Glucose 110 H, Calcium 8.1, Total Bilirubin 0.66, AST 26, ALT 8, Alkaline Phosphatase 58, Total Protein 5.9, Albumin 3.4, Globulin 2.6, Albumin/Globulin Ratio 1.3 07/30/25 16:23: Lactic Acid < 1.0 07/30/25 18:51: Urine Color Straw, Urine Clarity Clear, Urine pH 7.0, Ur Specific [place] 1.010, Urine Protein Negative, Urine Glucose (UA) Normal, UrineKetones 5 H, Urine Occult Blood 10 H, Urine Nitrite Negative, Urine Bilirubin Negative, Urine Urobilinogen Normal, Ur Leukocyte Esterase Negative, Urine RBC 0-5 SEEN, Urine WBC 0-5 SEEN, Ur Squamous Epith Cells 0-5 SEEN, Urine Bacteria 0SEEN, Urine Mucus 0 SEEN 07/30/25 20:44: D-Dimer Quant (PE/DVT) 7.44 H* 07/30/25 20:54: MRSA (PCR) Negative 07/31/25 03:45: WBC 1.4 L*, RBC 3.04 L, Hgb 9.0 L, Hct 26.5 L, MCV 87.2, MCH 29.6, MCHC 34.0, RDW Std Deviation 42.4, RDW Coeff of Macho 13.6, Plt Count 129 L,MPV 9.9, Immature Gran % (Auto) 0.700, Neut % (Auto) 68.4, Lymph % (Auto) 19.9, [place] % (Auto) 8.1, Eos % (Auto) 0.7, Baso % (Auto) 2.2 H, Absolute Neuts (auto) 0.9 L, Absolute Lymphs (auto) 0.27 L, Nucleated RBC % 0, Differential Comment SCANNED, [place] Cells 1+, Sodium 138, Potassium 3.0 L, Chloride 105, Carbon Dioxide 23.9, Anion Gap 9, BUN 12, Creatinine 0.70, Estim Creat Clear Calc 70.06, Est GFR (MDRD) Non-Af 93, BUN/Creatinine Ratio 17.8, Glucose 110 H, Calcium 6.9 L Clinical Impression(s) from Imaging Studies Chest X-Ray 07/30/25 18:25 IMPRESSION: No Acute Findings. Reading Location: [facility] Chest CTA 07/30/25 22:16 IMPRESSION: Right lower lobe segmental branches pulmonary emboli. No evidence of large central or massive pulmonary embolus. No evidence of cardiac strain. Minimal bilateral pleural effusions. Passive atelectatic airspace disease in the lower lobes. Mild interstitial pulmonary congestion. Right Port-A-Cath is in good position. Mild cardiomegaly. Small sliding hiatal hernia. Left renal simple cyst measuring 3.5 cm. Chronic deformity of the posterior arch of the left 11th rib. I discussed the findings with NIGEL Natarajan in the ICU at 12:33 a.m. EST. Reading Location: [place] [address] Charges/Coding Visit Charges Inpatient E&M: 48395 Subs Hosp L3 07/31/25 8179 <Electronically signed by Dev Reardon MD> Cosigner Signature (if applicable): CC: ~ Signed [facility] Work Phone: [phone] Progress note Author Sundar Reid [facility] Note Date/Time July 31, 2025 1 2:43pm [facility] Medical Records Department [address] [place] [address] Progress Note - Mental Hygienist 07/31/25 1134 MR#: [id number] Acct: [id number] Name: GLENN PARADA DEV Rep #:[id number] : 1945 80 From: Sundar Reid MD PCP: Dr. Eloina Chi MD Status:ADM IN Location: ICU CVICU20 3-1 Objective Data Objective Data Vital Signs: Vital Signs Last response 3 Temperature 36.4 C L 07/31/25 07:00 Temperature Source Core 07/31/25 07:00 Pulse Rate 97 07/31/25 07:00 Pulse Strength Weak (1+) 07/30/25 21:11 Respiratory Rate 17 07/31/25 07:00 Respiratory Effort Normal, Non-Labored 07/31/25 08:00 Respiratory Depth Normal 07/31/25 08:00 Respiratory Pattern Normal 07/31/25 08:00 Blood Pressure 110/59 L 07/31/25 07:00 Blood Pressure Mean 76 07/31/25 07:00 Blood Pressure Source Monitor 07/31/25 07:00 Blood Pressure Position Semi-Fowlers 07/31/25 07:00 Blood Pressure Location Right Arm 07/31/25 07:00 Pulse Ox 97 07/31/25 07:00 Oxygen Delivery Method Room Air 07/31/25 08:00 Oxygen Flow Rate (L/min) 2 07/31/25 07:00 I&O: I&O Last 24 Hours 3 07/30/25 07/30/25 07/31/25 11:59 23:59 11:59 Intake Total 3534.25 / 3584.25 1495 / 1495 Output Total 350 / 1900 1875 / 1875 Balance 3184.25 / 1684.25 -380 / -380 I&O: Total Stay 3 07/30/25 16:15 thru 07/31/25 11:12 Intake Total 5029.25 Output Total 2225 Balance 2804.25 Current Meds Ordered / Administered: Current meds ordered / Administered 3 Generic Name Dose Route Start Last Admin Trade Name Freq PRN Reason Stop Dose Admin Carbidopa/Levodopa 1 tablet 07/31/25 00:00 07/31/25 05:39 Carbidopa/Levodopa 25/100 Tablet PO 1 tablet 0000,0600,1200,2000 KRISHAN Administration Clarify Med Order 1 each 07/30/25 21:45 07/31/25 00:03 Clarify Order NOTE Not Given CLARIFY [facility] Enoxaparin Sodium 70 mg 07/31/25 01:00 07/31/25 01:46 Enoxaparin 80 Mg/0.8 Ml Syringe SC 70 mg Q12@0600,1800 KRISHAN Administration Fludrocortisone Acetate 0.1 mg 07/30/25 20:30 07/30/25 21:27 Fludrocortisone Acetate 0.1 Mg Tablet PO 0.1 mg DAILY KRISHAN Administration Guaifenesin 10 ml 07/30/25 20:30 Guaifenesin 10 Ml Udc (200mg/10ml) PO Q4H PRN CONGESTION Vancomycin IV-PHARMACY TO DOSE 500 mls @ 250 mls/hr 07/30/25 20:30 1 each/ Sodium Chloride IV X1 PRN Rx to Dose Protocol Piperacillin Sod/Tazobactam 50 mls @ 12.5 mls/hr 07/31/25 06:00 07/31/25 05:38 Sod 3.375 gm/ Sodium Chloride IV 12.5 mls/hr Q8 KRISHAN Administration Sodium Chloride 250 mls @ 15 mls/hr 07/30/25 20:31 IV .[id number] PRN Saline Flush Sodium Chloride 250 mls @ 15 mls/hr 07/30/25 20:31 IV .[id number] PRN Additional IVPB Infusion Vancomycin HCl 750 mg/ Sodium 265 mls @ 250 mls/hr 07/31/25 06:30 07/31/25 07:28 Chloride IV Infused Q12H KRISHAN Infusion Levothyroxine Sodium 50 mcg 07/31/25 06:00 07/31/25 05:39 Levothyroxine 50 Mcg Tablet PO 50 mcg DAILY@0600 KRISHAN Administration Lidocaine/Diphenhydr/Alum/Mg/Simeth 15 ml 07/30/25 20:44 Bmx Liquid 180 Ml PO 4X/DAY PRN PRN Pain Score 1-10 Lidocaine/Prilocaine 1 gm 07/30/25 20:42 Lidocaine/Prilocaine Hcl 5 Gm Tube TOPICAL X1 PRN PORT ACCESS Protocol Nitroglycerin 0.4 mg 07/30/25 20:30 Nitroglycerin (Inpatient Use) 0.4 Mg Tab.Subl SL Q5M PRN CARDIAC/CHEST PAIN Non-Formulary Medication 2 mg 07/31/25 10:00 Prucalopride [Motegrity] PO DAILY [facility] Ondansetron HCl 4 mg 07/30/25 20:30 Ondansetron 4 Mg/2 Ml Vial IV Q8H PRN PRN NAUSEA/VOMITING Pantoprazole Sodium 40 mg 07/30/25 20:30 07/30/25 21:26 Pantoprazole Sodium 40 Mg Tablet PO 40 mg DAILY [facility] Administration Senna 1 tablet 07/30/25 20:30 Senna Tablet PO DAILY PRN PRN Constipation Sodium Chloride 1 gm 07/30/25 20:30 Sodium Chloride 1 Gm Tablet PO 4X/DAY PRN PRN electrolyte replenishment Sodium Chloride 10 - 40 ml 07/30/25 20:31 07/31/25 01:46 0.9% Saline Lock 10 Ml Syringe IV 10 ml UD PRN Administration SALINE FLUSH Tamsulosin HCl 0.4 mg 07/30/25 22:00 07/30/25 20:53 Tamsulosin Hcl 0.4 Mg Capsule PO Not Given BID [facility] Vancomycin Protocol 1 lab 08/01/25 05:00 Vancomycin Trough/Random Due MC 08/01/25 07:00 DAILY [facility] Medical Records Data Medical Nutrition Assessment Dietitian: Malnutrition Criteria Met Start: 07/31/25 11:30 Freq: Status: Active Protocol: Document 07/31/25 11:30 SLA (Rec: 07/31/25 11:30 [facility] [id number]) Nutrition Malnutrition Evidence of Yes Malnutrition Exists Malnutrition (severe Chronic ): Evidenced By Suboptimal Energy Intake (Severe),Weight Loss (Severe) Intake Problem Inadequate Oral Intake Etiology related to oropharyngeal cancer Signs/Symptoms as evidenced by need for PEG/ EN for nutrition Status Active Problem Clinical Problem Acute Disease or Injury Related Malnutrition Etiology related to inadequate oral energy intake d/t oropharyngeal cancer Signs/Symptoms as evidenced by po intake meeting < 75% of est nutritional needs and 3% wt loss in past 5 days. Has started using PEG this week, but not up to goal yet. Status Active Problem Recommendation Dietitian Rec Jevity 1.5 bolus feeds 5x/day during waking hours - Recommendations/ goal of 240 ml per feed w/ 90 ml water flush before Changes and after feedings to provide ~ 1800 ynes / 76 gm pro/ 1812 ml free water per day. Would start day 1 at 50% giving 120 ml formula bolus feeds, day 2 increase to 75 % giving 180 ml formula bolus feeds and increase to goal rate 240 ml formula day 3 as pt tolerated. Continue to follow and monitor for changes in pt nutritional status and make additional rec as indicated . Lab / Micro Data Attestation: I reviewed the patient's lab results. 07/31/25 03:45 07/31/25 03:45 Labs: Laboratory Results - last 24 hr 07/30/25 16:04: WBC 1.0 L*, RBC 3.59 L, Hgb 10.7 L, Hct 31.5 L, MCV 87.7, MCH 29.8, MCHC 34.0, RDW Std Deviation 43.3, RDW Coeff of Macho 13.6, Plt Count TNP, MPV TNP, Immature Gran % (Auto) 0.000, Neut % (Auto) 45.1 L, Lymph % (Auto) 45.1 H, [place] % (Auto) 7.8, Eos % (Auto) 0.0, Baso % (Auto) 2.0 H, Absolute Neuts (auto) 0.5 L, Absolute Lymphs (auto) 0.46 L, Nucleated RBC % 0, Diff Path Review February, PT 13.8, INR 1.0, APTT 30.3, Sodium 133, Potassium 3.4, Chloride 97 L, Carbon Dioxide 25.3, Anion Gap 10, BUN 22 H, Creatinine 0.81, Estim Creat Clear Calc 69.20, Est GFR (MDRD) Non-Af 88, BUN/Creatinine Ratio 26.7 H, Glucose 110 H, Calcium 8.1, Total Bilirubin 0.66, AST 26, ALT 8, Alkaline Phosphatase 58, Total Protein 5.9, Albumin 3.4, Globulin 2.6, Albumin/Globulin Ratio 1.3 07/30/25 16:23: Lactic Acid < 1.0 07/30/25 18:51: Urine Color Straw, Urine Clarity Clear, Urine pH 7.0, Ur Specific [place] 1.010, Urine Protein Negative, Urine Glucose (UA) Normal, Urine Ketones 5 H, Urine Occult Blood 10 H, Urine Nitrite Negative, Urine Bilirubin Negative, Urine Urobilinogen Normal, Ur Leukocyte Esterase Negative, Urine RBC 0-5 SEEN, Urine WBC 0-5 SEEN, Ur Squamous Epith Cells 0-5 SEEN, Urine Bacteria 0 SEEN, Urine Mucus 0 SEEN 07/30/25 20:44: D-Dimer Quant (PE/DVT) 7.44 H* 07/30/25 20:54: MRSA (PCR) Negative 07/31/25 03:45: WBC 1.4 L*, RBC 3.04 L, Hgb 9.0 L, Hct 26.5 L, MCV 87.2, MCH 29.6, MCHC 34.0, RDW Std Deviation 42.4, RDW Coeff of Macho 13.6, Plt Count 129 L, MPV 9.9, Immature Gran % (Auto) 0.700, Neut % (Auto) 68.4, Lymph % (Auto) 19.9, [place] % (Auto) 8.1, Eos % (Auto) 0.7, Baso % (Auto) 2.2 H, Absolute Neuts (auto) 0.9 L, Absolute Lymphs (auto) 0.27 L, Nucleated RBC % 0, Differential Comment SCANNED, [place] Cells 1+, Sodium 138, Potassium 3.0 L, Chloride 105, Carbon Dioxide 23.9, Anion Gap 9, BUN 12, Creatinine 0.70, Estim Creat Clear Calc 70.06, Est GFR (MDRD) Non-Af 93, BUN/Creatinine Ratio 17.8, Glucose 110 H, Calcium 6.9 L Micro: Microbiology 07/30/25 18:51 Urine, Clean Catch Urine Culture - Preliminary Culture exhibits no growth. 07/30/25 21:57 Mucosa - Nasopharyngeal Respiratory Panel (PCR) - Final Imaging Radiology Impression Chest X-Ray 07/30/25 18:25 IMPRESSION: No Acute Findings. Reading Location: [facility] Chest CTA 07/30/25 22:16 IMPRESSION: Right lower lobe segmental branches pulmonary emboli. No evidence of large central or massive pulmonary embolus. No evidence of cardiac strain. Minimal bilateral pleural effusions. Passive atelectatic airspace disease in the lower lobes. Mild interstitial pulmonary congestion. Right Port-A-Cath is in good position. Mild cardiomegaly. Small sliding hiatal hernia. Left renal simple cyst measuring 3.5 cm. Chronic deformity of the posterior arch of the left 11th rib. I discussed the findings with RN Faby Natarajan in the ICU at 12:33 a.m. EST. Reading Location: [place] [address] Assessment and Plan . Assessment and plan: Febrile Neutropenia secondary to chemotherapy * ANC today 900 * Continue broad-spectrum coverage: Vancomycin + Piperacillin-Tazobactam per ID/oncology guidance. * Continue Granix daily until ANC > 1.0 ?10?/L. * FU cultures (all NGTD) * Maintain neutropenic precautions. * Daily CBC and BMP. * Avoid rectal temps, IM injections. Acute Pulmonary Embolism * Continue therapeutic enoxaparin * Monitor for bleeding * Consider IVC filter if platelets drop <30k or if bleeding risk high. Chemotherapy-Induced Cytopenias and mucositis * Monitor CBC daily * Coordinate with oncology for chemotherapy hold. * oral care and CONTRACT ENGINEER to evaluate for swallowing Metastatic Oropharyngeal Cancer * Continue chemoradiation per oncologic schedule if stabilized. * Oncology consult for timing of next cycle and prognosis. Hypothyroidism / Possible Adrenal Insufficiency * Continue levothyroxine. * Continue fludrocortisone; consider hydrocortisone stress dosing if hypotensive or septic physiology develops. GERD * Continue PPI; avoid aspiration risk. Fluid and Electrolyte Management * IVF as needed; now euvolemic after 3 L boluses. * Strict I/O; daily weights. * Continue ICU for close monitoring of neutropenic fever, PE anticoagulation, and cytopenia management. Critical Care Time: 50 minutes The entirety of this encounter was done via Telemedicine Physical Exam Const alert General Appearance: combative and ill appearing Orientation / Consciousness: disoriented HEENT head/scalp atraumatic Face and Sinus: normal facial exam Nose: external nose normal Mouth: oral and palatal mucosa abnormal Eyes PERRL Neck full ROM Chest inspection of chest normal Resp normal respiratory effort Subjective Subjective Events reviewed, details of Dr. Fall's consultation discussed. He is oriented only to self, struggling with swallowing- coughed for 30 minutes after attempting to swallow Tylenol. 07/31/25 1143 <Electronically signed by Sundar Reid MD> Cosigner Signature (if applicable): CC: ~ Signed [facility] Work Phone: [phone] Consult note Author Smooth Fall [facility] Note Date/Time July 31, 2025 8 :46am [facility] Medical Records Department [address] [place] [address] Consultation - Mental Hygienist 07/31/25 0328 MR#: [id number] Acct: [id number] Name: GLENN PARADA DEV Rep #:[id number] : [id number] 80 From: Smooth Fall MD PCP: Dr. Eloina Chi MD Status:ADM IN Location: ICU CVICU20 3-1 HPI Consult Data Date of Consult: 07/31/25 HPI Narrative HPI Narrative: Mr. 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 He received chemotherapy and radiation four days ago and presented to the ED with confusion, tachycardia, and fever. Initial evaluation showed: Hemoglobin 10.7 g/dL, hematocrit 31.5%, WBC 1.0 ?10?/L with ANC 0.5, Platelets unmeasurable, Anion gap 10, UA negative, CXR without acute findings. He was diagnosed with acute febrile neutropenia secondary to recent chemotherapy. Empiric vancomycin and piperacillin-tazobactam were started, and blood cultures obtained. He received 3 L of IV fluids for initial tachycardia and mild hypotension. During evaluation, D-dimer was markedly elevated CTA chest revealed acute segmental pulmonary emboli in the right lower lobe. Therapeutic enoxaparin was initiated. He also received granulocyte colony-stimulating factor for neutropenia. He subsequently became briefly agitated/confused, removed his port access, whichwas re-accessed successfully. [facility] Medical History Encounter for education Wears glasses Cancer Alcohol [...] Cardiology follow-up encounter Celiac disease Home Medications ?Medication ?Instructions ?Recorded ?Last Taken ?Type levothyroxine 50 mcg tablet 50 mcg PO QDAY 03/05/24 History omeprazole 40 mg capsule,delayed 40 mg PO QDAY 4 06/30/25 History release tamsulosin 0.4 mg capsule 0.4 mg PO BID 03/05/2406/30 History prucalopride 2 mg tablet 2 mg PO DAILY 05/09/2406/30 History (Motegrity) carbidopa ER 25 mg-levodopa 100 mg 1 tab PO .qid 06/1006/30/25 History tablet,extended release fludrocortisone 0.1 mg tablet 0.1 mg PO QDAY 06/17/25 06/30/25 History lidocaine-prilocaine 2.5 %-2.5 % 1 applic topical ONCE PRN port 06/28/25 Unknown Rx topical cream access 30 days #30 grams ondansetron 8 mg disintegrating 8 mg PO Q8H PRN nausea and 06/28/25 Unknown Rx tablet vomiting #30 tabs MAGIC MOUTH WASH (BMX) 180 mL 15 ml PO .qid PRN pain # 180 mL 07/07/25 Unknown Rx suspension sodium chloride 1,000 mg soluble 1,000 mg PO QD-QID MS N electrolyte 07/26/25 Unknown Rx tablet replenishment #30 tabs guaifenesin 100 mg/5 mL oral 200 mg (10 mL) PO Q4H PRN 07/28/25 Unknown Rx liquid (Guaifed (guaifenesin)) congestion #500 mL sennosides 8.6 mg tablet (Shari-rocco) 8.6 mg PO PRN 07/14 05/07 Unknown History Allergy/AdvReac Type Severity Reaction Status Date / Time gluten Allergy Abd Verified 07/30/25 16:17 cramps/diarrhea aripiprazole AdvReac unknown Verified 07/30/25 16:17 haloperidol AdvReac unknown Verified 07/30/25 16:17 metoclopramide AdvReac unknown Verified 07/30/25 16:17 olanzapine AdvReac unknown Verified 07/30/25 16:17 prochlorperazine AdvReac unknown Verified 07/30/25 16:17 promethazine AdvReac unknown Verified 07/30/25 16:17 Family History Brother Cancer THROAT Mother Leukemia Sister Breast cancer Surgical History Hx of right cataract extraction Hx of left cataract extraction Hx of eye surgery History of hydrocelectomy Hx of hernia repair Hx of colonoscopy Social History household members: significant other housing: house current occupational status: retired Smoking Status: Former smoker alcohol intake: never substance use type: does not use ROS ROS Narrative General: Fatigue, confusion, fever. HEENT: History of throat cancer; no active bleeding or dysphagia reported. Cardiac: No chest pain or syncope. Respiratory: Mild dyspnea; stable on 2 L O2; no cough or hemoptysis. GI: No abdominal pain, nausea, or diarrhea reported. : No dysuria; urinalysis negative. Neuro: Confusion, brief agitation; no focal deficits. Skin: No rash or lesions. Endocrine: Hypothyroid, possibly adrenally insufficient. Objective Data Objective Data Vital Signs: Vital Signs Last response 3 Temperature 36.4 C L 07/31/25 03:00 Temperature Source Core 07/31/25 03:00 Pulse Rate 76 07/31/25 03:00 Pulse Strength Weak (1+) 07/30/25 21:11 Respiratory Rate 11 L 07/31/25 03:00 Respiratory Effort Normal, Non-Labored 07/31/25 00:00 Respiratory Depth Normal 07/31/25 00:00 Respiratory Pattern Normal 07/31/25 00:00 Blood Pressure 119/72 07/31/25 03:00 Blood Pressure Mean 87 07/31/25 03:00 Blood Pressure Source Monitor 07/31/25 03:00 Blood Pressure Position Semi-Fowlers 07/31/25 03:00 Blood Pressure Location Right Arm 07/31/25 03:00 Pulse Ox 99 07/31/25 03:00 Oxygen Delivery Method Nasal Cannula 07/31/25 03:00 Oxygen Flow Rate (L/min) 2 07/31/25 03:00 I&O: I&O Last 24 Hours 3 07/30/25 07/30/25 07/31/25 11:59 23:59 11:59 Intake Total 3534.25 / 3584.25 50 / 50 Output Total 350 / 1900 1550 / 1550 Balance 3184.25 / 1684.25 -1500 / -1500 I&O: Total Stay 3 07/30/25 16:15 thru 07/31/25 00:00 Intake Total 3584.25 Output Total 1900 Balance 1684.25 Current Meds Ordered / Administered: Current meds ordered / Administered 3 Generic Name Dose Route Start Last Admin Trade Name Sunitha PRN Reason Stop Dose Admin Carbidopa/Levodopa 1 tablet 07/31/25 00:00 07/30/25 23:55 Carbidopa/Levodopa 25/100 Tablet PO 1 tablet 0000,0600,1200,2000 KRISHAN Administration Clarify Med Order 1 each 07/30/25 21:45 07/31/25 00:03 Clarify Order NOTE Not Given CLARIFY [facility] Enoxaparin Sodium 70 mg 07/31/25 01:00 07/31/25 01:46 Enoxaparin 80 Mg/0.8 Ml Syringe SC 70 mg Q12@0600,1800 KRISHAN Administration Fludrocortisone Acetate 0.1 mg 07/30/25 20:30 07/30/25 21:27 Fludrocortisone Acetate 0.1 Mg Tablet PO 0.1 mg DAILY KRISHAN Administration Guaifenesin 10 ml 07/30/25 20:30 Guaifenesin 10 Ml Udc (200mg/10ml) PO Q4H PRN CONGESTION Sodium Chloride 1,000 mls @ 150 mls/hr 07/30/25 20:30 07/30/25 21:01 IV 07/31/25 09:49 150 mls/hr .Q6H40M KRISHAN Administration Vancomycin IV-PHARMACY TO DOSE 500 mls @ 250 mls/hr 07/30/25 20:30 1 each/ Sodium Chloride IV X1 PRN Rx to Dose Protocol Piperacillin Sod/Tazobactam 50 mls @ 12.5 mls/hr 07/31/25 06:00 Sod 3.375 gm/ Sodium Chloride IV Q8 KRISHAN Sodium Chloride 250 mls @ 15 mls/hr 07/30/25 20:31 IV .[id number] PRN Saline Flush Sodium Chloride 250 mls @ 15 mls/hr 07/30/25 20:31 IV .[id number] PRN Additional IVPB Infusion Vancomycin HCl 750 mg/ Sodium 265 mls @ 250 mls/hr 07/31/25 06:30 Chloride IV Q12H [facility] Levothyroxine Sodium 50 mcg 07/31/25 06:00 Levothyroxine 50 Mcg Tablet PO DAILY@0600 [facility] Lidocaine/Diphenhydr/Alum/Mg/Simeth 15 ml 07/30/25 20:44 Bmx Liquid 180 Ml PO 4X/DAY PRN PRN Pain Score 1-10 Lidocaine/Prilocaine 1 gm 07/30/25 20:42 Lidocaine/Prilocaine Hcl 5 Gm Tube TOPICAL X1 PRN PORT ACCESS Protocol Nitroglycerin 0.4 mg 07/30/25 20:30 Nitroglycerin (Inpatient Use) 0.4 Mg Tab.Subl SL Q5M PRN CARDIAC/CHEST PAIN Non-Formulary Medication 2 mg 07/31/25 10:00 Prucalopride [Motegrity] PO DAILY [facility] Ondansetron HCl 4 mg 07/30/25 20:30 Ondansetron 4 Mg/2 Ml Vial IV Q8H PRN PRN NAUSEA/VOMITING Pantoprazole Sodium 40 mg 07/30/25 20:30 07/30/25 21:26 Pantoprazole Sodium 40 Mg Tablet PO 40 mg DAILY [facility] Administration Senna 1 tablet 07/30/25 20:30 Senna Tablet PO DAILY PRN PRN Constipation Sodium Chloride 1 gm 07/30/25 20:30 Sodium Chloride 1 Gm Tablet PO 4X/DAY PRN PRN electrolyte replenishment Sodium Chloride 10 - 40 ml 07/30/25 20:31 07/31/25 01:46 0.9% Saline Lock 10 Ml Syringe IV 10 ml UD PRN Administration SALINE FLUSH Tamsulosin HCl 0.4 mg 07/30/25 22:00 07/30/25 20:53 Tamsulosin Hcl 0.4 Mg Capsule PO Not Given BID [facility] Vancomycin Protocol 1 lab 08/01/25 05:00 Vancomycin Trough/Random Due 08/01/25 07:00 DAILY [facility] Physical Exam Narrative General: Elderly, frail male; mildly confused but redirectable; non-toxic. HEENT: Mucous membranes moist; post-radiation neck changes likely. CV: Regular rate and rhythm; no murmurs. Resp: Clear to auscultation; non-labored on 2 L O2 Abdomen: Soft, non-tender, non-distended. Extremities: No edema or cyanosis. Neuro: Awake, oriented ?2, mild confusion; moves all extremities. Skin: Warm, dry; no rash. Access: Port-a-cath re-accessed; site clean. Lab / Micro Data 07/31/25 03:45 07/31/25 03:45 Labs: Laboratory Results - last 24 hr 07/30/25 16:04: WBC 1.0 L*, RBC 3.59 L, Hgb 10.7 L, Hct 31.5 L, MCV 87.7, MCH 29.8, MCHC 34.0, RDW Std Deviation 43.3, RDW Coeff of Macho 13.6, Plt Count TNP, MPV TNP, Immature Gran % (Auto) 0.000, Neut % (Auto) 45.1 L, Lymph % (Auto) 45.1 H, [place] % (Auto) 7.8, Eos % (Auto) 0.0, Baso % (Auto) 2.0 H, Absolute Neuts (auto) 0.5 L, Absolute Lymphs (auto) 0.46 L, Nucleated RBC % 0, Diff Path Review February, PT 13.8, INR 1.0, APTT 30.3, Sodium 133, Potassium 3.4, Chloride 97 L, Carbon Dioxide 25.3, Anion Gap 10, BUN 22 H, Creatinine 0.81, Estim Creat Clear Calc 69.20, Est GFR (MDRD) Non-Af 88, BUN/Creatinine Ratio 26.7 H, Glucose 110 H, Calcium 8.1, Total Bilirubin 0.66, AST 26, ALT 8, Alkaline Phosphatase 58, Total Protein 5.9, Albumin 3.4, Globulin 2.6, Albumin/Globulin Ratio 1.3 07/30/25 16:23: Lactic Acid < 1.0 07/30/25 18:51: Urine Color Straw, Urine Clarity Clear, Urine pH 7.0, Ur Specific [place] 1.010, Urine Protein Negative, Urine Glucose (UA) Normal, Urine Ketones 5 H, Urine Occult Blood 10 H, Urine Nitrite Negative, Urine Bilirubin Negative, Urine Urobilinogen Normal, Ur Leukocyte Esterase Negative, Urine RBC 0-5 SEEN, Urine WBC 0-5 SEEN, Ur Squamous Epith Cells 0-5 SEEN, Urine Bacteria 0 SEEN, Urine Mucus 0 SEEN 07/30/25 20:44: D-Dimer Quant (PE/DVT) 7.44 H* 07/30/25 20:54: MRSA (PCR) Negative Micro: Microbiology 07/30/25 21:57 Mucosa - Nasopharyngeal Respiratory Panel (PCR) - Final Imaging Radiology Impression Chest X-Ray 07/30/25 18:25 IMPRESSION: No Acute Findings. Reading Location: [facility] Chest CTA 07/30/25 22:16 IMPRESSION: Right lower lobe segmental branches pulmonary emboli. No evidence of large central or massive pulmonary embolus. No evidence of cardiac strain. Minimal bilateral pleural effusions. Passive atelectatic airspace disease in the lower lobes. Mild interstitial pulmonary congestion. Right Port-A-Cath is in good position. Mild cardiomegaly. Small sliding hiatal hernia. Left renal simple cyst measuring 3.5 cm. Chronic deformity of the posterior arch of the left 11th rib. I discussed the findings with RN Faby Natarajan in the ICU at 12:33 a.m. EST. Reading Location: [place] [address] Assessment and Plan . Assessment and plan: Febrile Neutropenia secondary to chemotherapy * Continue broad-spectrum coverage: Vancomycin + Piperacillin-Tazobactam per ID/oncology guidance. * Continue Granix daily until ANC > 1.0 ?10?/L. * Blood cultures ?2, urine culture, CXR already obtained. * Monitor vitals q2h, fever curve, and hemodynamics. * Maintain neutropenic precautions. * Daily CBC and BMP. * Avoid rectal temps, IM injections. Acute Pulmonary Embolism * Continue therapeutic enoxaparin * Monitor for bleeding * Consider IVC filter if platelets drop <30k or if bleeding risk high. Chemotherapy-Induced Cytopenias * Monitor CBC daily; transfuse: * PRBC if Hgb < 7 g/dL, * Platelets if < 10k * Coordinate with oncology for chemotherapy hold. Metastatic Oropharyngeal Cancer * Continue chemoradiation per oncologic schedule if stabilized. * Oncology consult for timing of next cycle and prognosis. Hypothyroidism / Possible Adrenal Insufficiency * Continue levothyroxine. * Continue fludrocortisone; consider hydrocortisone stress dosing if hypotensive or septic physiology develops. Dementia / Parkinsonism * Continue carbidopa-levodopa. * Supportive environment; minimize restraints, sedatives. GERD * Continue PPI; avoid aspiration risk. Fluid and Electrolyte Management * IVF as needed; now euvolemic after 3 L boluses. * Strict I/O; daily weights. DVT/GI Prophylaxis * Therapeutic anticoagulation already in place. * PPI for GI protection. Disposition * Continue ICU for close monitoring of neutropenic fever, PE anticoagulation, and cytopenia management. 07/31/25 0746 <Electronically signed by Smooth Fall MD> Cosigner Signature (if applicable): CC: Dr. Eloina Chi MD~ Signed [facility] Work Phone: [phone]) 267-159310-18-2025 History and physical note Author Rain [facility] Note Date/Time July 31, 2025 7 :[address] [place] [address] System Medical Records Department [address] [place] [address] H&P Exam - Hospitalist 07/30/251938 MR#: [id number] Acct: [id number] Name: GLENN PARADA DEV Rep #:[id number] : 1945 80 From: Rain Gallagher MD PCP: Dr. Eloina Chi MD Status:ADM IN Location: ICU CVICU20 3-1 HPI - General General Date of Admission: 07/30/25 Date of Service: 07/30/25 Chief Complaint: fever HPI Narrative GLENN PARADA, is a 80 M with a PMH as outlined including throat cancer, currently undergoing chemotherapy, who was admitted via the ED on 07/30/2025 with a complaint of fever. He had chemotherapy 4 days ago and radiation on the day of admission. He was also found to be confused. He denied any cough, chest pain, palpitations, dizziness, nausea, vomiting or any other symptoms. Review ofsystems was otherwise negative. Vitals in the ED were BP of 133/81, MS of 126, RR of 16 and temp of 100.7F. He was saturating at 98% on room air. CBC showed Hb of 10.7, wbc of 1, platelets were unrecordable. BMP showed sodium of 133, potassium of 3.4 and bicarb of 25.3. Cr is 0.81 and anion gap is 10. CXR showed no acute cardiopulmonary findings. EKG showed sinus tachycardia. Urinalysis showed no evidence of UTI. Heis being admitted to be managed for febrile neutropenia in a patient with metastatic oropharyngeal cancer. [facility] Medical History Encounter for education Wears glasses Cancer Alcohol [...] Cardiology follow-up encounter Celiac disease Home Medications ?Medication ?Instructions ?Recorded ?Last Taken ?Type levothyroxine 50 mcg tablet 50 mcg PO QDAY 03/05/24 History omeprazole 40 mg capsule,delayed 40 mg PO QDAY 4 06/30/25 History release tamsulosin 0.4 mg capsule 0.4 mg PO BID 03/05/2406/30 History prucalopride 2 mg tablet 2 mg PO DAILY 05/09/2406/30 History (Motegrity) carbidopa ER 25 mg-levodopa 100 mg 1 tab PO .qid 06/1006/30/25 History tablet,extended release fludrocortisone 0.1 mg tablet 0.1 mg PO QDAY 06/17/25 06/30/25 History lidocaine-prilocaine 2.5 %-2.5 % 1 applic topical ONCE PRN port 06/28/25 Unknown Rx topical cream access 30 days #30 grams ondansetron 8 mg disintegrating 8 mg PO Q8H PRN nausea and 06/28/25 Unknown Rx tablet vomiting #30 tabs MAGIC MOUTH WASH (BMX) 180 mL 15 ml PO .qid PRN pain # 180 mL 07/07/25 Unknown Rx suspension sodium chloride 1,000 mg soluble 1,000 mg PO QD-QID MS N electrolyte 07/26/25 Unknown Rx tablet replenishment #30 tabs guaifenesin 100 mg/5 mL oral 200 mg (10 mL) PO Q4H PRN 07/28/25 Unknown Rx liquid (Guaifed (guaifenesin)) congestion #500 mL sennosides 8.6 mg tablet (Shari-rocco) 8.6 mg PO PRN 07/14 05/07 Unknown History Allergy/AdvReac Type Severity Reaction Status Date / Time gluten Allergy Abd Verified 07/30/25 16:17 cramps/diarrhea aripiprazole AdvReac unknown Verified 07/30/25 16:17 haloperidol AdvReac unknown Verified 07/30/25 16:17 metoclopramide AdvReac unknown Verified 07/30/25 16:17 olanzapine AdvReac unknown Verified 07/30/25 16:17 prochlorperazine AdvReac unknown Verified 07/30/25 16:17 promethazine AdvReac unknown Verified 07/30/25 16:17 Family History Brother Cancer THROAT Mother Leukemia Sister Breast cancer Surgical History Hx of right cataract extraction Hx of left cataract extraction Hx of eye surgery History of hydrocelectomy Hx of hernia repair Hx of colonoscopy Social History household members: significant other housing: house current occupational status: retired Smoking Status: Former smoker alcohol intake: never substance use type: does not use ROS Constitutional Constitutional: Reports chills, fatigue, fever(s), malaise and weakness; Denies anorexia Eyes Eyes: Denies change in vision ENT HEENT: Denies dysphagia, headache(s) or sore throat Cardiovascular Cardiovascular: Reports rapid heart rate; Denies chest pain, dyspnea on exertion, edema, lightheadedness, orthopnea, palpitations or syncope Respiratory/Chest Respiratory/Chest: Denies cough, dyspnea, productive cough, shortness of breath at rest or shortness of breath with exertion Gastrointestinal Gastrointestinal: Denies abdominal pain, nausea or vomiting Genitourinary Genitourinary: Denies dysuria Neurologic Neurologic: Reports confusion; Denies dizziness, focal weakness, headache(s), numbness or seizures Psychiatric Psychiatric: Denies anxiety or depression Vital Signs Vital Signs Vital Signs: 07/30/25 16:17 07/30/25 16:20 07/30/25 17:02 Temperature 100.2 F H 101.0 F H Temperature Source Oral Oral Pulse Rate 117 H 132 H Respiratory Rate 20 H 19 H Respiratory Effort Normal Non-Labored Respiratory Pattern Normal Blood Pressure 130/72 H 128/78 H Blood Pressure Mean 91 94 Pulse Ox 98 97 Oxygen Delivery Method Room Air Room Air 07/30/25 17:12 07/30/25 18:20 Temperature 100.7 F H Temperature Source Oral Pulse Rate 126 H Respiratory Rate 16 Respiratory Effort Respiratory Pattern Blood Pressure 133/81 H Blood Pressure Mean 98 Pulse Ox 98 Oxygen Delivery Method Room Air Room Air Weight Weight: 159 lb 9.835 oz Body Mass Index (BMI) 24.3 Physical Exam Const alert, no apparent distress and average body habitus Constitutional Narrative: looks very frail and weak General Appearance: cooperative HEENT normocephalic and head/scalp atraumatic HEENT Narrative: dry oral mucosa, has some superficial ulcerations on lips Eyes EOMs intact bilaterally and conjunctivae normal Neck supple and no JVD Resp Resp Narrative: mildly diminished breath sounds bibasally, no wheezes or crackles. On 2L of oxygen by nasal canula Cardio regular rhythm, S1 normal heart sound and S2 normal heart sound Cardio Narrative: sinus tachycardia GI normal to inspection, nondistended, normoactive bowel sounds, soft to palpation,non-tender and non-distended Extremity normal to inspection, full ROM and no clubbing, cyanosis or edema Neuro CN's II-XII intact bilaterally and moves all extremities Neuro Narrative: very frail and weak Sensorium / Orientation: awake and alert Results Lab / Micro Data 07/31/25 03:45 07/31/25 03:45 Labs: Laboratory Results - last 24 hr 07/30/25 16:04: WBC 1.0 L*, RBC 3.59 L, Hgb 10.7 L, Hct 31.5 L, MCV 87.7, MCH 29.8, MCHC 34.0, RDW Std Deviation 43.3, RDW Coeff of Macho 13.6, Plt Count TNP, MPV TNP, Immature Gran % (Auto) 0.000, Neut % (Auto) 45.1 L, Lymph % (Auto) 45.1H, [place] % (Auto) 7.8, Eos % (Auto) 0.0, Baso % (Auto) 2.0 H, Absolute Neuts (auto) 0.5 L, Absolute Lymphs (auto) 0.46 L, Nucleated RBC % 0, Diff Path ReviewMay foll, PT 13.8, INR 1.0, APTT 30.3, Sodium 133, Potassium 3.4, Chloride 97 L,Carbon Dioxide 25.3, Anion Gap 10, BUN 22 H, Creatinine 0.81, Estim Creat Clear Calc 69.20, Est GFR (MDRD) Non-Af 88, BUN/Creatinine Ratio 26.7 H, Glucose 110 H, Calcium 8.1, Total Bilirubin 0.66, AST 26, ALT 8, Alkaline Phosphatase 58, Total Protein 5.9, Albumin 3.4, Globulin 2.6, Albumin/Globulin Ratio 1.3 07/30/25 16:23: Lactic Acid < 1.0 07/30/25 18:51: Urine Color Straw, Urine Clarity Clear, Urine pH 7.0, Ur Specific [place] 1.010, Urine Protein Negative, Urine Glucose (UA) Normal, UrineKetones 5 H, Urine Occult Blood 10 H, Urine Nitrite Negative, Urine Bilirubin Negative, Urine Urobilinogen Normal, Ur Leukocyte Esterase Negative Imaging Radiology Impression Chest X-Ray 07/30/25 18:25 IMPRESSION: No Acute Findings. Reading Location: [facility] Assessment & Plan Assessment/Plan (1) Encephalopathy acute: (2) Neutropenia with fever: PLAN: Plan #Acute febrile neutropenia in the setting of metastatic oropharyngeal cancer * Admit to ICU due to concerns for sepsis and rapid deterioration in light of his immunocompromised state. Admitted with a complaint of fever. He had radiation today and chemotherapy 4 days ago. * Denies any urinary symptoms or any respiratory symptoms or abdominal symptoms. Patient is tachycardic with heart rate of 131. Lactic acid is less than 1. * Hydrate aggressively with IV fluids. Blood and urine cultures obtained. Started on IV vancomycin and Zosyn. * Neutropenic precautions. * consult critical care. * #PE * D dimer ordered due to tachcyardia. * D dimer was markedly elevated at ~ 7, so stat CTA chest done which showed pulmonary embolism of the right lower lobe subsegmenal branches. * patient started on therapeutic lovenox. * #parkinson's disease with Dementia: On levodopa carbidopa #GERD: PPI #Hypothyroidism: On Synthroid #BPH: On Flomax DVT prophylaxis: not indicated as patient started on therapeutic lovenox for newly diagnosed PE CODE STATUS:full code * Patient and counseled extensively about different types of CODE STATUS including full code, DNR CCA and DNR CCA. * Patients elects for him to be full code. * Total [id number] time 17 minutes. Charges/Coding Visit Charges Inpatient E&M: 57284 Init Hosp L3 Procedures Hospitalists Procedures: 29225 Advncd Care Plan 30 Min 07/31/25 0654 <Electronically signed by Rain Gallagher MD> Cosigner Signature (if applicable): CC: Dr. Eloina Chi MD; Dr. Rain Gallagher MD~ Signed [facility] Work Phone: 1(241) 816-753310-18-2025 Radiology Diagnostic study [facility]10-18-2025 Radiology Diagnostic study [facility]10-17-2025 Consult note Author Julia Carter [facility] Note Date/Time July 30, 2025 9 :57pm [facility] Medical Records Department [address] [place] [address] Pharmacokinetic/Renal -Consult 07/30/252054 MR#: [id number] Acct: [id number] Name: GLENN PARADA DEV Rep #:[id number] : 1945 80 From: Julia Carter PCP: Dr. Eloina Chi MD Status:ADM IN Y Location: ICU CVICU20 3-1 Consult Antibiotic Management Pharmacy has been consulted to manage selected antibiotic: Vancomycin Type of Intervention Type of Consult: New start Suspected Infection Suspected Infection: Other (ENCEPHALAPATHY) Prior Doses of Antibiotics Prior Doses of Antibiotics Received/Current Regimen: 1750 MG X1 750 MG Q12H Labs Labs: Sodium 133 mmol/L (133-145) 07/30/25 16:04 Potassium 3.4 mmol/L (3.3-5.1) 07/30/25 16:04 Chloride 97 mmol/L (98-108) L 07/30/25 16:04 Carbon Dioxide 25.3 mmol/L (21.0-32.0) 07/30/25 16:04 Anion Gap 10 (5-15) 07/30/25 16:04 BUN 22 mg/dL (4-19) H 07/30/25 16:04 Creatinine 0.81 mg/dL (0.70-1.20) 07/30/25 16:04 Est GFR (MDRD) Non-Af 88 (>60) 07/30/25 16:04 BUN/Creatinine Ratio 26.7 RATIO (10-20) H 07/30/25 16:04 Glucose 110 mg/dL (70-99) H 07/30/25 16:04 Dosing Weight Weight used for dosin.8 kg Estimated Creatinine Clearance Estimated Creatinine Clearance: 69.2 ML/LA Pharmacy Plan for Drug Dosing Pharmacy Plan for Drug Dosing: NEW START IV VANCOMYCIN Consulting Physician: Aileen Indication: Encephalopathy Goal Trough: 15-20 SrCr: 0.81 mg/dL CrCl: 69.2 ml/min Vancomycin Dose: 1x 1750 mg, and 750 mg q12h Pending Level:08/01/2025 @0600 Pharmacy Service will continue to monitor and adjust dosing as required. Follow-Up Labs Follow-Up Labs: Trough: Vancomycin Date/Time Labs Ordered Labs to be done on [date and time ordered]: 08/01/2025 @0600 07/30/252056 <Electronically signed by Julia hernandez> Date _ Julia Luigner Signature (if applicable): Date CC: ~ Signed [facility] Work Phone: 1(253) 983-881510-17-2025 Discharge summary Author Trevor Nguyen [facility] Note Date/Time July 30, 2025 9 :09pm [facility] Medical Records Department [address] [place] [id number] Emergency Department Summary 07/30/25 MR#: [id number] Acct: [id number] Name: GLENN PARADA DEV Rep #:[id number] : 1945 80 From: Trevor Nguyen MD PCP: Dr. Eloina Chi MD Status:REG ER Location: ED ADDENDUM by Dr. Trevor Nguyen MD on 07/30/[address] Gallagher informing the patient heart rate has increased to 140. Plan is admit to ICU. 07/30/252008<Electronically signed by Trevor Nguyen MD> Cosigner Signature (if applicable): cc: Dr. Eloina Chi MD ~* Signed HPI History of Present Illness Chief Complaint: Fever Detail of Chief Complaint: Throat cancer chemo Saturday radiation today sent for fever Informant: patient and spouse/S.O. Onset/Context/Timing Onset: Today Context: Sudden Onset Timing: Continuous Quality: Fever with chills Location: Not applicable Current Severity: unable to quantitate Worsened by: Patient received chemo on Saturday, August 01 and radiation today Relieved by: Nothing Associated Symptoms Associated Symptoms: Decreased awakeness Narrative Narrative: Patient is a 80-year-old gentleman. He is presently receiving chemo directed byDr. Simone Collins and radiation therapy. He received both this week. 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 He has history of hyponatremia. He does have a percutaneous endoscopic gastrostomy tube for feeding because of difficulty swallowing. He also has a port right subclavian. Patient does not have many symptoms. Initially said he had dysuria and then he stated he did not. He does have a slight cough. The cough is nonproductive Prior similar symptoms: No Recent [facility] Medical History Encounter for education Wears glasses Cancer Alcohol [...] Cardiology follow-up encounter Celiac disease Home Medications ?Medication ?Instructions ?Recorded ?Last Taken ?Type levothyroxine 50 mcg tablet 50 mcg PO QDAY 03/05/24 History omeprazole 40 mg capsule,delayed 40 mg PO QDAY 4 06/30/25 History release tamsulosin 0.4 mg capsule 0.4 mg PO BID 03/05/2406/30 History prucalopride 2 mg tablet 2 mg PO DAILY 05/09/2406/30 History (Motegrity) carbidopa ER 25 mg-levodopa 100 mg 1 tab PO .qid 06/1006/30/25 History tablet,extended release fludrocortisone 0.1 mg tablet 0.1 mg PO QDAY 06/17/25 06/30/25 History lidocaine-prilocaine 2.5 %-2.5 % 1 applic topical ONCE PRN port 06/28/25 Unknown Rx topical cream access 30 days #30 grams ondansetron 8 mg disintegrating 8 mg PO Q8H PRN nausea and 06/28/25 Unknown Rx tablet vomiting #30 tabs tramadol 50 mg tablet 50 mg PO Q6H PRN pain #5 tab s 06/30/25 Unknown Rx MAGIC MOUTH WASH (BMX) 180 mL 15 ml PO .qid PRN pain # 180 mL 07/07/25 Unknown Rx suspension sodium chloride 1,000 mg soluble 1,000 mg PO QD-QID MS N electrolyte 07/26/25 Unknown Rx tablet replenishment #30 tabs guaifenesin 100 mg/5 mL oral 200 mg (10 mL) PO Q4H PRN 07/28/25 Unknown Rx liquid (Guaifed (guaifenesin)) congestion #500 mL Allergy/AdvReac Type Severity Reaction Status Date / Time gluten Allergy Abd Verified 07/30/25 16:17 cramps/diarrhea aripiprazole AdvReac unknown Verified 07/30/25 16:17 haloperidol AdvReac unknown Verified 07/30/25 16:17 metoclopramide AdvReac unknown Verified 07/30/25 16:17 olanzapine AdvReac unknown Verified 07/30/25 16:17 prochlorperazine AdvReac unknown Verified 07/30/25 16:17 promethazine AdvReac unknown Verified 07/30/25 16:17 Family History Brother Cancer THROAT Mother Leukemia Sister Breast cancer Surgical History Hx of right cataract extraction Hx of left cataract extraction Hx of eye surgery History of hydrocelectomy Hx of hernia repair Hx of colonoscopy Social History household members: significant other housing: house current occupational status: retired Smoking Status: Former smoker alcohol intake: never substance use type: does not use ROS ROS ED Constitutional Constitutional ED: Reports chills, fever(s) and weight loss; Denies sweats Eyes Eyes: Denies blurry vision or change in vision ENT ENT ED: Denies ear pain, rhinorrhea or sore throat Cardiovascular Cardiovascular: Denies chest pain, orthopnea, palpitations or paroxysmal nocturnal dyspnea Respiratory/Chest Respiratory/Chest: Reports cough; Denies dyspnea, dyspnea on exertion, orthopneaor paroxysmal nocturnal dyspnea Gastrointestinal Gastrointestinal: Reports diarrhea and nausea; Denies abdominal pain or vomiting Genitourinary Genitourinary ED: Reports dysuria; Denies hematuria or urinary frequency Musculoskeletal Musculoskeletal: Denies arthralgias, back pain or myalgias Integumentary Reports other Details: Patient has rosacea ; Denies rash Neurologic Neurologic: Reports weakness; Denies headache(s) or paresthesias Hematologic/Lymphatic Hematologic/Lymphatic: Reports systems reviewed and no addt'l complaints, exceptas documented EXAM Physical Exam Const Vital Signs: 07/30/25 16:17 07/30/25 16:20 07/30/25 17:02 Temperature 100.2 F H 101.0 F H Temperature Source Oral Oral Pulse Rate 117 H 132 H Respiratory Rate 20 H 19 H Respiratory Effort Normal Non-Labored Respiratory Pattern Normal Blood Pressure 130/72 H 128/78 H Blood Pressure Mean 91 94 Pulse Ox 98 97 Oxygen Delivery Method Room Air Room Air 07/30/25 17:12 07/30/25 18:20 Temperature 100.7 F H Temperature Source Oral Pulse Rate 126 H Respiratory Rate 16 Respiratory Effort Respiratory Pattern Blood Pressure 133/81 H Blood Pressure Mean 98 Pulse Ox 98 Oxygen Delivery Method Room Air Room Air Positive well nourished and well developed Constitutional Narrative: Patient has rosacea. He appears ill. He is not alert. He does respond to questions asked. General Appearance ED: well developed and NAD HEENT Reports dry mucous membranes HEENT Narrative: HEENT is remarkable for rosacea otherwise negative. Mouth ED: Yes dry mucous membranes Mouth: dry mucous membranes Eyes PERRL and EOMs intact bilaterally General Eye ED: Negative for pale conjunctiva or scleral icterus Neck no lymphadenopathy, supple and no JVD Chest Wall inspection of chest normal and palpation of chest normal Resp normal respiratory effort and clear to auscultation bilaterally Cardio regular rhythm, S1 normal heart sound, S2 normal heart sound and no murmurs Rate: tachycardic GI normal to inspection, nondistended, normoactive bowel sounds, non-distended and no masses; Negative for hepatosplenomegaly Back/Spine no CVA tenderness Extremity normal to inspection Neuro oriented x3 and CN's II-XII intact bilaterally Sensorium / Orientation: alert Psych mental status grossly normal Skin no rashes or lesions noted, no wounds and skin turgor normal General Skin Exam: Negative for elasticity normal MDM MDM MDM Narrative Medical decision making narrative: Doubt patient is neutropenic since he had chemo 3 days ago and radiation today. He has no definitive source based on history and physical. Will treat for infection of unknown etiology. He was administered Zosyn and vancomycin. Reviewed Dr. Collins's notes. He is receiving radiation therapy by Dr. En Guerin. He had a radiation progress note dated July 28 that was reviewed. 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 History & Record Review Additional record(s) reviewed:: Prior outpatient record and Prior labs Lab Data Attestation: I reviewed the patient's lab results. Lab results narrative: Patient is neutropenic with an absolute neutrophil count of 450. H&H is 10 7 and 31.5. Platelet count is pending. Patient has low white counts dating back to June. H&H is essentially unchanged. Labs: Laboratory Results - last 24 hr 07/30/25 07/30/25 07/30/25 16:04 16:23 18:51 WBC 1.0 L* RBC 3.59 L Hgb 10.7 L Hct 31.5 L MCV 87.7 MCH 29.8 MCHC 34.0 RDW Std Deviation 43.3 RDW Coeff of Macho 13.6 Plt Count TNP MPV TNP Immature Gran % (Auto) 0.000 Neut % (Auto) 45.1 L Lymph % (Auto) 45.1 H [place] % (Auto) 7.8 Eos % (Auto) 0.0 Baso % (Auto) 2.0 H Absolute Neuts (auto) 0.5 L Absolute Lymphs (auto) 0.46 L Nucleated RBC % 0 Diff Path Review February foll PT 13.8 INR 1.0 APTT 30.3 Sodium 133 Potassium 3.4 Chloride 97 L Carbon Dioxide 25.3 Anion Gap 10 BUN 22 H Creatinine 0.81 Estim Creat Clear Calc 69.20 Est GFR (MDRD) Non-Af 88 BUN/Creatinine Ratio 26.7 H Glucose 110 H Lactic Acid < 1.0 Calcium 8.1 Total Bilirubin 0.66 AST 26 ALT 8 Alkaline Phosphatase 58 Total Protein 5.9 Albumin 3.4 Globulin 2.6 Albumin/Globulin Ratio 1.3 Urine Color Straw Urine Clarity Clear Urine pH 7.0 Ur Specific [place] 1.010 Urine Protein Negative Urine Glucose (UA) Normal Urine Ketones 5 H Urine Occult Blood 10 H Urine Nitrite Negative Urine Bilirubin Negative Urine Urobilinogen Normal Ur Leukocyte Esterase Negative Macro urine reveals ketones and occult blood. Negative leukoesterase and nitrites. Radiography Chest X-Ray - ED: 2 View and Read by ED Physician (There are no acute findings i.e. infiltrate, cephalization or effusion. Cardiac silhouette is normal. Cardiac size is normal. Hilum is unremarkable. Osseous structures reveal no obvious acute abnormality.) Diagnostic Testing: Clinical Impression(s) from Imaging Studies Chest X-Ray 07/30/25 18:25 IMPRESSION: No Acute Findings. Reading Location: [facility] EKG Initial EKG: Attestation: I personally reviewed and interpreted this EKG as follows: Interpretation: Sinus Tachycardia (Rate is 129. There are premature atrial complexes noted. MS interval is 158 ms. Cures duration 74 ms. QT duration 116 ms. [place] is normal) Management Discussion w/another healthcare provider: Hospitalist (Spoke with the night hospitalist Dr. Henao who will admit patient to PCU.) Treatment and Re-Evaluation :: Patient received a total of 2 L of normal saline. He was treated with antibiotics. There is no obvious source. 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 Call [facility] ([phone]) or report to the closest Emergency Room. Call 911 if necessary. 07/30/251945 <Electronically signed by Trevor Nguyen MD> Cosigner Signature (if applicable): CC: Dr. Eloina Chi MD ~ Signed [facility] Work Phone: 1(620) 703-865010-17-2025 Radiology Diagnostic study [facility]10-17-2025 Radiology Diagnostic study [facility]10-17-2025 Discharge summary Author Trevor Nguyen [facility] Note Date/Time July 30, 2025 8 :09pm [facility] Medical Records Department [address] [place] [address] Emergency Department Summary 07/30/25 MR#: [id number] Acct: [id number] Name: GLENN PARADA DEV Rep #:[id number] : 1945 80 From: Trevor Nguyen MD PCP: Dr. Eloina Chi MD Status:REG ER Location: ED ADDENDUM by Dr. Trevor Nguyen MD on 07/30/[address] Gallagher informing the patient heart rate has increased to 140. Plan is admit to ICU. 07/30/252008<Electronically signed by Trevor Nguyen MD> Cosigner Signature (if applicable): cc: Dr. Eloina Chi MD ~* Signed HPI History of Present Illness Chief Complaint: Fever Detail of Chief Complaint: Throat cancer chemo Saturday radiation today sent for fever Informant: patient and spouse/S.O. Onset/Context/Timing Onset: Today Context: Sudden Onset Timing: Continuous Quality: Fever with chills Location: Not applicable Current Severity: unable to quantitate Worsened by: Patient received chemo on Saturday, August 01 and radiation today Relieved by: Nothing Associated Symptoms Associated Symptoms: Decreased awakeness Narrative Narrative: Patient is a 80-year-old gentleman. He is presently receiving chemo directed byDr. Simone Collins and radiation therapy. He received both this week. 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 He has history of hyponatremia. He does have a percutaneous endoscopic gastrostomy tube for feeding because of difficulty swallowing. He also has a port right subclavian. Patient does not have many symptoms. Initially said he had dysuria and then he stated he did not. He does have a slight cough. The cough is nonproductive Prior similar symptoms: No Recent Illness/Hospitalization: Yes PFSH PFSH Medical History Encounter for education Wears glasses Cancer Alcohol [...] Cardiology follow-up encounter Celiac disease Home Medications ?Medication ?Instructions ?Recorded ?Last Taken ?Type levothyroxine 50 mcg tablet 50 mcg PO QDAY 03/05/24 History omeprazole 40 mg capsule,delayed 40 mg PO QDAY 4 06/30/25 History release tamsulosin 0.4 mg capsule 0.4 mg PO BID 03/05/2406/30 History prucalopride 2 mg tablet 2 mg PO DAILY 05/09/2406/30 History (Motegrity) carbidopa ER 25 mg-levodopa 100 mg 1 tab PO .qid 06/1006/30/25 History tablet,extended release fludrocortisone 0.1 mg tablet 0.1 mg PO QDAY 06/17/25 06/30/25 History lidocaine-prilocaine 2.5 %-2.5 % 1 applic topical ONCE PRN port 06/28/25 Unknown Rx topical cream access 30 days #30 grams ondansetron 8 mg disintegrating 8 mg PO Q8H PRN nausea and 06/28/25 Unknown Rx tablet vomiting #30 tabs tramadol 50 mg tablet 50 mg PO Q6H PRN pain #5 tab s 06/30/25 Unknown Rx MAGIC MOUTH WASH (BMX) 180 mL 15 ml PO .qid PRN pain # 180 mL 07/07/25 Unknown Rx suspension sodium chloride 1,000 mg soluble 1,000 mg PO QD-QID MS N electrolyte 07/26/25 Unknown Rx tablet replenishment #30 tabs guaifenesin 100 mg/5 mL oral 200 mg (10 mL) PO Q4H PRN 07/28/25 Unknown Rx liquid (Guaifed (guaifenesin)) congestion #500 mL Allergy/AdvReac Type Severity Reaction Status Date / Time gluten Allergy Abd Verified 07/30/25 16:17 cramps/diarrhea aripiprazole AdvReac unknown Verified 07/30/25 16:17 haloperidol AdvReac unknown Verified 07/30/25 16:17 metoclopramide AdvReac unknown Verified 07/30/25 16:17 olanzapine AdvReac unknown Verified 07/30/25 16:17 prochlorperazine AdvReac unknown Verified 07/30/25 16:17 promethazine AdvReac unknown Verified 07/30/25 16:17 Family History Brother Cancer THROAT Mother Leukemia Sister Breast cancer Surgical History Hx of right cataract extraction Hx of left cataract extraction Hx of eye surgery History of hydrocelectomy Hx of hernia repair Hx of colonoscopy Social History household members: significant other housing: house current occupational status: retired Smoking Status: Former smoker alcohol intake: never substance use type: does not use ROS ROS ED Constitutional Constitutional ED: Reports chills, fever(s) and weight loss; Denies sweats Eyes Eyes: Denies blurry vision or change in vision ENT ENT ED: Denies ear pain, rhinorrhea or sore throat Cardiovascular Cardiovascular: Denies chest pain, orthopnea, palpitations or paroxysmal nocturnal dyspnea Respiratory/Chest Respiratory/Chest: Reports cough; Denies dyspnea, dyspnea on exertion, orthopneaor paroxysmal nocturnal dyspnea Gastrointestinal Gastrointestinal: Reports diarrhea and nausea; Denies abdominal pain or vomiting Genitourinary Genitourinary ED: Reports dysuria; Denies hematuria or urinary frequency Musculoskeletal Musculoskeletal: Denies arthralgias, back pain or myalgias Integumentary Reports other Details: Patient has rosacea ; Denies rash Neurologic Neurologic: Reports weakness; Denies headache(s) or paresthesias Hematologic/Lymphatic Hematologic/Lymphatic: Reports systems reviewed and no addt'l complaints, exceptas documented EXAM Physical Exam Const Vital Signs: 07/30/25 16:17 07/30/25 16:20 07/30/25 17:02 Temperature 100.2 F H 101.0 F H Temperature Source Oral Oral Pulse Rate 117 H 132 H Respiratory Rate 20 H 19 H Respiratory Effort Normal Non-Labored Respiratory Pattern Normal Blood Pressure 130/72 H 128/78 H Blood Pressure Mean 91 94 Pulse Ox 98 97 Oxygen Delivery Method Room Air Room Air 07/30/25 17:12 07/30/25 18:20 Temperature 100.7 F H Temperature Source Oral Pulse Rate 126 H Respiratory Rate 16 Respiratory Effort Respiratory Pattern Blood Pressure 133/81 H Blood Pressure Mean 98 Pulse Ox 98 Oxygen Delivery Method Room Air Room Air Positive well nourished and well developed Constitutional Narrative: Patient has rosacea. He appears ill. He is not alert. He does respond to questions asked. General Appearance ED: well developed and NAD HEENT Reports dry mucous membranes HEENT Narrative: HEENT is remarkable for rosacea otherwise negative. Mouth ED: Yes dry mucous membranes Mouth: dry mucous membranes Eyes PERRL and EOMs intact bilaterally General Eye ED: Negative for pale conjunctiva or scleral icterus Neck no lymphadenopathy, supple and no JVD Chest Wall inspection of chest normal and palpation of chest normal Resp normal respiratory effort and clear to auscultation bilaterally Cardio regular rhythm, S1 normal heart sound, S2 normal heart sound and no murmurs Rate: tachycardic GI normal to inspection, nondistended, normoactive bowel sounds, non-distended and no masses; Negative for hepatosplenomegaly Back/Spine no CVA tenderness Extremity normal to inspection Neuro oriented x3 and CN's II-XII intact bilaterally Sensorium / Orientation: alert Psych mental status grossly normal Skin no rashes or lesions noted, no wounds and skin turgor normal General Skin Exam: Negative for elasticity normal MDM MDM MDM Narrative Medical decision making narrative: Doubt patient is neutropenic since he had chemo 3 days ago and radiation today. He has no definitive source based on history and physical. Will treat for infection of unknown etiology. He was administered Zosyn and vancomycin. Reviewed Dr. Collins's notes. He is receiving radiation therapy by Dr. En Guerin. He had a radiation progress note dated July 28 that was reviewed. 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 History & Record Review Additional record(s) reviewed:: Prior outpatient record and Prior labs Lab Data Attestation: I reviewed the patient's lab results. Lab results narrative: Patient is neutropenic with an absolute neutrophil count of 450. H&H is 10 7 and 31.5. Platelet count is pending. Patient has low white counts dating back to June. H&H is essentially unchanged. Labs: Laboratory Results - last 24 hr 07/30/25 07/30/25 07/30/25 16:04 16:23 18:51 WBC 1.0 L* RBC 3.59 L Hgb 10.7 L Hct 31.5 L MCV 87.7 MCH 29.8 MCHC 34.0 RDW Std Deviation 43.3 RDW Coeff of Macho 13.6 Plt Count TNP MPV TNP Immature Gran % (Auto) 0.000 Neut % (Auto) 45.1 L Lymph % (Auto) 45.1 H [place] % (Auto) 7.8 Eos % (Auto) 0.0 Baso % (Auto) 2.0 H Absolute Neuts (auto) 0.5 L Absolute Lymphs (auto) 0.46 L Nucleated RBC % 0 Diff Path Review February foll PT 13.8 INR 1.0 APTT 30.3 Sodium 133 Potassium 3.4 Chloride 97 L Carbon Dioxide 25.3 Anion Gap 10 BUN 22 H Creatinine 0.81 Estim Creat Clear Calc 69.20 Est GFR (MDRD) Non-Af 88 BUN/Creatinine Ratio 26.7 H Glucose 110 H Lactic Acid < 1.0 Calcium 8.1 Total Bilirubin 0.66 AST 26 ALT 8 Alkaline Phosphatase 58 Total Protein 5.9 Albumin 3.4 Globulin 2.6 Albumin/Globulin Ratio 1.3 Urine Color Straw Urine Clarity Clear Urine pH 7.0 Ur Specific [place] 1.010 Urine Protein Negative Urine Glucose (UA) Normal Urine Ketones 5 H Urine Occult Blood 10 H Urine Nitrite Negative Urine Bilirubin Negative Urine Urobilinogen Normal Ur Leukocyte Esterase Negative Macro urine reveals ketones and occult blood. Negative leukoesterase and nitrites. Radiography Chest X-Ray - ED: 2 View and Read by ED Physician (There are no acute findings i.e. infiltrate, cephalization or effusion. Cardiac silhouette is normal. Cardiac size is normal. Hilum is unremarkable. Osseous structures reveal no obvious acute abnormality.) Diagnostic Testing: Clinical Impression(s) from Imaging Studies Chest X-Ray 07/30/25 18:25 IMPRESSION: No Acute Findings. Reading Location: [facility] EKG Initial EKG: Attestation: I personally reviewed and interpreted this EKG as follows: Interpretation: Sinus Tachycardia (Rate is 129. There are premature atrial complexes noted. MS interval is 158 ms. Cures duration 74 ms. QT duration 116 ms. [place] is normal) Management Discussion w/another healthcare provider: Hospitalist (Spoke with the night hospitalist Dr. Henao who will admit patient to PCU.) Treatment and Re-Evaluation :: Patient received a total of 2 L of normal saline. He was treated with antibiotics. There is no obvious source. 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 What to do if you have Problems For any increased pain, shortness of breath, bleeding, nausea or vomiting, chestpain, or any unexpected problems, contact your Primary Care Provider. Call [facility] ([phone]) or report to the closest Emergency Room. Call 911 if necessary. 07/30/251945 <Electronically signed by Trevor Nguyen MD> Cosigner Signature (if applicable): CC: Dr. Eloina Chi MD ~ Signed [facility] Work Phone: 1(933) 150-921810-13-2025 Progress note Author Simone Collins [facility] Note Date/Time July 26, 2025 9 :38am [facility] [address] [address] OFFICE VISIT Date of Service: 07/26/25 0836 MR#: [id number] Acct: [id number] Name: GLENN PARADA DEV Rep #: [id number] : 1945 From: Simone Collins MD Age/Sex: 80/M [place] [facility] Status: Signed HPI Subjective Date of Service 07/26/25 Chief Complaint F/u for chemotherapy. History of Present Illness 80-year-old man with Parkinson's disease presented with sore throat. He was found to have left tonsillar mass. CT scan of the neck on 05/03/2025 showed lefttonsillar mass 3.2 cm, necrotic level 2 node 1.4 cm and additional nodes in level 2 and 3. He was referred to Dr. Siegel at [facility], had left tonsil biopsy on 05/28/2025, pathology showed Invasive squamous cell carcinoma, HPV positive. Began definitive chemoradiation with carboplatin/paclitaxel on 07/05/25. Comes for C4. Feels well. Fell when he was getting out of bed. [facility] Medical History Encounter for education Wears glasses Cancer Alcohol [...] and no addt'l complaints, except as documented and abnormal movements Psychiatric Psychiatric: Reports systems reviewed and no addt'l complaints, except as documented Endocrine Endocrinology: Reports systems reviewed and no addt'l complaints, except as documented Hematologic/Lymphatic Hematologic/Lymphatic: Reports systems reviewed and no addt'l complaints, exceptas documented Allergic/Immunologic Allergic/Immunologic: Reports systems reviewed and no addt'l complaints, except as documented Intake Vital Signs 06/28/25 15:02 07/26/25 08:39 Height 5 ft 8 in 5 ft 8 in Weight: 67.16 kg BMI 22.5 BP 90/55 L Blood Pressure Location Rt brachial Position Sitting Respiration 18 Pulse 86 Pulse Source Monitor Temp 99 F Temperature Source Temporal Artery Pulse Oximetry (%) 93 Oxygen Delivery Method room air Intake Accompanied by: Is patient in pain?: Yes (sore throat) Pain scale (1-10): 4 Allergies gluten Allergy (Verified 07/28/25 11:36) Abd cramps/diarrhea aripiprazole Adverse Reaction (Verified 07/28/25 11:36) unknown haloperidol Adverse Reaction (Verified 07/28/25 11:36) unknown metoclopramide Adverse Reaction (Verified 07/28/25 11:36) unknown olanzapine Adverse Reaction (Verified 07/28/25 11:36) unknown prochlorperazine Adverse Reaction (Verified 07/28/25 11:36) unknown promethazine Adverse Reaction (Verified 07/28/25 11:36) unknown Medications ?Medication ?Instructions ?Recorded ?Confirmed ?Type levothyroxine 50 mcg tablet 50 mcg PO QDAY 03/05/24 History omeprazole 40 mg capsule,delayed 40 mg PO QDAY 4 07/28/25 History release tamsulosin 0.4 mg capsule 0.4 mg PO BID 03/05/2407/28 History prucalopride 2 mg tablet 2 mg PO DAILY 05/09/2407/28 History (Motegrity) carbidopa ER 25 mg-levodopa 100 mg 1 tab PO .qid 06/1007/28/25 History tablet,extended release fludrocortisone 0.1 mg tablet 0.1 mg PO QDAY 06/17/25 07/28/25 History lidocaine-prilocaine 2.5 %-2.5 % 1 applic topical ONCE PRN port 06/28/25 07/28/25 Rx topical cream access 30 days #30 grams ondansetron 8 mg disintegrating 8 mg PO Q8H PRN nausea and 06/28/25 07/28/25 Rx tablet vomiting #30 tabs tramadol 50 mg tablet 50 mg PO Q6H PRN pain #5 tab s 06/30/25 07/28/25 Rx MAGIC MOUTH WASH (BMX) 180 mL 15 ml PO .qid PRN pain # 180 mL 07/07/25 07/28/25 Rx suspension sodium chloride 1,000 mg soluble 1,000 mg PO QD-QID MS N electrolyte 07/26/25 07/28/25 Rx tablet replenishment #30 tabs guaifenesin 100 mg/5 mL oral 200 mg (10 mL) PO Q4H PRN 07/28/25 07/28/25 Rx liquid (Guaifed (guaifenesin)) congestion #500 mL Have you fallen in the past year?: Yes (fell 07/26/25 AM) Central Venous Access Central Venous Access: Yes Port/PICC: Port Exam Physical Exam Narrative ECOG 1 Const alert, oriented x3 and no apparent distress HEENT normocephalic Eyes conjunctivae normal and no scleral icterus Neck Neck Narrative: +L upper jugular node. Chest Chest Narrative: +Port R IC area. Resp clear to auscultation bilaterally Cardio regular rate, regular rhythm, S1 normal heart sound and S2 normal heart sound GI soft to palpation and non-tender GI Narrative: +PEG tube. no CVA tenderness Back/Spine thoracic and lumbar spine normal to inspection Extremity no clubbing, cyanosis or edema Skin no rashes or lesions noted Neuro oriented x3, CN's II-XII intact bilaterally and moves all extremities Neuro Narrative: gait slow. 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 Started weekly Taxol and Carboplatin on 07/05/2025. Comes for C4. Tolerating therapy. Counts and chemistry reviewed, Ok for therapy. Plan: To proceed with cycle 4 weekly carbo/taxol. 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 (3) Nodule of chest wall: Status: Acute Comment: Hypermetabolic nodule on the left posterior upper chest wall, clinically not palpable. Plan: Will continue managing as stage I oropharyngeal cancer p16 positive, will assessnodule found on PET/CT scan after treatment. (4) Chemotherapy management, encounter for: Status: Acute Comment: Counts and chemistry reviewed, OK for therapy. Plan: To proceed with C4 weekly Taxol/Carboplatin. (5) Hyponatremia: Status: Acute Plan: To do IV hydration with NS. To start Sodium chloride tab 1-4 daily. (6) 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: Status: Acute Plan: To do Sodium bicarb mouthwash regularly. Use Magic mouthwash as prescribed. Orders: Referrals Home Health C10.9 - Malignant neoplasm of oropharynx, unspecified, C44.92 - Squamous cell carcinoma of skin, unspecified, C77.0 - Secondary and unspecified 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, face and neck, E87.1 - Hypo-osmolality and hyponatremia, K12.33 - Oral mucositis (ulcerative) due to radiation, R22.2 - Localized swelling, mass and lump, trunk, Y84.2 - Radiological procedure and radiotherapy as the cause of abnormal reaction of the patient, or of later complication, without mention of misadventure at the time of the procedure, Z51.11 - Encounter for antineoplastic chemotherapy Medications: New sodium chloride 1,000 mg PO QD-QID PRN 30 tabs 2RF electrolyte replenishment Clinical Quality Measures Falls Risk Screening/Assistive Devices Have you fallen in the past year?: Yes (fell 07/26/25 AM) 07/28/25 1700 <Electronically signed by Simone Segovia> Date _ Simone Ojedaer Signature: Date (if applicable) CC: Dr. Eloina Chi MD ~ [facility] Work Phone: 1(191) 391-621210-08-2025 Progress [facility] [address] [place] [address] OFFICE VISIT Date of Service: 07/21/25 1329 MR#: [id number] Acct: [id number] Name: GLENN PARADA DEV Rep #: [id number] : 1945 From: En smallwood DO Age/Sex: 80/M [place] [facility] [place] Status: Signed Intake Vital Signs 07/05/25 11:46 07/19/25 09:57 07/21/25 13:35 Height 5 ft 8 in 5 ft 8 in 5 ft 8 in Weight: 157 lb 2 oz BMI 23.8 BP 118/72 Blood Pressure Location Rt brachial Position Sitting Respiration 16 Pulse 89 Pulse Source Monitor Temp 97.4 F L Temperature Source Temporal Artery Pulse Oximetry (%) 99 Oxygen Delivery Method room air Intake Is patient in pain?: No Allergies gluten Allergy (Verified 07/21/25 13:34) Abd cramps/diarrhea aripiprazole Adverse Reaction (Verified 07/21/25 13:34) unknown haloperidol Adverse Reaction (Verified 07/21/25 13:34) unknown metoclopramide Adverse Reaction (Verified 07/21/25 13:34) unknown olanzapine Adverse Reaction (Verified 07/21/25 13:34) unknown prochlorperazine Adverse Reaction (Verified 07/21/25 13:34) unknown promethazine Adverse Reaction (Verified 07/21/25 13:34) unknown Medications ?Medication ?Instructions ?Recorded ?Confirmed ?Type levothyroxine 50 mcg tablet 50 mcg PO QDAY 03/05/24 History omeprazole 40 mg capsule,delayed 40 mg PO QDAY 4 07/21/25 History release tamsulosin 0.4 mg capsule 0.4 mg PO BID 03/05/2407/21 History prucalopride 2 mg tablet 2 mg PO DAILY 05/09/2407/21 History (Motegrity) carbidopa ER 25 mg-levodopa 100 mg 1 tab PO .qid 06/1007/21/25 History tablet,extended release fludrocortisone 0.1 mg tablet 0.1 mg PO QDAY 06/17/25 07/21/25 History lidocaine-prilocaine 2.5 %-2.5 % 1 applic topical ONCE PRN port 06/28/25 07/21/25 Rx topical cream access 30 days #30 grams ondansetron 8 mg disintegrating 8 mg PO Q8H PRN nausea and 06/28/25 07/21/25 Rx tablet vomiting #30 tabs tramadol 50 mg tablet 50 mg PO Q6H PRN pain #5 tab s 06/30/25 07/21/25 Rx MAGIC MOUTH WASH (BMX) 180 mL 15 ml PO .qid PRN pain # 180 mL 07/07/25 07/21/25 Rx suspension guaifenesin 600 mg tablet, 600 mg PO BID 07/12/2506/07 History extended release 12 hr (Mucinex) Have you fallen in the past year?: No Central Venous Access Central Venous Access: Yes Port/PICC: Port PFSH PFS Medical History Encounter for education Wears glasses Cancer Alcohol [...] Cardiology follow-up encounter Celiac disease Home Medications ?Medication ?Instructions ?Recorded ?Last Taken ?Type levothyroxine 50 mcg tablet 50 mcg PO QDAY 03/05/24 History omeprazole 40 mg capsule,delayed 40 mg PO QDAY 4 06/30/25 History release tamsulosin 0.4 mg capsule 0.4 mg PO BID 03/05/2406/30 History prucalopride 2 mg tablet 2 mg PO DAILY 05/09/2406/30 History (Motegrity) carbidopa ER 25 mg-levodopa 100 mg 1 tab PO .qid 06/1006/30/25 History tablet,extended release fludrocortisone 0.1 mg tablet 0.1 mg PO QDAY 06/17/25 06/30/25 History lidocaine-prilocaine 2.5 %-2.5 % 1 applic topical ONCE PRN port 06/28/25 Unknown Rx topical cream access 30 days #30 grams ondansetron 8 mg disintegrating 8 mg PO Q8H PRN nausea and 06/28/25 Unknown Rx tablet vomiting #30 tabs tramadol 50 mg tablet 50 mg PO Q6H PRN pain #5 tab s 06/30/25 Unknown Rx MAGIC MOUTH WASH (BMX) 180 mL 15 ml PO .qid PRN pain # 180 mL 07/07/25 Unknown Rx suspension guaifenesin 600 mg tablet, 600 mg PO BID 07/12/25 Unkn own History extended release 12 hr (Mucinex) Allergy/AdvReac Type Severity Reaction Status Date / Time gluten Allergy Abd Verified 07/21/25 13:34 cramps/diarrhea aripiprazole AdvReac unknown Verified 07/21/25 13:34 haloperidol AdvReac unknown Verified 07/21/25 13:34 metoclopramide AdvReac unknown Verified 07/21/25 13:34 olanzapine AdvReac unknown Verified 07/21/25 13:34 prochlorperazine AdvReac unknown Verified 07/21/25 13:34 promethazine AdvReac unknown Verified 07/21/25 13:34 Family History Brother Cancer THROAT Mother Leukemia Sister Breast cancer Surgical History Hx of right cataract extraction Hx of left cataract extraction Hx of eye surgery History of hydrocelectomy Hx of hernia repair Hx of colonoscopy Social History household members: significant other housing: house current occupational status: retired Smoking Status: Former smoker alcohol intake: never substance use type: does not use Diagnosis: Glenn Parada is an 80 year-old male diagnosed with 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 Plan: Plan was made to complete definitive chemoradiation consisting of 6996 cGy delivered to the primarytumor in the left tonsillar region and gross adenopathyin the left neck, 5940 cGy delivered to the left neck levels 2-3, and 5412 cGy to the remaining left neck and contralateral neck all in 33 fractions. Treatment Data: Treatment Site: H&N Current total dose/Total dose planned: 2756 cGy / 6996 cGy Fraction number: Chemotherapy: weekly cisplatin Subjective: Pain: 3-5 10 Fatigue: none ENT: mild to moderate mucositis. mild odynophagia, no dysphagia. decreased taste, severe xerostomia Skin: no erythema, rash, desquamation Nutrition/weight: Weight stable. Regular diet by mouth. No supplements, not using TF Rinses: doing baking soda/salt rises. doing green tea rinses Respiratory: no cough, SOB Objective: Weight: 07/07: 159 lbs 7 oz; 07/14: 160 lbs 3 oz, 07/21: 157 lbs 2 oz Physical Exam: Gen: NAD ENT: moderate oropharyngeal mucositis. No thrush or visualized lesions in the oral cavity or oropharynx. Tumor improved Skin: no erythema, rash, desquamation. Labs: 07/19/2025: CBC and CMP unremarkable Assessment & Plan Assessment/Plan (1) Squamous cell carcinoma of oropharynx: PLAN: Plan Assessment: Tolerating treatment well overall.? I reviewed and approved all treatment associated imaging. mucositis, mild pain, MMW, rinses xerostomia, biotene and water Plan: Continue treatment as planned.? I have reviewed potential treatment associated toxicities as well as timing for resolution and management. Skin: Skin care reviewed, continue lotion at least bid Pain: mild to moderate, MMW Rinses: recommended baking soda/salt rinses 4-6/d, green tea rinses 2-3/d Follow up next week or sooner if needed. Thank you for allowing me to participate in the management and care of your patient. If I may answer any questions in the interim, please do not hesitate tocontact me at any time. 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 07/21/25 1352 DO> Date _ [facility]in DO [facility] Signature: Date (if applicable) CC: ~ [facility]10-06-2025 [facility] [address] [place] [address] OFFICE VISIT Date of Service: 07/19/25822 MR#: [id number] Acct: [id number] Name: GLENN PARADA DEV Rep #: [id number] : 1945 From: Simone Collins MD Age/Sex: 80/M [place] [facility] [place] Status: Signed HPI Subjective Date of Service 07/19/25 Chief Complaint F/u for chemotherapy. History of Present Illness 80-year-old man with Parkinson's disease presented with sore throat. He was found to have left tonsillar mass. CT scan of the neck on 05/03/2025 showed lefttonsillar mass 3.2 cm, necrotic level 2 node1.4 cm and additional nodes in level 2 and 3. He was referred to Dr. Siegel at [facility], had left tonsil biopsy on 05/28/2025, pathology showed Invasive squamous cell carcinoma, HPV positive. Began definitive chemoradiation with carboplatin/paclitaxel on 07/05/25. Comes for C3. Feels well. [facility] Medical History Encounter for education Wears glasses Cancer Alcohol [...] never substance use type: does not use Intake Vital Signs 06/28/25 15:02 07/19/25 08:24 Height 5 ft 8 in 5 ft 8 in Weight: 69.598 kg BMI 23.3 BP 100/62 Blood Pressure Location Lt brachial Position Sitting Respiration 18 Pulse 88 Pulse Source Monitor Temp 98.4 F Temperature Source Temporal Artery Pulse Oximetry (%) 96 Oxygen Delivery Method room air Intake Accompanied by: Is patient in pain?: No Allergies gluten Allergy (Verified 07/19/25 08:36) Abd cramps/diarrhea aripiprazole Adverse Reaction (Verified 07/19/25 08:36) unknown haloperidol Adverse Reaction (Verified 07/19/25 08:36) unknown metoclopramide Adverse Reaction (Verified 07/19/25 08:36) unknown olanzapine Adverse Reaction (Verified 07/19/25 08:36) unknown prochlorperazine Adverse Reaction (Verified 07/19/25 08:36) unknown promethazine Adverse Reaction (Verified 07/19/25 08:36) unknown Medications ?Medication ?Instructions ?Recorded ?Confirmed ?Type levothyroxine 50 mcg tablet 50 mcg PO QDAY 03/05/24 History omeprazole 40 mg capsule,delayed 40 mg PO QDAY 4 07/19/25 History release tamsulosin 0.4 mg capsule 0.4 mg PO BID 03/05/2407/19 History prucalopride 2 mg tablet 2 mg PO DAILY 05/09/2407/19 History (Motegrity) carbidopa ER 25 mg-levodopa 100 mg 1 tab PO .qid 06/1007/19/25 History tablet,extended release fludrocortisone 0.1 mg tablet 0.1 mg PO QDAY 06/17/25 07/19/25 History lidocaine-prilocaine 2.5 %-2.5 % 1 applic topical ONCE PRN port 06/28/25 07/19/25 Rx topical cream access 30 days #30 grams ondansetron 8 mg disintegrating 8 mg PO Q8H PRN nausea and 06/28/25 07/19/25 Rx tablet vomiting #30 tabs tramadol 50 mg tablet 50 mg PO Q6H PRN pain #5 tab s 06/30/25 07/19/25 Rx MAGIC MOUTH WASH (BMX) 180 mL 15 ml PO .qid PRN pain # 180 mL 07/07/25 07/19/25 Rx suspension guaifenesin 600 mg tablet, 600 mg PO BID 07/12/2504/07 History extended release 12 hr (Mucinex) Have you fallen in the past year?: No Central Venous Access Central Venous Access: Yes Port/PICC: Port Exam Physical Exam Narrative ECOG 1 Const alert, oriented x3 and no apparent distress HEENT normocephalic Eyes conjunctivae normal and no scleral icterus Neck Neck Narrative: +L upper jugular node. Chest Chest Narrative: +Port R IC area. Resp clear to auscultation bilaterally Cardio regular rate, regular rhythm, S1 normal heart sound and S2 normal heart sound GI soft to palpation and non-tender GI Narrative: +PEG tube. no CVA tenderness Back/Spine thoracic and lumbar spine normal to inspection Extremity no clubbing, cyanosis or edema Skin no rashes or lesions noted Neuro oriented x3, CN's II-XII intact bilaterally and moves all extremities Neuro Narrative: gait slow. 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 Started weekly Taxol and Carboplatin on 07/05/2025. Comes for C3. Tolerating therapy. Counts and chemistry reviewed, Ok for therapy. Plan: To proceed with cycle 3 weekly carbo/taxol. 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 (3) Nodule of chest wall: Status: Acute Comment: Hypermetabolic nodule on the left posterior upper chest wall, clinically not palpable. Plan: Will continue managing as stage I oropharyngeal cancer p16 positive, will assessnodule found on PET/CT scan after treatment. (4) Chemotherapy management, encounter for: Status: Acute Comment: Counts and chemistry reviewed, OK for therapy. Plan: To proceed with C3 weekly Taxol/Carboplatin. Plan Details Follow Up: 1 Week Clinical Quality Measures Falls Risk Screening/Assistive Devices Have you fallen in the past year?: No 07/19/25 0902 D> Date _ Simone Collins MD [facility] Signature: Date (if applicable) CC: Dr. Eloina Chi MD ~ [facility]10-01-2025 [facility] [address] [place] [address] OFFICE VISIT Date of Service: 07/14/25 1328 MR#: [id number] Acct: [id number] Name: GLENN PARADA DEV Rep #: [id number] : 1945 From: En smallwood DO Age/Sex: 80/M [place] [facility] [place] Status: Signed Intake Vital Signs 07/05/25 11:46 07/14/25 13:30 Height 5 ft 8 in 5 ft 8 in Weight: 160 lb 3 oz BMI 24.3 BP 127/69 H Blood Pressure Location Rt brachial Position Sitting Respiration 18 Pulse 86 Pulse Source Monitor Temp 96.8 F L Temperature Source Temporal Artery Pulse Oximetry (%) 96 Oxygen Delivery Method room air Intake Is patient in pain?: No Allergies gluten Allergy (Verified 07/14/25 13:30) Abd cramps/diarrhea aripiprazole Adverse Reaction (Verified 07/14/25 13:30) unknown haloperidol Adverse Reaction (Verified 07/14/25 13:30) unknown metoclopramide Adverse Reaction (Verified 07/14/25 13:30) unknown olanzapine Adverse Reaction (Verified 07/14/25 13:30) unknown prochlorperazine Adverse Reaction (Verified 07/14/25 13:30) unknown promethazine Adverse Reaction (Verified 07/14/25 13:30) unknown Medications ?Medication ?Instructions ?Recorded ?Confirmed ?Type levothyroxine 50 mcg tablet 50 mcg PO QDAY 03/05/24 History omeprazole 40 mg capsule,delayed 40 mg PO QDAY 4 07/14/25 History release tamsulosin 0.4 mg capsule 0.4 mg PO BID 03/05/2407/14 History prucalopride 2 mg tablet 2 mg PO DAILY 05/09/2407/14 History (Motegrity) carbidopa ER 25 mg-levodopa 100 mg 1 tab PO .qid 06/1007/14/25 History tablet,extended release fludrocortisone 0.1 mg tablet 0.1 mg PO QDAY 06/17/25 07/14/25 History lidocaine-prilocaine 2.5 %-2.5 % 1 applic topical ONCE PRN port 06/28/25 07/14/25 Rx topical cream access 30 days #30 grams ondansetron 8 mg disintegrating 8 mg PO Q8H PRN nausea and 06/28/25 07/14/25 Rx tablet vomiting #30 tabs tramadol 50 mg tablet 50 mg PO Q6H PRN pain #5 tab s 06/30/25 07/14/25 Rx MAGIC MOUTH WASH (BMX) 180 mL 15 ml PO .qid PRN pain # 180 mL 07/07/25 07/14/25 Rx suspension guaifenesin 600 mg tablet, 600 mg PO BID 07/12/2511/07 History extended release 12 hr (Mucinex) Have you fallen in the past year?: No PFSH PFSH Medical History Encounter for education Wears glasses Cancer Alcohol [...] Cardiology follow-up encounter Celiac disease Home Medications ?Medication ?Instructions ?Recorded ?Last Taken ?Type levothyroxine 50 mcg tablet 50 mcg PO QDAY 03/05/24 History omeprazole 40 mg capsule,delayed 40 mg PO QDAY 4 06/30/25 History release tamsulosin 0.4 mg capsule 0.4 mg PO BID 03/05/2406/30 History prucalopride 2 mg tablet 2 mg PO DAILY 05/09/2406/30 History (Motegrity) carbidopa ER 25 mg-levodopa 100 mg 1 tab PO .qid 06/1006/30/25 History tablet,extended release fludrocortisone 0.1 mg tablet 0.1 mg PO QDAY 06/17/25 06/30/25 History lidocaine-prilocaine 2.5 %-2.5 % 1 applic topical ONCE PRN port 06/28/25 Unknown Rx topical cream access 30 days #30 grams ondansetron 8 mg disintegrating 8 mg PO Q8H PRN nausea and 06/28/25 Unknown Rx tablet vomiting #30 tabs tramadol 50 mg tablet 50 mg PO Q6H PRN pain #5 tab s 06/30/25 Unknown Rx MAGIC MOUTH WASH (BMX) 180 mL 15 ml PO .qid PRN pain # 180 mL 07/07/25 Unknown Rx suspension guaifenesin 600 mg tablet, 600 mg PO BID 07/12/25 Unkn own History extended release 12 hr (Mucinex) Allergy/AdvReac Type Severity Reaction Status Date / Time gluten Allergy Abd Verified 07/14/25 13:30 cramps/diarrhea aripiprazole AdvReac unknown Verified 07/14/25 13:30 haloperidol AdvReac unknown Verified 07/14/25 13:30 metoclopramide AdvReac unknown Verified 07/14/25 13:30 olanzapine AdvReac unknown Verified 07/14/25 13:30 prochlorperazine AdvReac unknown Verified 07/14/25 13:30 promethazine AdvReac unknown Verified 07/14/25 13:30 Family History Brother Cancer THROAT Mother Leukemia Sister Breast cancer Surgical History Hx of right cataract extraction Hx of left cataract extraction Hx of eye surgery History of hydrocelectomy Hx of hernia repair Hx of colonoscopy Social History household members: significant other housing: house current occupational status: retired Smoking Status: Former smoker alcohol intake: never substance use type: does not use Diagnosis: Glenn Parada is an 80 year-old male diagnosed with 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 Plan: Plan was made to complete definitive chemoradiation consisting of 6996 cGy delivered to the primarytumor in the left tonsillar region and gross adenopathyin the left neck, 5940 cGy delivered to the left neck levels 2-3, and 5412 cGy to the remaining left neck and contralateral neck all in 33 fractions. Treatment Data: Treatment Site: H&N Current total dose/Total dose planned: 1696 cGy / 6996 cGy Fraction number: Chemotherapy: weekly cisplatin Subjective: Pain: 3-5 / 10 Fatigue: none ENT: no mucositis. No odynophagia or dysphagia. decreased taste, no xerostomia Skin: no erythema, rash, desquamation Nutrition/weight: Weight stable. Regular diet by mouth. No supplements, not using TF Rinses: doing baking soda/salt rises. doing green tea rinses Respiratory: no cough, SOB Objective: Weight: 07/07: 159 lbs 7 oz; 07/14: 160 lbs 3 oz Physical Exam: Gen: NAD ENT: no mucositis. No thrush or visualized lesions in the oral cavity or oropharynx. Tumor stable to improved Skin: no erythema, rash, desquamation. Labs: 07/12/2025: CBC and CMP unremarkable Assessment & Plan Assessment/Plan (1) Squamous cell carcinoma of oropharynx: PLAN: Plan Assessment: Tolerating treatment well overall.? I reviewed and approved all treatment associated imaging. Plan: Continue treatment as planned.? I have reviewed potential treatment associated toxicities as well as timing for resolution and management. Skin: Skin care reviewed, continue lotion at least bid Pain: mild to moderate, MMW Rinses: recommended baking soda/salt rinses 4-6/d, green tea rinses 2-3/d Follow up next week or sooner if needed. Thank you for allowing me to participate in the management and care of your patient. If I may answer any questions in the interim, please do not hesitate tocontact me at any time. 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 07/14/25 1409 DO> Date _ En Guerin DO [facility] Signature: Date (if applicable) CC: ~ [facility] [id number] [facility] [address] [place] [address]. [address] [place] [address] OFFICE VISIT Date of Service: 07/12/25 MR#: [id number] Acct: [id number] Name: GLENN PARADA DEV Rep #: [id number] : 1945 Provider: DIVYA Sexton Age/Sex: 80/M Location: [facility] Status: Signed Intake Vital Signs 06/30/25 07:23 07/07/25 14:02 07/12/25 07:59 Height 5 ft 8 in 5 ft 8 in 5 ft 8 in Weight: 156 lb 9 oz BMI 23.8 BP 100/63 Blood Pressure Location Lt brachial Position Sitting Respiration 18 Pulse 102 H Pulse Source Monitor Temp 98.4 F Pulse Oximetry (%) 96 Oxygen Delivery Method room air Intake Visit Reasons: SUTURE REMOVAL S/P PORT PLACEMENT 06-30 Chief Complaint: suture removal s/p port placement 06/30 Is patient in pain?: No Allergies gluten Allergy (Verified 07/12/25 13:39) Abd cramps/diarrhea aripiprazole Adverse Reaction (Verified 07/12/25 13:39) unknown haloperidol Adverse Reaction (Verified 07/12/25 13:39) unknown metoclopramide Adverse Reaction (Verified 07/12/25 13:39) unknown olanzapine Adverse Reaction (Verified 07/12/25 13:39) unknown prochlorperazine Adverse Reaction (Verified 07/12/25 13:39) unknown promethazine Adverse Reaction (Verified 07/12/25 13:39) unknown Medications ?Medication ?Instructions ?Recorded ?Confirmed ?Type levothyroxine 50 mcg tablet 50 mcg PO QDAY 03/05/24 History omeprazole 40 mg capsule,delayed 40 mg PO QDAY 4 07/12/25 History release tamsulosin 0.4 mg capsule 0.4 mg PO BID 03/05/2407/12 History prucalopride 2 mg tablet 2 mg PO DAILY 05/09/2407/12 History (Motegrity) carbidopa ER 25 mg-levodopa 100 mg 1 tab PO .qid 06/1007/12/25 History tablet,extended release fludrocortisone 0.1 mg tablet 0.1 mg PO QDAY 06/17/25 07/12/25 History lidocaine-prilocaine 2.5 %-2.5 % 1 applic topical ONCE PRN port 06/28/25 07/12/25 Rx topical cream access 30 days #30 grams ondansetron 8 mg disintegrating 8 mg PO Q8H PRN nausea and 06/28/25 07/12/25 Rx tablet vomiting #30 tabs tramadol 50 mg tablet 50 mg PO Q6H PRN pain #5 tab s 06/30/25 07/12/25 Rx MAGIC MOUTH WASH (BMX) 180 mL 15 ml PO .qid PRN pain # 180 mL 07/07/25 07/12/25 Rx suspension guaifenesin 600 mg tablet, 600 mg PO BID 07/12/2506/15 History extended release 12 hr (Mucinex) Have you fallen in the past year?: No Subjective Details: Patient is an 80 y/o M I am following s/p right IJ port placement and EGD with PEG tube placement by Dr. Ng on 06/30/25. Patient tolerated the procedure well. He notes no concerns with the port.Patient's spouse notes a little drainage surrounding the PEG tube. She flushes the tube daily. She changes the dressing daily and turns the hub of the PEG tube. He continues to eat and drink by mouth. Objective Details: Right chest- port intact. Incision c/d/i. No erythema or infection noted. All sutures were removed. Abdomen- PEG tube intact. There is a small amount of yellowish drainage. Slight redness under the hub. Non tender. No signs of infection. Drain dressing was applied and secured with tape. Coding Level of Care Code Global Post Op Diagnoses Port-A-Cath in place Z95.828 S/P percutaneous endoscopic gastrostomy (PEG) tube placement Z93.1 [facility] Medical History Encounter for education Wears glasses Cancer Alcohol [...] never substance use type: does not use Assessment and Plan (No Qualifiers) Assessment and Plan (1) Port-A-Cath in place: Status: Acute (2) S/P percutaneous endoscopic gastrostomy (PEG) tube placement: Status: Acute Plan Recommend leaving port incision open to air May continue to keep the PEG tube covered Continue to observe the fold near the PEG tube to be sure there is no skin breakdown Follow-up as needed 07/12/25 1442 th [facility] [place] Date _ Elizabeth GARCIAS PA-C [facility] Signature: Date (if applicable) CC: Dr. 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 He was found to have left tonsillar mass. CT scan of the neck on 05/03/2025 showed lefttonsillar mass 3.2 cm, necrotic level 2 node1.4 cm and additional nodes in level 2 and 3. He was referred to Dr. Siegel at [facility], had left tonsil biopsy on 05/28/2025, pathology showed Invasive squamous cell carcinoma, HPV positive. Began definitive chemoradiation with carboplatin/paclitaxel on 07/05/25. Interval History The patient is presenting to clinic accompanied by spouse for an evaluation anticipating he will begin cycle 2 carboplatin/taxol. Still taking PO nutrition, estimates PO fluid intake as 64 oz/day. Flushing PEGwith 60 ml daily. Denies throat pain. + Dizziness with positional changes. Chronic constipation, LBM 07/09/25. Takes senna/docusate sodium and miralax daily and motegrity as prescribed by GI. Specifically denies fever/chills, headache, CP, palpitations, cough, SOB, abd pain, N/V, numbness/tingling, and swelling of his extremities. [facility] Medical History Encounter for education Wears glasses Cancer Alcohol [...] in the interval HPI Intake Vital Signs 06/28/25 15:02 07/12/25 07:53 07/12/25 07:59 Height 5 ft 8 in 5 ft 8 in 5 ft 8 in Weight: 156 lb 9 oz BMI 23.8 BP 100/63 Blood Pressure Location Lt brachial Position Sitting Respiration 18 Pulse 102 H Pulse Source Monitor Temp 98.4 F Temperature Source Temporal Artery Pulse Oximetry (%) 96 Oxygen Delivery Method room air Intake Is patient in pain?: Yes Allergies gluten Allergy (Verified 07/12/25 07:58) Abd cramps/diarrhea aripiprazole Adverse Reaction (Verified 07/12/25 07:58) unknown haloperidol Adverse Reaction (Verified 07/12/25 07:58) unknown metoclopramide Adverse Reaction (Verified 07/12/25 07:58) unknown olanzapine Adverse Reaction (Verified 07/12/25 07:58) unknown prochlorperazine Adverse Reaction (Verified 07/12/25 07:58) unknown promethazine Adverse Reaction (Verified 07/12/25 07:58) unknown Medications ?Medication ?Instructions ?Recorded ?Confirmed ?Type levothyroxine 50 mcg tablet 50 mcg PO QDAY 03/05/24 History omeprazole 40 mg capsule,delayed 40 mg PO QDAY 4 07/07/25 History release tamsulosin 0.4 mg capsule 0.4 mg PO BID 03/05/2407/07 History prucalopride 2 mg tablet 2 mg PO DAILY 05/09/2407/07 History (Motegrity) carbidopa ER 25 mg-levodopa 100 mg 1 tab PO .qid 06/1007/07/25 History tablet,extended release fludrocortisone 0.1 mg tablet 0.1 mg PO QDAY 06/17/25 07/07/25 History lidocaine-prilocaine 2.5 %-2.5 % 1 applic topical ONCE PRN port 06/28/25 07/07/25 Rx topical cream access 30 days #30 grams ondansetron 8 mg disintegrating 8 mg PO Q8H PRN nausea and 06/28/25 07/07/25 Rx tablet vomiting #30 tabs tramadol 50 mg tablet 50 mg PO Q6H PRN pain #5 tab s 06/30/25 07/07/25 Rx MAGIC MOUTH WASH (BMX) 180 mL 15 ml PO .qid PRN pain # 180 mL 07/07/25 07/07/25 Rx suspension guaifenesin 600 mg tablet, 600 mg PO BID 07/12/2506/15 History extended release 12 hr (Mucinex) Have you fallen in the past year?: No Central Venous Access Central Venous Access: Yes Port/PICC: Port Laboratory Tests 07/12/25 07:42 WBC 4.8 Hgb 11.3 L Hct 32.6 L Plt Count 216 Absolute Neuts (auto) 3.1 Sodium 134 Potassium 3.6 Chloride 102 Carbon Dioxide 23.0 BUN 11 Creatinine 0.82 Glucose 163 H Calcium 8.4 Total Bilirubin 0.48 AST 21 ALT < 5 Alkaline Phosphatase 66 Albumin 3.4 Exam Physical Exam Narrative ECOG 1 Const alert, oriented x3 and no apparent distress HEENT normocephalic Eyes conjunctivae normal and no scleral icterus Neck Neck Narrative: +L upper jugular node. Chest palpation of breasts normal Resp clear to auscultation bilaterally Cardio regular rate, regular rhythm, S1 normal heart sound and S2 normal heart sound GI soft to palpation and non-tender no CVA tenderness Back/Spine thoracic and lumbar spine normal to inspection Extremity no clubbing, cyanosis or edema Skin no rashes or lesions noted Neuro oriented x3, CN's II-XII intact bilaterally and moves all extremities Neuro Narrative: gait slow. 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 Counts and chemistry reviewed, Ok for therapy. Plan: proceed with cycle 2 carbo/taxol. 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 Plan: Will continue managing as stage I oropharyngeal cancer p16 positive, will assessnodule found on PET/CT scan after treatment. (4) Chemotherapy management, encounter for: Status: Acute Comment: Counts and chemistry reviewed, OK for therapy. Clinical Quality Measures Falls Risk Screening/Assistive Devices Have you fallen in the past year?: No 07/12/25 0950 h CERAMIC TILE INSTALLATION HELPER CERAMIC TILE INSTALLATION HELPER-C> Date _ Jayashree Anderson CERAMIC TILE INSTALLATION HELPER CERAMIC TILE INSTALLATION HELPER-C Cosigner Signature: Date (if applicable) CC: ~ [facility]09-25-2025 Procedure note [facility] Speech Pathology [address] [place] [address] Modified Barium Swallow Study MR#: [id number] Acct: [id number] Name: GLENN PARADA DEV Rep #:[id number] : 1945 80 From: Augusta Llamas, [facility]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 He is planned for chemoradiation therapy, which is plannedto begin 07/05/2025. UGI endoscopy 06/30/25 for PEG placement revealing irregular Z-line, gastritis, and small hiatal hernia. Dysphagia Hx: Minimal pain in the back of his tongue at all times; otherwise, noodynophagia. Mild hypogeusia and hx of anosmia. Per , pt is more hoarse thanin the past. Pt consumes Regular textures / Thin liquids. Pt denies sensation ofretention or difficulty swallowing food/drink. , Janel,reports some coughing when drinking large volumes, especially if drinking quickly prior to taking PD medication. BSE in December of 2024 revealed excrescence in back of throat and recommended ENT consult, which began his cancer work up above. BSE revealed mild oropharyngeal dysphagia and recommended Regular textures / Thin liquids w/ the following compensatory strategies: Small bites/sips, Slow rate, Sips one at a time, Sit upright during and 30 min after po intake. He was recommended for this MBSS today to further assess risk for aspiration and capture baseline swallow function prior to completion of chemoradiation treatment, which began 07/05/2025. Other PMH: Parkinson's disease (managed w/ medication), Alcohol use, Thyroid disease, DVT, Orthostatic hypotension, Syncope, Hx of diverticulitis, Gastric reflux, Hx of diverticulitis, Former smoker,Celiac disease - See EMR for full PMH. 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 He lives at home w/ his . Current Diet Ordered: Regular textures / Thin liquids Respiratory Status: Oxygenating on Room Air Penetration-Aspiration Scale Penetration-Aspiration Scale: OBJECTIVE ASSESSMENT OF SWALLOW FUNCTION (QUANTITATIVE ? PER TRIAL): PENETRATION / ASPIRATION SCALE (ORDAZ): 1 = does not enter airway 2 = enters airway/above vocal folds/ejected 3 = enters airway/above vocal folds/not ejected 4 = enters airway/contacts vocal folds/ejected 5 = enters airway/contacts vocal folds/not ejected 6 = enters airway/below vocal folds/ejected 7 = enters airway/below vocal folds/not ejected despite effort 8 = enters airway/below vocal folds/no effort VIDEOFLOROSCOPIC SCALE SCORE (ORDAZ): Grade I = aspiration of material that has penetrated into the laryngeal vestibule, intact cough reflex Grade II = aspiration < 10 % of the bolus, intact cough reflex Grade III = aspiration of < 10 % of the bolus, reduced cough reflex or aspiration of > 10 % of the bolus, intact cough reflex Grade IV = aspiration of > 10 % of the bolus, reduced cough reflex Penetration-Aspiration Scale Score Thin Liquid via teaspoon: Result: 1= does not enter airway Thin Liquid via teaspoon Trial 2: Result: 3= enters airways/above vocal folds/not ejected Thin Liquid via small single sip: cup: Result: 8= enters airway/below vocal folds/no effort Comment: Cued cough 2X and throat clear 2X to attempt ejecting barium, which was somewhateffective. [place] Thick Liquid via large single sip: cup: Result: 1= does not enter airway Pudding via teaspoon: Result: 1= does not enter airway Comment: Esophageal screen - Mild retention in the lower esophagus. Potato Chip (GF) coated in pudding: Result: 1= does not enter airway Thin Liquid via small single sip: cup Effortful swallow: Result: 1= does not enter airway Thin Liquid via small single sip: cup Chin tuck: Result: 2= enter airway/above vocal folds/ejected Comment: Trace post prandial laryngeal penetration before the trial, likely of residues from earlier trials. Thin Liquid via single sip: straw Chin tuck: Result: 3= enters airways/above vocal folds/not ejected Oral Phase Labial Seal: Interlabial escape, no progression to anterior lip Tongue Control During Bolus Hold: Posterior escape of less than half of bolus Bolus Preparation/Mastication: Slow prolonged chewing/mashing with complete recollection Bolus Transport/Lingual Motion: Slowed tongue motion Oral Residue: Residue collection on oral structures Pharyngeal Phase Initiation of Pharyngeal Swallow: Bolus head at posterior laryngeal surgace of epiglottis Soft Palate Elevation: Trace column of contrast/air between soft palate and pharyngeal wall Laryngeal Elevation: Partial superior movement thyroid cart/partial apprx aryt- epig petiole Anterior Hyoid Excursion: Partial anterior movement Epiglottic Movement: Complete inversion Laryngeal Vestibule Closure at Height of Swallow: Incomplete; narrow column of air/contrast in laryngeal vestibule Pharyngeal Stripping Wave: Present - diminished Pharyngoesophageal Segment Opening: Complete distension and complete duration; no obstruction of flow Tongue Base Retraction: Wide column of contrast between tongue base & post. pharyngeal wall Pharyngeal Residue: Collection of residue within or on pharyngeal structures Esophageal Phase Esophageal Clearance: Esophageal retention Diagnosis/Impression Diagnosis: Mild-moderate oropharyngeal dysphagia R13.12 MBS Impressions: The oral phase is primarily marked by... -Slowed, but complete mastication. -Decreased bolus control w/ premature posterior loss to the posterior surface ofthe epiglottis w/ thin by tsp. -Slowed tongue motion for A-P transport. -Mild oral residue of potato chip, which cleared w/ a second swallow. The pharyngeal phase is primarily marked by... -Delayed swallow onset. -Decreased pharyngeal motility due to decreased TB retraction and pharyngeal stripping wave w/ mild-moderate pharyngeal residue of potato chip, which clearedw/ a second swallow. -Decreased airway closure due to decreased laryngeal elevation, anterior hyoid excursion, and inconsistent epiglottic inversion. -Silent aspiration of thin liquids via cup. Effortful swallow was most effectivein decreasing risk for aspiration. The esophageal phase is primarily marked by... -Mild retention of pudding in the lower esophagus. Recommendations Diet: Regular Textures and Thin Liquids Comment: Medications whole in puree, Intermittent cough and re-swallow Compensatory Strategies: Small Bites, Small Sips (Effortful/Hard Swallows, Sips 1 at a Time), Slow Rate, Multiple Swallows (Double Swallows), Alternate bites/solids and sips/liquids, Sitting upright and Remain sitting upright for 30minutes after PO intake Recommend Repeat Modified Barium Swallow: Yes Comment: Repeat MBSS 3 months after completion of chemoradiation to monitor swallow function as the patient is at risk for worsening dysphagia and aspiration risk s/p chemoradiation treatment. Need for Skilled Speech Therapy Services: Yes Comment: Continue per OP ST POC. Education Completed: 1. Described result of evaluation., 2. Pt understands evaluation & agrees with goals and treatment plan., 4. Family/caregivers understand evaluation & agree w/ goals & tx plan. and 7. Pt requires further education on strategies & risks. Status Active ST Patient: Active Contact Information [facility] Speech Therapy:: Augusta Ashford M.A. CCC-CONTRACT ENGINEER Speech-Language Pathologist [facility] [address] [place] [address] [email or web address] [phone] 07/08/25 1442 Mere CCC-CONTRACT ENGINEER> Date/Time Augusta Ashford M.A., CCC-CONTRACT ENGINEER Co-Signature Required for all Medicare patients Date/Time Co-Signature CC: ~ [facility]09-24-2025 Progress [facility] [address] [facility] [place] [address] OFFICE VISIT Date of Service: 07/07/25 1359 MR#: [id number] Acct: [id number] Name: GLENN PARADA Rep #: [id number] : 1945 From: En smallwood DO Age/Sex: 80/M Location[place] [facility] [place] Status: Signed Intake Vital Signs 07/05/25 11:46 07/07/25 14:02 Height 5 ft 8 in 5 ft 8 in Weight: 159 lb 7 oz BMI 24.2 BP 116/71 Blood Pressure Location Lt brachial Position Sitting Respiration 14 Pulse 83 Pulse Source Monitor Temp 97.3 F L Temperature Source Temporal Artery Pulse Oximetry (%) 97 Oxygen Delivery Method room air Intake Is patient in pain?: No Allergies gluten Allergy (Verified 07/07/25 14:02) Abd cramps/diarrhea aripiprazole Adverse Reaction (Verified 07/07/25 14:02) unknown haloperidol Adverse Reaction (Verified 07/07/25 14:02) unknown metoclopramide Adverse Reaction (Verified 07/07/25 14:02) unknown olanzapine Adverse Reaction (Verified 07/07/25 14:02) unknown prochlorperazine Adverse Reaction (Verified 07/07/25 14:02) unknown promethazine Adverse Reaction (Verified 07/07/25 14:02) unknown Medications ?Medication ?Instructions ?Recorded ?Confirmed ?Type levothyroxine 50 mcg tablet 50 mcg PO QDAY 03/05/24 History omeprazole 40 mg capsule,delayed 40 mg PO QDAY 4 07/07/25 History release tamsulosin 0.4 mg capsule 0.4 mg PO BID 03/05/2407/07 History prucalopride 2 mg tablet 2 mg PO DAILY 05/09/2407/07 History (Motegrity) carbidopa ER 25 mg-levodopa 100 mg 1 tab PO .qid 06/1007/07/25 History tablet,extended release fludrocortisone 0.1 mg tablet 0.1 mg PO QDAY 06/17/25 07/07/25 History lidocaine-prilocaine 2.5 %-2.5 % 1 applic topical ONCE PRN port 06/28/25 07/07/25 Rx topical cream access 30 days #30 grams ondansetron 8 mg disintegrating 8 mg PO Q8H PRN nausea and 06/28/25 07/07/25 Rx tablet vomiting #30 tabs tramadol 50 mg tablet 50 mg PO Q6H PRN pain #5 tab s 06/30/25 07/07/25 Rx MAGIC MOUTH WASH (BMX) 180 mL 15 ml PO .qid PRN pain # 180 mL 07/07/25 07/07/25 Rx suspension Have you fallen in the past year?: No Central Venous Access Central Venous Access: Yes Port/PICC: Port PFSH [facility] Medical History Encounter for education Wears glasses Cancer Alcohol [...] Cardiology follow-up encounter Celiac disease Home Medications ?Medication ?Instructions ?Recorded ?Last Taken ?Type levothyroxine 50 mcg tablet 50 mcg PO QDAY 03/05/24 History omeprazole 40 mg capsule,delayed 40 mg PO QDAY 4 06/30/25 History release tamsulosin 0.4 mg capsule 0.4 mg PO BID 03/05/2406/30 History prucalopride 2 mg tablet 2 mg PO DAILY 05/09/2406/30 History (Motegrity) carbidopa ER 25 mg-levodopa 100 mg 1 tab PO .qid 06/1006/30/25 History tablet,extended release fludrocortisone 0.1 mg tablet 0.1 mg PO QDAY 06/17/25 06/30/25 History lidocaine-prilocaine 2.5 %-2.5 % 1 applic topical ONCE PRN port 06/28/25 Unknown Rx topical cream access 30 days #30 grams ondansetron 8 mg disintegrating 8 mg PO Q8H PRN nausea and 06/28/25 Unknown Rx tablet vomiting #30 tabs tramadol 50 mg tablet 50 mg PO Q6H PRN pain #5 tab s 06/30/25 Unknown Rx MAGIC MOUTH WASH (BMX) 180 mL 15 ml PO .qid PRN pain # 180 mL 07/07/25 Unknown Rx suspension Allergy/AdvReac Type Severity Reaction Status Date / Time gluten Allergy Abd Verified 07/07/25 14:02 cramps/diarrhea aripiprazole AdvReac unknown Verified 07/07/25 14:02 haloperidol AdvReac unknown Verified 07/07/25 14:02 metoclopramide AdvReac unknown Verified 07/07/25 14:02 olanzapine AdvReac unknown Verified 07/07/25 14:02 prochlorperazine AdvReac unknown Verified 07/07/25 14:02 promethazine AdvReac unknown Verified 07/07/25 14:02 Family History Brother Cancer THROAT Mother Leukemia Sister Breast cancer Surgical History Hx of right cataract extraction Hx of left cataract extraction Hx of eye surgery History of hydrocelectomy Hx of hernia repair Hx of colonoscopy Social History household members: significant other housing: house current occupational status: retired Smoking Status: Former smoker alcohol intake: never substance use type: does not use Diagnosis: Glenn Parada is an 80 year-old male diagnosed with 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 Plan: Plan was made to complete definitive chemoradiation consisting of 6996 cGy delivered to the primarytumor in the left tonsillar region and gross adenopathyin the left neck, 5940 cGy delivered to the left neck levels 2-3, and 5412 cGy to the remaining left neck and contralateral neck all in 33 fractions. Treatment Data: Treatment Site: H&N Current total dose/Total dose planned: 636 cGy / 6996 cGy Fraction number: Chemotherapy: weekly cisplatin Subjective: Pain: 3-5 / 10 Fatigue: none ENT: no mucositis. No odynophagia or dysphagia. Normal taste, no xerostomia Skin: no erythema, rash, desquamation Nutrition/weight: Weight stable. Regular diet by mouth. No supplements, not using TF Rinses: doing baking soda/salt rises. doing green tea rinses Respiratory: no cough, SOB Objective: Weight: 159 lbs 7 oz Physical Exam: Gen: NAD ENT: no mucositis. No thrush or visualized lesions in the oral cavity or oropharynx. Skin: no erythema, rash, desquamation. Labs: 07/05/2025: CBC and CMP unremarkable Assessment & Plan Assessment/Plan (1) Squamous cell carcinoma of oropharynx: PLAN: Plan Assessment: Tolerating treatment well overall.? I reviewed and approved all treatment associated imaging. No treatment associated toxicities are noted at this time Plan: Continue treatment as planned.? I have reviewed potential treatment associated toxicities as well as timing for resolution and management. Skin: Skin care reviewed, continue lotion at least bid Pain: mild to moderate, MMW Rinses: recommended baking soda/salt rinses 4-6/d, green tea rinses 2-3/d Follow up next week or sooner if needed. Thank you for allowing me to participate in the management and care of your patient. If I may answer any questions in the interim, please do not hesitate tocontact me at any time. 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 Simone Collins MD on 07/05/25 at 0906 Subjective Date of Service 07/05/25 Chief Complaint F/u for Chemotherapy - Carboplatin/Paclitaxel weekly History of Present Illness 80-year-old man with Parkinson's disease presented with sore throat. He was found to have left tonsillar mass. CT scan of the neck on 05/03/2025 showed lefttonsillar mass 3.2 cm, necrotic level 2 node1.4 cm and additional nodes in level 2 and 3. He was referred to Dr. Siegel at [facility], had left tonsil biopsy on 05/28/2025, pathology showed Invasive squamous cell carcinoma, HPV positive. Chemoradiation therapy was suggested as definitive treatment. He was diagnosed with Left Invasive tonsillarcarcinoma, p16 positive, Stage I(cT2 cN1M0) Come in to chemotherapy-Taxol/Carboplatin weekly with Radiation therapy. R IC area Port was placed on 06/30/2025. PEG tube was placed on 06/30/2025. Interval History 80-year-old man with Parkinson's disease presented with sore throat. He was found to have left tonsillar mass. CT scan of the neck on 05/03/2025 showed lefttonsillar mass 3.2 cm, necrotic level 2 node1.4 cm and additional nodes in level 2 and 3. He was referred to Dr. Siegel at [facility], had left tonsil biopsy on 05/28/2025, pathology showed Invasive squamous cell carcinoma, HPV positive. Chemoradiation therapy was suggested as definitive treatment. Physical Exam Narrative ECOG 1 Const alert, oriented x3 and no apparent distress HEENT normocephalic Eyes General Eye: normal appearance of both eyes Chest Chest Narrative: + Port R IC area. Resp clear to auscultation bilaterally Cardio regular rate, regular rhythm, S1 normal heart sound and S2 normal heart sound GI GI Narrative: + PEG tube Extremity no clubbing, cyanosis or edema Skin no rashes or lesions noted Neuro oriented x3, CN's II-XII intact bilaterally and moves all extremities Psych mental status grossly normal Attitude: calm and engaged Assessment and Plan Assessment and Plan (1) Squamous cell carcinoma of oropharynx: Status: Acute Comment: Invasive tonsillar carcinoma, p16 positive, Stage I(cT2 cN1 M0) Comes to start definitive treatment with combined chemotherapy and radiation therapy. Counts and chemistry reviewed, Ok for therapy. Plan: To proceed with C1 weekly carboplatin and Taxol today. 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 Plan: Will continue managing as stage I oropharyngeal cancer p16 positive, will assessnodule found on PET/CT scan after treatment. (4) Chemotherapy management, encounter for: Status: Acute Comment: Counts and chemistry reviewed, OK for therapy. Plan: To proceed with C1 Taxol/Carboplatin weekly. 07/05/25 0906 D> Date _ Simone Collins MD cc: Dr. Eloina Chi MD ~* Signed HPI Subjective Date of Service 07/05/25 Chief Complaint F/u for Chemotherapy - Carboplatin/Paclitaxel weekly History of Present Illness 80-year-old man with Parkinson's disease presented with sore throat. He was found to have left tonsillar mass. CT scan of the neck on 05/03/2025 showed lefttonsillar mass 3.2 cm, necrotic level 2 node1.4 cm and additional nodes in level 2 and 3. He was referred to Dr. Siegel at [facility], had left tonsil biopsy on 05/28/2025, pathology showed Invasive squamous cell carcinoma, HPV positive. Chemoradiation therapy was suggested as definitive treatment. [facility] Medical History Encounter for education Wears glasses Cancer Alcohol [...] never substance use type: does not use Intake Vital Signs 06/22/25 08:24 07/05/25 08:37 Height 5 ft 8 in 5 ft 8 in Weight: 70.562 kg BMI 23.6 BP 106/70 Blood Pressure Location Lt brachial Position Sitting Respiration 16 Pulse 87 Pulse Source Monitor Temp 98.3 F Temperature Source Temporal Artery Pulse Oximetry (%) 95 Oxygen Delivery Method room air Intake Is patient in pain?: No Allergies gluten Allergy (Verified 07/05/25 08:39) Abd cramps/diarrhea aripiprazole Adverse Reaction (Verified 07/05/25 08:39) unknown haloperidol Adverse Reaction (Verified 07/05/25 08:39) unknown metoclopramide Adverse Reaction (Verified 07/05/25 08:39) unknown olanzapine Adverse Reaction (Verified 07/05/25 08:39) unknown prochlorperazine Adverse Reaction (Verified 07/05/25 08:39) unknown promethazine Adverse Reaction (Verified 07/05/25 08:39) unknown Medications ?Medication ?Instructions ?Recorded ?Confirmed ?Type levothyroxine 50 mcg tablet 50 mcg PO QDAY 03/05/24 History omeprazole 40 mg capsule,delayed 40 mg PO QDAY 4 07/05/25 History release tamsulosin 0.4 mg capsule 0.4 mg PO BID 03/05/2407/05 History prucalopride 2 mg tablet 2 mg PO DAILY 05/09/2407/05 History (Motegrity) carbidopa ER 25 mg-levodopa 100 mg 1 tab PO .qid 06/1007/05/25 History tablet,extended release fludrocortisone 0.1 mg tablet 0.1 mg PO QDAY 06/17/25 07/05/25 History lidocaine-prilocaine 2.5 %-2.5 % 1 applic topical ONCE PRN port 06/28/25 07/05/25 Rx topical cream access 30 days #30 grams ondansetron 8 mg disintegrating 8 mg PO Q8H PRN nausea and 06/28/25 07/05/25 Rx tablet vomiting #30 tabs tramadol 50 mg tablet 50 mg PO Q6H PRN pain #5 tab s 06/30/25 07/05/25 Rx Have you fallen in the past year?: No Central Venous Access Central Venous Access: Yes Port/PICC: Port Coding Level of Care Code Off vis,est,level 4 Exam Problem Focused Clinical Quality Measures Falls Risk Screening/Assistive Devices Have you fallen in the past year?: No 07/05/25 0854 D> Date _ Simone Collins MD Cosigner Signature: Date (if applicable) CC: Dr. Eloina Chi MD ~ [facility]09-17-2025 Radiology Diagnostic study note [facility] Imaging Services [address] [place], [place] [address] Chest 1 View (Portable) MR#: [id number] Acct: [id number] Name: GLENN PARADA DEV Rep #: [id number] : 1945 M 80 From: Spencer Sutton MD PCP: Dr. Eloina Chi MD Status: REG SD C Study:Chest 1 View (Portable) Date of Exam: 06/30/25 Exam# [id number] Ordering Dr: Kalyn Ng MD PROCEDURE: CHEST 1 VIEW (PORTABLE) 06/30/2025 REASON FOR EXAM: PORT Port placement. TECHNIQUE: Frontal view of the chest. COMPARISON: Prior study dated May 09, 2024. FINDINGS: Hardware: A right-sided port a catheter is seen with the tip in the right atrium. Heart: The heart is nonenlarged. Lungs: No acute infiltrate is seen. Bones: Degenerative changes are identified within the thoracic spine. Other: RAD/Chest 1 View (Portable) IMPRESSION: The tip of the right-sided port a catheter is in the right atrium. No evidence of pneumothorax. Reading Location: [place] [address] CC: Dr. Eloina Chi MD; Dr. Kalyn Ng MD ~ [facility] Out: Signed [facility]09-17-2025 History and physical note Author Kalyn Ng [facility] Note Date/Time June 30, 2025 8:15am [facility] Medical Records Department [address] [place] [address] History & Physical Exam 06/30/2518 MR#: [id number] Acct: [id number] Name: GLENN PARADA DEV Rep #:[id number] : 1945 80 From: Kalyn Ng MD PCP: Dr. Eloina Chi MD Status:REG SD C Location: [place] [address] History and Physical Date of Admission: 06/30/25 Date of Service: 06/21/25 MR#: [id number] Acct: [id number] Name: GLENN PARADA DEV Rep #: [id number] : 1945 Provider: Dr. Kalyn Ng MD Age/Sex: 80/M Location: [facility] Status: Signed Intake Vital Signs 06/17/2513:42 06/18/2510:30 06/21/2513:38 Height 5 ft 8 in 5 ft [...] tablet 50 mcg PO QDAY 03/05/24 06/21/25 History omeprazole 40 mg capsule,delayed 40 mg PO QDAY 03/05/24 06/21/25 History release tamsulosin 0.4 mg capsule 0.4 mg PO BID 03/05/24 06/21/25 History prucalopride 2 mg tablet 2 mg PO DAILY 05/09/24 06/21/25 History (Motegrity) carbidopa ER 25 mg-levodopa 100 mg 1 tab PO .qid 06/10/25 06/21/25 History tablet,extended release peg 3350-electrolytes 236 ml PO PRN constipation 06/10/25 06/21/25 History gram-22.74 gram-6.74 gram-5.86 gram solution fludrocortisone 0.1 mg tablet 0.1 mg PO QDAY 06/17/25 06/21/25 History Have you fallen in the past year?: No PFS Medical History (Updated 06/21/25 @ 13:37 by [...] healthy appearing, comfortable and no acute distress HENMT Head: normocephalic and atraumatic Neck Neck: supple [...] no further questions. Kalyn Ng M.D. Pager: [phone] [facility] [address] [place] [address], [address] [place] [address] Office: 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 Eloina Chi MD; Dr. Kalyn Ng MD~ Signed ADDENDUM by Dr. Kalyn Ng MD on 06/30/25 at 0815 Addendum I have examined the patient the following changes are noted: Patient's initial systolic blood pressure was 77 that went up to 82 patient will be getting IV fluids before procedure. Patient's states that he is never over 100 systolic. 06/30/25 0815<Electronically signed by Kalyn Ng MD> Cosigner Signature (if applicable): cc: Dr. Eloina Chi MD; Dr. Kalyn Ng MD ~* Signed [facility] Work Phone: [phone]) 409-455609-17-2025 Procedure note [facility] Medical Records Department [address] [place] [address] EGD Report MR#: [id number] Acct: [id number] Name: GLENN PARADA DEV Rep #:[id number] : 1945 80 From: Kalyn Ng MD PCP: Dr. 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 Complications: No immediate complications. Procedure: Pre-Anesthesia Assessment: - Prior to the procedure, a History and Physical was performed, and patient medications and allergies were reviewed. The patient's tolerance of previous anesthesia was also reviewed. The risks and benefits of the procedure and the sedation options and risks were discussed with the patient. All questions were answered, and informed consent was obtained. Prior Anticoagulants: The patient has taken no anticoagulant or antiplatelet agents. ASA Grade Assessment: Per anesthesia. After reviewing the risks and benefits, the patient was deemed in satisfactory condition to undergo the procedure. After obtaining informed consent, the endoscope was passed under direct vision. Throughout the procedure, the patient's blood pressure, pulse, and oxygen saturations were monitored continuously. The Endoscope was introduced through the mouth, and advanced to the second part of duodenum. The upper GI endoscopy was accomplished without difficulty. The patient tolerated the procedure well. Scope In: 9:27:30 AM Scope Out: 9:43:32 AM Total Procedure Duration Time 0 hours 16 minutes 2 seconds Findings: The Z-line was irregular and was found 40 cm from the incisors. Biopsies were taken with a cold forceps for histology. Mild inflammation characterized by erythema was found in the gastric antrum. Biopsies were taken with a cold forceps for histology. Biopsies were taken with a cold forceps for Helicobacter pylori cultures. No gross lesions were noted in the duodenal bulb, in the first portion of the duodenum and in the second portion of the duodenum. A small hiatal hernia was present. The patient was placed in the supine position for PEG placement. The stomach was insufflated to appose gastric and abdominal mckinney. A site was located in the body of the stomach with excellent transillumination for placement. The abdominal wall was marked and prepped in a sterile manner. The area was anesthetized with 4 mL of 0.5% lidocaine. The trocar needle was introduced through the abdominal wall and into the stomach under direct endoscopic view. A snare was introduced through the endoscope and opened in the gastric lumen. The guide wire was passed through the trocar and into the open snare. The snare was closed around the guide wire. The endoscope and snare were removed, pulling the wire out through the mouth. A skin incision was made at the site of needle insertion. The externally removable 20 Fr EndoVive Safety gastrostomy tube was lubricated. The G-tube was tied to the guide wire and pulled through the mouth and into the stomach. The trocar needle was removed, and the gastrostomy tube was pulled out from the stomach through the skin. The external bumper was attached to the gastrostomy tube, and the tube was cut to remove the guide wire. The final position of the gastrostomy tube was confirmed by relook endoscopy, and skin marking noted to be 2.5 cm at the external bumper. The final tension and compression of the abdominal wall by the PEG tube and external bumper were checked and revealed that the bumper was loose and lightly touching the skin. The feeding tube was capped, and the tube site cleaned and dressed. Impression: - Z-line irregular, 40 cm from the incisors. Biopsied. - Gastritis. Biopsied. - No gross lesions in the duodenal bulb, in the first portion of the duodenum and in the second portion of the duodenum. - Small hiatal hernia. - An externally removable PEG placement was successfully completed. Recommendation: - Please follow the post-PEG recommendations including: change dressing on top of bumper daily, may use PEG today for meds and water, flush PEG daily with 60 ml water and clean site with soap and water daily and dry thoroughly. - Continue present medications. Procedure Code(s): --- Professional --- 00352, Esophagogastroduodenoscopy, flexible, transoral; with directed placement of percutaneous gastrostomy tube 71678, Esophagogastroduodenoscopy, flexible, transoral; with biopsy, single or multiple Diagnosis Code(s): --- Professional --- K22.89, Other specified disease of esophagus K29.70, Gastritis, unspecified, without bleeding K44.9, Diaphragmatic hernia without obstruction or gangrene D37.05, Neoplasm of uncertain behavior of pharynx R63.39, Other feeding difficulties Z43.1, Encounter for attention to gastrostomy CPT copyright 2021 [employer]. All rights reserved. The codes documented in this report are preliminary and upon quality associate review may be revised to meet current compliance requirements. MD Kalyn Kaufman MD 06/30/2025 10:03:04 AM This report has been signed electronically. Number of Addenda: 0 Note Initiated On: 06/30/2025 8:32 AM 06/30/25 1003 Date _ Kalyn Ng MD Cosigner Signature: Date (if indicated) CC: Dr. Eloina Chi MD; Dr. Kalyn Ng MD ~ Date Dictated: 06/30/25 0832 Date Transcribed: Batter Out: TR Signed [facility]09-17-2025 Procedure note [facility] Medical Records Department [address] [place] [address] Provation Physician Letter MR#: [id number] Acct: [id number] Name: PARADAGLENN DEV Rep #:[id number] : 1945 80 From: Kalyn Ng MD PCP: Dr. Eloina Chi MD Status:REG SD C 06/30/2025 Eloina Chi Md Re : Upper GI endoscopy procedure for Glenn Chi This procedure was performed on Monday, June 30, 2025. My impressions and recommendations are as follows: Impressions : - Z-line irregular, 40 cm from the incisors. Biopsied. - Gastritis. Biopsied. - No gross lesions in the duodenal bulb, in the first portion of the duodenum and in the second portion of the duodenum. - Small hiatal hernia. - An externally removable PEG placement was successfully completed. Recommendations : - Please follow the post-PEG recommendations including: change dressing on top of bumper daily, may use PEG today for meds and water, flush PEG daily with 60 ml water and clean site with soap and water daily and dry thoroughly. - Continue present medications. My findings are described in the full procedure note, which is enclosed. If I can be of further assistance, please feel free to contact me at Doctor phone number(s): , Work: . Sincerely, MD Kalyn Kaufman MD 06/30/2025 10:03:04 AM This report has been signed electronically. 06/30/25 1003 Date _ Kalyn Ng MD Cosigner Signature: Date (if indicated) CC: Dr. Eloina Chi MD; Dr. Kalyn Ng MD ~ Date Dictated: 06/30/2532 Date Transcribed: Batter Out: TR Hugo [facility]09-17-2025 Consult note Author Ho Rushing [facility] Note Date/Time June 30, 2025 8:02am [facility] Medical Records Department [address] [place] [address] Pre-Anesthesia Evaluation 06/30/25 0757 MR#: [id number] Acct: [id number] Name: GLENN PARADA DEV Rep #:[id number] : 1945 80 From: Ho Segovia PCP: Dr. Eloina Chi MD Status:REG SD C Y Race: C Location: [place] [address] ASA Classification* ASA Classification ASA Classification: 3 Assessment & Plan Anesthesia* Anesthesia Assessment Anesthesia Assessment: Discussed sedation and/or anesthesia options, risks, benefits, and alternatives with patient/parents/legal guardian/POA. Questions invited. The patient/parents/legal guardian/POA seems to understand and agrees to proceedwith anesthesia plan. Reviewed the physical assessment, medical history, allergy history and patient home medications list prior to surgery/procedure/anesthetic and documented any changes. Performed airway and anesthesia risk assessments. Anesthesia Type Anesthesia Type: General History Source History Obtained from:: Patient, Chart and Significant Other (Spouse) Anesthesia Focused Assessment* Temperature: 97.5 F Pulse Rate: 78 Blood Pressure: 108/74 Respiratory Rate: 18 Pulse Ox: 92 Oxygen Delivery Method: Room Air Airway Assessment Mouth opens: >3 cm Mallampati Score: II Teeth Condition: Chipped/Broken and Missing Neck Range of motion (ROM): Limited ROM Labs Anesthesia Preop lab: CBC WBC, (4.4-11.0) 8.4 K/mm3 06/28/25, 14: RBC, (4.6-6.2) 4.04 M/mm3 L 06/28/25, 14: Hgb, (13.0-16.5) 12.1 g/dL L 06/28/25, 14: Hct, (40-54) 36.4 % L 06/28/25, 14:31 Plt Count, (150-450) 262 K/mm3 06/28/25, 14:31 CHEMISTRY Potassium, (3.3-5.1) 3.7 mmol/L 06/28/25, 14: Sodium, (133-145) 137 mmol/L 06/28/25, 14: BUN, (4-19) 16 mg/dL 06/28/25, 14: Creatinine, (0.70-1.20) 1.17 mg/dL 06/28/25, 14: Glucose, (70-99) 101 mg/dL H 06/28/25, 14: TSH, (0.358-3.74) 2.72 uIU/mL 05/09/24, 06:01 COAG PT, (11.7-14.9) 13.5 SECONDS 05/09/24, 06:01 Pre-Assessment Diagnosis/Proposed Procedure Planned Operative Procedure(s): INSERTIONRIGHT POSS LEFT IJ,EGD WITH PEG TUBE INSERTION Anesthesia History 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 When Was Last Pacemaker Check QUESTION #4 FULL TEXT: You/Your Family Experience fever (hyperthermia) with Anesthesia Last Oral Intake Last Oral intake: Last Oral Intake NPO since 06:45 06/30/25 07:23 Meds taken in AM with sips of Yes 06/30/25 07:23 water? Meds patient instructed to levothyroxine, carbidopa/ 06/30/25 07:23 take am of surgery levodopa, omeprazole, motegrity, fludrocort, Tamsulosin PONV PONV - switchboard wire worker helper: PONV - switchboard wire worker helper Female No 06/24/25 08:12 HX of Motion Sickness No 06/24/25 08:12 HX of N/V After Surgery No 06/24/25 08:12 Non-Smoker Yes 06/24/25 08:12 Duration of Surgery greater Yes 06/24/25 08:12 than 60 minutes Number of Risk Factors 2 06/24/25 08:12 PONV Score Moderate Risk 06/24/25 08:12 Height & Weight Height & Weight: Anesthesia: Height & Weight Height 5 ft 8 in 06/30/25 07:23 Weight: 70 kg 06/30/25 07:23 Body Mass Index (BMI) 23.4 06/30/25 07:23 Respiratory Assessment Respiratory Assessment - switchboard wire worker helper: Respiratory Tract Infection Hx - switchboard wire worker helper Hx Respiratory Tract Infection No 06/24/25 08:12 STOP Sleep Apnea STOP Sleep Apnea - switchboard wire worker helper: STOP Sleep Apnea - switchboard wire worker helper Hx Hypertension No 06/24/25 08:12 Hx Sleep [...] 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 - switchboard wire worker helper: Tobacco Use History - switchboard wire worker helper Tobacco Use Smoking Status Former smoker 06/24/25 08:12 Hx Tobacco Use No 06/24/25 08:12 Years Smoking Packs Smoked per Day Smoking Cessation Date was No - quit smoking greater 06/24/25 08:12 within the last 15 years than 15 years ago Hx Smoking Cessation Date 10/14/69 06/24/25 08:12 Hx Smoking Cessation Counseling Hematologic Medial History Hematologic Hx - switchboard wire worker helper: 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 confused, unrespo /Reproduction History /Reproductive History - switchboard wire worker helper: /Reproductive Hx- switchboard wire worker helper Hx Now No 06/24/25 08:12 Gestational Age (in weeks): EDC: Hx Hx Para Hx Section SAB No 06/24/25 08:12 Active Medications Active Medications: Current Medications Generic Name Dose Route Start Last Admin Trade Name Freq PRN Reason Stop Dose Admin Cefazolin Sodium 2 gm/ Sodium 110 mls @ 200 mls/hr 06/30/25 09:00 Chloride IV 06/30/25 09:32 INTRAOP ONE Lactated Ringer's 1,000 mls @ 15 mls/hr 06/30/25 07:15 06/30/25 07:39 IV 15 mls/hr .Q48H KRISHAN Administration PFSH Medical History Encounter for education Wears glasses Cancer Alcohol [...] Cardiology follow-up encounter Celiac disease Home Medications ?Medication ?Instructions ?Recorded ?Last Taken ?Type levothyroxine 50 mcg tablet 50 mcg PO QDAY 03/05/24 History omeprazole 40 mg capsule,delayed 40 mg PO QDAY 4 06/30/25 History release tamsulosin 0.4 mg capsule 0.4 mg PO BID 03/05/2406/30 History prucalopride 2 mg tablet 2 mg PO DAILY 05/09/2406/30 History (Motegrity) carbidopa ER 25 mg-levodopa 100 mg 1 tab PO .qid 06/1006/30/25 History tablet,extended release fludrocortisone 0.1 mg tablet 0.1 mg PO QDAY 06/17/25 06/30/25 History lidocaine-prilocaine 2.5 %-2.5 % 1 applic topical ONCE PRN port 06/28/25 Unknown Rx topical cream access 30 days #30 grams ondansetron 8 mg disintegrating 8 mg PO Q8H PRN nausea and 06/28/25 Unknown Rx tablet vomiting #30 tabs Allergy/AdvReac Type Severity Reaction Status Date / Time gluten Allergy Abd Verified 06/30/25 07:22 cramps/diarrhea aripiprazole AdvReac unknown Verified 06/30/25 07:22 haloperidol AdvReac unknown Verified 06/30/25 07:22 metoclopramide AdvReac unknown Verified 06/30/25 07:22 olanzapine AdvReac unknown Verified 06/30/25 07:22 prochlorperazine AdvReac unknown Verified 06/30/25 07:22 promethazine AdvReac unknown Verified 06/30/25 07:22 Family History Brother Cancer THROAT Mother Leukemia Sister Breast cancer Surgical History Hx of right cataract extraction Hx of left cataract extraction Hx of eye surgery History of hydrocelectomy Hx of hernia repair Hx of colonoscopy Social History household members: significant other housing: house current occupational status: retired Smoking Status: Former smoker alcohol intake: never substance use type: does not use Review of Systems (Anesthesia) ROS Narrative System reviewed and no additional complaints, except as documented. 06/30/25 08 <Electronically signed by Ho Rushing MD> Date _ Ho Rushing MD Cosigner Signature: Date CC: ~ Signed [facility] Work Phone: 1(894) 310-457909-17-2025 Consult note [facility] Medical Records Department [address] [place] [address] Anesthesia Postop Eval I 06/30/25958 MR#: [id number] Acct: [id number] Name: GLENN PARADA DEV Rep #:[id number] : 1945 80 From: Ginny rehman CRNA PCP: Dr. Eloina Chi MD Status:REG SD C Y Race: C Location: [place] [address] Anesthesia: Postop Eval I Current Vital Signs Temperature: 97.2 F Pulse Rate: 101 Blood Pressure: 98/63 Respiratory Rate: 18 Pulse Ox: 94 Oxygen Delivery Method: Room Air Assessment Airway patent: Yes Spontaneous unlabored respirations: Yes Mental status: Calm nausea: No Vomiting: No Anesthesia Complication: No Fluid Hydration Crystalloid volume administer (ml): 1,200 Total IV fluid infused: 1,200 Progress Note Anesthesia document: Postop Eval 1 completed: Yes 06/30/25958 tanika CLOTHES SHAKER> Date _ Ginny Luigner Signature: Date CC: ~ Signed [facility]09-17-2025 Discharge summary [facility] Medical Records Department [address] [place] [address] Instructions for Home/Discharge Instructions 06/30/25 0948 MR#: [id number] Acct: [id number] Name: GLENN PARADA DEV Rep #:[id number] : 1945 80 From: Kalyn Ng MD PCP: Dr. Eloina Chi MD Status:REG SD C Discharge Instructions Procedure Port-A-Cath Diet Discharge Diet: Light diet - advance as tolerated Activity May shower in (days): 5 (Keep port site clean and dry x5 days. Neck incision okay to get wet after 1 day. Okay to lower shower and upper sponge bath. OR okay to taper off port site with a Ziploc bag to shower) Lifting Restrictions: No lifting > 15 pounds for 3 days with the arm on the sideof the port Dressing / Incision Call your doctor if your incision/area has: Continuous Slow Oozing, Sudden Increased Bleeding, Increased Pain/ Swelling, Increased Redness, Foul Smelling Discharge and Swelling at the incision site Call your doctor if you observe: Fever of 101 or Higher Change Dressing in: 2 days (2-3 days- port site; ok to remove neck opsite in 1 day) Additional Dressing/Incision Instructions:: Flush PEG tube daily with 60 cc of tap water, clean under bumper daily-do not put gauze under the bumper or if you do only do 1 layer of gauze Follow Up Care Please Follow Up With: Kalyn Ng MD When: In 10 days for permanent suture removal?call office for appointment Test Results: Test results from this visit will be discussed in further detail at your follow- up appointment, if applicable. Discharge Plan Admission Attending Provider: Kalyn Ng Primary Care Provider: Eloina Chi Instructions Print Language: Khmer Discharge Orders/Prescriptions Prescriptions: Continued levothyroxine 50 mcg tablet 50 mcg PO QDAY omeprazole 40 mg capsule,delayed release(DR/EC) 40 mg PO QDAY tamsulosin 0.4 mg capsule 0.4 mg PO BID carbidopa-levodopa 25-100 mg tablet extended release 1 tab PO .qid fludrocortisone 0.1 mg tablet 0.1 mg PO QDAY ondansetron 8 mg tablet,disintegrating 8 mg PO Q8H PRN (Reason: nausea and vomiting) Qty: 30 1RF lidocaine-prilocaine 2.5-2.5 % cream 1 applic topical ONCE PRN (Reason: port access) 30 Days Qty: 30 2RF prucalopride [Motegrity] 2 mg tablet 2 mg PO DAILY Referrals / Follow Up: Eloina Chi MD [Primary Care Provider, Family Practice] Disposition Disposition (needs filled in before D/C Order can be placed): Home, Self Care 06/30/25 0951Kalyn Ng MD CC: Dr. Eloina Chi MD ~ Signed [facility]09-17-2025 History and physical note [facility] Medical Records Department [address] [place] [address] History & Physical Exam 06/30/25 0718 MR#: [id number] Acct: [id number] Name: GLENN PARADA DEV Rep #:[id number] : 1945 80 From: Kalyn Ng MD PCP: Dr. Eloina Chi MD Status:REG SD C Location: [place] [address] History and Physical Date of Admission: 06/30/25 Date of Service: 06/21/25 MR#: [id number] Acct: [id number] Name: GLENN PARADA DEV Rep #: [id number] : 1945 Provider: Dr. Kalyn Ng MD Age/Sex: 80/M Location: [facility] Status: Signed Intake Vital Signs 06/17/2513:42 06/18/2510:30 06/21/2513:38 Height 5 ft 8 in 5 ft [...] tablet 50 mcg PO QDAY 03/05/24 06/21/25 History omeprazole 40 mg capsule,delayed 40 mg PO QDAY 03/05/24 06/21/25 History release tamsulosin 0.4 mg capsule 0.4 mg PO BID 03/05/24 06/21/25 History prucalopride 2 mg tablet 2 mg PO DAILY 05/09/24 06/21/25 History (Motegrity) carbidopa ER 25 mg-levodopa 100 mg 1 tab PO .qid 06/10/25 06/21/25 History tablet,extended release peg 3350-electrolytes 236 ml PO PRN constipation 06/10/25 06/21/25 History gram-22.74 gram-6.74 gram-5.86 gram solution fludrocortisone [...] healthy appearing, comfortable and no acute distress [facility] Head: normocephalic and atraumatic Neck Neck: supple [...] no further questions. Kalyn Ng M.D. Pager: [phone] [facility] [address] [place] [address], [address] [place] [address] Office: 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 Eloina Chi MD; Dr. Kalyn Ng MD~ Signed ADDENDUM by Dr. Kalyn Ng MD on 06/30/25 at 0815 Addendum I have examined the patient the following changes are noted: Patient's initial systolic blood pressure was 77 that went up to 82 patient will be getting IV fluids before procedure. Patient's states that he is never over 100 systolic. 06/30/25 0815 Cosigner Signature (if applicable): cc: Dr. Eloina Chi MD; Dr. Kalyn Ng MD ~* Signed [facility]09-17-2025 Consult note [facility] Medical Records Department [address] [place] [address] Pre-Anesthesia Evaluation 06/30/25 0757 MR#: [id number] Acct: [id number] Name: GLENN PARADA DEV Rep #:[id number] : 1945 80 From: Ho Segovia PCP: Dr. Eloina Chi MD Status:REG SD C Y Race: C Location: [place] [address] ASA Classification* ASA Classification ASA Classification: 3 Assessment & Plan Anesthesia* Anesthesia Assessment Anesthesia Assessment: Discussed sedation and/or anesthesia options, risks, benefits, and alternatives with patient/parents/legal guardian/POA. Questions invited. The patient/parents/legal guardian/POA seems to understand and agrees to proceedwith anesthesia plan. Reviewed the physical assessment, medical history, allergy history and patient home medications list prior to surgery/procedure/anesthetic and documented any changes. Performed airway and anesthesia risk assessments. Anesthesia Type Anesthesia Type: General History Source History Obtained from:: Patient, Chart and Significant Other (Spouse) Anesthesia Focused Assessment* Temperature: 97.5 F Pulse Rate: 78 Blood Pressure: 108/74 Respiratory Rate: 18 Pulse Ox: 92 Oxygen Delivery Method: Room Air Airway Assessment Mouth opens: >3 cm Mallampati Score: II Teeth Condition: Chipped/Broken and Missing Neck Range of motion (ROM): Limited ROM Labs Anesthesia Preop lab: CBC WBC, (4.4-11.0) 8.4 K/mm3 06/28/25, 14:31 RBC, (4.6-6.2) 4.04 M/mm3 L 06/28/25, 14:31 Hgb, (13.0-16.5) 12.1 g/dL L 06/28/25, 14:31 Hct, (40-54) 36.4 % L 06/28/25, 14:31 Plt Count, (150-450) 262 K/mm3 06/28/25, 14:31 CHEMISTRY Potassium, (3.3-5.1) 3.7 mmol/L 06/28/25, 14:31 Sodium, (133-145) 137 mmol/L 06/28/25, 14:31 BUN, (4-19) 16 mg/dL 06/28/25, 14: Creatinine, (0.70-1.20) 1.17 mg/dL 06/28/25, 14: Glucose, (70-99) 101 mg/dL H 06/28/25, 14: TSH, (0.358-3.74) 2.72 uIU/mL 05/09/24, 06:01 COAG PT, (11.7-14.9) 13.5 SECONDS 05/09/24, 06:01 Pre-Assessment Diagnosis/Proposed Procedure Planned Operative Procedure(s): INSERTIONRIGHT POSS LEFT IJ,EGD WITH PEG TUBE INSERTION Anesthesia History 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 When Was Last Pacemaker Check QUESTION #4 FULL TEXT: You/Your Family Experience fever (hyperthermia) with Anesthesia Last Oral Intake Last Oral intake: Last Oral Intake NPO since 06:45 06/30/25 07:23 Meds taken in AM with sips of Yes 06/30/25 07:23 water? Meds patient instructed to levothyroxine, carbidopa/ 06/30/25 07:23 take am of surgery levodopa, omeprazole, motegrity, fludrocort, Tamsulosin PONV PONV - switchboard wire worker helper: PONV - switchboard wire worker helper Female No 06/24/25 08:12 HX of Motion Sickness No 06/24/25 08:12 HX of N/V After Surgery No 06/24/25 08:12 Non-Smoker Yes 06/24/25 08:12 Duration of Surgery greater Yes 06/24/25 08:12 than 60 minutes Number of Risk Factors 2 06/24/25 08:12 PONV Score Moderate Risk 06/24/25 08:12 Height & Weight Height & Weight: Anesthesia: Height & Weight Height 5 ft 8 in 06/30/25 07:23 Weight: 70 kg 06/30/25 07:23 Body Mass Index (BMI) 23.4 06/30/25 07:23 Respiratory Assessment Respiratory Assessment - switchboard wire worker helper: Respiratory Tract Infection Hx - switchboard wire worker helper Hx Respiratory Tract Infection No 06/24/25 08:12 STOP Sleep Apnea STOP Sleep Apnea - switchboard wire worker helper: STOP Sleep Apnea - switchboard wire worker helper Hx Hypertension No 06/24/25 08:12 Hx Sleep [...] than talking or can be heard through closeddoors)? 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 confused, unrespo /Reproduction History /Reproductive History - switchboard wire worker helper: /Reproductive Hx- switchboard wire worker helper Hx Now No 06/24/25 08:12 Gestational Age (in weeks): EDC: Hx Hx Para Hx Section SAB No 06/24/25 08:12 Active Medications Active Medications: Current Medications Generic Name Dose Route Start Last Admin Trade Name Freq PRN Reason Stop Dose Admin Cefazolin Sodium 2 gm/ Sodium 110 mls @ 200 mls/hr 06/30/25 09:00 Chloride IV 06/30/25 09:32 INTRAOP ONE Lactated Ringer's 1,000 mls @ 15 mls/hr 06/30/25 07:15 06/30/25 07:39 IV 15 mls/hr .Q48H KRISHAN Administration PFSH Medical History Encounter for education Wears glasses Cancer Alcohol [...] Cardiology follow-up encounter Celiac disease Home Medications ?Medication ?Instructions ?Recorded ?Last Taken ?Type levothyroxine 50 mcg tablet 50 mcg PO QDAY 03/05/24 History omeprazole 40 mg capsule,delayed 40 mg PO QDAY 4 06/30/25 History release tamsulosin 0.4 mg capsule 0.4 mg PO BID 03/05/2406/30 History prucalopride 2 mg tablet 2 mg PO DAILY 05/09/2406/30 History (Motegrity) carbidopa ER 25 mg-levodopa 100 mg 1 tab PO .qid 06/1006/30/25 History tablet,extended release fludrocortisone 0.1 mg tablet 0.1 mg PO QDAY 06/17/25 06/30/25 History lidocaine-prilocaine 2.5 %-2.5 % 1 applic topical ONCE PRN port 06/28/25 Unknown Rx topical cream access 30 days #30 grams ondansetron 8 mg disintegrating 8 mg PO Q8H PRN nausea and 06/28/25 Unknown Rx tablet vomiting #30 tabs Allergy/AdvReac Type Severity Reaction Status Date / Time gluten Allergy Abd Verified 06/30/25 07:22 cramps/diarrhea aripiprazole AdvReac unknown Verified 06/30/25 07:22 haloperidol AdvReac unknown Verified 06/30/25 07:22 metoclopramide AdvReac unknown Verified 06/30/25 07:22 olanzapine AdvReac unknown Verified 06/30/25 07:22 prochlorperazine AdvReac unknown Verified 06/30/25 07:22 promethazine AdvReac unknown Verified 06/30/25 07:22 Family History Brother Cancer THROAT Mother Leukemia Sister Breast cancer Surgical History Hx of right cataract extraction Hx of left cataract extraction Hx of eye surgery History of hydrocelectomy Hx of hernia repair Hx of colonoscopy Social History household members: significant other housing: house current occupational status: retired Smoking Status: Former smoker alcohol intake: never substance use type: does not use Review of Systems (Anesthesia) ROS Narrative System reviewed and no additional complaints, except as documented. 06/30/25 0802 > Date _ Ho Luigncristina Signature: Date CC: ~ Signed [facility]09-17-2025 [facility]09-16-2025 Telephone encounter Note* Telephone Encounter - Aries Sarabia APRN.CNP - 06/29/2025 7:20 PM EDT I called and spoke with his as [...] at any time if he decides to doso. We also talked about keeping the oncologist involved in any of our decision making in regard totreatment so that everything being done is in his best interest and not interfering with treatment,confusing possible side effects, etc. his next appointment is set up after he should be done with the treatment but I asked her to let me know if there is anything we can help out with in the meantime. PATRICIA Bowser [facility]09-16-2025 Miscellaneous Notes* Telephone Encounter - Aries Sarabia APRN.CNP - 06/29/2025 7:20 PM EDT I called and spoke with his as [...] at any time if he decides to doso. We also talked about keeping the oncologist involved in any of our decision making in regard totreatment so that everything being done is in his best interest and not interfering with treatment,confusing possible side effects, etc. his next appointment is set up after he should be done with the treatment but I asked her to let me know if there is anything we can help out with in the meantime. 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 Patient had complaints of numbness [...] and port placement will be done at [facility]. ENT is [facility] provider. 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 He was referred to Dr. Siegel at [facility], had left tonsil biopsy on 05/28/2025, pathology showed Invasive squamous cell carcinoma, HPV positive. Chemoradiation therapy was suggested as definitive treatment. Interval History The patient is presenting to clinic accompanied by spouse to discuss chemotherapy, carboplatin/paclitaxel. Appetite good, meats limited to chicken and ground beef, otherwise no dysphagia limiting nutritional intake. Performs self care ADLs independently. + Neuropathy involving feet bilat. [facility] Medical History (Updated 06/28/25 @ 15:30 by Jayashree Anderson CERAMIC TILE INSTALLATION HELPER, CERAMIC TILE INSTALLATION HELPER-C) Encounter for education Wears glasses Cancer Alcohol [...] 06/28/25 1632 <Electronically signed by Jayashree juarez NP CERAMIC TILE INSTALLATION HELPER-C> Date _ Jayashree Anderson NP CERAMIC TILE INSTALLATION HELPER-C Cosigner Signature: Date (if applicable) CC: ~ [employer] Work Phone: 1(969) 434-681209-15-2025 Progress [facility] [address] [address] OFFICE VISIT Date of Service: 06/28/25 1502 MR#: [id number] Acct: [id number] Name: PARADAGLENN Rep #: [id number] : 1945 From: Jayashree Costa ch, NP 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 He was referred to Dr. Siegel at [facility], had lefttonsil biopsy on 05/28/2025, pathology showed Invasive squamous cell carcinoma, HPV positive. Chemoradiation therapy was suggested as definitive treatment. Interval History The patient is presenting to clinic accompanied by spouse to discuss chemotherapy, carboplatin/paclitaxel. Appetite good, meats limited to chicken and ground beef, otherwise no dysphagia limiting nutritional intake. Performs self care ADLs independently. + Neuropathy involving feet bilat. 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 Patient had complaints of numbness [...] and port placement will be done at [facility]. ENT is [facility] provider. [facility]09-08-2025 Progress [facility] [address] [place] [address] OFFICE VISIT Date of Service: 06/21/25 MR#: [id number] Acct: [id number] Name: PARADAGLENN DEV Rep #: [id number] : 1945 Provider: Dr. Diogenes Ng MD Age/Sex: 80/M Location: [facility] Status: Signed Intake Vital Signs 06/17/25 13:42 [...] healthy appearing, comfortable and no acute distress HENMT Head: normocephalic and atraumatic Neck Neck: supple [...] no further questions. Kalyn Ng M.D. Pager: [phone] [facility] [address] [place] [address], [address] [place] [address] Office: 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 Eloina Chi MD; Dr. En Guerin, DO ~ [facility]09-08-2025 Progress note Author Kalyn Ng [facility] Note Date/Time June 21, 2025 2:06pm [facility] [address] [place] [address] OFFICE VISIT Date of Service: 06/21/25 MR#: [id number] Acct: [id number] Name: GLENN PARADA DEV Rep #: [id number] : 1945 Provider: Dr. Diogenes Ng MD Age/Sex: 80/M Location: [facility] Status: Signed Intake Vital Signs 06/17/25 13:42 [...] healthy appearing, comfortable and no acute distress [facility] Head: normocephalic and atraumatic Neck Neck: supple [...] no further questions. Kalyn Ng M.D. Pager: [phone] [facility] [address] [place] [address], [facility], [address] [place] [address] Office: [phone] Coding Level of Care Code Off vis,new,level [...] Chi MD; Dr. 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 acute June 17, 2 025 1:25pm Squamous cell carcinoma of oropharynx acute June 17 025 1:25pm Encounter for insertion of venous access port acute June 1:21pm Encounter for PEG (percutaneous endoscopic gastrostomy) acute Viviane 8th, 2 025 1:21pm Squamous cell carcinoma of oropharynx acute June 21, 2 025 1:21pm 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 acute June 17 025 1:25pm Squamous cell carcinoma of oropharynx acute June 17, 025 1:25pm Encounter for insertion of venous access port acute June 1:21pm Encounter for PEG (percutaneous endoscopic gastrostomy) June 21 025 1:21pm Squamous cell carcinoma of oropharynx June 21 1:21pm Nodule of chest wall acute Jun 8:18am 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 acute June 22 025 8:18am Squamous cell carcinoma of oropharynx acute June 22 8:18am Encounter for education acute S 2024 2:20pm Nodule of chest wall acute Jun 2:20pm 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 acute June 28, 2025 2:20pm Squamous cell carcinoma of oropharynx acute June 28, 2025 2:20pm Chemotherapy management, encounter for acute July 05, 2025 7:38am Nodule of chest wall acute Jun 7:38am 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 acute July 05, 2025 7:38am Squamous cell carcinoma of oropharynx acute July 05, 2025 7:38am Squamous cell carcinoma of oropharynx acute July 07, 2025 1:12pm Chemotherapy management, encounter for acute July 12, 2025 7:27am Nodule of chest wall acute Jun 7:27am 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 acute July 12, 2025 7:27am Squamous cell carcinoma of oropharynx acute July 12, 2025 7:27am Port-A-Cath in place acute Jun 1:32pm S/P percutaneous endoscopic gastrostomy (PEG) tube placement acute July 12, 2025 1:32pm [facility] Work Phone: 1([phone]) [phone] Evaluation note* Diagnosis Onset Date Resolution Status Admit Date 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 acute June 17 025 1:25pm Squamous cell carcinoma of oropharynx acute June 17 1:25pm Encounter for insertion of venous access port acute June 1:21pm Encounter for PEG (percutaneous endoscopic gastrostomy) acute June 21 1:21pm Squamous cell carcinoma of oropharynx acute June 21 025 1:21pm Nodule of chest wall acute Jun 8:18am 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 June 22 8:18am Squamous cell carcinoma of oropharynx acute June 22 8:18am Encounter for education acute S te2024 2:20pm Nodule of chest wall acute Jun 2:20pm 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 acute June 28, 2025 2:20pm Squamous cell carcinoma of oropharynx acute June 28, 2025 2:20pm Chemotherapy management, encounter for acute July 05, 2025 7:38am Nodule of chest wall acute Jun 7:38am 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 acute July 05, 2025 7:38am Squamous cell carcinoma of oropharynx acute July 05, 2025 7:38am Squamous cell carcinoma of oropharynx acute July 07, 2025 1:12pm Chemotherapy management, encounter for acute July 12, 2025 7:27am Nodule of chest wall acute Jun 7:27am 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 acute July 12, 2025 7:27am Squamous cell carcinoma of oropharynx acute July 12, 2025 7:27am Port-A-Cath in place acute Jun 1:32pm S/P percutaneous endoscopic gastrostomy (PEG) tube placement acute July 12, 2025 1:32pm Squamous cell carcinoma of oropharynx acute July 14 1:07pm [facility] Work Phone: 1([phone]) 973-834909-04-2025 Evaluation note* Diagnosis Onset Date Resolution Status Admit Date 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 acute June 17 1:25pm Squamous cell carcinoma of oropharynx June 17 1:25pm Encounter for insertion of venous access port acute June 1:21pm Encounter for PEG (percutaneous endoscopic gastrostomy) acute June 21, 025 1:21pm Squamous cell carcinoma of oropharynx acute June 21, 025 1:21pm Nodule of chest wall acute [...] of oropharynx acute June 28, 2025 2:20pm Chemotherapy management, encounter for acute July 05, 2025 7:38am Nodule of chest wall acute Jun 7:38am 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 acute July 05, 2025 7:38am Squamous cell carcinoma of oropharynx acute July 05, 2025 7:38am Squamous cell carcinoma of oropharynx acute July 07, 2025 1:12pm Chemotherapy management, encounter for acute July 12, 2025 7:27am Nodule of chest wall acute Jun 7:27am 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 acute June 22 025 8:18am Squamous cell carcinoma of oropharynx acute June 22 025 8:18am Encounter for education acute S te2024 2:20pm Nodule of chest wall acute Jun 2:20pm 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 acute June 28, 2025 2:20pm Squamous cell carcinoma of oropharynx acute June 28, 2025 2:20pm Chemotherapy management, encounter for acute July 05, 2025 7:38am Nodule of chest wall acute Jun 7:38am 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 acute July 05, 2025 7:38am Squamous cell carcinoma of oropharynx acute July 05, 2025 7:38am Squamous cell carcinoma of oropharynx acute July 07, 2025 1:12pm Chemotherapy management, encounter for acute July 12, 2025 7:27am Nodule of chest wall acute Jun 7:27am 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 acute July 12, 2025 7:27am Squamous cell carcinoma of oropharynx acute July 12, 2025 7:27am Port-A-Cath in place acute Jun 1:32pm S/P percutaneous endoscopic gastrostomy (PEG) tube placement acute July 12, 2025 1:32pm Squamous cell carcinoma of oropharynx acute July 14 1:07pm Chemotherapy management, encounter for acute July 19 7:39am Nodule of chest wall acute 2024 7:39am 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 acute July 19 7:39am Squamous cell carcinoma of oropharynx acute July 19 7:39am Squamous cell carcinoma of oropharynx acute July 21 1:12pm [facility] Work Phone: 1(296) 337-180409-04-2025 Evaluation note* Diagnosis Onset Date Resolution Status Admit Date 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 acute June 17 1:25pm Squamous cell carcinoma of oropharynx June 17 1:25pm Encounter for insertion of venous access port june 1:21pm Encounter for PEG (percutaneous endoscopic gastrostomy) June 21 025 1:21pm Squamous cell carcinoma of oropharynx chronic June 21 1:21pm Nodule of chest wall acute Jun 8:18am 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 June 22 8:18am Squamous cell carcinoma of oropharynx chronic June 22 8:18am Encounter for education acute [facility]2024 2:20pm Nodule of chest wall acute Jun 2:20pm 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 acute June 28, 2025 2:20pm Squamous cell carcinoma of oropharynx chronic June 28, 2025 2:20pm Chemotherapy management, encounter for acute July 05, 2025 7:38am Nodule of chest wall acute Jun 7:38am 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 acute July 05, 2025 7:38am Squamous cell carcinoma of oropharynx chronic July 05, 2025 7:38am Squamous cell carcinoma of oropharynx chronic July 07, 2025 1:12pm Chemotherapy management, encounter for acute July 12, 2025 7:27am Nodule of chest wall acute Jun 7:27am 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 acute July 12, 2025 7:27am Squamous cell carcinoma of oropharynx chronic July 12, 2025 7:27am Port-A-Cath in place acute Jun 1:32pm S/P percutaneous endoscopic gastrostomy (PEG) tube placement acute July 12, 2025 1:32pm Squamous cell carcinoma of oropharynx chronic July 14 1:07pm Chemotherapy management, encounter for acute July 19 7:39am Nodule of chest wall acute Octo florencio 2024 7:39am 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 acute July 19 7:39am Squamous cell carcinoma of oropharynx chronic July 19 7:39am Squamous cell carcinoma of oropharynx chronic July 21 1:12pm Chemotherapy management, encounter for acute July 26 7:35am Hyponatremia acute July 7:35am 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 acute July 26 7:35am Nodule of chest wall acute Octo florencio 2024 7:35am 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 acute July 26 7:35am Squamous cell carcinoma of oropharynx chronic July 26 7:35am Squamous cell carcinoma of oropharynx chronic July 28 10:43am Encephalopathy acute resolved Octo florencio 2024 7:55pm Neutropenia with fever resolved Oc tober 2024 7:55pm Squamous cell carcinoma of oropharynx chronic August 04 1:41pm Chronic anticoagulation acute O ctober 2024 5:24am Dehydration acute August 07, 2025 5:24am Generalized weakness acute Octo florencio 2024 5:24am History of DVT (deep vein thrombosis) acute August 07 5:24am Parkinson's disease acute Octob er 2024 5:24am Pneumonia acute August 07, 2025 5:24am Squamous cell carcinoma of oropharynx chronic August 07 5:24am [facility] Work Phone: 1(897) 718-930209-04-2025 Evaluation note* Diagnosis Onset Date Resolution Status Admit Date 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 acute June 17, 2 025 1:25pm Squamous cell carcinoma of oropharynx chronic June 17, 025 1:25pm Encounter for insertion of venous access port acute June 1:21pm Encounter for PEG (percutaneous endoscopic gastrostomy) acute June 21, 2 025 1:21pm Squamous cell carcinoma of oropharynx chronic June 21, 2 025 1:21pm Nodule of chest wall acute Sept ember 2024 8:18am 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 acute June 22 025 8:18am Squamous cell carcinoma of oropharynx chronic June 22 025 8:18am Encounter for education acute S epte2024 2:20pm Nodule of chest wall acute Jun 2:20pm 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 acute June 28, 2025 2:20pm Squamous cell carcinoma of oropharynx chronic June 28, 2025 2:20pm Chemotherapy management, encounter for acute July 05, 2025 7:38am Nodule of chest wall acute Jun 7:38am 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 acute July 05, 2025 7:38am Squamous cell carcinoma of oropharynx chronic July 05, 2025 7:38am Squamous cell carcinoma of oropharynx chronic July 07, 2025 1:12pm Chemotherapy management, encounter for acute July 12, 2025 7:27am Nodule of chest wall acute Jun 7:27am 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 acute July 12, 2025 7:27am Squamous cell carcinoma of oropharynx chronic July 12, 2025 7:27am Port-A-Cath in place acute Jun 1:32pm S/P percutaneous endoscopic gastrostomy (PEG) tube placement acute July 12, 2025 1:32pm Squamous cell carcinoma of oropharynx chronic July 14 1:07pm Chemotherapy management, encounter for acute July 19 7:39am Nodule of chest wall acute 2024 7:39am 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 acute July 19 7:39am Squamous cell carcinoma of oropharynx chronic July 19 7:39am Squamous cell carcinoma of oropharynx chronic July 21 1:12pm Chemotherapy management, encounter for acute July 26 7:35am Hyponatremia acute July 7:35am 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 acute July 26 7:35am Nodule of chest wall acute Octo 2024 7:35am 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 acute July 26 7:35am Squamous cell carcinoma of oropharynx chronic July 26 7:35am Squamous cell carcinoma of oropharynx chronic July 28 10:43am Encephalopathy acute resolved Octo florencio 2024 7:55pm Neutropenia with fever resolved Oc tober 2024 7:55pm Squamous cell carcinoma of oropharynx chronic August 04 1:41pm Chronic anticoagulation acute O ctober 2024 5:24am Dehydration acute August 07, 2025 5:24am Generalized weakness acute Octo florencio 2024 5:24am History of DVT (deep vein thrombosis) acute August 07 5:24am Parkinson's disease acute Octob er 2024 5:24am Squamous cell carcinoma of oropharynx chronic August 07 5:24am Pneumonia resolved August 07, 2025 5:24am Squamous cell carcinoma of oropharynx chronic August 11 1:07pm 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 acute June 22 8:18am Squamous cell carcinoma of oropharynx chronic June 22 8:18am Encounter for education acute S eptember 2024 2:20pm Nodule of chest wall acute Jun 2:20pm 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 acute June 28, 2025 2:20pm Squamous cell carcinoma of oropharynx chronic June 28, 2025 2:20pm Chemotherapy management, encounter for acute July 05, 2025 7:38am Nodule of chest wall acute Jun 7:38am 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 acute July 05, 2025 7:38am Squamous cell carcinoma of oropharynx chronic July 05, 2025 7:38am Squamous cell carcinoma of oropharynx chronic July 07, 2025 1:12pm Chemotherapy management, encounter for acute July 12, 2025 7:27am Nodule of chest wall acute Jun 7:27am 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 acute July 12, 2025 7:27am Squamous cell carcinoma of oropharynx chronic July 12, 2025 7:27am Port-A-Cath in place acute Jun 1:32pm S/P percutaneous endoscopic gastrostomy (PEG) tube placement acute July 12, 2025 1:32pm Squamous cell carcinoma of oropharynx chronic July 14 1:07pm Chemotherapy management, encounter for acute July 19 7:39am Nodule of chest wall acute 2024 7:39am 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 acute July 19 7:39am Squamous cell carcinoma of oropharynx chronic July 19 7:39am Squamous cell carcinoma of oropharynx chronic July 21 1:12pm Chemotherapy management, encounter for acute July 26 7:35am Hyponatremia acute July 7:35am 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 acute July 26 7:35am Nodule of chest wall acute Octo florencio 2024 7:35am 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 acute July 26 7:35am Squamous cell carcinoma of oropharynx chronic July 26 7:35am Squamous cell carcinoma of oropharynx chronic July 28 10:43am Encephalopathy acute resolved Octo florencio 2024 7:55pm Neutropenia with fever resolved Oc tober 2024 7:55pm Squamous cell carcinoma of oropharynx chronic August 04 1:41pm Chronic anticoagulation acute O ctober 2024 5:24am Dehydration acute August 07, 2025 5:24am Generalized weakness acute Julo florencio 2024 5:24am History of DVT (deep vein thrombosis) acute August 07 5:24am Parkinson's disease acute Octob er 2024 5:24am Squamous cell carcinoma of oropharynx chronic August 07 5:24am Pneumonia resolved August 07, 2025 5:24am Squamous cell carcinoma of oropharynx chronic August 11 1:07pm Squamous cell carcinoma of oropharynx chronic August 18 1:13pm [facility] Work Phone: 1([phone]) 128-623508-26-2025 Telephone encounter Note* Telephone Encounter - Andreia Acevedo - 06/08/2025 4:24 PM EDT Error [id number] Miscellaneous Notes* Telephone Encounter - Andreia Acevedo - 06/08/2025 4:24 PM EDT Error documented in this [id number] Discharge summary Author Mayra Clements [facility] Note Date/Time June 07, 2025 1: 30pm [facility] Physical Therapy [facility] [facility] [place] [address] / REHABILITATION SERVICES DISCHARGE SUMMARY MR#: [id number] Acct: [id number] Name: GLENN PARADA Rep #: [id number] : 1945 80 From: Mayra Clements MP T Referring Dr.: MARNI BOWSER Status: REG R Insurance: [facility] SELF PAY INSURANCE Discharge Summary D/C [...] % Improvement: 25 Objective Objective/Function: copied from 8-12 note TUG 10.34 FGA 21 Standing opp [...] please feel free to call me at [phone]. Thank you for the referral of thispatient. Sincerely, AMRITA Thompson Balance/Gait/Functional tests Balance/Special Test Scores Functional Gait Assessment Score: 21 % Disability: 30.0000 Lower Extremity Functional Score: 57 Improvement % Improvement: 25 <Electronically signed by Mayra Clements MPT> 06/07/25 1330 CC: Dr. Eloina Chi MD; MARNI BOWSER ~ Signed [facility] Work Phone: 1(452) 822-574808-25-[address] [facility] Physical [facility] [address] [place] [address]. [address] [place] [address] / REHABILITATION SERVICES DISCHARGE SUMMARY MR#: [id number] Acct: [id number] Name: GLENN PARADA DEV Rep #: [id number] : 1945 80 From: Mayra Clements MP T Referring Dr.: MARNI BOWSER Status: REG RCR Insurance: [employer] SELF PAY INSURANCE Discharge Summary D/C summary: [...] please feel free to call me at [phone]. Thank you for the referral of thispatient. Sincerely, Mayra Clements, MPT Balance/Gait/Functional tests Balance/Special Test Scores Functional Gait Assessment Score: 21 % Disability: 30.0000 Lower Extremity Functional Score: 57 Improvement % Improvement: 25 06/07/25 1330 CC: Dr. Eloina Chi MD; MARNI BOWSER ~ Signed [facility]08-22-2025 History of Present illness Narrative* Reta Siegel MD - 06/04/2025 12:08 PM EDT Images from the original note were not included. Documentation: Mode: Telephone Patient Patient Work Phone: Patient Cell Preferred phone: [phone] Consent: I confirmed patient understanding of the [...] Parkinson's who presents today, 06/04/2025, at the [facility] for follow up regarding left oropharyngeal [...] Administered Date(s) Administered COVID-19 Vaccine (12+ yrs, Apica) mRNA, spike protein, LNP, pres. free, 30 mcg/0.3mL dose, lola-sucrose (MYZ=766) 06/22/2024 Influenza, injectable, high dose seasonal, trivalent, preservative free (CTB=789) 06/22/2024 Tdap (SSU=646) 12/26/2024 Pathologic Review: Final Diagnosis A. Oropharyngeal, [...] -Discussed his case with Dr. 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 Guerin's -we will plan for follow up 2-3 months after treatment with me Thank you so much for allowing me to participate in the care of this patient. Please feel free to contact me if you have any questions or concerns. Reta Siegel MD Kil[employer] Work[employer] Department of Otolaryngology - Head and Neck [facility] Pager: [phone] documented in this [id number] NoteTIME OUT A TIME OUT was performed prior to the procedure using active communication to verify: Correct patient: Yes Correct Procedure/site: Yes Patient tolerated the procedure well. We will call with results and plan. Kia Arthur RNThe [facility] [id number] History of Present illness Narrative* Kia Arthur RN - 05/28/2025 1:46 PM EDT TIME OUT A TIME OUT was performed prior to the procedure using active communication to verify: Correct patient: Yes Correct Procedure/site: Yes Patient tolerated the procedure well. We will call with results and plan. iKa Arthur RN * Helga Yi MA - 05/28/2025 11:42 AM EDT Patient notified that provider is running behind Helga Yi., MTA * Reta Siegel MD - 05/28/2025 11:30 AM EDT Images from the original note were not included. OTOLARYNGOLOGY - HEAD & NECK SURGERY CLINIC NOTE CHIEF COMPLAINT: Chief Complaint Patient presents with New patient, to establish relationship HPI: Glenn Parada is a 80 year old male with PMH significant for Parkinson's who presents today, 05/28/2025, at the [facility] at the request of Referring Provider: [...] smokeless tobacco. Medications/Allergies/Immunizations: His current medication(s) include: @[facility]@ Allergies: Aripiprazole, Gluten meal, Haloperidol, Metoclopramide, Olanzapine, Prochlorperazine, and Promethazine, Immunizations: Immunization History Administered Date(s) Administered COVID-19 Vaccine (12+ yrs, Apica) mRNA, spike protein, LNP, pres. free, 30 mcg/0.3mL dose, lola-sucrose (YXH=221) 06/22/2024 Influenza, injectable, high dose seasonal, trivalent, preservative free (JNW=880) 06/22/2024 Tdap (RQH=012) 12/26/2024 PHYSICAL EXAM: Vital Signs: BP 106/66 [...] will likely refer to Dr. Guerin in [place] for definitive treatment and we will plan to obtain PET scan once definitive diagnosis obtained Thank you so much for allowing me to participate in the care of this patient. Please feel free to contact me if you have any questions or concerns. Reta Siegel MD Kiln Worker Department of Otolaryngology - Head and Neck Surgery [facility], [facility] Pager: [phone] documented in this [id number] Discharge summary Author Mayra Clements [facility] Note Date/Time May 25, 2025 3: 19pm [facility] Physical Therapy [address] [place] [address] / REHABILITATION SERVICES DISCHARGE SUMMARY MR#: [id number] Acct: [id number] Name: GLENN PARADA Rep #: [id number] : 1945 80 From: Mayra Melton Referring Dr.: MARNI BOWSER Status: REG RCR Insurance: [employer] [facility] SELF PAY INSURANCE Discharge [...] please feel free to call me at [phone]. Thank you for the referral of thispatient. Sincerely, Mayra Clements, MPT Balance/Gait/Functional tests Balance/Special Test Scores Functional Gait Assessment Score: 21 % Disability: 30.0000 Lower Extremity Functional Score: 57 Improvement % Improvement: 25 <Electronically signed by Mayra Clements MPT> 05/25/25 1321 CC: Dr. Eloina Chi MD; MARNI BOWSER ~ Signed [facility] Work Phone: 1(312) 478-925608-12-[address] [facility] Physical Therapy [facility] [address] [facility] [place] [address] / REHABILITATION SERVICES DISCHARGE SUMMARY MR#: [id number] Acct: [id number] Name: GLENN PARADA Rep #: [id number] : 1945 80 From: Mayra Clements MP T Referring Dr.: MARNI BOWSER Status: REG RCR Insurance: [facility] SELF PAY INSURANCE Discharge Summary D/C [...] please feel free to call me at [phone]. Thank you for the referral of thispatient. Sincerely, AMRITA Thompson Balance/Gait/Functional tests Balance/Special Test Scores Functional Gait Assessment Score: 21 % Disability: 30.0000 Lower Extremity Functional Score: 57 Improvement % Improvement: 05/25/25 1321 CC: Dr. Eloina Chi MD; MARNI BOWSER ~ Signed [facility]08-12-2025 Discharge summary Author aMyra Clements [facility] Note Date/Time May 25, 2025 3: 19pm [facility] Physical Therapy [facility] [address] [facility] [place] [address] / REHABILITATION SERVICES DISCHARGE SUMMARY MR#: [id number] Acct: [id number] Name: GLENN PARADA Rep #: [id number] : 1945 80 From: Mayra Melton Referring DrJaiden: MARNI BOWSER Status: REG RCR [facility] Discharge Summary D/C [...] please feel free to call me at [phone]. Thank you for the referral of thispatient. Sincerely, AMRITA Thompson Balance/Gait/Functional tests Balance/Special Test Scores Functional Gait Assessment Score: 21 % Disability: 30.0000 Lower Extremity Functional Score: 57 Improvement % Improvement: 25 <Electronically signed by Mayra Clements MPT> 05/25/25 1321 CC: Dr. Eloina Chi MD; MARNI BOWSER ~ Signed [facility] Work Phone: 1([phone]) [phone] NoteHey another [place] referral. Patient is all scheduled.[facility]07-21-2025 Radiology Diagnostic study note [facility] Imaging Services [address] [place] [address] Soft Tissue Neck WITH Contrast MR#: [id number] Acct: [id number] Name: GLENN PARADA DEV Rep #: [id number] : 1945 M 80 From: Vero Arroyo MD PCP: Dr. Eloina Chi MD Status: REG CL I Study:Soft Tissue Neck WITH Contrast Date of Exam: 05/03/25 Exam# [id number] Ordering Dr: Anusha Ward MD PROCEDURE: SOFT [...] exhibit central ulceration. The dimensions at a civil rights representative axial level are about 2.4 x [...] lymphadenopathy on the left side Reading [facility] CC: Dr. Eloina Chi MD; Dr. Anusha Ward MD ~ Batter Out: Signed [facility]07-21-2025 Telephone encounter Note* Telephone Encounter - Vicente Linder MA - 05/03/2025 7:54 AM EDT Faxed rehab evaluation to [facility] and confirmation received [facility]07-21-2025 Miscellaneous Notes* Telephone Encounter - Vicente Linder MA - 05/03/2025 7:54 AM EDT Faxed rehab evaluation to [facility] and confirmation received documented in this encounterMarymount Hospital06-26-2025 Instructions* Patient Instructions* Aries Sarabia APRN.SR VICE PRESIDENT - 04/08/2025 3:43 PM EDT It was [...] ONLY IF THIS IS OK with your sausage meat trimmer/primary care provider. Otherwise, do not do this. [...] Disorders Team includes: Primary Movement Disorders Neurologist: Amisha Sarabia MD Primary Movement Disorders Advanced Practice Provider: Aries Sarabia CNP If there are any concerns before your next visit, please call or you can send a message through [employer]. You can also now schedule and select appointments through [employer]. Aries Sarabia APRN.SR VICE PRESIDENT From the Parkinson's Foundation: [email or web address] What Can [...] can make phlegm worse. documented in this encounterMarymount Hospital06-26-2025 History of Present illness Narrative* Aries Sarabia APRN.CNP - 04/08/2025 3:00 PM EDT [facility] - FOLLOW UP EVALUATION Primary Movement Disorders Neurologist: Amisha Sarabia MD Primary Movement Disorders FER: Aries Sarabia CNP Recording using ambient AI software for draft documentation of the visit was discussed with the patient/authorized civil rights representative; all questions welcomed and answered. Patient/authorized civil rights representative agreed to proceed Eloina Chi MD [facility] [address] [facility] [address] Dear Eloina Chi MD: I had the [...] Neurology Office Visit from 09/21/2024 in [facility] T Score 42.3 50.8 [...] ONLY IF THIS IS OK with your sausage meat trimmer/primary care provider. Otherwise, do not do this. [...] or around: 10/08/25 Level of service : 90994 ( 30-39 min). Time spent 32 min on the day of service, which included preparing to see the patient, mkll-vz-nita patient care, completing clinical documentation, obtaining and/or reviewing separately obtained history, performing a medically appropriate examination, and counseling and educating the patient/family/caregiver. Aries Sarabia APRN.SR VICE PRESIDENT * Maurice Carr MA - 04/07/2025 11:41 AM EDT [...] population and warrants attention documented in this encounterMarymount Hospital06-26-2025 NoteHNO ID: [id number] Author: ARIES SARABIA APRN.CNP Service: ? Author Type: Nurse Practitioner Type: Progress Notes Filed: 04/12/2025 20:47 Note Text: [facility] - FOLLOW UP EVALUATION Primary Movement Disorders Neurologist: Amisha Sarabia MD Primary Movement Disorders FER: Aries Sarabia CNP Recording using ambient AI software for draft documentation of the visit was discussed with the patient/authorized civil rights representative; all questions welcomed and answered. Patient/authorized civil rights representative agreed to proceed Eloina Chi MD [facility] [address] [facility] [address] Dear Eloina Chi MD: I had the [...] the following table s (more content not included)...[facility]06-25-2025 NoteHNO ID: [id number] Author: MAURICE CARR MA Service: ? Author Type: Technology Strategist Type: Progress Notes Filed: 04/12/2025 20:47 Note [...] 1 SD worse than population and warrants attentionNew[facility]05-13-2025 Miscellaneous Notes* Telephone Encounter - Ana Laura Schwab - 02/23/2025 9:58 AM EDT Request from patient requesting refill. Please E-Scribe to [facility]. Last OV: 09/21/24 with [facility] Future OV: 04/08/25 with Aries Requested Prescriptions Pending Prescriptions Disp Refills propranolol (INDERAL) 20 mg tablet 60 tablet 11 Sig: Take 1 tablet by mouth every 12 hours. Ana Laura Lopez documented in this encounterMarymount Hospital05-13-2025 Telephone encounter Note * Telephone Encounter - Ana Laura Schwab - 02/23/2025 9:58 AM EDT Request from patient requesting refill. Please E-Scribe to [facility]. Last OV: 09/21/24 with [facility] Future OV: 04/08/25 with Aries Requested Prescriptions Pending Prescriptions Disp Refills propranolol (INDERAL) 20 mg tablet 60 tablet 11 Sig: Take 1 tablet by mouth every 12 hours. Ana Laura Lopez [facility]03-15-2025 Radiology Diagnostic study note [facility] Imaging Services [address] [place] [address] Hand Min 3 Views MR#: [id number] Acct: [id number] Name: GLENN PARADA DEV Rep #: [id number] : 1945 M 79 From: Rena King MD PCP: Dr. Eloina Chi MD Status: REG ER Study:Hand Min 3 Views Date of Exam: Exam# [id number] Ordering Dr: Carlos Dennis MD PROCEDURE: HAND [...] Dennis MD; Dr. Eloina Chi MD ~ Batter Out: Signed [facility]03-15-2025 Radiology Diagnostic study note [facility] Imaging Services [address] [place] [address] Spine Cervical without Contras MR#: [id number] Acct: [id number] Name: GLENN PARADA DEV Rep #: [id number] : 1945 M 79 From: Zeb Alvarado MD PCP: Dr. Eloina Chi MD Status: REG ER Study:Spine Cervical without Contras Date of Exam: 12/26/24 Exam# [id number] Ordering Dr: Carlos Dennis MD PROCEDURE: SPINE [...] use of iterative reconstruction technique). Reading Location: [facility] CC: Dr. Carlos Dennis MD; Dr. Eloina Chi MD ~ Batter Out: Signed [facility]03-15-2025 Radiology Diagnostic study note [facility] Imaging Services [address] [place], [place] [address] Brain/Head without Contrast MR#: [id number] Acct: [id number] Name: GLENN PARADA DEV Rep #: [id number] : 1945 M 79 From: Zeb Alvarado MD PCP: Dr. Eloina Chi MD Status: REG ER Study:Brain/Head without Contrast Date of Exa m: 12/26/24 Exam# [id number] Ordering Dr: Carlos Dennis MD EXAM: BRAIN/HEAD [...] acute traumatic findings. Senescent changes. Reading Location: [facility] CC: Dr. Carlos Dennis MD; Dr. Eloina Chi MD ~ Batter Out: Signed [facility]12-22-2024 Evaluation note* Diagnosis Onset Date Resolution Status Admit Date Cat bite acute October 04, 2024 8:05am [facility] Work Phone: 1(193) 235-519112-09-2024 Instructions* Patient Instructions* Stephan Macario MD - 09/21/2024 5:05 PM EST Take an extra Sinemet 25/100 CR at bedtime. Decrease to propranolol to 10mg twice daily for one week then discontinue. Return to clinic in 6 months. documented in this encounterMarymount Hospital12-09-2024 NoteHNO ID: [id number] Author: AMISHA SARABIA MD Service: ? Author Type: Physician Type: Progress Notes Filed: 10/04/2024 19:14 Note Text: [facility] - FOLLOW UP EVALUATION Eloina Chi MD [address] [facility] [address] Dear Eloina Chi MD: I had the [...] Row Office Visit from 09/21/2024 in Neurological [facility] Office Visit from 06/25/2024 in [facility] [...] (2 mg) by mouth (more content not included)...[facility]12-09-20[facility] History of Present illness Narrative* Amisha Sarabia MD - 09/21/2024 4:00 PM EST [facility] - FOLLOW UP EVALUATION Eloina Chi MD [address] [facility] [address] [facility] [address] Dear Eloina Chi MD: I had the [...] Row Office Visit from 09/21/2024 in Neurological [facility] Office Visit from 06/25/2024 in Neurology Global [...] pathological reflexes: Crossed adductor present. Coordination Right: Qnssug-xs-qljy normal. Gtbg-nb-vjqx normal.Left: Xqbaxt-be-lxhy normal. Smsf-uq-njvh normal. Gait Casual gait is normal including [...] < 50 would be worse than predicted, [id number] would be near predicted and > 50 [...] components. I agree with impression and plan. Amisha Sarabia MD documented [facility] encounter[facility] Telephone encounter Note * Telephone Encounter - Jael Ch RN - 08/11/2024 11:29 AM EDT Spoke with nurse Naomi Davis, she discussed with Dr. Chi and received approval to wean down or discontinue propranolol. [facility] Miscellaneous Notes* Telephone Encounter - Jael [...] remain at the current dose - per Aries Sarabia Call to PCP, busy signal. Call to patient to confirm PCP information. No answer. Message left for return call. documented in this encounterMary[facility] Hospital10-28-2024 Telephone encounter Note * Telephone Encounter - Jael Ch RN - 08/10/2024 3:32 PM EDT Call to PCP to see if we can wean him down or off the propranolol since his blood pressure tends to be low and drop or is he on it for another reason and it should remain at the current dose - per Aries Sarabia Call to PCP, busy signal. Call to patient to confirm PCP information. No answer. Message left for return call. [facility]-17[facility] Instructions* Patient Instructions* Phoebe Chamberlain MD - 07/30/2024 2:32 PM EDT - Stop Motegrity. - No Linzess. - Stop Senna - Miralax twice per day; - If you have diarrhea, then decrease Miralax to once per day. - If you still have constipation, then increase Miralax to three times per day. - Use enema once every day. documented in this encounterMary[facility] Hospital10-17-2024 NoteHNO ID: [id number] Author: PHOEBE CHAMBERLAIN MD Service: ? Author Type: Physician [...] Future - CELIAC SCREEN WITH REFLEX; Future Phoebe Chamberlain MD DATE: 07/30/24 TIME: 1:56 [facility]10-17-2024 History of Present illness Narrative* Phoebe Chamberlain MD - 07/30/2024 1:53 PM EDT CHIEF COMPLAINT: Patient presents with: Second Opinion: Chronic constipation, previous patient Dr. Jeffery Elizabeth Luca Parada is a 79 year old male [...] Future - CELIAC SCREEN WITH REFLEX; Future Phoebe Chamberlain MD DATE: 07/30/24 TIME: 1:56 PM documented in this encounterMarymount Hospital09-12-2024 Instructions* Patient Instructions* Aries Sarabia APRN.CNP - 06/25/2024 4:05 PM EDT documented in this encounterMarymount Hospital09-12-2024 History of Present illness Narrative* Aries Sarabia APRN.CNP - 06/25/2024 4:00 PM EDT [facility] - FOLLOW UP EVALUATION Eloina Chi MD [address] [facility] [address] Dear Eloina Chi MD: I had the [...] as well as a recipe from the [facility]. Cognition: We will check a screening in the future At your convenience, please provide us with a copy of your advanced directives (living will and durable power of health safety engineer for healthcare): By Email: Send your document(s) to as an attachment in either PDF, TIFF, or JPEG format. By Mail: [facility] Information Management, Ab7 Advance Directive Processing [address] [place], [place] [address] By In person at any [facility] location Please note: You can use the address or fax number regardless of which [facility] you utilize, and we will make [...] to me they had tickets for the [employer] [facility] and needed to leave so [...] 5 mg 1 Level of service : 70226 ( 30-39 min). Time spent 34 min on the day of service, which included preparing to see the patient, aseu-we-ypxf patient care, completing clinical documentation, obtaining and/or reviewing separately obtained history, performing a medically appropriate examination, counseling and educating the patient/family/caregiver, and ordering medications, tests, or procedures. Aries Sarabia APRN.GARY documented in this encounterMarymount Hospital06-04-2024 Instructions* Patient Instructions* Aries Sarabia APRN.CNP - 03/17/2024 8:08 AM EDT [...] as well as a recipe from the [facility]. Cognition: We will check a screening in the future At your convenience, please provide us with a copy of your advanced directives (living will and durable power of health safety engineer for healthcare): By Email: Send your document(s) to as an attachment in either PDF, TIFF, or JPEG format. By Mail: [facility] Information Management, Ab7 Advance Directive Processing [address] [place], [place] [address] By In person at any [facility] location Please note: You can use the address or fax number regardless of which [facility] you utilize, and we will make sure it is filed appropriately. Movement Disorders Medication Schedule: Medications 6AM 1130AM 6PM 9PM Sinemet 25/100 CR 1 1 1 Propranolol 20 mg 1 1 Melatonin 5 mg 1 Return at or around: 06/17/24 If there are any concerns before your next visit, please call or you can send a message through [employer]. You can also now schedule and select appointments through [employer]. Aries Sarabia APRN.SR VICE PRESIDENT Constipation and Other Gastrointestinal Problems in Parkinson's [...] future constipation. Treatments fall into two categories: jihg-czu-qaagrkt and prescription therapies. Remember: consult with your [...] day and your own convenience and preference. Clfg-ywd-Aczwnzl Products Navx-tip-asnodbg treatments for constipation can be purchased at [...] It also comes as a capsule (Senna [place]iftwood Smooth Move ). ving with PD Constipation [...] easier to pass. These can be used senior living but should not be used in combination [...] after other remedies have failed. Among the wcvb-nfi-bgnyhhx laxatives, they are most likely to cause [...] psyllium (Perdiem ). Common Side Effects of Wsaj-kva-Krezeph Products for Constipation Emollient (Stool Softeners) Skin [...] any side effects listed. Prescription Products When eiut-boh-gajbfhk remedies fail, your healthcare provider may recommend [...] Stimulant X Bisacodyl (Dulcolax ) Stimulant X [place] Oil Stimulant X Cellulose (Unifiber ) Bulk [...] Docusate (Senokot ) Stimulant X Adapted from: [facility] Website, accessed February 07, 2016, [email or web address]/[email or web address]/druginformation/ [id number] Special Precautions For your safety, consult your [...] contact your health care provider. Contributing authors: Slavador Tafoya, Ph.D., R.N., and Danna Teran.Margaret., C.R.N.P. Constipation Tracker Day/Date Time Food(s) Eaten Activities Emotional Status Stool Description Feel free to photocopy this page and use it throughout the year to track your symptoms and share with your doctor. This is a patient education material provided by the Parkinson s [employer]. For more information and resources see https://www.parkinson.org/. [facility] is a Center of Excellence for the Parkinson s Foundation. documented in this encounterMarymount Hospital06-04-2024 History of Present illness Narrative* Aries Sarabia APRN.SR VICE PRESIDENT - 03/17/2024 8:00 AM EDT [facility]EMENT DISORD[facility] [...] as well as a recipe from the [facility] that often works as well in [...] well as a recipe from the [facility]. Cognition: We will check a screening in the future At your convenience, please provide us with a copy of your advanced directives (living will and durable power of health safety engineer for healthcare): By Email: Send your document(s) to [email or web address] as an attachment in either PDF, TIFF, or JPEG format. By Mail: [facility] Information Management, Ab7 Advance Directive Processing [address] [place], [place] [address] By In person at any [facility] location Please note: You can use the address or fax number regardless of which [facility] you utilize, and we will make sure it is filed appropriately. Updated Movement Disorders Medication Schedule: Medications 6AM 1130AM 6PM 9PM Sinemet 25/100 CR 1 1 1 Propranolol 20 mg 1 1 Melatonin 5 mg 1 Return at or around: 06/17/24 Level of service : 74919 (40-54 min). Time spent 41 min on the day of service, which included preparing to see the patient, hgwm-hw-kxpy patient care, completing clinical documentation, obtaining and/or reviewing separately obtained history, performing a medically appropriate examination, counseling and educating the patient/family/caregiver, and ordering medications, tests, or procedures. Aries Sarabia APRN.SR VICE PRESIDENT documented in this encounterMarymount Hospital03-07-2024 Instructions* Patient Instructions* Amisha Sarabia MD - 12/19/2023 2:39 PM EST [...] or you can send a message through [employer]. You can also now schedule and select appointments through [employer]. Amisha Sarabia MD documented in this encounterMarymount Hospital03-07-2024 History of Present illness Narrative* Amisha Sarabia MD - 12/19/2023 2:15 PM EST [facility] - NEW PATIENT EVALUATION I had the pleasure of evaluating Mr. Parada in our clinic today. He is a 78 year old right-handed male who presents for evaluation of Parkinson's disease since 2021. Subjective HISTORY OF PRESENT ILLNESS: Initial HPI He just moved from [place], [place]. He started with shuffling gait and tremor in left hand and he was stated on on propranol which helped some with the tremor. He was better when the carbidopa/levodopa. He did some LSVT PT in [place] which has helped. He has not had [...] Exercise: Last PT Date: Last OT Date: Date: Exercises Regularly: Yes ALLERGIES No Known [...] Right Plantar: downgoing Left Plantar: downgoing Coordination Aguujv-sj-boqp, rapid alternating movements and yzej-sg-weth normal bilaterally without dysmetria. Gait Casual gait: [...] hesitate to call with any questions. Sincerely, Amisha Sarabia MD documented in this encounterMary[facility] HospitalCons[facility] note Author Ginny Holm [facility] Note Date/Time June 30, 2025 9:59am [facility] Medical Records Department [address] [place] [address] Anesthesia Postop Eval I 06/30/25958 MR#: [id number] Acct: [id number] Name: GLENN PARADA DEV Rep #:[id number] : 1945 80 From: Ginny rehman CRNA PCP: Dr. Eloina Chi MD Status:REG SD C Y Race: C Location: [place] [address] Anesthesia: Postop Eval I Current Vital Signs Temperature: 97.2 F Pulse Rate: 101 Blood Pressure: 98/63 Respiratory Rate: 18 Pulse Ox: 94 Oxygen Delivery Method: Room Air Assessment Airway patent: Yes Spontaneous unlabored respirations: Yes Mental status: Calm nausea: No Vomiting: No Anesthesia Complication: No Fluid Hydration Crystalloid volume administer (ml): 1,200 Total IV fluid infused: 1,200 Progress Note Anesthesia document: Postop Eval 1 completed: Yes 06/30/25958 <Electronically signed by Ginny Upton ace, CRNA> Date _ Ginny Holm CRNA Cosigner Signature: Date CC: ~ Signed [facility] Work Phone: Consult note Author Julia Carter [facility] Note Date/Time July 30, 2025 8 :57pm [facility] Medical Records Department [address] [place] [address] Pharmacokinetic/Renal -Consult 07/30/252054 MR#: [id number] Acct: [id number] Name: GLENN PARADA DEV Rep #:[id number] : 1945 80 From: Julia Carter PCP: Dr. Eloina Chi MD Status:ADM IN Y Location: ICU CVICU20 3-1 Consult Antibiotic Management Pharmacy has been consulted to manage selected antibiotic: Vancomycin Type of Intervention Type of Consult: New start Suspected Infection Suspected Infection: Other (ENCEPHALAPATHY) Prior Doses of Antibiotics Prior Doses of Antibiotics Received/Current Regimen: 1750 MG X1 750 MG Q12H Labs Labs: Sodium 133 mmol/L (133-145) 07/30/25 16:04 Potassium 3.4 mmol/L (3.3-5.1) 07/30/25 16:04 Chloride 97 mmol/L (98-108) L 07/30/25 16:04 Carbon Dioxide 25.3 mmol/L (21.0-32.0) 07/30/25 16:04 Anion Gap 10 (5-15) 07/30/25 16:04 BUN 22 mg/dL (4-19) H 07/30/25 16:04 Creatinine 0.81 mg/dL (0.70-1.20) 07/30/25 16:04 Est GFR (MDRD) Non-Af 88 (>60) 07/30/25 16:04 BUN/Creatinine Ratio 26.7 RATIO (10-20) H 07/30/25 16:04 Glucose 110 mg/dL (70-99) H 07/30/25 16:04 Dosing Weight Weight used for dosin.8 kg Estimated Creatinine Clearance Estimated Creatinine Clearance: 69.2 ML/LA Pharmacy Plan for Drug Dosing Pharmacy Plan for Drug Dosing: NEW START IV VANCOMYCIN Consulting Physician: Aileen Indication: Encephalopathy Goal Trough: 15-20 SrCr: 0.81 mg/dL CrCl: 69.2 ml/min Vancomycin Dose: 1x 1750 mg, and 750 mg q12h Pending Level:08/01/2025 @0600 Pharmacy Service will continue to monitor and adjust dosing as required. Follow-Up Labs Follow-Up Labs: Trough: Vancomycin Date/Time Labs Ordered Labs to be done on [date and time ordered]: 08/01/2025 @0600 07/30/252056 <Electronically signed by Julia hernandez> Date _ Julia Carter Cosigner Signature (if applicable): Date CC: ~ Signed [facility] Work Phone: Consult note Author Smooth Fall [facility] Note Date/Time July 31, 2025 7 :46am [facility] Medical Records Department [address] [facility] [place] [address] Consultation - Mental Hygienist 07/31/25 0328 MR#: [id number] Acct: [id number] Name: GLENN PARADA DEV Rep #:[id number] : 1945 80 From: Smooth Fall MD PCP: Dr. Eloina Chi MD Status:ADM IN Location: ICU CVICU 3-1 HPI Consult Data Date of Consult: 07/31/25 HPI Narrative HPI Narrative: Mr. 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 He received chemotherapy and radiation four days ago and presented to the ED with confusion, tachycardia, and fever. Initial evaluation showed: Hemoglobin 10.7 g/dL, hematocrit 31.5%, WBC 1.0 ?10?/L with ANC 0.5, Platelets unmeasurable, Anion gap 10, UA negative, CXR without acute findings. He was diagnosed with acute febrile neutropenia secondary to recent chemotherapy. Empiric vancomycin and piperacillin-tazobactam were started, and blood cultures obtained. He received 3 L of IV fluids for initial tachycardia and mild hypotension. During evaluation, D-dimer was markedly elevated CTA chest revealed acute segmental pulmonary emboli in the right lower lobe. Therapeutic enoxaparin was initiated. He also received granulocyte colony-stimulating factor for neutropenia. He subsequently became briefly agitated/confused, removed his port access, whichwas re-accessed successfully. [facility] Medical History Encounter for education Wears glasses Cancer Alcohol [...] Cardiology follow-up encounter Celiac disease Home Medications ?Medication ?Instructions ?Recorded ?Last Taken ?Type levothyroxine 50 mcg tablet 50 mcg PO QDAY 03/05/24 History omeprazole 40 mg capsule,delayed 40 mg PO QDAY 4 06/30/25 History release tamsulosin 0.4 mg capsule 0.4 mg PO BID 03/05/2406/30 History prucalopride 2 mg tablet 2 mg PO DAILY 05/09/2406/30 History (Motegrity) carbidopa ER 25 mg-levodopa 100 mg 1 tab PO .qid 06/1006/30/25 History tablet,extended release fludrocortisone 0.1 mg tablet 0.1 mg PO QDAY 06/17/25 06/30/25 History lidocaine-prilocaine 2.5 %-2.5 % 1 applic topical ONCE PRN port 06/28/25 Unknown Rx topical cream access 30 days #30 grams ondansetron 8 mg disintegrating 8 mg PO Q8H PRN nausea and 06/28/25 Unknown Rx tablet vomiting #30 tabs MAGIC MOUTH WASH (BMX) 180 mL 15 ml PO .qid PRN pain # 180 mL 07/07/25 Unknown Rx suspension sodium chloride 1,000 mg soluble 1,000 mg PO QD-QID MS N electrolyte 07/26/25 Unknown Rx tablet replenishment #30 tabs guaifenesin 100 mg/5 mL oral 200 mg (10 mL) PO Q4H PRN 07/28/25 Unknown Rx liquid (Guaifed (guaifenesin)) congestion #500 mL sennosides 8.6 mg tablet (Shari-rocco) 8.6 mg PO PRN 07/14 05/07 Unknown History Allergy/AdvReac Type Severity Reaction Status Date / Time gluten Allergy Abd Verified 07/30/25 16:17 cramps/diarrhea aripiprazole AdvReac unknown Verified 07/30/25 16:17 haloperidol AdvReac unknown Verified 07/30/25 16:17 metoclopramide AdvReac unknown Verified 07/30/25 16:17 olanzapine AdvReac unknown Verified 07/30/25 16:17 prochlorperazine AdvReac unknown Verified 07/30/25 16:17 promethazine AdvReac unknown Verified 07/30/25 16:17 Family History Brother Cancer THROAT Mother Leukemia Sister Breast cancer Surgical History Hx of right cataract extraction Hx of left cataract extraction Hx of eye surgery History of hydrocelectomy Hx of hernia repair Hx of colonoscopy Social History household members: significant other housing: house current occupational status: retired Smoking Status: Former smoker alcohol intake: never substance use type: does not use ROS ROS Narrative General: Fatigue, confusion, fever. HEENT: History of throat cancer; no active bleeding or dysphagia reported. Cardiac: No chest pain or syncope. Respiratory: Mild dyspnea; stable on 2 L O2; no cough or hemoptysis. GI: No abdominal pain, nausea, or diarrhea reported. : No dysuria; urinalysis negative. Neuro: Confusion, brief agitation; no focal deficits. Skin: No rash or lesions. Endocrine: Hypothyroid, possibly adrenally insufficient. Objective Data Objective Data Vital Signs: Vital Signs Last response 3 Temperature 36.4 C L 07/31/25 03:00 Temperature Source Core 07/31/25 03:00 Pulse Rate 76 07/31/25 03:00 Pulse Strength Weak (1+) 07/30/25 21:11 Respiratory Rate 11 L 07/31/25 03:00 Respiratory Effort Normal, Non-Labored 07/31/25 00:00 Respiratory Depth Normal 07/31/25 00:00 Respiratory Pattern Normal 07/31/25 00:00 Blood Pressure 119/72 07/31/25 03:00 Blood Pressure Mean 87 07/31/25 03:00 Blood Pressure Source Monitor 07/31/25 03:00 Blood Pressure Position Semi-Fowlers 07/31/25 03:00 Blood Pressure Location Right Arm 07/31/25 03:00 Pulse Ox 99 07/31/25 03:00 Oxygen Delivery Method Nasal Cannula 07/31/25 03:00 Oxygen Flow Rate (L/min) 2 07/31/25 03:00 I&O: I&O Last 24 Hours 3 07/30/25 07/30/25 07/31/25 11:59 23:59 11:59 Intake Total 3534.25 / 3584.25 50 / 50 Output Total 350 / 1900 1550 / 1550 Balance 3184.25 / 1684.25 -1500 / -1500 I&O: Total Stay 3 07/30/25 16:15 thru 07/31/25 00:00 Intake Total 3584.25 Output Total 1900 Balance 1684.25 Current Meds Ordered / Administered: Current meds ordered / Administered 3 Generic Name Dose Route Start Last Admin Trade Name Freq PRN Reason Stop Dose Admin Carbidopa/Levodopa 1 tablet 07/31/25 00:00 07/30/25 23:55 Carbidopa/Levodopa 25/100 Tablet PO 1 tablet 0000,0600,1200,2000 KRISHAN Administration Clarify Med Order 1 each 07/30/25 21:45 07/31/25 00:03 Clarify Order NOTE Not Given CLARIFY KRISHAN Enoxaparin Sodium 70 mg 07/31/25 01:00 07/31/25 01:46 Enoxaparin 80 Mg/0.8 Ml Syringe SC 70 mg Q12@0600,1800 KRISHAN Administration Fludrocortisone Acetate 0.1 mg 07/30/25 20:30 07/30/25 21:27 Fludrocortisone Acetate 0.1 Mg Tablet PO 0.1 mg DAILY KRISHAN Administration Guaifenesin 10 ml 07/30/25 20:30 Guaifenesin 10 Ml Udc (200mg/10ml) PO Q4H PRN CONGESTION Sodium Chloride 1,000 mls @ 150 mls/hr 07/30/25 20:30 07/30/25 21:01 IV 07/31/25 09:49 150 mls/hr .Q6H40M KRISHAN Administration Vancomycin IV-PHARMACY TO DOSE 500 mls @ 250 mls/hr 07/30/25 20:30 1 each/ Sodium Chloride IV X1 PRN Rx to Dose Protocol Piperacillin Sod/Tazobactam 50 mls @ 12.5 mls/hr 07/31/25 06:00 Sod 3.375 gm/ Sodium Chloride IV Q8 KRISHAN Sodium Chloride 250 mls @ 15 mls/hr 07/30/25 20:31 IV .[id number] PRN Saline Flush Sodium Chloride 250 mls @ 15 mls/hr 07/30/25 20:31 IV .[id number] PRN Additional IVPB Infusion Vancomycin HCl 750 mg/ Sodium 265 mls @ 250 mls/hr 07/31/25 06:30 Chloride IV Q12H [facility] Levothyroxine Sodium 50 mcg 07/31/25 06:00 Levothyroxine 50 Mcg Tablet PO DAILY@0600 [facility] Lidocaine/Diphenhydr/Alum/Mg/Simeth 15 ml 07/30/25 20:44 Bmx Liquid 180 Ml PO 4X/DAY PRN PRN Pain Score 1-10 Lidocaine/Prilocaine 1 gm 07/30/25 20:42 Lidocaine/Prilocaine Hcl 5 Gm Tube TOPICAL X1 PRN PORT ACCESS Protocol Nitroglycerin 0.4 mg 07/30/25 20:30 Nitroglycerin (Inpatient Use) 0.4 Mg Tab.Subl SL Q5M PRN CARDIAC/CHEST PAIN Non-Formulary Medication 2 mg 07/31/25 10:00 Prucalopride [Motegrity] PO DAILY [facility] Ondansetron HCl 4 mg 07/30/25 20:30 Ondansetron 4 Mg/2 Ml Vial IV Q8H PRN PRN NAUSEA/VOMITING Pantoprazole Sodium 40 mg 07/30/25 20:30 07/30/25 21:26 Pantoprazole Sodium 40 Mg Tablet PO 40 mg DAILY [facility] Administration Senna 1 tablet 07/30/25 20:30 Senna Tablet PO DAILY PRN PRN Constipation Sodium Chloride 1 gm 07/30/25 20:30 Sodium Chloride 1 Gm Tablet PO 4X/DAY PRN PRN electrolyte replenishment Sodium Chloride 10 - 40 ml 07/30/25 20:31 07/31/25 01:46 0.9% Saline Lock 10 Ml Syringe IV 10 ml UD PRN Administration SALINE FLUSH Tamsulosin HCl 0.4 mg 07/30/25 22:00 07/30/25 20:53 Tamsulosin Hcl 0.4 Mg Capsule PO Not Given BID [facility] Vancomycin Protocol 1 lab 08/01/25 05:00 Vancomycin Trough/Random Due 08/01/25 07:00 DAILY KRISHAN Physical Exam Narrative General: Elderly, frail male; mildly confused but redirectable; non-toxic. HEENT: Mucous membranes moist; post-radiation neck changes likely. CV: Regular rate and rhythm; no murmurs. Resp: Clear to auscultation; non-labored on 2 L O2 Abdomen: Soft, non-tender, non-distended. Extremities: No edema or cyanosis. Neuro: Awake, oriented ?2, mild confusion; moves all extremities. Skin: Warm, dry; no rash. Access: Port-a-cath re-accessed; site clean. Lab / Micro Data 07/31/25 03:45 07/31/25 03:45 Labs: Laboratory Results - last 24 hr 07/30/25 16:04: WBC 1.0 L*, RBC 3.59 L, Hgb 10.7 L, Hct 31.5 L, MCV 87.7, MCH 29.8, MCHC 34.0, RDW Std Deviation 43.3, RDW Coeff of Macho 13.6, Plt Count TNP, MPV TNP, Immature Gran % (Auto) 0.000, Neut % (Auto) 45.1 L, Lymph % (Auto) 45.1 H, [place] % (Auto) 7.8, Eos % (Auto) 0.0, Baso % (Auto) 2.0 H, Absolute Neuts (auto) 0.5 L, Absolute Lymphs (auto) 0.46 L, Nucleated RBC % 0, Diff Path Review February, PT 13.8, INR 1.0, APTT 30.3, Sodium 133, Potassium 3.4, Chloride 97 L, Carbon Dioxide 25.3, Anion Gap 10, BUN 22 H, Creatinine 0.81, Estim Creat Clear Calc 69.20, Est GFR (MDRD) Non-Af 88, BUN/Creatinine Ratio 26.7 H, Glucose 110 H, Calcium 8.1, Total Bilirubin 0.66, AST 26, ALT 8, Alkaline Phosphatase 58, Total Protein 5.9, Albumin 3.4, Globulin 2.6, Albumin/Globulin Ratio 1.3 07/30/25 16:23: Lactic Acid < 1.0 07/30/25 18:51: Urine Color Straw, Urine Clarity Clear, Urine pH 7.0, Ur Specific [place] 1.010, Urine Protein Negative, Urine Glucose (UA) Normal, Urine Ketones 5 H, Urine Occult Blood 10 H, Urine Nitrite Negative, Urine Bilirubin Negative, Urine Urobilinogen Normal, Ur Leukocyte Esterase Negative, Urine RBC 0-5 SEEN, Urine WBC 0-5 SEEN, Ur Squamous Epith Cells 0-5 SEEN, Urine Bacteria 0 SEEN, Urine Mucus 0 SEEN 07/30/25 20:44: D-Dimer Quant (PE/DVT) 7.44 H* 07/30/25 20:54: MRSA (PCR) Negative Micro: Microbiology 07/30/25 21:57 Mucosa - Nasopharyngeal Respiratory Panel (PCR) - Final Imaging Radiology Impression Chest X-Ray 07/30/25 18:25 IMPRESSION: No Acute Findings. Reading Location: [facility] Chest CTA 07/30/25 22:16 IMPRESSION: Right lower lobe segmental branches pulmonary emboli. No evidence of large central or massive pulmonary embolus. No evidence of cardiac strain. Minimal bilateral pleural effusions. Passive atelectatic airspace disease in the lower lobes. Mild interstitial pulmonary congestion. Right Port-A-Cath is in good position. Mild cardiomegaly. Small sliding hiatal hernia. Left renal simple cyst measuring 3.5 cm. Chronic deformity of the posterior arch of the left 11th rib. I discussed the findings with NIGEL Natarajan in the ICU at 12:33 a.m. EST. Reading Location: [place] [address] Assessment and Plan . Assessment and plan: Febrile Neutropenia secondary to chemotherapy * Continue broad-spectrum coverage: Vancomycin + Piperacillin-Tazobactam per ID/oncology guidance. * Continue Granix daily until ANC > 1.0 ?10?/L. * Blood cultures ?2, urine culture, CXR already obtained. * Monitor vitals q2h, fever curve, and hemodynamics. * Maintain neutropenic precautions. * Daily CBC and BMP. * Avoid rectal temps, IM injections. Acute Pulmonary Embolism * Continue therapeutic enoxaparin * Monitor for bleeding * Consider IVC filter if platelets drop <30k or if bleeding risk high. Chemotherapy-Induced Cytopenias * Monitor CBC daily; transfuse: * PRBC if Hgb < 7 g/dL, * Platelets if < 10k * Coordinate with oncology for chemotherapy hold. Metastatic Oropharyngeal Cancer * Continue chemoradiation per oncologic schedule if stabilized. * Oncology consult for timing of next cycle and prognosis. Hypothyroidism / Possible Adrenal Insufficiency * Continue levothyroxine. * Continue fludrocortisone; consider hydrocortisone stress dosing if hypotensive or septic physiology develops. Dementia / Parkinsonism * Continue carbidopa-levodopa. * Supportive environment; minimize restraints, sedatives. GERD * Continue PPI; avoid aspiration risk. Fluid and Electrolyte Management * IVF as needed; now euvolemic after 3 L boluses. * Strict I/O; daily weights. DVT/GI Prophylaxis * Therapeutic anticoagulation already in place. * PPI for GI protection. Disposition * Continue ICU for close monitoring of neutropenic fever, PE anticoagulation, and cytopenia management. 07/31/25 0746 <Electronically signed by Smooth Fall MD> Cosigner Signature (if applicable): CC: Dr. Eloina Chi MD~ Signed [facility] Work Phone: Consult note Author Brady Longoria [facility] Note Date/Time August 04, 2025 1 :07pm [facility] Medical Records Department [address] [place] [id number] Pharmacokinetic/Renal -Consult 08/01/25 1034 MR#: [id number] Acct: [id number] Name: GLENN PARADA DEV Rep #:[id number] : 1945 80 From: Brady Aparicio [facility] PCP: Dr. Eloina Chi MD Status:ADM IN Y Location: ICU CVICU20 3-1 Consult Antibiotic Management Pharmacy has been consulted to manage selected antibiotic: Vancomycin Type of Intervention Type of Consult: Follow-up Suspected Infection Suspected Infection: Other Labs Labs: Sodium 135 mmol/L (133-145) 08/01/25 04:10 Potassium 2.6 mmol/L (3.3-5.1) L* 08/01/25 04:10 Chloride 101 mmol/L (98-108) 08/01/25 04:10 Carbon Dioxide 23.7 mmol/L (21.0-32.0) 08/01/25 04:10 Anion Gap 10 (5-15) 08/01/25 04:10 BUN 12 mg/dL (4-19) 08/01/25 04:10 Creatinine 0.72 mg/dL (0.70-1.20) 08/01/25 04:10 Est GFR (MDRD) Non-Af 92 (>60) 08/01/25 04:10 BUN/Creatinine Ratio 16.7 RATIO (10-20) 08/01/25 04:10 Glucose 106 mg/dL (70-99) H 08/01/25 04:10 Vancomycin Trough 9.0 ug/mL (5.0-15.0) 08/01/25 06:10 Microbiology Microbiology: Microbiology 07/30/25 18:51 Urine, Clean Catch Urine Culture - Preliminary Culture exhibits no growth. 07/30/25 21:57 Mucosa - Nasopharyngeal Respiratory Panel (PCR) - Final Goal Trough Goal Trough: 15-20 mcg/mL Pharmacy Plan for Drug Dosing Pharmacy Plan for Drug Dosing: VANCOMYCIN LEVEL RECEIVED Current Vancomycin Dose: 750mg q12h (0630,1830) Number of Doses Received: x1 1750mg ER dose, x2 750mg doses Vancomycin Level: 9 (drawn 08/01 at 0610) Hours Since Last Dose: 10 hours since last 750mg dose on 07/31 at 2005 Renal Function: SrCr 0.72 Renal Function Trend: SrCr improving (was 0.81 on 07/30) Lab/Micro: Vancomycin Plan/Comments: resulted trough of 9 is below the ordered goal trough range of 15-20. recommend increasing dose to 1000mg q12h and checking a trough prior to the 4th dose Pending Level: 08/02/25 at 2030 Pharmacy Service will continue to monitor and adjust dosing as required. Follow-Up Labs Follow-Up Labs: Trough: Vancomycin (08/02/25 at 2030) 08/01/25 1034 <Electronically signed by Brady Salmeron [facility]> Date _ Brady Longoria [facility] Cosigner Signature (if applicable): Date CC: ~ Signed [facility] Work Phone: Consult note Author Simone Collins [facility] Note Date/Time August 02, 2025 2 :01pm [facility] [address] [place] [address] Consultation - Oncology IP 08/02/25 1339 MR#: [id number] Acct: [id number] Name: GLENN PARADA DEV Rep #:[id number] : 1945 80 From: Simone Collins MD PCP: Dr. Eloina Chi MD Status:ADM IN Location: ICU CVICU20 3-1 Assessment & Plan Assessment/Plan (1) Neutropenia with fever: Status: Acute Code(s): D70.9 - Neutropenia, unspecified; R50.81 - Fever presenting with conditions classified elsewhere Plan: Neutropenic fever has resolved. Discussed further management with patient, he will continue chemotherapy as outpatient. Suggest continue current management. Once patient is stable and discharge, willfollow as outpatient for further management. HPI Consult Data Date of Service:: 08/02/25 PCP / Referring Provider: Eloina Chi MD Attending: Dr. 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 He was on treatment with weekly chemotherapy?Taxol carbo and radiation therapy. Hegot cycle 4 weekly on 07/26/2025. He developed fever on 07/30/2025, came to the ER and was found to have neutropenic fever with ANC 0.5. He was started on broad-spectrum antibiotics with G-CSF. He has improved remarkably and ANC is now 1.3. Advanced Directives Do you have a Healthcare Power of [employer]?: Yes [facility] Medical History Encounter for education Wears glasses Cancer Alcohol [...] Cardiology follow-up encounter Celiac disease Home Medications ?Medication ?Instructions ?Recorded ?Last Taken ?Type levothyroxine 50 mcg tablet 50 mcg PO QDAY 03/05/24 History omeprazole 40 mg capsule,delayed 40 mg PO QDAY 4 06/30/25 History release tamsulosin 0.4 mg capsule 0.4 mg PO BID 03/05/2406/30 History prucalopride 2 mg tablet 2 mg PO DAILY 05/09/2406/30 History (Motegrity) carbidopa ER 25 mg-levodopa 100 mg 1 tab PO .qid 06/1006/30/25 History tablet,extended release fludrocortisone 0.1 mg tablet 0.1 mg PO QDAY 06/17/25 06/30/25 History lidocaine-prilocaine 2.5 %-2.5 % 1 applic topical ONCE PRN port 06/28/25 Unknown Rx topical cream access 30 days #30 grams ondansetron 8 mg disintegrating 8 mg PO Q8H PRN nausea and 06/28/25 Unknown Rx tablet vomiting #30 tabs MAGIC MOUTH WASH (BMX) 180 mL 15 ml PO .qid PRN pain # 180 mL 07/07/25 Unknown Rx suspension sodium chloride 1,000 mg soluble 1,000 mg PO QD-QID MS N electrolyte 07/26/25 Unknown Rx tablet replenishment #30 tabs guaifenesin 100 mg/5 mL oral 200 mg (10 mL) PO Q4H PRN 07/28/25 Unknown Rx liquid (Guaifed (guaifenesin)) congestion #500 mL sennosides 8.6 mg tablet (Shari-rocco) 8.6 mg PO PRN 07/14 05/07 Unknown History Allergy/AdvReac Type Severity Reaction Status Date / Time gluten Allergy Abd Verified 07/30/25 16:17 cramps/diarrhea aripiprazole AdvReac unknown Verified 07/30/25 16:17 haloperidol AdvReac unknown Verified 07/30/25 16:17 metoclopramide AdvReac unknown Verified 07/30/25 16:17 olanzapine AdvReac unknown Verified 07/30/25 16:17 prochlorperazine AdvReac unknown Verified 07/30/25 16:17 promethazine AdvReac unknown Verified 07/30/25 16:17 Family History Brother Cancer THROAT Mother Leukemia Sister Breast cancer Surgical History Hx of right cataract extraction Hx of left cataract extraction Hx of eye surgery History of hydrocelectomy Hx of hernia repair Hx of colonoscopy Social History household members: significant other housing: house current occupational status: retired Smoking Status: Former smoker alcohol intake: never substance use type: does not use Physical Exam Narrative ECOG 1 Const alert, oriented x3 and no apparent distress HEENT normocephalic HEENT Narrative: +thick saliva in mouth Eyes conjunctivae normal and no scleral icterus Neck Neck Narrative: +L upper jugular node resolved. Chest Chest Narrative: +Port R IC area. Resp clear to auscultation bilaterally Cardio regular rate, regular rhythm, S1 normal heart sound and S2 normal heart sound GI soft to palpation and non-tender GI Narrative: +PEG tube. no CVA tenderness Back/Spine thoracic and lumbar spine normal to inspection Extremity no clubbing, cyanosis or edema Skin no rashes or lesions noted Neuro oriented x3, CN's II-XII intact bilaterally and moves all extremities Neuro Narrative: gait slow. Psych mental status grossly normal Vital Signs Temperature 99.7 F H 08/02/25 12:00 Temperature Source Oral 08/02/25 12:00 Pulse Rate 94 08/02/25 12:00 Pulse Strength Weak (1+) 08/02/25 10:00 Respiratory Rate 13 08/02/25 12:00 Respiratory Effort Normal, Non-Labored 08/02/25 08:00 Respiratory Depth Shallow 08/02/25 02:00 Respiratory Pattern Normal 08/02/25 02:00 Blood Pressure 103/61 08/02/25 12:00 Blood Pressure Mean 75 08/02/25 12:00 Blood Pressure Source Monitor 08/02/25 12:00 Blood Pressure Position Sitting 08/02/25 12:00 Blood Pressure Location Right Arm 08/02/25 12:00 Pulse Ox 95 08/02/25 12:00 Oxygen Delivery Method Room Air 08/02/25 12:00 Oxygen Flow Rate (L/min) 2 07/31/25 07:00 Laboratory Results - last 24 hr 08/02/25 03:20: WBC 2.3 L, RBC 2.98 L, Hgb 8.8 L, Hct 25.4 L, MCV 85.2, MCH 29.5, MCHC 34.6, RDW Std Deviation 41.4, RDW Coeff of Macho 13.4, Plt Count 129 L,MPV 10.1, Immature Gran % (Auto) 1.300 H, Neut % (Auto) 56.1, Lymph % (Auto) 18.7 L, [place] % (Auto) 19.6 H, Eos % (Auto) 1.7, Baso % (Auto) 2.6 H, Absolute Neuts (auto) 1.3 L, Absolute Lymphs (auto) 0.43 L, Nucleated RBC % 0, Differential Comment SCANNED, Sodium 136, Potassium 2.9 L, Chloride 103, Carbon Dioxide 24.6, Anion Gap 8, BUN 13, Creatinine 0.80, Estim Creat Clear Calc 70.06, Est GFR (MDRD) Non-Af 89, BUN/Creatinine Ratio 15.9, Glucose 111 H, Calcium 7.3 L, Total Bilirubin 0.48, AST 16, ALT 6, Alkaline Phosphatase 47, Total Protein 4.7 L, Albumin 2.6 L, Globulin 2.1 L, Albumin/Globulin Ratio 1.2 Microbiology 08/02/25 09:59 Nasal Secretion MRSA (PCR) - Final 07/30/25 18:51 Urine, Clean Catch Urine Culture - Final Culture exhibits no growth. 07/30/25 18:25 Blood Culture (Wb) - Venous Blood Culture - Preliminary No growth in 48 hours. 07/30/25 16:23 Blood Culture (Wb) - Line Draw Blood Culture - Preliminary No growth in 48 hours. Diagnostic Data Chest X-Ray 07/30/25 18:25 IMPRESSION: No Acute Findings. Reading Location: [facility] Chest CTA 07/30/25 22:16 IMPRESSION: Right lower lobe segmental branches pulmonary emboli. No evidence of large central or massive pulmonary embolus. No evidence of cardiac strain. Minimal bilateral pleural effusions. Passive atelectatic airspace disease in the lower lobes. Mild interstitial pulmonary congestion. Right Port-A-Cath is in good position. Mild cardiomegaly. Small sliding hiatal hernia. Left renal simple cyst measuring 3.5 cm. Chronic deformity of the posterior arch of the left 11th rib. I discussed the findings with NIGEL Natarajan in the ICU at 12:33 a.m. EST. Reading Location: [place] [address] 08/02/25 1401 <Electronically signed by Simone Collins MD> CC: Dr. Eloina Chi MD ~ Signed [facility] Work Phone: Consult note Author Alan Galaviz [facility] Note Date/Time August 02, 2025 3 :49pm [facility] Medical Records Department [address] [place] [address] Consultation - Infectious Dx 08/02/25 1546 MR#: [id number] Acct: [id number] Name: GLENN PARADA DEV Rep #:[id number] : 1945 80 From: Alan aldrich MD PCP: Dr. Eloina Chi MD Status:ADM IN Location: ICU CVICU20 3-1 Assessment & Plan Assessment/Plan (1) Neutropenia with fever: PLAN: Workup neg. ANC recovered, fever resolved. On vanc/zosyn, plan on 3 dayspo augmentin 875mg bid at discharge. Will follow, thank you HPI Consult Data Date of Consult: 08/02/25 HPI Narrative Reason for Consultation: neutropenic fever HPI Narrative: GLENN PARADA, is a 80 M with oropharyngeal cancer, on chemo and radiation, has R chest port. Developed fever 07/30 with shakes, came to ED admitted on vanc/zosyn and given GCSF. Feeling better. No sick contacts, no issues with port, no cough or SOB, no abd pain, no n/v/d, no rash, no dysuria. Full ROS performed and neg except as noted above. [facility] Medical History Encounter for education Wears glasses Cancer Alcohol [...] Cardiology follow-up encounter Celiac disease Home Medications ?Medication ?Instructions ?Recorded ?Last Taken ?Type levothyroxine 50 mcg tablet 50 mcg PO QDAY 03/05/24 History omeprazole 40 mg capsule,delayed 40 mg PO QDAY 4 06/30/25 History release tamsulosin 0.4 mg capsule 0.4 mg PO BID 03/05/2406/30 History prucalopride 2 mg tablet 2 mg PO DAILY 05/09/2406/30 History (Motegrity) carbidopa ER 25 mg-levodopa 100 mg 1 tab PO .qid 06/1006/30/25 History tablet,extended release fludrocortisone 0.1 mg tablet 0.1 mg PO QDAY 06/17/25 06/30/25 History lidocaine-prilocaine 2.5 %-2.5 % 1 applic topical ONCE PRN port 06/28/25 Unknown Rx topical cream access 30 days #30 grams ondansetron 8 mg disintegrating 8 mg PO Q8H PRN nausea and 06/28/25 Unknown Rx tablet vomiting #30 tabs MAGIC MOUTH WASH (BMX) 180 mL 15 ml PO .qid PRN pain # 180 mL 07/07/25 Unknown Rx suspension sodium chloride 1,000 mg soluble 1,000 mg PO QD-QID MS N electrolyte 07/26/25 Unknown Rx tablet replenishment #30 tabs guaifenesin 100 mg/5 mL oral 200 mg (10 mL) PO Q4H PRN 07/28/25 Unknown Rx liquid (Guaifed (guaifenesin)) congestion #500 mL sennosides 8.6 mg tablet (Shari-rocco) 8.6 mg PO PRN 07/14 05/07 Unknown History Allergy/AdvReac Type Severity Reaction Status Date / Time gluten Allergy Abd Verified 07/30/25 16:17 cramps/diarrhea aripiprazole AdvReac unknown Verified 07/30/25 16:17 haloperidol AdvReac unknown Verified 07/30/25 16:17 metoclopramide AdvReac unknown Verified 07/30/25 16:17 olanzapine AdvReac unknown Verified 07/30/25 16:17 prochlorperazine AdvReac unknown Verified 07/30/25 16:17 promethazine AdvReac unknown Verified 07/30/25 16:17 Family History Brother Cancer THROAT Mother Leukemia Sister Breast cancer Surgical History Hx of right cataract extraction Hx of left cataract extraction Hx of eye surgery History of hydrocelectomy Hx of hernia repair Hx of colonoscopy Social History household members: significant other housing: house current occupational status: retired Smoking Status: Former smoker alcohol intake: never substance use type: does not use Physical Exam Const alert, oriented x3 and no apparent distress General Appearance: cooperative HEENT normocephalic and head/scalp atraumatic Eyes PERRL and EOMs intact bilaterally Neck supple and No nodes Resp normal air movement and clear to auscultation bilaterally Cardio regular rate and regular rhythm GI soft to palpation, non-tender and non-distended Extremity General Extremity: Negative for edema Skin no rashes or lesions noted Skin Narrative: no pain over R chest port Neuro CN's II-XII intact bilaterally Medical Records Data Medical Nutrition Assessment Dietitian: Malnutrition Criteria Met Start: 07/31/25 11:30 Freq: Status: Active Protocol: Document 07/31/25 11:30 [facility] (Rec: 07/31/25 11:30 [facility] [id number]) Nutrition Malnutrition Evidence of Yes Malnutrition Exists Malnutrition (severe Chronic ): Evidenced By Suboptimal Energy Intake (Severe),Weight Loss (Severe) Intake Problem Inadequate Oral Intake Etiology related to oropharyngeal cancer Signs/Symptoms as evidenced by need for PEG/ EN for nutrition Status Active Problem Clinical Problem Acute Disease or Injury Related Malnutrition Etiology related to inadequate oral energy intake d/t oropharyngeal cancer Signs/Symptoms as evidenced by po intake meeting < 75% of est nutritional needs and 3% wt loss in past 5 days. Has started using PEG this week, but not up to goal yet. Status Active Problem Recommendation Dietitian Rec Jevity 1.5 bolus feeds 5x/day during waking hours - Recommendations/ goal of 240 ml per feed w/ 90 ml water flush before Changes and after feedings to provide ~ 1800 ynes / 76 gm pro/ 1812 ml free water per day. Would start day 1 at 50% giving 120 ml formula bolus feeds, day 2 increase to 75 % giving 180 ml formula bolus feeds and increase to goal rate 240 ml formula day 3 as pt tolerated. Continue to follow and monitor for changes in pt nutritional status and make additional rec as indicated . Lab / Micro Data Attestation: I reviewed the patient's lab results. 08/02/25 03:20 08/02/25 03:20 Labs: Laboratory Results - last 24 hr 07/30/25 16:04: Diff Path Review Reviewed 08/01/25 04:10: Diff Path Review N/A 08/02/25 03:20: WBC 2.3 L, RBC 2.98 L, Hgb 8.8 L, Hct 25.4 L, MCV 85.2, MCH 29.5, MCHC 34.6, RDW Std Deviation 41.4, RDW Coeff of Macho 13.4, Plt Count 129 L,MPV 10.1, Immature Gran % (Auto) 1.300 H, Neut % (Auto) 56.1, Lymph % (Auto) 18.7 L, [place] % (Auto) 19.6 H, Eos % (Auto) 1.7, Baso % (Auto) 2.6 H, Absolute Neuts (auto) 1.3 L, Absolute Lymphs (auto) 0.43 L, Nucleated RBC % 0, Differential Comment SCANNED, Sodium 136, Potassium 2.9 L, Chloride 103, Carbon Dioxide 24.6, Anion Gap 8, BUN 13, Creatinine 0.80, Estim Creat Clear Calc 70.06, Est GFR (MDRD) Non-Af 89, BUN/Creatinine Ratio 15.9, Glucose 111 H, Calcium 7.3 L, Total Bilirubin 0.48, AST 16, ALT 6, Alkaline Phosphatase 47, Total Protein 4.7 L, Albumin 2.6 L, Globulin 2.1 L, Albumin/Globulin Ratio 1.2 Micro: Microbiology 08/02/25 09:59 Nasal Secretion MRSA (PCR) - Final 07/30/25 18:51 Urine, Clean Catch Urine Culture - Final Culture exhibits no growth. 07/30/25 18:25 Blood Culture (Wb) - Venous Blood Culture - Preliminary No growth in 48 hours. 07/30/25 16:23 Blood Culture (Wb) - Line Draw Blood Culture - Preliminary No growth in 48 hours. 08/02/25 1549 <Electronically signed by Alan Galaviz MD> Cosigner Signature (if applicable): CC: Dr. Eloina Chi MD~ Signed [facility] Work Phone: Consult note Author Ranulfo Kraus [facility] Note Date/Time August 02, 2025 1 1:30pm [facility] Medical Records Department [address] [place] [address] Pharmacokinetic/Renal -Consult 08/02/258 MR#: [id number] Acct: [id number] Name: GLENN PARADA DEV Rep #:[id number] : 1945 80 From: Ranulfo Lubin od PCP: Dr. Eloina Chi MD Status:ADM IN Y Location: [place] [address] Consult Antibiotic Management Pharmacy has been consulted to manage selected antibiotic: Vancomycin Type of Intervention Type of Consult: Follow-up Labs Labs: Sodium 136 mmol/L (133-145) 08/02/25 03:20 Potassium 2.9 mmol/L (3.3-5.1) L 08/02/25 03:20 Chloride 103 mmol/L (98-108) 08/02/25 03:20 Carbon Dioxide 24.6 mmol/L (21.0-32.0) 08/02/25 03:20 Anion Gap 8 (5-15) 08/02/25 03:20 BUN 13 mg/dL (4-19) 08/02/25 03:20 Creatinine 0.80 mg/dL (0.70-1.20) 08/02/25 03:20 Est GFR (MDRD) Non-Af 89 (>60) 08/02/25 03:20 BUN/Creatinine Ratio 15.9 RATIO (10-20) 08/02/25 03:20 Glucose 111 mg/dL (70-99) H 08/02/25 03:20 Vancomycin Trough 14.3 ug/mL (5.0-15.0) 08/02/25 21:06 Microbiology Microbiology: Microbiology 08/02/25 09:59 Nasal Secretion MRSA (PCR) - Final 07/30/25 18:51 Urine, Clean Catch Urine Culture - Final Culture exhibits no growth. 07/30/25 18:25 Blood Culture (Wb) - Venous Blood Culture - Preliminary No growth in 48 hours. 07/30/25 16:23 Blood Culture (Wb) - Line Draw Blood Culture - Preliminary No growth in 48 hours. 07/30/25 21:57 Mucosa - Nasopharyngeal Respiratory Panel (PCR) - Final Goal Trough Goal Trough: 15-20 mcg/mL Pharmacy Plan for Drug Dosing Pharmacy Plan for Drug Dosing: Pharmacy Service will continue to monitor and adjust dosing as required. TROUGH 14.3 @ 11.5 HOURS. INCREASE TO 1250MG Q12H AND DRAW TROUGH PRIOR TO 4TH DOSE Follow-Up Labs Follow-Up Labs: Trough: Vancomycin Date/Time Labs Ordered Labs to be done on [date and time ordered]: 08/04 @ 1030 08/02/25 2330 <Electronically signed by Ranulfo carrasco> Date _ Ranulfo Mcbride Signature (if applicable): Date CC: ~ Signed [facility] Work Phone: Consult note Author Patricia Allen [facility] Note Date/Time August 04, 2025 2 :56pm [facility] Medical Records Department [address] [place] [address] Counseling Note - Pharmacy 08/04/25 1448 MR#: [id number] Acct: [id number] Name: GLENN PARADA DEV Rep #:[id number] : 1945 80 From: Patricia Allen PCP: Dr. Eloina Chi MD Status:DIS IN Y Location: [place] [address] Pharmacy HI Med Reconciliation Pharmacy Service has performed discharge medication reconciliation for this patient. Contacted Dr. Reardon, pt on Lovenox for PE but no anticoagulation ordered upon initial review. Dr. Reardon ordered Eliquis starter pack. Medication education papers prepared, patient discharged when counseling was attempted. Medications reviewed. The patient's discharge medication list was reviewed for discrepancies and discrepancies were resolved. Medications at Discharge Home Medications levothyroxine 50 mcg tablet 50 mcg PO QDAY 03/05/24 omeprazole 40 mg capsule,delayed release 40 mg PO QDAY 03/05/24 tamsulosin 0.4 mg capsule 0.4 mg PO BID 03/05/24 prucalopride 2 mg tablet (Motegrity) 2 mg PO DAILY 05/09/24 carbidopa ER 25 mg-levodopa 100 mg tablet,extended release 1 tab PO .qid 06/10/25 fludrocortisone 0.1 mg tablet 0.1 mg PO QDAY 06/17/25 lidocaine-prilocaine 2.5 %-2.5 % topical cream 1 applic topical ONCE PRN port access 30 days #30 grams 06/28/25 ondansetron 8 mg disintegrating tablet 8 mg PO Q8H PRN nausea and vomiting #30 tabs 06/28/25 MAGIC MOUTH WASH (BMX) 180 mL suspension 15 ml PO .qid PRN pain #180 mL 07/07/25 sodium chloride 1,000 mg soluble tablet 1,000 mg PO QD-QID PRN electrolyte replenishment #30 tabs 07/26/25 guaifenesin 100 mg/5 mL oral liquid (Guaifed (guaifenesin)) 200 mg (10 mL) PO Q4H PRN congestion #500 mL 07/28/25 L.acidophil,salivari-Bifido bifidum-Strep thermoph 175 mg capsule 1 cap G-tube TID #0 caps 08/04/25 amoxicillin 875 mg-potassium clavulanate 125 mg tablet 1 tab PO BID 3 days #6 tabs 08/04/25 apixaban 5 mg (74 tabs) tablets in a dose pack (Eliquis DVT-PE Treat 30D Start) 5 mg PO BID #74 tabs 08/04/25 chlorhexidine gluconate 0.12 % mouthwash 15 ml PO TID 12 weeks #1,893 mL 08/04/25 lactose-reduced food with fiber 0.06 gram-1.5 kcal/mL oral liquid (Jevity 1.5 Ynes) 240 ml G-tube 5X/DAY #0 mL 08/04/25 potassium chloride 20 mEq/15 mL oral liquid 40 meq (30 mL) G-tube BID 1 week #420 mL 08/04/25 sennosides 8.6 mg-docusate sodium 50 mg tablet (Stimulant Laxative Plus) 2 tab G-tube BID #0 tabs 08/04/25 08/04/25 1456 <Electronically signed by Patricia Aleln> Date _ Patricia Allen Cosigner Signature (if applicable): Date CC: ~ Signed [facility] Work Phone: Consult note Author Patricia Allen [facility] Note Date/Time August 04, 2025 3 :56pm [facility] Medical Records Department [address] [place] [address] Counseling Note - Pharmacy 08/04/25 1448 MR#: [id number] Acct: [id number] Name: GLENN PARADA DEV Rep #:[id number] : 1945 80 From: Patricia Allen PCP: Dr. Eloina Chi MD Status:DIS IN Y Location: [place] [address] Pharmacy HI Med Reconciliation Pharmacy Service has performed discharge medication reconciliation for this patient. Contacted Dr. Reardon, pt on Lovenox for PE but no anticoagulation ordered upon initial review. Dr. Reardon ordered Eliquis starter pack. Medication education papers prepared, patient discharged when counseling was attempted. Medications reviewed. The patient's discharge medication list was reviewed for discrepancies and discrepancies were resolved. Medications at Discharge Home Medications levothyroxine 50 mcg tablet 50 mcg PO QDAY 03/05/24 omeprazole 40 mg capsule,delayed release 40 mg PO QDAY 03/05/24 tamsulosin 0.4 mg capsule 0.4 mg PO BID 03/05/24 prucalopride 2 mg tablet (Motegrity) 2 mg PO DAILY 05/09/24 carbidopa ER 25 mg-levodopa 100 mg tablet,extended release 1 tab PO .qid 06/10/25 fludrocortisone 0.1 mg tablet 0.1 mg PO QDAY 06/17/25 lidocaine-prilocaine 2.5 %-2.5 % topical cream 1 applic topical ONCE PRN port access 30 days #30 grams 06/28/25 ondansetron 8 mg disintegrating tablet 8 mg PO Q8H PRN nausea and vomiting #30 tabs 06/28/25 MAGIC MOUTH WASH (BMX) 180 mL suspension 15 ml PO .qid PRN pain #180 mL 07/07/25 sodium chloride 1,000 mg soluble tablet 1,000 mg PO QD-QID PRN electrolyte replenishment #30 tabs 07/26/25 guaifenesin 100 mg/5 mL oral liquid (Guaifed (guaifenesin)) 200 mg (10 mL) PO Q4H PRN congestion #500 mL 07/28/25 L.acidophil,salivari-Bifido bifidum-Strep thermoph 175 mg capsule 1 cap G-tube TID #0 caps 08/04/25 amoxicillin 875 mg-potassium clavulanate 125 mg tablet 1 tab PO BID 3 days #6 tabs 08/04/25 apixaban 5 mg (74 tabs) tablets in a dose pack (Eliquis DVT-PE Treat 30D Start) 5 mg PO BID #74 tabs 08/04/25 chlorhexidine gluconate 0.12 % mouthwash 15 ml PO TID 12 weeks #1,893 mL 08/04/25 lactose-reduced food with fiber 0.06 gram-1.5 kcal/mL oral liquid (Jevity 1.5 Ynes) 240 ml G-tube 5X/DAY #0 mL 08/04/25 potassium chloride 20 mEq/15 mL oral liquid 40 meq (30 mL) G-tube BID 1 week #420 mL 08/04/25 sennosides 8.6 mg-docusate sodium 50 mg tablet (Stimulant Laxative Plus) 2 tab G-tube BID #0 tabs 08/04/25 08/04/25 [id number] <Electronically signed by Patricia Allen> Date _ Patricia Mcbride Signature (if applicable): Date CC: ~ Signed [facility] Work Phone: Discharge summary Author Kalyn Ng [facility] Note Date/Time June 30, 2025 9:51am [facility] Medical Records Department [address] [place] [address] Instructions for Home/Discharge Instructions 06/30/25 0948 MR#: [id number] Acct: [id number] Name: GLENN PARADA DEV Rep #:[id number] : 1945 80 From: Kalyn Ng MD PCP: Dr. Eloina Chi MD Status:REG SD C Discharge Instructions Procedure Port-A-Cath Diet Discharge Diet: Light diet - advance as tolerated Activity May shower in (days): 5 (Keep port site clean and dry x5 days. Neck incision okay to get wet after 1 day. Okay to lower shower and upper sponge bath. OR okay to taper off port site with a Ziploc bag to shower) Lifting Restrictions: No lifting > 15 pounds for 3 days with the arm on the sideof the port Dressing / Incision Call your doctor if your incision/area has: Continuous Slow Oozing, Sudden Increased Bleeding, Increased Pain/ Swelling, Increased Redness, Foul Smelling Discharge and Swelling at the incision site Call your doctor if you observe: Fever of 101 or Higher Change Dressing in: 2 days (2-3 days- port site; ok to remove neck opsite in 1 day) Additional Dressing/Incision Instructions:: Flush PEG tube daily with 60 cc of tap water, clean under bumper daily-do not put gauze under the bumper or if you do only do 1 layer of gauze Follow Up Care Please Follow Up With: Kalyn Ng MD When: In 10 days for permanent suture removal?call office for appointment Test Results: Test results from this visit will be discussed in further detail at your follow- up appointment, if applicable. Discharge Plan Admission Attending Provider: Kalyn Ng Primary Care Provider: Eloina Chi Instructions Print Language: Khmer Discharge Orders/Prescriptions Prescriptions: Continued levothyroxine 50 mcg tablet 50 mcg PO QDAY omeprazole 40 mg capsule,delayed release(DR/EC) 40 mg PO QDAY tamsulosin 0.4 mg capsule 0.4 mg PO BID carbidopa-levodopa 25-100 mg tablet extended release 1 tab PO .qid fludrocortisone 0.1 mg tablet 0.1 mg PO QDAY ondansetron 8 mg tablet,disintegrating 8 mg PO Q8H PRN (Reason: nausea and vomiting) Qty: 30 1RF lidocaine-prilocaine 2.5-2.5 % cream 1 applic topical ONCE PRN (Reason: port access) 30 Days Qty: 30 2RF prucalopride [Motegrity] 2 mg tablet 2 mg PO DAILY Referrals / Follow Up: Eloina Chi MD [Primary Care Provider, Family Practice] Disposition Disposition (needs filled in before D/C Order can be placed): Home, Self Care 06/30/25 0951<Electronically signed by Kalyn Ng MD>Kalyn Ng MD CC: Dr. Eloina Chi MD ~ Signed [facility] Work Phone: Discharge summary Author Dev Reardon [facility] Note Date/Time August 04, 2025 1 0:43am [facility] Medical Records Department [address] [place] [id number] Instructions for Home/Discharge Instructions 08/04/25 1036 MR#: [id number] Acct: [id number] Name: GLENN PARADA DEV Rep #:[id number] : 1945 80 From: Dev Segovia PCP: Dr. Eloina Chi MD Status:ADM IN Discharge Instructions DC O2, CPAP, BIPAP needs Home O2 Discharge instructions: No Follow Up Care Test Results: Test results from this visit will be discussed in further detail at your follow- up appointment, if applicable. Discharge Plan Admission Admit Date/Time: 07/30/25 19:55 Attending Provider: Dev Reardon Primary Care Provider: Eloina Chi Consulting Providers: Rani Gallagher; Alan Galaviz; Marco Carrero; Vicente Schofield; Tez Obando; Vaughn Garduno; Jamarcus Vaz; Marya Moss; Sundar Reid; Latasha Gutierrez; James Bangura; Debbie Frausto; Pato Cerda; Smooth Fall; Christelle Camejo; Brian Mendoza; Brady Pemberton; Lamont Armenta; Alva Langford; Pinky Santana; Kathrine Cox; Antonette Burroughs; cJ South; Johnathan Witt; Iain Obrien; Heather Velarde; Tara Cohn; Kusum Avina; Iain Bone; Brady Aldana; Omer Woods; Efrem Tanner; Hiral Carlin; Shaylee,Carlos; Dhesi,Beltran; Marilee Orourke; Narendra,Marisol; Martinez,Zaira; Maparag,Samih; Russell Leach; Turfe,Ihsan; Romaine,Spenser; Jordan,Nelida; Robert Kessler; Jamarcus Tao; Simone Collins; Jonathan Curtis; Maryjo Nichole; Alan Childress; Angel Mejia; Chester Sharpe; En Guerin; Jayashree Anderson [employer] Discharge Orders/Prescriptions Prescriptions: New chlorhexidine gluconate 0.12 % Mouthwash 15 ml PO TID 84 Days Qty: 1893 0RF potassium chloride 20 mEq/15 mL Liquid 40 meq G-tube BID 7 Days Qty: 420 0RF L.acidoph,saliva-B.bif-S.therm 175 mg Capsule 1 cap G-tube TID Qty: 0 0RF Rx Instructions: for 2 weeks Jevity 1.5 Ynes 0.06 gram-1.5 kcal/mL Liquid 240 ml G-tube 5X/DAY Qty: 0 0RF sennosides-docusate sodium [Stimulant Laxative Plus] 8.6-50 mg Tablet 2 tab G-tube BID Qty: 0 0RF amoxicillin-pot clavulanate 875-125 mg tablet 1 tab PO BID 3 Days Qty: 6 0RF Continued levothyroxine 50 mcg tablet 50 mcg PO QDAY omeprazole 40 mg capsule,delayed release(DR/EC) 40 mg PO QDAY tamsulosin 0.4 mg capsule 0.4 mg PO BID carbidopa-levodopa 25-100 mg tablet extended release 1 tab PO .qid fludrocortisone 0.1 mg tablet 0.1 mg PO QDAY ondansetron 8 mg tablet,disintegrating 8 mg PO Q8H PRN (Reason: nausea and vomiting) Qty: 30 1RF lidocaine-prilocaine 2.5-2.5 % cream 1 applic topical ONCE PRN (Reason: port access) 30 Days Qty: 30 2RF sodium chloride 1,000 mg tablet,soluble 1,000 mg PO QD-QID PRN (Reason: electrolyte replenishment) Qty: 30 2RF MAGIC MOUTH WASH (BMX) 180 mL suspension 15 ml PO .qid PRN (Reason: pain) Qty: 180 5RF Rx Instructions: diphenhydramine 12.5 mg/5 mL oral liquid 60 mL; aluminum-mag hydroxide- simethicone 400 mg-400 mg-40 mg/5 mL oral susp 60 mL; Lidocaine Viscous 2 % mucosal solution 60 mL; Per 180 mL guaifenesin [Guaifed (guaifenesin)] 100 mg/5 mL liquid 200 mg PO Q4H PRN (Reason: congestion) Qty: 500 3RF Rx Instructions: take 10 mL q4 hrs prn congestion prucalopride [Motegrity] 2 mg tablet 2 mg PO DAILY Discontinued sennosides [Shari-rocco] 8.6 mg tablet 8.6 mg PO PRN Referrals / Follow Up: Eloina Chi MD [Primary Care Provider, Family Practice] Simone Collins MD [Med Staff - Active Staff, Oncology] - Within 2 Weeks Disposition Disposition (needs filled in before D/C Order can be placed): Home Health Service 08/04/25 6105<Electronically signed by Dev Reardon MD>Dev Reardon MD CC: MELISSA Anderson; Dr. Vicente Schofield MD; Dr. Marco Carrero MD; Dr. Tez Obando MD; Dr. Eloina Chi MD; Dr. Jamarcus Tao MD; Dr. Jamarcus Vaz MD; Dr. Vaughn Garduno DO; Dr. Sundar Reid MD; Dr. Marya Moss DO; Dr.Erine Matt MD; Dr. James Bangura MD; Dr. Pato Cerda MD; Dr. Alexey MD; Dr. Brady Pemberton MD; Dr. Jonathan Curtis MD; Dr. Smooth Fall MD;Dr. Simone Collins MD; Dr. Christelle Camejo MD; Dr. Brian Mendoza MD; Dr. Lamont Armenta MD; Dr. Pinky Santana MD; Dr. Kathrine Cox MD; Dr. Antonette Burroughs MD; Dr. Elinor Cohn MD; Dr. Maryjo Nichole MD; Dr. Heather Velarde MD; Dr. Johnathan Witt MD; Dr. Kusum Avina DO; Dr. Iain Obrien MD; Dr. Iain Bone MD; Dr. Jc South DO; Dr. Rain Gallagher MD; Dr. Brady Aldana DO; Dr. Efrem Tanner MD; Dr. Omer Woods MD; Dr. Alan Childress MD; Dr. Alan Galaviz MD; Dr. Chester Sharpe MD; Dr. Hiral Carlin; Dr. Angel Mejia MD; Dr. Carlos June MD; Dr. Makeda Joyner MD;Dr. Zaira Henriquez MD; Dr. Marisol Mackey MD; Dr. En uGerin DO; Dr. Marilee Orourke MD; Dr. Beltran Cheatham DO; Dr. Ihsan Oliveira MD; Dr. Russell Leach DO; Dr. Nelida Ortega MD; Dr. Spenser Gavin MD; Dr. Robert Kessler MD; Dr. Debbie Frausto MD ~ Signed [facility] Work Phone: Discharge summary Author Dev Reardon [facility] Note Date/Time August 04, 2025 1 1:56am [facility] Medical Records Department [address] [place] [address] Discharge Summary 08/04/25 1043 MR#: [id number] Acct: [id number] Name: GLENN PARADA DEV Rep #:[id number] : 1945 80 From: Dev Segovia PCP: Dr. Eloina Chi MD Status:ADM IN Location: [place] [address] Providers Date of Admission: 07/30/25 Date of Discharge: 08/04/25 Primary Care Physician: Eloina Chi MD Consultations 07/30/25 20:30 Consult: Mental Hygienist / Pulmonary Medicine Routine Consulting Provider: Intensivists/Pulmonary Med Reason for Consult: sepsis due to febrile neutropenia EMERGENT Consult: No Notified: Yes Date Notified: 07/30/25 Time Notified: 21:21 Method of Notification: Text 08/01/25 08:46 Consult: Infectious Disease Routine Consulting Provider: Alan Galaviz Reason for Consult: NEURTOPENIC Fever, oropharygeal ca on CT/RT EMERGENT Consult: No Notified: Yes Date Notified: 08/01/25 Time Notified: 08:46 Method of Notification: Text 08/02/25 08:24 Consult: Oncology/Hematology Routine Consulting Provider: *[facility] Reason for Consult: neutropenic fever EMERGENT Consult: No Notified: Yes Date Notified: 08/02/25 Time Notified: 08:25 Method of Notification: Verbal Reason For Visit: FEBRILE NEUTROPENIA Diagnosis Discharge Diagnosis (1) Encephalopathy acute: Status: Acute Code(s): G93.40 - Encephalopathy, unspecified (2) Neutropenia with fever: Status: Acute Code(s): D70.9 - Neutropenia, unspecified; R50.81 - Fever presenting with conditions classified elsewhere Plan 80-year-old gentleman with history 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 #Acute febrile neutropenia in the setting of metastatic oropharyngeal cancer * Patient is admitted to ICU due to concerns for sepsis and rapid deterioration in light of his immunocompromised state. Admitted with a complaint of fever. He had radiation on day of admission and chemotherapy 4 days ago. * Denies any urinary symptoms or any respiratory symptoms or abdominal symptoms. Patient is tachycardic with heart rate of 131. Lactic acid is less than 1. * Patient was hydrated hydrate aggressively with IV fluids. Continue IV vancomycin and Zosyn. * Neutropenic precautions. * consult critical care. * 07/31: Low-grade fever today. Tmax 102.0 on 07/30 about 8 PM. Leukopenia, thrombocytopenia and anemia/pancytopenia. ANC 0.9 K suggestive of moderate neutropenia, ALC 0.27/lymphopenia, basophils 2.2%. Does not meet criteria for sepsis. Urine culture exhibits no growth. Respiratory panel negative. 08/01: No fever, Tmax 100.1 F. Still leukopenia, ANC 1.1 K, improved from 0.5 K. Started on Granix. Discussed with pharmacy and Peridex/chlorhexidine oral rinse ordered. Mouth hygiene. Continue antibiotic. ID consult tomorrow AM. 08/02: Tmax 100.4 Fahrenheit on 08/01 evening. ANC 1.2 K, continue Granix today. Continue Peridex and oral hygiene for mouth soreness and mucositis. Oncologist consult requested as per patient's request. He was supposed to startchemotherapy today but it is contraindicated due to neutropenic fever and pancytopenia for now. Cultures are negative so far. ID consulted to narrow down the antibiotic 08/03: No fever. Seen by ID and recommended 3 days of Augmentin 875 mg twice daily at time of discharge. Neutropenia has resolved. Granix discontinued. Patient was seen by oncologist Dr. Collins and recommended to follow-up as an outpatient after discharge to continue chemotherapy as outpatient 08/04: No fever. Patient discharged on 3 days of Augmentin 875 mg twice daily. #PE * D dimer ordered due to tachcyardia. * D dimer was markedly elevated at ~ 7, so stat CTA chest done which showed pulmonary embolism of the right lower lobe subsegmenal branches. * patient started on therapeutic lovenox. 07/31: Continue Lovenox. Shows mild decrease in hemoglobin and platelet count. Platelet count 0.183 on 07/26. 08/01: Platelet count 147K, improved from yesterday. H&H 8.8/25.6%. Bands 8%, metamyelocytes 4%. 08/04: Patient has leukocytosis probably side effect of Granix. Granix was discontinued yesterday 08/04: Patient given a prescription for starter pack of Eliquis 10 mg p.o. twicedaily for 1 week and then 5 mg twice daily to continue. I did discuss the anticoagulant with Dr. Collins. Follow-up in oncology office Pancytopenia since admission due to chemotherapy and radiotherapy 06/02: All 3 cell lines are low. Platelet count 129K. Patient also on Lovenox as mentioned above. 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 General mild acute malnutrition due to chemotherapeutic and radiation toxic effect. patient n.p.o. and has PEG tube #GERD: PPI #Hypothyroidism: On Synthroid #BPH: On Flomax DVT prophylaxis: not indicated as patient started on therapeutic lovenox for newly diagnosed PE Electrolyte abnormality: Hypocalcemia: Calcium 6.9, albumin 3.4. Corrected calcium is 7.4 therefore IV calcium gluconate ordered. 08/01: Severe hypokalemia, K2.6. 40 mEq oral and 40 mEq IV KCl replaced. Repeat serum magnesium and phosphorus and BMP after 1 hour of completion of electrolyte replacement. 08/03: Severe hypokalemia: Hypophosphatemia. IV potassium phosphate ordered. Oral potassium replacement. 08/04: Mild hypokalemia, prescription given for potassium supplement. Hypomagnesemia and hypophosphatemia corrected. CODE STATUS:full code * Patient and counseled extensively about different types of CODE STATUS including full code, DNR CCA and DNR CCA. * Patients elects for him to be full code. Discharge medication reconciliation done. Discharge follow-up instructions completed. Discharge process discussed with the patient and all questions were answered to patient's satisfaction. Follow with PCP in 1 to 2 weeks Total time spent, exact 35 minutes on discharge meds reconciliation, examination, coordination of care with nurses and ancillary staff, review of imaging and blood test and discussion with the patient on follow-up instructions. Microbiology Past 72 Hours 08/02/25 09:59 Nasal Secretion MRSA (PCR) - Final 07/30/25 18:51 Urine, Clean Catch Urine Culture - Final Culture exhibits no growth. 07/30/25 18:25 Blood Culture (Wb) - Venous Blood Culture - Preliminary No growth in 48 hours. 07/30/25 16:23 Blood Culture (Wb) - Line Draw Blood Culture - Preliminary No growth in 48 hours. Laboratory Results 08/02/25 21:06: Vancomycin Trough 14.3 08/03/25 11:26: WBC 6.6, RBC 3.37 L, Hgb 9.9 L, Hct 29.5 L, MCV 87.5, MCH 29.4, MCHC 33.6, RDW Std Deviation 43.0, RDW Coeff of Macho 13.9, Plt Count 152, MPV 10.6, Neut % (Auto) Not Reportable, Absolute Neuts (auto) 4.6, Absolute Lymphs (auto) 1.19, Total Counted 100, Neutrophils % (Manual) 50, Band Neutrophils % 19 H, Lymphocytes % (Manual) 18 L, Monocytes % (Manual) 11 H, Metamyelocytes % 2 H, Platelet Estimate ADEQUATE, RBC Morphology NORM C+C, Sodium 137, Potassium 2.7 L*, Chloride 101, Carbon Dioxide 24.4, Anion Gap 12, BUN 9, Creatinine 1.03, Estim Creat Clear Calc 54.42, Est GFR (MDRD) Non-Af 73, BUN/Creatinine Ratio 9.1 L, Glucose 101 H, Calcium 7.7, Total Bilirubin 0.53, AST 28, ALT 15, Alkaline Phosphatase 60, Total Protein 5.4 L, Albumin 3.0 L, Globulin 2.3, Albumin/Globulin Ratio 1.3 Clinical Impression(s) from Imaging Studies Chest X-Ray 07/30/25 18:25 IMPRESSION: No Acute Findings. Reading Location: [facility] Chest CTA 07/30/25 22:16 IMPRESSION: Right lower lobe segmental branches pulmonary emboli. No evidence of large central or massive pulmonary embolus. No evidence of cardiac strain. Minimal bilateral pleural effusions. Passive atelectatic airspace disease in the lower lobes. Mild interstitial pulmonary congestion. Right Port-A-Cath is in good position. Mild cardiomegaly. Small sliding hiatal hernia. Left renal simple cyst measuring 3.5 cm. Chronic deformity of the posterior arch of the left 11th rib. I discussed the findings with NIGEL Natarajan in the ICU at 12:33 a.m. EST. Reading [facility] Medications at Discharge Home Medications levothyroxine 50 mcg tablet 50 mcg PO QDAY 03/05/24 omeprazole 40 mg capsule,delayed release 40 mg PO QDAY 03/05/24 tamsulosin 0.4 mg capsule 0.4 mg PO BID 03/05/24 prucalopride 2 mg tablet (Motegrity) 2 mg PO DAILY 05/09/24 carbidopa ER 25 mg-levodopa 100 mg tablet,extended release 1 tab PO .qid 06/10/25 fludrocortisone 0.1 mg tablet 0.1 mg PO QDAY 06/17/25 lidocaine-prilocaine 2.5 %-2.5 % topical cream 1 applic topical ONCE PRN port access 30 days #30 grams 06/28/25 ondansetron 8 mg disintegrating tablet 8 mg PO Q8H PRN nausea and vomiting #30 tabs 06/28/25 MAGIC MOUTH WASH (BMX) 180 mL suspension 15 ml PO .qid PRN pain #180 mL 07/07/25 sodium chloride 1,000 mg soluble tablet 1,000 mg PO QD-QID PRN electrolyte replenishment #30 tabs 07/26/25 guaifenesin 100 mg/5 mL oral liquid (Guaifed (guaifenesin)) 200 mg (10 mL) PO Q4H PRN congestion #500 mL 07/28/25 L.acidophil,salivari-Bifido bifidum-Strep thermoph 175 mg capsule 1 cap G-tube TID #0 caps 08/04/25 amoxicillin 875 mg-potassium clavulanate 125 mg tablet 1 tab PO BID 3 days #6 tabs 08/04/25 apixaban 5 mg (74 tabs) tablets in a dose pack (Eliquis DVT-PE Treat 30D Start) 5 mg PO BID #74 tabs 08/04/25 chlorhexidine gluconate 0.12 % mouthwash 15 ml PO TID 12 weeks #1,893 mL 08/04/25 lactose-reduced food with fiber 0.06 gram-1.5 kcal/mL oral liquid (Jevity 1.5 Ynes) 240 ml G-tube 5X/DAY #0 mL 08/04/25 potassium chloride 20 mEq/15 mL oral liquid 40 meq (30 mL) G-tube BID 1 week #420 mL 08/04/25 sennosides 8.6 mg-docusate sodium 50 mg tablet (Stimulant Laxative Plus) 2 tab G-tube BID #0 tabs 08/04/25 Physical Exam Narrative Seen and examined No fever last 18 hours. Last temperature 100.4 ?F on 08/01, about 72 hours ago Patient has swelling/thick mucus secretions over oropharyngeal and throat region looks better with Peridex. On tube feed through PEG tube. Had BM. No fever. Severe hold for serum potassium more than 5.0 Physical exam General: Alert, Oriented x3, Cooperative HEENT: Atraumatic, PERRLA, EOMI, Normocephalic. Oral: Yellowish patch over left and right lateral margin of anterior tongue. Thick mucoid whitish secretions are less. Oral gingivitis/soreness Neck: Supple, No JVD, Negative Carotid Bruits Chest wall/Lungs: Air entry diminished in bilateral lung bases. Mild crepitations on bases Cardiovascular: Regular rate and rhythm, Normal S1,S2, No M/G/R Abdomen: PEG tube bowel Sounds Present, Soft, Non Tender, Non-Distended : No dysuria. No renal angle tenderness. No suprapubic tenderness. Extremities: Mild leg edema, Capillary Refill Less than 3 Seconds Skin: No rashes, No breakdown Musculoskeletal: Decreased muscle strength of knees and hip joints. No Tenderness to Palpation of Joints or Extremities Neurological: DTR 2+/4. No acute focal neurological deficit. Psych/Mental Status: Flat affect. Medical Records Data Medical Nutrition Assessment Dietitian: Malnutrition Criteria Met Start: 07/31/25 11:30 Freq: Status: Active Protocol: Document 07/31/25 11:30 SLA (Rec: 07/31/25 11:30 SLA [id number]) Nutrition Malnutrition Evidence of Yes Malnutrition Exists Malnutrition (severe Chronic ): Evidenced By Suboptimal Energy Intake (Severe),Weight Loss (Severe) Intake Problem Inadequate Oral Intake Etiology related to oropharyngeal cancer Signs/Symptoms as evidenced by need for PEG/ EN for nutrition Status Active Problem Clinical Problem Acute Disease or Injury Related Malnutrition Etiology related to inadequate oral energy intake d/t oropharyngeal cancer Signs/Symptoms as evidenced by po intake meeting < 75% of est nutritional needs and 3% wt loss in past 5 days. Has started using PEG this week, but not up to goal yet. Status Active Problem Recommendation Dietitian Rec Jevity 1.5 bolus feeds 5x/day during waking hours - Recommendations/ goal of 240 ml per feed w/ 90 ml water flush before Changes and after feedings to provide ~ 1800 ynes / 76 gm pro/ 1812 ml free water per day. Would start day 1 at 50% giving 120 ml formula bolus feeds, day 2 increase to 75 % giving 180 ml formula bolus feeds and increase to goal rate 240 ml formula day 3 as pt tolerated. Continue to follow and monitor for changes in pt nutritional status and make additional rec as indicated . Weight / BMI Weight Weight: 169 lb 12.095 oz Body Mass Index (BMI) 25.8 ABG / Lab / Microbiology Data 08/04/25 05:12 08/04/25 05:12 Laboratory: Laboratory Results - last 24 hr 08/03/25 11:26: WBC 6.6, RBC 3.37 L, Hgb 9.9 L, Hct 29.5 L, MCV 87.5, MCH 29.4, MCHC 33.6, RDW Std Deviation 43.0, RDW Coeff of Macho 13.9, Plt Count 152, MPV 10.6, Neut % (Auto) Not Reportable, Absolute Neuts (auto) 4.6, Absolute Lymphs (auto) 1.19, Total Counted 100, Neutrophils % (Manual) 50, Band Neutrophils % 19 H, Lymphocytes % (Manual) 18 L, Monocytes % (Manual) 11 H, Metamyelocytes % 2 H, Platelet Estimate ADEQUATE, RBC Morphology NORM C+C, Sodium 137, Potassium 2.7 L*, Chloride 101, Carbon Dioxide 24.4, Anion Gap 12, BUN 9, Creatinine 1.03, Estim Creat Clear Calc 54.42, Est GFR (MDRD) Non-Af 73, BUN/Creatinine Ratio 9.1 L, Glucose 101 H, Calcium 7.7, Total Bilirubin 0.53, AST 28, ALT 15, Alkaline Phosphatase 60, Total Protein 5.4 L, Albumin 3.0 L, Globulin 2.3, Albumin/Globulin Ratio 1.3 08/04/25 05:12: WBC 15.5 H, RBC 3.31 L, Hgb 9.9 L, Hct 28.9 L, MCV 87.3, MCH 29.9, MCHC 34.3, RDW Std Deviation 43.8, RDW Coeff of Macho 14.1, Plt Count 159, MPV 10.2, Neut % (Auto) Not Reportable, Absolute Neuts (auto) 12.0 H, Absolute Lymphs (auto) 1.71, Total Counted 100, Neutrophils % (Manual) 59, Band Neutrophils % 18 H, Lymphocytes % (Manual) 11 L, Monocytes % (Manual) 10, Basophils % (Manual) 1, Myelocytes % 1 H, Nucleated RBCs/100 WBC 1, Diff Path Review May foll, Toxic Granulation 2+, Dohle Bodies 2+, Platelet Estimate ADEQUATE, RBC Morphology NORM C+C, Sodium 141, Potassium 3.0 L, Chloride 103, Carbon Dioxide 22.8, Anion Gap 15, BUN 7, Creatinine 1.03, Estim Creat Clear Calc 54.42, Est GFR (MDRD) Non-Af 73, BUN/Creatinine Ratio 6.9 L, Glucose 107 H, Calcium 7.7, Phosphorus 3.9 Microbiology: Microbiology 08/02/25 09:59 Nasal Secretion MRSA (PCR) - Final 07/30/25 18:51 Urine, Clean Catch Urine Culture - Final Culture exhibits no growth. 07/30/25 18:25 Blood Culture (Wb) - Venous Blood Culture - Preliminary No growth in 48 hours. 07/30/25 16:23 Blood Culture (Wb) - Line Draw Blood Culture - Preliminary No growth in 48 hours. 07/30/25 21:57 Mucosa - Nasopharyngeal Respiratory Panel (PCR) - Final D/C Instructions DC O2, CPAP, BIPAP Needs Home O2 Discharge instructions: No Meaningful Use Info Meaningful Use Meaningful Use Diagnoses (Choose all that apply): None applicable Discharge Plan Admission Admit Date/Time: 07/30/25 19:55 Attending Provider: Dev Reardon Primary Care Provider: Eloina Chi Consulting Providers: Rain Gallagher; Alan Galaviz; Marco Carrero; Vicente Schofield; Tez Obando; Vaughn Garduno; Jamarcus Vaz; Marya Moss; Sundar Reid; Latasha Gutierrez; James Bangura; Debbie Frausto; Pato Cerda; Smooth Fall; Christelle Camejo; Brian Mendoza; Brady Pemberton; Lamont Armenta; Alva Langford; Pinky Santana; Kathrine Cox; Antonette Burroughs; Jc South; Johnathan Witt; Iain Obrien; Heather Velarde; Elinor Cohn; Kusum Avina; Iain Bone; Brady Aldana; Omer Woods; Erfem Tanner; Hiral Carlin; ShayleeCarlos; Dhesi,Beltran; Marilee Orourke; Narendra,Marisol; Martinez,Zaira; Maparag,Samih; Russell Leach; Turfe,Ihsan; Romaine,Spenser; Jordan,Nelida; Robert Kessler; Jamarcus Tao; Simone Collins; Jonathan Curtis; Maryjo Nichole; Alan Childress; Angel Mejia; Chester Sharpe; En Guerin; Jayashree Anderson [employer] Discharge Orders/Prescriptions Prescriptions: New chlorhexidine gluconate 0.12 % Mouthwash 15 ml PO TID 84 Days Qty: 1893 0RF potassium chloride 20 mEq/15 mL Liquid 40 meq G-tube BID 7 Days Qty: 420 0RF L.acidoph,saliva-B.bif-S.therm 175 mg Capsule 1 cap G-tube TID Qty: 0 0RF Rx Instructions: for 2 weeks Jevity 1.5 Ynes 0.06 gram-1.5 kcal/mL Liquid 240 ml G-tube 5X/DAY Qty: 0 0RF sennosides-docusate sodium [Stimulant Laxative Plus] 8.6-50 mg Tablet 2 tab G-tube BID Qty: 0 0RF amoxicillin-pot clavulanate 875-125 mg tablet 1 tab PO BID 3 Days Qty: 6 0RF Eliquis DVT-PE Treat 30D Start 5 mg (74 tabs) tablets,dose pack 5 mg PO BID Qty: 74 0RF Rx Instructions: 10 mg (2 tabs) twice daily for 7 days till 08/11/25 and then 1 tab twice daily to continue Continued levothyroxine 50 mcg tablet 50 mcg PO QDAY omeprazole 40 mg capsule,delayed release(DR/EC) 40 mg PO QDAY tamsulosin 0.4 mg capsule 0.4 mg PO BID carbidopa-levodopa 25-100 mg tablet extended release 1 tab PO .qid fludrocortisone 0.1 mg tablet 0.1 mg PO QDAY ondansetron 8 mg tablet,disintegrating 8 mg PO Q8H PRN (Reason: nausea and vomiting) Qty: 30 1RF lidocaine-prilocaine 2.5-2.5 % cream 1 applic topical ONCE PRN (Reason: port access) 30 Days Qty: 30 2RF sodium chloride 1,000 mg tablet,soluble 1,000 mg PO QD-QID PRN (Reason: electrolyte replenishment) Qty: 30 2RF MAGIC MOUTH WASH (BMX) 180 mL suspension 15 ml PO .qid PRN (Reason: pain) Qty: 180 5RF Rx Instructions: diphenhydramine 12.5 mg/5 mL oral liquid 60 mL; aluminum-mag hydroxide- simethicone 400 mg-400 mg-40 mg/5 mL oral susp 60 mL; Lidocaine Viscous 2 % mucosal solution 60 mL; Per 180 mL guaifenesin [Guaifed (guaifenesin)] 100 mg/5 mL liquid 200 mg PO Q4H PRN (Reason: congestion) Qty: 500 3RF Rx Instructions: take 10 mL q4 hrs prn congestion prucalopride [Motegrity] 2 mg tablet 2 mg PO DAILY Discontinued sennosides [Shari-rocco] 8.6 mg tablet 8.6 mg PO PRN Referrals / Follow Up: Eloina Chi MD [Primary Care Provider, Family Practice] - 08/16/25 1:40 pm Simone Collins MD [Med Staff - Active Staff, Oncology] - 08/09/25 7:30 am Disposition Disposition (needs filled in before D/C Order can be placed): Home Health Service Charges/Coding Visit Charges Inpatient E&M: 82511 Disch Hosp >30min 08/04/25 1156 <Electronically signed by Dev Reardon MD> Cosigner Signature (if applicable): CC: Dr. Eloina Chi MD; Dr. Simone Collins MD; Dr. Dev Reardon MD; Dr. Carlitos MD~ Signed [facility] Work Phone: evaluation note* Diagnosis Onset Date Resolution Status Contusion of back wall of thorax acute [facility] Work Phone: evaluation note* Diagnosis Parkinson's disease without dyskinesia, with fluctuating manifestations (HCC)- Primary documented in this encounter [facility] note* Diagnosis Parkinson's disease without dyskinesia or fluctuating manifestations (HCC)- Primary Orthostatic hypotension Constipation, unspecified constipation type documented in this encounter [facility] note* Diagnosis Orthostatic hypotension- Primary Parkinson's disease without dyskinesia, with fluctuating manifestations (HCC) [facility]* Diagnosis Constipation, unspecified constipation type- Primary Intestinal malabsorption, unspecified type [facility]* Diagnosis Parkinson's disease without dyskinesia or fluctuating manifestations (HCC)- Primary Cognitive and behavioral changes Other signs and symptoms involving cognition documented in this encounter [facility] noteNo assessment information [facility] Work Phone: evaluation note* Diagnosis Parkinson's disease without dyskinesia, with fluctuating manifestations (HCC)- Primary Orthostatic hypotension Sialorrhea Disturbance of salivary secretion [facility] Diagnosis Tonsillar mass Swelling, mass, or lump in head and neck [facility] Diagnosis Tonsillar mass- Primary Swelling, mass, or lump in head and neck 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) [facility]* Diagnosis Squamous cell carcinoma of oropharynx [...] BPH (benign prostatic hyperplasia) acute June 17, 025 1:25pm Cat bite acute June 17, [...] of oropharynx acute June 17 025 1:25pm [employer] Work Phone: Evaluation note* Diagnosis Tonsillar mass- Primary Swelling, mass, or lump in head and neck 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 Eloina Chi MD Status:ADM IN Location: ICU CVICU20 3-1 HPI - General General Date of Admission: 07/30/25 Date of Service: 07/30/25 Chief Complaint: fever HPI Narrative GLENN PARADA, is a 80 M with a PMH as outlined including throat cancer, currently undergoing chemotherapy, who was admitted via the ED on 07/30/2025 with a complaint of fever. He had chemotherapy 4 days ago and radiation on the day of admission. He was also found to be confused. He denied any cough, chest pain, palpitations, dizziness, nausea, vomiting or any other symptoms. Review ofsystems was otherwise negative. Vitals in the ED were BP of 133/81, MS of 126, RR of 16 and temp of 100.7F. He was saturating at 98% on room air. CBC showed Hb of 10.7, wbc of 1, platelets were unrecordable. BMP showed sodium of 133, potassium of 3.4 and bicarb of 25.3. Cr is 0.81 and anion gap is 10. CXR showed no acute cardiopulmonary findings. EKG showed sinus tachycardia. Urinalysis showed no evidence of UTI. Heis being admitted to be managed for febrile neutropenia in a patient with metastatic oropharyngeal cancer. [facility] Medical History Encounter for education Wears glasses Cancer Alcohol [...] Cardiology follow-up encounter Celiac disease Home Medications ?Medication ?Instructions ?Recorded ?Last Taken ?Type levothyroxine 50 mcg tablet 50 mcg PO QDAY 03/05/24 History omeprazole 40 mg capsule,delayed 40 mg PO QDAY 4 06/30/25 History release tamsulosin 0.4 mg capsule 0.4 mg PO BID 03/05/2406/30 History prucalopride 2 mg tablet 2 mg PO DAILY 05/09/2406/30 History (Motegrity) carbidopa ER 25 mg-levodopa 100 mg 1 tab PO .qid 06/1006/30/25 History tablet,extended release fludrocortisone 0.1 mg tablet 0.1 mg PO QDAY 06/17/25 06/30/25 History lidocaine-prilocaine 2.5 %-2.5 % 1 applic topical ONCE PRN port 06/28/25 Unknown Rx topical cream access 30 days #30 grams ondansetron 8 mg disintegrating 8 mg PO Q8H PRN nausea and 06/28/25 Unknown Rx tablet vomiting #30 tabs MAGIC MOUTH WASH (BMX) 180 mL 15 ml PO .qid PRN pain # 180 mL 07/07/25 Unknown Rx suspension sodium chloride 1,000 mg soluble 1,000 mg PO QD-QID MS N electrolyte 07/26/25 Unknown Rx tablet replenishment #30 tabs guaifenesin 100 mg/5 mL oral 200 mg (10 mL) PO Q4H PRN 07/28/25 Unknown Rx liquid (Guaifed (guaifenesin)) congestion #500 mL sennosides 8.6 mg tablet (Shari-rocco) 8.6 mg PO PRN 07/14 05/07 Unknown History Allergy/AdvReac Type Severity Reaction Status Date / Time gluten Allergy Abd Verified 07/30/25 16:17 cramps/diarrhea aripiprazole AdvReac unknown Verified 07/30/25 16:17 haloperidol AdvReac unknown Verified 07/30/25 16:17 metoclopramide AdvReac unknown Verified 07/30/25 16:17 olanzapine AdvReac unknown Verified 07/30/25 16:17 prochlorperazine AdvReac unknown Verified 07/30/25 16:17 promethazine AdvReac unknown Verified 07/30/25 16:17 Family History Brother Cancer THROAT Mother Leukemia Sister Breast cancer Surgical History Hx of right cataract extraction Hx of left cataract extraction Hx of eye surgery History of hydrocelectomy Hx of hernia repair Hx of colonoscopy Social History household members: significant other housing: house current occupational status: retired Smoking Status: Former smoker alcohol intake: never substance use type: does not use ROS Constitutional Constitutional: Reports chills, fatigue, fever(s), malaise and weakness; Denies anorexia Eyes Eyes: Denies change in vision ENT HEENT: Denies dysphagia, headache(s) or sore throat Cardiovascular Cardiovascular: Reports rapid heart rate; Denies chest pain, dyspnea on exertion, edema, lightheadedness, orthopnea, palpitations or syncope Respiratory/Chest Respiratory/Chest: Denies cough, dyspnea, productive cough, shortness of breath at rest or shortness of breath with exertion Gastrointestinal Gastrointestinal: Denies abdominal pain, nausea or vomiting Genitourinary Genitourinary: Denies dysuria Neurologic Neurologic: Reports confusion; Denies dizziness, focal weakness, headache(s), numbness or seizures Psychiatric Psychiatric: Denies anxiety or depression Vital Signs Vital Signs Vital Signs: 07/30/25 16:17 07/30/25 16:20 07/30/25 17:02 Temperature 100.2 F H 101.0 F H Temperature Source Oral Oral Pulse Rate 117 H 132 H Respiratory Rate 20 H 19 H Respiratory Effort Normal Non-Labored Respiratory Pattern Normal Blood Pressure 130/72 H 128/78 H Blood Pressure Mean 91 94 Pulse Ox 98 97 Oxygen Delivery Method Room Air Room Air 07/30/25 17:12 07/30/25 18:20 Temperature 100.7 F H Temperature Source Oral Pulse Rate 126 H Respiratory Rate 16 Respiratory Effort Respiratory Pattern Blood Pressure 133/81 H Blood Pressure Mean 98 Pulse Ox 98 Oxygen Delivery Method Room Air Room Air Weight Weight: 159 lb 9.835 oz Body Mass Index (BMI) 24.3 Physical Exam Const alert, no apparent distress and average body habitus Constitutional Narrative: looks very frail and weak General Appearance: cooperative HEENT normocephalic and head/scalp atraumatic HEENT Narrative: dry oral mucosa, has some superficial ulcerations on lips Eyes EOMs intact bilaterally and conjunctivae normal Neck supple and no JVD Resp Resp Narrative: mildly diminished breath sounds bibasally, no wheezes or crackles. On 2L of oxygen by nasal canula Cardio regular rhythm, S1 normal heart sound and S2 normal heart sound Cardio Narrative: sinus tachycardia GI normal to inspection, nondistended, normoactive bowel sounds, soft to palpation,non-tender and non-distended Extremity normal to inspection, full ROM and no clubbing, cyanosis or edema Neuro CN's II-XII intact bilaterally and moves all extremities Neuro Narrative: very frail and weak Sensorium / Orientation: awake and alert Results Lab / Micro Data 07/31/25 03:45 07/31/25 03:45 Labs: Laboratory Results - last 24 hr 07/30/25 16:04: WBC 1.0 L*, RBC 3.59 L, Hgb 10.7 L, Hct 31.5 L, MCV 87.7, MCH 29.8, MCHC 34.0, RDW Std Deviation 43.3, RDW Coeff of Macho 13.6, Plt Count TNP, MPV TNP, Immature Gran % (Auto) 0.000, Neut % (Auto) 45.1 L, Lymph % (Auto) 45.1H, [place] % (Auto) 7.8, Eos % (Auto) 0.0, Baso % (Auto) 2.0 H, Absolute Neuts (auto) 0.5 L, Absolute Lymphs (auto) 0.46 L, Nucleated RBC % 0, Diff Path ReviewMay foll, PT 13.8, INR 1.0, APTT 30.3, Sodium 133, Potassium 3.4, Chloride 97 L,Carbon Dioxide 25.3, Anion Gap 10, BUN 22 H, Creatinine 0.81, Estim Creat Clear Calc 69.20, Est GFR (MDRD) Non-Af 88, BUN/Creatinine Ratio 26.7 H, Glucose 110 H, Calcium 8.1, Total Bilirubin 0.66, AST 26, ALT 8, Alkaline Phosphatase 58, Total Protein 5.9, Albumin 3.4, Globulin 2.6, Albumin/Globulin Ratio 1.3 07/30/25 16:23: Lactic Acid < 1.0 07/30/25 18:51: Urine Color Straw, Urine Clarity Clear, Urine pH 7.0, Ur Specific [place] 1.010, Urine Protein Negative, Urine Glucose (UA) Normal, UrineKetones 5 H, Urine Occult Blood 10 H, Urine Nitrite Negative, Urine Bilirubin Negative, Urine Urobilinogen Normal, Ur Leukocyte Esterase Negative Imaging Radiology Impression Chest X-Ray 07/30/25 18:25 IMPRESSION: No Acute Findings. Reading Location: [facility] Assessment & Plan Assessment/Plan (1) Encephalopathy acute: (2) Neutropenia with fever: PLAN: Plan #Acute febrile neutropenia in the setting of metastatic oropharyngeal cancer * Admit to ICU due to concerns for sepsis and rapid deterioration in light of his immunocompromised state. Admitted with a complaint of fever. He had radiation today and chemotherapy 4 days ago. * Denies any urinary symptoms or any respiratory symptoms or abdominal symptoms. Patient is tachycardic with heart rate of 131. Lactic acid is less than 1. * Hydrate aggressively with IV fluids. Blood and urine cultures obtained. Started on IV vancomycin and Zosyn. * Neutropenic precautions. * consult critical care. * #PE * D dimer ordered due to tachcyardia. * D dimer was markedly elevated at ~ 7, so stat CTA chest done which showed pulmonary embolism of the right lower lobe subsegmenal branches. * patient started on therapeutic lovenox. * #parkinson's disease with Dementia: On levodopa carbidopa #GERD: PPI #Hypothyroidism: On Synthroid #BPH: On Flomax DVT prophylaxis: not indicated as patient started on therapeutic lovenox for newly diagnosed PE CODE STATUS:full code * Patient and counseled extensively about different types of CODE STATUS including full code, DNR CCA and DNR CCA. * Patients elects for him to be full code. * Total izjf-le-oakg time 17 minutes. Charges/Coding Visit Charges Inpatient E&M: 29098 Init Hosp L3 Procedures Hospitalists Procedures: 32173 Advncd Care Plan 30 Min 07/31/25 0654 <Electronically signed by Rain Gallagher MD> Cosigner Signature (if applicable): CC: Dr. Eloina Chi MD; Dr. Rain Gallagher MD~ Signed [facility] Work Phone: Hospital Discharge instructions Additional Instructions Deqi-spg-okwutxv medications as needed for pain. Return with new or worsening symptoms.[facility] Work Phone: Hospital Discharge instructionsAmbulatory Orders* General Surgery Location: None Selected * Nutrition Referral Location: None Selected * Oncology Location: None Selected * Speech Therapy Referral Location: None Selected [facility] Work Phone: Hospital Discharge instructionsAmbulatory Orders* Home Health Location: None Selected [facility] Work Phone: Progress note Author Simone Collins [facility] Note Date/Time July 05, 2025 9:06am [facility] [place] [address] OFFICE VISIT Date of Service: 07/05/25 0836 MR#: [id number] Acct: [id number] Name: GLENN PARADA DEV Rep #: [id number] : 1945 From: Simone Collins MD Age/Sex: 80/M [place] [facility] Status: Signed with Addenda ADDENDUM by Dr. Simone Collins MD on 07/05/25 at 0906 Subjective Date of Service 07/05/25 Chief Complaint F/u for Chemotherapy - Carboplatin/Paclitaxel weekly History of Present Illness 80-year-old man with Parkinson's disease presented with sore throat. He was found to have left tonsillar mass. CT scan of the neck on 05/03/2025 showed lefttonsillar mass 3.2 cm, necrotic level 2 node 1.4 cm and additional nodes in level 2 and 3. He was referred to Dr. Siegel at [facility], had left tonsil biopsy on 05/28/2025, pathology showed Invasive squamous cell carcinoma, HPV positive. Chemoradiation therapy was suggested as definitive treatment. He was diagnosed with Left Invasive tonsillar carcinoma, p16 positive, Stage I(cT2 cN1M0) Come in to chemotherapy-Taxol/Carboplatin weekly with Radiation therapy. R IC area Port was placed on 06/30/2025. PEG tube was placed on 06/30/2025. Interval History 80-year-old man with Parkinson's disease presented with sore throat. He was found to have left tonsillar mass. CT scan of the neck on 05/03/2025 showed lefttonsillar mass 3.2 cm, necrotic level 2 node 1.4 cm and additional nodes in level 2 and 3. He was referred to Dr. Siegel at [facility], had left tonsil biopsy on 05/28/2025, pathology showed Invasive squamous cell carcinoma, HPV positive. Chemoradiation therapy was suggested as definitive treatment. Physical Exam Narrative ECOG 1 Const alert, oriented x3 and no apparent distress HEENT normocephalic Eyes General Eye: normal appearance of both eyes Chest Chest Narrative: + Port R IC area. Resp clear to auscultation bilaterally Cardio regular rate, regular rhythm, S1 normal heart sound and S2 normal heart sound GI GI Narrative: + PEG tube Extremity no clubbing, cyanosis or edema Skin no rashes or lesions noted Neuro oriented x3, CN's II-XII intact bilaterally and moves all extremities Psych mental status grossly normal Attitude: calm and engaged Assessment and Plan Assessment and Plan (1) Squamous cell carcinoma of oropharynx: Status: Acute Comment: Invasive tonsillar carcinoma, p16 positive, Stage I(cT2 cN1 M0) Comes to start definitive treatment with combined chemotherapy and radiation therapy. Counts and chemistry reviewed, Ok for therapy. Plan: To proceed with C1 weekly carboplatin and Taxol today. 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 Plan: Will continue managing as stage I oropharyngeal cancer p16 positive, will assessnodule found on PET/CT scan after treatment. (4) Chemotherapy management, encounter for: Status: Acute Comment: Counts and chemistry reviewed, OK for therapy. Plan: To proceed with C1 Taxol/Carboplatin weekly. 07/05/25905 <Electronically signed by Simone Segovia> Date _ Simone Collins MD cc: Dr. Eloina Chi MD ~* Signed HPI Subjective Date of Service 07/05/25 Chief Complaint F/u for Chemotherapy - Carboplatin/Paclitaxel weekly History of Present Illness 80-year-old man with Parkinson's disease presented with sore throat. He was found to have left tonsillar mass. CT scan of the neck on 05/03/2025 showed lefttonsillar mass 3.2 cm, necrotic level 2 node 1.4 cm and additional nodes in level 2 and 3. He was referred to Dr. Siegel at [facility], had left tonsil biopsy on 05/28/2025, pathology showed Invasive squamous cell carcinoma, HPV positive. Chemoradiation therapy was suggested as definitive treatment. [facility] Medical History Encounter for education Wears glasses Cancer Alcohol [...] never substance use type: does not use Intake Vital Signs 06/22/25 08:24 07/05/25 08:37 Height 5 ft 8 in 5 ft 8 in Weight: 70.562 kg BMI 23.6 BP 106/70 Blood Pressure Location Lt brachial Position Sitting Respiration 16 Pulse 87 Pulse Source Monitor Temp 98.3 F Temperature Source Temporal Artery Pulse Oximetry (%) 95 Oxygen Delivery Method room air Intake Is patient in pain?: No Allergies gluten Allergy (Verified 07/05/25 08:39) Abd cramps/diarrhea aripiprazole Adverse Reaction (Verified 07/05/25 08:39) unknown haloperidol Adverse Reaction (Verified 07/05/25 08:39) unknown metoclopramide Adverse Reaction (Verified 07/05/25 08:39) unknown olanzapine Adverse Reaction (Verified 07/05/25 08:39) unknown prochlorperazine Adverse Reaction (Verified 07/05/25 08:39) unknown promethazine Adverse Reaction (Verified 07/05/25 08:39) unknown Medications ?Medication ?Instructions ?Recorded ?Confirmed ?Type levothyroxine 50 mcg tablet 50 mcg PO QDAY 03/05/24 History omeprazole 40 mg capsule,delayed 40 mg PO QDAY 4 07/05/25 History release tamsulosin 0.4 mg capsule 0.4 mg PO BID 03/05/2407/05 History prucalopride 2 mg tablet 2 mg PO DAILY 05/09/2407/05 History (Motegrity) carbidopa ER 25 mg-levodopa 100 mg 1 tab PO .qid 06/1007/05/25 History tablet,extended release fludrocortisone 0.1 mg tablet 0.1 mg PO QDAY 06/17/25 07/05/25 History lidocaine-prilocaine 2.5 %-2.5 % 1 applic topical ONCE PRN port 06/28/25 07/05/25 Rx topical cream access 30 days #30 grams ondansetron 8 mg disintegrating 8 mg PO Q8H PRN nausea and 06/28/25 07/05/25 Rx tablet vomiting #30 tabs tramadol 50 mg tablet 50 mg PO Q6H PRN pain #5 tab s 06/30/25 07/05/25 Rx Have you fallen in the past year?: No Central Venous Access Central Venous Access: Yes Port/PICC: Port Coding Level of Care Code Off vis,est,level 4 Exam Problem Focused Clinical Quality Measures Falls Risk Screening/Assistive Devices Have you fallen in the past year?: No 07/05/25 0854 <Electronically signed by Simone Segovia> Date _ Simone Collins MD Cosigner Signature: Date (if applicable) CC: Dr. Eloina Chi MD ~ [facility] Work Phone: Progress note Author En Guerin [facility] Note Date/Time July 07, 2025 2:24pm [facility] [address] [address] OFFICE VISIT Date of Service: 07/07/25 1359 MR#: [id number] Acct: [id number] Name: GLENN PARADA Rep #: [id number] : 1945 From: En smallwood DO Age/Sex: 80/M [place] [facility] Status: Signed Intake Vital Signs 07/05/25 11:46 07/07/25 14:02 Height 5 ft 8 in 5 ft 8 in Weight: 159 lb 7 oz BMI 24.2 BP 116/71 Blood Pressure Location Lt brachial Position Sitting Respiration 14 Pulse 83 Pulse Source Monitor Temp 97.3 F L Temperature Source Temporal Artery Pulse Oximetry (%) 97 Oxygen Delivery Method room air Intake Is patient in pain?: No Allergies gluten Allergy (Verified 07/07/25 14:02) Abd cramps/diarrhea aripiprazole Adverse Reaction (Verified 07/07/25 14:02) unknown haloperidol Adverse Reaction (Verified 07/07/25 14:02) unknown metoclopramide Adverse Reaction (Verified 07/07/25 14:02) unknown olanzapine Adverse Reaction (Verified 07/07/25 14:02) unknown prochlorperazine Adverse Reaction (Verified 07/07/25 14:02) unknown promethazine Adverse Reaction (Verified 07/07/25 14:02) unknown Medications ?Medication ?Instructions ?Recorded ?Confirmed ?Type levothyroxine 50 mcg tablet 50 mcg PO QDAY 03/05/24 History omeprazole 40 mg capsule,delayed 40 mg PO QDAY 4 07/07/25 History release tamsulosin 0.4 mg capsule 0.4 mg PO BID 03/05/2407/07 History prucalopride 2 mg tablet 2 mg PO DAILY 05/09/2407/07 History (Motegrity) carbidopa ER 25 mg-levodopa 100 mg 1 tab PO .qid 06/1007/07/25 History tablet,extended release fludrocortisone 0.1 mg tablet 0.1 mg PO QDAY 06/17/25 07/07/25 History lidocaine-prilocaine 2.5 %-2.5 % 1 applic topical ONCE PRN port 06/28/25 07/07/25 Rx topical cream access 30 days #30 grams ondansetron 8 mg disintegrating 8 mg PO Q8H PRN nausea and 06/28/25 07/07/25 Rx tablet vomiting #30 tabs tramadol 50 mg tablet 50 mg PO Q6H PRN pain #5 tab s 06/30/25 07/07/25 Rx MAGIC MOUTH WASH (BMX) 180 mL 15 ml PO .qid PRN pain # 180 mL 07/07/25 07/07/25 Rx suspension Have you fallen in the past year?: No Central Venous Access Central Venous Access: Yes Port/PICC: Port PFSH PFSH Medical History Encounter for education Wears glasses Cancer Alcohol [...] Cardiology follow-up encounter Celiac disease Home Medications ?Medication ?Instructions ?Recorded ?Last Taken ?Type levothyroxine 50 mcg tablet 50 mcg PO QDAY 03/05/24 History omeprazole 40 mg capsule,delayed 40 mg PO QDAY 4 06/30/25 History release tamsulosin 0.4 mg capsule 0.4 mg PO BID 03/05/2406/30 History prucalopride 2 mg tablet 2 mg PO DAILY 05/09/2406/30 History (Motegrity) carbidopa ER 25 mg-levodopa 100 mg 1 tab PO .qid 06/1006/30/25 History tablet,extended release fludrocortisone 0.1 mg tablet 0.1 mg PO QDAY 06/17/25 06/30/25 History lidocaine-prilocaine 2.5 %-2.5 % 1 applic topical ONCE PRN port 06/28/25 Unknown Rx topical cream access 30 days #30 grams ondansetron 8 mg disintegrating 8 mg PO Q8H PRN nausea and 06/28/25 Unknown Rx tablet vomiting #30 tabs tramadol 50 mg tablet 50 mg PO Q6H PRN pain #5 tab s 06/30/25 Unknown Rx MAGIC MOUTH WASH (BMX) 180 mL 15 ml PO .qid PRN pain # 180 mL 07/07/25 Unknown Rx suspension Allergy/AdvReac Type Severity Reaction Status Date / Time gluten Allergy Abd Verified 07/07/25 14:02 cramps/diarrhea aripiprazole AdvReac unknown Verified 07/07/25 14:02 haloperidol AdvReac unknown Verified 07/07/25 14:02 metoclopramide AdvReac unknown Verified 07/07/25 14:02 olanzapine AdvReac unknown Verified 07/07/25 14:02 prochlorperazine AdvReac unknown Verified 07/07/25 14:02 promethazine AdvReac unknown Verified 07/07/25 14:02 Family History Brother Cancer THROAT Mother Leukemia Sister Breast cancer Surgical History Hx of right cataract extraction Hx of left cataract extraction Hx of eye surgery History of hydrocelectomy Hx of hernia repair Hx of colonoscopy Social History household members: significant other housing: house current occupational status: retired Smoking Status: Former smoker alcohol intake: never substance use type: does not use Diagnosis: Glenn Parada is an 80 year-old male diagnosed with 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 Plan: Plan was made to complete definitive chemoradiation consisting of 6996 cGy delivered to the primary tumor in the left tonsillar region and gross adenopathyin the left neck, 5940 cGy delivered to the left neck levels 2-3, and 5412 cGy to the remaining left neck and contralateral neck all in 33 fractions. Treatment Data: Treatment Site: H&N Current total dose/Total dose planned: 636 cGy / 6996 cGy Fraction number: Chemotherapy: weekly cisplatin Subjective: Pain: 3-5 / 10 Fatigue: none ENT: no mucositis. No odynophagia or dysphagia. Normal taste, no xerostomia Skin: no erythema, rash, desquamation Nutrition/weight: Weight stable. Regular diet by mouth. No supplements, not using TF Rinses: doing baking soda/salt rises. doing green tea rinses Respiratory: no cough, SOB Objective: Weight: 159 lbs 7 oz Physical Exam: Gen: NAD ENT: no mucositis. No thrush or visualized lesions in the oral cavity or oropharynx. Skin: no erythema, rash, desquamation. Labs: 07/05/2025: CBC and CMP unremarkable Assessment & Plan Assessment/Plan (1) Squamous cell carcinoma of oropharynx: PLAN: Plan Assessment: Tolerating treatment well overall.? I reviewed and approved all treatment associated imaging. No treatment associated toxicities are noted at this time Plan: Continue treatment as planned.? I have reviewed potential treatment associated toxicities as well as timing for resolution and management. Skin: Skin care reviewed, continue lotion at least bid Pain: mild to moderate, MMW Rinses: recommended baking soda/salt rinses 4-6/d, green tea rinses 2-3/d Follow up next week or sooner if needed. Thank you for allowing me to participate in the management and care of your patient. If I may answer any questions in the interim, please do not hesitate tocontact me at any time. 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 07/07/25 1426 <Electronically signed by En Guerin DO> Date _ En Guerin DO Cosigner Signature: Date (if applicable) CC: ~ [facility] Work Phone: Progress note Author Jayashree Anderson [facility] Note Date/Time July 12, 2025 8:56am [facility] [address] [address] OFFICE VISIT Date of Service: 07/12/25 0752 MR#: [id number] Acct: [id number] Name: GLENN PARADA DEV Rep #: [id number] : 1945 From: Jayashree Costa ch CERAMIC TILE INSTALLATION HELPER 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 He was found to have left tonsillar mass. CT scan of the neck on 05/03/2025 showed lefttonsillar mass 3.2 cm, necrotic level 2 node 1.4 cm and additional nodes in level 2 and 3. He was referred to Dr. Siegel at [facility], had left tonsil biopsy on 05/28/2025, pathology showed Invasive squamous cell carcinoma, HPV positive. Began definitive chemoradiation with carboplatin/paclitaxel on 07/05/25. Interval History The patient is presenting to clinic accompanied by spouse for an evaluation anticipating he will begin cycle 2 carboplatin/taxol. Still taking PO nutrition, estimates PO fluid intake as 64 oz/day. Flushing PEGwith 60 ml daily. Denies throat pain. + Dizziness with positional changes. Chronic constipation, LBM 07/09/25. Takes senna/docusate sodium and miralax daily and motegrity as prescribed by GI. Specifically denies fever/chills, headache, CP, palpitations, cough, SOB, abd pain, N/V, numbness/tingling, and swelling of his extremities. [facility] Medical History Encounter for education Wears glasses Cancer Alcohol [...] in the interval HPI Intake Vital Signs 06/28/25 15:02 07/12/25 07:53 07/12/25 07:59 Height 5 ft 8 in 5 ft 8 in 5 ft 8 in Weight: 156 lb 9 oz BMI 23.8 BP 100/63 Blood Pressure Location Lt brachial Position Sitting Respiration 18 Pulse 102 H Pulse Source Monitor Temp 98.4 F Temperature Source Temporal Artery Pulse Oximetry (%) 96 Oxygen Delivery Method room air Intake Is patient in pain?: Yes Allergies gluten Allergy (Verified 07/12/25 07:58) Abd cramps/diarrhea aripiprazole Adverse Reaction (Verified 07/12/25 07:58) unknown haloperidol Adverse Reaction (Verified 07/12/25 07:58) unknown metoclopramide Adverse Reaction (Verified 07/12/25 07:58) unknown olanzapine Adverse Reaction (Verified 07/12/25 07:58) unknown prochlorperazine Adverse Reaction (Verified 07/12/25 07:58) unknown promethazine Adverse Reaction (Verified 07/12/25 07:58) unknown Medications ?Medication ?Instructions ?Recorded ?Confirmed ?Type levothyroxine 50 mcg tablet 50 mcg PO QDAY 03/05/24 History omeprazole 40 mg capsule,delayed 40 mg PO QDAY 4 07/07/25 History release tamsulosin 0.4 mg capsule 0.4 mg PO BID 03/05/2407/07 History prucalopride 2 mg tablet 2 mg PO DAILY 05/09/2407/07 History (Motegrity) carbidopa ER 25 mg-levodopa 100 mg 1 tab PO .qid 06/1007/07/25 History tablet,extended release fludrocortisone 0.1 mg tablet 0.1 mg PO QDAY 06/17/25 07/07/25 History lidocaine-prilocaine 2.5 %-2.5 % 1 applic topical ONCE PRN port 06/28/25 07/07/25 Rx topical cream access 30 days #30 grams ondansetron 8 mg disintegrating 8 mg PO Q8H PRN nausea and 06/28/25 07/07/25 Rx tablet vomiting #30 tabs tramadol 50 mg tablet 50 mg PO Q6H PRN pain #5 tab s 06/30/25 07/07/25 Rx MAGIC MOUTH WASH (BMX) 180 mL 15 ml PO .qid PRN pain # 180 mL 07/07/25 07/07/25 Rx suspension guaifenesin 600 mg tablet, 600 mg PO BID 07/12/2506/15 History extended release 12 hr (Mucinex) Have you fallen in the past year?: No Central Venous Access Central Venous Access: Yes Port/PICC: Port Laboratory Tests 07/12/25 07:42 WBC 4.8 Hgb 11.3 L Hct 32.6 L Plt Count 216 Absolute Neuts (auto) 3.1 Sodium 134 Potassium 3.6 Chloride 102 Carbon Dioxide 23.0 BUN 11 Creatinine 0.82 Glucose 163 H Calcium 8.4 Total Bilirubin 0.48 AST 21 ALT < 5 Alkaline Phosphatase 66 Albumin 3.4 Exam Physical Exam Narrative ECOG 1 Const alert, oriented x3 and no apparent distress HEENT normocephalic Eyes conjunctivae normal and no scleral icterus Neck Neck Narrative: +L upper jugular node. Chest palpation of breasts normal Resp clear to auscultation bilaterally Cardio regular rate, regular rhythm, S1 normal heart sound and S2 normal heart sound GI soft to palpation and non-tender no CVA tenderness Back/Spine thoracic and lumbar spine normal to inspection Extremity no clubbing, cyanosis or edema Skin no rashes or lesions noted Neuro oriented x3, CN's II-XII intact bilaterally and moves all extremities Neuro Narrative: gait slow. 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 Counts and chemistry reviewed, Ok for therapy. Plan: proceed with cycle 2 carbo/taxol. 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 Plan: Will continue managing as stage I oropharyngeal cancer p16 positive, will assessnodule found on PET/CT scan after treatment. (4) Chemotherapy management, encounter for: Status: Acute Comment: Counts and chemistry reviewed, OK for therapy. Clinical Quality Measures Falls Risk Screening/Assistive Devices Have you fallen in the past year?: No 07/12/25 0950 <Electronically signed by Jayashree juarez CERAMIC TILE INSTALLATION HELPER CERAMIC TILE INSTALLATION HELPER-C> Date _ Jayashree Anderson CERAMIC TILE INSTALLATION HELPER CERAMIC TILE INSTALLATION HELPER-C Cosigner Signature: Date (if applicable) CC: ~ [facility] Work Phone: Progress note Author Elizabeth Sexton [facility] Note Date/Time July 12, 2025 1:50pm [facility] [address] [place] [address]. [address] [place] [address] OFFICE VISIT Date of Service: 07/12/25 MR#: [id number] Acct: [id number] Name: GLENN PARADA DEV Rep #: [id number] : 1945 Provider: DIVYA Sexton Age/Sex: 80/M Location: [facility] Status: Signed Intake Vital Signs 06/30/25 07:23 07/07/25 14:02 07/12/25 07:59 Height 5 ft 8 in 5 ft 8 in 5 ft 8 in Weight: 156 lb 9 oz BMI 23.8 BP 100/63 Blood Pressure Location Lt brachial Position Sitting Respiration 18 Pulse 102 H Pulse Source Monitor Temp 98.4 F Pulse Oximetry (%) 96 Oxygen Delivery Method room air Intake Visit Reasons: SUTURE REMOVAL S/P PORT PLACEMENT 06-30 Chief Complaint: suture removal s/p port placement 06/30 Is patient in pain?: No Allergies gluten Allergy (Verified 07/12/25 13:39) Abd cramps/diarrhea aripiprazole Adverse Reaction (Verified 07/12/25 13:39) unknown haloperidol Adverse Reaction (Verified 07/12/25 13:39) unknown metoclopramide Adverse Reaction (Verified 07/12/25 13:39) unknown olanzapine Adverse Reaction (Verified 07/12/25 13:39) unknown prochlorperazine Adverse Reaction (Verified 07/12/25 13:39) unknown promethazine Adverse Reaction (Verified 07/12/25 13:39) unknown Medications ?Medication ?Instructions ?Recorded ?Confirmed ?Type levothyroxine 50 mcg tablet 50 mcg PO QDAY 03/05/24 History omeprazole 40 mg capsule,delayed 40 mg PO QDAY 4 07/12/25 History release tamsulosin 0.4 mg capsule 0.4 mg PO BID 03/05/2407/12 History prucalopride 2 mg tablet 2 mg PO DAILY 05/09/2407/12 History (Motegrity) carbidopa ER 25 mg-levodopa 100 mg 1 tab PO .qid 06/1007/12/25 History tablet,extended release fludrocortisone 0.1 mg tablet 0.1 mg PO QDAY 06/17/25 07/12/25 History lidocaine-prilocaine 2.5 %-2.5 % 1 applic topical ONCE PRN port 06/28/25 07/12/25 Rx topical cream access 30 days #30 grams ondansetron 8 mg disintegrating 8 mg PO Q8H PRN nausea and 06/28/25 07/12/25 Rx tablet vomiting #30 tabs tramadol 50 mg tablet 50 mg PO Q6H PRN pain #5 tab s 06/30/25 07/12/25 Rx MAGIC MOUTH WASH (BMX) 180 mL 15 ml PO .qid PRN pain # 180 mL 07/07/25 07/12/25 Rx suspension guaifenesin 600 mg tablet, 600 mg PO BID 07/12/2506/15 History extended release 12 hr (Mucinex) Have you fallen in the past year?: No Subjective Details: Patient is an 80 y/o M I am following s/p right IJ port placement and EGD with PEG tube placement by Dr. Ng on 06/30/25. Patient tolerated the procedure well. He notes no concerns with the port. Patient's spouse notes a little drainage surrounding the PEG tube. She flushes the tube daily. She changes the dressing daily and turns the hub of the PEG tube. He continues to eat and drink by mouth. Objective Details: Right chest- port intact. Incision c/d/i. No erythema or infection noted. All sutures were removed. Abdomen- PEG tube intact. There is a small amount of yellowish drainage. Slight redness under the hub. Non tender. No signs of infection. Drain dressing was applied and secured with tape. Coding Level of Care Code Global Post Op Diagnoses Port-A-Cath in place Z95.828 S/P percutaneous endoscopic gastrostomy (PEG) tube placement Z93.1 [facility] Medical History Encounter for education Wears glasses Cancer Alcohol [...] never substance use type: does not use Assessment and Plan (No Qualifiers) Assessment and Plan (1) Port-A-Cath in place: Status: Acute (2) S/P percutaneous endoscopic gastrostomy (PEG) tube placement: Status: Acute Plan Recommend leaving port incision open to air May continue to keep the PEG tube covered Continue to observe the fold near the PEG tube to be sure there is no skin breakdown Follow-up as needed 07/12/25 2480 <Electronically signed by Elizabeth GARCIAS PA-C> Date _ Elizabeth Mcbride Signature: Date (if applicable) CC: Dr. Eloina Chi MD ~ [facility] Work Phone: Progress note Author En Guerin [facility] Note Date/Time July 14, 2025 1: 54pm [facility] [address] [address] OFFICE VISIT Date of Service: 07/14/258 MR#: [id number] Acct: [id number] Name: GLENN PARADA DEV Rep #: [id number] : 1945 From: En smallwood DO Age/Sex: 80/M [place] [facility] [place] Status: Signed Intake Vital Signs 07/05/25 11:46 07/14/25 13:30 Height 5 ft 8 in 5 ft 8 in Weight: 160 lb 3 oz BMI 24.3 BP 127/69 H Blood Pressure Location Rt brachial Position Sitting Respiration 18 Pulse 86 Pulse Source Monitor Temp 96.8 F L Temperature Source Temporal Artery Pulse Oximetry (%) 96 Oxygen Delivery Method room air Intake Is patient in pain?: No Allergies gluten Allergy (Verified 07/14/25 13:30) Abd cramps/diarrhea aripiprazole Adverse Reaction (Verified 07/14/25 13:30) unknown haloperidol Adverse Reaction (Verified 07/14/25 13:30) unknown metoclopramide Adverse Reaction (Verified 07/14/25 13:30) unknown olanzapine Adverse Reaction (Verified 07/14/25 13:30) unknown prochlorperazine Adverse Reaction (Verified 07/14/25 13:30) unknown promethazine Adverse Reaction (Verified 07/14/25 13:30) unknown Medications ?Medication ?Instructions ?Recorded ?Confirmed ?Type levothyroxine 50 mcg tablet 50 mcg PO QDAY 03/05/24 History omeprazole 40 mg capsule,delayed 40 mg PO QDAY 4 07/14/25 History release tamsulosin 0.4 mg capsule 0.4 mg PO BID 03/05/2407/14 History prucalopride 2 mg tablet 2 mg PO DAILY 05/09/2407/14 History (Motegrity) carbidopa ER 25 mg-levodopa 100 mg 1 tab PO .qid 06/1007/14/25 History tablet,extended release fludrocortisone 0.1 mg tablet 0.1 mg PO QDAY 06/17/25 07/14/25 History lidocaine-prilocaine 2.5 %-2.5 % 1 applic topical ONCE PRN port 06/28/25 07/14/25 Rx topical cream access 30 days #30 grams ondansetron 8 mg disintegrating 8 mg PO Q8H PRN nausea and 06/28/25 07/14/25 Rx tablet vomiting #30 tabs tramadol 50 mg tablet 50 mg PO Q6H PRN pain #5 tab s 06/30/25 07/14/25 Rx MAGIC MOUTH WASH (BMX) 180 mL 15 ml PO .qid PRN pain # 180 mL 07/07/25 07/14/25 Rx suspension guaifenesin 600 mg tablet, 600 mg PO BID 07/12/2511/07 History extended release 12 hr (Mucinex) Have you fallen in the past year?: No PFSH PFSH Medical History Encounter for education Wears glasses Cancer Alcohol [...] Cardiology follow-up encounter Celiac disease Home Medications ?Medication ?Instructions ?Recorded ?Last Taken ?Type levothyroxine 50 mcg tablet 50 mcg PO QDAY 03/05/24 History omeprazole 40 mg capsule,delayed 40 mg PO QDAY 4 06/30/25 History release tamsulosin 0.4 mg capsule 0.4 mg PO BID 03/05/2406/30 History prucalopride 2 mg tablet 2 mg PO DAILY 05/09/2406/30 History (Motegrity) carbidopa ER 25 mg-levodopa 100 mg 1 tab PO .qid 06/1006/30/25 History tablet,extended release fludrocortisone 0.1 mg tablet 0.1 mg PO QDAY 06/17/25 06/30/25 History lidocaine-prilocaine 2.5 %-2.5 % 1 applic topical ONCE PRN port 06/28/25 Unknown Rx topical cream access 30 days #30 grams ondansetron 8 mg disintegrating 8 mg PO Q8H PRN nausea and 06/28/25 Unknown Rx tablet vomiting #30 tabs tramadol 50 mg tablet 50 mg PO Q6H PRN pain #5 tab s 06/30/25 Unknown Rx MAGIC MOUTH WASH (BMX) 180 mL 15 ml PO .qid PRN pain # 180 mL 07/07/25 Unknown Rx suspension guaifenesin 600 mg tablet, 600 mg PO BID 07/12/25 Unkn own History extended release 12 hr (Mucinex) Allergy/AdvReac Type Severity Reaction Status Date / Time gluten Allergy Abd Verified 07/14/25 13:30 cramps/diarrhea aripiprazole AdvReac unknown Verified 07/14/25 13:30 haloperidol AdvReac unknown Verified 07/14/25 13:30 metoclopramide AdvReac unknown Verified 07/14/25 13:30 olanzapine AdvReac unknown Verified 07/14/25 13:30 prochlorperazine AdvReac unknown Verified 07/14/25 13:30 promethazine AdvReac unknown Verified 07/14/25 13:30 Family History Brother Cancer THROAT Mother Leukemia Sister Breast cancer Surgical History Hx of right cataract extraction Hx of left cataract extraction Hx of eye surgery History of hydrocelectomy Hx of hernia repair Hx of colonoscopy Social History household members: significant other housing: house current occupational status: retired Smoking Status: Former smoker alcohol intake: never substance use type: does not use Diagnosis: Glenn Parada is an 80 year-old male diagnosed with 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 Plan: Plan was made to complete definitive chemoradiation consisting of 6996 cGy delivered to the primary tumor in the left tonsillar region and gross adenopathyin the left neck, 5940 cGy delivered to the left neck levels 2-3, and 5412 cGy to the remaining left neck and contralateral neck all in 33 fractions. Treatment Data: Treatment Site: H&N Current total dose/Total dose planned: 1696 cGy / 6996 cGy Fraction number: Chemotherapy: weekly cisplatin Subjective: Pain: 3-5 / 10 Fatigue: none ENT: no mucositis. No odynophagia or dysphagia. decreased taste, no xerostomia Skin: no erythema, rash, desquamation Nutrition/weight: Weight stable. Regular diet by mouth. No supplements, not using TF Rinses: doing baking soda/salt rises. doing green tea rinses Respiratory: no cough, SOB Objective: Weight: 07/07: 159 lbs 7 oz; 07/14: 160 lbs 3 oz Physical Exam: Gen: NAD ENT: no mucositis. No thrush or visualized lesions in the oral cavity or oropharynx. Tumor stable to improved Skin: no erythema, rash, desquamation. Labs: 07/12/2025: CBC and CMP unremarkable Assessment & Plan Assessment/Plan (1) Squamous cell carcinoma of oropharynx: PLAN: Plan Assessment: Tolerating treatment well overall.? I reviewed and approved all treatment associated imaging. Plan: Continue treatment as planned.? I have reviewed potential treatment associated toxicities as well as timing for resolution and management. Skin: Skin care reviewed, continue lotion at least bid Pain: mild to moderate, MMW Rinses: recommended baking soda/salt rinses 4-6/d, green tea rinses 2-3/d Follow up next week or sooner if needed. Thank you for allowing me to participate in the management and care of your patient. If I may answer any questions in the interim, please do not hesitate tocontact me at any time. 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 07/14/25 1409 <Electronically signed by En Guerin DO> Date _ En Guerin DO Cosigner Signature: Date (if applicable) CC: ~ [facility] Work Phone: Progress note Author Simone Collins [facility] Note Date/Time July 19, 2025 8: 56am [facility] [address] [address] OFFICE VISIT Date of Service: 07/19/25 0823 MR#: [id number] Acct: [id number] Name: GLENN PARADA DEV Rep #: [id number] : 1945 From: Simone Collins MD Age/Sex: 80/M [place] [facility] [place] Status: Signed HPI Subjective Date of Service 07/19/25 Chief Complaint F/u for chemotherapy. History of Present Illness 80-year-old man with Parkinson's disease presented with sore throat. He was found to have left tonsillar mass. CT scan of the neck on 05/03/2025 showed lefttonsillar mass 3.2 cm, necrotic level 2 node 1.4 cm and additional nodes in level 2 and 3. He was referred to Dr. Siegel at [facility], had left tonsil biopsy on 05/28/2025, pathology showed Invasive squamous cell carcinoma, HPV positive. Began definitive chemoradiation with carboplatin/paclitaxel on 07/05/25. Comes for C3. Feels well. [facility] Medical History Encounter for education Wears glasses Cancer Alcohol [...] never substance use type: does not use Intake Vital Signs 06/28/25 15:02 07/19/25 08:24 Height 5 ft 8 in 5 ft 8 in Weight: 69.598 kg BMI 23.3 BP 100/62 Blood Pressure Location Lt brachial Position Sitting Respiration 18 Pulse 88 Pulse Source Monitor Temp 98.4 F Temperature Source Temporal Artery Pulse Oximetry (%) 96 Oxygen Delivery Method room air Intake Accompanied by: Is patient in pain?: No Allergies gluten Allergy (Verified 07/19/25 08:36) Abd cramps/diarrhea aripiprazole Adverse Reaction (Verified 07/19/25 08:36) unknown haloperidol Adverse Reaction (Verified 07/19/25 08:36) unknown metoclopramide Adverse Reaction (Verified 07/19/25 08:36) unknown olanzapine Adverse Reaction (Verified 07/19/25 08:36) unknown prochlorperazine Adverse Reaction (Verified 07/19/25 08:36) unknown promethazine Adverse Reaction (Verified 07/19/25 08:36) unknown Medications ?Medication ?Instructions ?Recorded ?Confirmed ?Type levothyroxine 50 mcg tablet 50 mcg PO QDAY 03/05/24 History omeprazole 40 mg capsule,delayed 40 mg PO QDAY 4 07/19/25 History release tamsulosin 0.4 mg capsule 0.4 mg PO BID 03/05/2407/19 History prucalopride 2 mg tablet 2 mg PO DAILY 05/09/2407/19 History (Motegrity) carbidopa ER 25 mg-levodopa 100 mg 1 tab PO .qid 06/1007/19/25 History tablet,extended release fludrocortisone 0.1 mg tablet 0.1 mg PO QDAY 06/17/25 07/19/25 History lidocaine-prilocaine 2.5 %-2.5 % 1 applic topical ONCE PRN port 06/28/25 07/19/25 Rx topical cream access 30 days #30 grams ondansetron 8 mg disintegrating 8 mg PO Q8H PRN nausea and 06/28/25 07/19/25 Rx tablet vomiting #30 tabs tramadol 50 mg tablet 50 mg PO Q6H PRN pain #5 tab s 06/30/25 07/19/25 Rx MAGIC MOUTH WASH (BMX) 180 mL 15 ml PO .qid PRN pain # 180 mL 07/07/25 07/19/25 Rx suspension guaifenesin 600 mg tablet, 600 mg PO BID 07/12/2504/07 History extended release 12 hr (Mucinex) Have you fallen in the past year?: No Central Venous Access Central Venous Access: Yes Port/PICC: Port Exam Physical Exam Narrative ECOG 1 Const alert, oriented x3 and no apparent distress HEENT normocephalic Eyes conjunctivae normal and no scleral icterus Neck Neck Narrative: +L upper jugular node. Chest Chest Narrative: +Port R IC area. Resp clear to auscultation bilaterally Cardio regular rate, regular rhythm, S1 normal heart sound and S2 normal heart sound GI soft to palpation and non-tender GI Narrative: +PEG tube. no CVA tenderness Back/Spine thoracic and lumbar spine normal to inspection Extremity no clubbing, cyanosis or edema Skin no rashes or lesions noted Neuro oriented x3, CN's II-XII intact bilaterally and moves all extremities Neuro Narrative: gait slow. 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 Started weekly Taxol and Carboplatin on 07/05/2025. Comes for C3. Tolerating therapy. Counts and chemistry reviewed, Ok for therapy. Plan: To proceed with cycle 3 weekly carbo/taxol. 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 (3) Nodule of chest wall: Status: Acute Comment: Hypermetabolic nodule on the left posterior upper chest wall, clinically not palpable. Plan: Will continue managing as stage I oropharyngeal cancer p16 positive, will assessnodule found on PET/CT scan after treatment. (4) Chemotherapy management, encounter for: Status: Acute Comment: Counts and chemistry reviewed, OK for therapy. Plan: To proceed with C3 weekly Taxol/Carboplatin. Plan Details Follow Up: 1 Week Clinical Quality Measures Falls Risk Screening/Assistive Devices Have you fallen in the past year?: No 07/19/25 0902 <Electronically signed by Simone Segovia> Date _ Simone Collins MD Cosigner Signature: Date (if applicable) CC: Dr. Eloina Chi MD ~ [facility] Work Phone: Progress note Author En Guerin [facility] Note Date/Time July 21, 2025 1: 52pm [facility] [address] [place] [address] OFFICE VISIT Date of Service: 07/21/25 1329 MR#: [id number] Acct: [id number] Name: GLENN PARADA DEV Rep #: [id number] : 1945 From: En smallwood DO Age/Sex: 80/M [place] [facility] [place] Status: Signed Intake Vital Signs 07/05/25 11:46 07/19/25 09:57 07/21/25 13:35 Height 5 ft 8 in 5 ft 8 in 5 ft 8 in Weight: 157 lb 2 oz BMI 23.8 BP 118/72 Blood Pressure Location Rt brachial Position Sitting Respiration 16 Pulse 89 Pulse Source Monitor Temp 97.4 F L Temperature Source Temporal Artery Pulse Oximetry (%) 99 Oxygen Delivery Method room air Intake Is patient in pain?: No Allergies gluten Allergy (Verified 07/21/25 13:34) Abd cramps/diarrhea aripiprazole Adverse Reaction (Verified 07/21/25 13:34) unknown haloperidol Adverse Reaction (Verified 07/21/25 13:34) unknown metoclopramide Adverse Reaction (Verified 07/21/25 13:34) unknown olanzapine Adverse Reaction (Verified 07/21/25 13:34) unknown prochlorperazine Adverse Reaction (Verified 07/21/25 13:34) unknown promethazine Adverse Reaction (Verified 07/21/25 13:34) unknown Medications ?Medication ?Instructions ?Recorded ?Confirmed ?Type levothyroxine 50 mcg tablet 50 mcg PO QDAY 03/05/24 History omeprazole 40 mg capsule,delayed 40 mg PO QDAY 4 07/21/25 History release tamsulosin 0.4 mg capsule 0.4 mg PO BID 03/05/2407/21 History prucalopride 2 mg tablet 2 mg PO DAILY 05/09/2407/21 History (Motegrity) carbidopa ER 25 mg-levodopa 100 mg 1 tab PO .qid 06/1007/21/25 History tablet,extended release fludrocortisone 0.1 mg tablet 0.1 mg PO QDAY 06/17/25 07/21/25 History lidocaine-prilocaine 2.5 %-2.5 % 1 applic topical ONCE PRN port 06/28/25 07/21/25 Rx topical cream access 30 days #30 grams ondansetron 8 mg disintegrating 8 mg PO Q8H PRN nausea and 06/28/25 07/21/25 Rx tablet vomiting #30 tabs tramadol 50 mg tablet 50 mg PO Q6H PRN pain #5 tab s 06/30/25 07/21/25 Rx MAGIC MOUTH WASH (BMX) 180 mL 15 ml PO .qid PRN pain # 180 mL 07/07/25 07/21/25 Rx suspension guaifenesin 600 mg tablet, 600 mg PO BID 07/12/25 10/06/07 History extended release 12 hr (Mucinex) Have you fallen in the past year?: No Central Venous Access Central Venous Access: Yes Port/PICC: Port PFSH PFSH Medical History Encounter for education Wears glasses Cancer Alcohol [...] Cardiology follow-up encounter Celiac disease Home Medications ?Medication ?Instructions ?Recorded ?Last Taken ?Type levothyroxine 50 mcg tablet 50 mcg PO QDAY 03/05/24 History omeprazole 40 mg capsule,delayed 40 mg PO QDAY 4 06/30/25 History release tamsulosin 0.4 mg capsule 0.4 mg PO BID 03/05/2406/30 History prucalopride 2 mg tablet 2 mg PO DAILY 05/09/2406/30 History (Motegrity) carbidopa ER 25 mg-levodopa 100 mg 1 tab PO .qid 06/1006/30/25 History tablet,extended release fludrocortisone 0.1 mg tablet 0.1 mg PO QDAY 06/17/25 06/30/25 History lidocaine-prilocaine 2.5 %-2.5 % 1 applic topical ONCE PRN port 06/28/25 Unknown Rx topical cream access 30 days #30 grams ondansetron 8 mg disintegrating 8 mg PO Q8H PRN nausea and 06/28/25 Unknown Rx tablet vomiting #30 tabs tramadol 50 mg tablet 50 mg PO Q6H PRN pain #5 tab s 06/30/25 Unknown Rx MAGIC MOUTH WASH (BMX) 180 mL 15 ml PO .qid PRN pain # 180 mL 09/24/25 Unknown Rx suspension guaifenesin 600 mg tablet, 600 mg PO BID 07/12/25 Unkn own History extended release 12 hr (Mucinex) Allergy/AdvReac Type Severity Reaction Status Date / Time gluten Allergy Abd Verified 07/21/25 13:34 cramps/diarrhea aripiprazole AdvReac unknown Verified 07/21/25 13:34 haloperidol AdvReac unknown Verified 07/21/25 13:34 metoclopramide AdvReac unknown Verified 07/21/25 13:34 olanzapine AdvReac unknown Verified 07/21/25 13:34 prochlorperazine AdvReac unknown Verified 07/21/25 13:34 promethazine AdvReac unknown Verified 07/21/25 13:34 Family History Brother Cancer THROAT Mother Leukemia Sister Breast cancer Surgical History Hx of right cataract extraction Hx of left cataract extraction Hx of eye surgery History of hydrocelectomy Hx of hernia repair Hx of colonoscopy Social History household members: significant other housing: house current occupational status: retired Smoking Status: Former smoker alcohol intake: never substance use type: does not use Diagnosis: Glenn Parada is an 80 year-old male diagnosed with 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 Plan: Plan was made to complete definitive chemoradiation consisting of 6996 cGy delivered to the primary tumor in the left tonsillar region and gross adenopathyin the left neck, 5940 cGy delivered to the left neck levels 2-3, and 5412 cGy to the remaining left neck and contralateral neck all in 33 fractions. Treatment Data: Treatment Site: H&N Current total dose/Total dose planned: 2756 cGy / 6996 cGy Fraction number: Chemotherapy: weekly cisplatin Subjective: Pain: 3-5 / 10 Fatigue: none ENT: mild to moderate mucositis. mild odynophagia, no dysphagia. decreased taste, severe xerostomia Skin: no erythema, rash, desquamation Nutrition/weight: Weight stable. Regular diet by mouth. No supplements, not using TF Rinses: doing baking soda/salt rises. doing green tea rinses Respiratory: no cough, SOB Objective: Weight: 07/07: 159 lbs 7 oz; 07/14: 160 lbs 3 oz, 07/21: 157 lbs 2 oz Physical Exam: Gen: NAD ENT: moderate oropharyngeal mucositis. No thrush or visualized lesions in the oral cavity or oropharynx. Tumor improved Skin: no erythema, rash, desquamation. Labs: 07/19/2025: CBC and CMP unremarkable Assessment & Plan Assessment/Plan (1) Squamous cell carcinoma of oropharynx: PLAN: Plan Assessment: Tolerating treatment well overall.? I reviewed and approved all treatment associated imaging. mucositis, mild pain, MMW, rinses xerostomia, biotene and water Plan: Continue treatment as planned.? I have reviewed potential treatment associated toxicities as well as timing for resolution and management. Skin: Skin care reviewed, continue lotion at least bid Pain: mild to moderate, MMW Rinses: recommended baking soda/salt rinses 4-6/d, green tea rinses 2-3/d Follow up next week or sooner if needed. Thank you for allowing me to participate in the management and care of your patient. If I may answer any questions in the interim, please do not hesitate tocontact me at any time. 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 07/21/25 1352 <Electronically signed by En Guerin DO> Date _ En Kebedeigncristina Signature: Date (if applicable) CC: ~ [facility] Work Phone: Progress note Author Simone Collins [facility] Note Date/Time July 26, 2025 9 :38am [facility] [address] [place] [address] OFFICE VISIT Date of Service: 07/26/25 0836 MR#: [id number] Acct: [id number] Name: GLENN PARADA DEV Rep #: [id number] : 1945 From: Simone Collins MD Age/Sex: 80/M [place] [facility] [place] Status: Signed HPI Subjective Date of Service 07/26/25 Chief Complaint F/u for chemotherapy. History of Present Illness 80-year-old man with Parkinson's disease presented with sore throat. He was found to have left tonsillar mass. CT scan of the neck on 05/03/2025 showed lefttonsillar mass 3.2 cm, necrotic level 2 node 1.4 cm and additional nodes in level 2 and 3. He was referred to Dr. Siegel at [facility], had left tonsil biopsy on 05/28/2025, pathology showed Invasive squamous cell carcinoma, HPV positive. Began definitive chemoradiation with carboplatin/paclitaxel on 07/05/25. Comes for C4. Feels well. Fell when he was getting out of bed. [facility] Medical History Encounter for education Wears glasses Cancer Alcohol [...] and no addt'l complaints, except as documented and abnormal movements Psychiatric Psychiatric: Reports systems reviewed and no addt'l complaints, except as documented Endocrine Endocrinology: Reports systems reviewed and no addt'l complaints, except as documented Hematologic/Lymphatic Hematologic/Lymphatic: Reports systems reviewed and no addt'l complaints, exceptas documented Allergic/Immunologic Allergic/Immunologic: Reports systems reviewed and no addt'l complaints, except as documented Intake Vital Signs 06/28/25 15:02 07/26/25 08:39 Height 5 ft 8 in 5 ft 8 in Weight: 67.16 kg BMI 22.5 BP 90/55 L Blood Pressure Location Rt brachial Position Sitting Respiration 18 Pulse 86 Pulse Source Monitor Temp 99 F Temperature Source Temporal Artery Pulse Oximetry (%) 93 Oxygen Delivery Method room air Intake Accompanied by: Is patient in pain?: Yes (sore throat) Pain scale (1-10): 4 Allergies gluten Allergy (Verified 07/28/25 11:36) Abd cramps/diarrhea aripiprazole Adverse Reaction (Verified 07/28/25 11:36) unknown haloperidol Adverse Reaction (Verified 07/28/25 11:36) unknown metoclopramide Adverse Reaction (Verified 07/28/25 11:36) unknown olanzapine Adverse Reaction (Verified 07/28/25 11:36) unknown prochlorperazine Adverse Reaction (Verified 07/28/25 11:36) unknown promethazine Adverse Reaction (Verified 07/28/25 11:36) unknown Medications ?Medication ?Instructions ?Recorded ?Confirmed ?Type levothyroxine 50 mcg tablet 50 mcg PO QDAY 03/05/24 History omeprazole 40 mg capsule,delayed 40 mg PO QDAY 4 07/28/25 History release tamsulosin 0.4 mg capsule 0.4 mg PO BID 03/05/2407/28 History prucalopride 2 mg tablet 2 mg PO DAILY 05/09/2407/28 History (Motegrity) carbidopa ER 25 mg-levodopa 100 mg 1 tab PO .qid 06/1007/28/25 History tablet,extended release fludrocortisone 0.1 mg tablet 0.1 mg PO QDAY 06/17/25 07/28/25 History lidocaine-prilocaine 2.5 %-2.5 % 1 applic topical ONCE PRN port 06/28/25 07/28/25 Rx topical cream access 30 days #30 grams ondansetron 8 mg disintegrating 8 mg PO Q8H PRN nausea and 06/28/25 07/28/25 Rx tablet vomiting #30 tabs tramadol 50 mg tablet 50 mg PO Q6H PRN pain #5 tab s 06/30/25 07/28/25 Rx MAGIC MOUTH WASH (BMX) 180 mL 15 ml PO .qid PRN pain # 180 mL 07/07/25 07/28/25 Rx suspension sodium chloride 1,000 mg soluble 1,000 mg PO QD-QID MS N electrolyte 07/26/25 07/28/25 Rx tablet replenishment #30 tabs guaifenesin 100 mg/5 mL oral 200 mg (10 mL) PO Q4H PRN 07/28/25 07/28/25 Rx liquid (Guaifed (guaifenesin)) congestion #500 mL Have you fallen in the past year?: Yes (fell 07/26/25 AM) Central Venous Access Central Venous Access: Yes Port/PICC: Port Exam Physical Exam Narrative ECOG 1 Const alert, oriented x3 and no apparent distress HEENT normocephalic Eyes conjunctivae normal and no scleral icterus Neck Neck Narrative: +L upper jugular node. Chest Chest Narrative: +Port R IC area. Resp clear to auscultation bilaterally Cardio regular rate, regular rhythm, S1 normal heart sound and S2 normal heart sound GI soft to palpation and non-tender GI Narrative: +PEG tube. no CVA tenderness Back/Spine thoracic and lumbar spine normal to inspection Extremity no clubbing, cyanosis or edema Skin no rashes or lesions noted Neuro oriented x3, CN's II-XII intact bilaterally and moves all extremities Neuro Narrative: gait slow. 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 Started weekly Taxol and Carboplatin on 07/05/2025. Comes for C4. Tolerating therapy. Counts and chemistry reviewed, Ok for therapy. Plan: To proceed with cycle 4 weekly carbo/taxol. 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 (3) Nodule of chest wall: Status: Acute Comment: Hypermetabolic nodule on the left posterior upper chest wall, clinically not palpable. Plan: Will continue managing as stage I oropharyngeal cancer p16 positive, will assessnodule found on PET/CT scan after treatment. (4) Chemotherapy management, encounter for: Status: Acute Comment: Counts and chemistry reviewed, OK for therapy. Plan: To proceed with C4 weekly Taxol/Carboplatin. (5) Hyponatremia: Status: Acute Plan: To do IV hydration with NS. To start Sodium chloride tab 1-4 daily. (6) 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: Status: Acute Plan: To do Sodium bicarb mouthwash regularly. Use Magic mouthwash as prescribed. Orders: Referrals Home Health C10.9 - Malignant neoplasm of oropharynx, unspecified, C44.92 - Squamous cell carcinoma of skin, unspecified, C77.0 - Secondary and unspecified 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, face and neck, E87.1 - Hypo-osmolality and hyponatremia, K12.33 - Oral mucositis (ulcerative) due to radiation, R22.2 - Localized swelling, mass and lump, trunk, Y84.2 - Radiological procedure and radiotherapy as the cause of abnormal reaction of the patient, or of later complication, without mention of misadventure at the time of the procedure, Z51.11 - Encounter for antineoplastic chemotherapy Medications: New sodium chloride 1,000 mg PO QD-QID PRN 30 tabs 2RF electrolyte replenishment Clinical Quality Measures Falls Risk Screening/Assistive Devices Have you fallen in the past year?: Yes (fell 07/26/25 AM) 07/28/25 1700 <Electronically signed by Simone Segovia> Date _ Simone Collins MD Cosigner Signature: Date (if applicable) CC: Dr. Eloina Chi MD ~ [facility] Work Phone: Progress note Author En Truong [facility] Note Date/Time July 28, 2025 1 1:58am [facility] [address] [address] OFFICE VISIT Date of Service: 07/28/25 1133 MR#: [id number] Acct: [id number] Name: PARADARAKANGLENN DEV Rep #: [id number] : 1945 From: En smallwood DO Age/Sex: 80/M [place] [facility] [place] Status: Signed Intake Vital Signs 07/05/25 11:46 07/26/25 08:39 07/28/25 11:38 Height 5 ft 8 in 5 ft 8 in 5 ft 8 in Weight: 156 lb BMI 23.7 BP 119/68 Blood Pressure Location Rt brachial Position Sitting Respiration 16 Pulse 93 Pulse Source Monitor Temp 97.1 F L Temperature Source Temporal Artery Pulse Oximetry (%) 98 Oxygen Delivery Method room air Intake Is patient in pain?: Yes (back) Pain scale (1-10): 5 Allergies gluten Allergy (Verified 07/28/25 11:36) Abd cramps/diarrhea aripiprazole Adverse Reaction (Verified 07/28/25 11:36) unknown haloperidol Adverse Reaction (Verified 07/28/25 11:36) unknown metoclopramide Adverse Reaction (Verified 07/28/25 11:36) unknown olanzapine Adverse Reaction (Verified 07/28/25 11:36) unknown prochlorperazine Adverse Reaction (Verified 07/28/25 11:36) unknown promethazine Adverse Reaction (Verified 07/28/25 11:36) unknown Medications ?Medication ?Instructions ?Recorded ?Confirmed ?Type levothyroxine 50 mcg tablet 50 mcg PO QDAY 03/05/24 History omeprazole 40 mg capsule,delayed 40 mg PO QDAY 4 07/28/25 History release tamsulosin 0.4 mg capsule 0.4 mg PO BID 03/05/2407/28 History prucalopride 2 mg tablet 2 mg PO DAILY 05/09/2407/28 History (Motegrity) carbidopa ER 25 mg-levodopa 100 mg 1 tab PO .qid 06/1007/28/25 History tablet,extended release fludrocortisone 0.1 mg tablet 0.1 mg PO QDAY 06/17/25 07/28/25 History lidocaine-prilocaine 2.5 %-2.5 % 1 applic topical ONCE PRN port 06/28/25 07/28/25 Rx topical cream access 30 days #30 grams ondansetron 8 mg disintegrating 8 mg PO Q8H PRN nausea and 06/28/25 07/28/25 Rx tablet vomiting #30 tabs tramadol 50 mg tablet 50 mg PO Q6H PRN pain #5 tab s 06/30/25 07/28/25 Rx MAGIC MOUTH WASH (BMX) 180 mL 15 ml PO .qid PRN pain # 180 mL 07/07/25 07/28/25 Rx suspension sodium chloride 1,000 mg soluble 1,000 mg PO QD-QID MS N electrolyte 07/26/25 1 Rx tablet replenishment #30 tabs Have you fallen in the past year?: Yes Central Venous Access Central Venous Access: Yes Port/PICC: Port PFSH [facility] Medical History Encounter for education Wears glasses Cancer Alcohol [...] Cardiology follow-up encounter Celiac disease Home Medications ?Medication ?Instructions ?Recorded ?Last Taken ?Type levothyroxine 50 mcg tablet 50 mcg PO QDAY 03/05/24 History omeprazole 40 mg capsule,delayed 40 mg PO QDAY 4 06/30/25 History release tamsulosin 0.4 mg capsule 0.4 mg PO BID 03/05/2406/30 History prucalopride 2 mg tablet 2 mg PO DAILY 05/09/2406/30 History (Motegrity) carbidopa ER 25 mg-levodopa 100 mg 1 tab PO .qid 06/1006/30/25 History tablet,extended release fludrocortisone 0.1 mg tablet 0.1 mg PO QDAY 06/17/25 06/30/25 History lidocaine-prilocaine 2.5 %-2.5 % 1 applic topical ONCE PRN port 06/28/25 Unknown Rx topical cream access 30 days #30 grams ondansetron 8 mg disintegrating 8 mg PO Q8H PRN nausea and 06/28/25 Unknown Rx tablet vomiting #30 tabs tramadol 50 mg tablet 50 mg PO Q6H PRN pain #5 tab s 06/30/25 Unknown Rx MAGIC MOUTH WASH (BMX) 180 mL 15 ml PO .qid PRN pain # 180 mL 07/07/25 Unknown Rx suspension sodium chloride 1,000 mg soluble 1,000 mg PO QD-QID MS N electrolyte 07/26/25 Unknown Rx tablet replenishment #30 tabs Allergy/AdvReac Type Severity Reaction Status Date / Time gluten Allergy Abd Verified 07/28/25 11:36 cramps/diarrhea aripiprazole AdvReac unknown Verified 07/28/25 11:36 haloperidol AdvReac unknown Verified 07/28/25 11:36 metoclopramide AdvReac unknown Verified 07/28/25 11:36 olanzapine AdvReac unknown Verified 07/28/25 11:36 prochlorperazine AdvReac unknown Verified 07/28/25 11:36 promethazine AdvReac unknown Verified 07/28/25 11:36 Family History Brother Cancer THROAT Mother Leukemia Sister Breast cancer Surgical History Hx of right cataract extraction Hx of left cataract extraction Hx of eye surgery History of hydrocelectomy Hx of hernia repair Hx of colonoscopy Social History household members: significant other housing: house current occupational status: retired Smoking Status: Former smoker alcohol intake: never substance use type: does not use Diagnosis: Glenn Parada is an 80 year-old male diagnosed with 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 Plan: Plan was made to complete definitive chemoradiation consisting of 6996 cGy delivered to the primary tumor in the left tonsillar region and gross adenopathyin the left neck, 5940 cGy delivered to the left neck levels 2-3, and 5412 cGy to the remaining left neck and contralateral neck all in 33 fractions. Treatment Data: Treatment Site: H&N Current total dose/Total dose planned: 3816 cGy / 6996 cGy Fraction number: Chemotherapy: weekly cisplatin Subjective: Pain: 5-7 / 10 Fatigue: none ENT: moderate mucositis. moderate odynophagia, no dysphagia. decreased taste, severe xerostomia Skin: no erythema, rash, desquamation Nutrition/weight: Weight stable. Softer diet by mouth. No supplements, not using TF Rinses: doing baking soda/salt rises. doing green tea rinses Respiratory: no cough, SOB Objective: Weight: 07/07: 159 lbs 7 oz; 07/14: 160 lbs 3 oz, 07/21: 157 lbs 2 oz, 07/28: 156 lbs Physical Exam: Gen: NAD ENT: moderate oropharyngeal mucositis. No thrush or visualized lesions in the oral cavity or oropharynx. Tumor improved Skin: no erythema, rash, desquamation. Labs: 07/26/2025: CBC and CMP unremarkable Assessment & Plan Assessment/Plan (1) Squamous cell carcinoma of oropharynx: PLAN: Plan Assessment: Tolerating treatment well overall.? I reviewed and approved all treatment associated imaging. mucositis, mild pain, MMW, rinses xerostomia, biotene and water mucus, continue mucinex will try liquid Plan: Continue treatment as planned.? I have reviewed potential treatment associated toxicities as well as timing for resolution and management. Skin: Skin care reviewed, continue lotion at least bid Pain: mild to moderate, MMW Rinses: recommended baking soda/salt rinses 4-6/d, green tea rinses 2-3/d Follow up next week or sooner if needed. Thank you for allowing me to participate in the management and care of your patient. If I may answer any questions in the interim, please do not hesitate tocontact me at any time. 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 07/28/25 1209 <Electronically signed by En Guerin DO> Date _ En Guerin DO Cosigner Signature: Date (if applicable) CC: ~ Rule. Work Phone: Progress note Author Dev Reardon [facility] Note Date/Time July 31, 2025 4 :59pm [facility] Medical Records Department [address] [place] [address] Progress Note - Hospitalist 07/31/25829 MR#: [id number] Acct: [id number] Name: GLENN PARADA DEV Rep #:[id number] : 1945 80 From: Dev Segovia PCP: Dr. Eloina Chi MD Status:ADM IN [facility]: [facility] Reason for Visit Chief Complaint: fever Objective Data Objective Data Vital Signs: Vital Signs Temp Pulse Resp BP Pulse Ox O2 Del Method O2 Flow Rate 97.5 F L 97 17 110/59 L 97 Nasal Cannula 2 07/31/25 07:00 07/31/25 07:00 07/31/25 07:00 07/31/25 07:00 07/31/25 07:00 07/31/25 07:00 07/31/25 07:00 Oxygen Flow Rate (L/min) 2 Oxygen Delivery Method Nasal Cannula Weight: 160 lb 11.472 oz Body Mass Index (BMI) 24.3 Intake & Output: Intake and Output for Last 24 Hours 07/29/25 07/30/25 07/31/25 23:59 23:59 23:59 Intake Total 3534.25 / 3584.25 1495 / 1495 Output Total 350 / 1900 1875 / 1875 Balance 3184.25 / 1684.25 -380 / -380 Lab / Micro Data 07/31/25 03:45 07/31/25 03:45 Labs: Laboratory Results - last 24 hr 07/30/25 16:04: WBC 1.0 L*, RBC 3.59 L, Hgb 10.7 L, Hct 31.5 L, MCV 87.7, MCH 29.8, MCHC 34.0, RDW Std Deviation 43.3, RDW Coeff of Macho 13.6, Plt Count TNP, MPV TNP, Immature Gran % (Auto) 0.000, Neut % (Auto) 45.1 L, Lymph % (Auto) 45.1H, [place] % (Auto) 7.8, Eos % (Auto) 0.0, Baso % (Auto) 2.0 H, Absolute Neuts (auto) 0.5 L, Absolute Lymphs (auto) 0.46 L, Nucleated RBC % 0, Diff Path ReviewMay foll, PT 13.8, INR 1.0, APTT 30.3, Sodium 133, Potassium 3.4, Chloride 97 L,Carbon Dioxide 25.3, Anion Gap 10, BUN 22 H, Creatinine 0.81, Estim Creat Clear Calc 69.20, Est GFR (MDRD) Non-Af 88, BUN/Creatinine Ratio 26.7 H, Glucose 110 H, Calcium 8.1, Total Bilirubin 0.66, AST 26, ALT 8, Alkaline Phosphatase 58, Total Protein 5.9, Albumin 3.4, Globulin 2.6, Albumin/Globulin Ratio 1.3 07/30/25 16:23: Lactic Acid < 1.0 07/30/25 18:51: Urine Color Straw, Urine Clarity Clear, Urine pH 7.0, Ur Specific [place] 1.010, Urine Protein Negative, Urine Glucose (UA) Normal, UrineKetones 5 H, Urine Occult Blood 10 H, Urine Nitrite Negative, Urine Bilirubin Negative, Urine Urobilinogen Normal, Ur Leukocyte Esterase Negative, Urine RBC 0-5 SEEN, Urine WBC 0-5 SEEN, Ur Squamous Epith Cells 0-5 SEEN, Urine Bacteria 0SEEN, Urine Mucus 0 SEEN 07/30/25 20:44: D-Dimer Quant (PE/DVT) 7.44 H* 07/30/25 20:54: MRSA (PCR) Negative 07/31/25 03:45: WBC 1.4 L*, RBC 3.04 L, Hgb 9.0 L, Hct 26.5 L, MCV 87.2, MCH 29.6, MCHC 34.0, RDW Std Deviation 42.4, RDW Coeff of Macho 13.6, Plt Count 129 L,MPV 9.9, Immature Gran % (Auto) 0.700, Neut % (Auto) 68.4, Lymph % (Auto) 19.9, [place] % (Auto) 8.1, Eos % (Auto) 0.7, Baso % (Auto) 2.2 H, Absolute Neuts (auto) 0.9 L, Absolute Lymphs (auto) 0.27 L, Nucleated RBC % 0, Differential Comment SCANNED, [place] Cells 1+, Sodium 138, Potassium 3.0 L, Chloride 105, Carbon Dioxide 23.9, Anion Gap 9, BUN 12, Creatinine 0.70, Estim Creat Clear Calc 70.06, Est GFR (MDRD) Non-Af 93, BUN/Creatinine Ratio 17.8, Glucose 110 H, Calcium 6.9 L Micro: Microbiology 07/30/25 21:57 Mucosa - Nasopharyngeal Respiratory Panel (PCR) - Final Radiography Diagnostic Testing: Radiology Impression Chest X-Ray 07/30/25 18:25 IMPRESSION: No Acute Findings. Reading Location: [facility] Chest CTA 07/30/25 22:16 IMPRESSION: Right lower lobe segmental branches pulmonary emboli. No evidence of large central or massive pulmonary embolus. No evidence of cardiac strain. Minimal bilateral pleural effusions. Passive atelectatic airspace disease in the lower lobes. Mild interstitial pulmonary congestion. Right Port-A-Cath is in good position. Mild cardiomegaly. Small sliding hiatal hernia. Left renal simple cyst measuring 3.5 cm. Chronic deformity of the posterior arch of the left 11th rib. I discussed the findings with NIGEL Natarajan in the ICU at 12:33 a.m. EST. Reading Location: [place] [address] Physical Exam Narrative Seen and examined Patient has swelling over oropharyngeal and throat region. On tube feed throughPEG tube Physical exam General: Alert, Oriented x3, Cooperative HEENT: Atraumatic, PERRLA, EOMI, Normocephalic. Oral: Yellowish patch over left lateral margin of anterior tongue. Thick saliva/crusted lesions around lips. Oral gingivitis/soreness Neck: Supple, No JVD, Negative Carotid Bruits Chest wall/Lungs: Air entry diminished in bilateral lung bases. No crepitation/rhonchi Cardiovascular: Regular rate and rhythm, Normal S1,S2, No M/G/R Abdomen: PEG tube bowel Sounds Present, Soft, Non Tender, Non-Distended : No dysuria. No renal angle tenderness. No suprapubic tenderness. Extremities: Mild leg edema, Capillary Refill Less than 3 Seconds Skin: No rashes, No breakdown Musculoskeletal: Decreased muscle strength of knees and hip joints. No Tenderness to Palpation of Joints or Extremities Neurological: DTR 2+/4. No acute focal neurological deficit. Psych/Mental Status: Flat affect. 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 #Acute febrile neutropenia in the setting of metastatic oropharyngeal cancer * Patient is admitted to ICU due to concerns for sepsis and rapid deterioration in light of his immunocompromised state. Admitted with a complaint of fever. He had radiation on day of admission and chemotherapy 4 days ago. * Denies any urinary symptoms or any respiratory symptoms or abdominal symptoms. Patient is tachycardic with heart rate of 131. Lactic acid is less than 1. * Patient was hydrated hydrate aggressively with IV fluids. Continue IV vancomycin and Zosyn. * Neutropenic precautions. * consult critical care. * 07/31: Low-grade fever today. Tmax 102.0 on 07/30 about 8 PM. Leukopenia, thrombocytopenia and anemia/pancytopenia. ANC 0.9 K suggestive of moderate neutropenia, ALC 0.27/lymphopenia, basophils 2.2%. Does not meet criteria for sepsis. Urine culture exhibits no growth. Respiratory panel negative. #PE * D dimer ordered due to tachcyardia. * D dimer was markedly elevated at ~ 7, so stat CTA chest done which showed pulmonary embolism of the right lower lobe subsegmenal branches. * patient started on therapeutic lovenox. 05/31: Continue Lovenox. Shows mild decrease in hemoglobin and platelet count. Platelet count 0.183 on 07/26. 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 Corrected calcium is 7.4 therefore IV calcium gluconate ordered. CODE STATUS:full code * Patient and counseled extensively about different types of CODE STATUS including full code, DNR CCA and DNR CCA. * Patients elects for him to be full code. Microbiology Past 72 Hours 07/30/25 18:51 Urine, Clean Catch Urine Culture - Preliminary Culture exhibits no growth. 07/30/25 21:57 Mucosa - Nasopharyngeal Respiratory Panel (PCR) - Final Laboratory Results 07/30/25 16:04: WBC 1.0 L*, RBC 3.59 L, Hgb 10.7 L, Hct 31.5 L, MCV 87.7, MCH 29.8, MCHC 34.0, RDW Std Deviation 43.3, RDW Coeff of Macho 13.6, Plt Count TNP, MPV TNP, Immature Gran % (Auto) 0.000, Neut % (Auto) 45.1 L, Lymph % (Auto) 45.1H, [place] % (Auto) 7.8, Eos % (Auto) 0.0, Baso % (Auto) 2.0 H, Absolute Neuts (auto) 0.5 L, Absolute Lymphs (auto) 0.46 L, Nucleated RBC % 0, Diff Path ReviewMay foll, PT 13.8, INR 1.0, APTT 30.3, Sodium 133, Potassium 3.4, Chloride 97 L,Carbon Dioxide 25.3, Anion Gap 10, BUN 22 H, Creatinine 0.81, Estim Creat Clear Calc 69.20, Est GFR (MDRD) Non-Af 88, BUN/Creatinine Ratio 26.7 H, Glucose 110 H, Calcium 8.1, Total Bilirubin 0.66, AST 26, ALT 8, Alkaline Phosphatase 58, Total Protein 5.9, Albumin 3.4, Globulin 2.6, Albumin/Globulin Ratio 1.3 07/30/25 16:23: Lactic Acid < 1.0 07/30/25 18:51: Urine Color Straw, Urine Clarity Clear, Urine pH 7.0, Ur Specific [place] 1.010, Urine Protein Negative, Urine Glucose (UA) Normal, UrineKetones 5 H, Urine Occult Blood 10 H, Urine Nitrite Negative, Urine Bilirubin Negative, Urine Urobilinogen Normal, Ur Leukocyte Esterase Negative, Urine RBC 0-5 SEEN, Urine WBC 0-5 SEEN, Ur Squamous Epith Cells 0-5 SEEN, Urine Bacteria 0SEEN, Urine Mucus 0 SEEN 07/30/25 20:44: D-Dimer Quant (PE/DVT) 7.44 H* 07/30/25 20:54: MRSA (PCR) Negative 07/31/25 03:45: WBC 1.4 L*, RBC 3.04 L, Hgb 9.0 L, Hct 26.5 L, MCV 87.2, MCH 29.6, MCHC 34.0, RDW Std Deviation 42.4, RDW Coeff of Macho 13.6, Plt Count 129 L,MPV 9.9, Immature Gran % (Auto) 0.700, Neut % (Auto) 68.4, Lymph % (Auto) 19.9, [place] % (Auto) 8.1, Eos % (Auto) 0.7, Baso % (Auto) 2.2 H, Absolute Neuts (auto) 0.9 L, Absolute Lymphs (auto) 0.27 L, Nucleated RBC % 0, Differential Comment SCANNED, [place] Cells 1+, Sodium 138, Potassium 3.0 L, Chloride 105, Carbon Dioxide 23.9, Anion Gap 9, BUN 12, Creatinine 0.70, Estim Creat Clear Calc 70.06, Est GFR (MDRD) Non-Af 93, BUN/Creatinine Ratio 17.8, Glucose 110 H, Calcium 6.9 L Clinical Impression(s) from Imaging Studies Chest X-Ray 07/30/25 18:25 IMPRESSION: No Acute Findings. Reading Location: [facility] Chest CTA 07/30/25 22:16 IMPRESSION: Right lower lobe segmental branches pulmonary emboli. No evidence of large central or massive pulmonary embolus. No evidence of cardiac strain. Minimal bilateral pleural effusions. Passive atelectatic airspace disease in the lower lobes. Mild interstitial pulmonary congestion. Right Port-A-Cath is in good position. Mild cardiomegaly. Small sliding hiatal hernia. Left renal simple cyst measuring 3.5 cm. Chronic deformity of the posterior arch of the left 11th rib. I discussed the findings with NIGEL Natarajan in the ICU at 12:33 a.m. EST. Reading Location: [place] [address] Charges/Coding Visit Charges Inpatient E&M: 13356 Subs Hosp L3 07/31/25 1649 <Electronically signed by Dev Reardon MD> Cosigner Signature (if applicable): CC: ~ Signed [facility] Work Phone: Progress note Author Sundar Reid [facility] Note Date/Time July 31, 2025 1 1:43am [facility] Medical Records Department [address] [place] [address] Progress Note - Mental Hygienist 07/31/25 1134 MR#: [id number] Acct: [id number] Name: GLENN PARADA DEV Rep #:[id number] : 1945 80 From: Sundar Reid MD PCP: Dr. Eloina Chi MD Status:ADM IN Location: ICU [id number] 3-1 Objective Data Objective Data Vital Signs: Vital Signs Last response 3 Temperature 36.4 C L 07/31/25 07:00 Temperature Source Core 07/31/25 07:00 Pulse Rate 97 07/31/25 07:00 Pulse Strength Weak (1+) 07/30/25 21:11 Respiratory Rate 17 07/31/25 07:00 Respiratory Effort Normal, Non-Labored 07/31/25 08:00 Respiratory Depth Normal 07/31/25 08:00 Respiratory Pattern Normal 07/31/25 08:00 Blood Pressure 110/59 L 07/31/25 07:00 Blood Pressure Mean 76 07/31/25 07:00 Blood Pressure Source Monitor 07/31/25 07:00 Blood Pressure Position Semi-Fowlers 07/31/25 07:00 Blood Pressure Location Right Arm 07/31/25 07:00 Pulse Ox 97 07/31/25 07:00 Oxygen Delivery Method Room Air 07/31/25 08:00 Oxygen Flow Rate (L/min) 2 07/31/25 07:00 I&O: I&O Last 24 Hours 3 07/30/25 07/30/25 07/31/25 11:59 23:59 11:59 Intake Total 3534.25 / 3584.25 1495 / 1495 Output Total 350 / 1900 1875 / 1875 Balance 3184.25 / 1684.25 -380 / -380 I&O: Total Stay 3 07/30/25 16:15 thru 07/31/25 11:12 Intake Total 5029.25 Output Total 2225 Balance 2804.25 Current Meds Ordered / Administered: Current meds ordered / Administered 3 Generic Name Dose Route Start Last Admin Trade Name Freq PRN Reason Stop Dose Admin Carbidopa/Levodopa 1 tablet 07/31/25 00:00 07/31/25 05:39 Carbidopa/Levodopa 25/100 Tablet PO 1 tablet 0000,0600,1200,2000 KRISHAN Administration Clarify Med Order 1 each 07/30/25 21:45 07/31/25 00:03 Clarify Order NOTE Not Given CLARIFY [facility] Enoxaparin Sodium 70 mg 07/31/25 01:00 07/31/25 01:46 Enoxaparin 80 Mg/0.8 Ml Syringe SC 70 mg Q12@0600,1800 KRISHAN Administration Fludrocortisone Acetate 0.1 mg 07/30/25 20:30 07/30/25 21:27 Fludrocortisone Acetate 0.1 Mg Tablet PO 0.1 mg DAILY KRISHAN Administration Guaifenesin 10 ml 07/30/25 20:30 Guaifenesin 10 Ml Udc (200mg/10ml) PO Q4H PRN CONGESTION Vancomycin IV-PHARMACY TO DOSE 500 mls @ 250 mls/hr 07/30/25 20:30 1 each/ Sodium Chloride IV X1 PRN Rx to Dose Protocol Piperacillin Sod/Tazobactam 50 mls @ 12.5 mls/hr 07/31/25 06:00 07/31/25 05:38 Sod 3.375 gm/ Sodium Chloride IV 12.5 mls/hr Q8 KRISHAN Administration Sodium Chloride 250 mls @ 15 mls/hr 07/30/25 20:31 IV .[id number] PRN Saline Flush Sodium Chloride 250 mls @ 15 mls/hr 07/30/25 20:31 IV .[id number] PRN Additional IVPB Infusion Vancomycin HCl 750 mg/ Sodium 265 mls @ 250 mls/hr 07/31/25 06:30 07/31/25 07:28 Chloride IV Infused Q12H KRISHAN Infusion Levothyroxine Sodium 50 mcg 07/31/25 06:00 07/31/25 05:39 Levothyroxine 50 Mcg Tablet PO 50 mcg DAILY@0600 KRISHAN Administration Lidocaine/Diphenhydr/Alum/Mg/Simeth 15 ml 07/30/25 20:44 Bmx Liquid 180 Ml PO 4X/DAY PRN PRN Pain Score 1-10 Lidocaine/Prilocaine 1 gm 07/30/25 20:42 Lidocaine/Prilocaine Hcl 5 Gm Tube TOPICAL X1 PRN PORT ACCESS Protocol Nitroglycerin 0.4 mg 07/30/25 20:30 Nitroglycerin (Inpatient Use) 0.4 Mg Tab.Subl SL Q5M PRN CARDIAC/CHEST PAIN Non-Formulary Medication 2 mg 07/31/25 10:00 Prucalopride [Motegrity] PO DAILY [facility] Ondansetron HCl 4 mg 07/30/25 20:30 Ondansetron 4 Mg/2 Ml Vial IV Q8H PRN PRN NAUSEA/VOMITING Pantoprazole Sodium 40 mg 07/30/25 20:30 07/30/25 21:26 Pantoprazole Sodium 40 Mg Tablet PO 40 mg DAILY [facility] Administration Senna 1 tablet 07/30/25 20:30 Senna Tablet PO DAILY PRN PRN Constipation Sodium Chloride 1 gm 07/30/25 20:30 Sodium Chloride 1 Gm Tablet PO 4X/DAY PRN PRN electrolyte replenishment Sodium Chloride 10 - 40 ml 07/30/25 20:31 07/31/25 01:46 0.9% Saline Lock 10 Ml Syringe IV 10 ml UD PRN Administration SALINE FLUSH Tamsulosin HCl 0.4 mg 07/30/25 22:00 07/30/25 20:53 Tamsulosin Hcl 0.4 Mg Capsule PO Not Given BID [facility] Vancomycin Protocol 1 lab 08/01/25 05:00 Vancomycin Trough/Random Due MC 08/01/25 07:00 DAILY [facility] Medical Records Data Medical Nutrition Assessment Dietitian: Malnutrition Criteria Met Start: 07/31/25 11:30 Freq: Status: Active Protocol: Document 07/31/25 11:30 SLA (Rec: 07/31/25 11:30 [facility] [id number]) Nutrition Malnutrition Evidence of Yes Malnutrition Exists Malnutrition (severe Chronic ): Evidenced By Suboptimal Energy Intake (Severe),Weight Loss (Severe) Intake Problem Inadequate Oral Intake Etiology related to oropharyngeal cancer Signs/Symptoms as evidenced by need for PEG/ EN for nutrition Status Active Problem Clinical Problem Acute Disease or Injury Related Malnutrition Etiology related to inadequate oral energy intake d/t oropharyngeal cancer Signs/Symptoms as evidenced by po intake meeting < 75% of est nutritional needs and 3% wt loss in past 5 days. Has started using PEG this week, but not up to goal yet. Status Active Problem Recommendation Dietitian Rec Jevity 1.5 bolus feeds 5x/day during waking hours - Recommendations/ goal of 240 ml per feed w/ 90 ml water flush before Changes and after feedings to provide ~ 1800 ynes / 76 gm pro/ 1812 ml free water per day. Would start day 1 at 50% giving 120 ml formula bolus feeds, day 2 increase to 75 % giving 180 ml formula bolus feeds and increase to goal rate 240 ml formula day 3 as pt tolerated. Continue to follow and monitor for changes in pt nutritional status and make additional rec as indicated . Lab / Micro Data Attestation: I reviewed the patient's lab results. 07/31/25 03:45 07/31/25 03:45 Labs: Laboratory Results - last 24 hr 07/30/25 16:04: WBC 1.0 L*, RBC 3.59 L, Hgb 10.7 L, Hct 31.5 L, MCV 87.7, MCH 29.8, MCHC 34.0, RDW Std Deviation 43.3, RDW Coeff of Macho 13.6, Plt Count TNP, MPV TNP, Immature Gran % (Auto) 0.000, Neut % (Auto) 45.1 L, Lymph % (Auto) 45.1 H, [place] % (Auto) 7.8, Eos % (Auto) 0.0, Baso % (Auto) 2.0 H, Absolute Neuts (auto) 0.5 L, Absolute Lymphs (auto) 0.46 L, Nucleated RBC % 0, Diff Path Review February, PT 13.8, INR 1.0, APTT 30.3, Sodium 133, Potassium 3.4, Chloride 97 L, Carbon Dioxide 25.3, Anion Gap 10, BUN 22 H, Creatinine 0.81, Estim Creat Clear Calc 69.20, Est GFR (MDRD) Non-Af 88, BUN/Creatinine Ratio 26.7 H, Glucose 110 H, Calcium 8.1, Total Bilirubin 0.66, AST 26, ALT 8, Alkaline Phosphatase 58, Total Protein 5.9, Albumin 3.4, Globulin 2.6, Albumin/Globulin Ratio 1.3 07/30/25 16:23: Lactic Acid < 1.0 07/30/25 18:51: Urine Color Straw, Urine Clarity Clear, Urine pH 7.0, Ur Specific [place] 1.010, Urine Protein Negative, Urine Glucose (UA) Normal, Urine Ketones 5 H, Urine Occult Blood 10 H, Urine Nitrite Negative, Urine Bilirubin Negative, Urine Urobilinogen Normal, Ur Leukocyte Esterase Negative, Urine RBC 0-5 SEEN, Urine WBC 0-5 SEEN, Ur Squamous Epith Cells 0-5 SEEN, Urine Bacteria 0 SEEN, Urine Mucus 0 SEEN 07/30/25 20:44: D-Dimer Quant (PE/DVT) 7.44 H* 07/30/25 20:54: MRSA (PCR) Negative 07/31/25 03:45: WBC 1.4 L*, RBC 3.04 L, Hgb 9.0 L, Hct 26.5 L, MCV 87.2, MCH 29.6, MCHC 34.0, RDW Std Deviation 42.4, RDW Coeff of Macho 13.6, Plt Count 129 L, MPV 9.9, Immature Gran % (Auto) 0.700, Neut % (Auto) 68.4, Lymph % (Auto) 19.9, [place] % (Auto) 8.1, Eos % (Auto) 0.7, Baso % (Auto) 2.2 H, Absolute Neuts (auto) 0.9 L, Absolute Lymphs (auto) 0.27 L, Nucleated RBC % 0, Differential Comment SCANNED, [place] Cells 1+, Sodium 138, Potassium 3.0 L, Chloride 105, Carbon Dioxide 23.9, Anion Gap 9, BUN 12, Creatinine 0.70, Estim Creat Clear Calc 70.06, Est GFR (MDRD) Non-Af 93, BUN/Creatinine Ratio 17.8, Glucose 110 H, Calcium 6.9 L Micro: Microbiology 07/30/25 18:51 Urine, Clean Catch Urine Culture - Preliminary Culture exhibits no growth. 07/30/25 21:57 Mucosa - Nasopharyngeal Respiratory Panel (PCR) - Final Imaging Radiology Impression Chest X-Ray 07/30/25 18:25 IMPRESSION: No Acute Findings. Reading Location: [facility] Chest CTA 07/30/25 22:16 IMPRESSION: Right lower lobe segmental branches pulmonary emboli. No evidence of large central or massive pulmonary embolus. No evidence of cardiac strain. Minimal bilateral pleural effusions. Passive atelectatic airspace disease in the lower lobes. Mild interstitial pulmonary congestion. Right Port-A-Cath is in good position. Mild cardiomegaly. Small sliding hiatal hernia. Left renal simple cyst measuring 3.5 cm. Chronic deformity of the posterior arch of the left 11th rib. I discussed the findings with NIGEL Natarajan in the ICU at 12:33 a.m. EST. Reading Location: [place] [address] Assessment and Plan . Assessment and plan: Febrile Neutropenia secondary to chemotherapy * ANC today 900 * Continue broad-spectrum coverage: Vancomycin + Piperacillin-Tazobactam per ID/oncology guidance. * Continue Granix daily until ANC > 1.0 ?10?/L. * FU cultures (all NGTD) * Maintain neutropenic precautions. * Daily CBC and BMP. * Avoid rectal temps, IM injections. Acute Pulmonary Embolism * Continue therapeutic enoxaparin * Monitor for bleeding * Consider IVC filter if platelets drop <30k or if bleeding risk high. Chemotherapy-Induced Cytopenias and mucositis * Monitor CBC daily * Coordinate with oncology for chemotherapy hold. * oral care and CONTRACT ENGINEER to evaluate for swallowing Metastatic Oropharyngeal Cancer * Continue chemoradiation per oncologic schedule if stabilized. * Oncology consult for timing of next cycle and prognosis. Hypothyroidism / Possible Adrenal Insufficiency * Continue levothyroxine. * Continue fludrocortisone; consider hydrocortisone stress dosing if hypotensive or septic physiology develops. GERD * Continue PPI; avoid aspiration risk. Fluid and Electrolyte Management * IVF as needed; now euvolemic after 3 L boluses. * Strict I/O; daily weights. * Continue ICU for close monitoring of neutropenic fever, PE anticoagulation, and cytopenia management. Critical Care Time: 50 minutes The entirety of this encounter was done via Telemedicine Physical Exam Const alert General Appearance: combative and ill appearing Orientation / Consciousness: disoriented HEENT head/scalp atraumatic Face and Sinus: normal facial exam Nose: external nose normal Mouth: oral and palatal mucosa abnormal Eyes PERRL Neck full ROM Chest inspection of chest normal Resp normal respiratory effort Subjective Subjective Events reviewed, details of Dr. Fall's consultation discussed. He is oriented only to self, struggling with swallowing- coughed for 30 minutes after attempting to swallow Tylenol. 07/31/25 1143 <Electronically signed by Sundar Reid MD> Cosigner Signature (if applicable): CC: ~ Signed [facility] Work Phone: Progress note Author Dev Reardon [facility] Note Date/Time August 01, 2025 8 :47am [facility] Medical Records Department [address] [place] [address] Progress Note - Hospitalist 08/01/25 0823 MR#: [id number] Acct: [id number] Name: GLENN PARADA DEV Rep #:[id number] : 1945 80 From: Dev Segovia PCP: Dr. Eloina Chi MD Status:ADM IN Location: ICU [place] [address] 3-1 Reason for Visit Chief Complaint: fever Objective Data Objective Data Vital Signs: Vital Signs Temp Pulse Resp BP Pulse Ox O2 Del Method O2 Flow Rate 98.0 F 100 15 127/70 H 94 Room Air 2 08/01/25 04:00 08/01/25 07:00 08/01/25 07:00 08/01/25 07:00 08/01/25 07:00 08/01/25 07:03 07/31/25 07:00 Oxygen Flow Rate (L/min) 2 Oxygen Delivery Method Room Air Weight: 162 lb 0.636 oz Body Mass Index (BMI) 24.6 Intake & Output: Intake and Output for Last 24 Hours 07/30/25 07/31/25 08/01/25 23:59 23:59 23:59 Intake Total 3534.25 / 3584.25 3270 / 3270 350 / 350 Output Total 350 / 1900 3200 / 3200 450 / 450 Balance 3184.25 / 1684.25 70 / 70 -100 / -100 Medical Nutrition Assessment Dietitian: Malnutrition Criteria Met Start: 07/31/25 11:30 Freq: Status: Active Protocol: Document 07/31/25 11:30 SLA (Rec: 07/31/25 11:30 [facility] [id number]) Nutrition Malnutrition Evidence of Yes Malnutrition Exists Malnutrition (severe Chronic ): Evidenced By Suboptimal Energy Intake (Severe),Weight Loss (Severe) Intake Problem Inadequate Oral Intake Etiology related to oropharyngeal cancer Signs/Symptoms as evidenced by need for PEG/ EN for nutrition Status Active Problem Clinical Problem Acute Disease or Injury Related Malnutrition Etiology related to inadequate oral energy intake d/t oropharyngeal cancer Signs/Symptoms as evidenced by po intake meeting < 75% of est nutritional needs and 3% wt loss in past 5 days. Has started using PEG this week, but not up to goal yet. Status Active Problem Recommendation Dietitian Rec Jevity 1.5 bolus feeds 5x/day during waking hours - Recommendations/ goal of 240 ml per feed w/ 90 ml water flush before Changes and after feedings to provide ~ 1800 ynes / 76 gm pro/ 1812 ml free water per day. Would start day 1 at 50% giving 120 ml formula bolus feeds, day 2 increase to 75 % giving 180 ml formula bolus feeds and increase to goal rate 240 ml formula day 3 as pt tolerated. Continue to follow and monitor for changes in pt nutritional status and make additional rec as indicated . Lab / Micro Data 08/01/25 04:10 08/01/25 04:10 Labs: Laboratory Results - last 24 hr 08/01/25 04:10: WBC 1.8 L, RBC 2.97 L, Hgb 8.8 L, Hct 25.6 L, MCV 86.2, MCH 29.6, MCHC 34.4, RDW Std Deviation 41.8, RDW Coeff of Macho 13.5, Plt Count 147 L,MPV 10.2, Immature Gran % (Auto) Not Reportable, Neut % (Auto) Not Reportable, Lymph % (Auto) Not Reportable, [place] % (Auto) Not Reportable, Eos % (Auto) Not Reportable, Baso % (Auto) Not Reportable, Absolute Neuts (auto) 1.1 L, Absolute Lymphs (auto) 0.36 L, Total Counted 100, Neutrophils % (Manual) 60, Band Neutrophils % 8 H, Lymphocytes % (Manual) 20, Monocytes % (Manual) 4, Eosinophils % (Manual) 3, Basophils % (Manual) 1, Metamyelocytes % 4 H, Nucleated RBC % 0, Diff Path Review May foll, Platelet Estimate SLT DEC, [place] Cells 1+, Sodium 135, Potassium 2.6 L*, Chloride 101, Carbon Dioxide 23.7, AnionGap 10, BUN 12, Creatinine 0.72, Estim Creat Clear Calc 70.06, Est GFR (MDRD) Non-Af 92, BUN/Creatinine Ratio 16.7, Glucose 106 H, Calcium 7.7, Total Bilirubin 0.55, AST 17, ALT < 5, Alkaline Phosphatase 47, Total Creatine Kinase 51, Total Protein 4.8 L, Albumin 2.6 L, Globulin 2.1 L, Albumin/Globulin Ratio 1.2, Vitamin B12 587 08/01/25 04:35: Serum Folate 7.55 08/01/25 06:10: Vancomycin Trough 9.0 Micro: Microbiology 07/30/25 18:51 Urine, Clean Catch Urine Culture - Preliminary Culture exhibits no growth. 07/30/25 21:57 Mucosa - Nasopharyngeal Respiratory Panel (PCR) - Final Physical Exam Narrative Seen and examined Patient has swelling/thick mucus secretions over oropharyngeal and throat region. On tube feed through PEG tube Physical exam General: Alert, Oriented x3, Cooperative HEENT: Atraumatic, PERRLA, EOMI, Normocephalic. Oral: Yellowish patch over left lateral margin of anterior tongue. Thick viscous mucoid accretions on the lateral margin of buccal cavity Oral gingivitis/soreness Neck: Supple, No JVD, Negative Carotid Bruits Chest wall/Lungs: Air entry diminished in bilateral lung bases. Mild crepitations on bases Cardiovascular: Regular rate and rhythm, Normal S1,S2, No M/G/R Abdomen: PEG tube bowel Sounds Present, Soft, Non Tender, Non-Distended : No dysuria. No renal angle tenderness. No suprapubic tenderness. Extremities: Mild leg edema, Capillary Refill Less than 3 Seconds Skin: No rashes, No breakdown Musculoskeletal: Decreased muscle strength of knees and hip joints. No Tenderness to Palpation of Joints or Extremities Neurological: DTR 2+/4. No acute focal neurological deficit. Psych/Mental Status: Flat affect. 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 #Acute febrile neutropenia in the setting of metastatic oropharyngeal cancer * Patient is admitted to ICU due to concerns for sepsis and rapid deterioration in light of his immunocompromised state. Admitted with a complaint of fever. He had radiation on day of admission and chemotherapy 4 days ago. * Denies any urinary symptoms or any respiratory symptoms or abdominal symptoms. Patient is tachycardic with heart rate of 131. Lactic acid is less than 1. * Patient was hydrated hydrate aggressively with IV fluids. Continue IV vancomycin and Zosyn. * Neutropenic precautions. * consult critical care. * 07/31: Low-grade fever today. Tmax 102.0 on 07/30 about 8 PM. Leukopenia, thrombocytopenia and anemia/pancytopenia. ANC 0.9 K suggestive of moderate neutropenia, ALC 0.27/lymphopenia, basophils 2.2%. Does not meet criteria for sepsis. Urine culture exhibits no growth. Respiratory panel negative. 08/01: No fever, Tmax 100.1 F. Still leukopenia, ANC 1.1 K, improved from 0.5 K. Started on Granix. Discussed with pharmacy and Peridex/chlorhexidine oral rinse ordered. Mouth hygiene. Continue antibiotic. ID consult tomorrow AM. #PE * D dimer ordered due to tachcyardia. * D dimer was markedly elevated at ~ 7, so stat CTA chest done which showed pulmonary embolism of the right lower lobe subsegmenal branches. * patient started on therapeutic lovenox. 05/31: Continue Lovenox. Shows mild decrease in hemoglobin and platelet count. Platelet count 0.183 on 07/26. 06/01: Platelet count 100 47K, improved from yesterday. H&H 8.8/25.6%. Bands 8%, metamyelocytes 4%. #parkinson's disease with Dementia: On levodopa carbidopa #GERD: PPI #Hypothyroidism: On Synthroid #BPH: On Flomax DVT prophylaxis: not indicated as patient started on therapeutic lovenox for newly diagnosed PE Electrolyte abnormality: Hypocalcemia: Calcium 6.9, albumin 3.4. Corrected calcium is 7.4 therefore IV calcium gluconate ordered. 08/01: Severe hypokalemia, K2.6. 40 mEq oral and 40 mEq IV KCl replaced. Repeat serum magnesium and phosphorus and BMP after 1 hour of completion of electrolyte replacement. CODE STATUS:full code * Patient and counseled extensively about different types of CODE STATUS including full code, DNR CCA and DNR CCA. * Patients elects for him to be full code. Microbiology Past 72 Hours 07/30/25 18:51 Urine, Clean Catch Urine Culture - Preliminary Culture exhibits no growth. 07/30/25 21:57 Mucosa - Nasopharyngeal Respiratory Panel (PCR) - Final Laboratory Results 08/01/25 04:10: WBC 1.8 L, RBC 2.97 L, Hgb 8.8 L, Hct 25.6 L, MCV 86.2, MCH 29.6, MCHC 34.4, RDW Std Deviation 41.8, RDW Coeff of Macho 13.5, Plt Count 147 L,MPV 10.2, Immature Gran % (Auto) Not Reportable, Neut % (Auto) Not Reportable, Lymph % (Auto) Not Reportable, [place] % (Auto) Not Reportable, Eos % (Auto) Not Reportable, Baso % (Auto) Not Reportable, Absolute Neuts (auto) 1.1 L, Absolute Lymphs (auto) 0.36 L, Total Counted 100, Neutrophils % (Manual) 60, Band Neutrophils % 8 H, Lymphocytes % (Manual) 20, Monocytes % (Manual) 4, Eosinophils % (Manual) 3, Basophils % (Manual) 1, Metamyelocytes % 4 H, Nucleated RBC % 0, Diff Path Review February foll, Platelet Estimate SLT DEC, [place] Cells 1+, Sodium 135, Potassium 2.6 L*, Chloride 101, Carbon Dioxide 23.7, AnionGap 10, BUN 12, Creatinine 0.72, Estim Creat Clear Calc 70.06, Est GFR (MDRD) Non-Af 92, BUN/Creatinine Ratio 16.7, Glucose 106 H, Calcium 7.7, Total Bilirubin 0.55, AST 17, ALT < 5, Alkaline Phosphatase 47, Total Creatine Kinase 51, Total Protein 4.8 L, Albumin 2.6 L, Globulin 2.1 L, Albumin/Globulin Ratio 1.2, Vitamin B12 587 08/01/25 04:35: Serum Folate 7.55 08/01/25 06:10: Vancomycin Trough 9.0 Clinical Impression(s) from Imaging Studies Chest X-Ray 07/30/25 18:25 IMPRESSION: No Acute Findings. Reading Location: [facility] Chest CTA 07/30/25 22:16 IMPRESSION: Right lower lobe segmental branches pulmonary emboli. No evidence of large central or massive pulmonary embolus. No evidence of cardiac strain. Minimal bilateral pleural effusions. Passive atelectatic airspace disease in the lower lobes. Mild interstitial pulmonary congestion. Right Port-A-Cath is in good position. Mild cardiomegaly. Small sliding hiatal hernia. Left renal simple cyst measuring 3.5 cm. Chronic deformity of the posterior arch of the left 11th rib. I discussed the findings with NIGEL Natarajan in the ICU at 12:33 a.m. EST. Reading [facility] Charges/Coding Visit Charges Inpatient E&M: 06503 Subs Hosp L3 08/01/25 0847 <Electronically signed by Dev Reardon MD> Cosigner Signature (if applicable): CC: ~ Signed [facility] Work Phone: Progress note Author Sundar Reid [facility] Note Date/Time August 01, 2025 2 :33pm [facility] Medical Records Department [address] [place] [address] Progress Note - Mental Hygienist 08/01/25 1431 MR#: [id number] Acct: [id number] Name: GLENN PARADA DEV Rep #:[id number] : 1945 80 From: Sundar Reid MD PCP: Dr. Eloina Chi MD Status:ADM IN Location: ICU [id number] 3-1 Objective Data Objective Data Vital Signs: Vital Signs Last response 3 Temperature 37.4 C H 08/01/25 13:48 Temperature Source Core 08/01/25 13:48 Pulse Rate 96 08/01/25 13:48 Pulse Strength Weak (1+) 07/30/25 21:11 Respiratory Rate 17 08/01/25 13:48 Respiratory Effort Normal 08/01/25 13:47 Respiratory Depth Shallow 08/01/25 13:47 Respiratory Pattern Normal 08/01/25 13:47 Blood Pressure 129/74 H 08/01/25 13:48 Blood Pressure Mean 92 08/01/25 13:48 Blood Pressure Source Monitor 08/01/25 13:48 Blood Pressure Position Sitting 08/01/25 13:48 Blood Pressure Location Left Arm 08/01/25 13:48 Pulse Ox 96 08/01/25 13:48 Oxygen Delivery Method Room Air 08/01/25 13:48 Oxygen Flow Rate (L/min) 2 07/31/25 07:00 I&O: I&O Last 24 Hours 3 07/31/25 08/01/25 08/01/25 23:59 11:59 23:59 Intake Total 1775 / 3270 500 / 650 150 / 650 Output Total 1325 / 3200 450 / 825 375 / 825 Balance 450 / 70 50 / -175 -225 / -175 I&O: Total Stay 3 07/30/25 16:15 thru 08/01/25 13:41 Intake Total 7454.25 Output Total 4375 Balance 3079.25 Current Meds Ordered / Administered: Current meds ordered / Administered 3 Generic Name Dose Route Start Last Admin Trade Name Freq PRN Reason Stop Dose Admin Carbidopa/Levodopa 1 tablet 08/01/25 00:00 08/01/25 13:18 Carbidopa/Levodopa 25/100 Tablet GT 1 tablet 0000,0600,1200,2000 KRISHAN Administration Chlorhexidine Gluconate 15 ml 08/01/25 08:30 08/01/25 13:17 Chlorhexidine 480 Ml PO 15 ml TID KRISHAN Administration Clarify Med Order 1 each 07/30/25 21:45 07/31/25 16:24 Clarify Order NOTE 1 each CLARIFY KRISHAN Administration Enoxaparin Sodium 70 mg 07/31/25 01:00 08/01/25 06:00 Enoxaparin 80 Mg/0.8 Ml Syringe SC 70 mg Q12@0600,1800 KRISHAN Administration Fludrocortisone Acetate 0.1 mg 08/01/25 10:00 08/01/25 09:53 Fludrocortisone Acetate 0.1 Mg Tablet GT 0.1 mg On Hold: 08/01/25 10:58 DAILY KRISHAN Administration Guaifenesin 10 ml 07/31/25 20:29 Guaifenesin 10 Ml Udc (200mg/10ml) GT Q4H PRN CONGESTION Vancomycin IV-PHARMACY TO DOSE 500 mls @ 250 mls/hr 07/30/25 20:30 1 each/ Sodium Chloride IV X1 PRN Rx to Dose Protocol Piperacillin Sod/Tazobactam 50 mls @ 12.5 mls/hr 07/31/25 06:00 08/01/25 13:19 Sod 3.375 gm/ Sodium Chloride IV 12.5 mls/hr Q8 KRISHAN Administration Sodium Chloride 250 mls @ 15 mls/hr 07/30/25 20:31 07/31/25 20:04 IV 15 mls/hr .[id number] PRN Administration Saline Flush Sodium Chloride 250 mls @ 15 mls/hr 07/30/25 20:31 07/31/25 20:05 IV 15 mls/hr .[id number] PRN Administration Additional IVPB Infusion Vancomycin HCl 1,000 mg/ 270 mls @ 250 mls/hr 08/01/25 09:00 08/01/25 09:49 Sodium Chloride IV 250 mls/hr Q12H KRISHAN Administration Magnesium Sulfate 2 gm/ 104 mls @ 52 mls/hr 08/01/25 14:19 Dextrose IV 08/01/25 16:18 X1 ONE Levothyroxine Sodium 50 mcg 08/01/25 06:00 08/01/25 06:02 Levothyroxine 50 Mcg Tablet GT 50 mcg DAILY@0600 KRISHAN Administration Lidocaine/Diphenhydr/Alum/Mg/Simeth 15 ml 07/31/25 18:30 08/01/25 13:18 Bmx Liquid 180 Ml PO 15 ml 4X/DAY KRISHAN Administration Lidocaine/Prilocaine 1 gm 07/30/25 20:42 Lidocaine/Prilocaine Hcl 5 Gm Tube TOPICAL X1 PRN PORT ACCESS Protocol Nitroglycerin 0.4 mg 07/30/25 20:30 Nitroglycerin (Inpatient Use) 0.4 Mg Tab.Subl SL Q5M PRN CARDIAC/CHEST PAIN Non-Formulary Medication 2 mg 07/31/25 10:00 Prucalopride [Motegrity] PO DAILY KRISHAN Ondansetron HCl 4 mg 07/30/25 20:30 Ondansetron 4 Mg/2 Ml Vial IV Q8H PRN PRN NAUSEA/VOMITING Pantoprazole Sodium 40 mg 07/30/25 20:30 08/01/25 09:53 Pantoprazole Sodium 40 Mg Tablet PO Not Given DAILY KRISHAN Potassium Phos/Sodium Phos 1 packet 08/01/25 14:20 Na Biphos/Potassium Phosphate Packet PO 08/03/25 14:21 TID KRISHAN Senna/Docusate Sodium 2 tablet 07/31/25 22:00 08/01/25 09:53 Senna/Docusate Sodium 1 Tablet GT Not Given BID KRISHAN Sodium Chloride 1 gm 07/30/25 20:30 Sodium Chloride 1 Gm Tablet PO 4X/DAY PRN PRN electrolyte replenishment Sodium Chloride 10 - 40 ml 07/30/25 20:31 08/01/25 04:38 0.9% Saline Lock 10 Ml Syringe IV 40 ml UD PRN Administration SALINE FLUSH Tamsulosin HCl 0.4 mg 07/30/25 22:00 08/01/25 09:52 Tamsulosin Hcl 0.4 Mg Capsule PO Not Given BID [facility] Tbo-Filgrastim 300 mcg 08/02/25 10:00 Tbo-Filgrastim 300 Mcg/0.5 Ml Ml SC 08/05/25 10:01 DAILY [facility] Vancomycin Protocol 1 lab 08/02/25 19:30 Vancomycin Trough/Random Due MC 08/02/25 21:30 DAILY [facility] Medical Records Data Medical Nutrition Assessment Dietitian: Malnutrition Criteria Met Start: 07/31/25 11:30 Freq: Status: Active Protocol: Document 07/31/25 11:30 SLA (Rec: 07/31/25 11:30 SLA [id number]) Nutrition Malnutrition Evidence of Yes Malnutrition Exists Malnutrition (severe Chronic ): Evidenced By Suboptimal Energy Intake (Severe),Weight Loss (Severe) Intake Problem Inadequate Oral Intake Etiology related to oropharyngeal cancer Signs/Symptoms as evidenced by need for PEG/ EN for nutrition Status Active Problem Clinical Problem Acute Disease or Injury Related Malnutrition Etiology related to inadequate oral energy intake d/t oropharyngeal cancer Signs/Symptoms as evidenced by po intake meeting < 75% of est nutritional needs and 3% wt loss in past 5 days. Has started using PEG this week, but not up to goal yet. Status Active Problem Recommendation Dietitian Rec Jevity 1.5 bolus feeds 5x/day during waking hours - Recommendations/ goal of 240 ml per feed w/ 90 ml water flush before Changes and after feedings to provide ~ 1800 ynes / 76 gm pro/ 1812 ml free water per day. Would start day 1 at 50% giving 120 ml formula bolus feeds, day 2 increase to 75 % giving 180 ml formula bolus feeds and increase to goal rate 240 ml formula day 3 as pt tolerated. Continue to follow and monitor for changes in pt nutritional status and make additional rec as indicated . Lab / Micro Data Attestation: I reviewed the patient's lab results. 08/01/25 04:10 08/01/25 12:00 Labs: Laboratory Results - last 24 hr 08/01/25 04:10: WBC 1.8 L, RBC 2.97 L, Hgb 8.8 L, Hct 25.6 L, MCV 86.2, MCH 29.6, MCHC 34.4, RDW Std Deviation 41.8, RDW Coeff of Macho 13.5, Plt Count 147 L, MPV 10.2, Immature Gran % (Auto) Not Reportable, Neut % (Auto) Not Reportable, Lymph % (Auto) Not Reportable, [place] % (Auto) Not Reportable, Eos % (Auto) Not Reportable, Baso % (Auto) Not Reportable, Absolute Neuts (auto) 1.1 L, Absolute Lymphs (auto) 0.36 L, Total Counted 100, Neutrophils % (Manual) 60, Band Neutrophils % 8 H, Lymphocytes % (Manual) 20, Monocytes % (Manual) 4, Eosinophils % (Manual) 3, Basophils % (Manual) 1, Metamyelocytes % 4 H, Nucleated RBC % 0, Diff Path Review May foll, Platelet Estimate SLT DEC, [place] Cells 1+, Sodium 135, Potassium 2.6 L*, Chloride 101, Carbon Dioxide 23.7, Anion Gap 10, BUN 12, Creatinine 0.72, Estim Creat Clear Calc 70.06, Est GFR (MDRD) Non-Af 92, BUN/Creatinine Ratio 16.7, Glucose 106 H, Calcium 7.7, Total Bilirubin 0.55, AST 17, ALT < 5, Alkaline Phosphatase 47, Total Creatine Kinase 51, Total Protein 4.8 L, Albumin 2.6 L, Globulin 2.1 L, Albumin/Globulin Ratio 1.2, Vitamin B12 587 08/01/25 04:35: Serum Folate 7.55 08/01/25 06:10: Vancomycin Trough 9.0 08/01/25 12:00: Sodium 135, Potassium 3.2 L, Chloride 102, Carbon Dioxide 22.7, Anion Gap 10, BUN 11, Creatinine 0.75, Estim Creat Clear Calc 70.06, Est GFR (MDRD) Non-Af 91, BUN/Creatinine Ratio 14.7, Glucose 100 H, Calcium 7.8, Phosphorus 1.7 L, Magnesium 1.7 Assessment and Plan . Assessment and plan: Febrile Neutropenia secondary to chemotherapy * ANC improved * Continue broad-spectrum coverage: Vancomycin + Piperacillin-Tazobactam per ID/oncology guidance. * Continue Granix daily until ANC > 1.0 ?10?/L. * FU cultures (all NGTD) * Daily CBC and BMP. * Avoid rectal temps, IM injections. Acute Pulmonary Embolism * Continue therapeutic enoxaparin * Monitor for bleeding * Consider IVC filter if platelets drop <30k or if bleeding risk high. Chemotherapy-Induced Cytopenias and mucositis * Monitor CBC daily * Coordinate with oncology for chemotherapy hold. * oral care * remains NPO Metastatic Oropharyngeal Cancer * Continue chemoradiation per oncologic schedule if stabilized. * Oncology consult for timing of next cycle and prognosis. Hypothyroidism / Possible Adrenal Insufficiency * Continue levothyroxine. * Continue fludrocortisone; consider hydrocortisone stress dosing if hypotensive or septic physiology develops. GERD * Continue PPI; avoid aspiration risk. Critical Care Time: The entirety of this encounter was done via Telemedicine Subjective Subjective No further issues with respiratory insufficiency, plans for transfer are appropriate 08/01/25 1433 <Electronically signed by Sundar Reid MD> Cosigner Signature (if applicable): CC: ~ Signed [facility] Work Phone: Progress note Author Dev Reardon [facility] Note Date/Time August 02, 2025 8 :32am [facility] Medical Records Department [address] [place] [id number] Progress Note - Hospitalist 08/02/25 0826 MR#: [id number] Acct: [id number] Name: GLENN PARADA DEV Rep #:[id number] : 1945 80 From: Dev Segovia PCP: Dr. Eloina Chi MD Status:ADM IN Location: [facility] Reason for Visit Chief Complaint: fever Objective Data Objective Data Vital Signs: Vital Signs Temp Pulse Resp BP Pulse Ox O2 Del Method O2 Flow Rate 98.4 F 88 17 131/74 H 92 Room Air 2 08/02/25 06:00 08/02/25 06:00 08/02/25 06:00 08/02/25 06:00 08/02/25 06:00 08/02/25 06:00 07/31/25 07:00 Oxygen Flow Rate (L/min) 2 Oxygen Delivery Method Room Air Weight: 164 lb 14.492 oz Body Mass Index (BMI) 25.0 Intake & Output: Intake and Output for Last 24 Hours 07/31/25 08/01/25 08/02/25 23:59 23:59 23:59 Intake Total 3270 / 3270 2614 / 2614 230 / 230 Output Total 3200 / 3200 1525 / 1525 450 / 450 Balance 70 / 70 1089 / 1089 -220 / -220 Medical Nutrition Assessment Dietitian: Malnutrition Criteria Met Start: 07/31/25 11:30 Freq: Status: Active Protocol: Document 07/31/25 11:30 [facility] (Rec: 07/31/25 11:30 [facility] [id number]) Nutrition Malnutrition Evidence of Yes Malnutrition Exists Malnutrition (severe Chronic ): Evidenced By Suboptimal Energy Intake (Severe),Weight Loss (Severe) Intake Problem Inadequate Oral Intake Etiology related to oropharyngeal cancer Signs/Symptoms as evidenced by need for PEG/ EN for nutrition Status Active Problem Clinical Problem Acute Disease or Injury Related Malnutrition Etiology related to inadequate oral energy intake d/t oropharyngeal cancer Signs/Symptoms as evidenced by po intake meeting < 75% of est nutritional needs and 3% wt loss in past 5 days. Has started using PEG this week, but not up to goal yet. Status Active Problem Recommendation Dietitian Rec Jevity 1.5 bolus feeds 5x/day during waking hours - Recommendations/ goal of 240 ml per feed w/ 90 ml water flush before Changes and after feedings to provide ~ 1800 ynes / 76 gm pro/ 1812 ml free water per day. Would start day 1 at 50% giving 120 ml formula bolus feeds, day 2 increase to 75 % giving 180 ml formula bolus feeds and increase to goal rate 240 ml formula day 3 as pt tolerated. Continue to follow and monitor for changes in pt nutritional status and make additional rec as indicated . Lab / Micro Data 08/02/25 03:20 08/02/25 03:20 Labs: Laboratory Results - last 24 hr 08/01/25 12:00: Sodium 135, Potassium 3.2 L, Chloride 102, Carbon Dioxide 22.7, Anion Gap 10, BUN 11, Creatinine 0.75, Estim Creat Clear Calc 70.06, Est GFR (MDRD) Non-Af 91, BUN/Creatinine Ratio 14.7, Glucose 100 H, Calcium 7.8, Phosphorus 1.7 L, Magnesium 1.7 08/02/25 03:20: WBC 2.3 L, RBC 2.98 L, Hgb 8.8 L, Hct 25.4 L, MCV 85.2, MCH 29.5, MCHC 34.6, RDW Std Deviation 41.4, RDW Coeff of Macho 13.4, Plt Count 129 L,MPV 10.1, Immature Gran % (Auto) 1.300 H, Neut % (Auto) 56.1, Lymph % (Auto) 18.7 L, [place] % (Auto) 19.6 H, Eos % (Auto) 1.7, Baso % (Auto) 2.6 H, Absolute Neuts (auto) 1.3 L, Absolute Lymphs (auto) 0.43 L, Nucleated RBC % 0, Differential Comment SCANNED, Sodium 136, Potassium 2.9 L, Chloride 103, Carbon Dioxide 24.6, Anion Gap 8, BUN 13, Creatinine 0.80, Estim Creat Clear Calc 70.06, Est GFR (MDRD) Non-Af 89, BUN/Creatinine Ratio 15.9, Glucose 111 H, Calcium 7.3 L, Total Bilirubin 0.48, AST 16, ALT 6, Alkaline Phosphatase 47, Total Protein 4.7 L, Albumin 2.6 L, Globulin 2.1 L, Albumin/Globulin Ratio 1.2 Micro: Microbiology 07/30/25 18:25 Blood Culture (Wb) - Venous Blood Culture - Preliminary No growth in 48 hours. 07/30/25 16:23 Blood Culture (Wb) - Line Draw Blood Culture - Preliminary No growth in 48 hours. 07/30/25 18:51 Urine, Clean Catch Urine Culture - Preliminary Culture exhibits no growth. 07/30/25 21:57 Mucosa - Nasopharyngeal Respiratory Panel (PCR) - Final Physical Exam Narrative Seen and examined Patient has swelling/thick mucus secretions over oropharyngeal and throat region. On tube feed through PEG tube. Had BM yesterday. Physical exam General: Alert, Oriented x3, Cooperative HEENT: Atraumatic, PERRLA, EOMI, Normocephalic. Oral: Yellowish patch over left and right lateral margin of anterior tongue. Mucositis and thick viscous mucoid accretions on the lateral margin of buccal cavity Oral gingivitis/soreness Neck: Supple, No JVD, Negative Carotid Bruits Chest wall/Lungs: Air entry diminished in bilateral lung bases. Mild crepitations on bases Cardiovascular: Regular rate and rhythm, Normal S1,S2, No M/G/R Abdomen: PEG tube bowel Sounds Present, Soft, Non Tender, Non-Distended : No dysuria. No renal angle tenderness. No suprapubic tenderness. Extremities: Mild leg edema, Capillary Refill Less than 3 Seconds Skin: No rashes, No breakdown Musculoskeletal: Decreased muscle strength of knees and hip joints. No Tenderness to Palpation of Joints or Extremities Neurological: DTR 2+/4. No acute focal neurological deficit. Psych/Mental Status: Flat affect. 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 #Acute febrile neutropenia in the setting of metastatic oropharyngeal cancer * Patient is admitted to ICU due to concerns for sepsis and rapid deterioration in light of his immunocompromised state. Admitted with a complaint of fever. He had radiation on day of admission and chemotherapy 4 days ago. * Denies any urinary symptoms or any respiratory symptoms or abdominal symptoms. Patient is tachycardic with heart rate of 131. Lactic acid is less than 1. * Patient was hydrated hydrate aggressively with IV fluids. Continue IV vancomycin and Zosyn. * Neutropenic precautions. * consult critical care. * 07/31: Low-grade fever today. Tmax 102.0 on 07/30 about 8 PM. Leukopenia, thrombocytopenia and anemia/pancytopenia. ANC 0.9 K suggestive of moderate neutropenia, ALC 0.27/lymphopenia, basophils 2.2%. Does not meet criteria for sepsis. Urine culture exhibits no growth. Respiratory panel negative. 08/01: No fever, Tmax 100.1 F. Still leukopenia, ANC 1.1 K, improved from 0.5 K. Started on Granix. Discussed with pharmacy and Peridex/chlorhexidine oral rinse ordered. Mouth hygiene. Continue antibiotic. ID consult tomorrow AM. 08/02: Tmax 100.4 Fahrenheit on 08/01 evening. ANC 1.2 K, continue Granix today. Continue Peridex and oral hygiene for mouth soreness and mucositis. Oncologist consult requested as per patient's request. He was supposed to startchemotherapy today but it is contraindicated due to neutropenic fever and pancytopenia for now. Cultures are negative so far. ID consulted to narrow down the antibiotic #PE * D dimer ordered due to tachcyardia. * D dimer was markedly elevated at ~ 7, so stat CTA chest done which showed pulmonary embolism of the right lower lobe subsegmenal branches. * patient started on therapeutic lovenox. 05/31: Continue Lovenox. Shows mild decrease in hemoglobin and platelet count. Platelet count 0.183 on 07/26. 06/01: Platelet count 147K, improved from yesterday. H&H 8.8/25.6%. Bands 8%, metamyelocytes 4%. Pancytopenia since admission due to chemotherapy and radiotherapy 06/02: All 3 cell lines are low. Platelet count 129K. Patient also on Lovenox as mentioned above. #parkinson's disease with Dementia: On levodopa carbidopa #GERD: PPI #Hypothyroidism: On Synthroid #BPH: On Flomax DVT prophylaxis: not indicated as patient started on therapeutic lovenox for newly diagnosed PE Electrolyte abnormality: Hypocalcemia: Calcium 6.9, albumin 3.4. Corrected calcium is 7.4 therefore IV calcium gluconate ordered. 08/01: Severe hypokalemia, K2.6. 40 mEq oral and 40 mEq IV KCl replaced. Repeat serum magnesium and phosphorus and BMP after 1 hour of completion of electrolyte replacement. CODE STATUS:full code * Patient and counseled extensively about different types of CODE STATUS including full code, DNR CCA and DNR CCA. * Patients elects for him to be full code. Microbiology Past 72 Hours 07/30/25 18:25 Blood Culture (Wb) - Venous Blood Culture - Preliminary No growth in 48 hours. 07/30/25 16:23 Blood Culture (Wb) - Line Draw Blood Culture - Preliminary No growth in 48 hours. 07/30/25 18:51 Urine, Clean Catch Urine Culture - Preliminary Culture exhibits no growth. 07/30/25 21:57 Mucosa - Nasopharyngeal Respiratory Panel (PCR) - Final Laboratory Results 08/01/25 12:00: Sodium 135, Potassium 3.2 L, Chloride 102, Carbon Dioxide 22.7, Anion Gap 10, BUN 11, Creatinine 0.75, Estim Creat Clear Calc 70.06, Est GFR (MDRD) Non-Af 91, BUN/Creatinine Ratio 14.7, Glucose 100 H, Calcium 7.8, Phosphorus 1.7 L, Magnesium 1.7 08/02/25 03:20: WBC 2.3 L, RBC 2.98 L, Hgb 8.8 L, Hct 25.4 L, MCV 85.2, MCH 29.5, MCHC 34.6, RDW Std Deviation 41.4, RDW Coeff of Macho 13.4, Plt Count 129 L,MPV 10.1, Immature Gran % (Auto) 1.300 H, Neut % (Auto) 56.1, Lymph % (Auto) 18.7 L, [place] % (Auto) 19.6 H, Eos % (Auto) 1.7, Baso % (Auto) 2.6 H, Absolute Neuts (auto) 1.3 L, Absolute Lymphs (auto) 0.43 L, Nucleated RBC % 0, Differential Comment SCANNED, Sodium 136, Potassium 2.9 L, Chloride 103, Carbon Dioxide 24.6, Anion Gap 8, BUN 13, Creatinine 0.80, Estim Creat Clear Calc 70.06, Est GFR (MDRD) Non-Af 89, BUN/Creatinine Ratio 15.9, Glucose 111 H, Calcium 7.3 L, Total Bilirubin 0.48, AST 16, ALT 6, Alkaline Phosphatase 47, Total Protein 4.7 L, Albumin 2.6 L, Globulin 2.1 L, Albumin/Globulin Ratio 1.2 Clinical Impression(s) from Imaging Studies Chest X-Ray 07/30/25 18:25 IMPRESSION: No Acute Findings. Reading Location: [facility] Chest CTA 07/30/25 22:16 IMPRESSION: Right lower lobe segmental branches pulmonary emboli. No evidence of large central or massive pulmonary embolus. No evidence of cardiac strain. Minimal bilateral pleural effusions. Passive atelectatic airspace disease in the lower lobes. Mild interstitial pulmonary congestion. Right Port-A-Cath is in good position. Mild cardiomegaly. Small sliding hiatal hernia. Left renal simple cyst measuring 3.5 cm. Chronic deformity of the posterior arch of the left 11th rib. I discussed the findings with NIGEL Natarajan in the ICU at 12:33 a.m. EST. Reading Location: [place] [address] Charges/Coding Visit Charges Inpatient E&M: 78948 Subs Hosp L3 08/02/25 0832 <Electronically signed by Dev Reardon MD> Cosigner Signature (if applicable): CC: ~ Signed [facility] Work Phone: Progress note Author Dev Reardon [facility] Note Date/Time August 03, 2025 5 :22pm [facility] Medical Records Department [address] [place] [address] Progress Note - Hospitalist 08/03/25 1719 MR#: [id number] Acct: [id number] Name: GLENN PARADA DEV Rep #:[id number] : 1945 80 From: Dev Segovia PCP: Dr. Eloina Chi MD Status:ADM IN Location: [place] [address] Reason for Visit Chief Complaint: fever Objective Data Objective Data Vital Signs: Vital Signs Temp Pulse Resp BP Pulse Ox O2 Del Method O2 Flow Rate 99.3 F H 99 20 H 118/65 98 Room Air 2 08/03/25 15:01 08/03/25 15:01 08/03/25 15:01 08/03/25 15:01 08/03/25 15:01 08/03/25 15:01 07/31/25 07:00 Oxygen Flow Rate (L/min) 2 Oxygen Delivery Method Room Air Weight: 162 lb 7.691 oz Body Mass Index (BMI) 24.7 Intake & Output: Intake and Output for Last 24 Hours 08/01/25 08/02/25 08/03/25 23:59 23:59 23:59 Intake Total 2614 / 2614 2394.25 / 2394.25 1900.00 / 1900.00 Output Total 1525 / 1525 1650 / 1650 Balance 1089 / 1089 744.25 / 744.25 1900.00 / 1900.00 Medical Nutrition Assessment Dietitian: Malnutrition Criteria Met Start: 07/31/25 11:30 Freq: Status: Active Protocol: Document 07/31/25 11:30 SLA (Rec: 07/31/25 11:30 [facility] [id number]) Nutrition Malnutrition Evidence of Yes Malnutrition Exists Malnutrition (severe Chronic ): Evidenced By Suboptimal Energy Intake (Severe),Weight Loss (Severe) Intake Problem Inadequate Oral Intake Etiology related to oropharyngeal cancer Signs/Symptoms as evidenced by need for PEG/ EN for nutrition Status Active Problem Clinical Problem Acute Disease or Injury Related Malnutrition Etiology related to inadequate oral energy intake d/t oropharyngeal cancer Signs/Symptoms as evidenced by po intake meeting < 75% of est nutritional needs and 3% wt loss in past 5 days. Has started using PEG this week, but not up to goal yet. Status Active Problem Recommendation Dietitian Rec Jevity 1.5 bolus feeds 5x/day during waking hours - Recommendations/ goal of 240 ml per feed w/ 90 ml water flush before Changes and after feedings to provide ~ 1800 ynes / 76 gm pro/ 1812 ml free water per day. Would start day 1 at 50% giving 120 ml formula bolus feeds, day 2 increase to 75 % giving 180 ml formula bolus feeds and increase to goal rate 240 ml formula day 3 as pt tolerated. Continue to follow and monitor for changes in pt nutritional status and make additional rec as indicated . Lab / Micro Data 08/03/25 11:26 08/03/25 11:26 Labs: Laboratory Results - last 24 hr 08/02/25 21:06: Vancomycin Trough 14.3 08/03/25 11:26: WBC 6.6, RBC 3.37 L, Hgb 9.9 L, Hct 29.5 L, MCV 87.5, MCH 29.4, MCHC 33.6, RDW Std Deviation 43.0, RDW Coeff of Macho 13.9, Plt Count 152, MPV 10.6, Neut % (Auto) Not Reportable, Absolute Neuts (auto) 4.6, Absolute Lymphs (auto) 1.19, Total Counted 100, Neutrophils % (Manual) 50, Band Neutrophils % 19H, Lymphocytes % (Manual) 18 L, Monocytes % (Manual) 11 H, Metamyelocytes % 2 H,Platelet Estimate ADEQUATE, RBC Morphology NORM C+C, Sodium 137, Potassium 2.7 L*, Chloride 101, Carbon Dioxide 24.4, Anion Gap 12, BUN 9, Creatinine 1.03, Estim Creat Clear Calc 54.42, Est GFR (MDRD) Non-Af 73, BUN/Creatinine Ratio 9.1L, Glucose 101 H, Calcium 7.7, Total Bilirubin 0.53, AST 28, ALT 15, Alkaline Phosphatase 60, Total Protein 5.4 L, Albumin 3.0 L, Globulin 2.3, Albumin/Globulin Ratio 1.3 Micro: Microbiology 08/02/25 09:59 Nasal Secretion MRSA (PCR) - Final 07/30/25 18:51 Urine, Clean Catch Urine Culture - Final Culture exhibits no growth. 07/30/25 18:25 Blood Culture (Wb) - Venous Blood Culture - Preliminary No growth in 48 hours. 07/30/25 16:23 Blood Culture (Wb) - Line Draw Blood Culture - Preliminary No growth in 48 hours. 07/30/25 21:57 Mucosa - Nasopharyngeal Respiratory Panel (PCR) - Final Physical Exam Narrative Seen and examined Patient has swelling/thick mucus secretions over oropharyngeal and throat regionlooks better with Peridex. On tube feed through PEG tube. Had BM. No fever. Severe hold for serum potassium more than 5.0 Physical exam General: Alert, Oriented x3, Cooperative HEENT: Atraumatic, PERRLA, EOMI, Normocephalic. Oral: Yellowish patch over left and right lateral margin of anterior tongue. Thick mucoid whitish secretions are less. Oral gingivitis/soreness Neck: Supple, No JVD, Negative Carotid Bruits Chest wall/Lungs: Air entry diminished in bilateral lung bases. Mild crepitations on bases Cardiovascular: Regular rate and rhythm, Normal S1,S2, No M/G/R Abdomen: PEG tube bowel Sounds Present, Soft, Non Tender, Non-Distended : No dysuria. No renal angle tenderness. No suprapubic tenderness. Extremities: Mild leg edema, Capillary Refill Less than 3 Seconds Skin: No rashes, No breakdown Musculoskeletal: Decreased muscle strength of knees and hip joints. No Tenderness to Palpation of Joints or Extremities Neurological: DTR 2+/4. No acute focal neurological deficit. Psych/Mental Status: Flat affect. 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 #Acute febrile neutropenia in the setting of metastatic oropharyngeal cancer * Patient is admitted to ICU due to concerns for sepsis and rapid deterioration in light of his immunocompromised state. Admitted with a complaint of fever. He had radiation on day of admission and chemotherapy 4 days ago. * Denies any urinary symptoms or any respiratory symptoms or abdominal symptoms. Patient is tachycardic with heart rate of 131. Lactic acid is less than 1. * Patient was hydrated hydrate aggressively with IV fluids. Continue IV vancomycin and Zosyn. * Neutropenic precautions. * consult critical care. * 07/31: Low-grade fever today. Tmax 102.0 on 07/30 about 8 PM. Leukopenia, thrombocytopenia and anemia/pancytopenia. ANC 0.9 K suggestive of moderate neutropenia, ALC 0.27/lymphopenia, basophils 2.2%. Does not meet criteria for sepsis. Urine culture exhibits no growth. Respiratory panel negative. 08/01: No fever, Tmax 100.1 F. Still leukopenia, ANC 1.1 K, improved from 0.5 K. Started on Granix. Discussed with pharmacy and Peridex/chlorhexidine oral rinse ordered. Mouth hygiene. Continue antibiotic. ID consult tomorrow AM. 08/02: Tmax 100.4 Fahrenheit on 08/01 evening. ANC 1.2 K, continue Granix today. Continue Peridex and oral hygiene for mouth soreness and mucositis. Oncologist consult requested as per patient's request. He was supposed to startchemotherapy today but it is contraindicated due to neutropenic fever and pancytopenia for now. Cultures are negative so far. ID consulted to narrow down the antibiotic 08/03: No fever. Seen by ID and recommended 3 days of Augmentin 875 mg twice daily at time of discharge. Neutropenia has resolved. Granix discontinued. Patient was seen by oncologist Dr. Collins and recommended to follow-up as an outpatient after discharge to continue chemotherapy as outpatient #PE * D dimer ordered due to tachcyardia. * D dimer was markedly elevated at ~ 7, so stat CTA chest done which showed pulmonary embolism of the right lower lobe subsegmenal branches. * patient started on therapeutic lovenox. 05/31: Continue Lovenox. Shows mild decrease in hemoglobin and platelet count. Platelet count 0.183 on 07/26. 06/01: Platelet count 147K, improved from yesterday. H&H 8.8/25.6%. Bands 8%, metamyelocytes 4%. Pancytopenia since admission due to chemotherapy and radiotherapy 06/02: All 3 cell lines are low. Platelet count 129K. Patient also on Lovenox as mentioned above. #parkinson's disease with Dementia: On levodopa carbidopa #GERD: PPI #Hypothyroidism: On Synthroid #BPH: On Flomax DVT prophylaxis: not indicated as patient started on therapeutic lovenox for newly diagnosed PE Electrolyte abnormality: Hypocalcemia: Calcium 6.9, albumin 3.4. Corrected calcium is 7.4 therefore IV calcium gluconate ordered. 08/01: Severe hypokalemia, K2.6. 40 mEq oral and 40 mEq IV KCl replaced. Repeat serum magnesium and phosphorus and BMP after 1 hour of completion of electrolyte replacement. 08/03: Severe hypokalemia: Hypophosphatemia. IV potassium phosphate ordered. Oral potassium replacement. CODE STATUS:full code * Patient and counseled extensively about different types of CODE STATUS including full code, DNR CCA and DNR CCA. * Patients elects for him to be full code. Microbiology Past 72 Hours 08/02/25 09:59 Nasal Secretion MRSA (PCR) - Final 07/30/25 18:51 Urine, Clean Catch Urine Culture - Final Culture exhibits no growth. 07/30/25 18:25 Blood Culture (Wb) - Venous Blood Culture - Preliminary No growth in 48 hours. 07/30/25 16:23 Blood Culture (Wb) - Line Draw Blood Culture - Preliminary No growth in 48 hours. Laboratory Results 08/02/25 21:06: Vancomycin Trough 14.3 08/03/25 11:26: WBC 6.6, RBC 3.37 L, Hgb 9.9 L, Hct 29.5 L, MCV 87.5, MCH 29.4, MCHC 33.6, RDW Std Deviation 43.0, RDW Coeff of Macho 13.9, Plt Count 152, MPV 10.6, Neut % (Auto) Not Reportable, Absolute Neuts (auto) 4.6, Absolute Lymphs (auto) 1.19, Total Counted 100, Neutrophils % (Manual) 50, Band Neutrophils % 19H, Lymphocytes % (Manual) 18 L, Monocytes % (Manual) 11 H, Metamyelocytes % 2 H,Platelet Estimate ADEQUATE, RBC Morphology NORM C+C, Sodium 137, Potassium 2.7 L*, Chloride 101, Carbon Dioxide 24.4, Anion Gap 12, BUN 9, Creatinine 1.03, Estim Creat Clear Calc 54.42, Est GFR (MDRD) Non-Af 73, BUN/Creatinine Ratio 9.1L, Glucose 101 H, Calcium 7.7, Total Bilirubin 0.53, AST 28, ALT 15, Alkaline Phosphatase 60, Total Protein 5.4 L, Albumin 3.0 L, Globulin 2.3, Albumin/Globulin Ratio 1.3 Clinical Impression(s) from Imaging Studies Chest X-Ray 07/30/25 18:25 IMPRESSION: No Acute Findings. Reading [facility] Chest CTA 07/30/25 22:16 IMPRESSION: Right lower lobe segmental branches pulmonary emboli. No evidence of large central or massive pulmonary embolus. No evidence of cardiac strain. Minimal bilateral pleural effusions. Passive atelectatic airspace disease in the lower lobes. Mild interstitial pulmonary congestion. Right Port-A-Cath is in good position. Mild cardiomegaly. Small sliding hiatal hernia. Left renal simple cyst measuring 3.5 cm. Chronic deformity of the posterior arch of the left 11th rib. I discussed the findings with NIGEL Natarajan in the ICU at 12:33 a.m. EST. Reading Location: [place] [address] Charges/Coding Visit Charges Inpatient E&M: 49202 Subs Hosp L2 08/03/25 1722 <Electronically signed by Dev Reardon MD> Cosigner Signature (if applicable): CC: ~ Signed [facility] Work Phone: Progress note Author En Guerin [facility] Note Date/Time August 04, 2025 2 :55pm [facility] [address] [place] [id number] OFFICE VISIT Date of Service: 08/04/25 1343 MR#: [id number] Acct: [id number] Name: GLENN PARADA DEV Rep #: [id number] : 1945 From: En smallwood DO Age/Sex: 80/M Location: [facility] Status: Signed Intake Vital Signs 07/05/25 11:46 08/03/25 16:33 08/04/25 13:47 Height 5 ft 8 in 5 ft 8 in 5 ft 8 in Weight: 169 lb 12 oz BMI 25.8 BP 130/75 H Position Sitting Respiration 20 H Pulse 93 Pulse Source Monitor Temp 99.0 F Temperature Source Temporal Artery Pulse Oximetry (%) 93 Oxygen Delivery Method room air Intake Is patient in pain?: No Allergies gluten Allergy (Verified 08/04/25 13:47) Abd cramps/diarrhea aripiprazole Adverse Reaction (Verified 08/04/25 13:47) unknown haloperidol Adverse Reaction (Verified 08/04/25 13:47) unknown metoclopramide Adverse Reaction (Verified 08/04/25 13:47) unknown olanzapine Adverse Reaction (Verified 08/04/25 13:47) unknown prochlorperazine Adverse Reaction (Verified 08/04/25 13:47) unknown promethazine Adverse Reaction (Verified 08/04/25 13:47) unknown Have you fallen in the past year?: Yes PFSH PFSH Medical History Encounter for education Wears glasses Cancer Alcohol use History of steroid therapy Thyroid disease Uses wheelchair Arthritis Prostate disease Low iron DVT (deep venous thrombosis) Back pain Migraine headache Parkinson's disease Orthostatic hypotension Syncope Dietary restriction History of diverticulitis Gastric reflux Chronic cough Former smoker History of pain when walking History of stress test History of echocardiogram Cardiology follow-up encounter Celiac disease Allergy/AdvReac Type Severity Reaction Status Date / Time gluten Allergy Abd Verified 08/04/25 13:47 cramps/diarrhea aripiprazole AdvReac unknown Verified 08/04/25 13:47 haloperidol AdvReac unknown Verified 08/04/25 13:47 metoclopramide AdvReac unknown Verified 08/04/25 13:47 olanzapine AdvReac unknown Verified 08/04/25 13:47 prochlorperazine AdvReac unknown Verified 08/04/25 13:47 promethazine AdvReac unknown Verified 08/04/25 13:47 Family History Brother Cancer THROAT Mother Leukemia Sister Breast cancer Surgical History Hx of right cataract extraction Hx of left cataract extraction Hx of eye surgery History of hydrocelectomy Hx of hernia repair Hx of colonoscopy Social History household members: significant other housing: house current occupational status: retired Smoking Status: Former smoker alcohol intake: never substance use type: does not use Diagnosis: Glenn Parada is an 80 year-old male diagnosed with 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 Plan: Plan was made to complete definitive chemoradiation consisting of 6996 cGy delivered to the primary tumor in the left tonsillar region and gross adenopathyin the left neck, 5940 cGy delivered to the left neck levels 2-3, and 5412 cGy to the remaining left neck and contralateral neck all in 33 fractions. Treatment Data: Treatment Site: H&N Current total dose/Total dose planned: 4876 cGy / 6996 cGy Fraction number: Chemotherapy: weekly cisplatin Subjective: Pain: 5- Fatigue: none ENT: moderate to severe mucositis. moderate odynophagia, no dysphagia. decreased taste, severe xerostomia Skin: mild erythema, no rash or desquamation Nutrition/weight: Weight stable. not much by mouth. supplements, using TF Rinses: doing baking soda/salt rises. doing green tea rinses Respiratory: no cough, SOB Discharging today after being admitted for neutropenic fever. Objective: Weight: 07/07: 159 lbs 7 oz; 07/14: 160 lbs 3 oz, 07/21: 157 lbs 2 oz, 07/28: 156 lbs, 08/04: 169 lbs Physical Exam: Gen: NAD ENT: moderate oropharyngeal mucositis. No thrush or visualized lesions in the oral cavity or oropharynx. Tumor improved Skin: no erythema, rash, desquamation. Labs: 07/26/2025: CBC and CMP unremarkable Assessment & Plan Assessment/Plan (1) Squamous cell carcinoma of oropharynx: PLAN: Plan Assessment: Tolerating treatment well overall.? I reviewed and approved all treatment associated imaging. mucositis, mild pain, MMW, rinses xerostomia, biotene and water mucus, continue mucinex will try liquid, recommended rinses admitted for neutropenic fever, improving, encephalopathic, still planning home today ? Plan: Continue treatment as planned.? I have reviewed potential treatment associated toxicities as well as timing for resolution and management. Skin: Skin care reviewed, continue lotion at least bid Pain: mild to moderate, MMW Rinses: recommended baking soda/salt rinses 4-6/d, green tea rinses 2-3/d Follow up next week or sooner if needed. ? Thank you for allowing me to participate in the management and care of your patient. If I may answer any questions in the interim, please do not hesitate tocontact me at any time. ? 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 08/04/25 1425 <Electronically signed by En Guerin DO> Date _ En Guerin DO Cosigner Signature: Date (if applicable) CC: ~ [facility] Work Phone: Reason for referral (narrative)No reason for referral information availableWSelect Medical [facility] Work Phone: Reason for visit Narrative* Diagnostic X-Ray (Routine) - Closed Specialty Diagnoses / Procedures Referred By Americo melton Referred To Contact Radiology Diagnoses Tonsillar mass Procedures CT NEURO IMAGE IMPORT(JOHNATHAN) DOWNLOAD POWERSHARE IMAGES TO Reta Garces MD [address] [place] [address] Phone: tel: fax: [facility] [address] [place] [address] [place] [address] Phone: tel: Referral ID Status Reason Start Date Expiration Date Visits Re quested Visits Authorized [id number] Closed 05/14/2025 05/14/2026 1 1 [facility] Chief Complaint and Reason for Visit [...] 1:25pm Squamous cell carcinoma of oropharynx Se pt2024 1:25pm Chief Complaint Admit Date ACUTE PHARYNGITIS [...] 1:25pm Squamous cell carcinoma of oropharynx Se pt2024 1:25pm Encounter for insertion of venous access [...] 1:25pm Squamous cell carcinoma of oropharynx Se pt2024 1:25pm Encounter for insertion of venous access [...] carcinoma of oropharynx Se ptember 2024 2:20pm Chief Complaint Admit Date Localized swelling, mass and lump, head May [...] 2:20pm Rad Tx June 28, 2025 2:30pm Insertion, Right poss left Vascular Sept ember 2024 7:04am Insertion, Right poss left Vascular Sept ember 2024 7:18am Chief Complaint Admit Date Localized swelling, mass and lump, head May 03, 2025 12:38pm [facility]. RX HERE May 31, 2025 3: 30pm Amb Documentation June 10, 2025 10 :08am HEAD NECK June 15, 2025 6:41am SQUAMOUS CELL OROPHARYNX June 17, 2025 1:25pm PORT AND PEG June 21, 2025 1:21pm NEW-HEAD&NECK June 22, 2025 8:18am CHEMO ED LABS(DO NOT WAIT FOR) June 28, 2025 2:20pm Insertion, Right poss left Vascular Sept ember 2024 7:04am Insertion, Right poss left Vascular Sept ember 2024 7:18am 2WKS LABS [facility](PENDING INSURANCE&FOX ) July 05, 2025 7:38am OTV July 07, 2025 1:12pm Malignant neoplasm of oropharynx, unspec ified July 08, 2025 12:52pm 1 WEEK, LABS, [place] July 12, 2025 7:27am Squamous cell carc of oropharynx-EVALUAT E AND GONZALEZ July 12, 2025 9:30am SUTURE REMOVAL S/P PORT PLACEMENT - S eptember 2024 1:32pm Rad Tx July 13, 2025 1:20pm Reason for Visit Admit Date Squamous cell [...] carcinoma of oropharynx Se ptember 2024 2:20pm Chemotherapy management, encounter for S eptember 2024 7:38am Nodule of chest wall July 05 7:38am 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 July 05, 2025 7:38am Squamous cell carcinoma of oropharynx Se ptember 2024 7:38am Squamous cell carcinoma of oropharynx Se ptember 2024 1:12pm Chemotherapy management, encounter for S eptember 2024 7:27am Nodule of chest wall July 12 7:27am 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 July 12, 2025 7:27am Squamous cell carcinoma of oropharynx Se ptember 2024 7:27am Port-A-Cath in place July 12 1:32pm S/P percutaneous endoscopic gastrostomy (PEG) tube placement July 12, 2025 1:32pm Chief Complaint Admit Date Localized swelling, mass and lump, head May 03, 2025 12:38pm [facility]. RX HERE May 31, 2025 3: 30pm Amb Documentation June 10, 2025 10 :08am HEAD NECK June 15, 2025 6:41am SQUAMOUS CELL OROPHARYNX June 17, 2025 1:25pm PORT AND PEG June 21, 2025 1:21pm NEW-HEAD&NECK June 22, 2025 8:18am CHEMO ED LABS(DO NOT WAIT FOR) June 28, 2025 2:20pm Insertion, Right poss left Vascular Sept ember 2024 7:04am Insertion, Right poss left Vascular Sept ember 2024 7:18am 2WKS LABS [facility](PENDING INSURANCE&FOX ) July 05, 2025 7:38am OTV July 07, 2025 1:12pm Malignant neoplasm of oropharynx, unspec ified July 08, 2025 12:52pm 1 WEEK, LABS, [place] July 12, 2025 7:27am Squamous cell carc of oropharynx-EVALUAT E AND GONZALEZ July 12, 2025 9:30am SUTURE REMOVAL S/P PORT PLACEMENT 9-17 S eptember 2024 1:32pm OTV July 14, 2025 1: 07pm Rad Tx July 14, 2025 1: 20pm Reason for Visit Admit Date Squamous cell [...] carcinoma of oropharynx Se ptember 2024 2:20pm Chemotherapy management, encounter for S eptember 2024 7:38am Nodule of chest wall July 05 7:38am 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 July 05, 2025 7:38am Squamous cell carcinoma of oropharynx Se ptember 2024 7:38am Squamous cell carcinoma of oropharynx Se ptember 2024 1:12pm Chemotherapy management, encounter for S eptember 2024 7:27am Nodule of chest wall July 12 7:27am 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 July 12, 2025 7:27am Squamous cell carcinoma of oropharynx Se ptember 2024 7:27am Port-A-Cath in place July 12 1:32pm S/P percutaneous endoscopic gastrostomy (PEG) tube placement July 12, 2025 1:32pm Squamous cell carcinoma of oropharynx Oc tober 2024 1:07pm Chief Complaint Admit Date Localized swelling, mass and lump, head May 03, 2025 12:38pm [facility]. RX HERE May 31, 2025 3: 30pm Amb Documentation June 10, 2025 10 :08am HEAD NECK June 15, 2025 6:41am SQUAMOUS CELL OROPHARYNX June 17, 2025 1:25pm PORT AND PEG June 21, 2025 1:21pm NEW-HEAD&NECK June 22, 2025 8:18am CHEMO ED LABS(DO NOT WAIT FOR) June 28, 2025 2:20pm Insertion, Right poss left Vascular Sept ember 2024 7:04am Insertion, Right poss left Vascular Sept ember 2024 7:18am 2WKS LABS [facility](PENDING INSURANCE&FOX ) July 05, 2025 7:38am OTV July 07, 2025 1:12pm Malignant neoplasm of oropharynx, unspec ified July 08, 2025 12:52pm 1 WEEK, [place], [place] July 12, 2025 7:27am Squamous cell carc of oropharynx-EVALUAT E AND GONZALEZ July 12, 2025 9:30am SUTURE REMOVAL S/P PORT PLACEMENT 06-30 S eptember 2024 1:32pm OTV July 14, 2025 1: 07pm 1 WEEK, [place], [place] July 19, 2025 7: 39am Rad Tx July 19, 2025 7: 45am Reason for Visit Admit Date Squamous cell [...] carcinoma of oropharynx Se ptember 2024 2:20pm Chemotherapy management, encounter for S eptember 2024 7:38am Nodule of chest wall July 05 7:38am 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 July 05, 2025 7:38am Squamous cell carcinoma of oropharynx Se ptember 2024 7:38am Squamous cell carcinoma of oropharynx Se ptember 2024 1:12pm Chemotherapy management, encounter for S eptember 2024 7:27am Nodule of chest wall July 12 7:27am 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 July 12, 2025 7:27am Squamous cell carcinoma of oropharynx Se ptember 2024 7:27am Port-A-Cath in place July 12 1:32pm S/P percutaneous endoscopic gastrostomy (PEG) tube placement July 12, 2025 1:32pm Squamous cell carcinoma of oropharynx Oc tober 2024 1:07pm Chemotherapy management, encounter for O ctober 2024 7:39am Nodule of chest wall July 19, 2025 7 :39am 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 July 19, 2025 7:39am Squamous cell carcinoma of oropharynx Oc tober 2024 7:39am Chief Complaint Admit Date Localized swelling, mass and lump, head May 03, 2025 12:38pm [facility] HERE May 31, 2025 3: 30pm Amb Documentation June 10, 2025 10 :08am HEAD NECK June 15, 2025 6:41am SQUAMOUS CELL OROPHARYNX June 17, 2025 1:25pm PORT AND PEG June 21, 2025 1:21pm NEW-HEAD&NECK June 22, 2025 8:18am CHEMO ED LABS(DO NOT WAIT FOR) June 28, 2025 2:20pm Insertion, Right poss left Vascular Sept emb2024 7:04am Insertion, Right poss left Vascular Sept ember 2024 7:18am 2WKS LABS [facility](PENDING INSURANCE&FOX ) July 05, 2025 7:38am OTV July 07, 2025 1:12pm Malignant neoplasm of oropharynx, unspec ified July 08, 2025 12:52pm 1 WEEK, [place] July 12, 2025 7:27am SUTURE REMOVAL S/P PORT PLACEMENT 9-17 S eptember 2024 1:32pm OTV July 14, 2025 1: 07pm 1 WEEK, [place] July 19, 2025 7: 39am Rad Tx July 20, 2025 11 :00am OTV July 21, 2025 1: 12pm Squamous cell carc of oropharynx-EVALUAT E AND GONZALEZ July 21, 2025 1:30pm Reason for Visit Admit Date Squamous cell [...] carcinoma of oropharynx Se ptember 2024 2:20pm Chemotherapy management, encounter for S eptember 2024 7:38am Nodule of chest wall July 05 7:38am 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 July 05, 2025 7:38am Squamous cell carcinoma of oropharynx Se ptember 2024 7:38am Squamous cell carcinoma of oropharynx Se ptember 2024 1:12pm Chemotherapy management, encounter for S eptember 2024 7:27am Nodule of chest wall July 12 7:27am 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 July 12, 2025 7:27am Squamous cell carcinoma of oropharynx Se ptember 2024 7:27am Port-A-Cath in place July 12 1:32pm S/P percutaneous endoscopic gastrostomy (PEG) tube placement July 12, 2025 1:32pm Squamous cell carcinoma of oropharynx Oc tober 2024 1:07pm Chemotherapy management, encounter for O ctober 2024 7:39am Nodule of chest wall July 19, 2025 7 :39am 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 July 19, 2025 7:39am Squamous cell carcinoma of oropharynx Oc tober 2024 7:39am Squamous cell carcinoma of oropharynx Oc tober 2024 1:12pm Chief Complaint Admit Date Localized swelling, mass and lump, head May 03, 2025 12:38pm [facility] HERE May 31, 2025 3: 30pm Amb Documentation June 10, 2025 10 :08am HEAD NECK June 15, 2025 6:41am SQUAMOUS CELL OROPHARYNX June 17, 2025 1:25pm PORT AND PEG June 21, 2025 1:21pm NEW-HEAD&NECK June 22, 2025 8:18am CHEMO ED LABS(DO NOT WAIT FOR) June 28, 2025 2:20pm Insertion, Right poss left Vascular Sept emb2024 7:04am Insertion, Right poss left Vascular Sept ember 2024 7:18am 2WKS LABS [facility](PENDING INSURANCE&FOX ) July 05, 2025 7:38am OTV July 07, 2025 1:12pm Malignant neoplasm of oropharynx, unspec ified July 08, 2025 12:52pm 1 WEEK, [place] July 12, 2025 7:27am SUTURE REMOVAL S/P PORT PLACEMENT 9-17 S eptember 2024 1:32pm OTV July 14, 2025 1: 07pm 1 WEEK, [place] July 19, 2025 7: 39am OTV July 21, 2025 1: 12pm 1 WEEK, [place] July 26, 2025 7 :35am OTV July 28, 2025 1 0:43am Squamous cell carc of oropharynx-[facility] E [facility] July 29, 2025 9:30am FEBRILE NEUTROPENIA July 30, 2025 7 :55pm FEBRILE NEUTROPENIA July 31, 2025 8 :30am FEBRILE NEUTROPENIA August 01, 2025 8 :23am FEBRILE NEUTROPENIA August 02, 2025 8 :26am FEBRILE NEUTROPENIA August 02, 2025 1 :39pm FEBRILE NEUTROPENIA August 03, 2025 5 :19pm FEBRILE NEUTROPENIA August 04, 2025 1 0:43am OTV August 04, 2025 1 :41pm Rad Tx August 06, 2025 1 :20pm SUSPECTED PNA, DEHYDRATION & GENERALIZED WEAKNESS August 07, 2025 5:24am SUSPECTED PNA, DEHYDRATION & GENERALIZED WEAKNESS August 08, 2025 7:46am SUSPECTED PNA, DEHYDRATION & GENERALIZED WEAKNESS August 09, 2025 9:24am Reason for Visit Admit Date Squamous cell [...] carcinoma of oropharynx Se ptember 2024 2:20pm Chemotherapy management, encounter for S eptember 2024 7:38am Nodule of chest wall July 05 7:38am 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 July 05, 2025 7:38am Squamous cell carcinoma of oropharynx Se ptember 2024 7:38am Squamous cell carcinoma of oropharynx Se ptember 2024 1:12pm Chemotherapy management, encounter for S eptember 2024 7:27am Nodule of chest wall July 12 7:27am 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 July 12, 2025 7:27am Squamous cell carcinoma of oropharynx Se ptember 2024 7:27am Port-A-Cath in place July 12 1:32pm S/P percutaneous endoscopic gastrostomy (PEG) tube placement July 12, 2025 1:32pm Squamous cell carcinoma of oropharynx Oc tober 2024 1:07pm Chemotherapy management, encounter for O ctober 2024 7:39am Nodule of chest wall July 19, 2025 7 :39am 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 July 19, 2025 7:39am Squamous cell carcinoma of oropharynx Oc tober 2024 7:39am Squamous cell carcinoma of oropharynx Oc tober 2024 1:12pm Chemotherapy management, encounter for O ctober 2024 7:35am Hyponatremia July 26, 2025 7 :35am 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 Octob er 2024 7:35am Nodule of chest wall July 26, 2025 7:35am 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 July 26, 2025 7:35am Squamous cell carcinoma of oropharynx Oc tober 2024 7:35am Squamous cell carcinoma of oropharynx Oc tober 2024 10:43am Encephalopathy acute July 30, 2025 7:55pm Neutropenia with fever July 30 7:55pm Squamous cell carcinoma of oropharynx Oc tober 2024 1:41pm Chronic anticoagulation August 07 5:24am Dehydration August 07, 2025 5 :24am Generalized weakness August 07, 2025 5:24am History of DVT (deep vein thrombosis) Oc tober 2024 5:24am Parkinson's disease August 07, 2025 5 :24am Pneumonia August 07, 2025 5 :24am Squamous cell carcinoma of oropharynx Oc tober 2024 5:24am Chief Complaint Admit Date Localized swelling, mass and lump, head May 03, 2025 12:38pm [facility] HERE May 31, 2025 3: 30pm Amb Documentation June 10, 2025 10 :08am HEAD NECK June 15, 2025 6:41am SQUAMOUS CELL OROPHARYNX June 17, 2025 1:25pm PORT AND PEG June 21, 2025 1:21pm NEW-HEAD&NECK June 22, 2025 8:18am CHEMO ED LABS(DO NOT WAIT FOR) June 28, 2025 2:20pm Insertion, Right poss left Vascular Sept ember 2024 7:04am Insertion, Right poss left Vascular Sept ember 2024 7:18am 2WKS LABS [facility](PENDING INSURANCE&FOX ) July 05, 2025 7:38am OTV July 07, 2025 1:12pm Malignant neoplasm of oropharynx, unspec ified July 08, 2025 12:52pm 1 WEEK, [place] July 12, 2025 7:27am SUTURE REMOVAL S/P PORT PLACEMENT 9-17 S eptember 2024 1:32pm OTV July 14, 2025 1: 07pm 1 WEEK, [place] July 19, 2025 7: 39am OTV July 21, 2025 1: 12pm 1 WEEK, [place] July 26, 2025 7 :35am OTV July 28, 2025 1 0:43am Squamous cell carc of oropharynx-[facility] July 29, 2025 9:30am FEBRILE NEUTROPENIA July 30, 2025 7 :55pm FEBRILE NEUTROPENIA July 31, 2025 8 :30am FEBRILE NEUTROPENIA August 01, 2025 8 :23am FEBRILE NEUTROPENIA August 02, 2025 8 :26am FEBRILE NEUTROPENIA August 02, 2025 1 :39pm FEBRILE NEUTROPENIA August 03, 2025 5 :19pm FEBRILE NEUTROPENIA August 04, 2025 1 0:43am OTV August 04, 2025 1 :41pm Rad Tx August 06, 2025 1 :20pm SUSPECTED PNA, DEHYDRATION & GENERALIZED WEAKNESS August 07, 2025 5:24am SUSPECTED PNA, DEHYDRATION & GENERALIZED WEAKNESS August 08, 2025 7:46am SUSPECTED PNA, DEHYDRATION & GENERALIZED WEAKNESS August 09, 2025 9:24am SUSPECTED PNA, DEHYDRATION & GENERALIZED WEAKNESS August 10, 2025 7:19am Chief Complaint Admit Date Localized swelling, mass and lump, head May 03, 2025 12:38pm [facility] RX HERE May 31, 2025 3: 30pm Amb Documentation June 10, 2025 10 :08am HEAD NECK June 15, 2025 6:41am SQUAMOUS CELL OROPHARYNX June 17, 2025 1:25pm PORT AND PEG June 21, 2025 1:21pm NEW-HEAD&NECK June 22, 2025 8:18am CHEMO ED LABS(DO NOT WAIT FOR) June 28, 2025 2:20pm Insertion, Right poss left Vascular Sept ember 2024 7:04am Insertion, Right poss left Vascular Sept ember 2024 7:18am 2WKS LABS [facility](PENDING INSURANCE&FOX ) July 05, 2025 7:38am OTV July 07, 2025 1:12pm Malignant neoplasm of oropharynx, unspec ified July 08, 2025 12:52pm 1 WEEK, [place] July 12, 2025 7:27am SUTURE REMOVAL S/P PORT PLACEMENT 9-17 S eptember 2024 1:32pm OTV July 14, 2025 1: 07pm 1 WEEK, [place] July 19, 2025 7: 39am OTV July 21, 2025 1: 12pm 1 WEEK, [place] July 26, 2025 7 :35am OTV July 28, 2025 1 0:43am Squamous cell carc of oropharynx-[facility] E [facility] G[facility] July 29, 2025 9:30am FEBRILE NEUTROPENIA July 30, 2025 7 :55pm FEBRILE NEUTROPENIA July 31, 2025 8 :30am FEBRILE NEUTROPENIA August 01, 2025 8 :23am FEBRILE NEUTROPENIA August 02, 2025 8 :26am FEBRILE NEUTROPENIA August 02, 2025 1 :39pm FEBRILE NEUTROPENIA August 03, 2025 5 :19pm FEBRILE NEUTROPENIA August 04, 2025 1 0:43am OTV August 04, 2025 1 :41pm SUSPECTED PNA, DEHYDRATION & GENERALIZED WEAKNESS August 07, 2025 5:24am SUSPECTED PNA, DEHYDRATION & GENERALIZED WEAKNESS August 08, 2025 7:46am SUSPECTED PNA, DEHYDRATION & GENERALIZED WEAKNESS August 09, 2025 9:24am SUSPECTED PNA, DEHYDRATION & GENERALIZED WEAKNESS August 10, 2025 7:19am OTV August 11, 2025 1 :07pm Rad Tx August 12, 2025 1 :20pm Reason for Visit Admit Date Squamous cell [...] carcinoma of oropharynx Se ptember 2024 2:20pm Chemotherapy management, encounter for S eptember 2024 7:38am Nodule of chest wall July 05 7:38am 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 July 05, 2025 7:38am Squamous cell carcinoma of oropharynx Se ptember 2024 7:38am Squamous cell carcinoma of oropharynx Se ptember 2024 1:12pm Chemotherapy management, encounter for S eptember 2024 7:27am Nodule of chest wall July 12 7:27am 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 July 12, 2025 7:27am Squamous cell carcinoma of oropharynx Se ptember 2024 7:27am Port-A-Cath in place July 12 1:32pm S/P percutaneous endoscopic gastrostomy (PEG) tube placement July 12, 2025 1:32pm Squamous cell carcinoma of oropharynx Oc tober 2024 1:07pm Chemotherapy management, encounter for O ctober 2024 7:39am Nodule of chest wall July 19, 2025 7 :39am 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 July 19, 2025 7:39am Squamous cell carcinoma of oropharynx Oc tober 2024 7:39am Squamous cell carcinoma of oropharynx Oc tober 2024 1:12pm Chemotherapy management, encounter for O ctober 2024 7:35am Hyponatremia July 26, 2025 7 :35am 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 Octob er 2024 7:35am Nodule of chest wall July 26, 2025 7:35am 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 July 26, 2025 7:35am Squamous cell carcinoma of oropharynx Oc tober 2024 7:35am Squamous cell carcinoma of oropharynx Oc tober 2024 10:43am Encephalopathy acute July 30, 2025 7:55pm Neutropenia with fever July 30 7:55pm Squamous cell carcinoma of oropharynx Oc tober 2024 1:41pm Chronic anticoagulation August 07 5:24am Dehydration August 07, 2025 5 :24am Generalized weakness August 07, 2025 5:24am History of DVT (deep vein thrombosis) Oc 2024 5:24am Parkinson's disease August 07, 2025 5 :24am Squamous cell carcinoma of oropharynx Oc 2024 5:24am Pneumonia August 07, 2025 5 :24am Squamous cell carcinoma of oropharynx Oc tob2024 1:07pm Chief Complaint Admit Date Localized swelling, mass and lump, head May 03, 2025 12:38pm [facility] RX HERE May 31, 2025 3: 30pm Amb Documentation June 10, 2025 10 :08am HEAD NECK June 15, 2025 6:41am SQUAMOUS CELL OROPHARYNX June 17, 2025 1:25pm PORT AND PEG June 21, 2025 1:21pm NEW-HEAD&NECK June 22, 2025 8:18am CHEMO ED LABS(DO NOT WAIT FOR) June 28, 2025 2:20pm Insertion, Right poss left Vascular Sept ember 2024 7:04am Insertion, Right poss left Vascular Sept ember 2024 7:18am 2WKS LABS [facility](PENDING INSURANCE&FOX ) July 05, 2025 7:38am OTV July 07, 2025 1:12pm Malignant neoplasm of oropharynx, unspec ified July 08, 2025 12:52pm 1 WEEK, [place] July 12, 2025 7:27am SUTURE REMOVAL S/P PORT PLACEMENT 9-17 S eptember 2024 1:32pm OTV July 14, 2025 1: 07pm 1 WEEK, [place] July 19, 2025 7: 39am OTV July 21, 2025 1: 12pm 1 WEEK, [place] July 26, 2025 7 :35am OTV July 28, 2025 1 0:43am Squamous cell carc of oropharynx-[facility]ALUAT E AND G[facility]Z July 29, 2025 9:30am FEBRILE NEUTROPENIA July 30, 2025 7 :55pm FEBRILE NEUTROPENIA July 31, 2025 8 :30am FEBRILE NEUTROPENIA August 01, 2025 8 :23am FEBRILE NEUTROPENIA August 02, 2025 8 :26am FEBRILE NEUTROPENIA August 02, 2025 1 :39pm FEBRILE NEUTROPENIA August 03, 2025 5 :19pm FEBRILE NEUTROPENIA August 04, 2025 1 0:43am OTV August 04, 2025 1 :41pm SUSPECTED PNA, DEHYDRATION & GENERALIZED WEAKNESS August 07, 2025 5:24am SUSPECTED PNA, DEHYDRATION & GENERALIZED WEAKNESS August 08, 2025 7:46am SUSPECTED PNA, DEHYDRATION & GENERALIZED WEAKNESS August 09, 2025 9:24am SUSPECTED PNA, DEHYDRATION & GENERALIZED WEAKNESS August 10, 2025 7:19am OTV August 11, 2025 1 :07pm Amb Documentation August 18, 2025 1 0:39am OTV August 18, 2025 1 :13pm Rad Tx August 18, 2025 1 :20pm Reason for Visit Admit Date Squamous cell [...] carcinoma of oropharynx Se ptember 2024 2:20pm Chemotherapy management, encounter for S eptember 2024 7:38am Nodule of chest wall July 05 7:38am 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 July 05, 2025 7:38am Squamous cell carcinoma of oropharynx Se ptember 2024 7:38am Squamous cell carcinoma of oropharynx Se ptember 2024 1:12pm Chemotherapy management, encounter for S eptember 2024 7:27am Nodule of chest wall July 12 7:27am 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 Viviane 29th, 2025 7:27am Squamous cell carcinoma of oropharynx Se ptember 2024 7:27am Port-A-Cath in place July 12 1:32pm S/P percutaneous endoscopic gastrostomy (PEG) tube placement July 12, 2025 1:32pm Squamous cell carcinoma of oropharynx Oc tober 2024 1:07pm Chemotherapy management, encounter for O ctober 2024 7:39am Nodule of chest wall July 19, 2025 7 :39am 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 July 19, 2025 7:39am Squamous cell carcinoma of oropharynx Oc tober 2024 7:39am Squamous cell carcinoma of oropharynx Oc tober 2024 1:12pm Chemotherapy management, encounter for O ctober 2024 7:35am Hyponatremia July 26, 2025 7 :35am 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 Octob er 2024 7:35am Nodule of chest wall July 26, 2025 7:35am 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 July 26, 2025 7:35am Squamous cell carcinoma of oropharynx Oc tober 2024 7:35am Squamous cell carcinoma of oropharynx Oc tober 2024 10:43am Encephalopathy acute July 30, 2025 7:55pm Neutropenia with fever July 30 7:55pm Squamous cell carcinoma of oropharynx Oc tober 2024 1:41pm Chronic anticoagulation August 07 5:24am Dehydration August 07, 2025 5 :24am Generalized weakness August 07, 2025 5:24am History of DVT (deep vein thrombosis) Oc tober 2024 5:24am Parkinson's disease August 07, 2025 5 :24am Squamous cell carcinoma of oropharynx Oc er 2024 5:24am Pneumonia August 07, 2025 5 :24am Squamous cell carcinoma of oropharynx Oc tober 2024 1:07pm Squamous cell carcinoma of oropharynx No vember 2024 1:13pm Reason for Referral Specialty Diagnoses / Procedures Referred By Americo melton Referred To Contact [facility] Diagnoses Parkinson's disease without dyskinesia, with fluctuating manifestations (HCC) Procedures CONSULT TO PHYSICAL THERAPY PHYSICAL THERAPY EVALUATION HIGH COMPLEX 45 MINS Amisha Sarabia MD [address] [place] [address] [facility] [address] [place], [place] [id number] Referral ID Status Reason Start Date Expiration Date Visits Requested Visits Authorized [id number] Pending Review Auto-Generat ed Referral 12/19/2023 12/18/2024 1 1 Specialty Diagnoses / Procedures Referred By Contac t Referred To Contact Diagnoses Parkinson's disease without dyskinesia, with fluctuating manifestations (HCC) Procedures PROVIDER ORDERED FOLLOW UP OFFICE/OUTPATIENT NEW HIGH MDM 60 [place] [address] [place], [place] [id number] Referral ID Status Reason Start Date Expiration Date Visits Requested Visits Authorized [id number] Authorized PCP Requested Referral 12/19/2023 03/18/2024 1 1 Specialty Diagnoses / Procedures Referred By Contac t Referred To Contact Diagnoses Parkinson's disease without dyskinesia or fluctuating manifestations (HCC) Procedures PROVIDER ORDERED FOLLOW UP OFFICE/OUTPATIENT NEW HIGH MDM 60 MINUTES Aries Sarabia APRN.CNP [address] [place], [place] [id number] Referral ID Status Reason Start Date Expiration Date Visits Requested Visits Authorized [id number] Authorized PCP Requested Referral 06/17/2024 03/17/2025 1 1 Specialty Diagnoses / Procedures Referred By Contac t Referred To Contact Diagnoses Parkinson's disease without dyskinesia or fluctuating manifestations (HCC) Procedures PROVIDER ORDERED FOLLOW UP OFFICE/OUTPATIENT NEW HIGH MDM 60 [place] [address] [place], [place] [id number] Referral ID Status Reason Start Date Expiration Date Visits Requested Visits Authorized [id number] Authorized PCP Requested Referral 03/22/2025 09/21/2025 1 1 Advance Directives Advance Directive Response Recorded Date/ Time Living Will No December 26, 2024 5:19pm Power of [employer] Yes December 26 5:19pm Name of Medical Power of [employer] Janel Parada December 26, 2024 5:19pm Advance Directive Response Recorded Date/ Time Living Will No December 26, 2024 5:19pm Do you have a Healthcare Power of [employer]? Yes December 26, 2024 5:19pm Name of Medical Power of [employer] Janel Parada December 26, 2024 5:19pm Advance Directive Response Recorded Date/ Time Do you have a Healthcare Power of [employer]? Yes June 24, 2025 8:12am Advance Directive Response Recorded Date/ Time Do you have a Healthcare Power of [employer]? Yes June 24, 2025 8:12am Advance Directives on File Yes Freddyori jger 2024 9:10am Living Will No July 12, 2025 9:10am Do you have a Healthcare Power of [employer]? Yes July 12, 2025 9:10am Name of Medical Power of [employer] Janel- July 12, 2025 9:10am Advance Directives Yes June 9:10am Advance Directive Response Recorded Date/ Time Do you have a Healthcare Power of [employer]? Yes June 24, 2025 8:12am Advance Directives on File Yes Octob er 2024 9:09am Living Will No July 19 9:09am Do you have a Healthcare Power of [employer]? Yes July 19, 2025 9:09am Name of Medical Power of [employer] Janel- July 19, 2025 9:09am Advance Directives Yes July 19, 2025 9:09am Advance Directive Response Recorded Date/ Time Do you have a Healthcare Power of [employer]? Yes June 24, 2025 8:12am Do you have a Healthcare Power of [employer]? No August 07, 2025 5:52am Advance Directives on File Yes Octob er 2024 9:53am Living Will No July 26 9:53am Do you have a Healthcare Power of [employer]? Yes July 26, 2025 9:53am Name of Medical Power of [employer] Janel- July 26, 2025 9:53am Advance Directives Yes July 26, 2025 9:53am Do you have a Healthcare Power of [employer]? Yes August 02, 2025 1:42pm Name of Medical Power of [employer] Janel, July 30, 2025 8:47pm Advance Directive Response Recorded Date/ Time Do you have a Healthcare Power of [employer]? Yes June 24, 2025 7:12am Do you have a Healthcare Power of [employer]? No August 07, 2025 4:52am Advance Directives on File Yes Octob 2024 8:53am Living Will No July 26 8:53am Do you have a Healthcare Power of [employer]? Yes July 26, 2025 8:53am Name of Medical Power of [employer] Janel- July 26, 2025 8:53am Advance Directives Yes July 26, 2025 8:53am Do you have a Healthcare Power of [employer]? Yes August 02, 2025 12:42pm Name of Medical Power of [employer] Janel, July 30, 2025 7:47pm Summary Purpose Family History Relationship Condition Age [...] Primary Care Provider, Referring Prov ider Active DIETER Jarquin Attending Provider Active Team Status: Inactive Member Role Status Dates Eloina Chi MD Primary Care Provider Active Dr. Kiran Sarkar MD Attending Provider Active Team Status: Inactive Member Role Status Dates Eloina Chi MD Primary Care Provider, Attending Prov ider Active Security System Sales Consultant Relationship Specialty Start Date End Date Eloina Chi MD [address] [address] [place], [place] [phone] PCP - General Internal Medicine 05/15/24 Security System Sales Consultant Relationship Specialty Start Date End Date Eloina Chi MD [address] [facility] [address] [place], [place] [id number] PCP - General Internal Medicine 05/15/24 Security System Sales Consultant Relationship Specialty Start Date End Date Eloina Chi MD [address] [place], [place] [phone] PCP - General Internal Medicine 05/15/24 Security System Sales Consultant Relationship Specialty Start Date End Date Eloina Chi MD [address] [place], [place] [phone] PCP - General Internal Medicine 05/15/24 Security System Sales Consultant Relationship Specialty Start Date End Date Eloina Chi MD [address] [place] [facility] [address] [place], [place] [phone] PCP - General Internal Medicine 05/15/24 Security System Sales Consultant Relationship Specialty Start Date End Date Eloina Chi MD [address] [facility] [address] [place], [place] [phone] PCP - General Internal Medicine 05/15/24 Team Status: Inactive Member Role Status Dates Eloina Chi MD Primary Care Provider Active St art: October 04, 2024 End: October 04, 2024 Eloina Chi MD Referring Provider Active Start : October 04, 2024 End: October 04, 2024 Ranulfo Gaspar CERAMIC TILE INSTALLATION HELPER, CERAMIC TILE INSTALLATION HELPER-C Attending Provider Active S tart: October 04, 2024 End: October 04, 2024 Team Status: Inactive Member Role Status Dates Eloina Chi MD Primary Care Provider Active St art: December 26, 2024 End: December 26, 2024 Carlos Dennis MD Emergency Provider Active Star t: December 26, 2024 End: December 26, 2024 Security System Sales Consultant Relationship Specialty Start Date End Date Eloina Chi MD [address] [facility] [address] [place], [place] [id number] PCP - General Internal Medicine 05/15/24 Security System Sales Consultant Relationship Specialty Start Date End Date Eloina Chi MD [address] [facility] [address] [place], [place] [id number] PCP - General Internal Medicine 05/15/24 Security System Sales Consultant Relationship Specialty Start Date End Date Eloina Chi MD [address] [facility] [address] [place], [place] [phone] PCP - General Internal Medicine 05/15/24 Team Status: Active Member Role/Relationship Status Slime Chi MD Primary Care Provider Active Team Status: Inactive Member Role/Relationship Status Slime Chi MD Primary Care Provider Active St art: February 08, 2025 End: February 08, 2025 Ariel Duque PA Attending Provider Active Star t: February 08, 2025 End: February 08, 2025 Ariel Duque , PA Referring Provider Active Star t: February 08, 2025 End: February 08, 2025 Team Status: Inactive Member Role/Relationship Status Slime Chi MD Primary Care Provider Active St art: March 01, 2025 End: March 01, 2025 Ariel Duque PA Attending Provider Active Star t: March 01, 2025 End: March 01, 2025 Ariel Duque PA Referring Provider Active Star t: March [...] St art: June 15, 2025 Dr. Reta Siegel MD Attending Provider Active St art: June 15, 2025 Dr. Reta Siegel MD Referring Provider Active St art: June 15, 2025 Team Status: Inactive Member Role/Relationship Status Dates Dr. En Guerin DO Attending Provider Active Start: June 17, 2025 End: June 17, 2025 Dr. Reta Siegel MD Referring Provider Active St art: June 17, 2025 End: June 17, 2025 Team Status: Active Member Role/Relationship Status Slime Chi MD Primary Care Provider Active St art: June 15, 2025 Dr. Reta Siegel MD Attending Provider Active St art: June 15, 2025 Dr. Reta Siegel MD Referring Provider Active St art: June 15, 2025 Team Status: Inactive Member Role/Relationship Status Dates Dr. En Guerin DO Attending Provider Active Start: June 17, 2025 End: June 17, 2025 Dr. Reta Siegel MD Referring Provider Active St art: June [...] 2025 End: June 15, 2025 Dr. Reta Siegel MD Attending Provider Active St art: June 15, 2025 End: June 15, 2025 Dr. Reta Siegel MD Referring Provider Active St art: June [...] 2025 End: June 28, 2025 Jayashree Anderson NP, [employer]ER[employer] TILE INSTALLATION HELPER-C Attending Provider Active Start: June 28, 2025 End: June 28, 2025 Team Status: Active Member Role/Relationship Status Slime Chi MD Primary Care Provider Active St art: June 28, 2025 Dr. En Guerin DO Attending Provider Active Start: June 28, 2025 Dr. En Guerin DO Referring Provider Active Start: June 28, 2025 Team Status: Active Member Role/Relationship Status Slime Chi MD Primary care physician Active Team Status: Inactive Member Role/Relationship Status Slime Chi MD Primary care physician Active S tart: May 03, 2025 End: May 03, 2025 Dr. Anusha Ward MD Attending physician Acti ve Start: May 03, 2025 End: May 03, 2025 Dr. Anusha Ward MD Referring Provider Activ e Start: May 03, 2025 End: May 03, 2025 Team Status: Inactive Member Role/Relationship Status Slime Chi MD Primary care physician Active S tart: May 31, 2025 End: May 31, 2025 MARNI BOWSER Attending physician Active S tart: May 31, 2025 End: May 31, 2025 MARNI BOWSER Referring Provider Active St art: May 31, 2025 End: May 31, 2025 Team Status: Active Member Role/Relationship Status Slime Chi MD Primary care physician Active S tart: June 10, 2025 Cherelle Maher LPN Attending physician Active Start: June 10, 2025 Team Status: Inactive Member Role/Relationship Status Slime Chi MD Primary care physician Active S tart: June 15, 2025 End: June 15, 2025 Dr. Reta Siegel MD Attending physician Active S tart: June 15, 2025 End: June 15, 2025 Dr. Reta Siegel MD Referring Provider Active St art: June 15, 2025 End: June 15, 2025 Team Status: Inactive Member Role/Relationship Status Dates Dr. En Guerin DO Attending physician Active Start: June 17, 2025 End: June 17, 2025 Dr. Reta Siegel MD Referring Provider Active St art: June 17, 2025 End: June 17, 2025 Team Status: Inactive Member Role/Relationship Status Slime Chi MD Primary care physician Active S tart: June 21, 2025 End: June 21, 2025 Eloina Chi MD Referring Provider Active Start : June 21, 2025 End: June 21, 2025 Dr. Kalyn Ng MD Attending physician Active Start: June 21, 2025 End: June 21, 2025 Team Status: Inactive Member Role/Relationship Status Slime Chi MD Primary care physician Active S tart: June 22, 2025 End: June 22, 2025 Eloina Chi MD Referring Provider Active Start : June 22, 2025 End: June 22, 2025 Dr. Simone Collins MD Attending physician Active Start: June 22, 2025 End: June 22, 2025 Team Status: Active Member Role/Relationship Status Slime Chi MD Primary care physician Active S tart: June 22, 2025 Dr. En Guerin DO Attending physician Active Start: June 22, 2025 Team Status: Inactive Member Role/Relationship Status Slime Chi MD Primary care physician Active S tart: June 28, 2025 End: June 28, 2025 Eloina Chi MD Referring Provider Active Start : June 28, 2025 End: June 28, 2025 Jayashree Anderson CERAMIC TILE INSTALLATION HELPER, CERAMIC TILE INSTALLATION HELPER-C Attending physician Active Start: June 28, 2025 End: June 28, 2025 Team Status: Active Member Role/Relationship Status Slime Chi MD Primary care physician Active S tart: June 28, 2025 Dr. En Guerin DO Attending physician Active Start: June 28, 2025 Dr. En Guerin DO Referring Provider Active Start: June 28, 2025 Team Status: Active Member Role/Relationship Status Slime Chi MD Primary care physician Active S tart: June 29, 2025 Dr. En Guerin DO Attending physician Active Start: June 29, 2025 Team Status: Inactive Member Role/Relationship Status Slime Chi MD Primary care physician Active S tart: June 30, 2025 End: June 30, 2025 Dr. Kalyn Ng MD Attending physician Active Start: June 30, 2025 End: June 30, 2025 Dr. Kalyn Ng MD Referring Provider Active Start: June 30, 2025 End: June 30, 2025 Team Status: Active Member Role/Relationship Status Slime Chi MD Primary care physician Active S tart: June 30, 2025 Dr. Kalyn Ng MD Attending physician Active Start: June 30, 2025 Dr. Kalyn Ng MD Referring Provider Active Start: June 30, 2025 Dr. Kalyn Ng MD Nurse Practitioner Active Start: June 30, 2025 Team Status: Active Member Role/Relationship Status Slime Chi MD Primary care physician Active S tart: June 29, 2025 Dr. En Guerin DO Attending physician Active Start: June 29, 2025 Team Status: Inactive Member Role/Relationship Status Slime Chi MD Primary care physician Active S tart: June 30, 2025 End: June 30, 2025 Dr. Kalyn Ng MD Attending physician Active Start: June 30, 2025 End: June 30, 2025 Dr. Kalyn Ng MD Referring Provider Active Start: June 30, 2025 End: June 30, 2025 Team Status: Active Member Role/Relationship Status Slime Chi MD Primary care physician Active S tart: June 30, 2025 Dr. Kalyn Ng MD Attending physician Active Start: June 30, 2025 Dr. Kalyn Ng MD Referring Provider Active Start: June 30, 2025 Dr. Kalyn Ng MD Nurse Practitioner Active Start: June 30, 2025 Team Status: Inactive Member Role/Relationship Status Slime Chi MD Primary care physician Active S tart: July 05, 2025 End: July 05, 2025 Eloina Chi MD Referring Provider Active Start : July 05, 2025 End: July 05, 2025 Dr. Simone Collins MD Attending physician Active Start: July 05, 2025 End: July 05, 2025 Team Status: Inactive Member Role/Relationship Status Slime Chi MD Primary care physician Active S tart: July 07, 2025 End: July 07, 2025 Eloina Chi MD Referring Provider Active Start : July 07, 2025 End: July 07, 2025 Dr. En Guerin DO Attending physician Active Start: July 07, 2025 End: July 07, 2025 Team Status: Active Member Role/Relationship Status Slime Chi MD Primary care physician Active S tart: July 08, 2025 Dr. En Guerin DO Attending physician Active Start: July 08, 2025 Dr. En Guerin DO Referring Provider Active Start: July 08, 2025 Team Status: Inactive Member Role/Relationship Status Slime Chi MD Primary care physician Active S tart: July 12, 2025 End: July 12, 2025 Eloina Chi MD Referring Provider Active Start : July 12, 2025 End: July 12, 2025 Jayashree Anderson CERAMIC TILE INSTALLATION HELPER, CERAMIC TILE INSTALLATION HELPER-C Attending physician Active Start: July 12, 2025 End: July 12, 2025 Team Status: Active Member Role/Relationship Status Slime Chi MD Primary care physician Active S tart: July 12, 2025 Dr. En Guerin DO Attending physician Active Start: July 12, 2025 Dr. En Guerin DO Referring Provider Active Start: July 12, 2025 Team Status: Inactive Member Role/Relationship Status Slime Chi MD Primary care physician Active S tart: July 12, 2025 End: July 12, 2025 Eloina Chi MD Referring Provider Active Start : July 12, 2025 End: July 12, 2025 Elizabeth Sexton PA PALiliaC Attending physician Active Start: July 12, 2025 End: July 12, 2025 Team Status: Active Member Role/Relationship Status Slime Chi MD Primary care physician Active S tart: July 13, 2025 Dr. En Guerin DO Attending physician Active Start: July 13, 2025 Dr. En Guerin DO Referring Provider Active Start: July 13, 2025 Team Status: Active Member Role/Relationship Status Slime Chi MD Primary care physician Active S tart: July 14, 2025 Dr. En Guerin DO Attending physician Active Start: July 14, 2025 Team Status: Active Member Role/Relationship Status Slime Chi MD Primary care physician Active S tart: July 14, 2025 Dr. En Guerin DO Attending physician Active Start: July 14, 2025 Dr. En Guerin DO Referring Provider Active Start: July 14, 2025 Team Status: Inactive Member Role/Relationship Status Slime Chi MD Primary care physician Active S tart: July 14, 2025 End: July 14, 2025 Dr. En Guerin DO Attending physician Active Start: July 14, 2025 End: July 14, 2025 Team Status: Inactive Member Role/Relationship Status Slime Chi MD Primary care physician Active S tart: July 08, 2025 End: July 08, 2025 Dr. En Guerin DO Attending physician Active Start: July 08, 2025 End: July 08, 2025 Dr. En Guerin DO Referring Provider Active Start: July 08, 2025 End: July 08, 2025 Team Status: Inactive Member Role/Relationship Status Slime Chi MD Primary care physician Active S tart: July 19, 2025 End: July 19, 2025 Eloina Chi MD Referring Provider Active Start : July 19, 2025 End: July 19, 2025 Dr. Simone Collins MD Attending physician Active Start: July 19, 2025 End: July 19, 2025 Team Status: Active Member Role/Relationship Status Slime Chi MD Primary care physician Active S tart: July 19, 2025 Dr. En Guerin DO Attending physician Active Start: July 19, 2025 Dr. En Guerin DO Referring Provider Active Start: July 19, 2025 Team Status: Inactive Member Role/Relationship Status Slime Chi MD Primary care physician Active S tart: July 12, 2025 End: July 12, 2025 Eloina Chi MD Referring Provider Active Start : July 12, 2025 End: July 12, 2025 Elizabeth GARCIAS PA-C Attending physician Active Start: July 12, 2025 End: July 12, 2025 Team Status: Inactive Member Role/Relationship Status Slime Cih MD Primary care physician Active S tart: July 14, 2025 End: July 14, 2025 Dr. En Guerin DO Attending physician Active Start: July 14, 2025 End: July 14, 2025 Team Status: Inactive Member Role/Relationship Status Slime Chi MD Primary care physician Active S tart: July 19, 2025 End: July 19, 2025 Eloina Chi MD Referring Provider Active Start : July 19, 2025 End: July 19, 2025 Dr. Simone Collins MD Attending physician Active Start: July 19, 2025 End: July 19, 2025 Team Status: Active Member Role/Relationship Status Slime Chi MD Primary care physician Active S tart: July 20, 2025 Dr. En Guerin DO Attending physician Active Start: July 20, 2025 Dr. En Guerin DO Referring Provider Active Start: July 20, 2025 Team Status: Inactive Member Role/Relationship Status Slime Chi MD Primary care physician Active S tart: July 21, 2025 End: July 21, 2025 Dr. En Guerin DO Attending physician Active Start: July 21, 2025 End: July 21, 2025 Team Status: Active Member Role/Relationship Status Slime Chi MD Primary care physician Active S tart: July 21, 2025 Dr. En Guerin DO Attending physician Active Start: July 21, 2025 Dr. En Guerin DO Referring Provider Active Start: July 21, 2025 Team Status: Active Member Role/Relationship Status Slime Chi MD Primary care physician Active S tart: June 22, 2025 Dr. En Guerin DO Attending physician Active Start: June 22, 2025 Dr. En Guerin DO Referring Provider Active Start: June 22, 2025 Team Status: Active Member Role/Relationship Status Slime Chi MD Primary care physician Active S tart: June 29, 2025 Dr. nE Guerin DO Attending physician Active Start: June 29, 2025 Dr. En Guerin DO Referring Provider Active Start: June 29, 2025 Team Status: Inactive Member Role/Relationship Status Slime Chi MD Primary care physician Active S tart: July 21, 2025 End: July 21, 2025 Dr. En Guerin DO Attending physician Active Start: July 21, 2025 End: July 21, 2025 Team Status: Active Member Role/Relationship Status Slime Chi MD Primary care physician Active S tart: July 22, 2025 Dr. En Guerin DO Attending physician Active Start: July 22, 2025 Team Status: Inactive Member Role/Relationship Status Slime Chi MD Primary care physician Active S tart: July 26, 2025 End: July 26, 2025 Eloina Chi MD Referring Provider Active Start : July 26, 2025 End: July 26, 2025 Dr. Simone Collins MD Attending physician Active Start: July 26, 2025 End: July 26, 2025 Team Status: Active Member Role/Relationship Status Slime Chi MD Primary care physician Active S tart: July 26, 2025 Dr. En Guerin DO Attending physician Active Start: July 26, 2025 Team Status: Inactive Member Role/Relationship Status Dates Eloina Chi MD Primary care physician Active S tart: July 28, 2025 End: July 28, 2025 Eloina Chi MD Referring Provider Active Start : July 28, 2025 End: July 28, 2025 Dr. En Guerin DO Attending physician Active Start: July 28, 2025 End: July 28, 2025 Team Status: Active Member Role/Relationship Status Dates Eloina Chi MD Primary care physician Active S tart: July 29, 2025 Dr. En Guerin DO Attending physician Active Start: July 29, 2025 Dr. En Guerin DO Referring Provider Active Start: July 29, 2025 Team Status: Inactive Member Role/Relationship Status Dates Eloina Chi MD Primary care physician Active S tart: July 30, 2025 End: August 04, 2025 Dr. Trevor Nguyen MD Emergency Department Physician Active Start: July 30, 2025 End: August 04, 2025 Dr. Rain Gallagher MD Admitting physician Active Start: July 30, 2025 End: August 04, 2025 Dr. Rain Gallagher MD Nurse Practitioner Active Start: July 30, 2025 End: August 04, 2025 Dr. Dev Reardon MD Attending physician Active Start: July 30, 2025 End: August 04, 2025 Dr. Alan Galaviz MD Nurse Practitioner Active Start: July 30, 2025 End: August 04, 2025 Dr. Marco Carrero MD Nurse Practitioner Active Start: July 30, 2025 End: August 04, 2025 Dr. Vicente Schofield MD Nurse Practitioner Active Sta rt: July 30, 2025 End: August 04, 2025 Dr. Tez Obando MD Nurse Practitioner Active Start: July 30, 2025 End: August 04, 2025 Dr. Vaughn Garduno , Nurse Practitioner Active S tart: July 30, 2025 End: August 04, 2025 Dr. Jamarcus Vaz MD Nurse Practitioner Active Start: July 30, 2025 End: August 04, 2025 Dr. Marya Moss , Nurse Practitioner Active S tart: July 30, 2025 End: August 04, 2025 Dr. Sundar Reid MD Nurse Practitioner Active Start: July 30, 2025 End: August 04, 2025 Dr. Latasha Gutierrez MD Nurse Practitioner Active Start: July 30, 2025 End: August 04, 2025 Dr. James Bangura MD Nurse Practitioner Active Start: July 30, 2025 End: August 04, 2025 Dr. Debbie Frausto MD Nurse Practitioner Active Start: July 30, 2025 End: August 04, 2025 Dr. Pato Cerda MD Nurse Practitioner Active S tart: July 30, 2025 End: August 04, 2025 Dr. Smooth Fall MD Nurse Practitioner Active St art: July 30, 2025 End: August 04, 2025 Dr. Christelle Camejo MD Nurse Practitioner Active Start: July 30, 2025 End: August 04, 2025 Dr. Brian Mendoza MD Nurse Practitioner Active Start: July 30, 2025 End: August 04, 2025 Dr. Brady Pemberton MD Nurse Practitioner Active Start: July 30, 2025 End: August 04, 2025 Dr. Lamont Armenta MD Nurse Practitioner Active S tart: July 30, 2025 End: August 04, 2025 Dr. Alva Langford MD Nurse Practitioner Active Start: July 30, 2025 End: August 04, 2025 Dr. Pinky Santana MD Nurse Practitioner Active Start: July 30, 2025 End: August 04, 2025 Dr. Kathrine Cox MD Nurse Practitioner Active Start: July 30, 2025 End: August 04, 2025 Dr. Antonette Burroughs MD Nurse Practitioner Active Start: July 30, 2025 End: August 04, 2025 Dr. Jc South DO Nurse Practitioner Active Start: July 30, 2025 End: August 04, 2025 Dr. Johnathan Witt MD Nurse Practitioner Active St art: July 30, 2025 End: August 04, 2025 Dr. Iain Obrien MD Nurse Practitioner Active Start: July 30, 2025 End: August 04, 2025 Dr. eHather Velarde MD Nurse Practitioner Active Start: July 30, 2025 End: August 04, 2025 Dr. Elinor Cohn MD Nurse Practitioner Active Start: July 30, 2025 End: August 04, 2025 Dr. Kusum Avina , DO Nurse Practitioner Active Start: July 30, 2025 End: August 04, 2025 Dr. Iain Bone MD Nurse Practitioner Active Start: July 30, 2025 End: August 04, 2025 Dr. Brady Aldana , DO Nurse Practitioner Active Start: July 30, 2025 End: August 04, 2025 Dr. Omer Woods MD Nurse Practitioner Active Start: July 30, 2025 End: August 04, 2025 Dr. Efrem Tanner MD Nurse Practitioner Active Start: July 30, 2025 End: August 04, 2025 Dr. Hiral Carlin MD Nurse Practitioner Active Start: July End: August 04, 2025 Dr. Carlos June MD Nurse Practitioner Active Start: July 30, 2025 End: August 04, 2025 Dr. Beltran Cheatham , Nurse Practitioner Active Start: July 30, 2025 End: August 04, 2025 Dr. Marilee Orourke MD Nurse Practitioner Active St art: July 30, 2025 End: August 04, 2025 Dr. Marisol Mackey MD Nurse Practitioner Active Start: July 30, 2025 End: August 04, 2025 Dr. Zaira Henriquez MD Nurse Practitioner Active St art: July 30, 2025 End: August 04, 2025 Dr. Makeda Joyner MD Nurse Practitioner Active Start: July 30, 2025 End: August 04, 2025 Dr. Russell Leach , Nurse Practitioner Active Start: July 30, 2025 End: August 04, 2025 Dr. Ihsan Oliveira MD Nurse Practitioner Active S tart: July 30, 2025 End: August 04, 2025 Dr. Spenser Gavin MD Nurse Practitioner Active Start: July 30, 2025 End: August 04, 2025 Dr. Nelida Ortega MD Nurse Practitioner Active Start: July 30, 2025 End: August 04, 2025 Dr. Robert Kessler MD Nurse Practitioner Active Start: July 30, 2025 End: August 04, 2025 Dr. Jamarcus Tao MD Nurse Practitioner Active Start: July 30, 2025 End: August 04, 2025 Dr. Simoen Collins MD Nurse Practitioner Active S tart: July 30, 2025 End: August 04, 2025 Dr. Jonathan Curtis MD Nurse Practitioner Active Start: July 30, 2025 End: August 04, 2025 Dr. Maryjo Nichole MD Nurse Practitioner Active Start: July 30, 2025 End: August 04, 2025 Dr. Alan Childress MD Nurse Practitioner Active Start: July 30, 2025 End: August 04, 2025 Dr. Angel Mejia MD Nurse Practitioner Active Star t: July 30, 2025 End: August 04, 2025 Dr. Chester Sharpe MD Nurse Practitioner Active Start: July 30, 2025 End: August 04, 2025 Dr. En Guerin , Nurse Practitioner Active Start: July 30, 2025 End: August 04, 2025 Jayashree Anderson CERAMIC TILE INSTALLATION HELPER, CERAMIC TILE INSTALLATION HELPER-C Nurse Practitioner Active Start: July 30, 2025 End: August 04, 2025 Team Status: Active Member Role/Relationship Status Dates Eloina Chi MD Primary care physician Active S tart: July 31, 2025 Dr. Trevor Nguyen MD Emergency Department Physician Active Start: July 31, 2025 Dr. Rain Gallagher MD Admitting physician Active Start: July 31, 2025 Dr. Rain Gallagher MD Nurse Practitioner Active Start: July 31, 2025 Dr. Marco Carrero MD Nurse Practitioner Active Start: July 31, 2025 Dr. Vicente Schofield MD Nurse Practitioner Active Sta rt: July 31, 2025 Dr. Tez Obando MD Nurse Practitioner Active Start: July 31, 2025 Dr. Vaughn Garduno , Nurse Practitioner Active S tart: July 31, 2025 Dr. Jamarcus Vaz MD Nurse Practitioner Active Start: July 31, 2025 Dr. Marya Moss , DO Nurse Practitioner Active S tart: July 31, 2025 Dr. Sundar Reid MD Nurse Practitioner Active Start: July 31, 2025 Dr. Latasha Gutierrez MD Nurse Practitioner Active Start: July 31, 2025 Dr. James Bangura MD Nurse Practitioner Active Start: July 31, 2025 Dr. Debbie Frausto MD Nurse Practitioner Active Start: July 31, 2025 Dr. Pato Cerda MD Nurse Practitioner Active S tart: July 31, 2025 Dr. Smooth Fall MD Nurse Practitioner Active St art: July 31, 2025 Dr. Christelle Camejo MD Nurse Practitioner Active Start: July 31, 2025 Dr. Brian Mendoza MD Nurse Practitioner Active Start: July 31, 2025 Dr. Brady Pemberton MD Nurse Practitioner Active Start: July 31, 2025 Dr. Lamont Armenta MD Nurse Practitioner Active S tart: July 31, 2025 Dr. Alva Langford MD Nurse Practitioner Active Start: July 31, 2025 Dr. Pinky Santana MD Nurse Practitioner Active Start: July 31, 2025 Dr. Kathrine Cox MD Nurse Practitioner Active Start: July 31, 2025 Dr. Antonette Burroughs MD Nurse Practitioner Active Start: July 31, 2025 Dr. Jc South , DO Nurse Practitioner Active Start: July 31, 2025 Dr. Johnathan Witt MD Nurse Practitioner Active St art: July 31, 2025 Dr. Iain Obrien MD Nurse Practitioner Active Start: July 31, 2025 Dr. Heather Velarde MD Nurse Practitioner Active Start: July 31, 2025 Dr. Elinor Cohn MD Nurse Practitioner Active Start: July 31, 2025 Dr. Kusum Avina , Nurse Practitioner Active Start: July 31, 2025 Dr. Iain Bone MD Nurse Practitioner Active Start: July 31, 2025 Dr. Brady Aldana , Nurse Practitioner Active Start: July 31, 2025 Dr. Omer Woods MD Nurse Practitioner Active Start: July 31, 2025 Dr. Efrem Tanner MD Nurse Practitioner Active Start: July 31, 2025 Dr. Hiral Carlin MD Nurse Practitioner Active Start: July Dr. Carlos June MD Nurse Practitioner Active Start: July 31, 2025 Dr. Beltran Cheatham , DO Nurse Practitioner Active Start: July 31, 2025 Dr. Marilee Orourke MD Nurse Practitioner Active St art: July 31, 2025 Dr. Marisol Mackey MD Nurse Practitioner Active Start: July 31, 2025 Dr. Zaira Henriquez MD Nurse Practitioner Active St art: July 31, 2025 Dr. Makeda Joyner MD Nurse Practitioner Active Start: July 31, 2025 Dr. Russell Leach , Nurse Practitioner Active Start: July 31, 2025 Dr. Ihsan Oliveira MD Nurse Practitioner Active S tart: July 31, 2025 Dr. Spenser Gavin MD Nurse Practitioner Active Start: July 31, 2025 Dr. Nelida Ortega MD Nurse Practitioner Active Start: July 31, 2025 Dr. Robert Kessler MD Nurse Practitioner Active Start: July 31, 2025 Dr. Dev Reardon MD Attending physician Active Start: July 31, 2025 Dr. Dev Reardon MD Nurse Practitioner Active Start: July 31, 2025 Team Status: Active Member Role/Relationship Status Dates Eloina Chi MD Primary care physician Active S tart: August 01, 2025 Dr. Trevor Nguyen MD Emergency Department Physician Active Start: August 01, 2025 Dr. Rain Gallagher MD Admitting physician Active Start: August 01, 2025 Dr. Rain Gallagher MD Nurse Practitioner Active Start: August 01, 2025 Dr. Marco Carrero MD Nurse Practitioner Active Start: August 01, 2025 Dr. Vicente Schofield MD Nurse Practitioner Active Sta rt: August 01, 2025 Dr. Tez Obando MD Nurse Practitioner Active Start: August 01, 2025 Dr. Vaughn Garduno , Nurse Practitioner Active S tart: August 01, 2025 Dr. Jamarcus Vaz MD Nurse Practitioner Active Start: August 01, 2025 Dr. Marya Moss , Nurse Practitioner Active S tart: August 01, 2025 Dr. Sundar Reid MD Nurse Practitioner Active Start: August 01, 2025 Dr. Latasha Gutierrez MD Nurse Practitioner Active Start: August 01, 2025 Dr. James Bangura MD Nurse Practitioner Active Start: August 01, 2025 Dr. Debbie Frausto MD Nurse Practitioner Active Start: August 01, 2025 Dr. Pato Cerda MD Nurse Practitioner Active S tart: August 01, 2025 Dr. Smooth Fall MD Nurse Practitioner Active St art: August 01, 2025 Dr. Christelle Camejo MD Nurse Practitioner Active Start: August 01, 2025 Dr. Brian Mendoza MD Nurse Practitioner Active Start: August 01, 2025 Dr. Brady Pemberton MD Nurse Practitioner Active Start: August 01, 2025 Dr. Lamont Armenta MD Nurse Practitioner Active S tart: August 01, 2025 Dr. Alva Langford MD Nurse Practitioner Active Start: August 01, 2025 Dr. Pinky Santana MD Nurse Practitioner Active Start: August 01, 2025 Dr. Kathrine Cox MD Nurse Practitioner Active Start: August 01, 2025 Dr. Antonette Burroughs MD Nurse Practitioner Active Start: August 01, 2025 Dr. Jc South , DO Nurse Practitioner Active Start: August 01, 2025 Dr. Johnathan Witt MD Nurse Practitioner Active St art: August 01, 2025 Dr. Iain Obrien MD Nurse Practitioner Active Start: August 01, 2025 Dr. Heather Velarde MD Nurse Practitioner Active Start: August 01, 2025 Dr. Elinor Cohn MD Nurse Practitioner Active Start: August 01, 2025 Dr. Kusum Avina , DO Nurse Practitioner Active Start: August 01, 2025 Dr. Iain Bone MD Nurse Practitioner Active Start: August 01, 2025 Dr. Brady Aldana , Nurse Practitioner Active Start: August 01, 2025 Dr. Omer Woods MD Nurse Practitioner Active Start: August 01, 2025 Dr. Efrem Tanner MD Nurse Practitioner Active Start: August 01, 2025 Dr. Hiral Carlin MD Nurse Practitioner Active Start: July Dr. Carlos June MD Nurse Practitioner Active Start: August 01, 2025 Dr. Beltran Cheatham , DO Nurse Practitioner Active Start: August 01, 2025 Dr. Marilee Orourke MD Nurse Practitioner Active St art: August 01, 2025 Dr. Marisol Mackey MD Nurse Practitioner Active Start: August 01, 2025 Dr. Zaira Henriquez MD Nurse Practitioner Active St art: August 01, 2025 Dr. Makeda Joyner MD Nurse Practitioner Active Start: August 01, 2025 Dr. Russell Leach , Nurse Practitioner Active Start: August 01, 2025 Dr. Ihsan Oliveira MD Nurse Practitioner Active S tart: August 01, 2025 Dr. Spenser Gavin MD Nurse Practitioner Active Start: August 01, 2025 Dr. Nelida Ortega MD Nurse Practitioner Active Start: August 01, 2025 Dr. Robert Kessler MD Nurse Practitioner Active Start: August 01, 2025 Dr. Dev Reardon MD Attending physician Active Start: August 01, 2025 Dr. Dev Reardon MD Nurse Practitioner Active Start: August 01, 2025 Dr. Alan Galaviz MD Nurse Practitioner Active Start: August 01, 2025 Team Status: Active Member Role/Relationship Status Dates Eloina Chi MD Primary care physician Active S tart: August 02, 2025 Dr. Trevor Nguyen MD Emergency Department Physician Active Start: August 02, 2025 Dr. Rain Gallagher MD Admitting physician Active Start: August 02, 2025 Dr. Rain Gallagher MD Nurse Practitioner Active Start: August 02, 2025 Dr. Dev Reardon MD Attending physician Active Start: August 02, 2025 Dr. Dev Reardon MD Nurse Practitioner Active Start: August 02, 2025 Dr. Alan Galaviz MD Nurse Practitioner Active Start: August 02, 2025 Dr. Marco Carrero MD Nurse Practitioner Active Start: August 02, 2025 Dr. Vicente Schofield MD Nurse Practitioner Active Sta rt: August 02, 2025 Dr. Tez Obando MD Nurse Practitioner Active Start: August 02, 2025 Dr. Vaughn Garduno , DO Nurse Practitioner Active S tart: August 02, 2025 Dr. Jamarcus Vaz MD Nurse Practitioner Active Start: August 02, 2025 Dr. Marya Moss , DO Nurse Practitioner Active S tart: August 02, 2025 Dr. Sundar Reid MD Nurse Practitioner Active Start: August 02, 2025 Dr. Latasha Gutierrez MD Nurse Practitioner Active Start: August 02, 2025 Dr. James Bangura MD Nurse Practitioner Active Start: August 02, 2025 Dr. Debbie Frausto MD Nurse Practitioner Active Start: August 02, 2025 Dr. Pato Cerda MD Nurse Practitioner Active S tart: August 02, 2025 Dr. Smooth Fall MD Nurse Practitioner Active St art: August 02, 2025 Dr. Christelle Camejo MD Nurse Practitioner Active Start: August 02, 2025 Dr. Brian Mendoza MD Nurse Practitioner Active Start: August 02, 2025 Dr. Brady Pemberton MD Nurse Practitioner Active Start: August 02, 2025 Dr. Lamont Armenta MD Nurse Practitioner Active S tart: August 02, 2025 Dr. Alva Langford MD Nurse Practitioner Active Start: August 02, 2025 Dr. Pinky Santana MD Nurse Practitioner Active Start: August 02, 2025 Dr. Kathrine Cox MD Nurse Practitioner Active Start: August 02, 2025 Dr. Antonette Burroughs MD Nurse Practitioner Active Start: August 02, 2025 Dr. Jc South , Nurse Practitioner Active Start: August 02, 2025 Dr. Johnathan Witt MD Nurse Practitioner Active St art: August 02, 2025 Dr. Iain Obrien MD Nurse Practitioner Active Start: August 02, 2025 Dr. Heather Velarde MD Nurse Practitioner Active Start: August 02, 2025 Dr. Elinor Cohn MD Nurse Practitioner Active Start: August 02, 2025 Dr. Kusum Avina , Nurse Practitioner Active Start: August 02, 2025 Dr. Iain Bone MD Nurse Practitioner Active Start: August 02, 2025 Dr. Brady Aldana , Nurse Practitioner Active Start: August 02, 2025 Dr. Omer Woods MD Nurse Practitioner Active Start: August 02, 2025 Dr. Efrem Tanner MD Nurse Practitioner Active Start: August 02, 2025 Dr. Hiral Carlin MD Nurse Practitioner Active Start: July Dr. Carlos June MD Nurse Practitioner Active Start: August 02, 2025 Dr. Beltran Cheatham , Nurse Practitioner Active Start: August 02, 2025 Dr. Marilee Orourke MD Nurse Practitioner Active St art: August 02, 2025 Dr. Marisol Mackey MD Nurse Practitioner Active Start: August 02, 2025 Dr. Zaira Henriquez MD Nurse Practitioner Active St art: August 02, 2025 Dr. Makeda Joyner MD Nurse Practitioner Active Start: August 02, 2025 Dr. Russell Leach , Nurse Practitioner Active Start: August 02, 2025 Dr. Ihsan Oliveira MD Nurse Practitioner Active S tart: August 02, 2025 Dr. Spenser Gavin MD Nurse Practitioner Active Start: August 02, 2025 Dr. Nelida Ortega MD Nurse Practitioner Active Start: August 02, 2025 Dr. Robert Kessler MD Nurse Practitioner Active Start: August 02, 2025 Dr. Alan Childress MD Nurse Practitioner Active Start: August 02, 2025 Dr. Maryjo Nichole MD Nurse Practitioner Active Start: August 02, 2025 Dr. Angel Mejia MD Nurse Practitioner Active Star t: August 02, 2025 Dr. Jamarcus Tao MD Nurse Practitioner Active Start: August 02, 2025 Dr. Chester Sharpe MD Nurse Practitioner Active Start: August 02, 2025 Dr. Simone Collins MD Nurse Practitioner Active S tart: August 02, 2025 Jayashree Anderson CER[employer] TILE INSTALLATION HELPER, CERAMIC TILE INSTALLATION HELPER-C Nurse Practitioner Active Start: August 02, 2025 Dr. Jonathan Curtis MD Nurse Practitioner Active Start: August 02, 2025 Dr. En Guerin DO Nurse Practitioner Active Start: August 02, 2025 Team Status: Active Member Role/Relationship Status Dates Eloina Chi MD Primary care physician Active S tart: August 02, 2025 Dr. Trevor Nguyen MD Emergency Department Physician Active Start: August 02, 2025 Dr. Rain Gallagher MD Admitting physician Active Start: August 02, 2025 Dr. Rain Gallagher MD Nurse Practitioner Active Start: August 02, 2025 Dr. Dev Reardon MD Nurse Practitioner Active Start: August 02, 2025 Dr. Alan Galaviz MD Nurse Practitioner Active Start: August 02, 2025 Dr. Marco Carrero MD Nurse Practitioner Active Start: August 02, 2025 Dr. Vicente Schofield MD Nurse Practitioner Active Sta rt: August 02, 2025 Dr. Tez Obando MD Nurse Practitioner Active Start: August 02, 2025 Dr. Vaughn Garduno , DO Nurse Practitioner Active S tart: August 02, 2025 Dr. Jamarcus Vaz MD Nurse Practitioner Active Start: August 02, 2025 Dr. Marya Moss , DO Nurse Practitioner Active S tart: August 02, 2025 Dr. Sundar Reid MD Nurse Practitioner Active Start: August 02, 2025 Dr. Latasha Gutierrez MD Nurse Practitioner Active Start: August 02, 2025 Dr. James Bangura MD Nurse Practitioner Active Start: August 02, 2025 Dr. Debbie Frausto MD Nurse Practitioner Active Start: August 02, 2025 Dr. Pato Cerda MD Nurse Practitioner Active S tart: August 02, 2025 Dr. Smooth Fall MD Nurse Practitioner Active St art: August 02, 2025 Dr. Christelle Camejo MD Nurse Practitioner Active Start: August 02, 2025 Dr. Brian Mendoza MD Nurse Practitioner Active Start: August 02, 2025 Dr. Brady Pemberton MD Nurse Practitioner Active Start: August 02, 2025 Dr. Lamont Armenta MD Nurse Practitioner Active S tart: August 02, 2025 Dr. Alva Langford MD Nurse Practitioner Active Start: August 02, 2025 Dr. Pinky Santana MD Nurse Practitioner Active Start: August 02, 2025 Dr. Kathrine Cox MD Nurse Practitioner Active Start: August 02, 2025 Dr. Antonette Burroughs MD Nurse Practitioner Active Start: August 02, 2025 Dr. Jc South , Nurse Practitioner Active Start: August 02, 2025 Dr. Johnathan Witt MD Nurse Practitioner Active St art: August 02, 2025 Dr. Iain Obrien MD Nurse Practitioner Active Start: August 02, 2025 Dr. Heather Velarde MD Nurse Practitioner Active Start: August 02, 2025 Dr. Elinor Cohn MD Nurse Practitioner Active Start: August 02, 2025 Dr. Kusum Avina , DO Nurse Practitioner Active Start: August 02, 2025 Dr. Iain Bone MD Nurse Practitioner Active Start: August 02, 2025 Dr. Brady Aldana , DO Nurse Practitioner Active Start: August 02, 2025 Dr. Omer Woods MD Nurse Practitioner Active Start: August 02, 2025 Dr. Efrem Tanner MD Nurse Practitioner Active Start: August 02, 2025 Dr. Hiral Carlin MD Nurse Practitioner Active Start: July Dr. Carlos June MD Nurse Practitioner Active Start: August 02, 2025 Dr. Beltran Cheatham , Nurse Practitioner Active Start: August 02, 2025 Dr. Marilee Orourke MD Nurse Practitioner Active St art: August 02, 2025 Dr. Marisol Mackey MD Nurse Practitioner Active Start: August 02, 2025 Dr. Zaira Henriquez MD Nurse Practitioner Active St art: August 02, 2025 Dr. Makeda Joyner MD Nurse Practitioner Active Start: August 02, 2025 Dr. Russell Leach , Nurse Practitioner Active Start: August 02, 2025 Dr. Ihsan Oliveira MD Nurse Practitioner Active S tart: August 02, 2025 Dr. Spenser Gavin MD Nurse Practitioner Active Start: August 02, 2025 Dr. Nelida Ortega MD Nurse Practitioner Active Start: August 02, 2025 Dr. Robert Kessler MD Nurse Practitioner Active Start: August 02, 2025 Dr. Jamarcus Tao MD Nurse Practitioner Active Start: August 02, 2025 Dr. Simone Collins MD Attending physician Active Start: August 02, 2025 Dr. Simone Collins MD Nurse Practitioner Active S tart: August 02, 2025 Dr. Jonathan Curtis MD Nurse Practitioner Active Start: August 02, 2025 Dr. Maryjo Nichole MD Nurse Practitioner Active Start: August 02, 2025 Dr. Alan Childress MD Nurse Practitioner Active Start: August 02, 2025 Dr. Angel Mejia MD Nurse Practitioner Active Star t: August 02, 2025 Dr. Chester Sharpe MD Nurse Practitioner Active Start: August 02, 2025 Dr. En Guerin , DO Nurse Practitioner Active Start: August 02, 2025 Jayashree Anderson CER[employer] TILE INSTALLATION HELPER, CER[employer] TILE INSTALLATION HELPER-C Nurse Practitioner Active Start: August 02, 2025 Team Status: Active Member Role/Relationship Status Dates Eloina Chi MD Primary care physician Active S tart: August 03, 2025 Dr. Trevor Nguyen MD Emergency Department Physician Active Start: August 03, 2025 Dr. Rain Gallagher MD Admitting physician Active Start: August 03, 2025 Dr. Rain Gallagher MD Nurse Practitioner Active Start: August 03, 2025 Dr. Dev Reardon MD Attending physician Active Start: August 03, 2025 Dr. Dev Reardon MD Nurse Practitioner Active Start: August 03, 2025 Dr. Alan Galaviz MD Nurse Practitioner Active Start: August 03, 2025 Dr. Marco Carrero MD Nurse Practitioner Active Start: August 03, 2025 Dr. Vicente Schofield MD Nurse Practitioner Active Sta rt: August 03, 2025 Dr. Tez Obando MD Nurse Practitioner Active Start: August 03, 2025 Dr. Vaughn Garduno , DO Nurse Practitioner Active S tart: August 03, 2025 Dr. Jamarcus Vaz MD Nurse Practitioner Active Start: August 03, 2025 Dr. Marya Moss , DO Nurse Practitioner Active S tart: August 03, 2025 Dr. Sundar Reid MD Nurse Practitioner Active Start: August 03, 2025 Dr. Latasha Gutierrez MD Nurse Practitioner Active Start: August 03, 2025 Dr. James Bangura MD Nurse Practitioner Active Start: August 03, 2025 Dr. Debbie Frausto MD Nurse Practitioner Active Start: August 03, 2025 Dr. Pato Cerda MD Nurse Practitioner Active S tart: August 03, 2025 Dr. Smooth Fall MD Nurse Practitioner Active St art: August 03, 2025 Dr. Christelle Camejo MD Nurse Practitioner Active Start: August 03, 2025 Dr. Brian Mendoza MD Nurse Practitioner Active Start: August 03, 2025 Dr. Brady Pemberton MD Nurse Practitioner Active Start: August 03, 2025 Dr. Lamont Armenta MD Nurse Practitioner Active S tart: August 03, 2025 Dr. Alva Langford MD Nurse Practitioner Active Start: August 03, 2025 Dr. Pinky Santana MD Nurse Practitioner Active Start: August 03, 2025 Dr. Kathrine Cox MD Nurse Practitioner Active Start: August 03, 2025 Dr. Antonette Burroughs MD Nurse Practitioner Active Start: August 03, 2025 Dr. Jc South , DO Nurse Practitioner Active Start: August 03, 2025 Dr. Johnathan Witt MD Nurse Practitioner Active St art: August 03, 2025 Dr. Iain Obrien MD Nurse Practitioner Active Start: August 03, 2025 Dr. Heather Velarde MD Nurse Practitioner Active Start: August 03, 2025 Dr. Elinor Cohn MD Nurse Practitioner Active Start: August 03, 2025 Dr. Kusum Avina , DO Nurse Practitioner Active Start: August 03, 2025 Dr. Iain Bone MD Nurse Practitioner Active Start: August 03, 2025 Dr. Brady Aldana , DO Nurse Practitioner Active Start: August 03, 2025 Dr. Omer Woods MD Nurse Practitioner Active Start: August 03, 2025 Dr. Efrem Tanner MD Nurse Practitioner Active Start: August 03, 2025 Dr. Hiral Carlin MD Nurse Practitioner Active Start: July Dr. Carlos June MD Nurse Practitioner Active Start: August 03, 2025 Dr. Beltran Cheatham , DO Nurse Practitioner Active Start: August 03, 2025 Dr. Marilee Orourke MD Nurse Practitioner Active St art: August 03, 2025 Dr. Marisol Mackey MD Nurse Practitioner Active Start: August 03, 2025 Dr. Zaira Henirquez MD Nurse Practitioner Active St art: August 03, 2025 Dr. Makeda Joyner MD Nurse Practitioner Active Start: August 03, 2025 Dr. Russell Leach , DO Nurse Practitioner Active Start: August 03, 2025 Dr. Ihsan Oliveira MD Nurse Practitioner Active S tart: August 03, 2025 Dr. Spenser Gavin MD Nurse Practitioner Active Start: August 03, 2025 Dr. Nelida Ortega MD Nurse Practitioner Active Start: August 03, 2025 Dr. Robert Kessler MD Nurse Practitioner Active Start: August 03, 2025 Dr. Jamarcus Tao MD Nurse Practitioner Active Start: August 03, 2025 Dr. Simone Collins MD Nurse Practitioner Active S tart: August 03, 2025 Dr. Jonathan Curtis MD Nurse Practitioner Active Start: August 03, 2025 Dr. Maryjo Nichole MD Nurse Practitioner Active Start: August 03, 2025 Dr. Alan Childress MD Nurse Practitioner Active Start: August 03, 2025 Dr. Angel Mejia MD Nurse Practitioner Active Star t: August 03, 2025 Dr. Chester Sharpe MD Nurse Practitioner Active Start: August 03, 2025 Dr. En Guerin , Nurse Practitioner Active Start: August 03, 2025 Jayashree Anderson CER[employer]IC TILE INSTALLATION HELPER, CER[employer]IC TILE INSTALLATION HELPER-C Nurse Practitioner Active Start: August 03, 2025 Team Status: Active Member Role/Relationship Status Dates Eloina Chi MD Primary care physician Active S tart: August 04, 2025 Dr. Trevor Nguyen MD Emergency Department Physician Active Start: August 04, 2025 Dr. Rain Gallagher MD Admitting physician Active Start: August 04, 2025 Dr. Rain Gallagher MD Nurse Practitioner Active Start: August 04, 2025 Dr. Dev Reardon MD Attending physician Active Start: August 04, 2025 Dr. Dev Reardon MD Nurse Practitioner Active Start: August 04, 2025 Dr. Alan Galaviz MD Nurse Practitioner Active Start: August 04, 2025 Dr. Marco Carrero MD Nurse Practitioner Active Start: August 04, 2025 Dr. Vicente Schofield MD Nurse Practitioner Active Sta rt: August 04, 2025 Dr. Tez Obando MD Nurse Practitioner Active Start: August 04, 2025 Dr. Vaughn Garduno , Nurse Practitioner Active S tart: August 04, 2025 Dr. Jamarcus Vaz MD Nurse Practitioner Active Start: August 04, 2025 Dr. Marya Moss , Nurse Practitioner Active S tart: August 04, 2025 Dr. Sundar Reid MD Nurse Practitioner Active Start: August 04, 2025 Dr. Latasha Gutierrez MD Nurse Practitioner Active Start: August 04, 2025 Dr. James Bangura MD Nurse Practitioner Active Start: August 04, 2025 Dr. Debbie Frausto MD Nurse Practitioner Active Start: August 04, 2025 Dr. Pato Cerda MD Nurse Practitioner Active S tart: August 04, 2025 Dr. Smooth Fall MD Nurse Practitioner Active St art: August 04, 2025 Dr. Christelle Camejo MD Nurse Practitioner Active Start: August 04, 2025 Dr. Brian Mendoza MD Nurse Practitioner Active Start: August 04, 2025 Dr. Brady Pemberton MD Nurse Practitioner Active Start: August 04, 2025 Dr. Lamont Armenta MD Nurse Practitioner Active S tart: August 04, 2025 Dr. Alva Langford MD Nurse Practitioner Active Start: August 04, 2025 Dr. Pinky Santana MD Nurse Practitioner Active Start: August 04, 2025 Dr. Kathrine Cox MD Nurse Practitioner Active Start: August 04, 2025 Dr. Antonette Burroughs MD Nurse Practitioner Active Start: August 04, 2025 Dr. Jc South , DO Nurse Practitioner Active Start: August 04, 2025 Dr. Johnathan Witt MD Nurse Practitioner Active St art: August 04, 2025 Dr. Iain Obrien MD Nurse Practitioner Active Start: August 04, 2025 Dr. Heather Velarde MD Nurse Practitioner Active Start: August 04, 2025 Dr. Elinor Cohn MD Nurse Practitioner Active Start: August 04, 2025 Dr. Kusum Avina , Nurse Practitioner Active Start: August 04, 2025 Dr. Iain Bone MD Nurse Practitioner Active Start: August 04, 2025 Dr. Brady Aldana , Nurse Practitioner Active Start: August 04, 2025 Dr. Omer Woods MD Nurse Practitioner Active Start: August 04, 2025 Dr. Efrem Tanner MD Nurse Practitioner Active Start: August 04, 2025 Dr. Hiral Carlin MD Nurse Practitioner Active Start: July Dr. Carlos June MD Nurse Practitioner Active Start: August 04, 2025 Dr. Beltran Cheatham , Nurse Practitioner Active Start: August 04, 2025 Dr. Marilee Orourke MD Nurse Practitioner Active St art: August 04, 2025 Dr. Marisol Mackey MD Nurse Practitioner Active Start: August 04, 2025 Dr. Zaira Henriquez MD Nurse Practitioner Active St art: August 04, 2025 Dr. Makeda Joyner MD Nurse Practitioner Active Start: August 04, 2025 Dr. Russell Leach DO Nurse Practitioner Active Start: August 04, 2025 Dr. Ihsan Oliveira MD Nurse Practitioner Active S tart: August 04, 2025 Dr. Spenser Gavin MD Nurse Practitioner Active Start: August 04, 2025 Dr. Nelida Ortega MD Nurse Practitioner Active Start: August 04, 2025 Dr. Robert Kessler MD Nurse Practitioner Active Start: August 04, 2025 Dr. Jamarcus Tao MD Nurse Practitioner Active Start: August 04, 2025 Dr. Simone Collins MD Nurse Practitioner Active S tart: August 04, 2025 Dr. Jonathan Curtis MD Nurse Practitioner Active Start: August 04, 2025 Dr. Maryjo Nichole MD Nurse Practitioner Active Start: August 04, 2025 Dr. Alan Childress MD Nurse Practitioner Active Start: August 04, 2025 Dr. Angel Mejia MD Nurse Practitioner Active Star t: August 04, 2025 Dr. Chester Sharpe MD Nurse Practitioner Active Start: August 04, 2025 Dr. En Guerin DO Nurse Practitioner Active Start: August 04, 2025 Jayashree Anderson CER[employer]IC TILE INSTALLATION HELPER, CERAMIC TILE INSTALLATION HELPER-C Nurse Practitioner Active Start: August 04, 2025 Team Status: Inactive Member Role/Relationship Status Dates Eloina Chi MD Primary care physician Active S tart: August 04, 2025 End: August 04, 2025 Dr. En Guerin DO Attending physician Active Start: August 04, 2025 End: August 04, 2025 Team Status: Active Member Role/Relationship Status Dates Eloina Chi MD Primary care physician Active S tart: August 06, 2025 Dr. En Guerin DO Attending physician Active Start: August 06, 2025 Dr. En Truong , DO Referring Provider Active Start: August 06, 2025 Team Status: Active Member Role/Relationship Status Dates Eloina Chi MD Primary care physician Active S tart: August 07, 2025 Dr. Ariel Painter , DO Emergency Departm ent Physician Active Start: August 07, 2025 Dr. Jamarcus Moran , DO Admitting physician Active Start: August 07, 2025 Dr. Jamarcus Moran , DO Nurse Practitioner Active Start: August 07, 2025 Dr. Jamarcus Mercedes MD Attending physician Active Start: August 07, 2025 Dr. Ariel Sadler , DO Nurse Practitioner Active Start: August 07, 2025 Team Status: Active Member Role/Relationship Status Dates Eloina Chi MD Primary care physician Active S tart: August 08, 2025 Dr. Ariel Painter , DO Emergency Departm ent Physician Active Start: August 08, 2025 Dr. Jamarcus Moran , DO Admitting physician Active Start: August 08, 2025 Dr. Jamarcus Moran , DO Nurse Practitioner Active Start: August 08, 2025 Dr. Ariel Sadler , DO Attending physician Active Start: August 08, 2025 Dr. Ariel Sadler , DO Nurse Practitioner Active Start: August 08, 2025 Team Status: Active Member Role/Relationship Status Dates Eloina Chi MD Primary care physician Active S tart: August 09, 2025 Dr. Ariel Painter , DO Emergency Departm ent Physician Active Start: August 09, 2025 Dr. Jamarcus Moran , DO Admitting physician Active Start: August 09, 2025 Dr. Jamarcus Moran , DO Nurse Practitioner Active Start: August 09, 2025 Dr. Jamarcus Mercedes MD Attending physician Active Start: August 09, 2025 Dr. Jamarcus Mercedes MD Nurse Practitioner Active Start: August 09, 2025 Dr. Ariel Sadler , DO Nurse Practitioner Active Start: August 09, 2025 Team Status: Active Member Role/Relationship Status Dates Eloina Chi MD Primary care physician Active S tart: August 10, 2025 Dr. Ariel Painter , DO Emergency Departm ent Physician Active Start: August 10, 2025 Dr. Jamarcus Moran , DO Admitting physician Active Start: August 10, 2025 Dr. Jamarcus Moran DO Nurse Practitioner Active Start: August 10, 2025 Dr. Jamarcus Mercedes MD Attending physician Active Start: August 10, 2025 Dr. Jamarcus Mercedes MD Nurse Practitioner Active Start: August 10, 2025 Dr. Ariel Sadler DO Nurse Practitioner Active Start: August 10, 2025 Team Status: Inactive Member Role/Relationship Status Slime Chi MD Primary care physician Active S tart: July 07, 2025 End: July 07, 2025 Dr. En Guerin DO Attending physician Active Start: July 07, 2025 End: July 07, 2025 Dr. En Guerin , Referring Provider Active Start: July 07, 2025 End: July 07, 2025 Team Status: Inactive Member Role/Relationship Status Slime Chi MD Primary care physician Active S tart: August 07, 2025 End: August 10, 2025 Dr. Ariel Painter , DO Emergency Departm ent Physician Active Start: August 07, 2025 End: August 10, 2025 Dr. Jamarcus Moran , DO Admitting physician Active Start: August 07, 2025 End: August 10, 2025 Dr. Jamarcus Moran , Nurse Practitioner Active Start: August 07, 2025 End: August 10, 2025 Dr. Jamarcus Mercedes MD Attending physician Active Start: August 07, 2025 End: August 10, 2025 Dr. Ariel Sadler DO Nurse Practitioner Active Start: August 07, 2025 End: August 10, 2025 Team Status: Active Member Role/Relationship Status Slime Chi MD Primary care physician Active S tart: August 08, 2025 Dr. Ariel Painter , DO Emergency Departm ent Physician Active Start: August 08, 2025 Dr. Jamarcus Moran DO Admitting physician Active Start: August 08, 2025 Dr. Jamarcus Moran DO Nurse Practitioner Active Start: August 08, 2025 Dr. Ariel Sadler DO Attending physician Active Start: August 08, 2025 Dr. Ariel Sadler DO Nurse Practitioner Active Start: August 08, 2025 Team Status: Active Member Role/Relationship Status Slime Chi MD Primary care physician Active S tart: August 09, 2025 Dr. Ariel Painter , DO Emergency Departm ent Physician Active Start: August 09, 2025 Dr. Jamarcus Moran , Admitting physician Active Start: August 09, 2025 Dr. Jamarcus Moran DO Nurse Practitioner Active Start: August 09, 2025 Dr. Jamarcus Mercedes MD Attending physician Active Start: August 09, 2025 Dr. Jamarcus Mercedes MD Nurse Practitioner Active Start: August 09, 2025 Dr. Ariel Sadler DO Nurse Practitioner Active Start: August 09, 2025 Team Status: Active Member Role/Relationship Status Slime Chi MD Primary care physician Active S tart: August 10, 2025 Dr. Ariel Painter , DO Emergency Departm ent Physician Active Start: August 10, 2025 Dr. Jamarcus Moran DO Admitting physician Active Start: August 10, 2025 Dr. Jamarcus Moran DO Nurse Practitioner Active Start: August 10, 2025 Dr. Jamarcus Mercedes MD Attending physician Active Start: August 10, 2025 Dr. Jamarcus Mercedes MD Nurse Practitioner Active Start: August 10, 2025 Dr. Ariel Sadler DO Nurse Practitioner Active Start: August 10, 2025 Team Status: Inactive Member Role/Relationship Status Slime Chi MD Primary care physician Active S tart: August 11, 2025 End: August 11, 2025 Eloina Chi MD Referring Provider Active Start : August 11, 2025 End: August 11, 2025 Dr. En Guerin DO Attending physician Active Start: August 11, 2025 End: August 11, 2025 Team Status: Active Member Role/Relationship Status Slime Chi MD Primary care physician Active S tart: August 12, 2025 Dr. En Guerin DO Attending physician Active Start: August 12, 2025 Dr. En Guerin DO Referring Provider Active Start: August 12, 2025 Team Status: Active Member Role/Relationship Status Slime Chi MD Primary care physician Active S tart: August 18, 2025 Dr. En Guerin DO Attending physician Active Start: August 18, 2025 Team Status: Inactive Member Role/Relationship Status Slime Chi MD Primary care physician Active S tart: August 18, 2025 End: August 18, 2025 Dr. En Guerin DO Attending physician Active Start: August 18, 2025 End: August 18, 2025 Team Status: Active Member Role/Relationship Status Dates Eloina Chi MD Primary care physician Active S tart: August 18, 2025 Dr. En Guerin DO Attending physician Active Start: August 18, 2025 Dr. En Guerin DO Referring Provider Active Start: August 18, 2025 Goals (unrecognized section and content) Goals [...] or prosecute any alcohol or drug abuse patient.[facility] HospitalIn the event this information is protected by the Federal Confidentiality of Alcohol and Drug Abuse Patient Records regulations: The Federal rules restrict any use of the information to criminally investigate or prosecute any alcohol or drug abuse patient.[facility] HospitalIn the event this information is protected by the Federal Confidentiality of Alcohol and Drug Abuse Patient Records regulations: The Federal rules restrict any use of the information to criminally investigate or prosecute any alcohol or drug abuse patient.[facility] HospitalIn the event this information is protected by the Federal Confidentiality of Alcohol and Drug Abuse Patient Records regulations: The Federal rules restrict any use of the information to criminally investigate or prosecute any alcohol or drug abuse patient.[facility] HospitalIn the event this information is protected by the Federal Confidentiality of Alcohol and Drug Abuse Patient Records regulations: The Federal rules restrict any use of the information to criminally investigate or prosecute any alcohol or drug abuse patient.[facility] HospitalIn the event this information is protected by the Federal Confidentiality of Alcohol and Drug Abuse Patient Records regulations: The Federal rules restrict any use of the information to criminally investigate or prosecute any alcohol or drug abuse patient.[facility] HospitalIn the event this information is protected by the Federal Confidentiality of Alcohol and Drug Abuse Patient Records regulations: The Federal rules restrict any use of the information to criminally investigate or prosecute any alcohol or drug abuse patient.[facility] HospitalIn the event this information is protected by the Federal Confidentiality of Alcohol and Drug Abuse Patient Records regulations: The Federal rules restrict any use of the information to criminally investigate or prosecute any alcohol or drug abuse patient.[facility] HospitalIn the event this information is protected by the Federal Confidentiality of Alcohol and Drug Abuse Patient Records regulations: The Federal rules restrict any use of the information to criminally investigate or prosecute any alcohol or drug abuse patient.[facility] HospitalIn the event this information is protected by the Federal Confidentiality of Alcohol and Drug Abuse Patient Records regulations: The Federal rules restrict any use of the information to criminally investigate or prosecute any alcohol or drug abuse patient.[facility] HospitalIn the event this information is protected by the Federal Confidentiality of Alcohol and Drug Abuse Patient Records regulations: The Federal rules restrict any use of the information to criminally investigate or prosecute any alcohol or drug abuse patient.[facility] HospitalIn the event this information is protected by the Federal Confidentiality of Alcohol and Drug Abuse Patient Records regulations: The Federal rules restrict any use of the information to criminally investigate or prosecute any alcohol or drug abuse patient.[facility] Reason for Visit (unrecogniz ed section and content) Reason Comments New Patient Parkinson's Disease Reason Comments Follow Up Parkinson's Disease Reason Comments Parkinsons Disease Specialty Diagnoses / Procedures Referred By Americo melton Referred To Contact Diagnoses Parkinson's disease without dyskinesia, with fluctuating manifestations (HCC) Procedures PROVIDER ORDERED FOLLOW UP OFFICE/OUTPATIENT [facility] 60 MINUTES Amisha Sarabia MD [address] [place] [address] Referral ID Status Reason Start Date Expiration Date V isits Requested Visits Authorized [id number] Closed PCP Requested Referral 12/19/2023 03/18/2024 1 [...] PROVIDER ORDERED FOLLOW UP OFFICE/OUTPATIENT [facility] 60 MINUTES Amisha Sarabia MD [address] [place] [address] Phone: tel: fax: Referral ID Status Reason Start Date Expiration Date V isits Requested Visits Authorized [id number] Closed PCP Requested Referral 03/22/2025 09/21/2025 1 1 Reason Comments Orders Reason Comments New patient, to establish relationship Reason Comments oropharyngeal SCCa Reason Comments Patient Update (unrecognized sect ion and content) No Status Records FoundNo Status Records FoundNo Status Records Found INFORMATION SOURCE (unrecogn ized section and content) DATE CREATED AUTHOR 06/13/2025 [employer] DATE CREATED AUTHOR AUTHOR'S ORGANIZ ATION 07/21/2025 [facility] DATE CREATED AUTHOR AUTHOR'S ORGANIZ ATION 08/22/2025 [facility] FOR RECORDS PERTAINING TO PATIENTS WHO [...] BE BASED ON THE PRIMARY CLINICAL RECORDS. [employer] [facility]. provides no warranty or guarantee of the accuracy or completeness of information in this document.
== END | disposition home or self-care (01) ==
LOC: LABSPEC 15:35
PROVIDERS: PCP Family Medicine; Referring Provider Family Medicine; Visit Provider Family Medicine
DX: D64.9 Anemia, unspecified (principal); E03.9 Hypothyroidism, unspecified
CPT/HCPCS: 84443; 85027

== ENCOUNTER 2025-09-28 16:01 | Emergency (ER) | payer MEDICARE, SELFPAY ==
[2025-09-28 16:03] VITALS: BP 125/76; PULSE 113; RESP 18; TEMP 36.7; O2SAT 97; BMI 23.9
[2025-09-28 20:03] VITALS: PULSE 88; RESP 18
--- NOTE | 2025-09-28 22:22 | EDS_ITS ---
HPI History of Present Illness Chief Complaint: Male Pain/Injury PFSH [facility] Medical History Encounter for education Wears glasses Cancer Alcohol use History of steroid therapy Thyroid disease Uses wheelchair Arthritis Prostate disease Low iron DVT (deep venous thrombosis) Back pain Migraine headache Parkinson's disease Orthostatic hypotension Syncope Dietary restriction History of diverticulitis Gastric reflux Chronic cough Former smoker History of pain when walking History of stress test History of echocardiogram Cardiology follow-up encounter Celiac disease Home Medications ?Medication ?Instructions ?Recorded ?Last Taken ?Type levothyroxine 50 mcg tablet 50 mcg PO QDAY thyroid 06/30/25 History omeprazole 40 mg capsule,delayed 40 mg PO QDAY gerd 06/30/25 History release prucalopride 2 mg tablet 2 mg PO DAILY 05/09/2406/30 History (Motegrity) carbidopa ER 25 mg-levodopa 100 mg 1 tab PO .qid parki nson 06/10/25 06/30/25 History tablet,extended release fludrocortisone 0.1 mg tablet 0.1 mg PO QDAY low bp 06/30/25 History lidocaine-prilocaine 2.5 %-2.5 % 1 applic topical ONCE PRN port 06/28/25 Unknown Rx topical cream access 30 days #30 grams ondansetron 8 mg disintegrating 8 mg PO Q8H PRN nausea and 06/28/25 Unknown Rx tablet vomiting #30 tabs MAGIC MOUTH WASH (BMX) 180 mL 15 ml PO .qid PRN pain # 180 mL 07/07/25 Unknown Rx suspension sodium chloride 1,000 mg soluble 1,000 mg PO QD-QID DE N electrolyte 07/26/25 Unknown Rx tablet replenishment #30 tabs guaifenesin 100 mg/5 mL oral 200 mg (10 mL) PO Q4H PRN 07/28/25 Unknown Rx liquid (Guaifed (guaifenesin)) congestion #500 mL L.acidophil,salivari-Bifido 1 cap G-tube TID probiotic #0 caps 08/04/25 Unknown Rx bifidum-Strep thermoph 175 mg capsule apixaban 5 mg (74 tabs) tablets in 5 mg PO BID blood t hinner #74 tabs 08/04/25 Unknown Rx a dose pack (Eliquis DVT-PE Treat 30D Start) chlorhexidine gluconate 0.12 % 15 ml PO TID 12 weeks # 1,893 mL 08/04/25 Unknown Rx mouthwash lactose-reduced food with fiber 240 ml G-tube 5X/DAY n utrition #0 08/04/25 Un known Rx 0.06 gram-1.5 kcal/mL oral liquid mL (Jevity 1.5 Federico) potassium chloride 20 mEq/15 mL 40 meq (30 mL) G-tube BID 1 week 08/04/25 Unknown Rx oral liquid #420 mL sennosides 8.6 mg-docusate sodium 2 tab G-tube BID lax ative #0 tabs 08/04/25 Unknown Rx 50 mg tablet (Stimulant Laxative Plus) sodium chloride 0.65 % nasal spray 1 spray NASAL TID P RN PRN NASAL 08/10/25 Unknown Rx aerosol (Deep Sea Nasal) DRYNESS #0 mL finasteride 5 mg tablet 5 mg PO QDAY 09/02/25 Unknow n History Allergy/AdvReac Type Severity Reaction Status Date / Time gluten Allergy Abd Verified 09/28/25 16:04 cramps/diarrhea aripiprazole AdvReac unknown Verified 09/28/25 16:04 haloperidol AdvReac unknown Verified 09/28/25 16:04 metoclopramide AdvReac unknown Verified 09/28/25 16:04 olanzapine AdvReac unknown Verified 09/28/25 16:04 prochlorperazine AdvReac unknown Verified 09/28/25 16:04 promethazine AdvReac unknown Verified 09/28/25 16:04 Family History Brother Cancer THROAT Mother Leukemia Sister Breast cancer Surgical History Hx of right cataract extraction Hx of left cataract extraction Hx of eye surgery History of hydrocelectomy Hx of hernia repair Hx of colonoscopy Social History household members: significant other housing: house current occupational status: retired Smoking Status: Former smoker alcohol intake: never substance use type: does not use EXAM Physical Exam Const Vital Signs: 09/28/25 16:03 Temperature 98.1 F Temperature Source Oral Pulse Rate 113 H Respiratory Rate 18 Blood Pressure 125/76 H Blood Pressure Mean 92 Pulse Ox 97 Oxygen Delivery Method Room Air [facility] [place] Narrative Medical decision making narrative: HISTORY OF PRESENT ILLNESS: Chief complaint: Groin bruise 80-year-old male history of DVT on Eliquis, squamous of carcinoma, status post PEG tube, GERD, the history is provided by the patient's . She states patient had some discoloration in his groin that they want to get checked out. No fevers. No testicular pain. No trouble urinating. No abdominal pain. No flank pain. No history of trauma. REVIEW OF SYSTEMS: Pertinent positives: Thigh bruise/groin bruise Pertinent negatives: As per HPI PHYSICAL EXAM: Nursing triage notes reviewed, Vital signs reviewed Constitutional: please see [facility] HENT: MMM Eyes: Pupils equal round and reactive to light, Extraocular muscles intact Neck: No stridor, no JVD, full neck ROM Lungs: Clear to auscultation, No wheezing or rales. No increased work of breathing, no conversational dyspnea, no accessory muscle use, no nasal flaring. No respiratory distress noted Heart: Regular rate and rhythm, No murmurs, No rubs and No gallops, 2+ distal pulses (radial, femoral, posterior tibial) in all extremities Abdomen: Soft, there is no tenderness, rigidity, rebound or guarding, no obvious peritoneal signs, no palpable pulsatile abdominal masses, no auscultated abdominal bruit : No CVAT Extremities: No edema Neuro: No new focal neurological deficits, cranial nerves II through XII intact, 5/5 strength in all present extremities. Intact sensation to light touch in all present extremities, 2+ reflexes bilateral patella tendons. Skin: Intertriginous changes noted in the left groin, slight redness. No crepitus or bullae. No purulent drainage. No tenderness to palpation. No lymphadenopathy palpated. MEDICAL DECISION MAKING: Chief Complaint: please see [facility] External records reviewed: Reviewed prior ED visit Factors affecting care: as per HPI Social determinants of health: none History obtained from others: none Consults: none [facility] Narrative: The patient was initially tachycardic otherwise hemodynamically stable afebrile nontoxic-appearing. Exam consistent with possibly early tinea cruris otherwise nonspecific irritation. Exam was not consistent with cellulitis, abscess, Chavo's gangrene, necrotizing fasciitis. Exam consistent with ecchymosis/early tinea cruris Recommended barrier cream and if symptoms progressed to include itching and additional irritation to add an antifungal cream. Patient expressed understanding. Strict return precautions were discussed. PCP follow-up encouraged The patient and/or family, caregivers express understanding. The patient and/or family, caregivers agrees with the plan. Shared decision making: I will have a discussion with the patient and or visitors regarding risk/benefits of further testing or admission. They will be made aware of of the risk/benefits inherent in this decision they will be given the opportunity to voice understanding. Total critical care time today provided was at least 0 minutes. This excludes separately billable procedures. Critical care time (if documented) is secondary to the patient having high probability of clinically significant/life threatening deterioration in the patient's condition which required my urgent intervention. Impression: 1. Groin rash 2. Tinea cruris Dispo: Discharge home This note was generated with [employer] dictation software. It may contain incorrect words, spelling, and punctuation that were not noted in review of the chart prior to signing. Discharge Plan Triage Chief Complaint: Male Pain/Injury ED Provider: Pancho Davidson Dx/Rx/DC Orders Instructions: ED TinBlayne Ocampo Itch Prescriptions: No Action levothyroxine 50 mcg tablet 50 mcg PO QDAY omeprazole 40 mg capsule,delayed release(DR/EC) 40 mg PO QDAY carbidopa-levodopa 25-100 mg tablet extended release 1 tab PO .qid fludrocortisone 0.1 mg tablet 0.1 mg PO QDAY ondansetron 8 mg tablet,disintegrating 8 mg PO Q8H PRN (Reason: nausea and vomiting) Qty: 30 1RF lidocaine-prilocaine 2.5-2.5 % cream 1 applic topical ONCE PRN (Reason: port access) 30 Days Qty: 30 2RF sodium chloride 1,000 mg tablet,soluble 1,000 mg PO QD-QID PRN (Reason: electrolyte replenishment) Qty: 30 2RF MAGIC MOUTH WASH (BMX) 180 mL suspension 15 ml PO .qid PRN (Reason: pain) Qty: 180 5RF Rx Instructions: diphenhydramine 12.5 mg/5 mL oral liquid 60 mL; aluminum-mag hydroxide- simethicone 400 mg-400 mg-40 mg/5 mL oral susp 60 mL; Lidocaine Viscous 2 % mucosal solution 60 mL; Per 180 mL guaifenesin [Guaifed (guaifenesin)] 100 mg/5 mL liquid 200 mg PO Q4H PRN (Reason: congestion) Qty: 500 3RF Rx Instructions: take 10 mL q4 hrs prn congestion finasteride 5 mg tablet 5 mg PO QDAY Deep Sea Nasal 0.65 % Aerosol,[place] 1 spray NASAL TID PRN PRN (Reason: NASAL DRYNESS) Qty: 0 0RF prucalopride [Motegrity] 2 mg tablet 2 mg PO DAILY chlorhexidine gluconate 0.12 % Mouthwash 15 ml PO TID 84 Days Qty: 1893 0RF potassium chloride 20 mEq/15 mL Liquid 40 meq G-tube BID 7 Days Qty: 420 0RF L.acidoph,saliva-B.bif-S.therm 175 mg Capsule 1 cap G-tube TID Qty: 0 0RF Rx Instructions: for 2 weeks Jevity 1.5 Federico 0.06 gram-1.5 kcal/mL Liquid 240 ml G-tube 5X/DAY Qty: 0 0RF sennosides-docusate sodium [Stimulant Laxative Plus] 8.6-50 mg Tablet 2 tab G-tube BID Qty: 0 0RF Eliquis DVT-PE Treat 30D Start 5 mg (74 tabs) tablets,dose pack 5 mg PO BID Qty: 74 0RF Rx Instructions: 10 mg (2 tabs) twice daily for 7 days till 08/11/25 and then 1 tab twice daily to continue Primary Care Provider: Eloina Chi Referrals: Eloina Chi MD [Primary Care Provider, Family Practice] Activity Restrictions/Additional Instructions: Thank you for trusting us with your care today! Please monitor the area of redness to your groin. If it continues to worsen, become irritated, itchy, become painful please begin [id number] topical antifungal cream/powder Please return to the emergency department if your symptoms change or worsen. Please follow with your primary care physician for further outpatient evaluation and management. Print Language: Argentine Disposition Disposition: Home, Self Care
--- OUTSIDE RECORDS SUMMARY | 2025-09-28 22:49 | XMS RPT_ITS | CCD ---
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 Kiran [...] Provider Eloina Chi MD Primary Care Provider [phone] Eloina Chi MD Referring Provider Carlos Dennis MD Attending Provider Eloina Chi MD Primary Care Provider Ariel Black Attending Provider Neto GARCIAS Ariel Referring Provider Dr. Anusha Ward MD Attending Provider Dr. Anusha Ward MD Referring Provider ARIES REDDY Attending Provider ARIES REDDY Referring Provider Unavailable Primary Care Provider Unavailabl e ARIES REDDY Attending Provider ARIES REDDY Referring Provider Eloina Chi MD Primary Care Provider [phone] Ariel Black Attending Provider [place] Ariel GARCIAS Referring Provider ARIES REDDY Attending [...] Kalyn Ng MD Attending Provider Dr. Simone Clolins MD Attending Provider Dr. En Guerin DO Referring Provider Justin ALVARENGA-CJayashree Attending Provider Dr. En Guerin DO Referring Provider Eloina Chi MD Primary Care Physician [phone] Anusha Ward MD Attending Physician ARIES REDDY Attending Physician Cherelle Maher LPN Attending Physician Unavaila Dr. Reta Ceballos MD Attending Physician Dr. En Guerin DO Attending Physician Dr. [...] maxwell Siegel MD, Dr. Lemon Attending Physician Dr. Reta Siegel MD Referring Provider Dr. nE Guerin DO Attending Physician Eloina Chi MD [...] HARDEN, Dr. Rain Tijerina Admitting Physician [phone] Aileen HARDEN, Dr. Rain Tijerina Nurse Practitioner Alexys HARDEN, Dr. Méndez Attending Physician Anastacia HARDEN, Dr. Phillips Nurse Practitioner [phone] Alise HARDEN, Dr. Lara Nurse Practitioner Kanwal [...] Juan David HARDEN, Dr. Rebollar Nurse Practitioner [phone] Nell HARDEN, Dr. Christelle Plata Nurse Practitioner [...] Woods MD, Dr. Tello Nurse Practitioner [phone] Ciro HARDEN, Dr. Topete Nurse Practitioner Raegan HARDEN, Dr. Hiral Clay Nurse Practit stefanie June MD, Dr. Gonzalez Nurse Practitioner [phone] Linden DO, Dr. Gong Nurse Practitioner Haven HARDEN, Dr. Hunt Nurse Practitioner Narendra HARDEN, Dr. Damon Nurse Practitioner Martinez HARDEN, Dr. Meneses Nurse Practitioner Unavailabl ori Joyner MD, Dr. Ashford Nurse Practitioner Unavaila maxwell Leach DO, Dr. Wells Nurse Practitioner [phone] Roxanne HARDEN, Dr. Champagne Nurse Practitioner Unavailab [...] Truong MORLEY, Dr. Gatica Nurse Practitioner Justin LANDSCAPE MANAGER-C, Jayashree Nurse Practitioner Alexys HARDEN, Dr. Méndez Nurse Practitioner Dr. Ariel Painter DO Emergency Department Physi lena Moran DO, Dr. Ricketts Admitting Physician Camila vailable Moran DO, Dr. Ricketts Nurse Practitioner Unav ailable Daren HARDEN, Dr. Ricketts Attending Physician Unavail able Viktoriya MORLEY, Dr. George Nurse Practitioner [phone] Viktoriya MORLEY, Dr. George Attending Physician [...] Care Unavailable Lula, Chalon Referring Unavailable Justin LANDSCAPE MANAGER, Jayashree Attending Unavailable Lula, Chalon Primary Care Unavailable En Guerin Attending Unavailable En Guerin Referring Unavailable Lula, Chalon Primary Care Unavailable Simone Collins Attending Unavailable Lula, Chalon Referring Unavailable Lula, Chalon Referring Unavailable Lula, Chalon Primary Care Unavailable Hubert LANDSCAPE MANAGER, Ranulfo Juarez Attending Unavailable Koram, Rain Lilliana [...] Beltran Consulting Unavailable Orourke, Sujoy Consulting Unavailable [place], Soleyah Consulting Unavailable Hegab, Zaira Consulting Unavailable [...] Consulting Unavailable En Guerin Consulting Unavailable Justin LANDSCAPE MANAGER, Jayashree Consulting Unavailable Alexys, Dev Consulting Unavailable [...] Care Unavailable Lula, Chalon Referring Unavailable Justin LANDSCAPE MANAGER, Jayashree Attending Unavailable Lula, Chalon Primary Care [...] REDDY Attending Physician ARIES REDDY Referring Provider [phone] Cherelle Maher LPN Attending Physician Unavaila maxwell Siegel MD, Dr. Lemon Attending Physician Robbin HARDEN, Dr. Lemon Referring Provider Truong [...] available Willem HARDEN, Dr. Ramirez Nurse Practitioner [phone] Lisbet HARDEN, Dr. Lewis Nurse Practitioner Prashant HARDEN, Dr. Whyte Nurse Practitioner [phone] Juan David HARDEN, Dr. Rebollar Nurse Practitioner [phone] Nell HARDEN, Dr. Christelle Plata Nurse Practitioner Bang Mendoza MD, Dr. Torres Nurse Practitioner Vanessa Pemberton MD, Dr. Brady Clay Nurse Practitioner Bang Armenta MD, Dr. Miguel Nurse Practitioner [phone] Primitivo HARDEN, Dr. Calle Nurse Practitioner Neha Santana MD, Dr. Vance Nurse Practitioner [phone] Brooke HARDEN, Dr. Chisholm Nurse Practitioner Benedicto Burroughs MD, Dr. Whitman Nurse Practitioner Shayan South DO, Dr. Greene Nurse Practitioner Vanessa Witt MD, Dr. Mann Nurse Practitioner Saumya Obrien MD, Dr. Timmons Nurse Practitioner Shayan Velarde MD, Dr. Romero Nurse Practitioner [phone] Lalit HARDEN, Dr. Elinor Zimmerman Nurse Practitioner U adrian Avina DO, Dr. Noe Nurse Practitioner Unavail mohan Bone MD, Dr. Timmons Nurse Practitioner Bang Aldana DO, Dr. Abreu Nurse Practitioner Neha Woods MD, Dr. Tello Nurse Practitioner [phone] Ciro HARDEN, Dr. Topete Nurse Practitioner Raegan HARDEN, Dr. Hiral Clay Nurse Practit stefanie June MD, Dr. Gonzalez Nurse Practitioner [phone] Linden DO, Dr. Gong Nurse Practitioner Haven HARDEN, Dr. Hunt Nurse Practitioner [phone] Narendra HARDEN, Dr. Damon Nurse Practitioner Martinez HARDEN, Dr. Meneses Nurse Practitioner Saumya Joyner MD, Dr. Ashford Nurse Practitioner Raquel Leach DO, Dr. Wells Nurse Practitioner [phone] Roxanne HARDEN, Dr. Champagne Nurse Practitioner Unavailab johanny Gavin MD, Dr. Dueñas Nurse Practitioner Jordan HARDEN, Dr. Krause Nurse Practitioner Checo HARDEN, Dr. Jones Nurse Practitioner Aislinn HARDEN, Dr. Ricketts Nurse Practitioner Karina HARDEN, Dr. Nichols Nurse Practitioner Kirsten HARDEN, Dr. Castillo Nurse Practitioner Unavaila ble Dionisio HARDEN, Dr. Sibley Nurse Practitioner Field HAREDN, Dr. Phillips Nurse Practitioner Roberto HARDEN, Dr. Ortiz Nurse Practitioner Unavailable Annemarie HARDEN, Dr. Briggs Nurse Practitioner Truong MORLEY, Dr. Gatica Nurse Practitioner Justin LANDSCAPE MANAGER-C, Jayashree Nurse Practitioner Alexys HARDEN, Dr. Méndez [...] Drug Allergy 12-27-19 25 Other: See Comments [facility] (20 sources) ARIPiprazole; Translations: [ARIPIPRAZOLE] Drug Allergy 04-08-20 Contraindicati on-Medical Surgical [facility] (20 sources) Haloperidol; Translations: [HALOPERIDOL] Drug Allergy 04-08-20 Contraindicati on-Medical Surgical [facility] (20 sources) Metoclopramide; Translations: [METOCLOPRAMIDE] Drug Allergy 04-08-20 Contraindicati on-Medical Surgical [facility] (20 sources) OLANZapine; Translations: [OLANZAPINE] Drug Allergy 04-08-20 Contraindicati on-Medical Surgical [facility] (20 sources) Prochlorperazine; Translations: [PROCHLORPERAZINE] Drug Allergy 04-08-20 Contraindicati on-Medical [facility] (20 sources) Promethazine; Translations: [PROMETHAZINE] Drug Allergy 04-08-20 Contraindicati on-Medical [facility] (8 sources) Gluten; Translations: [GLUTEN MEAL] Propensity to adverse reactions to drug 12-27-19 [facility] (7 sources) OLANZapine Drug Allergy 04-08-20 [facility] (1 source) ARIPiprazole Drug Allergy 08-18-20 [facility] (1 source) Gluten Drug allergy (disorder) 08-18-20 [facility] (1 source) Haloperidol Drug Allergy 08-18-20 [facility] (1 source) Metoclopramide Drug Allergy 08-18-20 [facility] (1 source) OLANZapine Drug Allergy 08-18-20 [facility] (1 source) Prochlorperazine Drug Allergy 08-18-20 [facility] (1 source) Promethazine Drug Allergy 08-18-20 [facility] Medications Current Medications Medication Drug [...] docusate sodium 50 mg / alejandra osides, half-way 8.6 mg oral tablet (6 sources) Start: [...] on above: Take 1 capsule by mo [facility] once daily. ondansetron 8 mg disintegrating [...] Start: 09-20-2023 take 1 capsule by mo [facility] every twelve hours tamsulosin (FLOMAX) 0.4 mg Take 1 capsule by mouth every 12 hours. 09/20/2023 Active Comment on above: Take 1 capsule by mo [facility] every 12 hours. (20 sources) Start: [...] Comment on above: [facility] bisacodyl 10 mg rectal [...] Start: 05-28-2025 End: 05-28-2025 lidocaine-EPINEPHrine (XYLOCAINE) 1 %-1:349338 injection SOLN Start: 05-28-2025 End: 05-28-2025 2 mL, Injection, ONCE, 1 dos e, On Sat05/28/25 at 1430 Start: 05-28-2025 End: 05-28-2025 lidocaine-EPINEPHrine (XYLOC LAURY) 1 %-1:394378 injection SOLN Start: 05-28-2025 End: 05-28-2025 2 mL, Injection, ONCE, 1 dos e, On Sat05/28/25 at 1430 Start: 05-28-2025 End: 05-28-2025 lidocaine-EPINEPHrine (XYLOC LAURY) 1 %-1:875706 injection SOLN Start: 05-28-2025 End: 05-28-2025 2 [...] Comment on above: Take 1 capsule by [facility] every afternoon. 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) use of anticoagulants] Onset: 5 Episodic [...] Visiton 1 10-18-2024 Radiation Oncology Visit Normal [facility] Radiation Oncology Visit Normal [facility] Basic Metabolic Profile (BMP )on 08-12-2025 BUN Normal 01-30 [facility] Comment on above: Result Comment: Canc elled via OM: Order cancelled - Patient discharged Performed By: #### L 500.2500, L100.0100 ####[facility] [address] [place], [place], [id number] BUN/CRE Normal 08-02 [facility] Comment on above: Result Comment: Canc elled via OM: Order cancelled - Patient discharged Performed By: #### L 500.2500, L100.0100 ####[facility] [address] [place], [address] Calcium Normal 7.6-11.0 [facility] Comment on above: Result Comment: Canc elled via OM: Order cancelled - Patient discharged Performed By: #### L 500.2500, L100.0100 ####[facility] [address] [place], [address] CL Normal 98-108 [facility] Comment on above: Result Comment: Canc elled via OM: Order cancelled - Patient discharged Performed By: #### L 500.2500, L100.0100 ####[facility] [address] [place], [address] CO2 Normal 21.0-32.0 [facility] Comment on above: Result Comment: Canc elled via OM: Order cancelled - Patient discharged Performed By: #### L 500.2500, L100.0100 ####[facility] [address] [place], [address] CREAT,SERUM Normal 0.70-1.20 [facility] Comment on above: Result Comment: Canc elled via OM: Order cancelled - Patient discharged Performed By: #### L 500.2500, L100.0100 ####[facility] [address] [place], [address] eGFR Normal >60 [facility] Comment on above: Result Comment: Canc elled via OM: Order cancelled - Patient discharged Performed By: #### L 500.2500, L100.0100 ####[facility] [address] [place], [address] GAP Normal 5-15 [facility] Comment on above: Result Comment: Canc elled via OM: Order cancelled - Patient discharged Performed By: #### L 500.2500, L100.0100 ####[facility] [address] [place], [address] GLU Normal 70-99 [facility] Comment on above: Result Comment: Canc elled via OM: Order cancelled - Patient discharged Performed By: #### L 500.2500, L100.0100 ####[facility] [address] [place], [address] Potassium Normal 3.3-5.1 [facility] Comment on above: Result Comment: Canc elled via OM: Order cancelled - Patient discharged Performed By: #### L 500.2500, L100.0100 ####[facility] [address] [place], [address] Basic Metabolic Profile (BMP) Normal 133-145 [facility] Comment on above: Result Comment: Canc elled via OM: Order cancelled - Patient discharged Performed By: #### L 500.2500, L100.0100 ####[facility] [address] [place], [address] CBC W/Diff, Automatedon 10-3 0-2024 Absolute Neut Normal 2.0-7.7 [facility] Comment on above: Result Comment: Canc elled via OM: Order cancelled - Patient discharged Performed By: #### L 500.2500, L100.0100 ####[facility] [address] [place], [address] HCT Normal 40-54 [facility] Comment on above: Result Comment: Canc elled via OM: Order cancelled - Patient discharged Performed By: #### L 500.2500, L100.0100 ####[facility] [address] [place], [address] HGB Normal 13.0-16.5 [facility] Comment on above: Result Comment: Canc elled via OM: Order cancelled - Patient discharged Performed By: #### L 500.2500, L100.0100 ####[facility] [address] [place], [address] MCH Normal 27.0-32.0 [facility] Comment on above: Result Comment: Canc elled via OM: Order cancelled - Patient discharged Performed By: #### L 500.2500, L100.0100 ####[facility] [address] [place], [address] MCHC Normal 32-36 [facility] Comment on above: Result Comment: Canc elled via OM: Order cancelled - Patient discharged Performed By: #### L 500.2500, L100.0100 ####[facility] [address] [place], [address] MCV Normal 80-94 [facility] Comment on above: Result Comment: Canc elled via OM: Order cancelled - Patient discharged Performed By: #### L 500.2500, L100.0100 ####[facility] [address] [place], [address] NEUT% Normal 47-70 [facility] Comment on above: Result Comment: Canc elled via OM: Order cancelled - Patient discharged Performed By: #### L 500.2500, L100.0100 ####[facility] [address] [place], [address] PLT Normal 150-450 [facility] Comment on above: Result Comment: Canc elled via OM: Order cancelled - Patient discharged Performed By: #### L 500.2500, L100.0100 ####[facility] [address] [place], [address] RBC Normal 4.6-6.2 [facility] Comment on above: Result Comment: Canc elled via OM: Order cancelled - Patient discharged Performed By: #### L 500.2500, L100.0100 ####[facility] [address] [place], [address] RDW CV Normal 11.6-14.6 [facility] Comment on above: Result Comment: Canc elled via OM: Order cancelled - Patient discharged Performed By: #### L 500.2500, L100.0100 ####[facility] [address] [place], [address] RDW SD Normal 35.1-43.9 [facility] Comment on above: Result Comment: Canc elled via OM: Order cancelled - Patient discharged Performed By: #### L 500.2500, L100.0100 ####[facility] [address] [place], [address] WBC Normal 4.4-11.0 [facility] Comment on above: Result Comment: Canc elled via OM: Order cancelled - Patient discharged Performed By: #### L 500.2500, L100.0100 ####[facility] [address] [place], [address] Culture, Blood (WB)on 2024 CUB Blood cultures x2, f rom two different sites No growth in 5 days. Normal [facility] Comment on above: Performed By: #### M 200.1000 ####[facility] [address] [place], [address] Basic Metabolic Profile (BMP )on 08-11-2025 BUN Normal 4-19 [facility] Comment on above: Result Comment: Canc elled via OM: Order cancelled - Patient discharged Performed By: #### L 100.0100, L500.2500 ####[facility] [address] [place], [address] BUN/CRE Normal 10-20 [facility] Comment on above: Result Comment: Canc elled via OM: Order cancelled - Patient discharged Performed By: #### L 100.0100, L500.2500 ####[facility] [address] [place], [address] Calcium Normal 7.6-11.0 [facility] Comment on above: Result Comment: Canc elled via OM: Order cancelled - Patient discharged Performed By: #### L 100.0100, L500.2500 ####[facility] [address] [place], [address] CL Normal 98-108 [facility] Comment on above: Result Comment: Canc elled via OM: Order cancelled - Patient discharged Performed By: #### L 100.0100, L500.2500 ####[facility] [address] [place], [address] CO2 Normal 21.0-32.0 [facility] Comment on above: Result Comment: Canc elled via OM: Order cancelled - Patient discharged Performed By: #### L 100.0100, L500.2500 ####[facility] [address] [place], [address] CREAT,SERUM Normal 0.70-1.20 [facility] Comment on above: Result Comment: Canc elled via OM: Order cancelled - Patient discharged Performed By: #### L 100.0100, L500.2500 ####[facility] [address] [place], [address] eGFR Normal >60 [facility] Comment on above: Result Comment: Canc elled via OM: Order cancelled - Patient discharged Performed By: #### L 100.0100, L500.2500 ####[facility] [address] [place], [address] GAP Normal 5-15 [facility] Comment on above: Result Comment: Canc elled via OM: Order cancelled - Patient discharged Performed By: #### L 100.0100, L500.2500 ####[facility] [address] [place], [address] GLU Normal 70-99 [facility] Comment on above: Result Comment: Canc elled via OM: Order cancelled - Patient discharged Performed By: #### L 100.0100, L500.2500 ####[facility] [address] [place], [address] Potassium Normal 3.3-5.1 [facility] Comment on above: Result Comment: Canc elled via OM: Order cancelled - Patient discharged Performed By: #### L 100.0100, L500.2500 ####[facility] [address] [place], [address] Basic Metabolic Profile (BMP) Normal 133-145 [facility] Comment on above: Result Comment: Canc elled via OM: Order cancelled - Patient discharged Performed By: #### L 100.0100, L500.2500 ####[facility] [address] [place], [address] CBC W/Diff, Automatedon 10-2 Absolute Neut Normal 2.0-7.7 [facility] Comment on above: Result Comment: Canc elled via OM: Order cancelled - Patient discharged Performed By: #### L 100.0100, L500.2500 ####[facility] [address] [place], [address] HCT Normal 40-54 [facility] Comment on above: Result Comment: Canc elled via OM: Order cancelled - Patient discharged Performed By: #### L 100.0100, L500.2500 ####[facility] [address] [place], [address] HGB Normal 13.0-16.5 [facility] Comment on above: Result Comment: Canc elled via OM: Order cancelled - Patient discharged Performed By: #### L 100.0100, L500.2500 ####[facility] [address] [place], [address] MCH Normal 27.0-32.0 [facility] Comment on above: Result Comment: Canc elled via OM: Order cancelled - Patient discharged Performed By: #### L 100.0100, L500.2500 ####[facility] [address] [place], [address] MCHC Normal 32-36 [facility] Comment on above: Result Comment: Canc elled via OM: Order cancelled - Patient discharged Performed By: #### L 100.0100, L500.2500 ####[facility] [address] [place], [address] MCV Normal 80-94 [facility] Comment on above: Result Comment: Canc elled via OM: Order cancelled - Patient discharged Performed By: #### L 100.0100, L500.2500 ####[facility] [address] [place], [address] NEUT% Normal 47-70 [facility] Comment on above: Result Comment: Canc elled via OM: Order cancelled - Patient discharged Performed By: #### L 100.0100, L500.2500 ####[facility] [address] [place], [address] PLT Normal 150-450 [facility] Comment on above: Result Comment: Canc elled via OM: Order cancelled - Patient discharged Performed By: #### L 100.0100, L500.2500 ####[facility] [address] [place], [address] RBC Normal 4.6-6.2 [facility] Comment on above: Result Comment: Canc elled via OM: Order cancelled - Patient discharged Performed By: #### L 100.0100, L500.2500 ####[facility] [address] [place], [address] RDW CV Normal 11.6-14.6 [facility] Comment on above: Result Comment: Canc elled via OM: Order cancelled - Patient discharged Performed By: #### L 100.0100, L500.2500 ####[facility] [address] [place], [address] RDW SD Normal 35.1-43.9 [facility] Comment on above: Result Comment: Canc elled via OM: Order cancelled - Patient discharged Performed By: #### L 100.0100, L500.2500 ####[facility] [address] [place], [address] WBC Normal 4.4-11.0 [facility] Comment on above: Result Comment: Canc elled via OM: Order cancelled - Patient discharged Performed By: #### L 100.0100, L500.2500 ####[facility] [address] [place], [address] Radiation Oncology Visiton 1 Radiation Oncology Visit Normal [facility] Absolute lymphocyte countOrd ered By: Jamarcus Mercedes on 08-10-2025 Lymphocytes Auto (Unsp spec) [#/Vol] 1.27 10*3/uL 0.83-4.51 [facility] Anion gap in Serum or Plasma Ordered By: Jamarcus Mercedes on 08-10-2025 Anion gap [Moles/Vol] 9 mmol/L 02-25 [facility] Automated lymphocyte count a s percentage of total leukocytesOrdered By: Jamarcus Mercedes on 08-10-2025 Lymphocytes/100 WBC Auto (Unsp spec) 34.4 % [facility] BUN/creatinine ratioOrdered By: Jamarcus Mercedes on 08-10-2025 Urea nitrogen/Creatinine [Mass ratio] 18.3 mg/mg 08-02 [facility] Basic Metabolic Profile (BMP )on 08-10-2025 BUN/CRE 18.3 RATIO Normal 08-02 [facility] Comment on above: Performed By: #### L 501.5200, L500.2500, L100.0100, L501.2300 ####[facility] [address] [place], [address] Calcium [Mass/Vol] 7.9 mg/dL Normal 7.6-11.0 [facility] Comment on above: Performed By: #### L 501.5200, L500.2500, L100.0100, L501.2300 ####[facility] [address] [place], [address] Chloride [Moles/Vol] 106 mmol/L Normal 98-108 [facility] Comment on above: Performed By: #### L 501.5200, L500.2500, L100.0100, L501.2300 ####[facility] [address] [place], [address] CO2 [Moles/Vol] 23.0 mmol/L Normal 21.0-32.0 [facility] Comment on above: Performed By: #### L 501.5200, L500.2500, L100.0100, L501.2300 ####[facility] [address] [place], [address] Creatinine [Mass/Vol] 0.75 mg/dL Normal 0.70-1.20 [facility] Comment on above: Performed By: #### L 501.5200, L500.2500, L100.0100, L501.2300 ####[facility] [address] [place], [address] ECRCL 70.06 ml/min Normal 50-250 [facility] Comment on above: Performed By: #### L 501.5200, L500.2500, L100.0100, L501.2300 ####[facility] [address] [place], [address] GAP 9 Normal 5-15 [facility] Comment on above: Performed By: #### L 501.5200, L500.2500, L100.0100, L501.2300 ####[facility] [address] [place], [address] GFR/1.73 sq M.predicted among non-blacks MDRD (S/P/Bld) [Vol rate/Area] 91 mL/min/{1.73_m2} Normal >60 [facility] Comment on above: Result Comment: mL/m in/1.73m2 CKD-EPI Creatinine Equation (2020) Performed By: #### L 501.5200, L500.2500, L100.0100, L501.2300 ####[facility] [address] [place], [address] Glucose [Mass/Vol] 116 mg/dL High 70-99 [facility] Comment on above: Performed By: #### L 501.5200, L500.2500, L100.0100, L501.2300 ####[facility] [address] [place], [address] Potassium [Moles/Vol] 4.0 mmol/L Normal 3.3-5.1 [facility] Comment on above: Performed By: #### L 501.5200, L500.2500, L100.0100, L501.2300 ####[facility] [address] [place], [address] Sodium [Moles/Vol] 138 mmol/L Normal 133-145 [facility] Comment on above: Performed By: #### L 501.5200, L500.2500, L100.0100, L501.2300 ####[facility] [address] [place], [address] Urea nitrogen [Mass/Vol] 14 mg/dL Normal 4-19 [facility] Comment on above: Performed By: #### L 501.5200, L500.2500, L100.0100, L501.2300 ####[facility] [address] [place], [address] Basophil percentageOrdered B y: Jamarcus Mercedes on 08-10-2025 Basophils/100 WBC (Bld) 1.1 % High 0-1 [facility] CBC W/Diff, Automatedon 10-2 Absolute Lymph 1.27 X10 3/uL Normal 0.83-4.51 [facility] Comment on above: Performed By: #### L 501.5200, L500.2500, L100.0100, L501.2300 ####[facility] [address] [place], [address] Absolute Neut 1.9 X10 3/uL Low 2.0-7.7 [facility] Comment on above: Performed By: #### L 501.5200, L500.2500, L100.0100, L501.2300 ####[facility] [address] [place], [address] Basophils/100 WBC (Bld) 1.1 % High 0-1 [facility] Comment on above: Performed By: #### L 501.5200, L500.2500, L100.0100, L501.2300 ####[facility] [address] [place], [address] Eosinophils/100 WBC (Bld) 1.9 % Normal 0-5 [facility] Comment on above: Performed By: #### L 501.5200, L500.2500, L100.0100, L501.2300 ####[facility] [address] [place], [address] Erythrocyte distribution width (RBC) [Ratio] 15.0 % High 11.6-14.6 [facility] Comment on above: Performed By: #### L 501.5200, L500.2500, L100.0100, L501.2300 ####[facility] [address] [place], [address] Hematocrit (Bld) [Volume fraction] 29.1 % Low 40-54 [facility] Comment on above: Performed By: #### L 501.5200, L500.2500, L100.0100, L501.2300 ####[facility] [address] [place], [address] Hemoglobin (Bld) [Mass/Vol] 9.8 g/dL Low 13.0-16.5 [facility] Comment on above: Performed By: #### L 501.5200, L500.2500, L100.0100, L501.2300 ####[facility] [address] [place], [address] IG% 1.100 High 0.0-0.9 [facility] Comment on above: Result Comment: IG% - Immature Granulocytes (promyelocytes, myelocytes andmetamyelocytes) > 1% indicates that a LEFT SHIFT is Present. Performed By: #### L 501.5200, L500.2500, L100.0100, L501.2300 ####[facility] [address] [place], [address] Lymphocytes/100 WBC (Bld) 34.4 % Normal 19-41 [facility] Comment on above: Performed By: #### L 501.5200, L500.2500, L100.0100, L501.2300 ####[facility] [address] [place], [address] MCH (RBC) [Entitic mass] 29.8 pg Normal 27.0-32.0 [facility] Comment on above: Performed By: #### L 501.5200, L500.2500, L100.0100, L501.2300 ####[facility] [address] [place], [address] MCHC (RBC) [Mass/Vol] 33.7 g/dL Normal 32-36 [facility] Comment on above: Performed By: #### L 501.5200, L500.2500, L100.0100, L501.2300 ####[facility] [address] [place], [address] MCV (RBC) [Entitic vol] 88.4 fL Normal 80-94 [facility] Comment on above: Performed By: #### L 501.5200, L500.2500, L100.0100, L501.2300 ####[facility] [address] [place], [address] Monocytes/100 WBC (Bld) 11.4 % High 0-10 [facility] Comment on above: Performed By: #### L 501.5200, L500.2500, L100.0100, L501.2300 ####[facility] [address] [place], [address] Neutrophils/100 WBC (Bld) 50.1 % Normal 47-70 [facility] Comment on above: Performed By: #### L 501.5200, L500.2500, L100.0100, L501.2300 ####[facility] [address] [place], [address] Nucleated RBC (Bld) [#/Vol] 0 10*3/uL Normal 0-5 [facility] Comment on above: Performed By: #### L 501.5200, L500.2500, L100.0100, L501.2300 ####[facility] [address] [place], [address] Platelet mean volume (Bld) [Entitic vol] 9.9 fL Normal 6.2-12.0 [facility] Comment on above: Performed By: #### L 501.5200, L500.2500, L100.0100, L501.2300 ####[facility] [address] [place], [address] Platelets (Bld) [#/Vol] 238 10*3/uL Normal 150-450 [facility] Comment on above: Performed By: #### L 501.5200, L500.2500, L100.0100, L501.2300 ####[facility] [address] [place], [address] RBC (Bld) [#/Vol] 3.29 10*6/uL Low 4.6-6.2 [facility] Comment on above: Performed By: #### L 501.5200, L500.2500, L100.0100, L501.2300 ####[facility] [address] [place], [address] RDW SD 47.0 fl High 35.1-43.9 [facility] Comment on above: Performed By: #### L 501.5200, L500.2500, L100.0100, L501.2300 ####[facility] [address] [place], [address] WBC (Bld) [#/Vol] 3.7 10*3/uL Low 4.4-11.0 [facility] Comment on above: Performed By: #### L 501.5200, L500.2500, L100.0100, L501.2300 ####[facility] [address] [place], [address] Carbon dioxide, total [Moles /volume] in Central venous bloodOrdered By: Jamarcus Mercedes on 08-10-2025 CO2 [Moles/Vol] 23.0 mmol/L 21.0-32.0 [facility] Chloride assayOrdered By: Roshan Mercedes on 08-10-2025 Chloride [Moles/Vol] 106 mmol/L 98-108 [facility] Eosinophil percentageOrdered By: Jamarcus Mercedes on 08-10-2025 Eosinophils/100 WBC (Bld) 1.9 % 0-5 [facility] Erythrocyte distribution wid th ratioOrdered By: Jamarcus Mercedes on 08-10-2025 Erythrocyte distribution width (RBC) [Ratio] 15.0 % High 11.6-14.6 [facility] Erythrocyte distribution wid th standard deviationOrdered By: Jamarcus Mercedes on 08-10-2025 Erythrocyte distribution width (RBC) [Ratio] 47.0 fl High 35.1-43.9 [facility] Glomerular filtration rate ( GFR) estimation/1.73 sq m using serum, plasma, or whole bOrdered By: Jamarcus Mercedes on 08-10-2025 GFR/1.73 sq M.predicted among non-blacks MDRD (S/P/Bld) [Vol rate/Area] 91 mL/min/{1.73_m2} >60 [facility] Hematocrit Auto (Bld) [Volum e fraction]Ordered By: Jamarcus Mercedes on 08-10-2025 Hematocrit (Bld) [Volume fraction] 29.1 % Low 40-54 [facility] Hemoglobin measurementOrdere d By: Jamarcus Mercedes on 08-10-2025 Hemoglobin (Bld) [Mass/Vol] 9.8 g/dL Low 13.0-16.5 [facility] Immature granulocytes/100 WB C Auto (Bld)Ordered By: Jamarcus Mercedes on 08-10-2025 Immature granulocytes/100 WBC (Bld) 1.100 % High 0.0-0.9 [facility] MCV (mean corpuscular volume ) determinationOrdered By: Jamarcus Mercedes on 08-10-2025 MCV (RBC) [Entitic vol] 88.4 fL 80-94 [facility] Magnesiumon 08-10-2025 Magnesium [Mass/Vol] 2.0 mg/dL Normal 1.5-2.2 [facility] Comment on above: Performed By: #### L 501.5200, L500.2500, L100.0100, L501.2300 ####[facility] [address] [place], [address] Magnesium measurement (mass/ volume)Ordered By: Jamarcus Mercedes on 08-10-2025 Magnesium (Unsp spec) [Mass/Vol] 2.0 mg/dL 1.5-2.2 [facility] Mean corpuscular hemoglobin (MCH) determinationOrdered By: Jamarcus Mercedes on 08-10-2025 MCH (RBC) [Entitic mass] 29.8 pg 27.0-32.0 [facility] Monocyte percentageOrdered B y: Jamarcus Mercedes on 08-10-2025 Monocytes/100 WBC (Bld) 11.4 % High 0-10 [facility] Neutrophil percentageOrdered By: Jamarcus Mercedes on 08-10-2025 Neutrophils/100 WBC (Bld) 50.1 % 47-70 [facility] Phosphoruson 08-10-2025 Phosphate [Mass/Vol] 3.0 mg/dL Normal 2.7-4.5 [facility] Comment on above: Performed By: #### L 501.5200, L500.2500, L100.0100, L501.2300 ####[facility] [address] [place], [address] Platelet countOrdered By: Roshan Mercedes on 08-10-2025 Platelets (Bld) [#/Vol] 238 10*3/uL 150-450 [facility] Potassium measurement (mass/ volume)Ordered By: Jamarcus Mercedes on 08-10-2025 Potassium (Unsp spec) [Mass/Vol] 4.0 mmol/L 3.3-5.1 [facility] RBC Auto (Bld) [#/Vol]Ordere d By: Jamarcus Mercedes on 08-10-2025 RBC (Bld) [#/Vol] 3.29 10*6/uL Low 4.6-6.2 [facility] Serum creatinine measurement (mass/volume)Ordered By: Jamarcus Mercedes on 08-10-2025 Creatinine [Mass/Vol] 0.75 mg/dL 0.70-1.20 [facility] Serum glucose measurement (m ass/volume)Ordered By: Jamarcus Mercedes on 08-10-2025 Glucose [Mass/Vol] 116 mg/dL High 70-99 [facility] Serum or plasma calcium shanita urement (mass/volume)Ordered By: Jamarcus Mercedes on 08-10-2025 Calcium [Mass/Vol] 7.9 mg/dL 7.6-11.0 [facility] Serum or plasma urea nitroge n measurement (mass/volume)Ordered By: Jamarcus Mercedes on 08-10-2025 Urea nitrogen [Mass/Vol] 14 mg/dL 4-19 [facility] Sodium levelOrdered By: Bhupinder Mercedes on 08-10-2025 Sodium [Moles/Vol] 138 mmol/L 133-145 [facility] White blood cell (WBC) count Ordered By: Jamarcus Mercedes on 08-10-2025 WBC (Bld) [#/Vol] 3.7 10*3/uL Low 4.4-11.0 [facility] Absolute lymphocyte countOrd ered By: Ariel Sadler on 08-09-2025 Lymphocytes Auto (Unsp spec) [#/Vol] 1.16 10*3/uL 0.83-4.51 [facility] Anion gap in Serum or Plasma Ordered By: Ariel Sadler on 08-09-2025 Anion gap [Moles/Vol] 8 mmol/L 5-15 [facility] Automated lymphocyte count a s percentage of total leukocytesOrdered By: Ariel Sadler on 08-09-2025 Lymphocytes/100 WBC Auto (Unsp spec) 25.3 % 19-41 [facility] BUN/creatinine ratioOrdered By: Ariel Sadler on 08-09-2025 Urea nitrogen/Creatinine [Mass ratio] 21.5 mg/mg High 08-02 [facility] Basic Metabolic Profile (BMP )on 08-09-2025 BUN/CRE 21.5 RATIO High 08-02 [facility] Comment on above: Performed By: #### L 500.2500, L100.0100 ####[facility] [address] [place], [address] Calcium [Mass/Vol] 7.8 mg/dL Normal 7.6-11.0 [facility] Comment on above: Performed By: #### L 500.2500, L100.0100 ####[facility] [address] [place], [address] Chloride [Moles/Vol] 107 mmol/L Normal 98-108 [facility] Comment on above: Performed By: #### L 500.2500, L100.0100 ####[facility] [address] [place], [address] CO2 [Moles/Vol] 23.9 mmol/L Normal 21.0-32.0 [facility] Comment on above: Performed By: #### L 500.2500, L100.0100 ####[facility] [address] [place], [address] Creatinine [Mass/Vol] 0.77 mg/dL Normal 0.70-1.20 [facility] Comment on above: Performed By: #### L 500.2500, L100.0100 ####[facility] [address] [place], [address] ECRCL 70.06 ml/min Normal 50-250 [facility] Comment on above: Performed By: #### L 500.2500, L100.0100 ####[facility] [address] [place], [address] GAP 8 Normal 5-15 [facility] Comment on above: Performed By: #### L 500.2500, L100.0100 ####[facility] [address] [place], [address] GFR/1.73 sq M.predicted among non-blacks MDRD (S/P/Bld) [Vol rate/Area] 90 mL/min/{1.73_m2} Normal >60 [facility] Comment on above: Result Comment: mL/m in/1.73m2 CKD-EPI Creatinine Equation (2020) Performed By: #### L 500.2500, L100.0100 ####[facility] [address] [place], [address] Glucose [Mass/Vol] 123 mg/dL High 70-99 [facility] Comment on above: Performed By: #### L 500.2500, L100.0100 ####[facility] [address] [place], [address] Potassium [Moles/Vol] 3.6 mmol/L Normal 3.3-5.1 [facility] Comment on above: Performed By: #### L 500.2500, L100.0100 ####[facility] [address] [place], [address] Sodium [Moles/Vol] 139 mmol/L Normal 133-145 [facility] Comment on above: Performed By: #### L 500.2500, L100.0100 ####[facility] [address] [place], [address] Urea nitrogen [Mass/Vol] 17 mg/dL Normal 4-19 [facility] Comment on above: Performed By: #### L 500.2500, L100.0100 ####[facility] [address] [place], [address] Basophil percentageOrdered B y: Ariel Sadler on 08-09-2025 Basophils/100 WBC (Bld) 0.7 % 0-1 [facility] CBC W/Diff, Automatedon 07-15 Absolute Lymph 1.16 X10 3/uL Normal 0.83-4.51 [facility] Comment on above: Performed By: #### L 500.2500, L100.0100 ####[facility] [address] [place], [address] Absolute Neut 2.8 X10 3/uL Normal 2.0-7.7 [facility] Comment on above: Performed By: #### L 500.2500, L100.0100 ####[facility] [address] [place], [address] Basophils/100 WBC (Bld) 0.7 % Normal 0-1 [facility] Comment on above: Performed By: #### L 500.2500, L100.0100 ####[facility] [address] [place], [address] Eosinophils/100 WBC (Bld) 2.0 % Normal 0-5 [facility] Comment on above: Performed By: #### L 500.2500, L100.0100 ####[facility] [address] [place], [address] Erythrocyte distribution width (RBC) [Ratio] 15.1 % High 11.6-14.6 [facility] Comment on above: Performed By: #### L 500.2500, L100.0100 ####[facility] [address] [place], [address] Hematocrit (Bld) [Volume fraction] 27.5 % Low 40-54 [facility] Comment on above: Performed By: #### L 500.2500, L100.0100 ####[facility] [address] [place], [address] Hemoglobin (Bld) [Mass/Vol] 9.3 g/dL Low 13.0-16.5 [facility] Comment on above: Performed By: #### L 500.2500, L100.0100 ####[facility] [address] [place], [address] IG% 0.700 Normal 0.0-0.9 [facility] Comment on above: Result Comment: IG% - Immature Granulocytes (promyelocytes, myelocytes andmetamyelocytes) > 1% indicates that a LEFT SHIFT is Present. Performed By: #### L 500.2500, L100.0100 ####[facility] [address] [place], [address] Lymphocytes/100 WBC (Bld) 25.3 % Normal 19-41 [facility] Comment on above: Performed By: #### L 500.2500, L100.0100 ####[facility] [address] [place], [address] MCH (RBC) [Entitic mass] 30.3 pg Normal 27.0-32.0 [facility] Comment on above: Performed By: #### L 500.2500, L100.0100 ####[facility] [address] [place], [address] MCHC (RBC) [Mass/Vol] 33.8 g/dL Normal 32-36 [facility] Comment on above: Performed By: #### L 500.2500, L100.0100 ####[facility] [address] [place], [address] MCV (RBC) [Entitic vol] 89.6 fL Normal 80-94 [facility] Comment on above: Performed By: #### L 500.2500, L100.0100 ####[facility] [address] [place], [address] Monocytes/100 WBC (Bld) 10.5 % High 0-10 [facility] Comment on above: Performed By: #### L 500.2500, L100.0100 ####[facility] [address] [place], [address] Neutrophils/100 WBC (Bld) 60.8 % Normal 47-70 [facility] Comment on above: Performed By: #### L 500.2500, L100.0100 ####[facility] [address] [place], [address] Nucleated RBC (Bld) [#/Vol] 0 10*3/uL Normal 0-5 [facility] Comment on above: Performed By: #### L 500.2500, L100.0100 ####[facility] [address] [place], [address] Platelet mean volume (Bld) [Entitic vol] 10.2 fL Normal 6.2-12.0 [facility] Comment on above: Performed By: #### L 500.2500, L100.0100 ####[facility] [address] [place], [address] Platelets (Bld) [#/Vol] 199 10*3/uL Normal 150-450 [facility] Comment on above: Performed By: #### L 500.2500, L100.0100 ####[facility] [address] [place], [address] RBC (Bld) [#/Vol] 3.07 10*6/uL Low 4.6-6.2 [facility] Comment on above: Performed By: #### L 500.2500, L100.0100 ####[facility] [address] [place], [address] RDW SD 47.3 fl High 35.1-43.9 [facility] Comment on above: Performed By: #### L 500.2500, L100.0100 ####[facility] [address] [place], [address] WBC (Bld) [#/Vol] 4.6 10*3/uL Normal 4.4-11.0 [facility] Comment on above: Performed By: #### L 500.2500, L100.0100 ####[facility] [address] [place], [address] Absolute Neut Normal 2.0-7.7 [facility] Comment on above: Result Comment: NO S PECIMEN COLLECTED Performed By: #### L 500.4050, L100.0100 ####[facility] [address] [place], [address] HCT Normal 40-54 [facility] Comment on above: Result Comment: NO S PECIMEN COLLECTED Performed By: #### L 500.4050, L100.0100 ####[facility] [address] [place], [address] HGB Normal 13.0-16.5 [facility] Comment on above: Result Comment: NO S PECIMEN COLLECTED Performed By: #### L 500.4050, L100.0100 ####[facility] [address] [place], [address] MCH Normal 27.0-32.0 [facility] Comment on above: Result Comment: NO S PECIMEN COLLECTED Performed By: #### L 500.4050, L100.0100 ####[facility] [address] [place], [address] MCHC Normal 32-36 [facility] Comment on above: Result Comment: NO S PECIMEN COLLECTED Performed By: #### L 500.4050, L100.0100 ####[facility] [address] [place], [address] MCV Normal 80-94 [facility] Comment on above: Result Comment: NO S PECIMEN COLLECTED Performed By: #### L 500.4050, L100.0100 ####[facility] [address] [place], [address] NEUT% Normal 47-70 [facility] Comment on above: Result Comment: NO S PECIMEN COLLECTED Performed By: #### L 500.4050, L100.0100 ####[facility] [address] [place], [address] PLT Normal 150-450 [facility] Comment on above: Result Comment: NO S PECIMEN COLLECTED Performed By: #### L 500.4050, L100.0100 ####[facility] [address] [place], [address] RBC Normal 4.6-6.2 [facility] Comment on above: Result Comment: NO S PECIMEN COLLECTED Performed By: #### L 500.4050, L100.0100 ####[facility] [address] [place], [address] RDW CV Normal 11.6-14.6 [facility] Comment on above: Result Comment: NO S PECIMEN COLLECTED Performed By: #### L 500.4050, L100.0100 ####[facility] [address] [place], [address] RDW SD Normal 35.1-43.9 [facility] Comment on above: Result Comment: NO S PECIMEN COLLECTED Performed By: #### L 500.4050, L100.0100 ####[facility] [address] [place], [address] WBC Normal 4.4-11.0 [facility] Comment on above: Result Comment: NO S PECIMEN COLLECTED Performed By: #### L 500.4050, L100.0100 ####[facility] [address] [place], [address] Carbon dioxide, total [Moles /volume] in Central venous bloodOrdered By: Ariel Sadler on 08-09-2025 CO2 [Moles/Vol] 23.9 mmol/L 21.0-32.0 [facility] Chloride assayOrdered By: Cristina Sadler on 08-09-2025 Chloride [Moles/Vol] 107 mmol/L 98-108 [facility] Comprehensive Metabolic Prof ilon 08-09-2025 ALB Normal 3.4-4.8 [facility] Comment on above: Result Comment: NO S PECIMEN COLLECTED Performed By: #### L 500.4050, L100.0100 ####[facility] [address] [place], [address] ALK PHOS Normal 40-129 [facility] Comment on above: Result Comment: NO S PECIMEN COLLECTED Performed By: #### L 500.4050, L100.0100 ####[facility] [address] [place], [address] ALT Normal <=46 [facility] Comment on above: Result Comment: NO S PECIMEN COLLECTED Performed By: #### L 500.4050, L100.0100 ####[facility] [address] [place], [address] AST Normal <=37 [facility] Comment on above: Result Comment: NO S PECIMEN COLLECTED Performed By: #### L 500.4050, L100.0100 ####[facility] [address] [place], [address] BUN Normal 4-19 [facility] Comment on above: Result Comment: NO S PECIMEN COLLECTED Performed By: #### L 500.4050, L100.0100 ####[facility] [address] [place], [address] BUN/CRE Normal 10-20 [facility] Comment on above: Result Comment: NO S PECIMEN COLLECTED Performed By: #### L 500.4050, L100.0100 ####[facility] [address] [place], [address] Calcium Normal 7.6-11.0 [facility] Comment on above: Result Comment: NO S PECIMEN COLLECTED Performed By: #### L 500.4050, L100.0100 ####[facility] [address] [place], [address] CL Normal 98-108 [facility] Comment on above: Result Comment: NO S PECIMEN COLLECTED Performed By: #### L 500.4050, L100.0100 ####[facility] [address] [place], [address] CO2 Normal 21.0-32.0 [facility] Comment on above: Result Comment: NO S PECIMEN COLLECTED Performed By: #### L 500.4050, L100.0100 ####[facility] [address] [place], [address] CREAT,SERUM Normal 0.70-1.20 [facility] Comment on above: Result Comment: NO S PECIMEN COLLECTED Performed By: #### L 500.4050, L100.0100 ####[facility] [address] [place], [address] eGFR Normal >60 [facility] Comment on above: Result Comment: NO S PECIMEN COLLECTED Performed By: #### L 500.4050, L100.0100 ####[facility] [address] [place], [address] GAP Normal 5-15 [facility] Comment on above: Result Comment: NO S PECIMEN COLLECTED Performed By: #### L 500.4050, L100.0100 ####[facility] [address] [place], [address] GLU Normal 70-99 [facility] Comment on above: Result Comment: NO S PECIMEN COLLECTED Performed By: #### L 500.4050, L100.0100 ####[facility] [address] [place], [address] Potassium Normal 3.3-5.1 [facility] Comment on above: Result Comment: NO S PECIMEN COLLECTED Performed By: #### L 500.4050, L100.0100 ####[facility] [address] [place], [address] T BILI Normal 0.00-1.30 [facility] Comment on above: Result Comment: NO S PECIMEN COLLECTED Performed By: #### L 500.4050, L100.0100 ####[facility] [address] [place], [address] T PROT Normal 5.9-8.4 [facility] Comment on above: Result Comment: NO S PECIMEN COLLECTED Performed By: #### L 500.4050, L100.0100 ####[facility] [address] [place], [address] Comprehensive Metabolic Profil Normal 133-145 [facility] Comment on above: Result Comment: NO S PECIMEN COLLECTED Performed By: #### L 500.4050, L100.0100 ####[facility] [address] [place], [address] Eosinophil percentageOrdered By: Ariel Sadler on 08-09-2025 Eosinophils/100 WBC (Bld) 2.0 % 0-5 [facility] Erythrocyte distribution wid th ratioOrdered By: Ariel Sadler on 08-09-2025 Erythrocyte distribution width (RBC) [Ratio] 15.1 % High 11.6-14.6 [facility] Erythrocyte distribution wid th standard deviationOrdered By: Ariel Sadler on 08-09-2025 Erythrocyte distribution width (RBC) [Ratio] 47.3 fl High 35.1-43.9 [facility] Glomerular filtration rate ( GFR) estimation/1.73 sq m using serum, plasma, or whole bOrdered By: Ariel Sadler on 08-09-2025 GFR/1.73 sq M.predicted among non-blacks MDRD (S/P/Bld) [Vol rate/Area] 90 mL/min/{1.73_m2} >60 [facility] Hematocrit Auto (Bld) [Volum e fraction]Ordered By: Ariel Sadler on 08-09-2025 Hematocrit (Bld) [Volume fraction] 27.5 % Low 40-54 [facility] Hemoglobin measurementOrdere d By: Ariel Sadler on 08-09-2025 Hemoglobin (Bld) [Mass/Vol] 9.3 g/dL Low 13.0-16.5 [facility] Immature granulocytes/100 WB C Auto (Bld)Ordered By: Ariel Sadler on 08-09-2025 Immature granulocytes/100 WBC (Bld) 0.700 % 0.0-0.9 [facility] MCV (mean corpuscular volume ) determinationOrdered By: Ariel Sadler on 08-09-2025 MCV (RBC) [Entitic vol] 89.6 fL 80-94 [facility] Mean corpuscular hemoglobin (MCH) determinationOrdered By: Ariel Sadler on 08-09-2025 MCH (RBC) [Entitic mass] 30.3 pg 27.0-32.0 [facility] Monocyte percentageOrdered B y: Ariel Sadler on 08-09-2025 Monocytes/100 WBC (Bld) 10.5 % High 0-10 [facility] Neutrophil percentageOrdered By: Ariel Sadler on 08-09-2025 Neutrophils/100 WBC (Bld) 60.8 % 47-70 [facility] Platelet countOrdered By: Cristina Sadler on 08-09-2025 Platelets (Bld) [#/Vol] 199 10*3/uL 150-450 [facility] Potassium measurement (mass/ volume)Ordered By: Ariel Sadler on 08-09-2025 Potassium (Unsp spec) [Mass/Vol] 3.6 mmol/L 3.3-5.1 [facility] RBC Auto (Bld) [#/Vol]Ordere d By: Ariel Sadler on 08-09-2025 RBC (Bld) [#/Vol] 3.07 10*6/uL Low 4.6-6.2 [facility] Serum creatinine measurement (mass/volume)Ordered By: Ariel Sadler on 08-09-2025 Creatinine [Mass/Vol] 0.77 mg/dL 0.70-1.20 [facility] Serum glucose measurement (m ass/volume)Ordered By: Ariel Sadler on 08-09-2025 Glucose [Mass/Vol] 123 mg/dL High 70-99 [facility] Serum or plasma calcium shanita urement (mass/volume)Ordered By: Ariel Sadler on 08-09-2025 Calcium [Mass/Vol] 7.8 mg/dL 7.6-11.0 [facility] Serum or plasma urea nitroge n measurement (mass/volume)Ordered By: Ariel Sadler on 08-09-2025 Urea nitrogen [Mass/Vol] 17 mg/dL 4-19 [facility] Sodium levelOrdered By: Ariel Sadler on 08-09-2025 Sodium [Moles/Vol] 139 mmol/L 133-145 [facility] White blood cell (WBC) count Ordered By: Ariel Sadler on 08-09-2025 WBC (Bld) [#/Vol] 4.6 10*3/uL 4.4-11.0 [facility] Bilirubin, totalOrdered By: Jamarcus Cespedes on 08-08-2025 Bilirubin [Mass/Vol] 0.30 mg/dL 0.00-1.30 [facility] CBC W/Diff, Automatedon 10 Absolute Lymph 1.09 X10 3/uL Normal 0.83-4.51 [facility] Comment on above: Performed By: #### L 500.4050, L100.0100 ####[facility] [address] [place], [address] Absolute Neut 2.4 X10 3/uL Normal 2.0-7.7 [facility] Comment on above: Performed By: #### L 500.4050, L100.0100 ####[facility] [address] [place], [address] Basophils/100 WBC (Bld) 0.5 % Normal 0-1 [facility] Comment on above: Performed By: #### L 500.4050, L100.0100 ####[facility] [address] [place], [address] Eosinophils/100 WBC (Bld) 1.4 % Normal 0-5 [facility] Comment on above: Performed By: #### L 500.4050, L100.0100 ####[facility] [address] [place], [address] Erythrocyte distribution width (RBC) [Ratio] 14.9 % High 11.6-14.6 [facility] Comment on above: Performed By: #### L 500.4050, L100.0100 ####[facility] [address] [place], [address] Hematocrit (Bld) [Volume fraction] 29.5 % Low 40-54 [facility] Comment on above: Performed By: #### L 500.4050, L100.0100 ####[facility] [address] [place], [address] Hemoglobin (Bld) [Mass/Vol] 9.9 g/dL Low 13.0-16.5 [facility] Comment on above: Performed By: #### L 500.4050, L100.0100 ####[facility] [address] [place], [address] IG% 1.700 High 0.0-0.9 [facility] Comment on above: Result Comment: IG% - Immature Granulocytes (promyelocytes, myelocytes andmetamyelocytes) > 1% indicates that a LEFT SHIFT is Present. Performed By: #### L 500.4050, L100.0100 ####[facility] [address] [place], [address] Lymphocytes/100 WBC (Bld) 26.1 % Normal 19-41 [facility] Comment on above: Performed By: #### L 500.4050, L100.0100 ####[facility] [address] [place], [address] MCH (RBC) [Entitic mass] 30.0 pg Normal 27.0-32.0 [facility] Comment on above: Performed By: #### L 500.4050, L100.0100 ####[facility] [address] [place], [address] MCHC (RBC) [Mass/Vol] 33.6 g/dL Normal 32-36 [facility] Comment on above: Performed By: #### L 500.4050, L100.0100 ####[facility] [address] [place], [address] MCV (RBC) [Entitic vol] 89.4 fL Normal 80-94 [facility] Comment on above: Performed By: #### L 500.4050, L100.0100 ####[facility] [address] [place], [address] Monocytes/100 WBC (Bld) 12.5 % High 0-10 [facility] Comment on above: Performed By: #### L 500.4050, L100.0100 ####[facility] [address] [place], [address] Neutrophils/100 WBC (Bld) 57.8 % Normal 47-70 [facility] Comment on above: Performed By: #### L 500.4050, L100.0100 ####[facility] [address] [place], [address] Nucleated RBC (Bld) [#/Vol] 0 10*3/uL Normal 0-5 [facility] Comment on above: Performed By: #### L 500.4050, L100.0100 ####[facility] [address] [place], [address] Platelet mean volume (Bld) [Entitic vol] 10.3 fL Normal 6.2-12.0 [facility] Comment on above: Performed By: #### L 500.4050, L100.0100 ####[facility] [address] [place], [address] Platelets (Bld) [#/Vol] 187 10*3/uL Normal 150-450 [facility] Comment on above: Performed By: #### L 500.4050, L100.0100 ####[facility] [address] [place], [address] RBC (Bld) [#/Vol] 3.30 10*6/uL Low 4.6-6.2 [facility] Comment on above: Performed By: #### L 500.4050, L100.0100 ####[facility] [address] [place], [address] RDW SD 46.7 fl High 35.1-43.9 [facility] Comment on above: Performed By: #### L 500.4050, L100.0100 ####[facility] [address] [place], [address] WBC (Bld) [#/Vol] 4.2 10*3/uL Low 4.4-11.0 [facility] Comment on above: Performed By: #### L 500.4050, L100.0100 ####[facility] [address] [place], [address] Comprehensive Metabolic Prof ilon 08-08-2025 Albumin [Mass/Vol] 2.9 g/dL Low 3.4-4.8 [facility] Comment on above: Performed By: #### L 500.4050, L100.0100 ####[facility] [address] [place], [address] Albumin/Globulin [Mass ratio] 1.1 {ratio} Normal 0.9-2.4 [facility] Comment on above: Performed By: #### L 500.4050, L100.0100 ####[facility] [address] [place], [address] ALK PHOS 69 U/L Normal 40-129 [facility] Comment on above: Performed By: #### L 500.4050, L100.0100 ####[facility] [address] [place], [address] ALT [Catalytic activity/Vol] 17 U/L Normal <=46 [facility] Comment on above: Performed By: #### L 500.4050, L100.0100 ####[facility] [address] [place], [address] AST [Catalytic activity/Vol] 25 U/L Normal <=37 [facility] Comment on above: Performed By: #### L 500.4050, L100.0100 ####[facility] [address] [place], [address] Bilirubin [Mass/Vol] 0.30 mg/dL Normal 0.00-1.30 [facility] Comment on above: Performed By: #### L 500.4050, L100.0100 ####[facility] [address] [place], [address] BUN/CRE 23.4 RATIO High 10-20 [facility] Comment on above: Performed By: #### L 500.4050, L100.0100 ####[facility] [address] [place], [address] Calcium [Mass/Vol] 8.0 mg/dL Normal 7.6-11.0 [facility] Comment on above: Performed By: #### L 500.4050, L100.0100 ####[facility] [address] [place], [address] Chloride [Moles/Vol] 110 mmol/L High 98-108 [facility] Comment on above: Performed By: #### L 500.4050, L100.0100 ####[facility] [address] [place], [address] CO2 [Moles/Vol] 23.9 mmol/L Normal 21.0-32.0 [facility] Comment on above: Performed By: #### L 500.4050, L100.0100 ####[facility] [address] [place], [address] Creatinine [Mass/Vol] 0.76 mg/dL Normal 0.70-1.20 [facility] Comment on above: Performed By: #### L 500.4050, L100.0100 ####[facility] [address] [place], [address] ECRCL 70.06 ml/min Normal 50-250 [facility] Comment on above: Performed By: #### L 500.4050, L100.0100 ####[facility] [address] [place], [address] GAP 7 Normal 5-15 [facility] Comment on above: Performed By: #### L 500.4050, L100.0100 ####[facility] [address] [place], [address] GFR/1.73 sq M.predicted among non-blacks MDRD (S/P/Bld) [Vol rate/Area] 90 mL/min/{1.73_m2} Normal >60 [facility] Comment on above: Result Comment: mL/m in/1.73m2 CKD-EPI Creatinine Equation (2020) Performed By: #### L 500.4050, L100.0100 ####[facility] [address] [place], [address] Globulin (S) [Mass/Vol] 2.6 g/dL Normal 2.2-4.2 [facility] Comment on above: Performed By: #### L 500.4050, L100.0100 ####[facility] [address] [place], [address] Glucose [Mass/Vol] 120 mg/dL High 70-99 [facility] Comment on above: Performed By: #### L 500.4050, L100.0100 ####[facility] [address] [place], [address] Potassium [Moles/Vol] 3.9 mmol/L Normal 3.3-5.1 [facility] Comment on above: Performed By: #### L 500.4050, L100.0100 ####[facility] [address] [place], [address] Sodium [Moles/Vol] 140 mmol/L Normal 133-145 [facility] Comment on above: Performed By: #### L 500.4050, L100.0100 ####[facility] [address] [place], [address] T PROT 5.5 g/dL Low 5.9-8.4 [facility] Comment on above: Performed By: #### L 500.4050, L100.0100 ####[facility] [address] [place], [address] Urea nitrogen [Mass/Vol] 18 mg/dL Normal 4-19 [facility] Comment on above: Performed By: #### L 500.4050, L100.0100 ####[facility] [address] [place], [address] No Panel InformationOrdered By: Jamarcus Cespedes on 08-08-2025 25 U/L <38 [facility] Serum globulin measurementOr dered By: Jamarcus Cespedes on 08-08-2025 Globulin (S) [Mass/Vol] 2.6 g/dL 2.2-4.2 [facility] Serum or plasma alanine macias otransferase (ALT) measurementOrdered By: Jamarcus Cespedes on 08-08-2025 ALT [Catalytic activity/Vol] 17 U/L <47 [facility] Serum or plasma albumin shanita urement (mass/volume)Ordered By: Jamarcus Cespedes on 08-08-2025 Albumin [Mass/Vol] 2.9 g/dL Low 3.4-4.8 [facility] Serum or plasma albumin/glob ulin mass ratioOrdered By: Jamarcus Cespedes on 08-08-2025 Albumin/Globulin [Mass ratio] 1.1 {ratio} 0.9-2.4 [facility] Serum or plasma alkaline tobin sphatase measurementOrdered By: Jamarcus Cespedes on 08-08-2025 ALP [Catalytic activity/Vol] 69 U/L 40-129 [facility] Total proteinOrdered By: Ashish Cespedes on 08-08-2025 Protein [Mass/Vol] 5.5 g/dL Low 5.9-8.4 [facility] Urine Cultureon 08-08-2025 URC Culture exhibits no growth. Normal [facility] Comment on above: Performed By: #### M 100.2200 ####[facility] [address] [place], [place], [address] 12 Lead EKGon 08-07-2025 12 Lead EKG Normal [facility] Activated partial thrombopla stin time (aPTT) in platelet poor plasma by coagulation aOrdered By: Ariel Painter on 08-07-2025 aPTT Coag (PPP) [Time] 34.8 s 24.1-36.2 [facility] Basic Metabolic Profile (BMP )on 08-07-2025 BUN/CRE 29.7 RATIO High - [facility] Comment on above: Performed By: #### L 503.6005, L500.2500, L300.4310, L300.3900, L100.0100 ####[facility] [address] [place], [address] Calcium [Mass/Vol] 8.0 mg/dL Normal 7.6-11.0 [facility] Comment on above: Performed By: #### L 503.6005, L500.2500, L300.4310, L300.3900, L100.0100 ####[facility] [address] [place], [address] Chloride [Moles/Vol] 106 mmol/L Normal 98-108 [facility] Comment on above: Performed By: #### L 503.6005, L500.2500, L300.4310, L300.3900, L100.0100 ####[facility] [address] [place], [address] CO2 [Moles/Vol] 24.8 mmol/L Normal 21.0-32.0 [facility] Comment on above: Performed By: #### L 503.6005, L500.2500, L300.4310, L300.3900, L100.0100 ####[facility] [address] [place], [address] Creatinine [Mass/Vol] 0.95 mg/dL Normal 0.70-1.20 [facility] Comment on above: Performed By: #### L 503.6005, L500.2500, L300.4310, L300.3900, L100.0100 ####[facility] [address] [place], [address] ECRCL 59.00 ml/min Normal 50-250 [facility] Comment on above: Performed By: #### L 503.6005, L500.2500, L300.4310, L300.3900, L100.0100 ####[facility] [address] [place], [address] GAP 8 Normal 5-15 [facility] Comment on above: Performed By: #### L 503.6005, L500.2500, L300.4310, L300.3900, L100.0100 ####[facility] [address] [place], [address] GFR/1.73 sq M.predicted among non-blacks MDRD (S/P/Bld) [Vol rate/Area] 81 mL/min/{1.73_m2} Normal >60 [facility] Comment on above: Result Comment: mL/m in/1.73m2 CKD-EPI Creatinine Equation (2020) Performed By: #### L 503.6005, L500.2500, L300.4310, L300.3900, L100.0100 ####[facility] [address] [place], [address] Glucose [Mass/Vol] 119 mg/dL High 70-99 [facility] Comment on above: Performed By: #### L 503.6005, L500.2500, L300.4310, L300.3900, L100.0100 ####[facility] [address] [place], [address] Potassium [Moles/Vol] 4.1 mmol/L Normal 3.3-5.1 [facility] Comment on above: Performed By: #### L 503.6005, L500.2500, L300.4310, L300.3900, L100.0100 ####[facility] [address] [place], [address] Sodium [Moles/Vol] 139 mmol/L Normal 133-145 [facility] Comment on above: Performed By: #### L 503.6005, L500.2500, L300.4310, L300.3900, L100.0100 ####[facility] [address] [place], [address] Urea nitrogen [Mass/Vol] 28 mg/dL High 4-19 [facility] Comment on above: Performed By: #### L 503.6005, L500.2500, L300.4310, L300.3900, L100.0100 ####[facility] [address] [place], [address] Bilirubin Test strip Ql (U)O rdered By: Ariel Painter on 08-07-2025 Bilirubin Ql (U) Negative Negative [facility] Blood cultureOrdered By: Rena Painter on 08-07-2025 Bacteria identified Cx Nom (Bld) No growth in 5 days. [facility] Bacteria identified Cx Nom (Bld) No growth in 5 days. [facility] Bacteria identified Cx Nom (Bld) No growth in 5 days. [facility] Bacteria identified Cx Nom (Bld) No growth in 5 days. [facility] CBC W/Diff, Automatedon 10-2 Absolute Lymph 1.32 X10 3/uL Normal 0.83-4.51 [facility] Comment on above: Performed By: #### L 503.6005, L500.2500, L300.4310, L300.3900, L100.0100 ####[facility] [address] [place], [address] Absolute Neut 3.2 X10 3/uL Normal 2.0-7.7 [facility] Comment on above: Performed By: #### L 503.6005, L500.2500, L300.4310, L300.3900, L100.0100 ####[facility] [address] [place], [address] Basophils/100 WBC (Bld) 0.9 % Normal 0-1 [facility] Comment on above: Performed By: #### L 503.6005, L500.2500, L300.4310, L300.3900, L100.0100 ####[facility] [address] [place], [address] Eosinophils/100 WBC (Bld) 0.4 % Normal 0-5 [facility] Comment on above: Performed By: #### L 503.6005, L500.2500, L300.4310, L300.3900, L100.0100 ####[facility] [address] [place], [address] Erythrocyte distribution width (RBC) [Ratio] 14.9 % High 11.6-14.6 [facility] Comment on above: Performed By: #### L 503.6005, L500.2500, L300.4310, L300.3900, L100.0100 ####[facility] [address] [place], [address] Hematocrit (Bld) [Volume fraction] 30.2 % Low 40-54 [facility] Comment on above: Performed By: #### L 503.6005, L500.2500, L300.4310, L300.3900, L100.0100 ####[facility] [address] [place], [address] Hemoglobin (Bld) [Mass/Vol] 9.9 g/dL Low 13.0-16.5 [facility] Comment on above: Performed By: #### L 503.6005, L500.2500, L300.4310, L300.3900, L100.0100 ####[facility] [address] [place], [address] IG% 2.200 High 0.0-0.9 [facility] Comment on above: Result Comment: IG% - Immature Granulocytes (promyelocytes, myelocytes andmetamyelocytes) > 1% indicates that a LEFT SHIFT is Present. Performed By: #### L 503.6005, L500.2500, L300.4310, L300.3900, L100.0100 ####[facility] [address] [place], [address] Lymphocytes/100 WBC (Bld) 24.4 % Normal 19-41 [facility] Comment on above: Performed By: #### L 503.6005, L500.2500, L300.4310, L300.3900, L100.0100 ####[facility] [address] [place], [address] MCH (RBC) [Entitic mass] 29.3 pg Normal 27.0-32.0 [facility] Comment on above: Performed By: #### L 503.6005, L500.2500, L300.4310, L300.3900, L100.0100 ####[facility] [address] [place], [address] MCHC (RBC) [Mass/Vol] 32.8 g/dL Normal 32-36 [facility] Comment on above: Performed By: #### L 503.6005, L500.2500, L300.4310, L300.3900, L100.0100 ####[facility] [address] [place], [address] MCV (RBC) [Entitic vol] 89.3 fL Normal 80-94 [facility] Comment on above: Performed By: #### L 503.6005, L500.2500, L300.4310, L300.3900, L100.0100 ####[facility] [address] [place], [address] Monocytes/100 WBC (Bld) 13.7 % High 0-10 [facility] Comment on above: Performed By: #### L 503.6005, L500.2500, L300.4310, L300.3900, L100.0100 ####[facility] [address] [place], [address] Neutrophils/100 WBC (Bld) 58.4 % Normal 47-70 [facility] Comment on above: Performed By: #### L 503.6005, L500.2500, L300.4310, L300.3900, L100.0100 ####[facility] [address] [place], [address] Nucleated RBC (Bld) [#/Vol] 0 10*3/uL Normal 0-5 [facility] Comment on above: Performed By: #### L 503.6005, L500.2500, L300.4310, L300.3900, L100.0100 ####[facility] [address] [place], [address] Platelet mean volume (Bld) [Entitic vol] 10.4 fL Normal 6.2-12.0 [facility] Comment on above: Performed By: #### L 503.6005, L500.2500, L300.4310, L300.3900, L100.0100 ####[facility] [address] [place], [address] Platelets (Bld) [#/Vol] 178 10*3/uL Normal 150-450 [facility] Comment on above: Performed By: #### L 503.6005, L500.2500, L300.4310, L300.3900, L100.0100 ####[facility] [address] [place], [address] RBC (Bld) [#/Vol] 3.38 10*6/uL Low 4.6-6.2 [facility] Comment on above: Performed By: #### L 503.6005, L500.2500, L300.4310, L300.3900, L100.0100 ####[facility] [address] [place], [address] RDW SD 47.5 fl High 35.1-43.9 [facility] Comment on above: Performed By: #### L 503.6005, L500.2500, L300.4310, L300.3900, L100.0100 ####[facility] [address] [place], [address] WBC (Bld) [#/Vol] 5.4 10*3/uL Normal 4.4-11.0 [facility] Comment on above: Performed By: #### L 503.6005, L500.2500, L300.4310, L300.3900, L100.0100 ####[facility] [address] [place], [address] Chest 1 View (Portable)on Chest 1 View (Portable) Normal [facility] Chest WITH Contraston 2024 Chest WITH Contrast Normal [facility] Emergency Department Summary on 08-07-2025 Emergency Department Summary Normal [facility] H AND P Exam - Hospitaliston 08-07-2025 H&P Exam - Hospitalist Normal [facility] Influenza virus A and B and SARS-CoV-2 (COVID-19) and Respiratory syncytial virus RNAOrdered By: Ariel Painter on 08-07-2025 SARS-CoV-2 (COVID-19) RNA DEMIAN+probe Ql (Unsp spec) [facility] SARS-CoV-2 (COVID-19) RNA DEMIAN+probe Ql (Unsp spec) [facility] Ketones Test strip Ql (U)Ord ered By: Ariel Painter on 08-07-2025 Ketones Ql (U) Negative Negative [facility] L501.4021on 08-07-2025 Trop T High Sen 19 ng/L Normal <=22 [facility] [facility] Comment on above: Performed By: #### L 501.4021 ####[facility] [address] [place], [address] Lactic Acidon 08-07-2025 Lactate [Moles/Vol] mmol/L Normal 0.0-2.0 [facility] Comment on above: Order Comment: Y Performed By: #### L 503.6005, L500.2500, L300.4310, L300.3900, L100.0100 ####[facility] [address] [place], [address] Legionella Antigen Urineon 1 LEGU Normal [facility] Comment on above: Performed By: #### M 300.4600, M300.4500 ####[facility] [address] [place], [address] M100.678on 08-07-2025 M100.678 Normal Reference Ran ge = Negative FLUABV+SARS-CoV-2+RSV Pnl Resp DEMIAN+probe [employer], PCR method SARS-CoV-2 (COVID 19) Negative INFLUENZA A Negative INFLUENZA B Negative RSV PCR Negative Normal [facility] Comment on above: Performed By: #### M 100.678 ####[facility] [address] [place], [address] Magnesiumon 08-07-2025 Magnesium [Mass/Vol] 2.1 mg/dL Normal 1.5-2.2 [facility] Comment on above: Performed By: #### L 501.9520, L501.5200 ####[facility] [address] [place], [address] Magnesium measurement (mass/ volume)Ordered By: Jamarcus Cespedes on 08-07-2025 Magnesium (Unsp spec) [Mass/Vol] 2.1 mg/dL 1.5-2.2 [facility] Mucus LM Ql (Urine sed)Order ed By: Ariel Painter on 08-07-2025 Mucus Ql (Urine sed) 0 SEEN /hpf [facility] Nitrite Test strip Ql (U)Ord ered By: Ariel Painter on 08-07-2025 Nitrite Ql (U) Negative Negative [facility] Partial Thromboplast Timeon 08-07-2025 aPTT Coag (Bld) [Time] 34.8 s Normal 24.1-36.2 [facility] Comment on above: Performed By: #### L 503.6005, L500.2500, L300.4310, L300.3900, L100.0100 ####[facility] [address] [place], [address] Phosphoruson 08-07-2025 Phosphate [Mass/Vol] 3.0 mg/dL Normal 2.7-4.5 [facility] Comment on above: Performed By: #### L 501.2300 ####[facility] [address] [place], [address] Protein Test strip Ql (U)Ord ered By: Arile Painter on 08-07-2025 Protein Ql (U) Negative Negative [facility] Prothrombin Time w/INRon INR Coag (PPP) [Relative time] 1.6 {INR} Normal [facility] Comment on above: Performed By: #### L 503.6005, L500.2500, L300.4310, L300.3900, L100.0100 ####[facility] [address] [place], [address] PT Coag (PPP) [Time] 19.3 s High 11.7-14.9 [facility] Comment on above: Performed By: #### L 503.6005, L500.2500, L300.4310, L300.3900, L100.0100 ####[facility] [address] [place], [address] Prothrombin timeOrdered By: Ariel Painter on 08-07-2025 PT Coag (PPP) [Time] 19.3 s High 11.7-14.9 [facility] RESPIRATORY PANEL MOLECULARo n 08-07-2025 RP PANEL Normal [facility] Comment on above: Performed By: #### M 100.638 ####[facility] [address] [place], [address] Respiratory pathogens detect ion panel by molecular detection methodOrdered By: Jamarcus Cespedes on 08-07-2025 Respiratory pathogens DNA and RNA panel DEMIAN+probe (Resp) [facility] Respiratory pathogens DNA and RNA panel DEMIAN+probe (Resp) [facility] Squamous epithelial cells de tection in urine sediment by light microscopyOrdered By: Ariel Painter on 08-07-2025 Epithelial cells.squamous LM Ql (Urine sed) 0 SEEN /hpf 0-5 [facility] Strep pneumoniae Antig(UR,CS F)on 08-07-2025 STPAG Normal [facility] Comment on above: Performed By: #### M 300.4600, M300.4500 ####[facility] [address] [place], [address] TSH DL <= 0.005 mIU/L QnOrde red By: Jamarcus Cespedes on 08-07-2025 TSH Qn 0.592 uIU/mL 0.300-4.20 0 [facility] Thyroid Stim Hormone (TSH)on 08-07-2025 TSH 0.592 uIU/mL Normal 0.300-4.20 0 [facility] Comment on above: Performed By: #### L 501.9520, L501.5200 ####[facility] [address] [place], [address] Troponin T HS 2 HRon 08-07-2 025 Trop T High Sen 19 ng/L Normal <=22 [facility] Comment on above: Performed By: #### L 499.0042 ####[facility] [address] [place], [address] Troponin T HS 4 HRon 08-07-2 025 Trop T High Sen 18 ng/L Normal <=22 [facility] Comment on above: Performed By: #### L 499.0043 ####[facility] [address] [place], [address] Troponin T.cardiac [Mass/vol ume] in Serum or Plasma by High sensitivity methodOrdered By: Ariel Painter on 08-07-2025 Troponin T.cardiac High sensitivity method [Mass/Vol] 18 ng/L <22 [facility] Troponin T.cardiac High sensitivity method [Mass/Vol] 19 ng/L <22 [facility] Troponin T.cardiac High sensitivity method [Mass/Vol] 19 ng/L <22 [facility] Urinalysis, Completeon 08-07 RBC 0-5 SEEN Normal 0-5 [facility] Comment on above: Order Comment: CLEAN CATCH Performed By: #### L 400.0001 ####[facility] [address] [place], [address] WBC 0-5 SEEN Normal 0-5 [facility] Comment on above: Order Comment: CLEAN CATCH Performed By: #### L 400.0001 ####[facility] [address] [place], [address] BACTERIA 0 SEEN Normal None Seen [facility] Comment on above: Order Comment: CLEAN CATCH Performed By: #### L 400.0001 ####[facility] [address] [place], [address] EPI,SQUAMOUS 0 SEEN Normal 0-5 [facility] Comment on above: Order Comment: CLEAN CATCH Performed By: #### L 400.0001 ####[facility] [address] [place], [address] Mucus Ql (Urine sed) 0 SEEN Normal [facility] Comment on above: Order Comment: CLEAN CATCH Performed By: #### L 400.0001 ####[facility] [address] [place], [address] Urine Legionella pneumophila antigen detectionOrdered By: Jamarcus Cespedes on 08-07-2025 L. pneumophila Ag Ql (U) [facility] L. pneumophila Ag Ql (U) [facility] Urine clarityOrdered By: Rena Painter on 08-07-2025 Clarity (U) Clear Clear [facility] Urine color determinationOrd ered By: Ariel Painter on 08-07-2025 Color (U) Yellow Yellow [facility] Urine cultureOrdered By: Rena Painter on 08-07-2025 Bacteria identified Cx Nom (U) Culture exhibits no growth. [facility] Bacteria identified Cx Nom (U) Culture exhibits no growth. [facility] Urine glucose detectionOrder ed By: Ariel Painter on 08-07-2025 Glucose Ql (U) Normal mg/dl Normal [facility] Urine leukocyte esterase det ection by dipstickOrdered By: Ariel Painter on 08-07-2025 Leukocyte esterase Test strip Ql (U) Negative Negative [facility] Urine pHOrdered By: Ariel nicholas on 08-07-2025 pH (U) 8.0 [pH] 5.0 - 8.0 [facility] Urine sediment bacteria coun t by microscopy (number/high power field)Ordered By: Ariel Painter on 08-07-2025 Bacteria LM.HPF (Urine sed) [#/Area] 0 /[HPF] None Seen [facility] Urine specific gravity measu rementOrdered By: Ariel Painter on 08-07-2025 Specific gravity (U) [Rel density] 1.015 1.002-1.03 0 [facility] Urine urobilinogen measureme ntOrdered By: Ariel Painter on 08-07-2025 Urobilinogen Ql (U) Normal mg/dl Normal [facility] White blood cell countOrdere d By: Ariel Painter on 08-07-2025 White blood cell count 0-5 SEEN /hpf 0-5 [facility] Basic Metabolic Profile (BMP )on 08-05-2025 BUN Normal - [facility] Comment on above: Result Comment: Canc elled via OM: Order cancelled - Patient discharged Performed By: #### L 500.2500 ####[facility] [address] [place], [place], [id number] BUN/CRE Normal - [facility] Comment on above: Result Comment: Canc elled via OM: Order cancelled - Patient discharged Performed By: #### L 500.2500 ####[facility] [address] [place], [address] Calcium Normal 7.6-11.0 [facility] Comment on above: Result Comment: Canc elled via OM: Order cancelled - Patient discharged Performed By: #### L 500.2500 ####[facility] [address] [place], [address] CL Normal 98-108 [facility] Comment on above: Result Comment: Canc elled via OM: Order cancelled - Patient discharged Performed By: #### L 500.2500 ####[facility] [address] [place], [address] CO2 Normal 21.0-32.0 [facility] Comment on above: Result Comment: Canc elled via OM: Order cancelled - Patient discharged Performed By: #### L 500.2500 ####[facility] [address] [place], [address] CREAT,SERUM Normal 0.70-1.20 [facility] Comment on above: Result Comment: Canc elled via OM: Order cancelled - Patient discharged Performed By: #### L 500.2500 ####[facility] [address] [place], [address] eGFR Normal >60 [facility] Comment on above: Result Comment: Canc elled via OM: Order cancelled - Patient discharged Performed By: #### L 500.2500 ####[facility] [address] [place], [address] GAP Normal 5-15 [facility] Comment on above: Result Comment: Canc elled via OM: Order cancelled - Patient discharged Performed By: #### L 500.2500 ####[facility] [address] [place], [address] GLU Normal 70-99 [facility] Comment on above: Result Comment: Canc elled via OM: Order cancelled - Patient discharged Performed By: #### L 500.2500 ####[facility] [address] [place], [address] Potassium Normal 3.3-5.1 [facility] Comment on above: Result Comment: Canc elled via OM: Order cancelled - Patient discharged Performed By: #### L 500.2500 ####[facility] [address] [place], [address] Basic Metabolic Profile (BMP) Normal 133-145 [facility] Comment on above: Result Comment: Canc elled via OM: Order cancelled - Patient discharged Performed By: #### L 500.2500 ####[facility] [address] [place], [address] CBC W/Diff, Automatedon - PATH REV Reviewed Normal [facility] Comment on above: Result Comment: LEUK OCYTOSIS WITH LEFT SHIFT, NEUTROPHILIA.NORMOCYTIC ANEMIA.PLATELETS ARE ADEQUATE.Nicole Kraus DO 08/04/2025 AMENDED REPORT 08/05/25 0845 PATH REV previously reported as: May foll Performed By: #### L 100.0100 ####[facility] [address] [place], [address] Absolute Neut Normal 2.0-7.7 [facility] Comment on above: Result Comment: Canc elled via OM: Order cancelled - Patient discharged Performed By: #### L 100.0100 ####[facility] [address] [place], [address] HCT Normal 40-54 [facility] Comment on above: Result Comment: Canc elled via OM: Order cancelled - Patient discharged Performed By: #### L 100.0100 ####[facility] [address] [place], [address] HGB Normal 13.0-16.5 [facility] Comment on above: Result Comment: Canc elled via OM: Order cancelled - Patient discharged Performed By: #### L 100.0100 ####[facility] [address] [place], [address] MCH Normal 27.0-32.0 [facility] Comment on above: Result Comment: Canc elled via OM: Order cancelled - Patient discharged Performed By: #### L 100.0100 ####[facility] [address] [place], [address] MCHC Normal 32-36 [facility] Comment on above: Result Comment: Canc elled via OM: Order cancelled - Patient discharged Performed By: #### L 100.0100 ####[facility] [address] [place], [address] MCV Normal 80-94 [facility] Comment on above: Result Comment: Canc elled via OM: Order cancelled - Patient discharged Performed By: #### L 100.0100 ####[facility] [address] [place], [address] NEUT% Normal 47-70 [facility] Comment on above: Result Comment: Canc elled via OM: Order cancelled - Patient discharged Performed By: #### L 100.0100 ####[facility] [address] [place], [address] PLT Normal 150-450 [facility] Comment on above: Result Comment: Canc elled via OM: Order cancelled - Patient discharged Performed By: #### L 100.0100 ####[facility] [address] [place], [address] RBC Normal 4.6-6.2 [facility] Comment on above: Result Comment: Canc elled via OM: Order cancelled - Patient discharged Performed By: #### L 100.0100 ####[facility] [address] [place], [address] RDW CV Normal 11.6-14.6 [facility] Comment on above: Result Comment: Canc elled via OM: Order cancelled - Patient discharged Performed By: #### L 100.0100 ####[facility] [address] [place], [address] RDW SD Normal 35.1-43.9 [facility] Comment on above: Result Comment: Canc elled via OM: Order cancelled - Patient discharged Performed By: #### L 100.0100 ####[facility] [address] [place], [address] WBC Normal 4.4-11.0 [facility] Comment on above: Result Comment: Canc elled via OM: Order cancelled - Patient discharged Performed By: #### L 100.0100 ####[facility] [address] [place], [address] Absolute lymphocyte countOrd ered By: Dev Reardon on 08-04-2025 Lymphocytes Auto (Unsp spec) [#/Vol] 1.71 10*3/uL 0.83-4.51 [facility] Anion gap in Serum or Plasma Ordered By: Dev Reardon on 08-04-2025 Anion gap [Moles/Vol] 15 mmol/L 5-15 [facility] BUN/creatinine ratioOrdered By: Dev Reardon on 08-04-2025 Urea nitrogen/Creatinine [Mass ratio] 6.9 mg/mg Low - [facility] Basic Metabolic Profile (BMP )on 08-04-2025 BUN/CRE 6.9 RATIO Low 08-02 [facility] Comment on above: Performed By: #### L 500.2500, L501.2300 ####[facility] [address] [place], [address] Calcium [Mass/Vol] 7.7 mg/dL Normal 7.6-11.0 [facility] Comment on above: Performed By: #### L 500.2500, L501.2300 ####[facility] [address] [place], [address] Chloride [Moles/Vol] 103 mmol/L Normal 98-108 [facility] Comment on above: Performed By: #### L 500.2500, L501.2300 ####[facility] [address] [place], [address] CO2 [Moles/Vol] 22.8 mmol/L Normal 21.0-32.0 [facility] Comment on above: Performed By: #### L 500.2500, L501.2300 ####[facility] [address] [place], [address] GAP 15 Normal 5-15 [facility] Comment on above: Performed By: #### L 500.2500, L501.2300 ####[facility] [address] [place], [address] GFR/1.73 sq M.predicted among non-blacks MDRD (S/P/Bld) [Vol rate/Area] 73 mL/min/{1.73_m2} Normal >60 [facility] Comment on above: Result Comment: mL/m in/1.73m2 CKD-EPI Creatinine Equation (2020) Performed By: #### L 500.2500, L501.2300 ####[facility] [address] [place], [address] Potassium [Moles/Vol] 3.0 mmol/L Low 3.3-5.1 [facility] Comment on above: Performed By: #### L 500.2500, L501.2300 ####[facility] [address] [place], [address] Sodium [Moles/Vol] 141 mmol/L Normal 133-145 [facility] Comment on above: Performed By: #### L 500.2500, L501.2300 ####[facility] [address] [place], [address] Creatinine [Mass/Vol] 1.03 mg/dL Normal 0.70-1.20 [facility] Comment on above: Performed By: #### L 500.2500, L501.2300 ####[facility] [address] [place], [address] ECRCL 54.42 ml/min Normal 50-250 [facility] Comment on above: Performed By: #### L 500.2500, L501.2300 ####[facility] [address] [place], [address] Glucose [Mass/Vol] 107 mg/dL High 70-99 [facility] Comment on above: Performed By: #### L 500.2500, L501.2300 ####[facility] [address] [place], [address] Urea nitrogen [Mass/Vol] 7 mg/dL Normal 4-19 [facility] Comment on above: Performed By: #### L 500.2500, L501.2300 ####[facility] [address] [place], [address] Blood band neutrophil count as percentage of total leukocytesOrdered By: Dev Reardon on 08-04-2025 Band form neutrophils/100 WBC (Bld) 18 % High 0-5 [facility] Blood basophils/100 leukocyt esOrdered By: Dev Reardon on 08-04-2025 Basophils/100 WBC (Bld) 1 % 0-1 [facility] Blood lymphocytes/100 leukoc ytesOrdered By: Dev Reardon on 08-04-2025 Lymphocytes/100 WBC (Bld) 11 % Low 19-41 [facility] Blood monocytes/100 leukocyt esOrdered By: Dev Reardon on 08-04-2025 Monocytes/100 WBC (Bld) 10 % 0-10 [facility] Blood segmented neutrophils/ 100 leukocytesOrdered By: Dev Reardon on 08-04-2025 Segmented neutrophils/100 WBC (Bld) 59 % 47-70 [facility] Carbon dioxide, total [Moles /volume] in Central venous bloodOrdered By: Dev Reardon on 08-04-2025 CO2 [Moles/Vol] 22.8 mmol/L 21.0-32.0 [facility] Chloride assayOrdered By: Negro Reardon on 08-04-2025 Chloride [Moles/Vol] 103 mmol/L 98-108 [facility] Discharge Instructionon 07-[address] [facility] Dohle bodies detectionOrdere d By: Dev Reardon on 08-04-2025 Dohle body LM Ql (Bld) 2+ Wo [facility] Erythrocyte distribution wid th ratioOrdered By: Dev Reardon on 08-04-2025 Erythrocyte distribution width (RBC) [Ratio] 14.1 % 11.6-14.6 [facility] Erythrocyte distribution wid th standard deviationOrdered By: Dev Reardon on 08-04-2025 Erythrocyte distribution width (RBC) [Ratio] 43.8 fl 35.1-43.9 [facility] Erythrocyte morphology asses smentOrdered By: Dev Reardon on 08-04-2025 RBC morphology finding Nom (Bld) NORM C+C NORMAL NORM C&C [facility] Glomerular filtration rate ( GFR) estimation/1.73 sq m using serum, plasma, or whole bOrdered By: Dev Reardon on 08-04-2025 GFR/1.73 sq M.predicted among non-blacks MDRD (S/P/Bld) [Vol rate/Area] 73 mL/min/{1.73_m2} >60 [facility] Hematocrit Auto (Bld) [Volum e fraction]Ordered By: Dev Reardon on 08-04-2025 Hematocrit (Bld) [Volume fraction] 28.9 % Low 40-54 [facility] Hemoglobin measurementOrdere d By: Dev Reardon on 08-04-2025 Hemoglobin (Bld) [Mass/Vol] 9.9 g/dL Low 13.0-16.5 [facility] MCV (mean corpuscular volume ) determinationOrdered By: Dev Reardon on 08-04-2025 MCV (RBC) [Entitic vol] 87.3 fL 80-94 [facility] Mean corpuscular hemoglobin (MCH) determinationOrdered By: Dev Reardon on 08-04-2025 MCH (RBC) [Entitic mass] 29.9 pg 27.0-32.0 [facility] Phosphoruson 10-22-2025 Phosphate [Mass/Vol] 3.9 mg/dL Normal 2.7-4.5 [facility] Comment on above: Performed By: #### L 500.2500, L501.2300 ####[facility] [address] [place], [address] Platelet countOrdered By: Negro Reardon on 08-04-2025 Platelets (Bld) [#/Vol] 159 10*3/uL 150-450 [facility] Platelet estimateOrdered By: Dev Reardon on 08-04-2025 Platelets LM Ql (Bld) ADEQUATE ADEQ [facility] Potassium measurement (mass/ volume)Ordered By: Dev Reardon on 08-04-2025 Potassium (Unsp spec) [Mass/Vol] 3.0 mmol/L Low 3.3-5.1 [facility] RBC Auto (Bld) [#/Vol]Ordere d By: Dev Reardon on 08-04-2025 RBC (Bld) [#/Vol] 3.31 10*6/uL Low 4.6-6.2 [facility] Radiation Oncology Visiton 1 Radiation Oncology Visit Normal [facility] Review by pathologistOrdered By: Dev Reardon on 08-04-2025 Pathologist review Bill (Unsp spec) [Interp] Reviewed [facility] Serum creatinine measurement (mass/volume)Ordered By: Dev Reardon on 08-04-2025 Creatinine [Mass/Vol] 1.03 mg/dL 0.70-1.20 [facility] Serum glucose measurement (m ass/volume)Ordered By: Dev Reardon on 08-04-2025 Glucose [Mass/Vol] 107 mg/dL High 70-99 [facility] Serum or plasma calcium shanita urement (mass/volume)Ordered By: Dev Reardon on 08-04-2025 Calcium [Mass/Vol] 7.7 mg/dL 7.6-11.0 [facility] Serum or plasma urea nitroge n measurement (mass/volume)Ordered By: Dev Reardon on 08-04-2025 Urea nitrogen [Mass/Vol] 7 mg/dL 4-19 [facility] Sodium levelOrdered By: Umer Reardon on 08-04-2025 Sodium [Moles/Vol] 141 mmol/L 133-145 [facility] Total cell countOrdered By: Dev Reardon on 08-04-2025 Cells counted Mol[employer] (Bld/Tiss) [#] 100 MANUAL DIFF [facility] Toxic leukocyte granulation detectionOrdered By: Dev Reardon on 08-04-2025 Toxic granules LM Ql (Bld) 2+ [facility] White blood cell (WBC) count Ordered By: Dev Reardon on 08-04-2025 WBC (Bld) [#/Vol] 15.5 10*3/uL High 4.4-11.0 [facility] Bilirubin, totalOrdered By: Dev Reardon on 08-03-2025 Bilirubin [Mass/Vol] 0.53 mg/dL 0.00-1.30 [facility] Blood metamyelocytes/100 elena kocytesOrdered By: Dev Reardon on 08-03-2025 Metamyelocytes/100 WBC (Bld) 2 % High 0-1 [facility] CBC W/Diff, Automatedon 07-15 Absolute Lymph 1.19 X10 3/uL Normal 0.83-4.51 [facility] Comment on above: Performed By: #### L 100.0100, L500.4050 ####[facility] [address] [place], [address] Absolute Neut 4.6 X10 3/uL Normal 2.0-7.7 [facility] Comment on above: Performed By: #### L 100.0100, L500.4050 ####[facility] [address] [place], [address] Comprehensive Metabolic Prof ilon 08-03-2025 Albumin [Mass/Vol] 3.0 g/dL Low 3.4-4.8 [facility] Comment on above: Performed By: #### L 100.0100, L500.4050 ####[facility] [address] [place], [address] Albumin/Globulin [Mass ratio] 1.3 {ratio} Normal 0.9-2.4 [facility] Comment on above: Performed By: #### L 100.0100, L500.4050 ####[facility] [address] [place], [address] ALK PHOS 60 U/L Normal 40-129 [facility] Comment on above: Performed By: #### L 100.0100, L500.4050 ####[facility] [address] [place], [address] ALT [Catalytic activity/Vol] 15 U/L Normal <=46 [facility] Comment on above: Performed By: #### L 100.0100, L500.4050 ####[facility] [address] [place], [address] AST [Catalytic activity/Vol] 28 U/L Normal <=37 [facility] Comment on above: Performed By: #### L 100.0100, L500.4050 ####[facility] [address] [place], [address] Bilirubin [Mass/Vol] 0.53 mg/dL Normal 0.00-1.30 [facility] Comment on above: Performed By: #### L 100.0100, L500.4050 ####[facility] [address] [place], [address] BUN/CRE 9.1 RATIO Low 10-20 [facility] Comment on above: Performed By: #### L 100.0100, L500.4050 ####[facility] [address] [place], [address] Calcium [Mass/Vol] 7.7 mg/dL Normal 7.6-11.0 [facility] Comment on above: Performed By: #### L 100.0100, L500.4050 ####[facility] [address] [place], [address] Chloride [Moles/Vol] 101 mmol/L Normal 98-108 [facility] Comment on above: Performed By: #### L 100.0100, L500.4050 ####[facility] [address] [place], [address] CO2 [Moles/Vol] 24.4 mmol/L Normal 21.0-32.0 [facility] Comment on above: Performed By: #### L 100.0100, L500.4050 ####[facility] [address] [place], [address] Creatinine [Mass/Vol] 1.03 mg/dL Normal 0.70-1.20 [facility] Comment on above: Performed By: #### L 100.0100, L500.4050 ####[facility] [address] [place], [address] ECRCL 54.42 ml/min Normal 50-250 [facility] Comment on above: Performed By: #### L 100.0100, L500.4050 ####[facility] [address] [place], [address] GAP 12 Normal 5-15 [facility] Comment on above: Performed By: #### L 100.0100, L500.4050 ####[facility] [address] [place], [address] GFR/1.73 sq M.predicted among non-blacks MDRD (S/P/Bld) [Vol rate/Area] 73 mL/min/{1.73_m2} Normal >60 [facility] Comment on above: Result Comment: mL/m in/1.73m2 CKD-EPI Creatinine Equation (2020) Performed By: #### L 100.0100, L500.4050 ####[facility] [address] [place], [address] Globulin (S) [Mass/Vol] 2.3 g/dL Normal 2.2-4.2 [facility] Comment on above: Performed By: #### L 100.0100, L500.4050 ####[facility] [address] [place], [address] Glucose [Mass/Vol] 101 mg/dL High 70-99 [facility] Comment on above: Performed By: #### L 100.0100, L500.4050 ####[facility] [address] [place], [address] Potassium [Moles/Vol] 2.7 mmol/L Invalid Interpretation Code 3.3-5.1 [facility] Comment on above: Result Comment: Crit ical Result(s) Called at 1348: by: DAVIDE WEIR. ??Results read back by same. Performed By: #### L 100.0100, L500.4050 ####[facility] [address] [place], [address] Sodium [Moles/Vol] 137 mmol/L Normal 133-145 [facility] Comment on above: Performed By: #### L 100.0100, L500.4050 ####[facility] [address] [place], [address] T PROT 5.4 g/dL Low 5.9-8.4 [facility] Comment on above: Performed By: #### L 100.0100, L500.4050 ####[facility] [address] [place], [address] Urea nitrogen [Mass/Vol] 9 mg/dL Normal 4-19 [facility] Comment on above: Performed By: #### L 100.0100, L500.4050 ####[facility] [address] [place], [address] Modified Barium Swallow Stud yon 08-03-2025 Modified Barium Swallow Study Normal [facility] No Panel InformationOrdered By: Dev Reardon on 08-03-2025 28 U/L <38 [facility] Serum globulin measurementOr dered By: Dev Reardon on 08-03-2025 Globulin (S) [Mass/Vol] 2.3 g/dL 2.2-4.2 [facility] Serum or plasma alanine macias otransferase (ALT) measurementOrdered By: Dev Reardon on 08-03-2025 ALT [Catalytic activity/Vol] 15 U/L <47 [facility] Serum or plasma albumin shanita urement (mass/volume)Ordered By: Dev Reardon on 08-03-2025 Albumin [Mass/Vol] 3.0 g/dL Low 3.4-4.8 [facility] Serum or plasma albumin/glob ulin mass ratioOrdered By: Dev Reardon on 08-03-2025 Albumin/Globulin [Mass ratio] 1.3 {ratio} 0.9-2.4 [facility] Serum or plasma alkaline tobin sphatase measurementOrdered By: Dev Reardon on 08-03-2025 ALP [Catalytic activity/Vol] 60 U/L 40-129 [facility] Total proteinOrdered By: Kilo Reardon on 08-03-2025 Protein [Mass/Vol] 5.4 g/dL Low 5.9-8.4 [facility] Automated lymphocyte count a s percentage of total leukocytesOrdered By: Dev Reardon on 08-02-2025 Lymphocytes/100 WBC Auto (Unsp spec) 18.7 % Low 19-41 [facility] Basophil percentageOrdered B y: Dev Reardon on 08-02-2025 Basophils/100 WBC (Bld) 2.6 % High 0-1 [facility] Blood manual differential co mment interpretation (narrative result)Ordered By: Dev Reardon on 08-02-2025 Manual differential comment Bill (Bld) [Interp] SCANNED [facility] CBC W/Diff, Automatedon 07-15 PATH REV N/A Normal [facility] Comment on above: Result Comment: AMENDED REPORT 08/02/25 5042 PATH REV previously reported as: February Performed By: #### L 503.0106, L506.0200, L501.3620, L100.0100, L500.4050 ####[facility] [address] [place], [address] PATH REV Reviewed Normal [facility] Comment on above: Result Comment: LEUK OPENIA WITH NEUTROPENIA AND ABSOLUTE LYMPHOPENIA TOXICGRANULATION NOTED. THE MANUAL DIFFERENTIAL COUNT CONFIRMS TOAUTOMATED DIFFERENTIAL.NORMOCYTIC NORMOCHROMIC ANEMIA WITH RARE ACANTHOCYTES NOTED.THROMBOCYTOPENIA, ADEQUATE FOR HEMOSTASIS.Ginette Jacobs MD 08/02/2025 AMENDED REPORT 08/02/25 2019 PATH REV previously reported as: February Performed By: #### L 300.3900, L100.0100, L500.4050, L300.4310, L503.6005, M200.1000 ####[facility] [address] [place], [address] SMEAR COMMENT SCANNED Normal [facility] Comment on above: Result Comment: LYMP HOPENIA NOTED Performed By: #### L 500.4050, L100.0100 ####[facility] [address] [place], [address] Absolute Neut Normal 2.0-7.7 [facility] Comment on above: Result Comment: NO S PECIMEN COLLECTED Performed By: #### L 100.0100, L500.4050 ####[facility] [address] [place], [address] HCT Normal 40-54 [facility] Comment on above: Result Comment: NO S PECIMEN COLLECTED Performed By: #### L 100.0100, L500.4050 ####[facility] [address] [place], [address] HGB Normal 13.0-16.5 [facility] Comment on above: Result Comment: NO S PECIMEN COLLECTED Performed By: #### L 100.0100, L500.4050 ####[facility] [address] [place], [address] MCH Normal 27.0-32.0 [facility] Comment on above: Result Comment: NO S PECIMEN COLLECTED Performed By: #### L 100.0100, L500.4050 ####[facility] [address] [place], [address] MCHC Normal 32-36 [facility] Comment on above: Result Comment: NO S PECIMEN COLLECTED Performed By: #### L 100.0100, L500.4050 ####[facility] [address] [place], [address] MCV Normal 80-94 [facility] Comment on above: Result Comment: NO S PECIMEN COLLECTED Performed By: #### L 100.0100, L500.4050 ####[facility] [address] [place], [address] NEUT% Normal 47-70 [facility] Comment on above: Result Comment: NO S PECIMEN COLLECTED Performed By: #### L 100.0100, L500.4050 ####[facility] [address] [place], [address] PLT Normal 150-450 [facility] Comment on above: Result Comment: NO S PECIMEN COLLECTED Performed By: #### L 100.0100, L500.4050 ####[facility] [address] [place], [address] RBC Normal 4.6-6.2 [facility] Comment on above: Result Comment: NO S PECIMEN COLLECTED Performed By: #### L 100.0100, L500.4050 ####[facility] [address] [place], [address] RDW CV Normal 11.6-14.6 [facility] Comment on above: Result Comment: NO S PECIMEN COLLECTED Performed By: #### L 100.0100, L500.4050 ####[facility] [address] [place], [address] RDW SD Normal 35.1-43.9 [facility] Comment on above: Result Comment: NO S PECIMEN COLLECTED Performed By: #### L 100.0100, L500.4050 ####[facility] [address] [place], [address] WBC Normal 4.4-11.0 [facility] Comment on above: Result Comment: NO S PECIMEN COLLECTED Performed By: #### L 100.0100, L500.4050 ####[facility] [address] [place], [address] Comprehensive Metabolic Prof gaon 08-02-2025 Albumin [Mass/Vol] 2.6 g/dL Low 3.4-4.8 [facility] Comment on above: Performed By: #### L 500.4050, L100.0100 ####[facility] [address] [place], [address] Albumin/Globulin [Mass ratio] 1.2 {ratio} Normal 0.9-2.4 [facility] Comment on above: Performed By: #### L 500.4050, L100.0100 ####[facility] [address] [place], [address] ALK PHOS 47 U/L Normal 40-129 [facility] Comment on above: Performed By: #### L 500.4050, L100.0100 ####[facility] [address] [place], [address] ALT [Catalytic activity/Vol] 6 U/L Normal <=46 [facility] Comment on above: Performed By: #### L 500.4050, L100.0100 ####[facility] [address] [place], [address] AST [Catalytic activity/Vol] 16 U/L Normal <=37 [facility] Comment on above: Performed By: #### L 500.4050, L100.0100 ####[facility] [address] [place], [address] Bilirubin [Mass/Vol] 0.48 mg/dL Normal 0.00-1.30 [facility] Comment on above: Performed By: #### L 500.4050, L100.0100 ####[facility] [address] [place], [address] BUN/CRE 15.9 RATIO Normal 10-20 [facility] Comment on above: Performed By: #### L 500.4050, L100.0100 ####[facility] [address] [place], [address] Calcium [Mass/Vol] 7.3 mg/dL Low 7.6-11.0 [facility] Comment on above: Performed By: #### L 500.4050, L100.0100 ####[facility] [address] [place], [address] Chloride [Moles/Vol] 103 mmol/L Normal 98-108 [facility] Comment on above: Performed By: #### L 500.4050, L100.0100 ####[facility] [address] [place], [address] CO2 [Moles/Vol] 24.6 mmol/L Normal 21.0-32.0 [facility] Comment on above: Performed By: #### L 500.4050, L100.0100 ####[facility] [address] [place], [address] Creatinine [Mass/Vol] 0.80 mg/dL Normal 0.70-1.20 [facility] Comment on above: Performed By: #### L 500.4050, L100.0100 ####[facility] [address] [place], [address] ECRCL 70.06 ml/min Normal 50-250 [facility] Comment on above: Performed By: #### L 500.4050, L100.0100 ####[facility] [address] [place], [address] GAP 8 Normal 5-15 [facility] Comment on above: Performed By: #### L 500.4050, L100.0100 ####[facility] [address] [place], [address] GFR/1.73 sq M.predicted among non-blacks MDRD (S/P/Bld) [Vol rate/Area] 89 mL/min/{1.73_m2} Normal >60 [facility] Comment on above: Result Comment: mL/m in/1.73m2 CKD-EPI Creatinine Equation (2020) Performed By: #### L 500.4050, L100.0100 ####[facility] [address] [place], [address] Globulin (S) [Mass/Vol] 2.1 g/dL Low 2.2-4.2 [facility] Comment on above: Performed By: #### L 500.4050, L100.0100 ####[facility] [address] [place], [address] Glucose [Mass/Vol] 111 mg/dL High 70-99 [facility] Comment on above: Performed By: #### L 500.4050, L100.0100 ####[facility] [address] [place], [address] Potassium [Moles/Vol] 2.9 mmol/L Low 3.3-5.1 [facility] Comment on above: Performed By: #### L 500.4050, L100.0100 ####[facility] [address] [place], [address] Sodium [Moles/Vol] 136 mmol/L Normal 133-145 [facility] Comment on above: Performed By: #### L 500.4050, L100.0100 ####[facility] [address] [place], [address] T PROT 4.7 g/dL Low 5.9-8.4 [facility] Comment on above: Performed By: #### L 500.4050, L100.0100 ####[facility] [address] [place], [address] Urea nitrogen [Mass/Vol] 13 mg/dL Normal 4-19 [facility] Comment on above: Performed By: #### L 500.4050, L100.0100 ####[facility] [address] [place], [address] ALB Normal 3.4-4.8 [facility] Comment on above: Result Comment: NO S PECIMEN COLLECTED Performed By: #### L 100.0100, L500.4050 ####[facility] [address] [place], [address] ALK PHOS Normal 40-129 [facility] Comment on above: Result Comment: NO S PECIMEN COLLECTED Performed By: #### L 100.0100, L500.4050 ####[facility] [address] [place], [address] ALT Normal <=46 [facility] Comment on above: Result Comment: NO S PECIMEN COLLECTED Performed By: #### L 100.0100, L500.4050 ####[facility] [address] [place], [address] AST Normal <=37 [facility] Comment on above: Result Comment: NO S PECIMEN COLLECTED Performed By: #### L 100.0100, L500.4050 ####[facility] [address] [place], [address] BUN Normal 4-19 [facility] Comment on above: Result Comment: NO S PECIMEN COLLECTED Performed By: #### L 100.0100, L500.4050 ####[facility] [address] [place], [address] BUN/CRE Normal 10-20 [facility] Comment on above: Result Comment: NO S PECIMEN COLLECTED Performed By: #### L 100.0100, L500.4050 ####[facility] [address] [place], [address] Calcium Normal 7.6-11.0 [facility] Comment on above: Result Comment: NO S PECIMEN COLLECTED Performed By: #### L 100.0100, L500.4050 ####[facility] [address] [place], [address] CL Normal 98-108 [facility] Comment on above: Result Comment: NO S PECIMEN COLLECTED Performed By: #### L 100.0100, L500.4050 ####[facility] [address] [place], [address] CO2 Normal 21.0-32.0 [facility] Comment on above: Result Comment: NO S PECIMEN COLLECTED Performed By: #### L 100.0100, L500.4050 ####[facility] [address] [place], [address] CREAT,SERUM Normal 0.70-1.20 [facility] Comment on above: Result Comment: NO S PECIMEN COLLECTED Performed By: #### L 100.0100, L500.4050 ####[facility] [address] [place], [address] eGFR Normal >60 [facility] Comment on above: Result Comment: NO S PECIMEN COLLECTED Performed By: #### L 100.0100, L500.4050 ####[facility] [address] [place], [address] GAP Normal 5-15 [facility] Comment on above: Result Comment: NO S PECIMEN COLLECTED Performed By: #### L 100.0100, L500.4050 ####[facility] [address] [place], [address] GLU Normal 70-99 [facility] Comment on above: Result Comment: NO S PECIMEN COLLECTED Performed By: #### L 100.0100, L500.4050 ####[facility] [address] [place], [address] Potassium Normal 3.3-5.1 [facility] Comment on above: Result Comment: NO S PECIMEN COLLECTED Performed By: #### L 100.0100, L500.4050 ####[facility] [address] [place], [address] T BILI Normal 0.00-1.30 [facility] Comment on above: Result Comment: NO S PECIMEN COLLECTED Performed By: #### L 100.0100, L500.4050 ####[facility] [address] [place], [address] T PROT Normal 5.9-8.4 [facility] Comment on above: Result Comment: NO S PECIMEN COLLECTED Performed By: #### L 100.0100, L500.4050 ####[facility] [address] [place], [address] Comprehensive Metabolic Profil Normal 133-145 [facility] Comment on above: Result Comment: NO S PECIMEN COLLECTED Performed By: #### L 100.0100, L500.4050 ####[facility] [address] [place], [address] Consultation - Infectious Dx on 08-02-2025 Consultation - Infectious Dx Normal [facility] Consultation - Oncology IPon 08-02-2025 Consultation - Oncology IP Normal [facility] Culture, Blood (WB)on 2024 CUB Blood cultures x2, f rom two different sites No growth in 5 days. Normal [facility] Comment on above: Performed By: #### L 300.3900, L100.0100, L500.4050, L300.4310, L503.6005, M200.1000 ####[facility] [address] [place], [address] Electrocardiogram reportOrde red By: Kiran Sarkar on 08-02-2025 EKG study [facility] Other Phone: [phone] EKG study [facility] Other Phone: [phone] Eosinophil percentageOrdered By: Dve Reardon on 08-02-2025 Eosinophils/100 WBC (Bld) 1.7 % 0-5 [facility] Immature granulocytes/100 WB C Auto (Bld)Ordered By: Dev Reardon on 08-02-2025 Immature granulocytes/100 WBC (Bld) 1.300 % High 0.0-0.9 [facility] M8200.1000on 08-02-2025 M8200.1000 Negative Normal [facility] Comment on above: Performed By: #### M 8200.1000 ####[facility] [address] [place], [place], [address] Monocyte percentageOrdered B y: Dev Reardon on 08-02-2025 Monocytes/100 WBC (Bld) 19.6 % High 0-10 [facility] Nasal methicillin resistant Staphylococcus aureus (MRSA) DNA detection by PCROrdered By: Dev Reardon on 08-02-2025 MRSA DNA DEMIAN+probe Ql (Nose) [facility] MRSA DNA DEMIAN+probe Ql (Nose) [facility] Trough vancomycin levelOrder ed By: Dev Reardon on 08-02-2025 Vancomycin trough [Mass/Vol] 14.3 ug/mL 5.0-15.0 [facility] Vancomycin, Trough Levelon 1 VANCO, TROUGH 14.3 ug/mL Normal 5.0-15.0 [facility] Comment on above: Order Comment: Comme nts: Trough to be drawn 30 mins prior to scheduled [id number] Result Comment: Pepe mmended goal trough ranges [...] therapy recommended for serious lifethreatening infections include:- Rzvnmwdxxn-Zhpgdccgjqdf-Wajyuaouc (Ventilator/Healtcare Associated)-SepsisPLEASE CONTACT PHARMACY SERVICES (#6131) FOR INTERPRETATIONOF RESULTS. Performed By: #### L 501.8820 ####[facility] [address] [place], [address] Basic Metabolic Profile (BMP )on 08-01-2025 BUN/CRE 14.7 RATIO Normal 08-02 [facility] Comment on above: Performed By: #### L 501.2300, L501.5200, L500.2500 ####[facility] [address] [place], [address] Calcium [Mass/Vol] 7.8 mg/dL Normal 7.6-11.0 [facility] Comment on above: Performed By: #### L 501.2300, L501.5200, L500.2500 ####[facility] [address] [place], [address] Chloride [Moles/Vol] 102 mmol/L Normal 98-108 [facility] Comment on above: Performed By: #### L 501.2300, L501.5200, L500.2500 ####[facility] [address] [place], [address] CO2 [Moles/Vol] 22.7 mmol/L Normal 21.0-32.0 [facility] Comment on above: Performed By: #### L 501.2300, L501.5200, L500.2500 ####[facility] [address] [place], [address] Creatinine [Mass/Vol] 0.75 mg/dL Normal 0.70-1.20 [facility] Comment on above: Performed By: #### L 501.2300, L501.5200, L500.2500 ####[facility] [address] [place], [address] ECRCL 70.06 ml/min Normal 50-250 [facility] Comment on above: Performed By: #### L 501.2300, L501.5200, L500.2500 ####[facility] [address] [place], [address] GAP 10 Normal 5-15 [facility] Comment on above: Performed By: #### L 501.2300, L501.5200, L500.2500 ####[facility] [address] [place], [address] GFR/1.73 sq M.predicted among non-blacks MDRD (S/P/Bld) [Vol rate/Area] 91 mL/min/{1.73_m2} Normal >60 [facility] Comment on above: Result Comment: mL/m in/1.73m2 CKD-EPI Creatinine Equation (2020) Performed By: #### L 501.2300, L501.5200, L500.2500 ####[facility] [address] [place], [address] Glucose [Mass/Vol] 100 mg/dL High 70-99 [facility] Comment on above: Performed By: #### L 501.2300, L501.5200, L500.2500 ####[facility] [address] [place], [address] Potassium [Moles/Vol] 3.2 mmol/L Low 3.3-5.1 [facility] Comment on above: Performed By: #### L 501.2300, L501.5200, L500.2500 ####[facility] [address] [place], [address] Sodium [Moles/Vol] 135 mmol/L Normal 133-145 [facility] Comment on above: Performed By: #### L 501.2300, L501.5200, L500.2500 ####[facility] [address] [place], [address] Urea nitrogen [Mass/Vol] 11 mg/dL Normal 4-19 [facility] Comment on above: Performed By: #### L 501.2300, L501.5200, L500.2500 ####[facility] [address] [place], [address] Blood eosinophils/100 leukoc ytesOrdered By: Dev Reardon on 08-01-2025 Eosinophils/100 WBC (Bld) 3 % 0-5 [facility] CPK Total, Creatine Kinaseon 08-01-2025 CPK TOTAL 51 U/L Normal 24-195 [facility] Comment on above: Performed By: #### L 503.0106, L506.0200, L501.3620, L100.0100, L500.4050 ####[facility] [address] [place], [address] Comprehensive Metabolic Prof ilon 08-01-2025 Albumin [Mass/Vol] 2.6 g/dL Low 3.4-4.8 [facility] Comment on above: Performed By: #### L 503.0106, L506.0200, L501.3620, L100.0100, L500.4050 ####[facility] [address] [place], [address] Albumin/Globulin [Mass ratio] 1.2 {ratio} Normal 0.9-2.4 [facility] Comment on above: Performed By: #### L 503.0106, L506.0200, L501.3620, L100.0100, L500.4050 ####[facility] [address] [place], [address] ALK PHOS 47 U/L Normal 40-129 [facility] Comment on above: Performed By: #### L 503.0106, L506.0200, L501.3620, L100.0100, L500.4050 ####[facility] [address] [place], [address] ALT [Catalytic activity/Vol] U/L Normal <=46 [facility] Comment on above: Performed By: #### L 503.0106, L506.0200, L501.3620, L100.0100, L500.4050 ####[facility] [address] [place], [address] AST [Catalytic activity/Vol] 17 U/L Normal <=37 [facility] Comment on above: Performed By: #### L 503.0106, L506.0200, L501.3620, L100.0100, L500.4050 ####[facility] [address] [place], [address] Bilirubin [Mass/Vol] 0.55 mg/dL Normal 0.00-1.30 [facility] Comment on above: Performed By: #### L 503.0106, L506.0200, L501.3620, L100.0100, L500.4050 ####[facility] [address] [place], [address] BUN/CRE 16.7 RATIO Normal 10-20 [facility] Comment on above: Performed By: #### L 503.0106, L506.0200, L501.3620, L100.0100, L500.4050 ####[facility] [address] [place], [address] Calcium [Mass/Vol] 7.7 mg/dL Normal 7.6-11.0 [facility] Comment on above: Performed By: #### L 503.0106, L506.0200, L501.3620, L100.0100, L500.4050 ####[facility] [address] [place], [address] Chloride [Moles/Vol] 101 mmol/L Normal 98-108 [facility] Comment on above: Performed By: #### L 503.0106, L506.0200, L501.3620, L100.0100, L500.4050 ####[facility] [address] [place], [address] CO2 [Moles/Vol] 23.7 mmol/L Normal 21.0-32.0 [facility] Comment on above: Performed By: #### L 503.0106, L506.0200, L501.3620, L100.0100, L500.4050 ####[facility] [address] [place], [address] Creatinine [Mass/Vol] 0.72 mg/dL Normal 0.70-1.20 [facility] Comment on above: Performed By: #### L 503.0106, L506.0200, L501.3620, L100.0100, L500.4050 ####[facility] [address] [place], [address] ECRCL 70.06 ml/min Normal 50-250 [facility] Comment on above: Performed By: #### L 503.0106, L506.0200, L501.3620, L100.0100, L500.4050 ####[facility] [address] [place], [address] GAP 10 Normal 5-15 [facility] Comment on above: Performed By: #### L 503.0106, L506.0200, L501.3620, L100.0100, L500.4050 ####[facility] [address] [place], [address] GFR/1.73 sq M.predicted among non-blacks MDRD (S/P/Bld) [Vol rate/Area] 92 mL/min/{1.73_m2} Normal >60 [facility] Comment on above: Result Comment: mL/m in/1.73m2 CKD-EPI Creatinine Equation (2020) Performed By: #### L 503.0106, L506.0200, L501.3620, L100.0100, L500.4050 ####[facility] [address] [place], [address] Globulin (S) [Mass/Vol] 2.1 g/dL Low 2.2-4.2 [facility] Comment on above: Performed By: #### L 503.0106, L506.0200, L501.3620, L100.0100, L500.4050 ####[facility] [address] [place], [address] Glucose [Mass/Vol] 106 mg/dL High 70-99 [facility] Comment on above: Performed By: #### L 503.0106, L506.0200, L501.3620, L100.0100, L500.4050 ####[facility] [address] [place], [address] Potassium [Moles/Vol] 2.6 mmol/L Invalid Interpretation Code 3.3-5.1 [facility] Comment on above: Result Comment: Crit ical Result(s) Called at 08/01/2025-05:12 by Curtis Natarajan??Results read back by same. Performed By: #### L 503.0106, L506.0200, L501.3620, L100.0100, L500.4050 ####[facility] [address] [place], [address] Sodium [Moles/Vol] 135 mmol/L Normal 133-145 [facility] Comment on above: Performed By: #### L 503.0106, L506.0200, L501.3620, L100.0100, L500.4050 ####[facility] [address] [place], [address] T PROT 4.8 g/dL Low 5.9-8.4 [facility] Comment on above: Performed By: #### L 503.0106, L506.0200, L501.3620, L100.0100, L500.4050 ####[facility] [address] [place], [address] Urea nitrogen [Mass/Vol] 12 mg/dL Normal 01-30 [facility] Comment on above: Performed By: #### L 503.0106, L506.0200, L501.3620, L100.0100, L500.4050 ####[facility] [address] [place], [address] Crenated erythrocyte detecti on by light microscopyOrdered By: Dev Reardon on 08-01-2025 Chema cells LM Ql (Bld) 1+ [facility] Folate [Moles/volume] in Ser um or PlasmaOrdered By: Dev Reardon on 08-01-2025 Folate [Moles/Vol] 7.55 ng/mL 4.60-34.80 [facility] Folates,Serum (Folic Acid)on 08-01-2025 FOLATES,SERUM 7.55 ng/mL Normal 4.60-34.80 [facility] Comment on above: Result Comment: Hemo lysis, Results will be affected, Requires Recollection. Performed By: #### L 503.0106, L506.0200, L501.3620, L100.0100, L500.4050 ####[facility] [address] [place], [address] Magnesiumon 08-01-2025 Magnesium [Mass/Vol] 1.7 mg/dL Normal 1.5-2.2 [facility] Comment on above: Performed By: #### L 501.2300, L501.5200, L500.2500 ####[facility] [address] [place], [place], [id number] Magnesium measurement (mass/ volume)Ordered By: Dev Reardon on 08-01-2025 Magnesium (Unsp spec) [Mass/Vol] 1.7 mg/dL 1.5-2.2 [facility] Phosphoruson 08-01-2025 Phosphate [Mass/Vol] 1.7 mg/dL Low 2.7-4.5 [facility] Comment on above: Performed By: #### L 501.2300, L501.5200, L500.2500 ####[facility] [address] [place], [address] Serum or plasma creatine kin ase activityOrdered By: Dev Reardon on 08-01-2025 CK [Catalytic activity/Vol] 51 U/L 24-195 [facility] Vancomycin, Trough Levelon 1 VANCO, TROUGH 9.0 ug/mL Normal 5.0-15.0 [facility] Comment on above: Order Comment: Comme nts: Trough to be drawn 30 mins prior to scheduled [id number] Result Comment: Pepe mmended goal trough ranges [...] therapy recommended for serious lifethreatening infections include:- Vslyavxlhc-Johfujbstarq-Kckkpnzuw (Ventilator/Healtcare Associated)-SepsisPLEASE CONTACT PHARMACY SERVICES (#[id number]) FOR INTERPRETATIONOF RESULTS. Performed By: #### L 501.8820 ####[facility] [address] [place], [address] Vitamin B12on 08-01-2025 Cobalamin (Vitamin B12) [Mass/Vol] 587 pg/mL Normal 180-914 [facility] Comment on above: Performed By: #### L 503.0106, L506.0200, L501.3620, L100.0100, L500.4050 ####[facility] [address] [place], [address] Vitamin B12 ser/plasOrdered By: Dev Reardon on 08-01-2025 Cobalamin (Vitamin B12) [Mass/Vol] 587 pg/mL 180-914 [facility] Basic Metabolic Profile (BMP )on 07-31-2025 BUN/CRE 17.8 RATIO Normal 08-02 [facility] Comment on above: Performed By: #### L 100.0100, L500.2500 ####[facility] [address] [place], [address] Calcium [Mass/Vol] 6.9 mg/dL Low 7.6-11.0 [facility] Comment on above: Performed By: #### L 100.0100, L500.2500 ####[facility] [address] [place], [address] Chloride [Moles/Vol] 105 mmol/L Normal 98-108 [facility] Comment on above: Performed By: #### L 100.0100, L500.2500 ####[facility] [address] [place], [address] CO2 [Moles/Vol] 23.9 mmol/L Normal 21.0-32.0 [facility] Comment on above: Performed By: #### L 100.0100, L500.2500 ####[facility] [address] [place], [address] Creatinine [Mass/Vol] 0.70 mg/dL Normal 0.70-1.20 [facility] Comment on above: Performed By: #### L 100.0100, L500.2500 ####[facility] [address] [place], [address] ECRCL 70.06 ml/min Normal 50-250 [facility] Comment on above: Performed By: #### L 100.0100, L500.2500 ####[facility] [address] [place], [address] GAP 9 Normal 5-15 [facility] Comment on above: Performed By: #### L 100.0100, L500.2500 ####[facility] [address] [place], [address] GFR/1.73 sq M.predicted among non-blacks MDRD (S/P/Bld) [Vol rate/Area] 93 mL/min/{1.73_m2} Normal >60 [facility] Comment on above: Result Comment: mL/m in/1.73m2 CKD-EPI Creatinine Equation (2020) Performed By: #### L 100.0100, L500.2500 ####[facility] [address] [place], [address] Glucose [Mass/Vol] 110 mg/dL High 70-99 [facility] Comment on above: Performed By: #### L 100.0100, L500.2500 ####[facility] [address] [place], [address] Potassium [Moles/Vol] 3.0 mmol/L Low 3.3-5.1 [facility] Comment on above: Performed By: #### L 100.0100, L500.2500 ####[facility] [address] [place], [address] Sodium [Moles/Vol] 138 mmol/L Normal 133-145 [facility] Comment on above: Performed By: #### L 100.0100, L500.2500 ####[facility] [address] [place], [address] Urea nitrogen [Mass/Vol] 12 mg/dL Normal 4-19 [facility] Comment on above: Performed By: #### L 100.0100, L500.2500 ####[facility] [address] [place], [address] CBC W/Diff, Automatedon 07-14 CHEMA CELLS 1+ Normal [facility] Comment on above: Performed By: #### L 100.0100, L500.2500 ####[facility] [address] [place], [address] SMEAR COMMENT SCANNED Normal [facility] Comment on above: Result Comment: NEUT ROPENIA PRESENTLYMPHOPENIA PRESENTLEUKOCYTOPENIA PRESENTLEFT SHIFT: BANDS PRESENT 3+ Performed By: #### L 100.0100, L500.2500 ####[facility] [address] [place], [address] Consultation - Intensiviston 07-31-2025 Consultation - Sash Maker Normal [facility] RESPIRATORY PANEL MOLECULARo n 07-31-2025 RP PANEL Normal [facility] Comment on above: Performed By: #### M 100.638 ####[facility] [address] [place], [address] Urine Cultureon 07-31-2025 URC Culture exhibits no growth. Normal [facility] Comment on above: Performed By: #### L 400.0001, M100.2200 ####[facility] [address] [place], [address] 12 Lead EKGon 07-30-2025 12 Lead EKG Normal [facility] Activated partial thrombopla stin time (aPTT) in platelet poor plasma by coagulation aOrdered By: Trevor Nguyen on 07-30-2025 aPTT Coag (PPP) [Time] 30.3 s 24.1-36.2 [facility] Bilirubin Test strip Ql (U)O rdered By: Trevor Nguyen on 07-30-2025 Bilirubin Ql (U) Negative Negative [facility] Blood cultureOrdered By: Trevor Nguyen on 07-30-2025 Bacteria identified Cx Nom (Bld) No growth in 5 days. [facility] Bacteria identified Cx Nom (Bld) No growth in 5 days. [facility] Bacteria identified Cx Nom (Bld) No growth in 5 days. [facility] Bacteria identified Cx Nom (Bld) No growth in 5 days. [facility] CTA Chest W/WO Contraston CTA Chest W/WO Contrast Normal [facility] Chest 1 View (Portable)on Chest 1 View (Portable) Normal [facility] Comprehensive Metabolic Prof ilon 07-30-2025 Albumin [Mass/Vol] 3.4 g/dL Normal 3.4-4.8 [facility] Comment on above: Performed By: #### L 300.3900, L100.0100, L500.4050, L300.4310, L503.6005, M200.1000 ####[facility] [address] [place], [address] Albumin/Globulin [Mass ratio] 1.3 {ratio} Normal 0.9-2.4 [facility] Comment on above: Performed By: #### L 300.3900, L100.0100, L500.4050, L300.4310, L503.6005, M200.1000 ####[facility] [address] [place], [address] ALK PHOS 58 U/L Normal 40-129 [facility] Comment on above: Performed By: #### L 300.3900, L100.0100, L500.4050, L300.4310, L503.6005, M200.1000 ####[facility] [address] [place], [address] ALT [Catalytic activity/Vol] 8 U/L Normal <=46 [facility] Comment on above: Performed By: #### L 300.3900, L100.0100, L500.4050, L300.4310, L503.6005, M200.1000 ####[facility] [address] [place], [address] AST [Catalytic activity/Vol] 26 U/L Normal <=37 [facility] Comment on above: Performed By: #### L 300.3900, L100.0100, L500.4050, L300.4310, L503.6005, M200.1000 ####[facility] [address] [place], [address] Bilirubin [Mass/Vol] 0.66 mg/dL Normal 0.00-1.30 [facility] Comment on above: Performed By: #### L 300.3900, L100.0100, L500.4050, L300.4310, L503.6005, M200.1000 ####[facility] [address] [place], [address] BUN/CRE 26.7 RATIO High 10-20 [facility] Comment on above: Performed By: #### L 300.3900, L100.0100, L500.4050, L300.4310, L503.6005, M200.1000 ####[facility] [address] [place], [address] Calcium [Mass/Vol] 8.1 mg/dL Normal 7.6-11.0 [facility] Comment on above: Performed By: #### L 300.3900, L100.0100, L500.4050, L300.4310, L503.6005, M200.1000 ####[facility] [address] [place], [address] Chloride [Moles/Vol] 97 mmol/L Low 98-108 [facility] Comment on above: Performed By: #### L 300.3900, L100.0100, L500.4050, L300.4310, L503.6005, M200.1000 ####[facility] [address] [place], [address] CO2 [Moles/Vol] 25.3 mmol/L Normal 21.0-32.0 [facility] Comment on above: Performed By: #### L 300.3900, L100.0100, L500.4050, L300.4310, L503.6005, M200.1000 ####[facility] [address] [place], [address] Creatinine [Mass/Vol] 0.81 mg/dL Normal 0.70-1.20 [facility] Comment on above: Performed By: #### L 300.3900, L100.0100, L500.4050, L300.4310, L503.6005, M200.1000 ####[facility] [address] [place], [address] ECRCL 69.20 ml/min Normal 50-250 [facility] Comment on above: Performed By: #### L 300.3900, L100.0100, L500.4050, L300.4310, L503.6005, M200.1000 ####[facility] [address] [place], [address] GAP 10 Normal 5-15 [facility] Comment on above: Performed By: #### L 300.3900, L100.0100, L500.4050, L300.4310, L503.6005, M200.1000 ####[facility] [address] [place], [address] GFR/1.73 sq M.predicted among non-blacks MDRD (S/P/Bld) [Vol rate/Area] 88 mL/min/{1.73_m2} Normal >60 [facility] Comment on above: Result Comment: mL/m in/1.73m2 CKD-EPI Creatinine Equation (2020) Performed By: #### L 300.3900, L100.0100, L500.4050, L300.4310, L503.6005, M200.1000 ####[facility] [address] [place], [address] Globulin (S) [Mass/Vol] 2.6 g/dL Normal 2.2-4.2 [facility] Comment on above: Performed By: #### L 300.3900, L100.0100, L500.4050, L300.4310, L503.6005, M200.1000 ####[facility] [address] [place], [address] Glucose [Mass/Vol] 110 mg/dL High 70-99 [facility] Comment on above: Performed By: #### L 300.3900, L100.0100, L500.4050, L300.4310, L503.6005, M200.1000 ####[facility] [address] [place], [address] Potassium [Moles/Vol] 3.4 mmol/L Normal 3.3-5.1 [facility] Comment on above: Performed By: #### L 300.3900, L100.0100, L500.4050, L300.4310, L503.6005, M200.1000 ####[facility] [address] [place], [address] Sodium [Moles/Vol] 133 mmol/L Normal 133-145 [facility] Comment on above: Performed By: #### L 300.3900, L100.0100, L500.4050, L300.4310, L503.6005, M200.1000 ####[facility] [address] [place], [address] T PROT 5.9 g/dL Normal 5.9-8.4 [facility] Comment on above: Performed By: #### L 300.3900, L100.0100, L500.4050, L300.4310, L503.6005, M200.1000 ####[facility] [address] [place], [address] Urea nitrogen [Mass/Vol] 22 mg/dL High - [facility] Comment on above: Performed By: #### L 300.3900, L100.0100, L500.4050, L300.4310, L503.6005, M200.1000 ####[facility] [address] [place], [address] D-Dimer Quantitative (DVT/PE )on 07-30-2025 D-DIMER QUANT 7.44 FEU/ug/m Invalid Interpretation Code 0.27-0.49 [facility] Comment on above: Result Comment: D-Di randell ELEVATED (>0.49): Additional studies and clinicalassessments are indicated to conclude diagnosis of:Deep Vein Thrombosis (DVT) or Pulmonary Embolism (PE)CRITICAL VALUE CALLED TO JANNET MORSE07/30/25 2204 Nellie Romero.RESULTS READ BACK BY SAME. Performed By: #### L 300.8000 ####[facility] [address] [place], [place], [address] Emergency Department Summary on 07-30-2025 Emergency Department Summary Normal [facility] H AND P Exam - Hospitaliston 07-30-2025 H&P Exam - Hospitalist Normal [facility] Ketones Test strip Ql (U)Ord ered By: Trevor Nguyen on 07-30-2025 Ketones Ql (U) 5 mg/dl High Negative [facility] Lactic Acidon 07-30-2025 Lactate [Moles/Vol] mmol/L Normal 0.0-2.0 [facility] Comment on above: Order Comment: Y Performed By: #### L 300.3900, L100.0100, L500.4050, L300.4310, L503.6005, M200.1000 ####[facility] [address] [place], [address] M R Staph Aureus DNA by PCRo n 07-30-2025 MRSA DNA ASSAY Negative Normal Negative [facility] Comment on above: Performed By: #### L 8200.1000 ####[facility] [address] [place], [address] Mucus LM Ql (Urine sed)Order ed By: Trevor Nguyen on 07-30-2025 Mucus Ql (Urine sed) 0 SEEN /hpf [facility] Nitrite Test strip Ql (U)Ord ered By: Trevor Nguyen on 07-30-2025 Nitrite Ql (U) Negative Negative [facility] Partial Thromboplast Timeon 07-30-2025 aPTT Coag (Bld) [Time] 30.3 s Normal 24.1-36.2 [facility] Comment on above: Performed By: #### L 300.3900, L100.0100, L500.4050, L300.4310, L503.6005, M200.1000 ####[facility] [address] [place], [address] Protein Test strip Ql (U)Ord ered By: Trevorvida Britto on 07-30-2025 Protein Ql (U) Negative Negative [facility] Prothrombin Time w/INRon INR Coag (PPP) [Relative time] 1.0 {INR} Normal [facility] Comment on above: Performed By: #### L 300.3900, L100.0100, L500.4050, L300.4310, L503.6005, M200.1000 ####[facility] [address] [place], [address] PT Coag (PPP) [Time] 13.8 s Normal 11.7-14.9 [facility] Comment on above: Performed By: #### L 300.3900, L100.0100, L500.4050, L300.4310, L503.6005, M200.1000 ####[facility] [address] [place], [address] Prothrombin timeOrdered By: Trevor Nguyen on 07-30-2025 PT Coag (PPP) [Time] 13.8 s 11.7-14.9 [facility] Respiratory pathogens detect ion panel by molecular detection methodOrdered By: Rain Gallagher on 07-30-2025 Respiratory pathogens DNA and RNA panel DEMIAN+probe (Resp) [facility] Respiratory pathogens DNA and RNA panel DEMIAN+probe (Resp) [facility] Squamous epithelial cells de tection in urine sediment by light microscopyOrdered By: Trevor Nguyen on 07-30-2025 Epithelial cells.squamous LM Ql (Urine sed) 0-5 SEEN /hpf 0-5 [facility] Urinalysis, Completeon 07-30 EPI,SQUAMOUS 0-5 SEEN Normal 0-5 [facility] Comment on above: Order Comment: MALIA CTOR TO SPECIFY Performed By: #### L 400.0001, M100.0 ####[facility] [address] [place], [address] RBC 0-5 SEEN Normal 0-5 [facility] Comment on above: Order Comment: MALIA CTOR TO SPECIFY Performed By: #### L 400.0001, M100.2200 ####[facility] [address] [place], [address] WBC 0-5 SEEN Normal 0-5 [facility] Comment on above: Order Comment: MALIA CTOR TO SPECIFY Performed By: #### L 400.0001, M100.2200 ####[facility] [address] [place], [address] BACTERIA 0 SEEN Normal None Seen [facility] Comment on above: Order Comment: MALIA CTOR TO SPECIFY Performed By: #### L 400.0001, M100.2200 ####[facility] [address] [place], [address] Mucus Ql (Urine sed) 0 SEEN Normal [facility] Comment on above: Order Comment: MALIA CTOR TO SPECIFY Performed By: #### L 400.0001, M100.2200 ####[facility] [address] [place], [address] Urine clarityOrdered By: Trevor Nguyen on 07-30-2025 Clarity (U) Clear Clear [facility] Urine color determinationOrd ered By: Trevor Nguyen on 07-30-2025 Color (U) Straw Yellow [facility] Urine cultureOrdered By: Trevorvida Nguyen on 07-30-2025 Bacteria identified Cx Nom (U) Culture exhibits no growth. [facility] Bacteria identified Cx Nom (U) Culture exhibits no growth. [facility] Urine glucose detectionOrder ed By: Trevor Nguyen on 07-30-2025 Glucose Ql (U) Normal mg/dl Normal [facility] Urine leukocyte esterase det ection by dipstickOrdered By: Trevor Nguyen on 07-30-2025 Leukocyte esterase Test strip Ql (U) Negative Negative [facility] Urine pHOrdered By: Trevor echols on 07-30-2025 pH (U) 7.0 [pH] 5.0 - 8.0 [facility] Urine sediment bacteria coun t by microscopy (number/high power field)Ordered By: Trevorvida Nguyen on 07-30-2025 Bacteria LM.HPF (Urine sed) [#/Area] 0 /[HPF] None Seen [facility] Urine specific gravity measu rementOrdered By: Trevorvida Nguyen on 07-30-2025 Specific gravity (U) [Rel density] 1.010 1.002-1.03 0 [facility] Urine urobilinogen measureme ntOrdered By: Trevor Nguyen on 07-30-2025 Urobilinogen Ql (U) Normal mg/dl Normal [facility] White blood cell countOrdere d By: Trevor Nguyen on 07-30-2025 White blood cell count 0-5 SEEN /hpf 0-5 [facility] Radiation Oncology Visiton 1 Radiation Oncology Visit Normal [facility] Absolute lymphocyte countOrd ered By: Simone Collins on 07-26-2025 Lymphocytes Auto (Unsp spec) [#/Vol] 0.44 10*3/uL Low 0.83-4.51 [facility] Anion gap in Serum or Plasma Ordered By: Simone Collins on 07-26-2025 Anion gap [Moles/Vol] 9 mmol/L 5-15 [facility] Automated lymphocyte count a s percentage of total leukocytesOrdered By: Simone Collins on 07-26-2025 Lymphocytes/100 WBC Auto (Unsp spec) 14.6 % Low 19-41 [facility] BUN/creatinine ratioOrdered By: Simone Collins on 07-26-2025 Urea nitrogen/Creatinine [Mass ratio] 16.1 mg/mg 10- [facility] Basophil percentageOrdered B y: Simone Collins on 07-26-2025 Basophils/100 WBC (Bld) 1.0 % 0-1 [facility] Bilirubin, totalOrdered By: Simone Collins on 07-26-2025 Bilirubin [Mass/Vol] 0.71 mg/dL 0.00-1.30 [facility] CBC W/Diff, Automatedon 07-14 Absolute Lymph 0.44 X10 3/uL Low 0.83-4.51 [facility] Comment on above: Performed By: #### L 100.0100, L500.4050 ####[facility] [address] [place], [address] Absolute Neut 2.0 X10 3/uL Normal 2.0-7.7 [facility] Comment on above: Performed By: #### L 100.0100, L500.4050 ####[facility] [address] [place], [address] Basophils/100 WBC (Bld) 1.0 % Normal 0-1 [facility] Comment on above: Performed By: #### L 100.0100, L500.4050 ####[facility] [address] [place], [address] Eosinophils/100 WBC (Bld) 0.0 % Normal 0-5 [facility] Comment on above: Performed By: #### L 100.0100, L500.4050 ####[facility] [address] [place], [address] Erythrocyte distribution width (RBC) [Ratio] 13.2 % Normal 11.6-14.6 [facility] Comment on above: Performed By: #### L 100.0100, L500.4050 ####[facility] [address] [place], [address] Hematocrit (Bld) [Volume fraction] 30.9 % Low 40-54 [facility] Comment on above: Performed By: #### L 100.0100, L500.4050 ####[facility] [address] [place], [address] Hemoglobin (Bld) [Mass/Vol] 10.7 g/dL Low 13.0-16.5 [facility] Comment on above: Performed By: #### L 100.0100, L500.4050 ####[facility] [address] [place], [address] IG% 0.700 Normal 0.0-0.9 [facility] Comment on above: Result Comment: IG% - Immature Granulocytes (promyelocytes, myelocytes andmetamyelocytes) > 1% indicates that a LEFT SHIFT is Present. Performed By: #### L 100.0100, L500.4050 ####[facility] [address] [place], [address] Lymphocytes/100 WBC (Bld) 14.6 % Low 19-41 [facility] Comment on above: Performed By: #### L 100.0100, L500.4050 ####[facility] [address] [place], [address] MCH (RBC) [Entitic mass] 29.9 pg Normal 27.0-32.0 [facility] Comment on above: Performed By: #### L 100.0100, L500.4050 ####[facility] [address] [place], [address] MCHC (RBC) [Mass/Vol] 34.6 g/dL Normal 32-36 [facility] Comment on above: Performed By: #### L 100.0100, L500.4050 ####[facility] [address] [place], [address] MCV (RBC) [Entitic vol] 86.3 fL Normal 80-94 [facility] Comment on above: Performed By: #### L 100.0100, L500.4050 ####[facility] [address] [place], [address] Monocytes/100 WBC (Bld) 16.9 % High 0-10 [facility] Comment on above: Performed By: #### L 100.0100, L500.4050 ####[facility] [address] [place], [address] Neutrophils/100 WBC (Bld) 66.8 % Normal 47-70 [facility] Comment on above: Performed By: #### L 100.0100, L500.4050 ####[facility] [address] [place], [address] Nucleated RBC (Bld) [#/Vol] 0 10*3/uL Normal 0-5 [facility] Comment on above: Performed By: #### L 100.0100, L500.4050 ####[facility] [address] [place], [address] Platelet mean volume (Bld) [Entitic vol] 9.3 fL Normal 6.2-12.0 [facility] Comment on above: Performed By: #### L 100.0100, L500.4050 ####[facility] [address] [place], [address] Platelets (Bld) [#/Vol] 183 10*3/uL Normal 150-450 [facility] Comment on above: Performed By: #### L 100.0100, L500.4050 ####[facility] [address] [place], [address] RBC (Bld) [#/Vol] 3.58 10*6/uL Low 4.6-6.2 [facility] Comment on above: Performed By: #### L 100.0100, L500.4050 ####[facility] [address] [place], [address] RDW SD 41.0 fl Normal 35.1-43.9 [facility] Comment on above: Performed By: #### L 100.0100, L500.4050 ####[facility] [address] [place], [address] WBC (Bld) [#/Vol] 3.0 10*3/uL Low 4.4-11.0 [facility] Comment on above: Performed By: #### L 100.0100, L500.4050 ####[facility] [address] [place], [address] Carbon dioxide, total [Moles /volume] in Central venous bloodOrdered By: Simone Collins on 07-26-2025 CO2 [Moles/Vol] 23.8 mmol/L 21.0-32.0 [facility] Chloride assayOrdered By: Yoon Collins on 07-26-2025 Chloride [Moles/Vol] 96 mmol/L Low 98-108 [facility] Comprehensive Metabolic Prof ilon 07-26-2025 Albumin [Mass/Vol] 3.4 g/dL Normal 3.4-4.8 [facility] Comment on above: Performed By: #### L 100.0100, L500.4050 ####[facility] [address] [place], [address] Albumin/Globulin [Mass ratio] 1.3 {ratio} Normal 0.9-2.4 [facility] Comment on above: Performed By: #### L 100.0100, L500.4050 ####[facility] [address] [place], [address] ALK PHOS 61 U/L Normal 40-129 [facility] Comment on above: Performed By: #### L 100.0100, L500.4050 ####[facility] [address] [place], [address] ALT [Catalytic activity/Vol] 10 U/L Normal <=46 [facility] Comment on above: Performed By: #### L 100.0100, L500.4050 ####[facility] [address] [place], [address] AST [Catalytic activity/Vol] 21 U/L Normal <=37 [facility] Comment on above: Performed By: #### L 100.0100, L500.4050 ####[facility] [address] [place], [address] Bilirubin [Mass/Vol] 0.71 mg/dL Normal 0.00-1.30 [facility] Comment on above: Performed By: #### L 100.0100, L500.4050 ####[facility] [address] [place], [address] BUN/CRE 16.1 RATIO Normal 10-20 [facility] Comment on above: Performed By: #### L 100.0100, L500.4050 ####[facility] [address] [place], [address] Calcium [Mass/Vol] 8.3 mg/dL Normal 7.6-11.0 [facility] Comment on above: Performed By: #### L 100.0100, L500.4050 ####[facility] [address] [place], [address] Chloride [Moles/Vol] 96 mmol/L Low 98-108 [facility] Comment on above: Performed By: #### L 100.0100, L500.4050 ####[facility] [address] [place], [address] CO2 [Moles/Vol] 23.8 mmol/L Normal 21.0-32.0 [facility] Comment on above: Performed By: #### L 100.0100, L500.4050 ####[facility] [address] [place], [address] Creatinine [Mass/Vol] 0.90 mg/dL Normal 0.70-1.20 [facility] Comment on above: Performed By: #### L 100.0100, L500.4050 ####[facility] [address] [place], [address] ECRCL 62.28 ml/min Normal 50-250 [facility] Comment on above: Performed By: #### L 100.0100, L500.4050 ####[facility] [address] [place], [address] GAP 9 Normal 5-15 [facility] Comment on above: Performed By: #### L 100.0100, L500.4050 ####[facility] [address] [place], [address] GFR/1.73 sq M.predicted among non-blacks MDRD (S/P/Bld) [Vol rate/Area] 86 mL/min/{1.73_m2} Normal >60 [facility] Comment on above: Result Comment: mL/m in/1.73m2 CKD-EPI Creatinine Equation (2020) Performed By: #### L 100.0100, L500.4050 ####[facility] [address] [place], [address] Globulin (S) [Mass/Vol] 2.7 g/dL Normal 2.2-4.2 [facility] Comment on above: Performed By: #### L 100.0100, L500.4050 ####[facility] [address] [place], [address] Glucose [Mass/Vol] 136 mg/dL High 70-99 [facility] Comment on above: Performed By: #### L 100.0100, L500.4050 ####[facility] [address] [place], [address] Potassium [Moles/Vol] 3.4 mmol/L Normal 3.3-5.1 [facility] Comment on above: Performed By: #### L 100.0100, L500.4050 ####[facility] [address] [place], [address] Sodium [Moles/Vol] 129 mmol/L Low 133-145 [facility] Comment on above: Performed By: #### L 100.0100, L500.4050 ####[facility] [address] [place], [address] T PROT 6.0 g/dL Normal 5.9-8.4 [facility] Comment on above: Performed By: #### L 100.0100, L500.4050 ####[facility] [address] [place], [address] Urea nitrogen [Mass/Vol] 15 mg/dL Normal 4-19 [facility] Comment on above: Performed By: #### L 100.0100, L500.4050 ####[facility] [address] [place], [address] Eosinophil percentageOrdered By: Simone Collins on 07-26-2025 Eosinophils/100 WBC (Bld) 0.0 % 0-5 [facility] Erythrocyte distribution wid th ratioOrdered By: Simone Collins on 07-26-2025 Erythrocyte distribution width (RBC) [Ratio] 13.2 % 11.6-14.6 [facility] Erythrocyte distribution wid th standard deviationOrdered By: Simone Collins on 07-26-2025 Erythrocyte distribution width (RBC) [Ratio] 41.0 fl 35.1-43.9 [facility] Glomerular filtration rate ( GFR) estimation/1.73 sq m using serum, plasma, or whole bOrdered By: Simone Collins on 07-26-2025 GFR/1.73 sq M.predicted among non-blacks MDRD (S/P/Bld) [Vol rate/Area] 86 mL/min/{1.73_m2} >60 [facility] Hematocrit Auto (Bld) [Volum e fraction]Ordered By: Simone Collins on 07-26-2025 Hematocrit (Bld) [Volume fraction] 30.9 % Low 40-54 [facility] Hemoglobin measurementOrdere d By: Simone Collins on 07-26-2025 Hemoglobin (Bld) [Mass/Vol] 10.7 g/dL Low 13.0-16.5 [facility] Immature granulocytes/100 WB C Auto (Bld)Ordered By: Simone Collins on 07-26-2025 Immature granulocytes/100 WBC (Bld) 0.700 % 0.0-0.9 [facility] MCV (mean corpuscular volume ) determinationOrdered By: Simone Collins on 07-26-2025 MCV (RBC) [Entitic vol] 86.3 fL 80-94 [facility] Mean corpuscular hemoglobin (MCH) determinationOrdered By: Simone Collins on 07-26-2025 MCH (RBC) [Entitic mass] 29.9 pg 27.0-32.0 [facility] Monocyte percentageOrdered B y: Simone Collins on 07-26-2025 Monocytes/100 WBC (Bld) 16.9 % High 0-10 [facility] Neutrophil percentageOrdered By: Simone Collins on 07-26-2025 Neutrophils/100 WBC (Bld) 66.8 % 47-70 [facility] No Panel InformationOrdered By: Simone Collins on 07-26-2025 21 U/L <38 [facility] Oncology Visit Reporton 07-14 On[address] Visit [address] Normal [facility] Platelet countOrdered By: Yoon Collins on 07-26-2025 Platelets (Bld) [#/Vol] 183 10*3/uL 150-450 [facility] Potassium measurement (mass/ volume)Ordered By: Simone Collins on 07-26-2025 Potassium (Unsp spec) [Mass/Vol] 3.4 mmol/L 3.3-5.1 [facility] RBC Auto (Bld) [#/Vol]Ordere d By: Simone Collins on 07-26-2025 RBC (Bld) [#/Vol] 3.58 10*6/uL Low 4.6-6.2 [facility] Serum creatinine measurement (mass/volume)Ordered By: Simone Collins on 07-26-2025 Creatinine [Mass/Vol] 0.90 mg/dL 0.70-1.20 [facility] Serum globulin measurementOr dered By: Simone Collins on 07-26-2025 Globulin (S) [Mass/Vol] 2.7 g/dL 2.2-4.2 [facility] Serum glucose measurement (m ass/volume)Ordered By: Simone Collins on 07-26-2025 Glucose [Mass/Vol] 136 mg/dL High 70-99 [facility] Serum or plasma alanine macias otransferase (ALT) measurementOrdered By: Simone Collins on 07-26-2025 ALT [Catalytic activity/Vol] 10 U/L <47 [facility] Serum or plasma albumin shantia urement (mass/volume)Ordered By: Simone Collins on 07-26-2025 Albumin [Mass/Vol] 3.4 g/dL 3.4-4.8 [facility] Serum or plasma albumin/glob ulin mass ratioOrdered By: Simone Collins on 07-26-2025 Albumin/Globulin [Mass ratio] 1.3 {ratio} 0.9-2.4 [facility] Serum or plasma alkaline tobin sphatase measurementOrdered By: Simone Collins on 07-26-2025 ALP [Catalytic activity/Vol] 61 U/L 40-129 [facility] Serum or plasma calcium shanita urement (mass/volume)Ordered By: Simone Collins on 07-26-2025 Calcium [Mass/Vol] 8.3 mg/dL 7.6-11.0 [facility] Serum or plasma urea nitroge n measurement (mass/volume)Ordered By: Simone Collins on 07-26-2025 Urea nitrogen [Mass/Vol] 15 mg/dL 4-19 [facility] Sodium levelOrdered By: Smooth Collins on 07-26-2025 Sodium [Moles/Vol] 129 mmol/L Low 133-145 [facility] Total proteinOrdered By: Johnhiginio Collins on 07-26-2025 Protein [Mass/Vol] 6.0 g/dL 5.9-8.4 [facility] White blood cell (WBC) count Ordered By: Simnoe Collins on 07-26-2025 WBC (Bld) [#/Vol] 3.0 10*3/uL Low 4.4-11.0 [facility] Radiation Oncology Visiton 1 Radiation Oncology Visit Normal [facility] Absolute lymphocyte countOrd ered By: Simone Collins on 07-19-2025 Lymphocytes Auto (Unsp spec) [#/Vol] 0.84 10*3/uL 0.83-4.51 [facility] Absolute neutrophil countOrd ered By: Simone Collins on 07-19-2025 Neutrophils (Bld) [#/Vol] 2.0 10*3/uL 2.0-7.7 [facility] Anion gap in Serum or Plasma Ordered By: Simone Collins on 07-19-2025 Anion gap [Moles/Vol] 10 mmol/L 5- [facility] Automated lymphocyte count a s percentage of total leukocytesOrdered By: Simone Collins on 07-19-2025 Lymphocytes/100 WBC Auto (Unsp spec) 25.1 % - [facility] BUN/creatinine ratioOrdered By: Simone Collins on 07-19-2025 Urea nitrogen/Creatinine [Mass ratio] 15.1 mg/mg 10- [facility] Basophil percentageOrdered B y: Simone Collins on 07-19-2025 Basophils/100 WBC (Bld) 0.6 % 0-1 [facility] Bilirubin, totalOrdered By: Simone Collins on 07-19-2025 Bilirubin [Mass/Vol] 0.40 mg/dL 0.00-1.30 [facility] CBC W/Diff, Automatedon Absolute Lymph 0.84 X10 3/uL Normal 0.83-4.51 [facility] Comment on above: Performed By: #### L 500.4050, L100.0100 ####[facility] [address] [place], [address] Absolute Neut 2.0 X10 3/uL Normal 2.0-7.7 [facility] Comment on above: Performed By: #### L 500.4050, L100.0100 ####[facility] [address] [place], [address] Basophils/100 WBC (Bld) 0.6 % Normal 0-1 [facility] Comment on above: Performed By: #### L 500.4050, L100.0100 ####[facility] [address] [place], [address] Eosinophils/100 WBC (Bld) 1.8 % Normal 0-5 [facility] Comment on above: Performed By: #### L 500.4050, L100.0100 ####[facility] [address] [place], [address] Erythrocyte distribution width (RBC) [Ratio] 13.2 % Normal 11.6-14.6 [facility] Comment on above: Performed By: #### L 500.4050, L100.0100 ####[facility] [address] [place], [address] Hematocrit (Bld) [Volume fraction] 33.0 % Low 40-54 [facility] Comment on above: Performed By: #### L 500.4050, L100.0100 ####[facility] [address] [place], [address] Hemoglobin (Bld) [Mass/Vol] 11.1 g/dL Low 13.0-16.5 [facility] Comment on above: Performed By: #### L 500.4050, L100.0100 ####[facility] [address] [place], [address] IG% 0.600 Normal 0.0-0.9 [facility] Comment on above: Result Comment: IG% - Immature Granulocytes (promyelocytes, myelocytes andmetamyelocytes) > 1% indicates that a LEFT SHIFT is Present. Performed By: #### L 500.4050, L100.0100 ####[facility] [address] [place], [address] Lymphocytes/100 WBC (Bld) 25.1 % Normal 19-41 [facility] Comment on above: Performed By: #### L 500.4050, L100.0100 ####[facility] [address] [place], [address] MCH (RBC) [Entitic mass] 29.7 pg Normal 27.0-32.0 [facility] Comment on above: Performed By: #### L 500.4050, L100.0100 ####[facility] [address] [place], [address] MCHC (RBC) [Mass/Vol] 33.6 g/dL Normal 32-36 [facility] Comment on above: Performed By: #### L 500.4050, L100.0100 ####[facility] [address] [place], [address] MCV (RBC) [Entitic vol] 88.2 fL Normal 80-94 [facility] Comment on above: Performed By: #### L 500.4050, L100.0100 ####[facility] [address] [place], [address] Monocytes/100 WBC (Bld) 11.1 % High 0-10 [facility] Comment on above: Performed By: #### L 500.4050, L100.0100 ####[facility] [address] [place], [address] Neutrophils/100 WBC (Bld) 60.8 % Normal 47-70 [facility] Comment on above: Performed By: #### L 500.4050, L100.0100 ####[facility] [address] [place], [address] Nucleated RBC (Bld) [#/Vol] 0 10*3/uL Normal 0-5 [facility] Comment on above: Performed By: #### L 500.4050, L100.0100 ####[facility] [address] [place], [address] Platelet mean volume (Bld) [Entitic vol] 9.6 fL Normal 6.2-12.0 [facility] Comment on above: Performed By: #### L 500.4050, L100.0100 ####[facility] [address] [place], [address] Platelets (Bld) [#/Vol] 199 10*3/uL Normal 150-450 [facility] Comment on above: Performed By: #### L 500.4050, L100.0100 ####[facility] [address] [place], [address] RBC (Bld) [#/Vol] 3.74 10*6/uL Low 4.6-6.2 [facility] Comment on above: Performed By: #### L 500.4050, L100.0100 ####[facility] [address] [place], [address] RDW SD 42.6 fl Normal 35.1-43.9 [facility] Comment on above: Performed By: #### L 500.4050, L100.0100 ####[facility] [address] [place], [address] WBC (Bld) [#/Vol] 3.3 10*3/uL Low 4.4-11.0 [facility] Comment on above: Performed By: #### L 500.4050, L100.0100 ####[facility] [address] [place], [address] CNPNon 07-19-2025 CNPN Telephone (NRMDN) -- GLENN PARADA ([id number]) 1945 M Date Time Provider Department 07/19/25 [...] capsules opened up into applesauce. Aries Sarabia APRN-[employer] Allergies As of Date: 07/19/2025 Noted Allergy [...] Date Reviewed: 04/08/2025 Reviewed by: Aries Sarabia APRN.[employer] - Fully Assessed Reason for Visit: Medication [...] Status:Closed by JAEL CH on 07/19/25 Normal [facility] Carbon dioxide, total [Moles /volume] in Central venous bloodOrdered By: Simone Collins on 07-19-2025 CO2 [Moles/Vol] 22.6 mmol/L 21.0-32.0 [facility] Chloride assayOrdered By: Yoon Collins on 07-19-2025 Chloride [Moles/Vol] 102 mmol/L 98-108 [facility] Comprehensive Metabolic Prof ilon 07-19-2025 Albumin [Mass/Vol] 3.6 g/dL Normal 3.4-4.8 [facility] Comment on above: Performed By: #### L 500.4050, L100.0100 ####[facility] [address] [place], [address] Albumin/Globulin [Mass ratio] 1.5 {ratio} Normal 0.9-2.4 [facility] Comment on above: Performed By: #### L 500.4050, L100.0100 ####[facility] [address] [place], [address] ALK PHOS 66 U/L Normal 40-129 [facility] Comment on above: Performed By: #### L 500.4050, L100.0100 ####[facility] [address] [place], [address] ALT [Catalytic activity/Vol] 6 U/L Normal <=46 [facility] Comment on above: Performed By: #### L 500.4050, L100.0100 ####[facility] [address] [place], [address] AST [Catalytic activity/Vol] 18 U/L Normal <=37 [facility] Comment on above: Performed By: #### L 500.4050, L100.0100 ####[facility] [address] [place], [address] Bilirubin [Mass/Vol] 0.40 mg/dL Normal 0.00-1.30 [facility] Comment on above: Performed By: #### L 500.4050, L100.0100 ####[facility] [address] [place], [address] BUN/CRE 15.1 RATIO Normal 10-20 [facility] Comment on above: Performed By: #### L 500.4050, L100.0100 ####[facility] [address] [place], [address] Calcium [Mass/Vol] 8.2 mg/dL Normal 7.6-11.0 [facility] Comment on above: Performed By: #### L 500.4050, L100.0100 ####[facility] [address] [place], [address] Chloride [Moles/Vol] 102 mmol/L Normal 98-108 [facility] Comment on above: Performed By: #### L 500.4050, L100.0100 ####[facility] [address] [place], [address] CO2 [Moles/Vol] 22.6 mmol/L Normal 21.0-32.0 [facility] Comment on above: Performed By: #### L 500.4050, L100.0100 ####[facility] [address] [place], [address] Creatinine [Mass/Vol] 0.88 mg/dL Normal 0.70-1.20 [facility] Comment on above: Performed By: #### L 500.4050, L100.0100 ####[facility] [address] [place], [address] ECRCL 63.69 ml/min Normal 50-250 [facility] Comment on above: Performed By: #### L 500.4050, L100.0100 ####[facility] [address] [place], [address] GAP 10 Normal 5-15 [facility] Comment on above: Performed By: #### L 500.4050, L100.0100 ####[facility] [address] [place], [address] GFR/1.73 sq M.predicted among non-blacks MDRD (S/P/Bld) [Vol rate/Area] 86 mL/min/{1.73_m2} Normal >60 [facility] Comment on above: Result Comment: mL/m in/1.73m2 CKD-EPI Creatinine Equation (2020) Performed By: #### L 500.4050, L100.0100 ####[facility] [address] [place], [address] Globulin (S) [Mass/Vol] 2.4 g/dL Normal 2.2-4.2 [facility] Comment on above: Performed By: #### L 500.4050, L100.0100 ####[facility] [address] [place], [address] Glucose [Mass/Vol] 116 mg/dL High 70-99 [facility] Comment on above: Performed By: #### L 500.4050, L100.0100 ####[facility] [address] [place], [address] Potassium [Moles/Vol] 3.7 mmol/L Normal 3.3-5.1 [facility] Comment on above: Performed By: #### L 500.4050, L100.0100 ####[facility] [address] [place], [address] Sodium [Moles/Vol] 135 mmol/L Normal 133-145 [facility] Comment on above: Performed By: #### L 500.4050, L100.0100 ####[facility] [address] [place], [address] T PROT 5.9 g/dL Normal 5.9-8.4 [facility] Comment on above: Performed By: #### L 500.4050, L100.0100 ####[facility] [address] [place], [address] Urea nitrogen [Mass/Vol] 13 mg/dL Normal 4-19 [facility] Comment on above: Performed By: #### L 500.4050, L100.0100 ####[facility] [address] [place], [address] Eosinophil percentageOrdered By: Simone Collins on 07-19-2025 Eosinophils/100 WBC (Bld) 1.8 % 0-5 [facility] Erythrocyte distribution wid th ratioOrdered By: Simone Collins on 07-19-2025 Erythrocyte distribution width (RBC) [Ratio] 13.2 % 11.6-14.6 [facility] Erythrocyte distribution wid th standard deviationOrdered By: Simone Collins on 07-19-2025 Erythrocyte distribution width (RBC) [Ratio] 42.6 fl 35.1-43.9 [facility] Glomerular filtration rate ( GFR) estimation/1.73 sq m using serum, plasma, or whole bOrdered By: Simone Collins on 07-19-2025 GFR/1.73 sq M.predicted among non-blacks MDRD (S/P/Bld) [Vol rate/Area] 86 mL/min/{1.73_m2} >60 [facility] Comment on above: mL/min/1.73m2 CKD-EP I Creatinine Equation (2020) Hematocrit Auto (Bld) [Volum e fraction]Ordered By: Simone Collins on 07-19-2025 Hematocrit (Bld) [Volume fraction] 33.0 % Low 40-54 [facility] Hemoglobin measurementOrdere d By: Simone Collins on 07-19-2025 Hemoglobin (Bld) [Mass/Vol] 11.1 g/dL Low 13.0-16.5 [facility] Immature granulocytes/100 WB C Auto (Bld)Ordered By: Simone Collins on 07-19-2025 Immature granulocytes/100 WBC (Bld) 0.600 % 0.0-0.9 [facility] Comment on above: IG% - Immature Granu locytes (promyelocytes, myelocytes and metamyelocytes) > 1% indicates that a LEFT SHIFT is Present. Laboratory - Chemistry and C hemistry - challengeOrdered By: Simone Collins on 07-19-2025 AST [Catalytic activity/Vol] 18 U/L <38 [facility] MCV (mean corpuscular volume ) determinationOrdered By: Simone Collins on 07-19-2025 MCV (RBC) [Entitic vol] 88.2 fL 80-94 [facility] Mean corpuscular hemoglobin (MCH) determinationOrdered By: Simone Collins on 07-19-2025 MCH (RBC) [Entitic mass] 29.7 pg 27.0-32.0 [facility] Mean corpuscular hemoglobin concentration (MCHC) determinationOrdered By: Simone Collins on 07-19-2025 MCHC (RBC) [Mass/Vol] 33.6 g/dL 32-36 [facility] Mean platelet volume determi nationOrdered By: Simone Collins on 07-19-2025 Platelet mean volume (Bld) [Entitic vol] 9.6 fL 6.2-12.0 [facility] Monocyte percentageOrdered B y: Simone Collins on 07-19-2025 Monocytes/100 WBC (Bld) 11.1 % High 0-10 [facility] Neutrophil percentageOrdered By: Simone Collins on 07-19-2025 Neutrophils/100 WBC (Bld) 60.8 % 47-70 [facility] Nucleated red blood cell per centageOrdered By: Simone Collins on 07-19-2025 Nucleated RBC/100 WBC (Bld) [Ratio] 0 % 0-5 [facility] Oncology Visit Reporton 10-0 [address] Report Normal [facility] Platelet countOrdered By: Yoon Collins on 07-19-2025 Platelets (Bld) [#/Vol] 199 10*3/uL 150-450 [facility] Potassium measurement (mass/ volume)Ordered By: Simone Collins on 07-19-2025 Potassium (Unsp spec) [Mass/Vol] 3.7 mmol/L 3.3-5.1 [facility] RBC Auto (Bld) [#/Vol]Ordere d By: Simone Collins on 07-19-2025 RBC (Bld) [#/Vol] 3.74 10*6/uL Low 4.6-6.2 [facility] [facility] Serum creatinine measurement (mass/volume)Ordered By: Simone Collins on 07-19-2025 Creatinine [Mass/Vol] 0.88 mg/dL 0.70-1.20 [facility] Serum globulin measurementOr dered By: Simone Collins on 07-19-2025 Globulin (S) [Mass/Vol] 2.4 g/dL 2.2-4.2 [facility] Serum glucose measurement (m ass/volume)Ordered By: Simone Collins on 07-19-2025 Glucose [Mass/Vol] 116 mg/dL High 70-99 [facility] Serum or plasma alanine macias otransferase (ALT) measurementOrdered By: Simone Collins on 07-19-2025 ALT [Catalytic activity/Vol] 6 U/L <47 [facility] Serum or plasma albumin shanita urement (mass/volume)Ordered By: Simone Collins on 07-19-2025 Albumin [Mass/Vol] 3.6 g/dL 3.4-4.8 [facility] Serum or plasma albumin/glob ulin mass ratioOrdered By: Simone Collins on 07-19-2025 Albumin/Globulin [Mass ratio] 1.5 {ratio} 0.9-2.4 [facility] Serum or plasma alkaline tobin sphatase measurementOrdered By: Simone Collins on 07-19-2025 ALP [Catalytic activity/Vol] 66 U/L 40-129 [facility] Serum or plasma calcium shanita urement (mass/volume)Ordered By: Simone Collins on 07-19-2025 Calcium [Mass/Vol] 8.2 mg/dL 7.6-11.0 [facility] Serum or plasma urea nitroge n measurement (mass/volume)Ordered By: Simone Collins on 10-06-2025 Urea nitrogen [Mass/Vol] 13 mg/dL 4-19 [facility] Sodium levelOrdered By: Smooth Collins on 07-19-2025 Sodium [Moles/Vol] 135 mmol/L 133-145 [facility] Total proteinOrdered By: John castillo Collins on 07-19-2025 Protein [Mass/Vol] 5.9 g/dL 5.9-8.4 [facility] White blood cell (WBC) count Ordered By: Simone Karina on 07-19-2025 WBC (Bld) [#/Vol] 3.3 10*3/uL Low 4.4-11.0 [facility] CNPNon 07-16-2025 CNPN Telephone ([facility]) -- GLENN PARADA ([id number]) 1945 M Date Time Provider Department 07/16/25 [...] is coated and can't be crushed Stella Lea RN 07/16/2025 10:09 AM Signed CYNDEE 07/30/24 [...] Date Reviewed: 04/08/2025 Reviewed by: Aries Sarabia APRN.[employer] - Fully Assessed Prescriptions as of 07/19/2025 [...] Status:Closed by BRADY MANZANARES on 07/19/25 Normal [facility] Radiation Oncology Visiton 1 Radiation Oncology Visit Normal [facility] Absolute lymphocyte countOrd ered By: Simone Collins on 07-12-2025 Lymphocytes Auto (Unsp spec) [#/Vol] 1.13 10*3/uL 0.83-4.51 [facility] Absolute neutrophil countOrd ered By: Simone Collins on 07-12-2025 Neutrophils (Bld) [#/Vol] 3.1 10*3/uL 2.0-7.7 [facility] Anion gap in Serum or Plasma Ordered By: Simone Collins on 07-12-2025 Anion gap [Moles/Vol] 9 mmol/L 5-15 [facility] Automated lymphocyte count a s percentage of total leukocytesOrdered By: Simone Collins on 07-12-2025 Lymphocytes/100 WBC Auto (Unsp spec) 23.4 % -41 [facility] BUN/creatinine ratioOrdered By: Simone Collins on 07-12-2025 Urea nitrogen/Creatinine [Mass ratio] 13.0 mg/mg 10-20 [facility] Basophil percentageOrdered B y: Simone Collins on 07-12-2025 Basophils/100 WBC (Bld) 0.8 % 0-1 [facility] Bilirubin, totalOrdered By: Simone Collins on 07-12-2025 Bilirubin [Mass/Vol] 0.48 mg/dL 0.00-1.30 [facility] CBC W/Diff, Automatedon 06-15 Absolute Lymph 1.13 X10 3/uL Normal 0.83-4.51 [facility] Comment on above: Performed By: #### L 100.0100, L500.4050 ####[facility] [address] [place], [address] Absolute Neut 3.1 X10 3/uL Normal 2.0-7.7 [facility] Comment on above: Performed By: #### L 100.0100, L500.4050 ####[facility] [address] [place], [address] Basophils/100 WBC (Bld) 0.8 % Normal 0-1 [facility] Comment on above: Performed By: #### L 100.0100, L500.4050 ####[facility] [address] [place], [address] Eosinophils/100 WBC (Bld) 4.6 % Normal 0-5 [facility] Comment on above: Performed By: #### L 100.0100, L500.4050 ####[facility] [address] [place], [address] Erythrocyte distribution width (RBC) [Ratio] 13.1 % Normal 11.6-14.6 [facility] Comment on above: Performed By: #### L 100.0100, L500.4050 ####[facility] [address] [place], [address] Hematocrit (Bld) [Volume fraction] 32.6 % Low 40-54 [facility] Comment on above: Performed By: #### L 100.0100, L500.4050 ####[facility] [address] [place], [address] Hemoglobin (Bld) [Mass/Vol] 11.3 g/dL Low 13.0-16.5 [facility] Comment on above: Performed By: #### L 100.0100, L500.4050 ####[facility] [address] [place], [address] IG% 0.600 Normal 0.0-0.9 [facility] Comment on above: Result Comment: IG% - Immature Granulocytes (promyelocytes, myelocytes andmetamyelocytes) > 1% indicates that a LEFT SHIFT is Present. Performed By: #### L 100.0100, L500.4050 ####[facility] [address] [place], [address] Lymphocytes/100 WBC (Bld) 23.4 % Normal 19-41 [facility] Comment on above: Performed By: #### L 100.0100, L500.4050 ####[facility] [address] [place], [address] MCH (RBC) [Entitic mass] 30.4 pg Normal 27.0-32.0 [facility] Comment on above: Performed By: #### L 100.0100, L500.4050 ####[facility] [address] [place], [address] MCHC (RBC) [Mass/Vol] 34.7 g/dL Normal 32-36 [facility] Comment on above: Performed By: #### L 100.0100, L500.4050 ####[facility] [address] [place], [address] MCV (RBC) [Entitic vol] 87.6 fL Normal 80-94 [facility] Comment on above: Performed By: #### L 100.0100, L500.4050 ####[facility] [address] [place], [address] Monocytes/100 WBC (Bld) 6.8 % Normal 0-10 [facility] Comment on above: Performed By: #### L 100.0100, L500.4050 ####[facility] [address] [place], [address] Neutrophils/100 WBC (Bld) 63.8 % Normal 47-70 [facility] Comment on above: Performed By: #### L 100.0100, L500.4050 ####[facility] [address] [place], [address] Nucleated RBC (Bld) [#/Vol] 0 10*3/uL Normal 0-5 [facility] Comment on above: Performed By: #### L 100.0100, L500.4050 ####[facility] [address] [place], [address] Platelet mean volume (Bld) [Entitic vol] 10.0 fL Normal 6.2-12.0 [facility] Comment on above: Performed By: #### L 100.0100, L500.4050 ####[facility] [address] [place], [address] Platelets (Bld) [#/Vol] 216 10*3/uL Normal 150-450 [facility] Comment on above: Performed By: #### L 100.0100, L500.4050 ####[facility] [address] [place], [address] RBC (Bld) [#/Vol] 3.72 10*6/uL Low 4.6-6.2 [facility] Comment on above: Performed By: #### L 100.0100, L500.4050 ####[facility] [address] [place], [address] RDW SD 41.6 fl Normal 35.1-43.9 [facility] Comment on above: Performed By: #### L 100.0100, L500.4050 ####[facility] [address] [place], [address] WBC (Bld) [#/Vol] 4.8 10*3/uL Normal 4.4-11.0 [facility] Comment on above: Performed By: #### L 100.0100, L500.4050 ####[facility] [address] [place], [address] Carbon dioxide, total [Moles /volume] in Central venous bloodOrdered By: Simone Collins on 07-12-2025 CO2 [Moles/Vol] 23.0 mmol/L 21.0-32.0 [facility] Chloride assayOrdered By: Yoon Collins on 07-12-2025 Chloride [Moles/Vol] 102 mmol/L 98-108 [facility] Comprehensive Metabolic Prof ilon 07-12-2025 Albumin [Mass/Vol] 3.4 g/dL Normal 3.4-4.8 [facility] Comment on above: Performed By: #### L 100.0100, L500.4050 ####[facility] [address] [place], [address] Albumin/Globulin [Mass ratio] 1.5 {ratio} Normal 0.9-2.4 [facility] Comment on above: Performed By: #### L 100.0100, L500.4050 ####[facility] [address] [place], [address] ALK PHOS 66 U/L Normal 40-129 [facility] Comment on above: Performed By: #### L 100.0100, L500.4050 ####[facility] [address] [place], [address] ALT [Catalytic activity/Vol] U/L Normal <=46 [facility] Comment on above: Performed By: #### L 100.0100, L500.4050 ####[facility] [address] [place], [address] AST [Catalytic activity/Vol] 21 U/L Normal <=37 [facility] Comment on above: Performed By: #### L 100.0100, L500.4050 ####[facility] [address] [place], [address] Bilirubin [Mass/Vol] 0.48 mg/dL Normal 0.00-1.30 [facility] Comment on above: Performed By: #### L 100.0100, L500.4050 ####[facility] [address] [place], [address] BUN/CRE 13.0 RATIO Normal 10-20 [facility] Comment on above: Performed By: #### L 100.0100, L500.4050 ####[facility] [address] [place], [address] Calcium [Mass/Vol] 8.4 mg/dL Normal 7.6-11.0 [facility] Comment on above: Performed By: #### L 100.0100, L500.4050 ####[facility] [address] [place], [address] Chloride [Moles/Vol] 102 mmol/L Normal 98-108 [facility] Comment on above: Performed By: #### L 100.0100, L500.4050 ####[facility] [address] [place], [address] CO2 [Moles/Vol] 23.0 mmol/L Normal 21.0-32.0 [facility] Comment on above: Performed By: #### L 100.0100, L500.4050 ####[facility] [address] [place], [address] Creatinine [Mass/Vol] 0.82 mg/dL Normal 0.70-1.20 [facility] Comment on above: Performed By: #### L 100.0100, L500.4050 ####[facility] [address] [place], [address] ECRCL 68.35 ml/min Normal 50-250 [facility] Comment on above: Performed By: #### L 100.0100, L500.4050 ####[facility] [address] [place], [address] GAP 9 Normal 5-15 [facility] Comment on above: Performed By: #### L 100.0100, L500.4050 ####[facility] [address] [place], [address] GFR/1.73 sq M.predicted among non-blacks MDRD (S/P/Bld) [Vol rate/Area] 88 mL/min/{1.73_m2} Normal >60 [facility] Comment on above: Result Comment: mL/m in/1.73m2 CKD-EPI Creatinine Equation (2020) Performed By: #### L 100.0100, L500.4050 ####[facility] [address] [place], [address] Globulin (S) [Mass/Vol] 2.4 g/dL Normal 2.2-4.2 [facility] Comment on above: Performed By: #### L 100.0100, L500.4050 ####[facility] [address] [place], [address] Glucose [Mass/Vol] 163 mg/dL High 70-99 [facility] Comment on above: Performed By: #### L 100.0100, L500.4050 ####[facility] [address] [place], [address] Potassium [Moles/Vol] 3.6 mmol/L Normal 3.3-5.1 [facility] Comment on above: Performed By: #### L 100.0100, L500.4050 ####[facility] [address] [place], [address] Sodium [Moles/Vol] 134 mmol/L Normal 133-145 [facility] Comment on above: Performed By: #### L 100.0100, L500.4050 ####[facility] [address] [place], [address] T PROT 5.8 g/dL Low 5.9-8.4 [facility] Comment on above: Performed By: #### L 100.0100, L500.4050 ####[facility] [address] [place], [address] Urea nitrogen [Mass/Vol] 11 mg/dL Normal 4-19 [facility] Comment on above: Performed By: #### L 100.0100, L500.4050 ####[facility] [address] [place], [address] Eosinophil percentageOrdered By: Simone Collins on 07-12-2025 Eosinophils/100 WBC (Bld) 4.6 % 0-5 [facility] Erythrocyte distribution wid th ratioOrdered By: Simone Collins on 07-12-2025 Erythrocyte distribution width (RBC) [Ratio] 13.1 % 11.6-14.6 [facility] Erythrocyte distribution wid th standard deviationOrdered By: Simone Collins on 07-12-2025 Erythrocyte distribution width (RBC) [Ratio] 41.6 fl 35.1-43.9 [facility] Glomerular filtration rate ( GFR) estimation/1.73 sq m using serum, plasma, or whole bOrdered By: Simone Collins on 07-12-2025 GFR/1.73 sq M.predicted among non-blacks MDRD (S/P/Bld) [Vol rate/Area] 88 mL/min/{1.73_m2} >60 [facility] Comment on above: mL/min/1.73m2 CKD-EP I Creatinine Equation (2020) Hematocrit Auto (Bld) [Volum e fraction]Ordered By: Simone Collins on 07-12-2025 Hematocrit (Bld) [Volume fraction] 32.6 % Low 40-54 [facility] Hemoglobin measurementOrdere d By: Simone Collins on 07-12-2025 Hemoglobin (Bld) [Mass/Vol] 11.3 g/dL Low 13.0-16.5 [facility] Immature granulocytes/100 WB C Auto (Bld)Ordered By: Simone Collins on 07-12-2025 Immature granulocytes/100 WBC (Bld) 0.600 % 0.0-0.9 [facility] Comment on above: IG% - Immature Granu locytes (promyelocytes, myelocytes and metamyelocytes) > 1% indicates that a LEFT SHIFT is Present. Laboratory - Chemistry and C hemistry - challengeOrdered By: Simone Collins on 07-12-2025 AST [Catalytic activity/Vol] 21 U/L <38 [facility] MCV (mean corpuscular volume ) determinationOrdered By: Simone Collins on 07-12-2025 MCV (RBC) [Entitic vol] 87.6 fL 80-94 [facility] Mean corpuscular hemoglobin (MCH) determinationOrdered By: Simone Collins on 07-12-2025 MCH (RBC) [Entitic mass] 30.4 pg 27.0-32.0 [facility] Mean corpuscular hemoglobin concentration (MCHC) determinationOrdered By: Simone Collins on 07-12-2025 MCHC (RBC) [Mass/Vol] 34.7 g/dL 32-36 [facility] Mean platelet volume determi nationOrdered By: Simone Collins on 07-12-2025 Platelet mean volume (Bld) [Entitic vol] 10.0 fL 6.2-12.0 [facility] Monocyte percentageOrdered B y: Simone Collins on 07-12-2025 Monocytes/100 WBC (Bld) 6.8 % 0-10 [facility] Neutrophil percentageOrdered By: Simone Collins on 07-12-2025 Neutrophils/100 WBC (Bld) 63.8 % 47-70 [facility] Nucleated red blood cell per centageOrdered By: Simone Collins on 07-12-2025 Nucleated RBC/100 WBC (Bld) [Ratio] 0 % 0-5 [facility] Oncology Visit Reporton 06-[address] [facility] Platelet countOrdered By: Yoon Collins on 07-12-2025 Platelets (Bld) [#/Vol] 216 10*3/uL 150-450 [facility] Potassium measurement (mass/ volume)Ordered By: Simone Collins on 07-12-2025 Potassium (Unsp spec) [Mass/Vol] 3.6 mmol/L 3.3-5.1 [facility] RBC Auto (Bld) [#/Vol]Ordere d By: Simone Collins on 07-12-2025 RBC (Bld) [#/Vol] 3.72 10*6/uL Low 4.6-6.2 [facility] Serum creatinine measurement (mass/volume)Ordered By: Simone Collins on 07-12-2025 Creatinine [Mass/Vol] 0.82 mg/dL 0.70-1.20 [facility] Serum globulin measurementOr dered By: Simone Collins on 07-12-2025 Globulin (S) [Mass/Vol] 2.4 g/dL 2.2-4.2 [facility] Serum glucose measurement (m ass/volume)Ordered By: Simone Collins on 07-12-2025 Glucose [Mass/Vol] 163 mg/dL High 70-99 [facility] Serum or plasma alanine macias otransferase (ALT) measurementOrdered By: Simone Collins on 07-12-2025 ALT [Catalytic activity/Vol] U/L <47 [facility] Serum or plasma albumin shanita urement (mass/volume)Ordered By: Simone Collins on 07-12-2025 Albumin [Mass/Vol] 3.4 g/dL 3.4-4.8 [facility] Serum or plasma albumin/glob ulin mass ratioOrdered By: Simone Collins on 07-12-2025 Albumin/Globulin [Mass ratio] 1.5 {ratio} 0.9-2.4 [facility] Serum or plasma alkaline tobin sphatase measurementOrdered By: Simone Collins on 07-12-2025 ALP [Catalytic activity/Vol] 66 U/L 40-129 [facility] Serum or plasma calcium shanita urement (mass/volume)Ordered By: Simone Collins on 07-12-2025 Calcium [Mass/Vol] 8.4 mg/dL 7.6-11.0 [facility] Serum or plasma urea nitroge n measurement (mass/volume)Ordered By: Simone Collins on 07-12-2025 Urea nitrogen [Mass/Vol] 11 mg/dL 4-19 [facility] Sodium levelOrdered By: Smooth bernarda Collins on 07-12-2025 Sodium [Moles/Vol] 134 mmol/L 133-145 [facility] Surgery Visit Reporton 07-12 Surgery Visit Report Normal [facility] Total proteinOrdered By: John Collins on 07-12-2025 Protein [Mass/Vol] 5.8 g/dL Low 5.9-8.4 [facility] White blood cell (WBC) count Ordered By: Simone Collins on 07-12-2025 WBC (Bld) [#/Vol] 4.8 10*3/uL 4.4-11.0 [facility] Modified Barium Swallow Stud yon 07-08-2025 Modified Barium Swallow Study Normal [facility] Radiation Oncology Visiton 0 07-07-2025 Radiation Oncology Visit Normal [facility] CBC W/Diff, Automatedon 06-15 Absolute Lymph 1.89 X10 3/uL Normal 0.83-4.51 [facility] Comment on above: Performed By: #### L 100.0100, L500.4050 ####[facility] [address] [facility] [place], [address] Absolute Neut 5.8 X10 3/uL Normal 2.0-7.7 [facility] Comment on above: Performed By: #### L 100.0100, L500.4050 ####[facility] [address] [place], [address] Basophils/100 WBC (Bld) 0.5 % Normal 0-1 [facility] Comment on above: Performed By: #### L 100.0100, L500.4050 ####[facility] [address] [place], [address] Eosinophils/100 WBC (Bld) 3.2 % Normal 0-5 [facility] Comment on above: Performed By: #### L 100.0100, L500.4050 ####[facility] [address] [place], [address] Erythrocyte distribution width (RBC) [Ratio] 13.5 % Normal 11.6-14.6 [facility] Comment on above: Performed By: #### L 100.0100, L500.4050 ####[facility] [address] [place], [address] Hematocrit (Bld) [Volume fraction] 34.9 % Low 40-54 [facility] Comment on above: Performed By: #### L 100.0100, L500.4050 ####[facility] [address] [place], [address] Hemoglobin (Bld) [Mass/Vol] 11.6 g/dL Low 13.0-16.5 [facility] Comment on above: Performed By: #### L 100.0100, L500.4050 ####[facility] [address] [place], [address] IG% 0.300 Normal 0.0-0.9 [facility] Comment on above: Result Comment: IG% - Immature Granulocytes (promyelocytes, myelocytes andmetamyelocytes) > 1% indicates that a LEFT SHIFT is Present. Performed By: #### L 100.0100, L500.4050 ####[facility] [address] [place], [address] Lymphocytes/100 WBC (Bld) 21.7 % Normal 19-41 [facility] Comment on above: Performed By: #### L 100.0100, L500.4050 ####[facility] [address] [place], [address] MCH (RBC) [Entitic mass] 29.6 pg Normal 27.0-32.0 [facility] Comment on above: Performed By: #### L 100.0100, L500.4050 ####[facility] [address] [place], [address] MCHC (RBC) [Mass/Vol] 33.2 g/dL Normal 32-36 [facility] Comment on above: Performed By: #### L 100.0100, L500.4050 ####[facility] [address] [place], [address] MCV (RBC) [Entitic vol] 89.0 fL Normal 80-94 [facility] Comment on above: Performed By: #### L 100.0100, L500.4050 ####[facility] [address] [place], [address] Monocytes/100 WBC (Bld) 7.5 % Normal 0-10 [facility] Comment on above: Performed By: #### L 100.0100, L500.4050 ####[facility] [address] [place], [address] Neutrophils/100 WBC (Bld) 66.8 % Normal 47-70 [facility] Comment on above: Performed By: #### L 100.0100, L500.4050 ####[facility] [address] [place], [address] Nucleated RBC (Bld) [#/Vol] 0 10*3/uL Normal 0-5 [facility] Comment on above: Performed By: #### L 100.0100, L500.4050 ####[facility] [address] [place], [address] Platelet mean volume (Bld) [Entitic vol] 9.6 fL Normal 6.2-12.0 [facility] Comment on above: Performed By: #### L 100.0100, L500.4050 ####[facility] [address] [place], [address] Platelets (Bld) [#/Vol] 248 10*3/uL Normal 150-450 [facility] Comment on above: Performed By: #### L 100.0100, L500.4050 ####[facility] [address] [place], [address] RBC (Bld) [#/Vol] 3.92 10*6/uL Low 4.6-6.2 [facility] Comment on above: Performed By: #### L 100.0100, L500.4050 ####[facility] [address] [place], [address] RDW SD 44.0 fl High 35.1-43.9 [facility] Comment on above: Performed By: #### L 100.0100, L500.4050 ####[facility] [address] [place], [address] WBC (Bld) [#/Vol] 8.7 10*3/uL Normal 4.4-11.0 [facility] Comment on above: Performed By: #### L 100.0100, L500.4050 ####[facility] [address] [place], [address] Comprehensive Metabolic Prof [facility] 07-05-2025 Albumin [Mass/Vol] 3.5 g/dL Normal 3.4-4.8 [facility] Comment on above: Performed By: #### L 100.0100, L500.4050 ####[facility] [address] [place], [address] Albumin/Globulin [Mass ratio] 1.4 {ratio} Normal 0.9-2.4 [facility] Comment on above: Performed By: #### L 100.0100, L500.4050 ####[facility] [address] [place], [address] ALK PHOS 63 U/L Normal 40-129 [facility] Comment on above: Performed By: #### L 100.0100, L500.4050 ####[facility] [address] [place], [address] ALT [Catalytic activity/Vol] U/L Normal <=46 [facility] Comment on above: Performed By: #### L 100.0100, L500.4050 ####[facility] [address] [place], [address] AST [Catalytic activity/Vol] 14 U/L Normal <=37 [facility] Comment on above: Performed By: #### L 100.0100, L500.4050 ####[facility] [address] [place], [address] Bilirubin [Mass/Vol] 0.53 mg/dL Normal 0.00-1.30 [facility] Comment on above: Performed By: #### L 100.0100, L500.4050 ####[facility] [address] [place], [address] BUN/CRE 16.6 RATIO Normal 10-20 [facility] Comment on above: Performed By: #### L 100.0100, L500.4050 ####[facility] [address] [place], [address] Calcium [Mass/Vol] 8.5 mg/dL Normal 7.6-11.0 [facility] Comment on above: Performed By: #### L 100.0100, L500.4050 ####[facility] [address] [place], [address] Chloride [Moles/Vol] 103 mmol/L Normal 98-108 [facility] Comment on above: Performed By: #### L 100.0100, L500.4050 ####[facility] [address] [place], [address] CO2 [Moles/Vol] 23.2 mmol/L Normal 21.0-32.0 [facility] Comment on above: Performed By: #### L 100.0100, L500.4050 ####[facility] [address] [place], [address] Creatinine [Mass/Vol] 0.99 mg/dL Normal 0.70-1.20 [facility] Comment on above: Performed By: #### L 100.0100, L500.4050 ####[facility] [facility] [address] [place], [address] ECRCL 56.62 ml/min Normal 50-250 [facility] Comment on above: Performed By: #### L 100.0100, L500.4050 ####[facility] [address] [place], [address] GAP 11 Normal 5-15 [facility] Comment on above: Performed By: #### L 100.0100, L500.4050 ####[facility] [address] [place], [address] GFR/1.73 sq M.predicted among non-blacks MDRD (S/P/Bld) [Vol rate/Area] 77 mL/min/{1.73_m2} Normal >60 [facility] Comment on above: Result Comment: mL/m in/1.73m2 CKD-EPI Creatinine Equation (2020) Performed By: #### L 100.0100, L500.4050 ####[facility] [address] [place], [address] Globulin (S) [Mass/Vol] 2.4 g/dL Normal 2.2-4.2 [facility] Comment on above: Performed By: #### L 100.0100, L500.4050 ####[facility] [address] [place], [address] Glucose [Mass/Vol] 120 mg/dL High 70-99 [facility] Comment on above: Performed By: #### L 100.0100, L500.4050 ####[facility] [address] [place], [address] Potassium [Moles/Vol] 3.4 mmol/L Normal 3.3-5.1 [facility] Comment on above: Performed By: #### L 100.0100, L500.4050 ####[facility] [address] [place], [address] Sodium [Moles/Vol] 137 mmol/L Normal 133-145 [facility] Comment on above: Performed By: #### L 100.0100, L500.4050 ####[facility] [address] [place], [address] T PROT 5.9 g/dL Normal 5.9-8.4 [facility] Comment on above: Performed By: #### L 100.0100, L500.4050 ####[facility] [address] [place], [address] Urea nitrogen [Mass/Vol] 16 mg/dL Normal 4-19 [facility] Comment on above: Performed By: #### L 100.0100, L500.4050 ####[facility] [address] [place], [address] LDHon 07-05-2025 LDH 143 U/L Normal 87-241 [facility] Comment on above: Order Comment: 1 Performed By: #### L 504.2610 ####[facility] [address] [place], [address] Lactate dehydrogenase (LDH) measurementOrdered By: Simone Collins on 07-05-2025 LDH [Catalytic activity/Vol] 143 U/L 87-241 [facility] Oncology Visit Reporton 06-15 [address] Visit Report Normal [facility] SP/HP.SP.Tanvir 07-02-2025 SP/HP.SP.EV Normal [facility] Chest 1 View (Portable)on Chest 1 View (Portable) Normal [facility] Discharge Instructionon 06-[address] [facility] EGD Reporton 06-30-2025 EGD Report Normal [facility] Immunohistochemical Stainson 06-30-2025 Immunohistochemical Stains Normal [facility] Comment on above: Performed By: #### P IMHI ####[facility] [address] [place], [address] MR/OP.PROVATon 06-30-2025 MR/OP.PROVAT Normal [facility] MR/POSTOP.ANEon 06-30-2025 MR/POSTOP.ANE Normal [facility] MR/QIWFYQDW0vx 06-30-2025 MR/POSTOPAN2 Normal [facility] Operative Reporton Operative Report Normal [facility] Absolute lymphocyte countOrd ered By: Simone Collins on 06-28-2025 Lymphocytes Auto (Unsp spec) [#/Vol] 2.83 10*3/uL 0.83-4.51 [facility] Absolute neutrophil countOrd ered By: Simone Collins on 06-28-2025 Neutrophils (Bld) [#/Vol] 4.3 10*3/uL 2.0-7.7 [facility] Anion gap in Serum or Plasma Ordered By: Simone Collins on 06-28-2025 Anion gap [Moles/Vol] 10 mmol/L 02-25 [facility] Automated lymphocyte count a s percentage of total leukocytesOrdered By: Simone Collins on 06-28-2025 Lymphocytes/100 WBC Auto (Unsp spec) 33.9 % [facility] BUN/creatinine ratioOrdered By: Simone Collins on 06-28-2025 Urea nitrogen/Creatinine [Mass ratio] 13.4 mg/mg - [facility] Basophil percentageOrdered B y: Simone Collins on 06-28-2025 Basophils/100 WBC (Bld) 0.6 % 0- [facility] Bilirubin, totalOrdered By: Simone Collins on 06-28-2025 Bilirubin [Mass/Vol] 0.46 mg/dL 0.00-1.30 [facility] CBC W/Diff, Automatedon 06-14 Absolute Lymph 2.83 X10 3/uL Normal 0.83-4.51 [facility] Comment on above: Performed By: #### L 500.4050, L100.0100 ####[facility] [address] [place], [address] Absolute Neut 4.3 X10 3/uL Normal 2.0-7.7 [facility] Comment on above: Performed By: #### L 500.4050, L100.0100 ####[facility] [address] [place], [address] Basophils/100 WBC (Bld) 0.6 % Normal 0-1 [facility] Comment on above: Performed By: #### L 500.4050, L100.0100 ####[facility] [address] [place], [address] Eosinophils/100 WBC (Bld) 3.9 % Normal 0-5 [facility] Comment on above: Performed By: #### L 500.4050, L100.0100 ####[facility] [address] [place], [address] Erythrocyte distribution width (RBC) [Ratio] 13.2 % Normal 11.6-14.6 [facility] Comment on above: Performed By: #### L 500.4050, L100.0100 ####[facility] [address] [place], [address] Hematocrit (Bld) [Volume fraction] 36.4 % Low 40-54 [facility] Comment on above: Performed By: #### L 500.4050, L100.0100 ####[facility] [address] [place], [address] Hemoglobin (Bld) [Mass/Vol] 12.1 g/dL Low 13.0-16.5 [facility] Comment on above: Performed By: #### L 500.4050, L100.0100 ####[facility] [address] [place], [address] IG% 0.400 Normal 0.0-0.9 [facility] Comment on above: Result Comment: IG% - Immature Granulocytes (promyelocytes, myelocytes andmetamyelocytes) > 1% indicates that a LEFT SHIFT is Present. Performed By: #### L 500.4050, L100.0100 ####[facility] [address] [place], [address] Lymphocytes/100 WBC (Bld) 33.9 % Normal 19-41 [facility] Comment on above: Performed By: #### L 500.4050, L100.0100 ####[facility] [address] [place], [address] MCH (RBC) [Entitic mass] 30.0 pg Normal 27.0-32.0 [facility] Comment on above: Performed By: #### L 500.4050, L100.0100 ####[facility] [address] [place], [address] MCHC (RBC) [Mass/Vol] 33.2 g/dL Normal 32-36 [facility] Comment on above: Performed By: #### L 500.4050, L100.0100 ####[facility] [address] [place], [address] MCV (RBC) [Entitic vol] 90.1 fL Normal 80-94 [facility] Comment on above: Performed By: #### L 500.4050, L100.0100 ####[facility] [address] [place], [address] Monocytes/100 WBC (Bld) 9.9 % Normal 0-10 [facility] Comment on above: Performed By: #### L 500.4050, L100.0100 ####[facility] [address] [place], [address] Neutrophils/100 WBC (Bld) 51.3 % Normal 47-70 [facility] Comment on above: Performed By: #### L 500.4050, L100.0100 ####[facility] [address] [place], [address] Nucleated RBC (Bld) [#/Vol] 0 10*3/uL Normal 0-5 [facility] Comment on above: Performed By: #### L 500.4050, L100.0100 ####[facility] [address] [place], [address] Platelet mean volume (Bld) [Entitic vol] 9.1 fL Normal 6.2-12.0 [facility] Comment on above: Performed By: #### L 500.4050, L100.0100 ####[facility] [address] [place], [address] Platelets (Bld) [#/Vol] 262 10*3/uL Normal 150-450 [facility] Comment on above: Performed By: #### L 500.4050, L100.0100 ####[facility] [address] [place], [address] RBC (Bld) [#/Vol] 4.04 10*6/uL Low 4.6-6.2 [facility] Comment on above: Performed By: #### L 500.4050, L100.0100 ####[facility] [address] [place], [address] RDW SD 43.8 fl Normal 35.1-43.9 [facility] Comment on above: Performed By: #### L 500.4050, L100.0100 ####[facility] [address] [place], [address] WBC (Bld) [#/Vol] 8.4 10*3/uL Normal 4.4-11.0 [facility] Comment on above: Performed By: #### L 500.4050, L100.0100 ####[facility] [address] [place], [address] Carbon dioxide, total [Moles /volume] in Central venous bloodOrdered By: Simone Collins on 06-28-2025 CO2 [Moles/Vol] 24.9 mmol/L 21.0-32.0 [facility] Chloride assayOrdered By: Yoon Collins on 06-28-2025 Chloride [Moles/Vol] 102 mmol/L 98-108 [facility] Comprehensive Metabolic Prof ilon 06-28-2025 Albumin [Mass/Vol] 3.7 g/dL Normal 3.4-4.8 [facility] Comment on above: Performed By: #### L 500.4050, L100.0100 ####[facility] [address] [place], [address] Albumin/Globulin [Mass ratio] 1.3 {ratio} Normal 0.9-2.4 [facility] Comment on above: Performed By: #### L 500.4050, L100.0100 ####[facility] [address] [place], [address] ALK PHOS 71 U/L Normal 40-129 [facility] Comment on above: Performed By: #### L 500.4050, L100.0100 ####[facility] [address] [place], [address] ALT [Catalytic activity/Vol] 5 U/L Normal <=46 [facility] Comment on above: Performed By: #### L 500.4050, L100.0100 ####[facility] [address] [place], [address] AST [Catalytic activity/Vol] 17 U/L Normal <=37 [facility] Comment on above: Performed By: #### L 500.4050, L100.0100 ####[facility] [address] [place], [address] Bilirubin [Mass/Vol] 0.46 mg/dL Normal 0.00-1.30 [facility] Comment on above: Performed By: #### L 500.4050, L100.0100 ####[facility] [address] [place], [address] BUN/CRE 13.4 RATIO Normal 10-20 [facility] Comment on above: Performed By: #### L 500.4050, L100.0100 ####[facility] [address] [place], [address] Calcium [Mass/Vol] 9.0 mg/dL Normal 7.6-11.0 [facility] Comment on above: Performed By: #### L 500.4050, L100.0100 ####[facility] [address] [place], [address] Chloride [Moles/Vol] 102 mmol/L Normal 98-108 [facility] Comment on above: Performed By: #### L 500.4050, L100.0100 ####[facility] [address] [place], [address] CO2 [Moles/Vol] 24.9 mmol/L Normal 21.0-32.0 [facility] Comment on above: Performed By: #### L 500.4050, L100.0100 ####[facility] [address] [place], [address] Creatinine [Mass/Vol] 1.17 mg/dL Normal 0.70-1.20 [facility] Comment on above: Performed By: #### L 500.4050, L100.0100 ####[facility] [address] [place], [address] ECRCL 47.91 ml/min Low 50-250 [facility] Comment on above: Performed By: #### L 500.4050, L100.0100 ####[facility] [address] [place], [address] GAP 10 Normal 5-15 [facility] Comment on above: Performed By: #### L 500.4050, L100.0100 ####[facility] [address] [place], [address] GFR/1.73 sq M.predicted among non-blacks MDRD (S/P/Bld) [Vol rate/Area] 63 mL/min/{1.73_m2} Normal >60 [facility] Comment on above: Result Comment: mL/m in/1.73m2 CKD-EPI Creatinine Equation (2020) Performed By: #### L 500.4050, L100.0100 ####[facility] [address] [place], [address] Globulin (S) [Mass/Vol] 2.8 g/dL Normal 2.2-4.2 [facility] Comment on above: Performed By: #### L 500.4050, L100.0100 ####[facility] [address] [place], [address] Glucose [Mass/Vol] 101 mg/dL High 70-99 [facility] Comment on above: Performed By: #### L 500.4050, L100.0100 ####[facility] [address] [place], [address] Potassium [Moles/Vol] 3.7 mmol/L Normal 3.3-5.1 [facility] Comment on above: Performed By: #### L 500.4050, L100.0100 ####[facility] [address] [place], [address] Sodium [Moles/Vol] 137 mmol/L Normal 133-145 [facility] Comment on above: Performed By: #### L 500.4050, L100.0100 ####[facility] [address] [place], [address] T PROT 6.5 g/dL Normal 5.9-8.4 [facility] Comment on above: Performed By: #### L 500.4050, L100.0100 ####[facility] [address] [place], [address] Urea nitrogen [Mass/Vol] 16 mg/dL Normal 4-19 [facility] Comment on above: Performed By: #### L 500.4050, L100.0100 ####[facility] [address] [place], [address] Eosinophil percentageOrdered By: Simone Collins on 06-28-2025 Eosinophils/100 WBC (Bld) 3.9 % 0-5 [facility] Erythrocyte distribution wid th ratioOrdered By: Simone Collins on 06-28-2025 Erythrocyte distribution width (RBC) [Ratio] 13.2 % 11.6-14.6 [facility] Erythrocyte distribution wid th standard deviationOrdered By: Simone Collins on 06-28-2025 Erythrocyte distribution width (RBC) [Ratio] 43.8 fl 35.1-43.9 [facility] Glomerular filtration rate ( GFR) estimation/1.73 sq m using serum, plasma, or whole bOrdered By: Simone Collins on 06-28-2025 GFR/1.73 sq M.predicted among non-blacks MDRD (S/P/Bld) [Vol rate/Area] 63 mL/min/{1.73_m2} >60 [facility] Comment on above: mL/min/1.73m2 CKD-EP I Creatinine Equation (2020) Hematocrit Auto (Bld) [Volum e fraction]Ordered By: Simone Collins on 06-28-2025 Hematocrit (Bld) [Volume fraction] 36.4 % Low 40-54 [facility] Hemoglobin measurementOrdere d By: Simone Collins on 06-28-2025 Hemoglobin (Bld) [Mass/Vol] 12.1 g/dL Low 13.0-16.5 [facility] Immature granulocytes/100 WB C Auto (Bld)Ordered By: Simone Collins on 06-28-2025 Immature granulocytes/100 WBC (Bld) 0.400 % 0.0-0.9 [facility] Comment on above: IG% - Immature Granu locytes (promyelocytes, myelocytes and metamyelocytes) > 1% indicates that a LEFT SHIFT is Present. Laboratory - Chemistry and C hemistry - challengeOrdered By: Simone Collins on 06-28-2025 AST [Catalytic activity/Vol] 17 U/L <38 [facility] MCV (mean corpuscular volume ) determinationOrdered By: Simone Collins on 06-28-2025 MCV (RBC) [Entitic vol] 90.1 fL 80-94 [facility] Mean corpuscular hemoglobin (MCH) determinationOrdered By: Simone Collisn on 06-28-2025 MCH (RBC) [Entitic mass] 30.0 pg 27.0-32.0 [facility] Mean corpuscular hemoglobin concentration (MCHC) determinationOrdered By: Simone Collins on 06-28-2025 MCHC (RBC) [Mass/Vol] 33.2 g/dL 32-36 [facility] Mean platelet volume determi nationOrdered By: Simone Collins on 06-28-2025 Platelet mean volume (Bld) [Entitic vol] 9.1 fL 6.2-12.0 [facility] Monocyte percentageOrdered B y: Simone Collins on 06-28-2025 Monocytes/100 WBC (Bld) 9.9 % 0-10 [facility] Neutrophil percentageOrdered By: Simone Collins on 06-28-2025 Neutrophils/100 WBC (Bld) 51.3 % 47-70 [facility] Nucleated red blood cell per centageOrdered By: Simone Collins on 06-28-2025 Nucleated RBC/100 WBC (Bld) [Ratio] 0 % 0-5 [facility] Oncology Visit Reporton 06-14 On[address] Visit Report Normal [facility] Platelet countOrdered By: Yoon Collins on 06-28-2025 Platelets (Bld) [#/Vol] 262 10*3/uL 150-450 [facility] Potassium measurement (mass/ volume)Ordered By: Simone Collins on 06-28-2025 Potassium (Unsp spec) [Mass/Vol] 3.7 mmol/L 3.3-5.1 [facility] RBC Auto (Bld) [#/Vol]Ordere d By: Simone Collins on 06-28-2025 RBC (Bld) [#/Vol] 4.04 10*6/uL Low 4.6-6.2 [facility] Serum creatinine measurement (mass/volume)Ordered By: Simone Collins on 06-28-2025 Creatinine [Mass/Vol] 1.17 mg/dL 0.70-1.20 [facility] Serum globulin measurementOr dered By: Simone Collins on 06-28-2025 Globulin (S) [Mass/Vol] 2.8 g/dL 2.2-4.2 [facility] Serum glucose measurement (m ass/volume)Ordered By: Simone Collins on 06-28-2025 Glucose [Mass/Vol] 101 mg/dL High 70-99 [facility] Serum or plasma alanine macias otransferase (ALT) measurementOrdered By: Simone Collins on 06-28-2025 ALT [Catalytic activity/Vol] 5 U/L <47 [facility] Serum or plasma albumin shanita urement (mass/volume)Ordered By: Simone Collins on 06-28-2025 Albumin [Mass/Vol] 3.7 g/dL 3.4-4.8 [facility] Serum or plasma albumin/glob ulin mass ratioOrdered By: Simone Collins on 06-28-2025 Albumin/Globulin [Mass ratio] 1.3 {ratio} 0.9-2.4 [facility] Serum or plasma alkaline tobin sphatase measurementOrdered By: Simone Collins on 06-28-2025 ALP [Catalytic activity/Vol] 71 U/L 40-129 [facility] Serum or plasma calcium shanita urement (mass/volume)Ordered By: Simone Collins on 06-28-2025 Calcium [Mass/Vol] 9.0 mg/dL 7.6-11.0 [facility] Serum or plasma urea nitroge n measurement (mass/volume)Ordered By: Simone Collins on 06-28-2025 Urea nitrogen [Mass/Vol] 16 mg/dL 4-19 [facility] Sodium levelOrdered By: Smooth Collins on 06-28-2025 Sodium [Moles/Vol] 137 mmol/L 133-145 [facility] Total proteinOrdered By: John chong Karina on 06-28-2025 Protein [Mass/Vol] 6.5 g/dL 5.9-8.4 [facility] White blood cell (WBC) count Ordered By: Simone Karina on 06-28-2025 WBC (Bld) [#/Vol] 8.4 10*3/uL 4.4-11.0 [facility] CNPNon 06-25-2025 CNPN Telephone (RADHAN) -- GLENN PARADA ([id number]) 1945 M Date Time Provider Department 06/25/25 ARIES SARABIA During your visit today, we recorded the following information about you: Jael Ch RN 06/25/2025 3:03 PM Signed Voicemail received June 24, 2025 0830 spouse calling to report 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 Patient had complaints of numbness [...] port placement will be done at [facility]. ENT is [facility] provider. Aries Sarabia APRN.[employer] 06/29/2025 7:23 PM Signed I called and [...] out with in the meantime. Aries Sarabia APRN-[employer] Allergies As of Date: 06/25/2025 Noted Allergy [...] Date Reviewed: 04/08/2025 Reviewed by: Aries Sarabia APRN.[employer] - Fully Assessed Reason for Visit: Patient [...] fluct*03/17/2024 C (more content not included)... Normal [facility] MR/PAT.ANEon 06-24-2025 MR/PAT.PO Normal [facility] Oncology Visit Reporton Oncology Visit Report Normal [facility] Surgery Visit Reporton 06-21 Surgery Visit Report Normal [facility] Positron emission tomography scan reportOrdered By: Russell Bellamy on 06-18-2025 PT Unspecified body region [facility] Imaging Services [address] [place] [address] PET/CT Tumor Base -Thigh Init MR#: [id number] Acct: [id number] Name: GLENN PARADA Rep #: [id number] : 1945 M 80 From: Danilo Bellaym MD PCP: Dr. Eloina Chi MD Status: REG CL I Study:PET/CT Tumor Base -Thigh Init Date of E xam: 06/15/25 Exam# [id number] Ordering Dr: Thad Siegel MD PROCEDURE: PET/CT [...] 5. Other findings as noted. [id number] CC: Reta Siegel MD; Dr. Eloina Chi MD ~ Vp [employer]: Signed [facility] Work Phone: Radiation Oncology Visiton 0 06-17-2025 Radiation Oncology Visit Normal [facility] PET/CT Tumor Base -Thigh Ini ton 06-15-2025 PET/CT Tumor Base -Thigh Init Normal [facility] Telephone Encounteron 2024 Senior Cytogenetic Technologist Authentication Interface Message Text Error Normal [facility] [employer] Tumor Board Noteon Senior Cytogenetic Technologist Authentication Interface Message Text Cancer Type: General [...] Eligibility for Supportive Care Services Discussed Yes [facility] Clinical Trial Eligibility Discussed NA Treatment Plan TREASURY SPECIALIST Multidisciplinary Team in Attendance at Tumor Board Radiology - Yes Medical Oncology- Yes Pathology- Yes Radiation Oncology- Yes Surgery- Yes Tumor Board Recommendations Definitive TREASURY SPECIALIST NCCN Requirement NCCN Requirement Fulfilled? Yes The above recommendations were based on NCCN guidelines, as well as consideration of current national standards and review of the literature. Normal [facility] PT D/C Summary (1)on 025 PT D/C Summary (1) Normal [facility] Progress Noteson 06-04-2025 Senior Cytogenetic Technologist Authentication Interface Message Text Documentation: Mode: Telephone Patient Patient Work Phone: Patient Cell Preferred phone: [phone] Consent: I confirmed patient understanding of the [...] Parkinson's who presents today, 06/04/2025, at [facility] for follow up regarding left oropharyngeal [...] Administered Date(s) Administered COVID-19 Vaccine (12+ yrs, [employer]) mRNA, spike protein, LNP, pres. free, 30 mcg/0.3mL dose, lola-sucrose (BIE=288) 06/22/2024 Influenza, injectable, high dose seasonal, trivalent, preservative free (QGC=182) 06/22/2024 Tdap (EDS=249) 12/26/2024 Pathologic Review: Final Diagnosis A. Oropharyngeal, [...] -Discussed his case with Dr. Guerin in [place] for definitive treatment and external referrals placed today -discussed the patient that he will need referrals to [facility], nutrition and dentistry and social work but this can likely be arranged with Dr. Guerin's -we will plan for follow up 2-3 months after treatment with me Thank you so much for allowing me to participate in the care of this patient. Please feel free to contact me if you have any questions or concerns. Reta Siegel MD [employer] Department of Otolaryngology - Head and Neck Surgery [facility], [facility] [employer] [facility] Pager: [phone] [facility] *SPECIMEN FOR SURGICAL PATHO LOGYOrdered By: Sushant Jean-Baptiste on 06-02-2025 Case Report Surgical Pathology R eport Case: [id number] Authorizing Provider: Reta Siegel MD Collected: 05/28/2025 1407 Ordering Location: [facility] Received: 05/31/2025 1043 Otolaryngology (ENT) Pathologist: Sushant Jean-Baptiste MD Specimen: Oropharyngeal, Left tonsillar lesion [facility] Work Phone: Clinical Information [facility] Work Phone: Final Diagnosis t5flbNAyMQTkl8zmEXHt bGFuZz EwMzNcZnRuYmpcdWMxIHtccnRm KDwcsVneQVUzLQKbCW8rhZimqG v6xFxuJVMwzhT1iGQkLTdqp5jm BON6r1olwvuzKHIvOXtdOy6tjF VviQajMxYhWNScSZv9lY61MQNg oM6hhVRvMMr3LYCcvMRemmAnGm KjGFGpgUBqbJN4APAcQT7tkcgv XTtoRBeeLNLmphH2ZPFkoFNdA0 NlEPMmCX3qgcpqTYR5UXlkLCBv EZG6YeEcCQBvp1Nzvtq2LrXvsM FtBDokvDBzkmzvZMRoTuSoCA5z Wh1ms6MpMEN4iadwWUsvZKmeRb EywK4gv8ebhIHzDUjpo7pawwFs nCAlLATtBFYrqaYTHtOQW6rSOG vxHICDIUEVJ89UIJOSYBYyD6WG RL4GDWGrK5ASWBNTWHOBWF7GVL ElUXUvSYAUsA13xr0rrVD6r8Pm LT4xx8KbzRrrLXofUXZbzYWknE crurJuBDzfs1ImL6QtOzWgTBzu jfQdUXCwWrzzsenuEZCjHDJ6ee BbYUMiSOsnHTSoAGzvOl6fySBd aIevBvKzHPXle5hozzTUeuepjT c9d8gkYKPnQrF1yVHkISlnS2mb ynIguYRyXNBfJWu9nY42LRBbuQ 9vpFPtJOuiqsDmMdO1XYzvAZUq FzK4YDWlxEZqQALxS8vcOHW1YJ xdfvQkvdy2QWDhmNB3JQL6OPQc IAElC6MxEE5zLLLppOWeNRu4b9 rvkEuaGYLvEAS4f3enZWtycyCe LH5yor4yoUq0t3lqmmKqDJUpNW EpoFQXIUXvI2KufOomJa8jcOd1 sOteZnzpZPZ6Era3OJ7yne68fd a1uPabOWAopmorBzN1OXlwOYEv honfADn5QXscDZYweYC4YETrgT DeI7ShOJNbPQ3mmwe7IBF2SPhv QCJsWsD0CVUjcGWbHOZksDmhWZ hbg069FGV2FzOmIY0yD3Efa9O8 bB3gtTAdFQJlzOBrWuXiSAWwqh 4yvPGcWIzsa4YuJSP5naC0zIXi bIOlYNRqAZ90Qoeaf6QxKfhpAB N4AHViksVik3Tff7yzBqXvheFq O0hhC1MhUGHdMWPbFOVoRfGbfj Jjc3Nkc6SzxHLhhZh4j9osIDQv FZDnxJxnh2cqCMF4QWIjK2W6yK Hys7daWLthJZKxqHN3mcH8ASCz xVGuW9PnnL5mTIUjPT9vclt0p0 ucEPG7LVmuAAKkJmF2fmS5PNKb rKOkZJNpnVemAWudc369BRM4Yr FqAQNgy9YtC0EouInhY57wtRyp Q78nHXFlzBwugX3aySetnA2fUi BcZnMyNFxxbFxwbGFpblxmMVxm obOdNKepsnncJRGhHYbjG4vwGa QuJKNrlSfrIWftq2IoBLUnVQNa MjJccGFyXHBsYWluXGYxXGZzMj BcbGFuZzEwMzNcaGljaFxmMVxk HfDtHXAlLWinB6skRgMqUsPgAB BFbGVjdHJvbmljYWxseSBTaWdu KVMrZ4A3JVM0FGUulkELuVJjDM LeBSJbfTtqKTRyr58yOPqbUkYf VtTcFL2pfODyEQNiqbvcaLOulm oxUVbnziD4JValuskmWTHoAAry G1lrBaBxFLEbwNekEYmox6GjPM ZrSCPuKerntqU1DDiwMQBqZCT7 xQT3XHPyKWPoEBWrHIMjj55ifP w9UISvwjQ9C0YjMAI7yEQkHQwv F49zd2AdDhYqlfSreMZ5xO7iFU 2sZPNuOARtPv03AYRzjJCzhP4t lcbcTUQsuuRbmSP7PWVfFX0aLQ BfQNB6dOOfNjjhLWmkRHylC08a x1jgOSBdEQ3yCREvWLktOLQfSE ZzMjJcbGFuZzEwMzNcaGljaFxm BUrjMjEnCSViNXtpF3obOuGdOq MyMlxwYXJccGFyfX0= [facility] Work Phone: Gross Description s2lsrYGhOLJikSBeCMGl MVxhbn FrDPPomLJrI1UbqusqPKfcOR5y BA0xtBqabVQqmLIrLXVgBbSxa8 dre084iJRfn2xxLABNsqrucEv6 bUakF02lf5U3XnmzY66wqSXfXG O6DGWuJZTlsSHyCBAdJKT3PKQg fWRaC3cqLWTvRQ1ltddkZTxyEE euBUMkqWE8FFVluLDrL5CyXOVn TQlvFSPsmkl0AuVgKk8crVGkwK cyMFxwYXJkXHBsYWluXGZzMjAg PZ4nDCPveBDlq8t8iQ2uIXGdGL BtUu2bm7XsBGR3tcnrHMjbPsmh YXIgVGhlIHNwZWNpbWVuIGlzIH CsM4CvqgShDJXuhSKeCTwaPAPn x9bcP3zxYGIhoeJnsJ6gladxgQ OzZDnoDQI4cTFvCVDwzQylowHw keArRR3tEVVaIYFuI1KfIHOaN4 5tQBZxgZ1gQQDlFADiBHOlpTJf uMNevJFtkO9oABXyDOZNQGFgXM FkNYTeZrilFvEmrS8ho1tlwPNb LQsil0omptRnIELEsXNqb5NhA3 obXS2pT13db7wxiYNmf1UfzQXy fBvtfTLbwMdpM8Bftkxar7CkrL EgIRXxNrPtjIkyv0EmMY0qMSF4 cmluZyAyLjEgeCAwLjUgeCAwLj VnY52mzV4tINjtiuVaVMEkQwSw QRkrKFKfROMrbJLxLLywIPB2Uj 0rwFWwVXFfnuZ0i0ZwSGmdZN7y DKHhPGRhCWG6OZ2dEJfENL4niL EfDAXemyNSD43rqYNnsY== [facility] Work Phone: Immunohistochemistry t6qdkHTdERHnwXXxJXN wMVxhbn EbEKQrgMRvM1EazrliNXyaOY7d EH7lvHnhmPKfbDMbDXNpXmUhl8 wtx789eZJfw2xhBVZTrvtzfKu9 bOufN80db3O4GzgpH0lbNAClJA YzI7QpEE6pWHDzBqb7MULfMMq3 XHBhcGVydzEyMjQwXHBhcGVyaD F4SCFgEL6zdetxMZeuCPmpQTPt coJ3YBHmyBDbZ0RmIDYhNN2ewl wsUSJ7KLptVCPxNVB0AxNtHBTf k0Xcdgc6JkTqlVOyVPlegPOktc pkCAJeCqUlSN4COM8LGQmDMQ0P NQHMPMKFOoqpF6GVZFeAEwtqoP MlJCHgQC6uLNCEuaLouyGtKYJp mAqitz9tMLocLNAciGBtPJYeOW EftOtny8C0PVDbiZwdPBjibPQf IBRgOnnyVCChVsSpS9raEU02Db KDb5FzmNh2PTdfGQKlOAXnUfTV n8NwhJg1LWfmKHLkFVP8CbTVs5 BvtIz1PNopJLVuQ7hsLMC2d0Mw eXNpbjogTmVnYXRpdmUgXHBhcl eoVHJpPxufRPFtaKOmLBQlgU2r wtN1MGZiEiLmVXpnPJgbhJVxd9 plr5FbS3ssjBdiNHgcv3LpnT0x XFD1kNJgzkUsgWpgOQErj2PnMR DkKTqdy8Mavy8iQJncDCNae5Ad VLybwUSmp2zxw7FmU2abnLdvXJ ner6GefJ9hHOXfFYJmq23tOCcy xe18ZTR2m0kkkASfWOatJgqaiH ErizC1VOcGRDFCQBoEPbKwLK3n KOiRZ8BSCTkZQsawCXIlCIX6VM pqvLliIgatiiDksPQfIeYjaP8t e3GsqEdkDYG1PIg1MCVcn59hFV 6yTVR1lQxyJvYnUdUcYQZ6m9My N4HcRVWfANtnG78pkkUwabNafN wrj973SXKjGZzli6xwDENoQNcj d3QyJHbENQAXYB4QZY0iwET9AF lDVGHPLUsjQZCwVFE9MBqqpWcw MmzipiCriOTtHhTlwQ0mlGmvnW 5cZnMyMCAuXHBhclxwYXJcYiBD v139yn3ianbdQUHvWYBoWOUrtu revGHtUAogIOYVXVXltO2ltF0l iNMcOSChqmtbPICpb2PaPLdkXL M8NELhDSTvP5WfKAYXwdImzBAa LXNwZWNpZmljIHJlYWdlbnRzIC 9wHIRtp5FiqL6erDFeFDOzmN3h KPXzbIRorXKnIlSVb6FsCoieQV PVNNIcNhWBwt5vyCE8CIi9AeEf SXk1KJEuc71fyTGdoDKiqPPqIR WwxlVgdT56ct8fuUS0m4LjKT5l p0BfmRU8HHYwZUTyfhXmy2LxAG DxjzHxeFszqFQjtSApGt5jpHJi J9NqM5wimrCymEAfcPX7pGLnWT AbmGUktGfcXHAuCenrb2OhMXIx ecTiflBsZQEZGFMol4hsFXb9dY ACDQFzV3ZaMUOwqaTkjipxQCCl CBH1gFAruKSaYxKSRVFiu4rhI7 ztHr6qtG10obJ1AK2gl9SsNxYi drF8vkXcmJtrwdNbXT4lEIJdrr TetCBooUZyjMzqv1VxwTHjjPWm FKCzotHwvAwtKMUjHYRVd93oCI hbuRWrp2tpf0XwW8zmoFoiVJnr v7DhcI8wJMpvhnCqjj36PWZlSB 5cE5goGFOfWKAkxxRvvJBca2Jc UQIhwZY0wUGzLCOiVo8aMPSkqa IiHEL5CcBDXC7olwofpECiiUgo ny5nMBKaYDMFJGKutGSwQDBqqU VybWluZWQgdGhhdCBzdWNoIGNs CEDdOL0mYCVqsiLsyGKab5OejR VlzyPup7SqocUeEQZaTAV0QaDv KFqhazN4AYG0DKfnJNOgLGQyXe 8tGRUicX6iC4FjLBU9pnIur4Zo LpUiWAMkw4oviCmpQN7ctUKzRQ ZrGRhwnsVbTBAlhkNphoOkp5Mz X9Q1wO1jRWbou8XgOo0dPDOvd8 LszcHyMhXqDHFgLYfrjOl6TLAb VNY2yJOqp43vJNQdKADstKFvIs zlMTYzyYFiwH4yrgRaRW7yXpgd E73dYACxeT2xc5owe9IwUm9pVS lts1epeUcfHGGmBYmoeFMzlRHv fPThYWepeGpqG0I0cAlojtFtli YjcWE9SN2waNPwPIItirWqT6J7 fRPbAE1dHLBixAKpFVduxqVlb0 dskiRblXB9eWSsBWSAYX2yD1Q4 jLHvDRHso9UeiXPelnJoDFE8yV 3kh3q4ASLgzOtkNadnD2mcw6dk dWxkIGJlIGludGVycHJldGVkIH aiwAzcD9R7vXazfwZlusXsmIJ7 GU1ggCPhVECbktEhR8O1vUKqJN 5rRBXiXOJqryJbQe4uwBnwTEXt dKOgVYlfmlGnp5bczwNnqRH4cS ZlZUUtIAFpcS79aPXmMvJkP34v lDJuFDIsdB9hLKX7yMZwoVRvy7 TcpTamNJmmJZ2nxI3vf3teeAEd OSTNrMokBMmcSu9zHJGqximgtG CzG1VikDbymSHtGDXjWUQsIRKH SUEgYXMgcXVhbGlmaWVkIHRvIH MzeqEaee4trCincFBhc84vxLH9 yGV5VDZxn9WmjtosXVItckqmLn PksQEhKAQuU38TSiTWGDLJU13I MUJYNXHUE7ODI4gXVPM4NQE6Zc xkHJJmB93DJlDUECPUQ80JZJSX HFUVN0UERVFKRIpHY1TJZV0MMD FCCKNWJG8BBPgSWfWVFJqRG6GN BY7TGEDWFGATUG7FDiZbOHrBV7 BRM3vZKLYkORULFKMOPVKsHxGO HV4oBZd7YNxUByB2LRN8Slm9PH FJJIABWW2ICPHMC70PFNIAEWWU W1UXUVTSBnGWXSLHW60JKVIWGI CUV8MXS2yLJMOYPeEYHGYPW26D HZDDSCLPK9IRTXAQGSWPBnYMMe ATQP6VQUJDWGSWYE2HOYwHIjZq GVDEA1TUXrENC7hwPAWFONIXUB OoNS9IsA== [employer] Work Phone: [employer] Work Phone: Progress Noteson 05-28-2025 Senior Cytogenetic Technologist Authentication Interface Message Text Patient notified that provider is running behind LUIS E Stover Normal [facility] [employer] [facility] Senior Cytogenetic Technologist Authentication Interface Message Text OTOLARYNGOLOGY - HEAD AND NECK SURGERY CLINIC NOTE CHIEF COMPLAINT: Chief Complaint Patient presents with New patient, to establish relationship HPI: Glenn Parada is a 80 year old male with PMH significant for Parkinson's who presents today, 05/28/2025, at the [facility] at the request of Referring [...] Administered Date(s) Administered COVID-19 Vaccine (12+ yrs, [employer]) mRNA, spike protein, LNP, pres. free, 30 mcg/0.3mL dose, lola-sucrose (NZV=914) 06/22/2024 Influenza, injectable, high dose seasonal, trivalent, preservative free (IES=071) 06/22/2024 Tdap (YMN=050) 12/26/2024 PHYSICAL EXAM: Vital Signs: BP 106/66 [...] oropharyngeal (more content not included)... Normal [facility] [employer] D/C Summary- SPon 05-27-2025 D/C Summary- SP Normal [facility] PT D/C Summary (1)on 025 PT D/C Summary (1) Normal [facility] CNPNon 05-03-2025 CNPN Telephone (NRMDN) -- GLENN PARADA ([id number]) 1945 M Date Time Provider Department 05/03/25 ARIES SARABIAN During your visit today, we recorded the following information about you: Vicente Linder MA 05/03/2025 7:55 AM Signed Faxed rehab evaluation to [facility] and confirmation received Allergies As of [...] Date Reviewed: 04/08/2025 Reviewed by: Aries Sarabia APRN.[employer] [facility] - Fully Assessed Reason for Visit: Orders [...] Status:Closed by VICENTE LINDER on 05/03/25 Normal [facility] Soft Tissue Neck WITH Contra ston 05-03-2025 Soft Tissue Neck WITH Contrast Normal [facility] Inital Evaluation (1) - PTon 04-26-2025 Inital Evaluation (1) - PT Normal [facility] CNOVon 04-08-2025 CNOV Office Visit (NRMDN) -- GLENN PARADA ([id number]) 1945 M Date Time Provider Department 04/08/25 [...] the visit was discussed with the patient/authorized entry level account representative; all questions welcomed and answered. Patient/authorized entry level account representative agreed to proceed MD Eyal Rosswn BRANDIE [address] [facility] [address] Dear Eloina Chi MD: I had the [...] CR Ques (more content not included)... Normal [facility] Culture, Throaton 03-04-2025 CUT Normal throat crow isolated. No beta-hemolytic streptococcus isolated. Normal [facility] Comment on above: Performed By: #### M 100.1000 ####[facility] [id number] [facility] [place], [address] Throat specimen bacteria yo ntification by cultureOrdered By: Ariel Duque on 03-01-2025 Bacteria identified Cx Nom (Throat) [facility] Culture, Throaton 02-10-2025 CUT Penicillin is the dr ug of choice for Beta Streptococcal infections. For Penicillin allergic patients, Erythromycin may be used. Streptococcus group G Amount Growth 2+ Normal [facility] Comment on above: Performed By: #### M 100.1000 ####[facility] [id number] [facility] [place], [place], [id number] Throat specimen bacteria yo ntification by cultureOrdered By: Ariel Duque on 02-08-2025 Bacteria identified Cx Nom (Throat) Streptococcus group G Abnormal [facility] Culture, Throaton 12-31-2024 CUT #1 Penicillin is the drug of choice for Beta Streptococcal infections. For Penicillin allergic patients, Erythromycin may be used. Streptococcus group F Amount Growth 3+ Normal [facility] Comment on above: Performed By: #### M 100.1000 ####[facility] [id number] [place], [address] Throat specimen bacteria yo ntification by cultureOrdered By: Ariel Duque on 12-28-2024 Bacteria identified Cx Nom (Throat) Streptococcus group F Abnormal [facility] Brain/Head without Contrasto n 12-26-2024 Brain/Head without Contrast Normal [facility] Emergency Department Summary on 12-26-2024 Emergency Department Summary Normal [facility] Hand Min 3 Viewson Hand Min 3 Views Normal [facility] Spine Cervical without Contr ason 12-26-2024 Spine Cervical without Contras Normal [facility] SP/HP.SP.Tanvir 12-23-2024 SP/HP.SP.EV Normal [facility] CNPNon 11-06-2024 CNPN Telephone (GSTNOR) -- GLENN PARADA ([id number]) 1945 M Date Time Provider Department 11/06/24 [...] Status:Closed by MAURICE FOX on 11/09/24 Normal [facility] Urgent Care Visit Reporton 1 12-05-2023 [facility] Office Visit (NREUS2 ) -- GLENN PARADA ([id number]) 1945 M Date Time Provider Department 09/21/24 3:30 PM AMISHA SARABIA NREUS2 During your visit today, we recorded the following information about you: Weight Height 74.8 kg 1.727 m Amisha Sarabia MD 10/04/2024 7:14 PM Signed [facility] - FOLLOW UP EVALUATION MD Eyal Ross [facility] [address] [facility] [address] Dear Eloina Chi MD: I had the [...] Row Office Visit from 09/21/2024 in Neurological [facility] Office Visit from 06/25/2024 in Neurology [facility] [...] NUTRITIONAL SUPPLEMENT (more content not included)... Normal [facility] 08-10-2024 [facility] -- GLENN PARADA ([id number]) 1945 M Date Time Provider Department 08/10/24 [...] wean down or discontinue propranolol. Aries Sarabia APRN.[facility] 08/14/2024 4:17 PM Signed I called and spoke with him and his . He said his dizziness has not been as bad lately and decided he does not want to make this change, but will have reassessed when he sees Dr. Sarabia next month. I asked him to let me know if his symptoms return. Aries Sarabia APRN-[facility] Allergies As of Date: 08/10/2024 (No Known Allergies) Date Reviewed: 07/30/2024 Reviewed by: Maurice Fox MA - Fully Assessed Reason for Visit: Medication Question [6658] Prescriptions as of 08/14/2024 - SENNA 8.6 [...] Status:Closed by JAEL CH on 08/12/24 Normal [facility] CBC W Auto Differential pane l (Bld)on 07-31-2024 Basophils (Bld) [#/Vol] 0.06 10*3/uL Normal <0.11 [facility] Comment on above: Order Comment: Speci men Type: BLOOD SPECIMENOrdering Facility: [facility] Address: [address] [place] [address] Performed By: #### 5 7021-8 ####[facility] [id number] [place] [address] [place] Basophils/100 WBC (Bld) 0.8 % Normal [facility] Comment on above: Order Comment: Speci men Type: BLOOD SPECIMENOrdering Facility: [facility] Address: [address] [place] [address] Performed By: #### 5 7021-8 ####[facility] [id number] [place] [address] [place] Differential cell count method Nom (Bld) Auto Normal [facility] Comment on above: Order Comment: Speci men Type: BLOOD SPECIMENOrdering Facility: [facility] Address: [address] [place] [address] Performed By: #### 5 7021-8 ####[facility] [id number] [place] [address] [place] Eosinophils (Bld) [#/Vol] 0.26 10*3/uL Normal <0.46 [facility] Comment on above: Order Comment: Speci men Type: BLOOD SPECIMENOrdering Facility: [facility] Address: [address] [place] [address] Performed By: #### 5 7021-8 ####[facility] [id number] [place] [address] [place] Eosinophils/100 WBC (Bld) 3.4 % Normal [facility] Comment on above: Order Comment: Speci men Type: BLOOD SPECIMENOrdering Facility: [facility] Address: [address] [place] [address] Performed By: #### 5 7021-8 ####[facility]ITALNCLI [id number] [place] [address] [place] Erythrocyte distribution width (RBC) [Ratio] 12.7 % Normal 11.5-15.0 [facility] Comment on above: Order Comment: Speci men Type: BLOOD SPECIMENOrdering Facility: [facility] Address: [address] [place] [address] Performed By: #### 5 7021-8 ####[facility] [id number] [place] [address] [place] Hematocrit (Bld) [Volume fraction] 38.0 % Low 39.0-51.0 [facility] Comment on above: Order Comment: Speci men Type: BLOOD SPECIMENOrdering Facility: [facility] Address: [address] [place], [place] [address] Performed By: #### 5 7021-8 ####[facility] IRAISDATILUSMAN [id number] [place] [address] [place] Hemoglobin (Bld) [Mass/Vol] 13.0 g/dL Normal 13.0-17.0 [facility] Comment on above: Order Comment: Speci men Type: BLOOD SPECIMENOrdering Facility: [facility] Address: [address] [place] [address] Performed By: #### 5 7021-8 ####[facility] [id number] [place] [address] [place] Immature granulocytes (Bld) [#/Vol] 10*3/uL Normal <0.10 [facility] Comment on above: Order Comment: Speci men Type: BLOOD SPECIMENOrdering Facility: [facility] Address: [address] [place] [address] Performed By: #### 5 7021-8 ####[facility] HOSPITALNCA [id number] [place] [address] [place] Immature granulocytes/100 WBC (Bld) 0.1 % Normal [facility] Comment on above: Order Comment: Speci men Type: BLOOD SPECIMENOrdering Facility: [facility] Address: [address] [place] [address] Performed By: #### 5 7021-8 ####[facility]ITALNCLIA [id number] [place] [address] [place] Lymphocytes (Bld) [#/Vol] 2.55 10*3/uL Normal 1.00-4.00 [facility] Comment on above: Order Comment: Speci men Type: BLOOD SPECIMENOrdering Facility: [facility] Address: [address] [place] [address] Performed By: #### 5 7021-8 ####[facility] IRAISShreyaNCLIA [id number] [place] [address] [place] Lymphocytes/100 WBC (Bld) 33.1 % Normal [facility] Comment on above: Order Comment: Speci men Type: BLOOD SPECIMENOrdering Facility: [facility] Address: [address] [place] [address] Performed By: #### 5 7021-8 ####[facility] HOSPITALUSMAN [id number] [place] [address] [place] MCH (RBC) [Entitic mass] 30.9 pg Normal 26.0-34.0 [facility] Comment on above: Order Comment: Speci men Type: BLOOD SPECIMENOrdering Facility: [facility] Address: [address] [place] [address] Performed By: #### 5 7021-8 ####[facility] HOSPITALLEONIDPAOLOGraciela [id number] [place] [address] [place] MCHC (RBC) [Mass/Vol] 34.2 g/dL Normal 30.5-36.0 [facility] Comment on above: Order Comment: Speci men Type: BLOOD SPECIMENOrdering Facility: [facility] Address: [address] [place] [address] Performed By: #### 5 7021-8 ####[facility] HOSPITALNCLIGraciela [id number] [place] [address] [place] MCV (RBC) [Entitic vol] 90.3 fL Normal 80.0-100.0 [facility] Comment on above: Order Comment: Speci men Type: BLOOD SPECIMENOrdering Facility: [facility] Address: [address] [place] [address] Performed By: #### 5 7021-8 ####[facility] HOSPITALNCLIA [id number] [place] [address] [place] Monocytes (Bld) [#/Vol] 0.75 10*3/uL Normal <0.87 [facility] Comment on above: Order Comment: Speci men Type: BLOOD SPECIMENOrdering Facility: [facility] Address: [address] [place] [address] Performed By: #### 5 7021-8 ####[facility] [id number] [place] [address] [place] Monocytes/100 WBC (Bld) 9.7 % Normal [facility] Comment on above: Order Comment: Speci men Type: BLOOD SPECIMENOrdering Facility: [facility] Address: [address] [place] [address] Performed By: #### 5 7021-8 ####[facility] [id number] [place] [address] [place] Neutrophils (Bld) [#/Vol] 4.08 10*3/uL Normal 1.45-7.50 [facility] Comment on above: Order Comment: Speci men Type: BLOOD SPECIMENOrdering Facility: [facility] Address: [address] [place] [address] Performed By: #### 5 7021-8 ####[facility] [id number] [place] [address] [place] Neutrophils/100 WBC (Bld) 52.9 % Normal [facility] Comment on above: Order Comment: Speci men Type: BLOOD SPECIMENOrdering Facility: [facility] Address: [address] [place] [address] Performed By: #### 5 7021-8 ####[facility] [id number] [place] [address] [place] Nucleated RBC (Bld) [#/Vol] 10*3/uL Normal <0.01 [facility] Comment on above: Order Comment: Speci men Type: BLOOD SPECIMENOrdering Facility: [facility] Address: [address] [place] [address] Performed By: #### 5 7021-8 ####[facility] PATIENCE [id number] [place] [address] [place] Nucleated RBC/100 WBC (Bld) [Ratio] 0.0 /100 WBC Normal [facility] Comment on above: Order Comment: Speci men Type: BLOOD SPECIMENOrdering Facility: [facility] Address: [address] [place] [address] Performed By: #### 5 7021-8 ####[facility] IRAISDATILUSMAN [id number] [place] [address] [place] Platelet mean volume (Bld) [Entitic vol] 9.2 fL Normal 9.0-12.7 [facility] Comment on above: Order Comment: Speci men Type: BLOOD SPECIMENOrdering Facility: [facility] Address: [address] [place] [address] Performed By: #### 5 7021-8 ####[facility] HOSPITALUSMAN [id number] [place] [address] [place] Platelets (Bld) [#/Vol] 232 10*3/uL Normal 150-400 [facility] Comment on above: Order Comment: Speci men Type: BLOOD SPECIMENOrdering Facility: [facility] Address: [address] [place] [address] Performed By: #### 5 7021-8 ####[facility] HOSPITALLEONIDLIGraciela [id number] [place] [address] [place] RBC (Bld) [#/Vol] 4.21 10*6/uL Normal 4.20-6.00 [facility] Comment on above: Order Comment: Speci men Type: BLOOD SPECIMENOrdering Facility: [facility] Address: [address] [place] [address] Performed By: #### 5 7021-8 ####[facility] HOSPITALNCLIA [id number] [place] [address] [place] WBC (Bld) [#/Vol] 7.71 10*3/uL Normal 3.70-11.00 [facility] Comment on above: Order Comment: Speci men Type: BLOOD SPECIMENOrdering Facility: [facility] Address: [address] [place] [address] Performed By: #### 5 7021-8 ####[facility] B[facility] [id number] [place] [id number] [place] [facility] HLA-DQ GENOTYPE on 07-31-2024 [place] INTERPRETATION The HLA-DQ genotype of the patient is supportive of an increased risk of celiac disease. Normal [facility] Comment on above: Order Comment: Speci [facility] Type: BLOOD SPECIMENOrdering Facility: [facility] Address: [address] [place] [address] Performed By: #### C KELLI ####[facility] [id number] [address] [place] CELIAC CATEGORY Category 7 Normal [facility] Comment on above: Order Comment: [facility] Type: BLOOD SPECIMENOrdering Facility: [facility] Address: [address] [place] [address] Result Comment: CATEGORY DQ HAPLOTYPE RELATIVE RISK [...] predicts celiac disease risk haplotypes in the [place], [place] and [place] populations. Immunogenetics. 2009 Jan;61(4):247-56. 2. Akua ACOSTA. Celiac disease: dissecting a complex inflammatory disorder. Ruby Rev Immunol. 2002 Jun;2(9):647-55. 3. Kvng E, Connor HS, Malinda CA, et al. Risk of pediatric celiac disease according to HLA haplotype and country. N Engl J Med. 2014 ;371(1):42-9. HLA typing performed by PCR-RSSOP and/or NGS. This test was developed and its performance characteristics determined by [employer]. The test has not been cleared or approved by the [place] FDA. However, FDA approval was not necessary since this lab is certified under CLIA for high complexity testing. Test performed by: [facility], [address], [place] [address]. CLIA [id number]. Performed By: #### C KELLI ####[facility]ORATORIESCLIA [id number] [address] CELIAC RISK HAPLOTYPE Positive Normal [facility] Comment on above: Order Comment: Speci men Type: BLOOD SPECIMENOrdering Facility: [facility] Address: [address] [place] [address] Performed By: #### C KELLI ####[facility]ORATORIESCLIA [id number] [address] HLA-DQA1 GENOTYPE HLA-DQA1*: 05, 02:01 Normal [facility] Comment on above: Order Comment: Speci men Type: BLOOD SPECIMENOrdering Facility: [facility] Address: [address] [place] [address] Performed By: #### C KELLI ####[facility]ORATORIESCLIA [id number] [address] HLA-DQB1 GENOTYPE HLA-DQB1*: 02:01, 02:02 Normal [facility] Comment on above: Order Comment: Speci [facility] Type: BLOOD SPECIMENOrdering Facility: [facility] Address: [address] [place] [address] Performed By: #### C KELLI ####[facility] LABORATORIESCLIA [id number] [place] [id number] [facility] CELIAC SCREENon 07-31-2024 GLIAD DEAMIDATED IGA QUAL Negative Normal Negative, Test not Indicated [facility] Comment on above: Order Comment: Speci [facility] Type: BLOOD SPECIMENOrdering Facility: [facility] Address: [address] [place] [address] Result Comment: This is used as an aid in diagnosis of celiac disease. Clinical correlation is required. The following results were obtained with an ProspX QUANTA Lite Gliadin IgA JF Gliadin. Gliadin IgA values obtained with different manufacturers' assay methods may not be used interchangeably. The magnitude of the reported IgA levels cannot be correlated to an endpoint titer. Performed By: #### L [id number] ####[facility] LABCLIA [id number] [place] [address] [place] Gliadin peptide IgA Qn (S) 3 Units Normal <20 [facility] Comment on above: Order Comment: Chela barfield Type: BLOOD SPECIMENOrdering Facility: [facility] Address: [address] [place] [address] Performed By: #### L [id number] ####[facility] LABCLIA [id number] [place] [address] [place] INTERPRETATION No serological evide nce of celiac disease, however, if celiac disease is clinically suspected and patient is not on gluten-free diet, histological diagnosis may be considered. HLA testing may help with risk assessment. Normal [facility] Comment on above: Order Comment: Chela barfield Type: BLOOD SPECIMENOrdering Facility: [facility] Address: [address] [place] [address] Performed By: #### L [id number] ####[facility] LABIA [id number] [address] [place] TRANSGLUTAMINASE IGA ABS INTERPRETATION Negative Normal Negative [facility] Comment on above: Order Comment: Chela barfield Type: BLOOD SPECIMENOrdering Facility: [facility] Address: [address] [place] [address] Result Comment: The following results were obtained with ProspX QUANTA Lite R h-tTG IgA JF.???R h-tTG IgA values obtained with different manufacturers' assay methods may not be used interchangeably. The magnitude of the reported IgA levels cannot be corelated to an endpoint???concentration. This is used as an aid in diagnosis of celiac disease. Clinical correlation is required. Performed By: #### L [id number] ####[facility] LABCLIA [id number] [place] [address] [place] tTG IgA Qn (S) <2 Normal <4 [facility] Comment on above: Order Comment: Chela barfield Type: BLOOD SPECIMENOrdering Facility: [facility] Address: [address] [place] [address] Performed By: #### L [id number] ####[facility] LABCLIA [id number] [place] [id number] [id number] [place] Comprehensive metabolic 2000 panelon 07-31-2024 Albumin [Mass/Vol] 3.9 g/dL Normal 3.9-4.9 [facility] Comment on above: Order Comment: Speci men Type: BLOOD SPECIMENOrdering Facility: [facility] Address: [address] [place] [address] Performed By: #### 2 4323-8 ####[facility] ALEXANDRA MILLTOWNCLIA [id number] [place] [address] [place] ALP [Catalytic activity/Vol] 84 U/L Normal 38-113 [facility] Comment on above: Order Comment: Speci men Type: BLOOD SPECIMENOrdering Facility: [facility] Address: [address] [place] [address] Performed By: #### 2 4323-8 ####[facility] MILLTOWNCLIA [id number] [place] [address] [place] ALT [Catalytic activity/Vol] 7 U/L Low 10-54 [facility] Comment on above: Order Comment: Speci men Type: BLOOD SPECIMENOrdering Facility: [facility] Address: [address] [place] [address] Performed By: #### 2 4323-8 ####[facility] ALEXANDRA MILLTOWNCLIA [id number] [place] [address] [place] Anion gap [Moles/Vol] 10 mmol/L Normal 8-15 [facility] Comment on above: Order Comment: Speci men Type: BLOOD SPECIMENOrdering Facility: [facility] Address: [address] [place] [address] Performed By: #### 2 4323-8 ####[facility] MILLTOWNCLIA [id number] [place] [address] [place] AST [Catalytic activity/Vol] 14 U/L Normal 14-40 [facility] Comment on above: Order Comment: Speci men Type: BLOOD SPECIMENOrdering Facility: [facility] Address: [address] [place] [address] Performed By: #### 2 4323-8 ####[facility] ALEXANDRAPROCTOR HOSPITALWNCLIA [id number] [place] [address] [place] Bilirubin [Mass/Vol] 0.5 mg/dL Normal 0.2-1.3 [facility] Comment on above: Order Comment: Speci men Type: BLOOD SPECIMENOrdering Facility: [facility] Address: [address] [place] [address] Performed By: #### 2 4323-8 ####[facility]ITALELONIDLIA [id number] [place] [address] [place] Calcium [Mass/Vol] 9.1 mg/dL Normal 8.5-10.2 [facility] Comment on above: Order Comment: Speci men Type: BLOOD SPECIMENOrdering Facility: [facility] Address: [address] [place] [address] Performed By: #### 2 4323-8 ####[facility] PEMBROKEWNCLIA [id number] [place] [address] [place] Chloride [Moles/Vol] 97 mmol/L Low 98-107 [facility] Comment on above: Order Comment: Speci men Type: BLOOD SPECIMENOrdering Facility: [facility] Address: [address] [place] [address] Performed By: #### 2 4323-8 ####[facility] ALEXANDRA MILLTOWNCLIA [id number] [place] [address] [place] CO2 [Moles/Vol] 25 mmol/L Normal 22-30 [facility] Comment on above: Order Comment: Speci men Type: BLOOD SPECIMENOrdering Facility: [facility] Address: [address] [place] [address] Performed By: #### 2 4323-8 ####[facility] IRAISDATILLEONIDGraciela [id number] [place] [address] [place] Creatinine [Mass/Vol] 1.02 mg/dL Normal 0.73-1.22 [facility] Comment on above: Order Comment: Speci men Type: BLOOD SPECIMENOrdering Facility: [facility] Address: [address] [place] [address] Performed By: #### 2 4323-8 ####[facility] [id number] [place] [address] [place] Creatinine and Glomerular filtration rate.predicted panel (S/P/Bld) 74 mL/min/1.73m??? Normal >=60 [facility] Comment on above: Order Comment: Speci men Type: BLOOD SPECIMENOrdering Facility: [facility] Address: [address] [place] [address] Result Comment: Judy mated Glomerular Filtration Rate [...] actual GFR. Performed By: #### 2 4323-8 ####[facility] [id number] [place] [address] [place] Glucose [Mass/Vol] 83 mg/dL Normal 74-99 [facility] Comment on above: Order Comment: Speci men Type: BLOOD SPECIMENOrdering Facility: [facility] Address: [address] [place] [address] Result Comment: The [place] [employer] (ADA) provides guidance for cutoff [...] Standards of Medical Care in Diabetes 2016, [place] [employer]. Diabetes Care. 2016.39(Suppl 1). Performed By: #### 2 4323-8 ####[facility] MILLTOWNCLIA [id number] [place] [address] [place] Potassium [Moles/Vol] 4.3 mmol/L Normal 3.7-5.1 [facility] Comment on above: Order Comment: Speci men Type: BLOOD SPECIMENOrdering Facility: [facility] Address: [address] [place] [address] Performed By: #### 2 4323-8 ####[facility]ITALLIA [id number] [place] [address] [place] Protein [Mass/Vol] 6.6 g/dL Normal 6.3-8.0 [facility] Comment on above: Order Comment: Speci men Type: BLOOD SPECIMENOrdering Facility: [facility] Address: [address] [place] [address] Performed By: #### 2 4323-8 ####[facility]KEWNCLIA [id number] [place] [address] [place] Sodium [Moles/Vol] 132 mmol/L Low 136-144 [facility] Comment on above: Order Comment: Speci men Type: BLOOD SPECIMENOrdering Facility: [facility] Address: [address] [place] [address] Performed By: #### 2 4323-8 ####[facility] MILLWNCLIA [id number] [place] [address] [place] Urea nitrogen [Mass/Vol] 12 mg/dL Normal 9-24 [facility] Comment on above: Order Comment: Speci men Type: BLOOD SPECIMENOrdering Facility: [facility] Address: [address] [place] [address] Performed By: #### 2 4323-8 ####[facility] ALEXANDRA MILLTONCLIA [id number] [place] [address] [place] IgA SerPl-mCncon 07-31-2024 IgA [Mass/Vol] 185 mg/dL Normal 70-400 [facility] Comment on above: Order Comment: Speci men Type: BLOOD SPECIMENOrdering Facility: [facility] Address: [address] [place] [address] Performed By: #### 2 458-8 ####[facility] LABCLIA [id number] [place] [address] [place] TSH SerPl-aCncon 07-31-2024 TSH Qn 2.990 m[IU]/L Normal 0.270-4.20 0 [facility] Comment on above: Order Comment: Speci men Type: BLOOD SPECIMENOrdering Facility: [facility] Address: [address] [place] [address] Performed By: #### 3 016-3 ####[facility] LABCLIA [id number] [place] [address] [place] CNOVon 07-30-2024 CNOV Office Visit ([facility] ) -- GLENN PARADA ([id number]) 1945 M Date Time Provider Department 07/30/24 [...] - Fully (more content not included)... Normal [facility] Absolute lymphocyte countOrd ered By: Eloina Chi on 09-20-2023 Lymphocytes Auto (Unsp spec) [#/Vol] 2.02 10*3/uL 0.83-4.51 [facility] Basophil percentageOrdered B y: Eloina Chi on 09-20-2023 Basophils/100 WBC (Bld) 1.0 % 0-1 [facility] Bilirubin [Mass/Vol] 0.90 mg/dL 0.20-1.00 [facility] Comment on above: For patients on eltr ombopag therapy, use of Dimension [place] TBIL is not recommended. Chloride [Moles/Vol] 104 mmol/L 98-107 [facility] Cholesterol [Mass/Vol] 173 mg/dL <200 [facility] Comment on above: <200 mg/dL Desirable 200-240 mg/dL Borderline >240 mg/dL High Risk Eosinophils/100 WBC (Bld) 5.0 % 0-5 [facility] Glucose [Mass/Vol] 102 mg/dL 74-106 [facility] Comment on above: Fasting Glucose resu lt from 100 to 125 mg/dL suggests IMPAIRED HOMEOSTASIS per A.D.A. criteria. Neutrophils (Bld) [#/Vol] 3.0 10*3/uL 2.0-7.7 [facility] Neutrophils/100 WBC (Bld) 49.4 % 47-70 [facility] Potassium [Moles/Vol] 4.0 mmol/L 3.5-5.1 [facility] Protein [Mass/Vol] 6.9 g/dL 6.4-8.2 [facility] Sodium [Moles/Vol] 134 mmol/L 136-145 [facility] Triglyceride [Mass/Vol] 90 mg/dL <199 [facility] Comment on above: The drugs N-Acetylcy steine and Metamizole may falsely depress this assay.Serum Triglycerides Reference Interval Normal <150 mg/dL Borderline high 150 - 199 mg/dL High 200 - 499 mg/dL Very High > or = 500 mg/dL WBC (Bld) [#/Vol] 6.0 10*3/uL 4.4-11.0 [facility] Blood erythrocytes count (nu mber/volume)Ordered By: Eloina Chi on 09-20-2023 RBC (Bld) [#/Vol] 4.39 10*6/uL 4.6-6.2 [facility] Blood hemoglobin measurement (mass/volume)Ordered By: Eloina Chi on 09-20-2023 Hemoglobin (Bld) [Mass/Vol] 13.3 g/dL 13.0-16.5 [facility] Blood lymphocytes/100 leukoc ytesOrdered By: Eloina Chi on 09-20-2023 Lymphocytes/100 WBC (Bld) 33.8 % 19-41 [facility] Blood monocytes/100 leukocyt esOrdered By: Eloina Chi on 09-20-2023 Monocytes/100 WBC (Bld) 10.6 % 0-10 [facility] Blood platelet mean volumeOr dered By: Eloina Chi on 09-20-2023 Platelet mean volume (Bld) [Entitic vol] 10.9 fL 6.2-12.0 [facility] Determination of erythrocyte mean corpuscular volume (MCV)Ordered By: Eloina Chi on 09-20-2023 MCV (RBC) [Entitic vol] 91.3 fL 80-94 [facility] Hematocrit Auto (Bld) [Volum e fraction]Ordered By: Eloina Chi on 09-20-2023 Hematocrit (Bld) [Volume fraction] 40.1 % 40-54 [facility] Laboratory - Chemistry and C hemistry - challengeOrdered By: Eloina Chi on 09-20-2023 ALP [Catalytic activity/Vol] 68 U/L 45-117 [facility] ALT [Catalytic activity/Vol] 11 U/L 16-61 [facility] CO2 [Moles/Vol] 24.0 mmol/L 21.0-32.0 [facility] Free T4 [Mass/Vol] 1.22 ng/dL 0.76-1.46 [facility] Globulin (S) [Mass/Vol] 3.3 g/dL 2.2-4.2 [facility] Urea nitrogen/Creatinine [Mass ratio] 12.8 mg/mg 10-20 [facility] - Hematology and Cell countsOrdered By: Eloina Chi on 09-20-2023 Erythrocyte distribution width (RBC) [Entitic vol] 43.6 fL 35.1-43.9 [facility] Erythrocyte distribution width (RBC) [Ratio] 13.0 % 11.6-14.6 [facility] Immature granulocytes/100 WBC (Bld) 0.200 % 0.0-0.9 [facility] Comment on above: IG% - Immature Granu locytes (promyelocytes, myelocytes and metamyelocytes) > 1% indicates that a LEFT SHIFT is Present. MCH (RBC) [Entitic mass] 30.3 pg 27.0-32.0 [facility] Nucleated RBC/100 WBC (Bld) [Ratio] 0 % 0-5 [facility] MCHC Auto (RBC) [Mass/Vol]Or dered By: Eloina Chi on 09-20-2023 MCHC (RBC) [Mass/Vol] 33.2 g/dL 32-36 [facility] No Panel InformationOrdered By: Eloina Chi on 09-20-2023 Estimated GFR (MDRD) Amer 84 mL/min >60 [facility] Comment on above: GFR Calc Estimated GFR (MDRD) Non-Af Amer 69 mL/min >60 [facility] Comment on above: Non- GFR Calc Prostate Specific Antigen Screen 1.64 ng/mL 0.00-4.00 [facility] Comment on above: This test was perfor med using the TPSA assay method for theXolveMobiMagic chemistry system. Values obtained with differentassay methods cannot be used interchangably.When changing PSA assays in the course of monitoring apatient, additional sequential testing should be carriedout to confirm baseline values. Thyroid Stimulating Hormone (TSH) 2.43 uIU/mL 0.358-3.74 [facility] Platelets bldOrdered By: Shaneka Chi on 09-20-2023 Platelets (Bld) [#/Vol] 233 10*3/uL 150-450 [facility] Serum or plasma albumin shanita urement (mass/volume)Ordered By: Eloina Chi on 09-20-2023 Albumin [Mass/Vol] 3.6 g/dL 3.2-5.0 [facility] Serum or plasma albumin/glob ulin mass ratioOrdered By: Eloina Chi on 09-20-2023 Albumin/Globulin [Mass ratio] 1.1 {ratio} 0.9-2.4 [facility] Serum or plasma calcium shanita urement (mass/volume)Ordered By: Eloina Chi on 09-20-2023 Calcium [Mass/Vol] 8.8 mg/dL 8.5-10.1 [facility] Serum or plasma cholesterol in HDL measurement (mass/volume)Ordered By: Eloina Chi on 09-20-2023 Cholesterol in HDL [Mass/Vol] 45 mg/dL >40 [facility] Comment on above: The drugs N-Acetylcy steine and Metamizole may falsely depress this assay. Reference Range HDL <40 mg/dL Low HDL Cholesterol HDL >or= 60 mg/dL High HDL Cholesterol Serum or plasma cholesterol in VLDL measurement (mass/volume)Ordered By: Eloina Chi on 09-20-2023 Cholesterol in VLDL [Mass/Vol] 18 mg/dL 5-40 [facility] Serum or plasma creatinine m easurement (mass/volume)Ordered By: Eloina Chi on 09-20-2023 Creatinine [Mass/Vol] 1.09 mg/dL 0.70-1.30 [facility] Comment on above: The validity of the calculated GFR & GFRAA in patients over 70 years has not been determined. Clinical correlation is essential. Serum or plasma low density lipoprotein (LDL) cholesterol measurement (mass/volume)Ordered By: Eloina Chi on 09-20-2023 Cholesterol in LDL [Mass/Vol] 110 mg/dL 0-130 [facility] Serum or plasma urea nitroge n measurement (mass/volume)Ordered By: Eloina Chi on 09-20-2023 Urea nitrogen [Mass/Vol] 14 mg/dL 7-18 [facility] Thin prep Papanicolaou smear with manual screeningOrdered By: Eloina Chi on 09-20-2023 Thin prep Papanicolaou smear with manual screening 15 U/L 15-37 [facility] Thin prep Papanicolaou smear with manual screening 6 5-15 [facility] Vital Signs Date Time Vital Sign Value Performing Clinician Facility 08-18-2025 13:56-0500 Body height 172.72 cm Eloina Chi MD Work Phone: [facility] 08-18-2025 13:56-0500 Body mass index (BMI) [Ratio] 22.6 kg/m2 Eloina Chi MD Work Phone: [facility] 08-18-2025 13:56-0500 Body temperature 97.5 [degF] Eloina Chi MD Work Phone: [facility] 08-18-2025 13:56-0500 Body weight 67.33 kg Eloina Chi MD Work Phone: [facility] 08-18-2025 13:56-0500 Diastolic blood pressure 65 mm[Hg] Eloina Chi MD Work Phone: [facility] 08-18-2025 13:56-0500 Heart rate 101 /min Eloina Chi MD Work Phone: [facility] 08-18-2025 13:56-0500 Respiratory rate 18 /min Eloina Chi MD Work Phone: [facility] 08-18-2025 13:56-0500 SaO2% (BldA) [Mass fraction] 97 % Eloina Chi MD Work Phone: [facility] 08-18-2025 13:56-0500 Systolic blood pressure 103 mm[Hg] Eloina Chi MD Work Phone: [facility] 08-16-2025 13:33-0500 Body weight 67.16 kg Eloina hCi MD Work Phone: [facility] 08-11-2025 13:35-0400 Body height 172.72 cm Eloina Chi MD Work Phone: [facility] 08-11-2025 13:35-0400 Body mass index (BMI) [Ratio] 22.5 kg/m2 Eloina Chi MD Work Phone: [facility] 08-11-2025 13:35-0400 Body temperature 97.9 [degF] Eloina Chi MD Work Phone: 6(294)125-741036 [place] [address] 08-11-2025 13:35-0400 Body weight 67.16 kg Eloina Chi MD Work Phone: [facility] 08-11-2025 13:35-0400 Diastolic blood pressure 73 mm[Hg] Eloina Chi MD Work Phone: 5(910)147-644536 [place] [address] 08-11-2025 13:35-0400 Heart rate 103 /min Eloina Chi MD Work Phone: 5(278)902-930882 [place] [address] 08-11-2025 13:35-0400 Respiratory rate 16 /min Eloina Chi MD Work Phone: 1(075)015-679136 [place] [address] 08-11-2025 13:35-0400 SaO2% (BldA) [Mass fraction] 100 % Eloina Chi MD Work Phone: 6(946)447-600736 [place] [address] 08-11-2025 13:35-0400 Systolic blood pressure 119 mm[Hg] Eloina Chi MD Work Phone: 3(430)313-866082 [place] [address] 08-10-2025 14:00-0400 Body temperature 98 [degF] Eloina Chi MD Work Phone: 7(977)814-546236 [place] [address] 08-10-2025 14:00-0400 Diastolic blood pressure 68 mm[Hg] Eloina Chi MD Work Phone: 6(915)587-098936 [place] [address] 08-10-2025 14:00-0400 Heart rate 90 /min Eloina Chi MD Work Phone: [facility] 08-10-2025 14:00-0400 Respiratory rate 18 /min Eloina Chi MD Work Phone: [facility] 08-10-2025 14:00-0400 SaO2% (BldA) [Mass fraction] 98 % Eloina Chi MD Work Phone: 8(047)646-526436 [place] [address] 08-10-2025 14:00-0400 Systolic blood pressure 115 mm[Hg] Eloina Chi MD Work Phone: 8(652)518-883582 [place] [address] 08-10-2025 08:40-0400 Body temperature 98.2 [degF] Eloina Chi MD Work Phone: 1(291)428-637782 [place] [address] 08-10-2025 08:40-0400 Diastolic blood pressure 56 mm[Hg] Eloina Chi MD Work Phone: 7(640)187-922582 [place] [address] 08-10-2025 08:40-0400 Heart rate 95 /min Eloina Chi MD Work Phone: 2(955)802-702882 [place] [address] 08-10-2025 08:40-0400 Respiratory rate 16 /min Eloina Chi MD Work Phone: 8(091)205-009282 [place] [address] 08-10-2025 08:40-0400 SaO2% (BldA) [Mass fraction] 95 % Eloina Chi MD Work Phone: 8(198)273-045382 [place] [address] 08-10-2025 08:40-0400 Systolic blood pressure 105 mm[Hg] Eloina Chi MD Work Phone: 0(684)268-466382 [place] [address] 08-10-2025 03:40-0400 Body mass index (BMI) [Ratio] 23.2 kg/m2 Eloina Chi MD Work Phone: 3(381)961-906082 [place] [address] 08-10-2025 03:40-0400 Body weight 69.3 kg Eloina Chi MD Work Phone: 3(749)824-597982 [place] [address] 08-09-2025 13:52-0400 Body height 172.72 cm Eloina Chi MD Work Phone: 5(557)169-150182 [place] [address] 08-04-2025 13:47-0400 Body mass index (BMI) [Ratio] 25.8 kg/m2 Eloina Chi MD Work Phone: 9(768)758-720182 [place] [address] 08-04-2025 13:47-0400 Body temperature 99 [degF] Eloina Chi MD Work Phone: [facility] 08-04-2025 13:47-0400 Body weight 76.99 kg Eloina Chi MD Work Phone: 5(465)515-978836 [place] [address] 08-04-2025 13:47-0400 Diastolic blood pressure 75 mm[Hg] Eloina Chi MD Work Phone: 3(679)147-900982 [place] [address] 08-04-2025 13:47-0400 Heart rate 93 /min Eloina Chi MD Work Phone: 2(010)938-995182 [place] [address] 08-04-2025 13:47-0400 Respiratory rate 20 /min Eloina Chi MD Work Phone: 2(864)632-122582 [place] [address] 08-04-2025 13:47-0400 SaO2% (BldA) [Mass fraction] 93 % Eloina Chi MD Work Phone: 0(328)268-553682 [place] [address] 08-04-2025 13:47-0400 Systolic blood pressure 130 mm[Hg] Eloina Chi MD Work Phone: 9(487)681-998582 [place] [address] 08-04-2025 12:00-0400 Respiratory rate 16 /min Eloina Chi MD Work Phone: 9(706)531-297982 [place] [address] 08-04-2025 02:38-0400 Body mass index (BMI) [Ratio] 25.8 kg/m2 Eloina Chi MD Work Phone: 4(732)649-273782 [place] [address] 08-04-2025 02:38-0400 Body weight 77 kg Eloina Chi MD Work Phone: 6(234)662-347982 [place] [address] 07-31-2025 07:00-0400 Inhaled oxygen flow rate 2 L/min Eloina Chi MD Work Phone: 7(602)058-166382 [place] [address] 07-28-2025 11:38-0400 Body mass index (BMI) [Ratio] 23.7 kg/m2 Eloina Chi MD Work Phone: 3(798)084-823582 [place] [address] 07-28-2025 11:38-0400 Body temperature 97.1 [degF] Eloina Chi MD Work Phone: 4(796)846-810236 [place] [address] 07-28-2025 11:38-0400 Body weight 70.76 kg Eloina Chi MD Work Phone: [facility] 07-28-2025 11:38-0400 Diastolic blood pressure 68 mm[Hg] Eloina Chi MD Work Phone: [facility] 07-28-2025 11:38-0400 Heart rate 93 /min Eloina Chi MD Work Phone: [facility] 07-28-2025 11:38-0400 Respiratory rate 16 /min Eloina Chi MD Work Phone: [facility] 07-28-2025 11:38-0400 SaO2% (BldA) [Mass fraction] 98 % Eloina Chi MD Work Phone: [facility] 07-28-2025 11:38-0400 Systolic blood pressure 119 mm[Hg] Eloina Chi MD Work Phone: [facility] 07-28-2025 11:14-0400 Body weight 67.16 kg Eloina Chi MD Work Phone: [facility] 07-26-2025 14:44-0400 Diastolic blood pressure 69 mm[Hg] Eloina Chi MD Work Phone: [facility] 07-26-2025 14:44-0400 Heart rate 87 /min Eloina Chi MD Work Phone: [facility] 07-26-2025 14:44-0400 Respiratory rate 16 /min Eloina Chi MD Work Phone: [facility] 07-26-2025 14:44-0400 Systolic blood pressure 116 mm[Hg] Eloina Chi MD Work Phone: [facility] 07-26-2025 08:39-0400 Body mass index (BMI) [Ratio] 22.5 kg/m2 Eloina Chi MD Work Phone: [facility] 07-26-2025 08:39-0400 Body temperature 99 [degF] Eloina Chi MD Work Phone: [facility] 07-26-2025 08:39-0400 Body weight 67.16 kg Eloina Chi MD Work Phone: [facility] 07-26-2025 08:39-0400 Diastolic blood pressure 55 mm[Hg] Eloina Chi MD Work Phone: 1(638)[phone] [place] [address] 07-26-2025 08:39-0400 Heart rate 86 /min Eloina Chi MD Work Phone: [facility] 07-26-2025 08:39-0400 Respiratory rate 18 /min Eloina Chi MD Work Phone: [facility] 07-26-2025 08:39-0400 SaO2% (BldA) [Mass fraction] 93 % Eloina Chi MD Work Phone: 3(423)[phone] [place] [address] 07-26-2025 08:39-0400 Systolic blood pressure 90 mm[Hg] Eloina Chi MD Work Phone: [facility] 07-21-2025 13:35-0400 Body height 172.72 cm Eloina Chi MD Work Phone: 4(022)[phone] [address] 07-21-2025 13:35-0400 Body mass index (BMI) [Ratio] 23.8 kg/m2 Eloina Chi MD Work Phone: 5(460)[phone] [place] [address] 07-21-2025 13:35-0400 Body temperature 97.4 [degF] Eloina Chi MD Work Phone: [facility] 07-21-2025 13:35-0400 Body weight 71.27 kg Eloina Chi MD Work Phone: [facility] 07-21-2025 13:35-0400 Diastolic blood pressure 72 mm[Hg] Eloina Chi MD Work Phone: [facility] 07-21-2025 13:35-0400 Heart rate 89 /min Eloina Chi MD Work Phone: [facility] 07-21-2025 13:35-0400 Respiratory rate 16 /min Eloina Chi MD Work Phone: [facility] 07-21-2025 13:35-0400 SaO2% (BldA) [Mass fraction] 99 % Eloina Chi MD Work Phone: [facility] 07-21-2025 13:35-0400 Systolic blood pressure 118 mm[Hg] Eloina Chi MD Work Phone: [facility] 07-19-2025 09:57-0400 Body height 172.72 cm Eloina Chi MD Work Phone: [facility] 07-19-2025 09:57-0400 Body weight 69.59 kg Eloina Chi MD Work Phone: [facility] 07-19-2025 08:24-0400 Body mass index (BMI) [Ratio] 23.3 kg/m2 Eloina Chi MD Work Phone: [facility] 07-19-2025 08:24-0400 Body temperature 98.4 [degF] Eloina Chi MD Work Phone: [facility] 07-19-2025 08:24-0400 Body weight 69.59 kg Eloina Chi MD Work Phone: [facility] 07-19-2025 08:24-0400 Diastolic blood pressure 62 mm[Hg] Eloina Chi MD Work Phone: [facility] 07-19-2025 08:24-0400 Heart rate 88 /min Eloina Chi MD Work Phone: [facility] 07-19-2025 08:24-0400 Respiratory rate 18 /min Eloina Chi MD Work Phone: [facility] 07-19-2025 08:24-0400 SaO2% (BldA) [Mass fraction] 96 % Eloina Chi MD Work Phone: [facility] 07-19-2025 08:24-0400 Systolic blood pressure 100 mm[Hg] Eloina Chi MD Work Phone: [facility] 07-14-2025 13:30-0400 Body height 172.72 cm Eloina Chi MD Work Phone: [facility] 07-14-2025 13:30-0400 Body mass index (BMI) [Ratio] 24.3 kg/m2 Eloina Chi MD Work Phone: [facility] 07-14-2025 13:30-0400 Body temperature 96.8 [degF] Eloina Chi MD Work Phone: [facility] 07-14-2025 13:30-0400 Body weight 72.65 kg Eloina Chi MD Work Phone: 8(819)[phone] [place] [address] 07-14-2025 13:30-0400 Diastolic blood pressure 69 mm[Hg] Eloina Chi MD Work Phone: 2(296)[phone] [address] 07-14-2025 13:30-0400 Heart rate 86 /min Eloina Chi MD Work Phone: [facility] 07-14-2025 13:30-0400 Respiratory rate 18 /min Eloina Chi MD Work Phone: [facility] 07-14-2025 13:30-0400 SaO2% (BldA) [Mass fraction] 96 % Eloina Chi MD Work Phone: 0(359)[phone] [place] [address] 07-14-2025 13:30-0400 Systolic blood pressure 127 mm[Hg] Eloina Chi MD Work Phone: [facility] 07-12-2025 07:59-0400 Body height 172.72 cm Eloina Chi MD Work Phone: [facility] 07-12-2025 07:59-0400 Body mass index (BMI) [Ratio] 23.8 kg/m2 Eloina Chi MD Work Phone: [facility] 07-12-2025 07:59-0400 Body temperature 98.4 [degF] Eloina Chi MD Work Phone: [facility] 07-12-2025 07:59-0400 Body weight 71.01 kg Eloina Chi MD Work Phone: [facility] 07-12-2025 07:59-0400 Diastolic blood pressure 63 mm[Hg] Eloina Chi MD Work Phone: [facility] 07-12-2025 07:59-0400 Heart rate 102 /min Eloina Chi MD Work Phone: [facility] 07-12-2025 07:59-0400 Respiratory rate 18 /min Eloina Chi MD Work Phone: [facility] 07-12-2025 07:59-0400 SaO2% (BldA) [Mass fraction] 96 % Eloina Chi MD Work Phone: [facility] 07-12-2025 07:59-0400 Systolic blood pressure 100 mm[Hg] Eloina Chi MD Work Phone: [facility] 07-07-2025 14:02-0400 Body mass index (BMI) [Ratio] 24.2 kg/m2 Eloina Chi MD Work Phone: [facility] 07-07-2025 14:02-0400 Body temperature 97.3 [degF] Eloina Chi MD Work Phone: [facility] 07-07-2025 14:02-0400 Body weight 72.31 kg Eloina Chi MD Work Phone: [facility] 07-07-2025 14:02-0400 Diastolic blood pressure 71 mm[Hg] Eloina Chi MD Work Phone: [facility] 07-07-2025 14:02-0400 Heart rate 83 /min Eloina Chi MD Work Phone: [facility] 07-07-2025 14:02-0400 Respiratory rate 14 /min Eloina Chi MD Work Phone: [facility] 07-07-2025 14:02-0400 SaO2% (BldA) [Mass fraction] 97 % Eloina Chi MD Work Phone: [facility] 07-07-2025 14:02-0400 Systolic blood pressure 116 mm[Hg] Eloina Chi MD Work Phone: [facility] 07-05-2025 08:37-0400 Body mass index (BMI) [Ratio] 23.6 kg/m2 Eloina Chi MD Work Phone: [facility] 07-05-2025 08:37-0400 Body temperature 98.3 [degF] Eloina Chi MD Work Phone: [facility] 07-05-2025 08:37-0400 Body weight 70.56 kg Eloina Chi MD Work Phone: [facility] 07-05-2025 08:37-0400 Diastolic blood pressure 70 mm[Hg] Eloina Chi MD Work Phone: [facility] 07-05-2025 08:37-0400 Heart rate 87 /min Eloina Chi MD Work Phone: [facility] 07-05-2025 08:37-0400 Respiratory rate 16 /min Eloina Chi MD Work Phone: [facility] 07-05-2025 08:37-0400 SaO2% (BldA) [Mass fraction] 95 % Eloina Chi MD Work Phone: [facility] 07-05-2025 08:37-0400 Systolic blood pressure 106 mm[Hg] Eloina Chi MD Work Phone: [facility] 06-30-2025 10:15-0400 Body temperature 97.4 [degF] Eloina Chi MD Work Phone: [facility] 06-30-2025 10:15-0400 Diastolic blood pressure 61 mm[Hg] Eloina Chi MD Work Phone: [facility] 06-30-2025 10:15-0400 Heart rate 82 /min Eloina Chi MD Work Phone: [facility] 06-30-2025 10:15-0400 Respiratory rate 16 /min Eloina Chi MD Work Phone: [facility] 06-30-2025 10:15-0400 SaO2% (BldA) [Mass fraction] 92 % Eloina Chi MD Work Phone: [facility] 06-30-2025 10:15-0400 Systolic blood pressure 105 mm[Hg] Eloina Chi MD Work Phone: [facility] 06-30-2025 07:23-0400 Body height 172.72 cm Eloina Chi MD Work Phone: [facility] 06-30-2025 07:23-0400 Body mass index (BMI) [Ratio] 23.4 kg/m2 Eloina Chi MD Work Phone: [facility] 06-30-2025 07:23-0400 Body weight 70 kg Eloina Chi MD Work Phone: [facility] 06-28-2025 15:02-0400 Body height 172.72 cm Eloina Chi MD Work Phone: [facility] 06-28-2025 15:02-0400 Body mass index (BMI) [Ratio] 23.8 kg/m2 Eloina Chi MD Work Phone: [facility] 06-28-2025 15:02-0400 Body temperature 98.2 [degF] Eloina Chi MD Work Phone: [facility] 06-28-2025 15:02-0400 Body weight 71.24 kg Eloina Chi MD Work Phone: [facility] 06-28-2025 15:02-0400 Diastolic blood pressure 80 mm[Hg] Eloina Chi MD Work Phone: [facility] 06-28-2025 15:02-0400 Heart rate 76 /min Eloina Chi MD Work Phone: [facility] 06-28-2025 15:02-0400 Respiratory rate 18 /min Eloina Chi MD Work Phone: [facility] 06-28-2025 15:02-0400 SaO2% (BldA) [Mass fraction] 98 % Eloina Chi MD Work Phone: [facility] 06-28-2025 15:02-0400 Systolic blood pressure 130 mm[Hg] Eloina Chi MD Work Phone: [facility] 06-22-2025 08:24-0400 Body height 172.72 cm Eloina Chi MD Work Phone: [facility] 06-22-2025 08:24-0400 Body mass index (BMI) [Ratio] 23.9 kg/m2 Eloina Chi MD Work Phone: [facility] 06-22-2025 08:24-0400 Body temperature 98.3 [degF] Eloina Chi MD Work Phone: [facility] 06-22-2025 08:24-0400 Body weight 71.46 kg Eloina Chi MD Work Phone: [facility] 06-22-2025 08:24-0400 Diastolic blood pressure 60 mm[Hg] Eloina Chi MD Work Phone: [facility] 06-22-2025 08:24-0400 Heart rate 84 /min Eloina Chi MD Work Phone: [facility] 06-22-2025 08:24-0400 Respiratory rate 16 /min Eloina Chi MD Work Phone: [facility] 06-22-2025 08:24-0400 SaO2% (BldA) [Mass fraction] 97 % Eloina Chi MD Work Phone: [facility] 06-22-2025 08:24-0400 Systolic blood pressure 96 mm[Hg] Eloina Chi MD Work Phone: [facility] 06-21-2025 13:38-0400 Body height 172.72 cm Eloina Chi MD Work Phone: [facility] 06-21-2025 13:38-0400 Body mass index (BMI) [Ratio] 24.3 kg/m2 Eloina Chi MD Work Phone: [facility] 06-21-2025 13:38-0400 Body weight 72.63 kg Eloina Chi MD Work Phone: [facility] 06-21-2025 13:38-0400 Diastolic blood pressure 66 mm[Hg] Eloina Chi MD Work Phone: [facility] 06-21-2025 13:38-0400 Heart rate 98 /min Eloina Chi MD Work Phone: [facility] 06-21-2025 13:38-0400 Respiratory rate 17 /min Eloina Chi MD Work Phone: 4([phone])[phone] [place] [address] 06-21-2025 13:38-0400 SaO2% (BldA) [Mass fraction] 99 % Eloina Chi MD Work Phone: [facility] 06-21-2025 13:38-0400 Systolic blood pressure 105 mm[Hg] Eloina Chi MD Work Phone: [facility] 06-17-2025 13:42-0400 Body height 172.72 cm Eloina Chi MD Work Phone: [facility] 06-17-2025 13:42-0400 Body mass index (BMI) [Ratio] 24 kg/m2 Eloina Chi MD Work Phone: [facility] 06-17-2025 13:42-0400 Body temperature 96.6 [degF] Eloina Chi MD Work Phone: [facility] 06-17-2025 13:42-0400 Body weight 71.78 kg Eloina Chi MD Work Phone: [facility] 06-17-2025 13:42-0400 Diastolic blood pressure 59 mm[Hg] Eloina Chi MD Work Phone: [facility] 06-17-2025 13:42-0400 Heart rate 82 /min Eloina Chi MD Work Phone: [facility] 06-17-2025 13:42-0400 Respiratory rate 16 /min Eloina Chi MD Work Phone: [facility] 06-17-2025 13:42-0400 SaO2% (BldA) [Mass fraction] 97 % Eloina Chi MD Work Phone: [facility] 06-17-2025 13:42-0400 Systolic blood pressure 88 mm[Hg] Eloina Chi MD Work Phone: [facility] 05-28-2025 11:37-0400 Body temperature 97.5 [degF] Reta Siegel MD Work Phone: [facility] 05-28-2025 11:37-0400 Body weight 72.58 kg Reta Siegel MD Work Phone: [facility] 05-28-2025 11:37-0400 Diastolic blood pressure 66 mm[Hg] Reta Siegel MD Work Phone: [facility] 05-28-2025 11:37-0400 Heart rate 86 /min Reta Siegel MD Work Phone: [facility] 05-28-2025 11:37-0400 SaO2% (BldA) [Mass fraction] 97 % Reta Siegel MD Work Phone: [facility] 05-28-2025 11:37-0400 Systolic blood pressure 106 mm[Hg] Reta Siegel MD Work Phone: [facility] 04-08-2025 14:58-0400 Body height 172.7 cm Aries Sarabia APRN.[employer] Work Phone: [facility] 04-08-2025 14:58-0400 Body mass index (BMI) [Ratio] 25.31 kg/m2 Aries Sarabia APRN.[employer] Work Phone: [facility] 04-08-2025 14:58-0400 Body weight 75.5 kg Aries Sarabia HEAD OF OPERATION AND LOGISTICS.[employer] Work Phone: [facility] 04-08-2025 14:58-0400 SaO2% (BldA) [Mass fraction] 96 % Aries Sarabia APRN.[employer] Work Phone: [facility] 12-26-2024 19:28-0400 Body temperature 98.2 [degF] Eloina Chi MD Work Phone: [facility] 12-26-2024 19:28-0400 Diastolic blood pressure 70 mm[Hg] Eloina Chi MD Work Phone: [facility] 12-26-2024 19:28-0400 Heart rate 79 /min Eloina Chi MD Work Phone: [facility] 12-26-2024 19:28-0400 Respiratory rate 18 /min Eloina Chi MD Work Phone: [facility] 12-26-2024 19:28-0400 SaO2% (BldA) [Mass fraction] 96 % Eloina Chi MD Work Phone: [facility] 12-26-2024 19:28-0400 Systolic blood pressure 123 mm[Hg] Eloina Chi MD Work Phone: [facility] 12-26-2024 17:15-0400 Body height 172.72 cm Eloina Chi MD Work Phone: [facility] 12-26-2024 17:15-0400 Body mass index (BMI) [Ratio] 27.1 kg/m2 Eloina Chi MD Work Phone: [facility] 12-26-2024 17:15-0400 Body weight 80.8 kg Eloina Chi MD Work Phone: [facility] 10-04-2024 08:10-0500 Body temperature 98.2 [degF] Eloina Chi MD Work Phone: [facility] 10-04-2024 08:10-0500 Diastolic blood pressure 70 mm[Hg] Eloina Chi MD Work Phone: [facility] 10-04-2024 08:10-0500 Heart rate 77 /min Eloina Chi MD Work Phone: [facility] 10-04-2024 08:10-0500 Respiratory rate 12 /min Eloina Chi MD Work Phone: [facility] 10-04-2024 08:10-0500 SaO2% (BldA) [Mass fraction] 97 % Eloina Chi MD Work Phone: [facility] 10-04-2024 08:10-0500 Systolic blood pressure 120 mm[Hg] Eloina Chi MD Work Phone: [facility] 09-21-2024 15:10-0500 SaO2% (BldA) [Mass fraction] 100 % Amisha Sarabia MD Work Phone: [facility] 09-21-2024 15:08-0500 Body height 172.7 cm Amisha Sarabia MD Work Phone: [facility] 09-21-2024 15:08-0500 Body mass index (BMI) [Ratio] 25.09 kg/m2 Amisha Sarabia MD Work Phone: [facility] 09-21-2024 15:08-0500 Body weight 74.84 kg Amisha Sarabia MD Work Phone: [facility] 07-30-2024 13:58-0400 Body height 172.7 cm Phoebe Chamberlain MD Work Phone: [facility] 07-30-2024 13:58-0400 Body mass index (BMI) [Ratio] 25.38 kg/m2 Phoebe Chamberlain MD Work Phone: [facility] 07-30-2024 13:58-0400 Body weight 75.7 kg Phoebe Chamberlain MD Work Phone: [facility] 07-30-2024 13:58-0400 Diastolic blood pressure 78 mm[Hg] Phoebe Chamberlain MD Work Phone: [facility] 07-30-2024 13:58-0400 Systolic blood pressure 124 mm[Hg] Phoebe Chamberlain MD Work Phone: [facility] 06-25-2024 15:47-0400 Diastolic blood pressure 67 mm[Hg] Aries Sarabia HEAD OF OPERATION AND LOGISTICS.[employer] Work Phone: [facility] 06-25-2024 15:47-0400 Heart rate 83 /min Aries Sarabia HEAD OF OPERATION AND LOGISTICS.[employer] Work Phone: [facility] 06-25-2024 15:47-0400 Systolic blood pressure 105 mm[Hg] Aries Sarabia HEAD OF OPERATION AND LOGISTICS.[employer] Work Phone: [facility] 06-25-2024 15:45-0400 Body height 172 cm Aries Sarabia HEAD OF OPERATION AND LOGISTICS.[employer] Work Phone: [facility] 06-25-2024 15:45-0400 Body mass index (BMI) [Ratio] 25.62 kg/m2 Aries Sarabia HEAD OF OPERATION AND LOGISTICS.[employer] Work Phone: [facility] 06-25-2024 15:45-0400 Body weight 75.8 kg Aries Sarabia HEAD OF OPERATION AND LOGISTICS.[employer] Work Phone: [facility] 06-25-2024 15:45-0400 SaO2% (BldA) [Mass fraction] 99 % Aries Sarabia HEAD OF OPERATION AND LOGISTICS.[employer] Work Phone: [facility] 03-17-2024 07:49-0400 Body height 172.7 cm Aries Sarabia HEAD OF OPERATION AND LOGISTICS.[employer] Work Phone: [facility] 03-17-2024 07:49-0400 Body mass index (BMI) [Ratio] 26.62 kg/m2 Aries Sarabia HEAD OF OPERATION AND LOGISTICS.[employer] Work Phone: [facility] 03-17-2024 07:49-0400 Body weight 79.4 kg Aries Sarabia HEAD OF OPERATION AND LOGISTICS.[employer] Work Phone: [facility] 03-17-2024 07:49-0400 SaO2% (BldA) [Mass fraction] 98 % Aries Sarabia APRN.CNP Work Phone: [facility] 12-19-2023 14:01-0500 Body height 172.7 cm Amisha Sarabia MD Work Phone: [facility] 12-19-2023 14:01-0500 Body weight 82 kg Amisha Sarabia MD Work Phone: [facility] 12-19-2023 14:01-0500 SaO2% (BldA) [Mass fraction] 97 % Amisha Sarabia MD Work Phone: [facility] 09-25-2023 08:18-0500 Body height 172.72 cm MD Eloina Chi Work Phone: [facility] 09-25-2023 08:18-0500 Body mass index (BMI) [Ratio] 26.4 kg/m2 MD Eloina Chi Work Phone: [facility] 09-25-2023 08:18-0500 Body temperature 98.2 [degF] MD Eloina Chi Work Phone: [facility] 09-25-2023 08:18-0500 Body weight 78.92 kg MD Eloina Chi Work Phone: [facility] 09-25-2023 08:18-0500 Diastolic blood pressure 65 mm[Hg] MD Eloina Chi Work Phone: [facility] 09-25-2023 08:18-0500 Heart rate 63 /min MD Eloina Chi Work Phone: [facility] 09-25-2023 08:18-0500 Respiratory rate 15 /min MD Eloina Chi Work Phone: [facility] 09-25-2023 08:18-0500 Systolic blood pressure 103 mm[Hg] MD Eloina Chi Work Phone: [facility] Encounters Encounter Date Encounter Type Care Provider Facility Start: 08-18-2025 End: 08-18-2025 ambulatory Eloina Castilloke Facility:[facility] Start: 08-18-2025 ambulatory Eloina Castilloke Facility:[facility] Start: 08-11-2025 End: 08-11-2025 ambulatory Chalrusty Lula Facility:[facility] Start: 08-07-2025 ambulatory Jamarcus oMran Facili ty:[facility] Start: 08-07-2025 End: 08-10-2025 Evaluation and management of inpatient Jamracus Moran Facility:[facility] Start: 08-04-2025 End: 08-04-2025 Dr. En Guerin DO [facility] Work Phone: Start: 08-04-2025 End: 08-04-2025 ambulatory En Truong Facility:[facility] Start: 08-04-2025 Dr. Dev Reardon MD -[facility] Work Phone: Start: 08-03-2025 Dr. Dev Reardon MD -[facility] Work Phone: Start: 08-02-2025 Dr. Simone Collins MD -[facility] Start: 08-02-2025 Dr. Dev Reardon MD -[facility] Work Phone: Start: 08-01-2025 Dr. Dev Reardon MD -[facility] Work Phone: Start: 07-31-2025 Dr. Dev Reardon MD -[facility] Work Phone: Start: 07-30-2025 ambulatory Rain Gallagher Facility :[facility] Start: 07-30-2025 End: 08-04-2025 Evaluation and management of inpatient Eloina Chi MD Work Phone: -[facility] Care Unit Start: 07-30-2025 End: 08-04-2025 Dr. Dev Reardon MD -[facility] nit Work Phone: Start: 07-29-2025 ambulatory Maria Luisarusty Chi Facility:[facility] Start: 07-29-2025 Dr. En Guerin DO -S peech Therapy Work Phone: Start: 07-28-2025 End: 07-28-2025 Dr. En Guerin DO [facility] Work Phone: Start: 07-28-2025 End: 07-28-2025 ambulatory Eloina Chi MD Work Phone: [facility] Start: 07-26-2025 ambulatory En Truong Facility: [facility] Start: 07-26-2025 Dr. En SALEHW -[facility] Start: 07-26-2025 End: 07-26-2025 Dr. Simone Collins MD -[facility] Work Phone: Start: 07-26-2025 End: 07-26-2025 ambulatory Eloina Chi MD Work Phone: [facility] Start: 07-22-2025 ambulatory En Guerin Facility: [facility] Start: 07-22-2025 Dr. En SALEHW -[facility] Start: 07-21-[address] En Jade on DO -Speech Therapy Work Phone: Start: 07-21-2025 End: 07-21-[address] En Guerin DO [facility] Work Phone: Start: 07-21-2025 End: 07-21-2025 Dr. En Guerin DO [facility] Work Phone: Start: 07-21-2025 End: 07-21-2025 ambulatory Eloina Chi MD Work Phone: [facility] Start: 07-20-[address] En Jade on DO -Radiation Oncology Start: 07-19-[address] En Jade on DO -[facility] Start: 07-19-2025 End: 07-19-[address] Simone Collins MD -[facility] Work Phone: Start: 07-19-2025 End: 07-19-2025 Dr. Simone Collins MD -[facility] Work Phone: Start: 07-19-2025 End: 07-19-2025 ambulatory Eloina Chi MD Work Phone: -[facility] Start: 07-14-[address] En Jade on DO -Radiation Oncology Start: 07-14-2025 End: 07-14-[address] En Guerin [facility] Work Phone: Start: 07-14-2025 End: 07-14-2025 Dr. En Guerin DO [facility] Work Phone: Start: 07-14-2025 End: 07-14-2025 ambulatory Eloina Chi MD Work Phone: -[facility] Start: 07-13-[address] En Jade on DO -Radiation Oncology Start: 07-12-2025 End: 07-12-2025 Patient encounter procedure Elizabeth COLE -[facility] Work Phone: Start: 07-12-2025 End: 07-12-2025 Elizabeth Sexton PA-C [facility] Work Phone: Start: 07-12-2025 End: 07-12-2025 ambulatory Eloina Chi MD Work Phone: [facility] Start: 07-12-[address] En Jade on DO -Speech Therapy Work Phone: Start: 07-12-2025 End: 07-12-2025 Patient encounter procedure Jayashree Justin LANDSCAPE MANAGER-C -[facility] Work Phone: Start: 07-12-2025 End: 07-12-2025 Jayashree Justin LANDSCAPE MANAGER-C -[facility] Work Phone: Start: 07-12-2025 End: 07-12-2025 ambulatory Eloina Chi MD Work Phone: -[facility] Start: 07-08-2025 End: 07-08-2025 ambulatory Eloina Chi MD Work Phone: -[facility] Start: 07-08-2025 End: 07-08-[address] En Guerin -Radiology [facility] Work Phone: Start: 07-08-2025 End: 07-08[facility]2025 [facility] Work Phone: Start: 07-07-2025 End: 07-07-[address] En Guerin [facility] Work Phone: Start: 07-07-2025 End: 07-07-2025 Dr. En Guerin DO [facility] Work Phone: Start: 07-07-2025 End: 07-08-2025 ambulatory Eloina Chi MD Work Phone: [facility] Start: 07-05-2025 End: 07-05-[address] Simone Collins MD -[facility] Work Phone: Start: 07-05-2025 End: 07-05-2025 Dr. Simone Collins MD -[facility] Work Phone: Start: 07-05-2025 End: 07-05-2025 ambulatory Eloina Chi MD Work Phone: [facility] Start: 06-30-2025 Non-patient / Non-visit Dr. Handy Ng MD -[facility] Start: 06-30-2025 End: 06-30-2025 Admission to same day surgery center Dr. Kalyn Ng MD -[facility] Start: 06-30-2025 End: 06-30-2025 Dr. Kalyn Ng MD -[facility] Start: 06-30-2025 End: 06-30-2025 ambulatory Eloina Chi MD Work Phone: -[facility] Start: 06-29-2025 ambulatory Eloina Chi Facility:[facility] Start: 06-29-2025 Non-patient / Non-visit Dr. En berry DO -[facility] Start: 06-29-2025 Dr. En Guerin DO [facility] Start: 06-28-[address] En Jade on DO -[facility] Start: 06-28-2025 End: 06-28-2025 Patient encounter procedure Jayashree Justin [facility] Work Phone: Start: 06-28-2025 End: 06-28-2025 Jayashree GarciaJustin [facility] Work Phone: Start: 06-28-2025 End: 06-28-2025 ambulatory Eloina Chi MD Work Phone: [facility] Start: 06-25-2025 End: 06-29-2025 Telephone encounter Aries Sarabia APRN.[employer] STITCHER [employer] Work Phone: Neurology Comment on above: Patient Update Start: 06-22-2025 ambulatory Eloina Chi Facility:[facility] Start: 06-22-2025 Non-patient / Non-visit Dr. En berry -[facility] Start: 06-22-2025 Dr. En Guerin DO [facility] Start: 06-22-[address] En Jade on DO -Radiation Oncology Start: 06-22-2025 End: 06-22-[address] Simone Collins MD -[facility] Work Phone: Start: 06-22-2025 End: 06-22-2025 Dr. Simone Collins MD -[facility] Work Phone: Start: 06-22-2025 End: 06-22-2025 ambulatory Eloina Chi MD Work Phone: [facility] Start: 06-21-2025 End: 06-21-[address] Kalyn Ng MD -[facility] Work Phone: Start: 06-21-2025 End: 06-21-2025 Dr. Kalyn Ng MD -[facility] Work Phone: Start: 06-21-2025 End: 06-21-2025 ambulatory Eloina Chi MD Work Phone: [facility] Start: 06-17-2025 End: 06-17-[address] En Guerin DO [facility] Work Phone: Start: 06-17-2025 End: 06-17-2025 Dr. En [facility] Work Phone: Start: 06-17-2025 End: 06-17-2025 ambulatory Eloina Chi MD Work Phone: [facility] Start: 06-15-2025 End: 06-15-2025 ambulatory Eloina Chi MD Work Phone: [facility] Start: 06-15-2025 End: 06-15-2025 Patient encounter procedure Reta Siegel MD -[facility] Start: 06-15-2025 End: 06-15-2025 Reta Siegel MD -[facility] Start: 06-15-2025 End: 06-15-2025 ambulatory [facility] Facility:[facility] Start: 06-10-2025 Non-patient / Non-visit Cherelle Delgado si [employer] CHEMIST -[facility] Work Phone: Start: 06-10-2025 Cherellebess Maher WASTEWATER TREAT[employer] PLANT CHEMIST -[facility] Work Phone: Start: 06-10-2025 ambulatory [facility] Facility:[facility] Start: 06-08-2025 End: 06-09-2025 ambulatory Reta [...] ambulatory [facility] Start: 05-31-2025 End: 05-31-2025 ambulatory Eloina Chi MD Work Phone: -Physical Therapy Start: 05-31-2025 End: 05-31-2025 Discharged Recurring ARIES GRIDER -Physical Therapy Work Phone: Start: 05-31-2025 End: 05-31-2025 ARIES GRIDER -Physical Therapy Work Phone: Start: 05-28-2025 End: 05-28-2025 ambulatory 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 Start: 05-14-2025 End: 05-14-2025 Subsequent hospital visit by physician Jess [facility] Radiology Comment on above: Tonsillar mass Start: 05-06-2025 Registered Recurring ARIES ESPINOSA LANDSCAPE MANAGER -Physical Therapy Work Phone: Start: 05-03-2025 End: 05-03-2025 Telephone encounter Aries Sarabia APRN.[employer] ST[employer] Work Phone: Neurology Comment on above: Orders Start: 05-03-2025 End: 05-03-2025 ambulatory Eloina Chi MD Work Phone: -Cat Scan [facility] Start: 05-03-2025 End: 05-03-[address] Anusha Ward MD -Cat Scan [facility] Work Phone: Start: 05-03-2025 End: 05-03-2025 Dr. Anusha Ward MD -Cat Scan [facility] Work Phone: Start: 05-03-2025 End: 05-03-2025 ambulatory Chalon Lula Facility:[facility] Start: 04-08-2025 End: 04-08-2025 Patient encounter procedure Aries Sarabia APRN.CNP Work Phone: Neurology Comment on above: Parkinson's disease without dyskinesia, with fluctuating manifestations (HCC) (Primary Dx); Orthostatic hypotension; Sialorrhea Start: 04-08-2025 End: 04-08-2025 ambulatory ARIES SARABIA Facility:[facility] Start: 03-01-2025 End: 03-01-2025 ambulatory Eloina Chi MD Work Phone: [facility] Work Phone: Start: 03-01-2025 End: 03-01-2025 Patient encounter procedure Ariel Duque PA -Laboratory Specimen Work Phone: Start: 03-01-2025 End: 03-01-2025 ambulatory Chalon Lula Facility:[facility] Start: 02-23-2025 End: 02-23-2025 Refill Amisha Sarabia MD Work Phone: Neurology Comment on above: Refill Request Start: 02-08-2025 End: 02-08-2025 Patient encounter procedure Ariel Duque PA -Laboratory Specimen Work Phone: Start: 02-08-2025 End: 02-08-2025 ambulatory Maria Luisaon Lula Facility:[facility] Start: 12-28-2024 End: 12-28-2024 ambulatory Eloina Chi MD Work Phone: [facility] Work Phone: Start: 12-28-2024 End: 12-28-2024 Patient encounter procedure Ariel GARCIAS -Laboratory, Specimen Work Phone: Start: 12-28-2024 End: 12-28-2024 ambulatory [facility] Facility:[facility] Start: 12-26-2024 End: 12-26-2024 Emergency department patient visit Eloina Chi MD Work Phone: -Emergency Department Work Phone: Start: 12-23-[address] Eloina Chi MD -Speech Therapy Work Phone: Start: 12-23-2024 End: 12-23-2024 ambulatory [facility] Facility:[facility] Start: 11-06-2024 End: 11-09-2024 Telephone encounter Phoebe Chamberlain MD Work Phone: [facility] [place] Comment on above: Medication Authoriza tion Start: 10-04-2024 End: 10-04-2024 Patient encounter procedure Ranulfo Juarez Hubert LANDSCAPE MANAGER-C [facility] Work Phone: Start: 10-04-2024 End: 10-04-2024 ambulatory [facility] Facility:[facility] Start: 09-28-2024 End: 09-30-2024 ambulatory Pheobe Chamberlain MD Work Phone: [facility] [place] Comment on above: Motegrity - patient Glenn Parada Start: 09-21-2024 End: 09-22-2024 ambulatory AMISHA SARABIA Facility:[facility] Start: 09-21-2024 End: 09-22-2024 Office outpatient visit 25 minutes Amisha Sarabia MD Work Phone: [facility] Comment on above: Parkinson's disease without dyskinesia or fluctuating manifestations (HCC) (Primary Dx); Cognitive and behavioral changes Start: 08-10-2024 End: 08-12-2024 Telephone encounter Aries Sarabia APRN.CNP Work Phone: Neurology Comment on above: Medication Question Start: 07-31-2024 End: 07-31-2024 ambulatory PHOEBE CHUNGSARAH Facility:[facility] Start: 07-30-2024 End: 07-30-2024 ambulatory PHOEBE CHUNGSARAH Facility:[facility] Start: 07-30-2024 End: 07-30-2024 Office outpatient new 60 minutes Phoebe Chamberlain MD Work Phone: [facility] [place] Comment on above: Constipation, unspec ified constipation type (Primary Dx); Intestinal malabsorption, unspecified type Start: 06-25-2024 End: 06-25-2024 Patient encounter procedure Aries Sarabia APRN.ROLL EDGE STITCHER HAND Work Phone: Neurology Comment on above: Orthostatic hypotens ion (Primary Dx); Parkinson's disease without dyskinesia, with fluctuating manifestations (HCC) Start: 03-17-2024 End: 03-17-2024 Patient encounter procedure Aries Sarabia APRN.[employer] EDGE STITCHER [employer] Work Phone: Neurology Comment on above: Parkinson's disease without dyskinesia or fluctuating manifestations (HCC) (Primary Dx); Orthostatic hypotension; Constipation, unspecified constipation type Start: 12-19-2023 End: 12-19-2023 Office outpatient new 45 minutes Amisha Sarabia MD Work Phone: Neurology Comment on above: Parkinson's disease without dyskinesia, with fluctuating manifestations (HCC) (Primary Dx) Start: 09-25-2023 End: 09-25-2023 Patient encounter procedure MD Eloina Chi Work Phone: [facility] Work Phone: Start: 09-20-2023 End: 09-20-2023 ambulatory MD Eloina Chi Work Phone: [facility] Work Phone: Start: 09-20-2023 End: 09-20-2023 Patient encounter procedure MD Eloina Chi Work Phone: [facility] Procedures Date Procedure Procedure Detail Performing [...] 08-07-2025 End: 08-07-2025 Streptococcus pneumoniae antigen assay Eloina Chi MD Work Phone: Start: 08-07-2025 Urine [...] two views without x-ray of chest MD Eloian Chi Work Phone: Plan of Treatment Date Care Activity Detail Author Start: 12-26-2034 Tetanus vaccination Tetanus (Td or Tdap) Booster [facility] Start: 12-26-2034 Urine microalbumin profile DTaP,Tdap,Td Vaccine (2 - Td or Tdap) [facility] Start: 07-31-2027 Diabetes Screening Diabetes Screening [facility] Start: 12-12-2025 Annual Wellness Visit (G0439) Annual Wellness Visit (G0439) [facility] Start: 10-12-2025 End: 10-12-2025 Patient encounter procedure 10/12/2025 11:00 AM EST Office Visit Neurology [address] [id number] Aries Sarabia, DENNIS.ROLL EDGE STITCHER HAND [address] [address] 6 month follow up Neurology Comment on above: 6 month follow up Start: 09-17-2025 End: 09-17-2025 Patient encounter procedure 09/17/2025 8:45 AM EST Office Visit [facility] Otolaryngology (ENT) [address] [place] [address] Reta Siegel MD [address] [place], [place] [id number] [facility] Otolaryngology (ENT) Start: 08-18-2025 End: 08-18-2025 -[facility] Work Phone: Start: 08-18-2025 -[facility] Work Phone: Start: 08-12-2025 -Radiation Oncology Start: 08-11-2025 End: 08-11-2025 -[facility] Work Phone: Start: 08-10-2025 Patient discharge [facility] Start: 08-10-2025 -[facility] Work Phone: Start: 08-10-2025 End: 08-10-2025 Serum inorganic phosphate measurement [facility] Start: 08-09-2025 Referral to service [facility] Start: 08-09-2025 Speech therapy assessment [facility] Start: 08-09-2025 -[facility] Work Phone: Start: 08-09-2025 Vital signs measurements [facility] Start: 08-08-2025 [facility] Start: 08-07-2025 Blood culture [facility] Start: 08-07-2025 Legionella pneumophila antigen assay [facility] Start: 08-07-2025 Nucleic acid assay [facility] Start: 08-07-2025 Streptococcus pneumoniae antigen assay [facility] Start: 08-07-2025 Urine culture [facility] Start: 08-07-2025 Following clinical pathway protocol [facility] Start: 08-07-2025 Assessment of risk of venous thromboembolism [facility] Start: 08-07-2025 Insertion of catheter into peripheral vein [facility] Start: 08-07-2025 Measuring intake and output [facility] Start: 08-07-2025 Oxygen therapy [facility] Start: 08-07-2025 Providing care according to standard [facility] Start: 08-07-2025 Provision of activity privileges [facility] Start: 08-07-2025 Referral for physical therapy [facility] Start: 08-07-2025 Referral to occupational therapist [facility] Start: 08-07-2025 Referral to service [facility] Start: 08-07-2025 End: 08-10-2025 [facility] Start: 08-07-2025 Verification routine [facility] Start: 08-07-2025 Admission procedure [facility] Start: 08-07-2025 CT of thorax with contrast [facility] Start: 08-07-2025 End: 08-07-2025 [facility] Start: 08-07-2025 Plain chest X-ray [facility] Start: 08-07-2025 Inhalation therapy procedure [facility] Start: 08-06-2025 [facility] Start: 08-04-2025 End: 08-04-2025 -[facility] Work Phone: Start: 08-04-2025 Patient discharge [facility] Start: 08-04-2025 -[facility] Work Phone: Start: 08-04-2025 End: 08-04-2025 Referral to service [facility] Start: 08-03-2025 -[facility] Work Phone: Start: 08-03-2025 Videoswallow [facility] Start: 08-02-2025 [facility] Start: 08-02-2025 Bacterial nucleic acid assay [facility] Start: 08-02-2025 Consultation [facility] Start: 08-02-2025 Removal of urinary catheter [facility] Start: 08-01-2025 Following clinical pathway protocol [facility] Start: 08-01-2025 [facility] Start: 08-01-2025 Consultation [facility] Start: 08-01-2025 -[facility] Work Phone: Start: 07-31-2025 -[facility] Work Phone: Start: 07-31-2025 Speech therapy assessment [facility] Start: 07-30-2025 CT angiography of chest with contrast [facility] Start: 07-30-2025 Following clinical pathway protocol [facility] Start: 07-30-2025 Assessment of risk of venous thromboembolism [facility] Start: 07-30-2025 Consultation [facility] Start: 07-30-2025 Insertion of catheter into peripheral vein [facility] Start: 07-30-2025 Measuring intake and output [facility] Start: 07-30-2025 Providing care according to standard [facility] Start: 07-30-2025 Referral for physical therapy [facility] Start: 07-30-2025 Referral to occupational therapist [facility] Start: 07-30-2025 Vital signs measurements [facility] Start: 07-30-2025 End: 08-04-2025 [facility] Start: 07-30-2025 Admission procedure [facility] Start: 07-30-2025 Plain chest X-ray [facility] Start: 07-30-2025 [facility] Start: 07-30-2025 Blood culture [facility] Start: 07-30-2025 Nucleic acid assay [facility] Start: 07-30-2025 Urine culture [facility] Start: 07-30-2025 Patient referral to dietitian [facility] Start: 07-29-2025 -Speech Therapy Work Phone: Start: 07-28-2025 End: 07-28-2025 -[facility] Work Phone: Start: 07-26-2025 Vital signs measurements [facility] Start: 07-19-2025 [facility] Start: 07-19-2025 Vital signs measurements [facility] Start: 07-16-2025 COVID-19 Vaccine (3 - Pfizer risk series) COVID-19 Vaccine (3 - Pfizer risk series) [facility] Start: 07-14-2025 Influenza vaccination Influ[facility] (#[facility] Start: 07-13-2025 Registered Recurring Registered Recurring -Radiation Oncolog y Start: 07-12-2025 End: 07-12-2025 Patient encounter procedure Port-A-Cath in place -[facility] Work Phone: Start: 07-12-2025 Registered Recurring Registered Recurring -Speech Therapy Work Phone: Start: 07-12-2025 End: 07-12-2025 Patient encounter procedure Chemotherapy management, encounter for -[facility] Work Phone: Start: 07-12-2025 Vital signs measurements [facility] Start: 07-08-2025 Videoswallow Swallowing Function w/Video [facility] Start: 07-08-2025 Patient encounter procedure Registered Clinical -Radiology [facility] Work Phone: Start: 07-07-2025 End: 07-07-2025 Patient encounter procedure Squamous cell carcinoma of oropharynx -[facility] Work Phone: Start: 07-05-2025 Venous catheter care management [facility] Start: 07-05-2025 Vital signs measurements [facility] Start: 06-30-2025 Anesthesia upper gi endoscopic px nos [facility] Start: 06-30-2025 Egd transoral biopsy single/multiple [facility] Start: 09-17-2025 Insj tunneled ctr vad w/subq port age 4 yr/> [facility] Start: 06-30-2025 Upper gastrointestinal endoscopy for directed placement of percutaneous gastrostomy tube [facility] Start: 06-30-2025 Patient discharge [facility] Start: 06-15-2025 Positron emission tomography with computed tomography [facility] Start: 06-14-2025 Influenza vaccination [facility] Start: 06-04-2025 End: 06-03-2026 PET+CT Guidance for localization of tumor of Whole body-- W [id number] IV PET HEAD/NECK INITIAL Imaging Within 1 week 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) Former smoker Expected: 06/04/2025, Expires: 06/03/2026 [email or web address] Work Phone: Comment on above: Expected: 06/04/2025, Expires: Start: 05-28-2025 End: 05-28-2025 Patient encounter procedure 05/28/2025 1:00 PM EDT Office Visit [facility] Otolaryngology (ENT) [address] [place] [address] Reta Siegel MD [address] [place] [address] [facility] Otolaryngology (ENT) Start: 04-08-2025 End: 04-08-2025 Patient encounter procedure 04/08/2025 3:00 PM EDT Office Visit Neurology [address] [place] [phone] Aries Sarabia APRN.ROLL EDGE STITCHER HAND [address] [place] [address] Follow up for Parkinson's Neurology Comment on above: Follow up for Parkinson's Start: 03-01-2025 Throat culture Throat Culture [facility] Start: 12-26-2024 [facility] Start: 12-20-2024 Covid-19 Vaccine ( season) Covid-19 Vaccine ( season) [facility] Start: 12-12-2024 Annual Wellness Visit (G0439) Annual Wellness Visit (G0439) [facility] Start: 10-22-2024 Covid-19 Vaccine ( season) Covid-19 Vaccine () [facility] Start: 10-14-2024 Advance Directive Discussion Advance Directive Discussion [facility] Start: 10-14-2024 Medicare Advantage Annual Wellness Visit Medicare Advantage Annual Wellness Visit [facility] Start: 09-21-2024 End: 09-21-2024 Patient encounter procedure 09/21/2024 3:30 PM EST Office Visit [facility] [address] [facility] [place] [address] Amisha Sarabia MD [address] [place] [address] follow up [facility] Comment on above: follow up Start: 07-31-2024 End: 07-31-2024 ambulatory 07/31/2024 10:30 AM EDT Results Only [facility] [address] [place] [address] Constipation, unspecified constipation type [K59.00] [facility] Comment on above: Constipation, unspecified constipation t ype [K59.00] Start: 07-30-2024 End: 10-29-2024 CBC W Auto Differential panel - Blood COMPLETE BLOOD COUNT AND DIFFERENTIAL Lab Routine Constipation, unspecified constipation type Expected: 07/30/2024, Expires: 10/29/2024 [facility] Comment on above: Expected: 07/30/2024, Expires: Start: 07-30-2024 End: 10-29-2024 [facility] HLA-DQ GENOTYPE [facility] HLA-DQ GENOTYPE Lab Routine Intestinal malabsorption, unspecified type Expected: 07/30/2024, Expires: 10/29/2024 [facility] Comment on above: Expected: 07/30/2024, Expires: Start: 07-30-2024 End: 10-29-2024 CELIAC SCREEN WITH REFLEX CELIAC SCREEN WITH REFLEX Lab Routine Intestinal malabsorption, unspecified type Expected: 07/30/2024, Expires: 10/29/2024 [facility] Comment on above: Expected: 07/30/2024, Expires: Start: 07-30-2024 End: 10-29-2024 Comprehensive metabolic 2000 panel - Serum or Plasma COMPREHENSIVE METABOLIC PANEL Lab Routine Constipation, unspecified constipation type Expected: 07/30/2024, Expires: 10/29/2024 [facility] Work Phone: Comment on above: Expected: 07/30/2024, Expires: Start: 07-30-2024 End: 07-30-2024 Patient encounter procedure 07/30/2024 2:00 PM EDT Office Visit [facility] [address] [place] [address] Phoebe Chamberlain MD [address] [place] [address] 2nd opinion, chronic constipation, pt sees Dr Amezcua in [place], adv to have rec faxed [facility] Comment on above: 2nd opinion, chronic constipation, pt se es Dr Amezcua in [place], adv to have rec faxed Start: 07-30-2024 End: 10-29-2024 Thyrotropin [Units/volume] in Serum or Plasma THYROID STIMULATING HORMONE Lab Routine Constipation, unspecified constipation type Expected: 07/30/2024, Expires: 10/29/2024 [facility] Comment on above: Expected: 07/30/2024, Expires: Start: 07-13-2024 COVID-19 Vaccine (2 - Pfizer risk series) COVID-19 Vaccine (2 - Pfizer risk series) [facility] Start: 06-25-2024 End: 06-25-2024 Patient encounter procedure 06/25/2024 4:00 PM EDT Office Visit Neurology [address] [phone] Aries Sarabia, HEAD OF OPERATION AND LOGISTICS.ROLL EDGE STITCHER HAND [address] [place] [address] 6 month follow up Neurology Comment on above: 6 month follow up Start: 06-14-2024 Influenza vaccination [facility] Start: 10-14-2023 Advance Directive Discussion Advance Directive Discussion [facility] Start: 10-14-2023 Depression Assessment Depression Assessment [facility] Start: 06-14-2023 Covid-19 Vaccine ( season) Covid-19 Vaccine ( season) [facility] Start: 06-14-2023 Influenza vaccination Influenza Vaccine (#1) [facility] Start: 12-31-2018 RSV Vaccine (1 - 1-dose 75+ series) RSV Vaccine (1 - 1-dose 75+ series) [facility] Start: 12-31-2018 RSV vaccine (adult) (1 - 1-dose 75+ series) RSV vaccine (adult) (1 - 1-dose 75+ series) [facility] Start: 12-31-2008 Pneumococcal Vaccine: 65+ (1 of 1 - PCV) Pneumococcal Vaccine: 65+ (1 of 1 - PCV) [facility] Start: 2004 Hepatitis B (HBV) Vaccine (optional start 60+ years) Hepatitis B (HBV) Vaccine (optional start 60+ years) [facility] Start: 2004 RSV Vaccine (1 - 1-dose 60+ series) RSV Vaccine (1 - 1-dose 60+ series) [facility] Start: 12-31-1993 Pneumococcal vaccination Pneumococcal Vaccine(s) (50+ yrs) (1 of 1 - PCV) [facility] Start: 12-31-1993 Pneumococcal Vaccine: 50+ (1 of 1 - PCV) Pneumococcal Vaccine: 50+ (1 of 1 - PCV) [facility] Start: 12-31-1993 Shingles (RZV) Vaccine (1 of 2) Shingles (RZV) Vaccine (1 of 2) [facility] Start: 12-31-1993 Shingrix Vaccine (1 of 2) Shingrix Vaccine (1 of 2) [facility] Start: 12-31-1988 Diabetes Screening Diabetes Screening [facility] Start: 12-31-1962 Hepatitis A (HAV) Vaccine (optional start 19+ years) Hepatitis A (HAV) Vaccine (optional start 19+ years) [facility] Start: 12-31-1962 Pneumococcal vaccination Pneumococcal Vaccine(s) (50+ yrs) (1 of 2 - PCV) [facility] Start: 12-31-1962 Shingles (RZV) Vaccine (1 of 2) Shingles (RZV) Vaccine (1 of 2) [facility] Start: 12-31-1962 Urine microalbumin profile DTaP,Tdap,Td Vaccine (1 - Tdap) [facility] Start: 12-31-1961 Anxiety Screening Anxiety Screening [facility] Start: 12-31-1961 Depression Screening Depression Screening [facility] Start: 1945 Covid-19 Vaccine (#1) Covid-19 Vaccine (#1) [facility] Anion gap in Serum o r Plasma [facility] Anion gap in Serum o r Plasma [facility] Bacteria identified in Throat by Culture [facility] BUN/Creatinine ratio [facility] BUN/Creatinine ratio [facility] Calcium [Mass/volume ] in Serum or Plasma [facility] Calcium [Mass/volume ] in Serum or Plasma [facility] Carbon dioxide, tota l [Moles/volume] in Central venous blood [facility] Carbon dioxide, tota l [Moles/volume] in Central venous blood [facility] Creatinine [Mass/vol ume] in Serum or Plasma [facility] Creatinine [Mass/vol ume] in Serum or Plasma [facility] Erythrocyte mean corpuscular volume determination [facility] Erythrocyte mean corpuscular volume determination [facility] Glucose [Mass/volume ] in Serum or Plasma [facility] Glucose [Mass/volume ] in Serum or Plasma [facility] Hematocrit [Volume Fraction] of Blood [facility] Hematocrit [Volume Fraction] of Blood [facility] Hemoglobin [Mass/vol ume] in Blood [facility] Hemoglobin [Mass/vol ume] in Blood [facility] Leukocytes [#/volume ] in Blood [facility] Leukocytes [#/volume ] in Blood [facility] Mean corpuscular hemoglobin concentration determination [facility] Mean corpuscular hemoglobin concentration determination [facility] Mean corpuscular hemoglobin determination [facility] Mean corpuscular hemoglobin determination [facility] Measurement of renal function [facility] Measurement of renal function [facility] Neutrophil count [facility] Neutrophil count [facility] Neutrophil percent differential count [facility] Neutrophil percent differential count [facility] Patient Education ED Abrasion ED Hand Contusion ED Facial Contusion ED Head Injury (Adult) [facility] Work Phone: Patient referral [facility] Work Phone: Platelets [#/volume] in Blood [facility] Platelets [#/volume] in Blood [facility] Potassium measurement [facility] Potassium measurement [facility] Red blood cell count [facility] Red blood cell count [facility] Red cell distributio n width determination [facility] Red cell distributio n width determination [facility] Serum chloride measurement [facility] Serum chloride measurement [facility] Sodium measurement [facility] Sodium measurement [facility] Surgical pathology procedure *SPECIMEN FOR SURGICAL PATHOLOGY Anatomic Pathology Routine Tonsillar mass 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 [facility] Work Phone: Comment on above: Ordered: 05/28/2025 Urea nitrogen [Mass/volume] in Serum or Plasma [facility] Urea nitrogen [Mass/volume] in Serum or Plasma [facility] Immunizations Immunization Date Immunization Notes Care Provider [facility] 12-26-2024 tetanus toxoid, reduced diphtheria toxoid, and acellular pertussis vaccine, adsorbed Eloina Chi MD Work Phone: [facility] 06-22-2024 COVID-19 vaccine, ag e 12+ yr ([facility]) Phoebe Chamberlain MD Work Phone: [facility] 06-22-2024 influenza, high dose seasonal, preservative-free [facility] 06-22-2024 influenza virus vaccine, unspecified formulation Aries Sarabia APRN.CNP Work Phone: [facility] Payers Date Payer Category Payer Self-pay 2022 Medicare A[employer] MEDICARE A ETNA MEDICARE PPO [id number] 2022-Present [phone] [address] [place] [address] PPO [id number] 2022 Medicare (Managed Care) 1.2. [id number] 2022 Private Health Insurance [facility] [id number] 1945 Unknown [id number] 2.16.840.1.390709.3.579.2.7 32 1944 Unknown [id number] 2.16.840.1.860376.3.579.2.7 32 1944 Unknown [id number] 2.16.840.1.554651.3.579.2.7 32 Unknown [id number] 2.16.840.1.624743.3.579.2.4 62 Unknown [id number] 2.16.840.1.312325.3.579.2.4 62 Unknown [id number] 2.16.840.1.640235.3.579.2.4 62 Unknown [id number] 2.16.840.1.100939.3.579.2.4 62 Unknown [id number] 2.16.840.1.002101.3.579.2.4 62 Unknown [id number] 2.16.840.1.573170.3.579.2.4 62 Unknown [id number] 2.16.840.1.366941.3.579.2.4 62 Unknown [id number] 2.16.840.1.476793.3.579.2.4 62 Unknown [id number] 2.16.840.1.189043.3.579.2.4 62 Unknown [id number] 2.16.840.1.239880.3.579.2.4 62 Unknown [id number] 2.16.840.1.900905.3.579.2.4 62 Unknown [id number] 2.16.840.1.502442.3.579.2.4 62 Unknown [id number] 2.16.840.1.472589.3.579.2.4 62 Unknown [id number] 2.16.840.1.469464.3.579.2.4 62 Unknown [id number] 2.16.840.1.736171.3.579.2.4 62 Unknown [id number] 2.16.840.1.394459.3.579.2.4 62 Unknown [id number] 2.16.840.1.355749.3.579.2.4 62 Unknown [id number] 2.16.840.1.837419.3.579.2.4 62 Unknown [id number] 2.16.840.1.837257.3.579.2.4 62 Unknown [id number] 2.16.840.1.816861.3.579.2.4 62 Unknown [id number] 2.16.840.1.081010.3.579.2.4 62 Unknown [id number] 2.16.840.1.739715.3.579.2.4 62 Unknown [id number] 2.16.840.1.891727.3.579.2.4 62 Unknown [id number] 2.16.840.1.657072.3.579.2.4 62 Unknown [id number] 2.16.840.1.502287.3.579.2.4 62 Unknown [id number] 2.16.840.1.675209.3.579.2.4 62 Unknown [id number] 2.16.840.1.614781.3.579.2.4 62 Unknown [id number] 2.16.840.1.877498.3.579.2.4 62 Unknown [id number] 2.16.840.1.870298.3.579.2.4 62 Unknown [id number] 2.16.840.1.840120.3.579.2.4 62 Unknown [id number] 2.16.840.1.307627.3.579.2.4 62 Unknown [id number] 2.16.840.1.359964.3.579.2.4 62 Unknown [id number] 2.16.840.1.253612.3.579.2.4 62 Unknown [id number] 2.16.840.1.128768.3.579.2.4 62 Unknown [id number] 2.16.840.1.724928.3.579.2.4 62 Unknown [id number] 2.16.840.1.658863.3.579.2.4 62 Unknown [id number] 2.16.840.1.048900.3.579.2.4 62 Unknown [id number] 2.16.840.1.483194.3.579.2.4 62 Unknown [id number] 2.16.840.1.352737.3.579.2.4 62 Unknown [id number] 2.16.840.1.230349.3.579.2.4 62 Unknown [id number] 2.16.840.1.925357.3.579.2.4 62 Unknown [id number] 2.16.840.1.939030.3.579.2.4 62 Unknown [id number] 2.16.840.1.721987.3.579.2.4 62 Unknown [id number] 2.16.840.1.724049.3.579.2.4 62 Unknown [id number] 2.16.840.1.168293.3.579.2.4 62 Unknown [id number] 2.16.840.1.598112.3.579.2.4 62 Unknown [id number] 2.16.840.1.355197.3.579.2.4 62 Unknown [id number] 2.16.840.1.056002.3.579.2.4 62 Unknown [id number] 2.16.840.1.788036.3.579.2.4 62 Social History Date Type Detail Facility Tobacco smoking stat [facility] Unknown if ever smoked [facility] Work Phone: Start: 1945 Sex Assigned At Male [facility] Start: 12-19-2023 End: 08-07-2025 Tobacco smoking status NHIS Ex-smoker [facility] End: 10-14-1969 History of tobacco use Current smoker [facility] End: 10-14-1969 History of tobacco use Cigarette Smoker [facility] Start: 12-19-2023 End: 06-25-2024 Tobacco use and exposure Smokeless tobacco non-user [facility] Start: 12-19-2023 End: 04-04-2025 History of Social function [facility] Start: 12-19-2023 End: 04-04-2025 Tobacco use panel [facility] Start: 10-11-2023 Adult Depression Screening Assessment 0 [facility] Start: 10-11-2023 Gender identity Identifies as male gender (finding) [facility] Start: 07-30-2024 End: 04-08-2025 Alcoholic beverage intake Ex-drinker (finding) [facility] Start: 12-26-2024 End: 05-13-2025 Sex Male (finding) [facility] Tobacco smoking stat [facility] Tobacco smoking consumption unknown [facility] Start: 1945 Sex assigned at Not on file [facility] Medical Equipment Procedure Code Equipment Code Equipment Origin al Text Equipment Identifier Dates Insertion, vascular access port [id number]) [id number] FDA Start: 06-30-2025 EGD, with monitored anesthesia care [id number] FDA Start: 06-30-2025 Goals Date Patient [...] Services Work Phone: 08-04-2025 [facility] Work Phone: 06-30-2025 Cognitive function Voice/Name [facility] Work Phone: Clinical Notes 12-19-2023 to 08-10-2025 Note Date & Type Note Facility 08-10-2025 Note [facility] 08-04-2025 Discharge summary Note Date/Time August 04, 2025 11:43am [facility] Medical Records Department [address] [place] [address] Instructions for Home/Discharge Instructions 08/04/25 1036 MR#: [id number] Acct: [id number] Name: GLENN PARADA DEV Rep #:[id number] [...] Galaviz; Marco Carrero; Vicente Schofield; Tez Obando; Vuaghn Garduno; Jamarcus Vaz; Marya Moss; Sundar Reid; [...] Mejia; Chester Sharpe; En Guerin; Jayashree Anderson LANDSCAPE MANAGER Discharge Orders/Prescriptions Prescriptions: New chlorhexidine gluconate 0.12 [...] Kessler MD; Dr. Debbie Frausto MD ~ [facility] Work Phone: 1(838) 114-267110-22-2025 Discharge summary Author Dev Reardon [facility] Note Date/Time August 04, 2025 1 2:56pm [facility] Medical Records Department [address] [place] [address] Discharge Summary 08/04/25 1043 MR#: [id number] Acct: [id number] Name: GLENN PARADA DEV Rep #:[id number] : 1945 80 From: Dev Segovia PCP: Dr. Eloina Chi MD Status:ADM IN Location: [place] [address] Providers Date of Admission: 07/30/25 Date of Discharge: 08/04/25 Primary Care Physician: Eloina Chi MD Consultations 07/30/25 20:30 Consult: Sash Maker / Pulmonary Medicine Routine Consulting Provider: Intensivists/Pulmonary [...] 18:25 IMPRESSION: No Acute Findings. Reading Location: [facility] Chest CTA 07/30/25 22:16 IMPRESSION: Right lower [...] Freq: Status: Active Protocol: Document 07/31/25 11:30 [facility] (Rec: 07/31/25 11:30 [facility] [id number]) Nutrition Malnutrition Evidence of Yes Malnutrition Exists [...] Mejia; Chester Sharpe; En Guerin; Jayashree Anderson LANDSCAPE MANAGER Discharge Orders/Prescriptions Prescriptions: New chlorhexidine gluconate 0.12 [...] Health Service Charges/Coding Visit Charges Inpatient E&M: 43505 Disch Hosp >30min 08/04/25 1156 <Electronically signed by Dev Reardon MD> Cosigner Signature (if applicable): CC: Dr. Eloina Chi MD; Dr. Simone Collins MD; Dr. Dev Reardon MD; Dr. Carlitos MD~ Signed [facility] Work Phone: 1(706) 478-433810-22-2025 [facility]10-21-2025 Progress note Author Dev Reardon [facility] Note Date/Time August 03, 2025 6 :22pm [facility] Medical Records Department [address] [place] [address] Progress Note - Hospitalist 08/03/25 1719 MR#: [id number] Acct: [id number] Name: GLENN PARADA DEV Rep #:[id number] : 1945 80 From: Dev Segovia PCP: Dr. Eloina Chi MD Status:ADM IN Location: [place] [address] Reason for Visit Chief Complaint: fever Objective [...] 07/31/25 11:30 SLA (Rec: 07/31/25 11:30 SLA [id number]) Nutrition Malnutrition Evidence of Yes Malnutrition Exists [...] 18:25 IMPRESSION: No Acute Findings. Reading Location: [facility] Chest CTA 07/30/25 22:16 IMPRESSION: Right lower [...] ICU at 12:33 a.m. EST. Reading Location: [place] [address] Charges/Coding Visit Charges Inpatient E&M: 79805 Subs Hosp L2 08/03/25 1722 <Electronically signed by Dev Reardon MD> Cosigner Signature (if applicable): CC: ~ Signed [facility] Work Phone: 1(691) 204-345910-21-2025 Procedure [facility] 08-03-2025 Procedure [facility]10-21-2025 Consult note Author Ranulfo Kraus [facility] Note Date/Time August 03, 2025 1 2:30am [facility] Medical Records Department [address] [place] [address] Pharmacokinetic/Renal -Consult 08/02/259 MR#: [id number] Acct: [id number] Name: GLENN PARADA DEV Rep #:[id number] : 1945 80 From: Ranulfo Lubin od PCP: Dr. Eloina Chi MD Status:ADM IN Location: [facility] [id number] Consult Antibiotic Management Pharmacy has been [...] Signature (if applicable): Date CC: ~ Signed [facility] Work Phone: 1(737) 678-936910-20-2025 Consult note Author Alan Galaviz [facility] Note Date/Time August 02, 2025 4 :49pm [facility] Medical Records Department [address] [place] [address] Consultation - Infectious Dx 08/02/25 1546 MR#: [id number] Acct: [id number] Name: GLENN PARADA DEV Rep #:[id number] [...] performed and neg except as noted above. [facility] Medical History Encounter for education Wears glasses [...] 1,000 mg soluble 1,000 mg PO QD-QID TN N electrolyte 07/26/25 Unknown Rx tablet replenishment [...] Freq: Status: Active Protocol: Document 07/31/25 11:30 [facility] (Rec: 07/31/25 11:30 [facility] [id number]) Nutrition Malnutrition Evidence of Yes Malnutrition Exists [...] (Auto) 56.1, Lymph % (Auto) 18.7 L, [place] % (Auto) 19.6 H, Eos % (Auto) [...] Preliminary No growth in 48 hours. 08/02/25 4057 <Electronically signed by Alan Galaviz MD> Cosigner Signature (if applicable): CC: Dr. Eloina Chi MD~ Signed [facility] Work Phone: 1(460) 589-942310-20-2025 Consult note Author Simone Collins [facility] Note Date/Time August 02, 2025 3 :01pm [facility] Cancer Care [address] [place] [address] Consultation - Oncology IP 08/02/25 1339 MR#: [id number] Acct: [id number] Name: GLENN PARADA DEV Rep #:[id number] [...] Do you have a Healthcare Power of Dealer Sales Manager?: Yes [facility] Medical History Encounter for education Wears glasses [...] 1,000 mg soluble 1,000 mg PO QD-QID TN N electrolyte 07/26/25 Unknown Rx tablet replenishment [...] (Auto) 56.1, Lymph % (Auto) 18.7 L, [place] % (Auto) 19.6 H, Eos % (Auto) [...] 18:25 IMPRESSION: No Acute Findings. Reading Location: [facility] Chest CTA 07/30/25 22:16 IMPRESSION: Right lower [...] ICU at 12:33 a.m. EST. Reading Location: [place] [address] 08/02/25 1401 <Electronically signed by Simone Collins MD> CC: Dr. Eloina Chi MD ~ Signed [facility] Work Phone: 1(489) 843-104110-20-2025 Progress note Author Dev Reardon [facility] Note Date/Time August 02, 2025 9 :32am [facility] Medical Records Department [address] [place] [address] Progress Note - Hospitalist 08/02/25 0826 MR#: [id number] Acct: [id number] Name: GLENN PARADA DEV Rep #:[id number] [...] Freq: Status: Active Protocol: Document 07/31/25 11:30 [facility] (Rec: 07/31/25 11:30 [facility] [id number]) Nutrition Malnutrition Evidence of Yes Malnutrition Exists [...] (Auto) 56.1, Lymph % (Auto) 18.7 L, [place] % (Auto) 19.6 H, Eos % (Auto) [...] (Auto) 56.1, Lymph % (Auto) 18.7 L, [place] % (Auto) 19.6 H, Eos % (Auto) [...] 18:25 IMPRESSION: No Acute Findings. Reading Location: [facility] Chest CTA 07/30/25 22:16 IMPRESSION: Right lower [...] ICU at 12:33 a.m. EST. Reading Location: [place] [address] Charges/Coding Visit Charges Inpatient E&M: 56580 Subs Hosp L3 08/02/25 0832 <Electronically signed by Dev Reardon MD> Cosigner Signature (if applicable): CC: ~ Signed [facility] Work Phone: 1(872) 294-187710-19-2025 Progress note Author Sundar Reid [facility] Note Date/Time August 01, 2025 3 :33pm [facility] Medical Records Department [address] [place] [address] Progress Note - Sash Maker 08/01/25 1431 MR#: [id number] Acct: [id number] Name: GLENN PARADA DEV Rep #:[id number] [...] 07/30/25 20:31 07/31/25 20:04 IV 15 mls/hr .[id number] PRN Administration Saline Flush Sodium Chloride 250 mls @ 15 mls/hr 07/30/25 20:31 07/31/25 20:05 IV 15 mls/hr .[id number] PRN Administration Additional IVPB Infusion Vancomycin HCl [...] mg 07/31/25 10:00 Prucalopride [Motegrity] PO DAILY [facility] Ondansetron HCl 4 mg 07/30/25 20:30 Ondansetron 4 Mg/2 Ml Vial IV Q8H PRN PRN NAUSEA/VOMITING Pantoprazole Sodium 40 mg 07/30/25 20:30 08/01/25 09:53 Pantoprazole Sodium 40 Mg Tablet PO Not Given DAILY [facility] Potassium Phos/Sodium Phos 1 packet 08/01/25 14:20 Na Biphos/Potassium Phosphate Packet PO 08/03/25 14:21 TID [facility] Senna/Docusate Sodium 2 tablet 07/31/25 22:00 08/01/25 09:53 Senna/Docusate Sodium 1 Tablet GT Not Given BID [facility] Sodium Chloride 1 gm 07/30/25 20:30 Sodium Chloride 1 Gm Tablet PO 4X/DAY PRN PRN electrolyte replenishment Sodium Chloride 10 - 40 ml 07/30/25 20:31 08/01/25 04:38 0.9% Saline Lock 10 Ml Syringe IV 40 ml UD PRN Administration SALINE FLUSH Tamsulosin HCl 0.4 mg 07/30/25 22:00 08/01/25 09:52 Tamsulosin Hcl 0.4 Mg Capsule PO Not Given BID [facility] Tbo-Filgrastim 300 mcg 08/02/25 10:00 Tbo-Filgrastim 300 Mcg/0.5 Ml Ml SC 08/05/25 10:01 DAILY [facility] Vancomycin Protocol 1 lab 08/02/25 19:30 Vancomycin Trough/Random Due MC 08/02/25 21:30 DAILY [facility] Medical Records Data Medical Nutrition Assessment Dietitian: Malnutrition Criteria Met Start: 07/31/25 11:30 Freq: Status: Active Protocol: Document 07/31/25 11:30 SLA (Rec: 07/31/25 11:30 SLA [id number]) Nutrition Malnutrition Evidence of Yes Malnutrition Exists [...] Not Reportable, Lymph % (Auto) Not Reportable, [place] % (Auto) Not Reportable, Eos % (Auto) [...] Cosigner Signature (if applicable): CC: ~ Signed [facility] Work Phone: 1(803) 211-920810-19-2025 Consult note Author Brady Longoria [facility] Note Date/Time August 04, 2025 2 :07pm [facility] Medical Records Department [address] [facility] [place] [address] Pharmacokinetic/Renal -Consult 08/01/25 1034 MR#: [id number] Acct: [id number] Name: GLENN PARADA DEV Rep #:[id number] : 1945 80 From: Brady Aparicio [facility] PCP: Dr. Eloina Chi MD Status:ADM [...] 08/01/25 1034 <Electronically signed by Brady [facility]> Date _ Brady Longoria [facility] Cosigner Signature (if applicable): Date CC: ~ Signed [facility] Work Phone: 1(804) 102-864110-19-2025 Progress note Author Devbo Reardon [facility] Note Date/Time August 01, 2025 9 :47am [facility] Medical Records Department [address] [place] [address] Progress Note - Hospitalist 08/01/25 0823 MR#: [id number] Acct: [id number] Name: GLENN PARADA DEV Rep #:[id number] [...] 07/31/25 11:30 SLA (Rec: 07/31/25 11:30 SLA [id number]) Nutrition Malnutrition Evidence of Yes Malnutrition Exists [...] Not Reportable, Lymph % (Auto) Not Reportable, [place] % (Auto) Not Reportable, Eos % (Auto) [...] Review May foll, Platelet Estimate SLT DEC, [place] Cells 1+, Sodium 135, Potassium 2.6 L*, [...] Not Reportable, Lymph % (Auto) Not Reportable, [place] % (Auto) Not Reportable, Eos % (Auto) [...] Review May foll, Platelet Estimate SLT DEC, [place] Cells 1+, Sodium 135, Potassium 2.6 L*, [...] 18:25 IMPRESSION: No Acute Findings. Reading Location: [facility] Chest CTA 07/30/25 22:16 IMPRESSION: Right lower [...] ICU at 12:33 a.m. EST. Reading Location: [place] [address] Charges/Coding Visit Charges Inpatient E&M: 13594 Subs Hosp L3 08/01/25 0847 <Electronically signed by Dev Reardon MD> Cosigner Signature (if applicable): CC: ~ Signed [facility] Work Phone: 1(755) 530-455710-18-2025 Progress note Author Dev [facility] Note Date/Time July 31, 2025 5 :59pm [facility] Medical Records Department [address] [place] [address] Progress Note - Hospitalist 07/31/25829 MR#: [id number] Acct: [id number] Name: GLENN PARADA DEV Rep #:[id number] [...] (Auto) 45.1 L, Lymph % (Auto) 45.1H, [place] % (Auto) 7.8, Eos % (Auto) 0.0, [...] Clarity Clear, Urine pH 7.0, Ur Specific [place] 1.010, Urine Protein Negative, Urine Glucose (UA) [...] % (Auto) 68.4, Lymph % (Auto) 19.9, [place] % (Auto) 8.1, Eos % (Auto) 0.7, [...] 18:25 IMPRESSION: No Acute Findings. Reading Location: [facility] Chest CTA 07/30/25 22:16 IMPRESSION: Right lower [...] ICU at 12:33 a.m. EST. Reading Location: [place] [address] Physical Exam Narrative Seen and examined Patient [...] (Auto) 45.1 L, Lymph % (Auto) 45.1H, [place] % (Auto) 7.8, Eos % (Auto) 0.0, [...] Clarity Clear, Urine pH 7.0, Ur Specific [place] 1.010, Urine Protein Negative, Urine Glucose (UA) [...] % (Auto) 68.4, Lymph % (Auto) 19.9, [place] % (Auto) 8.1, Eos % (Auto) 0.7, Baso % (Auto) 2.2 H, Absolute Neuts (auto) 0.9 L, Absolute Lymphs (auto) 0.27 L, Nucleated RBC % 0, Differential Comment SCANNED, [place] Cells 1+, Sodium 138, Potassium 3.0 L, Chloride 105, Carbon Dioxide 23.9, Anion Gap 9, BUN 12, Creatinine 0.70, Estim Creat Clear Calc 70.06, Est GFR (MDRD) Non-Af 93, BUN/Creatinine Ratio 17.8, Glucose 110 H, Calcium 6.9 L Clinical Impression(s) from Imaging Studies Chest X-Ray 07/30/25 18:25 IMPRESSION: No Acute Findings. Reading Location: [facility] Chest CTA 07/30/25 22:16 IMPRESSION: Right lower [...] ICU at 12:33 a.m. EST. Reading Location: [place] [address] Charges/Coding Visit Charges Inpatient E&M: 72899 Subs Hosp L3 07/31/25 2649 <Electronically signed by Dev Reardon MD> Cosigner Signature (if applicable): CC: ~ Signed [facility] Work Phone: 1(248) 744-854110-18-2025 Progress note Author Sundar Reid [facility] Note Date/Time July 31, 2025 1 2:43pm [facility] Medical Records Department [address] [place] [address] Progress Note - Sash Maker 07/31/25 1134 MR#: [id number] Acct: [id number] Name: GLENN PARADA DEV Rep #:[id number] [...] 00:03 Clarify Order NOTE Not Given CLARIFY [facility] Enoxaparin Sodium 70 mg 07/31/25 01:00 07/31/25 [...] mls @ 15 mls/hr 07/30/25 20:31 IV .[id number] PRN Saline Flush Sodium Chloride 250 mls @ 15 mls/hr 07/30/25 20:31 IV .[id number] PRN Additional IVPB Infusion Vancomycin HCl 750 [...] mg 07/31/25 10:00 Prucalopride [Motegrity] PO DAILY [facility] Ondansetron HCl 4 mg 07/30/25 20:30 Ondansetron 4 Mg/2 Ml Vial IV Q8H PRN PRN NAUSEA/VOMITING Pantoprazole Sodium 40 mg 07/30/25 20:30 07/30/25 21:26 Pantoprazole Sodium 40 Mg Tablet PO 40 mg DAILY [facility] Administration Senna 1 tablet 07/30/25 20:30 Senna [...] 0.4 Mg Capsule PO Not Given BID [facility] Vancomycin Protocol 1 lab 08/01/25 05:00 Vancomycin Trough/Random Due MC 08/01/25 07:00 DAILY [facility] Medical Records Data Medical Nutrition Assessment Dietitian: Malnutrition Criteria Met Start: 07/31/25 11:30 Freq: Status: Active Protocol: Document 07/31/25 11:30 SLA (Rec: 07/31/25 11:30 [facility] [id number]) Nutrition Malnutrition Evidence of Yes Malnutrition Exists [...] 45.1 L, Lymph % (Auto) 45.1 H, [place] % (Auto) 7.8, Eos % (Auto) 0.0, [...] Clarity Clear, Urine pH 7.0, Ur Specific [place] 1.010, Urine Protein Negative, Urine Glucose (UA) [...] % (Auto) 68.4, Lymph % (Auto) 19.9, Highlands % (Auto) 8.1, Eos % (Auto) 0.7, Baso % (Auto) 2.2 H, Absolute Neuts (auto) 0.9 L, Absolute Lymphs (auto) 0.27 L, Nucleated RBC % 0, Differential Comment SCANNED, [place] Cells 1+, Sodium 138, Potassium 3.0 L, [...] 18:25 IMPRESSION: No Acute Findings. Reading Location: [facility] Chest CTA 07/30/25 22:16 IMPRESSION: Right lower [...] ICU at 12:33 a.m. EST. Reading Location: [place] [address] Assessment and Plan . Assessment and plan: [...] for chemotherapy hold. * oral care and [employer] to evaluate for swallowing Metastatic Oropharyngeal Cancer [...] Cosigner Signature (if applicable): CC: ~ Signed [facility] Work Phone: 1(710) 660-295810-18-2025 Consult note Author Smooth Fall [facility] Note Date/Time July 31, 2025 8 :46am [facility] Medical Records Department [address] [place] [address] Consultation - Sash Maker 07/31/25 0328 MR#: [id number] Acct: [id number] Name: GLENN PARADA DEV Rep #:[id number] [...] removed his port access, whichwas re-accessed successfully. [facility] Medical History Encounter for education Wears glasses [...] 1,000 mg soluble 1,000 mg PO QD-QID TN N electrolyte 07/26/25 Unknown Rx tablet replenishment [...] 00:03 Clarify Order NOTE Not Given CLARIFY [facility] Enoxaparin Sodium 70 mg 07/31/25 01:00 07/31/25 [...] mls @ 15 mls/hr 07/30/25 20:31 IV .[id number] PRN Saline Flush Sodium Chloride 250 mls @ 15 mls/hr 07/30/25 20:31 IV .[id number] PRN Additional IVPB Infusion Vancomycin HCl 750 mg/ Sodium 265 mls @ 250 mls/hr 07/31/25 06:30 Chloride IV Q12H [facility] Levothyroxine Sodium 50 mcg 07/31/25 06:00 Levothyroxine 50 Mcg Tablet PO DAILY@0600 [facility] Lidocaine/Diphenhydr/Alum/Mg/Simeth 15 ml 07/30/25 20:44 Bmx Liquid 180 Ml PO 4X/DAY PRN PRN Pain Score 1-10 Lidocaine/Prilocaine 1 gm 07/30/25 20:42 Lidocaine/Prilocaine Hcl 5 Gm Tube TOPICAL X1 PRN PORT ACCESS Protocol Nitroglycerin 0.4 mg 07/30/25 20:30 Nitroglycerin (Inpatient Use) 0.4 Mg Tab.Subl SL Q5M PRN CARDIAC/CHEST PAIN Non-Formulary Medication 2 mg 07/31/25 10:00 Prucalopride [Motegrity] PO DAILY [facility] Ondansetron HCl 4 mg 07/30/25 20:30 Ondansetron 4 Mg/2 Ml Vial IV Q8H PRN PRN NAUSEA/VOMITING Pantoprazole Sodium 40 mg 07/30/25 20:30 07/30/25 21:26 Pantoprazole Sodium 40 Mg Tablet PO 40 mg DAILY [facility] Administration Senna 1 tablet 07/30/25 20:30 Senna [...] 0.4 Mg Capsule PO Not Given BID [facility] Vancomycin Protocol 1 lab 08/01/25 05:00 Vancomycin Trough/Random Due 08/01/25 07:00 DAILY [facility] Physical Exam Narrative General: Elderly, frail male; [...] 45.1 L, Lymph % (Auto) 45.1 H, [place] % (Auto) 7.8, Eos % (Auto) 0.0, [...] Clarity Clear, Urine pH 7.0, Ur Specific [place] 1.010, Urine Protein Negative, Urine Glucose (UA) [...] 18:25 IMPRESSION: No Acute Findings. Reading Location: [facility] Chest CTA 07/30/25 22:16 IMPRESSION: Right lower [...] ICU at 12:33 a.m. EST. Reading Location: [place] [address] Assessment and Plan . Assessment and plan: [...] applicable): CC: Dr. Eloina Chi MD~ Signed [facility] Work Phone: [phone] 833-303110-18-2025 History and physical note Author Rain [facility] Note Date/Time July 31, 2025 7 :[address] [place] [address] System Medical Records Department [address] [place] [address] H&P Exam - Hospitalist 07/30/251938 MR#: [id number] Acct: [id number] Name: GLENN PARADA DEV Rep #:[id number] [...] in the ED were BP of 133/81, TN of 126, RR of 16 and temp [...] in a patient with metastatic oropharyngeal cancer. [facility] Medical History Encounter for education Wears glasses [...] 1,000 mg soluble 1,000 mg PO QD-QID TN N electrolyte 07/26/25 Unknown Rx tablet replenishment [...] (Auto) 45.1 L, Lymph % (Auto) 45.1H, [place] % (Auto) 7.8, Eos % (Auto) 0.0, [...] Clarity Clear, Urine pH 7.0, Ur Specific [place] 1.010, Urine Protein Negative, Urine Glucose (UA) Normal, UrineKetones 5 H, Urine Occult Blood 10 H, Urine Nitrite Negative, Urine Bilirubin Negative, Urine Urobilinogen Normal, Ur Leukocyte Esterase Negative Imaging Radiology Impression Chest X-Ray 07/30/25 18:25 IMPRESSION: No Acute Findings. Reading Location: [facility] Assessment & Plan Assessment/Plan (1) Encephalopathy acute: [...] him to be full code. * Total vcen-gs-orxd time 17 minutes. Charges/Coding Visit Charges Inpatient E&M: 79565 Init Hosp L3 Procedures Hospitalists Procedures: 82085 Advncd Care Plan 30 Min 07/31/25 0654 <Electronically signed by Rain Gallagher MD> Cosigner Signature (if applicable): CC: Dr. Eloina Chi MD; Dr. Rain Gallagher MD~ Signed [facility] Work Phone: 1([phone]) 369-720110-18-2025 Radiology Diagnostic study [facility]10-18-2025 Radiology Diagnostic study [facility]10-17-2025 Consult note Author Julia Carter [facility] Note Date/Time July 30, 2025 9 :57pm [facility] Medical Records Department [address] [place] [address] Pharmacokinetic/Renal -Consult 07/30/252054 MR#: [id number] Acct: [id number] Name: GLENN PARADA DEV Rep #:[id number] [...] Estimated Creatinine Clearance Estimated Creatinine Clearance: 69.2 ML/CA Pharmacy Plan for Drug Dosing Pharmacy Plan [...] Signature (if applicable): Date CC: ~ Signed [facility] Work Phone: [phone]) 556-972710-17-2025 Discharge summary Author Trevor Nguyen [facility] Note Date/Time July 30, 2025 9 :09pm [facility] Medical Records Department [address] [place] [address] Emergency Department Summary 07/30/25 MR#: [id number] Acct: [id number] Name: GLENN PARADA DEV Rep #:[id number] [...] Prior similar symptoms: No Recent Illness/Hospitalization: [facility] Medical History Encounter for education Wears glasses [...] 1,000 mg soluble 1,000 mg PO QD-QID TN N electrolyte 07/26/25 Unknown Rx tablet replenishment [...] 45.1 L Lymph % (Auto) 45.1 H [place] % (Auto) 7.8 Eos % (Auto) 0.0 [...] Clarity Clear Urine pH 7.0 Ur Specific [place] 1.010 Urine Protein Negative Urine Glucose (UA) [...] 18:25 IMPRESSION: No Acute Findings. Reading Location: [facility] EKG Initial EKG: Attestation: I personally reviewed and interpreted this EKG as follows: Interpretation: Sinus Tachycardia (Rate is 129. There are premature atrial complexes noted. TN interval is 158 ms. Cures duration 74 ms. QT duration 116 ms. [place] is normal) Management Discussion w/another healthcare provider: [...] Nondiabetic hyperglycemia Disposition Disposition: Acute Care Hospital [facility] What to do if you have Problems For any increased pain, shortness of breath, bleeding, nausea or vomiting, chestpain, or any unexpected problems, contact your Primary Care Provider. Call [employer] [facility] ([phone]) or report to the closest Emergency Room. Call 911 if necessary. 07/30/251945 <Electronically signed by Trevor Nguyen MD> Cosigner Signature (if applicable): CC: Dr. Eloina Chi MD ~ Signed [facility] Work Phone: [phone]) 761-523810-17-2025 Radiology Diagnostic study [facility]10-17-2025 Radiology Diagnostic study [facility]10-17-2025 Discharge summary Author Trevor Nguyen [facility] Note Date/Time July 30, 2025 8 :09pm [facility] Medical Records Department [address] [facility] [place] [address] Emergency Department Summary 07/30/25 MR#: [id number] Acct: [id number] Name: GLENN PARADA DEV Rep #:[id number] [...] 1,000 mg soluble 1,000 mg PO QD-QID TN N electrolyte 07/26/25 Unknown Rx tablet replenishment [...] 45.1 L Lymph % (Auto) 45.1 H [place] % (Auto) 7.8 Eos % (Auto) 0.0 [...] Clarity Clear Urine pH 7.0 Ur Specific [place] 1.010 Urine Protein Negative Urine Glucose (UA) [...] 18:25 IMPRESSION: No Acute Findings. Reading Location: [facility] EKG Initial EKG: Attestation: I personally reviewed and interpreted this EKG as follows: Interpretation: Sinus Tachycardia (Rate is 129. There are premature atrial complexes noted. TN interval is 158 ms. Cures duration 74 ms. QT duration 116 ms. [place] is normal) Management Discussion w/another healthcare provider: [...] acute, Parkinson's disease, Nondiabetic hyperglycemia Disposition Disposition: [facility] What to do if you have Problems For any increased pain, shortness of breath, bleeding, nausea or vomiting, chestpain, or any unexpected problems, contact your Primary Care Provider. Call [facility] ([phone]) or report to the closest Emergency Room. Call 911 if necessary. 07/30/251945 <Electronically signed by Trevor Nguyen MD> Cosigner Signature (if applicable): CC: Dr. Eloina Chi MD ~ Signed [facility] Work Phone: 1([phone]) 979-717110-13-2025 Progress note Author Simone Collins [facility] Note Date/Time July 26, 2025 9 :38am [facility] Cancer [address] [address] OFFICE VISIT Date of Service: 07/26/25 0836 MR#: [id number] Acct: [id number] Name: GLENN PARADA DEV Rep #: [id number] : 1945 From: Simone Collins MD Age/Sex: 80/M Location: [facility] Status: Signed HPI Subjective Date of Service [...] He was referred to Dr. Siegel at [facility], had left tonsil biopsy on 05/28/2025, pathology showed Invasive squamous cell carcinoma, HPV positive. Began definitive chemoradiation with carboplatin/paclitaxel on 07/05/25. Comes for C4. Feels well. Fell when he was getting out of bed. [facility] Medical History Encounter for education Wears glasses [...] 1,000 mg soluble 1,000 mg PO QD-QID TN N electrolyte 07/26/25 07/28/25 Rx tablet replenishment [...] applicable) CC: Dr. Eloina Chi MD ~ [facility] Work Phone: [phone]) 373-924310-08-2025 [facility] [address] [place] [address] OFFICE VISIT Date of Service: 07/21/25 1329 MR#: [id number] Acct: [id number] Name: GLENN PARADA DEV Rep #: [id number] : 1945 From: En smallwood DO Age/Sex: 80/M Location: [facility] Status: Signed Intake Vital Signs 07/05/25 11:46 [...] at any time. 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 [address] OFFICE VISIT Date of Service: 07/19/25822 MR#: [id number] Acct: [id number] Name: GLENN PARADA DEV Rep #: [id number] : 1945 From: Simone Collins MD Age/Sex: 80/M Location: [facility] Status: Signed HPI Subjective Date of Service [...] He was referred to Dr. Siegel at [facility], had left tonsil biopsy on 05/28/2025, pathology showed Invasive squamous cell carcinoma, HPV positive. Began definitive chemoradiation with carboplatin/paclitaxel on 07/05/25. Comes for C3. Feels well. [facility] Medical History Encounter for education Wears glasses [...] 0902 D> Date _ Simone Collins MD [facility] Signature: Date (if applicable) CC: Dr. Eloina Chi MD ~ [facility]10-01-2025 [facility] [address] [place] [address] OFFICE VISIT Date of Service: 07/14/25 1328 MR#: [id number] Acct: [id number] Name: GLENN PARADA DEV Rep #: [id number] : 1945 From: En smallwood DO Age/Sex: 80/M Location: [facility] Status: Signed Intake Vital Signs 07/05/25 11:46 [...] at any time. 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 [address] [place] [address] OFFICE VISIT Date of Service: 07/12/25 MR#: [id number] Acct: [id number] Name: GLENN PARADA DEV Rep #: [id number] : 1945 Provider: DIVYA Sexton Age/Sex: 80/M Location: [facility] Status: Signed Intake Vital Signs 06/30/25 07:23 [...] percutaneous endoscopic gastrostomy (PEG) tube placement Z93.1 [facility] Medical History Encounter for education Wears glasses [...] DI[place] Date _ Elizabeth GARCIAS PA-C [facility] Signature: Date (if applicable) CC: Dr. Eloina Chi MD ~ [facility]09-29-2025 [facility] Cancer [address] [address] OFFICE VISIT Date of Service: 07/12/25 0752 MR#: [id number] Acct: [id number] Name: GLENN PARADA DEV Rep #: [id number] : 1945 From: Jayashree Costa ch LANDSCAPE MANAGER LANDSCAPE MANAGER-C Age/Sex: 80/M [place] [facility] Status: Signed HPI Subjective Date of Service [...] He was referred to Dr. Siegel at [facility], had left tonsil biopsy on 05/28/2025, [...] N/V, numbness/tingling, and swelling of his extremities. [facility] Medical History Encounter for education Wears glasses [...] the past year?: No 07/12/25 0950 h LANDSCAPE MANAGER LANDSCAPE MANAGER-C> Date _ Jayashree Anderson LANDSCAPE MANAGER LANDSCAPE MANAGER-C Cosigner Signature: Date (if applicable) CC: ~ [facility]09-25-2025 Procedure note [facility] Speech Pathology [address] [place] [address] Modified Barium Swallow Study MR#: [id number] Acct: [id number] Name: GLENN PARADA DEV Rep #:[id number] : 1945 80 From: Augusta Llamas, [facility] Modified Barium Swallow Patient Information Study Date: [...] full PMH. 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 He lives at home [...] to attempt ejecting barium, which was somewhateffective. [place] Thick Liquid via large single sip: cup: [...] Status Active ST Patient: Active Contact Information [facility] Speech Therapy:: Augusta Ashford M.A. CCC-[facility] Speech-Language Pathologist [facility] [address] [place] [address] [email or web address] [phone] 07/08/25 1442 Mere [employer]-[facility]> Date/Time Augusta Ashford M.A., [employer]-[facility] [employer] Co-Signature Required for all Medicare patients Date/Time Co-Signature CC: ~ [facility]09-24-2025 Progress [facility] [address] [facility] [place] [address] OFFICE VISIT Date of Service: 07/07/25 1359 MR#: [id number] Acct: [id number] Name: GLENN PARADA Rep #: [id number] : 1945 From: En smallwood DO Age/Sex: 80/M [place] [facility] Status: Signed Intake Vital Signs 07/05/25 11:46 [...] Central Venous Access: Yes Port/PICC: Port PFSH [facility] Medical History Encounter for education Wears glasses [...] at any time. 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 Status: Signed with Addenda ADDENDUM by Dr. [...] He was referred to Dr. Siegel at [facility], had left tonsil biopsy on 05/28/2025, [...] He was referred to Dr. Siegel at [facility], had left tonsil biopsy on 05/28/2025, [...] He was referred to Dr. Siegel at [facility], had left tonsil biopsy on 05/28/2025, pathology showed Invasive squamous cell carcinoma, HPV positive. Chemoradiation therapy was suggested as definitive treatment. [facility] Medical History Encounter for education Wears glasses [...] applicable) CC: Dr. Eloina Chi MD ~ [facility]09-17-2025 Radiology Diagnostic study note [facility] Imaging Services [address] [place], [place] [address] Chest 1 View (Portable) MR#: [id number] Acct: [id number] Name: GLENN PARADA DEV Rep #: [id number] : 1945 M 80 From: Spencer Sutton MD PCP: Dr. Eloina Chi MD Status: REG SD C Study:Chest 1 View (Portable) Date of Exam: 06/30/25 Exam# [id number] Ordering Dr: Kalyn Ng MD PROCEDURE: CHEST [...] atrium. No evidence of pneumothorax. Reading Location: [place] [address] CC: Dr. Eloina Chi MD; Dr. Kalyn Ng MD ~ [employer]: Signed [facility]09-17-2025 History and physical note Author Kalyn Ng [facility] Note Date/Time June 30, 2025 8:15am [facility] Medical Records Department [address] [place] [address] History & Physical Exam 06/30/2518 MR#: [id number] Acct: [id number] Name: GLENN PARADA DEV Rep #:[id number] : 1945 80 From: Kalyn Ng MD PCP: Dr. Eloina hCi MD Status:REG SD C Location: [place] [address] History and Physical Date of Admission: 06/30/25 Date of Service: 06/21/25 MR#: [id number] Acct: [id number] Name: GLENN PARADA DEV Rep #: [id number] : 1945 Provider: Dr. Kalyn Ng MD Age/Sex: 80/M Location: [facility] Status: Signed Intake Vital Signs 06/17/2513:42 06/18/2510:30 [...] no further questions. Kalyn Ng M.D. Pager: [phone] [facility] [address] [place] [address], [address] [place] [address] Office: [phone] Coding Level of Care Code Off vis,new,level [...] MD; Dr. Kalyn Ng MD ~* Signed [facility] Work Phone: 1(349) 376-908009-17-2025 Procedure note [facility] Medical Records Department [address] [place] [address] EGD Report MR#: [id number] Acct: [id number] Name: GLENN PARADA DEV Rep #:[id number] [...] present medications. Procedure Code(s): --- Professional --- 13853, Esophagogastroduodenoscopy, flexible, transoral; with directed placement of percutaneous gastrostomy tube 75388, Esophagogastroduodenoscopy, flexible, transoral; with biopsy, single or multiple Diagnosis Code(s): --- Professional --- K22.89, Other specified disease of esophagus K29.70, Gastritis, unspecified, without bleeding K44.9, Diaphragmatic hernia without obstruction or gangrene D37.05, Neoplasm of uncertain behavior of pharynx R63.39, Other feeding difficulties Z43.1, Encounter for attention to gastrostomy CPT copyright 2021 [employer]. All rights reserved. The codes documented in this report are preliminary and upon equipment operator intermodal yard review may be revised to meet current compliance requirements. MD Kalyn Kaufman MD 06/30/2025 10:03:04 AM This report has been signed electronically. Number of Addenda: 0 Note Initiated On: 06/30/2025 8:32 AM 06/30/25 1003 Date _ Kalyn Ng MD Cosigner Signature: Date (if indicated) CC: Dr. Eloina Chi MD; Dr. Kalyn Ng MD ~ Date Dictated: 06/30/25 0832 Date Transcribed: Vp Corporate Development: TR Signed [facility]09-17-2025 Procedure note [facility] Medical Records Department [address] [place] [address] Provation Physician Letter MR#: [id number] Acct: [id number] Name: PARADAGLENN DEV Rep #:[id number] : [...] MD ~ Date Dictated: 06/30/2532 Date Transcribed: Vp Corporate Development: TR Hugo [facility]09-17-2025 Consult note Author Ho Rushing [facility] Note Date/Time June 30, 2025 8:02am [facility] Medical Records Department [address] [place] [address] Pre-Anesthesia Evaluation 06/30/25 0757 MR#: [id number] Acct: [id number] Name: GLENN PARADA DEV Rep #:[id number] : 1945 80 From: Ho Segovia PCP: Dr. Eloina Chi MD Status:REG SD C Y Race: C Location: [place] [address] ASA Classification* ASA Classification ASA Classification: 3 [...] TUBE INSERTION Anesthesia History Anesthesia History - storage wharfage clerk: Anesthesia History - storage wharfage clerk Hx Hospitalization No 06/24/25 08:12 Any Problems [...] omeprazole, motegrity, fludrocort, Tamsulosin PONV PONV - storage wharfage clerk: PONV - storage wharfage clerk Female No 06/24/25 08:12 HX of Motion [...] 06/30/25 07:23 Respiratory Assessment Respiratory Assessment - storage wharfage clerk: Respiratory Tract Infection Hx - storage wharfage clerk Hx Respiratory Tract Infection No 06/24/25 08:12 STOP Sleep Apnea STOP Sleep Apnea - storage wharfage clerk: STOP Sleep Apnea - storage wharfage clerk Hx Hypertension No 06/24/25 08:12 Hx Sleep [...] 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 - storage wharfage clerk: Tobacco Use History - storage wharfage clerk Tobacco Use Smoking Status Former smoker 06/24/25 08:12 Hx Tobacco Use No 06/24/25 08:12 Years Smoking Packs Smoked per Day Smoking Cessation Date was No - quit smoking greater 06/24/25 08:12 within the last 15 years than 15 years ago Hx Smoking Cessation Date 10/14/69 06/24/25 08:12 Hx Smoking Cessation Counseling Hematologic Medial History Hematologic Hx - storage wharfage clerk: Hematologic Medical Hx - student development coordinator Hx of Blood Transfusion No 06/24/25 08:12 [...] confused, unrespo /Reproduction History /Reproductive History - storage wharfage clerk: /Reproductive Hx- storage wharfage clerk Hx Now No 06/24/25 08:12 Gestational Age [...] MD Cosigner Signature: Date CC: ~ Signed [facility] Work Phone: 1(123) 142-896809-17-2025 Consult note [facility] Medical Records Department [address] [place] [address] Anesthesia Postop Eval I 06/30/25958 MR#: [id number] Acct: [id number] Name: GLENN PARADA DEV Rep #:[id number] : 1945 80 From: Ginny rehman CRNA PCP: Dr. Eloina hCi MD Status:REG SD C Y Race: C Location: [place] [address] Anesthesia: Postop Eval I Current Vital Signs [...] Postop Eval 1 completed: Yes 06/30/25958 tanika CUSTOMER EXPERIENCE CONSULTANT> Date _ Ginny Luigner Signature: Date CC: ~ Signed [facility]09-17-2025 Discharge summary [facility] Medical Records Department [address] [place] [address] Instructions for Home/Discharge Instructions 06/30/25 0948 MR#: [id number] Acct: [id number] Name: GLENN PARADA DEV Rep #:[id number] [...] Care Provider: Eloina Chi Instructions Print Language: Ukrainian Discharge Orders/Prescriptions Prescriptions: Continued levothyroxine 50 mcg [...] CC: Dr. Eloina Chi MD ~ Signed [facility]09-17-2025 History and physical note [facility] Medical Records Department [address] [place] [address] History & Physical Exam 06/30/25 0718 MR#: [id number] Acct: [id number] Name: GLENN PARADA DEV Rep #:[id number] : 1945 80 From: Kalyn Ng MD PCP: Dr. Eloina Chi MD Status:REG SD C Location: [place] [address] History and Physical Date of Admission: 06/30/25 Date of Service: 06/21/25 MR#: [id number] Acct: [id number] Name: GLENN PARADA DEV Rep #: [id number] : 1945 Provider: Dr. Kalyn Ng MD Age/Sex: 80/M Location: [facility] Status: Signed Intake Vital Signs 06/17/2513:42 06/18/2510:30 [...] healthy appearing, comfortable and no acute distress [facility] Head: normocephalic and atraumatic Neck Neck: supple [...] no further questions. Kalyn Ng M.D. Pager: [phone] [facility] [address] [place] [address], [address] [place] [address] Office: [phone] Coding Level of Care Code Off vis,new,level [...] MD; Dr. Kalyn Ng MD ~* Signed [facility]09-17-2025 Consult note [facility] Medical Records Department [address] [place] [address] Pre-Anesthesia Evaluation 06/30/25 0757 MR#: [id number] Acct: [id number] Name: GLENN PARADA DEV Rep #:[id number] : 1945 80 From: Ho Segovia PCP: Dr. Eloina Chi MD Status:REG SD C Y Race: C Location: [place] [address] ASA Classification* ASA Classification ASA Classification: 3 [...] TUBE INSERTION Anesthesia History Anesthesia History - storage wharfage clerk: Anesthesia History - storage wharfage clerk Hx Hospitalization No 06/24/25 08:12 Any Problems [...] omeprazole, motegrity, fludrocort, Tamsulosin PONV PONV - storage wharfage clerk: PONV - storage wharfage clerk Female No 06/24/25 08:12 HX of Motion [...] 06/30/25 07:23 Respiratory Assessment Respiratory Assessment - storage wharfage clerk: Respiratory Tract Infection Hx - storage wharfage clerk Hx Respiratory Tract Infection No 06/24/25 08:12 STOP Sleep Apnea STOP Sleep Apnea - storage wharfage clerk: STOP Sleep Apnea - storage wharfage clerk Hx Hypertension No 06/24/25 08:12 Hx Sleep [...] 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 - storage wharfage clerk: Tobacco Use History - storage wharfage clerk Tobacco Use Smoking Status Former smoker 06/24/25 08:12 Hx Tobacco Use No 06/24/25 08:12 Years Smoking Packs Smoked per Day Smoking Cessation Date was No - quit smoking greater 06/24/25 08:12 within the last 15 years than 15 years ago Hx Smoking Cessation Date 10/14/69 06/24/25 08:12 Hx Smoking Cessation Counseling Hematologic Medial History Hematologic Hx - storage wharfage clerk: Hematologic Medical Hx - student development coordinator Hx of Blood Transfusion No 06/24/25 08:12 [...] confused, unrespo /Reproduction History /Reproductive History - storage wharfage clerk: /Reproductive Hx- storage wharfage clerk Hx Now No 06/24/25 08:12 Gestational Age [...] Ho Luigncristina Signature: Date CC: ~ Signed [facility]09-17-2025 [facility]09-16-2025 Telephone encounter Note* Telephone Encounter - Aries [...] out with in the meantime. 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 Patient had complaints of numbness [...] port placement will be done at [facility]. ENT is [facility] provider. documented in this encounterUniversity [facility]25 Progress note Author Jayashree Anderson [facility] Services Note Date/Time June 28, 2025 4:32pm [facility] [address] [place] [address] OFFICE VISIT Date of Service: 06/28/25 1502 MR#: [id number] Acct: [id number] Name: GLENN PARADA DEV Rep #: [id number] : 1945 From: Jayashree Costa ch LANDSCAPE MANAGER LANDSCAPE MANAGER-C Age/Sex: 80/M Location: [facility] Status: Signed HPI Subjective Date of Service [...] He was referred to Dr. Siegel at [facility], had left tonsil biopsy on 05/28/2025, pathology showed Invasive squamous cell carcinoma, HPV positive. Chemoradiation therapy was suggested as definitive treatment. Interval History The patient is presenting to clinic accompanied by spouse to discuss chemotherapy, carboplatin/paclitaxel. Appetite good, meats limited to chicken and ground beef, otherwise no dysphagia limiting nutritional intake. Performs self care ADLs independently. + Neuropathy involving feet bilat. [facility] Medical History (Updated 06/28/25 @ 15:30 by Jayashree Anderson LANDSCAPE MANAGER, LANDSCAPE MANAGER-C) Encounter for education Wears glasses Cancer Alcohol [...] 1632 <Electronically signed by Jayashree juarez NP LANDSCAPE MANAGER-C> Date _ Jayashree Anderson NP LANDSCAPE MANAGER-C Cosigner Signature: Date (if applicable) CC: ~ [facility] Work Phone: 1(490) 520-575209-15-2025 Progress [facility] [address] [address] OFFICE VISIT Date of Service: 06/28/25 1502 MR#: [id number] Acct: [id number] Name: PARADAGLENN Rep #: [id number] : 1945 From: Jayashree Costa ch, NP LANDSCAPE MANAGER-C Age/Sex: 80/M Location: [facility] Status: Signed HPI Subjective Date of Service [...] He was referred to Dr. Siegel at [facility], had lefttonsil biopsy on 05/28/2025, pathology showed Invasive squamous cell carcinoma, HPV positive. Chemoradiation therapy was suggested as definitive treatment. Interval History The patient is presenting to clinic accompanied by spouse to discuss chemotherapy, carboplatin/paclitaxel. Appetite good, meats limited to chicken and ground beef, otherwise no dysphagia limiting nutritional intake. Performs self care ADLs independently. + Neuropathy involving feet bilat. 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 Patient had complaints of numbness [...] port placement will be done at [facility]. ENT is [facility] provider. [facility]09-08-2025 Progress [facility] [address] [place] [address] OFFICE VISIT Date of Service: 06/21/25 MR#: [id number] Acct: [id number] Name: PARADAGLENN DEV Rep #: [id number] : 1945 Provider: Dr. Diogenes Ng MD Age/Sex: 80/M Location: [facility] Status: Signed Intake Vital Signs 06/17/25 [...] no further questions. Kalyn Ng M.D. Pager: [phone] [facility] [address] [place] [address], [address] [place] [address] Office: [phone] Coding Level of Care Code Off vis,new,level [...] Chi MD; Dr. En Guerin, DO ~ [facility]09-08-2025 Progress note Author Kalyn Ng [facility] Services Note Date/Time June 21, 2025 2:06pm [facility] [address] [place] [address] OFFICE VISIT Date of Service: 06/21/25 MR#: [id number] Acct: [id number] Name: GLENN PARADA DEV Rep #: [id number] : 1945 Provider: Dr. Diogenes Ng MD Age/Sex: 80/M Location: [facility] Status: Signed Intake Vital Signs 06/17/25 [...] healthy appearing, comfortable and no acute distress [facility] Head: normocephalic and atraumatic Neck Neck: supple [...] no further questions. Kalyn Ng M.D. Pager: [phone] [facility] [address] [place] [address], [facility], [address] [place] [address] Office: [phone] Coding Level of Care Code Off vis,new,level [...] Chi MD; Dr. En Guerin, DO ~ [facility] Work Phone: 1(365) 824-284709-04-2025 Evaluation note* Diagnosis Onset Date Resolution Status [...] of oropharynx acute June 21 025 1:21pm [facility] Work Phone: 1(491) [phone] Evaluation note* Diagnosis Onset Date Resolution Status [...] oropharynx acute June 22, 2 025 8:18am [facility] Work Phone: [phone] Evaluation note* Diagnosis Onset Date Resolution Status [...] oropharynx acute June 22, 2 025 8:18am [facility] Work Phone: 1(793) 112-487009-04-2025 Evaluation note* Diagnosis Onset Date Resolution Status [...] 2 025 8:18am Encounter for education acute 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 acute June 28, 2025 2:20pm Squamous cell carcinoma of oropharynx acute June 28, 2025 2:20pm [facility] Work Phone: 1(612) 771-969909-04-2025 Evaluation note* Diagnosis Onset Date Resolution Status [...] tube placement acute July 12, 2025 1:32pm [facility] Work Phone: [phone] 536-542909-04-2025 Evaluation note* Diagnosis Onset Date Resolution Status [...] carcinoma of oropharynx acute July 14 1:07pm [facility] Work Phone: 1(426) 584-870209-04-2025 Evaluation note* Diagnosis Onset Date Resolution Status [...] carcinoma of oropharynx acute July 19 7:39am [facility] Work Phone: 1(447) 275-916109-04-2025 Evaluation note* Diagnosis Onset Date Resolution Status [...] carcinoma of oropharynx acute July 21 1:12pm [facility] Work Phone: 1(338) [phone] Evaluation note* Diagnosis Onset Date Resolution Status [...] June 22 8:18am Encounter for education acute [facility]2024 2:20pm Nodule of chest wall acute Jun [...] carcinoma of oropharynx chronic August 07 5:24am [facility] Work Phone: 1(282) 595-689909-04-2025 Evaluation note* Diagnosis Onset Date Resolution Status [...] carcinoma of oropharynx chronic August 11 1:07pm [facility] Work Phone: 1(818) 314-277109-04-2025 Evaluation note* Diagnosis Onset Date Resolution Status [...] carcinoma of oropharynx chronic August 18 1:13pm [facility] Work Phone: 1([phone]) 210-861008-26-2025 Telephone encounter Note* Telephone Encounter - Andreia Acevedo - 06/08/2025 4:24 PM EDT Error [id number] Miscellaneous Notes* Telephone Encounter - Andreia Acevedo - 06/08/2025 4:24 PM EDT Error documented in this [id number] Discharge summary Author Mayra Clements [facility] Note Date/Time June 07, 2025 1: 30pm [facility] Physical Therapy [facility] [facility]. [address] [place] [address] / REHABILITATION SERVICES DISCHARGE SUMMARY MR#: [id number] Acct: [id number] Name: GLENN PARADA Rep #: [id number] : 1945 80 From: Mayra Clements MP T Referring Dr.: MARNI BOWSER Status: REG R Insurance: [facility] SELF PAY INSURANCE Discharge Summary [...] please feel free to call me at [phone]. Thank you for the referral of thispatient. Sincerely, AMRITA Thompson Balance/Gait/Functional tests Balance/Special Test Scores Functional Gait Assessment Score: 21 % Disability: 30.0000 Lower Extremity Functional Score: 57 Improvement % Improvement: 25 <Electronically signed by Mayra Clements MPT> 06/07/25 1330 CC: Dr. Eloina Chi MD; MARNI BOWSER ~ Signed [facility] Work Phone: 1(777) 642-858708-25-2025 Discharge summary [facility] Physical Therapy [facility] [address] [place] [address]. [address] [place] [address] / REHABILITATION SERVICES DISCHARGE SUMMARY MR#: [id number] Acct: [id number] Name: GLENN PARADA DEV Rep #: [id number] [...] please feel free to call me at [phone]. Thank you for the referral of thispatient. Sincerely, Mayra Clements, MPT Balance/Gait/Functional tests Balance/Special Test Scores Functional Gait Assessment Score: 21 % Disability: 30.0000 Lower Extremity Functional Score: 57 Improvement % Improvement: 25 06/07/25 1330 CC: Dr. Eloina Chi MD; MARNI BOWSER ~ Signed [facility]08-22-2025 History of Present illness Narrative* Reta Siegel MD - 06/04/2025 12:08 PM EDT Images from the original note were not included. Documentation: Mode: Telephone Patient Patient Work Phone: Patient Cell Preferred phone: [phone] Consent: I confirmed patient understanding of the [...] Parkinson's who presents today, 06/04/2025, at the [facility] for follow up regarding left oropharyngeal [...] Administered Date(s) Administered COVID-19 Vaccine (12+ yrs, [employer]) mRNA, spike protein, LNP, pres. free, 30 mcg/0.3mL dose, lola-sucrose (OEP=398) 06/22/2024 Influenza, injectable, high dose seasonal, trivalent, preservative free (GYE=055) 06/22/2024 Tdap (CFW=555) 12/26/2024 Pathologic Review: Final Diagnosis A. Oropharyngeal, [...] -Discussed his case with Dr. Guerin in [place] for definitive treatment and external referrals placed today -discussed the patient that he will need referrals to [facility], nutrition and dentistry and social work but this can likely be arranged with Dr. Guerin's -we will plan for follow up 2-3 months after treatment with me Thank you so much for allowing me to participate in the care of this patient. Please feel free to contact me if you have any questions or concerns. Reta Siegel MD [employer] Department of Otolaryngology - Head and Neck Surgery [facility] Pager: [phone] documented in this [id number] NoteTIME OUT A TIME OUT was performed prior to the procedure using active communication to verify: Correct patient: Yes Correct Procedure/site: Yes Patient tolerated the procedure well. We will call with results and plan. Kia Arthur RNThe [facility] [id number] History of Present illness Narrative* Kia Atrhur RN - 05/28/2025 1:46 PM EDT TIME OUT A TIME OUT was performed prior to the procedure using active communication to verify: Correct patient: Yes Correct Procedure/site: Yes Patient tolerated the procedure well. We will call with results and plan. Kia Arthur RN * Helag Yi MA - 05/28/2025 11:42 AM EDT [...] Parkinson's who presents today, 05/28/2025, at the [facility] at the request of Referring Provider: [...] smokeless tobacco. Medications/Allergies/Immunizations: His current medication(s) include: @[facility]@ Allergies: Aripiprazole, Gluten meal, Haloperidol, Metoclopramide, Olanzapine, Prochlorperazine, and Promethazine, Immunizations: Immunization History Administered Date(s) Administered COVID-19 Vaccine (12+ yrs, [employer]) mRNA, spike protein, LNP, pres. free, 30 mcg/0.3mL dose, lola-sucrose (ETO=945) 06/22/2024 Influenza, injectable, high dose seasonal, trivalent, preservative free (KQP=902) 06/22/2024 Tdap (FIW=034) 12/26/2024 PHYSICAL EXAM: Vital Signs: BP 106/66 [...] will likely refer to Dr. Guerin in [place] for definitive treatment and we will plan to obtain PET scan once definitive diagnosis obtained Thank you so much for allowing me to participate in the care of this patient. Please feel free to contact me if you have any questions or concerns. Reta Siegel MD [employer] Department of Otolaryngology - Head and Neck Surgery [facility], [facility] Pager: [phone] documented in this [id number] Discharge summary Author Mayra Clements [facility] Note Date/Time May 25, 2025 3: 19pm [facility] Physical Therapy [address] [place] [address] / REHABILITATION SERVICES DISCHARGE SUMMARY MR#: [id number] Acct: [id number] Name: GLENN PARADA Rep #: [id number] : 1945 80 From: Mayra Melton Referring Dr.: MARNI BOWSER Status: REG RCR Insurance: [employer] [facility] SELF PAY INSURANCE Discharge Summary D/C [...] please feel free to call me at [phone]. Thank you for the referral of thispatient. Sincerely, Mayra Clements, MPT Balance/Gait/Functional tests Balance/Special Test Scores Functional Gait Assessment Score: 21 % Disability: 30.0000 Lower Extremity Functional Score: 57 Improvement % Improvement: 25 <Electronically signed by Mayra Clements MPT> 05/25/25 1321 CC: Dr. Eloina Chi MD; MARNI BOWSER ~ Signed [facility] Work Phone: 1(622) 634-460808-12-2025 Discharge summary [facility] Physical Therapy [facility] [address] [facility] [place] [address] / REHABILITATION SERVICES DISCHARGE SUMMARY MR#: [id number] Acct: [id number] Name: GLENN PARADA Rep #: [id number] : 1945 80 From: Mayra Clements MP T Referring Dr.: MARNI BOWSER Status: REG RCR Insurance: [facility] SELF PAY INSURANCE Discharge Summary [...] please feel free to call me at [phone]. Thank you for the referral of thispatient. Sincerely, AMRITA Thompson Balance/Gait/Functional tests Balance/Special Test Scores Functional Gait Assessment Score: 21 % Disability: 30.0000 Lower Extremity Functional Score: 57 Improvement % Improvement: 05/25/25 1321 CC: Dr. Eloina Chi MD; MARNI BOWSER ~ Signed [facility]08-12-2025 Discharge summary Author Mayra Clements [facility] Note Date/Time May 25, 2025 3: 19pm [facility] Physical Therapy [facility] [address] [facility] [place] [address] / REHABILITATION SERVICES DISCHARGE SUMMARY MR#: [id number] Acct: [id number] Name: GLENN PARADA Rep #: [id number] : 1945 80 From: Mayra Melton Referring DrJaiden: MARNI BOWSER Status: REG RCR [facility] Discharge Summary [...] please feel free to call me at [phone]. Thank you for the referral of thispatient. Sincerely, AMRITA Thompson Balance/Gait/Functional tests Balance/Special Test Scores Functional Gait Assessment Score: 21 % Disability: 30.0000 Lower Extremity Functional Score: 57 Improvement % Improvement: 25 <Electronically signed by Mayra Clements MPT> 05/25/25 1321 CC: Dr. Eloina Chi MD; MARNI BOWSER ~ Signed [facility] Work Phone: 1(713) 899-826707-31-2025 NoteHey another davis referral. Patient is all scheduled.The [facility]07-21-2025 Radiology Diagnostic study note [facility] Imaging Services [address] [place] [address] Soft Tissue Neck WITH Contrast MR#: [id number] Acct: [id number] Name: GLENN PARADA DEV Rep #: [id number] : 1945 M 80 From: Vero Arroyo MD PCP: Dr. Eloina Chi MD Status: REG CL I Study:Soft Tissue Neck WITH Contrast Date of Exam: 05/03/25 Exam# [id number] Ordering Dr: Anusha Ward MD PROCEDURE: SOFT [...] exhibit central ulceration. The dimensions at a entry level account representative axial level are about 2.4 x [...] lymphadenopathy on the left side [facility] CC: Dr. Eloina Chi MD; Dr. Anusha Ward MD ~ [employer]: Signed [facility]07-21-2025 Telephone encounter Note* Telephone Encounter - Vicente Linder MA - 05/03/2025 7:54 AM EDT Faxed rehab evaluation to [facility] and confirmation received [facility]07-21-2025 Miscellaneous Notes* Telephone Encounter - Vicente Linder MA - 05/03/2025 7:54 AM EDT Faxed rehab evaluation to [facility] and confirmation received documented in this encounterUniversity Hospitals [facility]06-26-2025 Instructions* Patient Instructions* Aries Sarabia APRN.ROLL EDGE STITCHER HAND - 04/08/2025 3:43 PM EDT It was [...] ONLY IF THIS IS OK with your court interpreter/primary care provider. Otherwise, do not do this. [...] or you can send a message through [employer]. You can also now schedule and select appointments through [employer]. Aries Sarabia APRN.ROLL EDGE STITCHER HAND From the Parkinson's Foundation: [email or web address]://www.parkinson.org What Can [...] can make phlegm worse. documented in this encounterUniversity Hospitals [facility]ar[facility] Center06-26-2025 History of Present illness Narrative* Aries Sarabia APRN.CNP - 04/08/2025 3:00 PM EDT [facility] - FOLLOW UP EVALUATION Primary Movement Disorders Neurologist: Amisha Sarabia MD Primary Movement Disorders FER: Aries Sarabia CNP Recording using ambient AI software for draft documentation of the visit was discussed with the patient/authorized entry level account representative; all questions welcomed and answered. Patient/authorized entry level account representative agreed to proceed Eloina Chi MD [facility] [address] [facility] [address] Dear Eloina Chi MD: I had the [...] Neurology Office Visit from 09/21/2024 in [facility] T Score 42.3 50.8 [...] ONLY IF THIS IS OK with your court interpreter/primary care provider. Otherwise, do not do this. [...] or around: 10/08/25 Level of service : 75389 ( 30-39 min). Time spent 32 min on the day of service, which included preparing to see the patient, [id number] patient care, completing clinical documentation, obtaining and/or reviewing separately obtained history, performing a medically appropriate examination, and counseling and educating the patient/family/caregiver. Aries Sarabia APRN.ROLL EDGE STITCHER HAND * Maurice Carr MA - 04/07/2025 11:41 [...] population and warrants attention documented in this encounterUniversity Hospitals Samar[facility] Center06-26-2025 NoteHNO ID: [id number] Author: ARIES SARABIA APRN.CNP Service: ? Author Type: Nurse Practitioner Type: Progress Notes Filed: 04/12/2025 20:47 Note Text: [facility] - FOLLOW UP EVALUATION Primary Movement Disorders Neurologist: Amisha Sarabia MD Primary Movement Disorders FER: Aries Sarabia CNP Recording using ambient AI software for draft documentation of the visit was discussed with the patient/authorized entry level account representative; all questions welcomed and answered. Patient/authorized entry level account representative agreed to proceed Eloina Chi MD [facility] [address] [facility] [address] Dear Eloina Chi MD: I had the [...] the following table s (more content not included)...[facility]06-25-2025 NoteHNO ID: [id number] Author: MAURICE CARR MA Service: ? Author Type: Trench Digger Type: Progress Notes Filed: 04/12/2025 20:47 Note [...] 1 SD worse than population and warrants attentionK[facility]05-13-2025 Miscellaneous Notes* Telephone Encounter - Ana Laura Schwab - 02/23/2025 9:58 AM EDT Request from patient requesting refill. Please E-Scribe to [facility]. Last OV: 09/21/24 with [facility] Future OV: 04/08/25 with Aries Requested Prescriptions Pending Prescriptions Disp Refills propranolol (INDERAL) 20 mg tablet 60 tablet 11 Sig: Take 1 tablet by mouth every 12 hours. Ana Laura Lopez documented in this encounterUniversity Hospitals Samaritan Medical Center05-13-2025 Telephone encounter Note * Telephone Encounter - Ana Laura Schwab - 02/23/2025 9:58 AM EDT Request from patient requesting refill. Please E-Scribe to [facility]. Last OV: 09/21/24 with [facility] Future OV: 04/08/25 with Aries Requested Prescriptions Pending Prescriptions Disp Refills propranolol (INDERAL) 20 mg tablet 60 tablet 11 Sig: Take 1 tablet by mouth every 12 hours. Ana Laura Lopez [facility]03-15-2025 Radiology Diagnostic study note [facility] Imaging Services [address] [place] [address] Hand Min 3 Views MR#: [id number] Acct: [id number] Name: GLENN PARADA DEV Rep #: [id number] : 1945 M 79 From: Rena King MD PCP: Dr. Eloina Chi MD Status: REG ER Study:Hand Min 3 Views Date of Exam: Exam# [id number] Ordering Dr: Carlos Dennis MD PROCEDURE: HAND [...] Dennis MD; Dr. Eloina Chi MD ~ Vp Corporate Development: Signed [facility]03-15-2025 Radiology Diagnostic study note [facility] Imaging Services [address] [place] [address] Spine Cervical without Contras MR#: [id number] Acct: [id number] Name: GLENN PARADA DEV Rep #: [id number] : 1945 M 79 From: Zeb Alvarado MD PCP: Dr. Eloina Chi MD Status: REG ER Study:Spine Cervical without Contras Date of Exam: 12/26/24 Exam# [id number] Ordering Dr: Carlos Dennis MD PROCEDURE: SPINE [...] use of iterative reconstruction technique). Reading Location: [facility] [place] CC: Dr. Carlos Dennis MD; Dr. Eloina Chi MD ~ Vp Corporate Development: Signed [facility]03-15-2025 Radiology Diagnostic study note [facility] Imaging Services [address] [place], [place] [address] Brain/Head without Contrast MR#: [id number] Acct: [id number] Name: GLENN PARADA DEV Rep #: [id number] : 1945 M 79 From: Zeb Alvarado MD PCP: Dr. Eloina Chi MD Status: REG ER Study:Brain/Head without Contrast Date of Exa m: 12/26/24 Exam# [id number] Ordering Dr: Carlos Dennis MD EXAM: BRAIN/HEAD [...] acute traumatic findings. Senescent changes. Reading Location: [facility] [place] CC: Dr. Carlos Dennis MD; Dr. Eloina Chi MD ~ Vp Corporate Development: Signed [facility]12-22-2024 Evaluation note* Diagnosis Onset Date Resolution Status Admit Date Cat bite acute October 04, 2024 8:05am [facility] Work Phone: [phone] Instructions* Patient Instructions* Stephan Macario MD - 09/21/2024 5:05 PM EST Take an extra Sinemet 25/100 CR at bedtime. Decrease to propranolol to 10mg twice daily for one week then discontinue. Return to clinic in 6 months. documented in this encounterUniversity Hospitals Samaritan Medical Center12-09-2024 NoteHNO ID: [id number] Author: AMISHA SARABIA MD Service: ? Author Type: Physician Type: Progress Notes Filed: 10/04/2024 19:14 Note Text: [facility] - FOLLOW UP EVALUATION Eloina Chi MD [address] [facility] [address] Dear Eloina Chi MD: I had the [...] Row Office Visit from 09/21/2024 in [facility] Office Visit from 06/25/2024 in [facility] [...] (2 mg) by mouth (more content not included)...[facility]12-09-2024 History of Present illness Narrative* Amisha Sarabia MD - 09/21/2024 4:00 PM EST [facility] - FOLLOW UP EVALUATION Eloina Chi MD [address] [facility] [address] [facility] [address] Dear Eloina Chi MD: I had the [...] Row Office Visit from 09/21/2024 in [facility] Office Visit from 06/25/2024 in [facility] [...] pathological reflexes: Crossed adductor present. Coordination Right: Ghwozd-gn-ddfb normal. Hsaf-hd-xxfo normal.Left: Kxwmrh-ah-byew normal. Icop-lx-vbhd normal. Gait Casual gait is normal including [...] < 50 would be worse than predicted, tjvekt92 would be near predicted and > 50 [...] plan. Amisha Sarabia MD documented in this encounterUniversity Hospitals Samaritan Medical Center10-29-2024 Telephone encounter Note * Telephone Encounter - Jael Ch RN - 08/11/2024 11:29 AM EDT Spoke with nurse Naomi Davis, she discussed with Dr. Chi and received approval to wean down or discontinue propranolol. [facility]10-29-2024 Miscellaneous Notes* Telephone Encounter - Jael Ch [...] left for return call. documented in this encounterUniversity Hospitals Samaritan Medical Center10-28-2024 Telephone encounter Note * Telephone Encounter - [...] No answer. Message left for return call. [facility]10-17-2024 Instructions* Patient Instructions* Phoebe Chamberlain MD - 07/30/2024 2:32 PM EDT - Stop Motegrity. - No Linzess. - Stop Senna - Miralax twice per day; - If you have diarrhea, then decrease Miralax to once per day. - If you still have constipation, then increase Miralax to three times per day. - Use enema once every day. documented in this encounterUniversity Hospitals Samaritan Medical Center10-17-2024 NoteHNO ID: [id number] Author: PHOEBE CHAMBERLAIN MD Service: ? Author [...] Phoebe Chamberlain MD DATE: 07/30/24 TIME: 1:56 [facility]10-17-2024 History of Present illness Narrative* Phoebe Chamberlain [...] 07/30/24 TIME: 1:56 PM documented in this encounterUniversity Hospitals Samaritan Medical Center09-12-2024 Instructions* Patient Instructions* Aries Sarabia APRN.CNP - 06/25/2024 4:05 PM EDT documented in this encounterUniversity Hospitals Samaritan Medical Center09-12-2024 History of Present illness Narrative* Aries Sarabia APRN.CNP - 06/25/2024 4:00 PM EDT [facility] - FOLLOW UP EVALUATION Eloina Chi MD [address] [facility] [address] Dear Eloina Chi MD: I had the [...] as well as a recipe from the [facility]. Cognition: We will check a screening in the future At your convenience, please provide us with a copy of your advanced directives (living will and durable power of workers compensation defense attorney for healthcare): By Email: Send your document(s) to as an attachment in either PDF, TIFF, or JPEG format. By Mail: [facility] Information Management, Ab7 Advance Directive Processing [address] [place], [place] [address] By In person at any [facility] location Please note: You can use the address or fax number regardless of which [facility] you utilize, and we will make [...] to me they had tickets for the [employer] at their [facility] and needed to leave so next [...] 5 mg 1 Level of service : 48588 ( 30-39 min). Time spent 34 min on the day of service, which included preparing to see the patient, wvmn-oc-lwfw patient care, completing clinical documentation, obtaining and/or reviewing separately obtained history, performing a medically appropriate examination, counseling and educating the patient/family/caregiver, and ordering medications, tests, or procedures. Aries Sarabia APRN.GARY documented in this encounterUniversity Hospitals Samaritan Medical Center06-04-2024 Instructions* Patient Instructions* Aries Sarabia APRN.CNP - [...] as well as a recipe from the [facility]. Cognition: We will check a screening in the future At your convenience, please provide us with a copy of your advanced directives (living will and durable power of workers compensation defense attorney for healthcare): By Email: Send your document(s) to as an attachment in either PDF, TIFF, or JPEG format. By Mail: [facility] Information Management, Ab7 Advance Directive Processing [address] [place], [place] [address] By In person at any [facility] location Please note: You can use the address or fax number regardless of which [facility] you utilize, and we will make sure it is filed appropriately. Movement Disorders Medication Schedule: Medications 6AM 1130AM 6PM 9PM Sinemet 25/100 CR 1 1 1 Propranolol 20 mg 1 1 Melatonin 5 mg 1 Return at or around: 06/17/24 If there are any concerns before your next visit, please call or you can send a message through kinkon. You can also now schedule and select appointments through kinkon. Aries Sarabia APRN.ROLL EDGE STITCHER HAND Constipation and Other Gastrointestinal Problems in Parkinson's [...] future constipation. Treatments fall into two categories: xkhe-oxv-vlpbklt and prescription therapies. Remember: consult with your [...] day and your own convenience and preference. Zlke-gmc-Tkxtsvc Products Twtu-hlm-hcxuqom treatments for constipation can be purchased at [...] It also comes as a capsule (Senna Mayland Smooth Move ). ving with PD Constipation [...] easier to pass. These can be used fpc but should not be used in combination [...] after other remedies have failed. Among the oyia-aqe-rjjdpnr laxatives, they are most likely to cause [...] psyllium (Perdiem ). Common Side Effects of Fpbe-tci-Upzopcj Products for Constipation Emollient (Stool Softeners) Skin [...] any side effects listed. Prescription Products When heap-enx-xapwpbv remedies fail, your healthcare provider may recommend [...] Stimulant X Bisacodyl (Dulcolax ) Stimulant X Sterling Oil Stimulant X Cellulose (Unifiber ) Bulk [...] Docusate (Senokot ) Stimulant X Adapted from: [facility] Website, accessed February 07, 2016, www.Pint Please/[place] [place]/druginformation/ NF974689 Special Precautions For your safety, consult your [...] authors: Salvador Tafoya, Ph.D., R.N., and Danna Teran.Margaret., C.R.N.P. Constipation Tracker Day/Date Time Food(s) Eaten Activities Emotional Status Stool Description Feel free to photocopy this page and use it throughout the year to track your symptoms and share with your doctor. This is a patient education material provided by the Parkinson s Foundation. For more information and resources see https://www.parkinson.org/. [facility] is a Center of Excellence for the Parkinson s Foundation. documented in this encounterUniversity Hospitals Samaritan Medical Center06-04-2024 History of Present illness Narrative* Aries Sarabia APRN.ROLL EDGE STITCHER HAND - 03/17/2024 8:00 AM EDT CNR-MOVEMENT DISORDERS [...] as well as a recipe from the [facility] that often works as well in [...] well as a recipe from the [facility]. Cognition: We will check a screening in the future At your convenience, please provide us with a copy of your advanced directives (living will and durable power of workers compensation defense attorney for healthcare): By Email: Send your document(s) to [email or web address] as an attachment in either PDF, TIFF, or JPEG format. By Mail: [facility] Information Management, Ab7 Advance Directive Processing [address] [place], [place] [address] By In person at any [facility] location Please note: You can use the address or fax number regardless of which [facility] you utilize, and we will make sure it is filed appropriately. Updated Movement Disorders Medication Schedule: Medications 6AM 1130AM 6PM 9PM Sinemet 25/100 CR 1 1 1 Propranolol 20 mg 1 1 Melatonin 5 mg 1 Return at or around: 06/17/24 Level of service : 94884 (40-54 min). Time spent 41 min on the day of service, which included preparing to see the patient, ulvm-mj-abkw patient care, completing clinical documentation, obtaining and/or reviewing separately obtained history, performing a medically appropriate examination, counseling and educating the patient/family/caregiver, and ordering medications, tests, or procedures. Aries Sarabia APRN.ROLL EDGE STITCHER HAND documented in this encounterUniversity Hospitals Samaritan Medical Center03-07-2024 Instructions* Patient Instructions* Amisha Sarabia MD - [...] or you can send a message through kinkon. You can also now schedule and select appointments through kinkon. Amisha Sarabia MD documented in this encounterUniversity Hospitals Samaritan Medical Center03-07-2024 History of Present illness Narrative* Amisha Sarabia MD - 12/19/2023 2:15 PM EST [facility] - NEW PATIENT EVALUATION I had the pleasure of evaluating Mr. Parada in our clinic today. He is a 78 year old right-handed male who presents for evaluation of Parkinson's disease since 2021. Subjective HISTORY OF PRESENT ILLNESS: Initial HPI He just moved from [place], [place]. He started with shuffling gait and tremor in left hand and he was stated on on propranol which helped some with the tremor. He was better when the carbidopa/levodopa. He did some LSVT PT in [place] which has helped. He has not had [...] Right Plantar: downgoing Left Plantar: downgoing Coordination Squqwv-hr-jxbp, rapid alternating movements and wyar-cy-jtgk normal bilaterally without dysmetria. Gait Casual gait: [...] Sincerely, Amisha Sarabia MD documented in this encounterUniversity Hospitals Samaritan Medical CenterCondiley [facility] note Author Ginny Holm [facility] Note Date/Time June 30, 2025 9:59am [facility] Medical Records Department [address] [place] [address] Anesthesia Postop Eval I 06/30/25958 MR#: [id number] Acct: [id number] Name: GLENN PARADA DEV Rep #:[id number] : 1945 80 From: Ginny rehman CRNA PCP: Dr. Eloina Chi MD Status:REG SD C Y Race: C Location: [place] [address] Anesthesia: Postop Eval I Current Vital Signs [...] CRNA Cosigner Signature: Date CC: ~ Signed [facility] Work Phone: Consult note Author Julia Carter [facility] Note Date/Time July 30, 2025 8 :57pm [facility] Medical Records Department [address] [place] [address] Pharmacokinetic/Renal -Consult 07/30/252054 MR#: [id number] Acct: [id number] Name: GLENN PARADA DEV Rep #:[id number] [...] Estimated Creatinine Clearance Estimated Creatinine Clearance: 69.2 ML/CA Pharmacy Plan for Drug Dosing Pharmacy Plan [...] Signature (if applicable): Date CC: ~ Signed [facility] Work Phone: Consult note Author Smooth Fall [facility] Note Date/Time July 31, 2025 7 :46am [facility] Medical Records Department [address] [facility] [place] [address] Consultation - Sash Maker 07/31/25 0328 MR#: [id number] Acct: [id number] Name: GLENN PARADA DEV Rep #:[id number] [...] removed his port access, whichwas re-accessed successfully. [facility] Medical History Encounter for education Wears glasses [...] 1,000 mg soluble 1,000 mg PO QD-QID TN N electrolyte 07/26/25 Unknown Rx tablet replenishment [...] mls @ 15 mls/hr 07/30/25 20:31 IV .[id number] PRN Saline Flush Sodium Chloride 250 mls @ 15 mls/hr 07/30/25 20:31 IV .[id number] PRN Additional IVPB Infusion Vancomycin HCl 750 mg/ Sodium 265 mls @ 250 mls/hr 07/31/25 06:30 Chloride IV Q12H [facility] Levothyroxine Sodium 50 mcg 07/31/25 06:00 Levothyroxine 50 Mcg Tablet PO DAILY@0600 [facility] Lidocaine/Diphenhydr/Alum/Mg/Simeth 15 ml 07/30/25 20:44 Bmx Liquid 180 Ml PO 4X/DAY PRN PRN Pain Score 1-10 Lidocaine/Prilocaine 1 gm 07/30/25 20:42 Lidocaine/Prilocaine Hcl 5 Gm Tube TOPICAL X1 PRN PORT ACCESS Protocol Nitroglycerin 0.4 mg 07/30/25 20:30 Nitroglycerin (Inpatient Use) 0.4 Mg Tab.Subl SL Q5M PRN CARDIAC/CHEST PAIN Non-Formulary Medication 2 mg 07/31/25 10:00 Prucalopride [Motegrity] PO DAILY [facility] Ondansetron HCl 4 mg 07/30/25 20:30 Ondansetron 4 Mg/2 Ml Vial IV Q8H PRN PRN NAUSEA/VOMITING Pantoprazole Sodium 40 mg 07/30/25 20:30 07/30/25 21:26 Pantoprazole Sodium 40 Mg Tablet PO 40 mg DAILY [facility] Administration Senna 1 tablet 07/30/25 20:30 Senna [...] 0.4 Mg Capsule PO Not Given BID [facility] Vancomycin Protocol 1 lab 08/01/25 05:00 Vancomycin [...] 45.1 L, Lymph % (Auto) 45.1 H, Highlands % (Auto) 7.8, Eos % (Auto) 0.0, [...] Clarity Clear, Urine pH 7.0, Ur Specific [place] 1.010, Urine Protein Negative, Urine Glucose (UA) [...] 18:25 IMPRESSION: No Acute Findings. Reading Location: [facility] Chest CTA 07/30/25 22:16 IMPRESSION: Right lower [...] ICU at 12:33 a.m. EST. Reading Location: [place] [address] Assessment and Plan . Assessment and plan: [...] applicable): CC: Dr. Eloina Chi MD~ Signed [facility] Work Phone: Consult note Author Brady Longoria [facility] Note Date/Time August 04, 2025 1 :07pm [facility] Medical Records Department [address] [place] [address] Pharmacokinetic/Renal -Consult 08/01/25 1034 MR#: [id number] Acct: [id number] Name: GLENN PARADA DEV Rep #:[id number] : 1945 80 From: Brady Aparicio [facility] PCP: Dr. Eloina Chi MD Status:ADM [...] 08/01/25 1034 <Electronically signed by Brady Salmeron [facility]> Date _ Brady Longoria [facility] Cosigner Signature (if applicable): Date CC: ~ Signed [facility] Work Phone: Consult note Author Simone Collins [facility] Note Date/Time August 02, 2025 2 :01pm [facility] [address] [place] [address] Consultation - Oncology IP 08/02/25 1339 MR#: [id number] Acct: [id number] Name: GLENN PARADA DEV Rep #:[id number] [...] Do you have a Healthcare Power of Dealer Sales Manager?: Yes [facility] Medical History Encounter for education Wears glasses [...] 1,000 mg soluble 1,000 mg PO QD-QID TN N electrolyte 07/26/25 Unknown Rx tablet replenishment [...] (Auto) 56.1, Lymph % (Auto) 18.7 L, Highlands % (Auto) 19.6 H, Eos % (Auto) [...] 18:25 IMPRESSION: No Acute Findings. Reading Location: [facility] Chest CTA 07/30/25 22:16 IMPRESSION: Right lower [...] ICU at 12:33 a.m. EST. Reading Location: [place] [address] 08/02/25 1401 <Electronically signed by Simone Collins MD> CC: Dr. Eloina Chi MD ~ Signed [facility] Work Phone: Consult note Author Alan Galaviz [facility] Note Date/Time August 02, 2025 3 :49pm [facility] Medical Records Department [address] [place] [address] Consultation - Infectious Dx 08/02/25 1546 MR#: [id number] Acct: [id number] Name: GLENN PARADA DEV Rep #:[id number] [...] performed and neg except as noted above. [facility] Medical History Encounter for education Wears glasses [...] 1,000 mg soluble 1,000 mg PO QD-QID TN N electrolyte 07/26/25 Unknown Rx tablet replenishment [...] Freq: Status: Active Protocol: Document 07/31/25 11:30 [facility] (Rec: 07/31/25 11:30 [facility] [id number]) Nutrition Malnutrition Evidence of Yes Malnutrition Exists [...] (Auto) 56.1, Lymph % (Auto) 18.7 L, Highlands % (Auto) 19.6 H, Eos % (Auto) [...] applicable): CC: Dr. Eloina Chi MD~ Signed [facility] Work Phone: Consult note Author Ranulfo Kraus [facility] Note Date/Time August 02, 2025 1 1:30pm [facility] Medical Records Department [address] [place] [address] Pharmacokinetic/Renal -Consult 08/02/250 MR#: [id number] Acct: [id number] Name: GLENN PARADA DEV Rep #:[id number] : 1945 80 From: Ranulfo Lubin od PCP: Dr. Eloina Chi MD Status:ADM IN Y Location: [place] [address] Consult Antibiotic Management Pharmacy has been consulted [...] Signature (if applicable): Date CC: ~ Signed [facility] Work Phone: Consult note Author Patricia Allen [facility] Note Date/Time August 04, 2025 2 :56pm [facility] Medical Records Department [address] [place] [address] Counseling Note - Pharmacy 08/04/25 1448 MR#: [id number] Acct: [id number] Name: GLENN PARADA DEV Rep #:[id number] : 1945 80 From: Patricia Allen PCP: Dr. Eloina Chi MD Status:DIS IN Y Location: [place] [address] [facility] has performed discharge [...] 08/04/25 08/04/25 1456 <Electronically signed by Patricia Allen> Date _ Patricia Allen Cosigner Signature (if applicable): Date CC: ~ Signed [facility] Work Phone: Consult note Author Patricia Allen [facility] Note Date/Time August 04, 2025 3 :56pm [facility] Medical Records Department [address] [place] [address] Counseling Note - Pharmacy 08/04/25 1448 MR#: [id number] Acct: [id number] Name: GLENN PARADA DEV Rep #:[id number] : 1945 80 From: Patricia Allen PCP: Dr. Eloina Chi MD Status:DIS IN Y Location: [place] [address] [facility] has performed discharge [...] tab G-tube BID #0 tabs 08/04/25 08/04/25 2416 <Electronically signed by Patricia Allen> Date _ Patricia Mcbride Signature (if applicable): Date CC: ~ Signed [facility] Work Phone: Discharge summary Author Kalyn Ng [facility] Note Date/Time June 30, 2025 9:51am [facility] Medical Records Department [address] [place] [address] Instructions for Home/Discharge Instructions 06/30/25 0948 MR#: [id number] Acct: [id number] Name: GLENN PARADA DEV Rep #:[id number] [...] Care Provider: Eloina Chi Instructions Print Language: Ukrainian Discharge Orders/Prescriptions Prescriptions: Continued levothyroxine 50 mcg [...] CC: Dr. Eloina Chi MD ~ Signed [facility] Work Phone: Discharge summary Author Dev Reardon [facility] Note Date/Time August 04, 2025 1 0:43am [facility] Medical Records Department [address] [place] [address] Instructions for Home/Discharge Instructions 08/04/25 1036 MR#: [id number] Acct: [id number] Name: GLENN PARADA DEV Rep #:[id number] [...] Mejia; Chester Sharpe; En Guerin; Jayashree Anderson LANDSCAPE MANAGER Discharge Orders/Prescriptions Prescriptions: New chlorhexidine gluconate 0.12 [...] can be placed): Home Health Service 08/04/25 9691<Electronically signed by Dev Reardon MD>Dev Reardon MD CC: MELISSA Anderson; Dr. Vicente Schofield MD; Dr. Marco Carrero MD; Dr. Tez Obando MD; Dr. Eloina Chi MD; Dr. Jamarcus Tao MD; Dr. Jamarcus Vaz MD; Dr. Vaughn Garudno DO; Dr. Sundar Reid MD; Dr. Marya [...] MD; Dr. Debbie Frausto MD ~ Signed [facility] Work Phone: Discharge summary Author Dev Reardon [facility] Note Date/Time August 04, 2025 1 1:56am [facility] Medical Records Department [address] [place] [address] Discharge Summary 08/04/25 1043 MR#: [id number] Acct: [id number] Name: GLENN PARADA DEV Rep #:[id number] : 1945 80 From: Dev Segovia PCP: Dr. Eloina Chi MD Status:ADM IN Location: [place] [address] Providers Date of Admission: 07/30/25 Date of Discharge: 08/04/25 Primary Care Physician: Eloina Chi MD Consultations 07/30/25 20:30 Consult: Sash Maker / Pulmonary Medicine Routine Consulting Provider: Intensivists/Pulmonary [...] 08/02/25 08:24 Consult: Oncology/Hematology Routine Consulting Provider: *[facility]) Reason for Consult: neutropenic [...] 18:25 IMPRESSION: No Acute Findings. Reading Location: [facility] Chest CTA 07/30/25 22:16 IMPRESSION: Right lower [...] 07/31/25 11:30 SLA (Rec: 07/31/25 11:30 SLA [id number]) Nutrition Malnutrition Evidence of Yes Malnutrition Exists [...] Omer Woods; Efrem Tanner; Hiral Carlin; ShayleeCarlos; Dhesi,Beltran; Marilee Orourke; Narendra,Marisol; Martinez,Zaira; Maparag,Samih; Russell Leach; Turfe,Ihsan; Romaine,Spenser; Jordan,Nelida; Robert Kessler; Jamarcus Tao; Simone Collins; Jonathan Curtis; Maryjo Nichole; Alan Childress; Angel Mejia; Chester Sharpe; En Guerin; Jayashree Anderson LANDSCAPE MANAGER Discharge Orders/Prescriptions Prescriptions: New chlorhexidine gluconate 0.12 [...] Health Service Charges/Coding Visit Charges Inpatient E&M: 72111 Disch Hosp >30min 08/04/25 1156 <Electronically signed by Dev Reardon MD> Cosigner Signature (if applicable): CC: Dr. Eloina Chi MD; Dr. Simone Collins MD; Dr. Dev Reardon MD; Dr. Carlitos MD~ Signed [facility] Work Phone: evaluation note* Diagnosis Onset Date Resolution Status Contusion of back wall of thorax acute [facility] Work Phone: evaluation note* Diagnosis Parkinson's disease without dyskinesia, with fluctuating manifestations (HCC)- Primary documented in this encounter [facility] note* Diagnosis Parkinson's disease without dyskinesia or fluctuating manifestations (HCC)- Primary Orthostatic hypotension Constipation, unspecified constipation type documented in this encounter [facility] note* Diagnosis Orthostatic hypotension- Primary Parkinson's disease without dyskinesia, with fluctuating manifestations (HCC) [facility]* Diagnosis Constipation, unspecified constipation type- Primary Intestinal malabsorption, unspecified type documented in this encounter [facility]* Diagnosis Parkinson's disease without dyskinesia or fluctuating manifestations (HCC)- Primary Cognitive and behavioral changes Other signs and symptoms involving cognition documented in this encounter [facility] noteNo assessment information [facility] Work Phone: evaluation note* Diagnosis Parkinson's disease without dyskinesia, with fluctuating manifestations (HCC)- Primary Orthostatic hypotension Sialorrhea Disturbance of salivary secretion [facility] Diagnosis Tonsillar mass Swelling, mass, or lump in head and neck [facility] Diagnosis Tonsillar mass- Primary Swelling, mass, or lump in head and neck 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 [facility] Medical History Encounter for education Wears glasses [...] 1,000 mg soluble 1,000 mg PO QD-QID TN N electrolyte 07/26/25 Unknown Rx tablet replenishment [...] (Auto) 45.1 L, Lymph % (Auto) 45.1H, Highlands % (Auto) 7.8, Eos % (Auto) 0.0, [...] Clarity Clear, Urine pH 7.0, Ur Specific [place] 1.010, Urine Protein Negative, Urine Glucose (UA) Normal, UrineKetones 5 H, Urine Occult Blood 10 H, Urine Nitrite Negative, Urine Bilirubin Negative, Urine Urobilinogen Normal, Ur Leukocyte Esterase Negative Imaging Radiology Impression Chest X-Ray 07/30/25 18:25 IMPRESSION: No Acute Findings. Reading Location: [facility] Assessment & Plan Assessment/Plan (1) Encephalopathy acute: [...] him to be full code. * Total drlu-ru-yulw time 17 minutes. Charges/Coding Visit Charges Inpatient E&M: 69667 Init Hosp L3 Procedures Hospitalists Procedures: 77680 Advncd Care Plan 30 Min 07/31/25 0654 <Electronically signed by Rain Gallagher MD> Cosigner Signature (if applicable): CC: Dr. Eloina Chi MD; Dr. Rain Gallagher MD~ Signed [facility] Work Phone: Hospital Discharge instructions Additional Instructions Skyn-woy-ejsnvlz medications as needed for pain. Return with new or worsening symptoms.[facility] Work Phone: Hospital Discharge instructionsAmbulatory Orders* General Surgery Location: None Selected * Nutrition Referral Location: None Selected * Oncology Location: None Selected * Speech Therapy Referral Location: None Selected [facility] Work Phone: Hospital Discharge instructionsAmbulatory Orders* Home Health Location: None Selected [facility] Work Phone: Progress note Author Simone Collins [facility] Note Date/Time July 05, 2025 9:06am [facility] [place] [address] OFFICE VISIT Date of Service: 07/05/25 0836 MR#: [id number] Acct: [id number] Name: GLENN PARADA DEV Rep #: [id number] : 1945 From: Simone Collins MD Age/Sex: 80/M Location: [facility] Status: Signed with Addenda ADDENDUM by Dr. [...] He was referred to Dr. Siegel at [facility], had left tonsil biopsy on 05/28/2025, [...] and 3. He was referred to Dr. iSegel at [facility], had left tonsil biopsy on 05/28/2025, [...] He was referred to Dr. Siegel at [facility], had left tonsil biopsy on 05/28/2025, pathology showed Invasive squamous cell carcinoma, HPV positive. Chemoradiation therapy was suggested as definitive treatment. [facility] Medical History Encounter for education Wears glasses [...] applicable) CC: Dr. Eloina Chi MD ~ [facility] Work Phone: Progress note Author En Guerin [facility] Note Date/Time July 07, 2025 2:24pm [facility] [address] [address] OFFICE VISIT Date of Service: 07/07/25 1359 MR#: [id number] Acct: [id number] Name: GLENN PARADA Rep #: [id number] : 1945 From: En smallwood DO Age/Sex: 80/M Location: [facility] Status: Signed Intake Vital Signs 07/05/25 11:46 [...] at any time. 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 Status: Signed HPI Subjective Date of Service [...] He was referred to Dr. Siegel at [facility], had left tonsil biopsy on 05/28/2025, [...] N/V, numbness/tingling, and swelling of his extremities. [facility] Medical History Encounter for education Wears glasses [...] 07/12/25 0950 <Electronically signed by Jayashree juarez LANDSCAPE MANAGER LANDSCAPE MANAGER-C> Date _ Jayashree Anderson LANDSCAPE MANAGER LANDSCAPE MANAGER-C Cosigner Signature: Date (if applicable) CC: ~ [facility] Work Phone: Progress note Author Elizabeth Sexton [facility] Note Date/Time July 12, 2025 1:50pm [facility] [address] [place] [address]. [address] [place] [address] OFFICE VISIT Date of Service: 07/12/25 MR#: [id number] Acct: [id number] Name: GLENN PARADA DEV Rep #: [id number] : 1945 Provider: DIVYA Sexton Age/Sex: 80/M Location: [facility] Status: Signed Intake Vital Signs 06/30/25 07:23 [...] percutaneous endoscopic gastrostomy (PEG) tube placement Z93.1 [facility] Medical History Encounter for education Wears glasses [...] no skin breakdown Follow-up as needed 07/12/25 6203 <Electronically signed by Elizabeth GARCIAS PA-C> Date _ Elizabeth Mcbride Signature: Date (if applicable) CC: Dr. Eloina Chi MD ~ [facility] Work Phone: Progress note Author En Guerin [facility] Note Date/Time July 14, 2025 1: 54pm [facility] [address] [address] OFFICE VISIT Date of Service: 07/14/258 MR#: [id number] Acct: [id number] Name: GLENN PARADA DEV Rep #: [id number] : 1945 From: En smallwood DO Age/Sex: 80/M [place] [facility] Status: Signed Intake Vital Signs 07/05/25 11:46 [...] at any time. 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 07/14/25 1409 <Electronically signed by En Guerin DO> Date _ En Guerin DO Cosigner Signature: Date (if applicable) CC: ~ [facility] Work Phone: Progress note Author Simone Collins [facility] Note Date/Time July 19, 2025 8: 56am [facility] [address] [address] OFFICE VISIT Date of Service: 07/19/25 0823 MR#: [id number] Acct: [id number] Name: GLENN PARADA DEV Rep #: [id number] : 1945 From: Simone Collins MD Age/Sex: 80/M Location: [facility] Status: Signed HPI Subjective Date of Service [...] He was referred to Dr. Siegel at [facility], had left tonsil biopsy on 05/28/2025, pathology showed Invasive squamous cell carcinoma, HPV positive. Began definitive chemoradiation with carboplatin/paclitaxel on 07/05/25. Comes for C3. Feels well. [facility] Medical History Encounter for education Wears glasses [...] applicable) CC: Dr. Eloina Chi MD ~ [facility] Work Phone: Progress note Author En Guerin [facility] Note Date/Time July 21, 2025 1: 52pm [facility] [place] [address] [place] [address] OFFICE VISIT Date of Service: 07/21/25 1329 MR#: [id number] Acct: [id number] Name: GLENN PARADA DEV Rep #: [id number] : 1945 From: En smallwood DO Age/Sex: 80/M Location: [facility] Status: Signed Intake Vital Signs 07/05/25 11:46 [...] at any time. 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 07/21/25 1352 <Electronically signed by En Guerin DO> Date _ En Kebedeigncristina Signature: Date (if applicable) CC: ~ [facility] Work Phone: Progress note Author Simone Collins [facility] Note Date/Time July 26, 2025 9 :38am [facility] [address] [place] [address] OFFICE VISIT Date of Service: 07/26/25 0836 MR#: [id number] Acct: [id number] Name: GLENN PARADA DEV Rep #: [id number] : 1945 From: Simone Collins MD Age/Sex: 80/M Location: [facility] Status: Signed HPI Subjective Date of Service [...] He was referred to Dr. Siegel at [facility], had left tonsil biopsy on 05/28/2025, pathology showed Invasive squamous cell carcinoma, HPV positive. Began definitive chemoradiation with carboplatin/paclitaxel on 07/05/25. Comes for C4. Feels well. Fell when he was getting out of bed. [facility] Medical History Encounter for education Wears glasses [...] 1,000 mg soluble 1,000 mg PO QD-QID TN N electrolyte 07/26/25 07/28/25 Rx tablet replenishment [...] applicable) CC: Dr. Eloina Chi MD ~ [facility] Work Phone: Progress note Author En Truong [facility] Note Date/Time July 28, 2025 1 1:58am [facility] [address] [address] OFFICE VISIT Date of Service: 07/28/25 1133 MR#: [id number] Acct: [id number] Name: PARADARAKANGLENN DEV Rep #: [id number] : 1945 From: En smallwood DO Age/Sex: 80/M Location: [facility] Status: Signed Intake Vital Signs 07/05/25 11:46 [...] 1,000 mg soluble 1,000 mg PO QD-QID TN N electrolyte 07/26/25 1 Rx tablet replenishment #30 tabs Have you fallen in the past year?: Yes Central Venous Access Central Venous Access: Yes Port/PICC: Port PFSH [facility] Medical History Encounter for education Wears glasses [...] 1,000 mg soluble 1,000 mg PO QD-QID TN N electrolyte 07/26/25 Unknown Rx tablet replenishment [...] at any time. 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 Eloina Chi MD Status:ADM IN [facility] Reason for Visit Chief Complaint: fever [...] (Auto) 45.1 L, Lymph % (Auto) 45.1H, [place] % (Auto) 7.8, Eos % (Auto) 0.0, [...] Clarity Clear, Urine pH 7.0, Ur Specific [place] 1.010, Urine Protein Negative, Urine Glucose (UA) [...] % (Auto) 68.4, Lymph % (Auto) 19.9, [place] % (Auto) 8.1, Eos % (Auto) 0.7, Baso % (Auto) 2.2 H, Absolute Neuts (auto) 0.9 L, Absolute Lymphs (auto) 0.27 L, Nucleated RBC % 0, Differential Comment SCANNED, [place] Cells 1+, Sodium 138, Potassium 3.0 L, [...] 18:25 IMPRESSION: No Acute Findings. Reading Location: [facility] Chest CTA 07/30/25 22:16 IMPRESSION: Right lower [...] ICU at 12:33 a.m. EST. Reading Location: [place] [address] Physical Exam Narrative Seen and examined Patient [...] (Auto) 45.1 L, Lymph % (Auto) 45.1H, [place]lands % (Auto) 7.8, Eos % (Auto) 0.0, [...] Clarity Clear, Urine pH 7.0, Ur Specific [place] 1.010, Urine Protein Negative, Urine Glucose (UA) [...] % (Auto) 68.4, Lymph % (Auto) 19.9, [place]lands % (Auto) 8.1, Eos % (Auto) 0.7, [...] 18:25 IMPRESSION: No Acute Findings. Reading Location: [facility] Chest CTA 07/30/25 22:16 IMPRESSION: Right lower [...] ICU at 12:33 a.m. EST. Reading Location: [place] [address] Charges/Coding Visit Charges Inpatient E&M: 53819 Subs Hosp L3 07/31/25 5689 <Electronically signed by Dev Reardon MD> Cosigner Signature (if applicable): CC: ~ Signed [facility] Work Phone: Progress note Author Sundar Reid [facility] Note Date/Time July 31, 2025 1 1:43am [facility] Medical Records Department [address] [place] [address] Progress Note - Sash Maker 07/31/25 1134 MR#: [id number] Acct: [id number] Name: GLENN PARADA DEV Rep #:[id number] [...] 00:03 Clarify Order NOTE Not Given CLARIFY [facility] Enoxaparin Sodium 70 mg 07/31/25 01:00 07/31/25 [...] mls @ 15 mls/hr 07/30/25 20:31 IV .[id number] PRN Saline Flush Sodium Chloride 250 mls @ 15 mls/hr 07/30/25 20:31 IV .[id number] PRN Additional IVPB Infusion Vancomycin HCl 750 [...] mg 07/31/25 10:00 Prucalopride [Motegrity] PO DAILY [facility] Ondansetron HCl 4 mg 07/30/25 20:30 Ondansetron 4 Mg/2 Ml Vial IV Q8H PRN PRN NAUSEA/VOMITING Pantoprazole Sodium 40 mg 07/30/25 20:30 07/30/25 21:26 Pantoprazole Sodium 40 Mg Tablet PO 40 mg DAILY [facility] Administration Senna 1 tablet 07/30/25 20:30 Senna [...] 0.4 Mg Capsule PO Not Given BID [facility] Vancomycin Protocol 1 lab 08/01/25 05:00 Vancomycin Trough/Random Due [facility] 08/01/25 07:00 DAILY [facility] Medical Records Data Medical Nutrition Assessment Dietitian: Malnutrition Criteria Met Start: 07/31/25 11:30 Freq: Status: Active Protocol: Document 07/31/25 11:30 SLA (Rec: 07/31/25 11:30 [facility] [id number]) Nutrition Malnutrition Evidence of Yes Malnutrition Exists [...] 45.1 L, Lymph % (Auto) 45.1 H, [place] % (Auto) 7.8, Eos % (Auto) 0.0, [...] Clarity Clear, Urine pH 7.0, Ur Specific [place] 1.010, Urine Protein Negative, Urine Glucose (UA) [...] % (Auto) 68.4, Lymph % (Auto) 19.9, [place] % (Auto) 8.1, Eos % (Auto) 0.7, Baso % (Auto) 2.2 H, Absolute Neuts (auto) 0.9 L, Absolute Lymphs (auto) 0.27 L, Nucleated RBC % 0, Differential Comment SCANNED, [place] Cells 1+, Sodium 138, Potassium 3.0 L, [...] 18:25 IMPRESSION: No Acute Findings. Reading Location: [facility] Chest CTA 07/30/25 22:16 IMPRESSION: Right lower [...] ICU at 12:33 a.m. EST. Reading Location: [place] [address] Assessment and Plan . Assessment and plan: [...] for chemotherapy hold. * oral care and [facility] to evaluate for swallowing Metastatic Oropharyngeal Cancer [...] Cosigner Signature (if applicable): CC: ~ Signed [facility] Work Phone: Progress note Author Dev Reardon [facility] Note Date/Time August 01, 2025 8 :47am [facility] Medical Records Department [address] [place] [address] Progress Note - Hospitalist 08/01/25 0823 MR#: [id number] Acct: [id number] Name: GLENN PARADA DEV Rep #:[id number] : 1945 80 From: Dev Segovia PCP: Dr. Eloina Chi MD Status:ADM IN Location: ICU [place] [address] 3-1 Reason for Visit Chief Complaint: fever [...] Document 07/31/25 11:30 SLA (Rec: 07/31/25 11:30 [facility] [id number]) Nutrition Malnutrition Evidence of Yes Malnutrition Exists [...] Not Reportable, Lymph % (Auto) Not Reportable, [place] % (Auto) Not Reportable, Eos % (Auto) [...] Not Reportable, Lymph % (Auto) Not Reportable, [place] % (Auto) Not Reportable, Eos % (Auto) [...] 18:25 IMPRESSION: No Acute Findings. Reading Location: [facility] Chest CTA 07/30/25 22:16 IMPRESSION: Right lower [...] ICU at 12:33 a.m. EST. [facility] Charges/Coding Visit Charges Inpatient E&M: 51387 Subs Hosp L3 08/01/25 0847 <Electronically signed by Dev Reardon MD> Cosigner Signature (if applicable): CC: ~ Signed [facility] Work Phone: Progress note Author Sundar Reid [facility] Note Date/Time August 01, 2025 2 :33pm [facility] Medical Records Department [address] [place] [address] Progress Note - Sash Maker 08/01/25 1431 MR#: [id number] Acct: [id number] Name: GLENN PARADA DEV Rep #:[id number] [...] 07/30/25 20:31 07/31/25 20:04 IV 15 mls/hr .[id number] PRN Administration Saline Flush Sodium Chloride 250 mls @ 15 mls/hr 07/30/25 20:31 07/31/25 20:05 IV 15 mls/hr .[id number] PRN Administration Additional IVPB Infusion Vancomycin HCl [...] 0.4 Mg Capsule PO Not Given BID [facility] Tbo-Filgrastim 300 mcg 08/02/25 10:00 Tbo-Filgrastim 300 Mcg/0.5 Ml Ml SC 08/05/25 10:01 DAILY [facility] Vancomycin Protocol 1 lab 08/02/25 19:30 Vancomycin Trough/Random Due [facility] 08/02/25 21:30 DAILY [facility] Medical Records Data Medical Nutrition Assessment Dietitian: Malnutrition Criteria Met Start: 07/31/25 11:30 Freq: Status: Active Protocol: Document 07/31/25 11:30 SLA (Rec: 07/31/25 11:30 SLA [id number]) Nutrition Malnutrition Evidence of Yes Malnutrition Exists [...] Not Reportable, Lymph % (Auto) Not Reportable, [place] % (Auto) Not Reportable, Eos % (Auto) [...] Review May foll, Platelet Estimate SLT DEC, [place] Cells 1+, Sodium 135, Potassium 2.6 L*, [...] Cosigner Signature (if applicable): CC: ~ Signed [facility] Work Phone: Progress note Author Dev Reardon [facility] Note Date/Time August 02, 2025 8 :32am [facility] Medical Records Department [address] [place] [address] Progress Note - Hospitalist 08/02/25 0826 MR#: [id number] Acct: [id number] Name: GLENN PARADA DEV Rep #:[id number] : 1945 80 From: Dev Segovia PCP: Dr. Eloina Chi MD Status:ADM IN [facility] Reason for Visit Chief Complaint: fever [...] Freq: Status: Active Protocol: Document 07/31/25 11:30 [facility] (Rec: 07/31/25 11:30 [facility] [id number]) Nutrition Malnutrition Evidence of Yes Malnutrition Exists [...] (Auto) 56.1, Lymph % (Auto) 18.7 L, [place] % (Auto) 19.6 H, Eos % (Auto) [...] (Auto) 56.1, Lymph % (Auto) 18.7 L, [place] % (Auto) 19.6 H, Eos % (Auto) [...] 18:25 IMPRESSION: No Acute Findings. Reading Location: [facility] Chest CTA 07/30/25 22:16 IMPRESSION: Right lower [...] ICU at 12:33 a.m. EST. Reading Location: [place] [address] Charges/Coding Visit Charges Inpatient E&M: 73832 Subs Hosp L3 08/02/25 0832 <Electronically signed by Dev Reardon MD> Cosigner Signature (if applicable): CC: ~ Signed [facility] Work Phone: Progress note Author Dev Reardon [facility] Note Date/Time August 03, 2025 5 :22pm [facility] Medical Records Department [address] [place] [address] Progress Note - Hospitalist 08/03/25 1719 MR#: [id number] Acct: [id number] Name: GLENN PARADA DEV Rep #:[id number] : 1945 80 From: Dev Segovia PCP: Dr. Eloina Chi MD Status:ADM IN Location: [place] [address] Reason for Visit Chief Complaint: fever Objective [...] Document 07/31/25 11:30 SLA (Rec: 07/31/25 11:30 [facility] [id number]) Nutrition Malnutrition Evidence of Yes Malnutrition Exists [...] ICU at 12:33 a.m. EST. Reading Location: [place] [address] Charges/Coding Visit Charges Inpatient E&M: 70502 Subs Hosp L2 08/03/25 1722 <Electronically signed by Dev Reardon MD> Cosigner Signature (if applicable): CC: ~ Signed [facility] Work Phone: Progress note Author En Guerin [facility] Note Date/Time August 04, 2025 2 :55pm [facility] [address] [place] [address] OFFICE VISIT Date of Service: 08/04/25 1343 MR#: [id number] Acct: [id number] Name: GLENN PARADA DEV Rep #: [id number] : 1945 From: En smallwood DO Age/Sex: 80/M [place] [facility] Status: Signed Intake Vital Signs 07/05/25 11:46 [...] any time. ? 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 08/04/25 1425 <Electronically signed by En Guerin DO> Date _ En Guerin DO Cosigner Signature: Date (if applicable) CC: ~ [facility] Work Phone: Reason for referral (narrative)No reason for referral [facility] Work Phone: Reason for visit Narrative* Diagnostic X-Ray (Routine) - Closed Specialty Diagnoses / Procedures Referred By Americo melton Referred To Contact Radiology Diagnoses Tonsillar mass Procedures CT NEURO IMAGE IMPORT(JOHNATHAN) DOWNLOAD POWERSHARE IMAGES TO Reta Garces MD [address] [place] [address] Phone: tel: fax: [facility] [address] [place] [address] [place] [address] Phone: tel: Referral ID Status Reason Start Date Expiration Date Visits Re quested Visits Authorized [id number] Closed 05/14/2025 05/14/2026 1 1 [facility] Chief Complaint and Reason for Visit [...] COMPLEX 45 MINS Amisha Sarabia MD [address] [place] [address] [facility] [place] [address] [place], [place] [id number] Referral ID Status Reason Start Date Expiration Date Visits Requested Visits Authorized [id number] Pending Review Auto-Generat ed Referral 12/19/2023 12/18/2024 1 1 Specialty Diagnoses / Procedures Referred By Contac t Referred To Contact Diagnoses Parkinson's disease without dyskinesia, with fluctuating manifestations (HCC) Procedures PROVIDER ORDERED FOLLOW UP OFFICE/OUTPATIENT NEW HIGH [place] [address] [place], [place] [id number] Referral ID Status Reason Start Date Expiration Date Visits Requested Visits Authorized [id number] Authorized PCP Requested Referral 12/19/2023 03/18/2024 1 1 Specialty Diagnoses / Procedures Referred By Contac t Referred To Contact Diagnoses Parkinson's disease without dyskinesia or fluctuating manifestations (HCC) Procedures PROVIDER ORDERED FOLLOW UP OFFICE/OUTPATIENT NEW [facility]DM 60 MINUTES Aries Sarabia APRN.CNP [address] [place], [place] [id number] Referral ID Status Reason Start Date Expiration Date Visits Requested Visits Authorized [id number] Authorized PCP Requested Referral 06/17/2024 03/17/2025 1 1 Specialty Diagnoses / Procedures Referred By Contac t Referred To Contact Diagnoses Parkinson's disease without dyskinesia or fluctuating manifestations (HCC) Procedures PROVIDER ORDERED FOLLOW UP OFFICE/OUTPATIENT NEW [facility] [place]DM [place] [address] [place], [place] [id number] Referral ID Status Reason Start Date Expiration Date Visits Requested Visits Authorized [id number] Authorized PCP Requested Referral 03/22/2025 09/21/2025 1 1 Advance Directives Advance Directive Response Recorded Date/ Time Living Will No December 26, 2024 5:19pm Power of Dealer Sales Manager Yes December 26 5:19pm Name of Medical Power of Dealer Sales Manager Janel Parada December 26, 2024 5:19pm Advance Directive Response Recorded Date/ Time Living Will No December 26, 2024 5:19pm Do you have a Healthcare Power of Dealer Sales Manager? Yes December 26, 2024 5:19pm Name of Medical Power of Dealer Sales Manager Janel Parada December 26, 2024 5:19pm Advance Directive Response Recorded Date/ Time Do you have a Healthcare Power of Dealer Sales Manager? Yes June 24, 2025 8:12am Advance Directive Response Recorded Date/ Time Do you have a Healthcare Power of Dealer Sales Manager? Yes June 24, 2025 8:12am Advance Directives on File Yes Freddyori jger 2024 9:10am Living Will No July 12, 2025 9:10am Do you have a Healthcare Power of Dealer Sales Manager? Yes July 12, 2025 9:10am Name of Medical Power of Dealer Sales Manager Janel- July 12, 2025 9:10am Advance Directives Yes June 9:10am Advance Directive Response Recorded Date/ Time Do you have a Healthcare Power of Dealer Sales Manager? Yes June 24, 2025 8:12am Advance Directives on File Yes Octob er 2024 9:09am Living Will No July 19 9:09am Do you have a Healthcare Power of Dealer Sales Manager? Yes July 19, 2025 9:09am Name of Medical Power of Dealer Sales Manager Janel- July 19, 2025 9:09am Advance Directives Yes July 19, 2025 9:09am Advance Directive Response Recorded Date/ Time Do you have a Healthcare Power of Dealer Sales Manager? Yes June 24, 2025 8:12am Do you have a Healthcare Power of Dealer Sales Manager? No August 07, 2025 5:52am Advance Directives on File Yes Octob er 2024 9:53am Living Will No July 26 9:53am Do you have a Healthcare Power of Dealer Sales Manager? Yes July 26, 2025 9:53am Name of Medical Power of Dealer Sales Manager Janel- July 26, 2025 9:53am Advance Directives Yes July 26, 2025 9:53am Do you have a Healthcare Power of Dealer Sales Manager? Yes August 02, 2025 1:42pm Name of Medical Power of Dealer Sales Manager Janel, July 30, 2025 8:47pm Advance Directive Response Recorded Date/ Time Do you have a Healthcare Power of Dealer Sales Manager? Yes June 24, 2025 7:12am Do you have a Healthcare Power of Dealer Sales Manager? No August 07, 2025 4:52am Advance Directives on File Yes Octob 2024 8:53am Living Will No July 26 8:53am Do you have a Healthcare Power of Dealer Sales Manager? Yes July 26, 2025 8:53am Name of Medical Power of Dealer Sales Manager Janel- July 26, 2025 8:53am Advance Directives Yes July 26, 2025 8:53am Do you have a Healthcare Power of Dealer Sales Manager? Yes August 02, 2025 12:42pm Name of Medical Power of Dealer Sales Manager Janel, July 30, 2025 7:47pm Summary Purpose [...] Primary Care Provider, Attending Prov ider Active Cannery Tender Engineer Relationship Specialty Start Date End Date Eloina Chi MD [address] [place], [place] [phone] PCP - General Internal Medicine 05/15/24 Cannery Tender Engineer Relationship Specialty Start Date End Date Eloina Chi MD [address] [facility] [address] [place], [place] [phone] PCP - General Internal Medicine 05/15/24 Cannery Tender Engineer Relationship Specialty Start Date End Date Eloina Chi MD [address] [place], [place] [id number] PCP - General Internal Medicine 05/15/24 Cannery Tender Engineer Relationship Specialty Start Date End Date Eloina Chi MD [address] [place], [place] [phone] PCP - General Internal Medicine 05/15/24 Cannery Tender Engineer Relationship Specialty Start Date End Date Eloina Chi MD [address] [place] [facility] [address] [place], [place] [phone] PCP - General Internal Medicine 05/15/24 Cannery Tender Engineer Relationship Specialty Start Date End Date Eloina Chi MD [address] [facility] [address] [place], [place] [phone] PCP - General Internal Medicine 05/15/24 Team Status: Inactive Member Role Status Dates Eloina Chi MD Primary Care Provider Active St art: October 04, 2024 End: October 04, 2024 Eloina Chi MD Referring Provider Active Start : October 04, 2024 End: October 04, 2024 Ranulfo Gaspar LANDSCAPE MANAGER, LANDSCAPE MANAGER-C Attending Provider Active S tart: October 04, 2024 End: October 04, 2024 Team Status: Inactive Member Role Status Dates Eloina Chi MD Primary Care Provider Active St art: December 26, 2024 End: December 26, 2024 Carlos Dennis MD Emergency Provider Active Star t: December 26, 2024 End: December 26, 2024 Cannery Tender Engineer Relationship Specialty Start Date End Date Eloina Chi MD [address] [place] [facility] [address] [place], [place] [phone] PCP - General Internal Medicine 05/15/24 Cannery Tender Engineer Relationship Specialty Start Date End Date Eloina Chi MD [address] [facility] [address] [place], [place] [phone] PCP - General Internal Medicine 05/15/24 Cannery Tender Engineer Relationship Specialty Start Date End Date Eloina Chi MD [address] [place] [facility] [address] [place], [place] [id number] PCP - General Internal Medicine 05/15/24 Team [...] End: June 28, 2025 Jayashree Anderson NP, LANDSCAPE MANAGER-C Attending Provider Active Start: June 28, 2025 [...] 2025 End: June 28, 2025 Jayashree Anderson LANDSCAPE MANAGER, LANDSCAPE MANAGER-C Attending physician Active Start: June 28, 2025 [...] 2025 End: July 12, 2025 Jayashree Anderson LANDSCAPE MANAGER, LANDSCAPE MANAGER-C Attending physician Active Start: July 12, 2025 [...] 19, 2025 End: July 19, 2025 Dr. Smione Collins MD Attending physician Active Start: July [...] Team Status: Active Member Role/Relationship Status Slime Cih MD Primary [...] 30, 2025 End: August 04, 2025 Dr. Heather Velarde MD [...] 30, 2025 End: August 04, 2025 Dr. Simone Collins MD [...] 2025 End: August 04, 2025 Dr. En uGerin , Nurse Practitioner Active Start: July 30, 2025 End: August 04, 2025 Jayashree Anderson LANDSCAPE MANAGER, LANDSCAPE MANAGER-C Nurse Practitioner Active Start: July 30, 2025 [...] S tart: August 02, 2025 Jayashree Anderson LANDSCAPE MANAGER, LANDSCAPE MANAGER-C Nurse Practitioner Active Start: August 02, 2025 [...] Active Start: August 02, 2025 Jayashree Anderson LANDSCAPE MANAGER, LANDSCAPE MANAGER-C Nurse Practitioner Active Start: August 02, 2025 [...] Active Start: August 03, 2025 Dr. Zaira Henriquez MD Nurse Practitioner [...] Active Start: August 03, 2025 Jayashree Anderson LANDSCAPE MANAGER, LANDSCAPE MANAGER-C Nurse Practitioner Active Start: August 03, 2025 [...] Active St art: August 04, 2025 Dr. Iani Obrien MD Nurse Practitioner Active Start: August [...] Active Start: August 04, 2025 Jayashree Anderson LANDSCAPE MANAGER, LANDSCAPE MANAGER-C Nurse Practitioner Active Start: August 04, 2025 [...] physician Active Start: August 10, 2025 Dr. Jmaarcus Mercedes MD Nurse Practitioner Active Start: August [...] Physician Active Start: August 10, 2025 Dr. aJmarcus Moran DO Admitting physician Active Start: August 10, 2025 Dr. Jamracus Moran DO Nurse Practitioner Active Start: August [...] or prosecute any alcohol or drug abuse patient.[facility] Center[facility] the event this information is protected by the Federal Confidentiality of Alcohol and Drug Abuse Patient Records regulations: The Federal rules restrict any use of the information to criminally investigate or prosecute any alcohol or drug abuse patient.[facility] CenterIn the event this information is protected by the Federal Confidentiality of Alcohol and Drug Abuse Patient Records regulations: The Federal rules restrict any use of the information to criminally investigate or prosecute any alcohol or drug abuse patient.[facility] CenterIn the event this information is protected by the Federal Confidentiality of Alcohol and Drug Abuse Patient Records regulations: The Federal rules restrict any use of the information to criminally investigate or prosecute any alcohol or drug abuse patient.[facility] CenterIn the event this information is protected by the Federal Confidentiality of Alcohol and Drug Abuse Patient Records regulations: The Federal rules restrict any use of the information to criminally investigate or prosecute any alcohol or drug abuse patient.[facility] CenterIn the event this information is protected by the Federal Confidentiality of Alcohol and Drug Abuse Patient Records regulations: The Federal rules restrict any use of the information to criminally investigate or prosecute any alcohol or drug abuse patient.[facility] CenterIn the event this information is protected by the Federal Confidentiality of Alcohol and Drug Abuse Patient Records regulations: The Federal rules restrict any use of the information to criminally investigate or prosecute any alcohol or drug abuse patient.[facility] CenterIn the event this information is protected by the Federal Confidentiality of Alcohol and Drug Abuse Patient Records regulations: The Federal rules restrict any use of the information to criminally investigate or prosecute any alcohol or drug abuse patient.[facility] CenterIn the event this information is protected by the Federal Confidentiality of Alcohol and Drug Abuse Patient Records regulations: The Federal rules restrict any use of the information to criminally investigate or prosecute any alcohol or drug abuse patient.[facility] CenterIn the event this information is protected by the Federal Confidentiality of Alcohol and Drug Abuse Patient Records regulations: The Federal rules restrict any use of the information to criminally investigate or prosecute any alcohol or drug abuse patient.[facility] CenterIn the event this information is protected by the Federal Confidentiality of Alcohol and Drug Abuse Patient Records regulations: The Federal rules restrict any use of the information to criminally investigate or prosecute any alcohol or drug abuse patient.[facility] CenterIn the event this information is protected by the Federal Confidentiality of Alcohol and Drug Abuse Patient Records regulations: The Federal rules restrict any use of the information to criminally investigate or prosecute any alcohol or drug abuse patient.[facility] Reason for Visit (unrecogniz ed section and content) Reason Comments New Patient Parkinson's Disease Reason Comments Follow Up Parkinson's Disease Reason Comments Parkinsons Disease Specialty Diagnoses / Procedures Referred By Americo melton Referred To Contact Diagnoses Parkinson's disease without dyskinesia, with fluctuating manifestations (HCC) Procedures PROVIDER ORDERED FOLLOW UP OFFICE/OUTPATIENT [facility] 60 MINUTES Amisha Sarabia MD [address] [place] [address] Referral ID Status Reason Start Date Expiration Date V isits Requested Visits Authorized [id number] Closed PCP Requested Referral 12/19/2023 03/18/2024 1 [...] PROVIDER ORDERED FOLLOW UP OFFICE/OUTPATIENT [facility] 60 MINUTES Amisha Sarabia MD [address] [place] [address] Phone: tel: fax: Referral ID Status Reason Start Date Expiration Date V isits Requested Visits Authorized [id number] Closed PCP Requested Referral 03/22/2025 09/21/2025 1 1 Reason Comments Orders Reason Comments New patient, to establish relationship Reason Comments oropharyngeal SCCa Reason Comments Patient Update (unrecognized sect ion and content) No Status Records FoundNo Status Records FoundNo Status Records Found INFORMATION SOURCE (unrecogn ized section and content) DATE CREATED AUTHOR 06/13/2025 [employer] DATE CREATED AUTHOR AUTHOR'S ORGANIZ ATION 07/21/2025 [facility] DATE CREATED AUTHOR AUTHOR'S ORGANIZ ATION 08/22/2025 [facility] FOR RECORDS PERTAINING TO PATIENTS WHO [...] BE BASED ON THE PRIMARY CLINICAL RECORDS. [employer] [facility]. provides no warranty or guarantee of the accuracy or completeness of information in this document.
== END 2025-09-28 22:49 | disposition home or self-care (01) ==
PROVIDERS: Emergency Provider Emergency Medicine; PCP Family Medicine; Visit Provider Emergency Medicine
DX: R21 Rash and other nonspecific skin eruption (principal); B35.6 Tinea cruris; Z87.891 Personal history of nicotine dependence; Z86.718 Personal history of other venous thrombosis and embolism; K21.9 Gastro-esophageal reflux disease without esophagitis; Z79.01 Long term (current) use of anticoagulants
CPT/HCPCS: 99282

== ENCOUNTER 2025-10-11 14:37 | Outpatient (RCR) | payer MEDICARE, SELFPAY | END 2025-10-13 23:59 | LOC: NS 14:37 | PROVIDERS: PCP Family Medicine; Referring Provider Student in an Organized Health Care Education/Training Program; Visit Provider Student in an Organized Health Care Education/Training Program | DX: Z71.3 Dietary counseling and surveillance (principal); C10.9 Malignant neoplasm of oropharynx, unspecified | CPT/HCPCS: 97803 ==